=== PATIENT | female | born 1985 | race Caucasian/White ===

== ENCOUNTER 2017-07-01 09:30 | Outpatient (RCR) | payer MEDICAID, SELFPAY ==
--- NOTE | 2017-02-15 11:26 | HP.PTEVAL_ITS ---
Patient's Visit Information GLEN DESAI is a 31 year old F referred to Physical Therapy by Chela Sheridan DO with a diagnosis of L biceps tenodesis and subacromial decompression. Date of Evaluation: 02/15/17 Physical Therapist: Tamir Quesada PT, - Visit Plan Frequency: 2-3x /Week Duration: 2 Months Plan: L shoulder phase I protocal for 2 weeks, then progress to AROM and strengthening when appropriate. cp for pain - Subjective Subjective: DOS: 01/26/17. Pt reports having L shoulder pain since May of 2016. Pt reports she had multiple xrays and mRI's throughout. Pt notes she had multiple injections and PT prior to having this surgery. Pt reports she is glad to have had the surgery now. Pt reports only mild pain in the shoulder region. Most of her pain is in the L biceps region. Pt reports she has been doing nothing ex alves up to this point as she was given no HEP up to this point. Pt reports she has had a frozen shoulder in the past, and is worried to get another one. Pt has occasional T or N in L UE at this time, depending on how she moves her arm. Sig sleep diff secondary to pain. Pt is ambidextrious with UE 's. 4/10 at rest, 10/10 at worst (performing IADL's) - Pain L shoulder Pain Intensity (Out of 10): 4 Pain Intensity Range: 10 - Objective Neuro: Pt's L C6 and C6 dermatones are hyposensitive to light touch. Otherwise, B UE are WNL to light touch. ROM: R shoulder flex= 162, abd= 165, ER= 65, IR WNL. L shoulder PROM flex= 80, abd= 30, ER= 15. Observation: Incisions healing well. No signs of infection. MMT: R UE 5/5 throughout. L shoulder not tested - Goals Goal 1:: Decrease L shoulder pain x 50% to aid with sleep Goal Time Frame: 6-8 Weeks Goal 2:: Increase L shoulder strength x 1 grade to aid with IADL's Goal Time Frame: 6-8 Weeks Goal 3:: Increase L shoulder ROM flex and abd to equal R shoulder to aid with IADL's Goal Time Frame: 6-8 Weeks Goal 4:: I with HEP Goal Time Frame: 6-8 Weeks - Rehabilitation Potential Physical Therapy Diagnosis: L shoulder pain, weakness, and decreased ROM secondary to L biceps tenodesis Rehabilitation Potential: Good - Anticipated Interventions Patient/Client Instruction: Educate patient on: Condition, Plan of Care For the Purpose of:: To improve self management Therapeutic Exercise to Include: Strength training, Endurance training, Postural training, Flexibilty training, Passive ROM, Active ROM, Scapular Strength/Stabilization For the Purpose of:: To decrease pain, To increase ROM, To improve muscle performance and motor function Cryotherapy (ice pack, ice massage): Yes For the Purpose of:: To decrease pain Thank you for the opportunity to evaluate your patient. For Medicare and Medicare HMO plans, please review the plan of care and approve it. It will need to be FAXED BACK to us at [phone] for Medicare purposes. Please let me know if there are questions or concerns regarding this plan of care. Physician Signature: Date:
--- NOTE | 2017-07-01 10:15 | HP.PTDCSUM ---
HP - PT D/C Summary It has been my pleasure to treat GLEN DESAI under orders from Chela Sheridan DO, for the diagnosis of L biceps tenodesis and subacromial decompression for a total of 29 visit(s). Discharge Date: Please see the following information for a summary of their discharge status. - Subjective Subjective: Pt reports she had all of her testing done to confirm TOS this date. Pt reports no improvements through this date - Pain L shoulder Pain Intensity (Out of 10): 8 - Overall Improvement % Improvement: 50 - Objective Objective/Function: L shoulder pain is still 8/10. ROM is limited to 90 degrees with flex and abd in AROM. Strength is 2/5. Pt is I with HEP - Goals Goal 1:: Decrease L shoulder pain x 50% to aid with sleep Goal Progress: Not Progressing Goal 2:: Increase L shoulder strength x 1 grade to aid with IADL's Goal Progress: Not Progressing Goal 3:: Increase L shoulder ROM flex and abd to equal R shoulder to aid with IADL's Goal Progress: Not Progressing Goal 4:: I with HEP Goal Progress: Goal Met - Plan Plan: Discontinue - D/C Information If there are questions or concerns regarding this patient's physical therapy, please feel free to call me at [phone]. Thank you for the referral of this patient. Sincerely, Tamir Quesada, PT,
== END 2017-07-01 19:00 | disposition home or self-care (01) ==
LOC: PT 09:30
PROVIDERS: Family Provider Family Medicine; PCP Family Medicine; Visit Provider Orthopaedic Surgery
DX: M75.22 Bicipital tendinitis, left shoulder (principal)
CPT/HCPCS: 97110; 97140; 97161; 97530

== ENCOUNTER 2017-09-06 12:16 | Emergency (ER) | payer MEDICAID, SELFPAY ==
[2017-09-06 12:17] VITALS: BP 141/92; PULSE 72; RESP 16; TEMP 36.9; O2SAT 99; BMI 34.1
--- NOTE | 2017-09-06 12:30 | ED.VISSUMM ---
- ER Visit Summary Date of Service: 09/06/17 Chief Complaint: Left shoulder pain History of Present Illness: The patient is a 32 F who has left shoulder pain. She has had this chronically but recently has been getting worse. It sharp. She had a history of a biceps tendon tear that was repaired by Dr. Sheridan. She has had pain ever since then but today it is worse. She tried ibuprofen without any relief. She has seen multiple specialists after her surgery due to the continued pain but there is no diagnosis. Physical Examination: Vital signs reviewed. Left shoulder is tender over the bicipital groove. No bony tenderness. She has decreased range of motion secondary to pain. Color of the left arm is the same as the right. Sensation pulses are intact Test Results: None indicated Emergency Department Course and Treatment: She will be treated with Toradol here. I will give her Dolobid for home. She needs to follow-up with orthopedics for further testing. I do not feel any x-rays are needed as there is no new trauma. Treatment Plan: [] Disposition: Discharge Impression: Left shoulder pain This note was generated with [employer] dictation software. It may contain incorrect words, spelling, and punctuation that were not noted in review of the chart prior to signing ED Disposition - Plan for ED Patient: Chief Complaint: Upper Extremity Injury Referrals: Scot Hunt MD [Primary Care Provider] -
--- NOTE | 2017-09-06 12:31 | ED.DEP ---
ED Disposition - Plan for ED Patient: Disposition: Home or Assisted Living Chief Complaint: Upper Extremity Injury Instructions: ED Shoulder Pain [facility] Prescriptions: Diflunisal [Dolobid] 500 mg PO TID #21 tab Referrals: Scot Hunt MD [Primary Care Provider] -
[2017-09-06] MEDS: Ketorolac 60 MG/2 ML Vial IM (12:41)
== END 2017-09-06 13:41 | disposition home or self-care (01) ==
PROVIDERS: Emergency Provider Emergency Medicine; Family Provider Internal Medicine; PCP Internal Medicine
DX: M25.512 Pain in left shoulder (principal); G89.29 Other chronic pain; J45.909 Unspecified asthma, uncomplicated; E78.00 Pure hypercholesterolemia, unspecified; F43.10 Post-traumatic stress disorder, unspecified; Z79.899 Other long term (current) drug therapy
CPT/HCPCS: 96372; 99281

== ENCOUNTER 2017-11-23 10:00 | Outpatient (RCR) | payer MEDICAID, SELFPAY ==
--- NOTE | 2017-10-19 15:52 | HP.PTEVAL_ITS ---
Patient's Visit Information GLEN DESAI is a 32 year old F referred to Physical Therapy by Isiah Mcarthur MD with a diagnosis of L shoulder pain. Date of Evaluation: 10/19/17 Physical Therapist: Tamir Quesada PT, - Visit Plan Frequency: 2-3x /Week Duration: 4-6 Weeks Plan: L shoulder AROM ex's, pulleys, rot cuff strengthening, scap stab, UBE, and HEP - Subjective Subjective: Pt reports she has had L shoulder pain for 1 1/2 years. Pt reports she had surgery to repair a SLAP tear in L shoulder and arthroscopy to clean shoulder out. Pt reports she has never really gotten better from that. Pt reports she has been taking pain management for the past several months, but the meds have made her sick. R hand dom. occasional T or N in L shoulder depending on how she moves it. Pt reports she has an MRI on October 26 for her L shoulder. sleep diff secondary to pain. Pt reports she is limited from any overhead lifting. 8/10 at rest, and pain is constant - Pain L shoulder Pain Intensity (Out of 10): 8 - Objective Neuro: B UE sensation WNL to light touch. B bicepital reflex= 2/3. Palpation: Pt is very tender throughout the distribution of the rot cuff test. ROM: R shoulder flex= 165, abd= 170, ER= 65, IR WNL; L shoulder flex= 40, abd= 20, ER= 10, IR severely limited. MMT: L shoulder 2-/5 throughout and painful with all testing. R shoulder 5/5. Special tests: unable to perform secondary to limited ROM - Goals Goal 1:: Decrease L shoulder pain x 50% to aid with sleep Goal Time Frame: 4-6 Weeks Goal 2:: Increase L shoulder strength x 1 grade to aid with IADL's Goal Time Frame: 4-6 Weeks Goal 3:: Increase L shoulder flex and abd ROM x 50 degrees to aid with overhead lifting Goal Time Frame: 4-6 Weeks Goal 4:: I with HEP Goal Time Frame: 4-6 Weeks - Rehabilitation Potential Physical Therapy Diagnosis: L shoulder pain, weakness, and limited ROM secondary to rot cuff pathology Rehabilitation Potential: Good - Anticipated Interventions Patient/Client Instruction: Educate patient on: Condition, Plan of Care For the Purpose of:: To improve self management Therapeutic Exercise to Include: Strength training, Endurance training, Flexibilty training, Active ROM, Scapular Strength/Stabilization For the Purpose of:: To decrease pain, To increase ROM, To improve muscle performance and motor function Cryotherapy (ice pack, ice massage): Yes Thank you for the opportunity to evaluate your patient. For Medicare and Medicare HMO plans, please review the plan of care and approve it. It will need to be FAXED BACK to us at [phone] for Medicare purposes. Please let me know if there are questions or concerns regarding this plan of care. Physician Signature: Date:
--- NOTE | 2017-11-23 10:36 | HP.PTDCSUM ---
HP - PT D/C Summary It has been my pleasure to treat GLEN DESAI under orders from Isiah Mcarthur MD, for the diagnosis of L shoulder pain for a total of 11 visit(s). Discharge Date: Please see the following information for a summary of their discharge status. - Subjective Subjective: Pt feels like she is still the same. No improvements - Pain L shoulder Pain Intensity (Out of 10): 8 - Objective Objective/Function: L shoulder pain 8/10. L shoulder MMT: L shoulder is grossly 4-/5 in available range and is sore with all tests. L shoulder ROM: flex= 92, abd= 50, ER= 15, IR severely limited. I with HEP. Pt is not progressing well toward Rx goals - Goals Goal 1:: Decrease L shoulder pain x 50% to aid with sleep Goal Progress: Not Progressing Goal 2:: Increase L shoulder strength x 1 grade to aid with IADL's Goal Progress: Not Progressing Goal 3:: Increase L shoulder flex and abd ROM x 50 degrees to aid with overhead lifting Goal Progress: Not Progressing Goal 4:: I with HEP Goal Progress: Goal Met - Plan Plan: Discontinue and RTD - D/C Information If there are questions or concerns regarding this patient's physical therapy, please feel free to call me at [phone]. Thank you for the referral of this patient. Sincerely, Tamir Quesada, PT,
== END 2017-11-23 19:00 | disposition home or self-care (01) ==
LOC: PT 10:00
PROVIDERS: Family Provider Internal Medicine; PCP Internal Medicine; Visit Provider Anesthesiology
DX: M25.512 Pain in left shoulder (principal)
CPT/HCPCS: 97035; 97110; 97161; 97530

== ENCOUNTER 2018-02-03 09:38 | Emergency (ER) | payer MEDICAID, SELFPAY ==
[2018-02-03 09:39] VITALS: BP 141/87; PULSE 95; RESP 18; TEMP 36.4; O2SAT 100; BMI 34.2
--- NOTE | 2018-02-03 09:53 | ED.VISSUMM ---
- ER Visit Summary Date of Service: 02/03/18 Chief Complaint: Right shoulder injury History of Present Illness: The patient is a 32 F with history of complex regional pain syndrome and prior orthopedic injury presents with right shoulder injury. Patient states that she was wrestling with her children. She states that her son, who is 150 pounds, knocked her over. She landed on the bed directly on her right shoulder. She did not strike her head. She denies loss of consciousness. She does describe a lot of tenderness over the shoulder joint. She had diminished range of motion secondary to pain. Physical Examination: Exam is relatively unremarkable. There is a well being female no acute distress. Examination of the shoulder, patient does have some tenderness over the right AC joint. There is no tenderness on the clavicle. She does have diminished range of motion of the shoulder secondary to pain. There is no evidence of bicep injury. Her axillary nerve is preserved. There is no gross laxity of the shoulder. The skin is intact. Pulses are normal distally. Test Results: [] Emergency Department Course and Treatment: The patient is mostly tender over her AC joint. I did obtain plain films of the shoulder. There is no acute fracture. She does have some calcific tendinitis. I do feel that this is more likely an AC joint separation. The patient be placed in a sling. She will be given 2 days of analgesics and will be continued on anti-inflammatories. She will be given outpatient follow-up with orthopedics. Treatment Plan: [] Disposition: Discharge Impression: 1. Right AC joint separation This note was generated with [employer] dictation software. It may contain incorrect words, spelling, and punctuation that were not noted in review of the chart prior to signing ED Disposition - Plan for ED Patient: Chief Complaint: Upper Extremity Injury Instructions: ED Sprain AC Joint Prescriptions: Hydrocodone Bitart/Apap 5-325 [[place] 5MG-325MG] 1 tab PO Q6H PRN PRN 3 Days #6 tab PRN Reason: Pain Naproxen [Naprosyn] 500 mg PO BID PRN #20 tab Referrals: Meera Dietrich MD [Primary Care Provider] - Chela Sheridan DO [STAFF PHYSICIAN] -
[2018-02-03] MEDS: HYDROcodone Bitartrate/Apap 5/325 Tablet PO (10:02)
--- NOTE | 2018-02-03 10:20 | RAD_ITS ---
STUDY: X-RAY - RIGHT SHOULDER REASON FOR EXAM: Female, 32 years old. Pain status post trauma TECHNIQUE: 2 view(s) of the shoulder. COMPARISON: None. FINDINGS: Normal glenohumeral articulation. Normal acromioclavicular joint. Normal acromion. Normal humeral head and visualized proximal humerus. There is periarticular soft tissue calcification consistent with a calcific tendinitis. There is no demonstrated fracture. Normal visualized pulmonary apex. RAD/Shoulder min 2 Views IMPRESSION: No fracture. Calcific tendinopathy of the rotator cuff. Electronically Signed: Mitchel Gilbert MD at 11:00 EDT , Service support ,
== END 2018-02-03 11:12 | disposition home or self-care (01) ==
LOC: ED 10:03
PROVIDERS: Emergency Provider Emergency Medicine; Family Provider Internal Medicine; PCP Internal Medicine
DX: S43.101A Unspecified dislocation of right acromioclavicular joint, initial encounter (principal); M75.31 Calcific tendinitis of right shoulder; W03.XXXA Other fall on same level due to collision with another person, initial encounter; Y93.72 Activity, wrestling; Y92.9 Unspecified place or not applicable; J45.909 Unspecified asthma, uncomplicated; Z79.899 Other long term (current) drug therapy; Z72.0 Tobacco use
CPT/HCPCS: 73030; 99283

== ENCOUNTER → 2018-02-20 11:28 | Outpatient (CLI) | payer MEDICAID, SELFPAY ==
--- NOTE | 2018-02-20 11:30 | RAD_ITS ---
STUDY: X-RAY - RIGHT SHOULDER REASON FOR EXAM: Female, 32 years old. Shoulder pain. Axillary view only TECHNIQUE: 1 view(s) of the shoulder. COMPARISON: None. FINDINGS: No acute findings noted on single axillary view only. RAD/Shoulder One View IMPRESSION: As above Electronically Signed: Jas Lopez DO at 10:07 EDT Tel , Service support ,
== END ==
PROVIDERS: Family Provider Internal Medicine; PCP Internal Medicine; Referring Provider Physician Assistant; Visit Provider Physician Assistant
DX: M25.511 Pain in right shoulder (principal)
CPT/HCPCS: 73020

== ENCOUNTER 2018-03-13 10:30 | Outpatient (RCR) | payer MEDICAID, SELFPAY ==
--- NOTE | 2018-03-01 10:20 | HP.PTEVAL_ITS ---
Patient's Visit Information GLEN DESAI is a 32 year old F referred to Physical Therapy by HOLLI Conn with a diagnosis of R rot cuff calcific tendonits. Date of Evaluation: 03/01/18 Physical Therapist: Tamir Quesada, PT, - Visit Plan Frequency: 2x /Week Duration: 2 Weeks Plan: Postural edu, rot cuff strengthening, scap stab ex's, UBE - Subjective Subjective: Pt reports she fell on her r shoulder 4 weeks ago after being tackled by her speciql needs child. Pt reports she went to the ER and had an xray. Pt reports the xrays revealed AC sprain and calcific tendinosis of the R rot cuff. Pt reports her pain has not improved since the DOI. Pt reports she can not lift overhead, dry her hair, and has sig difficulty with lifting heavy objects or cleaning her house. Pt reports she has sleep diff secondary to R shoulder pain. Pt reports she uses MH, CP, and ibuprophen to aid with decreasing her pain. Pt reports she hopes to just be able to decrease some of her pain with Rx. - Pain R shoulder Pain Intensity (Out of 10): 6 Pain Intensity Range: 10 - Objective Neuro: B UE sensation is WNL to light touch. B bicepital reflex= 2/3. Palpation: Pt is very sore to the lateral aspect of R shoulder near supraspinatus insertion. No obvious deformity. ROM: L shoulder flex= 125, abd= 105, ER= 5, IR WNL; R shoulder flex= 65, abd= 55, ER= 30, IR Mod limited. MMT: B UE's are grossly 2-/5 throughout. Special testing: Pos empty can sign. - Goals Goal 1:: I with HEP Goal Time Frame: 2 Weeks - Rehabilitation Potential Physical Therapy Diagnosis: Pt has R shoulder pain, weakness, and limited ROM secondary to R shoulder calcific tendonitis Rehabilitation Potential: Good - Anticipated Interventions Patient/Client Instruction: Educate patient on: Condition, Plan of Care For the Purpose of:: To improve self management Therapeutic Exercise to Include: Strength training, Endurance training, Postural training, Scapular Strength/Stabilization For the Purpose of:: To decrease pain, To increase ROM, To improve muscle performance and motor function Cryotherapy (ice pack, ice massage): Yes Ultrasound (thermal/non thermal): Yes For the Purpose of:: To decrease pain Thank you for the opportunity to evaluate your patient. For Medicare and Medicare HMO plans, please review the plan of care and approve it. It will need to be FAXED BACK to us at [phone] for Medicare purposes. Please let me know if there are questions or concerns regarding this plan of care. Physician Signature: Da te:
--- NOTE | 2018-03-13 11:33 | HP.PTDCSUM ---
HP - PT D/C Summary It has been my pleasure to treat GLEN DESAI under orders from HOLLI Conn, for the diagnosis of R rot cuff calcific tendonits for a total of 4 visit(s). Discharge Date: Please see the following information for a summary of their discharge status. - Subjective Subjective: No changes at this time - Pain R shoulder Pain Intensity (Out of 10): 8 - Objective Objective/Function: R shoulder pain ranges from 8/10 to 10/10. R shoulder ROM: flex= 105, abd= 90, ER= 30, IR minimally limited. R shoulder MMT: flexion, abduction, and IR= 4-/5 in available ROM. ER= 3/5 in available ROM - Goals Goal 1:: I with HEP - Plan Plan: Discontinue secondary to lack of progress - D/C Information If there are questions or concerns regarding this patient's physical therapy, please feel free to call me at [phone]. Thank you for the referral of this patient. Sincerely, Tamir Quesada, PT,
== END 2018-03-13 19:00 | disposition home or self-care (01) ==
LOC: PT 10:30
PROVIDERS: Family Provider Internal Medicine; PCP Internal Medicine; Referring Provider Physician Assistant; Visit Provider Physician Assistant
DX: S43.51XD Sprain of right acromioclavicular joint, subsequent encounter (principal)
CPT/HCPCS: 97035; 97110; 97162; 97530

== ENCOUNTER → 2018-05-18 10:51 | Outpatient (CLI) | payer MEDICAID, SELFPAY ==
--- NOTE | 2018-05-18 11:03 | MRI_ITS ---
STUDY: MRI RIGHT SHOULDER REASON FOR EXAM: Right shoulder/arm pain for over a month, fall. TECHNIQUE: Standardized fat and water weighted pulse sequences were obtained in all 3 orthogonal planes. COMPARISON: None. FINDINGS: There is mild supraspinatus tendinosis (T2 coronal images 13-15) without discrete tendon tear. Normal infraspinatus tendon. Normal subscapularis tendon. Normal teres minor tendon. Normal supraspinatus muscle. Normal infraspinatus muscle. Normal subscapularis muscle. Normal teres minor muscle. There is a minimal volume of fluid in the glenohumeral joint extending into the bicipital tendon sheath. Normal humeral head and visualized proximal humerus. Normal biceps labral complex. Normal intracapsular long biceps tendon. Normal labrum. Normal capsulo- ligamentous complex. Normal acromioclavicular articulation. There is a Type I morphology (flat undersurface), with a neutral orientation. There is no subacromial-subdeltoid bursal fluid. Normal visualized coracohumeral and coracoacromial ligaments. Normal deltoid muscle. Normal trapezius muscle. MRI/Upper Ext Joint Only(Routine) IMPRESSION: Mild supraspinatus tendinosis without demonstrated rotator cuff tear. Electronically Signed: Gilmer Day MD at 12:36 EST Tel , Service support ,
== END ==
PROVIDERS: Family Provider Internal Medicine; PCP Internal Medicine; Referring Provider Physician Assistant; Visit Provider Physician Assistant
DX: M75.41 Impingement syndrome of right shoulder (principal)
CPT/HCPCS: 73221

== ENCOUNTER 2018-05-30 01:21 | Emergency (ER) | payer MEDICAID, SELFPAY ==
[2018-05-30 01:22] VITALS: BP 137/114; PULSE 94; RESP 16; TEMP 36.6; O2SAT 100; BMI 37.2
--- NOTE | 2018-05-30 01:23 | ED.RN ---
CALLED FOR EKG PER RN REQUEST, PULLED OLD EKGS FOR
--- NOTE | 2018-05-30 01:36 | EKG12_ITS ---
Test Reason : CP Blood Pressure : / mmHG Vent. Rate : 094 BPM Atrial Rate : 094 BPM P-R Int : 158 ms QRS Dur : 088 ms QT Int : 358 ms P-R-T Axes : 047 014 020 degrees QTc Int : 447 ms Normal sinus rhythm Normal ECG Confirmed by LELA NIXON, RUBI ([id number]), photographic editor SHARON MARTINEZ ([id number]) on 05/31/2018 1:39:32 PM Referred By: DANIE Confirmed By:RUBI VOGEL MD
--- NOTE | 2018-05-30 01:37 | RAD_ITS ---
STUDY: X-RAY CHEST REASON FOR EXAM: Female, 32 years old. Chest pain. TECHNIQUE: Frontal and lateral views of the chest. COMPARISON: 04/16/2014. FINDINGS: The lungs are clear and expanded. There is no demonstrated pleural abnormality. Normal size heart. Normal mediastinum and sherry. Normal visualized pulmonary arteries. Normal visualized aortic arch and descending thoracic aorta. There are mild multilevel degenerative changes of the visualized thoracic spine. Normal visualized ribs, clavicles, and shoulders. There is no demonstrated abnormality of the visualized soft tissue structures of the upper abdomen. RAD/Chest PA and Lateral IMPRESSION: No evidence for acute cardiopulmonary pathology. Electronically Signed: Junaid Stephen MD at 2:19 EST , Service support ,
[2018-05-30 01:45] LABS: Absolute Neutrophil Count 4.5 X10^3/uL (2.0-7.7); Basophil# 0.02 X10^3/uL; Basophil% 0.3 % (0-1); Eosinophil# 0.06 X10^3/uL; Eosinophils% 0.8 % (0-5); Hematocrit 42.5 % (37-47); Hemoglobin 13.7 g/dl (12.0-15.0); Lymphocyte % 32.8 % (19-41); Mean Corp Hgb Conc 32.2 g/gl (32-36); Mean Corpuscular Hgb 28.2 pg (27.0-32.0); Mean Corpuscular Volume 87.6 fL (81-99); Mean Platelet Vol. 10.7 fl (6.2-12.0); Monocyte# 0.35 X10^3/uL; Monocyte% 4.8 % (0-10); Neutrophil # 4.48 X10^3/uL (2.7-7.7); Neutrophil % 61.2 % (47-70); POSITIVE COUNT NO; POSITIVE DIFFERENTIAL NO; POSITIVE MORPHOLOGY NO; Platelet Count 165 K/mm3 (150-450); RBC Distribution Width CV 13.7 % (11.6-14.6); RBC Distribution Width SD 43.6 fl (35.1-43.9); Red Blood Count 4.85 M/mm3 (4.2-5.4); White Blood Count 7.3 K/mm3 (4.4-11.0)
[2018-05-30 01:46] VITALS: O2SAT 98
[2018-05-30] MEDS: Ondansetron 4 MG/2 ML Vial IV (01:46)
[2018-05-30] MEDS: Morphine 4 MG/ML Syringe IV (01:48)
[2018-05-30 01:58] LABS: Anion Gap 8 (5-15); BUN 7 mg/dL (7-18); BUN/Creat Ratio 9.3 RATIO (10-20); Calcium,Total 8.3 mg/dL (8.5-10.1); Chloride 105 mmol/L (98-107); Creatinine, Serum 0.75 mg/dL (0.55-1.02); EST Glomerular Filtration Rate 93 mL/min (>60); Est Glom Filt Rate - Afr Amer 113 mL/min (>60); Estimated Creatinine Clearance 95.11 ml/min; Glucose 140 mg/dL (74-106); Potassium 3.4 mmol/L (3.5-5.1); Sodium Level 138 mmol/L (136-145)
--- NOTE | 2018-05-30 02:39 | EKG12_ITS ---
Test Reason : REPEAT Blood Pressure : / mmHG Vent. Rate : 069 BPM Atrial Rate : 069 BPM P-R Int : 168 ms QRS Dur : 086 ms QT Int : 384 ms P-R-T Axes : 047 021 007 degrees QTc Int : 411 ms Sinus rhythm with marked sinus arrhythmia Otherwise normal ECG Confirmed by LELA NIXON, RUBI ([id number]), associate entertainment editor SHARON MARTINEZ ([id number]) on 05/31/2018 1:39:47 PM Referred By: DANIE Confirmed By:RUBI VOGEL MD
[2018-05-30] MEDS: Mag Hydrox/Al Hydrox/Simeth 30 ML UDC PO (02:50)
[2018-05-30 02:52] VITALS: BP 147/92; PULSE 77; RESP 18; O2SAT 96
--- NOTE | 2018-05-30 04:04 | ED.VISSUMM ---
- ER Visit Summary Date of Service: 05/30/18 Chief Complaint: Chest pain History of Present Illness: The patient is a 32 F who presents with chest pain. She states that she was having heartburn all day intermittently. About an hour ago she developed more of a pressure-like pain in the center of her chest radiating towards her left shoulder. She felt dizzy and nauseated. She states she felt a little bit short of breath. She also had some diarrhea. She took 2 nitroglycerin at home without relief. She also noted that her blood pressure was high. She called EMS and was given aspirin in route. She has a history of hyperlipidemia and anxiety and panic disorder. She had a cardiac catheterization in 2007 which she believes was normal. She has a history of tachycardia for which she is on beta-leonora for. Physical Examination: Initial blood pressure 137/114, improved on repeat, vitals otherwise normal Heart is regular rate and rhythm Lungs are clear Abdomen soft nontender nondistended Extremities nontender without edema 2+ symmetric radial pulses Test Results: EKG shows sinus rhythm at a rate of 94. No acute ischemic changes. This overall appears similar to prior with some inferior T wave flattening. Repeat EKG shows sinus rhythm with T wave inversions in lead III similar to prior no acute ischemic changes. Labs normal with negative troponin and negative delta troponin. Chest x-ray shows no acute pathology. Emergency Department Course and Treatment: Patient was initially given morphine and Zofran. She had mild improvement of symptoms. She was given a GI cocktail. Her MICHELINE risk score is 1. Heart score is 3. Given that she is complaining of heartburn all day I believe this is more likely related to a gastrointestinal pathology. She was advised to follow-up with her primary care physician. She is agreeable to this plan. She was instructed on signs and symptoms to monitor for and conditions which should prompt return here to the emergency department for reevaluation. Treatment Plan: [] Disposition: Discharge Impression: Chest pain This note was generated with [employer] dictation software. It may contain incorrect words, spelling, and punctuation that were not noted in review of the chart prior to signing ED Disposition - Plan for ED Patient: Chief Complaint: Chest Pain Referrals: Meera Dietrich MD [Primary Care Provider] -
--- NOTE | 2018-05-30 04:07 | ED.DCSUM_ITS ---
- ER Visit Summary Date of Service: 05/30/18 Chief Complaint: Chest pain History of Present Illness: The patient is a 32 F who presents with chest pain. She states that she was having heartburn all day intermittently. About an hour ago she developed more of a pressure-like pain in the center of her chest radiating towards her left shoulder. She felt dizzy and nauseated. She states she felt a little bit short of breath. She also had some diarrhea. She took 2 nitroglycerin at home without relief. She also noted that her blood pressure was high. She called EMS and was given aspirin in route. She has a history of hyperlipidemia and anxiety and panic disorder. She had a cardiac catheterizat ion in 2007 which she believes was normal. She has a history of tachycardia for which she is on beta-leonora for. Physical Examination: Initial blood pressure 137/114, improved on repeat, vitals otherwise normal Heart is regular rate and rhythm Lungs are clear Abdomen soft nontender nondistended Extremities nontender without edema 2+ symmetric radial pulses Test Results: EKG shows sinus rhythm at a rate of 94. No acute ischemic changes. This overall appears similar to prior with some inferior T wave flattening. Repeat EKG shows sinus rhythm with T wave inversions in lead III similar to prior no acute ischemic changes. Labs normal with negative troponin and negative delta troponin. Chest x-ray shows no acute pathology. Emergency Department Course and Treatment: Patient was initially given morphine and Zofran. She had mild improvement of symptoms. She was given a GI cocktail. Her MICHELINE risk score is 1. Heart score is 3. Given that she is complaining of heartburn all day I believe this is more likely related to a gastrointestinal pathology. She was advised to follow-up with her primary care physician. She is agreeable to this plan. She was instructed on signs and symptoms to monitor for and conditions which should prompt return here to the emergency department for reevaluation. Treatment Plan: [] Disposition: Discharge Impression: Chest pain This note was generated with [employer] dictation software. It may contain incorrect words, spelling, and punctuation that were not noted in review of the chart prior to signing ED Disposition - Plan for ED Patient: Chief Complaint: Chest Pain Referrals: Meera Dietrich MD [Primary Care Provider] -
--- NOTE | 2018-05-30 04:07 | ED.DEP ---
ED Disposition - Plan for ED Patient: Chief Complaint: Chest Pain Instructions: ED Chest Pain NonCardiac Referrals: Meera Dietrich MD [Primary Care Provider] -
[2018-05-30 04:11] VITALS: BP 109/75; PULSE 67; RESP 16; O2SAT 95
--- OUTSIDE RECORDS SUMMARY | 2018-08-01 06:16 | XMS RPT_ITS ---
:1985 Author Organization OHIP Support Name Relationship Address Phone [facility], JOSE M Unavailable [address] + [place] [address] UE Unavailable Unavailable Unavailable SCAGGS, JOSE M Unavailable [address] + [place] [address] UE Unavailable Unavailable Unavailable SCAGGS, JOSE M Unavailable [address] + [place] [address] UE Unavailable Unavailable Unavailable SCAGGS, JOSE M Unavailable [address] + [place] [address] UE Unavailable Unavailable Unavailable SCAGGS, JOSE M Unavailable [address] + [place] [address] UE Unavailable Unavailable Unavailable SCAGGS, JOSE M Unavailable [address] + [place] [address] UE Unavailable Unavailable Unavailable SCAGGS, JOSE M Unavailable [address] + [place] [address] UE Unavailable Unavailable Unavailable SCAGGS, JOSE M Unavailable [address] + [place] [address] UE Unavailable Unavailable Unavailable SCAGGS, JOSE M Unavailable [address] + [place] [address] UE Unavailable Unavailable Unavailable UE Unavailable Unavailable Unavailable SCAGGS, JOSE M Unavailable [address] + [place] [address] SCAGGS, JOSE M Unavailable [address] + [place] [address] UE Unavailable Unavailable Unavailable SCAGGS, JOSE M Unavailable Unavailable + [place] [address] SCAGGS, JOSE M Unavailable Unavailable + [place] [address] UE Unavailable Unavailable Unavailable SCHETS, JOSE M Unavailable [address] + [place] [address] UE Unavailable Unavailable Unavailable GORDON JOSE M Unavailable [address] + [place] [address] UE Unavailable Unavailable Unavailable Care Team Providers Name Role Phone ANTHONY COTA Attending Unavailable SEAN CHAIREZ Referring Unavailable ANTHONY COTA Referring Unavailable FARIVAR, RASHAUN (FEL) Referring Unavailable FARIVAR, RASHAUN (FEL) Attending Unavailable ANTHONY COTA Referring Unavailable LI, YUEBING Attending Unavailable FARIVAR, RASHAUN (FEL) Referring Unavailable LI, YUEBING Referring Unavailable GANTA, KOKI Attending Unavailable ROMERO DEGROOT Attending Unavailable GANTA, KOKI Referring Unavailable JENN DEMARCO ([facility]) Attending Unavailable FARZAD LATHAM Attending Unavailable GANTA, KOKI Attending Unavailable GANTA, KOKI Referring Unavailable ALLEN TOBAR Attending Unavailable TAWNYA COY ([facility]) Attending Unavailable GANTA, KOKI Referring Unavailable GANTA, KOKI Attending Unavailable AMBER BECKER Attending Unavailable DIGNA YADAV ([facility]) Referring Unavailable Wayt Eduardo Attending Unavailable Ganta, Koki Referring Unavailable Ganta, Koki Primary Care Unavailable Saurabh Humphreys Attending Unavailable Hasmukh Fofana Attending Unavailable Ganta, Koki Referring Unavailable Ganta, Koki Primary Care Unavailable Santana Duenas Attending Unavailable WaytEduardo Attending Unavailable Ganta, Koki Referring Unavailable Wayt, Eduardo Attending Unavailable Ganta, Koki Referring Unavailable Wayt, Eduardo Attending Unavailable Ganta, Koki Referring Unavailable Wayt, Eduardo Attending Unavailable Ganta, Koki Primary Care Unavailable Wayt, Eduardo Referring Unavailable Wayt, Eduardo Attending Unavailable Wayt, Eduardo Referring Unavailable Ganta, Koki Primary Care Unavailable Lyubov, Sameh Attending Unavailable Lyubov, Sameh Referring Unavailable Ganta, Koki Primary Care Unavailable Romulo Reynoso Attending Unavailable Ganta, Koki Primary Care Unavailable Chela Sheridan Attending Unavailable Marilee Scot Primary Care Unavailable WaytEduardo Attending Unavailable Wayt, Eduardo Referring Unavailable Ganta, Koki Primary Care Unavailable PROBLEMS PROBLEMS DATE TYPE CONDITION / CODE ATTENDING STATUS SOURCE 05/04/2018 Unknown G56.01 - Carpal tunnel Eduardo Naqvi Active [place] syndrome, right upper Community limb / G56.01(ICD-10) Hospital Repository 03/14/2018 Unknown S43.51XD - Sprain of Eduardo Naqvi Active [place] right Community acromioclavicular Hospital joint, subsequent Repository encounter / S43.51XD(ICD-10) 03/03/2018 Active Other assisted NA Active [facility] (current) drug therapy [facility] Main / Z79.899(ICD-10) [facility] Repository 02/20/2018 Unknown M25.511 - Pain in Eduardo Naqvi Active [place] right shoulder / Community M25.511(ICD-10) Hospital Repository 02/03/2018 Unknown S43.109A - Unspecified Yulissa, Active [place] dislocation of [facility] unspecified Hospital acromioclavicular Repository joint, initial encounter / S43.109A(ICD-10) 06/22/2013 Active 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, (HOSIERY KNITTER) Clinic Main unspecified cervical [facility] region / Repository M50.30(ICD-10) 06/22/2013 Active Other cervical disc TAWNYA COY Active [facility] displacement, ([facility] KNITTER) Clinic Main unspecified cervical [facility] region / Repository M50.20(ICD-10) 11/03/2010 Active Cervicalgia / TAWNYA COY Active [facility] M54.2(ICD-10) (HOSIERY KNITTER) Clinic Main [facility] Repository 11/24/2017 Unknown M25.512 - Pain in left Isiah Mcarthur Active [place] shoulder / Community M25.512(ICD-10) Hospital Repository 09/16/2017 Active Unknown / UNK(Unknown) SCARCELLA, Active [place] ROMERO B Clinic Main [facility] Repository 08/11/2017 Active Unspecified NA Active [place] disturbances of skin Clinic Main sensation / [facility] R20.9(ICD-10) Repository 07/07/2017 Unknown M75.22 - Bicipital Chicorelli, Active [place] tendinitis, left [facility] shoulder / Hospital M75.22(ICD-10) Repository 06/30/2017 Active Body mass index (bmi) NA Active [facility] 30.0-30.9, adult / Clinic Main Z68.30(ICD-10) [facility] Repository 06/30/2017 Active Brachial plexus NA Active [place] disorders / Clinic Main G54.0(ICD-10) [facility] Repository PROCEDURES PROCEDURES No Procedure Records FoundRESULTS RESULTS 12 LEAD ELECTROCARDIOGRAM Observed: 05/31/2018 Status: F Source: [place] 1:40 PM [facility] REPOSITORY [facility] Cardiovascular Services [address] [place] [address] 12 Lead EKG 05/30/18 0126 MR#: [id number] Acct: [id number] Name: BRIA WITT Rep #: [id number] : 1985 32 From: Andrez Ballesteros MD Attending Dr: Status: DEP ER Ordering Dr: Saurabh Humphreys MD Date: 05/30/18 Location: ED Sex: F C Admitted: Test Reason : CP Blood Pressure : / mmHG Vent. Rate : 094 BPM Atrial Rate : 094 BPM P-R Int : 158 ms QRS Dur : 088 ms QT Int : 358 ms P-R-T Axes : 047 014 020 degrees QTc Int : 447 ms Normal sinus rhythm Normal ECG Confirmed by LELA NIXON, ANDREZ ([id number]), supervising editor trailer SHARON MARTINEZ ([id number]) on 05/31/2018 1:39:32 PM Referred By: DANIE Confirmed By:ANDREZ BALLESTEROS MD 05/31/18 1339 Date Andrez Ballesteros MD CC: Koki Worthington MD; Saurabh Humphreys MD Signed 12 LEAD ELECTROCARDIOGRAM Observed: 05/31/2018 Status: F Source: [place] 1:40 PM [facility] REPOSITORY [facility] Cardiovascular Services [address] [place] [address] 12 Lead EKG 05/30/18 0258 MR#: [id number] Acct: [id number] Name: BRIA WITT Rep #: [id number] : 1985 32 From: Andrez Ballesteros MD Attending Dr: Status: DEP ER Ordering Dr: Saurabh Humphreys MD Date: 05/30/18 Location: ED Sex: F C Admitted: Test Reason : REPEAT Blood Pressure : / mmHG Vent. Rate : 069 BPM Atrial Rate : 069 BPM P-R Int : 168 ms QRS Dur : 086 ms QT Int : 384 ms P-R-T Axes : 047 021 007 degrees QTc Int : 411 ms Sinus rhythm with marked sinus arrhythmia Otherwise normal ECG Confirmed by LELA NIXON, ANDREZ ([id number]), supervising editor trailer SHARON MARTINEZ ([id number]) on 05/31/2018 1:39:47 PM Referred By: DANIE Confirmed By:ANDREZ BALLESTEROS MD 05/31/18 1339 Date Andrez Ballesteros MD CC: Koki Worthington MD; Saurabh Humphreys MD Signed DISCHARGE INSTRUCTION Observed: 05/30/2018 Status: F Source: [place] 4:07 AM [facility] REPOSITORY [facility] Medical Records Department [address] [place] [address] Discharge Instruction 05/30/18406 MR#: [id number] Acct: [id number] Name: BRIA WITT Rep #: [id number] : 1985 32 From: Saurabh Humphreys MD PCP: Koki Worthington MD Status: REG ER ED Disposition - Plan for ED Patient: Chief Complaint: Chest Pain Instructions: ED Chest Pain NonCardiac Referrals: Koki Worthington MD [Primary Care Provider] - What to do if you have Problems For any increased pain, shortness of breath, bleeding, nausea or vomiting, chest pain, or any unexpected problems, contact your Primary Care Provider. Call [facility] ([phone]) or report to the closest Emergency Room. Call 911 if necessary. 05/30/18406 <Electronically signed by Saurabh Humphreys MD> Date Saurabh Humphreys MD Cosigner Signature (If Indicated): Date CC: Koki Worthington MD EMERGENCY DEPARTMENT Observed: 05/30/2018 Status: F Source: [place] SUMMARY 4:07 AM [facility] REPOSITORY [facility] Medical Records Department [address] [place] [address] Emergency Department Summary 05/30/18 0404 MR#: [id number] Acct: [id number] Name: BRIA WITT Rep #: [id number] : 1985 32 From: Saurabh Humphreys MD PCP: Koki Worthington MD Status: REG ER - ER Visit Summary Date of Service: 05/30/18 Chief Complaint: Chest pain History of Present Illness: The patient is a 32 F who presents with chest pain. She states that she was having heartburn all day intermittently. About an hour ago she developed more of a pressure-like pain in the center of her chest radiating towards her left shoulder. She felt dizzy and nauseated. She states she felt a little bit short of breath. She also had some diarrhea. She took 2 nitroglycerin at home without relief. She also noted that her blood pressure was high. She called EMS and was given aspirin in route. She has a history of hyperlipidemia and anxiety and panic disorder. She had a cardiac catheterization in 2007 which she believes was normal. She has a history of tachycardia for which she is on beta-leonora for. Physical Examination: Initial blood pressure 137/114, improved on repeat, vitals otherwise normal Heart is regular rate and rhythm Lungs are clear Abdomen soft nontender nondistended Extremities nontender without edema 2+ symmetric radial pulses Test Results: EKG shows sinus rhythm at a rate of 94. No acute ischemic changes. This overall appears similar to prior with some inferior T wave flattening. Repeat EKG shows sinus rhythm with T wave inversions in lead III similar to prior no acute ischemic changes. Labs normal with negative troponin and negative delta troponin. Chest x-ray shows no acute pathology. Emergency Department Course and Treatment: Patient was initially given morphine and Zofran. She had mild improvement of symptoms. She was given a GI cocktail. Her MICHELINE risk score is 1. Heart score is 3. Given that she is complaining of heartburn all day I believe this is more likely related to a gastrointestinal pathology. She was advised to follow-up with her primary care physician. She is agreeable to this plan. She was instructed on signs and symptoms to monitor for and conditions which should prompt return here to the emergency department for reevaluation. Treatment Plan: [] Disposition: Discharge Impression: Chest pain This note was generated with [employer] dictation software. It may contain incorrect words, spelling, and punctuation that were not noted in review of the chart prior to signing ED Disposition - Plan for ED Patient: Chief Complaint: Chest Pain Referrals: Koki Worthington MD [Primary Care Provider] - What to do if you have Problems For any increased pain, shortness of breath, bleeding, nausea or vomiting, chest pain, or any unexpected problems, contact your Primary Care Provider. Call [facility] ([phone]) or report to the closest Emergency Room. Call 911 if necessary. 05/30/18 0407 <Electronically signed by Saurabh Humphreys MD> Date Saurabh Humphreys MD Cosigner Signature (If Indicated): Date CC: Koki Worthington MD TROPONIN-I Collected: 05/30/2018 Status: F Source: [place] 3:32 AM [facility] REPOSITORY TYPE CODE TESTS RESULT OUT OF RANGE REFERENCE UNITS LAB L501.4010 <0.045 ng/mL Normal < 0.015 TROPONIN-I Result Comment: TROPONIN-I EXPECTED VALUES <0.045 Negative 0.045 - 0.590 Consistent with Cardiac Damage > OR = 0.600 Critical Value Not every elevated troponin is indicative of NC. These values should be used with clinical judgement in examining the patient's clinical picture for diagnosis. To establish a diagnosis of NC versus myocardial injury, there must be a demonstrated rise and/or fall in the troponin values, in addition to ischemic symptoms, EKG changes, new regional wall motion abnormality, and/or angiographical evidence. PLEASE NOTE: REFERENCE RANGES EDITED 17 Performed By: #### L501.4010 #### [facility] Laboratory [address] [place], [address] CHEST PA AND LATERAL Observed: 05/30/2018 Status: F Source: [place] 1:37 AM [facility] REPOSITORY [facility] Imaging Services [address] [place] [address] Chest PA and Lateral MR#: [id number] Acct: [id number] Name: BRIA WITT Rep #: [id number] : 1985 F 32 From: Junaid Stephen MD PCP: Koki Worthington MD Status: REG ER Study: Chest PA and Lateral Date of Exam: 05/30/18 Exam# [id number] Ordering Dr: Saurabh Humphreys MD STUDY: X-RAY CHEST REASON FOR EXAM: Female, 32 years old. Chest pain. TECHNIQUE: Frontal and lateral views of the chest. COMPARISON: 04/16/2014. FINDINGS: The lungs are clear and expanded. There is no demonstrated pleural abnormality. Normal size heart. Normal mediastinum and sherry. Normal visualized pulmonary arteries. Normal visualized aortic arch and descending thoracic aorta. There are mild multilevel degenerative changes of the visualized thoracic spine. Normal visualized ribs, clavicles, and shoulders. There is no demonstrated abnormality of the visualized soft tissue structures of the upper abdomen. RAD/Chest PA and Lateral IMPRESSION: No evidence for acute cardiopulmonary pathology. Electronically Signed: Junaid Stephen MD at 2:19 EST , Service support , CC: Koki Worthington MD; Saurabh Humphreys MD Aids Social Worker: Signed CBC W/DIFF, AUTOMATED Collected: 05/30/2018 Status: F Source: [place] 1:30 AM [facility] REPOSITORY TYPE CODE TESTS RESULT OUT OF RANGE REFERENCE UNITS LAB L100.1000 4.4-11.0 K/mm3 Normal WBC 7.3 LAB L100.1200 4.2-5.4 M/mm3 Normal RBC 4.85 LAB L100.1300 12.0-15.0 g/dl Normal HGB 13.7 LAB L100.1400 37-47 % Normal HCT 42.5 LAB L100.1500 81-99 fL Normal MCV 87.6 LAB L100.1600 27.0-32.0 pg Normal MCH 28.2 LAB L100.1700 32-36 g/gl Normal MCHC 32.2 LAB L100.1810 11.6-14.6 % Normal RDW CV 13.7 LAB L100.1820 35.1-43.9 fl Normal RDW SD 43.6 LAB L100.1900 150-450 K/mm3 Normal PLT 165 LAB L100.2000 6.2-12.0 fl Normal MPV 10.7 LAB L100.2100 47-70 % Normal NEUT% 61.2 LAB L100.2200 19-41 % Normal LY% 32.8 LAB L100.2300 0-10 % Normal MONO% 4.8 LAB L100.2400 0-5 % Normal EO% 0.8 LAB L100.2500 0-1 % Normal BASO% 0.3 LAB L100.2550 0.0-0.9 % Normal IM GRAN % 0.100 Result Comment: IG% - Immature Granulocytes (promyelocytes, myelocytes and metamyelocytes) > 1% indicates that a LEFT SHIFT is Present. LAB L100.2620 2.0-7.7 X10 3/uL Normal Absolute Neut 4.5 LAB L100.2720 0.83-4.51 X10 3/ul Normal Absolute Lymph 2.40 Performed By: #### L100.0100 #### [facility] [address] [place], [place], [id number] BASIC METABOLIC Collected: 05/30/2018 Status: F Source: [place] PROFILE (BMP) 1:30 AM [facility] REPOSITORY TYPE CODE TESTS RESULT OUT OF RANGE REFERENCE UNITS LAB L501.0100 74-106 mg/dL High GLU 140 Result Comment: Fasting Glucose result greater than or equal to 126 mg/dL suggests DIABETES MELLITUS per A.D.A. criteria. Please note revised GLUCOSE reference range effective 2017. LAB L501.1000 7-18 mg/dL Normal BUN 7 LAB L501.1100 0.55-1.02 mg/dL Normal CREAT,SERUM 0.75 Result Comment: The validity of the calculated GFR AND GFRAA in patients over 70 years has not been determined. Clinical correlation is essential. LAB L501.1110 >60 mL/min Normal EST GFR 93 Result Comment: Non- GFR Calc LAB L501.1115 >60 mL/min Normal EST GFR - AA 113 Result Comment: GFR Calc LAB L501.1255 ml/min Normal Estimated CRCL 95.11 LAB L501.1300 10-20 RATIO Low BUN/CRE 9.3 LAB L501.2200 8.5-10 mg/dL Low .1 CA 8.3 LAB L501.5300 136-14 mmol/L Normal 5 NA 138 LAB L501.5600 3.5-5. mmol/L Low 1 K 3.4 LAB L501.5900 98-107 mmol/L Normal CL 105 LAB L501.6100 21.0-3 mmol/L Normal 2.0 CO2 25.0 LAB L501.6200 5-15 Normal GAP 8 Performed By: #### L500.2500, L501.4010 #### [facility] Laboratory [address] [place], [address] TROPONIN-I Collected: 05/30/2018 Status: F Source: [place] 1:30 AM [facility] REPOSITORY TYPE CODE TESTS RESULT OUT OF RANGE REFERENCE UNITS LAB L501.4010 <0.045 ng/mL Normal < 0.015 TROPONIN-I Result Comment: TROPONIN-I EXPECTED VALUES <0.045 Negative 0.045 - 0.590 Consistent with Cardiac Damage > OR = 0.600 Critical Value Not every elevated troponin is indicative of NC. These values should be used with clinical judgement in examining the patient's clinical picture for diagnosis. To establish a diagnosis of NC versus myocardial injury, there must be a demonstrated rise and/or fall in the troponin values, in addition to ischemic symptoms, EKG changes, new regional wall motion abnormality, and/or angiographical evidence. PLEASE NOTE: REFERENCE RANGES EDITED 17 Performed By: #### L500.2500, L501.4010 #### [facility] [address] [place], [address] ORTHOPEDIC VISIT Observed: 05/26/2018 Status: F Source: [place] REPORT 5:03 PM [facility] REPOSITORY [facility] [address] [place] [address] OFFICE VISIT Date of Service: 05/26/18 MR#: [id number] Acct: [id number] Name: BRIA WITT Rep #: [id number] : 1985 Provider: HOLLI Naqvi Age/Sex: 32/F Location: [facility] [place] Status: Signed Intake Intake Visit Reasons: RIGHT SHOULDER Is patient in pain?: Yes Allergies adenosine Allergy (Verified 03/23/18 11:58) Other bee venom protein (honey bee) Allergy (Verified 03/23/18 11:58) Unknown amoxicillin trihydrate [From Augmentin] Adverse Reaction (Verified 03/23/18 11:58) Nausea potassium clavulanate [From Augmentin] Adverse Reaction (Verified 03/23/18 11:58) Nausea Sulfa (Sulfonamide Antibiotics) Adverse Reaction (Verified 03/23/18 11:58) Nausea birds Allergy (Uncoded 02/03/18 09:41) Unknown steroids Allergy (Uncoded 02/03/18 09:41) Unknown stress test dye Allergy (Uncoded 02/03/18 09:41) Unknown Medications Clonazepam [Klonopin] 0.5 mg PO 4X/DAY PRN PRN 12/31/13 [History Confirmed 02/03/18] Pravastatin Sodium [Pravachol] 20 mg PO QHS 12/31/13 [History Confirmed 02/03/18] Nadolol [Corgard (Beta Leonora)] 5 - 10 mg PO DAILY PRN 07/27/14 [History Confirmed 02/03/18] Ibuprofen [Motrin] 800 mg PO TID PRN PRN 01/21/17 [History Confirmed 02/03/18] Levofloxacin [Levaquin] 500 mg PO DAILY 02/03/18 [History Confirmed 02/03/18] Naproxen [Naprosyn] 500 mg PO BID PRN #20 tab 02/03/18 [Rx] meloxicam 15 mg tablet 15 mg PO DAILY #21 tab 05/26/18 [Rx Confirmed 05/26/18] PFSH Medical History Acid reflux (Acute) Anemia (Acute) Arthritis (Acute) Asthma (Acute) Back pain (Acute) Chronic headaches (Acute) Depression (Acute) Heart disease (Acute) Hemorrhoids (Acute) Hyperlipidemia (Acute) Incontinence (Acute) Limb weakness (Acute) Lung disease (Acute) Ovarian cyst (Acute) Right axillary hidradenitis (Acute) Seasonal allergies (Acute) Shoulder pain (Acute) nonhealing hidradenitis ulcer right axillary area (Acute) HTN (hypertension) (Chronic) Surgical History Biceps muscle tear (Acute) History of shoulder surgery (Acute) S/P wrist surgery (Acute) removal of lymph nodes (Acute) Family History Other Cancer FH: mental illness Heart disease Lung disease Social History Smoking Status: Former smoker alcohol intake: never HPI RIGHT SHOULDER: Details: BRIA WITT is a 32 year old F here today for MRI f/u on right shoulder, she did have a recent fall but she landed on her left side. She continues to have pain all over the shoulder primarily in anterior shoulder with all ranges. Her MRI is here for review. Ortho Exam Right Shoulder Contralateral Normal: Yes Testing: Positive Hawkin's, Neer's, TTP Biceps, AROM-External Rotation at side 0-60 (40-45) and PROM-Forward Elevation 0-180 (160); negative TTP AC Joint, AROM-Forward Elevation 0-180 (140), Apprehension Test, Sulcus Sign or empty can Internal Rotation: L5 SHOULDER: Today in the office patient has no abnormalities on inspection of the shoulder. She has no localized or generalized swelling the shoulder. She has no ecchymosis/bruising, erythema, or other skin changes. Today in the office patient has a little better range of motion today (see above) than she did at her last visit. Abduction today in the office is 115-20 degrees. Passively can move for a little bit better today as well. There is still R impingement signs today. Biceps component has shown some improvement with some decrease in tenderness Assessment AND Plan Problems 1. Calcific tendinitis of right shoulder M75.31 2. Right supraspinatus tendinitis M75.91 Plan At this time we did discuss patient's MRI findings which show that she has some supra supraspinatus tendinosis as well as some small calcific tendinitis of the right shoulder. We discussed there is no evident tears in the rotator cuff and/or the labrum. At this time patient is too early to have an injection into the shoulder as it is not been 3 months yet. We are going to start her back in some physical therapy and will try a prescription strength anti-inflammatory at this time. I do need her to continue to ice and/or heat shoulder. Can use topical remedies such as Biofreeze or mineral ice in the meantime. We will see her back in 6-8 weeks after physical therapy. Could possibly go ahead with an injection at that time. All questions were answered at this time. This note was generated with [employer] software. It may contain incorrect words, spelling, and punctuation that were not noted in checking the note before signing. Medications New: Plan Detail Follow Up 6 Weeks Coding Level of Care Code Off vis,est,level 3 Diagnoses Calcific tendinitis of right shoulder M75.31 Right supraspinatus tendinitis M75.91 Laterality: right 05/26/18 1703 <Electronically signed by Eduardo DE LA GARZA> Date Eduardo DE LA GARZA Cosigner Signature: Date (if applicable) CC: UPPER EXT JOINT Observed: 05/18/2018 Status: F Source: [place] ONLY(ROUTINE) 11:03 AM [facility] REPOSITORY [facility] Imaging Services [address] [place] [address] Upper Ext Joint Only(Routine) MR#: [id number] Acct: [id number] Name: BRIA WITT Rep #: [id number] : 1985 F 32 From: Gilmer Day MD PCP: Koki Worthington MD Status: REG CLI Study: Upper Ext Joint Only(Routine) Date of Exam: 05/18/18 Exam# [id number] Ordering Dr: Eduardo Naqvi ADDENDUM by Gilmer Day MD on 05/23/18 at 1342 ADDENDUM Comparison radiographs dated 02/03/2018 and 02/20/2018 are now made available. There is a very small signal void in the distal supraspinatus tendon (proton-density coronal image 10) measuring 1 mm in length correlating with the very small focus of calcific tendinitis on radiographs. Electronically Signed: Gilmer Day MD at 13:42 EST Tel , Service support , 05/23/18 1342 Date cc: HOLLI Naqvi; Koki Worthington MD * Signed ADDENDUM by Gilmer Day MD on 05/23/18 at 1342 MRI/Upper Ext Joint Only(Routine) 05/23/18 1349 Date cc: HOLLI Naqvi; Koki Worthington MD * Signed STUDY: MRI RIGHT SHOULDER REASON FOR EXAM: Right shoulder/arm pain for over a month, fall. TECHNIQUE: Standardized fat and water weighted pulse sequences were obtained in all 3 orthogonal planes. COMPARISON: None. FINDINGS: There is mild supraspinatus tendinosis (T2 coronal images 13-15) without discrete tendon tear. Normal infraspinatus tendon. Normal subscapularis tendon. Normal teres minor tendon. Normal supraspinatus muscle. Normal infraspinatus muscle. Normal subscapularis muscle. Normal teres minor muscle. There is a minimal volume of fluid in the glenohumeral joint extending into the bicipital tendon sheath. Normal humeral head and visualized proximal humerus. Normal biceps labral complex. Normal intracapsular long biceps tendon. Normal labrum. Normal capsulo- ligamentous complex. Normal acromioclavicular articulation. There is a Type I morphology (flat undersurface), with a neutral orientation. There is no subacromial-subdeltoid bursal fluid. Normal visualized coracohumeral and coracoacromial ligaments. Normal deltoid muscle. Normal trapezius muscle. MRI/Upper Ext Joint Only(Routine) IMPRESSION: Mild supraspinatus tendinosis without demonstrated rotator cuff tear. Electronically Signed: Gilmer Day MD at 12:36 EST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 for Medicare purposes. Please let me know if there are questions or concerns regarding this plan of care. Physician Signature: Date: <Electronically signed by Tamir Quesada PT, ATC> 03/01/18 1020 CC: HOLLI Naqvi; Koki Worthington MD [facility] Signed For Medicare only, by signing this I certify the plan of care. Physicians Signature Date CNPTOUTREACH Observed: 02/28/2018 Status: COMPLETED Source: [place] 12:00 AM [facility] REPOSITORY Patient Outreach ([facility]) BRIA WITT ([id number]) 1985 F Date Time Provider Department 02/28/18 KOKI WORTHINGTON [facility] During your visit today, we recorded the following information about you: Allergies As of Date: 02/28/2018 Noted Allergy Reaction AUGMENTIN (AMOXICILLIN-POT CLAVUL*09/21/2010 11 - Vomiting ENVIRONMENTAL [Other] 01/06/2005 14 - Other: See Comments Comments: [employer] - hypersensitivity pneumonitis - Pulse Ox down to 50% FLAGYL (METRONIDAZOLE) 04/13/2012 2 - Rash PREDNISONE 01/01/2010 7 - Swelling Comments: Severe joint and spine pain and unable to move- able to have injections of joints, just not spine SILVADENE (SILVER SULFADIAZINE) 01/17/2008 5 - Intolerance Comments: Dizziness/nausea stress test IV liquid [Other] 09/14/2005 10 - Anaphylaxis Comments: HYPERVENTILATED, 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 adenosine SULFA (SULFONAMIDE ANTIBIOTICS) 02/20/2008 8 - GI Upset Date Reviewed: 12/29/2017 Reviewed by: Ev Ortez - Fully Assessed Visit Diagnosis:Medication management [Z79.899] Order(s):LIPID PANEL BASIC [SQLIPB] Order #: [id number] FUTURE Prescriptions as of 02/28/2018 Sig: NICOTINE 14 MG/24 HR DAILY TR* Apply 1 Patch as directed rashmi* VENTOLIN HFA 90 MCG/ACTUATION* Inhale 2 Puffs as instructed * NADOLOL 20 MG TABLET TAKE 1 TABLET BY MOUTH ONCE D* NITROGLYCERIN 0.4 MG SUBLINGU* Dissolve 1 tablet under the t* X AMITRIPTYLINE 10 MG TABLET Take 1 tablet by mouth daily * X TIZANIDINE 4 MG TABLET Take 1 tablet by mouth twice * PETROLATUM, WHITE-LANOLIN TOP* Apply 1 application to affect* X PRAVASTATIN 20 MG TABLET TAKE 1 TABLET BY MOUTH AT BED* NADOLOL 20 MG TABLET Take 20 mg by mouth as needed* SELENIUM SULFIDE 2.25 % SHAMP* Apply 1 application to affect* CLONAZEPAM 0.5 MG TABLET Take 1 tablet by mouth four t* LEVONORGESTREL 20 MCG/24 HR (* Inserted in office ALBUTEROL SULFATE 1.25 MG/3 M* Use 1 Ampule via nebulizer ev* COMPOUNDED PRESCRIPTION Mask and tubing to be used wi* CLARITIN ORAL Take by mouth. ALBUTEROL 90 MCG/ACTUATION AE* Inhale 2 Puffs as instructed * * VITAMIN,CALCIUM,MINE* TAKE ONE DAILY Problem List As Of Date 02/28/2018 Noted Resolved Asthma with exacerbation [J45.901] INVALID FOR* Dysthymic disorder [F34.1] More... Non-Healing Surgical Wound [T81.89XA] INVALID FOR*04/30/2009 Other Threatened Labor, Antepartum [O47.9] INVALID FOR*04/30/2009 Unspecified disorder of skin and subcutaneous t*INVALID FOR*07/15/2011 Benign neoplasm of skin of trunk, except scrotu*INVALID FOR*10/06/2010 Snoring [R06.83] INVALID FOR*07/15/2011 More... Anxiety State, Unspecified [F41.1] INVALID FOR* Genital warts [A63.0] INVALID FOR*07/15/2011 Thyroid nodule [E04.1] INVALID FOR* More... Cervical lymphadenopathy [R59.0] INVALID FOR*07/15/2011 Smoker [F17.200] INVALID FOR* Bronchitis [J40] INVALID FOR*09/03/2011 Hyperlipidemia, mixed [E78.2] INVALID FOR* More... Cervicalgia [M54.2] INVALID FOR* Pain in joint, shoulder region [M25.519] INVALID FOR* Headache [R51] INVALID FOR* Other and unspecified disc disorder of cervical*INVALID FOR*09/03/2011 More... Arrhythmia [I49.9] INVALID FOR* More... More... Obesity [E66.9] INVALID FOR* Iron deficiency anemia of [O99.019, D*INVALID FOR*02/18/2012 More... More... Vulvitis [N76.2] INVALID FOR* Vaginal discharge [N89.8] INVALID FOR*10/02/2013 Vaginitis and vulvovaginitis, unspecified [N76.*INVALID FOR* Abnormal uterine bleeding [N93.9] INVALID FOR* Cervical disc displacement [M50.20] INVALID FOR* DDD (degenerative disc disease), cervical [M50.*INVALID FOR* Chronic pain [G89.29] INVALID FOR* Hidradenitis [L73.2] Biliary dyskinesia [K82.8] INVALID FOR* Myofacial muscle pain [M79.18] INVALID FOR* GERD (gastroesophageal reflux disease) [K21.9] INVALID FOR* Palpitation [R00.2] INVALID FOR* Pain in left wrist [M25.532] INVALID FOR*02/17/2016 Pain in right wrist [M25.531] INVALID FOR*02/17/2016 Contusion of right wrist [S60.211A] INVALID FOR*02/17/2016 BMI 32.0-32.9,adult [Z68.32] INVALID FOR* Ulnar nerve compression [G56.20] INVALID FOR* DRUJ (distal radioulnar joint) sprain [S63.599A]INVALID FOR* Lateral epicondylitis of right elbow [M77.11] INVALID FOR* Encounter Status:Closed by SOPHIA PRODUSER on 03/31/18 ORTHOPEDIC VISIT Observed: 02/21/2018 Status: F Source: [place] REPORT 3:55 PM [facility] REPOSITORY [facility] Orthopaedics AND Sports Medicine [address] [place] [address] [address] [place] [address] OFFICE VISIT Date of Service: 02/20/18 MR#: [id number] Acct: [id number] Name: BRIA WITT Rep #: [id number] : 1985 Provider: HOLLI Naqvi Age/Sex: 32/F Location: [facility] Status: Signed Intake Intake Visit Reasons: RIGHT SHOULDER Allergies adenosine Allergy (Verified 02/03/18 09:41) Other bee venom protein (honey bee) Allergy (Verified 02/03/18 09:41) Unknown amoxicillin trihydrate [From Augmentin] Adverse Reaction (Verified 02/03/18 09:41) Nausea potassium clavulanate [From Augmentin] Adverse Reaction (Verified 02/03/18 09:41) Nausea Sulfa (Sulfonamide Antibiotics) Adverse Reaction (Verified 02/03/18 09:41) Nausea birds Allergy (Uncoded 02/03/18 09:41) Unknown steroids Allergy (Uncoded 02/03/18 09:41) Unknown stress test dye Allergy (Uncoded 02/03/18 09:41) Unknown Medications Clonazepam [Klonopin] 0.5 mg PO 4X/DAY PRN PRN 12/31/13 [History Confirmed 02/03/18] Pravastatin Sodium [Pravachol] 20 mg PO QHS 12/31/13 [History Confirmed 02/03/18] Nadolol [Corgard (Beta Leonora)] 5 - 10 mg PO DAILY PRN 07/27/14 [History Confirmed 02/03/18] Ibuprofen [Motrin] 800 mg PO TID PRN PRN 01/21/17 [History Confirmed 02/03/18] Levofloxacin [Levaquin] 500 mg PO DAILY 02/03/18 [History Confirmed 02/03/18] Naproxen [Naprosyn] 500 mg PO BID PRN #20 tab 02/03/18 [Rx] PFSH Medical History Acid reflux (Acute) Anemia (Acute) Arthritis (Acute) Asthma (Acute) Back pain (Acute) Chronic headaches (Acute) Depression (Acute) Heart disease (Acute) Hemorrhoids (Acute) Hyperlipidemia (Acute) Incontinence (Acute) Limb weakness (Acute) Lung disease (Acute) Ovarian cyst (Acute) Right axillary hidradenitis (Acute) Seasonal allergies (Acute) Shoulder pain (Acute) nonhealing hidradenitis ulcer right axillary area (Acute) HTN (hypertension) (Chronic) Surgical History Biceps muscle tear (Acute) History of shoulder surgery (Acute) S/P wrist surgery (Acute) removal of lymph nodes (Acute) Family History Other Cancer FH: mental illness Heart disease Lung disease Social History Smoking Status: Former smoker alcohol intake: never HPI RIGHT SHOULDER: Details: BRIA WITT is a 32 year old F here today for ED f/u on right shoulder pain, she states she was wrestling with her older son and landed directly on the lateral part of the right shoulder. She landed on her sons johnson size mattress (nothing hard). She has pain with all ranges and very little arom in any of them. She can passively flex to about 75. She has been using the sling nearly all the time other than when seated at rest and to drive. She states that she has burning sensation with elbow flexion but that she has been working on prom lying down and doing pendulums. No PT or injections. ROS Musc Reports joint pain, Reports stiffness, Reports limited joint movement, Reports as per HPI Ortho Exam Right Shoulder Contralateral Normal: No (She has decreased ROM in the left) Testing: Positive Hawkin's, Neer's, TTP Biceps and TTP AC Joint; negative AROM-Forward Elevation 0-180 (80), AROM-External Rotation at side 0-60 (30), PROM-Forward Elevation 0-180 (100) or PROM-External Rotation at 90 0-60 (45) Internal Rotation: Buttock SHOULDER: Patient has generalized pains in the shoulder. She is tender pretty much over the entire shoulder area (anterior, posterior, superior and lateral). There is no swelling in the shoulder and no other deformity or abnormalities noted. Assessment AND Plan Problems 1. Sprain of right acromioclavicular ligament, initial encounter S43.51XA 2. Acute pain of right shoulder M25.511 3. Impingement syndrome of right shoulder M75.41 Plan Patient has generalized tenderness of the shoulder with fall landing on a mattress. X-rays in the ER did not show any bony abnormalities at that time. She has limited ROM at this time (she has decreased ROM on the left as well from injury and RSD). 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 She needs to be icing and can take NSAID PRN. We will recheck her in 6-8 weeks after physical therapy. Can notify the office sooner with any changes or abnormalities. Orders Orders: Plan Detail Follow Up 6 Weeks Coding Level of Care Code Off vis,est,level 3 Diagnoses Sprain of right acromioclavicular ligament, initial encounter S43.51XA Encounter type: initial encounter Laterality: right Acute pain of right shoulder M25.511 Chronicity: acute Impingement syndrome of right shoulder M75.41 02/21/18 1555 <Electronically signed by Eduardo DE LA GARZA> Date Eduardo DE LA GARZA Cosigner Signature: Date (if applicable) CC: SHOULDER ONE VIEW Observed: 02/20/2018 Status: F Source: [place] 11:30 AM [facility] REPOSITORY [facility] Imaging Services [address] [place] [address] Shoulder One View MR#: [id number] Acct: [id number] Name: BRIA WITT Rep #: [id number] : 1985 F 32 From: Jas Lopez DO PCP: Koki Worthington MD Status: REG CLI Study: Shoulder One View Date of Exam: 02/20/18 Exam# [id number] Ordering Dr: Eduardo Naqvi STUDY: X-RAY - RIGHT SHOULDER REASON FOR EXAM: Female, 32 years old. Shoulder pain. Axillary view only TECHNIQUE: 1 view(s) of the shoulder. COMPARISON: None. FINDINGS: No acute findings noted on single axillary view only. RAD/Shoulder One View IMPRESSION: As above Electronically Signed: Jas Lopez DO at 10:07 EDT Tel , Service support , CC: HOLLI Naqvi; Koki Worthington MD Aids Social Worker: Signed EMERGENCY DEPARTMENT Observed: 02/03/2018 Status: F Source: [place] SUMMARY 3:26 PM [facility] Medical Records Department [address] [place] [address] Emergency Department Summary 02/03/18 0953 MR#: [id number] Acct: [id number] Name: BRIA WITT Rep #: [id number] : 1985 32 From: Santana Duenas MD PCP: Koki Worthington MD Status: DEP ER - ER Visit Summary Date of Service: 02/03/18 Chief Complaint: Right shoulder injury History of Present Illness: The patient is a 32 F with history of complex regional pain syndrome and prior orthopedic injury presents with right shoulder injury. Patient states that she was wrestling with her children. She states that her son, who is 150 pounds, knocked her over. She landed on the bed directly on her right shoulder. She did not strike her head. She denies loss of consciousness. She does describe a lot of tenderness over the shoulder joint. She had diminished range of motion secondary to pain. Physical Examination: Exam is relatively unremarkable. There is a well being female no acute distress. Examination of the shoulder, patient does have some tenderness over the right AC joint. There is no tenderness on the clavicle. She does have diminished range of motion of the shoulder secondary to pain. There is no evidence of bicep injury. Her axillary nerve is preserved. There is no gross laxity of the shoulder. The skin is intact. Pulses are normal distally. Test Results: [] Emergency Department Course and Treatment: The patient is mostly tender over her AC joint. I did obtain plain films of the shoulder. There is no acute fracture. She does have some calcific tendinitis. I do feel that this is more likely an AC joint separation. The patient be placed in a sling. She will be given 2 days of analgesics and will be continued on anti-inflammatories. She will be given outpatient follow- up with orthopedics. Treatment Plan: [] Disposition: Discharge Impression: 1. Right AC joint separation This note was generated with [employer] dictation software. It may contain incorrect words, spelling, and punctuation that were not noted in review of the chart prior to signing ED Disposition - Plan for ED Patient: Chief Complaint: Upper Extremity Injury Instructions: ED Sprain AC Joint Prescriptions: Hydrocodone Bitart/Apap 5-325 [Enola 5MG-325MG] 1 tab PO Q6H PRN PRN 3 Days #6 tab PRN Reason: Pain Naproxen [Naprosyn] 500 mg PO BID PRN #20 tab Referrals: Koki Worthington MD [Primary Care Provider] - Chela Sheridan DO [STAFF PHYSICIAN] - What to do if you have Problems For any increased pain, shortness of breath, bleeding, nausea or vomiting, chest pain, or any unexpected problems, contact your Primary Care Provider. Call [facility] ([phone]) or report to the closest Emergency Room. Call 911 if necessary. 02/03/18 2925 <Electronically signed by Santana Duenas MD> Date [facility] Signature (If Indicated): Date CC: Koki Worthington MD SHOULDER MIN 2 VIEWS Observed: 02/03/2018 Status: F Source: PETEY 9:48 AM [facility] REPOSITORY [facility] Imaging Services [address] [place] [address] Shoulder min 2 Views MR#: [id number] Acct: [id number] Name: BRIA WITT Rep #: [id number] : 1985 F 32 From: Mitchel Gilbert MD PCP: Koki Worthington MD Status: REG ER Study: Shoulder min 2 Views Date of Exam: 02/03/18 Exam# [id number] Ordering Dr: Santana Duenas MD STUDY: X-RAY - RIGHT SHOULDER REASON FOR EXAM: Female, 32 years old. Pain status post trauma TECHNIQUE: 2 view(s) of the shoulder. COMPARISON: None. FINDINGS: Normal glenohumeral articulation. Normal acromioclavicular joint. Normal acromion. Normal humeral head and visualized proximal humerus. There is periarticular soft tissue calcification consistent with a calcific tendinitis. There is no demonstrated fracture. Normal visualized pulmonary apex. RAD/Shoulder min 2 Views IMPRESSION: No fracture. Calcific tendinopathy of the rotator cuff. Electronically Signed: Mitchel Gilbert MD at 11:00 EDT , Service support , CC: Koki Worthington MD; Santana Duenas MD Aids Social Worker: Signed URGENT CARE VISIT Observed: 02/01/2018 Status: F Source: [place] REPORT 1:09 PM [facility] REPOSITORY [facility] [address] [place] [address] [address] [place] [address] OFFICE VISIT Date of Service: 02/01/18 MR#: [id number] Acct: [id number] Name: BRIA WITT Rep #: [id number] : 1985 Provider: Hasmukh DE LA GARZA Age/Sex: 32/F Location: [facility] Status: Signed Intake Vital Signs02/01/18 Height 5 ft 4 in Intake Visit Reasons: FEVER, COUGH, SORE THROAT Chief Complaint: Cough and fatigue Allergies adenosine Allergy (Verified 09/06/17 12:20) Other bee venom protein (honey bee) Allergy (Verified 02/01/18 12:08) Unknown amoxicillin trihydrate [From Augmentin] Adverse Reaction (Verified 09/06/17 12:20) Nausea potassium clavulanate [From Augmentin] Adverse Reaction (Verified 09/06/17 12:20) Nausea Sulfa (Sulfonamide Antibiotics) Adverse Reaction (Verified 09/06/17 12:20) Nausea birds Allergy (Uncoded 02/01/18 12:08) Unknown steroids Allergy (Uncoded 02/01/18 12:08) Unknown stress test dye Allergy (Uncoded 02/01/18 12:08) Unknown Medications Clonazepam [Klonopin] 0.5 mg PO 4X/DAY PRN PRN 12/31/13 [History Confirmed 02/01/18] Pravastatin Sodium [Pravachol] 20 mg PO QHS 12/31/13 [History Confirmed 02/01/18] Nadolol [Corgard (Beta Leonora)] 5 - 10 mg PO DAILY 07/27/14 [History Confirmed 02/01/18] Ibuprofen [Motrin] 800 mg PO TID PRN PRN 01/21/17 [History Confirmed 02/01/18] PFSH Medical History Acid reflux (Acute) Anemia (Acute) Arthritis (Acute) Asthma (Acute) Back pain (Acute) Chronic headaches (Acute) Depression (Acute) Heart disease (Acute) Hemorrhoids (Acute) Hyperlipidemia (Acute) Incontinence (Acute) Limb weakness (Acute) Lung disease (Acute) Ovarian cyst (Acute) Right axillary hidradenitis (Acute) Seasonal allergies (Acute) Shoulder pain (Acute) nonhealing hidradenitis ulcer right axillary area (Acute) HTN (hypertension) (Chronic) Surgical History Biceps muscle tear (Acute) History of shoulder surgery (Acute) S/P wrist surgery (Acute) removal of lymph nodes (Acute) Family History Other Cancer FH: mental illness Heart disease Lung disease Social History Smoking Status: Current every day smoker alcohol intake: never HPI HPI Chief Complaint: Cough and fatigue Details: BRIA WITT, is a 32 F who presents to the office today for initial evaluation approximately 1 week history of progressively worsening cough and fatigue. She has occasional chills and fever though states she does not have a thermometer at home to check her temperature. She notes having quit smoking approximately a month ago. She notes no dramatic weight gain or loss. She notes no complaints of sweats or rash or chest pains or shortness of breath, though reinforces her cough is persistent whether supine sitting or standing. She knows no other members and household smoke. She notes no other associated symptoms no other alleviating or aggravating factors. ROS Const Constitutional: No other (ROS negative x10 other than as noted above) Exam Const General: healthy appearing, no acute distress, cooperative (Though mildly warm to touch) Nutritional Appearance: obese Orientation: alert, awake, oriented x3 HENMT Head: normal to inspection Ears: hearing grossly normal bilaterally, external ears normal, TM's normal bilaterally, EAC's normal Nose: external nose normal, nares normal, septum normal, no nasal discharge Eyes General: appearance normal, both eyes and all related structures Neck Neck: normal visual inspection, full ROM, no lymphadenopathy, no meningeal signs, supple Neck mass: No Thyroid: thyroid normal Lymphatic: no lymphadenopathy noted Chest Chest palpation AND inspection: normal inspection of the chest Resp Effort AND Inspection: normal respiratory effort, able to speak in complete sentences, symmetric chest movement, cough Quality of cough: dry Auscultation: Bilateral: Clear to Auscultation, Inspiratory Wheezes, Expiratory Wheezes, Rhonchi (partially claering w/ cough) Cardio Palpation: normal PMI Rate: regular rate Rhythm: regular rhythm Heart Sounds: S1 normal, S2 normal, no gallops, no murmurs, no rubs Pulses: radial pulses present GI Inspection: normal to inspection Palpation: soft, no hepatosplenomegaly Skin General: no rashes or lesions noted Neuro General: alert, awake, oriented x3, gait normal Cognition: normal cognition Speech: speech normal Gait: normal gait Motor: muscle tone normal throughout Sensory Exam: no sensory deficits noted Psych Appearance: grossly normal Mental Status: mental status grossly normal Mood: congruent mood Affect: normal affect Speech and Movement: speech and movement normal Attitude: cooperative Thought Process: normal Thought Content: normal Judgment: judgment good Assessment AND Plan Problems 1. Asthmatic bronchitis with acute exacerbation J45.901 Plan Levaquin as prescribed today. Continue albuterol metered-dose inhaler as previously prescribed by PCP. Avoid tobacco smoke exposure. Follow-up PCP in 3-5 days should symptoms not improve emergency department sooner should symptoms worsen or any other concerns develop. Patient states acknowledging understanding all the above. This note was generated with [employer] software. It may contain incorrect words, spelling, and punctuation that were not noted in checking the note before signing. Medications Discontinued: Coding Level of Care Code Off vis,est,level 3 Diagnoses Asthmatic bronchitis with acute exacerbation J45.901 02/01/18 1309 <Electronically signed by Hasmukh DE LA GARZA> Date Hasmukh DE LA GARZA Cosigner Signature: Date (if applicable) CC: PROGRESS Observed: 12/29/2017 Status: COMPLETED Source: [place] 12:53 PM [facility] REPOSITORY HNO ID: [id number] Author: Tawnya Oseguera (Josef Coy Service: (none) Author Type: Nurse Practitioner Type: Progress Notes Filed: 12/29/2017 1:43 PM Note Text: SUBJECTIVE: Bria Witt presents to [facility] Pain Management Department for a followup appointment for Right arm pain. Since the last visit, Bria Oseguera Miryam states the pain has been constant. Current pain intensity is 8 on a scale of 0-10. Pain located in Right arm and Right shoulder area and radiates down the anterior arm. Pain described as radiating, sharp and shooting The patient Reports Weakness, numbness and tingling. Symptoms interfere with bathing, driving, cooking, household cleaning, reaching for shelves and lifting. Pain is exacerbated by unable to pinpoint exacerbating factors/positions. Pain is mitigated by medications, ice and heat. REVIEW OF SYSTEMS: Constitutional: (-) Fever (-) Night Sweats (-) Weight Gain (-) Weight Loss (-) Fatigue Cardiovascular: (-) Chest Pain (-) Palpitations (-) Lightheadedness (-) Swelling of Ankles (-) Hx Heart Surgery Respiratory: (-) Shortness of Breath (-) Cough (-) Wheezing (-) Snoring Gastrointestinal: (-) Incontinence (-) Abdominal Pain (-) Diarrhea (-) Constipation (-) Nausea/Vomiting (-) Heart Burn Endocrine: (-) Thyroid Disorder (-) Diabetes Hematologic: (-) Prolonged Bleeding (-) Easy Bruising Genitourinary: (-) Incontinence (-) Frequency (-) Urinary Urgency Skin: (-) Rashes (-) Itching (-) Other Lesions Neurologic: (-) Headache (-) Double Vision (-) Confusion (-) Paralysis Psychiatric: (-) Depression (-) Anxiety (-) Delusions (-) Hallucinations (-) Personal History of Alcohol or Substance Abuse (-) Family History of Alcohol or Substance Abuse OBJECTIVE: Pulse 78 Ht 5' 5 (1.65m) Wt 205 lb (93.0kg) SpO2 97% BMI 34.11 kg/(m2). PHYSICAL EXAMINATION: General appearance: Well appearing, in no acute distress, alert Skin: Skin color, texture, turgor normal, no rashes or lesions Neck: No pain to palpation over the cervical paraspinous muscles. No pain with neck flexion, extension, or lateral flexion Cardiovascular: Regular rate Lungs: Normal respiratory rate and rhythm Abdomen: Abdomen soft and non-tender. Back: Intact range of motion without pain reproduction. Spine: DeniesTenderness on palpation: Lumbar/Pelvic none Extremities: No deformities, edema, or skin discoloration. Good capillary refill. Left shoulder tenderness, decreased ROM in abduction and adduction Musculoskeletal: Bilateral upper and lower extremity strength is normal and symmetric. No atrophy or tone abnormalities are noted. Neuro: No loss of sensation is noted. Station and Gait: Normal stance, normal gait. Motor: Displays weakness of the left upper extremity Trigger points: none. ASSESSMENT: Assessment : Patient was diagnosed with CRPS in the left upper extremity by orthopedics He reports she had previous shoulder surgery and has developed a CRPS symptoms after She reports she is not a surgical candidate for any future surgeries on her left shoulder She is allergic to steroids therefore she cannot have any injections She is experienced numbness and tingling in the left upper extremity and also will have discoloration in the hand She has decreased range of motion and had done formal physical therapy in the past. She continues with home exercise program Patient reports her neck pain has been stable. Discussed the importance of daily exercise and stretching of the surgical region She has tried different medications in the past and reports that gabapentin, baclofen, Flexeril, Topamax, or ineffective Discussed a trial of Elavil and Zanaflex Discussed trying biofeedback. She has not tried acupuncture. Provided her with information on the integrative medicine program, discussed having her call the number listed to see if she would be a candidate for this program She reports she is involved in counseling and also takes Klonopin and Zoloft. She reports she is very fatigued Encounter Diagnosis ICD-10-CM 1. Cervical disc displacement M50.20 2. DDD (degenerative disc disease), cervical M50.30 3. Cervicalgia M54.2 PDMP website checked and validated. All prescriptions have been APPROPRIATELY filled. No suspicious activity was identified. 12/29/2017 by Ev Ortez Narcotic Agreement reviewed and signed?: N/A on December 29, 2017 Urine Panel: Lab Results Component Value Date Cannabinoid Quant, Urine <16 11/16/2012 Benzoylecognine Quant, Urine <24 11/16/2012 6-Acetylmorphine Quant, Urine <5 11/16/2012 Amphetamine Quant, Urine <11/16/2012 Methamphetamine Quant, Urine <8 11/16/2012 Buprenorphine Quant, Urine <11/16/2012 Norbuprenorphine Quant, Urine <11/16/2012 Methadone Quant, Urine <16 11/16/2012 EDDP Quant, Urine <11/16/2012 Tramadol Quant, Urine <25 11/16/2012 Desmethyltramadol Quant, Urine <11/16/2012 Fentanyl Quant, Urine <11/16/2012 Norfentanyl Quant, Urine <6 11/16/2012 Codeine Quant, Urine <11 11/16/2012 Morphine Quant, Urine <5 11/16/2012 Dihydrocodeine Quant, Urine 158 (H) 11/16/2012 Hydrocodone Quant, Urine 746 (H) 11/16/2012 Oxycodone Quant, Urine <5 11/16/2012 Hydromorphone Quant, Urine 280 (H) 11/16/2012 Oxymorphone Quant, Urine <5 11/16/2012 Creatinine,Ur Pain Stephens >50 11/16/2012 Urine pH, Pain Stephens 4-10 11/16/2012 Specific [place],Ur Pain Stephens 1.005-1.020 11/16/2012 Oxidants,Ur Negative 11/16/2012 Specimen Quality, Ur Pain Stephens Specimen quality results within acceptable limits. 11/16/2012 The pain panel was N/A PLAN: 1) start Elavil 10 mg at bedtime. Will trial ?1 month. Discussed that the medication can be titrated up 2) start Zanaflex 4 mg twice a day as needed. Will trial ?1 month 3) discussed that both Elavil and Zanaflex can cause drowsiness 4) patient has tried and failed gabapentin, baclofen, Flexeril, and Topamax 5) we discussed biofeedback and order has been placed. Will my chart message patient with a number to call to make an appointment 6) patient has completed physical therapy and continues with a home exercise program. 7) handout given for the integrative medicine program. Patient will call to see if she is a candidate 8) patient is allergic to steroids therefore no injections 9) RTC prn The above plan and management options were discussed at length with patient. Patient is in agreement with the above and verbalized understanding. Tawnya Coy, WENDY, HOSIERY KNITTER December 29, 2017 CNOV Observed: 12/29/2017 Status: COMPLETED Source: [place] 12:30 PM [facility] REPOSITORY Office Visit (PNMDNA) BRIA WITT ([id number]) 1985 F Date Time Provider Department 12/29/17 12:30 PM TAWNYA COY (VELVET) CHARISSE During your visit today, we recorded the following information about you: Pulse Weight Height 78/minute 93 kg 1.651 m Tawnya Oumar Coy APRN.CNP 12/29/2017 1:43 PM Signed SUBJECTIVE: Bria Witt presents to [facility] Pain [facility] Department for a followup appointment for Right arm pain. Since the last visit, Bria Witt states the pain has been constant. Current pain intensity is 8 on a scale of 0-10. Pain located in Right arm and Right shoulder area and radiates down the anterior arm. Pain described as radiating, sharp and shooting The patient Reports Weakness, numbness and tingling. Symptoms interfere with bathing, driving, cooking, household cleaning, reaching for shelves and lifting. Pain is exacerbated by unable to pinpoint exacerbating factors/positions. Pain is mitigated by medications, ice and heat. REVIEW OF SYSTEMS: Constitutional: (-) Fever (-) Night Sweats (-) Weight Gain (-) Weight Loss (-) Fatigue Cardiovascular: (-) Chest Pain (-) Palpitations (-) Lightheadedness (-) Swelling of Ankles (-) Hx Heart Surgery Respiratory: (-) Shortness of Breath (-) Cough (-) Wheezing (-) Snoring Gastrointestinal: (-) Incontinence (-) Abdominal Pain (-) Diarrhea (-) Constipation (-) Nausea/Vomiting (-) Heart Burn Endocrine: (-) Thyroid Disorder (-) Diabetes Hematologic: (-) Prolonged Bleeding (-) Easy Bruising Genitourinary: (-) Incontinence (-) Frequency (-) Urinary Urgency Skin: (-) Rashes (-) Itching (-) Other Lesions Neurologic: (-) Headache (-) Double Vision (-) Confusion (-) Paralysis Psychiatric: (-) Depression (-) Anxiety (-) Delusions (-) Hallucinations (-) Personal History of Alcohol or Substance Abuse (-) Family History of Alcohol or Substance Abuse OBJECTIVE: Pulse 78 Ht 5' 5 (1.65m) Wt 205 lb (93.0kg) SpO2 97% BMI 34.11 kg/(m2). PHYSICAL EXAMINATION: General appearance: Well appearing, in no acute distress, alert Skin: Skin color, texture, turgor normal, no rashes or lesions Neck: No pain to palpation over the cervical paraspinous muscles. No pain with neck flexion, extension, or lateral flexion Cardiovascular: Regular rate Lungs: Normal respiratory rate and rhythm Abdomen: Abdomen soft and non-tender. Back: Intact range of motion without pain reproduction. Spine: DeniesTenderness on palpation: Lumbar/Pelvic none Extremities: No deformities, edema, or skin discoloration. Good capillary refill. Left shoulder tenderness, decreased ROM in abduction and adduction Musculoskeletal: Bilateral upper and lower extremity strength is normal and symmetric. No atrophy or tone abnormalities are noted. Neuro: No loss of sensation is noted. Station and Gait: Normal stance, normal gait. Motor: Displays weakness of the left upper extremity Trigger points: none. ASSESSMENT: Assessment : Patient was diagnosed with CRPS in the left upper extremity by orthopedics He reports she had previous shoulder surgery and has developed a CRPS symptoms after She reports she is not a surgical candidate for any future surgeries on her left shoulder She is allergic to steroids therefore she cannot have any injections She is experienced numbness and tingling in the left upper extremity and also will have discoloration in the hand She has decreased range of motion and had done formal physical therapy in the past. She continues with home exercise program Patient reports her neck pain has been stable. Discussed the importance of daily exercise and stretching of the surgical region She has tried different medications in the past and reports that gabapentin, baclofen, Flexeril, Topamax, or ineffective Discussed a trial of Elavil and Zanaflex Discussed trying biofeedback. She has not tried acupuncture. Provided her with information on the integrative medicine program, discussed having her call the number listed to see if she would be a candidate for this program She reports she is involved in counseling and also takes Klonopin and Zoloft. She reports she is very fatigued Encounter Diagnosis ICD-10-CM 1. Cervical disc displacement M50.20 2. DDD (degenerative disc disease), cervical M50.30 3. Cervicalgia M54.2 PDMP website checked and validated. All prescriptions have been APPROPRIATELY filled. No suspicious activity was identified. 12/29/2017 by Ev Ortez Narcotic Agreement reviewed and signed?: N/A on December 29, 2017 Urine Panel: Lab Results Component Value Date Cannabinoid Quant, Urine <16 11/16/2012 Benzoylecognine Quant, Urine <24 11/16/2012 6-Acetylmorphine Quant, Urine <5 11/16/2012 Amphetamine Quant, Urine <5 11/16/2012 Methamphetamine Quant, Urine <8 11/16/2012 Buprenorphine Quant, Urine <20 11/16/2012 Norbuprenorphine Quant, Urine <20 11/16/2012 Methadone Quant, Urine <16 11/16/2012 EDDP Quant, Urine <6 11/16/2012 Tramadol Quant, Urine <25 11/16/2012 Desmethyltramadol Quant, Urine <20 11/16/2012 Fentanyl Quant, Urine <11/16/2012 Norfentanyl Quant, Urine <11/16/2012 Codeine Quant, Urine <11 11/16/2012 Morphine Quant, Urine <11/16/2012 Dihydrocodeine Quant, Urine 158 (H) 11/16/2012 Hydrocodone Quant, Urine 746 (H) 11/16/2012 Oxycodone Quant, Urine <11/16/2012 Hydromorphone Quant, Urine 280 (H) 11/16/2012 Oxymorphone Quant, Urine <11/16/2012 Creatinine,Ur Pain Stephens >50 11/16/2012 Urine pH, Pain Stephens 4-10 11/16/2012 Specific [place],Ur Pain Stephens 1.005-1.020 11/16/2012 Oxidants,Ur Negative 11/16/2012 Specimen Quality, Ur Pain Stephens Specimen quality results within acceptable limits. 11/16/2012 The pain panel was N/A PLAN: 1) start Elavil 10 mg at bedtime. Will trial ?1 month. Discussed that the medication can be titrated up 2) start Zanaflex 4 mg twice a day as needed. Will trial ?1 month 3) discussed that both Elavil and Zanaflex can cause drowsiness 4) patient has tried and failed gabapentin, baclofen, Flexeril, and Topamax 5) we discussed biofeedback and order has been placed. Will my chart message patient with a number to call to make an appointment 6) patient has completed physical therapy and continues with a home exercise program. 7) handout given for the integrative medicine program. Patient will call to see if she is a candidate 8) patient is allergic to steroids therefore no injections 9) RTC prn The above plan and management options were discussed at length with patient. Patient is in agreement with the above and verbalized understanding. Tawnya Coy APRN, HOSIERY KNITTER December 29, 2017 Referring Provider: SELF [[id number]] Allergies As of Date: 12/29/2017 Noted Allergy Reaction AUGMENTIN (AMOXICILLIN-POT CLAVUL*09/21/2010 11 - Vomiting ENVIRONMENTAL [Other] 01/06/2005 14 - Other: See Comments Comments: BIRD AND BEES - hypersensitivity pneumonitis - Pulse Ox down to 50% FLAGYL (METRONIDAZOLE) 04/13/2012 2 - Rash PREDNISONE 01/01/2010 7 - Swelling Comments: Severe joint and spine pain and unable to move- able to have injections of joints, just not spine SILVADENE (SILVER SULFADIAZINE) 01/17/2008 5 - Intolerance Comments: Dizziness/nausea stress test IV liquid [Other] 09/14/2005 10 - Anaphylaxis Comments: HYPERVENTILATED, 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Disp: 60 tabletRfl: 0 BIOFEEDBACK TRAINING,ANY MODALITY [11477OCD] Order #: [id number] Prescriptions as of 12/29/2017 Sig: NICOTINE 21 MG/24 HR DAILY TR* Apply 1 Patch as directed rashmi* DOXYCYCLINE MONOHYDRATE 100 M* Take 1 capsule by mouth twice* PETROLATUM, WHITE-LANOLIN TOP* Apply 1 application to affect* VENTOLIN HFA 90 MCG/ACTUATION* Inhale 2 Puffs as instructed * PRAVASTATIN 20 MG TABLET TAKE 1 TABLET BY MOUTH AT BED* NADOLOL 20 MG TABLET Take 20 mg by mouth as needed* SELENIUM SULFIDE 2.25 % SHAMP* Apply 1 application to affect* CLONAZEPAM 0.5 MG TABLET Take 1 tablet by mouth four t* NITROGLYCERIN 0.4 MG SUBLINGU* Dissolve 1 tablet under the t* LEVONORGESTREL 20 MCG/24 HR (* Inserted in office ALBUTEROL SULFATE 1.25 MG/3 M* Use 1 Ampule via nebulizer ev* COMPOUNDED PRESCRIPTION Mask and tubing to be used wi* CLARITIN ORAL Take by mouth. ALBUTEROL 90 MCG/ACTUATION AE* Inhale 2 Puffs as instructed * * VITAMIN,CALCIUM,MINE* TAKE ONE DAILY AMITRIPTYLINE 10 MG TABLET Take 1 tablet by mouth daily * TIZANIDINE 4 MG TABLET Take 1 tablet by mouth twice * Problem List As Of Date 12/29/2017 Noted Resolved Asthma with exacerbation [J45.901] INVALID FOR* Dysthymic disorder [F34.1] More... Non-Healing Surgical Wound [T81.89XA] INVALID FOR*04/30/2009 Other Threatened Labor, Antepartum [O47.9] INVALID FOR*04/30/2009 Unspecified disorder of skin and subcutaneous t*INVALID FOR*07/15/2011 Benign neoplasm of skin of trunk, except scrotu*INVALID FOR*10/06/2010 Snoring [R06.83] INVALID FOR*07/15/2011 More... Anxiety State, Unspecified [F41.1] INVALID FOR* Genital warts [A63.0] INVALID FOR*07/15/2011 Thyroid nodule [E04.1] INVALID FOR* More... Cervical lymphadenopathy [R59.0] INVALID FOR*07/15/2011 Smoker [F17.200] INVALID FOR* Bronchitis [J40] INVALID FOR*09/03/2011 Hyperlipidemia, mixed [E78.2] INVALID FOR* More... Cervicalgia [M54.2] INVALID FOR* Pain in joint, shoulder region [M25.519] INVALID FOR* Headache [R51] INVALID FOR* Other and unspecified disc disorder of cervical*INVALID FOR*09/03/2011 More... Arrhythmia [I49.9] INVALID FOR* More... More... Obesity [E66.9] INVALID FOR* Iron deficiency anemia of [O99.019, D*INVALID FOR*02/18/2012 More... More... Vulvitis [N76.2] INVALID FOR* Vaginal discharge [N89.8] INVALID FOR*10/02/2013 Vaginitis and vulvovaginitis, unspecified [N76.*INVALID FOR* Abnormal uterine bleeding [N93.9] INVALID FOR* Cervical disc displacement [M50.20] INVALID FOR* DDD (degenerative disc disease), cervical [M50.*INVALID FOR* Chronic pain [G89.29] INVALID FOR* Hidradenitis [L73.2] Biliary dyskinesia [K82.8] INVALID FOR* Myofacial muscle pain [M79.1] INVALID FOR* GERD (gastroesophageal reflux disease) [K21.9] INVALID FOR* Palpitation [R00.2] INVALID FOR* Pain in left wrist [M25.532] INVALID FOR*02/17/2016 Pain in right wrist [M25.531] INVALID FOR*02/17/2016 Contusion of right wrist [S60.211A] INVALID FOR*02/17/2016 BMI 32.0-32.9,adult [Z68.32] INVALID FOR* Ulnar nerve compression [G56.20] INVALID FOR* DRUJ (distal radioulnar joint) sprain [S63.599A]INVALID FOR* Lateral epicondylitis of right elbow [M77.11] INVALID FOR* Prescriptions ordered this encounter Disp Refills Start End AMITRIPTYLINE 10 MG TABLET 30 t* 0 12/29/2017 01/28/2018 Route: ORAL Sig: Take 1 tablet by mouth daily at bedtime. TIZANIDINE 4 MG TABLET 60 t* 0 12/29/2017 01/28/2018 Route: ORAL Sig: Take 1 tablet by mouth twice daily as needed. Encounter Status:Closed by TAWNYA COY on 12/29/17 PROGRESS Observed: 12/29/2017 Status: COMPLETED Source: [place] 9:33 AM [facility] [place] REPOSITORY HNO ID: [id number] Author: Allen Tobar Service: (none) Author Type: Physician Type: Progress Notes Filed: 12/29/2017 5:52 PM Note Text: PERTINENT CARDIAC HISTORY Palpitations - Ventricular arrhythmia HL Tobaccoism Chest pain - normal cath 2008 ADHERENCE TO GUIDELINES DONA-I or ARB for HF with prior LVEF<40 (NQF 0081) - N/A ASA or Plavix for ASHD (NQF 0067) - N/A Beta leonora for ASHD with prior NC or prior LVEF<40 (NQF 0070) - N/A Beta leonora for HF with prior LVEF<40 (NQF 0083) - N/A DONA-I or ARB for ASHD with DM or prior LVEF<40 (NQF 0066) - N/A Statin therapy for ASHD or FHL or DM - met BMI documented and plan if >25 (NQF 0421) - lifestyle recommendation form Tobacco use screening and referral (NQ 0028) - lifestyle recommendation form Recommendation for whole food, plant based diet - lifestyle recommendation form CLINICAL IMPRESSION/PLAN: Bria Witt is doing well. Her chest pain pattern is under good control. She's had fewer palpitations. I've encouraged her to use her nadolol on a more regular basis. She has been taking quarter of a tablet as needed. She states that she has eliminated junk food and fast food. She still drinking 3 coffees a day and I've asked her to cut down on this somewhat. This will help with palpitations. I will see her in 12 months, at which time she will have an echocardiogram for follow-up of her right ventricular abnormality. This was evaluated on MR and no pathology was found, but should be followed by echo as well. Written and verbal health teaching given to patient, patient verbalizes understanding and agrees with treatment plan. DIAGNOSIS FOR VISIT: Palpitations HISTORY OF PRESENT ILLNESS Bria Witt returns for follow-up of her palpitations. She reports that she has been doing relatively well. She is only used one nitroglycerin in the last year. She's had intermittent elevation of blood pressure and has been using her Corgard on a when necessary basis. Exercise tolerance has been stable. She's been under a lot of stress at home. She denies orthopnea. Her edema has been well controlled. She's had no syncope, TIAs, amaurosis or claudication. She has had minimal palpitations ALLERGIES: ALLERGIES Allergen Reactions - Augmentin [Amoxicil* Vomiting - Environmental [Othe* Other: See Comments BIRD AND BEES - hypersensitivity pneumonitis - Pulse Ox down to 50% - Flagyl [Metronidazo* Rash - Prednisone Swelling Severe joint and spine pain and unable to move- able to have injections of joints, just not spine - Silvadene [Silver S* Intolerance Dizziness/nausea - Stress Test Iv Liqu* Anaphylaxis HYPERVENTILATED, 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 adenosine - Sulfa (Sulfonamide * GI Upset CURRENT OUTPATIENT MEDICATIONS: nicotine (NICODERM CQ) 21 mg/24 hr Apply 1 Patch as directed every 24 hours. doxycycline monohydrate (MONODOX) 100 mg capsule Take 1 capsule by mouth twice daily. Petrolatum, White-Lanolin (VITAMIN A AND D DIAPER RASH) oint Apply 1 application to affected area three times daily. As needed to affected area. VENTOLIN HFA 90 mcg/actuation inhaler Inhale 2 Puffs as instructed every 4 hours as needed for Wheezing/Shortness of Breath. pravastatin (PRAVACHOL) 20 mg tablet TAKE 1 TABLET BY MOUTH AT BEDTIME nadolol (CORGARD) 20 mg tablet Take 20 mg by mouth as needed (as needed for elevated BP and HR). Selenium Sulfide 2.25 % sham Apply 1 application to affected area daily at bedtime. clonazePAM (KLONOPIN) 0.5 mg tablet Take 1 tablet by mouth four times daily. nitroglycerin sublingual (NITROQUICK) 0.4 mg SL tablet Dissolve 1 tablet under the tongue every 5 minutes as needed. levonorgestrel (MIRENA) 20 mcg/24 hr (5 years) IUD Inserted in office Albuterol Sulfate 1.25 mg/3 mL nebulizer solution Use 1 Ampule via nebulizer every 6 hours as needed. COMPOUNDED PRESCRIPTION Mask and tubing to be used with nebulizer machine. LORATADINE (CLARITIN ORAL) Take by mouth. albuterol 90 mcg/actuation Aero Inhale 2 Puffs as instructed every 4 hours as needed. [id number] TAB TAKE ONE DAILY PHYSICAL EXAMINATION: VITAL SIGNS: BP 106/75 Pulse 78 Wt 206 lb 11.2 oz (93.8kg) Chest: Clear to percussion and auscultation. Trachea is midline. Air entry is equal. Cardiac: Regular rhythm. S1 and S2 are normal. PMI is nondisplaced. There is a soft systolic ejection murmur. Carotids are brisk without bruits. JVP is less than 10 cm. Abdomen: Soft and nontender. There are no pulsatile masses or bruits. No liver enlargement. Bowel sounds are active. Extremities: No edema. Pulses are intact and symmetrical. Recent EKG showed sinus rhythm and was within normal limits. Recent labs were reviewed. Renal function is normal. LDL was 114. TSH is normal. Electronically Signed: Allen Tobar MD December 29, 2017 9:33 AM CC: KOKI WORTHINGTON MD CNOV Observed: 12/29/2017 Status: COMPLETED Source: [place] 8:45 AM [facility] REPOSITORY Office Visit (CAWSTR) MARYBELBRIA WESTFALL ([id number]) 1985 F Date Time Provider Department 12/29/17 8:45 AM ALLEN TOBARWSTR During your visit today, we recorded the following information about you: Pulse Blood pressure Weight 78/minute 106/75 93.8 kg Allen Tobar MD 12/29/2017 5:52 PM Signed PERTINENT CARDIAC HISTORY Palpitations - Ventricular arrhythmia HL Tobaccoism Chest pain - normal cath 2007 ADHERENCE TO GUIDELINES DONA-I or ARB for HF with prior LVEF<40 (NQF 0081) - N/A ASA or Plavix for ASHD (NQF 0067) - N/A Beta leonora for ASHD with prior NC or prior LVEF<40 (NQF 0070) - N/A Beta leonora for HF with prior LVEF<40 (NQF 0083) - N/A DONA-I or ARB for ASHD with DM or prior LVEF<40 (NQF 0066) - N/A Statin therapy for ASHD or FHL or DM - met BMI documented and plan if >25 (NQF 0421) - lifestyle recommendation form Tobacco use screening and referral (NQF 0028) - lifestyle recommendation form Recommendation for whole food, plant based diet - lifestyle recommendation form CLINICAL IMPRESSION/PLAN: Bria Witt is doing well. Her chest pain pattern is under good control. She's had fewer palpitations. I've encouraged her to use her nadolol on a more regular basis. She has been taking quarter of a tablet as needed. She states that she has eliminated junk food and fast food. She still drinking 3 coffees a day and I've asked her to cut down on this somewhat. This will help with palpitations. I will see her in 12 months, at which time she will have an echocardiogram for follow-up of her right ventricular abnormality. This was evaluated on MR and no pathology was found, but should be followed by echo as well. Written and verbal health teaching given to patient, patient verbalizes understanding and agrees with treatment plan. DIAGNOSIS FOR VISIT: Palpitations HISTORY OF PRESENT ILLNESS Bria Witt returns for follow-up of her palpitations. She reports that she has been doing relatively well. She is only used one nitroglycerin in the last year. She's had intermittent elevation of blood pressure and has been using her Corgard on a when necessary basis. Exercise tolerance has been stable. She's been under a lot of stress at home. She denies orthopnea. Her edema has been well controlled. She's had no syncope, TIAs, amaurosis or claudication. She has had minimal palpitations ALLERGIES: ALLERGIES Allergen Reactions - Augmentin [Amoxicil* Vomiting - Environmental [Othe* Other: See Comments BIRD AND BEES - hypersensitivity pneumonitis - Pulse Ox down to 50% - Flagyl [Metronidazo* Rash - Prednisone Swelling Severe joint and spine pain and unable to move- able to have injections of joints, just not spine - Silvadene [Silver S* Intolerance Dizziness/nausea - Stress Test Iv Liqu* Anaphylaxis HYPERVENTILATED, 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 adenosine - Sulfa (Sulfonamide * GI Upset CURRENT OUTPATIENT MEDICATIONS: nicotine (NICODERM CQ) 21 mg/24 hr Apply 1 Patch as directed every 24 hours. doxycycline monohydrate (MONODOX) 100 mg capsule Take 1 capsule by mouth twice daily. Petrolatum, White-Lanolin (VITAMIN A AND D DIAPER RASH) oint Apply 1 application to affected area three times daily. As needed to affected area. VENTOLIN HFA 90 mcg/actuation inhaler Inhale 2 Puffs as instructed every 4 hours as needed for Wheezing/Shortness of Breath. pravastatin (PRAVACHOL) 20 mg tablet TAKE 1 TABLET BY MOUTH AT BEDTIME nadolol (CORGARD) 20 mg tablet Take 20 mg by mouth as needed (as needed for elevated BP and HR). Selenium Sulfide 2.25 % sham Apply 1 application to affected area daily at bedtime. clonazePAM (KLONOPIN) 0.5 mg tablet Take 1 tablet by mouth four times daily. nitroglycerin sublingual (NITROQUICK) 0.4 mg SL tablet Dissolve 1 tablet under the tongue every 5 minutes as needed. levonorgestrel (MIRENA) 20 mcg/24 hr (5 years) IUD Inserted in office Albuterol Sulfate 1.25 mg/3 mL nebulizer solution Use 1 Ampule via nebulizer every 6 hours as needed. COMPOUNDED PRESCRIPTION Mask and tubing to be used with nebulizer machine. LORATADINE (CLARITIN ORAL) Take by mouth. albuterol 90 mcg/actuation Aero Inhale 2 Puffs as instructed every 4 hours as needed. [id number] TAB TAKE ONE DAILY PHYSICAL EXAMINATION: VITAL SIGNS: BP 106/75 Pulse 78 Wt 206 lb 11.2 oz (93.8kg) Chest: Clear to percussion and auscultation. Trachea is midline. Air entry is equal. Cardiac: Regular rhythm. S1 and S2 are normal. PMI is nondisplaced. There is a soft systolic ejection murmur. Carotids are brisk without bruits. JVP is less than 10 cm. Abdomen: Soft and nontender. There are no pulsatile masses or bruits. No liver enlargement. Bowel sounds are active. Extremities: No edema. Pulses are intact and symmetrical. Recent EKG showed sinus rhythm and was within normal limits. Recent labs were reviewed. Renal function is normal. LDL was 114. TSH is normal. Electronically Signed: Allen Tobar MD December 29, 2017 9:33 AM CC: MD Allen CANTRELL MD 12/29/2017 9:34 AM Signed LIFESTYLE CHANGE A healthy lifestyle is the most important component of your overall treatment plan. Please give serious thought to the following areas and commit to making assisted changes. EAT A WHOLE FOOD, PLANT BASED DIET The nutrition your body gets is more important than the medicine you take. What matters most is the overall way you eat. We encourage you to minimize the use of animal products (which include dairy and all meats except fatty fish) and use whole, unprocessed plant foods to provide your protein, vitamins and other nutrients. We have a lot of information to share with you on this topic. This is not a diet. It is a way of life that you will keep with you. EXERCISE REGULARLY It is not important to spend hours in the gym, lifting weights and perspiring heavily. A total of 2-3 hours per week of aerobic (causing you to be moderately short of breath) exercise is sufficient to improve your health. Talk to us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 2/5. Pt is I with HEP - Goals Goal 1:: Decrease L shoulder pain x 50% to aid with sleep Goal Progress: Not Progressing Goal 2:: Increase L shoulder strength x 1 grade to aid with IADL's Goal Progress: Not Progressing Goal 3:: Increase L shoulder ROM flex and abd to equal R shoulder to aid with IADL's Goal Progress: Not Progressing Goal 4:: I with HEP Goal Progress: Goal Met - Plan Plan: Discontinue - D/C Information If there are questions or concerns regarding this patient's physical therapy, please feel free to call me at [phone]. Thank you for the referral of this patient. Sincerely, Tamir Quesada PT, <Electronically signed by Tamir Quesada PT, ATC> 07/01/17 1016 CC: Chela Sheridan DO; Scot Chairez MD [facility] Signed PROGRESS Observed: 06/23/2017 Status: COMPLETED Source: [place] 11:23 AM [facility] REPOSITORY HNO ID: [id number] Author: Anthony Cota Service: (none) Author Type: Physician Type: Progress Notes Filed: 06/23/2017 11:47 AM Note Text: Anthony Cota MD, PhD, [facility] [address] [place], [place] [id number] , June 23, 2017 Note: This dictation was created using voice recognition software and using medical terminology intended to be used for medical purposes by other health skin care specialist. 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 Bria Witt is a 31 year old female who returns today with a new problem. She had left shoulder pain for over a year and was followed and posterior and eventually underwent arthroscopic surgery with Dr. Wong. She had a bicep tenodesis and decompression. She states that some of her discomfort improved but she had new problems. She is getting radiating pain emanating from the anterior part of the shoulder and brachium going down the anterior posterior sides of her arm at different times. She does blue discoloration. She describes of Wright of blood flow in her arm at times with hand positions. ASSESSMENT: G54.0 TOS (thoracic outlet syndrome) (primary encounter diagnosis) Z68.30 BMI 30.0-30.9,adult PLAN: She has some residual impingement. I think it's distinct and different from her other problems. She also has some tenderness in her biceps worsened with supination versus resistance. I believe she does have avascular TOS but we need to confirm this with objective studies. Her blood flow was cut off completely with an Adson maneuver on the left side and not on the right. Some of the symptoms she is describing her consistent with that and the visible discoloration noted today and swelling in her left hand. I do not think she has a CRPS. Ms. Bria Witt was advised as to contrast therapies and/or to take analgesics/anti-inflammatories as needed and all contraindications were reviewed. OBJECTIVE: Ms. Bria Witt is a pleasant 31 year old in no apparent distress. Body mass index is 30.79 kg/(m2). Right Shoulder: Impingement tests: - Neer's test is negative. - Hawkin's test is negative. - Subacromial tenderness is absent - AC Joint cross arm test is negative. Tenderness is absent. Active Range of Motion: (AROM): - forward elevation is 180 degrees. - external rotation is 60 degrees. - internal rotation is to the mid thoracic region. Passive range of motion (PROM): - forward elevation is 180 degrees. - external rotation is 60 degrees. Strength: - abduction is 5 out of 5 without pain. - external rotation is 5 out of 5 without pain. Special Tests: - Biceps load test negative - Lag test is negative. - Speed's test is negative. - Belly press (subscapularis muscle) test is negative. - Suprascapular and axillary nerve funtion are normal. Left Shoulder: Impingement tests: - Neer's test is positive. - Hawkin's test is positive. - Subacromial tenderness is present - AC Joint cross arm test is negative. Tenderness is absent. Active Range of Motion: (AROM): - forward elevation is 180 degrees. - external rotation is 60 degrees. - internal rotation is to the mid thoracic region. Passive range of motion (PROM): - forward elevation is 180 degrees. - external rotation is 60 degrees. Strength: - abduction is 5 out of 5 without pain. - external rotation is 5 out of 5 without pain. Special Tests: - Biceps load test negative - Lag test is negative. - Speed's test is negative. - Belly press (subscapularis muscle) test is negative. - Suprascapular and axillary nerve funtion are normal. Other: - Vascular exam is normal. Hand is warm. - Skin is normal - Neck is supple and Spurling's test is negative she has a positive Adson's Supporting Subjective Information Below: PAIN EVALUATION 06/23/2017 Pain Score: 8 Pain Location: Shoulder-Left Description: Aching Duration Units: Months Frequency: Continuous Intervention: Medication;Reposition;Relaxation ACTIVE PROBLEM LIST Asthma With Exacerbation Dysthymic Disorder Anxiety State, Unspecified Thyroid Nodule Smoker Hyperlipidemia, Mixed Cervicalgia Pain in Joint, Shoulder Region Headache(784.0) Arrhythmia Obesity Vulvitis Vaginitis and Vulvovaginitis, Unspecified Abnormal Uterine Bleeding Cervical Disc Displacement Ddd (Degenerative Disc Disease), Cervical Chronic Pain Hidradenitis Biliary Dyskinesia Myofacial Muscle Pain Gerd (Gastroesophageal Reflux Disease) Palpitation Bmi 32.0-32.9,Adult Ulnar Nerve Compression Druj (Distal Radioulnar Joint) Sprain Lateral Epicondylitis of Right Elbow Past Surgical History: PAST SURGICAL HISTORY Procedure Laterality Date - EGD W/O OR W/BRUSH/WASH 12/05/13 EGD - excision nevus [address] Brand. - I AND D VULVA /PERINEAL CYST 10/19/2010 - INCISION EARDRUM,ASPIR,GEN ANESTH Myringotomy/tubes - INSERT INTRAUTERINE DEVICE 02/25/2009 mirena - INSERTION OF IUD 04/16/2010 Paragard and removed - LAP CHOLECYSTECT/CHOLANGIOGRAPHY 02/12/14 normal IOC - PAST SURGICAL HISTORY OF LARYNGOSCOPY - PAST SURGICAL HISTORY OF LMPH NODE REMOVED FROM NECK - PAST SURGICAL HISTORY OF IANDD BREAST ABSCESS - PAST SURGICAL HISTORY OF Right 02/05/2015 PCP ulna - PAST SURGICAL HISTORY OF Right 09/10/2014 Right axilla excision of auto immune skin disease - PAST SURGICAL HISTORY OF Right 02/2015 surgery right wrist-ulnar fx - REMOVAL OF TONSILS,<10 Y/O Tonsillectomy - RT HEART CATH 2007 - SURGICAL EXTRACTION ERUPTED TOOTH 03/03/2009 had all top teeth removed - TUBAL LIGATION, 2011 - TYP MEMBR REP W OR W/O PATCH Tympanoplasty Social History: Social History Marital status: Spouse name: Adriana Years of education: 12 Number of children: 6 Occupational History 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 Lives with her 6 children. Medications: Current Outpatient Prescriptions: VENTOLIN HFA 90 mcg/actuation inhaler Inhale 2 Puffs as instructed every 4 hours as needed for Wheezing/Shortness of Breath. nabumetone (RELAFEN) 500 mg tablet Take 1 tablet by mouth twice daily. TAKE WITH FOOD Selenium Sulfide 2.25 % sham Apply 1 application to affected area daily at bedtime. clonazePAM (KLONOPIN) 0.5 mg tablet Take 1 tablet by mouth four times daily. nitroglycerin sublingual (NITROQUICK) 0.4 mg SL tablet Dissolve 1 tablet under the tongue every 5 minutes as needed. pravastatin (PRAVACHOL) 20 mg tablet Take 1 tablet by mouth daily at bedtime. levonorgestrel (MIRENA) 20 mcg/24 hr (5 years) IUD Inserted in office Albuterol Sulfate 1.25 mg/3 mL nebulizer solution Use 1 Ampule via nebulizer every 6 hours as needed. COMPOUNDED PRESCRIPTION Mask and tubing to be used with nebulizer machine. ALBUTEROL SULFATE (VENTOLIN ORAL) Take by mouth. LORATADINE (CLARITIN ORAL) Take by mouth. albuterol 90 mcg/actuation Aero Inhale 2 Puffs as instructed every 4 hours as needed. [id number]-[id number]-AVV-[id number] TAB TAKE ONE DAILY No current facility-administered medications for this visit. Allergies: Augmentin [Amoxicillin-Pot Clavulanate]; Environmental [Other]; Flagyl [Metronidazole]; Prednisone; Silvadene [Silver Sulfadiazine]; Sulfa (Sulfonamide Antibiotics); Stress Test Iv Liquid [Other] ROS: Completed within [facility] and I have personally reviewed. Consult Time: I spent 30 minutes in this visit, with more than 50% of the time devoted to patient counseling. ALLERGIES ALLERGIES DATE TYPE / CODE NAME / CODE REACTION SEVERITY SOURCE Drug amoxicillin Nausea Unknown [place] 9 Allergy/517630203( trihydrate/J35758 [facility]) 2707(RXNORM) Hospital Repository Drug potassium Nausea Unknown [place] 9 Allergy/491092598( clavulanate/F0000 [facility]) 96210(RXNORM) Hospital Repository Drug Sulfa Nausea Unknown [place] 9 Allergy/957247092( (Sulfonamide [facility] SN[facility]) Antibiotics)/F001 Hospital 085771(RXNORM) Repository Drug adenosine/F425058 Other Unknown [place] 9 Allergy/281298849( 603(RXNORM) [facility]) Hospital Repository Drug bee venom protein Unknown Unknown [place] 9 Allergy/031784647( (honey [facility] SN[facility]) bee)/G248670048( Hospital XNORM) Repository Miscellaneous birds Unknown Unknown [place] 9 Allergy/958975297( [facility] SNOMED [facility]) Hospital Repository Miscellaneous steroids Unknown Unknown [place] 9 Allergy/308864322( [facility] SNOMED CT) Hospital Repository Miscellaneous stress test dye Unknown Unknown [place] 9 Allergy/109031390( [facility] SNOMED CT) Hospital Repository DRUG METRONIDAZOLE RASH [place] 2 INGREDI/052671042( Clinic Main SNOMED [facility]) [place] [facility] DRUG/851451540(SNO AMOXICILLIN-POT Vomiting [place] [address]) CLAVULANATE Clinic Main [place] [facility] DRUG PREDNISONE SWELLING [place] 0 INGREDI/109161080( Clinic Main SNOMED [facility]) [place] [facility] Drug SULFA GI UPSET [place] 8 Class/822279561(SN (SULFONAMIDE Clinic Main OMED CT) ANTIBIOTICS) [place] Rep[facility] DRUG SILVER INTOLERANCE [place] 8 INGREDI/781244081( SULFADIAZINE Clinic Main SNOMED CT) [place] Rep[facility] Miscellaneous OTHER ANAPHYLAXIS [place] 6 Allergy/623118611( [facility] Main SNOMED CT) [place] [facility] Miscellaneous OTHER [place] 5 Allergy/526787233( [facility] Main SNOMED CT) [place] [facility] ENCOUNTERS ENCOUNTERS ADMIT/DISCHARGE ACCOUNT ADMITTING ENCOUNTER LOCATION SOURCE NUMBER CLASS 05/30/2018/05/30/19 [id number] Emergency [address] ing:ED Repository 05/26/2018/05/26/19 [id number] Ambulatory BMSBuilding:B [place] 19 [facility] Repository 05/18/2018 [id number] Ambulatory [facility] ing:MRI Repository 05/13/2018/05/13/19 [id number] Ambulatory [address] Repository 05/13/2018/05/15/19 [id number] Ambulatory [address] Repository 05/05/2018/05/07/20 [id number] Ambulatory [address] Repository 05/04/2018/05/04/20 [id number] Ambulatory BMSBuilding:B [place] 18 [facility] Repository 04/16/2018/04/18/20 [id number] Ambulatory [address] Main [place] Repository 04/05/2018/04/06/20 [id number] Ambulatory [address] Repository 03/23/2018/03/23/20 [id number] Ambulatory BMSBuilding:B [place] 18 [facility] Repository 03/16/2018/03/17/20 [id number] Ambulatory [address] Repository 03/13/2018/03/13/20 [id number] Amb[place] ing:PT Repository 03/10/2018/03/13/20 [id number] Ambulatory [address] Repository 03/03/2018/03/03/20 [id number] Ambulatory [address] Repository 02/20/2018 [id number] [facility] 02/20/2018/02/21/20 [id number] Ambulatory BMSBuilding:B [place] 18 [facility] Repository 02/03/2018/02/04/20 [id number] Emergency [place] ing:ED Repository 02/01/2018/02/02/20 [id number] Ambulatory BMSBuilding:B [place] 18 [facility] Repository 12/29/2017/12/31/19 [id number] Ambulatory [address] Repository 12/29/2017/01/03/20 [id number] Ambulatory [address] Repository 12/12/2017/12/14/19 [id number] Ambulatory [address] Repository 11/23/2017/11/24/19 [id number] Ambulatory [place] [facility] ing:PT Repository 11/02/2017/11/04/19 [id number] Ambulatory [address] Repository 09/26/2017/09/28/19 [id number] Ambulatory [address] Repository 09/16/2017/09/20/19 [id number] Ambulatory [address] Repository 09/08/2017/09/10/19 [id number] Ambulatory [address] Repository 09/06/2017/09/07/19 [id number] Emergency [place] ing:ED Repository 09/01/2017/09/03/19 [id number] Ambulatory [address] Repository 08/11/2017/08/12/19 [id number] Ambulatory [address] Repository 08/11/2017/08/12/19 [id number] Ambulatory [address] Repository 07/27/2017/07/29/19 [id number] Ambulatory [address] Repository 07/07/2017/07/16/19 [id number] Ambulatory [address] Repository 07/07/2017 [id number] Ambulatory [facility] Repository 07/01/2017/07/01/19 [id number] Ambulatory [address] ing:PT Repository 06/30/2017/06/30/19 [id number] Ambulatory [address] Repository 06/23/2017/06/23/19 [id number] Ambulatory [address] Repository PAYERS PAYERS ENCOUNTER GUARANTOR PAYER SUBSCRIBER SOURCE 05/30/2018 BRIA Oseguera Primary BRIA Angelo [id number] Insurance:CARESOURCEP SMEJKALDOB: [facility] Number: [id number], [place] [id number] Repository 00169Beh: ([phone]) Date:2018-05-30 O [phone] () [address]ATTN: [place] [address]JO: 05/30/2018 Secondary NOT GIVENUNK [place] Insurance:SELF PAY [facility] Number: Effective Repository Date:2018-05-30 05/26/2018 BRIA Oseguera Primary BRIA Angelo [id number] Insurance:CARESOURCEP EJKALDOB: [facility] Number: [id number], [place] [id number] Repository 406[address]Dki: (330) Date:2018-05-23P O [phone] (HP) [address]ATTN: [place] [address]DG: 05/26/2018 Secondary NOT GIVENUNK [place] Insurance:SELF PAY [facility] Number: Effective Repository Date:2018-05-25 05/18/2018 BRIA Oseguera Primary BRIA Oseguera [place] [id number] Insurance:CARESOURCEP SMEJKALDOB: [facility] Number: [id number], [place] [id number] Repository 760[address]Qsk: (330) Date:2018-05-11P O [phone] () [address]ATTN: [place] [address]PC: 05/18/2018 Secondary NOT GIVENUNK [place] Insurance:SELF PAY [facility] Number: Effective Repository Date:2018-05-11 05/04/2018 BRIA Oseguera Primary BRIA Bowmanoster [id number] Insurance:CARESOURCEP SMEJKALDOB: [facility] Number: [id number], [place] [id number] Repository 923[address]Kkj: (330) Date:2018-03-23P O [phone] () [address]ATTN: [place] [address]QZ: 05/04/2018 Secondary NOT GIVENUNK [place] Insurance:SELF PAY [facility] Number: Effective Repository Date:2018-05-03 03/23/2018 BRIA Oseguera Primary BRIA Oseguera [place] [id number] Insurance:CARESOURCEP SMEJKALDOB: [facility] Number: [id number], [place] [id number] Repository 18[address]Kde: (330) Date:2018-03-17P O [phone] () [address]ATTN: [place] [address]XQ: 03/23/2018 Secondary NOT GIVENUNK [place] Insurance:SELF PAY [facility] Number: Effective Repository Date:2018-03-23 03/13/2018 BRIA Oseguera Primary BRIA Oseguera [place] [id number] Insurance:CARESOURCEP SMEJKALDOB: [facility] Number: [id number], [place] [id number] Repository 16[address]Xnp: (330) Date:2018-02-21P O [phone] () [address]ATTN: [place] [address]SV: 03/13/2018 Secondary NOT GIVENUNK [place] Insurance:SELF PAY [facility] Number: Effective Repository Date:2018-02-21 02/20/2018 BRIA Oseguera Primary BRIA Oseguera [place] [id number] Insurance:CARESOURCEP SMEJKALDOB: [facility] Number: [id number], [place] [id number] Repository [address]Byo: (330) Date:2018-02-20P O [phone] () [address]ATTN: [place] [address]IA: 02/20/2018 Secondary NOT GIVENUNK [place] Insurance:SELF PAY [facility] Number: Effective Repository Date:2018-02-20 02/20/2018 BRIA Oseguera Primary BRIA Oseguera [place] [id number] Insurance:CARESOURCEP SMEJKALDOB: [facility] Number: [id number], [place] [id number] Repository 787[address]Lem: (330) Date:2018-02-13P O [phone] () [address]ATTN: [place] [address]DT: 02/20/2018 Secondary NOT GIVENUNK [place] Insurance:SELF PAY [facility] Number: Effective Repository Date:2018-02-20 02/03/2018 BRIA Oseguera Primary BRIA Bowmanoster [id number] Insurance:CARESOURCEP SMEJKALDOB: [facility] Number: [id number], [place] [id number] Repository [address]Rnt: (330) Date:2018-02-03P O [phone] () [address]ATTN: [place] [address]QA: 02/03/2018 Secondary NOT GIVENUNK [place] Insurance:SELF PAY [facility] Number: Effective Repository Date:2018-02-03 02/01/2018 BRIA Oseguera Primary BRIA Oseguera [place] [id number] Insurance:CARESOURCEP SMEJKALDOB: [facility] Number: [id number], [place] [id number] Repository [address]Zej: (330) Date:2018-02-01P O [phone] () [address]ATTN: [place] [address]PS: 02/01/2018 Secondary NOT GIVENUNK [place] Insurance:SELF PAY [facility] Number: Effective Repository Date:2018-02-01 11/23/2017 BRIA Oseguera Primary BRIA Oseguera [place] [id number] Insurance:CARESOURCEP SMEJKALDOB: [facility] Number: [id number], [place] [id number] Repository [address]94[address]Gyu: (330) Date:2012-11-06P O [phone] () [address]ATTN: [place] [address]CO: 11/23/2017 Secondary NOT GIVENUNK [place] Insurance:SELF PAY [facility] Number: Effective Repository Date:2017-10-14 09/06/2017 BRIA Oseguera Primary BRIA Oseguera [place] [id number] Insurance:CARESOURCEP SMEJKALDOB: [facility] Number: [id number], [place] [id number] Repository 16[address]Piv: (330) Date:2017-09-06P O [phone] () [address]ATTN: [place] [address]MN: 09/06/2017 Secondary NOT GIVENUNK [place] Insurance:SELF PAY [facility] Number: Effective Repository Date:2017-09-06 07/01/2017 BRIA Oseguera Primary BRIA Angelo [id number] Insurance:CARESOBOWEN PARADAOB: [facility] Number: [id number], [place] [id number] Repository [address]Lmn: 330) Date:2012-11-06P O [phone] (VJ) [address]ATTN: [place] [address]UT: 07/01/2017 Secondary NOT GIVENUNK [place] Insurance:SELF PAY [facility] Number: Effective Repository Date:2017-02-08
== END 2018-05-30 04:18 | disposition home or self-care (01) ==
LOC: ED 01:45
PROVIDERS: Emergency Provider Emergency Medicine; Family Provider Internal Medicine; PCP Internal Medicine
DX: R07.89 Other chest pain (principal); R06.00 Dyspnea, unspecified; R11.0 Nausea; R19.7 Diarrhea, unspecified; R51 Headache; R42 Dizziness and giddiness; R12 Heartburn; E78.00 Pure hypercholesterolemia, unspecified; F41.9 Anxiety disorder, unspecified; F41.0 Panic disorder [episodic paroxysmal anxiety]; Z79.899 Other long term (current) drug therapy; Z72.0 Tobacco use
CPT/HCPCS: 36415; 71046; 80048; 84484; 85025; 93005; 96374; 96375; 99285; A4216; J2405

== ENCOUNTER 2018-08-09 10:00 | Outpatient (RCR) | payer MEDICAID, SELFPAY ==
--- NOTE | 2018-06-05 11:22 | HP.PTEVAL ---
Patient's Visit Information GLEN DESAI is a 32 year old F referred to Physical Therapy by HOLLI Conn with a diagnosis of R shoulder tendonitis. Date of Evaluation: 06/05/18 Physical Therapist: Tamir Quesada PT, ATC - Visit Plan Frequency: 2-3x /Week Duration: 4-6 Weeks Plan: R shoulder rot cuff strengthening, scapular stab ex's, UBE, and HEP - Subjective Findings: Pt reports her R shoulder has been sore for many years. Pt reports she had L shoulder surgery secondary to a SLAP lesion and OA approximately one year ago. Pt reports she believes she may have overcompensated by using her R shoulder for all activity, and believes this may be what caused her pain. Pt reports her pain has progressively worsened over the past 2 months. Pt reports she had a cortisone injection approximately 1 month ago that provided her with 6 hours of relief, but then the pain came right back. Pt notes sleep difficulty at this time secondary to R shoulder pain. 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 Pt is R hand dom. Pt reports any type of reaching or overhead activity increases her pain. Pt has difficulty with washing her hair as well secondary to pain. 2/10 pain at rest, 10/10 at worst. - Pain R shoulder Pain Intensity (Out of 10): 2 Pain Intensity Range: 10 - Objective Neuro: B UE sensation is WNL to light touch. B bicepital reflex= 2/3. Palpation: Pt is very sore throughout the distribution of the supraspinatus tendon. ROM: L shoulder flex= 130, abd= 100, ER= 40, IR WNL: R shoulder flex= 90, abd= 90, ER= 40, IR minimally limited. MMT: L shoulder 5/5 throughout. R shoulder is 4/5 and painful. Special testing: positive empty can test - Goals Goal 1:: Decrease R shoulder pain x 50% to aid with sleep Goal Time Frame: 4-6 Weeks Goal 2:: Increase R shoulder strength x 1 grade to aid with IADL's Goal Time Frame: 4-6 Weeks Goal 3:: Increase R shoulder ROM flexion and abd x 20 degrees to aid with overhead activity Goal Time Frame: 4-6 Weeks Goal 4:: I with HEP Goal Time Frame: 4-6 Weeks - Rehabilitation Potential Physical Therapy Diagnosis: R shoulder pain, weakness, and limited ROM secondary to R shoulder supraspinatus tendonitis Rehabilitation Potential: Good - Anticipated Interventions Patient/Client Instruction: Educate patient on: Condition, Plan of Care For the Purpose of:: To improve self management Therapeutic Exercise to Include: Strength training, Endurance training, Flexibilty training, Active ROM, Scapular Strength/Stabilization For the Purpose of:: To decrease pain, To increase ROM, To improve muscle performance and motor function Cryotherapy (ice pack, ice massage): Yes For the Purpose of:: To decrease pain Thank you for the opportunity to evaluate your patient. For Medicare and Medicare HMO plans, please review the plan of care and approve it. It will need to be FAXED BACK to us at [phone] for Medicare purposes. For Medicare only, by signing this I certify the plan of care. Please let me know if there are questions or concerns regarding this plan of care. Physician Signature: Date:
--- NOTE | 2018-07-13 12:58 | HP.PTEVAL2 ---
Patient's Visit Information GLEN DESAI is a 33 year old F referred to Physical Therapy by HOLLI Conn with a diagnosis of L knee sprain. Date of Evaluation: 07/13/18 Physical Therapist: Tamir Quesada, PT, ATC - Visit Plan Frequency: 2x /Week Duration: 4 Weeks Plan: L knee strengthening (hip abd, VMO), core strengthening, balance and proprio, stretching, and HEP - Subjective Findings: Pt reports she slipped on ice approximately one month ago and fell on ice. Pt reports she injured her L knee. Pt reports she went and had xrays taken which revealed no fractures. Pt reports her pain and swelling have progressively worsened since the time of injury. L knee pops on occasion and will give out at times. Pt also notes she has a difficult time straightening out her L knee after she has squatted for a short period of time. Pt reports she has difficulty with prolonged ambulation as increased pain and swelling occurs. Pt notes her L LE wants to give out when she attempts stairs. No tingling or numbness in L LE, but her foot gets cold often. Pt reports occasional sleep difficulty secondary to pain. - Pain L knee Intensity: 4 Pain Intensity Range: 9 - Objective Objective: Neuro: B LE sensation is WNL to light touch. B achilles reflex= 2/3. Palpation: Pt has significant pain on the medial joint line of L knee. Minor swelling noted at this time. No obvious deformity at this time. Girth at joint line: R knee 41 cm, L knee 42.5 cm. ROM: L knee 0-80 degrees. K knee 0-140 degrees. MMT: R LE is grossly 5/5 throughout while L LE is 3/5 and painful. Special testing: Pain with McMurrys, but no palpable popping. No other positive tests this date - Goals Goal 1:: Decrease L knee pain x 50% to aid with sleep Goal Time Frame: 4-6 Weeks Goal 2:: Increase L knee strength x 1 grade to aid with stair negotiation Goal Time Frame: 4-6 Weeks Goal 3:: Increase L knee ROM x 1 grade to aid with squatting activity Goal Time Frame: 4-6 Weeks Goal 4:: I with HEP Goal Time Frame: 4-6 Weeks - Rehabilitation Potential Physical Therapy Diagnosis: L knee pain, weakness, and limited ROM seconday to pain Rehabilitation Potential: Good - Anticipated Interventions Patient/Client Instruction: Educate patient on: Condition, Plan of Care For the Purpose of:: To improve self management Therapeutic Exercise to Include: Strength training, Endurance training, Balance training, Flexibilty training, Gait and locomotor training, Active ROM, Dynamic Lumbar Stabilization For the Purpose of:: To decrease pain, To increase ROM, To improve muscle performance and motor function Cryotherapy (ice pack, ice massage): Yes For the Purpose of:: To decrease pain Thank you for the opportunity to evaluate your patient. For Medicare and Medicare HMO plans, please review the plan of care and approve it. It will need to be FAXED BACK to us at [phone] for Medicare purposes. For Medicare only, by signing this I certify the plan of care. Please let me know if there are questions or concerns regarding this plan of care. Physician Signature: Date:
--- NOTE | 2018-08-09 10:33 | HP.PTDCSUM ---
HP - PT D/C Summary It has been my pleasure to treat GLEN DESAI under orders from HOLLI Conn, for the diagnosis of R shoulder tendonitis for a total of 6 visit(s). Discharge Date: Please see the following information for a summary of their discharge status. - Subjective Subjective: Only minor improvements at this time - Pain R shoulder Pain Intensity (Out of 10): 7 - Overall Improvement % Improvement: 10 - Objective Objective/Function: R shoulder pain 7/10, increases to 10/10 at worst. R shoulder ROM: flex= 124, abd= 110, ER= 50, IR= WNL. R shoulder MMT: R shoulder flex/abd/ER= 4-/5. All other B UE measurements 5/5 throughout. I with HEP - Goals Goal 1:: Decrease R shoulder pain x 50% to aid with sleep Goal Progress: Not Progressing Goal 2:: Increase R shoulder strength x 1 grade to aid with IADL's Goal Progress: Goal Met Goal 3:: Increase R shoulder ROM flexion and abd x 20 degrees to aid with overhead activity Goal Progress: Progressing Goal 4:: I with HEP Goal Progress: Goal Met - Plan Plan: Discontinue, RTD - D/C Information If there are questions or concerns regarding this patient's physical therapy, please feel free to call me at [phone]. Thank you for the referral of this patient. Sincerely, Tamir Quesada, PT, ATC
--- NOTE | 2018-08-09 10:58 | HP.PTDCS(2) ---
HP - PT D/C Summary (2) It has been my pleasure to treat GLEN DESAI under orders from HOLLI Conn, for the diagnosis of L knee sprain for a total of 7 visit(s). Discharge Date: Please see the following information for a summary of their discharge status. - Subjective Subjective: Pain is nasty, achy today. - Overall Improvement % Improvement: 0 - Objective Objective/Function/Assessment: L knee pain 7/10 currently, 10/10 at worst. L knee MMT: flex= 4-/5, ext= 3+/5. L knee ROM: 0-115 degrees. I with HEP - Goals Patient Goals: Improve Mobility, Improve Function, Decrease Pain, Walk Normal, Sleep Normal Goal 1:: Decrease L knee pain x 50% to aid with sleep Goal Progress: Not Progressing Goal 2:: Increase L knee strength x 1 grade to aid with stair negotiation Goal Progress: Not Progressing Goal 3:: Increase L knee ROM x 1 grade to aid with squatting activity Goal Progress: Not Progressing Goal 4:: I with HEP Goal Progress: Goal Met - Plan Plan: Discontinue - D/C Information If there are questions or concerns regarding this patient's physical therapy, please feel free to call me at [phone]. Thank you for the referral of this patient. Sincerely, Tamir Quesada, PT, ATC
== END 2018-08-09 17:14 | disposition home or self-care (01) ==
LOC: PT 10:00
PROVIDERS: Family Provider Internal Medicine; PCP Internal Medicine; Referring Provider Physician Assistant; Visit Provider Physician Assistant
DX: M75.80 Other shoulder lesions, unspecified shoulder (principal); M75.31 Calcific tendinitis of right shoulder
CPT/HCPCS: 97110; 97161; 97530

== ENCOUNTER 2019-03-07 05:55 | Day surgery (SDC) | payer MEDICAID, SELFPAY ==
[2019-02-08 15:07] VITALS: BMI 37.2
--- NOTE | 2019-03-01 10:54 | EKG12_ITS ---
Test Reason : PREOP Blood Pressure : / mmHG Vent. Rate : 063 BPM Atrial Rate : 063 BPM P-R Int : 144 ms QRS Dur : 090 ms QT Int : 384 ms P-R-T Axes : 041 015 003 degrees QTc Int : 392 ms Normal sinus rhythm with sinus arrhythmia Normal ECG Confirmed by MODE NIXON, JENNIFER ([id number]), fashion editor SHARON MARTINEZ ([id number]) on 03/02/2019 1:24:27 PM Referred By: Chela Sheridan Confirmed By:LIAT COELLO MD
[2019-03-01 13:10] LABS: Hematocrit 43.8 % (37-47); Hemoglobin 13.6 g/dL (12.0-15.0); Mean Corp Hgb Conc 31.1 g/dL (32-36); Mean Corpuscular Hgb 27.8 pg (27.0-32.0); Mean Corpuscular Volume 89.4 fL (81-99); Mean Platelet Vol. 11.3 fl (6.2-12.0); Platelet Count 195 K/mm3 (150-450); RBC Distribution Width CV 13.6 % (11.6-14.6); RBC Distribution Width SD 44.7 fl (35.1-43.9); White Blood Count 7.8 K/mm3 (4.4-11.0)
[2019-03-01 13:48] LABS: Anion Gap 4 (5-15); BUN 8 mg/dL (7-18); BUN/Creat Ratio 11.6 RATIO (10-20); Calcium,Total 8.9 mg/dL (8.5-10.1); Chloride 107 mmol/L (98-107); Creatinine, Serum 0.69 mg/dL (0.55-1.02); EST Glomerular Filtration Rate 103 mL/min (>60); Est Glom Filt Rate - Afr Amer 125 mL/min (>60); Glucose 84 mg/dL (74-106); Potassium 4.2 mmol/L (3.5-5.1); Sodium Level 141 mmol/L (136-145); Thyroid Stim Hormone (TSH) 1.04 uIU/mL (0.358-3.74)
[2019-03-07] VITALS (11 sets, daily range): BP systolic 86–119; BP diastolic 48–84; PULSE 53–83; RESP 14–16; TEMP 35.9–36.6; O2SAT 97–100; BMI 34.3
[2019-03-07] MEDS: Lactated Ringers 1,000 ML 100 ML IV ×2 (06:36→09:54)
--- NOTE | 2019-03-07 07:10 | HP.PCM_ITS ---
History and Physical I have re-examined the patient. There are no clinical changes since date of exam. Intake Vital Signs 02/08/19 Body Mass Index (BMI) 37.2 Intake Visit Reasons: R. SHOULDER Is patient in pain?: Yes Allergies adenosine Allergy (Verified 02/08/19 15:07) Other bee venom protein (honey bee) Allergy (Verified 02/08/19 15:07) Unknown amoxicillin trihydrate [From Augmentin] Adverse Reaction (Verified 02/08/19 15:07) Nausea potassium clavulanate [From Augmentin] Adverse Reaction (Verified 02/08/19 15:07) Nausea Sulfa (Sulfonamide Antibiotics) Adverse Reaction (Verified 02/08/19 15:07) Nausea birds Allergy (Uncoded 01/26/19 11:37) Unknown steroids Allergy (Uncoded 01/26/19 11:37) Unknown stress test dye Allergy (Uncoded 01/26/19 11:37) Unknown [facility] Medical History (Updated 01/26/19 @ 11:38 by HOLLI Barnes) Acid reflux (Acute) Anemia (Acute) Arthritis (Acute) Asthma (Acute) Back pain (Acute) Chronic headaches (Acute) Depression (Acute) Heart disease (Acute) Hemorrhoids (Acute) Hyperlipidemia (Acute) Incontinence (Acute) Limb weakness (Acute) Lung disease (Acute) Ovarian cyst (Acute) Right axillary hidradenitis (Acute) Seasonal allergies (Acute) Shoulder pain (Acute) nonhealing hidradenitis ulcer right axillary area (Acute) HTN (hypertension) (Chronic) Surgical History (Updated 02/01/18 @ 12:13 by Elidia Hernandez) Biceps muscle tear (Acute) History of shoulder surgery (Acute) S/P wrist surgery (Acute) removal of lymph nodes (Acute) Family History (Updated 02/01/18 @ 12:14 by Elidia Hernandez) Other Cancer FH: mental illness Heart disease Lung disease Social History (Updated 02/09/19 @ 09:29 by Chela Sheridan DO) Smoking Status: Current every day smoker alcohol intake: never HPI R. SHOULDER : Details: Parts of this documentation were recorded by a scribe, this documentation accurately reflects the service provided and the decisions made by , Chela Sheridan DO 02/08/19 0959. GLEN DESAI is a 33 year old F here today for continued right shoulder pain. Patient notes that she has pain over her anterior shoulder and posterior shoulder/scapula. She states that she has numbness into her 5th finger and has had surgery and been seen by dr márquez at [facility] for this in past. Patient has been ambulating with her elbow flexed at all times. She complains about dropping items frequently and has known neck issues that she is not going to have addressed. She notes that she uses her arm. Patient had an injection on 10/10/18 which was helpful for a few hours. She has taken oral prednisone which gave her temporary relief. ROS Musc Reports joint pain, Reports limited joint movement, Reports muscle weakness, Reports stiffness Skin/Breast Reports system reviewed and no additional complaints, except as docu Neuro Yes system reviewed and no additional complaints, except as docu Ortho Exam Right Shoulder Testing: Positive Hawkin's, Neer's, Speed's, TTP Biceps and cross arm; negative AROM-Forward Elevation 0-180 No rales rhonchi wheezing, no audible bruits, no abdominal pain Assessment & Plan Problems 1. Calcific tendinitis of right shoulder M75.31 2. Subacromial impingement of right shoulder M75.41 3. Biceps tendinitis of right shoulder M75.21 Plan Explained that her treatment options are another injection or surgery for debridement of the calcific tendonitis and the options of needing an RTC repair from the removal of calcifications. Reviewed the pre-operative plans with the patient. Risks and benefits of the procedure were fully explained, including but not limited to infection, neurovascular injury, continued pain, arthritis, stiffness, need for further surgery, re-injury, DVT, PE, general risks of anesthesia, and loss of limb or life. The patient understands all the risks and does wish to proceed with written consent. Follow up post op or sooner if pain, swelling, numbness or associated symptoms, or concerns develop. All questions answered. Patient in agreement of plan. Coding Level of Care Code Off vis,est,level 4 Diagnoses Calcific tendinitis of right shoulder M75.31 Subacromial impingement of right shoulder M75.41 Biceps tendinitis of right shoulder M75.21
[2019-03-07] MEDS: Cefazolin 2 GM in 0.9% Normal Saline 100 ML IV (07:30)
--- NOTE | 2019-03-07 07:30 | TESH_PTH ---
PATIENT: GLEN DESAI LOC: [facility] – [place], [place] U#:[id number] AGE/SX: 33/F ROOM: RE03/07/[address]: Dr. Chela Sheridan DO : 1985 BED: DIS: 03/07/2019 SPEC #: [id number] RECD: 03/07/19 16:03 STATUS: MIESHA STACEY #: [id number] RY: 03/07/19 07:[address]: Chela Sheridan DEPT: SURGICAL PATHOLOGY RECD BY: Flavio Townsend ENTERED: 03/08/19 08:53 SP TYPE: TENDON OTHR DR: MD Dr. Meera Girard MD Tissues: Tendon and tendon sheath, NOS Procedures: Surgery Specimen Level III HEADER OPERATION: Arthroscopy, bicep tenodesis debridement and repair PRE-OP DIAGNOSIS: Calcific tendonitis of right shoulder M75.31; subacromial impingement of right shoulder M75.41 TISSUE SUBMITTED: Right bicep tendon MICROSCOPIC DIAGNOSIS Right biceps tendon, biopsy: Tendon with degenerative change. AM:millicent 03/09/19 MICROSCOPIC DESCRIPTION Slides are reviewed. GROSS DESCRIPTION Received in fixative is one container labeled with the patient's name and designated right biceps tendon. The specimen consists of a fragment of duncan-white tendon measuring 4 cm in length and 0.5 cm in average diameter. The specimen is sectioned and totally submitted in one cassette. / CARMELA:millicent 03/08/19 TC:5 CPT: 49411
--- NOTE | 2019-03-07 07:41 | PCM.DC.ORTHO ---
Discharge Diet: No Restrictions - sling to operative arm and may remove sling to elevate shoulder but do not flex/extend elbow; remove dressings in 4 days and apply bandaids to incision sites and may get incision wet at that time, follow up in 2 weeks, call with concerns Discharge Activity: May Not Drive May shower in (days): 1 Ice area for (Minutes): 20 - Every hour while awake. Weight Bearing Status: Weight bearing as tolerated Keep extremity elevated above heart level: Operative Extremity Call your doctor if your incision/area has: Continuous Slow Oozing, Sudden Increased Bleeding, Increased Pain/ Swelling, Increased Redness, Foul Smelling Discharge Call your doctor if you observe: Fever of 101 or Higher, Coldness, Increased Pain, Numbness or Tingling, Change in Color, Calf discomfort Allergies/Adverse Reactions: Allergies adenosine Allergy (Verified 03/07/19 06:17) Other bee venom protein (honey bee) Allergy (Verified 03/07/19 06:17) Unknown amoxicillin trihydrate [From Augmentin] Adverse Reaction (Verified 03/07/19 06:17) Nausea potassium clavulanate [From Augmentin] Adverse Reaction (Verified 03/07/19 06:17) Nausea Sulfa (Sulfonamide Antibiotics) Adverse Reaction (Verified 03/07/19 06:17) Nausea birds Allergy (Uncoded 03/07/19 06:17) Unknown steroids Allergy (Uncoded 03/07/19 06:17) Unknown stress test dye Allergy (Uncoded 03/07/19 06:17) Unknown Medications to take at Discharge Clonazepam [Klonopin] 0.5 mg PO 4X/DAY PRN PRN 12/31/13 Pravastatin Sodium [Pravachol] 20 mg PO QHS 12/31/13 Nadolol [Corgard (Beta Elxis)] 5 - 10 mg PO DAILY PRN 07/27/14 Ibuprofen [Motrin] 800 mg PO TID PRN PRN 01/21/17 Nitroglycerin (INPATIENT USE) [Nitrostat] 0.4 mg SUBLINGUAL Q5M PRN 05/30/18 Albuterol Inhaler [Ventolin Hfa (SP)] 2 puff INHALATION Q4H PRN PRN 03/01/19 Doxycycline Monohydrate 100 mg PO BID PRN 03/01/19 Fluticasone Propionate [Flovent Hfa] 2 puff IH DAILY PRN 03/01/19 Lansoprazole [Prevacid] 30 mg PO PRN PRN 03/01/19 Ondansetron [Zofran] 8 mg PO Q8H PRN PRN #20 tab 03/07/19 Oxycodone HCl/Acetaminophen [Percocet 5/325] 1 - 2 tab PO Q6H PRN PRN 5 Days #28 tab 03/07/19 The following prescriptions were given: Oxycodone HCl/Acetaminophen [Percocet 5/325] 1 - 2 tab PO Q6H PRN PRN 5 Days #28 tab PRN Reason: Pain Transmission Status: Received by [facility] Ondansetron [Zofran] 8 mg PO Q8H PRN PRN #20 tab PRN Reason: Nausea Transmission Status: Received by [facility] Orders to be completed after discharge: 12 Lead EKG [CVS] Time Frame: 03/01/19, Facility: [facility], Location: Cardiovascular Services Basic Metabolic Profile (BMP) Time Frame: 03/01/19, Facility: [facility], Location: Laboratory CBC-Complete Blood Cnt No Diff Time Frame: 03/01/19, Facility: [facility], Location: Laboratory Thyroid Stim Hormone (TSH) Time Frame: 03/01/19, Facility: [facility], Location: Laboratory Primary Care Physician: Meera Dietrich MD [Primary Care Provider] - Test Results: Test results from this visit will be discussed in further detail at your follow-up appointment, if applicable. Please Follow Up With: Chela Sheridan, - [phone]
--- NOTE | 2019-03-07 07:42 | OP.PCM_ITS ---
Report of Operation Date of Procedure: 03/07/19 Pre-Operative Diagnosis: right shoulder impingment syndrome, biceps tendon osis/labral fraying at biceps insertion Post-Operative Diagnosis: same Surgery/Procedure Performed:: sars, labral debridement, subacromial decompressi on/acromioplasty, open subpec biceps tenodesis industrial real estate agent: Eduardo Naqvi Type of Anesthesia:: General/Regional Anesthesiologist: Anand Escoto Estimated Blood Loss (mL): min Fluids Replaced: 1000ml lr Description of Procedure: Preop note Patient is a 33-year-old female well-known [facility]. Patient continued right shoulder pain recalcitrant to nonoperative treatment options including injections and therapy and anti-inflammatories. MRI confirms calcific tendinitis and bursitis and biceps tendinosis with a questionable labral insertional tear. Risk benefits and alternatives surgery were discussed with patient. Risks including but not limited to blood loss, blood clot, infection, neurovascular, failure procedure, loss of life and loss of limb. Patient is aware would like proceed with right shoulder arthroscopy repair as indicated. Operative note Patient seen and examined preoperative holding area. Right arm was marked. Patient received a preoperative block. Patient brought to the operating room placed supine on the operating table. Signed, anesthesia, antibiotics were ground water technician. All bony problems well-padded SCDs placed on her bilateral lower extremities. The right shoulder was prepped and draped usual sterile fashion after patient was placed in beachchair positioning. Please note the custodial through beachchair position we did recheck the blood pressure which was stable throughout. Again we prepped and draped the right shoulder marked out a bony [place] for portal placement. Timeout was performed. We then insufflated the glenohumeral joint from the posterior aspect. We then used an 11 blade to create a posterior and skin incision and then were able to visualize our glenohumeral joint evidence began a diagnostic arthroscopy. There was fraying at the insertion of the biceps and complete SLAP tear from the anterior to posterior aspect and unstable insertion of the biceps. There were no loose bodies in the inferior recess the subscap was intact she had a Carlos complex there was into we then created an anterior portal under direct visualization we then resected the biceps tendon at its insertion to the biceps tenotomy intra- articular. We released the biceps from its insertion on the labrum and then debrided some loose labral fraying/pieces posteriorly along the labral edge as well. we then moved to the subacromial space. Created a lateral portal under direct visualization. Patient had extensive bursitis throughout which was resected with a combination of shaver and ablator wand. We then gently debrided back the acromion as well and the leading anterior lateral edge. The moved our open biceps tenodesis after we irrigated the subacromial space with copious muscle sterile saline. We then reprepped the area used a 15 blade to create about a 2 cm incision right distal to the pec insertion. We then dissected the Bryan down to level the biceps tendon sheath biceps was then brought out of the incision truncated to proceed appropriately at the biceps and was sent to pathology for further evaluation. We then use our Arthrex pec button system in order to then insert the biceps tendon to the periosteum. We drilled unicortical he after whipstitching the distal remaining onto the biceps tendon. Placed the end of the sutures through the pec button and after drilled unicortical he flipped the button inside the humeral shaft we had good fixation we did again were only unicortical at this point protecting all neurovascular structures at all time. We then oversewed the tendon down the periosteum with a free needle. Irrigated the incision with copious muscle sterile saline. 2-0 Vicryl in a running 4 Monocryl and the portals were closed with interrupted nylon stitches. Sterile dressings were applied. Patient tied procedure well no comp occasions [facility] recovery room in stable condition. Next Postoperative note Pharmacy has prescriptions Discussed with mom we will give pictures in 2 weeks and discuss them with a diagram Call with increased pain numbness tingling or further issues arise sling may be removed for shoulder ROM but no arom of elbow until biceps heals This note was generated with [employer] software. It may contain incorrect words, spelling, and punctuation that were not noted in checking the note before signing.
[2019-03-07] MEDS: Epinephrine (1 mg/ml) 1 MG/ML VIAL (08:08)
[2019-03-07] MEDS: Mupirocin Ointment 22gm Tube 1 APPLIC (09:03)
== END 2019-03-07 11:50 | disposition home or self-care (01) ==
LOC: SDC 05:55 → AC 05:55
PROVIDERS: Family Provider Internal Medicine; PCP Internal Medicine; Referring Provider Orthopaedic Surgery; Visit Provider Orthopaedic Surgery
PROC: (CPT 29827; principal; 2019-03-07 07:10)
DX: M75.31 Calcific tendinitis of right shoulder (principal); M75.41 Impingement syndrome of right shoulder; M75.21 Bicipital tendinitis, right shoulder; K21.9 Gastro-esophageal reflux disease without esophagitis; M19.90 Unspecified osteoarthritis, unspecified site; J45.909 Unspecified asthma, uncomplicated; F32.9 Major depressive disorder, single episode, unspecified; I11.9 Hypertensive heart disease without heart failure; E78.00 Pure hypercholesterolemia, unspecified; L73.2 Hidradenitis suppurativa; F43.10 Post-traumatic stress disorder, unspecified; F41.9 Anxiety disorder, unspecified; Z86.2 Personal history of diseases of the blood and blood-forming organs and certain disorders involving the immune mechanism; Z79.899 Other long term (current) drug therapy; F17.200 Nicotine dependence, unspecified, uncomplicated
CPT/HCPCS: 01716; 23430; 29823; 29826; 36415; 80048; 84443; 85027; 88304; 93005; J7120; J2405

== ENCOUNTER 2019-06-11 17:35 | Emergency (ER) | payer MEDICAID, SELFPAY ==
[2019-05-31 09:43] VITALS: BMI 34.2
[2019-06-11 17:36] VITALS: BP 155/112; PULSE 90; RESP 16; TEMP 36.8; O2SAT 98; BMI 35.6
--- NOTE | 2019-06-11 18:03 | EKG12_ITS ---
Test Reason : DYSRHYTHMIA Blood Pressure : / mmHG Vent. Rate : 072 BPM Atrial Rate : 072 BPM P-R Int : 156 ms QRS Dur : 090 ms QT Int : 388 ms P-R-T Axes : 050 012 001 degrees QTc Int : 424 ms Normal sinus rhythm with sinus arrhythmia Normal ECG Confirmed by ANATOLIY VELZAQUEZ ([id number]), editorial cartoonist KATHLEEN MCGREGOR ([id number]) on 06/15/2019 9:25:44 AM Referred By: Confirmed By:ANATOLIY VELAZQUEZ
--- NOTE | 2019-06-11 18:04 | CT_ITS ---
STUDY: CTA HEAD AND NECK WITH CONTRAST REASON FOR EXAM: Female, 33 years old. UNSTEADY GAIT X SEVERAL MONTHS RADIATION DOSAGE (If Supplied By Facility): CTDIvol = ( 31.11 ) mGy, DLP = ( 1531.75 ) mGycm TECHNIQUE: CT angiography was performed with a multi-detector CT scanner. Data acquisition was obtained from the skull base through the vertex following intravenous administration of 100 CC ISOVUE 370. MIP images were reconstructed from the axial data set. Post-processing of the angiographic images was performed, with multiplanar reformation and 3D reconstruction. Individualized dose optimization techniques were used for this CT. COMPARISON: No relevant priors. FINDINGS: Normal bilateral petrous carotid arteries. Normal right cavernous carotid artery with a normal supraclinoid bifurcation. Normal left cavernous carotid artery with a normal supraclinoid bifurcation. Normal right A1 segments of the anterior cerebral artery. Normal left A1 segments of the anterior cerebral artery. Anterior communicating artery not visualized consistent with normal variant). Normal bilateral A2 segments of the anterior cerebral arteries. Normal right M1 and M2 segments of the middle cerebral arteries, with a normal M1 bifurcation. Normal left M1 and M2 segments of the middle cerebral arteries, with a normal M1 bifurcation. Posterior communicating arteries are not visualized consistent with normal variant Normal bilateral vertebral arteries. Normal basilar artery with a normal basilar bifurcation. The visualized bilateral superior cerebellar (SCA) arteries are normal. Normal bilateral P1, P2 and visualized P3 segments of the posterior cerebral arteries. There is no demonstrated aneurysm of the [place]. There is no demonstrated abnormality of the visualized brain. AORTIC ARCH: Normal visualized aortic arch. Normal origins of the brachiocephalic, left common carotid, and left subclavian arteries. RIGHT CAROTID ARTERIES: Normal right common carotid artery (CCA). Normal right common carotid bulb. Normal origin of the right internal carotid (ICA) artery without a hemodynamically significant stenosis. Normal visualized cervical portion of the right internal carotid artery. Normal origin of the right external carotid artery (ECA). LEFT CAROTID ARTERIES: Normal left common carotid artery (CCA). Normal left common carotid bulb. Normal origin of the left internal carotid (ICA) artery without a hemodynamically significant stenosis. Normal visualized cervical portion of the left internal carotid artery. Normal origin of the left external carotid artery (ECA). VERTEBRAL ARTERIES: Normal bilateral vertebral arteries. CT/CTA Head AND Neck W/ Contrast IMPRESSION: Normal CTA Head and neck with contrast. Electronically Signed: Scot Daigle MD at 19:42 EST , Service support ,
[2019-06-11] MEDS: 0.9% Normal Saline 1,000 ML 1000 ML IV (18:19)
[2019-06-11 18:34] LABS: Absolute Lymphocyte Count 2.07 X10^3/uL (0.83-4.51); Basophil# 0.05 X10^3/uL; Basophil% 0.8 % (0-1); Eosinophil# 0.06 X10^3/uL; Eosinophils% 0.9 % (0-5); Hematocrit 43.9 % (37-47); Hemoglobin 14.3 g/dL (12.0-15.0); Lymphocyte # 2.07 X10^3/ul (4.0); Lymphocyte % 31.6 % (19-41); Mean Corp Hgb Conc 32.6 g/dL (32-36); Mean Corpuscular Hgb 28.2 pg (27.0-32.0); Mean Corpuscular Volume 86.6 fL (81-99); Mean Platelet Vol. 11.3 fl (6.2-12.0); Monocyte# 0.36 X10^3/uL; Monocyte% 5.5 % (0-10); NRBC Flagged by Analyzer 0 % (0-5); Neutrophil # 3.99 X10^3/uL (2.7-7.7); Neutrophil % 60.9 % (47-70); Platelet Count 197 K/mm3 (150-450); RBC Distribution Width CV 13.5 % (11.6-14.6); RBC Distribution Width SD 42.8 fl (35.1-43.9); Red Blood Count 5.07 M/mm3 (4.2-5.4); White Blood Count 6.6 K/mm3 (4.4-11.0)
[2019-06-11 18:42] LABS: Internal QC Validated? YES +Cl - CLEAR BKGD; Pregnancy, Serum, hCG Quali. NEGATIVE Negative
[2019-06-11 18:50] LABS: Anion Gap 3 (5-15); BUN 10 mg/dL (7-18); BUN/Creat Ratio 12.4 RATIO (10-20); Calcium,Total 9.3 mg/dL (8.5-10.1); Chloride 111 mmol/L (98-107); Creatinine, Serum 0.81 mg/dL (0.55-1.02); EST Glomerular Filtration Rate 85 mL/min (>60); Est Glom Filt Rate - Afr Amer 103 mL/min (>60); Estimated Creatinine Clearance 87.23 ml/min; Glucose 93 mg/dL (74-106); Potassium 4.3 mmol/L (3.5-5.1); Sodium Level 139 mmol/L (136-145)
--- NOTE | 2019-06-11 19:24 | ED.DCSUM_ITS ---
- ER Visit Summary Date of Service: 06/11/19 Chief Complaint: Stumbling around x1 week, headache History of Present Illness: The patient is a 33 F presenting with intermittent headaches for the past 4 months. She states over the past week she has been stumbling around. She states she sometimes has tingling in both her feet and this causes her to stumble. Today she had tingling in her left arm. She has had this in the past secondary to neck problems. She denies weakness. Denies vision or speech changes. Denies confusion. Denies fever. Denies other complaints. Physical Examination: Vitals are stable. Patient is afebrile. Alert no acute distress. HEENT exam is unremarkable. Neck is supple, nontender Lungs are clear and equal bilaterally. Heart is regular rate and rhythm. Abdomen is soft nontender nondistended. Extremities are unremarkable. Normal distal pulses Skin is warm and dry. No focal neurologic deficit. Subjective paresthesia left forearm Remainder of exam is unremarkable. Emergency Department Course and Treatment: CBC, chemistries unremarkable. EKG sinus rhythm rate of 72 with no acute ischemic changes. Normal CTA Head and neck with contrast. She was given Reglan, Benadryl IV with improvement. On re evaluation, she is resting comfortably. Advised to follow-up with primary care physician. Advised return to ED for worsening complaints. Disposition: Discharge home Impression: Headache, improved; LUE paresthesia This note was generated with [place] [employer] dictation software. It may contain incorrect words, spelling, and punctuation that were not noted in review of the chart prior to signing ED Disposition - Plan for ED Patient: Instructions: HEADACHE, Unspecified Referrals: Meera Dietrich MD [Primary Care Provider] -
[2019-06-11 19:53] VITALS: BP 116/76; PULSE 62; RESP 15; O2SAT 98
[2019-06-11] MEDS: DiphenhydrAMINE 50 MG/ML Syringe 25 MG IV (21:08)
[2019-06-11] MEDS: Metoclopramide 10 MG/2 ML Vial 5 MG IV (21:08)
[2019-06-11 21:12] VITALS: BP 117/75; PULSE 66; RESP 13; O2SAT 98
--- NOTE | 2019-06-11 21:44 | ED.DEP ---
ED Disposition - Plan for ED Patient: Instructions: HEADACHE, Unspecified Referrals: Meera Dietrich MD [Primary Care Provider] -
== END 2019-06-11 22:00 | disposition home or self-care (01) ==
LOC: ED 18:19
PROVIDERS: Emergency Provider Emergency Medicine; PCP Internal Medicine
DX: R51 Headache (principal); R20.2 Paresthesia of skin; I10 Essential (primary) hypertension; K21.9 Gastro-esophageal reflux disease without esophagitis; Z72.0 Tobacco use; Z79.899 Other long term (current) drug therapy
CPT/HCPCS: 70496; 70498; 80048; 84703; 85025; 93005; 96361; 96374; 96375; 99283; J7030; Q9967; A4216

== ENCOUNTER → 2019-07-16 16:06 | Outpatient (CLI) | payer MEDICAID, SELFPAY ==
[2019-07-11 09:11] VITALS: BMI 35.7
[2019-07-16 17:05] LABS: Anion Gap 5 (5-15); BUN 5 mg/dL (7-18); BUN/Creat Ratio 6.7 RATIO (10-20); Calcium,Total 8.7 mg/dL (8.5-10.1); Chloride 104 mmol/L (98-107); Creatinine, Serum 0.75 mg/dL (0.55-1.02); EST Glomerular Filtration Rate 93 mL/min (>60); Est Glom Filt Rate - Afr Amer 113 mL/min (>60); Glucose 111 mg/dL (74-106); Potassium 3.5 mmol/L (3.5-5.1); Sodium Level 137 mmol/L (136-145)
== END ==
PROVIDERS: PCP Internal Medicine; Referring Provider Specialist; Visit Provider Specialist
DX: I49.3 Ventricular premature depolarization (principal); I10 Essential (primary) hypertension; E78.5 Hyperlipidemia, unspecified
CPT/HCPCS: 36415; 80048; 83735

== ENCOUNTER 2019-07-20 10:00 | Outpatient (RCR) | payer MEDICAID, SELFPAY ==
[2019-01-26 11:39] VITALS: BMI 37.2
[2019-02-08 15:07] VITALS: BMI 37.2
--- NOTE | 2019-02-14 14:14 | HP.PTEVAL_ITS ---
Patient's Visit Information GLEN DESAI is a 33 year old F referred to Physical Therapy by NITISH Rojas with a diagnosis of LBP. Date of Evaluation: 02/14/19 Physical Therapist: Tamir Quesada PT, ATC - Visit Plan Frequency: 2x /Week Duration: 3 Weeks Plan: Postural edu, core strengthening (neutral spine), postural edu, nustep - Subjective Findings: Pt reports chronic LBP for years, but notes tingling and numbness down her B legs has been present for one month. Pt reports prolonged sitting and standing result in her feet going numb. Pt reports she is scheduled to see a neurologist this week. Pt repeats forward bending increases her pain the most. Nothing really helps to alleviate her pain. Pt had xrays which revealed DDD and OA. Pt reports sleep difficulty secondary to LBP. Pt reports her LE radi culopathy is intermittent in nature. 6/10 at rest, 9/10 at worst. - Pain LBP Pain Intensity (Out of 10): 6 Pain Intensity Range: 8 - Objective Neuro: B LE sensation is WNL to light touch. B patellar reflex= 2/3. MMT: B LE's are grossly 5/5 throughout. L/S ROM: Pt is severely limited with ext ROM in L/S. All other motions are minimally limited. Repeated movement: not tolerated this date. Pt placed prone on elbows one minute which resulted in B feet going numb. - Goals Goal 1:: Decrease LBP x 50% to aid with sleep Goal Time Frame: 2-4 Weeks Goal 2:: Improve L/s ROM x 1 grade to aid with IADL's Goal Time Frame: 2-4 Weeks Goal 3:: I with HEP Goal Time Frame: 2-4 Weeks - Rehabilitation Potential Physical Therapy Diagnosis: Pt has LBP, LE radiculopathy, and difficulty with sleep secondary to DDD in L/S Rehabilitation Potential: Good - Anticipated Interventions Patient/Client Instruction: Educate patient on: Condition, Plan of Care For the Purpose of:: To improve self management Therapeutic Exercise to Include: Strength training, Endurance training, Body mechanics, Postural training, Dynamic Lumbar Stabilization For the Purpose of:: To decrease pain, To increase ROM, To improve muscle performance and motor function Cryotherapy (ice pack, ice massage): Yes For the Purpose of:: To decrease pain Thank you for the opportunity to evaluate your patient. For Medicare and Medicare HMO plans, please review the plan of care and approve it. It will need to be FAXED BACK to us at [phone] for Medicare purposes. For Medicare only, by signing this I certify the plan of care. Please let me know if there are questions or concerns regarding this plan of care. Physician Signature: Date:
--- NOTE | 2019-04-03 11:02 | HP.PTEVAL2 ---
Patient's Visit Information GLEN DESAI is a 33 year old F referred to Physical Therapy by NITISH Rojas with a diagnosis of R biceps tenodesis and labral debridement. 03/07/19. Date of Evaluation: 04/03/19 Physical Therapist: Tamir Quesada PT, ATC - Visit Plan Frequency: 2-3x /Week Duration: 4-6 Weeks Plan: No active elbow flexion untill 04/19/19. PROM and mobs at this time. - Subjective Findings: DOS: 03/07/19. Pt reports she had a biceps tenodesis and labral debridement. Pt reports she R shoulder pain had an insidious onset in nature. Pt reports she is in a lot of pain today. Pt is R hand dominant. Pt reports she has sleep difficulty secondary to pain. Pt reports she wears her brace at all times except for when she sits down. Pt reports she is currently unemployed. Pt reports she see's the doctor again on April 16. 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 4/10 pain at rest, 9/10 pain at worst (when someone startled her) - Pain R shoulder Intensity: 4 Pain Intensity Range: 9 - Objective Objective: Neuro: B UE sensation is WNL to light touch. Observation: Arthroscopic incisions healed at this time. Surgical cut for biceps is still healing and steri strips are still on. Pt has no signs of infection at this time. ROM: L shoulder AROM flex= 130, abd= 110, ER= 45, IR WNL; R shoulder PROM flex and abd= 110 degrees. R elbow has an extension lag of 45 degrees. MMT: L UE is 5/5 throughout. R UE is not tested this date - Goals Goal 1:: Decrease R shoulder pain x 50% to aid with sleep Goal Time Frame: 4-6 Weeks Goal 2:: Increase R shoulder flexion and abduction ROM x 30 degrees to aid with overhead activity Goal Time Frame: 4-6 Weeks Goal 3:: Increase R shoulder strength x 1 grade to aid with sleep Goal Time Frame: 4-6 Weeks Goal 4:: I with HEP Goal Time Frame: 4-6 Weeks - Rehabilitation Potential Physical Therapy Diagnosis: R shoulder pain, weakness, and limited ROM secondary to R shoulder surgery. Rehabilitation Potential: Good - Anticipated Interventions Patient/Client Instruction: Educate patient on: Condition, Plan of Care For the Purpose of:: To improve self management Therapeutic Exercise to Include: Strength training, Endurance training, Flexibilty training, Passive ROM, Active ROM, Scapular Strength/Stabilization For the Purpose of:: To decrease pain, To increase ROM, To improve muscle performance and motor function Cryotherapy (ice pack, ice massage): Yes For the Purpose of:: To decrease pain Thank you for the opportunity to evaluate your patient. For Medicare and Medicare HMO plans, please review the plan of care and approve it. It will need to be FAXED BACK to us at [phone] for Medicare purposes. For Medicare only, by signing this I certify the plan of care. Please let me know if there are questions or concerns regarding this plan of care. Physician Signature: Date:
--- NOTE | 2019-05-08 10:40 | HP.PTREVAL_ITS ---
Padmini Demarco, PRIVATE BRANCH EXCHANGE REPAIRER-C, It has been my pleasure to treat GLEN DESAI over the last 4 visits for LBP. Please see the progress note below for an update on the physical therapy plan of care! Subjective: Pt reports her LB is stiff today. Objective/Function: LBP is 4/10 this date. L/S ROM: flex is WNL, B SB is min limited, and ext is severely limited. Pt is relatively where she was prior to having shoulder surgery. Pt would benefit from skilled therpy to work on strengthening of L/S and ROM Plan Plan: Begin core stab ex's, LE strethcing and strengthening, postural edu, and HEP Goals Goal 1:: Decrease LBP x 50% to aid with sleep Goal Time Frame: 2-4 Weeks Goal Progress: Progressing Goal 2:: Improve L/s ROM x 1 grade to aid with IADL's Goal Time Frame: 2-4 Weeks Goal Progress: Progressing Goal 3:: I with HEP Goal Time Frame: 2-4 Weeks Goal Progress: Progressing Anticipated Interventions Patient/Client Instruction: Educate patient on: Condition, Plan of Care For the Purpose of:: To improve self management Therapeutic Exercise to Include: Strength training, Endurance training, Body mechanics, Postural training, Dynamic Lumbar Stabilization For the Purpose of:: To decrease pain, To increase ROM, To improve muscle performance and motor function Cryotherapy (ice pack, ice massage): Yes For the Purpose of:: To decrease pain Please do not hesitate to contact me at [phone] by phone or if you have questions or concerns regarding this new plan of care! Sincerely, Tamir Quesada, PT, ATC
--- NOTE | 2019-05-08 10:58 | HP.PTRE(2)_ITS ---
Padmini Demarco, DUANE-C, It has been my pleasure to treat GLEN DESAI over the last 6 visits for R biceps tenodesis and labral debridement. 03/07/19. Please see the progress note below for an update on the physical therapy plan of care! Subjective: I am sore today Objective/Function/Assessment: R shoulder pain ranges 7-9/10. R shoulder ROM: flex= 110, abd= 95, ER= 65, IR moderately limited. R shoulder MMT: 3-/5 throughout. Pt is progressing well at this time toward Rx goals Plan Plan: Progress P/AA/AROM as tolerated Right UE. Goals - Goals Goal 1:: Decrease R shoulder pain x 50% to aid with sleep Goal Time Frame: 4-6 Weeks Goal Progress: Progressing Goal 2:: Increase R shoulder flexion and abduction ROM x 30 degrees to aid with overhead activity Goal Time Frame: 4-6 Weeks Goal Progress: Progressing Goal 3:: Increase R shoulder strength x 1 grade to aid with sleep Goal Time Frame: 4-6 Weeks Goal Progress: Progressing Goal 4:: I with HEP Goal Time Frame: 4-6 Weeks Goal Progress: Progressing Anticipated Interventions Patient/Client Instruction: Educate patient on: Condition, Plan of Care For the Purpose of:: To improve self management Therapeutic Exercise to Include: Strength training, Endurance training, Flexibilty training, Passive ROM, Active ROM, Scapular Strength/Stabilization For the Purpose of:: To decrease pain, To increase ROM, To improve muscle performance and motor function Cryotherapy (ice pack, ice massage): Yes For the Purpose of:: To decrease pain Please do not hesitate to contact me at [phone] by phone or Fax: if you have questions or concerns regarding this new plan of care! Sincerely, Tamir Quesada, PT, ATC
--- NOTE | 2019-06-21 17:36 | HP.PTREVAL_ITS ---
Padmini Demarco, DRUG SAFETY ASSOCIATE-C, It has been my pleasure to treat GLEN DESAI over the last 8 visits for LBP. Please see the progress note below for an update on the physical therapy plan of care! Subjective: I was getting a little better until my R shoulder surgery Objective/Function: LBP is 5/10 this date. Pt has improved all ROM in L/s with exception to ext moderately limited. Pt is I with HEP. Pt is progressing toward Rx goals Plan Plan: Begin core stab ex's, LE strethcing and strengthening, postural edu, and HEP Goals Goal 1:: Decrease LBP x 50% to aid with sleep Goal Time Frame: 2-4 Weeks Goal Progress: Progressing Goal 2:: Improve L/s ROM x 1 grade to aid with IADL's Goal Time Frame: 2-4 Weeks Goal Progress: Progressing Goal 3:: I with HEP Goal Time Frame: 2-4 Weeks Goal Progress: Goal Met Anticipated Interventions Patient/Client Instruction: Educate patient on: Condition, Plan of Care For the Purpose of:: To improve self management Therapeutic Exercise to Include: Strength training, Endurance training, Body mechanics, Postural training, Dynamic Lumbar Stabilization For the Purpose of:: To decrease pain, To increase ROM, To improve muscle performance and motor function Cryotherapy (ice pack, ice massage): Yes For the Purpose of:: To decrease pain Please do not hesitate to contact me at [phone] by phone or if you have questions or concerns regarding this new plan of care! Sincerely, Tamir Quesada, PT, ATC
--- NOTE | 2019-06-21 17:58 | HP.PTRE(2)_ITS ---
Padmini Demarco, PATTERNMAKER HELPER-C, It has been my pleasure to treat GLEN DESAI over the last 9 visits for R biceps tenodesis and labral debridement. 03/07/19. Please see the progress note below for an update on the physical therapy plan of care! Subjective: Pt reports she is making slight and gradual improvements Objective/Function/Assessment: Pain ranges from 6-10/10. R shoulder ROM: flex= 140, abd= 120, ER= 80. R shoulder MMT: ER and abd= 4+/5. All other B UE MMT 5/5 throughout. Pt is progressing well towards Rx goals Plan Plan: Cont as dianna Goals - Goals Goal 1:: Decrease R shoulder pain x 50% to aid with sleep Goal Time Frame: 4-6 Weeks Goal Progress: Progressing Goal 2:: Increase R shoulder flexion and abduction ROM x 30 degrees to aid with overhead activity Goal Time Frame: 4-6 Weeks Goal Progress: Progressing Goal 3:: Increase R shoulder strength x 1 grade to aid with sleep Goal Time Frame: 4-6 Weeks Goal Progress: Progressing Goal 4:: I with HEP Goal Time Frame: 4-6 Weeks Goal Progress: Progressing Anticipated Interventions Patient/Client Instruction: Educate patient on: Condition, Plan of Care For the Purpose of:: To improve self management Therapeutic Exercise to Include: Strength training, Endurance training, Flexibilty training, Passive ROM, Active ROM, Scapular Strength/Stabilization For the Purpose of:: To decrease pain, To increase ROM, To improve muscle performance and motor function Cryotherapy (ice pack, ice massage): Yes For the Purpose of:: To decrease pain Please do not hesitate to contact me at [phone] by phone or Fax: [phone] if you have questions or concerns regarding this new plan of care! Sincerely, Tamir Quesada, PT, ATC
--- NOTE | 2019-08-23 10:28 | HP.PT.NRP ---
GLEN DESAI was seen in my office for initial evaluation on 02/14/19. The following Plan of Care was established for this patient: Initial Frequency: 2x /Week Initial Duration: 3 Weeks Patient/Client Instruction: Educate patient on: Condition, Plan of Care For the Purpose of:: To improve self management Therapeutic Exercise to Include: Strength training, Endurance training, Body mechanics, Postural training, Dynamic Lumbar Stabilization For the Purpose of:: To decrease pain, To increase ROM, To improve muscle performance and motor function Cryotherapy (ice pack, ice massage): Yes For the Purpose of:: To decrease pain This patient was last seen in our office . Pertinent comments regarding their Physical therapy will appear below: Pt was treated for 10 PT visits for LBP through the date of 07/20/2019. Pt has not returned through todays date and is discontinued at this time. At this point I will be discontinuing this patient from physical therapy. I would be happy to see this patient again in the future if found appropriate by the physician. Thank you! Tamir Quesada, PT, ATC
--- NOTE | 2019-08-23 10:30 | HP.PT.NRP(2) ---
GLEN DESAI was seen in my office for initial evaluation on 04/03/19. The following Plan of Care was established for this patient: Initial Frequency: 2-3x /Week Initial Duration: 4-6 Weeks Plan from Re-Evaluation: Cont as dianna Patient/Client Instruction: Educate patient on: Condition, Plan of Care For the Purpose of:: To improve self management Therapeutic Exercise to Include: Strength training, Endurance training, Flexibilty training, Passive ROM, Active ROM, Scapular Strength/Stabilization For the Purpose of:: To decrease pain, To increase ROM, To improve muscle performance and motor function Cryotherapy (ice pack, ice massage): Yes For the Purpose of:: To decrease pain This patient was last seen in our office . Pertinent comments regarding their Physical therapy will appear below: Pt was treated for 11 PT visits for R shoulder pain after surgery through the date of 07/20/2019. Pt has not returned through todays date and is discontinued at this time. At this point I will be discontinuing this patient from physical therapy. I would be happy to see this patient again in the future if found appropriate by the physician. Thank you! Tamir Quesada, PT, ATC
== END 2019-07-20 19:00 | disposition home or self-care (01) ==
LOC: PT 10:00
PROVIDERS: Family Provider Internal Medicine; PCP Internal Medicine; Referring Provider Clinical Nurse Specialist; Visit Provider Clinical Nurse Specialist
DX: M54.5 Low back pain (principal); Z98.890 Other specified postprocedural states
CPT/HCPCS: 97014; 97110; 97140; 97161; 97164; 97530; G0283

== ENCOUNTER → 2019-12-27 06:11 | Outpatient (CLI) | payer MEDICAID, SELFPAY ==
[2019-09-12 09:18] VITALS: BMI 35.6
[2019-12-27 15:11] LABS: Cholesterol 215 mg/dL (200); High Density Lipoprotein 31 mg/dL; Triglycerides 160 mg/dL; Very Low Density Lipoprotein 32 mg/dL (5-40)
[2019-12-28 08:22] LABS: SARS-COV-2 TOTAL ABS Nonreactive (Nonreactive)
== END ==
PROVIDERS: Specialist; PCP Internal Medicine; Referring Provider Nurse Practitioner Adult Health; Visit Provider Nurse Practitioner Adult Health
DX: E78.00 Pure hypercholesterolemia, unspecified (principal)
CPT/HCPCS: 36415; 80061; 86769

== ENCOUNTER → 2020-06-30 08:29 | Outpatient (CLI) | payer MEDICAID, SELFPAY ==
[2019-09-12 09:18] VITALS: BMI 35.6
[2020-06-30 10:49] LABS: AST(SGOT) 14 U/L (15-37); Alanine Aminotransfer ALT/SGPT 19 U/L (13-56); Albumin, Serum 3.6 g/dL (3.2-5.0); Alkaline Phosphatase 69 U/L (45-117); Bilirubin, Direct 0.09 mg/dL (0.00-0.30); Cholesterol 220 mg/dL (200); Globulin 3.7 g/dL (2.2-4.2); High Density Lipoprotein 33 mg/dL; Protein, Total 7.3 g/dL (6.4-8.2); Triglycerides 158 mg/dL; Very Low Density Lipoprotein 32 mg/dL (5-40)
== END ==
PROVIDERS: PCP Internal Medicine; Referring Provider Specialist; Visit Provider Specialist
DX: E78.00 Pure hypercholesterolemia, unspecified (principal)
CPT/HCPCS: 36415; 80061; 80076

== ENCOUNTER 2020-09-03 07:30 | Outpatient (RCR) | payer MEDICAID, SELFPAY ==
[2020-07-02 11:32] VITALS: BMI 36.4
--- NOTE | 2020-08-20 15:01 | HP.PTEVAL ---
Patient's Visit Information GLEN DESAI is a 35 year old F referred to Physical Therapy by NITISH Walters with a diagnosis of ACUTE RIGHT -SIDED LOW BACK PAIN WITH RIGHT SIDE SCIATICA. Date of Evaluation: 08/20/20 Physical Therapist: Checo Restrepo, PT, Cert MDT, OCS - Visit Plan Frequency: 2x /Week Duration: 4 Weeks Plan: PT INTERVENTIONS POSTURAL EX'S,DLS ABD/BACK ,LE FLEXABLITY AND MODALTIES - Subjective This 35 y/o female presents to physical therapy for back pain right . Patient has had LBP with radicular symptoms right leg ~ 3weeks dancing. Pain located right leg to foot with pins /needles and parathesia in foot. Recommeded ibuorofrin. Agrraveting factors walking,bending,lifting,sitting and standing . Alleviating factors colf/heat. Coughing/sneezing -. No abdnormal night pain. Bowel/blader -. Patient has been in pain management. Tried PT in past. Pateint has seen chiropractor Dr Mariscal adjustments.No recent x-rays past year h/o DDD per patient. Patient symptoms affects QOL and function. VOCATION: disablity. SOCIAL: 6 children - Pain Back Pain Intensity (Out of 10): 6 Right Lower Extremity Pain Intensity (Out of 10): 7 Pain Intensity Range: 10 - Objective POSTURE: rmild foward posture. GAIT: reciprocal pattern. NEURO: c/o parathesia needles right leg. PALAPTION: tender SI/LS R> L. SYMMTRIES : align. LUMBAR ROM: flexion mod/severe los flexion and extension,side glide min/mod loss. FLEXABLITY: hams min tight. MMT: quads/hams/hip 4-/5 right left 4/5,ankle 4/5 - Special Tests L/S Slump test right side: Positive L/S Left Straight Leg Raise: Negative L/S Right Straight Leg Raise: Negative Lumbar Standing: Flexion - Mechanical Response: No effect Lumbar Standing: Flexion - Symptoms During Testing: Increases Lumbar Standing: Flexion - Symptoms After Testing: Worse Lumbar Standing: Extension - Mechanical Response: No effect Lumbar Standing: Extension - Symptoms During Testing: Increases Lumbar Standing: Extension - Symptoms After Testing: No effect Lumbar Standing: Right Side Glides - Mechanical Response: No effect Lumbar Standing: Right Side [place] - Symptoms During Testing: No effect Lumbar Standing: Right Side [place] - Symptoms After Testing: No effect Lumbar Standing: Left Side [place] - Mechanical Response: No effect Lumbar Standing: Left Side [place] - Symptoms During Testing: No effect Lumbar Standing: Left Side [place] - Symptoms After Testing: No effect - Goals Goal 1:: Patient to be I with HEP Goal Time Frame: 4-6 Weeks Goal 2:: Patient to improve posture for ADLS' Goal Time Frame: 4-6 Weeks Goal 3:: Patient to decrease LBP with radicular symptoms right leg by 50% or > to improve funtion Goal Time Frame: 8-12 Weeks Goal 4:: Patient to improbe back owestry by 5 points or > to impove function Goal Time Frame: 4-6 Weeks Goal 5:: Patient to improve lumbar ROM for function of recovey. Goal Time Frame: 4-6 Weeks - Rehabilitation Potential Physical Therapy Diagnosis: This patient has right lumbar radicular symptoms with mod/severe blocked with pain ,weakness with posibble derrangement thus nancy baugh from skilled PT Rehabilitation Potential: Fair - Anticipated Interventions Patient/Client Instruction: Educate patient on: Condition, Plan of Care For the Purpose of:: To decrease pain, To increase ROM, To improve muscle performance and motor function, To improve ability to perform ADL's, To increase tolerance to activity/condition/position, To improve ability of physical actions for home/community/work/leisure, To improve health of tissue, To decrease soft tissue restriction, To increase flexibility/ROM, To improve ability to perform tasks related to life management Therapeutic Exercise to Include: Strength training, Body mechanics, Postural training, Flexibilty training, Dynamic Lumbar Stabilization For the Purpose of:: To decrease pain, To increase ROM, To improve muscle performance and motor function, To improve ability to perform ADL's, To increase tolerance to activity/condition/position, To improve ability of physical actions for home/community/work/leisure, To improve health of tissue, To decrease soft tissue restriction, To increase flexibility/ROM, To reduce risk of recurrence TENS: Yes IF ES: Yes Cryotherapy (ice pack, ice massage): Yes Thermo therapy (hot pack): Yes Ultrasound (thermal/non thermal): Yes For the Purpose of:: To decrease pain, To increase ROM, To improve health of tissue, To decrease soft tissue restriction Thank you for the opportunity to evaluate your patient. For Medicare and Medicare HMO plans, please review the plan of care and approve it. It will need to be FAXED BACK to us at [phone] for Medicare purposes. For Medicare only, by signing this I certify the plan of care. Please let me know if there are questions or concerns regarding this plan of care. Physician Signature: Date:
== END 2020-09-03 19:00 | disposition home or self-care (01) ==
LOC: PT 07:30
PROVIDERS: PCP Internal Medicine; Referring Provider Nurse Practitioner Primary Care; Visit Provider Nurse Practitioner Primary Care
DX: M54.41 Lumbago with sciatica, right side (principal)
CPT/HCPCS: 97110; 97162

== ENCOUNTER → 2021-01-14 | Outpatient (CLI) | payer MEDICAID, SELFPAY | END | disposition home or self-care (01) | PROVIDERS: PCP Internal Medicine; Visit Provider Physician Assistant | DX: Z20.822 Contact with and (suspected) exposure to COVID-19 (principal) | CPT/HCPCS: 87635; U0005; U0003 ==

== ENCOUNTER 2021-03-01 11:51 | Emergency (ER) | payer MEDICAID, SELFPAY ==
[2021-03-01 11:52] VITALS: BP 161/94; PULSE 83; RESP 18; TEMP 36.8; O2SAT 98; BMI 38.5
--- NOTE | 2021-03-01 12:37 | EKG12_ITS ---
Test Reason : LOSS OF VISION Blood Pressure : / mmHG Vent. Rate : 073 BPM Atrial Rate : 073 BPM P-R Int : 152 ms QRS Dur : 094 ms QT Int : 378 ms P-R-T Axes : 048 009 -03 degrees QTc Int : 416 ms Sinus rhythm with marked sinus arrhythmia Otherwise normal ECG Confirmed by RADHA NIXON, FRANSISCO ([id number]), editorial director JEIMY LYNN ([id number]) on 03/03/2021 10:56:49 AM Referred By: RAKESH Confirmed By:FRANSISCO GARCIA MD
--- NOTE | 2021-03-01 12:37 | EDS_ITS ---
HPI History of Present Illness Chief Complaint: Numb/Ting Informant: patient Onset/Context/Timing Onset: Today (abouat 30min prior to eval) Context: Sudden Onset Timing: Continuous Current Severity: Mild Maximum Severity: Severe Worsened by: nothing Relieved by: nothing Narrative Narrative: Patient states she sat in her car and was about to go run some errands, she suddenly felt her right lower eyelid start twitching, followed by numbness on the right half of her face including the forehead, and nowhere else. She then went inside of her house and started feeling like my whole body is pressurized. She cannot explain this further. She also states that her legs felt like she was floating on a cloud but denies any weakness or numbness there. She states she had a headache yesterday that was very unusual for her like nothing she has ever had but she cannot explain it at all further. She denies any photophobia today, but did feel nauseated with all of this. She denies any palpitations chest pain shortness of breath. No recent illness. No recent injury. No history of a stroke, no IV drug use, ex-smoker. 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 [facility] Medical History Anemia Arthritis Asthma Asthmatic bronchitis with acute exacerbation Back pain Chronic headaches Dental caries Depression Encounter for screening for COVID-19 Essential hypertension Gastroenteritis GERD (gastroesophageal reflux disease) Hemorrhoids History of anxiety History of bradycardia History of degenerative disc disease History of panic disorder History of tachycardia Hyperlipidemia Impetigo Incontinence Influenza A Limb weakness Lung disease Migraine nonhealing hidradenitis ulcer right axillary area Ovarian cyst Psoriasis of scalp PTSD (post-traumatic stress disorder) PVC's (premature ventricular contractions) Right axillary hidradenitis Scabies infestation Seasonal allergies Shoulder pain Sinusitis, acute Thrush of mouth and esophagus Vitamin D deficiency Home Medications nitroglycerin 0.4 mg SUBLINGUAL Q5M PRN 05/30/18 [History Last Taken Unknown] albuterol sulfate 2 puff INHALATION Q4H PRN PRN 03/01/19 [History Last Taken 03/07/19] clonazepam 0.5 mg tablet 0.5 mg PO 4X/DAY PRN tab 06/18/19 [History Last Taken Unknown] epinephrine 0.3 mg/0.3 mL injection, auto-injector 0.3 mg IM ONCE PRN ea 06/18/19 [History Last Taken Unknown] levonorgestrel 20 mcg/24 hours (7 yrs) 52 mg intrauterine device 1 device INTRAUTERINE ONCE 06/18/19 [History Last Taken Unknown] potassium chloride 20 mEq tablet,extended release 20 meq PO DAILY #90 tab 07/17/19 [Rx Last Taken Unknown] acetaminophen 500 mg capsule 1,000 mg PO Q6H PRN cap 08/29/19 [History Last Taken Unknown] ibuprofen 200 mg tablet 600 mg PO Q6H PRN tab 12/25/19 [History Last Taken Unknown] metoprolol succinate 25 mg tablet,extended release 24 hr 25 mg PO DAILY #30 tab 05/23/20 [Rx Last Taken Unknown] meclizine 25 mg tablet 25 mg PO BID PRN #60 tab 11/28/20 [Rx Last Taken Unknown] pravastatin 20 mg tablet 20 mg PO QHS #90 tab 12/24/20 [Rx Last Taken Unknown] oxaprozin 600 mg tablet 600 mg PO TID #30 tab 02/09/21 [Rx Last Taken Unknown] sertraline 100 mg tablet 100 mg PO DAILY tab 02/09/21 [History Last Taken Unknown] Allergy/AdvReac Type Severity Reaction Status Date / Time prednisone Allergy Intermediate Unknown Verified 03/01/21 11:56 silver sulfadiazine Allergy Intermediate Unknown Verified 03/01/21 11:56 [From Silvadene] bee venom protein (honey bee) Allergy Unknown Verified 03/01/21 11:56 amoxicillin trihydrate AdvReac Nausea Verified 03/01/21 11:56 [From Augmentin] potassium clavulanate AdvReac Nausea Verified 03/01/21 11:56 [From Augmentin] Sulfa (Sulfonamide AdvReac Nausea Verified 03/01/21 11:56 Antibiotics) birds Allergy Unknown Uncoded 03/01/21 11:56 steroids Allergy Unknown Uncoded 03/01/21 11:56 stress test dye Allergy Unknown Uncoded 03/01/21 11:56 Family History Mother Rheumatoid arthritis Heart disease CHF Father Diabetes Heart disease COPD (chronic obstructive pulmonary disease) Sister Asthma Diabetes Grandmother TIA (transient ischemic attack) Surgical History Biceps muscle tear History of arthroscopic surgery of shoulder History of cholecystectomy History of incision and drainage History of left heart catheterization (~11/2007) History of lymph node excision History of myringotomy History of open reduction and internal fixation (ORIF) procedure History of shoulder surgery History of tonsillectomy History of tubal ligation S/P wrist surgery Social History Smoking Status: Current every day smoker tobacco type: cigarettes quit status: considering quitting alcohol intake: never substance use type: does not use caffeine: Yes Type: coffee Number of servings: 2 ROS ROS ED Constitutional Constitutional ED: Denies chills or fever(s) Eyes Eyes: Denies change in vision or diplopia ENT ENT ED: Denies rhinorrhea or sore throat Cardiovascular Cardiovascular: Denies chest pain or palpitations Respiratory/Chest Respiratory/Chest: Denies cough or dyspnea Gastrointestinal Gastrointestinal: Reports nausea; Denies abdominal pain, diarrhea or vomiting Genitourinary Genitourinary ED: Denies dysuria or hematuria Musculoskeletal Musculoskeletal: Reports as per HPI and extremity pain; Denies back pain or neck pain Integumentary Denies abscess or rash Neurologic Neurologic: Reports as per HPI and paresthesias; Denies headache(s) or weakness Psychiatric Psychiatric: Denies anxiety or suicidal thoughts EXAM Physical Exam Const Vital Signs: 03/01/21 11:52 03/01/21 14:39 Temperature 98.3 F Temperature Source Temporal Pulse Rate 83 61 Respiratory Rate 18 15 Blood Pressure 161/94 H 113/74 Blood Pressure Mean 116 87 Pulse Ox 98 99 Oxygen Delivery Method Room Air Room Air Positive well nourished and well developed General Appearance ED: well developed and NAD HEENT Reports moist mucous membranes normocephalic and atraumatic Eyes PERRL and EOMs intact bilaterally Neck full ROM and supple Resp normal respiratory effort and clear to auscultation bilaterally Cardio regular rate, regular rhythm and no murmurs GI non-tender and non-distended Auscultation: normoactive bowel sounds Palpation: soft Back/Spine no CVA tenderness General Back: other FROM Extremity normal to inspection General Extremety ED: Negative for edema, pulses abnormal or tenderness General Extremity: Negative for edema or pulses abnormal Neuro oriented x3 and CN's II-XII intact bilaterally Neuro Narrative: Decreased sensation subjectively right side of face including forehead. No motor deficits in the face or any other cranial nerves or in the periphery. Clear speech. NIHSS 1. Sensorium / Orientation: awake and alert Motor Exam: strength 5/5 throughout Skin no rashes or lesions noted and no wounds MDM MDM MDM Narrative Medical decision making narrative: As below, lab work-up, EKG, CT head is all normal. Blood pressure is little elevated 161/94. She was given Reglan for nausea and to see if her neurologic symptoms would improve, they did not improve at all. She has some occasional mild right lower lid blepharospasm. The etiology of all of this is unknown, but stroke would be unlikely to give her blepharospasm. Her forehead is included with the partial sensory loss. Given all this, I obtained a stat [facility] neurology consult. The neurologist evaluated the patient and agrees this is less likely to be an acute vascular event, but since it is new and the patient has never had this before recommends admitting the patient with MRI/MRA, carotid Dopplers, and cardiac monitoring overnight. The patient wants to have this done but states that she cannot because she has 5 children at home, several of them are special needs children, and her mom is at home taking care of them and is unable to for long. She has the capacity to make this decision, she understands the risks involved, in case this was something vascular or more dangerous, and accepts these risks and will follow up with her doctor or return to the ER when she is able. Lab Data Attestation: I reviewed the patient's lab results. Labs: Laboratory Results - last 24 hr 03/01/21 03/01/21 12:42 12:42 WBC 6.2 RBC 4.97 Hgb 14.1 Hct 43.5 MCV 87.5 MCH 28.4 MCHC 32.4 RDW Std Deviation 43.0 RDW Coeff of Godwin 13.4 Plt Count 203 MPV 10.9 Immature Gran % (Auto) 0.500 Neut % (Auto) 62.9 Lymph % (Auto) 29.0 Mcintosh % (Auto) 5.5 Eos % (Auto) 1.5 Baso % (Auto) 0.6 Absolute Neuts (auto) 3.9 Absolute Lymphs (auto) 1.79 Nucleated RBC % 0 Sodium 139 Potassium 4.0 Chloride 106 Carbon Dioxide 28.0 Anion Gap 5 BUN 6 L Creatinine 0.72 Estim Creat Clear Calc 96.26 Est GFR (MDRD) Af Amer 117 Est GFR (MDRD) Non-Af 96 BUN/Creatinine Ratio 8.3 L Glucose 101 Calcium 9.0 Radiography Diagnostic Testing: Clinical Impression(s) from Imaging Studies Brain CT 03/01/21 12:37 IMPRESSION: Negative head/brain CT without intravenous contrast and unchanged since 06/11/2019. Electronically Signed: Teofilo Alexandre MD at 13:26 EDT , Service support , EKG Initial EKG: Attestation: I personally reviewed and interpreted this EKG as follows: Interpretation: No Acute Injury Pattern and Sinus Arrythmia Prior: Unchanged Discharge Plan Triage Chief Complaint: Numb/Ting ED Provider: Mitchel Dean Dx/Rx/DC Orders Clinical Impression: Facial paresthesia, Blepharospasm of right eye, Alteration in vision Instructions: ED Paraesthesias Prescriptions: No Action epinephrine 0.3 mg/0.3 mL auto-injector 0.3 mg IM ONCE PRN (Reason: Allergic Reaction) RF: 0 Mirena 20 mcg/24 hours (5 yrs) 52 mg intrauterine device 1 device intrauterine ONCE RF: 0 acetaminophen 500 mg capsule 1,000 mg PO Q6H PRN (Reason: Pain) RF: 0 ibuprofen 200 mg tablet 600 mg PO Q6H PRN (Reason: Breakthrough Pain) RF: 0 sertraline 100 mg tablet 100 mg PO DAILY RF: 0 oxaprozin 600 mg tablet 600 mg PO TID Qty: 30 RF: 0 clonazepam 0.5 mg tablet 0.5 mg PO 4X/DAY PRN (Reason: Anxiety) RF: 0 nitroglycerin 0.4 MG tablet 0.4 mg sublingual Q5M PRN (Reason: Chest Pain) RF: 0 albuterol sulfate 1 INHALER inhaler 2 puff inhalation Q4H PRN PRN (Reason: Asthma) RF: 0 potassium chloride 20 mEq tablet extended release 20 meq PO DAILY Qty: 90 RF: 3 metoprolol succinate 25 mg tablet extended release 24 hr 25 mg PO DAILY Qty: 30 RF: 11 meclizine 25 mg tablet 25 mg PO BID PRN (Reason: dizziness) Qty: 60 RF: 3 pravastatin 20 mg tablet 20 mg PO QHS Qty: 90 RF: 3 Primary Care Provider: Meera Dietrich Referrals: Meera Dietrich MD [Primary Care Provider] - As soon as possible Activity Restrictions/Additional Instructions: Take baby aspirin 81 mg once daily. Disposition Disposition: Against Medical Advice
--- NOTE | 2021-03-01 12:37 | CT_ITS ---
EXAM: CT HEAD WITHOUT INTRAVENOUS CONTRAST CLINICAL INDICATION: right facial numbness, headache TECHNIQUE: Multiple axial images were obtained of the head without intravenous contrast. This CT exam was performed using one or more of the following dose reduction techniques: automated exposure control, adjustment of the mA and/or kV according to patient size, and/or use of iterative reconstruction technique. This report was created using [employer] report generation technology. COMPARISON: CT head without contrast 06/11/2019. FINDINGS: BRAIN AND EXTRA-AXIAL SPACES: Unremarkable. No intra- or extra-axial hemorrhage. No evidence of acute infarct. No intracranial mass or mass effect. There is preservation of the nazario/white matter interface. Posterior fossa structures are unremarkable. Ventricles are appropriate for age. No hydrocephalus. Suprasellar cistern and basal cisterns are normal. BONES/JOINTS: Unremarkable. No discrete lytic or blastic abnormalities. SINUSES: Unremarkable as visualized. Clear. MASTOID AIR CELLS: Unremarkable. Clear. ORBITS: Visualized globes, extraocular muscles, optic nerves and retrobulbar fat appear unremarkable. CT/Brain/Head without Contrast IMPRESSION: Negative head/brain CT without intravenous contrast and unchanged since 06/11/2019. Electronically Signed: Teofilo Alexandre MD at 13:26 EDT , Service support ,
[2021-03-01] MEDS: Metoclopramide 10 MG/2 ML Vial 5 MG IV (12:51)
[2021-03-01 12:54] LABS: Absolute Lymphocyte Count 1.79 X10^3/uL (0.83-4.51); Absolute Neutrophil Count 3.9 X10^3/uL (2.0-7.7); Basophil# 0.04 X10^3/uL; Basophil% 0.6 % (0-1); Eosinophil# 0.09 X10^3/uL; Eosinophils% 1.5 % (0-5); Hematocrit 43.5 % (37-47); Hemoglobin 14.1 g/dL (12.0-15.0); Lymphocyte # 1.79 X10^3/ul (0.83-4.51); Mean Corp Hgb Conc 32.4 g/dL (32-36); Mean Corpuscular Hgb 28.4 pg (27.0-32.0); Mean Corpuscular Volume 87.5 fL (81-99); Mean Platelet Vol. 10.9 fl (6.2-12.0); Monocyte# 0.34 X10^3/uL; Monocyte% 5.5 % (0-10); NRBC Flagged by Analyzer 0 % (0-5); Neutrophil # 3.88 X10^3/uL (2.7-7.7); Neutrophil % 62.9 % (47-70); Platelet Count 203 K/mm3 (150-450); RBC Distribution Width CV 13.4 % (11.6-14.6); Red Blood Count 4.97 M/mm3 (4.2-5.4); White Blood Count 6.2 K/mm3 (4.4-11.0)
[2021-03-01 13:01] LABS: Anion Gap 5 (5-15); BUN 6 mg/dL (7-18); BUN/Creat Ratio 8.3 RATIO (10-20); Chloride 106 mmol/L (98-107); Creatinine, Serum 0.72 mg/dL (0.55-1.02); EST Glomerular Filtration Rate 96 mL/min (>60); Est Glom Filt Rate - Afr Amer 117 mL/min (>60); Estimated Creatinine Clearance 96.26 ml/min; Glucose 101 mg/dL (74-106); Sodium Level 139 mmol/L (136-145)
--- NOTE | 2021-03-01 14:26 | TELEMED_ITS ---
[facility] Telemed has confirmed receipt of a request for visit. This document confirms receipt of the order initiating the consult. To find the results of the consultation, please view the patient's reports for the scanned Telemed Consult.
[2021-03-01 14:39] VITALS: BP 113/74; PULSE 61; RESP 15; O2SAT 99
[2021-03-01] MEDS: Aspirin 81 MG TAB.CHEW PO (15:36)
== END 2021-03-01 15:51 | disposition left against medical advice (07) ==
PROVIDERS: Emergency Provider Emergency Medicine; PCP Internal Medicine
DX: R20.2 Paresthesia of skin (principal); G24.5 Blepharospasm; R20.0 Anesthesia of skin; H53.9 Unspecified visual disturbance; G90.512 Complex regional pain syndrome I of left upper limb; I10 Essential (primary) hypertension; E78.5 Hyperlipidemia, unspecified; J45.909 Unspecified asthma, uncomplicated; K21.9 Gastro-esophageal reflux disease without esophagitis; F43.10 Post-traumatic stress disorder, unspecified; F32.A Depression, unspecified; F17.210 Nicotine dependence, cigarettes, uncomplicated; Z79.899 Other long term (current) drug therapy
CPT/HCPCS: 36415; 70450; 80048; 85025; 93005; 96374; 99285; A4216

== ENCOUNTER → 2021-03-09 09:01 | Outpatient (CLI) | payer MEDICAID, SELFPAY ==
--- NOTE | 2021-03-09 09:05 | CDU_ITS ---
Reason For Study: VISUAL DISTURBANCE/ TIA Rt. Velocities/BP Lt. Velocities/BP Prox CCA 107.3/27.8 cm/sec. Prox CCA 133.0/32.0 cm/sec. Mid CCA 115.2/26.5 cm/sec. Mid CCA 126.4/38.6 cm/sec. Dist CCA 94.3/30.4 cm/sec. Dist CCA 111.0/36.4 cm/sec. Prox ICA 68.8/21.5 cm/sec. Prox ICA 79.6/26.7 cm/sec. Mid ICA 86.3/38.0 cm/sec. Mid ICA 97.9/39.5 cm/sec. Dist ICA 101.4/38.8 cm/sec. Dist ICA 99.7/48.6 cm/sec. Rt. ICA/CCA = .9. Lt. ICA/CCA = .8. Prox ECA 111.2/27.8 cm/sec. Prox ECA 108.9/38.5 cm/sec. Rt. Vert. 63.4/17.9 cm/sec. Lt. Vert. 46.8/10.2 cm/sec. Right Extracranial There is intimal thickening but no significant atherosclerotic plaque noted in the right common carotid artery. There is homogeneous, smooth atherosclerotic plaque noted in the right internal carotid artery. There is homogeneous, irregular atherosclerotic plaque noted in the right external carotid artery. Antegrade flow is noted in the right vertebral artery. There is homogeneous, smooth atherosclerotic plaque noted in the right bulb. Left Extracranial There is intimal thickening but no significant atherosclerotic plaque noted in the left common carotid artery. There is heterogeneous, smooth atherosclerotic plaque noted in the left internal carotid artery. There is no significant atherosclerotic plaque noted in the left external carotid artery. Antegrade flow is noted in the left vertebral artery. There is heterogeneous, smooth atherosclerotic plaque noted in the left bulb. Procedure Carotid Duplex 02241. Exam performed in department. VL/Carotid Duplex Ultrasound Interpretation Summary Mild (<50%) stenosis right extracranial internal carotid. Mild (<50%) stenosis left extracranial internal carotid. Flow within the vertebral arteries is antegrade bilaterally. Ordering Physician: Karlo Miller Referring Physician: KOKI WORTHINGTON Performed By: Amna Conde RDCS, RVT
== END ==
PROVIDERS: PCP Internal Medicine; Referring Provider Nurse Practitioner Family; Visit Provider Nurse Practitioner Family
DX: R20.2 Paresthesia of skin (principal); G24.5 Blepharospasm; H54.7 Unspecified visual loss; R42 Dizziness and giddiness; E78.5 Hyperlipidemia, unspecified
CPT/HCPCS: 93880

== ENCOUNTER 2021-03-25 07:00 | Outpatient (RCR) | payer MEDICAID, SELFPAY ==
--- NOTE | 2021-02-17 09:55 | HP.PTEVAL ---
Patient's Visit Information GLEN DESAI is a 35 year old F referred to Physical Therapy by HOLLI Conn with a diagnosis of R shoulder pain. Date of Evaluation: 02/17/21 Physical Therapist: Tamir Quesada, PT, ATC - Visit Plan Frequency: 3x /Week Duration: 4-6 Weeks Plan: R shoulder strengthening with focus on rot cuff, scap stab ex's, UBE, and HEP. CP for pain - Subjective Pt reports her R shoulder has been intermittently sore for several years. Pt notes she had surgery on her R shoulder in the past for a SLAP lesion and biceps tendonopathy. Pt reports this episode of pain occurred approximately 2 weeks ago with an insidious onset in nature. Pt reports she does have 6 kids and has to care for them which could have caused this episode. Pt notes her pain is a bad burning sensation in the anterior and posterior regions. Pt notes if she lays on her back for a long period of time, her R UE will become completely numb. Pt notes she is R hand dominant. Pt reports she has had a recent xray which revealed a medial to lateral downward sloping of the acromian of the R shoulder. Pt reports significant sleep difficulty secondary to pain. Pt reports she has significant difficulty with washing her hair and getting dressed secondary to pain. Pt also notes difficulty with overhead lifting secondary to pain. 6/10 pain at rest, 8/10 pain at worst - Pain R shoulder Pain Intensity (Out of 10): 6 Pain Intensity Range: 8 - Objective Neuro: R UE sensation is hyposensitive to light touch. L UE is WNL to light touch. B bicepital reflex= 2/3. Palpation: Pt is very sore along the distribution of the supraspinatus and LHB tendons. No obvious deformity. ROM: L shoulder flex= 165, abd= 165, ER= 80, IR WNL. R shoulder flex= 105, abd= 30, ER= 45, IR moderately limited. MMT: R shoulder is 3-/5 throughout and painful in all motions. L UE is 5/5 throughout. Special tests: Pos speeds and empty can test - Balance/Special Test Scores Quick DASH Score: 63.6350 - Goals Goal 1:: Decrease R shoulder pain x 50% to aid with sleep Goal Time Frame: 4-6 Weeks Goal 2:: Increase R shoulder strength x 1 grade to aid with IADL's Goal Time Frame: 4-6 Weeks Goal 3:: Increase R shoulder ROM flex and abd x 40 degrees to aid with overhead lifting activity Goal Time Frame: 4-6 Weeks Goal 4:: I with HEP Goal Time Frame: 4-6 Weeks - Rehabilitation Potential Physical Therapy Diagnosis: R shoulder pain, weakness, and limited ROM secondary to R shoulder impingement syndrome Rehabilitation Potential: Good - Anticipated Interventions Patient/Client Instruction: Educate patient on: Condition, Plan of Care For the Purpose of:: To improve self management Therapeutic Exercise to Include: Strength training, Endurance training, Active ROM, Scapular Strength/Stabilization For the Purpose of:: To decrease pain, To increase ROM, To improve muscle performance and motor function Cryotherapy (ice pack, ice massage): Yes For the Purpose of:: To decrease pain Thank you for the opportunity to evaluate your patient. For Medicare and Medicare HMO plans, please review the plan of care and approve it. It will need to be FAXED BACK to us at [phone] for Medicare purposes. For Medicare only, by signing this I certify the plan of care. Please let me know if there are questions or concerns regarding this plan of care. Physician Signature: Date:
--- NOTE | 2021-03-25 07:30 | HP.PTDCSUM ---
It has been my pleasure to treat GLEN DESAI referred by HOLLI Conn, with the diagnosis of R shoulder pain for a total of 8 visit(s). Discharge Date: Please see the following information for a summary of their discharge status. Subjective: Pt reports PT has not helped at all so far. R shoulder Pain Intensity (Out of 10): 7 % Improvement: 5 Objective/Function: R shoulder pain 7/10. Still having sleep difficulty secondary to pain. R shoulder ROM: abd and flex= 95 degrees. R shoulder MMT: 3-/5 and painful. Pt is not making any significant gains at this time Goal 1:: Decrease R shoulder pain x 50% to aid with sleep Goal Progress: Not Progressing Goal 2:: Increase R shoulder strength x 1 grade to aid with IADL's Goal Progress: Not Progressing Goal 3:: Increase R shoulder ROM flex and abd x 40 degrees to aid with overhead lifting activity Goal Progress: Not Progressing Goal 4:: I with HEP Goal Progress: Goal Met Plan: Discontinue, return to doctor If there are questions or concerns regarding this patient's physical therapy, please feel free to call me at [phone]. Thank you for the referral of this patient. Sincerely, Tamir Quesada, PT, ATC Balance/Gait/Functional tests - Balance/Special Test Scores Quick DASH Score: 59.0900
== END 2021-03-25 19:00 | disposition home or self-care (01) ==
LOC: PT 07:00
PROVIDERS: PCP Internal Medicine; Referring Provider Physician Assistant; Visit Provider Physician Assistant
DX: M25.511 Pain in right shoulder (principal); S43.431D Superior glenoid labrum lesion of right shoulder, subsequent encounter
CPT/HCPCS: 97110; 97161; 97164

== ENCOUNTER → 2021-04-27 08:35 | Outpatient (CLI) | payer MEDICAID, SELFPAY ==
[2021-04-27 09:35] LABS: AST(SGOT) 16 U/L (15-37); Alanine Aminotransfer ALT/SGPT 24 U/L (13-56); Albumin, Serum 3.7 g/dL (3.2-5.0); Alkaline Phosphatase 73 U/L (45-117); Bilirubin, Direct 0.07 mg/dL (0.00-0.30); Cholesterol 190 mg/dL (200); Globulin 3.8 g/dL (2.2-4.2); High Density Lipoprotein 29 mg/dL; Protein, Total 7.5 g/dL (6.4-8.2); Triglycerides 170 mg/dL; Very Low Density Lipoprotein 34 mg/dL (5-40)
[2021-04-27 16:41] LABS: CRP 7.55 mg/L (0.0-3.0); Thyroid Stim Hormone (TSH) 1.14 uIU/mL (0.358-3.74)
[2021-04-27 16:48] LABS: Erythrocyte Sedimentation Rate 16 mm/hr (0-30)
[2021-04-27 16:53] LABS: Vitamin B12 512 pg/mL (211-911)
[2021-04-29 16:34] LABS: ANTINUCLEAR ANTIBODIES DIRECT Negative (Negative)
== END ==
PROVIDERS: PCP Internal Medicine; Referring Provider Psychiatry & Neurology Neurology; Visit Provider Nurse Practitioner Family
DX: G62.9 Polyneuropathy, unspecified (principal); E78.00 Pure hypercholesterolemia, unspecified; E78.5 Hyperlipidemia, unspecified
CPT/HCPCS: 36415; 80061; 80076; 82607; 82746; 84443; 85652; 86038; 86140; 86225; 86235

== ENCOUNTER 2021-05-14 15:22 | Outpatient (CLI) | payer MEDICAID, SELFPAY ==
--- NOTE | 2021-05-14 15:23 | MRI_ITS ---
STUDY: MRI BRAIN WITH AND WITHOUT CONTRAST REASON FOR EXAM: Female, 35 years old. Trigeminal Neuropathy, Facial numbness - RIGHT TECHNIQUE: Standardized multiplanar fat and water weighted pulse sequences were obtained. 20ML IV DOTAREM was administered for the contrast portion of the examination. COMPARISON: 03/01/2021 FINDINGS: Normal size of the ventricles and extra-axial spaces for the patient''s age. Normal white matter tracts of the supratentorial brain. Normal bilateral basal ganglia. Normal thalami. There is no extra-axial fluid accumulation. There is no enhancing intra-axial or extra-axial abnormality. Normal sella turcica, pituitary gland, infundibular stalk, optic chiasm and hypothalamus. Normal tectal plate and pineal gland. Normal midbrain, belén and medulla. Normal cerebellum. Normal basal cisterns. MRI/Brain W/WO Contrast IMPRESSION: Unremarkable unenhanced and enhanced MRI of the brain. Electronically Signed: Toro Bradshaw MD at 11:03 EST Tel , Service support ,
--- NOTE | 2021-05-14 15:40 | MRI_ITS ---
STUDY: MRI RIGHT SHOULDER REASON FOR EXAM: Female, 35 years old. new onset of pain in joint anteriorly and along superior aspect of right shoulder. No known recent injury. Hx of previous surgery on right shoulder 2019 and MRI of Rt Shoulder in 2019. TECHNIQUE: Standardized fat and water weighted pulse sequences were obtained in all 3 orthogonal planes. COMPARISON: Right shoulder x-ray dated February 09, 2021. MRI of the right shoulder dated May 18, 2018 FINDINGS: There is mild to moderate supraspinatus tendinosis with tendon thickening at the greater tuberosity insertion site, in addition to some small areas of interstitial tearing. No full-thickness tear or retraction is present. A tiny glenohumeral joint effusion is also present. Normal infraspinatus tendon. Normal subscapularis tendon. Normal teres minor tendon. Normal supraspinatus muscle. Normal infraspinatus muscle. Normal subscapularis muscle. Normal teres minor muscle. Normal glenohumeral articulation. Normal humeral head and visualized proximal humerus. Normal biceps labral complex. Normal intracapsular long biceps tendon. A small linear tear is present in the posterior superior aspect of the glenoid labrum measuring 6.4 mm. Normal remaining aspects of the glenoid labrum. Normal capsulo- ligamentous complex. Normal rotator interval. Normal acromioclavicular articulation. There is a Type II morphology (curved), with a neutral orientation. There is no subacromial-subdeltoid bursal fluid. Normal visualized coracohumeral and coracoacromial ligaments. Normal quadrilateral space. Normal axillary space. Normal deltoid muscle. Normal trapezius muscle. MRI/Upper Ext Joint Only(Routine) IMPRESSION: 1. mild to moderate supraspinatus tendinosis with tendon thickening at the greater tuberosity insertion site, in addition to some small areas of interstitial tearing. 2. A small linear tear is present in the posterior superior aspect of the glenoid labrum measuring 6.4 mm. Normal remaining aspects of the glenoid labrum. Electronically Signed: Daniel Mustafa MD at 23:21 EST , Service support ,
[2021-05-14 15:50] LABS: CREATININE FINGERSTICK 0.8 mg/dL (0.55-1.02); EGFR FINGERSTICK > 60.0000 mL/min (>60)
== END 2021-05-14 23:59 | disposition short-term general hospital (02) ==
LOC: MRI 15:23
PROVIDERS: PCP Internal Medicine; Visit Provider Psychiatry & Neurology Neurology
DX: R20.0 Anesthesia of skin (principal); G50.9 Disorder of trigeminal nerve, unspecified
CPT/HCPCS: 70553; 73221; A9575

== ENCOUNTER 2021-06-05 07:18 | Outpatient (CLI) | payer MEDICAID, SELFPAY ==
--- NOTE | 2021-06-05 09:49 | NEURO ---
NCS and/or EMG Patient Report Ordering Doctor: Eduardo Naqvi DATE OF SERVICE: 06/05/21 Indication: Multiple neurological complaints including: numbness of the right 5th digit, poor dexterity, right shoulder pain, right shoulder numbness. History of prior shoulder surgeries and ulnar nerve transposition. Findings: Nerve conduction studies were performed in the right and left upper extremities. The right median motor study recording the abductor pollicis brevis showed a borderline amplitude, normal distal latency and normal conduction velocity. The right ulnar motor study recording the abductor digiti minimi showed a normal amplitude, normal distal latency and normal conduction velocity. No conduction block or focal slowing was present across the elbow. The right median sensory response recording digit two showed a normal amplitude, latency and conduction velocity. The right ulnar sensory response recording digit five showed a normal amplitude, latency and conduction velocity. The right radial sensory response recording over the extensor snuff box showed a normal amplitude, latency and conduction velocity. Right median-ulnar lumbrical / interosseous motor latencies showed a borderline normal median latency compared to the ulnar. The left median motor study recording the abductor pollicis brevis showed a normal amplitude, normal distal latency and normal conduction velocity. The left ulnar motor study recording the abductor digiti minimi showed a normal amplitude, normal distal latency and normal conduction velocity. No conduction block or focal slowing was present across the elbow. The left median sensory response recording digit two showed a normal amplitude, latency and conduction velocity. The left ulnar sensory response recording digit five showed a normal amplitude, latency and conduction velocity. The left radial sensory response recording over the extensor snuff box showed a normal amplitude, latency and conduction velocity. Left median-ulnar lumbrical / interosseous motor latencies showed a borderline normal median latency compared to the ulnar. Needle EMG of the right upper extremity and cervical paraspinal muscles was performed. No denervation was seen in any muscle. Activation of the deltoid was reduced due to pain. All other motor unit morphology, activation and recruitment patterns were normal. Needle EMG of the left upper extremity was omitted to the absence of symptoms in that limb and the paucity of findings in the right upper extremity. Impression: This is a borderline study. There is no definitive electrophysiologic evidence of entrapment neuropathy in either upper extremity. The borderline right median motor amplitude is of unclear significance. There is no active denervation or chronic reinnervation on needle EMG to suggest recent or remote axonal injury. In addition, there is no electrophysiologic evidence of cervical radiculopathy in the right upper extremity. Finally, compared to the prior study performed in 2016, there has been interval resolution of the focal slowing seen in the ulnar nerve across the left elbow. Jean Hliliard D.O. Multi Select Codes Neurology Neurology Interp Codes: 28291-57 [facility] [place] done w/n test comp (interp) and 80599-[facility] ([facility]p)
== END 2021-06-05 23:59 | disposition short-term general hospital (02) ==
LOC: PSN 07:19
PROVIDERS: PCP Internal Medicine; Referring Provider Physician Assistant; Visit Provider Physician Assistant
DX: R20.0 Anesthesia of skin (principal); G50.9 Disorder of trigeminal nerve, unspecified; G62.9 Polyneuropathy, unspecified
CPT/HCPCS: 95886; 95913

== ENCOUNTER 2021-09-11 22:10 | Emergency (ER) | payer MEDICAID, SELFPAY ==
[2021-09-11 22:12] VITALS: BP 132/76; PULSE 80; RESP 18; TEMP 36.9; O2SAT 99; BMI 38.4
[2021-09-11] MEDS: 0.9% Normal Saline 1,000 ML 1000 ML IV (22:35)
--- NOTE | 2021-09-11 22:35 | EKG12_ITS ---
Test Reason : DIZZINESS Blood Pressure : / mmHG Vent. Rate : 073 BPM Atrial Rate : 073 BPM P-R Int : 150 ms QRS Dur : 092 ms QT Int : 392 ms P-R-T Axes : 048 010 005 degrees QTc Int : 431 ms Sinus rhythm with frequent Premature ventricular complexes Otherwise normal ECG Confirmed by RADHA NIXON, FRANSISCO ([id number]), editor managing director JEIMY LYNN ([id number]) on 09/14/2021 1:25:54 PM Referred By: BAILEY Confirmed By:FRANSISCO GARCIA MD
--- NOTE | 2021-09-11 22:37 | EX.ED.DYSGE1 ---
HPI History of Present Illness Chief Complaint: Dizziness Informant: patient Onset/Context/Timing Onset: Today Context: Gradual Onset Current Severity: Mild Maximum Severity: Moderate Narrative Narrative: Patient presents secondary to lightheadedness and palpitations. She is a history of frequent PVCs and is currently on nadolol. Patient states she is just felt slightly off today. When trying to go to sleep tonight she noted more palpitations. She checked her blood pressure at home and her cuff was only reading her heart rate in the 30s. She denies chest pain but does admit to a slight amount of pressure. [facility] Medical History Anemia Arthritis Asthma Back pain Chronic headaches Dental caries Depression Essential hypertension GERD (gastroesophageal reflux disease) Hemorrhoids History of anxiety History of bradycardia History of degenerative disc disease History of panic disorder History of tachycardia Hyperlipidemia Impetigo Incontinence Influenza A Limb weakness Lung disease Migraine Ovarian cyst Psoriasis of scalp PTSD (post-traumatic stress disorder) PVC's (premature ventricular contractions) Right axillary hidradenitis Scabies infestation Seasonal allergies Shoulder pain Sinusitis, acute Thrush of mouth and esophagus Vitamin D deficiency Home Medications nitroglycerin 0.4 mg SUBLINGUAL Q5M PRN 05/30/18 [History Last Taken Unknown] albuterol sulfate 2 puff INHALATION Q4H PRN PRN 03/01/19 [History Last Taken 03/07/19] clonazepam 0.5 mg tablet 0.5 mg PO 4X/DAY PRN tab 06/18/19 [History Last Taken Unknown] epinephrine 0.3 mg/0.3 mL injection, auto-injector 0.3 mg IM ONCE PRN ea 06/18/19 [History Last Taken Unknown] levonorgestrel 20 mcg/24 hours (7 yrs) 52 mg intrauterine device 1 device INTRAUTERINE ONCE 06/18/19 [History Last Taken Unknown] acetaminophen 500 mg capsule 1,000 mg PO Q6H PRN cap 08/29/19 [History Last Taken Unknown] pravastatin 20 mg tablet 20 mg PO QHS #90 tab 12/24/20 [Rx Last Taken Unknown] sertraline 100 mg tablet 100 mg PO DAILY tab 02/09/21 [History Last Taken Unknown] meclizine 25 mg tablet See Rx Instructions .ROUTE .COMPLEX #60 tab 03/27/21 [Rx Last Taken Unknown] aspirin 81 mg chewable tablet 81 mg PO DAILY 04/08/21 [History Last Taken Unknown] doxycycline monohydrate 100 mg capsule 100 mg PO BID PRN cap 04/27/21 [History Last Taken Unknown] omeprazole 20 mg capsule,delayed release 20 mg PO DAILY cap 04/27/21 [History Last Taken Unknown] potassium chloride 20 mEq tablet,extended release 20 meq PO DAILY PRN tab 04/27/21 [History Last Taken Unknown] nadolol 20 mg tablet 10 mg PO DAILY #15 tab 08/17/21 [Rx Last Taken Unknown] ondansetron 4 mg PO Q8H PRN #10 tab 09/12/21 [Rx Last Taken Unknown] Allergy/AdvReac Type Severity Reaction Status Date / Time prednisone Allergy Intermediate Unknown Verified 09/11/21 22:16 silver sulfadiazine Allergy Intermediate Unknown Verified 09/11/21 22:16 [From Silvadene] bee venom protein (honey bee) Allergy Unknown Verified 09/11/21 22:16 amoxicillin trihydrate AdvReac Nausea Verified 09/11/21 22:16 [From Augmentin] potassium clavulanate AdvReac Nausea Verified 09/11/21 22:16 [From Augmentin] Sulfa (Sulfonamide AdvReac Nausea Verified 09/11/21 22:16 Antibiotics) birds Allergy Unknown Uncoded 09/11/21 22:16 steroids Allergy Unknown Uncoded 09/11/21 22:16 stress test dye Allergy Unknown Uncoded 09/11/21 22:16 Family History Mother Rheumatoid arthritis Heart disease CHF Father Diabetes Heart disease COPD (chronic obstructive pulmonary disease) Sister Asthma Diabetes Grandmother TIA (transient ischemic attack) Surgical History Biceps muscle tear History of arthroscopic surgery of shoulder History of cholecystectomy History of incision and drainage History of left heart catheterization (~11/2007) History of lymph node excision History of myringotomy History of open reduction and internal fixation (ORIF) procedure History of shoulder surgery History of tonsillectomy History of tubal ligation S/P wrist surgery Social History Smoking Status: Current every day smoker tobacco type: cigarettes quit status: considering quitting alcohol intake: never substance use type: does not use caffeine: Yes Type: coffee Number of servings: 2 ROS ROS ED Constitutional Constitutional ED: Denies chills or fever(s) Eyes Eyes: Denies change in vision ENT ENT ED: Denies sore throat Cardiovascular Cardiovascular: Reports chest pain and palpitations Respiratory/Chest Respiratory/Chest: Denies cough or dyspnea Gastrointestinal Gastrointestinal: Reports nausea; Denies abdominal pain or vomiting Genitourinary Genitourinary ED: Denies dysuria Musculoskeletal Musculoskeletal: Denies back pain or neck pain Integumentary Denies rash Neurologic Neurologic: Denies headache(s) or weakness Allergic/Immunologic Allergic/Immunologic ED: Denies urticaria EXAM Physical Exam Const Vital Signs: 09/11/21 22:12 09/11/21 22:26 09/11/21 22:49 Temperature 98.4 F Temperature Source Oral Pulse Rate 80 71 Respiratory Rate 18 16 Respiratory Effort Short of Breath Respiratory Pattern Normal Blood Pressure 132/76 H 118/77 Blood Pressure Mean 94 90 Pulse Ox 99 100 Oxygen Delivery Method Room Air Room Air 09/12/21 00:10 Temperature Temperature Source Pulse Rate 62 Respiratory Rate 11 L Respiratory Effort Respiratory Pattern Blood Pressure 113/77 Blood Pressure Mean 89 Pulse Ox 95 Oxygen Delivery Method Room Air Positive well nourished and well developed General Appearance ED: well developed HEENT Reports moist mucous membranes Eyes PERRL and EOMs intact bilaterally Neck supple Chest Wall inspection of chest normal and palpation of chest normal Resp normal respiratory effort and clear to auscultation bilaterally Cardio regular rate and regular rhythm GI non-tender Palpation: soft Extremity normal to inspection Neuro oriented x3 Sensorium / Orientation: alert Psych mental status grossly normal Skin no rashes or lesions noted MDM MDM MDM Narrative Medical decision making narrative: Patient placed on cardiac/vascular sonographer. EKG, lab work obtained. IV fluids ordered. Metoprolol initially ordered but held as frequency of PVCs decreased. Lab Data Attestation: I reviewed the patient's lab results. Labs: Laboratory Results - last 24 hr 09/11/21 09/11/21 09/11/21 22:03 22:03 22:03 WBC 12.3 H RBC 5.35 Hgb 15.1 H Hct 46.6 MCV 87.1 MCH 28.2 MCHC 32.4 RDW Std Deviation 43.4 RDW Coeff of Godwin 13.5 Plt Count 221 MPV 11.1 Immature Gran % (Auto) 0.600 Neut % (Auto) 53.5 Lymph % (Auto) 37.9 Saunders % (Auto) 6.3 Eos % (Auto) 1.2 Baso % (Auto) 0.5 Absolute Neuts (auto) 6.6 Absolute Lymphs (auto) 4.66 H Nucleated RBC % 0 Differential Comment SCANNED Atypical Lymphocytes 1+ Sodium 137 Potassium 3.6 Chloride 103 Carbon Dioxide 28.0 Anion Gap 6 BUN 10 Creatinine 0.71 Estim Creat Clear Calc 96.67 Est GFR (MDRD) Af Amer 119 Est GFR (MDRD) Non-Af 99 BUN/Creatinine Ratio 14.2 Glucose 97 Calcium 9.6 Magnesium 2.2 Troponin I High Sens < 3 L HCG, Quant < 1 Radiography Chest X-Ray - ED: 1 View, Read by ED Physician, Normal, Heart, Lungs and Mediastinum Diagnostic Testing: Clinical Impression(s) from Imaging Studies Chest X-Ray 09/11/21 22:50 IMPRESSION: No acute pulmonary disease. Electronically Signed: Ganesh Shi MD at 23:36 EDT , EKG Initial EKG: Attestation: I personally reviewed and interpreted this EKG as follows: Interpretation: Sinus Rhythm (Sinus at 73 with frequent PVCs. No acute ischemia.) Treatment and Re-Evaluation Narrative: With IV fluids patient's PVCs seem to decrease in frequency. Lab work obtained which revealed no significant electrolyte derangement. Chest x-ray per my interpretation unremarkable. After 1 L IV fluid patient states she felt slightly nauseated and still somewhat dizzy. She was given a dose of Zofran and additional 500 cc IV fluids. At this time patient feels significantly improved and states that she is rarely even noticing the PVCs at this time. She will be discharged home with a prescription for Zofran. She is to increase fluids neck several days and take her nadolol. Discharge Plan Triage Chief Complaint: Dizziness ED Provider: Nga Gann Dx/Rx/DC Orders Clinical Impression: Frequent PVCs Instructions: PVCs Prescriptions: New ondansetron 4 mg tablet,disintegrating 4 mg PO Q8H PRN (Reason: nausea and vomiting) Qty: 10 RF: 0 No Action epinephrine 0.3 mg/0.3 mL auto-injector 0.3 mg IM ONCE PRN (Reason: Allergic Reaction) RF: 0 Mirena 20 mcg/24 hours (5 yrs) 52 mg intrauterine device 1 device intrauterine ONCE RF: 0 acetaminophen 500 mg capsule 1,000 mg PO Q6H PRN (Reason: Pain) RF: 0 sertraline 100 mg tablet 100 mg PO DAILY RF: 0 doxycycline monohydrate 100 mg capsule 100 mg PO BID PRNRF: 0 potassium chloride 20 mEq tablet extended release 20 meq PO DAILY PRNRF: 0 omeprazole 20 mg capsule,delayed release(DR/EC) 20 mg PO DAILY RF: 0 aspirin 81 mg tablet,chewable 81 mg PO DAILY RF: 0 clonazepam 0.5 mg tablet 0.5 mg PO 4X/DAY PRN (Reason: Anxiety) RF: 0 nitroglycerin 0.4 MG tablet 0.4 mg sublingual Q5M PRN (Reason: Chest Pain) RF: 0 albuterol sulfate 1 INHALER inhaler 2 puff inhalation Q4H PRN PRN (Reason: Asthma) RF: 0 pravastatin 20 mg tablet 20 mg PO QHS Qty: 90 RF: 3 meclizine 25 mg tablet See Rx Instructions .ROUTE .COMPLEX Qty: 60 RF: 11 nadolol 20 mg tablet 10 mg PO DAILY Qty: 15 RF: 12 Primary Care Provider: Meera Dietrich Referrals: Meera Dietrich MD [Primary Care Provider] - Andrez Ballesteros MD [STAFF PHYSICIAN] - 10-14 Days if not better Disposition Disposition: Home, Self Care
[2021-09-11 22:49] VITALS: BP 118/77; PULSE 71; RESP 16; O2SAT 100
--- NOTE | 2021-09-11 22:50 | RAD_ITS ---
INDICATION: cp EXAMINATION: Frontal view of the chest COMPARISON: None. FINDINGS: Frontal view of the chest was obtained. The cardiac silhouette is not enlarged. No confluent airspace disease. No pneumothorax. No acute fracture identified. RAD/Chest 1 View (Portable) IMPRESSION: No acute pulmonary disease. Electronically Signed: Ganesh Shi MD at 23:36 EDT ,
[2021-09-11 22:55] LABS: Absolute Lymphocyte Count 4.66 X10^3/uL (0.83-4.51); Absolute Neutrophil Count 6.6 X10^3/uL (2.0-7.7); Basophil# 0.06 X10^3/uL; Basophil% 0.5 % (0-1); Eosinophil# 0.15 X10^3/uL; Eosinophils% 1.2 % (0-5); Hematocrit 46.6 % (37-47); Hemoglobin 15.1 g/dL (12.0-15.0); Lymphocyte # 4.66 X10^3/ul (0.83-4.51); Lymphocyte % 37.9 % (19-41); Mean Corp Hgb Conc 32.4 g/dL (32-36); Mean Corpuscular Hgb 28.2 pg (27.0-32.0); Mean Corpuscular Volume 87.1 fL (81-99); Mean Platelet Vol. 11.1 fl (6.2-12.0); Monocyte# 0.77 X10^3/uL; Monocyte% 6.3 % (0-10); NRBC Flagged by Analyzer 0 % (0-5); Neutrophil % 53.5 % (47-70); POSITIVE MORPHOLOGY YES; Platelet Count 221 K/mm3 (150-450); RBC Distribution Width CV 13.5 % (11.6-14.6); RBC Distribution Width SD 43.4 fl (35.1-43.9); Red Blood Count 5.35 M/mm3 (4.2-5.4); White Blood Count 12.3 K/mm3 (4.4-11.0)
[2021-09-11 23:04] LABS: Differential Indicated SCAN CRITERIA MET
[2021-09-11 23:16] LABS: Anion Gap 6 (5-15); BUN 10 mg/dL (7-18); BUN/Creat Ratio 14.2 RATIO (10-20); Calcium,Total 9.6 mg/dL (8.5-10.1); Chloride 103 mmol/L (98-107); Creatinine, Serum 0.71 mg/dL (0.55-1.02); EST Glomerular Filtration Rate 99 mL/min (>60); Est Glom Filt Rate - Afr Amer 119 mL/min (>60); Estimated Creatinine Clearance 96.67 ml/min; Glucose 97 mg/dL (74-106); Magnesium 2.2 mg/dL (1.6-2.6); Potassium 3.6 mmol/L (3.5-5.1); Sodium Level 137 mmol/L (136-145); Troponin-I HS < 3 pg/mL (3.0-54.0)
[2021-09-11 23:19] LABS: hCG Titer Quant., Serum < 1 mIU/mL (1-3)
[2021-09-11 23:44] LABS: Atypical Lymphocyte 1+ %; Differential Comment SCANNED
[2021-09-12 00:10] VITALS: BP 113/77; PULSE 62; RESP 11; O2SAT 95
[2021-09-12] MEDS: Ondansetron 4 MG/2 ML Vial IV (00:30)
[2021-09-12 01:19] VITALS: BP 105/65; PULSE 56; RESP 13; O2SAT 96
== END 2021-09-12 01:32 | disposition home or self-care (01) ==
PROVIDERS: Emergency Provider Emergency Medicine; PCP Internal Medicine; Visit Provider Emergency Medicine
DX: I49.3 Ventricular premature depolarization (principal); I10 Essential (primary) hypertension; E78.5 Hyperlipidemia, unspecified; J45.909 Unspecified asthma, uncomplicated; K21.9 Gastro-esophageal reflux disease without esophagitis; M19.90 Unspecified osteoarthritis, unspecified site; F32.A Depression, unspecified; F17.210 Nicotine dependence, cigarettes, uncomplicated; Z79.82 Long term (current) use of aspirin; Z79.899 Other long term (current) drug therapy
CPT/HCPCS: 71045; 80048; 83735; 84484; 84702; 85025; 93005; 96361; 96374; 99285; J2405

== ENCOUNTER → 2021-09-17 | Outpatient (CLI) | payer MEDICAID, SELFPAY | END | disposition home or self-care (01) | LOC: PSN 09:59 | PROVIDERS: PCP Internal Medicine; Referring Provider Nurse Practitioner Family; Visit Provider Nurse Practitioner Family | DX: R00.2 Palpitations (principal); I49.3 Ventricular premature depolarization; I10 Essential (primary) hypertension | CPT/HCPCS: 93225; 93226 ==

== ENCOUNTER → 2021-11-16 | Outpatient (CLI) | payer MEDICAID, SELFPAY ==
[2021-11-16 09:44] LABS: Absolute Lymphocyte Count 2.53 X10^3/uL (0.83-4.51); Absolute Neutrophil Count 3.6 X10^3/uL (2.0-7.7); Basophil# 0.05 X10^3/uL; Basophil% 0.7 % (0-1); Eosinophil# 0.06 X10^3/uL; Eosinophils% 0.9 % (0-5); Hematocrit 43.4 % (37-47); Lymphocyte # 2.53 X10^3/ul (0.83-4.51); Lymphocyte % 37.9 % (19-41); Mean Corp Hgb Conc 32.3 g/dL (32-36); Mean Corpuscular Hgb 28.6 pg (27.0-32.0); Mean Corpuscular Volume 88.8 fL (81-99); Mean Platelet Vol. 11.2 fl (6.2-12.0); Monocyte# 0.37 X10^3/uL; Monocyte% 5.5 % (0-10); NRBC Flagged by Analyzer 0 % (0-5); Neutrophil # 3.64 X10^3/uL (2.7-7.7); Neutrophil % 54.6 % (47-70); Platelet Count 201 K/mm3 (150-450); RBC Distribution Width CV 13.5 % (11.6-14.6); RBC Distribution Width SD 44.2 fl (35.1-43.9); Red Blood Count 4.89 M/mm3 (4.2-5.4); White Blood Count 6.7 K/mm3 (4.4-11.0)
[2021-11-16 10:18] LABS: CRP 7.27 mg/L (0.0-3.0)
[2021-11-16 10:33] LABS: AST(SGOT) 12 U/L (15-37); Alanine Aminotransfer ALT/SGPT 24 U/L (13-56); Albumin, Serum 3.5 g/dL (3.2-5.0); Alkaline Phosphatase 65 U/L (45-117); Bilirubin, Direct 0.08 mg/dL (0.00-0.30); Cholesterol 199 mg/dL (200); Globulin 3.6 g/dL (2.2-4.2); High Density Lipoprotein 32 mg/dL; Protein, Total 7.1 g/dL (6.4-8.2); Triglycerides 148 mg/dL; Very Low Density Lipoprotein 30 mg/dL (5-40)
== END | disposition home or self-care (01) ==
LOC: LAB 08:47
PROVIDERS: Nurse Practitioner Family; PCP Internal Medicine; Visit Provider Psychiatry & Neurology Neurology
DX: G50.9 Disorder of trigeminal nerve, unspecified (principal); E78.5 Hyperlipidemia, unspecified; E78.00 Pure hypercholesterolemia, unspecified
CPT/HCPCS: 36415; 80061; 80076; 85025; 86140

== ENCOUNTER 2022-01-25 12:00 | Outpatient (RCR) | payer MEDICAID, SELFPAY ==
--- NOTE | 2021-11-27 08:01 | HP.PTEVAL ---
Patient's Visit Information GLEN DESAI is a 36 year old F referred to Physical Therapy by Dr. Bright Coffey MD with a diagnosis of Cervicalgia, R shoulder pain. Date of Evaluation: 11/27/21 Physical Therapist: KT Gonsales - Visit Plan Frequency: 2-3x /Week Duration: 6 Weeks Plan: 2-3X/ week for 6 weeks for US to the upper paraspinals, postural exercises, shoulder AAROm/AROM, RC strengthening, c-spine isometrics, with a HEP - Subjective Dr wants her to do PT for her neck and R shoulder. If PT does not work, would like a neck MRI. She has CRP type 1 of the R shoulder that was just Dx recently. It started on Mar 01 and called the squad because she lost 1/2 feeling on the R side. She left the hospital AMA and went to Dr Coffey and her CRP was abnormal. does not know why her face is numb. She has pressure behind R eye and her brain MRI was normal. They are not sure why she is having all these symptoms. She has always had spinal issues. Her babinski test has always been positive on the L side. She is not DM. She has tremors L UE and B side gets numb but the R side will get weaker but she does not drop things on the R but does drop things on the L. She has chronic neck pain and it varies. She had HD and bulging discs and DDD and those were diagnosed 10 years ago and that is why the Dr wants the MRI after PT. She has decreased c-spine AROM. Driving is not good. She does have vertigo and balance issues. Pt has BOSE that start on base of the skull....ice back and tries to relax her head or laying on the L side with w pillow under her head and hot showers. - Pain c-spine Pain Intensity (Out of 10): 2 R shoulder pain Pain Intensity (Out of 10): 0 - Objective C-spine AROM: Ext 50%, Flexion 75%, Rot R 75% and L Rot 75%, R SB 50%, L SB 50%. Security Developer strength: R handed. R hand 71# and L hand 45#. UE AROM: R shoulder flexion 100 degrees and L shoulder flexion 150 degrees, R shoulder ABD 82 degrees, and L shoulder 180 degrees, and ABD L IR T12 and R IR L5, R ER 34, and L ER 55 degrees. UE MMT: R shoulder flex and ABD 3-/5 due to decrease AROM and L shoulder flex and abd 4/5, R shoulder ER 4-/5 and L 4/5, R shoulder IR 4-/5 and L 4/5. Posture: Tries to sit with upright posture but does have to correct self often.. - Balance/Special Test Scores Oswestry Neck Score: 26 - Goals Goal 1:: I HEP Goal 2:: Be able to raise R arm to 120 degrees elevation (flex and abd) to be able to use arm with functional activities with 50% less pain Goal Time Frame: 4-6 Weeks Goal 3:: Increase C-spine AROM by 25% each plane with no end range pain. (c-spine AROM at the time of the eval: C-spine AROM: Ext 50%, Flexion 75%, Rot R 75% and L Rot 75%, R SB 50%, L SB 50%). Goal Time Frame: 4-6 Weeks Goal 4:: Sit with upright posture with treatment sessions Goal Time Frame: 4-6 Weeks - Rehabilitation Potential Rehabilitation Potential: Good - Anticipated Interventions Patient/Client Instruction: Educate patient on: Condition, Plan of Care For the Purpose of:: To decrease pain, To increase ROM, To improve nutrient delivery to tissue, To improve muscle performance and motor function, To improve ability to perform ADL's, To increase tolerance to activity/condition/position, To improve performance and independence with ADL's, To decrease level of supervision to perform tasks, To improve ability of physical actions for home/community/work/leisure, To improve health of tissue, To decrease soft tissue restriction, To increase flexibility/ROM Therapeutic Exercise to Include: Strength training, Postural training, Flexibilty training, Neuromotor development, Passive ROM, Active ROM, Scapular Strength/Stabilization For the Purpose of:: To decrease pain, To increase ROM, To improve nutrient delivery to tissue, To improve muscle performance and motor function, To improve ability to perform ADL's, To increase tolerance to activity/condition/position, To improve performance and independence with ADL's, To improve ability of physical actions for home/community/work/leisure, To improve health of tissue, To decrease soft tissue restriction, To increase flexibility/ROM Manual Therapy Techniques to Include: Passive ROM, Soft tissue mobilization For the Purpose of:: To increase ROM, To improve nutrient delivery to tissue, To improve health of tissue, To decrease soft tissue restriction, To increase flexibility/ROM Thermo therapy (hot pack): Yes Ultrasound (thermal/non thermal): Yes For the Purpose of:: To decrease pain, To increase ROM, To improve nutrient delivery to tissue, To improve muscle performance and motor function, To improve health of tissue, To decrease soft tissue restriction, To increase flexibility/ROM Thank you for the opportunity to evaluate your patient. For Medicare and Medicare HMO plans, please review the plan of care and approve it. It will need to be FAXED BACK to us at [phone] for Medicare purposes. For Medicare only, by signing this I certify the plan of care. Please let me know if there are questions or concerns regarding this plan of care. Physician Signature: Date:
--- NOTE | 2022-01-25 12:19 | HP.PTDCSUM_ITS ---
It has been my pleasure to treat GLEN DESAI referred by Dr. Bright Coffey MD, with the diagnosis of Cervicalgia, R shoulder pain for a total of 6 visit(s). Discharge Date: 01/25/22 Please see the following information for a summary of their discharge status. Subjective: Pt reports that she hurts and no much better. They helped her to find the muscle knots but it did not feel good. Pt feels that PT gave her some temporary relief but PT soreness took 3-4 days to recoup from. c-spine Pain Intensity (Out of 10): 7 R shoulder pain Pain Intensity (Out of 10): 8 % Improvement: 10 Objective/Function: C-spine AROM: Ext 75%, Flexion 90%, Rot R 80% and L Rot 80%, R SB 75%, L SB 75%). R shoulder AROM: flex 113 degrees (increase pain). ABD 87 degrees (increase pain) Goal 1:: I HEP Goal Progress: Goal Met Goal 2:: Be able to raise R arm to 120 degrees elevation (flex and abd) to be able to use arm with functional activities with 50% less pain Goal Progress: Progressing Goal 3:: Increase C-spine AROM by 25% each plane with no end range pain. (c- spine AROM at the time of the eval: C-spine AROM: Ext 50%, Flexion 75%, Rot R 75% and L Rot 75%, R SB 50%, L SB 50%). Goal Progress: Progressing Goal 4:: Sit with upright posture with treatment sessions Goal Progress: Progressing Plan: DC PT to back to Dr for next step in the process due to lack of progress. Discharge Comments: DC PT back to physician referral. If there are questions or concerns regarding this patient's physical therapy, please feel free to call me at [phone]. Thank you for the referral of this patient. Sincerely, Nica More, MPT Balance/Gait/Functional tests - Balance/Special Test Scores Oswestry Neck Score: 26
== END 2022-01-25 19:00 | disposition home or self-care (01) ==
LOC: PT 12:00
PROVIDERS: PCP Internal Medicine; Referring Provider Psychiatry & Neurology Neurology; Visit Provider Psychiatry & Neurology Neurology
DX: M54.2 Cervicalgia (principal); M25.511 Pain in right shoulder
CPT/HCPCS: 97035; 97140; 97161; 97530

== ENCOUNTER → 2022-05-27 | Outpatient (CLI) | payer MEDICAID, SELFPAY | END | disposition home or self-care (01) | LOC: PSN 07:48 | PROVIDERS: PCP Internal Medicine; Visit Provider Psychiatry & Neurology Sleep Medicine | DX: F95.9 Tic disorder, unspecified (principal) | CPT/HCPCS: 95819 ==

== ENCOUNTER 2022-11-01 10:30 | Outpatient (RCR) | payer MEDICAID, SELFPAY ==
--- NOTE | 2022-09-30 13:01 | HP.PTEVAL_ITS ---
Patient's Visit Information GLEN DESAI is a 37 year old F referred to Physical Therapy by HOLLI Longo with a diagnosis of L knee pain. Date of Evaluation: 09/30/22 Physical Therapist: Tamir Quesada, PT, ATC - Visit Plan Frequency: 2-3x /Week Duration: 4-6 Weeks Plan: R LE strengthening, core stab ex's, balance and proprio, bike, and HEP - Subjective Pt reports she has had L pain for approximately 3 months now. Pt reports she had PT for 6 weeks down in [place], but experienced zero benefit from it. Pt notes her pain had an insidious onset in nature. Pt reports her L knee did pop one day, and has been sore since. Pt reports occasional tingling in her L foot. No other tingling or numbness. Pt reports she has had x-rays, but notes there were no significant findings. Pt reports she fell on ice and landed on her L knee in 2018, but that pain went away after approximately one year. Pt reports no stairs at home, but notes she is not able to negotiate them at this time. Pt reports L knee will pop and give out on her. Pt denies L knee locking up on her. Pt reports sleep difficulty at this time secondary to pain. Pt reports she likes to work outside, and is limited with that type of activity secondary to pain. Pt notes she is not able to run at this time. 2/10 pain in L knee while at rest, 10/10 pain while at worst - Pain L knee Pain Intensity (Out of 10): 2 Pain Intensity Range: 10 - Objective Neuro: B LE sensation is WNL to light touch other than L L3 is hyposensitive. B patellar tendon reflex= 1/3. Palpation: Pt is very tender along the medial and lateral joint line. Pt is also sore along patellar borders. Pt has minor swelling noted at this time. Crepitus present with ROM. ROM: R knee 0-135 degre es; L knee 0-130 degrees. MMT: R knee flex= 35, ext= 51 #F; L knee flex= 35, ext= 48 #F. Special tests: Pos McConnells sign - Balance/Special Test Scores Lower Extremity Functional Score: 24 - Goals Goal 1:: Decrease L knee pain x 50% to aid with sleep Goal Time Frame: 4-6 Weeks Goal 2:: Increase L knee flexion ROM x 5-10 degrees to aid with squatting type of activity Goal Time Frame: 4-6 Weeks Goal 3:: Pt will be able to negotiate a flight of stairs reciprocally without UE's to aid with community mobility Goal Time Frame: 4-6 Weeks Goal 4:: I with HEP Goal Time Frame: 4-6 Weeks - Rehabilitation Potential Physical Therapy Diagnosis: Pt has L knee pain, limited ROM, and difficulty with sleep secondary to L knee patellofemoral syndrome Rehabilitation Potential: Good - Anticipated Interventions Patient/Client Instruction: Educate patient on: Condition, Plan of Care For the Purpose of:: To improve self management Therapeutic Exercise to Include: Strength training, Endurance training, Balance training, Flexibilty training, Dynamic Lumbar Stabilization For the Purpose of:: To decrease pain, To increase ROM, To improve muscle performance and motor function Cryotherapy (ice pack, ice massage): Yes For the Purpose of:: To decrease pain Thank you for the opportunity to evaluate your patient. For Medicare and Medicare HMO plans, please review the plan of care and approve it. It will need to be FAXED BACK to us at [phone] for Medicare purposes. For Medicare only, by signing this I certify the plan of care. Please let me know if there are questions or concerns regarding this plan of care. Physician Signature: Date:_
--- NOTE | 2022-11-01 11:16 | HP.PTDCSUM ---
It has been my pleasure to treat GLEN DESAI referred by HOLLI Longo, with the diagnosis of L knee pain for a total of 6 visit(s). Discharge Date: Please see the following information for a summary of their discharge status. Subjective: I am not getting any better L knee Pain Intensity (Out of 10): 3 % Improvement: 95 Objective/Function: L knee pain ranges from 3-8/10. L knee ROM: 0-135 degrees. L knee MMT: flex= 32, ext= 52. ROM and strength are excellent, pain is not changed Goal 1:: Decrease L knee pain x 50% to aid with sleep Goal Progress: Not Progressing Goal 2:: Increase L knee flexion ROM x 5-10 degrees to aid with squatting type of activity Goal Progress: Goal Met Goal 3:: Pt will be able to negotiate a flight of stairs reciprocally without UE's to aid with community mobility Goal Progress: Goal Met Goal 4:: I with HEP Goal Progress: Goal Met Plan: Discontinue, RTD If there are questions or concerns regarding this patient's physical therapy, please feel free to call me at [phone]. Thank you for the referral of this patient. Sincerely, Tamir Quesada, PT, ATC Balance/Gait/Functional tests - Balance/Special Test Scores Lower Extremity Functional Score: 29
== END 2022-11-01 14:18 | disposition home or self-care (01) ==
LOC: PT 10:30
PROVIDERS: PCP Internal Medicine
DX: M22.2X2 Patellofemoral disorders, left knee (principal); M70.52 Other bursitis of knee, left knee; M25.562 Pain in left knee; M76.32 Iliotibial band syndrome, left leg
CPT/HCPCS: 97110; 97161; 97164

== ENCOUNTER → 2023-02-05 | Outpatient (CLI) | payer MEDICAID, SELFPAY ==
--- NOTE | 2023-02-05 09:34 | MRI_ITS ---
STUDY: MRI LEFT KNEE REASON FOR EXAM: Female, 37 years old. Knee pain, swelling, instability TECHNIQUE: Standardized fat and water weighted pulse sequences were obtained in all 3 orthogonal planes. COMPARISON: None. FINDINGS: Normal medial meniscus. Normal hyaline cartilage of the medial femorotibial compartment. Normal medial femoral condyle and tibial plateau. Normal medial collateral ligamentous complex (MCL). Normal distal semimembranosus, gracilis and semitendinosus tendons. Normal lateral meniscus. Normal hyaline cartilage of the lateral femorotibial compartment. Normal lateral femoral condyle and tibial plateau. Normal proximal tibiofibular articulation. Normal lateral collateral (fibular) ligament. Normal popliteus tendon. Normal biceps femoris tendon. Normal anterior cruciate ligament (ACL). Normal posterior cruciate ligament (PCL). Shallow trochlear groove with lateral subluxation of patella and edema superolateral Hoffa''s fat pad consistent with patellofemoral maltracking. Normal hyaline cartilage of the patellofemoral compartment. Normal medial and lateral patellar retinaculum. Normal quadriceps tendon. Normal patellar tendon. Normal Hoffa''s fat pad. There is a small volume joint effusion. The soft tissues are unremarkable. The otherwise visualized osseous structures are unremarkable. MRI/Lower Ext Joint Only (Routine) IMPRESSION: Patellofemoral maltracking with a small effusion. Electronically Signed: Conor Kidd MD at 22:55 EDT ,
== END | disposition home or self-care (01) ==
LOC: MRI 09:33
PROVIDERS: PCP Internal Medicine
DX: M25.562 Pain in left knee (principal)
CPT/HCPCS: 73721

== ENCOUNTER 2023-02-23 13:50 | Outpatient (RCR) | payer MEDICAID, SELFPAY | END 2023-03-08 23:59 | LOC: NS 13:50 | PROVIDERS: PCP Internal Medicine; Referring Provider Nurse Practitioner Family; Visit Provider Nurse Practitioner Family | DX: Z71.3 Dietary counseling and surveillance (principal); E66.01 Morbid (severe) obesity due to excess calories; Z68.39 Body mass index [BMI] 39.0-39.9, adult | CPT/HCPCS: 97802 ==

== ENCOUNTER 2023-03-28 08:00 | Outpatient (RCR) | payer MEDICAID, SELFPAY | END 2023-04-07 23:59 | LOC: NS 08:00 | PROVIDERS: PCP Internal Medicine; Referring Provider Nurse Practitioner Family; Visit Provider Nurse Practitioner Family | DX: Z71.3 Dietary counseling and surveillance (principal); E66.01 Morbid (severe) obesity due to excess calories | CPT/HCPCS: 97803 ==

== ENCOUNTER 2023-04-26 07:30 | Outpatient (RCR) | payer MEDICAID, SELFPAY | END 2023-05-08 23:59 | LOC: NS 07:30 | PROVIDERS: PCP Internal Medicine; Referring Provider Nurse Practitioner Family; Visit Provider Nurse Practitioner Family | DX: Z71.3 Dietary counseling and surveillance (principal); E66.01 Morbid (severe) obesity due to excess calories; Z68.38 Body mass index [BMI] 38.0-38.9, adult | CPT/HCPCS: 97803 ==

== ENCOUNTER 2023-05-05 07:30 | Outpatient (RCR) | payer MEDICAID, SELFPAY ==
--- NOTE | 2023-02-24 09:30 | HP.PTEVAL ---
Patient's Visit Information Visit Information Visit Information: GLEN DESAI is a 37 year old F referred to Physical Therapy by HOLLI Conn with a diagnosis of B patellofemoral syndrome. Date of Evaluation: 02/24/23 Physical Therapist: Hammad Asif DPT Visit Plan Frequency: 2x /Week Duration: 6 Weeks Plan: 1). Start with quad, glute, HS core strengthening. 2.) IT band and HS stretching, 3) functional strengthening of quads, HS and glutes. Subjective Subjective: Pt. is here today for her initial evaluation with diagnosis of patellofemoral maltracking of B knees. Pt. reports having pain in B knee both medially and laterally. Pt. reports no N/T in either LE. Pt. did have an MRI of L knee showing PFS with small effusion. No MRI on R side. Pt. reports mornings are better and pain increases throughout the day. No marked mech of injury noted. Pt. has greatest pain with stair negotiation. No giving out noted. pt. is hopeful to reduce her B knee pain. Pain L knee: Pain Intensity (Out of 10): 1 Pain Intensity Range: 1 and 5 Comment: stairs is the worst, (go up in bad) R knee: Pain Intensity (Out of 10): 1 Pain Intensity Range: 0 and 5 Comment: stairs is the worst, (go up in bad) Objective Objective: POSTURE: Pt. has slight FH posture. PALPATION: Pt. R medial joint line soreness, L lateral knee soreness. NEURO: Normal sensation in BLEs, Pt. has normal DTR in BLEs. ROM: R knee: 0-0-138deg, L knee: 0-0-133deg. MMT: LLE: knee: ext 48.3#, flex: 23.5#; L hip: 26.5#, abd 24.7# RLE: knee: ext: 44.4#, 22.1#; R hip; 19.9#, abd 29.2# GAIT: Pt. has fairly normal gait pattern. Slight femoral IR with slight genu valgum. SQUAT: Pt. has increased pronation bilaterally, increased genu valgum (but no severe). STAIRS: Pt. has increased pain with both ascending and descending. Special Tests R Knee Tasha - Meniscus: Negative R Knee Anterior Drawer - ACL: Negative R Knee Posterior Drawer - PCL: Negative R Knee Valgus - MCL: Negative R Knee Varus - LCL: Negative R Knee Patellar Apprehension - PFS: Negative R Knee Patellar Grind - PFS: Positive L Knee Tasha - Meniscus: Negative L Knee Anterior Drawer - ACL: Negative L Knee Posterior Drawer - PCL: Negative L Knee Valgus - MCL: Negative L Knee Varus - LCL: Negative L Knee Patellar Apprehension - PFS: Negative Balance/Special Test Scores Lower Extremity Functional Score: 45 Goals Goal 1:: Pt. to be I with HEP. Goal Time Frame: 4-6 Weeks Goal 2:: LTG: Pt. to have increased B quad, HS and glute medius strength by 10# throughout to increase stability with all functional mobility. Goal Time Frame: 4-6 Weeks Goal 3:: LTG: Pt. to have negative obers test and normal HS length in 90/90 positioning allowing for proper knee positioning during all recreational activities. Goal Time Frame: 4-6 Weeks Goal 4:: LTG: Pt. to be able to walking 500 meters in 6 MWT without increase in symptoms indicating increased tolerance to functional mobility. Goal Time Frame: 4-6 Weeks Goal 5:: LTG: Pt. to negotiate steps with 1 HR with reciprocal pattern without increase in B knee pain. Goal Time Frame: 4-6 Weeks Rehabilitation Potential Physical Therapy Diagnosis: Pt. has signs and symptoms consistent with B patellofemoral syndrome. She has marked quad weakness, tight HS, tight IT bands a well. Pt. would benefit from PT to address the above limitations progressing back to all recreational and home activities without increase in pain. Rehabilitation Potential: Good Anticipated Interventions Patient/Client Instruction: Educate patient on: Condition, Plan of Care, Risk Factors and Benefits of Fitness Program For the Purpose of:: To facilitate caregiver knowledge, To improve self management, To prevent re-injury, To improve ability to perform tasks related to life management and To improve tolerance to ADL's Therapeutic Exercise to Include: Strength training, Power training, Endurance training, Balance training, Postural training, Flexibilty training and Gait and locomotor training For the Purpose of:: To decrease pain, To improve nutrient delivery to tissue, To increase oxygenation perfusion, To improve muscle performance and motor function and To improve ability to perform ADL's Text: Thank you for the opportunity to evaluate your patient. For Medicare and Medicare HMO plans, please review the plan of care and approve it. It will need to be FAXED BACK to us at [phone] for Medicare purposes. For Medicare only, by signing this I certify the plan of care. Please let me know if there are questions or concerns regarding this plan of care. Physician Signature: Date:
--- NOTE | 2023-05-05 11:58 | HP.PTDCSUM ---
Discharge Summary D/C summary: It has been my pleasure to treat GLEN DESAI referred by HOLLI Conn, with the diagnosis of B patellofemoral syndrome for a total of 17 visit(s). Discharge Date: 05/05/23 Please see the following information for a summary of their discharge status. Subjective Subjective: Pt. reports overall doing much better. Pt. is I with her HEP in gym. Pt. reports overall being 85% better overall. Pain L knee: Pain Intensity (Out of 10): 0 R knee: Pain Intensity (Out of 10): 0 Overall Improvement % Improvement: 85 Objective Objective/Function: Pt. is now I with HEP for BLE strengthening in the gym. Pt. is ready to be DC from PT at this point in time. She has symmetrical strength. No issues with walking. Pt. reports being much stronger overall. She has 5/5 strength throughout BLEs. I gave her an exercise log and we reviewed all of her exercises. Pt. is I with all exercises currently. Goals Goal 1:: Pt. to be I with HEP. Goal Progress: Goal Met Goal 2:: LTG: Pt. to have increased B quad, HS and glute medius strength by 10# throughout to increase stability with all functional mobility. Goal Progress: Goal Met Goal 3:: LTG: Pt. to have negative obers test and normal HS length in 90/90 positioning allowing for proper knee positioning during all recreational activities. Goal Progress: Goal Met Goal 4:: LTG: Pt. to be able to walking 500 meters in 6 MWT without increase in symptoms indicating increased tolerance to functional mobility. Goal Progress: Goal Met Goal 5:: LTG: Pt. to negotiate steps with 1 HR with reciprocal pattern without increase in B knee pain. Goal Progress: Goal Met Plan Plan: Pt. to be DC from PT. D/C Information Discharge Comments: Pt. will be DC from PT at this point in time. Pt has progressed with her strengthening of BLEs. Pt. is now I with her program and will be DC to gym exercises at this point in time. d/c sentence: If there are questions or concerns regarding this patient's physical therapy, please feel free to call me at [phone]. Thank you for the referral of this patient. Sincerely, Hammad Mcintosh Sipos, DPT Balance/Gait/Functional tests Balance/Special Test Scores Lower Extremity Functional Score: 59 6 Minute Walk Test: 383 meters. Improvement % Improvement: 85
== END 2023-05-05 17:13 | disposition home or self-care (01) ==
LOC: PT 07:30
PROVIDERS: PCP Internal Medicine; Referring Provider Physician Assistant; Visit Provider Physician Assistant
DX: M22.2X1 Patellofemoral disorders, right knee (principal); M22.2X2 Patellofemoral disorders, left knee
CPT/HCPCS: 97110; 97161; 97164

== ENCOUNTER 2023-05-12 07:25 | Outpatient (RCR) | payer MEDICAID, SELFPAY | END 2023-06-08 23:59 | LOC: NS 07:25 | PROVIDERS: PCP Internal Medicine; Referring Provider Nurse Practitioner Family; Visit Provider Nurse Practitioner Family | DX: Z71.3 Dietary counseling and surveillance (principal); E66.01 Morbid (severe) obesity due to excess calories; Z68.38 Body mass index [BMI] 38.0-38.9, adult | CPT/HCPCS: 97803 ==

== ENCOUNTER 2023-06-23 07:18 | Outpatient (RCR) | payer MEDICAID, SELFPAY | END 2023-07-07 23:59 | LOC: NS 07:18 | PROVIDERS: PCP Internal Medicine; Referring Provider Nurse Practitioner Family; Visit Provider Nurse Practitioner Family | DX: Z71.3 Dietary counseling and surveillance (principal); E66.01 Morbid (severe) obesity due to excess calories | CPT/HCPCS: 97803 ==

== ENCOUNTER → 2023-07-01 | Outpatient (CLI) | payer MEDICAID, SELFPAY ==
--- OUTSIDE RECORDS SUMMARY | 2023-07-01 06:24 | XMS RPT_ITS | CCD ---
Author Name Unknown Address [address] [place] [address] Organization [facility] Care Team Providers Care Street Photographer Name Role Phone Brian Argueta Unavailable Karlo NIXON, Koki Primary Care Provider Moodispaw, Andrez F Unavailable Roof, Adore Unavailable Koki Worthington MD Primary Care Provider Moodispaw, Andrez F Unavailable Roof, Adore Unavailable Moodispaw, Andrez F Unavailable Roof, Adore Unavailable Koki Worthington MD Primary Care Provider Moodispamike, Andrez F Unavailable Roof, Adore Unavailable Koki Worthington MD Primary Care Provider UNGERER, REBECCA MANAGER RESEARCH Consulting Unavailable LUST, AMBER PA%C Admitting Unavailable LUST, AMBER PA%C Primary Care Unavailable LUST, AMBER PA%C Attending Unavailable PROVIDER, UNKNOWN Consulting Unavailable O'CHILDERS, ABBY MANAGER RESEARCH Primary Care Unavailable O'CHILDERS, ABBY MANAGER RESEARCH Attending Unavailable O'CHILDERS, ABBY MANAGER RESEARCH Admitting Unavailable UNGERER, REBECCA MANAGER RESEARCH Consulting Unavailable PROVIDER, UNKNOWN Consulting Unavailable O'CHILDERS, ABBY MANAGER RESEARCH Primary Care Unavailable O'CHILDERS, ABBY MANAGER RESEARCH Attending Unavailable O'CHILDERS, ABBY MANAGER RESEARCH Admitting Unavailable UNGERER, REBECCA MANAGER RESEARCH Consulting Unavailable PROVIDER, UNKNOWN Consulting Unavailable UNGERER, REBECCA MANAGER RESEARCH Consulting Unavailable O'CHILDERS, ABBY MANAGER RESEARCH Admitting Unavailable O'CHILDERS, ABBY MANAGER RESEARCH Primary Care Unavailable O'CHILDERS, ABBY MANAGER RESEARCH Attending Unavailable PROVIDER, UNKNOWN Consulting Unavailable UNGERER, REBECCA MANAGER RESEARCH Consulting Unavailable UNGERERREBECCA MANAGER RESEARCH Attending Unavailable UNGERERREBECCA MANAGER RESEARCH Admitting Unavailable UNGERER, REBECCA MANAGER RESEARCH Primary Care Unavailable PROVIDER, UNKNOWN Consulting Unavailable ADORE GAO MD Admitting Unavailable ADORE GAO MD Primary Care Unavailable ADORE GAO MD Attending Unavailable Andrez Ballesteros Unavailable RoofAdore Unavailable Andrez Ballesteros MD Unavailable Roof OIL WELL DRILLING MANAGER.VELVET, Adore Joiner Unavailable [phone] GANTA, KOKI Primary Care Unavailable EILEEN NAIK Attending Unavailable GANTA, KOKI Primary Care Unavailable RAMA ANGLIN Attending Unavail able BRIANA LEGGETT Attending Unavailable GANTA, KOKI Primary Care Unavailable NORM HERNANDEZ JR Attending Unavailable NORM HERNANDEZ JR Referring Unavailable GANTA, KOKI Primary Care Unavailable BRIANA LEGGETT Attending Unavailable GANTA, KOKI Primary Care Unavailable GANTA, KOKI Primary Care Unavailable CHELA SHERIDAN Referring Unavailab le GANTA, KOKI Primary Care Unavailable ADELE COSTA Attending Unavailable RE HOPKINS Attending Unavailable GANTA, KOKI Primary Care Unavailable GANTA, KOKI Primary Care Unavailable GANTA, KOKI Primary Care Unavailable FARZAD LATHAM Attending Unavailable Allergies Allergy Classification Reported Allergen(s) Allergy Type Date of Onset Reaction(s) Facility (20 sources) Adenosine; Translations: [ADENOSINE] Drug Allergy 05-30-19 19 Other: See Comments, Intolerance [facility] Work Phone: (20 sources) Amoxicillin / Clavulanate; Translations: [AMOXICILLIN-POT CLAVULANATE] Drug Allergy 09-22-[address] [facility] Work Phone: (20 sources) Clavulanate; Translations: [POTASSIUM CLAVULANATE] Drug Allergy 05-30-19 [address] [facility] Work Phone: (20 sources) Feather; Translations: [FEATHERS] Drug Allergy 05-30-19 19 Other: See Comments, Intolerance [facility] Work Phone: (4 sources) Glucocorticoid; Translations: [CORTICOSTEROIDS (GLUCOCORTICOIDS)] Drug Intolerance 05-30-19 19 Other: See Comments [facility] Work Phone: (20 sources) predniSONE; Translations: [PREDNISONE] Drug Allergy 01-02-[address] [facility] (20 sources) silver sulfADIAZINE; Translations: [SILVER SULFADIAZINE] Drug Allergy 01-17-[address] [facility] (20 sources) Sulfonamides (Antibiotic); Translations: [SULFA (SULFONAMIDE ANTIBIOTICS)] Drug Intolerance 02-20-20 [address] [facility] (20 sources) Bee Venom Protein (Honey Bee); Translations: [BEE VENOM PROTEIN (HONEY BEE)] Drug Allergy 05-30-19 [address] [facility] Work Phone: (20 sources) ENVIRONMENTAL [Other] Propensity to adverse reactions 01-07-20 05 Other: See Comments [facility] Work Phone: (20 sources) stress test IV liquid [Other] Propensity to adverse reactions 09-15-[address] [facility] Work Phone: (20 sources) Glucocorticoid preparation Drug Intolerance 05-30-19 19 Other: See Comments, Intolerance [facility] Work Phone: (20 sources) Amoxicillin; Translations: [AMOXICILLIN TRIHYDRATE] Drug Allergy 09-12-[address] [facility] (20 sources) Seasonal allergy; Translations: [SEASONAL ALLERGIES] Allergy to substance 09-12-[address] [facility] (20 sources) Other Straughn-3s; Translations: [OTHER OMEGA-3S] Drug Allergy 09-12-[address] [facility] (5 sources) Iodine; Translations: [IODINE] Drug Allergy 05-03-20 [address] [facility] Work Phone: (1 source) OTHER; Translations: [OTHER] Propensity to adverse reactions (disorder) 09-15-19 [facility] Repository Medications Current Medications Medication Drug Class(es) Dates Sig (Normalized) Sig (Original) benoxinate hydrochloride 4 mg/ml / fluorescein sodium 2.5 mg/ml ophthalmic solution (1 source) Diagnostic Dye Start: 12-02-2021 End: 12-02-2021 fluorescein-benox inate 0.25-0.4 % 1 Drop (FLURESS) clindamycin 150 mg oral capsule (3 sources) Lincosamide Antibacterial Start: 09-19-2021 End: 09-26-2021 take 2 capsules by mouth three times daily clindamycin (CLEOCIN) 150 mg capsule Take 2 capsules by mouth three times daily for 7 days. 42 capsule 0 09/19/2021 09/26/2021 Active Completed/Discontinued Medications Medication Drug Class(es) Dates Sig (Normalized) Sig (Original) acetaminophen 325 mg / HYDROcodone bitartrate 7.5 mg oral tablet (20 sources) Opioid Agonist End: 08-04-2022 take 1 tablet by mouth every eight hours as needed HYDROcodone-Acetami nophen (NORCO) 7.5-325 mg per tablet Take 1 tablet by mouth every 8 hours as needed for pain. 0 08/04/2022 Discontinued (Discontinued by Patient) Problems Active Problems Problem Classification Problem Date Documented Date Episodic/Chronic Anxiety disorders (20 sources) Posttraumatic stress disorder; Translations: [Post-traumatic stress disorder, unspecified] Onset: 10-10-2015 07-06-2020 Chronic Asthma (20 sources) Mild intermittent asthma; Translations: [Mild intermittent asthma, uncomplicated] Onset: 06-13-2018 06-13-2018 Chronic Blindness and vision defects (20 sources) Visual alteration; Translations: [Unspecified visual loss] Onset: 03-10-2021 03-10-2021 Chronic Blindness and vision defects (1 source) Visual disturbance; Translations: [Unspecified visual disturbance] Episodic Cardiac dysrhythmias (20 sources) Ventricular premature beats; Translations: [Ventricular premature depolarization] Onset: 09-03-2011 05-04-2021 Chronic Disorders of lipid metabolism (20 sources) Mixed hyperlipidemia; Translations: [Mixed hyperlipidemia] Onset: 10-06-2010 02-28-2017 Chronic Disorders of teeth and jaw (1 source) Toothache; Translations: [Other specified disorders of teeth and supporting structures] Episodic Disorders usually diagnosed in infancy, childhood, or adolescence (2 sources) Tic disorder; Translations: [Tic disorder, unspecified] Chronic Esophageal disorders (20 sources) Gastroesophageal reflux disease; Translations: [Gastro-esophageal reflux disease without esophagitis] Onset: 09-18-2014 09-18-2014 Chronic Essential hypertension (20 sources) Essential hypertension; Translations: [Essential (primary) hypertension] Onset: 07-06-2020 07-06-2020 Chronic Hemorrhoids (1 source) Hemorrhoids; Translations: [Unspecified hemorrhoids] 06-16-2023 Episodic Inflammatory diseases of female pelvic organs (1 source) Acute vaginitis; Translations: [Acute vaginitis] 06-16-2023 Episodic Nonspecific chest pain (1 source) Chest pain; Translations: [Chest pain, unspecified] Episodic Other connective tissue disease (2 sources) Tendonitis of right shoulder; Translations: [Other enthesopathies, not elsewhere classified] Episodic Other connective tissue disease (2 sources) Impingement syndrome of right shoulder region; Translations: [Impingement syndrome of right shoulder] Episodic Other connective tissue disease (2 sources) Mass of soft tissue; Translations: [Other specified soft tissue disorders] Episodic Other connective tissue disease (2 sources) Swelling of upper limb; Translations: [Other specified soft tissue disorders] Episodic Other female genital disorders (1 source) Other specified noninflammatory disorders of vagina; Translations: [Other specified noninflammatory disorders of vagina] Onset: 12-23-2022 Episodic Other hereditary and degenerative nervous system conditions (20 sources) Blepharospasm of right eyelid; Translations: [Blepharospasm] Onset: 03-10-2021 03-10-2021 Chronic Other lower respiratory disease (2 sources) Cough; Translations: [Cough] Episodic Other nervous system disorders (20 sources) Chronic pain; Translations: [Other chronic pain] Onset: 06-22-2013 06-22-2013 Chronic Other nervous system disorders (20 sources) Complex regional pain syndrome type I of right upper limb; Translations: [Complex regional pain syndrome I of right upper limb] Onset: 03-10-2018 03-10-2018 Chronic Other nervous system disorders (3 sources) Other chronic pain; Translations: [Other chronic pain] Onset: 07-09-2022 Chronic Other nervous system disorders (1 source) Disorder of the autonomic nervous system, unspecified; Translations: [Disorder of the autonomic nervous system, unspecified] Onset: 07-09-2022 Chronic Other nervous system disorders (1 source) Eyelid finding; Translations: [Fasciculation] Episodic Other nervous system disorders (3 sources) Intermittent tremor; Translations: [Tremor, unspecified] Episodic Other nervous system disorders (2 sources) Trigeminal nerve disorder; Translations: [Disorder of trigeminal nerve, unspecified] Episodic Other nervous system disorders (2 sources) Muscle twitch; Translations: [Fasciculation] Episodic Other non-traumatic joint disorders (2 sources) Joint finding; Translations: [Joint disorder, unspecified] Episodic Other non-traumatic joint disorders (1 source) Chronic pain of right upper limb; Translations: [Pain in right shoulder] Episodic Other non-traumatic joint disorders (1 source) Pain of right shoulder joint; Translations: [Pain in right shoulder] Episodic Other non-traumatic joint disorders (1 source) Pain in elbow; Translations: [Pain in left elbow] Episodic Other non-traumatic joint disorders (2 sources) Shoulder pain; Translations: [Pain in right shoulder] Episodic Other nutritional; endocrine; and metabolic disorders (20 sources) Obesity; Translations: [Obesity, unspecified] Onset: 09-03-2011 09-03-2011 Chronic Other nutritional; endocrine; and metabolic disorders (20 sources) Obese class II; Translations: [Obesity, unspecified] Onset: 07-09-2020 07-09-2020 Chronic Other nutritional; endocrine; and metabolic disorders (1 source) Body mass index (BMI) 38.0-38.9, adult; Translations: [Body mass index [BMI] 38.0-38.9, adult] Onset: 07-09-2022 Chronic Other upper respiratory disease (20 sources) Non-allergic rhinitis; Translations: [Chronic rhinitis] Onset: 12-13-2018 12-13-2018 Chronic Other upper respiratory infections (1 source) Bacterial sinusitis; Translations: [Chronic sinusitis, unspecified] Chronic Spondylosis; intervertebral disc disorders; other back problems (20 sources) Displacement of cervical intervertebral disc; Translations: [Other cervical disc displacement, unspecified cervical region] Onset: 06-22-2013 06-22-2013 Chronic Sprains and strains (2 sources) Traumatic rupture of rotator cuff; Translations: [Strain of muscle(s) and tendon(s) of the rotator cuff of right shoulder, initial encounter] Episodic Substance-related disorders (20 sources) Tobacco dependence in remission; Translations: [Nicotine dependence, unspecified, in remission] Onset: 01-22-2014 06-24-2021 Chronic Thyroid disorders (20 sources) Thyroid nodule; Translations: [Nontoxic single thyroid nodule] Onset: 03-16-2010 05-04-2021 Chronic Viral infection (1 source) Molluscum contagiosum infection; Translations: [Molluscum contagiosum] Episodic Past or Other Problems Problem Classification Problem Date Documented Da te Episodic/Chronic Cardiac dysrhythmias (20 sources) Palpitations; Translations: [Palpitations] Onset: 09-18-2014 07-06-2020 Episodic Conditions associated with dizziness or vertigo (20 sources) Dizziness; Translations: [Dizziness and giddiness] Onset: 03-10-2021 03-10-2021 Episodic E Codes: Fall (1 source) Fall on same level from slipping, tripping and stumbling with subsequent striking against furniture, initial encounter; Translations: [Fall on same level from slipping, tripping and stumbling with subsequent striking against furniture, initial encounter] Onset: 03-23-2022 Episodic Influenza (20 sources) Influenza due to Influenza A virus; Translations: [Influenza due to other identified influenza virus with other respiratory manifestations] Onset: 03-10-2021 03-10-2021 Episodic Mycoses (20 sources) Candidiasis of mouth and esophagus; Translations: [Candidal esophagitis] Onset: 03-10-2021 03-10-2021 Episodic Other connective tissue disease (3 sources) Iliotibial band syndrome, left leg; Translations: [Iliotibial band syndrome, left leg] Onset: 08-02-2022 Episodic Other connective tissue disease (1 source) Other bursitis of knee, left knee; Translations: [Other bursitis of knee, left knee] Onset: 08-02-2022 Episodic Other connective tissue disease (1 source) Other specified soft tissue disorders; Translations: [Arm swelling] Onset: 07-27-2022 Episodic Other gastrointestinal disorders (1 source) Other intra-abdominal and pelvic swelling, mass and lump; Translations: [Other intra-abdominal and pelvic swelling, mass and lump] Onset: 07-16-2022 Episodic Other injuries and conditions due to external causes (1 source) Unspecified injury of muscle(s) and tendon(s) of the rotator cuff of right shoulder, initial encounter; Translations: [Unspecified injury of muscle(s) and tendon(s) of the rotator cuff of right shoulder, initial encounter] Onset: 03-23-2022 Episodic Other nervous system disorders (20 sources) Facial paresthesia; Translations: [Paresthesia of skin] Onset: 03-10-2021 03-10-2021 Episodic Other non-traumatic joint disorders (20 sources) Shoulder joint pain; Translations: [Pain in unspecified shoulder] Onset: 01-25-2011 01-25-2011 Episodic Other non-traumatic joint disorders (1 source) Pain in left knee; Translations: [Pain in left knee] Onset: 08-02-2022 Episodic Other non-traumatic joint disorders (1 source) Effusion, left knee; Translations: [Effusion, left knee] Onset: 07-09-2022 Episodic Other non-traumatic joint disorders (2 sources) Pain in right shoulder; Translations: [Pain in right shoulder] Onset: 03-23-2022 Episodic Other screening for suspected conditions (not mental disorders or infectious disease) (20 sources) Echocardiogram abnormal; Translations: [Abnormal findings on diagnostic imaging of heart and coronary circulation] Onset: 12-29-2018 12-29-2018 Episodic Other upper respiratory infections (20 sources) Acute sinusitis; Translations: [Acute sinusitis, unspecified] Onset: 03-10-2021 03-10-2021 Episodic Superficial injury; contusion (1 source) Contusion of right shoulder, initial encounter; Translations: [Contusion of right shoulder, initial encounter] Onset: 03-23-2022 Episodic Results Test Name Value Interpretation Reference Range Facil ity Vital Signs Date Time Vital Sign Value Performing Clinician Sergey ga 06-16-2023 13:24-0500 Body weight 102.6 kg Adele Costa APRN.COURT OPERATIONS CLERK Work Phone: [facility] 06-16-2023 13:24-0500 Diastolic blood pressure 66 mm[Hg] Adele Costa APRN.CNP Work Phone: [facility] 06-16-2023 13:24-0500 Systolic blood pressure 108 mm[Hg] Adele Costa APRN.CNP Work Phone: [facility] 08-04-2022 09:40-0400 Body weight 109.77 kg Briana Leggett APRN.CNP Work Phone: [facility] 08-04-2022 09:40-0400 Diastolic blood pressure 82 mm[Hg] Briana Older OIL WELL DRILLING MANAGER.COURT OPERATIONS CLERK Work Phone: [facility] 08-04-2022 09:40-0400 Heart rate 72 /min Briana Older OIL WELL DRILLING MANAGER.COURT OPERATIONS CLERK Work Phone: [facility] 08-04-2022 09:40-0400 Respiratory rate 16 /min Briana Older OIL WELL DRILLING MANAGER.COURT OPERATIONS CLERK Work Phone: [facility] 08-04-2022 09:40-0400 Systolic blood pressure 124 mm[Hg] Briana Older OIL WELL DRILLING MANAGER.COURT OPERATIONS CLERK Work Phone: [facility] 05-07-2022 10:34-0500 Body temperature 98.49 [degF] Norm Hernandez Jr., MD Work Phone: [facility] 05-07-2022 10:34-0500 Body weight 108.32 kg Norm Hernandez Jr., MD Work Phone: [facility] 05-07-2022 10:34-0500 Diastolic blood pressure 89 mm[Hg] Norm Hernandez Jr., MD Work Phone: [facility] 05-07-2022 10:34-0500 Heart rate 97 /min Norm Hernandez Jr., MD Work Phone: [facility] 05-07-2022 10:34-0500 Respiratory rate 16 /min Norm Henrandez Jr., MD Work Phone: [facility] 05-07-2022 10:34-0500 SaO2% (BldA) [Mass fraction] 97 % Norm Hernandez Jr., MD Work Phone: [facility] 05-07-2022 10:34-0500 Systolic blood pressure 131 mm[Hg] Norm Hernandez Jr., MD Work Phone: [facility] 03-12-2022 10:02-0400 Body weight 106.59 kg Zayra Becker MD Work Phone: [facility] 03-12-2022 10:02-0400 Diastolic blood pressure 74 mm[Hg] Zayra Becker MD Work Phone: [facility] 03-12-2022 10:02-0400 Systolic blood pressure 120 mm[Hg] Zayra Becker MD Work Phone: [facility] 01-18-2022 09:32-0400 Body weight 105.69 kg Briana Older OIL WELL DRILLING MANAGER.COURT OPERATIONS CLERK Work Phone: [facility] 01-18-2022 09:32-0400 Diastolic blood pressure 74 mm[Hg] Briana Older OIL WELL DRILLING MANAGER.COURT OPERATIONS CLERK Work Phone: [facility] 01-18-2022 09:32-0400 Heart rate 76 /min Briana Older OIL WELL DRILLING MANAGER.COURT OPERATIONS CLERK Work Phone: [facility] 01-18-2022 09:32-0400 Respiratory rate 16 /min Briana Older OIL WELL DRILLING MANAGER.COURT OPERATIONS CLERK Work Phone: [facility] 01-18-2022 09:32-0400 Systolic blood pressure 118 mm[Hg] Briana Older OIL WELL DRILLING MANAGER.COURT OPERATIONS CLERK Work Phone: [facility] 12-04-2021 07:43-0400 Body temperature 96.91 [degF] Heber Lay MD Work Phone: [facility] 12-04-2021 07:43-0400 Body weight 102.42 kg Heber Lay MD Work Phone: [facility] 12-04-2021 07:43-0400 Diastolic blood pressure 72 mm[Hg] Heber Lay MD Work Phone: [facility] 12-04-2021 07:43-0400 Heart rate 88 /min Heber Lay MD Work Phone: [facility] 12-04-2021 07:43-0400 Respiratory rate 20 /min Heber Lay MD Work Phone: [facility] 12-04-2021 07:43-0400 SaO2% (BldA) [Mass fraction] 96 % Heber Lay MD Work Phone: [facility] 12-04-2021 07:43-0400 Systolic blood pressure 120 mm[Hg] Heber Lay MD Work Phone: [facility] 11-03-2021 09:59-0400 Body temperature 97.7 [degF] Sammy Yfn OIL WELL DRILLING MANAGER.COURT OPERATIONS CLERK Work Phone: [facility] 11-03-2021 09:59-0400 Body weight 104.87 kg Sammymaranda Coulter OIL WELL DRILLING MANAGER.COURT OPERATIONS CLERK Work Phone: [facility] 11-03-2021 09:59-0400 Diastolic blood pressure 88 mm[Hg] Sammy Yfn OIL WELL DRILLING MANAGER.COURT OPERATIONS CLERK Work Phone: [facility] 11-03-2021 09:59-0400 Heart rate 80 /min Sammy Coulter OIL WELL DRILLING MANAGER.COURT OPERATIONS CLERK Work Phone: [facility] 11-03-2021 09:59-0400 Respiratory rate 16 /min Sammy Coulter OIL WELL DRILLING MANAGER.COURT OPERATIONS CLERK Work Phone: [facility] 11-03-2021 09:59-0400 SaO2% (BldA) [Mass fraction] 98 % Sammy Coulter OIL WELL DRILLING MANAGER.COURT OPERATIONS CLERK Work Phone: [facility] 11-03-2021 09:59-0400 Systolic blood pressure 136 mm[Hg] Sammy Yfn OIL WELL DRILLING MANAGER.COURT OPERATIONS CLERK Work Phone: [facility] 10-16-2021 08:00-0400 Body weight 103.87 kg Briana Leggett OIL WELL DRILLING MANAGER.COURT OPERATIONS CLERK Work Phone: [facility] 10-16-2021 08:00-0400 Diastolic blood pressure 78 mm[Hg] Briana Older OIL WELL DRILLING MANAGER.COURT OPERATIONS CLERK Work Phone: [facility] 10-16-2021 08:00-0400 Heart rate 64 /min Briana Older OIL WELL DRILLING MANAGER.COURT OPERATIONS CLERK Work Phone: [facility] 10-16-2021 08:00-0400 Respiratory rate 16 /min Briana Older OIL WELL DRILLING MANAGER.COURT OPERATIONS CLERK Work Phone: [facility] 10-16-2021 08:00-0400 Systolic blood pressure 118 mm[Hg] Briana Leggett OIL WELL DRILLING MANAGER.COURT OPERATIONS CLERK Work Phone: [facility] 09-19-2021 08:30-0400 Body temperature 97 [degF] [facility] OIL WELL DRILLING MANAGER.COURT OPERATIONS CLERK Work Phone: [facility] 09-19-2021 08:30-0400 Body weight 104.6 [facility] OIL WELL DRILLING MANAGER.COURT OPERATIONS CLERK Work Phone: [facility] 09-19-2021 08:30-0400 Diastolic blood pressure 78 mm[Hg] [facility] OIL WELL DRILLING MANAGER.COURT OPERATIONS CLERK Work Phone: [facility] 09-19-2021 08:30-0400 Heart rate 83 /min [facility] OIL WELL DRILLING MANAGER.COURT OPERATIONS CLERK Work Phone: [facility] 09-19-2021 08:30-0400 Respiratory rate 18 /min [facility] OIL WELL DRILLING MANAGER.COURT OPERATIONS CLERK Work Phone: [facility] 09-19-2021 08:30-0400 SaO2% (BldA) [Mass fraction] 96 % [facility] OIL WELL DRILLING MANAGER.COURT OPERATIONS CLERK Work Phone: [facility] 09-19-2021 08:30-0400 Systolic blood pressure 110 mm[Hg] [facility] OIL WELL DRILLING MANAGER.COURT OPERATIONS CLERK Work Phone: [facility] Encounters Encounter Date Encounter Type Care Provider Facility Start: 06-24-2023 Telephone encounter Adele Huang natasha OIL WELL DRILLING MANAGER.COURT OPERATIONS CLERK Work Phone: OB/Gynecology Procedures Date Procedure Procedure Detail Performing Clinician Start: 05-11-2022 Mri any jt upper ext remity w/o contrast matrl Mitchel Staton MD Work Phone: Start: 01-18-2022 Ecg routine ecg w/le ast 12 lds w/i&r Briana Leggett OIL WELL DRILLING MANAGER.COURT OPERATIONS CLERK Work Phone: Start: 01-17-2022 Adult depression scr eening assessment Briana Leggett OIL WELL DRILLING MANAGER.COURT OPERATIONS CLERK Work Phone: Start: 12-02-2021 End: 12-02-2021 Visual field xm uni/bi w/interp extended exam Yo Segura MD Work Phone: Start: 10-14-2021 Adult depression scr eening assessment Briana Leggett OIL WELL DRILLING MANAGER.COURT OPERATIONS CLERK Work Phone: Start: 09-10-2021 Adult depression scr eening assessment Scot Carranza OIL WELL DRILLING MANAGER.COURT OPERATIONS CLERK Work Phone: Start: 07-31-2021 Arthrocentesis aspir &/inj major jt/bursa w/o us Vijayaantonia Sheridan DO Work Phone: Start: 06-14-2021 Adult depression scr eening assessment Chela Fatimah DO Work Phone: Plan of Treatment Date Care Activity Detail Author Start: 06-13-2028 Urine microalbumin profile [facility] Start: 03-12-2027 HPV TESTING HPV TESTING [facility] Start: 03-12-2027 PAP TESTING PAP TESTING [facility] Start: 03-12-2027 Screening for malign ant neoplasm of cervix [facility] Start: 09-15-2026 HPV TESTING HPV TESTING [facility] Start: 09-15-2026 PAP TESTING PAP TESTING [facility] Start: 07-21-2025 PAP TESTING PAP TESTING [facility] Start: 06-16-2024 BP Controlled (<130/80) BP Controlle d (<130/80) [facility] Start: 03-10-2024 BP Controlled (<130/80) BP Controlle d (<130/80) [facility] Start: 02-05-2024 Annual PCP Team Thermal Molder jacquie Disease Visit Annual PCP Team Chronic Disease Visit [facility] Start: 02-05-2024 BP Controlled (<130/80) BP Controlle d (<130/80) [facility] Start: 08-05-2023 ANNUAL PCP TEAM TRANSMISSION MECHANIC JACQUIE DISEASE VISIT ANNUAL PCP TEAM CHRONIC DISEASE VISIT [facility] Start: 08-05-2023 COVID-19 VACCINE (#1) COVID-19 VACCI NE (#1) [facility] Immunizations Immunization Date Immunization Notes Care Provider Fa cility 04-20-2022 influenza virus vacc ine, unspecified formulation Koki Worthington MD Work Phone: [facility] 03-02-2021 influenza, injectabl e, quadrivalent, contains preservative Chela Chicorelli DO Work Phone: [facility] Work Phone: 03-06-2020 influenza, injectabl e, quadrivalent, preservative free Chela Chicorelli DO Work Phone: [facility] Work Phone: 01-23-2020 influenza virus vacc ine, unspecified formulation Chela Chicorelli DO Work Phone: [facility] Work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 after antibiotic. KEEP REFRIGERATED potassium chloride 20 mEq TbER Take 1 tablet by mouth once daily as needed. pravastatin (PRAVACHOL) 20 mg tablet Take 20 mg by mouth daily at bedtime. nitroglycerin sublingual (NITROQUICK) 0.4 mg SL tablet Dissolve 1 tablet under the tongue every 5 minutes as needed. meclizine (ANTIVERT) 25 mg tab Take 25 mg by mouth twice daily as needed. sertraline (ZOLOFT) 100 mg tablet Take 100 mg by mouth twice daily. levonorgestrel (MIRENA) 20 mcg/24 hr (5 years) IUD Inserted in office No current facility-administered medications for this visit. Physical Exam Vitals: LMP 07/05/2020 Psych: Pleasant, good affect and mood General Appearance: Well appearing, alert, in no acute distress, well-hydrated, well nourished.. Skin: Skin color, texture, turgor normal, no suspicious rashes or lesions. Peripheral Pulses: Normal. Neurologic: Gait normal. Reflexes normal and symmetric. Sensation grossly intact.. Lymph Nodes: No cervical lymphadenopathy, No supraclavicular lymphadenopathy, No axillary lymphadenopathy. and No inguinal lymphadenopathy.. Respiratory: No recent pulmonary infection, hemoptysis, chronic cough, or shortness of breath at rest Rheumatologic: Joint deformities: Right shoulder pain Right Shoulder Exam Tenderness The patient is experiencing tenderness in the biceps tendon. Range of Motion Active abduction: abnormal Passive abduction: normal Extension: normal External rotation: normal Forward flexion: normal Internal rotation 0 degrees: normal Internal rotation 90 degrees: normal Muscle Strength Abduction: 5/5 Internal rotation: 5/5 External rotation: 5/5 Supraspinatus: 5/5 Subscapularis: 5/5 Biceps: 5/5 Tests Apprehension: negative Henriquez test: positive Cross arm: negative Impingement: positive Other Erythema: absent Sensation: normal Pulse: present Left Shoulder Exam Left shoulder exam is normal. Tenderness The patient is experiencing no tenderness. Range of Motion Active abduction: normal Passive abduction: normal Extension: normal External rotation: normal Forward flexion: normal Internal rotation 0 degrees: normal Internal rotation 90 degrees: normal Muscle Strength Abduction: 5/5 Internal rotation: 5/5 External rotation: 5/5 Supraspinatus: 5/5 Subscapularis: 5/5 Biceps: 5/5 Tests Apprehension: negative Henriquez test: negative Cross arm: negative Impingement: negative Other Erythema: absent Sensation: normal Pulse: present Assessment and Plan Radiographs: I have independently reviewed films and my findings are the same. Impression: Encounter Diagnosis ICD-10-CM 1. Multiple joint complaints M25.9 CONSULT TO RHEUM/IMMUN DISEASE Discussed emg findings- normal Consult rheum for multiple joint complaints/ swelling; discussed optho results/visit recommentdations patient is going to see a neuro optho for evaluation Injection right shoulder today Discussed optho visit- still having numbness on right side of the face Today, in detail, through a thorough evaluation, we discussed possible etiologies of pain and our plans for further diagnostic and therapeutic interventions. We discussed strategies for decreasing pain and improving strength, stability and motion. Patient's questions were answered in detailed. Patient verbalizes understanding and agrees with the treatment plan as discussed. Discussed with patient possible options for treatment. Patient elected proceed with injection. Patient told not to submerge the injected area for 24 hours in a hot tub, or bath, injection may take 2 weeks for improvement to be noticed, follow-up in 2 -6 weeks if symptoms do not resolve. All questions answered patient agreement of plan. Apply ice Limit activities as discussed Rest Do not submerge limb in water for 24 hours Cont current meds Watch sugars/decrease carbs Call if warm/hot/red Discussed with patient that if the injection does not work after 2 to 4 weeks to come back for reevaluation. Discussed the next 3 days may feel worse before it feels better. Discussed if having continued pain to return. May get injection every 3 months Large Joint Arthro/Inj: R subacromial bursa Informed Consent Consent Obtained: Verbal [place] Protocol A moment to CARE was completed. SIGN IN Sign in communication not applicable due to emergent procedure. Personnel directly involved with the procedure wore the appropriate PPE. Special Equipment: N/A Patient/Surrogate Stated/Verified: Patient name, Date of , Relevant allergies and Intended procedure TIME OUT Intended patient and procedure match the source document(s). Consent documented and matches the intended procedure. Relevant labs, photos, and/or imaging studies have been reviewed. No relevant labs, photos, and/or imaging studies were applicable for review. Correct side/site marked and visible. Medications required for procedure verified. No fire risk assessment and interventions applicable. No implant(s) inserted. 07/31/2021 7:30 PM The procedure site was prepped in the usual sterile fashion. Site: R subacromial bursa Medications: 6 mg betamethasone acetate-betamethasone sodium phosphate 6 mg/mL; 80 mg triamcinolone acetonide 40 mg/mL Anesthetics: 8 mL ropivacaine (PF) 5 mg/mL (0.5 %) Outcome: Tolerated well, no immediate complications Post-injection instructions were reviewed with the patient and the patient voiced understanding of these instructions. SIGN OUT All specimen containers correctly labeled. All instruments, equipment, possible retained foreign bodies accounted for. Post-procedure follow-up management communicated and Plan of Care Visit completed when applicable No allergic reaction/response to injection today Comment: Please note this report has been produced using speech recognition software and may contain errors related to that system including errors in grammar, punctuation, and spelling, as well as words and phrases that may be inappropriate. If there are any questions or concerns please feel free to contact the dictating provider for clarification. documented in this encounter [facility] documented as of this encounter (statuses as of 07/31/2021) [facility] History of Past illness Narrative* Problem Noted Date Resolved Date Contusion of right wrist 07/29/2015 016 Pain in left wrist 05/06/2015 02/17/2016 Pain in right wrist 05/06/2015 02/17/2016 Vaginitis and vulvovaginitis, unspecified 201206/13/2018 Vaginal discharge 12/07/2012 10/02/2013 Vulvitis 08/29/2012 06/13/2018 Iron deficiency anemia of 10/20/2011 02/18/2012 Overview: Start iron supplement Other and unspecified disc disorder of cervical region 08/05/2011 09/03/2011 Smoker 06/24/2010 06/24/2021 Bronchitis 06/24/2010 09/03/2011 Cervical lymphadenopathy 03/16/2010 012 Genital warts 12/02/2009 07/15/2011 Snoring 09/29/2009 07/15/2011 Overview: Sleep study completed 09/23/07 Benign neoplasm of skin of trunk, except scrotum 03/14/2009 10/06/2010 Unspecified disorder of skin and subcutaneous ti ssue 03/01/2009 07/15/2011 Other threatened labor, antepartum 11/19/2008 04/30/2009 Non-healing surgical wound 01/16/200804/30 documented as of this encounter (statuses as of 09/19/2021) [facility] History of Past illness Narrative* Problem Noted Date Resolved Date Contusion of right wrist 07/29/2015 016 Pain in left wrist 05/06/2015 02/17/2016 Pain in right wrist 05/06/2015 02/17/2016 Vaginitis and vulvovaginitis, unspecified 201206/13/2018 Vaginal discharge 12/07/2012 10/02/2013 Vulvitis 08/29/2012 06/13/2018 Iron deficiency anemia of 10/20/2011 02/18/2012 Overview: Start iron supplement Other and unspecified disc disorder of cervical region 08/05/2011 09/03/2011 Smoker 06/24/2010 06/24/2021 Bronchitis 06/24/2010 09/03/2011 Cervical lymphadenopathy 03/16/2010 012 Genital warts 12/02/2009 07/15/2011 Snoring 09/29/2009 07/15/2011 Overview: Sleep study completed 09/23/07 Benign neoplasm of skin of trunk, except scrotum 03/14/2009 10/06/2010 Unspecified disorder of skin and subcutaneous ti ssue 03/01/2009 07/15/2011 Other threatened labor, antepartum 11/19/2008 04/30/2009 Non-healing surgical wound 01/16/200804/30 documented as of this encounter (statuses as of 10/16/2021) [facility] History of Past illness Narrative* Problem Noted Date Resolved Date Contusion of right wrist 07/29/2015 016 Pain in left wrist 05/06/2015 02/17/2016 Pain in right wrist 05/06/2015 02/17/2016 Vaginitis and vulvovaginitis, unspecified 201206/13/2018 Vaginal discharge 12/07/2012 10/02/2013 Vulvitis 08/29/2012 06/13/2018 Iron deficiency anemia of 10/20/2011 02/18/2012 Overview: Start iron supplement Other and unspecified disc disorder of cervical region 08/05/2011 09/03/2011 Smoker 06/24/2010 06/24/2021 Bronchitis 06/24/2010 09/03/2011 Cervical lymphadenopathy 03/16/2010 012 Genital warts 12/02/2009 07/15/2011 Snoring 09/29/2009 07/15/2011 Overview: Sleep study completed 09/23/07 Benign neoplasm of skin of trunk, except scrotum 03/14/2009 10/06/2010 Unspecified disorder of skin and subcutaneous ti ssue 03/01/2009 07/15/2011 Other threatened labor, antepartum 11/19/2008 04/30/2009 Non-healing surgical wound 01/16/200804/30 documented as of this encounter (statuses as of 11/03/2021) [facility] History of Past illness Narrative* Problem Noted Date Resolved Date Contusion of right wrist 07/29/2015 016 Pain in left wrist 05/06/2015 02/17/2016 Pain in right wrist 05/06/2015 02/17/2016 Vaginitis and vulvovaginitis, unspecified 201206/13/2018 Vaginal discharge 12/07/2012 10/02/2013 Vulvitis 08/29/2012 06/13/2018 Iron deficiency anemia of 10/20/2011 02/18/2012 Overview: Start iron supplement Other and unspecified disc disorder of cervical region 08/05/2011 09/03/2011 Smoker 06/24/2010 06/24/2021 Bronchitis 06/24/2010 09/03/2011 Cervical lymphadenopathy 03/16/2010 012 Genital warts 12/02/2009 07/15/2011 Snoring 09/29/2009 07/15/2011 Overview: Sleep study completed 09/23/07 Benign neoplasm of skin of trunk, except scrotum 03/14/2009 10/06/2010 Unspecified disorder of skin and subcutaneous ti ssue 03/01/2009 07/15/2011 Other threatened labor, antepartum 11/19/2008 04/30/2009 Non-healing surgical wound 01/16/200804/30 documented as of this encounter (statuses as of 11/04/2021) [facility] History of Past illness Narrative* Problem Noted Date Resolved Date Contusion of right wrist 07/29/2015 016 Pain in left wrist 05/06/2015 02/17/2016 Pain in right wrist 05/06/2015 02/17/2016 Vaginitis and vulvovaginitis, unspecified 201206/13/2018 Vaginal discharge 12/07/2012 10/02/2013 Vulvitis 08/29/2012 06/13/2018 Iron deficiency anemia of 10/20/2011 02/18/2012 Overview: Start iron supplement Other and unspecified disc disorder of cervical region 08/05/2011 09/03/2011 Smoker 06/24/2010 06/24/2021 Bronchitis 06/24/2010 09/03/2011 Cervical lymphadenopathy 03/16/2010 012 Genital warts 12/02/2009 07/15/2011 Snoring 09/29/2009 07/15/2011 Overview: Sleep study completed 09/23/07 Benign neoplasm of skin of trunk, except scrotum 03/14/2009 10/06/2010 Unspecified disorder of skin and subcutaneous ti ssue 03/01/2009 07/15/2011 Other threatened labor, antepartum 11/19/2008 04/30/2009 Non-healing surgical wound 01/16/200804/30 documented as of this encounter (statuses as of 11/19/2021) [facility] History of Past illness Narrative* Problem Noted Date Resolved Date Contusion of right wrist 07/29/2015 016 Pain in left wrist 05/06/2015 02/17/2016 Pain in right wrist 05/06/2015 02/17/2016 Vaginitis and vulvovaginitis, unspecified 201206/13/2018 Vaginal discharge 12/07/2012 10/02/2013 Vulvitis 08/29/2012 06/13/2018 Iron deficiency anemia of 10/20/2011 02/18/2012 Overview: Start iron supplement Other and unspecified disc disorder of cervical region 08/05/2011 09/03/2011 Smoker 06/24/2010 06/24/2021 Bronchitis 06/24/2010 09/03/2011 Cervical lymphadenopathy 03/16/2010 012 Genital warts 12/02/2009 07/15/2011 Snoring 09/29/2009 07/15/2011 Overview: Sleep study completed 09/23/07 Benign neoplasm of skin of trunk, except scrotum 03/14/2009 10/06/2010 Unspecified disorder of skin and subcutaneous ti ssue 03/01/2009 07/15/2011 Other threatened labor, antepartum 11/19/2008 04/30/2009 Non-healing surgical wound 01/16/200804/30 documented as of this encounter (statuses as of 12/02/2021) [facility] History of Past illness Narrative* Problem Noted Date Resolved Date Contusion of right wrist 07/29/2015 016 Pain in left wrist 05/06/2015 02/17/2016 Pain in right wrist 05/06/2015 02/17/2016 Vaginitis and vulvovaginitis, unspecified 201206/13/2018 Vaginal discharge 12/07/2012 10/02/2013 Vulvitis 08/29/2012 06/13/2018 Iron deficiency anemia of 10/20/2011 02/18/2012 Overview: Start iron supplement Other and unspecified disc disorder of cervical region 08/05/2011 09/03/2011 Smoker 06/24/2010 06/24/2021 Bronchitis 06/24/2010 09/03/2011 Cervical lymphadenopathy 03/16/2010 012 Genital warts 12/02/2009 07/15/2011 Snoring 09/29/2009 07/15/2011 Overview: Sleep study completed 09/23/07 Benign neoplasm of skin of trunk, except scrotum 03/14/2009 10/06/2010 Unspecified disorder of skin and subcutaneous ti ssue 03/01/2009 07/15/2011 Other threatened labor, antepartum 11/19/2008 04/30/2009 Non-healing surgical wound 01/16/200804/30 documented as of this encounter (statuses as of 12/04/2021) [facility] History of Past illness Narrative* Problem Noted Date Resolved Date Contusion of right wrist 07/29/2015 016 Pain in left wrist 05/06/2015 02/17/2016 Pain in right wrist 05/06/2015 02/17/2016 Vaginitis and vulvovaginitis, unspecified 201206/13/2018 Vaginal discharge 12/07/2012 10/02/2013 Vulvitis 08/29/2012 06/13/2018 Iron deficiency anemia of 10/20/2011 02/18/2012 Overview: Start iron supplement Other and unspecified disc disorder of cervical region 08/05/2011 09/03/2011 Smoker 06/24/2010 06/24/2021 Bronchitis 06/24/2010 09/03/2011 Cervical lymphadenopathy 03/16/2010 012 Genital warts 12/02/2009 07/15/2011 Snoring 09/29/2009 07/15/2011 Overview: Sleep study completed 09/23/07 Benign neoplasm of skin of trunk, except scrotum 03/14/2009 10/06/2010 Unspecified disorder of skin and subcutaneous ti ssue 03/01/2009 07/15/2011 Other threatened labor, antepartum 11/19/2008 04/30/2009 Non-healing surgical wound 01/16/200804/30 documented as of this encounter (statuses as of 12/21/2021) [facility] History of Past illness Narrative* Problem Noted Date Resolved Date Contusion of right wrist 07/29/2015 016 Pain in left wrist 05/06/2015 02/17/2016 Pain in right wrist 05/06/2015 02/17/2016 Vaginitis and vulvovaginitis, unspecified 201206/13/2018 Vaginal discharge 12/07/2012 10/02/2013 Vulvitis 08/29/2012 06/13/2018 Iron deficiency anemia of 10/20/2011 02/18/2012 Overview: Start iron supplement Other and unspecified disc disorder of cervical region 08/05/2011 09/03/2011 Smoker 06/24/2010 06/24/2021 Bronchitis 06/24/2010 09/03/2011 Cervical lymphadenopathy 03/16/2010 012 Genital warts 12/02/2009 07/15/2011 Snoring 09/29/2009 07/15/2011 Overview: Sleep study completed 09/23/07 Benign neoplasm of skin of trunk, except scrotum 03/14/2009 10/06/2010 Unspecified disorder of skin and subcutaneous ti ssue 03/01/2009 07/15/2011 Other threatened labor, antepartum 11/19/2008 04/30/2009 Non-healing surgical wound 01/16/200804/30 documented as of this encounter (statuses as of 01/20/2022) [facility] History of Past illness Narrative* Problem Noted Date Resolved Date Contusion of right wrist 07/29/2015 016 Pain in left wrist 05/06/2015 02/17/2016 Pain in right wrist 05/06/2015 02/17/2016 Vaginitis and vulvovaginitis, unspecified 201206/13/2018 Vaginal discharge 12/07/2012 10/02/2013 Vulvitis 08/29/2012 06/13/2018 Iron deficiency anemia of 10/20/2011 02/18/2012 Overview: Start iron supplement Other and unspecified disc disorder of cervical region 08/05/2011 09/03/2011 Smoker 06/24/2010 06/24/2021 Bronchitis 06/24/2010 09/03/2011 Cervical lymphadenopathy 03/16/2010 012 Genital warts 12/02/2009 07/15/2011 Snoring 09/29/2009 07/15/2011 Overview: Sleep study completed 09/23/07 Benign neoplasm of skin of trunk, except scrotum 03/14/2009 10/06/2010 Unspecified disorder of skin and subcutaneous ti ssue 03/01/2009 07/15/2011 Other threatened labor, antepartum 11/19/2008 04/30/2009 Non-healing surgical wound 01/16/200804/30 documented as of this encounter (statuses as of 02/11/2022) [facility] History of Past illness Narrative* Problem Noted Date Resolved Date Contusion of right wrist 07/29/2015 016 Pain in left wrist 05/06/2015 02/17/2016 Pain in right wrist 05/06/2015 02/17/2016 Vaginitis and vulvovaginitis, unspecified 201206/13/2018 Vaginal discharge 12/07/2012 10/02/2013 Vulvitis 08/29/2012 06/13/2018 Iron deficiency anemia of 10/20/2011 02/18/2012 Overview: Start iron supplement Other and unspecified disc disorder of cervical region 08/05/2011 09/03/2011 Smoker 06/24/2010 06/24/2021 Bronchitis 06/24/2010 09/03/2011 Cervical lymphadenopathy 03/16/2010 012 Genital warts 12/02/2009 07/15/2011 Snoring 09/29/2009 07/15/2011 Overview: Sleep study completed 09/23/07 Benign neoplasm of skin of trunk, except scrotum 03/14/2009 10/06/2010 Unspecified disorder of skin and subcutaneous ti ssue 03/01/2009 07/15/2011 Other threatened labor, antepartum 11/19/2008 04/30/2009 Non-healing surgical wound 01/16/200804/30 documented as of this encounter (statuses as of 02/25/2022) [facility] History of Past illness Narrative* Problem Noted Date Resolved Date Contusion of right wrist 07/29/2015 016 Pain in left wrist 05/06/2015 02/17/2016 Pain in right wrist 05/06/2015 02/17/2016 Vaginitis and vulvovaginitis, unspecified 201206/13/2018 Vaginal discharge 12/07/2012 10/02/2013 Vulvitis 08/29/2012 06/13/2018 Iron deficiency anemia of 10/20/2011 02/18/2012 Overview: Start iron supplement Other and unspecified disc disorder of cervical region 08/05/2011 09/03/2011 Smoker 06/24/2010 06/24/2021 Bronchitis 06/24/2010 09/03/2011 Cervical lymphadenopathy 03/16/2010 012 Genital warts 12/02/2009 07/15/2011 Snoring 09/29/2009 07/15/2011 Overview: Sleep study completed 09/23/07 Benign neoplasm of skin of trunk, except scrotum 03/14/2009 10/06/2010 Unspecified disorder of skin and subcutaneous ti ssue 03/01/2009 07/15/2011 Other threatened labor, antepartum 11/19/2008 04/30/2009 Non-healing surgical wound 01/16/200804/30 documented as of this encounter (statuses as of 03/12/2022) [facility]-2016 History of Past illness Narrative* Problem Noted Date Resolved Date Contusion of right wrist 07/29/2015 016 Pain in left wrist 05/06/2015 02/17/2016 Pain in right wrist 05/06/2015 02/17/2016 Vaginitis and vulvovaginitis, unspecified 201206/13/2018 Vaginal discharge 12/07/2012 10/02/2013 Vulvitis 08/29/2012 06/13/2018 Iron deficiency anemia of 10/20/2011 02/18/2012 Overview: Start iron supplement Other and unspecified disc disorder of cervical region 08/05/2011 09/03/2011 Smoker 06/24/2010 06/24/2021 Bronchitis 06/24/2010 09/03/2011 Cervical lymphadenopathy 03/16/2010 012 Genital warts 12/02/2009 07/15/2011 Snoring 09/29/2009 07/15/2011 Overview: Sleep study completed 09/23/07 Benign neoplasm of skin of trunk, except scrotum 03/14/2009 10/06/2010 Unspecified disorder of skin and subcutaneous ti ssue 03/01/2009 07/15/2011 Other threatened labor, antepartum 11/19/2008 04/30/2009 Non-healing surgical wound 01/16/200804/30 documented as of this encounter (statuses as of 03/18/2022) [facility] History of Past illness Narrative* Problem Noted Date Resolved Date Contusion of right wrist 07/29/2015 016 Pain in left wrist 05/06/2015 02/17/2016 Pain in right wrist 05/06/2015 02/17/2016 Vaginitis and vulvovaginitis, unspecified 201206/13/2018 Vaginal discharge 12/07/2012 10/02/2013 Vulvitis 08/29/2012 06/13/2018 Iron deficiency anemia of 10/20/2011 02/18/2012 Overview: Start iron supplement Other and unspecified disc disorder of cervical region 08/05/2011 09/03/2011 Smoker 06/24/2010 06/24/2021 Bronchitis 06/24/2010 09/03/2011 Cervical lymphadenopathy 03/16/2010 012 Genital warts 12/02/2009 07/15/2011 Snoring 09/29/2009 07/15/2011 Overview: Sleep study completed 09/23/07 Benign neoplasm of skin of trunk, except scrotum 03/14/2009 10/06/2010 Unspecified disorder of skin and subcutaneous ti ssue 03/01/2009 07/15/2011 Other threatened labor, antepartum 11/19/2008 04/30/2009 Non-healing surgical wound 01/16/200804/30 documented as of this encounter (statuses as of 03/19/2022) [facility] History of Past illness Narrative* Problem Noted Date Resolved Date Contusion of right wrist 07/29/2015 016 Pain in left wrist 05/06/2015 02/17/2016 Pain in right wrist 05/06/2015 02/17/2016 Vaginitis and vulvovaginitis, unspecified 201206/13/2018 Vaginal discharge 12/07/2012 10/02/2013 Vulvitis 08/29/2012 06/13/2018 Iron deficiency anemia of 10/20/2011 02/18/2012 Overview: Start iron supplement Other and unspecified disc disorder of cervical region 08/05/2011 09/03/2011 Smoker 06/24/2010 06/24/2021 Bronchitis 06/24/2010 09/03/2011 Cervical lymphadenopathy 03/16/2010 012 Genital warts 12/02/2009 07/15/2011 Snoring 09/29/2009 07/15/2011 Overview: Sleep study completed 09/23/07 Benign neoplasm of skin of trunk, except scrotum 03/14/2009 10/06/2010 Unspecified disorder of skin and subcutaneous ti ssue 03/01/2009 07/15/2011 Other threatened labor, antepartum 11/19/2008 04/30/2009 Non-healing surgical wound 01/16/200804/30 documented as of this encounter (statuses as of 04/07/2022) [facility] History of Past illness Narrative* Problem Noted Date Resolved Date Contusion of right wrist 07/29/2015 016 Pain in left wrist 05/06/2015 02/17/2016 Pain in right wrist 05/06/2015 02/17/2016 Vaginitis and vulvovaginitis, unspecified 201206/13/2018 Vaginal discharge 12/07/2012 10/02/2013 Vulvitis 08/29/2012 06/13/2018 Iron deficiency anemia of 10/20/2011 02/18/2012 Overview: Start iron supplement Other and unspecified disc disorder of cervical region 08/05/2011 09/03/2011 Smoker 06/24/2010 06/24/2021 Bronchitis 06/24/2010 09/03/2011 Cervical lymphadenopathy 03/16/2010 012 Genital warts 12/02/2009 07/15/2011 Snoring 09/29/2009 07/15/2011 Overview: Sleep study completed 09/23/07 Benign neoplasm of skin of trunk, except scrotum 03/14/2009 10/06/2010 Unspecified disorder of skin and subcutaneous ti ssue 03/01/2009 07/15/2011 Other threatened labor, antepartum 11/19/2008 04/30/2009 Non-healing surgical wound 01/16/200804/30 documented as of this encounter (statuses as of 04/07/2022) [facility] History of Past illness Narrative* Problem Noted Date Resolved Date Contusion of right wrist 07/29/2015 016 Pain in left wrist 05/06/2015 02/17/2016 Pain in right wrist 05/06/2015 02/17/2016 Vaginitis and vulvovaginitis, unspecified 201206/13/2018 Vaginal discharge 12/07/2012 10/02/2013 Vulvitis 08/29/2012 06/13/2018 Iron deficiency anemia of 10/20/2011 02/18/2012 Overview: Start iron supplement Other and unspecified disc disorder of cervical region 08/05/2011 09/03/2011 Smoker 06/24/2010 06/24/2021 Bronchitis 06/24/2010 09/03/2011 Cervical lymphadenopathy 03/16/2010 012 Genital warts 12/02/2009 07/15/2011 Snoring 09/29/2009 07/15/2011 Overview: Sleep study completed 09/23/07 Benign neoplasm of skin of trunk, except scrotum 03/14/2009 10/06/2010 Unspecified disorder of skin and subcutaneous ti ssue 03/01/2009 07/15/2011 Other threatened labor, antepartum 11/19/2008 04/30/2009 Non-healing surgical wound 01/16/200804/30 documented as of this encounter (statuses as of 04/21/2022) [facility] History of Past illness Narrative* Problem Noted Date Resolved Date Contusion of right wrist 07/29/2015 016 Pain in left wrist 05/06/2015 02/17/2016 Pain in right wrist 05/06/2015 02/17/2016 Vaginitis and vulvovaginitis, unspecified 201206/13/2018 Vaginal discharge 12/07/2012 10/02/2013 Vulvitis 08/29/2012 06/13/2018 Iron deficiency anemia of 10/20/2011 02/18/2012 Overview: Start iron supplement Other and unspecified disc disorder of cervical region 08/05/2011 09/03/2011 Smoker 06/24/2010 06/24/2021 Bronchitis 06/24/2010 09/03/2011 Cervical lymphadenopathy 03/16/2010 012 Genital warts 12/02/2009 07/15/2011 Snoring 09/29/2009 07/15/2011 Overview: Sleep study completed 09/23/07 Benign neoplasm of skin of trunk, except scrotum 03/14/2009 10/06/2010 Unspecified disorder of skin and subcutaneous ti ssue 03/01/2009 07/15/2011 Other threatened labor, antepartum 11/19/2008 04/30/2009 Non-healing surgical wound 01/16/200804/30 documented as of this encounter (statuses as of 05/12/2022) [facility] History of Past illness Narrative* Problem Noted Date Resolved Date Contusion of right wrist 07/29/2015 016 Pain in left wrist 05/06/2015 02/17/2016 Pain in right wrist 05/06/2015 02/17/2016 Vaginitis and vulvovaginitis, unspecified 201206/13/2018 Vaginal discharge 12/07/2012 10/02/2013 Vulvitis 08/29/2012 06/13/2018 Iron deficiency anemia of 10/20/2011 02/18/2012 Overview: Start iron supplement Other and unspecified disc disorder of cervical region 08/05/2011 09/03/2011 Smoker 06/24/2010 06/24/2021 Bronchitis 06/24/2010 09/03/2011 Cervical lymphadenopathy 03/16/2010 012 Genital warts 12/02/2009 07/15/2011 Snoring 09/29/2009 07/15/2011 Overview: Sleep study completed 09/23/07 Benign neoplasm of skin of trunk, except scrotum 03/14/2009 10/06/2010 Unspecified disorder of skin and subcutaneous ti ssue 03/01/2009 07/15/2011 Other threatened labor, antepartum 11/19/2008 04/30/2009 Non-healing surgical wound 01/16/200804/30 documented as of this encounter (statuses as of 05/20/2022) [facility] History of Past illness Narrative* Problem Noted Date Resolved Date Contusion of right wrist 07/29/2015 016 Pain in left wrist 05/06/2015 02/17/2016 Pain in right wrist 05/06/2015 02/17/2016 Vaginitis and vulvovaginitis, unspecified 201206/13/2018 Vaginal discharge 12/07/2012 10/02/2013 Vulvitis 08/29/2012 06/13/2018 Iron deficiency anemia of 10/20/2011 02/18/2012 Overview: Start iron supplement Other and unspecified disc disorder of cervical region 08/05/2011 09/03/2011 Smoker 06/24/2010 06/24/2021 Bronchitis 06/24/2010 09/03/2011 Cervical lymphadenopathy 03/16/2010 012 Genital warts 12/02/2009 07/15/2011 Snoring 09/29/2009 07/15/2011 Overview: Sleep study completed 09/23/07 Benign neoplasm of skin of trunk, except scrotum 03/14/2009 10/06/2010 Unspecified disorder of skin and subcutaneous ti ssue 03/01/2009 07/15/2011 Other threatened labor, antepartum 11/19/2008 04/30/2009 Non-healing surgical wound 01/16/200804/30 documented as of this encounter (statuses as of 05/27/2022) [facility] History of Past illness Narrative* Problem Noted Date Resolved Date Contusion of right wrist 07/29/2015 016 Pain in left wrist 05/06/2015 02/17/2016 Pain in right wrist 05/06/2015 02/17/2016 Vaginitis and vulvovaginitis, unspecified 201206/13/2018 Vaginal discharge 12/07/2012 10/02/2013 Vulvitis 08/29/2012 06/13/2018 Iron deficiency anemia of 10/20/2011 02/18/2012 Overview: Start iron supplement Other and unspecified disc disorder of cervical region 08/05/2011 09/03/2011 Smoker 06/24/2010 06/24/2021 Bronchitis 06/24/2010 09/03/2011 Cervical lymphadenopathy 03/16/2010 012 Genital warts 12/02/2009 07/15/2011 Snoring 09/29/2009 07/15/2011 Overview: Sleep study completed 09/23/07 Benign neoplasm of skin of trunk, except scrotum 03/14/2009 10/06/2010 Unspecified disorder of skin and subcutaneous ti ssue 03/01/2009 07/15/2011 Other threatened labor, antepartum 11/19/2008 04/30/2009 Non-healing surgical wound 01/16/200804/30 documented as of this encounter (statuses as of 05/30/2022) [facility] History of Past illness Narrative* Problem Noted Date Resolved Date Contusion of right wrist 07/29/2015 016 Pain in left wrist 05/06/2015 02/17/2016 Pain in right wrist 05/06/2015 02/17/2016 Vaginitis and vulvovaginitis, unspecified 201206/13/2018 Vaginal discharge 12/07/2012 10/02/2013 Vulvitis 08/29/2012 06/13/2018 Iron deficiency anemia of 10/20/2011 02/18/2012 Overview: Start iron supplement Other and unspecified disc disorder of cervical region 08/05/2011 09/03/2011 Smoker 06/24/2010 06/24/2021 Bronchitis 06/24/2010 09/03/2011 Cervical lymphadenopathy 03/16/2010 012 Genital warts 12/02/2009 07/15/2011 Snoring 09/29/2009 07/15/2011 Overview: Sleep study completed 09/23/07 Benign neoplasm of skin of trunk, except scrotum 03/14/2009 10/06/2010 Unspecified disorder of skin and subcutaneous ti ssue 03/01/2009 07/15/2011 Other threatened labor, antepartum 11/19/2008 04/30/2009 Non-healing surgical wound 01/16/200804/30 documented as of this encounter (statuses as of 06/09/2022) [facility] History of Past illness Narrative* Problem Noted Date Resolved Date Contusion of right wrist 07/29/2015 016 Pain in left wrist 05/06/2015 02/17/2016 Pain in right wrist 05/06/2015 02/17/2016 Vaginitis and vulvovaginitis, unspecified 201206/13/2018 Vaginal discharge 12/07/2012 10/02/2013 Vulvitis 08/29/2012 06/13/2018 Iron deficiency anemia of 10/20/2011 02/18/2012 Overview: Start iron supplement Other and unspecified disc disorder of cervical region 08/05/2011 09/03/2011 Smoker 06/24/2010 06/24/2021 Bronchitis 06/24/2010 09/03/2011 Cervical lymphadenopathy 03/16/2010 012 Genital warts 12/02/2009 07/15/2011 Snoring 09/29/2009 07/15/2011 Overview: Sleep study completed 09/23/07 Benign neoplasm of skin of trunk, except scrotum 03/14/2009 10/06/2010 Unspecified disorder of skin and subcutaneous ti ssue 03/01/2009 07/15/2011 Other threatened labor, antepartum 11/19/2008 04/30/2009 Non-healing surgical wound 01/16/200804/30 documented as of this encounter (statuses as of 06/18/2022) [facility] History of Past illness Narrative* Problem Noted Date Resolved Date Contusion of right wrist 07/29/2015 016 Pain in left wrist 05/06/2015 02/17/2016 Pain in right wrist 05/06/2015 02/17/2016 Vaginitis and vulvovaginitis, unspecified 201206/13/2018 Vaginal discharge 12/07/2012 10/02/2013 Vulvitis 08/29/2012 06/13/2018 Iron deficiency anemia of 10/20/2011 02/18/2012 Overview: Start iron supplement Other and unspecified disc disorder of cervical region 08/05/2011 09/03/2011 Smoker 06/24/2010 06/24/2021 Bronchitis 06/24/2010 09/03/2011 Cervical lymphadenopathy 03/16/2010 012 Genital warts 12/02/2009 07/15/2011 Snoring 09/29/2009 07/15/2011 Overview: Sleep study completed 09/23/07 Benign neoplasm of skin of trunk, except scrotum 03/14/2009 10/06/2010 Unspecified disorder of skin and subcutaneous ti ssue 03/01/2009 07/15/2011 Other threatened labor, antepartum 11/19/2008 04/30/2009 Non-healing surgical wound 01/16/200804/30 documented as of this encounter (statuses as of 07/01/2022) [facility] History of Past illness Narrative* Problem Noted Date Resolved Date Contusion of right wrist 07/29/2015 016 Pain in left wrist 05/06/2015 02/17/2016 Pain in right wrist 05/06/2015 02/17/2016 Vaginitis and vulvovaginitis, unspecified 201206/13/2018 Vaginal discharge 12/07/2012 10/02/2013 Vulvitis 08/29/2012 06/13/2018 Iron deficiency anemia of 10/20/2011 02/18/2012 Overview: Start iron supplement Other and unspecified disc disorder of cervical region 08/05/2011 09/03/2011 Smoker 06/24/2010 06/24/2021 Bronchitis 06/24/2010 09/03/2011 Cervical lymphadenopathy 03/16/2010 012 Genital warts 12/02/2009 07/15/2011 Snoring 09/29/2009 07/15/2011 Overview: Sleep study completed 09/23/07 Benign neoplasm of skin of trunk, except scrotum 03/14/2009 10/06/2010 Unspecified disorder of skin and subcutaneous ti ssue 03/01/2009 07/15/2011 Other threatened labor, antepartum 11/19/2008 04/30/2009 Non-healing surgical wound 01/16/200804/30 documented as of this encounter (statuses as of 07/07/2022) [facility] History of Past illness Narrative* Problem Noted Date Resolved Date Contusion of right wrist 07/29/2015 016 Pain in left wrist 05/06/2015 02/17/2016 Pain in right wrist 05/06/2015 02/17/2016 Vaginitis and vulvovaginitis, unspecified 201206/13/2018 Vaginal discharge 12/07/2012 10/02/2013 Vulvitis 08/29/2012 06/13/2018 Iron deficiency anemia of 10/20/2011 02/18/2012 Overview: Start iron supplement Other and unspecified disc disorder of cervical region 08/05/2011 09/03/2011 Smoker 06/24/2010 06/24/2021 Bronchitis 06/24/2010 09/03/2011 Cervical lymphadenopathy 03/16/2010 012 Genital warts 12/02/2009 07/15/2011 Snoring 09/29/2009 07/15/2011 Overview: Sleep study completed 09/23/07 Benign neoplasm of skin of trunk, except scrotum 03/14/2009 10/06/2010 Unspecified disorder of skin and subcutaneous ti ssue 03/01/2009 07/15/2011 Other threatened labor, antepartum 11/19/2008 04/30/2009 Non-healing surgical wound 01/16/200804/30 documented as of this encounter (statuses as of 08/04/2022) [facility] History of Past illness Narrative* Problem Noted Date Resolved Date Contusion of right wrist 07/29/2015 016 Pain in left wrist 05/06/2015 02/17/2016 Pain in right wrist 05/06/2015 02/17/2016 Vaginitis and vulvovaginitis, unspecified 201206/13/2018 Vaginal discharge 12/07/2012 10/02/2013 Vulvitis 08/29/2012 06/13/2018 Iron deficiency anemia of 10/20/2011 02/18/2012 Overview: Start iron supplement Other and unspecified disc disorder of cervical region 08/05/2011 09/03/2011 Smoker 06/24/2010 06/24/2021 Bronchitis 06/24/2010 09/03/2011 Cervical lymphadenopathy 03/16/2010 012 Genital warts 12/02/2009 07/15/2011 Snoring 09/29/2009 07/15/2011 Overview: Sleep study completed 09/23/07 Benign neoplasm of skin of trunk, except scrotum 03/14/2009 10/06/2010 Unspecified disorder of skin and subcutaneous ti ssue 03/01/2009 07/15/2011 Other threatened labor, antepartum 11/19/2008 04/30/2009 Non-healing surgical wound 01/16/200804/30 documented as of this encounter (statuses as of 08/10/2022) [facility] History of Past illness Narrative* Problem Noted Date Resolved Date Contusion of right wrist 07/29/2015 016 Pain in left wrist 05/06/2015 02/17/2016 Pain in right wrist 05/06/2015 02/17/2016 Vaginitis and vulvovaginitis, unspecified 201206/13/2018 Vaginal discharge 12/07/2012 10/02/2013 Vulvitis 08/29/2012 06/13/2018 Iron deficiency anemia of 10/20/2011 02/18/2012 Overview: Start iron supplement Other and unspecified disc disorder of cervical region 08/05/2011 09/03/2011 Smoker 06/24/2010 06/24/2021 Bronchitis 06/24/2010 09/03/2011 Cervical lymphadenopathy 03/16/2010 012 Genital warts 12/02/2009 07/15/2011 Snoring 09/29/2009 07/15/2011 Overview: Sleep study completed 09/23/07 Benign neoplasm of skin of trunk, except scrotum 03/14/2009 10/06/2010 Unspecified disorder of skin and subcutaneous ti ssue 03/01/2009 07/15/2011 Other threatened labor, antepartum 11/19/2008 04/30/2009 Non-healing surgical wound 01/16/200804/30 documented as of this encounter (statuses as of 10/06/2022) [facility] History of Past illness Narrative* Problem Noted Date Resolved Date Contusion of right wrist 07/29/2015 016 Pain in left wrist 05/06/2015 02/17/2016 Pain in right wrist 05/06/2015 02/17/2016 Vaginitis and vulvovaginitis, unspecified 201206/13/2018 Vaginal discharge 12/07/2012 10/02/2013 Vulvitis 08/29/2012 06/13/2018 Iron deficiency anemia of 10/20/2011 02/18/2012 Overview: Start iron supplement Other and unspecified disc disorder of cervical region 08/05/2011 09/03/2011 Smoker 06/24/2010 06/24/2021 Bronchitis 06/24/2010 09/03/2011 Cervical lymphadenopathy 03/16/2010 012 Genital warts 12/02/2009 07/15/2011 Snoring 09/29/2009 07/15/2011 Overview: Sleep study completed 09/23/07 Benign neoplasm of skin of trunk, except scrotum 03/14/2009 10/06/2010 Unspecified disorder of skin and subcutaneous ti ssue 03/01/2009 07/15/2011 Other threatened labor, antepartum 11/19/2008 04/30/2009 Non-healing surgical wound 01/16/200804/30 documented as of this encounter (statuses as of 11/12/2022) [facility] History of Past illness Narrative* Problem Noted Date Diagnosed Date Resolved Date Contusion of right wrist 07/29/201503/2016 Pain in left wrist 05/06/2015 6 Pain in right wrist 05/06/2015 02/17/20 16 Vaginitis and vulvovaginitis, unspecified 04/26/2013 06/13/2018 Vaginal discharge 12/07/2012 10/02/2013 Vulvitis 08/29/2012 06/13/2018 Iron deficiency anemia of 10/20/2011 02/18/2012 Overview: Start iron supplement Other and unspecified disc d isorder of cervical region 08/05/2011 09/03/2011 Smoker 06/24/2010 06/24/2021 Bronchitis 06/24/2010 09/03/2011 Cervical lymphadenopathy 03/16/201012/2011 Genital warts 12/02/2009 07/15/2011 Snoring 09/29/2009 07/15/2011 Overview: Sleep study completed 09/23/07 Benign neoplasm of skin of t runk, except scrotum 03/14/2009 10/06/2010 Unspecified disorder of skin and subcutaneous tissue 03/01/2009 07/15/2011 Other threatened labor, antepartum 11/19/2008 04/30/2009 Non-healing surgical wound 01/16/2008 1 07/01/2008 documented as of this encounter (statuses as of 01/21/2023) [facility] History of Past illness Narrative* Problem Noted Date Diagnosed Date Resolved Date Contusion of right wrist 07/29/201503/2016 Pain in left wrist 05/06/2015 6 Pain in right wrist 05/06/2015 02/17/20 16 Vaginitis and vulvovaginitis, unspecified 04/26/2013 06/13/2018 Vaginal discharge 12/07/2012 10/02/2013 Vulvitis 08/29/2012 06/13/2018 Iron deficiency anemia of 10/20/2011 02/18/2012 Overview: Start iron supplement Other and unspecified disc d isorder of cervical region 08/05/2011 09/03/2011 Smoker 06/24/2010 06/24/2021 Bronchitis 06/24/2010 09/03/2011 Cervical lymphadenopathy 03/16/201012/2011 Genital warts 12/02/2009 07/15/2011 Snoring 09/29/2009 07/15/2011 Overview: Sleep study completed 09/23/07 Benign neoplasm of skin of t runk, except scrotum 03/14/2009 10/06/2010 Unspecified disorder of skin and subcutaneous tissue 03/01/2009 07/15/2011 Other threatened labor, antepartum 11/19/2008 04/30/2009 Non-healing surgical wound 01/16/2008 1 07/01/2008 documented as of this encounter (statuses as of 02/28/2023) [facility] History of Past illness Narrative* Problem Noted Date Diagnosed Date Resolved Date Contusion of right wrist 07/29/201503/2016 Pain in left wrist 05/06/2015 6 Pain in right wrist 05/06/2015 02/17/20 16 Vaginitis and vulvovaginitis, unspecified 04/26/2013 06/13/2018 Vaginal discharge 12/07/2012 10/02/2013 Vulvitis 08/29/2012 06/13/2018 Iron deficiency anemia of 10/20/2011 02/18/2012 Overview: Start iron supplement Other and unspecified disc d isorder of cervical region 08/05/2011 09/03/2011 Smoker 06/24/2010 06/24/2021 Bronchitis 06/24/2010 09/03/2011 Cervical lymphadenopathy 03/16/201012/2011 Genital warts 12/02/2009 07/15/2011 Snoring 09/29/2009 07/15/2011 Overview: Sleep study completed 09/23/07 Benign neoplasm of skin of t runk, except scrotum 03/14/2009 10/06/2010 Unspecified disorder of skin and subcutaneous tissue 03/01/2009 07/15/2011 Other threatened labor, antepartum 11/19/2008 04/30/2009 Non-healing surgical wound 01/16/2008 1 07/01/2008 documented as of this encounter (statuses as of 03/01/2023) [facility] History of Past illness Narrative* Problem Noted Date Diagnosed Date Resolved Date Contusion of right wrist 07/29/201503/2016 Pain in left wrist 05/06/2015 6 Pain in right wrist 05/06/2015 02/17/20 16 Vaginitis and vulvovaginitis, unspecified 04/26/2013 06/13/2018 Vaginal discharge 12/07/2012 10/02/2013 Vulvitis 08/29/2012 06/13/2018 Iron deficiency anemia of 10/20/2011 02/18/2012 Overview: Start iron supplement Other and unspecified disc d isorder of cervical region 08/05/2011 09/03/2011 Smoker 06/24/2010 06/24/2021 Bronchitis 06/24/2010 09/03/2011 Cervical lymphadenopathy 03/16/201012/2011 Genital warts 12/02/2009 07/15/2011 Snoring 09/29/2009 07/15/2011 Overview: Sleep study completed 09/23/07 Benign neoplasm of skin of t runk, except scrotum 03/14/2009 10/06/2010 Unspecified disorder of skin and subcutaneous tissue 03/01/2009 07/15/2011 Other threatened labor, antepartum 11/19/2008 04/30/2009 Non-healing surgical wound 01/16/2008 1 07/01/2008 documented as of this encounter (statuses as of 03/12/2023) [facility] History of Past illness Narrative* Problem Noted Date Diagnosed Date Resolved Date Contusion of right wrist 07/29/201503/2016 Pain in left wrist 05/06/2015 6 Pain in right wrist 05/06/2015 02/17/20 16 Vaginitis and vulvovaginitis, unspecified 04/26/2013 06/13/2018 Vaginal discharge 12/07/2012 10/02/2013 Vulvitis 08/29/2012 06/13/2018 Iron deficiency anemia of 10/20/2011 02/18/2012 Overview: Start iron supplement Other and unspecified disc d isorder of cervical region 08/05/2011 09/03/2011 Smoker 06/24/2010 06/24/2021 Bronchitis 06/24/2010 09/03/2011 Cervical lymphadenopathy 03/16/201012/2011 Genital warts 12/02/2009 07/15/2011 Snoring 09/29/2009 07/15/2011 Overview: Sleep study completed 09/23/07 Benign neoplasm of skin of t runk, except scrotum 03/14/2009 10/06/2010 Unspecified disorder of skin and subcutaneous tissue 03/01/2009 07/15/2011 Other threatened labor, antepartum 11/19/2008 04/30/2009 Non-healing surgical wound 01/16/2008 1 07/01/2008 documented as of this encounter (statuses as of 03/12/2023) [facility] History of Past illness Narrative* Problem Noted Date Diagnosed Date Resolved Date Contusion of right wrist 07/29/201503/2016 Pain in left wrist 05/06/2015 6 Pain in right wrist 05/06/2015 02/17/20 16 Vaginitis and vulvovaginitis, unspecified 04/26/2013 06/13/2018 Vaginal discharge 12/07/2012 10/02/2013 Vulvitis 08/29/2012 06/13/2018 Iron deficiency anemia of 10/20/2011 02/18/2012 Overview: Start iron supplement Other and unspecified disc d isorder of cervical region 08/05/2011 09/03/2011 Smoker 06/24/2010 06/24/2021 Bronchitis 06/24/2010 09/03/2011 Cervical lymphadenopathy 03/16/201012/2011 Genital warts 12/02/2009 07/15/2011 Snoring 09/29/2009 07/15/2011 Overview: Sleep study completed 09/23/07 Benign neoplasm of skin of t runk, except scrotum 03/14/2009 10/06/2010 Unspecified disorder of skin and subcutaneous tissue 03/01/2009 07/15/2011 Other threatened labor, antepartum 11/19/2008 04/30/2009 Non-healing surgical wound 01/16/2008 1 07/01/2008 documented as of this encounter (statuses as of 03/12/2023) [facility] History of Past illness Narrative* Problem Noted Date Diagnosed Date Resolved Date Contusion of right wrist 07/29/201503/2016 Pain in left wrist 05/06/2015 6 Pain in right wrist 05/06/2015 02/17/20 16 Vaginitis and vulvovaginitis, unspecified 04/26/2013 06/13/2018 Vaginal discharge 12/07/2012 10/02/2013 Vulvitis 08/29/2012 06/13/2018 Iron deficiency anemia of 10/20/2011 02/18/2012 Overview: Start iron supplement Other and unspecified disc d isorder of cervical region 08/05/2011 09/03/2011 Smoker 06/24/2010 06/24/2021 Bronchitis 06/24/2010 09/03/2011 Cervical lymphadenopathy 03/16/201012/2011 Genital warts 12/02/2009 07/15/2011 Snoring 09/29/2009 07/15/2011 Overview: Sleep study completed 09/23/07 Benign neoplasm of skin of t runk, except scrotum 03/14/2009 10/06/2010 Unspecified disorder of skin and subcutaneous tissue 03/01/2009 07/15/2011 Other threatened labor, antepartum 11/19/2008 04/30/2009 Non-healing surgical wound 01/16/2008 1 07/01/2008 documented as of this encounter (statuses as of 03/12/2023) [facility] History of Past illness Narrative* Problem Noted Date Diagnosed Date Resolved Date Contusion of right wrist 07/29/201503/2016 Pain in left wrist 05/06/2015 6 Pain in right wrist 05/06/2015 02/17/20 16 Vaginitis and vulvovaginitis, unspecified 04/26/2013 06/13/2018 Vaginal discharge 12/07/2012 10/02/2013 Vulvitis 08/29/2012 06/13/2018 Iron deficiency anemia of 10/20/2011 02/18/2012 Overview: Start iron supplement Other and unspecified disc d isorder of cervical region 08/05/2011 09/03/2011 Smoker 06/24/2010 06/24/2021 Bronchitis 06/24/2010 09/03/2011 Cervical lymphadenopathy 03/16/201012/2011 Genital warts 12/02/2009 07/15/2011 Snoring 09/29/2009 07/15/2011 Overview: Sleep study completed 09/23/07 Benign neoplasm of skin of t runk, except scrotum 03/14/2009 10/06/2010 Unspecified disorder of skin and subcutaneous tissue 03/01/2009 07/15/2011 Other threatened labor, antepartum 11/19/2008 04/30/2009 Non-healing surgical wound 01/16/2008 1 07/01/2008 documented as of this encounter (statuses as of 03/17/2023) [facility] History of Past illness Narrative* Problem Noted Date Diagnosed Date Resolved Date Contusion of right wrist 07/29/201503/2016 Pain in left wrist 05/06/2015 6 Pain in right wrist 05/06/2015 02/17/20 16 Vaginitis and vulvovaginitis, unspecified 04/26/2013 06/13/2018 Vaginal discharge 12/07/2012 10/02/2013 Vulvitis 08/29/2012 06/13/2018 Iron deficiency anemia of 10/20/2011 02/18/2012 Overview: Start iron supplement Other and unspecified disc d isorder of cervical region 08/05/2011 09/03/2011 Smoker 06/24/2010 06/24/2021 Bronchitis 06/24/2010 09/03/2011 Cervical lymphadenopathy 03/16/201012/2011 Genital warts 12/02/2009 07/15/2011 Snoring 09/29/2009 07/15/2011 Overview: Sleep study completed 09/23/07 Benign neoplasm of skin of t runk, except scrotum 03/14/2009 10/06/2010 Unspecified disorder of skin and subcutaneous tissue 03/01/2009 07/15/2011 Other threatened labor, antepartum 11/19/2008 04/30/2009 Non-healing surgical wound 01/16/2008 1 07/01/2008 documented as of this encounter (statuses as of 06/16/2023) [facility] History of Past illness Narrative* Problem Noted Date Diagnosed Date Resolved Date Contusion of right wrist 07/29/201503/2016 Pain in left wrist 05/06/2015 6 Pain in right wrist 05/06/2015 02/17/20 16 Vaginitis and vulvovaginitis, unspecified 04/26/2013 06/13/2018 Vaginal discharge 12/07/2012 10/02/2013 Vulvitis 08/29/2012 06/13/2018 Iron deficiency anemia of 10/20/2011 02/18/2012 Overview: Start iron supplement Other and unspecified disc d isorder of cervical region 08/05/2011 09/03/2011 Smoker 06/24/2010 06/24/2021 Bronchitis 06/24/2010 09/03/2011 Cervical lymphadenopathy 03/16/201012/2011 Genital warts 12/02/2009 07/15/2011 Snoring 09/29/2009 07/15/2011 Overview: Sleep study completed 09/23/07 Benign neoplasm of skin of t runk, except scrotum 03/14/2009 10/06/2010 Unspecified disorder of skin and subcutaneous tissue 03/01/2009 07/15/2011 Other threatened labor, antepartum 11/19/2008 04/30/2009 Non-healing surgical wound 01/16/2008 1 07/01/2008 documented as of this encounter (statuses as of 06/16/2023) [facility] History of Past illness Narrative* Problem Noted Date Diagnosed Date Resolved Date Contusion of right wrist 07/29/201503/2016 Pain in left wrist 05/06/2015 6 Pain in right wrist 05/06/2015 02/17/20 16 Vaginitis and vulvovaginitis, unspecified 04/26/2013 06/13/2018 Vaginal discharge 12/07/2012 10/02/2013 Vulvitis 08/29/2012 06/13/2018 Iron deficiency anemia of 10/20/2011 02/18/2012 Overview: Start iron supplement Other and unspecified disc d isorder of cervical region 08/05/2011 09/03/2011 Smoker 06/24/2010 06/24/2021 Bronchitis 06/24/2010 09/03/2011 Cervical lymphadenopathy 03/16/201012/2011 Genital warts 12/02/2009 07/15/2011 Snoring 09/29/2009 07/15/2011 Overview: Sleep study completed 09/23/07 Benign neoplasm of skin of t runk, except scrotum 03/14/2009 10/06/2010 Unspecified disorder of skin and subcutaneous tissue 03/01/2009 07/15/2011 Other threatened labor, antepartum 11/19/2008 04/30/2009 Non-healing surgical wound 01/16/2008 1 07/01/2008 documented as of this encounter (statuses as of 06/17/2023) [facility] History of Past illness Narrative* Problem Noted Date Diagnosed Date Resolved Date Contusion of right wrist 07/29/201503/2016 Pain in left wrist 05/06/2015 6 Pain in right wrist 05/06/2015 02/17/20 16 Vaginitis and vulvovaginitis, unspecified 04/26/2013 06/13/2018 Vaginal discharge 12/07/2012 10/02/2013 Vulvitis 08/29/2012 06/13/2018 Iron deficiency anemia of 10/20/2011 02/18/2012 Overview: Start iron supplement Other and unspecified disc d isorder of cervical region 08/05/2011 09/03/2011 Smoker 06/24/2010 06/24/2021 Bronchitis 06/24/2010 09/03/2011 Cervical lymphadenopathy 03/16/201012/2011 Genital warts 12/02/2009 07/15/2011 Snoring 09/29/2009 07/15/2011 Overview: Sleep study completed 09/23/07 Benign neoplasm of skin of t runk, except scrotum 03/14/2009 10/06/2010 Unspecified disorder of skin and subcutaneous tissue 03/01/2009 07/15/2011 Other threatened labor, antepartum 11/19/2008 04/30/2009 Non-healing surgical wound 01/16/2008 1 07/01/2008 documented as of this encounter (statuses as of 06/24/2023) [facility] Multiple joint complaints- Primary Unspecified joint disorder of multiple sites Chronic right shoulder pain Pain in joint, shoulder region Tendinitis of right shoulder Disorders of bursae and tendons in shoulder region, unspecified Impingement syndrome of right shoulder Other affections of shoulder region, not elsewhere classified [facility] this [facility] Diagnosis Pain, dental- Primary Unspecified disorder of the teeth and supporting structures [facility] Diagnosis Moderate persistent asthma, uncomplicated- Primary Unspecified asthma Essential hypertension Unspecified essential hypertension Hyperlipidemia, mixed Mixed hyperlipidemia Facial paresthesia Palpitations [facility] Diagnosis Bacterial sinusitis- Primary Unspecified sinusitis (chronic) [facility] Diagnosis Complex regional pain syndrome type 1 of right upper extremity- Primary Cervical disc displacement Displacement of cervical intervertebral disc without myelopathy Pain in joint of right shoulder Pain in joint, shoulder region Impingement syndrome of right shoulder Other affections of shoulder region, not elsewhere classified Multiple joint complaints Unspecified joint disorder of multiple sites Tendinitis of right shoulder Disorders of bursae and tendons in shoulder region, unspecified [facility] Diagnosis Alteration in vision- Primary Transient vision disturbance of right eye Unspecified visual disturbance Eyelid twitch Abnormal involuntary movements [facility] Diagnosis Elbow pain, left- Primary Pain in joint, upper arm [facility] Diagnosis Gastroesophageal reflux disease, unspecified whether esophagitis present Moderate persistent asthma, uncomplicated Unspecified asthma [facility]* Diagnosis Chest pain, unspecified type- Primary Facial paresthesia Intermittent tremor Abnormal involuntary movements Gastroesophageal reflux disease, unspecified whether esophagitis present Essential hypertension Unspecified essential hypertension Hyperlipidemia, mixed Mixed hyperlipidemia Molluscum contagiosum [facility]* Diagnosis Moderate persistent asthma with acute exacerbation Cough [facility]* Diagnosis Soft tissue mass- Primary Disorders of soft tissue, unspecified [facility]* Diagnosis Soft tissue mass- Primary Disorders of soft tissue, unspecified [facility] Diagnosis Acute pain of right shoulder- Primary Traumatic tear of right rotator cuff, unspecified tear extent, initial encounter [facility]* Diagnosis Facial paresthesia- Primary Trigeminal nerve disorder Trigeminal nerve disorder, unspecified Intermittent tremor Abnormal involuntary movements Twitch Abnormal involuntary movements Tic disorder Tic disorder, unspecified [facility]* Diagnosis Moderate persistent asthma, uncomplicated Unspecified asthma [facility]* Diagnosis Facial paresthesia- Primary Trigeminal nerve disorder Trigeminal nerve disorder, unspecified Twitch Abnormal involuntary movements Tic disorder Tic disorder, unspecified Intermittent tremor Abnormal involuntary movements [facility]* Diagnosis Arm swelling- Primary Swelling of limb Acute pain of right shoulder Traumatic tear of right rotator cuff, unspecified tear extent, initial encounter [facility] Diagnosis Essential hypertension- Primary Unspecified essential hypertension Hyperlipidemia, mixed Mixed hyperlipidemia Palpitations Gastroesophageal reflux disease, unspecified whether esophagitis present Post traumatic stress disorder (PTSD) Posttraumatic stress disorder [facility] Diagnosis Essential hypertension Unspecified essential hypertension Hyperlipidemia, mixed Mixed hyperlipidemia documented in this encounter [facility] note* Diagnosis Gastroesophageal reflux disease, unspecified whether esophagitis present documented in this encounter [facility] note* Diagnosis Moderate persistent asthma with acute exacerbation Cough documented in this encounter [facility] note* Diagnosis Arm swelling Swelling of limb documented in this encounter [facility] note* Diagnosis Moderate persistent asthma with acute exacerbation- Primary documented in this encounter [facility] note* Diagnosis Acute vaginitis- Primary Vaginitis and vulvovaginitis, unspecified Hemorrhoids, unspecified hemorrhoid type documented in this encounter [facility] for referral (narrative)* Diagnostic Procedure Only (Urgent) - Closed Specialty Diagnoses / Procedures Referred By Contac t Referred To Contact XR IMAGING Diagnoses Elbow pain, left Procedures XR ELBOW SPECIAL VIEWS AP/LAT/OTHER LEFT RADEX ELBOW COMPLETE MINIMUM 3 VIEWS Heber Lay MD [address] [place] [address] Xr Imaging Referral ID Status Reason Start Date Expiration Date V isits Requested Visits Authorized [id number] Closed Auto-Generate d Referral 12/04/2021 01/03/2023 1 1 [facility] for referral (narrative)* Outpatient Procedure (Routine) - Pending Review Specialty Diagnoses / Procedures Referred By Contac t Referred To Contact [facility] Diagnoses Twitch Tic disorder Procedures EPIL EEG ROUTINE ELECTROENCEPHALOGRAM REC COMA/SLEEP ONLY Norm Hernandez Jr., MD [address] [id number] [facility] [address] [place] [address] Referral ID Status Reason Start Date Expiration Date Visits Requested Visits Authorized [id number] Pending Review Auto-Generat ed Referral 2 05/07/2023 1 1 [facility] for referral (narrative)* Diagnostic Procedure Only (Routine) - Pending Review Specialty Diagnoses / Procedures Referred By Contac t Referred To Contact XR IMAGING Diagnoses Arm swelling Procedures XR CHEST 1V FRONTAL PORT RADIOLOGIC EXAM CHEST SINGLE VIEW Chela Sheridan, [address] [place] [address] Xr Imaging Referral ID Status Reason Start Date Expiration Date Visits Requested Visits Authorized [id number] Pending Review Auto-Generat ed Referral 06/18/2022 07/18/2023 1 1 * Diagnostic Procedure Only (Routine) - Pending Review Specialty Diagnoses / Procedures Referred By Contac t Referred To Contact US IMAGING Diagnoses Arm swelling Procedures US MUSCLE RT US LMTD JOINT/OTH NONVASC XTR STRUX R-T W/IMG Chela Sheridan DO [address] [place] [address] Us Imaging Referral ID Status Reason Start Date Expiration Date Visits Requested Visits Authorized [id number] Pending Review Auto-Generat ed Referral 06/18/2022 07/18/2023 [facility] Diagnostic Procedure Only (Routine) - Authorized Specialty Diagnoses / Procedures Referred By Contac t Referred To Contact XR IMAGING Diagnoses Arm swelling Procedures XR CHEST 1V FRONTAL PORT RADIOLOGIC EXAM CHEST SINGLE VIEW Chela Sheridan DO [facility] [place] [address] [place] [id number] Referral ID Status Reason Start Date Expiration Date Visits Requested Visits Authorized [id number] Authorized Auto-Generat ed Referral 06/18/2022 07/18/2023 [address] 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 Advance Directive(s) 12/31/2019 8:28 AM Advance Directive(s) 02/12/2014 7:36 AM Advance Directive(s) 02/12/2014 7:38 AM Documents on File Type Date Recorded 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 Advance Directive(s) 12/31/2019 8:28 AM Advance Directive(s) 02/12/2014 7:36 AM Advance Directive(s) 02/12/2014 7:38 AM Documents on File Type Date Recorded 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 Advance Directive(s) 02/12/2014 7:36 AM Advance Directive(s) 02/12/2014 7:38 AM Documents on File Type Date Recorded 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 Advance Directive(s) 02/12/2014 7:36 AM Advance Directive(s) 02/12/2014 7:38 AM Documents on File Type Date Recorded 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 Advance Directive(s) 02/12/2014 7:38 AM Advance Directive(s) 02/12/2014 7:36 AM Documents on File Type Date Recorded 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 Advance Directive(s) 02/12/2014 7:38 AM Advance Directive(s) 02/12/2014 7:36 AM Reason for Referral Specialty Diagnoses / Procedures Referred By Contac t Referred To Contact Rheumatology Diagnoses Multiple joint complaints Procedures CONSULT TO RHEUM/IMMUN DISEASE OFFICE/OUTPATIENT [facility] 60-74 MINUTES Chela Sheridan DO [address] [place] [address] Referral ID Status Reason Start Date Expiration Date Visits Requested Visits Authorized [id number] Authorized PCP Requested Referral 07/31/2021 07/31/2022 1 1 Specialty Diagnoses / Procedures Referred By Contac t Referred To Contact Neurology Diagnoses Facial paresthesia Intermittent tremor Procedures CONSULT TO NEUROLOGY OFFICE/OUTPATIENT [facility] 60-74 MINUTES Briana Leggett APRN.COURT OPERATIONS CLERK [address] [place] [address] Referral ID Status Reason Start Date Expiration Date Visits Requested Visits Authorized [id number] Authorized PCP Requested Referral 01/18/2022 01/18/2023 1 1 Specialty Diagnoses / Procedures Referred By Contac t Referred To Contact [facility] Diagnoses Chest pain, unspecified type Procedures ECG COMPLETE ECG ROUTINE ECG W/LEAST 12 LDS W/I&R Briana Leggett, OIL WELL DRILLING MANAGER.COURT OPERATIONS CLERK [address] [place] [address] [facility] [address] [place] [address] Referral ID Status Reason Start Date Expiration Date Visits Requested Visits Authorized [id number] Authorized Auto-Generat ed Referral 01/18/2022 01/18/2023 1 1 Specialty Diagnoses / Procedures Referred By Contac t Referred To Contact Diagnoses Moderate persistent asthma with acute exacerbation Cough Briana Leggett, OIL WELL DRILLING MANAGER.COURT OPERATIONS CLERK [address] [place] [address] Referral ID Status Reason Start Date Expiration Date Visits Re quested Visits Authorized [id number] Closed 1 1 Specialty Diagnoses / Procedures Referred By Contac t Referred To Contact CT IMAGING Diagnoses Soft tissue mass Procedures CT PELVIS W IVCON CT PELVIS W/CONTRAST MATERIAL Zayra Becker MD [address] [place] [address] Ct Imaging Referral ID Status Reason Start Date Expiration Date Visits Requested Visits Authorized [id number] Authorized Auto-Generat ed Referral 03/12/2022 05/11/2022 1 1 Specialty Diagnoses / Procedures Referred By Contac t Referred To Contact General Surgery Diagnoses Soft tissue mass Procedures CONSULT TO GENERAL SURGERY OFFICE/OUTPATIENT [facility] HIGH MDM 60-74 MINUTES Zayra Becker MD [address] [place] [address] Referral ID Status Reason Start Date Expiration Date Visits Requested Visits Authorized [id number] Authorized PCP Requested Referral 03/18/2023 1 1 Specialty Diagnoses / Procedures Referred By Contac t Referred To Contact MR IMAGING Diagnoses Acute pain of right shoulder Traumatic tear of right rotator cuff, unspecified tear extent, initial encounter Procedures MRI SHOULDER WO IVCON RT MRI ANY JT UPPER EXTREMITY W/O CONTRAST Mitchel Saleh MD [address] [facility] [place] [address] Mr Imaging Referral ID Status Reason Start Date Expiration Date Visits Requested Visits Authorized [id number] Additional Clinical Info Needed Auto-Generat ed Referral 04/12/2022 05/12/2023 1 1 Referral ID Status Reason Start Date Expiration Date Visits Re quested Visits Authorized [id number] Closed 1 1 Specialty Diagnoses / Procedures Referred By Rodolfo witt Referred To Contact Gastroenterology Diagnoses Hemorrhoids, unspecified hemorrhoid type Procedures CONSULT TO GASTROENTEROLOGY OFFICE/OUTPATIENT [facility] 60 MINUTES Adele Costa APRN.COURT OPERATIONS CLERK [address] [place] [address] Referral ID Status Reason Start Date Expiration Date Visits Requested Visits Authorized [id number] Authorized PCP Requested Referral 06/16/2023 06/15/2024 1 1 Medications Administered Section Inactive Administered Medications - up to 3 most recent administrations Medication Order MAR Action Action Date Dose Rate Site betamethasone acetate-betamethasone sodium phosphate 6 mg injection (CELESTONE) 6 mg, Injection - FOR ORTHO USE ONLY, ONE TIME INJECTION, 1 dose, Starting on Tue07/31/21 at 1930, Until Tue07/31/21 at 193 Given 07/31/2021 7:30 PM EDT 6 mg ropivacaine (PF) 5 mg/mL (0.5 %) 8 mL injection (NAROPIN) 8 mL, Injection - FOR ORTHO USE ONLY, ONE TIME INJECTION, 1 dose, Starting on Tue07/31/21 at 1930, Until Tue07/31/21 at 1930 Given 07/31/2021 7:30 PM EDT 8 mL triamcinolone acetonide 80 mg injection (KENALOG 40) 80 mg, Injection - FOR ORTHO USE ONLY, ONE TIME INJECTION, 1 dose, Starting on Tue07/31/21 at 1930, Until Tue07/31/21 at 1930 Given 07/31/2021 7:30 PM EDT 80 mg Active Administered Medications - up to 3 most recent administrations Medication Order MAR Action Action Date Dose Rate Site fluorescein-benoxinate 0.25-0.4 % 1 Drop (FLURESS) 1 Drop, BOTH EYES, DIRECTED, Starting on Tue12/02/21 at 0930, Until Tue12/02/21 at 2129, Administer for applanation tonometry. In the event of a Fluress shortage, administer Bethany-Fluor 1 drop into both eyes as directed for applanation tonometry Given 12/02/2021 9:04 AM EDT 1 Drop PHENYLephrine 2.5 % 1 Drop (AK-DILATE, SALBADOR-SYNEPHRINE) 1 Drop, BOTH EYES, DIRECTED, Starting on Tue12/02/21 at 0930, Until Tue12/02/21 at 2128, Administer for dilation PROTECT FROM LIGHT Given 12/02/2021 9:04 AM EDT 1 Drop proparacaine 0.5 % 1 Drop (ALCAINE) 1 Drop, BOTH EYES, DIRECTED, Starting on Tue12/02/21 at 0930, Until Tue12/02/21 at 2128, Administer for pneumo tonometry, tonopen tonometry, or pachymetry. In the event of a proparacaine shortage, administer tetracaine 0.5% ophthalmic drops 1 drop in the left eye as directed for pneumo tonometry, tonopen tonometry, or pachymetry Given 12/02/2021 9:04 AM EDT 1 Drop tropicamide 1 % 1 Drop (MYDRIACYL) 1 Drop, BOTH EYES, DIRECTED, Starting on Tue12/02/21 at 0930, Until Tue12/02/21 at 2128, Administer for dilation Given 12/02/2021 9:04 AM EDT 1 Drop Additional Source Comments INFORMATION SOURCE (unrecogn ized section and content) DATE CREATED AUTHOR AUTHOR'S ORGANIZ ATION 11/29/2019 [facility] DATE CREATED AUTHOR AUTHOR'S ORGANIZ ATION 01/15/2020 [facility] DATE CREATED AUTHOR AUTHOR'S ORGANIZ ATION 07/11/2020 [facility] DATE CREATED AUTHOR AUTHOR'S ORGANIZ ATION 12/24/2022 [facility] DATE CREATED AUTHOR AUTHOR'S ORGANIZ ATION 06/26/2023 [facility] Source Comments (unrecognize d section and content) In the event this informatio n is protected by the Federal Confidentiality of Alcohol and Drug Abuse Patient Records regulations: The Federal rules restrict any use of the information to criminally investigate or prosecute any alcohol or drug abuse patient.[facility] the event this information is protected by the Federal Confidentiality of Alcohol and Drug Abuse Patient Records regulations: The Federal rules restrict any use of the information to criminally investigate or prosecute any alcohol or drug abuse patient.[facility] the event this information is protected by the Federal Confidentiality of Alcohol and Drug Abuse Patient Records regulations: The Federal rules restrict any use of the information to criminally investigate or prosecute any alcohol or drug abuse patient.[facility] the event this information is protected by the Federal Confidentiality of Alcohol and Drug Abuse Patient Records regulations: The Federal rules restrict any use of the information to criminally investigate or prosecute any alcohol or drug abuse patient.[facility] the event this information is protected by the Federal Confidentiality of Alcohol and Drug Abuse Patient Records regulations: The Federal rules restrict any use of the information to criminally investigate or prosecute any alcohol or drug abuse patient.[facility] CenterIn the event this information is protected by the Federal Confidentiality of Alcohol and Drug Abuse Patient Records regulations: The Federal rules restrict any use of the information to criminally investigate or prosecute any alcohol or drug abuse patient.[facility] CenterIn the event this information is protected by the Federal Confidentiality of Alcohol and Drug Abuse Patient Records regulations: The Federal rules restrict any use of the information to criminally investigate or prosecute any alcohol or drug abuse patient.[facility] CenterIn the event this information is protected by the Federal Confidentiality of Alcohol and Drug Abuse Patient Records regulations: The Federal rules restrict any use of the information to criminally investigate or prosecute any alcohol or drug abuse patient.[facility] CenterIn the event this information is protected by the Federal Confidentiality of Alcohol and Drug Abuse Patient Records regulations: The Federal rules restrict any use of the information to criminally investigate or prosecute any alcohol or drug abuse patient.[facility] CenterIn the event this information is protected by the Federal Confidentiality of Alcohol and Drug Abuse Patient Records regulations: The Federal rules restrict any use of the information to criminally investigate or prosecute any alcohol or drug abuse patient.[facility] CenterIn the event this information is protected by the Federal Confidentiality of Alcohol and Drug Abuse Patient Records regulations: The Federal rules restrict any use of the information to criminally investigate or prosecute any alcohol or drug abuse patient.[facility] CenterIn the event this information is protected by the Federal Confidentiality of Alcohol and Drug Abuse Patient Records regulations: The Federal rules restrict any use of the information to criminally investigate or prosecute any alcohol or drug abuse patient.[facility] CenterIn the event this information is protected by the Federal Confidentiality of Alcohol and Drug Abuse Patient Records regulations: The Federal rules restrict any use of the information to criminally investigate or prosecute any alcohol or drug abuse patient.[facility] CenterIn the event this information is protected by the Federal Confidentiality of Alcohol and Drug Abuse Patient Records regulations: The Federal rules restrict any use of the information to criminally investigate or prosecute any alcohol or drug abuse patient.[facility] CenterIn the event this information is protected by the Federal Confidentiality of Alcohol and Drug Abuse Patient Records regulations: The Federal rules restrict any use of the information to criminally investigate or prosecute any alcohol or drug abuse patient.[facility] CenterIn the event this information is protected by the Federal Confidentiality of Alcohol and Drug Abuse Patient Records regulations: The Federal rules restrict any use of the information to criminally investigate or prosecute any alcohol or drug abuse patient.[facility] CenterIn the event this information is protected by the Federal Confidentiality of Alcohol and Drug Abuse Patient Records regulations: The Federal rules restrict any use of the information to criminally investigate or prosecute any alcohol or drug abuse patient.[facility] CenterIn the event this information is protected by the Federal Confidentiality of Alcohol and Drug Abuse Patient Records regulations: The Federal rules restrict any use of the information to criminally investigate or prosecute any alcohol or drug abuse patient.[facility] CenterIn the event this information is protected by the Federal Confidentiality of Alcohol and Drug Abuse Patient Records regulations: The Federal rules restrict any use of the information to criminally investigate or prosecute any alcohol or drug abuse patient.[facility] CenterIn the event this information is protected by the Federal Confidentiality of Alcohol and Drug Abuse Patient Records regulations: The Federal rules restrict any use of the information to criminally investigate or prosecute any alcohol or drug abuse patient.[facility] CenterIn the event this information is protected by the Federal Confidentiality of Alcohol and Drug Abuse Patient Records regulations: The Federal rules restrict any use of the information to criminally investigate or prosecute any alcohol or drug abuse patient.[facility] CenterIn the event this information is protected by the Federal Confidentiality of Alcohol and Drug Abuse Patient Records regulations: The Federal rules restrict any use of the information to criminally investigate or prosecute any alcohol or drug abuse patient.[facility] CenterIn the event this information is protected by the Federal Confidentiality of Alcohol and Drug Abuse Patient Records regulations: The Federal rules restrict any use of the information to criminally investigate or prosecute any alcohol or drug abuse patient.[facility] CenterIn the event this information is protected by the Federal Confidentiality of Alcohol and Drug Abuse Patient Records regulations: The Federal rules restrict any use of the information to criminally investigate or prosecute any alcohol or drug abuse patient.[facility] CenterIn the event this information is protected by the Federal Confidentiality of Alcohol and Drug Abuse Patient Records regulations: The Federal rules restrict any use of the information to criminally investigate or prosecute any alcohol or drug abuse patient.[facility] CenterIn the event this information is protected by the Federal Confidentiality of Alcohol and Drug Abuse Patient Records regulations: The Federal rules restrict any use of the information to criminally investigate or prosecute any alcohol or drug abuse patient.[facility] CenterIn the event this information is protected by the Federal Confidentiality of Alcohol and Drug Abuse Patient Records regulations: The Federal rules restrict any use of the information to criminally investigate or prosecute any alcohol or drug abuse patient.[facility] CenterIn the event this information is protected by the Federal Confidentiality of Alcohol and Drug Abuse Patient Records regulations: The Federal rules restrict any use of the information to criminally investigate or prosecute any alcohol or drug abuse patient.[facility] CenterIn the event this information is protected by the Federal Confidentiality of Alcohol and Drug Abuse Patient Records regulations: The Federal rules restrict any use of the information to criminally investigate or prosecute any alcohol or drug abuse patient.[facility] CenterIn the event this information is protected by the Federal Confidentiality of Alcohol and Drug Abuse Patient Records regulations: The Federal rules restrict any use of the information to criminally investigate or prosecute any alcohol or drug abuse patient.[facility] CenterIn the event this information is protected by the Federal Confidentiality of Alcohol and Drug Abuse Patient Records regulations: The Federal rules restrict any use of the information to criminally investigate or prosecute any alcohol or drug abuse patient.[facility] CenterIn the event this information is protected by the Federal Confidentiality of Alcohol and Drug Abuse Patient Records regulations: The Federal rules restrict any use of the information to criminally investigate or prosecute any alcohol or drug abuse patient.[facility] CenterIn the event this information is protected by the Federal Confidentiality of Alcohol and Drug Abuse Patient Records regulations: The Federal rules restrict any use of the information to criminally investigate or prosecute any alcohol or drug abuse patient.[facility] CenterIn the event this information is protected by the Federal Confidentiality of Alcohol and Drug Abuse Patient Records regulations: The Federal rules restrict any use of the information to criminally investigate or prosecute any alcohol or drug abuse patient.[facility] CenterIn the event this information is protected by the Federal Confidentiality of Alcohol and Drug Abuse Patient Records regulations: The Federal rules restrict any use of the information to criminally investigate or prosecute any alcohol or drug abuse patient.[facility] CenterIn the event this information is protected by the Federal Confidentiality of Alcohol and Drug Abuse Patient Records regulations: The Federal rules restrict any use of the information to criminally investigate or prosecute any alcohol or drug abuse patient.[facility] CenterIn the event this information is protected by the Federal Confidentiality of Alcohol and Drug Abuse Patient Records regulations: The Federal rules restrict any use of the information to criminally investigate or prosecute any alcohol or drug abuse patient.[facility] CenterIn the event this information is protected by the Federal Confidentiality of Alcohol and Drug Abuse Patient Records regulations: The Federal rules restrict any use of the information to criminally investigate or prosecute any alcohol or drug abuse patient.[facility] CenterIn the event this information is protected by the Federal Confidentiality of Alcohol and Drug Abuse Patient Records regulations: The Federal rules restrict any use of the information to criminally investigate or prosecute any alcohol or drug abuse patient.[facility] CenterIn the event this information is protected by the Federal Confidentiality of Alcohol and Drug Abuse Patient Records regulations: The Federal rules restrict any use of the information to criminally investigate or prosecute any alcohol or drug abuse patient.[facility] CenterIn the event this information is protected by the Federal Confidentiality of Alcohol and Drug Abuse Patient Records regulations: The Federal rules restrict any use of the information to criminally investigate or prosecute any alcohol or drug abuse patient.[facility] CenterIn the event this information is protected by the Federal Confidentiality of Alcohol and Drug Abuse Patient Records regulations: The Federal rules restrict any use of the information to criminally investigate or prosecute any alcohol or drug abuse patient.[facility] Reason for Visit (unrecogniz ed section and content) Reason Comments Toothache tooth;a;kelvin off and on for a long time Reason Comments Recheck 3 month follow up Reason Comments Sinus Problem pressure, drainage, headache x 1 week Reason Comments Follow Up Pain Reason Comments Patient Question Reason Comments 5 month F/u Transient vision disturbance Right eye Reason Comments Pain (Elbow Pain) L elbow pain radiati ng to L wrist x4 days Reason Onset Date Comments Refill Request 12/18/2021 Reason Comments Recheck 3 month follow up Reason Comments Vaginal Problem Reason Comments Orders Reason Onset Date Comments Refill Request 04/07/2022 Reason Comments New Pain Reason Comments New Patient Seeking second opini on; Facial paresthesia, intermittent tremor Specialty Diagnoses / Procedures Referred By Contac t Referred To Contact Neurology Diagnoses Facial paresthesia Intermittent tremor Procedures CONSULT TO NEUROLOGY OFFICE/OUTPATIENT NEW HIGH MDM 60-74 MINUTES Older, 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 [address] [place] [address] Referral ID Status Reason Start Date Expiration Date V isits Requested Visits Authorized [id number] Closed PCP Requested Referral 01/18/2022 01/18/2023 1 1 Reason Onset Date Comments Refill Request 05/27/2022 Reason Comments disk and report Reason Comments Pain (Shoulder Pain) Reason Comments Established Patient Reason Comments Established Patient Reason Comments Appointment Reason Comments Recheck 6 month follow up Reason Onset Date Comments Refill Request 10/03/2022 Reason Onset Date Comments Refill Request 11/11/2022 Reason Comments Refill Request Reason Onset Date Comments Refill Request 02/28/2023 Reason Comments Results Specialty Diagnoses / Procedures [facility] To Contact CT IMAGING Diagnoses Soft tissue mass Procedures CT PELVIS W IVCON CT PELVIS W/CONTRAST MATERIAL Zayra Becker MD [address] [place] [address] Ct Imaging [facility] Referral ID Status Reason Start Date Expiration Date V isits Requested Visits Authorized [id number] Closed Auto-Generate d Referral 03/12/2022 05/11/2022 1 1 Specialty Diagnoses / Procedures [facility] Referred To Contact MR IMAGING Diagnoses Acute pain of right shoulder Traumatic tear of right rotator cuff, unspecified tear extent, initial encounter Procedures MRI SHOULDER WO IVCON RT MRI ANY JT UPPER EXTREMITY W/O CONTRAST MATRL Mitchel Staton MD [address] [facility] [address] [place] [address] Referral ID Status Reason Start Date Expiration Date V isits Requested Visits Authorized [id number] Closed Auto-Generate d Referral 04/15/2022 06/14/2022 1 1 Reason Comments Insurance Authorization Reason Comments Patient Question BV Reason Comments Vaginal Discharge Reason Comments Vaginal Problem Care Teams (unrecognized sec tion and content) Street Photographer Relationship Specialty Start Date End Date Koki Worthington MD [address] [place] [address] PCP - General Internal Medicine 09/09/[address] [place] [place] [address] Specialty Ground [employer] 07/06/[address] [place] [place] [address] Specialty Ground Crewman [employer] 07/09/20 [address] Photographer Relationship Specialty Start Date End Date Koki Worthington MD [address] [place] [address] PCP - General Internal Medicine 09/09/[address] [place] [place] [place] [address] Specialty Ground [employer]man [employer] 07/06/[address] [place] [place] [address] Specialty Ground Crewman [employer] 07/09/20 [address] Photographer Relationship Specialty Start Date End Date Koki Worthington MD [address] [place] [address] PCP - General Internal Medicine 09/09/[address] [place] [place] [address] Specialty Ground [employer]man [employer] 07/06/[address] [place] [place] [address] Specialty Ground Crewman [employer] 07/09/20 [address] Photographer Relationship Specialty Start Date End Date Koki Worthington MD [address] [place] [address] PCP - General Internal Medicine 09/09/17 Andrez Ballesteros [address] [place] [place] [address] Specialty Ground [employer]man [employer] 07/06/[address] [place] [place] [address] Specialty Ground Crewman [employer] 07/09/20 [address] Photographer Relationship Specialty Start Date End Date Koki Worthington MD [address] [place] [address] PCP - General Internal Medicine 09/09/17 Andrez Ballesteros [address] [place] [place] [place] [address] Specialty Ground [employer]man [employer] 07/06/[address] [place] [place] [address] Specialty Ground Crewman [employer] 07/09/20 [address] Photographer Relationship Specialty Start Date End Date Koki Worthington MD [address] [place] [address] PCP - General Internal Medicine 09/09/[address] [place] [place] [place] [address] Specialty Ground [employer]man [employer] 07/06/[address] [place] [address] [place] [address] Specialty Ground Crewman [employer] 07/09/20 [address] Photographer Relationship Specialty Start Date End Date Koki Worthington MD [address] [place] [address] PCP - General Internal Medicine 09/09/17 Andrez Ballesteros [address] [place] [address] [place] [address] Specialty Ground [employer]man [employer] 07/06/[address] [place] [place] [address] Specialty Ground Crewman [employer] 07/09/20 [address] Photographer Relationship Specialty Start Date End Date Koki Worthington MD [address] [place] [address] PCP - General Internal Medicine 09/09/[address] [place] [place] [address] Specialty Ground Crewman [employer] 07/06/[address] [place] [place] [address] Specialty Ground Crewman [employer] 07/09/20 [address] Photographer Relationship Specialty Start Date End Date Koki Worthington MD [address] [place] [address] PCP - General Internal Medicine 09/09/17 Andrez Ballesteros [address] [place] [address] [place] [address] Specialty Ground [employer]man [employer] 07/06/[address] [place] [address] [address] Specialty Ground Crewman [employer] 07/09/20 [address] Photographer Relationship Specialty Start Date End Date Koki Worthington MD [address] [place] [address] PCP - General Internal Medicine 09/09/[address] [place] [address] [place] [address] Specialty Ground Crewman [employer] 07/06/[address] [place] [address] [place] [address] Specialty Ground Crewman [employer] 07/09/20 Street Photographer Relationship Specialty Start Date End Date Koki Worthington MD [address] [place] [address] PCP - General Internal Medicine 09/09/17 Andrez Ballesteros [address] [place] [address] [address] Specialty Ground Crewman [employer] 07/06/[address] [place] [address] [address] Specialty Ground Crewman [employer] 07/09/20 [address] Photographer Relationship Specialty Start Date End Date Koki Worthington MD [address] [place] [address] PCP - General Internal Medicine 09/09/17 Andrez Ballesteros [address] [place] [address] [address] Specialty Ground Crewman [employer] 07/06/[address] [place] [address] [address] Specialty Ground Crewman [employer] 07/09/20 Street Photographer Relationship Specialty Start Date End Date Koki Worthington MD [address] [place] [address] PCP - General Internal Medicine 09/09/17 Andrez Ballesteros [address] [place] [address] [place] [address] Specialty Ground [employer]man [employer] 07/06/[address] [place] [address] [address] Specialty Ground Crewman [employer] 07/09/20 [address] Photographer Relationship Specialty Start Date End Date Koki Worthington MD [address] [place] [address] PCP - General Internal Medicine 09/09/17 Andrez Ballesteros [address] [place] [address] [address] Specialty Ground Crewman [employer] 07/06/[address] [place] [address] [address] Specialty Ground Crewman [employer] 07/09/20 [address] Photographer Relationship Specialty Start Date End Date Koki Worthington MD [address] [place] [address] PCP - General Internal Medicine 09/09/17 Andrez Ballesteros [address] [place] [address] [address] Specialty Ground [employer]man [employer] 07/06/[address] [place] [address] [address] Specialty Ground Crewman [employer] 07/09/20 [address] Photographer Relationship Specialty Start Date End Date Koki Worthington MD [address] [place] [address] PCP - General Internal Medicine 09/09/17 Andrez Ballesteros [address] [place] [address] [address] Specialty Ground [employer]man [employer] 07/06/[address] [place] [address] [address] Specialty Ground Crewman [employer] 07/09/20 Street Photographer Relationship Specialty Start Date End Date Koki Worthington MD [address] [place] [address] PCP - General Internal Medicine 09/09/17 Andrez Ballesteros [address] [place] [address] Specialty Ground [employer]man [employer] 07/06/[address] [place] [address] [address] Specialty Ground Crewman [employer] 07/09/20 Street Photographer Relationship Specialty Start Date End Date Koki Worthington MD [address] [place] [address] PCP - General Internal Medicine 09/09/17 Andrez Ballesteros [address] [place] [address] [address] Specialty Ground [employer]man [employer] 07/06/20 Paul Adore [place] [address] [address] [place] [address] Specialty Ground Crewman [employer] 07/09/20 [address] Photographer Relationship Specialty Start Date End Date Koki Worthington MD [address] [place] [address] PCP - General Internal Medicine 09/09/17 Andrez Ballesteros [address] [place] [address] Specialty Ground [employer]man [employer] 07/06/[address] [place] [address] [address] Specialty Ground Crewman [employer] 07/09/20 [address] Photographer Relationship Specialty Start Date End Date Koki Worthington MD [address] [place] [address] PCP - General Internal Medicine 09/09/17 Andrez Ballesteros [address] [place] [address] [address] Specialty Ground [employer]man [employer] 07/06/20 Adore Miller [address] [place] [address] [address] Specialty Ground Crewman [employer] 07/09/20 [address] Photographer Relationship Specialty Start Date End Date Koki Worthington MD [address] [place] [address] PCP - General Internal Medicine 09/09/17 Andrez Ballesteros [address] [place] [address] [address] Specialty Ground [employer]man [employer] 07/06/20 Adore Miller [address] [place] [address] [address] Specialty Ground Crewman [employer] 07/09/20 [address] Photographer Relationship Specialty Start Date End Date Koki Worthington MD [address] [place] [address] PCP - General Internal Medicine 09/09/17 Andrez Ballesteros [address] [place] [address] [address] Specialty Ground Crewman [employer] 07/06/20 Adore Miller [address] [place] [address] [address] Specialty Ground Crewman [employer] 07/09/20 [address] Photographer Relationship Specialty Start Date End Date Koki Worthington MD [address] [place] [address] PCP - General Internal Medicine 09/09/17 Andrez Ballesteros [address] [place] [address] [address] Specialty Ground [employer]man [employer] 07/06/20 Adore Miller [address] [place] [address] Specialty Ground Crewman [employer] 07/09/20 [address] Photographer Relationship Specialty Start Date End Date Koki Worthington MD [address] [place] [address] PCP - General Internal Medicine 09/09/17 Andrez Ballesteros [address] [place] [place] [address] Specialty Ground [employer]man [employer] 07/06/20 Adore Miller [address] [place] [place] [address] Specialty Ground Crewman [employer] 07/09/20 [address] Photographer Relationship Specialty Start Date End Date Koki Worthington MD [address] [place] [address] PCP - General Internal Medicine 09/09/17 Andrez Ballesteros [address] [place] [address] Specialty Ground [employer]man [employer] 07/06/20 Adore Miller [address] [place] [place] [address] Specialty Ground Crewman [employer] 07/09/20 [address] Photographer Relationship Specialty Start Date End Date Koki Worthington MD [address] [place] [address] PCP - General Internal Medicine 09/09/17 Andrez Ballesteros [address] [place] [address] [place] [address] Specialty Ground [employer]man [employer] 07/06/20 Adore Miller [address] [place] [address] [employer]ty [employer] 07/09/20 Street Photographer Relationship Specialty Start Date End Date Koki Worthington MD [address] [place] [address] PCP - General Internal Medicine 09/09/17 Andrez Ballesteros MD [address] [place] [address] Specialty [employer] 07/06/20 Adore Miller [address] [place] [address] Specialty [employer] 07/09/20 [address] Photographer Relationship Specialty Start Date End Date Koki Worthington MD [address] [place] [address] PCP - General Internal Medicine 09/09/17 Anrdez Ballesteros MD [address] [place] [address] Specialty [employer] 07/06/20 Adore Miller [address] [place] [address] Specialty [employer] 07/09/20 [address] Photographer Relationship Specialty Start Date End Date Koki Worthington MD [address] [place] [address] PCP - General Internal Medicine 09/09/17 Andrez Ballesteros MD [address] [place] [address] [employer]ty [employer] 07/06/20 Adore Miller [address] [place] [address] [employer]ty [employer] 07/09/20 [address] Photographer Relationship Specialty Start Date End Date Koki Worthington MD [facility] [place] [address] PCP - General Internal Medicine 09/09/17 Andrez Ballesteros MD [address] [place] [address] Specialty [employer] 07/06/20 Adore Miller APRN.CNP [address] [place] [place], [place] [id number] 230- [employer]ty [employer] 07/09/20 FOR RECORDS PERTAINING TO PATIENTS WHO ARE OR HAVE BEEN ENROLLED IN A CHEMICAL DEPENDENCY/SUBSTANCEABUSE PROGRAM, SOME INFORMATION MAY BE OMITTED. This clinical summary was aggregated from multiple sources. Caution should be exercised in using it in the provision of clinical care. This summary normalizes information from multiple sources, and as a consequence, information in this document may materially change the coding, format and clinical context of patient data. In addition, data may be omitted in some cases. CLINICAL DECISIONS SHOULD BE BASED ON THE PRIMARY CLINICAL RECORDS. [facility]. provides no warranty or guarantee of the accuracy or completeness of information in this document.
[2023-07-01 07:54] LABS: AST(SGOT) 15 U/L (15-37); Alanine Aminotransfer ALT/SGPT 18 U/L (13-56); Albumin, Serum 3.5 g/dL (3.2-5.0); Alkaline Phosphatase 73 U/L (45-117); Cholesterol 165 mg/dL (200); Globulin 3.7 g/dL (2.2-4.2); High Density Lipoprotein 36 mg/dL; Protein, Total 7.2 g/dL (6.4-8.2); Triglycerides 120 mg/dL; Very Low Density Lipoprotein 24 mg/dL (5-40)
== END | disposition home or self-care (01) ==
PROVIDERS: PCP Internal Medicine; Referring Provider Nurse Practitioner Family; Visit Provider Nurse Practitioner Family
DX: E78.00 Pure hypercholesterolemia, unspecified (principal)
CPT/HCPCS: 36415; 80061; 80076

== ENCOUNTER 2023-07-21 07:20 | Outpatient (RCR) | payer MEDICAID, SELFPAY | END 2023-08-07 23:59 | LOC: NS 07:20 | PROVIDERS: PCP Internal Medicine; Referring Provider Nurse Practitioner Family; Visit Provider Nurse Practitioner Family | DX: Z71.3 Dietary counseling and surveillance (principal); E66.01 Morbid (severe) obesity due to excess calories | CPT/HCPCS: 97803 ==

== ENCOUNTER 2023-08-18 07:27 | Outpatient (RCR) | payer MEDICAID, SELFPAY | END 2023-09-06 23:59 | LOC: NS 07:27 | PROVIDERS: PCP Internal Medicine; Referring Provider Nurse Practitioner Family; Visit Provider Nurse Practitioner Family | DX: Z71.3 Dietary counseling and surveillance (principal); E66.01 Morbid (severe) obesity due to excess calories; Z68.37 Body mass index [BMI] 37.0-37.9, adult | CPT/HCPCS: 97803 ==

== ENCOUNTER 2023-10-12 07:47 | Outpatient (RCR) | payer MEDICAID, SELFPAY | END 2023-11-06 23:59 | LOC: NS 07:47 | PROVIDERS: PCP Internal Medicine; Referring Provider Nurse Practitioner Family; Visit Provider Nurse Practitioner Family | DX: Z71.3 Dietary counseling and surveillance (principal); E66.01 Morbid (severe) obesity due to excess calories | CPT/HCPCS: 97803 ==

== ENCOUNTER 2023-11-17 07:17 | Outpatient (RCR) | payer MEDICAID, SELFPAY | END 2023-12-07 23:59 | LOC: NS 07:17 | PROVIDERS: PCP Internal Medicine; Referring Provider Nurse Practitioner Family; Visit Provider Nurse Practitioner Family | DX: Z71.3 Dietary counseling and surveillance (principal); E66.01 Morbid (severe) obesity due to excess calories; Z68.36 Body mass index [BMI] 36.0-36.9, adult | CPT/HCPCS: 97803 ==

== ENCOUNTER 2023-12-19 07:50 | Outpatient (RCR) | payer MEDICAID, SELFPAY | END 2024-01-07 23:59 | LOC: NS 07:50 | PROVIDERS: PCP Internal Medicine; Referring Provider Nurse Practitioner Family; Visit Provider Nurse Practitioner Family | DX: Z71.3 Dietary counseling and surveillance (principal); E66.01 Morbid (severe) obesity due to excess calories; Z68.36 Body mass index [BMI] 36.0-36.9, adult | CPT/HCPCS: 97803 ==

== ENCOUNTER 2024-01-19 07:32 | Outpatient (RCR) | payer MEDICAID, SELFPAY | END 2024-02-06 23:59 | LOC: NS 07:32 | PROVIDERS: PCP Internal Medicine; Referring Provider Nurse Practitioner Family; Visit Provider Nurse Practitioner Family | DX: Z71.3 Dietary counseling and surveillance (principal); E66.01 Morbid (severe) obesity due to excess calories; Z68.35 Body mass index [BMI] 35.0-35.9, adult | CPT/HCPCS: 97803 ==

== ENCOUNTER → 2024-05-08 | Outpatient (CLI) | payer MEDICAID, SELFPAY | END | disposition home or self-care (01) | LOC: PSN 09:26 | PROVIDERS: PCP Internal Medicine; Referring Provider Internal Medicine Cardiovascular Disease; Visit Provider Internal Medicine Cardiovascular Disease | DX: I48.0 Paroxysmal atrial fibrillation (principal) | CPT/HCPCS: 93225; 93226 ==

== ENCOUNTER 2024-12-16 11:11 | Emergency (ER) | payer MEDICAID, SELFPAY ==
[2024-12-16 11:12] VITALS: BP 122/83; PULSE 75; RESP 16; TEMP 36.8; O2SAT 99; BMI 36.9
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
[2024-12-16 11:29] VITALS: BP 120/82; PULSE 77; RESP 16; TEMP 36.6; O2SAT 100
--- OUTSIDE RECORDS SUMMARY | 2024-12-16 11:35 | XMS RPT_ITS | CCD ---
Author Organization [facility] CliniSysd Care Team Providers Care Cork Slabs Sawyer Name Role Phone Kendall Brian Unavailable Koki Worthington MD Primary Care Provider Andrez Ballesteros Unavailable Adore Miller Unavailable Dr. Koki Worthington Primary Care Provider 1([facility])[phone] Dr. Koki Worthington Referring Provider 1([facility])[phone] HOLLI Levine Attending Provider HOLLI Bolden Attending Provider HOLLI Levine Referring Provider HOLLI Levine Other Provider 1([facility])[phone] Quinn Hilliard Attending Provider Dr. Bright Coffey Attending Provider Dr. Koki Worthington Primary Care Provider 1([facility])[phone] Dr. Koki Worthington Referring Provider 1([facility])[phone] Koki Worthington Primary Care Provider Dr. Koki Worthington Referring Provider Roof EXPERT MEDICAL WRITER, NITISH Joiner Attending Provider Dr. Bright Coffey Attending Provider Koki Worthington MD Primary Care Provider Andrez Ballesteros Unavailable Adore Miller Unavailable Andrez Ballesteros Unavailable Adore Miller Unavailable Koki Worthington MD Primary Care Provider Favian, Andrez F Unavailable Paul, Adore Unavailable Elin, Dr. Estes Primary Care Provider Elin, Dr. Estes Referring Provider Roof EXPERT MEDICAL WRITER, EXPERT MEDICAL WRITER-C Adore Joiner Attending Provider Elin, Dr. Estes Primary Care Provider Elin, Dr. Estes Referring Provider Lust PA, PA Amber Attending Provider [phone] Dr. Gio Holguin Attending Provider Koki Worthington MD Primary Care Provider UNGERER, ISABEL EXPERT MEDICAL WRITER Consulting Unavailable LUST, AMBER PA%C Admitting Unavailable LUST, AMBER PA%C Primary Care Unavailable LUST, AMBER PA%C Attending Unavailable PROVIDER, UNKNOWN Consulting Unavailable O'CHILDERS, ABBY EXPERT MEDICAL WRITER Primary Care Unavailable O'CHILDERS, ABBY EXPERT MEDICAL WRITER Attending Unavailable O'CHILDERS, ABBY EXPERT MEDICAL WRITER Admitting Unavailable UNGERER, ISABEL EXPERT MEDICAL WRITER Consulting Unavailable PROVIDER, UNKNOWN Consulting Unavailable O'CHILDERS, ABBY EXPERT MEDICAL WRITER Primary Care Unavailable O'CHILDERS, ABBY EXPERT MEDICAL WRITER Attending Unavailable O'CHILDERS, ABBY EXPERT MEDICAL WRITER Admitting Unavailable UNGERER, ISABEL EXPERT MEDICAL WRITER Consulting Unavailable PROVIDER, UNKNOWN Consulting Unavailable UNGERER, ISABEL EXPERT MEDICAL WRITER Consulting Unavailable O'CHILDERS, ABBY EXPERT MEDICAL WRITER Admitting Unavailable O'CHILDERS, ABBY EXPERT MEDICAL WRITER Primary Care Unavailable O'CHILDERS, ABBY EXPERT MEDICAL WRITER Attending Unavailable PROVIDER, UNKNOWN Consulting Unavailable UNGERER, ISABEL EXPERT MEDICAL WRITER Consulting Unavailable UNGERER, ISABEL EXPERT MEDICAL WRITER Attending Unavailable UNGERER, ISABEL EXPERT MEDICAL WRITER Admitting Unavailable UNGERER, ISABEL EXPERT MEDICAL WRITER Primary Care Unavailable PROVIDER, UNKNOWN Consulting Unavailable ADORE GAO MD Admitting Unavailable ADORE GAO MD Primary Care Unavailable ADORE GAO MD Attending Unavailable Favian, Andrez F Unavailable Roof, Adore Unavailable Dr. Koki Worthington Primary Care Provider [phone] [address]inDr[address] Estes Referring Provider HOLLI Crain Attending Provider Roof EXPERT MEDICAL WRITER, EXPERT MEDICAL WRITER-C Adore Joiner Attending Provider HOLLI Levine Attending Provider Andrez Ballesteros MD Unavailable Dr. Koki Worthington Primary Care Provider Dr. oKki Worthington Referring Provider Roof EXPERT MEDICAL WRITER, EXPERT MEDICAL WRITER-C Adore Joiner Attending Provider HOLLI Levine Attending Provider Dr. Koki Worthington Primary Care Provider Dr. Koki Worthington Referring Provider Roof RIDES ATTENDANT.Adore VERDIN Unavailable Elin, Dr. Estes Primary Care Provider Dr. Koki Worthington Referring Provider HOLLI Bolden Attending Provider Dr. Koki Worthington Primary Care Provider Dr. Koki Worthington Referring Provider HOLLI Bolden Attending Provider Koki Worthington MD Primary Care Provider Roof RIDES ATTENDANT.Adore VERDIN Unavailable Koki Worthington MD Primary Care Provider Heber Holbrook MD Unavailable ELIN, KOKI SARA Primary Care Unavailable GANDANNY, KOKI SARA Primary Care Unavailable GANDANNY, KOKI SARA Primary Care Unavailable MOISES PFEIFFER Attending Unavailable GANTA, KOKI SARA Primary Care Unavailable MOISES PFEIFFER Attending Unavailable GANTA, KOKI SARA Primary Care Unavailable Rossy Duenas PA-C Unavailable [phone] Older RIDES ATTENDANT.Briana VERDIN Unavailable Surya Bishop PA-C Unavailable Kendall NIXON, Brian Unavailable Koki Worthington MD Primary Care Provider Aye DAWN, Estela Unavailable GENOVEVA JOSEPH Referring Unavailable GENOVEVA JOSEPH Attending Unavailable GANTA, KOKI C Primary Care Unavailable Yulissa MCKEON, Rossy L Unavailable [phone] Meaghan MCKEON, Surya Unavailable Elin NIXON, Dr. Estes Primary Care Provider Dr. Koki Worthington MD Referring Provider Kailey Cortez Attending Provider [phone] Chelsie, Gio Attending Unavailable Ganta, Koki Referring Unavailable Ganta, Koki Primary Care Unavailable Chelsie, Gio Attending Unavailable Ganta, Koki Primary Care Unavailable Ganta, Koki Referring Unavailable Kailey Fairbanks Attending Unavailabl e Ganta, Koki Referring Unavailable Ganta, Koki Primary Care Unavailable Eduardo Bolden Attending Unavailable Ganta, Koki Referring Unavailable Ganta, Koki Primary Care Unavailable Hasmukh Hernandez Attending Unavailable Ganta, Koki Referring Unavailable Ganta, Koki Primary Care Unavailable Roof, Adore H Attending Unavailable Roof, Adore H Referring Unavailable Ganta, Koki Primary Care Unavailable Roof, Adore H Attending Unavailable Roof, Adore H Referring Unavailable Ganta, Koki Primary Care Unavailable Roof, Adore H Attending Unavailable Roof, Adore H Referring Unavailable Ganta, Koki Primary Care Unavailable Roof, Adore H Attending Unavailable Roof, Adore H Referring Unavailable Ganta, Koki Primary Care Unavailable Chelsie, Gio Attending Unavailable Chelsie, Gio Referring Unavailable Ganta, Koki Primary Care Unavailable Chelsie, Gio Attending Unavailable Chelsie, Gio Referring Unavailable Ganta, Koki Primary Care Unavailable OLDER, BRIANA Attending Unavailable GANTA, KOKI Primary Care Unavailable OLDER, BRIANA Referring Unavailable GANTA, KOKI Primary Care Unavailable OLDER, BRIANA Attending Unavailable GANTA, KOKI Primary Care Unavailable ADRIANA COULTER Referring Unavailable GANTA, KOKI Primary Care Unavailable GANTA, KOKI Primary Care Unavailable ADELE COSTA Attending Unavailable OLDER, BRIANA Attending Unavailable GANTA, KOKI Primary Care Unavailable GANTA, KOKI Referring Unavailable GANTA, KOKI Primary Care Unavailable GANTA, KOKI Primary Care Unavailable BOGNER, SURYA Referring Unavailable GANTA, KOKI Primary Care Unavailable BOGNER, SURYA Referring Unavailable GANTA, KOKI Primary Care Unavailable SELF Referring Unavailable GANTA, KOKI Primary Care Unavailable NGA MICHEL Attending Unavailable HAURY, ADELE Referring Unavailable GANTA, KOKI Primary Care Unavailable SELF Referring Unavailable GANTA, KOKI Primary Care Unavailable OLDER, BRIANA Referring Unavailable GANTA, KOKI Primary Care Unavailable OLDER, BRIANA Attending Unavailable GANTA, KOKI Primary Care Unavailable OLDER, BRIANA Referring Unavailable GANTA, KOKI Primary Care Unavailable BETHALNGA Attending Unavailable GANTA, KOKI Primary Care Unavailable GANTA, KOKI Attending Unavailable GANTA, KOKI Primary Care Unavailable BETHALNGA Attending Unavailable GANTA, KOKI Primary Care Unavailable GANTA, KOKI Primary Care Unavailable BOGNER, SURYA Attending Unavailable GANTA, KOKI Primary Care Unavailable GANTA, KOKI Primary Care Unavailable GANTA, KOKI Primary Care Unavailable Chelsie NIXON, Gio Thompson Unavailable CLIFTON SCHNEIDER Attending Unavailable OLDER, BRIANA Referring Unavailable GANTA, KOKI Primary Care Unavailable Allergies Allergy Classification Reported Allergen(s) Allergy Type Date of Onset Reaction(s) Facility Adenosine (2 sources) Adenosine Drug Allergy 05-30-19 19 Intolerance [facility] Work Phone: Amoxicillin / Clavulanate (2 sources) Amoxicillin / Clavulanate Drug Allergy 09-22-19 11 Vomiting [facility] Clavulanate (2 sources) Clavulanate Drug Allergy 05-30-19 19 GI Upset [facility] Corticosteroids (2 sources) predniSONE Drug Allergy 01-02-20 10 Swelling [facility] Feathers (2 sources) Feather Substance Allergy 05-30-19 19 Intolerance [facility] Iodine (and Iodine containting drugs) (2 sources) Iodine Drug Allergy 05-03-20 23 Anaphylaxis [facility] Penicillins (antibiotic) (2 sources) Amoxicillin Drug Allergy 09-12-19 22 Vomiting [facility] Sulfonamides (antibiotic) (4 sources) silver sulfADIAZINE Drug Allergy 01-17-20 08 Intolerance, GI Upset [facility] (20 sources) Adenosine; Translations: [ADENOSINE] Drug Allergy 05-30-19 19 Other: See Comments, Intolerance, Other [facility] Work Phone: (20 sources) Amoxicillin / Clavulanate; Translations: [AMOXICILLIN-POT CLAVULANATE] Drug Allergy 09-22-19 11 Vomiting, Nausea/vomitin g [facility] Work Phone: (20 sources) Clavulanate; Translations: [POTASSIUM CLAVULANATE] Drug Allergy 05-30-19 19 GI Upset [facility] Work Phone: (20 sources) Feather; Translations: [FEATHERS] Drug Allergy 05-30-19 19 Other: See Comments, Intolerance, Unknown [facility] Work Phone: [phone] (7 sources) Glucocorticoid; Translations: [CORTICOSTEROIDS (GLUCOCORTICOIDS)] Drug Intolerance 01-02-20 10 Other: See Comments [facility] Work Phone: [phone] (20 sources) predniSONE; Translations: [PREDNISONE] Drug Allergy 01-02-20 10 Swelling [facility] (20 sources) silver sulfADIAZINE; Translations: [SILVER SULFADIAZINE] Drug Allergy 01-17-20 08 Intolerance, Other [facility] (20 sources) Sulfonamides (Antibiotic); Translations: [SULFA (SULFONAMIDE ANTIBIOTICS)] Drug Intolerance 02-20-20 08 GI Upset [facility] (20 sources) Bee Venom Protein (Honey Bee); Translations: [BEE VENOM PROTEIN (HONEY BEE)] Drug Allergy 05-30-19 19 Anaphylaxis [facility] Work Phone: [phone] (20 sources) ENVIRONMENTAL [Other] Propensity to adverse reactions 01-07-20 05 Other: See Comments [facility] Work Phone: (20 sources) stress test IV liquid [Other] Propensity to adverse reactions 09-15-19 06 Anaphylaxis [facility] Work Phone: (20 sources) Amoxicillin; Translations: [amoxicillin trihydrate] Drug Allergy 09-12-19 22 Vomiting [facility] (4 sources) Corticosteroids Allergy to substance 09-12-19 22 Unknown [facility] Work Phone: (4 sources) birds Allergy to substance 09-12-19 22 Unknown [facility] Work Phone: (5 sources) stress test dye Allergy to substance 09-12-19 22 Unknown [facility] (20 sources) Glucocorticoid preparation Drug Intolerance 01-02-20 10 Other: See Comments, Intolerance, Unknown, Swelling [facility] Work Phone: (20 sources) Seasonal allergy Allergy to substance 09-12-19 22 Unknown [facility] (20 sources) Other [place] Drug Allergy 09-12-19 22 Unknown [facility] (12 sources) Sulfonamides (Antibiotic) Propensity to adverse reactions 11-13-19 22 Nausea [facility] (11 sources) Glucocorticoid Receptor Agonists Allergy to substance 04-26-20 22 NEEDS FOLLOW-UP [facility] (12 sources) Environmental Allergies: Uncoded; Translations: [Environmental Allergies: Uncoded] Allergy to substance 04-26-20 NEEDS FOLLOW-UP [facility] Comment on above: BIRDS (10 sources) regadenoson Drug Allergy 09-16-19 23 NEEDS FOLLOW-UP [facility] Comment on above: from stress test (20 sources) Iodine; Translations: [IODINE] Drug Allergy 05-03-20 23 Anaphylaxis [facility] Work Phone: (1 source) Corticosteroids Drug allergy (disorder) 10-20-19 25 [facility] (1 source) Potassium Drug Allergy 10-20-19 25 [facility] (1 source) predniSONE Drug Allergy 10-20-19 25 [facility] (1 source) regadenoson Drug Allergy 10-20-19 25 [facility] (1 source) silver sulfADIAZINE Drug Allergy 10-20-19 25 [facility] (1 source) Sulfonamides (Antibiotic) Drug allergy (disorder) 10-20-19 25 [facility] (1 source) bee venom protein (honey bee) Drug allergy (disorder) 10-20-19 25 [facility] Medications Current Medications Medication Drug Class(es) Dates Sig (Normalized) Sig (Original) acetaminophen 500 mg oral capsule (15 sources) Start: 08-29-2019 take 2 capsules by mouth every six hours as needed for pain Acetaminophen 500 mg capsule Active 1000 mg PO EVERY 6 HOURS as needed for Pain August 29, 2019 12:00am Start: 08-29-2019 take 1000 mg by mout h every six hours Acetaminophen Active 1000 MG PO EVERY 6 HOURS August 29, 2019 12:00am [id number] 200 actuat albuterol 0.09 mg/actuat metered dose inhaler (20 sources) beta2-Adrenergic Agonist Start: 05-11-2024 End: 09-04-2024 take 2 puff(s) by inhalation every four hours as needed albuterol HFA (PROVENTIL HFA, VENTOLIN HFA) 90 mcg/actuation inhaler Indications: Moderate persistent asthma, uncomplicated (HCC) Inhale 2 puffs as instructed every 4 hours as needed. 18 g 3 09/04/2024 Active Start: 04-16-2024 Albuterol Sulf ate 90 mcg/actuation HFA aerosol inhaler Active 2 NMA INHALATION EVERY 6 HOURS as needed for shortness of breath or wheezing 8.5 April 16, 2024 1:00am Start: 02-06-2024 take 2.5 mg by inhal ation every four hours as needed albuterol 2.5 mg /3 mL (0.083 %) nebulizer solution Inhale 3 mL (2.5 mg) every 4 hours if needed. 02/06/2024 Active Start: 08-05-2023 End: 05-08-2024 take 2 puff(s) by inhalation every four hours as needed albuterol HFA (PROVENTIL HFA, VENTOLIN HFA) 90 mcg/actuation inhaler Indications: Moderate persistent asthma, uncomplicated Inhale 2 Puffs as instructed every 4 hours as needed. 18 g 3 12/07/2023 05/08/2024 Discontinued Start: 03-16-2023 End: 02-06-2024 albuterol (PROVENTIL) 2.5 mg /3 mL (0.083 %) nebulizer solution Indications: Moderate persistent asthma with acute exacerbation (HCC) Use 3 mL via nebulizer every 4 hours as needed for wheezing/shortness of breath. Use over 5-15minutes. 90 mL 3 02/06/2024 Active Start: 02-24-2022 End: 03-16-2023 Albuterol Sulfate 1.25 mg/3 mL nebulizer solution Indications: Moderate persistent asthma with acute exacerbation , Cough Use 1 Ampule via nebulizer every 6 hours as needed. 150 mL 3 02/28/2023 03/16/2023 Discontinued Start: 12-21-2021 End: 05-27-2022 take 2 puff(s) by inhalation every four hours as needed albuterol HFA (PROVENTIL HFA, VENTOLIN HFA) 90 mcg/actuation inhaler Indications: Moderate persistent asthma, uncomplicated Inhale 2 Puffs as instructed every 4 hours as needed. 18 g 3 05/27/2022 Active Start: 06-24-2021 End: 12-18-2021 take 2 puff(s) by inhalation every four hours as needed albuterol HFA (PROVENTIL HFA, VENTOLIN HFA) 90 mcg/actuation inhaler Indications: Moderate persistent asthma, uncomplicated Inhale 2 Puffs as instructed every 4 hours as needed. 18 g 5 06/24/2021 12/18/2021 Discontinued Start: 06-18-2019 End: 02-26-2021 take 1.25 mg by inhalation every six hours as needed Albuterol Sulfate 1.25 mg/3 mL solution for nebulization Discontinued 1.25 mg INHALATION EVERY 6 HOURS as needed June 18, 2019 1:00am February 26, 2021 12:52pm Start: 03-01-2019 End: 05-01-2024 Albuterol Sulfate 1 INHALER inhaler Discontinued 2 NMA INHALATION EVERY 4 HOURS NEEDED as needed for Asthma March 01, 2019 12:00am May 01, 2024 10:49am Start: 03-01-2019 take 1 puff(s) by in halation every four hours as needed Albuterol Sulfate Active 2 PUFF INHALATION EVERY 4 HOURS NEEDED March 01, 2019 12:00am Start: 01-18-2019 End: 01-18-2019 albuterol sulfate Discontinu ed 2.5 MG continuous nebulization ONCE 1 January 18, 2019 1:23pm January 18, 2019 1:42pm Start: 01-21-2017 End: 02-01-2018 take 2.5 mg by inhalation every six hours as needed for wheezing Albuterol Sulfate 2.5 MG/3 ML solution for nebulization Discontinued 2.5 mg INHALATION EVERY 6 HOURS NEEDED as needed for Sob &/Or Wheezing January 21, 2017 12:00am February 01, 2018 12:09pm Start: 12-31-2013 End: 02-01-2018 Albuterol Sulfate Discontinu ed 18 GM IH NEEDED December 31, 2013 8:09pm February 01, 2018 12:09pm Start: 12-31-2013 End: 02-01-2018 Albuterol Sulfate 18 GM HFA aerosol inhaler Discontinued 18 g IH NEEDED as needed for Sob &/Or Wheezing December 31, 2013 12:00am February 01, 2018 12:09pm Start: 12-31-2013 End: 02-01-2018 Albuterol Sulfate Discontinu ed 18 GM IH NEEDED December 31, 2013 12:00am February 01, 2018 12:09pm take 2 puff(s) by in halation every four hours albuterol 90 mcg/actuation inhaler Inhale 2 puffs every 4 hours if needed. Active Comment on above: Inhale 2 Puffs as in structed every 4 hours as needed. Use 1 Ampule via neb ulizer every 6 hours as needed. Use 3 mL via nebuliz er every 4 hours as needed for wheezing/shortness of breath. Use over 5-15minutes. benoxinate hydrochloride 4 mg/ml / fluorescein sodium 2.5 mg/ml ophthalmic solution (1 source) Diagnostic Dye Start: 12-03-19 End: 12-03-19 fluorescein-benoxi ramu 0.25-0.4 % 1 Drop (FLURESS) cephalexin 500 mg oral capsule (17 sources) Cephalosporin Antibacterial Start: 03-17-20 End: 03-24-20 24 take 1 capsule by mouth four times daily cephALEXin (KEFLEX) 500 mg capsule Indications: Urinary frequency Take 1 capsule by mouth four times daily for 7 days. 28 capsule 03/17/2024 03/24/2024 Active Start: 04-16-2019 End: 04-26-2019 take 1 capsule by mouth every twelve hours Cephalexin 500 mg capsule Discontinued 500 mg PO Q12H 20 April 16, 2019 1:00am April 25, 2019 1:00am April 26, 2019 1:09am clindamycin 150 mg oral capsule (20 sources) Lincosamide Antibacterial Start: 09-19-2021 End: 09-26-2021 take 2 capsules by mouth three times daily clindamycin (CLEOCIN) 150 mg capsule Take 2 capsules by mouth three times daily for 7 days. 42 capsule 0 09/19/2021 09/26/2021 Active Start: 09-04-2021 End: 10-16-2021 take 1 capsule by mouth four times daily clindamycin (CLEOCIN) 150 mg capsule Take 150 mg by mouth four times daily. 0 09/04/2021 10/16/2021 Discontinued (Course of therapy completed) Start: 10-08-2020 End: 02-09-2021 take 1 capsule by mouth three times daily Clindamycin Hcl 300 mg capsule Discontinued 300 mg PO THREE TIMES A DAY October 08, 2020 12:00am February 09, 2021 10:50am Start: 12-25-2019 End: 2020 take 1 capsule by mouth three times daily Clindamycin Hcl 300 mg capsule Discontinued 300 mg PO THREE TIMES A DAY December 25, 2019 12:00am 2020 12:44pm Start: 09-11-2014 End: 10-24-2014 take 1 capsule by mouth three times daily Clindamycin Hcl 300 MG capsule Discontinued 300 mg PO THREE TIMES A DAY September 11, 2014 12:24pm October 24, 2014 1:29pm Start: 09-11-2014 End: 09-11-2014 take 1 capsule by mouth four times daily Clindamycin Hcl 300 MG capsule Discontinued 300 mg PO 4 TIMES DAILY September 11, 2014 12:00am September 11, 2014 12:24pm Comment on above: Take 2 capsules by m outh three times daily for 7 days. Take 150 mg by mouth four times daily. clonazePAM 0.5 mg oral tablet (20 sources) Benzodiazepine Start: 2 End: take 1 tablet by mouth every six hours as needed clonazePAM (KLONOPIN) 0.5 mg tablet Take 1 tablet by mouth four times daily as needed. 01/19/2012 Active Start: 01-19-2012 clonazepam (KL ONOPIN ORAL) Comment on above: Take 1 tablet by toby four times daily as needed. doxycycline hyclate 100 mg oral tablet (20 sources) Tetracycline-clas s Drug Start: 07-23-2024 End: 08-02-2024 take 1 tablet by mouth twice daily doxycycline (VIBRA-TABS) 100 mg tablet Take 1 tablet by mouth two times a day for 10 days. 20 tablet 07/23/2024 08/02/2024 Active Start: 04-17-2024 End: 04-24-2024 take 1 tablet by mouth twice daily doxycycline monohydrate 100 mg tablet Indications: Community acquired pneumonia of left lung, unspecified part of lung Take 1 tablet by mouth two times a day for 7 days. 14 tablet 04/17/2024 04/24/2024 Active Start: 12-22-2023 End: 01-01-2024 take 1 tablet by mouth twice daily doxycycline (Adoxa) 100 mg tablet TAKE 1 TABLET BY MOUTH TWICE DAILY for TEN days 12/22/2023 Active Start: 11-22-2023 End: 11-29-2023 take 1 tablet by mouth twice daily doxycycline monohydrate 100 mg tablet Indications: Skin infection Take 1 tablet by mouth two times a day for 7 days. 14 tablet 0 11/22/2023 11/29/2023 Active Start: 08-16-2023 End: 08-23-2023 take 1 tablet by mouth twice daily doxycycline (VIBRA-TABS) 100 mg tablet Take 1 tablet by mouth two times a day for 7 days. 14 tablet 0 08/16/2023 08/23/2023 Active Start: 11-03-2021 End: 11-10-2021 take 1 tablet by mouth twice daily doxycycline monohydrate 100 mg tablet Indications: Bacterial sinusitis Take 1 tablet by mouth twice daily for 7 days. 14 tablet 0 11/03/2021 11/10/2021 Active Start: 04-28-2021 End: 10-16-2021 take 1 capsule by mouth twice daily doxycycline hyclate (VIBRAMYCIN) 100 mg capsule Take 1 capsule by mouth twice daily. 20 capsule 0 04/28/2021 10/16/2021 Discontinued (Course of therapy completed) Start: 03-16-2021 End: 01-21-2023 take 1 capsule by mouth twice daily as needed Doxycycline Monohydrate 100 mg capsule Discontinued 100 mg PO TWICE A DAY as needed April 27, 2021 10:08am January 21, 2023 10:15am Start: 02-20-2020 End: 02-09-2021 take 1 capsule by mouth twice daily Doxycycline Hyclate 100 mg capsule Discontinued 100 mg PO TWICE A DAY 60 February 20, 2020 12:00am February 09, 2021 10:49am Start: 01-18-2019 End: 06-18-2019 take 1 capsule by mouth twice daily as needed Doxycycline Monohydrate 100 MG capsule Discontinued 100 mg PO TWICE A DAY as needed for skin March 01, 2019 9:50am June 18, 2019 10:54am Start: 01-21-2017 End: 04-12-2017 take 1 capsule by mouth twice daily Doxycycline Monohydrate 100 MG capsule Discontinued 100 mg PO TWICE A DAY January 21, 2017 12:00am April 12, 2017 3:29pm Comment on above: Take 1 capsule by [facility] twice daily. Take 1 tablet by [facility] twice daily for 7 days. [facility] for 7 days. enteric contrast (will be provided with radiology test) (1 source) Start: 03-12-2022 End: 03-13-2022 enteric contrast (will be provided with radiology test) Indications: Soft tissue mass For CT PELVIS W IVCON order Administer, As Directed One Time Only, via Oral, Rectal, both Oral and Rectal, Enteric Tube, Stoma or Indwelling Catheter, Enteric Contrast as designated per enteric contrast guidelines 1 Each 0 03/12/2022 03/13/2022 Active Comment on above: For CT PELVIS W IVCO N order Administer, As Directed One Time Only, via Oral, Rectal, both Oral and Rectal, Enteric Tube, Stoma or Indwelling Catheter, Enteric Contrast as designated per enteric contrast guidelines [id number] 0.3 ml EPINEPHrine 1 mg/ml auto-injector (20 sources) alpha-Adrenergic Agonist, beta-Adrenergic Agonist, Catecholamine Start: 02-03-2021 EPINEPHrine (EPIPEN) 0.3 mg/0.3 mL auto-injector Use as directed for allergic reaction. Seek emergent medical care immediately after use. 1 Each 02/03/2021 Active Start: 06-18-2019 Epinephrine 0. 3 mg/0.3 mL auto-injector Active 0.3 mg IM ONCE as needed for Allergic Reaction June 18, 2019 1:00am Comment on above: Use as directed for allergic reaction. Seek emergent medical care immediately after use. fluconazole 150 mg oral tablet (1 source) Azole Antifungal Start: 4 End: 4 take 1 tablet by mouth once fluconazole (DIFLUCAN) 150 mg tablet Take 1 tablet by mouth one time only for 1 dose. 1 tablet 0 06/24/2023 06/24/2023 Active Comment on above: Take 1 tablet by toby th one time only for 1 dose. 120 actuat fluticasone propionate 0.22 mg/actuat metered dose inhaler (20 sources) Corticosteroid Start: End: take 1 puff(s) by mouth twice daily fluticasone (FLOVENT) 220 mcg/actuation inhaler Inhale 1 Puff as instructed two times a day. Shake well before use. Rinse mouth after use. 3 Each 3 08/02/2024 Active Start: 04-20-2022 End: 02-06-2024 take 1 puff(s) by inhalation twice daily FLOVENT HFA 110 mcg/actuation inhaler Inhale 1 Puff as instructed twice daily. 04/20/2022 02/06/2024 Discontinued Start: 11-03-2021 End: 08-04-2022 take 2 spray(s) by mouth once daily fluticasone (FLONASE) 50 mcg/actuation nasal spray Indications: Bacterial sinusitis Use 2 Sprays in each nostril once daily. Rinse mouth after use. 1 Each 11/03/2021 08/04/2022 Discontinued (Discontinued by Patient) Start: 10-27-2021 Fluticasone Pr opionate (Flovent Hfa) 220 mcg/actuation HFA aerosol inhaler Active 1 NMA INHALATION TWICE A DAY October 27, 2021 12:00am Start: 10-27-2021 take 1 puff(s) by in halation twice daily Fluticasone Propionate (Flovent Hfa) 220 mcg/actuation HFA aerosol inhaler Active 1 PUFF INHALATION TWICE A DAY October 27, 2021 12:00am Start: 10-16-2021 End: 11-15-2021 take 1 puff(s) by inhalation twice daily fluticasone (FLOVENT HFA) 220 mcg/actuation inhaler Inhale 1 Puff as instructed twice daily. 0.0132 g 0 10/16/2021 11/15/2021 Active Start: 06-18-2019 End: 06-18-2019 Fluticasone Propionate 50 mcg/actuation spray,suspension Discontinued INTRANASAL June 18, 2019 1:00am June 18, 2019 3:56pm Start: 03-01-2019 End: 06-18-2019 Fluticasone Propionate 12 GM HFA aerosol inhaler Discontinued 2 NMA IH DAILY as needed for Asthma March 01, 2019 12:00am June 18, 2019 10:51am Start: 03-01-2019 End: 06-18-2019 take 1 puff(s) by inhalation once daily Fluticasone Propionate Discontinued 2 PUFF IH DAILY March 01, 2019 12:00am June 18, 2019 10:51am Comment on above: Inhale 1 Puff as ins tructed twice daily. Use 2 Sprays in each nostril once daily. Rinse mouth after use. ibuprofen 800 mg oral tablet (20 sources) Nonsteroidal Anti-inflammatory Drug Start: 08-07-2023 take 1 tablet by mouth every eight hours as needed ibuprofen (MOTRIN) 800 mg tablet Take 1 tablet by mouth every 8 hours as needed for pain. Take with food. 30 tablet 08/07/2023 Active Start: 12-25-2019 End: 05-22-2021 take 3 tablets by mouth every six hours as needed for pain Ibuprofen 200 mg tablet Discontinued 600 mg PO EVERY 6 HOURS as needed for Breakthrough Pain December 25, 2019 12:00am May 22, 2021 11:28am Start: 12-25-2019 End: 05-22-2021 take 600 mg by mouth every six hours Ibuprofen Discontinued 600 MG PO EVERY 6 HOURS December 25, 2019 12:00am May 22, 2021 11:28am Start: 06-18-2019 End: 08-29-2019 take 3 tablets by mouth every six hours as needed Ibuprofen 200 mg tablet Discontinued 600 mg PO EVERY 6 HOURS as needed June 18, 2019 1:00am August 29, 2019 10:59am Start: 06-18-2019 End: 08-29-2019 take 600 mg by mouth every six hours Ibuprofen Discontinued 600 MG PO EVERY 6 HOURS June 18, 2019 1:00am August 29, 2019 10:59am Start: 01-21-2017 End: 06-18-2019 take 1 tablet by mouth three times daily as needed for pain Ibuprofen 800 MG tablet Discontinued 800 mg PO 3 TIMES DAILY NEEDED as needed for Pain January 21, 2017 12:00am June 18, 2019 10:54am Comment on above: Take 1 tablet by toby th every 8 hours as needed for pain. Take with food. iv contrast (will be provided with radiology test) (1 source) Start: 03-12-2022 End: 03-13-2022 iv contrast (will be provided with radiology test) Indications: Soft tissue mass CT PELVIS W -Inject, intravenously, once for [...] in the CT contrast administration guidelines link. 1 Each 0 03/12/2022 03/13/2022 Active Comment on above: CT PELVIS W -Inject, intravenously, once for [...] in the CT contrast administration guidelines link. lactobacillus acidophilus 460 mg oral capsule (20 sources) Start: 09-19-2021 End: 05-01-2024 Lactobacillus acidophilus (FLORAJEN ACIDOPHILUS) 20 billion cell cap Take 460 mg by mouth once daily. 30 capsule 09/19/2021 Active Comment on above: Take 460 mg by mouth once daily. levonorgestrel 0.964868 mg/hr intrauterine system (20 sources) Progestin, Progestin-containing Intrauterine Device Start: 01-13-2024 End: 01-11-2029 levonorgestrel (Mirena) 21 mcg/24 hr (8 yrs) 52 mg IUD 52 mg by intrauterine route. 01/13/2024 01/11/2029 Active Start: 01-13-2024 End: 01-11-2029 levonorgestrel (MIRENA) 21 m cg/24 hr (8 yrs) 52 mg IUD Indications: Encounter for IUD insertion 1 Each by INTRAUTERINE route as directed. 1 Each 01/13/2024 01/11/2029 Active Start: 06-18-2019 End: 01-21-2023 Levonorgestrel (Mirena) 20 m cg/24 hours (5 yrs) 52 mg intrauterine device Discontinued 1 NMA INTRA-UTER ONCE June 18, 2019 1:00am January 21, 2023 10:16am as a single dose Start: 08-02-2016 End: 03-10-2023 levonorgestrel (MIRENA) 20 m cg/24 hr (5 years) IUD Inserted in office 1 Each 08/02/2016 03/10/2023 Discontinued (Patient chooses alternative therapy) Comment on above: Inserted in office meclizine hydrochloride 25 mg oral tablet (20 sources) Antiemetic Start: 08-29-19 End: 03-22-20 take 1 tablet by mouth every twelve hours as needed meclizine (ANTIVERT) 25 mg tab Take 25 mg by mouth twice daily as needed. 09/05/2019 Active Comment on above: Take 25 mg by mouth twice daily as needed. metroNIDAZOLE 0.0075 mg/mg vaginal gel (20 sources) Nitroimidazole Antimicrobial Start: 03-05-20 metroNIDAZOLE (METROGEL VAGINAL) 0.75 % (37.5mg/5 gram) Vaginal Gel Use 1 applicator vaginally twice per week. 70 g 2 03/05/2024 Active Start: 12-15-2023 End: 12-22-2023 take 1 tablet by mouth twice daily metroNIDAZOLE (FLAGYL) 500 mg tablet Take 1 tablet by mouth two times a day for 7 days. 14 tablet 0 12/15/2023 12/22/2023 Active Start: 06-17-2023 End: 02-06-2024 metroNIDAZOLE (METROGEL VAGI NAL) 0.75 % (37.5mg/5 gram) Vaginal Gel Use 1 applicator vaginally twice per week. 70 g 2 06/17/2023 02/06/2024 Discontinued Start: 03-11-2023 End: 03-18-2023 take 1 tablet by mouth twice daily metroNIDAZOLE (FLAGYL) 500 mg tablet Take 1 tablet by mouth two times a day for 7 days. 14 tablet 0 03/11/2023 03/18/2023 Active Comment on above: Take 1 tablet by toby th two times a day for 7 days. Use 1 applicator vag inally twice per week. montelukast 10 mg oral tablet (20 sources) Leukotriene Receptor Antagonist Start: take 1 tablet by mouth once daily at bedtime montelukast (SINGULAIR) 10 mg tablet Take 1 tablet by mouth daily at bedtime. 90 tablet 1 11/21/2024 Active Start: 05-08-2024 End: 11-19-2024 take 1 tablet by mouth once daily at bedtime montelukast (SINGULAIR) 10 mg tablet Take 1 tablet by mouth daily at bedtime. 90 tablet 1 05/08/2024 11/19/2024 Discontinued Start: 04-26-2022 End: 02-06-2024 take 1 tablet by mouth once daily at bedtime montelukast (SINGULAIR) 10 mg tablet Take 1 tablet by mouth daily at bedtime. 90 tablet 1 05/08/2024 Active Comment on above: Take 1 tablet by toby th once daily. Nebulizer Accessories misc (20 sources) Start: 09-30-2023 Nebulizer Accessories misc Indications: Mild intermittent asthma without complication (HCC) 1 Each as needed. 12 Each 1 09/30/2023 Active Start: 09-30-2023 Nebulizer Acce ssories misc Indications: Mild intermittent asthma without complication 1 Each as needed. 12 Each 1 09/30/2023 Active Nebulizers (20 sources) Start: 02-28-2023 Nebulizers 1 E ach as needed. Nebulizer with accessories/tubing 1 Each 02/28/2023 Active Start: 02-28-2023 Nebulizers 1 E ach as needed. Nebulizer with accessories/tubing 1 Each 0 02/28/2023 Active Start: 02-25-2022 End: 02-28-2023 Nebulizers 1 Each as needed. Nebulizer with accessories/tubing 1 Each 0 02/25/2022 02/28/2023 Discontinued Start: 02-25-2022 Nebulizers 1 E ach as needed. Nebulizer with accessories/tubing 1 Each 0 02/25/2022 Active Comment on above: 1 Each as needed. Ne bulizer with accessories/tubing nitroglycerin 0.4 mg sublingual tablet (20 sources) Nitrate Vasodilator Start: 2018 End: 2021 nitroglycerin sublingual (NITROQUICK) 0.4 mg SL tablet Dissolve 1 tablet under the tongue every 5 minutes as needed. 25 tablet 3 04/28/2020 Active Comment on above: Dissolve 1 tablet un annemarie the tongue every 5 minutes as needed. omeprazole 20 mg delayed release oral capsule (20 sources) Proton Pump Inhibitor Start: 2021 End: 2022 take 1 tablet by mouth once daily before breakfast Omeprazole Magnesium (PRILOSEC OTC) 20 mg tablet Indications: Gastroesophageal reflux disease, unspecified whether esophagitis present Take 1 tablet by mouth daily before breakfast. 1/2 hr before meal. 30 tablet 5 06/24/2021 12/18/2021 Discontinued Start: 04-27-2021 End: 05-01-2024 take 1 capsule by mouth before breakfast omeprazole (PRILOSEC) 20 mg capsule Indications: Gastroesophageal reflux disease, unspecified whether esophagitis present TAKE 1 CAPSULE BY MOUTH 1/2 HOUR before breakfast 30 capsule 5 02/28/2023 Active Comment on above: Take 1 tablet by toby th daily before breakfast. 1/2 hr before meal. TAKE 1 CAPSULE BY MO [facility] 1/2 HOUR before breakfast phenylephrine hydrochloride 25 mg/ml ophthalmic solution (1 source) alpha-1 Adrenergic Agonist Start: 12-02-2021 End: 12-02-2021 PHENYLephrine 2.5 % 1 Drop (AK-DILATE, SALBAD[place]-SYNEPHRINE) pravastatin sodium 20 mg oral tablet (20 sources) HMG-CoA Reductase Inhibitor Start: 01-02-2020 End: 04-17-2024 pravastatin (PRAVACHOL) 20 mg tablet Take 20 mg by mouth. 02/01/2024 Active Start: 12-31-2013 End: 12-25-2019 take 2 tablets by mouth at bedtime Pravastatin 10 MG tablet Discontinued 20 mg PO AT BEDTIME December 31, 2013 12:00am December 25, 2019 10:53am Start: 12-31-2013 End: 12-25-2019 take 20 mg by mouth at bedtime Pravastatin Discontinue d 20 MG PO AT BEDTIME December 31, 2013 12:00am December 25, 2019 10:53am Comment on above: Take 20 mg by mouth daily at bedtime. proparacaine hydrochloride 5 mg/ml ophthalmic solution (1 source) Local Anesthetic Start: End: proparacaine 0.5 % 1 Drop (ALCAINE) pyrroloquinoline quinone disod ([id number] QUINONE ORAL) (4 sources) Start: 08-01-2 023 pyrroloquinoline quinone disod ([id number] QUINONE ORAL) 12/07/2022 Active sertraline 100 mg oral tablet (20 sources) Serotonin Reuptake Inhibitor Start: 021 take 1 tablet by mouth once daily Sertraline 100 mg tablet Active 100 mg PO DAILY February 09, 2021 12:00am Start: 12-19-2016 End: 02-01-2018 take 1 tablet by mouth once daily Sertraline 100 MG tablet Discontinued 100 mg PO DAILY December 19, 2016 12:00am February 01, 2018 12:09pm take 1 tablet by toby twice daily sertraline (ZOLOFT) 100 mg tablet Take 100 mg by mouth twice daily. Active take 2 tablets by mo inh once daily sertraline (Zoloft) 100 mg tablet Take 2 Tablet By Oral Route Per daily Active Comment on above: Take 100 mg by mouth twice daily. tropicamide 10 mg/ml ophthalmic solution (1 source) Anticholinergic Start: 12-03-19 End: 12-03-19 22 tropicamide 1 % 1 Drop (MYDRIACYL) ubidecarenone 10 mg oral capsule (9 sources) Start: 12-17-19 23 Coenzyme Q10 10 mg capsule Active 10 mg PO ONCE December 16, 2022 12:00am ubidecarenone (H2Q COQ10 ORAL) (20 sources) take 50 mg by mouth once daily ubidecarenone (H2Q COQ10 ORAL) Take by mouth. 50mg x1 daily Active take 50 mg by mouth once daily u bidecarenone (H2Q COQ10 ORAL) Take by mouth. 50mg x1 daily 0 Active Comment on above: Take by mouth. 50mg x1 daily Completed/Discontinued Medications Medication Drug Class(es) Dates Sig (Normalized) Sig (Original) acetaminophen 325 mg / HYDROcodone bitartrate 5 mg oral tablet (20 sources) Opioid Agonist Start: 02-03-2018 End: 02-06-2018 Hydrocodone-Acetami nophen 1 TABLET tablet Discontinued 1 {tbl} PO EVERY 6 HOURS NEEDED as needed for Pain 6 3 February 03, 2018 12:00am February 05, 2018 12:00am February 06, 2018 12:10am Start: 02-03-2018 End: 02-06-2018 take 1 tablet by mouth every six hours as needed Hydrocodone-Acetaminophen Discontinued 1 TABLET PO EVERY 6 HOURS NEEDED 6 3 February 03, 2018 12:00am February 06, 2018 12:10am Start: 01-26-2017 End: 04-12-2017 Hydrocodone-Acetaminophen 1 TABLET tablet Discontinued 1 - 2 {tbl} PO EVERY 6 HOURS NEEDED as needed for Pain January 26, 2017 12:00am April 12, 2017 3:30pm Start: 01-26-2017 End: 04-12-2017 take 1 tablet by mouth every six hours as needed Hydrocodone-Acetaminophen Discontinued 1 - 2 TABLET PO EVERY 6 HOURS NEEDED January 26, 2017 12:00am April 12, 2017 3:30pm End: 08-04-2022 take 1 tablet by mouth every eight hours as needed HYDROcodone-Acetaminophen (NORCO) 7.5-32 5 mg per tablet Take 1 tablet by mouth every 8 hours as needed for pain. 08/04/2022 Discontinued (Discontinued by Patient) Comment on above: Take 1 tablet by toby th every 8 hours as needed for pain. acetaminophen 325 mg / oxyCODONE hydrochloride 5 mg oral tablet (20 sources) Opioid Agonist Start: 04-26-2022 End: 12-22-2023 Oxycodone-Acetaminophen (Percocet) 5-325 mg tablet Discontinued 1 {tbl} PO Q8H as needed April 26, 2022 1:00am December 22, 2023 6:25am Start: 04-01-2022 End: 11-08-2024 take 1-2 tablets by mouth every four to six hours as needed for pain oxyCODONE-acetaminophen (PERCOCET) 5-325 mg tablet Take 1-2 tablets by mouth as directed. Every 4-6 hours as needed for pain. 04/01/2022 11/08/2024 Discontinued (Other) Start: 04-01-2022 oxyCODONE-acet aminophen (Percocet) 5-325 mg tablet Take 1-2 tablets by mouth. 04/01/2022 Active Start: 06-18-2019 End: 06-18-2019 Oxycodone-Acetaminophen 5-32 5 mg tablet Discontinued 1 {tbl} PO Q8H as needed June 18, 2019 1:00am June 18, 2019 3:58pm Start: 06-18-2019 End: 06-18-2019 take 1 tablet by mouth every eight hours Oxycodone-Acetaminophen Discontinued 1 TABLET PO Q8H June 18, 2019 1:00am June 18, 2019 3:58pm Start: 03-07-2019 End: 03-18-2019 take 1-2 tablets by mouth every six hours as needed for pain Oxycodone-Acetaminophen 1 TABLET tablet Discontinued 1 - 2 {tbl} PO EVERY 6 HOURS NEEDED as needed for Pain 03 10March 07, 2019 March 11, 2019 12:00am March 18, 2019 1:09am stop all other narcotics and tylenol products Start: 03-07-2019 End: 03-18-2019 take 1-2 tablets by mouth every six hours as needed Oxycodone-Acetaminophen Discontinued 1 - 2 TABLET PO EVERY 6 HOURS NEEDED 03 10March 07, 2019 March 18, 2019 1:09am stop all other narcotics and tylenol products Comment on above: Take 1-2 tablets by mouth as directed. Every 4-6 hours as needed for pain. amoxicillin 875 mg / clavulanate 125 mg oral tablet (15 sources) Penicillin-class Antibacterial Start: 05-29-2021 End: 06-08-2021 Amoxicillin-Pot Clavulanate 875-125 mg tablet Discontinued 1 {tbl} PO Q12H 25 02May 29, 2021 1:00am June 07, 2021 1:00am June 08, 2021 1:02am Start: 05-29-2021 End: 06-08-2021 take 1 tablet by mouth every twelve hours Amoxicillin-Pot Clavulanate Discontinued 1 TABLET PO Q12H 20 May 29, 2021 1:00am June 08, 2021 1:02am aspirin 81 mg chewable tablet (20 sources) Platelet Aggregation Inhibitor, Nonsteroidal Anti-inflammatory Drug Start: 10-27-2021 End: 04-26-2022 take 1 tablet by mouth every other day Aspirin 81 mg tablet,chewable Discontinued 81 mg PO .Every other day October 27, 2021 9:23am April 26, 2022 12:46pm Start: 04-08-2021 End: 10-27-2021 take 1 tablet by mouth once daily Aspirin 81 mg tablet,chewable Discontinued 81 mg PO DAILY April 08, 2021 1:00am October 27, 2021 9:23am End: 03-29-2023 aspirin 81 mg cap Indication s: Facial paresthesia , Transient vision disturbance of right eye , Blepharospasm of right eye Take 81 mg by mouth. 08/04/2022 Discontinued (Discontinued by Patient) Comment on above: Take 81 mg by mouth. azithromycin 250 mg oral tablet (16 sources) Macrolide Antimicrobial Start: 10-04-2023 End: 12-22-2023 Azithromycin 250 mg tablet Discontinued 250 mg PO .COMPLEX October 04, 2023 12:00am December 22, 2023 6:25am 2 tablets (500 mg) on day 1, then 1 tablet daily on days 2 through 11 Start: 09-10-2018 End: 10-24-2018 take 2-5 tablets by mouth once daily Azithromycin 250 mg tablet Discontinued 0 PO .COMPLEX September 10, 2018 12:00am October 24, 2018 1:09pm take 500 mg today (day 1), then 250 mg for 4 days (days 2-5) PO benzonatate 100 mg oral capsule (14 sources) Non-narcotic Antitussive Start: 07-23-2024 End: 11-07-2024 take 2 capsules by mouth every eight hours as needed benzonatate (TESSALON PERLE) 100 mg capsule Take 2 capsules by mouth three times a day as needed. 30 capsule 07/23/2024 11/07/2024 Discontinued (Course of therapy completed) Start: 04-16-2024 End: 05-01-2024 take 1 capsule by mouth three times daily as needed for cough Benzonatate 200 mg capsule Discontinued 200 mg PO THREE TIMES A DAY as needed for cough April 16, 2024 1:00am May 01, 2024 10:49am Start: 10-04-2023 End: 12-22-2023 take 1 capsule by mouth at bedtime as needed for cough Benzonatate 200 mg capsule Discontinued 200 mg PO AT BEDTIME as needed for cough October 04, 2023 12:00am December 22, 2023 6:25am betamethasone 3 mg/ml / betamethasone acetate 3 mg/ml injectable suspension (1 source) Corticosteroid Start: 07-31-2021 End: 07-31-2021 betamethasone acetate-betamethasone sodium phosphate 6 mg injection (CELESTONE) Start: 07-31-2021 End: 07-31-2021 betamethasone acetate-betame thasone sodium phosphate 6 mg injection (CELESTONE) betamethasone 0.5 mg/ml / clotrimazole 10 mg/ml topical cream (2 sources) Azole Antifungal, Corticosteroid Start: 03-10-2023 clotrimazole-betamethasone (LOTRISONE) cream Apply 1 application to affected area two times a day. 45 g 0 03/10/2023 Active Comment on above: Apply 1 application to affected area two times a day. Bifidobacteri Bifid.And Longum (14 sources) Start: 06-18-2019 End: 02-09-2021 take 1 capsule by mouth once daily Bifidobacteri Bifid.And Longum Discontinued 1 CAP PO DAILY June 18, 2019 10:53am February 09, 2021 10:50am Start: 06-18-2019 End: 02-09-2021 take 1 capsule by mouth once daily Bifidobacteri Bifid.And Longum Discontinued 1 CAP PO DAILY June 18, 2019 12:00am February 09, 2021 9:50am Start: 06-18-2019 End: 02-09-2021 take 1 capsule by mouth once daily Bifidobacteri Bifid.And Longum Discontinued 1 CAP PO DAILY June 18, 2019 1:00am February 09, 2021 10:50am Bifidobacteri Bifid.And Longum 460 mg (9-1 bill.cell) capsule (1 source) Start: 06-18-2019 End: 02-09-2021 take 1 capsule by mouth once daily Bifidobacteri Bifid.And Longum 460 mg (9-1 bill.cell) capsule Discontinued 1 NMA PO DAILY June 18, 2019 1:00am February 09, 2021 10:50am brompheniramine maleate 0.4 mg/ml / dextromethorphan hydrobromide 2 mg/ml / pseudoephedrine hydrochloride 6 mg/ml oral solution (16 sources) alpha-Adrenergic Agonist, Uncompetitive B-bqyzxj-P-asparta te Receptor Antagonist, Sigma-1 Agonist Start: 08-07-2023 End: 12-15-2023 take 5-10 mL by mouth every six hours as needed Brompheniramine-Pse udoeph-DM (BROMFED DM) 2-30-10 mg/5 mL syrup Take 5-10 ml po q6h prn 120 mL 0 08/07/2023 12/15/2023 Discontinued Comment on above: Take 5-10 ml po q6h prn cholecalciferol 1.25 mg oral capsule (15 sources) Vitamin D Start: 08-29-2019 End: 12-25-2019 take 1 capsule by mouth every week Cholecalciferol (Vitamin D3) 1,250 mcg (50,000 unit) capsule Discontinued 45887 U PO EVERY WEEK August 29, 2019 12:00am December 25, 2019 10:49am diflunisal 500 mg oral tablet (15 sources) Nonsteroidal Anti-inflammatory Drug Start: 09-06-2017 End: 02-01-2018 take 1 tablet by mouth three times daily Diflunisal 500 MG tablet Discontinued 500 mg PO THREE TIMES A DAY September 06, 2017 12:00am February 01, 2018 12:09pm Foam Bandage (Aquacel Foam) 1 EACH Bandage (15 sources) Start: 09-11-2014 End: 09-11-2014 Foam Bandage (Aquacel Foam) 1 EACH Bandage Discontinued 1 EACH TP DAILY September 11, 2014 5:38pm September 11, 2014 6:02pm size of right axillary wound - 9 x 5 x 3 cm. ICD-9 code - 880.12, 705.83. Start: 09-11-2014 End: 09-11-2014 Foam Bandage (Aquacel Foam) 1 EACH Bandage Discontinued 1 NMA TP DAILY September 11, 2014 12:00am September 11, 2014 6:02pm size of right axillary wound - 9 x 5 x 3 cm. ICD-9 code - 880.12, 705.83. Start: 09-11-2014 End: 09-11-2014 Foam Bandage (Aquacel Foam) 1 EACH Bandage Discontinued 1 EACH TP DAILY September 10, 2014 11:00pm September 11, 2014 5:02pm size of right axillary wound - 9 x 5 x 3 cm. ICD-9 code - 880.12, 705.83. Start: 09-11-2014 End: 09-11-2014 Foam Bandage (Aquacel Foam) 1 EACH Bandage Discontinued 1 EACH TP DAILY September 11, 2014 12:00am September 11, 2014 6:02pm size of right axillary wound - 9 x 5 x 3 cm. ICD-9 code - 880.12, 705.83. 12 hr guaiFENesin 600 mg extended release oral tablet (20 sources) Start: 03-25-2021 End: 02-06-2024 take 2 tablets by mouth twice daily guaiFENesin (MUCINEX) 600 mg 12 hr tablet Take 2 tablets by mouth twice daily. 24 tablet 03/25/2021 02/06/2024 Discontinued Start: 06-18-2019 End: 02-09-2021 take 1 tablet by mouth twice daily as needed Guaifenesin 600 mg tablet extended release 12hr Discontinued 1200 mg PO TWICE A DAY as needed June 18, 2019 3:57pm February 09, 2021 10:49am Start: 06-18-2019 End: 02-09-2021 take 1200 mg by mouth twice daily Guaifenesin Discontinued 1200 MG PO TWICE A DAY June 18, 2019 3:57pm February 09, 2021 10:49am Comment on above: Take 2 tablets by mo ut twice daily. hydrocortisone 10 mg/ml / neomycin 3.5 mg/ml / polymyxin b [id number] unt/ml otic suspension (3 sources) Aminoglycoside Antibacterial, Polymyxin-class Antibacterial, Corticosteroid Start: 03-17-20 24 End: 04-17-20 24 neomycin-polymyxin- hydrocortisone (CORTISPORIN) 3.5-10,000-1 mg/mL-unit/mL-% otic suspension Indications: Acute otitis externa of left ear, unspecified type Use 3 Drops in both ears four times daily. 10 mL 03/17/2024 04/17/2024 Discontinued (Course of therapy completed) ketoconazole 20 mg/ml medicated shampoo (15 sources) Azole Antifungal Start: 05-08-20 19 End: 06-05-19 20 Ketoconazole (Nizoral) 2 % shampoo Discontinued 1 NMA TOPICAL TWICE A WEEK 120 May 08, 2019 1:00am June 04, 2019 1:00am June 05, 2019 1:07am L. acidophilus-L. rhamnosus 15 billion cell cap (3 sources) Start: 07-23-19 21 End: 10-17-19 22 take 1 capsule by mouth once daily L. acidophilus-L. rhamnosus 15 billion cell cap Indications: BV (bacterial vaginosis) Take 1 capsule by mouth once daily. FLORAJEN WOMEN. If on antibiotic, take at least 1-2 hours before or after antibiotic. KEEP REFRIGERATED 30 capsule 11 07/22/2020 10/16/2021 Discontinued (Clinical Decision) Start: 07-22-2020 take 1 capsule by [facility] once daily L. acidophilus-L. rhamnosus 15 billion cell cap Indications: BV (bacterial vaginosis) Take 1 capsule by mouth once daily. FLORAJEN WOMEN. If on antibiotic, take at least 1-2 hours before or after antibiotic. KEEP REFRIGERATED 30 capsule 11 07/22/2020 Active Comment on above: Take 1 capsule by [facility] once daily. FLORAJEN WOMEN. If on antibiotic, take at least 1-2 hours before or after antibiotic. KEEP REFRIGERATED lansoprazole 30 mg delayed release oral capsule (20 sources) Proton Pump Inhibitor Start: 03-01-20 End: 07-02-19 take 1 capsule by mouth once daily Lansoprazole 30 mg capsule,delayed release(DR/EC) Discontinued 30 mg PO DAILY June 18, 2019 10:47am 2020 12:45pm loratadine 10 mg oral tablet (15 sources) Start: 06-18-19 End: 12-25-19 20 take 1 tablet by mouth once daily Loratadine 10 mg tablet Discontinued 10 mg PO DAILY June 18, 2019 1:00am December 25, 2019 10:51am meloxicam 15 mg oral tablet (2 sources) Nonsteroidal Anti-inflammatory Drug Start: 12-05-19 End: 12-20-19 take 1 tablet by mouth once daily at mealtime meloxicam (MOBIC) 15 mg tablet Indications: Elbow pain, left Take 1 tablet by mouth once daily for 15 days. Take with food. 15 tablet 0 12/04/2021 12/19/2021 Comment on above: Take 1 tablet by [facility] once daily for 15 days. Take with food. 24 hr metoprolol succinate 25 mg extended release oral tablet (20 sources) beta-Adrenergic Leonora Start: 06-18-19 End: 04-20-20 21 take 1 tablet by mouth once daily Metoprolol Succinate 25 mg tablet extended release 24 hr Discontinued 25 mg PO DAILY May 23, 2020 4:56pm April 20, 2021 9:54am miconazole nitrate 20 mg/ml vaginal cream (20 sources) Azole Antifungal Start: 12 End: 02-06-20 24 miconazole (MONISTAT 7) 2 % vaginal cream Use 1 Applicator vaginally daily at bedtime. 45 g 05/03/2023 02/06/2024 Discontinued Comment on above: Use 1 Applicator vag inally daily at bedtime. nadolol 20 mg oral tablet (20 sources) beta-Adrenergic Leonora Start: 01-22-20 End: 11-09-19 take 1 tablet by mouth once daily nadolol (CORGARD) 20 mg tablet Take 1 tablet by mouth once daily. 05/08/2024 11/08/2024 Discontinued (Other) Start: 01-18-2022 take 0.5 tablet by m outh twice daily nadolol (CORGARD) 20 mg tablet Take 0.5 tablets by mouth twice daily. 01/18/2022 Active Start: 10-27-2021 End: 01-21-2023 take 1 tablet by mouth twice daily Nadolol 20 mg tablet Discontinued 10 mg PO TWICE A DAY October 27, 2021 9:10am January 21, 2023 10:42am Start: 10-27-2021 End: 01-21-2023 Nadolol Discontinued 10 MG P O .PRN January 21, 2023 10:41am January 21, 2023 10:49am Start: 08-17-2021 End: 01-18-2022 take 0.5 tablet by mouth once daily nadolol (CORGARD) 20 mg tablet TAKE 1/2 (ONE-HALF) OF A TABLET BY MOUTH DAILY 08/17/2021 01/18/2022 Discontinued Start: 04-20-2021 End: 10-27-2021 take 1 tablet by mouth once daily Nadolol 20 mg tablet Discontinued 20 mg PO DAILY September 21, 2021 9:26am October 27, 2021 9:10am Start: 04-20-2021 End: 09-21-2021 take 10 mg by mouth once daily Nadolol Discontinued 10 MG PO DAILY August 17, 2021 12:54pm September 21, 2021 9:26am Start: 07-27-2014 End: 06-18-2019 take 1 tablet by mouth once daily as needed Nadolol 20 mg tablet Discontinued 20 mg PO DAILY as needed for TACHYCARDIA OR HTN June 18, 2019 3:57pm June 18, 2019 4:38pm Comment on above: TAKE 1/2 (ONE-HALF) OF A TABLET BY MOUTH DAILY Take 0.5 tablets by mouth twice daily. nebivolol 2.5 mg oral tablet (2 sources) Start: 10-19-2024 End: 11-08-2024 nebivolol (BYSTOLIC) 2.5 mg tablet 2.5 mg. 10/19/2024 11/08/2024 Discontinued (Other) nystatin [id number] unt/ml oral suspension (20 sources) Polyene Antifungal Start: 05-06-2023 End: 04-17-2024 nystatin (MYCOSTATIN) 100,000 unit/mL suspension Take 5 mL by mouth four times daily. 1tsp swish in mouth for several minutes, then swallow (or expectorate) 4 times daily until gone. 200 mL 05/06/2023 04/17/2024 Discontinued (Course of therapy completed) Start: 10-24-2018 End: 11-07-2018 Nystatin 100,000 unit/mL maritza pension Discontinued [id number] U PO DAILY 14 October 24, 2018 12:00am November 06, 2018 12:00am November 07, 2018 12:06am administer 1/2 of dose in each side of the mouth Comment on above: Take 5 mL by mouth f our times daily. 1tsp swish in mouth for several minutes, then swallow (or expectorate) 4 times daily until gone. ondansetron 4 mg disintegrating oral tablet (20 sources) Serotonin-3 Receptor Antagonist Start: 09-13-19 End: 10-28-19 take 1 tablet by mouth every eight hours as needed for nausea and vomiting Ondansetron 4 mg tablet,disintegrati ng Discontinued 4 mg PO Q8H as needed for nausea and vomiting September 12, 2021 12:00am October 27, 2021 8:42am Start: 06-18-2019 End: 08-29-2019 take 1 tablet by mouth every six hours as needed Ondansetron 4 mg tablet,disintegrating Discontinued 4 mg PO EVERY 6 HOURS as needed June 18, 2019 1:00am August 29, 2019 11:01am Start: 03-07-2019 End: 06-18-2019 take 1 tablet by mouth every eight hours as needed for nausea Ondansetron Hcl 8 MG tablet Discontinued 8 mg PO EVERY 8 HOURS NEEDED as needed for Nausea March 07, 2019 12:00am June 18, 2019 10:49am 12 hr orphenadrine citrate 100 mg extended release oral tablet (13 sources) Muscle Relaxant Start: 11-15-2021 End: 01-21-2023 take 1 tablet by mouth twice daily as needed for pain Orphenadrine Citrate 100 mg tablet extended release Discontinued 100 mg PO TWICE A DAY as needed for neck pain/muscle pain November 15, 2021 12:00am January 21, 2023 10:17am oseltamivir 75 mg oral capsule (20 sources) Neuraminidase Inhibitor Start: 07-11-2019 End: 07-16-2019 take 1 capsule by mouth twice daily Oseltamivir 75 mg capsule Discontinued 75 mg PO TWICE A DAY 10 July 11, 2019 1:00am July 15, 2019 1:00am July 16, 2019 12:09am Start: 06-21-2018 End: 06-26-2018 take 1 capsule by mouth twice daily Oseltamivir 75 mg capsule Discontinued 75 mg PO TWICE A DAY 10 June 21, 2018 1:00am June 25, 2018 1:00am June 26, 2018 1:09am oxaprozin 600 mg oral tablet (15 sources) Nonsteroidal Anti-inflammatory Drug Start: 02-09-2021 End: 04-27-2021 take 1 tablet by mouth three times daily Oxaprozin 600 mg tablet Discontinued 600 mg PO THREE TIMES A DAY February 09, 2021 12:00am April 27, 2021 10:09am potassium chloride 20 meq extended release oral tablet (20 sources) Start: 07-17-2019 End: 01-21-2023 take 1 tablet by mouth once daily Potassium Chloride 20 mEq tablet extended release Discontinued 20 meq PO DAILY July 17, 2019 4:21pm April 27, 2021 10:09am Comment on above: Take 1 tablet by toby once daily as needed. promethazine hydrochloride 25 mg oral tablet (15 sources) Phenothiazine Start: 01-26-2017 End: 04-12-2017 take 1 tablet by mouth every eight hours as needed for nausea Promethazine 25 MG tablet Discontinued 25 mg PO EVERY 8 HOURS NEEDED as needed for Nausea January 26, 2017 12:00am April 12, 2017 3:31pm 20 ml ropivacaine hydrochloride 5 mg/ml injection (1 source) Amide Local Anesthetic Start: 07-31-2021 End: 07-31-2021 ropivacaine (PF) 5 mg/mL (0.5 %) 8 mL injection (NAROPIN) Start: 07-31-2021 End: 07-31-2021 ropivacaine (PF) 5 mg/mL (0. 5 %) 8 mL injection (NAROPIN) selenium sulfide 22.5 mg/ml medicated shampoo (20 sources) Start: 02-04-2023 End: 07-23-2024 Selenium Sulfide 2.25 % sham Apply to affected area once daily. 180 mL 3 05/08/2024 07/23/2024 Discontinued Start: 10-06-2022 Selenium Sulfi de 2.25 % sham Apply to affected area once daily. 180 mL 3 10/06/2022 Active Start: 10-27-2021 Selenium Sulfi de 2.25 % shampoo Active 1 NMA TOPICAL TWICE A WEEK October 27, 2021 12:00am Start: 06-24-2021 End: 10-03-2022 Selenium Sulfide 2.25 % sham Apply to affected area once daily. 180 mL 3 06/24/2021 04/07/2022 Discontinued Comment on above: Apply to affected ar ea once daily. triamcinolone acetonide 0.001 mg/mg topical ointment (20 sources) Corticosteroid Start: 05-03-2023 End: 04-17-2024 triamcinolone acetonide (KENALOG) 0.1 % ointment Apply to affected area two times a day. 30 g 05/03/2023 04/17/2024 Discontinued (Course of therapy completed) Start: 07-31-2021 End: 07-31-2021 triamcinolone acetonide 80 m g injection (KENALOG 40) Start: 10-10-2018 End: 10-10-2018 Kenalog (triamcinolone aceto nide) 40 mg/mL suspension for injection Discontinued 80 MG INTRAARTIC ONCE 2 October 10, 2018 2:12pm October 10, 2018 2:52pm Comment on above: Apply to affected ar ea two times a day. urinary tract infection test ( ESSENTIALS UTI MISC) (20 sources) End: 02-06-2024 urinary tract infection test ( ESSENTIALS UTI MISC) Cranberry supplement 02/06/2024 Discontinued urinary tract in fection test ( ESSENTIALS UTI MISC) Cranberry supplement Active urinary tract in fection test (VH ESSENTIALS UTI MISC) Cranberry supplement 0 Active Comment on above: Cranberry supplement Problems Active Problems Problem Classification Problem Date Documented Date Episodic/Chronic Acute bronchitis (15 sources) Acute bronchitis; Translations: [Acute bronchitis, unspecified] 09-11-2021 Episodic Anal and rectal conditions (1 source) Anal fissure; Translations: [Anal fissure, unspecified] 07-15-2023 Episodic Anxiety disorders (20 sources) Posttraumatic stress disorder; [...] [Ventricular premature depolarization] Onset: 09-03-2011 05-04-2021 Chronic Conduction disorders (1 source) Ventricular bigeminy 10-06-2024 Chronic Contraceptive and procreative management (1 source) Intrauterine contraceptive device in situ; Translations: [Encounter for routine checking of intrauterine contraceptive device] 02-15-2024 Episodic Disorders of lipid metabolism (20 sources) Mixed hyperlipidemia; Translations: [Mixed hyperlipidemia] Onset: 10-06-2010 02-28-2017 Chronic Disorders of teeth and jaw (16 sources) Dental caries; Translations: [Dental caries, unspecified] Episodic Disorders usually diagnosed in infancy, childhood, or adolescence (17 sources) Motor tic disorder; Translations: [Tourette's disorder] Chronic Esophageal disorders (20 sources) Gastroesophageal reflux disease; Translations: [Gastro-esophageal reflux disease without esophagitis] Onset: 09-18-2014 09-18-2014 Chronic Essential hypertension (20 sources) Essential hypertension; Translations: [Essential (primary) hypertension] Onset: 07-06-2020 07-06-2020 Chronic Genitourinary symptoms and ill-defined conditions (5 sources) Increased frequency of urination; Translations: [Frequency of micturition] 03-17-2024 Episodic Hemorrhoids (2 sources) Hemorrhoids; Translations: [Unspecified hemorrhoids] 06-16-2023 Episodic Immunizations and screening for infectious disease (20 sources) Patient encounter status; Translations: [Encounter for screening for COVID-19] 09-11-2021 Episodic Joint disorders and dislocations; trauma-related (20 sources) Patellofemoral disorders, left knee; Translations: [Unspecified disorder of joint, lower leg] 09-15-2022 Chronic Joint disorders and dislocations; trauma-related (4 sources) Patellofemoral disorders, right knee; Translations: [Pain in joint, lower leg] 02-15-2023 Chronic Malaise and fatigue (3 sources) Fatigue; Translations: [Other fatigue] Onset: 09-06-2024 09-06-2024 Episodic Menstrual disorders (1 source) Dysmenorrhea; Translations: [Dysmenorrhea, unspecified] 12-14-2023 Chronic Mood disorders (1 source) Mood disorders; Translations: [Anxiety and depression] Onset: 11-05-2024 Noninfectious gastroenteritis (15 sources) Gastroenteritis; Translations: [Noninfective gastroenteritis and colitis, unspecified] 09-11-2021 Episodic Nonmalignant breast conditions (5 sources) Discharge from nipple; Translations: [Nipple discharge] 09-07-2023 Episodic Nonspecific chest pain (1 source) Chest pain; Translations: [Chest pain, unspecified] Episodic Nutritional deficiencies (2 sources) Vitamin D deficiency; Translations: [Vitamin D deficiency, unspecified] Onset: 09-06-2024 09-06-2024 Chronic Other connective tissue disease (2 sources) Tendonitis of right shoulder; Translations: [Other enthesopathies, not elsewhere classified] Episodic Other connective tissue disease (2 sources) Impingement syndrome of right shoulder region; Translations: [Impingement syndrome of right shoulder] Episodic Other connective tissue disease (15 sources) Lateral epicondylitis; Translations: [Lateral epicondylitis, unspecified elbow] 01-10-2015 Episodic Other connective tissue disease (2 sources) Mass of soft tissue; Translations: [Other specified soft tissue disorders] Episodic Other connective tissue disease (2 sources) Swelling of upper limb; Translations: [Other specified soft tissue disorders] Episodic Other connective tissue disease (5 sources) Iliotibial band syndrome, left leg; Translations: [Other disorders of muscle, ligament, and fascia] Onset: 08-02-2022 07-27-2022 Episodic Other connective tissue disease (4 sources) Other bursitis of knee, left knee; Translations: [Pes anserinus tendinitis or bursitis] Onset: 08-02-2022 07-27-2022 Episodic Other connective tissue disease (9 sources) Iliotibial band friction syndrome of left knee; Translations: [Iliotibial band syndrome, left leg] 07-27-2022 Episodic Other ear and sense organ disorders (1 source) Acute otitis externa of left ear; Translations: [Unspecified acute noninfective otitis externa, left ear] 03-17-2024 Episodic Other female genital disorders (1 source) Other specified noninflammatory disorders of vagina; Translations: [Other specified noninflammatory disorders of vagina] Onset: 12-23-2022 Episodic Other female genital disorders (1 source) Pruritus of vagina; Translations: [Other specified noninflammatory disorders of vagina] 12-14-2023 Episodic Other female genital disorders (1 source) Vulval irritation; Translations: [Other specified noninflammatory disorders of vulva and perineum] 12-14-2023 Episodic Other hereditary and degenerative nervous system conditions (20 sources) Blepharospasm of right eyelid; Translations: [Blepharospasm] Onset: 03-10-2021 03-10-2021 Chronic Other infections; including parasitic (15 sources) Infestation by Sarcoptes scabiei tiffanie hominis; Translations: [Scabies] 06-18-2019 Episodic Other inflammatory condition of skin (15 sources) Scalp psoriasis; Translations: [Psoriasis, unspecified] 06-18-2019 Chronic Other lower respiratory disease (2 sources) Cough; Translations: [Cough] Episodic Other lower respiratory disease (3 sources) Cough; Translations: [Acute cough] 04-17-2024 Episodic Other lower respiratory disease (3 sources) Wheezing; Translations: [Wheezing] 07-23-2024 Episodic Other lower respiratory disease (3 sources) Dyspnea; Translations: [Shortness of breath] 07-23-2024 Episodic Other nervous system disorders (20 sources) Chronic pain; Translations: [Other chronic pain] Onset: 06-22-2013 06-22-2013 Chronic Other nervous system disorders (20 sources) Complex regional pain syndrome type I of right upper limb; Translations: [Complex regional pain syndrome I of right upper limb] Onset: 03-10-2018 03-10-2018 Chronic Other nervous system disorders (7 sources) Ulnar neuropathy; Translations: [Lesion of ulnar nerve, right upper limb] 07-15-2021 Chronic Other nervous system disorders (19 sources) Neuropathy; Translations: [Polyneuropathy, unspecified] Onset: 11-07-2024 04-27-2021 Chronic Other nervous system disorders (3 sources) Other chronic pain; Translations: [Other chronic pain] Onset: 07-09-2022 Chronic Other nervous system disorders (1 source) Disorder of the autonomic nervous system, unspecified; Translations: [Disorder of the autonomic nervous system, unspecified] Onset: 07-09-2022 Chronic Other nervous system disorders (8 sources) Lesion of ulnar nerve, right upper limb; Translations: [Ulnar neuropathy at elbow of right upper extremity] 07-15-2021 Chronic Other nervous system disorders (1 source) Complex regional pain syndrome I of right upper limb; Translations: [Complex regional pain syndrome type 1 of right upper extremity] Onset: 03-10-2018 Chronic Other nervous system disorders (4 sources) Disorder of autonomic nervous system; Translations: [Disorder of the autonomic nervous system, unspecified] Onset: 12-27-2018 11-07-2024 Chronic Other nervous system disorders (15 sources) Numbness; Translations: [Anesthesia of skin] 04-27-2021 Episodic Other nervous system disorders (17 sources) Trigeminal nerve disorder; Translations: [Disorder of trigeminal nerve, unspecified] Episodic Other nervous system disorders (4 sources) Disorder of trigeminal nerve, unspecified; Translations: [Trigeminal nerve disorder, unspecified] Episodic Other nervous system disorders (1 source) Eyelid [...] right shoulder] Episodic Other non-traumatic joint disorders (7 sources) Shoulder pain; Translations: [Pain in right shoulder] Episodic Other non-traumatic joint disorders (13 sources) Pain in right shoulder; Translations: [Pain in joint, shoulder region] Onset: 03-23-2022 Episodic Other non-traumatic joint disorders (1 source) Pain of right shoulder joint; Translations: [Pain in right shoulder] Episodic Other non-traumatic joint disorders (2 sources) Pain in elbow; Translations: [Pain in left elbow] Episodic Other non-traumatic joint disorders (4 sources) Pain in left knee; Translations: [Pain in joint, lower leg] Onset: 08-02-2022 07-27-2022 Episodic Other nutritional; endocrine; and metabolic disorders (20 sources) Obesity; Translations: [Obesity, unspecified] Onset: 09-03-2011 09-03-2011 Chronic Other nutritional; endocrine; and metabolic disorders (20 sources) Obese class II; Translations: [Obesity, unspecified] Onset: 07-09-2020 07-09-2020 Chronic Other nutritional; endocrine; and metabolic disorders (1 source) Body mass index (BMI) 38.0-38.9, adult; Translations: [Body mass index [BMI] 38.0-38.9, adult] Onset: 07-09-2022 Chronic Other nutritional; endocrine; and metabolic disorders (9 sources) Morbid obesity; Translations: [Morbid (severe) obesity due to excess calories] 01-26-2023 Chronic Other skin disorders (2 sources) Hidradenitis suppurativa; Translations: [Hidradenitis suppurativa] 08-16-2023 Episodic Other upper respiratory disease (20 sources) Non-allergic rhinitis; Translations: [Chronic rhinitis] Onset: 12-13-2018 12-13-2018 Chronic Other upper respiratory disease (4 sources) Hoarse; Translations: [Dysphonia] Onset: 02-14-2024 02-14-2024 Episodic Other upper respiratory disease (3 sources) Contact ulcer of vocal folds; Translations: [Other diseases of vocal cords] Onset: 02-14-2024 02-14-2024 Episodic Other upper respiratory disease (4 sources) Other diseases of vocal cords; Translations: [Other diseases of vocal cords] Onset: 02-14-2024 Episodic Other upper respiratory disease (4 sources) Dysphonia; Translations: [Dysphonia] Onset: 02-14-2024 Episodic Other upper respiratory disease (1 source) Lesion of vocal cord; Translations: [Other diseases of vocal cords] 04-03-2024 Episodic Other upper respiratory disease (1 source) Nasal congestion; Translations: [Nasal congestion] 07-01-2024 Episodic Other upper respiratory infections (1 source) Bacterial sinusitis; Translations: [Chronic sinusitis, unspecified] Chronic Residual codes; unclassified (2 sources) FH: Congenital anomaly; Translations: [Family history of other congenital malformations, deformations and chromosomal abnormalities] 05-25-2024 Episodic Residual codes; unclassified (1 source) Tobacco user; Translations: [Tobacco use] 11-05-2024 Episodic Residual codes; unclassified (1 source) Tobacco use; Translations: [Tobacco abuse] Onset: 11-05-2024 Episodic Skin and subcutaneous tissue infections (16 sources) Impetigo; Translations: [Impetigo, unspecified] 10-08-2020 Episodic Spondylosis; intervertebral disc disorders; other back problems (20 sources) Displacement of cervical intervertebral disc; Translations: [Other cervical disc displacement, unspecified cervical region] Onset: 08-05-2011 Resolved: 09-03-2011 06-22-2013 Chronic Spondylosis; intervertebral disc disorders; other back problems (15 sources) Neck pain; Translations: [Cervicalgia] Episodic Sprains and strains (2 sources) Traumatic rupture of rotator cuff; Translations: [Strain of muscle(s) and tendon(s) of the rotator cuff of right shoulder, initial encounter] Episodic Syncope (8 sources) Near syncope; Translations: [Syncope and collapse] Onset: 09-20-2024 09-06-2024 Episodic Thyroid disorders (20 sources) Thyroid nodule; Translations: [Nontoxic single thyroid nodule] Onset: 03-16-2010 05-04-2021 Chronic Unclassified (2 sources) Hoarseness; Translations: [Hoarseness] Onset: 03-20-2024 Unclassified (1 source) Acute cough; Translations: [Acute cough] Onset: 07-23-2024 Past or Other Problems Problem Classification Problem Date Documented Da te Episodic/Chronic Cardiac dysrhythmias (20 sources) Palpitations; Translations: [Palpitations] Onset: 09-18-2014 07-06-2020 Episodic Chronic obstructive pulmonary disease and bronchiectasis (20 sources) Bronchitis; Translations: [Bronchitis, not specified as acute or chronic] Onset: 06-24-2010 Resolved: 09-03-2011 09-03-2011 Episodic Complications of surgical procedures or medical care (20 sources) Non-healing surgical wound; Translations: [Other complications of procedures, not elsewhere classified, initial encounter] Onset: 01-16-2008 Resolved: 04-30-2009 04-30-2009 Episodic Conditions associated with dizziness or vertigo (20 sources) Dizziness; Translations: [Dizziness and giddiness] Onset: 03-10-2021 03-10-2021 Episodic E Codes: Fall (1 source) Fall on same level from slipping, tripping and stumbling with subsequent striking against furniture, initial encounter; Translations: [Fall on same level from slipping, tripping and stumbling with subsequent striking against furniture, initial encounter] Onset: 03-23-2022 Episodic Early or threatened labor (20 sources) False labor; Translations: [False labor, unspecified] Onset: 11-19-2008 Resolved: 04-30-2009 04-30-2009 Episodic Inflammatory diseases of female pelvic organs (20 sources) Acute vaginitis; Translations: [Acute vaginitis] Onset: 08-29-2012 Resolved: 06-13-2018 06-16-2023 Episodic Influenza (20 sources) Influenza due to Influenza A virus; Translations: [Influenza due to other identified influenza virus with other respiratory manifestations] Onset: 03-10-2021 03-10-2021 Episodic Lymphadenitis (20 sources) Cervical lymphadenopathy; Translations: [Localized enlarged lymph nodes] Onset: 03-16-2010 Resolved: 07-15-2011 07-15-2011 Episodic Mycoses (20 sources) Candidiasis of mouth and esophagus; Translations: [Candidal esophagitis] Onset: 03-10-2021 Resolved: 11-07-2024 03-10-2021 Episodic Other and unspecified benign neoplasm (20 sources) Benign neoplasm of skin of trunk; Translations: [Other benign neoplasm of skin of trunk] Onset: 03-14-2009 Resolved: 10-06-2010 10-06-2010 Episodic Other complications of (20 sources) Iron deficiency anemia of ; Translations: [Anemia complicating , unspecified trimester] Onset: 10-20-2011 Resolved: 02-18-2012 05-04-2021 Chronic Other connective tissue disease (2 sources) Iliotibial band friction syndrome; Translations: [Iliotibial band syndrome, left leg] Onset: 08-02-2022 07-27-2022 Episodic Other female genital disorders (20 sources) Vaginal discharge; Translations: [Other specified noninflammatory disorders of vagina] Onset: 12-07-2012 Resolved: 10-02-2013 10-02-2013 Episodic Other gastrointestinal disorders (1 source) Other [...] shoulder, initial encounter] Onset: 03-23-2022 Episodic Other lower respiratory disease (20 sources) Snoring; Translations: [Snoring] Onset: 09-29-2009 Resolved: 07-15-2011 07-15-2011 Episodic Other lower respiratory disease (1 source) Wheezing; Translations: [Wheezing] Onset: 07-23-2024 Episodic Other lower respiratory disease (1 source) Shortness of breath; Translations: [Shortness of breath] Onset: 07-23-2024 Episodic Other nervous system disorders (20 sources) Facial paresthesia; Translations: [Paresthesia of skin] Onset: 03-10-2021 03-10-2021 Episodic Other non-traumatic joint disorders (20 sources) Shoulder joint pain; Translations: [Pain in unspecified shoulder] Onset: 01-25-2011 01-25-2011 Episodic Other non-traumatic joint disorders (1 source) Effusion, left knee; Translations: [Effusion, left knee] Onset: 07-09-2022 Episodic Other non-traumatic joint disorders (20 sources) Pain of left wrist; Translations: [Pain in left wrist] Onset: 05-06-2015 Resolved: 02-17-2016 02-17-2016 Episodic Other non-traumatic joint disorders (20 sources) Pain of right wrist; Translations: [Pain in right wrist] Onset: 05-06-2015 Resolved: 02-17-2016 02-17-2016 Episodic Other screening for suspected conditions (not mental disorders or infectious disease) (20 sources) Echocardiogram abnormal; Translations: [Abnormal findings on diagnostic imaging of heart and coronary circulation] Onset: 12-29-2018 12-29-2018 Episodic Other skin disorders (20 sources) Disorder of skin and/or subcutaneous tissue; Translations: [Disorder of the skin and subcutaneous tissue, unspecified] Onset: 03-01-2009 Resolved: 07-15-2011 07-15-2011 Episodic Other upper respiratory infections (20 sources) Acute sinusitis; Translations: [Acute sinusitis, unspecified] Onset: 03-10-2021 03-10-2021 Episodic Pneumonia (except that caused by tuberculosis or sexually transmitted disease) (4 sources) Community acquired pneumonia; Translations: [Pneumonia, unspecified organism] Onset: 05-23-2024 04-17-2024 Episodic Residual codes; unclassified (15 sources) History of cardiac catheterization; Translations: [Other specified postprocedural states] Onset: 05-09-2007 06-18-2019 Episodic Substance-related disorders (20 sources) Tobacco dependence in remission; Translations: [Nicotine dependence, unspecified, in remission] Onset: 06-24-2010 Resolved: 11-05-2024 06-24-2021 Chronic Superficial injury; contusion (20 sources) Contusion of right shoulder, initial encounter; Translations: [Right wrist contusion] Onset: 07-29-2015 Resolved: 02-17-2016 02-17-2016 Episodic Unclassified (2 sources) Onset: 02-15-2024 Resolved: 03-20-2024 02-15-2024 Viral infection (20 sources) Molluscum contagiosum infection; Translations: [Molluscum contagiosum] Onset: 12-02-2009 Resolved: 07-15-2011 Episodic Results Test Name Value Interpretation Reference Range Facility [facility] 12-13-2024 IRA Telephone (AGCARDPOB ) MIRYAMBRIA ([id number]) 1985 F Date Time Provider Department 12/13/24 CLIFTON SCHNEIDER During your visit today, we recorded the following information about you: Terese Mcneil 12/13/2024 2:43 PM Addendum Patient is scheduled for an ILR Implant on 01/[address] Schneider The hospital will call the day before between 2-5pm with your arrival time. Patient will go home same day. Patient would like to be sedated for procedure. We discussed that she will need someone to drive her home after the procedure. Spoke with Bria Witt on December 13, 2024. Informed of instructions as stated above. Patient verbalized understanding. Terese Mcneil Allergies As of Date: 12/13/2024 Noted Allergy Reaction BEE VENOM PROTEIN (HONEY BEE) 05/30/2018 10 - Anaphylaxis Comments: none IV DYE (IODINE) 05/03/2023 10 - Anaphylaxis ADENOSINE 05/30/2018 5 - Intolerance Comments: paralyzed for 8 hours AMOXICILLIN TRIHYDRATE 09/11/2021 11 - Vomiting AUGMENTIN (AMOXICILLIN-POT CLAVUL*09/21/2010 11 - Vomiting CORTICOSTEROIDS (GLUCOCORTICOIDS) 05/30/2018 5 - Intolerance Comments: Joint swelling FEATHERS 05/30/2018 5 - Intolerance Comments: Allergic to bird dander POTASSIUM CLAVULANATE 05/30/2018 8 - GI Upset PREDNISONE 01/01/2010 7 - Swelling Comments: Severe joint and spine pain and unable to move- able to have injections of joints, just not spine SILVADENE (SILVER SULFADIAZINE) 01/17/2008 5 - Intolerance Comments: Dizziness/nausea SULFA (SULFONAMIDE ANTIBIOTICS) 02/20/2008 8 - GI Upset Date Reviewed: 11/08/2024 Reviewed by: Clifton Schneider MD - Fully Assessed Reason for Visit: Preparations For Procedures [899] Prescriptions as of 12/13/2024 - montelukast (SINGULAIR) 10 mg tablet Take 1 tablet by mouth daily at bedtime. - pravastatin (PRAVACHOL) 20 mg tablet Take 20 mg by mouth. - pyrroloquinoline quinone disod (XLO04-[id number] QUINONE ORAL) - albuterol HFA (PROVENTIL HFA, VENTOLIN HFA) 90 mcg/actuation inhaler Inhale 2 puffs as instructed every 4 hours as needed. - fluticasone (FLOVENT) 220 mcg/actuation inhaler Inhale 1 Puff as instructed two times a day. Shake well before use. Rinse mouth after use. - metroNIDAZOLE (METROGEL VAGINAL) 0.75 % (37.5mg/5 gram) Vaginal Gel Use 1 applicator vaginally twice per week. - albuterol (PROVENTIL) 2.5 mg /3 mL (0.083 %) nebulizer solution Use 3 mL via nebulizer every 4 hours as needed for wheezing/shortness of breath. Use over 5-15minutes. - levonorgestrel (MIRENA) 21 mcg/24 hr (8 yrs) 52 mg IUD 1 Each by INTRAUTERINE route as directed. - Nebulizer Accessories misc 1 Each as needed. - ibuprofen (MOTRIN) 800 mg tablet Take 1 tablet by mouth every 8 hours as needed for pain. Take with food. - omeprazole (PRILOSEC) 20 mg capsule TAKE 1 CAPSULE BY MOUTH 1/2 HOUR before breakfast - Nebulizers 1 Each as needed. Nebulizer with accessories/tubing - ubidecarenone (H2Q COQ10 ORAL) Take by mouth. 50mg x1 daily - nadolol (CORGARD) 20 mg tablet Take 0.5 tablets by mouth twice daily. - Lactobacillus acidophilus (FLORAJEN ACIDOPHILUS) 20 billion cell cap Take 460 mg by mouth once daily. - clonazePAM (KLONOPIN) 0.5 mg tablet Take 1 tablet by mouth four times daily as needed. - EPINEPHrine (EPIPEN) 0.3 mg/0.3 mL auto-injector Use as directed for allergic reaction. Seek emergent medical care immediately after use. - nitroglycerin sublingual (NITROQUICK) 0.4 mg SL tablet Dissolve 1 tablet under the tongue every 5 minutes as needed. - meclizine (ANTIVERT) 25 mg tab Take 25 mg by mouth twice daily as needed. - sertraline (ZOLOFT) 100 mg tablet Take 100 mg by mouth twice daily. Meds Comments as of 11/03/2009: Problem List As Of Date 12/13/2024 Noted Resolved Non-Healing Surgical Wound [T81.89XA] 01/16/2008 [...] 06/13/2018 Cervical disc displacement [M50.20] 06/22/2013 DDD (degen (more content not included)... Normal [facility] Jadon 11-28-2024 [facility] Telephone (ELISA ) BRIA WITT ([id number]) 1985 F Date Time Provider Department 11/28/24 LCIFTON SCHNEIDER During your visit today, we recorded the following information about you: Nga Adams LPN 11/28/2024 10:14 AM Signed Patient called [facility] to report she would like to move forward with implantable loop recorder. FREDDY Jimenez Robert A, MD 11/29/2024 5:43 PM Signed [facility] (EP) Procedure request submitted for implantable cardiac loop recorder insertion. I seem to recall that she would prefer sedation for the procedure but check with her and see. If she is okay being awake with just local anesthetic, which is what we do with majority of patients, then we can schedule that way. For now I requested anesthesiology support to provide moderate sedation. Clifton Schneider MD November 29, 2024 5:43 PM Clifton Schneider MD 11/29/2024 5:43 PM Signed Addended by: CLIFTON SCHNEIDER on: 11/29/2024 05:43 PM Modules accepted: Heike Concepcion LPN 11/30/2024 9:27 AM Signed Spoke to Ms. Witt about procedure request. Patient would prefer sedation as she feels it is to stressful for her to have the procedure and be fully awake for it with just local anesthetic. Heike Moore LPN Allergies As of Date: 11/28/2024 Noted Allergy Reaction BEE VENOM PROTEIN (HONEY BEE) 05/30/2018 10 - Anaphylaxis Comments: none IV DYE (IODINE) 05/03/2023 10 - Anaphylaxis ADENOSINE 05/30/2018 5 - Intolerance Comments: paralyzed for 8 hours AMOXICILLIN TRIHYDRATE 09/11/2021 11 - Vomiting AUGMENTIN (AMOXICILLIN-POT CLAVUL*09/21/2010 11 - Vomiting CORTICOSTEROIDS (GLUCOCORTICOIDS) 05/30/2018 5 - Intolerance Comments: Joint swelling FEATHERS 05/30/2018 5 - Intolerance Comments: Allergic to bird dander POTASSIUM CLAVULANATE 05/30/2018 8 - GI Upset PREDNISONE 01/01/2010 7 - Swelling Comments: Severe joint and spine pain and unable to move- able to have injections of joints, just not spine SILVADENE (SILVER SULFADIAZINE) 01/17/2008 5 - Intolerance Comments: Dizziness/nausea SULFA (SULFONAMIDE ANTIBIOTICS) 02/20/2008 8 - GI Upset Date Reviewed: 11/08/2024 Reviewed by: Clifton Schneider MD - Fully Assessed Reason for Visit: Patient Update [1234] Primary Visit Diagnosis:Palpitations [R00.2] Other Visit Diagnoses:Paroxysmal tachycardia (HCC) [I47.9] PVC (premature ventricular contraction) [I49.3] Dizziness [R42] Near syncope [R55] Order(s):SURGICAL REQUEST - ELECTIVE (12/2019) [[id number]] Order #: [id number]: 1 Prescriptions as of 11/30/2024 - montelukast (SINGULAIR) 10 mg tablet Take 1 tablet by mouth daily at bedtime. - pravastatin (PRAVACHOL) 20 mg tablet Take 20 mg by mouth. - pyrroloquinoline quinone disod (FKL03-[id number] QUINONE ORAL) - albuterol HFA (PROVENTIL HFA, VENTOLIN HFA) 90 mcg/actuation inhaler Inhale 2 puffs as instructed every 4 hours as needed. - fluticasone (FLOVENT) 220 mcg/actuation inhaler Inhale 1 Puff as instructed two times a day. Shake well before use. Rinse mouth after use. - metroNIDAZOLE (METROGEL VAGINAL) 0.75 % (37.5mg/5 gram) Vaginal Gel Use 1 applicator vaginally twice per week. - albuterol (PROVENTIL) 2.5 mg /3 mL (0.083 %) nebulizer solution Use 3 mL via nebulizer every 4 hours as needed for wheezing/shortness of breath. Use over 5-15minutes. - levonorgestrel (MIRENA) 21 mcg/24 hr (8 yrs) 52 mg IUD 1 Each by INTRAUTERINE route as directed. - Nebulizer Accessories misc 1 Each as needed. - ibuprofen (MOTRIN) 800 mg tablet Take 1 tablet by mouth every 8 hours as needed for pain. Take with food. - omeprazole (PRILOSEC) 20 mg capsule TAKE 1 CAPSULE BY MOUTH 1/2 HOUR before breakfast - Nebulizers 1 Each as needed. Nebulizer with accessories/tubing - ubidecarenone (H2Q COQ10 ORAL) Take by mouth. 50mg x1 daily - nadolol (CORGARD) 20 mg tablet Take 0.5 tablets by mouth twice daily. - Lactobacillus acidophilus (FLORAJEN ACIDOPHILUS) 20 billion cell cap Take 460 mg by mouth once daily. - clonazePAM (KLONOPIN) 0.5 mg tablet Take 1 tablet by mouth four times daily as needed. - EPINEPHrine (EPIPEN) 0.3 mg/0.3 mL auto-injector Use as directed for allergic reaction. Seek emergent medical care immediately after use. - nitroglycerin sublingual (NITROQUICK) 0.4 mg SL tablet Dissolve 1 tablet under the tongue every 5 minutes as needed. - meclizine (ANTIVERT) 25 mg tab Take 25 mg by mouth twice daily as needed. - sertraline (ZOLOFT) 100 mg tablet Take 100 mg by mouth twice daily. Meds Comments as of 11/03/2009: Problem List As Of Date 11/28/2024 Noted Resolved Non-Healing Surgical Wound [T81.89XA] 01/16/2008 04/30/2009 Other Threatened Labor, Antepartum [O47.9] 11/19/2008 04/30/2009 Unspecified disorder of skin and subcutaneous t*03/01/2009 (more content not included)... Normal [facility] CNOVon 11-08-2024 CNOV Office Visit (AGCARD POB) BRIA WITT ([id number]) 1985 F Date Time Provider Department 11/08/24 2:20 PM CLIFTON SCHNEIDER AGCARDPOCristian During your visit today, we recorded the following information about you: Pulse Blood pressure Weight 83/minute 116/80 98 kg Clifton Schneider MD 11/08/2024 6:15 PM Signed PRIMARY CARE PHYSICIAN: Koki Worthington [address] [place] [address] Patient Care Team: Koki Worthington MD as PCP - General (Internal Medicine) Adore Miller APRN.VELVET as Specialty Eyelet Row Marker (Cardiology) Briana Leggett APRN.VELVET as Clean Rice Broker (Internal Medicine) Gio Holguin MD as Specialty Eyelet Row Marker (Cardiology) CHIEF COMPLAINT: Follow up for arrhythmia HISTORY OF PRESENT ILLNESS: Ms. Witt is a 39 year old female who presents today for a cardiovascular medicine follow-up visit. 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 Patient/authorized sales representative public utilities agreed to proceed History from previous notes, edited as needed and/or generated by dictation with use of AI.: Patient Overview: Ms. Witt presents for repeat consultation for palpitations and intermittent tachycardia. She was evaluated by Dr. Schneider in the [facility] office outpatient clinic in July 2020 for the same issue. She is referred by the [facility]. When she was evaluated in 2020, she reported experiencing intermittent palpitations and tachycardia since about 2003 when she was approximately 18 years of age. She also experienced intermittent chest discomfort or pain. She reported rapid irregular heartbeats, sometimes associated with shortness of breath and feeling of anxiety. She acknowledged that anxiety probably plays a role in the episodes in one form or another. Potential triggering or exacerbating factors for her symptoms included stress and anxiety. There was some potential trigger from other factors, including caffeinated beverages and lack of sufficient sleep. She was experiencing symptoms frequently a couple of times a week. She was treated with a beta leonora, nadolol, and then over time switched to metoprolol. She considered the metoprolol to be somewhat helpful, but dosages were limited by low blood pressure and bradycardia. There was discussion during that visit as to the various arrhythmias that might have been recorded. Review of extensive medical records indicated that her symptoms of, skipped beats or, flutter beats seem to correlate with PVCs or premature ventricular contractions. Other symptoms, particularly chest discomfort, did not correlate with substantial arrhythmia. There were times that sinus tachycardia was recorded although an atrial tachycardia could not be entirely excluded. there was consideration of considering flecainide antiarrhythmic drug if optimal tolerated doses of the beta leonora were ineffective. She was evaluated by her primary care physician, Dr. Worthington, 11/05/2024. Her office notes indicate that Ms. Witt has been taking nadolol as needed for palpitations, it seems that metoprolol was discontinued over time due to inefficacy. Evidently, Ms. Witt reported that she had resumed smoking. reported daily pain. Evidently, she has complex regional pain syndrome. Diagnostic Results: - Echocardiogram (09/20/2024): - Normal left ventricular systolic function - LVEF: 56% - Mild concentric LVH - Normal atrial dimensions - No significant valvular abnormalities - Cardiac Monitoring (09/06/2024 - 09/20/2024): - Predominantly sinus rhythm - Minimum heart rate: 47 bpm - Maximum heart rate: 167 bpm - Average heart rate: 78 bpm - Two supraventricular tachycardia runs, fastest one being 5 beats duration with a maximum rate of 167 bpm, average 149 bpm - Supraventricular tachycardia detected within ?45 seconds of symptomatic patient events - Rare PACs and rare PVCs Items for Follow-Up Today: - Evaluation for arrhythmia by electrophysiology Interim History Dr. Schneider 11/08/2024: The patient is a 39-year-old female with a history of palpitations and intermittent tachycardia, presenting for repeat consultation. The patient was previously evaluated in 2020 for similar symptoms, which she has experienced since approximately 2003. At that time, she reported rapid, irregular heartbeats, sometimes associated with dyspnea and anxiety. Potential triggers included stress, anxiety, caffeine, and insufficient sleep. Cardiac testing, including an echocardiogram and stress testing, was unremarkable. She was treated with nadolol and later switched to metoprolol, which was somewhat helpful but limited by hypotension and bradycardia. Her symptoms of skipped beats or flutter beats (more content not included)... Normal [facility] ECG B/O W INTERP (MED OFFICE )on 11-08-2024 Sinus rhythm 77 bpm; normal conduction intervals (UT 140 ms, QRS 84 ms); QTc 418 ms; inferior T wave abnormality similar to previous EKGs [facility] CNOVon 11-05-2024 CNOV Office Visit (INTMWS ) MIRYAMBRIA ([id number]) 1985 F Date Time Provider Department 11/05/24 8:20 AM KOKI WORTHINGTON During your visit today, we recorded the following information about you: Pulse Blood pressure Weight 61/minute 108/63 100.1 kg Koki Worthington MD 11/05/2024 1:23 PM Signed Reason for Visit Follow up HPI Bria Witt is a 39-year-old female with a history of asthma, complex regional pain syndrome, and tachycardia, presenting for follow-up. Bria reports a series of illnesses since March, including three episodes of COVID-19, influenza A, and a gastrointestinal virus. She attributes these infections to increased exposure in hospital settings and the [facility], where she has spent significant time due to her grandson's NICU stay. She has been taking Emergen-C daily and has not experienced any illnesses in the past two months. She denies being immunocompromised but notes that her mother is, due to cancer and chemotherapy treatment. Bria reports daily pain from complex regional pain syndrome, which sometimes limits her ability to perform daily activities. She describes the pain as constant but variable in intensity, worsening with overexertion. She is currently taking nadolol as needed for tachycardia, initially prescribed by Dr. Harvey. She was previously on metoprolol, which was ineffective for her irregular heartbeats. The nadolol has caused her heart rate to drop below 60 bpm, with her watch recording a low of 41 bpm. She denies current symptoms of tachycardia. Bria has resumed smoking, with variable consumption. She reports daily use of her inhaler, especially in the mornings and during the summer due to heat and humidity. She experiences wheezing and chest tightness, triggered by strong smells, a sensitivity that developed in the past year. On good days, she only uses her Proventil inhaler. She is actively working on weight loss and strength training to better care for her medically complex grandson, who has multiple diagnoses, including a tracheostomy and G-tube. She reports a weight of 220 lbs, down from a high of 250 lbs, and notes that her clothes fit differently, suggesting muscle gain from her gym activities. Social History Tobacco Use Smoking status: Former Current packs/day: 0.00 Average packs/day: 0.5 packs/day for 20.4 years (10.2 ttl pk-yrs) Types: Cigarettes Start date: 01/24/2000 Quit date: 07/03/2020 Years since quittin.3 Smokeless tobacco: Former Quit date: 08/18/2018 Vaping Use Vaping status: Some Days Start date: 07/03/2020 Substances: Nicotine, Flavoring Devices: Pre-filled or refillable cartridge Substance Use Topics Alcohol use: Not Currently Comment: None since 2011 Drug use: Not Currently Types: Marijuana Comment: Not currrently- hx pot and opoids- none since age 15 Past medical history, appointments, medications, allergies reviewed. Pertinent Lab/Diagnostic Studies are reviewed and discussed today Current Outpatient Medications: albuterol HFA (PROVENTIL HFA, VENTOLIN HFA) 90 mcg/actuation inhaler fluticasone (FLOVENT) 220 mcg/actuation inhaler nadolol (CORGARD) 20 mg tablet montelukast (SINGULAIR) 10 mg tablet metroNIDAZOLE (METROGEL VAGINAL) 0.75 % (37.5mg/5 gram) Vaginal Gel albuterol (PROVENTIL) 2.5 mg /3 mL (0.083 %) nebulizer solution levonorgestrel (MIRENA) 21 mcg/24 hr (8 yrs) 52 mg IUD Nebulizer Accessories misc ibuprofen (MOTRIN) 800 mg tablet omeprazole (PRILOSEC) 20 mg capsule Nebulizers ubidecarenone (H2Q COQ10 ORAL) nadolol (CORGARD) 20 mg tablet Lactobacillus acidophilus (FLORAJEN ACIDOPHILUS) 20 billion cell cap clonazePAM (KLONOPIN) 0.5 mg tablet EPINEPHrine (EPIPEN) 0.3 mg/0.3 mL auto-injector nitroglycerin sublingual (NITROQUICK) 0.4 mg SL tablet meclizine (ANTIVERT) 25 mg tab sertraline (ZOLOFT) 100 mg tablet benzonatate (TESSALON PERLE) 100 mg capsule oxyCODONE-acetaminophen (PERCOCET) 5-325 mg tablet Health Maintenance Depression Screening Hepatitis B Vaccine(2 of 3 - 19+ 3-dose series) Mammogram Screening@ Review Of Systems Constitutional: (+) sleep disturbance Respiratory: (+) wheezing, (+) chest tightness Musculoskeletal: (+) musculoskeletal pain Physical Exam BP 108/63 (BP Site: Left Arm, BP Position: Sitting, BP Cuff Size: Regular Adult) Pulse 61 Wt 100.1 kg (220 lb 9.6 oz) LMP (LMP Unknown) SpO2 98% BMI 36.71 kg/m? GENERAL: NAD, alert and oriented. SKIN: Unremarkable, no rash or skin lesions. HEAD: Normocephalic. EYES: PERRLA, EOMI, conjunctiva clear. EARS: External ears normal, canals clear, TM's normal. NOSE/SINUSES: Nares normal. Septum midline. OROPHARYNX: Lips, mucosa, and tongue normal, good dentition. No oral lesions noted. NECK: Supple, no lymphadenopathy, normal thyroid, no carotid bruits. LUNGS: Clear (more content not included)... Normal [facility] Lipid 1996 panelon 5 Cholesterol [Mass/Vol] 189 mg/dL Normal <200 [facility] Comment on above: Order Comment: Speci men Type: BLOOD SPECIMENOrdering Facility: [facility] Address: [address] [place] [address] Result Comment: <200 mg/dL, Desirable 200-239 mg/dL, Borderline high >239 mg/dL, High Performed By: #### 2 4331-1 ####[facility] [id number] [address] [place] Cholesterol in HDL [Mass/Vol] 30 mg/dL Low >39 [facility] Comment on above: Order Comment: [facility] Type: BLOOD SPECIMENOrdering Facility: [facility] Address: [address] [place] [address] Result Comment: 40-5 9 mg/dL, Acceptable >59 mg/dL, High: Negative risk factor for coronary heart disease <40 mg/dL, Low: Positive risk factor for coronary heart disease Performed By: #### 2 4331-1 ####[facility] [id number] [place] [address] [place] Cholesterol in LDL [Mass/Vol] 142 mg/dL High <100 [facility] Comment on above: Order Comment: Speci men Type: BLOOD SPECIMENOrdering Facility: [facility] Address: [address] [place] [address] Result Comment: <100 mg/dL, Optimal 100-129 mg/dL, Near optimal/above optimal 130-159 mg/dL, Borderline high 160-189 mg/dL, High >189 mg/dL, Very high Secondary prevention optimal LDL Cholesterol levels are recommended to be <70 mg/dL LDL cholesterol is calculated using the Valdez-NIH equation. Performed By: #### 2 4331-1 ####[facility] LABIA [id number] [place] [address] [place] Cholesterol in LDL/Cholesterol in HDL [Mass ratio] 4.73 {ratio} High <2.54 [facility] Comment on above: Order Comment: Speci men Type: BLOOD SPECIMENOrdering Facility: [facility] Address: [address] [place] [address] Result Comment: Refe saniya: 1. National Cholesterol Education Program ATP III Guideline At-A-Glance Quick Desk Reference: National Heart, Lung, and Blood [place]. National Institutes of Health. 2001: NIH Publication No. 01-3305. 2. An International Atherosclerosis Society position paper: global recommendations for the management of dyslipidemia: executive summary, Atherosclerosis. 2014: 232(2):410-413. Performed By: #### 2 4331-1 ####[facility] LABIA [id number] [place] [address] [place] Cholesterol in VLDL [Mass/Vol] 17 mg/dL Normal <30 [facility] Comment on above: Order Comment: Speci men Type: BLOOD SPECIMENOrdering Facility: [facility] Address: [address] [place] [address] Performed By: #### 2 4331-1 ####[facility] LABIA [id number] [place] [id number] [place] Cholesterol non HDL [Mass/Vol] 159 mg/dL High <130 [facility] Comment on above: Order Comment: Speci men Type: BLOOD SPECIMENOrdering Facility: [facility] Address: [address] [place] [address] Result Comment: <130 mg/dL, Optimal 130-159 mg/dL, Near optimal/above optimal 160-189 mg/dL, Borderline high 190-219 mg/dL, High >219 mg/dL, Very high Secondary prevention optimal non HDL Cholesterol levels are recommended to be <100 mg/dL Performed By: #### 2 4331-1 ####[facility] LABCL[facility] [id number] [address] [place] [address] [place] Cholesterol.total/C holesterol in HDL [Mass ratio] 6.30 {ratio} High <5.10 [facility] Comment on above: Order Comment: Speci men Type: BLOOD SPECIMENOrdering Facility: [facility] Address: [address] [place] [address] Performed By: #### 2 4331-1 ####[facility] LABCL[facility] [id number] [address] [address] [place] FASTING TIME 10 hrs Normal [facility] Comment on above: Order Comment: Speci men Type: BLOOD SPECIMENOrdering Facility: [facility] Address: [address] [place] [address] Performed By: #### 2 4331-1 ####[facility] LABCL[facility] [id number] [place] [id number] [place] Triglyceride [Mass/Vol] 93 mg/dL Normal <150 [facility] Comment on above: Order Comment: Speci men Type: BLOOD SPECIMENOrdering Facility: [facility] Address: [address] [place] [address] Result Comment: <150 mg/dL, Normal 150-199 mg/dL, Borderline high 200-499 mg/dL, High >499 mg/dL, Very high Performed By: #### 2 4331-1 ####[facility] LABCLIA [id number] [address] [address] [place] Cardiology Visit Reporton Cardiology Visit Report [facility] [address] [place], [place] [id number] OFFICE VISIT Date of Service: 10/19/24 MR#: [id number] Acct: [id number] Name: BRIA WITT Rep #: [id number] : 1985 Provider: HOLLI Davis Age/Sex: 39/F Location: [facility] Status: Signed with Addenda ADDENDUM by HOLLI Broussard on 10/19/24 at 1238 Cardiology Exam Const Appearance: cooperative, healthy appearing, comfortable and no acute distress Nutritional Appearance: well nourished and obese Orientation: alert, awake and oriented x3 Head Head: normal to inspection Ears: hearing grossly normal bilaterally Nose: external nose normal Face and Sinus: face symmetric Mouth: moist mucous membranes Eyes General: appearance normal, both eyes and all related structures Eyelids: eyelids normal EOM: EOM intact bilaterally Neck Neck: normal visual inspection and no JVD Carotids: normal carotid upstroke Chest Chest inspection: normal inspection of the chest, symmetric chest movement and normal respiratory effort; Negative cough Auscultation: Bilateral: Clear to Auscultation Cardio Rate: regular rate Rhythm: regular rhythm Heart sounds: S1 normal and S2 normal; Negative rub, gallop or murmur GI GI: normal to inspection and obese Neuro General: patient alert, patient awake, patient oriented x3 and CN's II-XI intact bilaterally Skin Skin: no rashes or lesions noted Extremities Pulses: Normal: Right Posterior Tibial Pulse, Left Posterior Tibial Pulse, Right Radial Pulse and Left Radial Pulse Lower Extremity Edema: None: Bilateral Psych Psychological: normal affect Assessment and Plan Assessment and Plan (1) Palpitations: Status: Chronic (2) PVC's (premature ventricular contractions): Status: Chronic (3) Hyperlipidemia: Status: Chronic Qualifiers: Hyperlipidemia type: unspecified Qualified Code(s): E78.5 - Hyperlipidemia, unspecified (4) Essential hypertension: Status: Chronic Medications: New nebivolol (Bystolic) 2.5 mg PO QDAY 30 tabs 10RF Discontinued nadolol Discontinued Reason: Order Completed 10 mg (1/2 x 20 mg) PO .PRN PRN 30 tabs 12RF Palpitations Plan Details Follow Up: 10/19/24 (keep as is) 10/19/24 1238 A> Date Kailey Fairbanks cc: Dr. Koki Worthington MD * Signed HPI HPI History of Present Illness Details: This is a a 39-year old white female who presents for outpatient cardiovascular follow-up of a history of PVCs, palpitations, hypertension and hyperlipidemia. She has been evaluated by [facility] electrophysiology-Dr. Schneider. He recommended medical therapy. Pt is having fast HRs. This is almost daily. She is aware that this can be stress induced.She does use the nadolol as needed. She does not take this routinely d/t low Bp. She is has had near syncope with tunnel vision. This occurs with no reason that she can identify. She did not feel that her HR was elevated at this time. She did feel a squeezing sensation. She does try to keep herself hydrated. She has been dealing with a grandson who is medically complicated and has been in the NICU for the past 4 months. He should be coming home soon. PCP has worked this up with event monitor. She did have a 45 second run of SVT. PCP wanted her to see EP at [facility]. She is requesting to be seen here. I reviewed event monitor, do not see SVT Ducey sinus tachycardia. Intake Vital Signs 05/01/24 09:45 10/19/24 10:31 Height 5 ft 5 in 5 ft 5 in Weight: 222 lb 222 lb BMI 36.9 36.9 BP 120/85 H 126/79 H Blood Pressure Location Lt brachial Lt brachial Position Sitting Sitting Respiration 16 16 Pulse 79 60 Pulse Source Monitor Monitor Intake Visit Reasons: ABN HOLTER Social Work Coordinator Required: No Accompanied by: Self Allergies prednisone Allergy (Intermediate, Verified 10/19/24 10:33) Unknown silver sulfadiazine (From Silvadene) Allergy (Intermediate, Verified 10/19/24 10:33) Unknown bee venom protein (honey bee) Allergy (Verified 10/19/24 10:33) Unknown Corticosteroids (Glucocorticoids) (steriods) Allergy (Verified 10/19/24 10:33) NEEDS FOLLOW-UP Environmental Allergies: Uncoded Allergy (Verified 10/19/24 10:33) NEEDS FOLLOW-UP regadenoson Allergy (Verified 10/19/24 10:33) NEEDS FOLLOW-UP amoxicillin trihydrate (From Augmentin) Adverse Reaction (Verified 10/19/24 10:33) Nausea potassium clavulanate (From Augmentin) Adverse Reaction (Verified 10/19/24 10:33) Nausea Sulfa (Sulfonamide Antibiotics) Adverse Reaction (Verified 10/19/24 10:33) Nausea Medications ???Medication ???Instructions ???Recorded ???Confirmed ???Type clonazepam 0.5 mg tablet 0.5 mg PO 4X/DAY PRN Anxiety 06/1810/19/24 History (more content not included)... 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 Thank you. KIMBERLY Daly Joy, APRN.VELVET 10/05/2024 7:56 AM Signed There was a lot of symptomatic PVCs which are early ventricular contractions. These are not life threatening, but with the symptoms, I want her to follow up with cardiology. I know she has seen one in the past. Who is her antique jewelry repairer and when did she last see them? Thank you Briana Leggett APRN.Shawnee Rocha RN 10/05/2024 9:46 AM Signed Pt called and is notified of providers results and instructions. Pt voices understanding. She states she sees Adore Miller EXPERT MEDICAL WRITER with [facility]. She states he doesn't listen to her when she talks, and it's hard to get into them. She was asking if there was anyone the provider would recommend she go to. I let her know we have [employer] here, but they are only here on Mondays and it takes a long time to get in. KIMBERLY Varma Joy, APRN.VELVET 10/05/2024 1:01 PM Signed I have put in a cardiology consult. If she is willing to travel, she may be able to see a [facility] antique jewelry repairer sooner then waiting to see one in [place]. Thank you Briana Leggett APRN.VELVET ShahJed cruzie 10/06/2024 9:05 AM Signed Scheduled with Leslie on 11/08/2024 Allergies As of Date: 10/03/2024 Noted Allergy Reaction BEE VENOM PROTEIN (HONEY BEE) 05/30/2018 10 - Anaphylaxis Comments: none IV DYE (IODINE) 05/03/2023 10 - Anaphylaxis ADENOSINE 05/30/2018 5 - Intolerance Comments: paralyzed for 8 hours AMOXICILLIN TRIHYDRATE 09/11/2021 11 - Vomiting AUGMENTIN (AMOXICILLIN-POT CLAVUL*09/21/2010 11 - Vomiting CORTICOSTEROIDS (GLUCOCORTICOIDS) 05/30/2018 5 - Intolerance Comments: Joint swelling FEATHERS 05/30/2018 5 - Intolerance Comments: Allergic to bird dander POTASSIUM CLAVULANATE 05/30/2018 8 - GI Upset PREDNISONE 01/01/2010 7 - Swelling Comments: Severe joint and spine pain and unable to move- able to have injections of joints, just not spine SILVADENE (SILVER SULFADIAZINE) 01/17/2008 5 - Intolerance Comments: Dizziness/nausea SULFA (SULFONAMIDE ANTIBIOTICS) 02/20/2008 8 - GI Upset Date Reviewed: 09/06/2024 Reviewed by: Briana Leggett APRN.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 - Fully Assessed Reason for Visit: Results [95] Primary Visit Diagnosis:Pre-syncope [R55] Other Visit Diagnoses:Paroxysmal tachycardia (HCC) [I47.9] Bigeminy [I49.8] Order(s):CONSULT TO CARDIOLOGY [9004] Order #: [id number]: 1 FUTURE Prescriptions as of 10/06/2024 - albuterol HFA (PROVENTIL HFA, VENTOLIN HFA) 90 mcg/actuation inhaler Inhale 2 puffs as instructed every 4 hours as needed. - fluticasone (FLOVENT) 220 mcg/actuation inhaler Inhale 1 Puff as instructed two times a day. Shake well before use. Rinse mouth after use. - benzonatate (TESSALON PERLE) 100 mg capsule Take 2 capsules by mouth three times a day as needed. - nadolol (CORGARD) 20 mg tablet Take 1 tablet by mouth once daily. - montelukast (SINGULAIR) 10 mg tablet Take 1 tablet by mouth daily at bedtime. - metroNIDAZOLE (METROGEL VAGINAL) 0.75 % (37.5mg/5 gram) Vaginal Gel Use 1 applicator vaginally twice per week. - albuterol (PROVENTIL) 2.5 mg /3 mL (0.083 %) nebulizer solution Use 3 mL via nebulizer every 4 hours as needed for wheezing/shortness of breath. Use over 5-15minutes. - levonorgestrel (MIRENA) 21 mcg/24 hr (8 yrs) 52 mg IUD 1 Each by INTRAUTERINE route as directed. - Nebulizer Accessories misc 1 Each as needed. - ibuprofen (MOTRIN) 800 mg tablet Take 1 tablet by mouth every 8 hours as needed for pain. Take with food. - omeprazole (PRILOSEC) 20 mg capsule TAKE 1 CAPSULE BY MOUTH 1/2 HOUR before breakfast - Nebulizers 1 Each as needed. Nebulizer with accessories/tubing - ubidecarenone (H2Q COQ10 ORAL) Take by mouth. 50mg x1 daily - oxyCODONE-acetaminophen (PERCOCET) 5-325 mg tablet Take 1-2 tablets by mouth as directed. Every 4-6 hours as needed for pain. - nadolol (CORGARD) 20 mg tablet Take 0.5 tablets by mouth twice daily. - Lactobacillus acidophilus (FLORAJEN ACIDOPHILUS) 20 billion cell cap Take 460 mg by mouth once daily. - clonazePAM (KLONOPIN) 0.5 mg tablet Take 1 tablet by mouth four times daily as needed. - EPINEPHrine (EPIPEN) 0.3 mg/0.3 mL auto-injector Use as directed for allergic reaction. Seek emergent medical care immediately after use. - nitroglycerin sublingual (NITROQUICK) 0.4 mg SL tablet Dissolve 1 tablet under the tongue every 5 minutes as needed. - meclizine (ANTIVERT) 25 mg tab Take 25 mg by mouth twice daily as needed. - sertraline (ZOLOFT) 100 mg tablet Take 100 mg by mouth twi (more content not included)... Normal [facility] ECHOon 09-20-2024 Echocardiography Echocardiography Rep ort: Transthoracic Echo [facility] Date of service: 09/20/2024 7:54:12 AM MACHINE OPERATOR Ordering physician: BRIANA LEGGETT Indication: Palpitations Technologist: Cinthya Chaidez [facility] Interpreting physician: Scot Lowe MD PATIENT: Name: MISS BRIA WITT : 1985 Age: 39 years Gender: F History of dyslipidemia. Primary rhythm: sinus. Height: 165.10 cm BSA: 2.14 m Weight: 99.79 kg BMI: 36.6 kg/m Heart rate 83 bpm Blood pressure 136/82 mmHg Color Doppler was utilized to interrogate the cardiac valves assessed and spectral Doppler was utilized to determine the flow velocities and pressure gradients reported in this exam. Myocardial strain analysis was performed in this exam to aid in the assessment of cardiac function. MEASUREMENTS: Value Indexed Normal Max aortic dimension 3.4 cm Ao < 3.8 Left atrial volume 62 ml (biplane A-L) 29 ml/m Rhonda <= 34 LV ID (diastole) 4.6 cm (2D) 2.16 cm/m LV ID (systole) 3.2 cm (2D) 1.52 cm/m IVS, leaflet tips 1.2 cm (2D) Posterior wall thickness 1.2 cm (2D) Left ventricular mass 198 g (2D) 92 g/m Global peak long strain -17.7 % LV stroke volume 76 ml (2D biplane) LV end diastolic volume 136 ml (2D biplane) 63.4 ml/m 29<=EDVi<62 LV end systolic volume 60 ml (2D biplane) 27.9 ml/m Ejection Fraction 56 % (2D biplane) EF > 54 FINDINGS: LEFT VENTRICLE The left ventricle is mildly dilated. There is mild concentric left ventricular hypertrophy. Left ventricular systolic function is normal. Global LV myocardial strain is normal. Normal left ventricular diastolic function. Mitral annular lateral E/e': 5.0. Mitral annular septal E/e': 8.8. Wall Motion: All scored segments are normal. RIGHT VENTRICLE The right ventricle is normal in size. Right ventricular systolic function is normal. RV systolic tissue Doppler velocity is 11.0 cm/s. Tricuspid annular displacement is 2.2 cm. Estimated right atrial pressure is 3 mmHg (although IVC not seen). LEFT ATRIUM The left atrial cavity is normal in size. Pulmonary Veins: The pulmonary venous pattern showed normal systolic flow. RIGHT ATRIUM The right atrial cavity is normal in size. Inferior Vena Cava: The inferior vena cava appears normal measuring 1.8 cm. MITRAL VALVE The mitral valve leaflets are structurally normal. There is no mitral valve regurgitation. The pressure half time is 57 msec. The peak mitral E/A ratio is 1.18. The average mitral E/e' ratio is 6.9. The mitral flow deceleration time is 196 msec. TRICUSPID VALVE The tricuspid valve leaflets are structurally normal. There is no tricuspid valve regurgitation. AORTIC VALVE The aortic valve cusps are structurally normal. There is no aortic valve regurgitation. The peak gradient is 13 mmHg (peak velocity = 177.5 cm/s). PULMONIC VALVE The pulmonic valve cusps are structurally normal. There is no pulmonic valve regurgitation. AORTA The visualized aorta is normal in size. Measurements - Mid ascending aorta 3.4 cm. INTERATRIAL SEPTUM The interatrial septum is mobile. There is no evidence of intracardiac shunting as detected by Doppler. PERICARDIUM There is no pericardial effusion. There is an epicardial fat pad. CONCLUSIONS: - Exam indication: Palpitations - The left ventricle is mildly dilated. There is mild concentric left ventricular hypertrophy. Left ventricular systolic function is normal. EF = 56 5% (2D biplane) Normal left ventricular diastolic function. - The right ventricle is normal in size. Right ventricular systolic function is normal. - There are no significant valvular abnormalities. - Exam was compared with the prior echocardiographic exam performed on 01/16/2019, no significant change. * * * Final * * * [employer] Medical Image : [id number] Normal [facility] 25(OH)D3 [facility] 2024 25-hydroxyvitamin D3 [Mass/Vol] 29.2 ng/mL Low 31.0-80.0 [facility] Comment on above: Order Comment: Speci men Type: BLOOD SPECIMENOrdering Facility: [facility] Address: [address] [place] [address] [place] [address] Result Comment: Clas sification of 25 OH Vitamin D status: Deficiency/Insufficiency: < or = 30 ng/ml. Sufficiency/Optimal Levels: 31-80 ng/mL Toxicity: > 100 ng/mL. Test performed by chemiluminescent immunoassay. Performed By: #### 1 989-3 ####[facility] LABCLIA [id number] [address] [place] Bacteria Ur Culton Bacteria identified Cx Nom (U) ORGANISM ID: 1 10,000 -<50,000 CFU/ml Normal urogenital wilian Normal [facility] Comment on above: Performed By: #### 6 30-4 ####[facility] LABIA [id number] [address] [place] [facility] CBC W Auto Differential pane l (Bld)on 09-06-2024 Basophils (Bld) [#/Vol] 0.05 10*3/uL [facility] Basophils/100 WBC (Bld) 0.4 % [facility] Differential cell count method Nom (Bld) Auto [facility] Eosinophils (Bld) [#/Vol] 0.05 10*3/uL [facility] Eosinophils/100 WBC (Bld) 0.4 % [facility] Erythrocyte distribution width (RBC) [Ratio] 14.7 % 11.5 - 15.0 % [facility] Hematocrit (Bld) [Volume fraction] 42.6 % 36.0 - 46.0 % [facility] Hemoglobin (Bld) [Mass/Vol] 13.5 g/dL 11.5 - 15.5 g/dL [facility] Immature granulocytes (Bld) [#/Vol] 0.04 10*3/uL [facility] Immature granulocytes/100 WBC (Bld) 0.3 % [facility] Interpretation and review of laboratory results Abnormal [facility] Lymphocytes (Bld) [#/Vol] 2.01 10*3/uL [facility] Lymphocytes/100 WBC (Bld) 17.4 % [facility] MCH (RBC) [Entitic mass] 27.6 pg 26.0 - 34.0 pg [facility] MCHC (RBC) [Mass/Vol] 31.7 g/dL 30.5 - 36.0 g/dL [facility] MCV (RBC) [Entitic vol] 86.9 fL 80.0 - 100.0 fL [facility] Monocytes (Bld) [#/Vol] 0.63 10*3/uL [facility] Monocytes/100 WBC (Bld) 5.5 % [facility] Neutrophils (Bld) [#/Vol] 8.76 10*3/uL High [facility] Neutrophils/100 WBC (Bld) 76 % [facility] Nucleated RBC (Bld) [#/Vol] [facility] Nucleated RBC/100 WBC (Bld) [Ratio] 0 % /100 WBC [facility] Platelet mean volume (Bld) [Entitic vol] 11.5 fL 9.0 - 12.7 fL [facility] Platelets (Bld) [#/Vol] 204 10*3/uL [facility] RBC (Bld) [#/Vol] 4.9 10*6/uL 3.90 - 5.2 0 m/uL [facility] WBC (Bld) [#/Vol] 11.54 10*3/uL High [facility] Basophils (Bld) [#/Vol] 0.05 10*3/uL Normal <0.11 [facility] Comment on above: Order Comment: Speci men Type: BLOOD SPECIMENOrdering Facility: [facility] Address: [address] [place] [address] Performed By: #### 5 7021-8 ####[facility] LABCLIA [id number] [address] [place] Basophils/100 WBC (Bld) 0.4 % Normal [facility] Comment on above: Order Comment: Speci men Type: BLOOD SPECIMENOrdering Facility: [facility] Address: [address] [place] [address] Performed By: #### 5 7021-8 ####[facility] LABCLIA [id number] [place] [address] [place] Differential cell count method Nom (Bld) Auto Normal [facility] Comment on above: Order Comment: Speci men Type: BLOOD SPECIMENOrdering Facility: [facility] Address: [address] [place] [address] Performed By: #### 5 7021-8 ####[facility] LABCLIA [id number] [place] [address] [place] Eosinophils (Bld) [#/Vol] 0.05 10*3/uL Normal <0.46 [facility] Comment on above: Order Comment: Speci men Type: BLOOD SPECIMENOrdering Facility: [facility] Address: [address] [place] [address] Performed By: #### 5 7021-8 ####[facility] LABCLIA [id number] [place] [address] [place] Eosinophils/100 WBC (Bld) 0.4 % Normal [facility] Comment on above: Order Comment: Speci men Type: BLOOD SPECIMENOrdering Facility: [facility] Address: [address] [place] [address] Performed By: #### 5 7021-8 ####[facility] LABCLIA [id number] [place] [address] [place] Erythrocyte distribution width (RBC) [Ratio] 14.7 % Normal 11.5-15.0 [facility] Comment on above: Order Comment: Speci men Type: BLOOD SPECIMENOrdering Facility: [facility] Address: [address] [place] [address] Performed By: #### 5 7021-8 ####[facility] LABCLIA [id number] [place] [id number] [place] Hematocrit (Bld) [Volume fraction] 42.6 % Normal 36.0-46.0 [facility] Comment on above: Order Comment: Speci men Type: BLOOD SPECIMENOrdering Facility: [facility] Address: [address] [place] [address] Performed By: #### 5 7021-8 ####[facility] LABCLIA [id number] [place] [address] [place] Hemoglobin (Bld) [Mass/Vol] 13.5 g/dL Normal 11.5-15.5 [facility] Comment on above: Order Comment: Speci men Type: BLOOD SPECIMENOrdering Facility: [facility] Address: [address] [place] [address] Performed By: #### 5 7021-8 ####[facility] LABCLIA [id number] [place] [address] [place] Immature granulocytes (Bld) [#/Vol] 0.04 10*3/uL Normal <0.10 [facility] Comment on above: Order Comment: Speci men Type: BLOOD SPECIMENOrdering Facility: [facility] Address: [address] [place] [address] Performed By: #### 5 7021-8 ####[facility] LABIA [id number] [place] [address] [place] Immature granulocytes/100 WBC (Bld) 0.3 % Normal [facility] Comment on above: Order Comment: Speci men Type: BLOOD SPECIMENOrdering Facility: [facility] Address: [address] [place] [address] Performed By: #### 5 7021-8 ####[facility] LABCLIA [id number] [place] [address] [place] Lymphocytes (Bld) [#/Vol] 2.01 10*3/uL Normal 1.00-4.00 [facility] Comment on above: Order Comment: Speci men Type: BLOOD SPECIMENOrdering Facility: [facility] Address: [address] [place] [address] Performed By: #### 5 7021-8 ####[facility] LABCLIA [id number] [place] [address] [place] Lymphocytes/100 WBC (Bld) 17.4 % Normal [facility] Comment on above: Order Comment: Speci men Type: BLOOD SPECIMENOrdering Facility: [facility] Address: [address] [place] [address] Performed By: #### 5 7021-8 ####[facility] LABIA [id number] [place] [address] [place] MCH (RBC) [Entitic mass] 27.6 pg Normal 26.0-34.0 [facility] Comment on above: Order Comment: Speci men Type: BLOOD SPECIMENOrdering Facility: [facility] Address: [address] [place] [address] Performed By: #### 5 7021-8 ####[facility] LABIA [id number] [place] [address] [place] MCHC (RBC) [Mass/Vol] 31.7 g/dL Normal 30.5-36.0 [facility] Comment on above: Order Comment: Speci men Type: BLOOD SPECIMENOrdering Facility: [facility] Address: [address] [place] [address] Performed By: #### 5 7021-8 ####[facility] LABIA [id number] [place] [address] [place] MCV (RBC) [Entitic vol] 86.9 fL Normal 80.0-100.0 [facility] Comment on above: Order Comment: Speci men Type: BLOOD SPECIMENOrdering Facility: [facility] Address: [address] [place] [address] Performed By: #### 5 7021-8 ####[facility] LABIA [id number] [place] [address] [place] Monocytes (Bld) [#/Vol] 0.63 10*3/uL Normal <0.87 [facility] Comment on above: Order Comment: Speci men Type: BLOOD SPECIMENOrdering Facility: [facility] Address: [address] [place] [address] Performed By: #### 5 7021-8 ####[facility] LABCLIA [id number] [facility] [place] [address] [place] Monocytes/100 WBC (Bld) 5.5 % Normal [facility] Comment on above: Order Comment: Speci men Type: BLOOD SPECIMENOrdering Facility: [facility] Address: [address] [place] [address] Performed By: #### 5 7021-8 ####[facility] LABCLIA [id number] [facility] [address], [place] [address] [place] Neutrophils (Bld) [#/Vol] 8.76 10*3/uL High 1.45-7.50 [facility] Comment on above: Order Comment: Speci men Type: BLOOD SPECIMENOrdering Facility: [facility] Address: [address] [place] [address] Performed By: #### 5 7021-8 ####[facility] LABCLIA [id number] [facility] [place] [address] [place] Neutrophils/100 WBC (Bld) 76.0 % Normal [facility] Comment on above: Order Comment: Speci men Type: BLOOD SPECIMENOrdering Facility: [facility] Address: [address] [place] [address] Performed By: #### 5 7021-8 ####[facility] LABCLIA [id number] [place] [address] [place] Nucleated RBC (Bld) [#/Vol] 10*3/uL Normal <0.01 [facility] Comment on above: Order Comment: Speci men Type: BLOOD SPECIMENOrdering Facility: [facility] Address: [address] [place] [address] Performed By: #### 5 7021-8 ####[facility] LABCLIA [id number] [address] [place] [address] [place] Nucleated RBC/100 WBC (Bld) [Ratio] 0.0 /100 WBC Normal [facility] Comment on above: Order Comment: Speci men Type: BLOOD SPECIMENOrdering Facility: [facility] Address: [address] [place] [address] Performed By: #### 5 7021-8 ####[facility] LABCLIA [id number] [address], [facility]95 [place] Platelet mean volume (Bld) [Entitic vol] 11.5 fL Normal 9.0-12.7 [facility] Comment on above: Order Comment: Speci men Type: BLOOD SPECIMENOrdering Facility: [facility] Address: [address] [place] [address] Performed By: #### 5 7021-8 ####[facility] LABIA [id number] [address], [facility]95 [place] Platelets (Bld) [#/Vol] 204 10*3/uL Normal 150-400 [facility] Comment on above: Order Comment: Speci men Type: BLOOD SPECIMENOrdering Facility: [facility] Address: [address] [place] [address] Performed By: #### 5 7021-8 ####[facility] LABCLIA [id number] [address] [place] [address] [place] RBC (Bld) [#/Vol] 4.90 10*6/uL Normal 3.90-5.20 [facility] Comment on above: Order Comment: Speci men Type: BLOOD SPECIMENOrdering Facility: [facility] Address: [address] [place] [address] Performed By: #### 5 7021-8 ####[facility] LABIA [id number] [address] [place] [address] [place] WBC (Bld) [#/Vol] 11.54 10*3/uL High 3.70-11.00 [facility] Comment on above: Order Comment: Speci men Type: BLOOD SPECIMENOrdering Facility: [facility] Address: [address] [place] [address] Performed By: #### 5 7021-8 ####[facility] LABCLIA [id number] [facility]ENTERCarrie RAMIREZ [address] OF [facility] CNOVon 09-06-2024 CNOV Office Visit (INTMWS ) MIRYAMSONNYBRIA ([id number]) 1985 F Date Time Provider Department 09/06/24 8:20 AM BRIANA LEGGETT During your visit today, we recorded the following information about you: Pulse Respiration Blood pressure Weight 78/minute 16/minute 124/68 99.8 kg Briana Leggett APRN.[facility] 09/06/2024 12:26 PM Signed CC: Patient presents with: Recheck: Follow up fatigue, continuing to get worse HPI Bria Fieldsleeleetrinidad is a 39 year old female who presents today for fatigue and almost passed out a week ago. Recording using [employer] software for draft documentation of the visit was discussed with the patient/authorized sales representative public utilities; all questions welcomed and answered. Patient/authorized sales representative public utilities agreed to proceed Fatigue: - Extreme fatigue x3 weeks, with 3-5 hour naps during the day despite sleeping through the night. - No recent illnesses since 3 different back to back respiratory illnesses in May through July. - No new medication changes; taking nadolol PRN for her paroxysmal tachycardia. - Denies snoring or observed apneic episodes during sleep. Near-Syncope: - Near-syncope episode within the last 7 days while bent over petting a cat. Unsure exactly what day - Experienced tunnel vision but was able to walk back to room and drink apple juice, which improved symptoms. - Suspects low blood sugar during the episode; has a history of low blood sugar with similar symptoms but unsure on exact cause Denies other symptoms during episode of chest pain, headaches, confusion, palpitations, dyspnea or other concerns. Paroxysmal Tachycardia: - History of paroxysmal tachycardia, managed with nadolol PRN. - No increase in palpitations or new cardiac symptoms. - No increase in respiratory symptom from asthnma; attributes recent mild symptoms to high pollen levels. - Denies increased coughing, wheezing, or dyspnea. - Occasional constipation, usually not an issue due to regular coffee consumption. - Darker urine noted, attributed to decreased water intake. - Chronic mild swelling in the left ankle, no new edema. . REVIEW OF SYSTEMS See HPI PAST MEDICAL HISTORY Diagnosis Date Abnormal uterine [...] prior urine tox screens negative. 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 Normal [facility] Comprehensive metabolic 2000 panelon 09-06-2024 Albumin [Mass/Vol] 4.4 g/dL Normal 3.9-4.9 [facility] Comment on above: Order Comment: Speci men Type: BLOOD SPECIMENOrdering Facility: [facility] Address: [address] [place] [address] Performed By: #### 2 4323-8, 9, 09369-5, 6-3 ####[facility] LABCLIA [id number] [address] [address] [place] ALP [Catalytic activity/Vol] 64 U/L Normal 34-123 [facility] Comment on above: Order Comment: Speci men Type: BLOOD SPECIMENOrdering Facility: [facility] Address: [address] [place] [address] Performed By: #### 2 4323-8, 2131-9, 21695-6, 6-3 ####[facility] LABCLIA [id number] [address] [address] [place] ALT [Catalytic activity/Vol] 16 U/L Normal 7-38 [facility] Comment on above: Order Comment: Speci men Type: BLOOD SPECIMENOrdering Facility: [facility] Address: [address] [place] [address] Performed By: #### 2 4323-8, 9, 53486-9, 6-3 ####[facility] LABCLIA [id number] [place] [address] [place] Anion gap [Moles/Vol] 9 mmol/L Normal 8-15 [facility] Comment on above: Order Comment: Speci men Type: BLOOD SPECIMENOrdering Facility: [facility] Address: [address] [place] [address] Performed By: #### 2 4323-8, 9, , 6-3 ####[facility] LABCLIA [id number] [place] [address] [place] AST [Catalytic activity/Vol] 16 U/L Normal 13-35 [facility] Comment on above: Order Comment: Speci men Type: BLOOD SPECIMENOrdering Facility: [facility] Address: [address] [place] [address] Performed By: #### 2 4323-8, 9, 06752-1, 6-3 ####[facility] LABCLIA [id number] [place] [address] [place] Bilirubin [Mass/Vol] mg/dL Low 0.2-1.3 [facility] Comment on above: Order Comment: Speci men Type: BLOOD SPECIMENOrdering Facility: [facility] Address: [address] [place] [address] Performed By: #### 2 4323-8, 9, 00734-7, 6-3 ####[facility] LABCLIA [id number] [address] [address] [place] Calcium [Mass/Vol] 9.2 mg/dL Normal 8.5-10.2 [facility] Comment on above: Order Comment: Speci men Type: BLOOD SPECIMENOrdering Facility: [facility] Address: [address] [place], [place] [address] Performed By: #### 2 4323-8, 9, 01543-8, 6-3 ####[facility] LABCLIA [id number] [place] [id number] [place] Chloride [Moles/Vol] 105 mmol/L Normal 98-107 [facility] Comment on above: Order Comment: Speci men Type: BLOOD SPECIMENOrdering Facility: [facility] Address: [address] [place] [address] Performed By: #### 2 4323-8, 9, , 6-3 ####[facility] LABCLIA [id number] [place] [address] [place] CO2 [Moles/Vol] 27 mmol/L Normal 22-30 [facility] Comment on above: Order Comment: Speci men Type: BLOOD SPECIMENOrdering Facility: [facility] Address: [address] [place] [address] Performed By: #### 2 4323-8, 9, , 6-3 ####[facility] LABCLIA [id number] [place] [address] [place] Creatinine [Mass/Vol] 0.60 mg/dL Normal 0.58-0.96 [facility] Comment on above: Order Comment: Speci men Type: BLOOD SPECIMENOrdering Facility: [facility] Address: [address] [place] [address] Performed By: #### 2 4323-8, 9, 01609-6, 6-3 ####[facility] LABCLIA [id number] [address] [address] OF [facility] Creatinine and Glomerular filtration rate.predicted panel (S/P/Bld) 116 mL/min/1.73m??? Normal >=60 [facility] Comment on above: Order Comment: Val sarmiento Type: BLOOD SPECIMENOrdering Facility: [facility] Address: [address] [place] [address] Result Comment: Denise mated Glomerular Filtration Rate (eGFR) is calculated using the 2020 CKD-EPI creatinine equation. This equation utilizes serum creatinine, sex, and age as parameters. The creatinine assay has traceable calibration to isotope dilution-mass spectrometry. Refer to KDIGO guidelines for clinical interpretation. In patients with unstable renal function, e.g. those with acute kidney injury, the eGFR may not accurately reflect actual GFR. Performed By: #### 2 4323-8, 9, , 3015-3 ####[facility] LABCLIA [id number] [place] [address] [place] Glucose [Mass/Vol] 90 mg/dL Normal 74-99 [facility] Comment on above: Order Comment: Val sarmiento Type: BLOOD SPECIMENOrdering Facility: [facility] Address: [address] [place] [address] Result Comment: The [place] Diabetes Association (ADA) provides guidance for cutoff values for fasting glucose and random glucose. The ADA defines fasting as no caloric intake for at least 8 hours. Fasting plasma glucose results between 100 to 125 mg/dL indicate increased risk for diabetes (prediabetes). Fasting plasma glucose results greater than or equal to 126 mg/dL meet the criteria for diagnosis of diabetes. In the absence of unequivocal hyperglycemia, results should be confirmed by repeat testing. In a patient with classic symptoms of hyperglycemia or hyperglycemic crisis, random plasma glucose results greater than or equal to 200 mg/dL meet the criteria for diagnosis of diabetes. Reference: Standards of Medical Care in Diabetes 2016, [place] Diabetes Association. Diabetes Care. 2016.39(Suppl 1). Performed By: #### 2 4323-8, 9, 47122-2, 6-3 ####[facility] LABCLIA [id number] [place] [id number] [address] [place] Potassium [Moles/Vol] 4.0 mmol/L Normal 3.7-5.1 [facility] Comment on above: Order Comment: Speci men Type: BLOOD SPECIMENOrdering Facility: [facility] Address: [address] [place], [place] [address] Performed By: #### 2 4323-8, 9, 15103-2, 6-3 ####[facility] LABCLIA [id number] [place] [place] AVENUECOTTAGE CHILDREN'S HOSPITALK [address] [place] [address] [place] Protein [Mass/Vol] 7.3 g/dL Normal 6.3-8.0 [facility] Comment on above: Order Comment: Speci men Type: BLOOD SPECIMENOrdering Facility: [facility] Address: [address] [place] [address] Performed By: #### 2 4323-8, 9, , 6-3 ####[facility] LABCLIA [id number] [facility] [address] [place] [address] [place] Sodium [Moles/Vol] 141 mmol/L Normal 136-144 [facility] Comment on above: Order Comment: Speci men Type: BLOOD SPECIMENOrdering Facility: [facility] Address: [address] [place], [place] [address] Performed By: #### 2 4323-8, 9, , 3015-3 ####[facility] LABCLIA [id number] [facility] [address] [place] [address] [place] Urea nitrogen [Mass/Vol] 8 mg/dL Normal 7-21 [facility] Comment on above: Order Comment: Speci men Type: BLOOD SPECIMENOrdering Facility: [facility] Address: [address] [place], [place] [address] Performed By: #### 2 4323-8, 9, 47320-8, 6-3 ####[facility] LABCLIA [id number] [facility] [id number] [facility] ECG COMPLETEon 09-06-2024 ECG COMPLETE Ventricular Rate : 6 9 BPM Atrial Rate : 69 BPM P-R Interval : 150 ms QRS Duration : 90 ms Q-T Interval : 370 ms QTC Calculation(Bazett) : 396 ms Calculated P Custer : 39 degrees Calculated R Custer : 15 degrees Calculated T Custer : 0 degrees NORMAL SINUS RHYTHM WITH SINUS ARRHYTHMIA NORMAL ECG Confirmed by ANATOLIY PÉREZ MD ([id number]) on 09/07/2024 6:02:23 PM NAME : BRIA WITT PID : [id number] : 1985 Gender : Female Race : ORD : [id number] Procedure Date : Sep 06 2024 08:47:49 Edit Date : Sep 07 2024 18:02:27 Diagnosis: NORMAL SINUS RHYTHM WITH SINUS ARRHYTHMIA NORMAL ECG Confirmed by ANATOLIY PÉREZ MD ([id number]) on 09/07/2024 6:02:23 PM Test Reason : R55 Pre-syncope Location : 185 : [facility] Overread By : ANATOLIY PÉREZ MD Edited By : ANATOLIY PÉREZ MD Referred By : , Acquired by : [id number], Normal [facility] Magnesium SerPl-mCncon 09-06 Magnesium [Mass/Vol] 2.0 mg/dL Normal 1.7-2.3 [facility] Comment on above: Order Comment: Speci men Type: BLOOD SPECIMENOrdering Facility: [facility] Address: [address] [place] [address] Performed By: #### 2 4323-8, 2132-9, 79190-5, 3016-3 ####[facility] LABCLIA [id number] [place] [id number] [facility] TSH SerPl-aCncon 09-06-2024 TSH Qn 0.822 m[IU]/L Normal 0.270-4.200 [facility] Comment on above: Order Comment: Pauloi men Type: BLOOD SPECIMENOrdering Facility: [facility] Address: [address] [place] [address] Result Comment: If t he patient is , TSH reference range varies by gestational period: First Trimester (weeks 9-12): 0.180-2.990 mIU/L Second Trimester: 0.110-3.980 mIU/L Third Trimester: 0.480-4.710 mIU/L Homero Mcintosh et al. A Practical Approach for the Verifications and Determination of Site- and Trimester-Specific Reference Intervals for Thyroid Function tests in . Thyroid, 2019:29:3:412-420. Ramsey Knight, et al. 2017 Guidelines of the [place] Thyroid Association for the Diagnosis and Management of Thyroid Disease during and the . Thyroid, 2017:27:3:315-389. Performed By: #### 2 4323-8, 2132-9, 07268-2, 3016-3 ####[facility] LABCLIA [id number] [place] [address] [place] UA DIP, URINE (POC)on 2024 BILIRUBIN UA (POCT) Negative Negative [facility] CLARITY UA (POCT) Clear [facility] COLOR UA (POCT) Yellow [facility] GLUCOSE UA (POCT) Negative Negative mg/dL [facility] Hemoglobin Ql (U) Trace-lysed Abnormal Negative [facility] Interpretation and review of laboratory results Abnormal [facility] KETONE UA (POCT) Negative Negative mg/dL [facility] LEUKOCYTES UA (POCT) Negative Negative [facility] NITRITE UA (POCT) Negative Negative [facility] PH UA (POCT) 7 4.5 - 8.0 [facility] Protein Ql (U) Negative Negative mg/dL [facility] SPECIFIC GRAVITY UA (POCT) 1.015 1.005 - 1.030 [facility] UROBILINOGEN UA (POCT) 0.2 Normal E.U./dL [facility] Location:[address], [place], [place], [address] [place] [address] POINT OF CARE [facility] Urinalysis complete panel (U )on 09-06-2024 Bacteria LM.HPF (Urine sed) [#/Area] Negative Normal Negative [facility] Comment on above: Order Comment: Speci men Type: URINE SPECIMENOrdering Facility: [facility] Address: [address] [place] [address] Performed By: #### 2 4356-8 ####[facility] LABCLIA [id number] [address] [place] [address] [place] Bilirubin Ql (U) Negative Normal Negative [facility] Comment on above: Order Comment: Speci men Type: URINE SPECIMENOrdering Facility: [facility] Address: [address] [place] [address] Performed By: #### 2 4356-8 ####[facility] LABCLIA [id number] [address] [place] [address] [place] Clarity (Unsp spec) Clear Normal Clear [facility] Comment on above: Order Comment: Speci men Type: URINE SPECIMENOrdering Facility: [facility] Address: [address] [place] [address] Performed By: #### 2 4356-8 ####[facility] LABCLIA [id number] [place] [id number] [place] [facility] Color (U) Yellow Normal Yellow [facility] Comment on above: Order Comment: Speci men Type: URINE SPECIMENOrdering Facility: [facility] Address: [address] [place] [address] Performed By: #### 2 4356-8 ####[facility] LABCLIA [id number] [address] [place] [address] [place] Epithelial cells LM.HPF (Urine sed) [#/Area] None Seen Normal [facility] Comment on above: Order Comment: Speci men Type: URINE SPECIMENOrdering Facility: [facility] Address: [address] [place], [place] [address] Performed By: #### 2 4356-8 ####[facility] LABCLIA [id number] [address] [place] [address] [place] Glucose Test strip (U) [Mass/Vol] Negative Normal Negative [facility] Comment on above: Order Comment: Speci men Type: URINE SPECIMENOrdering Facility: [facility] Address: [address] [place], [place] [address] Performed By: #### 2 4356-8 ####[facility] LABCLIA [id number] [address], [place] [address] [place] Hemoglobin Ql (U) Negative Normal Negative [facility] Comment on above: Order Comment: Speci men Type: URINE SPECIMENOrdering Facility: [facility] Address: [address] [place] [address] Performed By: #### 2 4356-8 ####[facility] LABCLIA [id number] [address], [place] [address] [place] Hyaline casts (Urine sed) [#/Area] 0 /[LPF] Normal 0 /LPF [facility] Comment on above: Order Comment: Speci men Type: URINE SPECIMENOrdering Facility: [facility] Address: [address] [place] [address] Performed By: #### 2 4356-8 ####[facility] LABCLIA [id number] [place] [address] [place] Ketones Ql (U) Negative Normal Negative [facility] Comment on above: Order Comment: Speci men Type: URINE SPECIMENOrdering Facility: [facility] Address: [address] [place] [address] Performed By: #### 2 4356-8 ####[facility] LABCLIA [id number] [place] [address] [place] Leukocyte esterase Test strip Ql (U) Negative Normal Negative [facility] Comment on above: Order Comment: Speci men Type: URINE SPECIMENOrdering Facility: [facility] Address: [address] [place] [address] Performed By: #### 2 4356-8 ####[facility] LABCLIA [id number] [address], [facility] [place] Nitrite Ql (U) Negative Normal Negative [facility] Comment on above: Order Comment: Speci men Type: URINE SPECIMENOrdering Facility: [facility] Address: [address] [place] [address] Performed By: #### 2 4356-8 ####[facility] LABIA [id number] [place] [address] [place] pH (U) 6.5 [pH] Normal <8.5 [facility] Comment on above: Order Comment: Speci men Type: URINE SPECIMENOrdering Facility: [facility] Address: [address] [place] [address] Performed By: #### 2 4356-8 ####[facility] LABIA [id number] [place] [address] [place] Protein (U) [Mass/Vol] Negative Normal Negative [facility] Comment on above: Order Comment: Speci men Type: URINE SPECIMENOrdering Facility: [facility] Address: [address] [place] [address] Performed By: #### 2 4356-8 ####[facility] LABIA [id number] [place] [address] [place] RBC LM.HPF (Urine sed) [#/Area] 0-2 /HPF Normal 0-2 /HPF [facility] Comment on above: Order Comment: Speci men Type: URINE SPECIMENOrdering Facility: [facility] Address: [address] [place] [address] Performed By: #### 2 4356-8 ####[facility] LABIA [id number] [place] [id number] [place] Specific gravity (U) [Rel density] 1.010 Normal 1.005-1.030 [facility] Comment on above: Order Comment: Speci men Type: URINE SPECIMENOrdering Facility: [facility] Address: [address] [place] [address] Performed By: #### 2 4356-8 ####[facility] LABIA [id number] [place] [address] [place] Urobilinogen Ql (U) 0.2 EU/dL Normal 0.2-1.0 EU/dL [facility] Comment on above: Order Comment: Speci men Type: URINE SPECIMENOrdering Facility: [facility] Address: [address] [place] [address] Performed By: #### 2 4356-8 ####[facility] LABIA [id number] [place] [address] [place] WBC LM.HPF (Urine sed) [#/Area] 0-5 /HPF Normal 0-5 /HPF [facility] Comment on above: Order Comment: Speci men Type: URINE SPECIMENOrdering Facility: [facility] Address: [address] [place] [address] Performed By: #### 2 4356-8 ####[facility] [id number] [place] [address] [place] Vit B12 SerPl-ncon 05-01-2 025 Cobalamin (Vitamin B12) [Mass/Vol] 486 pg/mL Normal 232-1245 [facility] Comment on above: Order Comment: Speci men Type: BLOOD SPECIMENOrdering Facility: [facility] Address: [address] [place] [address] Performed By: #### 2 4323-8, 2132-9, 10454-1, 3016-3 ####[facility] LABIA [id number] [address] [place] CNOVon 08-02-2024 CNOV Office Visit (INTMWS ) BRIA WITT ([id number]) 1985 F Date Time Provider Department 08/02/24 2:00 PM BRIANA LEGGETT During your visit today, we recorded the following information about you: Temperature Pulse Respiration Blood pressure 98 degrees 76/minute 16/minute 108/64 Weight 99.3 kg Briana Leggett APRN.CNP 08/02/2024 3:24 PM Signed CC: Patient presents with: Recheck: 1 week follow up HPI Bria Witt is a 39 year old female who presents today for follow up on respiratory infection with wheezing. Unable to tolerate prednisone, placed on doxycycline. CXR negative for pneumonia. Finishing the doxycyline as ordered and feeling better. Last fever was when last seen. Cough is now producing white to clear sputum with less wheezing. Shortness of breath is mainly with exertion. Fatigue and weakness is getting closer back to baseline. Using albuterol inhaler less. No chest pain, syncope, or chills. 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 - right arm surgery SHOULDER SURGERY HX Left 01/26/2017 [facility] - Left shoulder surgery - repair of slap tear and arthroscopy SURGICAL EXTRACTION ERUPTED TOOTH 03/03/2009 had all top teeth removed TONSILLECTOMY PRIMARY/SECONDARY Tonsillectomy TUBAL LIGATION, 2012 TYMPANIC MEMB RPR W/WO PREPJ PERFOR PATCH Tympanoplasty WRIST SURGERY HX Right 02/2015 surgery right (more content not included)... Normal [facility] Bacteria Ur Culton 5 Bacteria identified Cx Nom (U) ORGANISM ID: 1 50,000-<100,000 CFU/ml Normal urogenital wilian Streptococcus agalactiae (Group B streptococcus) was identified in this specimen, which is clinically relevant if the individual is . Normal [facility] Comment on above: Performed By: #### 6 30-4 ####[facility] LABCLIA [id number] [address] OF [facility] CNOVon 07-23-2024 CNOV Office Visit (INTMWS ) MIRYAMBRIA ([id number]) 1985 F Date Time Provider Department 07/23/24 10:20 AM BRIANA LEGGETT During your visit today, we recorded the following information about you: Temperature Pulse Respiration Blood pressure 99.2 degrees 68/minute 16/minute 117/78 Weight 98.9 kg Briana Leggett APRN.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 07/23/2024 1:05 PM Signed CC: Patient presents with: Recheck: Follow up, Flu A on 07/15 cough HPI Bria Witt is a 39 year old female who presents today for continued respiratory illness. Started 1.5-2 weeks ago with scratchy throat then had bady aches and fever. Went to express care on 07/15 and positive for Flu A and past timeline for tamiflu. Has not felt any improvement. Currently with non-productive rattly cough, wheezing, shortness of breath, dizziness, exhaustion, O2 sat in the mid 90s, generalized weakness, decreased appetite, nausea, diarrhea, pain/difficulty urinating, stress incontinence, and sinus congestion. Last month was positive for COVID and had a GI bug. Has been using her albuterol inhaler more often over the last few weeks as well. Does not tolerate prednisone and avoids unless absolutely necessary. Denies syncope, current fever, chills, ear pain, vomiting, chest pain, edema, or new palpitations. Taking tylenol mucinex and ibuprofen over the counter. 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 (more content not included)... Normal [facility] Jadon 07-23-2024 CNPN Telephone (INTMWS) BRIA WITT ([id number]) 1985 F Date Time Provider Department 07/23/24 KOKI WORTHINGTON During your visit today, we recorded the following information about you: Oumar Barahona RN 07/23/2024 8:59 AM Signed Pt reports she tested positive for flu A on 07/15/24. No fever for the last 4 days. Today pt has cough, productive in the morning, as the day goes on cough is dry, increased SOB, and a rattle in chest- no wheeze. Using her inhaler more than she should. Has decreased appetite and feeling tired. Muscles are sore from coughing. Pt has concern for pneumonia since had pneumonia on Mar 15 as well as covid. States her s/s feel the same as when she had pneumonia then. 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 States she will wear a mask. Allergies As of Date: 07/23/2024 Noted Allergy Reaction BEE VENOM PROTEIN (HONEY BEE) 05/30/2018 10 - Anaphylaxis Comments: none IV DYE (IODINE) 05/03/2023 10 - Anaphylaxis ADENOSINE 05/30/2018 5 - Intolerance Comments: paralyzed for 8 hours AMOXICILLIN TRIHYDRATE 09/11/2021 11 - Vomiting AUGMENTIN (AMOXICILLIN-POT CLAVUL*09/21/2010 11 - Vomiting CORTICOSTEROIDS (GLUCOCORTICOIDS) 05/30/2018 5 - Intolerance Comments: Joint swelling FEATHERS 05/30/2018 5 - Intolerance Comments: Allergic to bird dander POTASSIUM CLAVULANATE 05/30/2018 8 - GI Upset PREDNISONE 01/01/2010 7 - Swelling Comments: Severe joint and spine pain and unable to move- able to have injections of joints, just not spine SILVADENE (SILVER SULFADIAZINE) 01/17/2008 5 - Intolerance Comments: Dizziness/nausea SULFA (SULFONAMIDE ANTIBIOTICS) 02/20/2008 8 - GI Upset Date Reviewed: 07/15/2024 Reviewed by: Irma Cardenas MA - Fully Assessed Reason for Visit: Concern for pneumonia [Other] Prescriptions as of 07/23/2024 - albuterol HFA (PROVENTIL HFA, VENTOLIN HFA) 90 mcg/actuation inhaler Inhale 2 Puffs as instructed every 4 hours as needed. - nadolol (CORGARD) 20 mg tablet Take 1 tablet by mouth once daily. - montelukast (SINGULAIR) 10 mg tablet Take 1 tablet by mouth daily at bedtime. - Selenium Sulfide 2.25 % sham Apply to affected area once daily. - metroNIDAZOLE (METROGEL VAGINAL) 0.75 % (37.5mg/5 gram) Vaginal Gel Use 1 applicator vaginally twice per week. - albuterol (PROVENTIL) 2.5 mg /3 mL (0.083 %) nebulizer solution Use 3 mL via nebulizer every 4 hours as needed for wheezing/shortness of breath. Use over 5-15minutes. - fluticasone (FLOVENT) 220 mcg/actuation inhaler Inhale 1 Puff as instructed two times a day. Shake well before use. Rinse mouth after use. - levonorgestrel (MIRENA) 21 mcg/24 hr (8 yrs) 52 mg IUD 1 Each by INTRAUTERINE route as directed. - Nebulizer Accessories misc 1 Each as needed. - ibuprofen (MOTRIN) 800 mg tablet Take 1 tablet by mouth every 8 hours as needed for pain. Take with food. - omeprazole (PRILOSEC) 20 mg capsule TAKE 1 CAPSULE BY MOUTH 1/2 HOUR before breakfast - Nebulizers 1 Each as needed. Nebulizer with accessories/tubing - ubidecarenone (H2Q COQ10 ORAL) Take by mouth. 50mg x1 daily - oxyCODONE-acetaminophen (PERCOCET) 5-325 mg tablet Take 1-2 tablets by mouth as directed. Every 4-6 hours as needed for pain. - nadolol (CORGARD) 20 mg tablet Take 0.5 tablets by mouth twice daily. - Lactobacillus acidophilus (FLORAJEN ACIDOPHILUS) 20 billion cell cap Take 460 mg by mouth once daily. - clonazePAM (KLONOPIN) 0.5 mg tablet Take 1 tablet by mouth four times daily as needed. - EPINEPHrine (EPIPEN) 0.3 mg/0.3 mL auto-injector Use as directed for allergic reaction. Seek emergent medical care immediately after use. - nitroglycerin sublingual (NITROQUICK) 0.4 mg SL tablet Dissolve 1 tablet under the tongue every 5 minutes as needed. - meclizine (ANTIVERT) 25 mg tab Take 25 mg by mouth twice daily as needed. - sertraline (ZOLOFT) 100 mg tablet Take 100 mg by mouth twice daily. Meds Comments as of 11/03/2009: Problem List As Of Date 07/23/2024 Noted Resolved Non-Healing Surgical Wound [T81.89XA] 01/16/2008 [...] Iron deficiency anemia of [O99.019, D*10/20/2011 02/18/2012 [facility] (more content not included)... Normal [facility] UA DIP, URINE (POC)on 2024 BILIRUBIN UA (POCT) Negative Negative [facility] CLARITY UA (POCT) Clear [facility] COLOR UA (POCT) Yellow [facility] GLUCOSE UA (POCT) Negative Negative mg/dL [facility] Hemoglobin Ql (U) Negative Negative [facility] Interpretation and review of laboratory results Abnormal [facility] KETONE UA (POCT) Negative Negative mg/dL [facility] LEUKOCYTES UA (POCT) Small Abnormal Negative [facility] NITRITE UA (POCT) Negative Negative [facility] PH UA (POCT) 6.5 4.5 - 8.0 [facility] Protein Ql (U) Trace Abnormal Negative mg/dL [facility] SPECIFIC GRAVITY UA (POCT) 1.02 1.005 - 1.030 [facility] UROBILINOGEN UA (POCT) 1 Normal E.U./dL [facility] Location:[facility] [place], [address] [facility] [address] [facility] [address], [place], [address] [facility] POINT OF CARE [facility] Urinalysis complete panel (U )on 07-23-2024 BACTERIA UL 1323.5 uL High Negative [facility] Comment on above: Order Comment: Speci men Type: URINE SPECIMENOrdering Facility: [facility] Address: [address] [place] [address] Performed By: #### 2 4356-8 ####[facility] LABCLIA [id number] [place] [address] [place] Bilirubin Ql (U) Negative Normal Negative [facility] Comment on above: Order Comment: Speci men Type: URINE SPECIMENOrdering Facility: [facility] Address: [address] [place] [address] Performed By: #### 2 4356-8 ####[facility] LABCLIA [id number] [place] [address] [place] Clarity (Unsp spec) Clear Normal Clear [facility] Comment on above: Order Comment: Speci men Type: URINE SPECIMENOrdering Facility: [facility] Address: [address] [place] [address] Performed By: #### 2 4356-8 ####[facility] LABCLIA [id number] [place] [address] [place] Color (U) Yellow Normal Yellow [facility] Comment on above: Order Comment: Speci men Type: URINE SPECIMENOrdering Facility: [facility] Address: [address] [place] [address] Performed By: #### 2 4356-8 ####[facility] LABCLIA [id number] [place] [id number] [place] Epithelial cells LM.HPF (Urine sed) [#/Area] Moderate Normal [facility] Comment on above: Order Comment: Speci men Type: URINE SPECIMENOrdering Facility: [facility] Address: [address] [place] [address] Performed By: #### 2 4356-8 ####[facility] LABCLIA [id number] [address], [place] [address] [place] Glucose Test strip (U) [Mass/Vol] Negative Normal Negative [facility] Comment on above: Order Comment: Speci men Type: URINE SPECIMENOrdering Facility: [facility] Address: [address] [place] [address] Performed By: #### 2 4356-8 ####[facility] LABCLIA [id number] [address], [place] [address] [place] Hemoglobin Ql (U) Negative Normal Negative [facility] Comment on above: Order Comment: Speci men Type: URINE SPECIMENOrdering Facility: [facility] Address: [address] [place] [address] Performed By: #### 2 4356-8 ####[facility] LABCLIA [id number] [address], [place] [address] [place] Hyaline casts (Urine sed) [#/Area] 0 /[LPF] Normal 0 /LPF [facility] Comment on above: Order Comment: Speci men Type: URINE SPECIMENOrdering Facility: [facility] Address: [address] [place] [address] Performed By: #### 2 4356-8 ####[facility] LABCLIA [id number] [place] [id number] [place] Ketones Ql (U) Negative Normal Negative [facility] Comment on above: Order Comment: Speci men Type: URINE SPECIMENOrdering Facility: [facility] Address: [address] [place] [address] Performed By: #### 2 4356-8 ####[facility] LABCLIA [id number] [address], [facility] [place] Leukocyte esterase Test strip Ql (U) 3+ Abnormal Negative [facility] Comment on above: Order Comment: Speci men Type: URINE SPECIMENOrdering Facility: [facility] Address: [address] [place] [address] Performed By: #### 2 4356-8 ####[facility] LABCLIA [id number] [place] [address] [place] Nitrite Ql (U) Negative Normal Negative [facility] Comment on above: Order Comment: Speci men Type: URINE SPECIMENOrdering Facility: [facility] Address: [address] [place] [address] Performed By: #### 2 4356-8 ####[facility] LABCLIA [id number] [place] [address] [place] pH (U) 6.5 [pH] Normal <8.5 [facility] Comment on above: Order Comment: Speci men Type: URINE SPECIMENOrdering Facility: [facility] Address: [address] [place] [address] Performed By: #### 2 4356-8 ####[facility] LABCLIA [id number] [place] [address] [place] Protein (U) [Mass/Vol] Trace Abnormal Negative [facility] Comment on above: Order Comment: Speci men Type: URINE SPECIMENOrdering Facility: [facility] Address: [address] [place] [address] Performed By: #### 2 4356-8 ####[facility] LABCLIA [id number] [place] [id number] [place] RBC LM.HPF (Urine sed) [#/Area] 0-2 /HPF Normal 0-2 /HPF [facility] Comment on above: Order Comment: Speci men Type: URINE SPECIMENOrdering Facility: [facility] Address: [address] [place] [address] Performed By: #### 2 4356-8 ####[facility] LABCLIA [id number] [place] [address] [place] Specific gravity (U) [Rel density] 1.022 Normal 1.005-1.030 [facility] Comment on above: Order Comment: Speci men Type: URINE SPECIMENOrdering Facility: [facility] Address: [address] [place] [address] Performed By: #### 2 4356-8 ####[facility] LABIA [id number] [place] [id number] [place] Urobilinogen Ql (U) 0.2 EU/dL Normal 0.2-1.0 EU/dL [facility] Comment on above: Order Comment: Speci men Type: URINE SPECIMENOrdering Facility: [facility] Address: [address] [place] [address] Performed By: #### 2 4356-8 ####[facility] LABIA [id number] [address] [place] WBC LM.HPF (Urine sed) [#/Area] 0-5 /HPF Normal 0-5 /HPF [facility] Comment on above: Order Comment: Speci men Type: URINE SPECIMENOrdering Facility: [facility] Address: [address] [place] [address] Performed By: #### 2 4356-8 ####[facility] LABIA [id number] [place] [id number] [place] XR CHEST 2V FRONTAL/LATon XR CHEST 2V FRONTAL/LAT * * *Final Report* * * DATE OF EXAM: Jul 23 2024 11:32AM WOX [id number] - XR CHEST 2V FRONTAL/LAT / PROCEDURE REASON: multiple diagnoses * * * * Physician Interpretation * * * * EXAMINATION: CHEST RADIOGRAPH (2 VIEW FRONTAL and LATERAL) CLINICAL HISTORY: Wheezing Shortness of breath MQ: XC2_6 EXAM DATE/TIME: 07/23/2024 11:32 AM COMPARISON: Chest x-ray dated 05/23/2024 RESULT: Lines, tubes, and devices: None. Lungs and pleura: No consolidation. No lung mass. No pleural effusion. No pneumothorax. Cardiomediastinal silhouette: Normal cardiomediastinal silhouette. Bones and soft tissues: Degenerative changes are present within the thoracic spine. IMPRESSION: No acute radiographic abnormality. Steel Pourer Helper: EDWARD Transcribe Date/Time: Jul 23 2024 4:03P Dictated by : DORON HAND MD This examination was interpreted and the report reviewed and electronically signed by: DORON HAND MD on Jul 23 2024 4:03PM EST [id number] Normal [facility] XR Chest PA and Lateralon IMPRESSION: No acute radiographic abnormality. Steel Pourer Helper: [facility] Transcribe Date/Time: Jul 23 2024 4:03P Dictated by : DORON HAND MD This examination was interpreted and the report reviewed and electronically signed by: DORON HAND MD on Jul 23 2024 4:03PM EST DIVISION OF RADIOLOGY * * *Final Report* * * DATE OF EXAM: Jul 23 2024 11:32AM WOX [id number] - XR CHEST 2V FRONTAL/LAT / PROCEDURE REASON: multiple diagnoses * * * * Physician Interpretation * * * * EXAMINATION: CHEST RADIOGRAPH (2 VIEW FRONTAL & LATERAL) CLINICAL HISTORY: Wheezing Shortness of breath MQ: XC2_6 EXAM DATE/TIME: 07/23/2024 11:32 AM COMPARISON: Chest x-ray dated 05/23/2024 RESULT: Lines, tubes, and devices: None. Lungs and pleura: No consolidation. No lung mass. No pleural effusion. No pneumothorax. Cardiomediastinal silhouette: Normal cardiomediastinal silhouette. Bones and soft tissues: Degenerative changes are present within the thoracic spine. DIVISION OF RADIOLOGY [facility] * * *Final Report* * * DATE OF EXAM: Jul 23 2024 11:32AM WOX [id number] - XR CHEST 2V FRONTAL/LAT / PROCEDURE REASON: multiple diagnoses * * * * Physician Interpretation * * * * EXAMINATION: CHEST RADIOGRAPH (2 VIEW FRONTAL & LATERAL) CLINICAL HISTORY: Wheezing Shortness of breath MQ: XC2_6 EXAM DATE/TIME: 07/23/2024 11:32 AM COMPARISON: Chest x-ray dated 05/23/2024 RESULT: Lines, tubes, and devices: None. Lungs and pleura: No consolidation. No lung mass. No pleural effusion. No pneumothorax. Cardiomediastinal silhouette: Normal cardiomediastinal silhouette. Bones and soft tissues: Degenerative changes are present within the thoracic spine. IMPRESSION IMPRESSION: No acute radiographic abnormality. Steel Pourer Helper: PSCB Transcribe Date/Time: Jul 23 2024 4:03P Dictated by : DORON HAND MD This examination was interpreted and the report reviewed and electronically signed by: DORON HAND MD on Jul 23 2024 4:03PM EST [facility] Radiology Study observation (narrative) [facility] XR Chest PA and LateralOrder ed By: [facility] Provider on 07-23-2024 [facility] CNOVon 07-15-2024 CNOV Office Visit (UCWSTR ) BRIA WITT ([id number]) 1985 F Date Time Provider Department 07/15/24 2:30 PM KOLE CAMERON WSTR During your visit today, we recorded the following information about you: Temperature Pulse Respiration Blood pressure 100.2 degrees 108/minute 18/minute 120/72 Weight 101.7 kg Kole Cameron, PA 07/15/2024 2:25 PM Signed Cough You have been seen for your cough. There are many possible causes of cough. Most are not dangerous. Your doctor has determined that it is OK for you to go home today. Antibiotics are not necessary for your cough at this time. If your cough was caused by a virus, asthma, or lung irritation, then antibiotics will not help. The doctor may have prescribed some medicine to help with your cough. Use the medicine as directed. YOU SHOULD SEEK MEDICAL ATTENTION IMMEDIATELY, EITHER HERE OR AT THE NEAREST EMERGENCY DEPARTMENT, IF ANY OF THE FOLLOWING OCCURS: You wheeze or have trouble breathing. You cough up mucous or lose weight for no reason. You have a fever (temperature higher than 100.4?F / 38?C) that lasts more than 5 days. You have chest pain. Your symptoms get worse or do not get better in 2 or 3 days. You have any new problems or concerns. Kole Cameron PA 07/15/2024 2:29 PM Signed [facility] Subjective Bria Witt is a 39 year old female. Patient presents with: Cough: congestion, fever, bodyaches, chills and fatigue x 2 days HPI 39-year-old female presents for cough, congestion, fever, body aches, chills, fatigue x 3 days. Patient states starting cough about 3 days ago. Started getting fever last night around 101 ?F. She states she has a dry cough, postnasal drainage, nasal congestion. She denies any chest pain or shortness of breath. Has been taking Tylenol and Motrin for the fevers, Vicks vapor rub and Mucinex without much improvement. 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 Normal [facility] CNNURSEon 07-09-2024 CNNURSE Nurse Visit (FAMPWS) BRIA WITT ([id number]) 1985 F Date Time Provider Department 07/09/24 8:15 AM RI NURSE AMY During your visit today, we recorded the following information about you: ANNA LEONARD 07/09/2024 8:15 AM Signed Patient presents for Pneumococcal and Hepatitis B vaccines. Denies any problems at this time. Tolerated injections well. Anna Leonard LPN Referring Provider: SELF [200] Allergies As of Date: 07/09/2024 Noted Allergy Reaction BEE VENOM PROTEIN (HONEY BEE) 05/30/2018 10 - Anaphylaxis Comments: none IV DYE (IODINE) 05/03/2023 10 - Anaphylaxis ADENOSINE 05/30/2018 5 - Intolerance Comments: paralyzed for 8 hours AMOXICILLIN TRIHYDRATE 09/11/2021 11 - Vomiting AUGMENTIN (AMOXICILLIN-POT CLAVUL*09/21/2010 11 - Vomiting CORTICOSTEROIDS (GLUCOCORTICOIDS) 05/30/2018 5 - Intolerance Comments: Joint swelling FEATHERS 05/30/2018 5 - Intolerance Comments: Allergic to bird dander POTASSIUM CLAVULANATE 05/30/2018 8 - GI Upset PREDNISONE 01/01/2010 7 - Swelling Comments: Severe joint and spine pain and unable to move- able to have injections of joints, just not spine SILVADENE (SILVER SULFADIAZINE) 01/17/2008 5 - Intolerance Comments: Dizziness/nausea SULFA (SULFONAMIDE ANTIBIOTICS) 02/20/2008 8 - GI Upset Date Reviewed: 07/01/2024 Reviewed by: Malka Moulton APRN.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 - Fully Assessed Reason for Visit: Imm/Inj [58] Primary Visit Diagnosis:Encounter for immunization [Z23] Prescriptions as of 07/09/2024 - albuterol HFA (PROVENTIL HFA, VENTOLIN HFA) 90 mcg/actuation inhaler Inhale 2 Puffs as instructed every 4 hours as needed. - nadolol (CORGARD) 20 mg tablet Take 1 tablet by mouth once daily. - montelukast (SINGULAIR) 10 mg tablet Take 1 tablet by mouth daily at bedtime. - Selenium Sulfide 2.25 % sham Apply to affected area once daily. - metroNIDAZOLE (METROGEL VAGINAL) 0.75 % (37.5mg/5 gram) Vaginal Gel Use 1 applicator vaginally twice per week. - albuterol (PROVENTIL) 2.5 mg /3 mL (0.083 %) nebulizer solution Use 3 mL via nebulizer every 4 hours as needed for wheezing/shortness of breath. Use over 5-15minutes. - fluticasone (FLOVENT) 220 mcg/actuation inhaler Inhale 1 Puff as instructed two times a day. Shake well before use. Rinse mouth after use. - levonorgestrel (MIRENA) 21 mcg/24 hr (8 yrs) 52 mg IUD 1 Each by INTRAUTERINE route as directed. - Nebulizer Accessories misc 1 Each as needed. - ibuprofen (MOTRIN) 800 mg tablet Take 1 tablet by mouth every 8 hours as needed for pain. Take with food. - omeprazole (PRILOSEC) 20 mg capsule TAKE 1 CAPSULE BY MOUTH 1/2 HOUR before breakfast - Nebulizers 1 Each as needed. Nebulizer with accessories/tubing - ubidecarenone (H2Q COQ10 ORAL) Take by mouth. 50mg x1 daily - oxyCODONE-acetaminophen (PERCOCET) 5-325 mg tablet Take 1-2 tablets by mouth as directed. Every 4-6 hours as needed for pain. - nadolol (CORGARD) 20 mg tablet Take 0.5 tablets by mouth twice daily. - Lactobacillus acidophilus (FLORAJEN ACIDOPHILUS) 20 billion cell cap Take 460 mg by mouth once daily. - clonazePAM (KLONOPIN) 0.5 mg tablet Take 1 tablet by mouth four times daily as needed. - EPINEPHrine (EPIPEN) 0.3 mg/0.3 mL auto-injector Use as directed for allergic reaction. Seek emergent medical care immediately after use. - nitroglycerin sublingual (NITROQUICK) 0.4 mg SL tablet Dissolve 1 tablet under the tongue every 5 minutes as needed. - meclizine (ANTIVERT) 25 mg tab Take 25 mg by mouth twice daily as needed. - sertraline (ZOLOFT) 100 mg tablet Take 100 mg by mouth twice daily. Meds Comments as of 11/03/2009: Problem List As Of Date 07/09/2024 Noted Resolved Non-Healing Surgical Wound [T81.89XA] 01/16/2008 [...] [M50.*06/22/2013 Chronic pain [G89.29] 06/22/2013 GERD (gastroesophageal re (more content not included)... Normal [facility] BRI[facility] ([id number]) 1985 F Date Time Provider Department 07/02/24 KOKI WORTHINGTON INTMWS During your visit today, we recorded the following information about you: ANNA LEONARD 2024 9:29 AM Signed Patient scheduled for nurse visit 07/09/24 to receive Hepatitis B and Pneumococcal vaccines. Please place order at this time. Anna Leonard LPN Allergies As of Date: 2024 Noted Allergy Reaction BEE VENOM PROTEIN (HONEY BEE) 05/30/2018 10 - Anaphylaxis Comments: none IV DYE (IODINE) 05/03/2023 10 - Anaphylaxis ADENOSINE 05/30/2018 5 - Intolerance Comments: paralyzed for 8 hours AMOXICILLIN TRIHYDRATE 09/11/2021 11 - Vomiting AUGMENTIN (AMOXICILLIN-POT CLAVUL*09/21/2010 11 - Vomiting CORTICOSTEROIDS (GLUCOCORTICOIDS) 05/30/2018 5 - Intolerance Comments: Joint swelling FEATHERS 05/30/2018 5 - Intolerance Comments: Allergic to bird dander POTASSIUM CLAVULANATE 05/30/2018 8 - GI Upset PREDNISONE 01/01/2010 7 - Swelling Comments: Severe joint and spine pain and unable to move- able to have injections of joints, just not spine SILVADENE (SILVER SULFADIAZINE) 01/17/2008 5 - Intolerance Comments: Dizziness/nausea SULFA (SULFONAMIDE ANTIBIOTICS) 02/20/2008 8 - GI Upset Date Reviewed: 07/01/2024 Reviewed by: Malka Moulton APRN.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 - Fully Assessed Reason for Visit: Orders [681] Primary Visit Diagnosis:Need for vaccination [Z23] Other Visit Diagnosis:Encounter for immunization [Z23] Order(s):HEP B VACCINE, 3-DOSE, AGE 20+ YR (ENGERIX-B, RECOMBIVAX HB) [[id number]] Order #: [id number] HEP B VACCINE, 3-DOSE, AGE 20+ YR (ENGERIX-B, RECOMBIVAX HB) [[id number]] Order #: [id number] FUTURE HEP B VACCINE, 3-DOSE, AGE 20+ YR (ENGERIX-B, RECOMBIVAX HB) [[id number]] Order #: [id number] FUTURE PNEUMOCOCCAL VACCINE, 20 VALENT (PREVNAR 20) [[id number]] Order #: [id number] Prescriptions as of 07/03/2024 - albuterol HFA (PROVENTIL HFA, VENTOLIN HFA) 90 mcg/actuation inhaler Inhale 2 Puffs as instructed every 4 hours as needed. - nadolol (CORGARD) 20 mg tablet Take 1 tablet by mouth once daily. - montelukast (SINGULAIR) 10 mg tablet Take 1 tablet by mouth daily at bedtime. - Selenium Sulfide 2.25 % sham Apply to affected area once daily. - metroNIDAZOLE (METROGEL VAGINAL) 0.75 % (37.5mg/5 gram) Vaginal Gel Use 1 applicator vaginally twice per week. - albuterol (PROVENTIL) 2.5 mg /3 mL (0.083 %) nebulizer solution Use 3 mL via nebulizer every 4 hours as needed for wheezing/shortness of breath. Use over 5-15minutes. - fluticasone (FLOVENT) 220 mcg/actuation inhaler Inhale 1 Puff as instructed two times a day. Shake well before use. Rinse mouth after use. - levonorgestrel (MIRENA) 21 mcg/24 hr (8 yrs) 52 mg IUD 1 Each by INTRAUTERINE route as directed. - Nebulizer Accessories misc 1 Each as needed. - ibuprofen (MOTRIN) 800 mg tablet Take 1 tablet by mouth every 8 hours as needed for pain. Take with food. - omeprazole (PRILOSEC) 20 mg capsule TAKE 1 CAPSULE BY MOUTH 1/2 HOUR before breakfast - Nebulizers 1 Each as needed. Nebulizer with accessories/tubing - ubidecarenone (H2Q COQ10 ORAL) Take by mouth. 50mg x1 daily - oxyCODONE-acetaminophen (PERCOCET) 5-325 mg tablet Take 1-2 tablets by mouth as directed. Every 4-6 hours as needed for pain. - nadolol (CORGARD) 20 mg tablet Take 0.5 tablets by mouth twice daily. - Lactobacillus acidophilus (FLORAJEN ACIDOPHILUS) 20 billion cell cap Take 460 mg by mouth once daily. - clonazePAM (KLONOPIN) 0.5 mg tablet Take 1 tablet by mouth four times daily as needed. - EPINEPHrine (EPIPEN) 0.3 mg/0.3 mL auto-injector Use as directed for allergic reaction. Seek emergent medical care immediately after use. - nitroglycerin sublingual (NITROQUICK) 0.4 mg SL tablet Dissolve 1 tablet under the tongue every 5 minutes as needed. - meclizine (ANTIVERT) 25 mg tab Take 25 mg by mouth twice daily as needed. - sertraline (ZOLOFT) 100 mg tablet Take 100 mg by mouth twice daily. Meds Comments as of 11/03/2009: Problem List As Of Date 2024 Noted Resolved Non-Healing Surgical Wound [T81.89XA] 01/16/2008 [...] (premature ventricular contraction) [I49.3] 09/03/2011 Obesity [E66.9] (more content not included)... Normal [facility] CNOVon 07-01-2024 CNOV Office Visit (UCWSTR ) BRIA WITT ([id number]) 1985 F Date Time Provider Department 07/01/24 10:45 AM MALKA MOULTON WSTR During your visit today, we recorded the following information about you: Temperature Pulse Respiration Blood pressure 98.2 degrees 90/minute 20/minute 120/64 Weight 102.2 kg Mogriselda, Malka, RIDES ATTENDANT.VELVET 07/01/2024 11:01 AM Signed This note was created using [employer]. Subjective Bria Witt is a 38 year old female. HPI For the last 7 days patient complains of sinus congestion and bilateral ear pain and congestion. She also notes a mild cough. Denies any fever or sore throat. Review of Systems As above Objective BP 120/64 Pulse 90 Temp 36.8 ?C (98.2 ?F) Resp 20 Wt 102.2 kg (225 lb 5 oz) LMP (LMP Unknown) SpO2 99% BMI 37.49 kg/m? Physical Exam Vitals and nursing note reviewed. Constitutional: General: She is not in acute distress. Appearance: Normal appearance. She is not ill-appearing. HENT: Head: Normocephalic. Right Ear: Tympanic membrane and ear canal normal. Left Ear: Tympanic membrane and ear canal normal. Mouth/Throat: Mouth: Mucous membranes are moist. Pharynx: No posterior oropharyngeal erythema. Eyes: Conjunctiva/sclera: Conjunctivae normal. Cardiovascular: Rate and Rhythm: Normal rate and regular rhythm. Pulmonary: Effort: Pulmonary effort is normal. Breath sounds: Normal breath sounds. Musculoskeletal: General: Normal range of motion. Cervical back: Normal range of motion. Skin: General: Skin is warm and dry. Neurological: General: No focal deficit present. Mental Status: She is alert. Psychiatric: Mood and Affect: Mood normal. Behavior: Behavior normal. Assessment and Plan ASSESSMENT/PLAN: 1. Nasal congestion - ICD9: 478.19, ICD10: R09.81 No sign of otitis media noted. Due to patient's complicated medical history and medication list she will only be able to use Flonase for probable mild eustachian tube dysfunction. She was tested for influenza and COVID as she is currently visiting a grandchild at [facility] but due to length of symptoms there is no specific treatment indicated. She will follow-up with PCP if symptoms not improving. - COVID AND INFLUENZA A/B AND RSV PCR, ROUTINE Malka Moulton APRN.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 Referring Provider: SELF [200] Allergies As of Date: 07/01/2024 Noted Allergy Reaction BEE VENOM PROTEIN (HONEY BEE) 05/30/2018 10 - Anaphylaxis Comments: none IV DYE (IODINE) 05/03/2023 10 - Anaphylaxis ADENOSINE 05/30/2018 5 - Intolerance Comments: paralyzed for 8 hours AMOXICILLIN TRIHYDRATE 09/11/2021 11 - Vomiting AUGMENTIN (AMOXICILLIN-POT CLAVUL*09/21/2010 11 - Vomiting CORTICOSTEROIDS (GLUCOCORTICOIDS) 05/30/2018 5 - Intolerance Comments: Joint swelling FEATHERS 05/30/2018 5 - Intolerance Comments: Allergic to bird dander POTASSIUM CLAVULANATE 05/30/2018 8 - GI Upset PREDNISONE 01/01/2010 7 - Swelling Comments: Severe joint and spine pain and unable to move- able to have injections of joints, just not spine SILVADENE (SILVER SULFADIAZINE) 01/17/2008 5 - Intolerance Comments: Dizziness/nausea SULFA (SULFONAMIDE ANTIBIOTICS) 02/20/2008 8 - GI Upset Date Reviewed: 07/01/2024 Reviewed by: Malka Moulton APRN.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 - Fully Assessed Reason for Visit: Ear Problem [38] Cmt: Left ear pain, congestion x 1 week Primary Visit Diagnosis:Nasal congestion [R09.81] Order(s):COVID AND INFLUENZA A/B AND RSV PCR, ROUTINE [SQCVFLRS] Order #: [id number]. #:[id number] Prescriptions as of 07/01/2024 - albuterol HFA (PROVENTIL HFA, VENTOLIN HFA) 90 mcg/actuation inhaler Inhale 2 Puffs as instructed every 4 hours as needed. - nadolol (CORGARD) 20 mg tablet Take 1 tablet by mouth once daily. - montelukast (SINGULAIR) 10 mg tablet Take 1 tablet by mouth daily at bedtime. - Selenium Sulfide 2.25 % sham Apply to affected area once daily. - metroNIDAZOLE (METROGEL VAGINAL) 0.75 % (37.5mg/5 gram) Vaginal Gel Use 1 applicator vaginally twice per week. - albuterol (PROVENTIL) 2.5 mg /3 mL (0.083 %) nebulizer solution Use 3 mL via nebulizer every 4 hours as needed for wheezing/shortness of breath. Use over 5-15minutes. - fluticasone (FLOVENT) 220 mcg/actuation inhaler Inhale 1 Puff as instructed two times a day. Shake well before use. Rinse mouth after use. - levonorgestrel (MIRENA) 21 mcg/24 hr (8 yrs) 52 mg IUD 1 Each by INTRAUTERINE route as directed. - Nebulizer Accessories misc 1 Each as needed. - ibuprofen (MOTRIN) 800 mg tablet Take 1 tablet by mouth every 8 hours as needed for pain. Take with food. - omeprazole (PRILOSEC) 20 mg capsule TAKE 1 CAPSULE BY MOUTH 1/2 HOUR before breakfast - Nebulizers 1 Each as needed. Nebulizer with accessories/tubing - ubidecarenone (H2Q COQ10 ORAL) Take by mouth. 50mg x1 daily - oxyCODONE-acetaminophen (PERCOCET) (more content not included)... Normal [facility] GENETIC SENDOUTon 05-25-2024 Genetic Test Name Whole Exome Sequencing Invalid Interpretation Code [facility] Comment on above: Order Comment: Landon nd:Mian pedersen) Billing type:->Direct Billing type:->Direct CPT Code:->n/a Test code:->561d Specimen requirements:->3-5ml EDTA Date of Service:->05/25/24 Name of Test:->Grandparent sample for whole exome sequencing What is the sendout facility name, if known?->[facility] Genetic Test Reference Lab [facility] Invalid Interpretation Code [facility] Comment on above: Order Comment: Landon nd:Mian pedersen) Billing type:->Direct Billing type:->Direct CPT Code:->n/a Test code:->561d Specimen requirements:->3-5ml EDTA Date of Service:->05/25/24 Name of Test:->Grandparent sample for whole exome sequencing What is the sendout facility name, if known?->[facility] Miscellaneous Results Invalid Interpretation Code [facility] Comment on above: Order Comment: Carisaa nd:Mian pedersen) Billing type:->Direct Billing type:->Direct CPT Code:->n/a Test code:->561d Specimen requirements:->3-5ml EDTA Date of Service:->05/25/24 Name of Test:->Grandparent sample for whole exome sequencing What is the sendout facility name, if known?->[facility] Result Comment: Dalia dparent specimen - results incorporated into proband's report. [facility] MARYBELBRIA WESTFALL ([id number]) 1985 F Date Time Provider Department 05/23/24 [facility] During your visit today, we recorded the following information about you: Surya Bishop PA-C 05/23/2024 10:11 AM Signed Please let patient know that her CXR is clearing. Follow up if symptoms not resolved or any returning or worsening symptoms. Surya Bishop PA-C 05/23/2024 Kailey Barr LPN 05/23/2024 2:14 PM Signed Telephone call placed to patient. Message left to call office back for update. FREDDY Land M Robin, RN 05/23/2024 2:27 PM Signed Pt returned call and given provider's message below with verbalized understanding. Pt agreeable. Allergies As of Date: 05/23/2024 Noted Allergy Reaction BEE VENOM PROTEIN (HONEY BEE) 05/30/2018 10 - Anaphylaxis Comments: none IV DYE (IODINE) 05/03/2023 10 - Anaphylaxis ADENOSINE 05/30/2018 5 - Intolerance Comments: paralyzed for 8 hours AMOXICILLIN TRIHYDRATE 09/11/2021 11 - Vomiting AUGMENTIN (AMOXICILLIN-POT CLAVUL*09/21/2010 11 - Vomiting CORTICOSTEROIDS (GLUCOCORTICOIDS) 05/30/2018 5 - Intolerance Comments: Joint swelling FEATHERS 05/30/2018 5 - Intolerance Comments: Allergic to bird dander POTASSIUM CLAVULANATE 05/30/2018 8 - GI Upset PREDNISONE 01/01/2010 7 - Swelling Comments: Severe joint and spine pain and unable to move- able to have injections of joints, just not spine SILVADENE (SILVER SULFADIAZINE) 01/17/2008 5 - Intolerance Comments: Dizziness/nausea SULFA (SULFONAMIDE ANTIBIOTICS) 02/20/2008 8 - GI Upset Date Reviewed: 05/08/2024 Reviewed by: Zee Abrams LPN - Fully Assessed Reason for Visit: Results [95] Prescriptions as of 05/23/2024 - albuterol HFA (PROVENTIL HFA, VENTOLIN HFA) 90 mcg/actuation inhaler Inhale 2 Puffs as instructed every 4 hours as needed. - nadolol (CORGARD) 20 mg tablet Take 1 tablet by mouth once daily. - montelukast (SINGULAIR) 10 mg tablet Take 1 tablet by mouth daily at bedtime. - Selenium Sulfide 2.25 % sham Apply to affected area once daily. - metroNIDAZOLE (METROGEL VAGINAL) 0.75 % (37.5mg/5 gram) Vaginal Gel Use 1 applicator vaginally twice per week. - albuterol (PROVENTIL) 2.5 mg /3 mL (0.083 %) nebulizer solution Use 3 mL via nebulizer every 4 hours as needed for wheezing/shortness of breath. Use over 5-15minutes. - fluticasone (FLOVENT) 220 mcg/actuation inhaler Inhale 1 Puff as instructed two times a day. Shake well before use. Rinse mouth after use. - levonorgestrel (MIRENA) 21 mcg/24 hr (8 yrs) 52 mg IUD 1 Each by INTRAUTERINE route as directed. - Nebulizer Accessories misc 1 Each as needed. - ibuprofen (MOTRIN) 800 mg tablet Take 1 tablet by mouth every 8 hours as needed for pain. Take with food. - omeprazole (PRILOSEC) 20 mg capsule TAKE 1 CAPSULE BY MOUTH 1/2 HOUR before breakfast - Nebulizers 1 Each as needed. Nebulizer with accessories/tubing - ubidecarenone (H2Q COQ10 ORAL) Take by mouth. 50mg x1 daily - oxyCODONE-acetaminophen (PERCOCET) 5-325 mg tablet Take 1-2 tablets by mouth as directed. Every 4-6 hours as needed for pain. - nadolol (CORGARD) 20 mg tablet Take 0.5 tablets by mouth twice daily. - Lactobacillus acidophilus (FLORAJEN ACIDOPHILUS) 20 billion cell cap Take 460 mg by mouth once daily. - clonazePAM (KLONOPIN) 0.5 mg tablet Take 1 tablet by mouth four times daily as needed. - EPINEPHrine (EPIPEN) 0.3 mg/0.3 mL auto-injector Use as directed for allergic reaction. Seek emergent medical care immediately after use. - nitroglycerin sublingual (NITROQUICK) 0.4 mg SL tablet Dissolve 1 tablet under the tongue every 5 minutes as needed. - meclizine (ANTIVERT) 25 mg tab Take 25 mg by mouth twice daily as needed. - sertraline (ZOLOFT) 100 mg tablet Take 100 mg by mouth twice daily. Meds Comments as of 11/03/2009: Problem List As Of Date 05/23/2024 Noted Resolved Non-Healing Surgical Wound [T81.89XA] 01/16/2008 [...] 08/29/2012 06/13/2018 Vaginal discharge [N89.8] 12/07/2012 10/02/2013 Vagin (more content not included)... Normal [facility] XR CHEST 2V FRONTAL/LATon XR CHEST 2V FRONTAL/LAT * * *Final Report* * * DATE OF EXAM: May 23 2024 8:20AM [id number] - XR CHEST 2V FRONTAL/LAT / PROCEDURE REASON: Bacterial pneumonia * * * * Physician Interpretation * * * * EXAMINATION: CHEST RADIOGRAPH (2 VIEW FRONTAL and LATERAL) CLINICAL HISTORY: Bacterial pneumonia MQ: XC2_6 EXAM DATE/TIME: 05/23/2024 8:20 AM COMPARISON: Chest radiograph(s) dated 04/17/2024 RESULT: Lines, tubes, and devices: None. Lungs and pleura: Interval near total resolution of hazy opacities in the left lung. No new consolidation. No lung mass. No pleural effusion. No pneumothorax. Cardiomediastinal silhouette: Normal cardiomediastinal silhouette. Bones and soft tissues: Unremarkable. IMPRESSION: Interval near total resolution of hazy opacities in the left lung. Steel Pourer Helper: EDWARD Transcribe Date/Time: May 23 2024 8:22A Dictated by : GREG CARSON MD This examination was interpreted and the report reviewed and electronically signed by: GREG CARSON MD on May 23 2024 8:24AM EST [id number] Normal [facility] XR Chest PA and Lateralon IMPRESSION: Interval near total resolution of hazy opacities in the left lung. Steel Pourer Helper: EDWARD Transcribe Date/Time: May 23 2024 8:22A Dictated by : GREG CARSON MD This examination was interpreted and the report reviewed and electronically signed by: GREG CARSON MD on May 23 2024 8:24AM EST DIVISION OF RADIOLOGY * * *Final Report* * * DATE OF EXAM: May 23 2024 8:20AM [id number] - XR CHEST 2V FRONTAL/LAT / PROCEDURE REASON: Bacterial pneumonia * * * * Physician Interpretation * * * * EXAMINATION: CHEST RADIOGRAPH (2 VIEW FRONTAL & LATERAL) CLINICAL HISTORY: Bacterial pneumonia MQ: XC2_6 EXAM DATE/TIME: 05/23/2024 8:20 AM COMPARISON: Chest radiograph(s) dated 04/17/2024 RESULT: Lines, tubes, and devices: None. Lungs and pleura: Interval near total resolution of hazy opacities in the left lung. No new consolidation. No lung mass. No pleural effusion. No pneumothorax. Cardiomediastinal silhouette: Normal cardiomediastinal silhouette. Bones and soft tissues: Unremarkable. DIVISION OF RADIOLOGY Provider, aMrvin Rasheed - 05/23/2024 * * *Final Report* * * DATE OF EXAM: May 23 2024 8:20AM [id number] - XR CHEST 2V FRONTAL/LAT / PROCEDURE REASON: Bacterial pneumonia * * * * Physician Interpretation * * * * EXAMINATION: CHEST RADIOGRAPH (2 VIEW FRONTAL & LATERAL) CLINICAL HISTORY: Bacterial pneumonia MQ: XC2_6 EXAM DATE/TIME: 05/23/2024 8:20 AM COMPARISON: Chest radiograph(s) dated 04/17/2024 RESULT: Lines, tubes, and devices: None. Lungs and pleura: Interval near total resolution of hazy opacities in the left lung. No new consolidation. No lung mass. No pleural effusion. No pneumothorax. Cardiomediastinal silhouette: Normal cardiomediastinal silhouette. Bones and soft tissues: Unremarkable. IMPRESSION IMPRESSION: Interval near total resolution of hazy opacities in the left lung. Steel Pourer Helper: PSCB Transcribe Date/Time: May 23 2024 8:22A Dictated by : GREG CARSON MD This examination was interpreted and the report reviewed and electronically signed by: GREG CARSON MD on May 23 2024 8:24AM EST [facility] Radiology Study observation (narrative) [facility] XR Chest PA and LateralOrder ed By: [facility] Provider on 05-23-2024 [facility] CBC W Auto Differential pane l (Bld)on 05-11-2024 Basophils (Bld) [#/Vol] 0.06 10*3/uL Normal <0.11 [facility] Comment on above: Order Comment: Speci men Type: BLOOD SPECIMENOrdering Facility: [facility] Address: [address] [place] [address] Performed By: #### 5 7021-8 ####[facility] [id number] [place] [address] [place] Basophils/100 WBC (Bld) 0.7 % Normal [facility] Comment on above: Order Comment: Speci men Type: BLOOD SPECIMENOrdering Facility: [facility] Address: [address] [place] [address] Performed By: #### 5 7021-8 ####[facility]PITALEBONIELIA [id number] [place] [address] [place] Differential cell count method Nom (Bld) Auto Normal [facility] Comment on above: Order Comment: Speci men Type: BLOOD SPECIMENOrdering Facility: [facility] Address: [address] [place] [address] Performed By: #### 5 7021-8 ####[facility]PITALJORDINA [id number] [place] [address] [place] Eosinophils (Bld) [#/Vol] 0.08 10*3/uL Normal <0.46 [facility] Comment on above: Order Comment: Speci men Type: BLOOD SPECIMENOrdering Facility: [facility] Address: [address] [place] [address] Performed By: #### 5 7021-8 ####[facility] [id number] [place] [address] [place] Eosinophils/100 WBC (Bld) 0.9 % Normal [facility] Comment on above: Order Comment: Speci men Type: BLOOD SPECIMENOrdering Facility: [facility] Address: [address] [place] [address] Performed By: #### 5 7021-8 ####[facility]OSPITALNCA [id number] [place] [address] [place] Erythrocyte distribution width (RBC) [Ratio] 13.8 % Normal 11.5-15.0 [facility] Comment on above: Order Comment: Speci men Type: BLOOD SPECIMENOrdering Facility: [facility] Address: [address] [place] [address] Performed By: #### 5 7021-8 ####[facility] DARRELLSIDNEY & LOIS ESKENAZI HOSPITALLIA [id number] [place] [address] [place] Hematocrit (Bld) [Volume fraction] 40.1 % Normal 36.0-46.0 [facility] Comment on above: Order Comment: Speci men Type: BLOOD SPECIMENOrdering Facility: [facility] Address: [address] [place] [address] Performed By: #### 5 7021-8 ####[facility] [id number] [place] [address] [place] Hemoglobin (Bld) [Mass/Vol] 12.9 g/dL Normal 11.5-15.5 [facility] Comment on above: Order Comment: Speci men Type: BLOOD SPECIMENOrdering Facility: [facility] Address: [address] [place] [address] Performed By: #### 5 7021-8 ####[facility] [id number] [place] [address] [place] Immature granulocytes (Bld) [#/Vol] 10*3/uL Normal <0.10 [facility] Comment on above: Order Comment: Speci men Type: BLOOD SPECIMENOrdering Facility: [facility] Address: [address] [place] [address] Performed By: #### 5 7021-8 ####[facility] [id number] [place] [address] [place] Immature granulocytes/100 WBC (Bld) 0.2 % Normal [facility] Comment on above: Order Comment: Speci men Type: BLOOD SPECIMENOrdering Facility: [facility] Address: [address] [place] [address] Performed By: #### 5 7021-8 ####[facility]ITALL[facility] [id number] [place] [address] [place] Lymphocytes (Bld) [#/Vol] 3.37 10*3/uL Normal 1.00-4.00 [facility] Comment on above: Order Comment: Speci men Type: BLOOD SPECIMENOrdering Facility: [facility] Address: [address] [place] [address] Performed By: #### 5 7021-8 ####[facility]ITALNCMOUNT[facility] [id number] [place] [address] [place] Lymphocytes/100 WBC (Bld) 39.3 % Normal [facility] Comment on above: Order Comment: Speci men Type: BLOOD SPECIMENOrdering Facility: [facility] Address: [address] [place] [address] Performed By: #### 5 7021-8 ####[facility]ITALNCMOUNT[facility] [id number] [place] [address] [place] MCH (RBC) [Entitic mass] 27.0 pg Normal 26.0-34.0 [facility] Comment on above: Order Comment: Speci men Type: BLOOD SPECIMENOrdering Facility: [facility] Address: [address] [place] [address] Performed By: #### 5 7021-8 ####[facility]OSPITALNCLI [id number] [place] [address] [place] MCHC (RBC) [Mass/Vol] 32.2 g/dL Normal 30.5-36.0 [facility] Comment on above: Order Comment: Speci men Type: BLOOD SPECIMENOrdering Facility: [facility] Address: [address] [place] [address] Performed By: #### 5 7021-8 ####[facility]ITALNCLI [id number] [place] [address] [place] MCV (RBC) [Entitic vol] 84.1 fL Normal 80.0-100.0 [facility] Comment on above: Order Comment: Speci men Type: BLOOD SPECIMENOrdering Facility: [facility] Address: [address] [place] [address] Performed By: #### 5 7021-8 ####[facility] VETO CRISTY [id number] [place] [address] [place] Monocytes (Bld) [#/Vol] 0.41 10*3/uL Normal <0.87 [facility] Comment on above: Order Comment: Speci men Type: BLOOD SPECIMENOrdering Facility: [facility] Address: [address] [place] [address] Performed By: #### 5 7021-8 ####[facility] [id number] [place] [address] [place] Monocytes/100 WBC (Bld) 4.8 % Normal [facility] Comment on above: Order Comment: Speci men Type: BLOOD SPECIMENOrdering Facility: [facility] Address: [address] [place] [address] Performed By: #### 5 7021-8 ####[facility] [id number] [place] [address] [place] Neutrophils (Bld) [#/Vol] 4.64 10*3/uL Normal 1.45-7.50 [facility] Comment on above: Order Comment: Speci men Type: BLOOD SPECIMENOrdering Facility: [facility] Address: [address] [place] [address] Performed By: #### 5 7021-8 ####[facility] [id number] [place] [address] [place] Neutrophils/100 WBC (Bld) 54.1 % Normal [facility] Comment on above: Order Comment: Speci men Type: BLOOD SPECIMENOrdering Facility: [facility] Address: [address] [place] [address] Performed By: #### 5 7021-8 ####[facility]PITALNCLIA [id number] [place] [address] [place] Nucleated RBC (Bld) [#/Vol] 10*3/uL Normal <0.01 [facility] Comment on above: Order Comment: Speci men Type: BLOOD SPECIMENOrdering Facility: [facility] Address: [address] [place] [address] Performed By: #### 5 7021-8 ####[facility] [id number] [place] [address] [place] Nucleated RBC/100 WBC (Bld) [Ratio] 0.0 /100 WBC Normal [facility] Comment on above: Order Comment: Speci men Type: BLOOD SPECIMENOrdering Facility: [facility] Address: [address] [place] [address] Performed By: #### 5 7021-8 ####[facility] [id number] [place] [address] [place] Platelet mean volume (Bld) [Entitic vol] 10.3 fL Normal 9.0-12.7 [facility] Comment on above: Order Comment: Speci men Type: BLOOD SPECIMENOrdering Facility: [facility] Address: [address] [place] [address] Performed By: #### 5 7021-8 ####[facility] [id number] [place] [address] [place] Platelets (Bld) [#/Vol] 200 10*3/uL Normal 150-400 [facility] Comment on above: Order Comment: Speci men Type: BLOOD SPECIMENOrdering Facility: [facility] Address: [address] [place] [address] Performed By: #### 5 7021-8 ####[facility]ITALNCM[facility] [id number] [place] [address] [place] RBC (Bld) [#/Vol] 4.77 10*6/uL Normal 3.90-5.20 [facility] Comment on above: Order Comment: Speci men Type: BLOOD SPECIMENOrdering Facility: [facility] Address: [address] [place] [address] Performed By: #### 5 7021-8 ####[facility] JACKSONVILLERACHAELA [id number] [place] [address] [place] WBC (Bld) [#/Vol] 8.58 10*3/uL Normal 3.70-11.00 [facility] Comment on above: Order Comment: Speci men Type: BLOOD SPECIMENOrdering Facility: [facility] Address: [address] [place] [address] Performed By: #### 5 7021-8 ####[facility]PITALOCTAVIANO [id number] [place] [address] [place] Comprehensive metabolic 2000 panelon 05-11-2024 Albumin [Mass/Vol] 4.3 g/dL Normal 3.9-4.9 [facility] Comment on above: Order Comment: Speci men Type: BLOOD SPECIMENOrdering Facility: [facility] Address: [address] [place] [address] Performed By: #### 2 4323-8 ####[facility] JACKSONVILLERACHAELA [id number] [place] [address] [place] ALP [Catalytic activity/Vol] 62 U/L Normal 34-123 [facility] Comment on above: Order Comment: Speci men Type: BLOOD SPECIMENOrdering Facility: [facility] Address: [address] [place] [address] Performed By: #### 2 4323-8 ####[facility] JACKSONVILLEWNCLIA [id number] [place] [address] [place] ALT [Catalytic activity/Vol] 11 U/L Normal 7-38 [facility] Comment on above: Order Comment: Speci men Type: BLOOD SPECIMENOrdering Facility: [facility] Address: [address] [place] [address] Performed By: #### 2 4323-8 ####[facility]ACKSONVILLEWNCLIA [id number] [place] [address] [place] Anion gap [Moles/Vol] 10 mmol/L Normal 8-15 [facility] Comment on above: Order Comment: Speci men Type: BLOOD SPECIMENOrdering Facility: [facility] Address: [address] [place] [address] Performed By: #### 2 4323-8 ####[facility] [id number] [place] [address] [place] AST [Catalytic activity/Vol] 12 U/L Low 13-35 [facility] Comment on above: Order Comment: Speci men Type: BLOOD SPECIMENOrdering Facility: [facility] Address: [address] [place] [address] Performed By: #### 2 4323-8 ####[facility] [id number] [place] [address] [place] Bilirubin [Mass/Vol] mg/dL Low 0.2-1.3 [facility] Comment on above: Order Comment: Speci men Type: BLOOD SPECIMENOrdering Facility: [facility] Address: [address] [place] [address] Performed By: #### 2 4323-8 ####[facility]ILLEWNCLIA [id number] [place] [address] [place] Calcium [Mass/Vol] 9.4 mg/dL Normal 8.5-10.2 [facility] Comment on above: Order Comment: Speci men Type: BLOOD SPECIMENOrdering Facility: [facility] Address: [address] [place] [address] Performed By: #### 2 4323-8 ####[facility] MILLWNCLIA [id number] [place] [address] [place] Chloride [Moles/Vol] 102 mmol/L Normal 98-107 [facility] Comment on above: Order Comment: Speci men Type: BLOOD SPECIMENOrdering Facility: [facility] Address: [address] [place] [address] Performed By: #### 2 4323-8 ####[facility] [id number] [place] [address] [place] CO2 [Moles/Vol] 25 mmol/L Normal 22-30 [facility] Comment on above: Order Comment: Speci men Type: BLOOD SPECIMENOrdering Facility: [facility] Address: [address] [place] [address] Performed By: #### 2 4323-8 ####[facility] [id number] [place] [address] [place] Creatinine [Mass/Vol] 0.58 mg/dL Normal 0.58-0.96 [facility] Comment on above: Order Comment: Speci men Type: BLOOD SPECIMENOrdering Facility: [facility] Address: [address] [place] [address] Performed By: #### 2 4323-8 ####[facility] [id number] [address] [place] Creatinine and Glomerular filtration rate.predicted panel (S/P/Bld) 117 mL/min/1.73m??? Normal >=60 [facility] Comment on above: Order Comment: Speci men Type: BLOOD SPECIMENOrdering Facility: [facility] Address: [address] [place] [address] Result Comment: Denise mated Glomerular Filtration Rate (eGFR) is calculated using the 2020 CKD-EPI creatinine equation. This equation utilizes serum creatinine, sex, and age as parameters. The creatinine assay has traceable calibration to isotope dilution-mass spectrometry. Refer to KDIGO guidelines for clinical interpretation. In patients with unstable renal function, e.g. those with acute kidney injury, the eGFR may not accurately reflect actual GFR. Performed By: #### 2 4323-8 ####[facility] ROYAWNCLIA [id number] [place] [address] [place] Glucose [Mass/Vol] 111 mg/dL High 74-99 [facility] Comment on above: Order Comment: Speci men Type: BLOOD SPECIMENOrdering Facility: [facility] Address: [address] [place], [place] [id number] Result Comment: The [place] Diabetes Association (ADA) provides guidance for cutoff values for fasting glucose and random glucose. The ADA defines fasting as no caloric intake for at least 8 hours. Fasting plasma glucose results between 100 to 125 mg/dL indicate increased risk for diabetes (prediabetes). Fasting plasma glucose results greater than or equal to 126 mg/dL meet the criteria for diagnosis of diabetes. In the absence of unequivocal hyperglycemia, results should be confirmed by repeat testing. In a patient with classic symptoms of hyperglycemia or hyperglycemic crisis, random plasma glucose results greater than or equal to 200 mg/dL meet the criteria for diagnosis of diabetes. Reference: Standards of Medical Care in Diabetes 2016, [place] Diabetes Association. Diabetes Care. 2016.39(Suppl 1). Performed By: #### 2 4323-8 ####[facility]LEWSCLIA [id number] [place] [address] [place] Potassium [Moles/Vol] 3.9 mmol/L Normal 3.7-5.1 [facility] Comment on above: Order Comment: Speci men Type: BLOOD SPECIMENOrdering Facility: [facility] Address: [address] [place] [address] Performed By: #### 2 4323-8 ####[facility]LEWNCLIA [id number] [place] [address] [place] Protein [Mass/Vol] 7.0 g/dL Normal 6.3-8.0 [facility] Comment on above: Order Comment: Speci men Type: BLOOD SPECIMENOrdering Facility: [facility] Address: [address] [place] [address] Performed By: #### 2 4323-8 ####[facility]ITALNCCALLIE [id number] [place] [address] [place] Sodium [Moles/Vol] 137 mmol/L Normal 136-144 [facility] Comment on above: Order Comment: Speci men Type: BLOOD SPECIMENOrdering Facility: [facility] Address: [address] [place] [address] Performed By: #### 2 4323-8 ####[facility] [id number] [place] [address] [place] Urea nitrogen [Mass/Vol] 10 mg/dL Normal 7-21 [facility] Comment on above: Order Comment: Speci men Type: BLOOD SPECIMENOrdering Facility: [facility] Address: [address] [place] [address] Performed By: #### 2 4323-8 ####[facility] [id number] [place] [address] [place] Ferritin SerPl-mCncon 2024 Ferritin [Mass/Vol] 33.5 ng/mL Normal 14.7-205.1 [facility] Comment on above: Order Comment: Speci men Type: BLOOD SPECIMENOrdering Facility: [facility] Address: [address] [place] [address] Performed By: #### 2 276-4 ####[facility] LABCLIA [id number] [place] [address] [place] Iron and Iron binding capaci ty panelon 05-11-2024 Iron [Mass/Vol] 58 ug/dL Normal 41-186 [facility] Comment on above: Order Comment: Speci men Type: BLOOD SPECIMENOrdering Facility: [facility] Address: [address] [place] [address] Performed By: #### 3 016-3, 45114-6, 3024-7, 305-0 ####[facility] LABCLIA [id number] [place] [address] [place] Iron binding capacity [Mass/Vol] 338 ug/dL Normal 232-386 [facility] Comment on above: Order Comment: Speci men Type: BLOOD SPECIMENOrdering Facility: [facility] Address: [address] [place] [address] Performed By: #### 3 016-3, 63431-2, 302-7, 305-0 ####[facility] LABIA [id number] [place] [address] [place] Iron/TIBC [Molar ratio] 17.2 % Normal 15.0-57.0 [facility] Comment on above: Order Comment: Speci men Type: BLOOD SPECIMENOrdering Facility: [facility] Address: [address] [place] [address] Performed By: #### 3 016-3, 33125-7, 3024-7, 305-0 ####[facility] LABIA [id number] [place] [address] [place] T3Free SerPl-mCncon 20 25 Free T3 [Mass/Vol] 3.5 pg/mL Normal 2.3-4.1 [facility] Comment on above: Order Comment: Speci men Type: BLOOD SPECIMENOrdering Facility: [facility] Address: [address] [place] [address] Performed By: #### 3 016-3, 79355-3, 3024-7, 305-0 ####[facility] LABIA [id number] [place] [address] [place] T4 Free SerPl-mCncon 05-11-2 025 Free T4 [Mass/Vol] 1.0 ng/dL Normal 0.9-1.7 [facility] Comment on above: Order Comment: Val sarmiento Type: BLOOD SPECIMENOrdering Facility: [facility] Address: [address] [place] [address] Performed By: #### 3 016-3, 15547-2, 4-7, 305-0 ####[facility] LABCLIA [id number] [place] [address] [place] TSH SerPl-aCncon 05-11-2024 TSH Qn 1.040 m[IU]/L Normal 0.270-4.200 [facility] Comment on above: Order Comment: Specmonico sarmiento Type: BLOOD SPECIMENOrdering Facility: [facility] Address: [address] [place] [address] Result Comment: If t he patient is , TSH reference range varies by gestational period: First Trimester (weeks 9-12): 0.180-2.990 mIU/L Second Trimester: 0.110-3.980 mIU/L Third Trimester: 0.480-4.710 mIU/L Homero Mcintosh et al. A Practical Approach for the Verifications and Determination of Site- and Trimester-Specific Reference Intervals for Thyroid Function tests in . Thyroid, 2019:29:3:412-420. Ramsey Knight, et al. 2017 Guidelines of the [place] Thyroid Association for the Diagnosis and Management of Thyroid Disease during and the . Thyroid, 2017:27:3:315-389. Performed By: #### 3 016-3, 79897-7, 3023-7, 305-0 ####[facility] LABIA [id number] [place] [id number] [place] CNOVon 05-08-2024 CNOV Office Visit (FAMPWS ) BRIA WITT ([id number]) 1985 F Date Time Provider Department 05/08/24 8:00 AM SURYA BISHOP During your visit today, we recorded the following information about you: Pulse Respiration Blood pressure Weight 78/minute 14/minute 120/70 100.7 kg Height 1.651 m Surya Bishop PA-C 05/08/2024 9:54 AM Signed 05/08/2024 Patient presents with: Follow Up: 3 month follow up SUBJECTIVE: This is a 38 year old that is here today for follow up asthma and palpitations. Patient was diagnosed with COVID and pneumonia on 04/17/24 in . Treated with doxycycline, overall improving. Using albuterol 1-2 x day. She is on flovent for asthma, but admits to not using regularly. Denies fever/chills,cough improving. 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 She is now d/c to follow with [facility] per patient. She continues to have palpitations at times, prescribed Nadolol to use prn. Following with [facility]-cardiology. 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 Melvin palpitations in office today. Had ECG and then took nadolol. Denies Chest pain, pleuritic chest pain, leg swelling, calf pain. Notes some intermittent SOB, but had had this since the pneumonia, and overall slightly improved. Denies dizziness. 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/2015 Unspecified asthma(493.90) Unspecified drug dependence Not since 2000 Drug dependence/opium and marjuana use Ventricular premature depolarization ALLERGIES Bee Venom Protein (Honey Bee), Iv Dye [Iodine], Adenosine, Amoxicillin Trihydrate, Augmentin [Amoxicillin-Pot Clavulanate], Corticosteroids (Glucocorticoids), Feathers, Potassium Clavulanate, Prednisone, Silvadene [Silver Sulfadiazine], and Sulfa (Sulfonamide Antibiotics) MEDICATIONS Current Outpatient Medications Medication Sig metroNIDAZOLE (METROGEL VAGINAL) 0.75 % (37.5mg/5 gram) Vaginal Gel Use 1 applicator vaginally twice per week. albuterol (PROVENTIL) 2.5 mg /3 mL (0.083 %) nebulizer solution Use 3 mL via nebulizer every 4 hours as needed for wheezing/shortness of breath. Use over 5-15minutes. fluticasone (FLOVENT) 220 mcg/actuation inhaler Inhale 1 Puff as instructed two times a day. Shake well before use. Rinse mouth after use. levonorgestrel (MIRENA) 21 mcg/24 hr (8 yrs) 52 mg IUD 1 Each by INTRAUTERINE route as directed. albuterol HFA (PROVENTIL HFA, VENTOLIN HFA) 90 mcg/actuation inhaler Inhale 2 Puffs as instructed every 4 hours as needed. Selenium Sulfide 2.25 % sham Apply to affected area once daily (more content not included)... Normal [facility] Cardiology Visit Reporton Cardiology Visit Report [facility] [place] [address] OFFICE VISIT Date of Service: 05/01/24 MR#: [id number] Acct: [id number] Name: BRIA WITT Rep #: [id number] : 1985 Provider: Dr. Gio Holguin MD Age/Sex: 38/F Location[facility] Status: Signed HPI HPI History of Present Illness Details: This is a a 38-year old white female who presents for outpatient cardiovascular follow-up of a history of PVCs and palpitations superimposed on hyperlipidemia and hypertension. She has been evaluated by [facility] electrophysiology-Dr. Schneider. He recommended medical therapy. She denies chest, arm, jaw, or neck discomfort. She tells me that she is recovering from COVID and pneumonia at this time. She acknowledges occasional palpitations that she describes as irregular. She denies bilateral lower extremity edema, but acknowledges left lower extremity edema due to knee related issues. She denies claudication. She denies shortness of breath with activity, shortness of breath at rest, orthopnea, or PND. She denies chronic cough. She denies significant, sudden weight gain. She denies lightheadedness, dizziness, near-syncope, or syncope. She denies blood in urine, blood in stool, or epistaxis. He denies fever with chills. She denies myalgia. She denies fatigue. Her exercise level has remained stable. Intake Vital Signs 01/19/24 07:30 05/01/24 09:45 Height 5 ft 5 in 5 ft 5 in Weight: 222 lb BMI 36.9 BP 120/85 H Blood Pressure Location Lt brachial Position Sitting Respiration 16 Pulse 79 Pulse Source Monitor Intake Visit Reasons: 1 Y FU Social Work Coordinator Required: No Accompanied by: Self Is patient in pain?: No Allergies prednisone Allergy (Intermediate, Verified 05/01/24 09:48) Unknown silver sulfadiazine (From Silvadene) Allergy (Intermediate, Verified 05/01/24 09:48) Unknown bee venom protein (honey bee) Allergy (Verified 05/01/24 09:48) Unknown Corticosteroids (Glucocorticoids) (steriods) Allergy (Verified 05/01/24 09:48) NEEDS FOLLOW-UP Environmental Allergies: Uncoded Allergy (Verified 05/01/24 09:48) NEEDS FOLLOW-UP regadenoson Allergy (Verified 05/01/24 09:48) NEEDS FOLLOW-UP amoxicillin trihydrate (From Augmentin) Adverse Reaction (Verified 05/01/24 09:48) Nausea potassium clavulanate (From Augmentin) Adverse Reaction (Verified 05/01/24 09:48) Nausea Sulfa (Sulfonamide Antibiotics) Adverse Reaction (Verified 05/01/24 09:48) Nausea Medications ???Medication ???Instructions ???Recorded ???Confirmed ???Type clonazepam 0.5 mg tablet 0.5 mg PO 4X/DAY PRN Anxiety 06/18/19 05/01/24 History epinephrine 0.3 mg/0.3 mL 0.3 mg IM ONCE PRN Allergic 06/18/19 05/01/24 History injection, auto-injector Reaction acetaminophen 500 mg capsule 1,000 mg PO Q6H PRN Pain 08/29/19 05/01/24 History sertraline 100 mg tablet 100 mg PO DAILY 02/09/21 05/01/24 History fluticasone propionate 220 1 puff inhalation BID 10/27/21 05/01/24 History mcg/actuation HFA aerosol inhaler (Flovent HFA) selenium sulfide 2.25 % shampoo 1 applic topical 2XW 10/27/21 05/01/24 History nitroglycerin 0.4 mg sublingual 0.4 mg sublingual Q5M PRN Chest 04/12/22 05/01/24 Rx tablet Pain #25 tabs montelukast 10 mg tablet 10 mg PO DAILY 04/26/22 05/01/24 History (Singulair) coenzyme Q10 10 mg capsule 10 mg PO ONCE 12/16/22 05/01/24 History pravastatin 20 mg tablet See Rx Instructions .Route 01/23/24 05/01/24 Rx .COMPLEX #90 tabs meclizine 25 mg tablet See Rx Instructions .Route 03/22/24 05/01/24 Rx .COMPLEX #60 tabs albuterol sulfate 90 mcg/actuation 2 puff inhalation Q6H PRN 04/16/24 05/01/24 Rx aerosol inhaler shortness of breath or wheezing #8.5 grams nadolol 20 mg tablet 10 mg (1/2 x 20 mg) PO .PRN PRN 04/30/24 05/01/24 Rx Palpitations #30 tabs Lactobacillus acidophilus 20 20,000 mmu cells PO DAILY PRN 05/01/24 05/01/24 History billion cell capsule (Florajen Acidophilus) omeprazole 20 mg capsule,delayed 20 mg PO DAILY #90 caps 05/01/24 05/01/24 Rx release Have you fallen in the past year?: No [facility] Medical History CRPS (complex regional pain syndrome type I) Impetigo Dental caries Migraine Vitamin D deficiency History of bradycardia History of tachycardia History of panic disorder History of anxiety PVC's (premature ventricular contractions) PTSD (post-traumatic stress disorder) History of degenerative disc disease Essential hypertension GERD (gastroesophageal reflux disease) Psoriasis of scalp Sinusitis, acute Scabies infestation Thrush of mouth and esophagus Influenza A Incontinence Back pain Limb weakness Shoulder pain Lung disease Hemorrhoids Ovarian cyst Right a (more content not included)... Normal [facility] CNOVon 04-17-2024 [facility] Office Visit ([facility] ) BRIA WITT ([id number]) 1985 F Date Time Provider Department 04/17/24 10:15 AM ADRIANA COULTER [facility] During your visit today, we recorded the following information about you: Temperature Pulse Respiration Blood pressure 98.3 degrees 87/minute 20/minute 129/85 Weight 101.7 kg Adriana Coulter APRN.CNP 04/17/2024 11:07 AM Signed Subjective HPI HPI Bria Witt is a 38 year old female who presents today for CC of cough, congestion, sob, fever. This started 4 days ago. Has tried otc medication for relief. Symptoms are worsened by nothing. Risk factors sick exposures at home. 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 - right arm surgery SHOULDER SURGERY HX Left 01/26/2017 [facility] - Left shoulder surgery - repair [...] Augmentin [Amoxicillin-Pot Clavulanate], Corticosteroids (Glucocorticoids), Feathers, Potassium (more content not included)... Normal [facility] COVID AND INFLUENZA A/B AND RSV PCR, ROUTINEon 04-17-2024 SARS-CoV-2 (COVID-19) RNA RISHABH+probe Ql (Unsp spec) SARS-COV-2 (AGENT OF COVID-19) RNA: Detected INFLUENZA A RNA: Not detected INFLUENZA B RNA: Not detected RESPIRATORY SYNCYTIAL VIRUS (RSV) RNA: Not detected Abnormal [facility] Comment on above: Performed By: #### C VFLRS ####[facility] LABCLIA [id number] [place] STREP A MOLECULAR (POC)on Procedural Control Valid [facility] Strep A (POCT) Negative Negative [facility] XR CHEST 2V FRONTAL/LATon XR CHEST 2V FRONTAL/LAT * * *Final Report* * * DATE OF EXAM: Apr 17 2024 10:43AM WOX [id number] - XR CHEST 2V FRONTAL/LAT / PROCEDURE REASON: Acute cough * * * * Physician Interpretation * * * * EXAMINATION: CHEST RADIOGRAPH (2 VIEW FRONTAL and LATERAL) PATIENT/TECHNOLOGIST PROVIDED HISTORY: cough, congestion and low grade fever for 4 days CLINICAL HISTORY: 38 years old Female with Acute cough MQ: XC2_6 EXAM DATE/TIME: 04/17/2024 10:43 AM COMPARISON: Chest radiograph(s) dated 07/21/2019 RESULT: Lines, tubes, and devices: None. Lungs and pleura: Possible vague opacity LEFT perihilar region which may be infectious/inflammatory. No apparent consolidation. No pleural effusion or pneumothorax. Cardiomediastinal silhouette: Normal cardiomediastinal silhouette. Bones and soft tissues: Mild endplate degenerative changes in the thoracic spine. IMPRESSION: Possible vague opacity LEFT perihilar region which may be infectious/inflammatory. Steel Pourer Helper: PSCB Transcribe Date/Time: Apr 17 2024 10:44A Dictated by : BRIAN GRAVES DO This examination was interpreted and the report reviewed and electronically signed by: BRIAN GRAVES DO on Apr 17 2024 10:49AM EST [id number] Normal [facility] XR Chest PA and Lateralon IMPRESSION: Possible vague opacity LEFT perihilar region which may be infectious/inflammatory. Steel Pourer Helper: EDWARD Transcribe Date/Time: Apr 17 2024 10:44A Dictated by : BRIAN GRAVES DO This examination was interpreted and the report reviewed and electronically signed by: BRIAN GRAVES DO on Apr 17 2024 10:49AM EST DIVISION OF RADIOLOGY * * *Final Report* * * DATE OF EXAM: Apr 17 2024 10:43AM WOX [id number] - XR CHEST 2V FRONTAL/LAT / PROCEDURE REASON: Acute cough * * * * Physician Interpretation * * * * EXAMINATION: CHEST RADIOGRAPH (2 VIEW FRONTAL & LATERAL) PATIENT/TECHNOLOGIST PROVIDED HISTORY: cough, congestion and low grade fever for 4 days CLINICAL HISTORY: 38 years old Female with Acute cough MQ: XC2_6 EXAM DATE/TIME: 04/17/2024 10:43 AM COMPARISON: Chest radiograph(s) dated 07/21/2019 RESULT: Lines, tubes, and devices: None. Lungs and pleura: Possible vague opacity LEFT perihilar region which may be infectious/inflammatory. No apparent consolidation. No pleural effusion or pneumothorax. Cardiomediastinal silhouette: Normal cardiomediastinal silhouette. Bones and soft tissues: Mild endplate degenerative changes in the thoracic spine. DIVISION OF RADIOLOGY Provider, [facility] - 04/17/2024 * * *Final Report* * * DATE OF EXAM: Apr 17 2024 10:43AM WOX [id number] - XR CHEST 2V FRONTAL/LAT / PROCEDURE REASON: Acute cough * * * * Physician Interpretation * * * * EXAMINATION: CHEST RADIOGRAPH (2 VIEW FRONTAL & LATERAL) PATIENT/TECHNOLOGIST PROVIDED HISTORY: cough, congestion and low grade fever for 4 days CLINICAL HISTORY: 38 years old Female with Acute cough MQ: XC2_6 EXAM DATE/TIME: 04/17/2024 10:43 AM COMPARISON: Chest radiograph(s) dated 07/21/2019 RESULT: Lines, tubes, and devices: None. Lungs and pleura: Possible vague opacity LEFT perihilar region which may be infectious/inflammatory. No apparent consolidation. No pleural effusion or pneumothorax. Cardiomediastinal silhouette: Normal cardiomediastinal silhouette. Bones and soft tissues: Mild endplate degenerative changes in the thoracic spine. IMPRESSION IMPRESSION: Possible vague opacity LEFT perihilar region which may be infectious/inflammatory. Steel Pourer Helper: PSCB Transcribe Date/Time: Apr 17 2024 10:44A Dictated by : BRIAN GRAVES DO This examination was interpreted and the report reviewed and electronically signed by: BRIAN GRAVES DO on Apr 17 2024 10:49AM EST [facility] Radiology Study observation (narrative) [facility] XR Chest PA and LateralOrder ed By: Ccf Provider on 04-17-2024 [facility] Urgent Care Visit Reporton 1 06-17-2023 Urgent Care Visit Report [facility] [address], [address] [place] [address] OFFICE VISIT Date of Service: 04/16/24 MR#: [id number] Acct: [id number] Name: BRIA WITT Rep #: [id number] : 1985 Provider: HOLLI Caruso Age/Sex: 38/F Location[facility] Status: Signed Intake Vital Signs 01/19/24 07:30 04/16/24 07:32 Height 5 ft 5 in BP 120/78 Blood Pressure Location Lt brachial Position Sitting Respiration 12 Pulse 112 H Pulse Source NIBP Temp 98.7 F Temp Source Oral Pulse Oximetry (%) 98 Oxygen Delivery Method room air Intake Visit Reasons: COUGH/ST Chief Complaint: cough, sore throat, congestion x4 days Social Work Coordinator Required: No Is patient in pain?: No Allergies prednisone Allergy (Intermediate, Verified 04/16/24 07:33) Unknown silver sulfadiazine (From Silvadene) Allergy (Intermediate, Verified 04/16/24 07:33) Unknown bee venom protein (honey bee) Allergy (Verified 04/16/24 07:33) Unknown Corticosteroids (Glucocorticoids) (steriods) Allergy (Verified 04/16/24 07:33) NEEDS FOLLOW-UP Environmental Allergies: Uncoded Allergy (Verified 04/16/24 07:33) NEEDS FOLLOW-UP regadenoson Allergy (Verified 04/16/24 07:33) NEEDS FOLLOW-UP amoxicillin trihydrate (From Augmentin) Adverse Reaction (Verified 04/16/24 07:33) Nausea potassium clavulanate (From Augmentin) Adverse Reaction (Verified 04/16/24 07:33) Nausea Sulfa (Sulfonamide Antibiotics) Adverse Reaction (Verified 04/16/24 07:33) Nausea Is last menstrual period known: No Post menopausal: No Patient : No Have you fallen in the past year?: No Nurse's Note: patient here for cough, sore throat, congestion x4 days. [facility] Medical History CRPS (complex regional pain syndrome type I) Impetigo Dental caries Migraine Vitamin D deficiency History of bradycardia History of tachycardia History of panic disorder History of anxiety PVC's (premature ventricular contractions) PTSD (post-traumatic stress disorder) History of degenerative disc disease Essential hypertension GERD (gastroesophageal reflux disease) Psoriasis of scalp Sinusitis, acute Scabies infestation Thrush of mouth and esophagus Influenza A Incontinence Back pain Limb weakness Shoulder pain Lung disease Hemorrhoids Ovarian cyst Right axillary hidradenitis Depression Hyperlipidemia Chronic headaches Asthma Arthritis Anemia Seasonal allergies Surgical History History of left heart catheterization ( 11/2007) History of tubal ligation History of tonsillectomy History of arthroscopic surgery of shoulder History of open reduction and internal fixation (ORIF) procedure History of lymph node excision History of cholecystectomy History of myringotomy History of incision and drainage S/P wrist surgery History of shoulder surgery Biceps muscle tear Family History Mother Rheumatoid arthritis Heart disease CHF Father Diabetes Heart disease COPD (chronic obstructive pulmonary disease) Sister Asthma Diabetes Grandmother TIA (transient ischemic attack) Social History Smoking Status: Former smoker how long ago did patient quit smokin year ago second hand exposure: No alcohol intake: never substance use type: does not use caffeine: Yes Type: coffee Number of servings: 2 what type of physical activity do you participate in: none and walking frequency: daily uday/congregation: None seatbelt use: always HPI HPI Chief Complaint: cough, sore throat, congestion x4 days Details: BRIA WITT, is a 38 F who presents to the office today for initial evaluation in the [facility] for approximately 4 days h/o cough, congestion, and irritated/ sore throat. Patient notes no complaints of chest pain or shortness of breath or dyspnea on exertion. Several close contacts recently dx???d w/ similar URI complaints. Ex-smoker x 2 years. Declines POC screening upon offering. No nzjn-hjj-ebhtthy taken to assist. No other associated symptoms and no other alleviating/aggravating factors. ROS Const Constitutional: No other (As above) Exam Const General: cooperative, healthy appearing and no acute distress Orientation: alert, awake and oriented x3 HENMT Head: normal to inspection Ears: hearing grossly normal bilaterally, external ears normal, TM's normal bilaterally and EAC's normal Nose: external nose normal, nares normal, septum normal and clear nasal discharge Face and sinus: normal facial exam, sinuses nontender and face symmetric Mouth: oral mucosae normal, lip normal, tongue normal and oropharynx normal Throat: posterior orophar (more content not included)... Normal [facility] 03-19-2024 [facility] Telephone ([facility]) BRIA WITT ([id number]) 1985 F Date Time Provider Department 03/19/24 HEBER FERRELL [facility] During your visit today, we recorded the following information about you: Heber Ferrell MD 03/19/2024 7:15 AM Signed Urine was not a clean sample so culture did not show a clear infection. Finish antibiotic and follow up with PCP, urology, or DISTILLERY WORKER GENERAL if symptoms persist. Irma Cardenas MA 03/19/2024 7:23 AM Signed Patient given results and verbalized understanding of instructions given. Irma Cardenas MA Allergies As of Date: 03/19/2024 Noted Allergy Reaction BEE VENOM PROTEIN (HONEY BEE) 05/30/2018 10 - Anaphylaxis Comments: none IV DYE (IODINE) 05/03/2023 10 - Anaphylaxis ADENOSINE 05/30/2018 5 - Intolerance Comments: paralyzed for 8 hours AMOXICILLIN TRIHYDRATE 09/11/2021 11 - Vomiting AUGMENTIN (AMOXICILLIN-POT CLAVUL*09/21/2010 11 - Vomiting CORTICOSTEROIDS (GLUCOCORTICOIDS) 05/30/2018 5 - Intolerance Comments: Joint swelling FEATHERS 05/30/2018 5 - Intolerance Comments: Allergic to bird dander POTASSIUM CLAVULANATE 05/30/2018 8 - GI Upset PREDNISONE 01/01/2010 7 - Swelling Comments: Severe joint and spine pain and unable to move- able to have injections of joints, just not spine SILVADENE (SILVER SULFADIAZINE) 01/17/2008 5 - Intolerance Comments: Dizziness/nausea SULFA (SULFONAMIDE ANTIBIOTICS) 02/20/2008 8 - GI Upset Date Reviewed: 03/17/2024 Reviewed by: Deloris Whittaker MA - Fully Assessed Reason for Visit: Results [95] Cmt: Urine Cx mixed Prescriptions as of 03/19/2024 - cephALEXin (KEFLEX) 500 mg capsule Take 1 capsule by mouth four times daily for 7 days. - fmlsdhxt-eyrbronzd-rnpogybv tisone (CORTISPORIN) 3.5-10,000-1 mg/mL-unit/mL-% otic suspension Use 3 Drops in both ears four times daily. - metroNIDAZOLE (METROGEL VAGINAL) 0.75 % (37.5mg/5 gram) Vaginal Gel Use 1 applicator vaginally twice per week. - albuterol (PROVENTIL) 2.5 mg /3 mL (0.083 %) nebulizer solution Use 3 mL via nebulizer every 4 hours as needed for wheezing/shortness of breath. Use over 5-15minutes. - fluticasone (FLOVENT) 220 mcg/actuation inhaler Inhale 1 Puff as instructed two times a day. Shake well before use. Rinse mouth after use. - levonorgestrel (MIRENA) 21 mcg/24 hr (8 yrs) 52 mg IUD 1 Each by INTRAUTERINE route as directed. - albuterol HFA (PROVENTIL HFA, VENTOLIN HFA) 90 mcg/actuation inhaler Inhale 2 Puffs as instructed every 4 hours as needed. - Selenium Sulfide 2.25 % sham Apply to affected area once daily. - Nebulizer Accessories misc 1 Each as needed. - ibuprofen (MOTRIN) 800 mg tablet Take 1 tablet by mouth every 8 hours as needed for pain. Take with food. - nystatin (MYCOSTATIN) 100,000 unit/mL suspension Take 5 mL by mouth four times daily. 1tsp swish in mouth for several minutes, then swallow (or expectorate) 4 times daily until gone. - triamcinolone acetonide (KENALOG) 0.1 % ointment Apply to affected area two times a day. - omeprazole (PRILOSEC) 20 mg capsule TAKE 1 CAPSULE BY MOUTH 1/2 HOUR before breakfast - Nebulizers 1 Each as needed. Nebulizer with accessories/tubing - ubidecarenone (H2Q COQ10 ORAL) Take by mouth. 50mg x1 daily - oxyCODONE-acetaminophen (PERCOCET) 5-325 mg tablet Take 1-2 tablets by mouth as directed. Every 4-6 hours as needed for pain. - nadolol (CORGARD) 20 mg tablet Take 0.5 tablets by mouth twice daily. - Lactobacillus acidophilus (FLORAJEN ACIDOPHILUS) 20 billion cell cap Take 460 mg by mouth once daily. - clonazePAM (KLONOPIN) 0.5 mg tablet Take 1 tablet by mouth four times daily as needed. - EPINEPHrine (EPIPEN) 0.3 mg/0.3 mL auto-injector [...] Take 100 mg by mouth twice daily. Meds Comments as of 11/03/2009: Problem List As Of Date 03/19/2024 Noted Resolved Non-Healing Surgical Wound [T81.89XA] 01/16/2008 [...] region [M25.519] 01/25/2011 Other and unspecified disc dis (more content not included)... Normal [facility] Bacteria Ur Culton Bacteria identified Cx Nom (U) ORGANISM ID: 1 10,000 -<50,000 CFU/ml Normal urogenital wilian Normal [facility] Comment on above: Performed By: #### 6 30-4 ####[facility] LABCLIA [id number] [place] [address] [place] CNOVon 03-17-2024 CNOV Office Visit (UCWSTR ) BRIA WITT ([id number]) 1985 F Date Time Provider Department 03/17/24 1:45 PM DERIC LATHAM [facility] During your visit today, we recorded the following information about you: Temperature Pulse Respiration Blood pressure 98.2 degrees 90/minute 21/minute 118/62 Weight 100.1 kg Deric Latham APRN.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 03/17/2024 1:56 PM Signed CC: Patient presents with: Urinary Problem: Frequency x 2 days Left ear pain x 4 days HPI: Bria Witt is a 38 year old female who presents to the office with complaint of ear symptoms for a few days. Symptoms are staying the same. Associated symptoms includes sore throat, cough, and urinary frequency. Denies fever, nausea, vomiting , and diarrhea. Treatments tried include nothing so far. with no relief of symptoms. Sick contacts: unknown. History of asthma, frequent episodes of bronchitis, chronic bronchitis, bronchiectasis or COPD: No Smoker: No Seasonal/environmental allergies: No The ROS is otherwise negative. The patient's pmh, medications, allergies, and past visits are reviewed. PHYSICAL EXAM: BP 118/62 Pulse 90 Temp 36.8 ?C (98.2 ?F) Resp 21 Wt 100.1 kg (220 lb 10.9 oz) LMP 01/13/2024 (Exact Date) SpO2 98% BMI 36.72 kg/m? General appearance: alert, cooperative, pleasant, in no acute distress Head: Normocephalic Eyes: EOM's intact, conjunctiva pink and moist, no icterus, sclera white, non-injected Ears: Right ear: External ear/canal- Normal, TM - clear with good landmarks. Left ear: External ear/canal- Normal, TM - erythematous Oropharynx:moist without lesions, uvula midline, tonsils surgically absent Heart: Negative. RRR without obvious murmur, gallop, or rubs. No ectopy. 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 Normal [facility] UA DIP, URINE (POC)on 2023 BILIRUBIN UA (POCT) Negative Negative [facility] CLARITY UA (POCT) Clear [facility] COLOR UA (POCT) Yellow [facility] GLUCOSE UA (POCT) Negative Negative mg/dL [facility] Hemoglobin Ql (U) Trace-lysed Abnormal Negative [facility] Interpretation and review of laboratory results Abnormal [facility] KETONE UA (POCT) Negative Negative mg/dL [facility] LEUKOCYTES UA (POCT) Trace Abnormal Negative [facility] NITRITE UA (POCT) Negative Negative [facility] PH UA (POCT) 7.0 4.5 - 8.0 [facility] Protein Ql (U) Negative Negative mg/dL [facility] SPECIFIC GRAVITY UA (POCT) 1.020 1.005 - 1.030 [facility] UROBILINOGEN UA (POCT) 0.2 Normal E.U./dL [facility] Location:[address], [id number] [place] [address] POINT OF CARE [facility] BACTERIAL VAGINOSIS NAATon 1 Lactobacillus crispatus+gasseri+j ensenii + Gardnerella vaginalis + Atopobium vaginae rRNA RISHABH+probe Ql (Vag fld) Positive Abnormal Negative for bacterial vaginosis [facility] Comment on above: Order Comment: Speci men Type: SWABOrdering Facility: [facility] Address: [address] [place] [address] Performed By: #### C VTV, BVAMP ####[facility] LABCLIA [id number] [place] [address] [place] MARTÍN/TRICHOMONAS NAATon 1 C. glabrata RNA RISHABH+probe Ql (Vag fld) Negative Normal Negative for Martín glabrata [facility] Comment on above: Order Comment: Speci men Type: SWABOrdering Facility: [facility] Address: [address] [place] [address] Performed By: #### C VTV, BVAMP ####[facility] LABCLIA [id number] [place] [address] [place] Martín sp DNA RISHABH+probe Ql (Vag fld) Negative Normal Negative for Martín species [facility] Comment on above: Order Comment: Speci men Type: SWABOrdering Facility: [facility] Address: [address] [place] [address] Performed By: #### C VTV, BVAMP ####[facility] LABCLIA [id number] [place] [address] [place] T. vaginalis DNA RISHABH+probe Ql (Unsp spec) Negative Normal Negative for Trichomonas vaginalis by amplification [facility] Comment on above: Order Comment: Speci men Type: SWABOrdering Facility: [facility] Address: [address] [place] [address] Performed By: #### C VTV, BVAMP ####[facility] LABCLIA [id number] [place] [address] [place] CNOVon 03-05-2024 CNOV Office Visit (OBGYWM ) DEBRABRIA VINES ([id number]) 1985 F Date Time Provider Department 03/05/24 8:20 AM NGA MICHEL During your visit today, we recorded the following information about you: Blood pressure Weight Height Last Period 104/70 98.3 kg 1.651 m 01/13/24 Nga Michel MD 03/05/2024 12:31 PM Signed BVAChaperone offered: Radha Fraser is a 38 year old who presents for an annual gynecologic exam with complaints, vaginal discharge, vaginal itching, and vulvar irritation. Gets frequent BV infections. Prefers metrogel Menses: no menses - Mirena IUD. Contraception: IUD HPV vaccine: No Last Pap: 03/18/2022 normal HPV: 03/18/2022 negative History of abnormal pap: Yes Last mammogram: 09/14/2023 Sexually active: No OB History T5 L6 SAB2 IAB0 Ectopic0 Multiple0 Live Births4 Denture Model Maker History LMP: 01/13/2024 (Exact Date), IUD Age at Menarche: Age at First : Age at Menopause: Denture Model Maker History Comments: Sexual Activity: Yes; Male Contraception: Tubal Ligation, I.U.D. 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 - right arm surgery SHOULDER SURGERY HX Left 01/26/2017 [facility] - Left shoulder surgery - repair of slap tear and arthroscopy SURGICAL EXTRACTION ERUPTED TOOTH 03/03/2009 had all top teeth removed TONSILLECTOMY PRIMARY/SECONDARY Tonsillectomy TUBAL LIGATION, 2011 TYMPANIC MEMB (more content not included)... 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 Bria Witt presents today for IUD check. She had a Mirena placed on 01/13/24. She has had spotting since placement. REVIEW OF SYSTEMS: GENERAL: No weight loss, malaise or fevers : No history of dysuria, frequency or incontinence DISTILLERY WORKER GENERAL: Negative for abnormal vaginal bleeding, abnormal vaginal discharge SENSITIVE EXAM: The sensitive examination was discussed with the Patient or Patient's Authorized Bottling Room Worker. As applicable, any other physician, advance practice provider, medical student, or other health professional student that will be observing or involved in the sensitive examination for educational or training purposes was discussed with the Patient or Authorized Bottling Room Worker. The Patient or Authorized Bottling Room Worker has agreed to proceed with the sensitive examination. (Sensitive examination includes inspection and/or palpation of the breasts, pelvis, prostate and anorectal regions). PHYSICAL EXAMINATION: LMP 11/26/2023 ABDOMEN:soft, non-tender, no masses, no hepatosplenomegaly, and no lymphadenopathy EXTERNAL GENITALIA: Normal genitalia and Bartholins, Urethra, Sken'e normal CERVIX: smooth, no lesions. IUD strings visible. UTERUS: normal size ADNEXA: negative for tenderness or masses IMPRESSION/PLAN: IUD correctly positioned. Allergies As of Date: 02/15/2024 Noted Allergy Reaction BEE VENOM PROTEIN (HONEY BEE) 05/30/2018 10 - Anaphylaxis Comments: none IV DYE (IODINE) 05/03/2023 10 - Anaphylaxis ADENOSINE 05/30/2018 5 - Intolerance Comments: paralyzed for 8 hours AMOXICILLIN TRIHYDRATE 09/11/2021 11 - Vomiting AUGMENTIN (AMOXICILLIN-POT CLAVUL*09/21/2010 11 - Vomiting CORTICOSTEROIDS (GLUCOCORTICOIDS) 05/30/2018 5 - Intolerance Comments: Joint swelling FEATHERS 05/30/2018 5 - Intolerance Comments: Allergic to bird dander POTASSIUM CLAVULANATE 05/30/2018 8 - GI Upset PREDNISONE 01/01/2010 7 - Swelling Comments: Severe joint and spine pain and unable to move- able to have injections of joints, just not spine SILVADENE (SILVER SULFADIAZINE) 01/17/2008 5 - Intolerance Comments: Dizziness/nausea SULFA (SULFONAMIDE ANTIBIOTICS) 02/20/2008 8 - GI Upset Date Reviewed: 02/15/2024 Reviewed by: Nga Michel MD - Fully Assessed Reason for Visit: IUD [60] Primary Visit Diagnosis:Surveillance of previously prescribed intrauterine contraceptive device [Z30.431] Prescriptions as of 02/15/2024 - albuterol (PROVENTIL) 2.5 mg /3 mL (0.083 %) nebulizer solution Use 3 mL via nebulizer every 4 hours as needed for wheezing/shortness of breath. Use over 5-15minutes. - fluticasone (FLOVENT) 220 mcg/actuation inhaler Inhale 1 Puff as instructed two times a day. Shake well before use. Rinse mouth after use. - levonorgestrel (MIRENA) 21 mcg/24 hr (8 yrs) 52 mg IUD 1 Each by INTRAUTERINE route as directed. - albuterol HFA (PROVENTIL HFA, VENTOLIN HFA) 90 mcg/actuation inhaler Inhale 2 Puffs as instructed every 4 hours as needed. - Selenium Sulfide 2.25 % sham Apply to affected area once daily. - Nebulizer Accessories misc 1 Each as needed. - ibuprofen (MOTRIN) 800 mg tablet Take 1 tablet by mouth every 8 hours as needed for pain. Take with food. - nystatin (MYCOSTATIN) 100,000 unit/mL suspension Take 5 mL by mouth four times daily. 1tsp swish in mouth for several minutes, then swallow (or expectorate) 4 times daily until gone. - triamcinolone acetonide (KENALOG) 0.1 % ointment Apply to affected area two times a day. - omeprazole (PRILOSEC) 20 mg capsule TAKE 1 CAPSULE BY MOUTH 1/2 HOUR before breakfast - Nebulizers 1 Each as needed. Nebulizer with accessories/tubing - ubidecarenone (H2Q COQ10 ORAL) Take by mouth. 50mg x1 daily - oxyCODONE-acetaminophen (PERCOCET) 5-325 mg tablet Take 1-2 tablets by mouth as directed. Every 4-6 hours as needed for pain. - nadolol (CORGARD) 20 mg tablet Take 0.5 tablets by mouth twice daily. - Lactobacillus acidophilus (FLORAJEN ACIDOPHILUS) 20 billion cell cap Take 460 mg by mouth once daily. - clonazePAM (KLONOPIN) 0.5 mg tablet Take 1 tablet by mouth four times daily as needed. - EPINEPHrine (EPIPEN) 0.3 mg/0.3 mL auto-injector [...] mg by mouth twice daily as needed. (more content not included)... Normal [facility] CNOVon 02-06-2024 CNOV Office Visit (INTMWS ) MIRYAMBRIA ([id number]) 1985 F Date Time Provider Department 02/06/24 9:20 AM BRIANA LEGGETT INTMWS During your visit today, we recorded the following information about you: Pulse Respiration Blood pressure Weight 72/minute 16/minute 122/68 98 kg Briana Leggett APRN.CNP 02/06/2024 9:37 AM Signed CC: Patient presents with: Recheck: 6 month follow up HPI Bria Marybelantoniatamika is a 38 year old female who presents today for routine follow up. Paroxysmal tachycardia/palpitations - uses her nadolol as needed which is usually in a stressful situation. Has not even needed weekly: Ms. Witt indicates that she is feeling well and denies any symptoms referable to elevated blood pressure. Specifically denies headache, chest pain, palpitations, dyspnea (outside of asthma) , and peripheral edema. Patient denies any side effects of her medication(s) and is compliant with their regimen. She does not check BP's generally. Bria works out regularly 2 times per week with going to gym. She watches her diet for sodium, low fat and low cholesterol most of the time. Last 3 Encounter BP Readings: Date: BP: 02/06/2024 122/68 01/13/2024 104/62 12/14/2023 108/68 Asthma: Uses her albuterol daily for months but continues her flovent. Does not take her montelukast. Unsure if it is related to her issue with a polyp on her vocal chords. Has productive cough of clear sputum, wheezing, slight dyspnea on exertion, and feels like she is noticing more triggers. Does not smoke. No fever or chills. 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 Normal [facility] CNOVon 01-13-2024 CNOV Office Visit (OBGYWM ) BRIA WITT ([id number]) 1985 F Date Time Provider Department 01/13/24 9:00 AM NGA MICHEL During your visit today, we recorded the following information about you: Blood pressure Weight 104/62 97.1 kg Nga Michel MD 01/13/2024 10:02 AM Signed Bria presents today for IUD insertion for dysmenorrhea, menstrual dysfunction. Patient's last menstrual period was 11/26/2023 (exact date). GC/chlamydia: Negative on 12/14/23 test: negative Side effects including irregular bleeding were discussed with the patient. The patient understands that it should be removed in 8 years or sooner if the patient desires a . IUD source: office provided IUD lot #: [id number] Exp date: 01/06/2026 UNIVERSAL PROTOCOL / SAFETY CHECKLIST Procedure to be Performed: IUD insertion Sign In: A Moment of CARE was completed. Personnel directly involved with the procedure wore the appropriate PPE (Personal Protective Equipment). Patient/Surrogate Stated/Verified: PATIENT VERIFIED(optional for EMERGENT procedures): Patient name, Date of , Relevant allergies, and The intended procedure Time Out Communication: Intended patient and procedure match the source documents. Consent documented and matches the intended procedure. Sign Out: SIGN OUT (optional for EMERGENT procedures): No specimen collected. Nga Michel MD The cervix was prepped with betadine. The uterus sounded to 8 cm and the uterus is Midposition.. Using sterile technique, the Mirena IUD was inserted without difficulty and the string was cut to 3 cm from the external os of the cervix. Patient tolerated procedure well. PLAN: Patient was advised to observe for signs and symptoms of infection including but not limited to fever, malodorous vaginal discharge and/or pain. The patient was told to check the string monthly for accurate placement. Bleeding expectations were reviewed. Follow up for next annual exam or sooner as needed. MD Brook Cam Tabatha, MA 01/13/2024 9:08 AM Signed POST IUD INSTRUCTIONS You may have irregular bleeding during the first 3 months of use. You may have mild-severe cramping for the next 48 hours. You may use over the counter medication (Motrin, Tylenol) as needed. Your IUD must be removed or replaced based on the following table: IUD Type Removed or replaced within: Kristy 3 years Kyleena 5 years Mirena 8 years Liletta 8 years Paragard 10 years Call the office for signs/symptoms of infection such as severe cramping, fever, or unusual bleeding. Check for string placement as instructed by your doctor. If you have any additional questions, please contact the office. Referring Provider: ADELE COSTA [[id number]] Allergies As of Date: 01/13/2024 Noted Allergy Reaction BEE VENOM PROTEIN (HONEY BEE) 05/30/2018 10 - Anaphylaxis Comments: none IV DYE (IODINE) 05/03/2023 10 - Anaphylaxis ADENOSINE 05/30/2018 5 - Intolerance Comments: paralyzed for 8 hours AMOXICILLIN TRIHYDRATE 09/11/2021 11 - Vomiting AUGMENTIN (AMOXICILLIN-POT CLAVUL*09/21/2010 11 - Vomiting CORTICOSTEROIDS (GLUCOCORTICOIDS) 05/30/2018 5 - Intolerance Comments: Joint swelling FEATHERS 05/30/2018 5 - Intolerance Comments: Allergic to bird dander POTASSIUM CLAVULANATE 05/30/2018 8 - GI Upset PREDNISONE 01/01/2010 7 - Swelling Comments: Severe joint and spine pain and unable to move- able to have injections of joints, just not spine SILVADENE (SILVER SULFADIAZINE) 01/17/2008 5 - Intolerance Comments: Dizziness/nausea SULFA (SULFONAMIDE ANTIBIOTICS) 02/20/2008 8 - GI Upset Date Reviewed: 01/13/2024 Reviewed by: Nga Michel MD - Fully Assessed Reason for Visit: Insertion Of IUD [291] Primary Visit Diagnosis:Encounter for IUD insertion [Z30.430] Order(s):levonorgestrel 21 mcg/24 hr (8 yrs) 52 mg 1 Each intrauterine device (MIRENA)Disp: Rfl: levonorgestrel (MIRENA) 21 mcg/24 hr (8 yrs) 52 mg IUD1 Each by INTRAUTERINE route as directed.Disp: 1 EachRfl: 0 UA DIP,URINE HCG (POC) [[id number]] Order #: [id number]. #:[id number] -LAB Prescriptions as of 01/13/2024 - levonorgestrel (MIRENA) 21 mcg/24 hr (8 yrs) 52 mg IUD 1 Each by INTRAUTERINE route as directed. - albuterol HFA (PROVENTIL HFA, VENTOLIN HFA) 90 mcg/actuation inhaler Inhale 2 Puffs as instructed every 4 hours as needed. - Selenium Sulfide 2.25 % sham Apply to affected area once daily. - Nebulizer Accessories misc 1 Each as needed. - ibuprofen (MOTRIN) 800 mg tablet Take 1 tablet by mouth every 8 hours as needed for pain. Take with food. - metroNIDAZOLE (METROGEL VAGINAL) 0.75 % (37.5mg/5 gram) Vaginal Gel Use 1 applicator vaginally twice per week. - urinary tract infection test ([facility] ESSENTIALS UTI MISC) Cranberry supplement - nystatin (MYCOSTATIN) 100,000 unit/mL suspens (more content not included)... Normal [facility] UA DIP,URINE HCG (POC)on Beta HCG ( test) Ql (U) Negative Negative [facility] Comment on above: Location:[facility], [address], [place], [facility] Fermenter (POCT) Internal QC [facility] Location:[facility], [address], [address] POINT OF CARE [facility] Urgent Care Visit Reporton 0 12-22-2023 Urgent Care Visit Report [facility] [address], [address] [place] [address] OFFICE VISIT Date of Service: 12/22/23 MR#: [id number] Acct: [id number] Name: BRIA WITT Rep #: [id number] : 1985 Provider: HOLLI Barnes Age/Sex: 38/F Location: [facility] Status: Signed Intake Vital Signs 12/19/23 08:00 12/22/23 06:24 Height 5 ft 5 in BP 110/66 Blood Pressure Location Lt brachial Position Sitting Respiration 16 Pulse 86 Pulse Source NIBP Temp 99.2 F H Temp Source Temporal Pulse Oximetry (%) 96 Oxygen Delivery Method room air Intake Visit Reasons: ABSCESS IN GROIN AREA Chief Complaint: right groin abscess Social Work Coordinator Required: No Is patient in pain?: Yes Allergies prednisone Allergy (Intermediate, Verified 12/22/23 06:25) Unknown silver sulfadiazine (From Silvadene) Allergy (Intermediate, Verified 12/22/23 06:25) Unknown bee venom protein (honey bee) Allergy (Verified 12/22/23 06:25) Unknown Corticosteroids (Glucocorticoids) (steriods) Allergy (Verified 12/22/23 06:25) NEEDS FOLLOW-UP Environmental Allergies: Uncoded Allergy (Verified 12/22/23 06:25) NEEDS FOLLOW-UP regadenoson Allergy (Verified 12/22/23 06:25) NEEDS FOLLOW-UP amoxicillin trihydrate (From Augmentin) Adverse Reaction (Verified 12/22/23 06:25) Nausea potassium clavulanate (From Augmentin) Adverse Reaction (Verified 12/22/23 06:25) Nausea Sulfa (Sulfonamide Antibiotics) Adverse Reaction (Verified 12/22/23 06:25) Nausea Medications ???Medication ???Instructions ???Recorded ???Confirmed ???Type albuterol sulfate 90 mcg/actuation 2 puff inhalation Q4H PRN PRN 03/01/19 10/04/23 History aerosol inhaler Asthma clonazepam 0.5 mg tablet 0.5 mg PO 4X/DAY PRN Anxiety 06/18/19 10/04/23 History epinephrine 0.3 mg/0.3 mL 0.3 mg IM ONCE PRN Allergic 06/18/19 10/04/23 History injection, auto-injector Reaction acetaminophen 500 mg capsule 1,000 mg PO Q6H PRN Pain 08/29/19 10/04/23 History sertraline 100 mg tablet 100 mg PO DAILY 02/09/21 10/04/23 History omeprazole 20 mg capsule,delayed 20 mg PO DAILY 04/27/21 10/04/23 History release Lactobacillus acidophilus 20 20,000 mmu cells PO DAILY 10/27/21 10/04/23 History billion cell capsule (Florajen Acidophilus) fluticasone propionate 220 1 puff inhalation BID 10/27/21 10/04/23 History mcg/actuation HFA aerosol inhaler (Flovent HFA) selenium sulfide 2.25 % shampoo 1 applic topical 2XW 10/27/21 10/04/23 History nitroglycerin 0.4 mg sublingual 0.4 mg sublingual Q5M PRN Chest 04/12/22 10/04/23 Rx tablet Pain #25 tabs montelukast 10 mg tablet 10 mg PO DAILY 04/26/22 10/04/23 History (Singulair) coenzyme Q10 10 mg capsule 10 mg PO ONCE 12/16/22 10/04/23 History nadolol 20 mg tablet 10 mg (1/2 x 20 mg) PO .PRN PRN 01/21/23 10/04/23 Rx Palpitations #30 tabs pravastatin 20 mg tablet See Rx Instructions .Route 02/07/23 10/04/23 Rx .COMPLEX #90 tabs meclizine 25 mg tablet See Rx Instructions .Route 04/04/23 10/04/23 Rx .COMPLEX #60 tabs doxycycline monohydrate 100 mg 100 mg PO BID 10 days #20 tabs 12/22/23 12/22/23 Rx tablet Is last menstrual period known: No Post menopausal: No Patient : No Have you fallen in the past year?: No Nurse's Note: right groin abscess x 10 days. hx of hidradenitis in groins and axillas. denies drainage/fever at this time. doxycycline is typically ATB given per pt. [facility] Medical History CRPS (complex regional pain syndrome type I) Impetigo Dental caries Migraine Vitamin D deficiency History of bradycardia History of tachycardia History of panic disorder History of anxiety PVC's (premature ventricular contractions) PTSD (post-traumatic stress disorder) History of degenerative disc disease Essential hypertension GERD (gastroesophageal reflux disease) Psoriasis of scalp Sinusitis, acute Scabies infestation Thrush of mouth and esophagus Influenza A Incontinence Back pain Limb weakness Shoulder pain Lung disease Hemorrhoids Ovarian cyst Right axillary hidradenitis Depression Hyperlipidemia Chronic headaches Asthma Arthritis Anemia Seasonal allergies Surgical History History of left heart catheterization ( 11/2007) History of tubal ligation History of tonsillectomy History of arthroscopic surgery of shoulder History of open reduction and internal fixation (ORIF) procedure History of lymph node excision History of cholecystectomy History of myringotomy History of incision and drainage S/P wrist surgery History of shoulder surgery Biceps muscle tear Family History Mother Rheumatoid arthritis Heart disease (more content not included)... [facility] 12-15-2023 VELVETN Telephone (OBGYWM) BRIA WITT ([id number]) 1985 F Date Time Provider Department 12/15/23 ADELE COSTA OBKRISTYWOumar During your visit today, we recorded the following information about you: Adele Costa APRN.CNP 12/15/2023 7:28 AM Signed Please notify patient: + for BV again. She has recurrent BV. Is she using the Flagyl gel twice a week? Is she taking a Women's Health probiotic? MEL Hernandez Emily, APRN.CNP 12/15/2023 7:29 AM Signed Rx sent for Flagyl pill, take BID for 7 days. MEL Hernandez Jennifer, RN 12/15/2023 8:13 AM Signed If patient is using the Metrogel should she continue or stop and take the Flagyl? KIMBERLY Patel Emily, APRN.CNP 12/15/2023 8:14 AM Signed Can stop during oral treatment and then restart after. MEL Hernandez Jennifer, RN 12/15/2023 8:18 AM Signed Left message for patient to call office. Please see below. BV+ KIMBERLY Patel Jennifer, RN 12/15/2023 8:57 AM Signed Patient notified. She has not been using the Metrogel regularly. Maybe used it last week. Advised to start the Flagyl and then restart the Metrogel once finished with the Flagyl. Not taking a probiotic. Recommended Florajen. Patient took this before. She's unsure if she has refills of Metrogel left. Will check with pharmacy. Advised RX sent with x2 refills in June. KIMBERLY Patel Emily, APRN.VELVET 12/15/2023 9:37 AM Signed Thank you, recommend follow in 12-16 weeks to assess recurrent BV with maintenance therapy or sooner as needed. Adele Costa APRN.VELVET Allergies As of Date: 12/15/2023 Noted Allergy Reaction BEE VENOM PROTEIN (HONEY BEE) 05/30/2018 10 - Anaphylaxis Comments: none IV DYE (IODINE) 05/03/2023 10 - Anaphylaxis ADENOSINE 05/30/2018 5 - Intolerance Comments: paralyzed for 8 hours AMOXICILLIN TRIHYDRATE 09/11/2021 11 - Vomiting AUGMENTIN (AMOXICILLIN-POT CLAVUL*09/21/2010 11 - Vomiting CORTICOSTEROIDS (GLUCOCORTICOIDS) 05/30/2018 5 - Intolerance Comments: Joint swelling FEATHERS 05/30/2018 5 - Intolerance Comments: Allergic to bird dander POTASSIUM CLAVULANATE 05/30/2018 8 - GI Upset PREDNISONE 01/01/2010 7 - Swelling Comments: Severe joint and spine pain and unable to move- able to have injections of joints, just not spine SILVADENE (SILVER SULFADIAZINE) 01/17/2008 5 - Intolerance Comments: Dizziness/nausea SULFA (SULFONAMIDE ANTIBIOTICS) 02/20/2008 8 - GI Upset Date Reviewed: 12/14/2023 Reviewed by: Adele Costa APRN.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 - Fully Assessed Reason for Visit: Results [95] Primary Visit Diagnosis:Bacterial vaginosis [N76.0, B96.89] Order(s):metroNIDAZOLE (FLAGYL) 500 mg tabletTake 1 tablet by mouth two times a day for 7 days.Disp: 14 tabletRfl: 0 Prescriptions as of 12/15/2023 - metroNIDAZOLE (FLAGYL) 500 mg tablet Take 1 tablet by mouth two times a day for 7 days. - albuterol HFA (PROVENTIL HFA, VENTOLIN HFA) 90 mcg/actuation inhaler Inhale 2 Puffs as instructed every 4 hours as needed. - Selenium Sulfide 2.25 % sham Apply to affected area once daily. - Nebulizer Accessories misc 1 Each as needed. - ibuprofen (MOTRIN) 800 mg tablet Take 1 tablet by mouth every 8 hours as needed for pain. Take with food. - metroNIDAZOLE (METROGEL VAGINAL) 0.75 % (37.5mg/5 gram) Vaginal Gel Use 1 applicator vaginally twice per week. - urinary tract infection test ( ESSENTIALS UTI [facility]) Cranberry supplement - nystatin (MYCOSTATIN) 100,000 unit/mL suspension Take 5 mL by mouth four times daily. 1tsp swish in mouth for several minutes, then swallow (or expectorate) 4 times daily until gone. - miconazole (MONISTAT 7) 2 % vaginal cream Use 1 Applicator vaginally daily at bedtime. - triamcinolone acetonide (KENALOG) 0.1 % ointment Apply to affected area two times a day. - albuterol (PROVENTIL) 2.5 mg /3 mL (0.083 %) nebulizer solution Use 3 mL via nebulizer every 4 hours as needed for wheezing/shortness of breath. Use over 5-15minutes. - omeprazole (PRILOSEC) 20 mg capsule TAKE 1 CAPSULE BY MOUTH 1/2 HOUR before breakfast - Nebulizers 1 Each as needed. Nebulizer with accessories/tubing - ubidecarenone (H2Q COQ10 ORAL) Take by mouth. 50mg x1 daily - oxyCODONE-acetaminophen (PERCOCET) 5-325 mg tablet Take 1-2 tablets by mouth as directed. Every 4-6 hours as needed for pain. - FLOVENT HFA 110 mcg/actuation inhaler Inhale 1 Puff as instructed twice daily. - montelukast (SINGULAIR) 10 mg tablet Take 1 tablet by mouth once daily. - nadolol (CORGARD) 20 mg tablet Take 0.5 tablets by mouth twice daily. - Lactobacillus acidophilus (FLORAJEN ACIDOPHILUS) 20 billion cell cap Take 460 mg by mouth once daily. - clonazePAM (KLONOPIN) 0.5 mg tablet Take 1 tablet by mouth four times daily as needed. - guaiFENesin (MUCINEX) 600 mg 12 hr tablet Take 2 tablets by mouth twice daily. - EP (more content not included)... Normal [facility] BACTERIAL VAGINOSIS NAATon 0 12-14-2023 Lactobacillus crispatus+gasseri+j ensenii + Gardnerella vaginalis + Atopobium vaginae rRNA RISHABH+probe Ql (Vag fld) Positive Abnormal Negative for bacterial vaginosis [facility] Comment on above: Order Comment: Speci men Type: SWABOrdering Facility: [facility] Address: [address] [place] [address] Performed By: #### B VAMP, CVTV ####[facility] LABCLIA [id number] [place] [address] [place] C. trachomatis+N. gonorrhoea e DNA RISHABH+probe Ql (Unsp spec)on 12-14-2023 C. trachomatis rRNA RISHABH+probe Ql (Unsp spec) Negative Normal Negative for Chlamydia trachomatis by amplificaton [facility] Comment on above: Order Comment: Speci men Type: SWABOrdering Facility: [facility] Address: [address] [place] [address] Performed By: #### 3 6902-5 ####[facility] LABIA [id number] [place] [address] [place] N. gonorrhoeae rRNA RISHABH+probe Ql (Unsp spec) Negative Normal Negative for Neisseria gonorrhoeae by amplification [facility] Comment on above: Order Comment: Speci men Type: SWABOrdering Facility: [facility] Address: [address] [place] [address] Performed By: #### 3 6902-5 ####[facility] LABCLIA [id number] [place] [address] [place] MARTÍN/TRICHOMONAS NAATon 0 12-14-2023 C. glabrata RNA RISHABH+probe Ql (Vag fld) Negative Normal Negative for Martín glabrata [facility] Comment on above: Order Comment: Speci men Type: SWABOrdering Facility: [facility] Address: [address] [place] [address] Performed By: #### B VAMP, CVTV ####[facility]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 [facility] Comment on above: Performed By: #### 2 60532 #### [facility],[address] [place] [address] Hemoglobin (Bld) [Mass/Vol] 14.0 g/dL Normal 12.0 - 16.0 [facility] Comment on above: Performed By: #### 2 66332 #### [facility],[address] [place] [address] Lymph # 1.70 x10EE3/UL Normal 0.80 - 2.80 [facility] Comment on above: Performed By: #### 2 43386 #### [facility],[address] [place] [address] Lymphocytes/100 WBC (Bld) 26.5 % Normal 20.0 - 45.0 [facility] Comment on above: Performed By: #### 2 73231 #### [facility],[address] [place] [address] MANUAL DIFF N/A Normal [facility] Comment on above: Performed By: #### 2 29285 #### [facility],[address] [place] [address] MCH (RBC) [Entitic mass] 28 pg Normal 27 - 33 [facility] Comment on above: Performed By: #### 2 02908 #### [facility],[address] [place] [address] MCHC 33 X10 3 Normal 32 - 36 [facility] Comment on above: Performed By: #### 2 74054 #### [facility],[address] [place] [address] MCV (RBC) [Entitic vol] 86 fL Normal 80 - 99 [facility] Comment on above: Performed By: #### 2 90844 #### [facility],[address] [place] [address] Clay # 0.40 x10EE3/UL Normal 0.20 - 1.00 [facility] Comment on above: Performed By: #### 2 26505 #### [facility],[address] [place] [address] MONOS % 6.5 % Normal 0.0 - 10.0 [facility] Comment on above: Performed By: #### 2 07853 #### [facility],[address] [place], [place] [id number] Morphology Cale (Bld) [Interp] N/A Normal [facility] Comment on above: Performed By: #### 2 99768 #### [facility],[address] [place] [address] Neut # 4.10 x10EE3/UL Normal 1.50 - 7.10 [facility] Comment on above: Performed By: #### 2 81697 #### [facility],[address] [place] [address] Neutrophils/100 WBC (Bld) 65.0 % Normal 46.0 - 76.0 [facility] Comment on above: Performed By: #### 2 95069 #### [facility],[address] [place] [address] PLATELET 205 x10EE3/UL Normal 150 - 450 [facility] Comment on above: Performed By: #### 2 15488 #### [facility],[address] [place] [address] Platelet mean volume (Bld) [Entitic vol] 9.2 fL Normal 6.6 - 10.5 [facility] Comment on above: Result Comment: AUTO MATED DIFFERENTIAL Performed By: #### 2 66756 #### [address] [address] RBC 5.01 x 10EE6/UL Normal 4.10 - 5.30 [facility] Comment on above: Performed By: #### 2 75889 #### [facility],[address] [place], [place] [id number] WBC 6.3 x 10EE3/UL Normal 4.5 - 10.8 [facility] Comment on above: Performed By: #### 2 03666 #### [facility],[address] [place] [address] CMP with eGFRon 07-09-2022 AGE 37 years Normal [facility] Comment on above: Performed By: #### 2 13410 #### [facility],[address] [place] [address] Albumin [Mass/Vol] 3.8 g/dL Normal 3.4 - 5.0 [facility] Comment on above: Performed By: #### 2 38376 #### [facility],[address] [place] [address] Albumin/Globulin [Mass ratio] 1.0 {ratio} Normal 0.9 - 1.6 [facility] Comment on above: Performed By: #### 2 63264 #### [facility],[address] [place] [address] ALK PHOS 78 U/L Normal 46 - 116 [facility] Comment on above: Performed By: #### 2 71486 #### [facility],[address] [place] [address] ALT [Catalytic activity/Vol] 40 U/L Normal 14 - 59 [facility] Comment on above: Performed By: #### 2 84867 #### [facility],[address] [place] [address] Anion gap [Moles/Vol] 12 mmol/L Normal 10 - 20 [facility] Comment on above: Performed By: #### 2 59187 #### [facility],[address] [place] [address] AST [Catalytic activity/Vol] 24 U/L Normal 13 - 39 [facility] Comment on above: Performed By: #### 2 27664 #### [facility],[address] [place] [address] B/C RATIO 11 ratio Normal 0 - 30 [facility] Comment on above: Performed By: #### 2 45692 #### [facility],[address] [place] [address] Bilirubin [Mass/Vol] 0.4 mg/dL Normal 0.2 - 1.0 [facility] Comment on above: Performed By: #### 2 50311 #### [facility],[address] [place], [place] [id number] Calcium [Mass/Vol] 9.2 mg/dL Normal 8.5 - 10.1 [facility] Comment on above: Performed By: #### 2 56387 #### [facility],[address] [place], [place] [address] Chloride [Moles/Vol] 104 mmol/L Normal 98 - 107 [facility] Comment on above: Performed By: #### 2 82142 #### [facility],[address] [place], [place] [id number] CMP with eGFR Normal [facility] Comment on above: Result Comment: COMP REHENSIVE METABOLIC PANEL Performed By: #### 2 95022 #### [facility],[address] [place] [address] CO2 [Moles/Vol] 30.4 mmol/L Normal 21.0 - 32.0 [facility] Comment on above: Performed By: #### 2 32850 #### [facility],[address] [place], [place] [id number] Creatinine [Mass/Vol] 0.74 mg/dL Normal 0.55 - 1.02 [facility] Comment on above: Performed By: #### 2 78453 #### [facility],[address] [place], [place] [address] GFR/1.73 sq M.predicted among non-blacks MDRD (S/P/Bld) [Vol rate/Area] mL/min/{1.73_m2} Normal 60 - 999 [facility] Comment on above: Performed By: #### 2 50715 #### [facility],[address] [place] [address] Result Comment: ACCO RDING TO THE NATIONAL KIDNEY DISEASE EDUCATION PROGRAM(NKDE), A NORMAL eGFR IS A VALUE GREATER THAN OR EQUAL TO 60 ML/MIN/1.73 SQ METERS. CHRONIC KIDNEY DISEASE: <60mL/MIN/1.73 SQ METERS KIDNEY FAILURE: <15mL/MIN/1.73 SQ METERS THIS TEST SHOULD ONLY BE USED FOR PATIENTS 18 YEARS OF AGE AND OLDER. Globulin (S) [Mass/Vol] 3.7 g/dL Normal 1.5 - 3.8 [facility] Comment on above: Performed By: #### 2 60329 #### [facility],[address] [place] [address] Glucose [Mass/Vol] 115 mg/dL High 74 - 106 [facility] Comment on above: Performed By: #### 2 61711 #### [facility],[address] [place] [address] Potassium [Moles/Vol] 4.1 mmol/L Normal 3.5 - 5.1 [facility] Comment on above: Performed By: #### 2 59763 #### [facility],[address] [place] [address] Protein [Mass/Vol] 7.5 g/dL Normal 6.4 - 8.2 [facility] Comment on above: Performed By: #### 2 35113 #### [facility],[address] [place] [address] Sodium [Moles/Vol] 142 mmol/L Normal 136 - 145 [facility] Comment on above: Performed By: #### 2 53930 #### [facility],[address] [place] [address] Urea nitrogen [Mass/Vol] 8 mg/dL Normal 7 - 18 [facility] Comment on above: Performed By: #### 2 27353 #### [facility],[address] [place] [address] KNEE COMPLETE LT MIN 4 VIEWS on 07-09-2022 KNEE COMPLETE LT MIN 4 VIEWS [place] [address] Patient: BRIA WITT Phone#: : 1985 Age: 37 Gender: F Pt. Type: Out Account: [id number] Location: [facility] Ordering: ISABEL RITCHIE Exam Date: 07/09/2022/7:27 Family Phys: Charge Code: 488758 Physician: [place] Order #: [id number] Dose#: PROCEDURE: X-RAY KNEE LT COMPLETE 4 VIEWS COMPARISON: None. INDICATIONS: Pain. FINDINGS: BONES: No fracture or dislocation. Joint spaces are maintained. There is lateral patellar tilt measuring 11.4. SOFT TISSUES: Negative. No visible soft tissue swelling. EFFUSION: None visible. OTHER: Negative. CONCLUSION: 1. Lateral patellar tilt Dictated by: Jessica Nunez MD on 07/09/2022 at 8:31 Approved by: Jessica Nunez MD on 07/09/2022 at 8:34 Normal [facility] SEDRATEon 07-09-2022 SEDRATE 18 mm/hr Normal 0 - 30 [facility] Comment on above: Performed By: #### 2 [id number] #### [place] [address] T4-FREE (FREE THYROXINE)on 0 07-09-2022 Free T4 [Mass/Vol] 0.76 ng/dL Normal 0.76 - 1.46 [facility] Comment on above: Result Comment: P otential of falsely elevated results when biotin concentrations are > 10 ng/mL. Performed By: #### 2 [id number] #### [facility],[address] [place] [address] TSHon 07-09-2022 TSH Qn 1.15 m[IU]/L Normal 0.35 - 3.74 [facility] Comment on above: Performed By: #### 2 [id number] #### [facility],[address] [place] [address] URIC ACIDon 07-09-2022 Urate [Mass/Vol] 4.6 mg/dL Normal 2.6 - 6.0 [facility] Comment on above: Performed By: #### 2 [id number] #### [facility],[address] [place], [place] [id number] MRI SHOULDER WO IVCON RTon 0 05-11-2022 [facility] EMERGENCY REPORTon 2 EMERGENCY REPORT [facility] EMERGENCY ROOM REPORT NAME ACCOUNT SEX AGE ADMIT DISCHARGE PT MED. RECORD# NUMBER DATE DATE TYPE MIRYAM [id number] F 36 03/23/22 03/23/22 3 BRIA [id number] ROOM: ER DATE OF : 1985 DICTATING PHYSICIAN: Adore Gao ADDENDUM DIAGNOSTIC DATA: X-ray studies of the right shoulder and humerus were negative for any fracture or dislocation. EMERGENCY DEPARTMENT COURSE AND TREATMENT: The patient received Percocet one tablet p.o. and was reexamined. It seems her symptoms are related to an AC joint injury and possible rotator cuff tear, as no fracture or dislocation was present. A sling was administered. DIAGNOSES: 1. Right shoulder contusion. 2. Acromioclavicular joint injury. 3. Right rotator cuff injury. PLAN/DISPOSITION: Ice to the affected area, Percocet for pain, sling, and follow up with [facility] this week. Dictated By: Adore Gao MD 03/23/22 18:25 JOB #: [id number] Transcribed By: cachorro 03/25/22 06:55 Electronically signed by: Adore Gao M.D. 04/13/22 08:29 Page 1 of 1 BRIA WITT Emergency Room Report Normal [facility] EMERGENCY REPORT [facility] EMERGENCY ROOM REPORT NAME ACCOUNT SEX AGE ADMIT DISCHARGE PT MED. RECORD# NUMBER DATE DATE TYPE MIRYAM [id number] F 36 03/23/22 03/23/22 3 BRIA [id number] ROOM: ER DATE OF : 1985 DICTATING PHYSICIAN: Adore Gao CHIEF COMPLAINT: Fall. HISTORY OF PRESENT ILLNESS: This is a 36-year-old who was playing with her children and apparently she tripped and fell. She bumped her left hip on the edge of the bed frame, but hyperextended her right arm and complains of pain in the right shoulder, as well as the right arm. She denied any head or neck trauma or loss of consciousness. She presents now with right arm pain. There are no other alleviating or worsening conditions. It is worse with movement. PAST MEDICAL HISTORY: She has a history of a previous left biceps tendon tear. SOCIAL HISTORY: Negative for any smoking or drug usage. REVIEW OF SYSTEMS: GENERAL: No fever or chills. ENT: No head or neck injury. PULMONARY: No rib injury. CARDIAC: No chest pain. GI: No nausea or vomiting. MUSCULOSKELETAL: Right shoulder and right arm pain. NEUROLOGIC: No paresthesias or paralysis. No numbness or tingling. SKIN: There are no bruising or lacerations. All other review of systems are normal or negative. PHYSICAL EXAMINATION: GENERAL: She is awake, alert, coherent and cooperative in some minimal discomfort. HEENT: Head is normocephalic without evidence of trauma. Ears are clear without hemotympanum. Oropharynx shows moist mucous membranes. Eyes are equal, round, and reactive. NECK: Neck shows full range of motion without tenderness. LUNGS: Lungs are clear to auscultation and percussion. HEART: Heart showed regular rate and rhythm. Chest wall shows no rib tenderness or crepitus. ABDOMEN: Abdomen is soft, pliable and nontender. SKIN: Skin shows no bruising or laceration or ecchymosis. NEUROLOGIC: Cranial nerves II-XII, motor, sensory, and cerebellar function are all intact. Radial, ulnar, and median nerve motor and sensory function are intact. MUSCULOSKELETAL: Right shoulder shows tenderness over the humeral head. There is no obvious fracture or subluxation. There is AC joint tenderness. There is some laxity of the biceps tendon also with some mid humerus tenderness at this time. There is no pelvic instability. There is no lower extremity injury or trauma. LYMPHATICS: Lymphatics without any lymph node enlargement. PSYCHIATRIC: Normal affect. This concludes a temporary dictation on this patient. Page 1 of 2 BRIA WITT Emergency Room Report BRIA WITT : 1985 Dictated By: Adore Gao MD 03/23/22 17:12 JOB #: [id number] Transcribed By: am 03/25/22 06:38 Electronically signed by: Adore Gao M.D. 04/13/22 08:29 Page 2 of 2 BRIA WITT Emergency Room Report Normal [facility] HUMERUS RTon 03-23-2022 HUMERUS [place] [address] Patient: BRIA WITT Phone#: : 1985 Age: 36 Gender: F Pt. Type: ER Account: [id number] Location: 052 Ordering: DR. ADORE GAO Exam Date: 03/23/2022/17:35 Family Phys: Charge Code: 504109 Physician: [place] Order #: [id number] Dose#: PROCEDURE: X-RAY HUMERUS RT MIN 2 VIEWS COMPARISON: None. INDICATIONS: Trauma. FINDINGS: BONES: Normal. No significant arthropathy or acute abnormality. SOFT TISSUES: Negative. No visible soft tissue swelling. EFFUSION: None visible. OTHER: Negative. CONCLUSION: No acute disease. Dictated by: Zunilda Man MD on 03/23/2022 at 17:57 Approved by: Zunilda Man MD on 03/23/2022 at 17:58 Normal [facility] SHOULDER COMPLETE RTon 03-23 SHOULDER COMPLETE RT [place] [address] Patient: BRIA WITT Phone#: : 1985 Age: 36 Gender: F Pt. Type: ER Account: [id number] Location: 052 Ordering: DR. ADORE GAO Exam Date: 03/23/2022/17:40 Family Phys: Charge Code: 313295 Physician: [place] Order #: [id number] Dose#: PROCEDURE: X-RAY SHOULDER COMPLETE RT MIN 2 VIEWS COMPARISON: None. INDICATIONS: Trauma. FINDINGS: BONES: Surgical artifact is present overlying the proximal humeral shaft. SOFT TISSUES: Negative. No visible soft tissue swelling. EFFUSION: None visible. OTHER: Negative. CONCLUSION: No acute disease. Dictated by: Zunilda Man MD on 03/23/2022 at 17:58 Approved by: Zunilda Man MD on 03/23/2022 at 17:59 Normal [facility] Basic metabolic 2000 panelon 03-12-2022 Anion gap [Moles/Vol] 8 mmol/L Low 9 - 18 mmol/L [facility] Calcium [Mass/Vol] 9.4 mg/dL 8.5 - 10. 2 mg/dL [facility] Chloride [Moles/Vol] 102 mmol/L 97 - 105 mmol/L [facility] CO2 [Moles/Vol] 26 mmol/L 22 - 30 mmol/L [facility] Creatinine [Mass/Vol] 0.58 mg/dL 0.58 - 0.96 mg/dL [facility] Estimated Glomerular Filtration Rate 119 mL/min/1.73m >=60 mL/min/1.73m [facility] Glucose [Mass/Vol] 94 mg/dL 74 - 99 mg/dL [facility] Potassium [Moles/Vol] 4.2 mmol/L 3.7 - 5.1 mmol/L [facility] Sodium [Moles/Vol] 136 mmol/L 136 - 144 mmol/L [facility] Urea nitrogen [Mass/Vol] 9 mg/dL 7 - 21 mg/dL [facility] ECG COMPLETEon 01-19-2022 Atrial Rate 65 BPM [facility] Calculated P Custer 49 degrees [facility] Calculated R Custer 8 degrees [facility] Calculated T Custer -11 degrees [facility] P-R Interval 154 ms [facility] QRS Duration 88 ms [facility] QT Interval 376 ms [facility] QTC Calculation (Bazett) 391 ms [facility] Ventricular Rate 65 BPM [facility] XR ELBOW SPECIAL VIEWS AP/LA T/OTHER LEFTon 12-04-2021 [facility] XR Elbow - left AP and Later al and obliqueon 12-04-2021 IMPRESSION: No acute fracture or dislocation of the left elbow Steel 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 Helper: [facility] Transcribe Date/Time: Dec 04 2021 8:28A Dictated by : ANNA OTTO MD This examination was interpreted and the report reviewed and electronically signed by: ANNA OTTO MD on Dec 04 2021 8:29AM EST ZZZ_DO_NOT _USE_DIVIS ION OF RADIOLOGY * * *Final Report* * * DATE OF EXAM: Dec 04 2021 8:11AM WOX 5324 - XR ELBOW 3V AP/LAT/OTHER LT / PROCEDURE REASON: Elbow pain, left * * * * Physician Interpretation * * * * EXAMINATION: XR ELBOW 3V AP/LAT/OTHER LT CLINICAL HISTORY: Left elbow pain Technique: XR ELBOW 3V AP/LAT/OTHER LT -- LEFT with 3 views on 3 images Comparison: None RESULT: No acute fracture or dislocation. Joint spaces are maintained. ZZZ_DO_NOT _USE_DIVIS ION OF RADIOLOGY Provider, Marvin Rasheed - 12/04/2021 * * *Final Report* * * DATE OF EXAM: Dec 04 2021 8:11AM WOX 5324 - XR ELBOW 3V AP/LAT/OTHER LT / PROCEDURE REASON: Elbow pain, left * * * * Physician Interpretation * * * * EXAMINATION: XR ELBOW 3V AP/LAT/OTHER LT CLINICAL HISTORY: Left elbow pain Technique: XR ELBOW 3V AP/LAT/OTHER LT -- LEFT with 3 views on 3 images Comparison: None RESULT: No acute fracture or dislocation. Joint spaces are maintained. IMPRESSION IMPRESSION: No acute fracture or dislocation of the left elbow Steel Pourer Helper: EDWARD Transcribe Date/Time: Dec 04 2021 8:28A Dictated by : ANNA OTTO MD This examination was interpreted and the report reviewed and electronically signed by: ANNA OTTO MD on Dec 04 2021 8:29AM EST [facility] Radiology Study observation (narrative) [facility] XR Elbow - left AP and Later al and obliqueOrdered By: Ccf Provider on 12-04-2021 [facility] Absolute lymphocyte counton 11-16-2021 Lymphocytes Auto (Unsp spec) [#/Vol] 2.53 10*3/uL 0.83-4.51 [facility] Work Phone: Basophil percentageon 2021 Bilirubin [Mass/Vol] 0.30 mg/dL 0.20-1.00 [facility] Work Phone: Comment on above: For patients on eltr ombopag therapy, use of Dimension [place] TBIL is not recommended. Cholesterol [Mass/Vol] 199 mg/dL <200 [facility] Work Phone: Comment on above: <200 mg/dL Desirable 200-240 mg/dL Borderline >240 mg/dL High Risk Protein [Mass/Vol] 7.1 g/dL 6.4-8.2 [facility] Work Phone: Triglyceride [Mass/Vol] 148 mg/dL <199 [facility] Work Phone: [phone] Comment on above: The drugs N-Acetylcy steine and Metamizole may falsely depress this assay.Serum Triglycerides Reference Interval Normal <150 mg/dL Borderline high 150 - 199 mg/dL High 200 - 499 mg/dL Very High > or = 500 mg/dL Basophils/100 WBC (Bld) 0.7 % 0-1 [facility] Work Phone: Eosinophils/100 WBC (Bld) 0.9 % 0-5 [facility] Work Phone: Neutrophils (Bld) [#/Vol] 3.6 10*3/uL 2.0-7.7 [facility] Work Phone: Neutrophils/100 WBC (Bld) 54.6 % 47-70 [facility] Work Phone: WBC (Bld) [#/Vol] 6.7 10*3/uL 4.4-11.0 [facility] Work Phone: Blood erythrocytes count (nu mber/volume)on 11-16-2021 RBC (Bld) [#/Vol] 4.89 10*6/uL 4.2-5.4 [facility] Work Phone: Blood hemoglobin measurement (mass/volume)on 11-16-2021 Hemoglobin (Bld) [Mass/Vol] 14.0 g/dL 12.0-15.0 [facility] Work Phone: Blood lymphocytes/100 leukoc yteson 11-16-2021 Lymphocytes/100 WBC (Bld) 37.9 % 19-41 [facility] Work Phone: Blood monocytes/100 leukocyt eson 11-16-2021 Monocytes/100 WBC (Bld) 5.5 % 0-10 [facility] Work Phone: Blood platelet mean volumeon 11-16-2021 Platelet mean volume (Bld) [Entitic vol] 11.2 fL 6.2-12.0 [facility] Work Phone: [phone] Determination of erythrocyte mean corpuscular volume (MCV)on 11-16-2021 MCV (RBC) [Entitic vol] 88.8 fL 81-99 [facility] Work Phone: Direct bilirubinon Bilirubin.direct [Mass/Vol] 0.08 mg/dL 0.00-0.30 [facility] Work Phone: Hematocrit Auto (Bld) [Volum e fraction]on 11-16-2021 Hematocrit (Bld) [Volume fraction] 43.4 % 37-47 [facility] Work Phone: [phone] Laboratory - Chemistry and C hemistry - challengeon 11-16-2021 ALP [Catalytic activity/Vol] 65 U/L 45-117 [facility] Work Phone: [phone] ALT [Catalytic activity/Vol] 24 U/L 13-56 [facility] Work Phone: [phone] Globulin (S) [Mass/Vol] 3.6 g/dL 2.2-4.2 [facility] Work Phone: [phone] Laboratory - Hematology and Cell countson 11-16-2021 Erythrocyte distribution width (RBC) [Entitic vol] 44.2 fL 35.1-43.9 [facility] Work Phone: [phone] Erythrocyte distribution width (RBC) [Ratio] 13.5 % 11.6-14.6 [facility] Work Phone: [phone] Immature granulocytes/100 WBC (Bld) 0.400 % 0.0-0.9 [facility] Work Phone: [phone] Comment on above: IG% - Immature Granu locytes (promyelocytes, myelocytes and metamyelocytes) > 1% indicates that a LEFT SHIFT is Present. MCH (RBC) [Entitic mass] 28.6 pg 27.0-32.0 [facility] Work Phone: [phone] Nucleated RBC/100 WBC (Bld) [Ratio] 0 % 0-5 [facility] Work Phone: [phone] MCHC Auto (RBC) [Mass/Vol]on 11-16-2021 MCHC (RBC) [Mass/Vol] 32.3 g/dL 32-36 [facility] Work Phone: Platelets bldon 11-16-2021 Platelets (Bld) [#/Vol] 201 10*3/uL 150-450 [facility] Work Phone: Serum or plasma C reactive p rotein measurement (mass/volume)on 11-16-2021 CRP [Mass/Vol] 7.27 mg/L 0.0-3.0 [facility] Work Phone: Comment on above: C-Reactive Protein ( CRP) provides useful information for thediagnosis, therapy and monitoring of inflammatory processesand associated diseases. For the evaluation of Relative Riskfor Cardiovascular Disease, a High Sensitivity CRP (HSCRP)should be ordered. Serum or plasma albumin hunter urement (mass/volume)on 11-16-2021 Albumin [Mass/Vol] 3.5 g/dL 3.2-5.0 [facility] Work Phone: Serum or plasma cholesterol in HDL measurement (mass/volume)on 11-16-2021 Cholesterol in HDL [Mass/Vol] 32 mg/dL >40 [facility] Work Phone: Comment on above: The drugs N-Acetylcy steine and Metamizole may falsely depress this assay. Reference Range HDL <40 mg/dL Low HDL Cholesterol HDL >or= 60 mg/dL High HDL Cholesterol Serum or plasma cholesterol in VLDL measurement (mass/volume)on 11-16-2021 Cholesterol in VLDL [Mass/Vol] 30 mg/dL 5-40 [facility] Work Phone: Serum or plasma low density lipoprotein (LDL) cholesterol measurement (mass/volume)on 11-16-2021 Cholesterol in LDL [Mass/Vol] 137 mg/dL 0-130 [facility] Work Phone: Thin prep Papanicolaou smear with manual screeningon 11-16-2021 Thin prep Papanicolaou smear with manual screening 12 U/L 15-37 [facility] Work Phone: Absolute lymphocyte counton 09-11-2021 Lymphocytes Auto (Unsp spec) [#/Vol] 4.66 10*3/uL 0.83-4.51 [facility] Work Phone: Basophil percentageon 2021 Basophils/100 WBC (Bld) 0.5 % 0-1 [facility] Work Phone: Chloride [Moles/Vol] 103 mmol/L 98-107 [facility] Work Phone: Eosinophils/100 WBC (Bld) 1.2 % 0-5 [facility] Work Phone: Glucose [Mass/Vol] 97 mg/dL 74-106 [facility] Work Phone: Neutrophils (Bld) [#/Vol] 6.6 10*3/uL 2.0-7.7 [facility] Work Phone: Neutrophils/100 WBC (Bld) 53.5 % 47-70 [facility] Work Phone: Potassium [Moles/Vol] 3.6 mmol/L 3.5-5.1 [facility] Work Phone: Sodium [Moles/Vol] 137 mmol/L 136-145 [facility] Work Phone: WBC (Bld) [#/Vol] 12.3 10*3/uL 4.4-11.0 [facility] Work Phone: Blood erythrocytes count (nu mber/volume)on 09-11-2021 RBC (Bld) [#/Vol] 5.35 10*6/uL 4.2-5.4 [facility] Work Phone: Blood hemoglobin measurement (mass/volume)on 09-11-2021 Hemoglobin (Bld) [Mass/Vol] 15.1 g/dL 12.0-15.0 [facility] Work Phone: Blood lymphocytes/100 leukoc yteson 09-11-2021 Lymphocytes/100 WBC (Bld) 37.9 % 19-41 [facility] Work Phone: Blood manual differential co mment interpretation (narrative result)on 09-11-2021 Manual differential comment Cael (Bld) [Interp] SCANNED [facility] Work Phone: Blood monocytes/100 leukocyt eson 09-11-2021 Monocytes/100 WBC (Bld) 6.3 % 0-10 [facility] Work Phone: Blood platelet mean volumeon 09-11-2021 Platelet mean volume (Bld) [Entitic vol] 11.1 fL 6.2-12.0 [facility] Work Phone: Determination of erythrocyte mean corpuscular volume (MCV)on 09-11-2021 MCV (RBC) [Entitic vol] 87.1 fL 81-99 [facility] Work Phone: [phone] Hematocrit Auto (Bld) [Volum e fraction]on 09-11-2021 Hematocrit (Bld) [Volume fraction] 46.6 % 37-47 [facility] Work Phone: [phone] Laboratory - Chemistry and C hemistry - challengeon 09-11-2021 CO2 [Moles/Vol] 28.0 mmol/L 21.0-32.0 [facility] Work Phone: [phone] Magnesium [Mass/Vol] 2.2 mg/dL 1.6-2.6 [facility] Work Phone: [phone] Urea nitrogen/Creatinine [Mass ratio] 14.2 mg/mg 10-20 [facility] Work Phone: Laboratory - Hematology and Cell countson 09-11-2021 Erythrocyte distribution width (RBC) [Entitic vol] 43.4 fL 35.1-43.9 [facility] Work Phone: [phone] Erythrocyte distribution width (RBC) [Ratio] 13.5 % 11.6-14.6 [facility] Work Phone: [phone] Immature granulocytes/100 WBC (Bld) 0.600 % 0.0-0.9 [facility] Work Phone: [phone] Comment on above: IG% - Immature Granu locytes (promyelocytes, myelocytes and metamyelocytes) > 1% indicates that a LEFT SHIFT is Present. MCH (RBC) [Entitic mass] 28.2 pg 27.0-32.0 [facility] Work Phone: Nucleated RBC/100 WBC (Bld) [Ratio] 0 % 0-5 [facility] Work Phone: MCHC Auto (RBC) [Mass/Vol]on 09-11-2021 MCHC (RBC) [Mass/Vol] 32.4 g/dL 32-36 [facility] Work Phone: No Panel Informationon 09-11 Atypical Lymphocytes 1+ % [facility] Work Phone: Estimated Creatinine Clearance Calc 96.67 ml/min [facility] Work Phone: Estimated GFR (MDRD) Amer 119 mL/min >60 [facility] Work Phone: Comment on above: GFR Calc Estimated GFR (MDRD) Non-Af Amer 99 mL/min >60 [facility] Work Phone: Comment on above: Non- GFR Calc Troponin I High Sensitivity < 3 pg/mL 3.0-54.0 [facility] Work Phone: Comment on above: Please Note: New Mary t Units and Gender Specific Reference Ranges. For more information see Policy Stat Procedure [place] High Sensitivity Troponin (TNIH) and attachments. Platelets bldon 09-11-2021 Platelets (Bld) [#/Vol] 221 10*3/uL 150-450 [facility] Work Phone: Serum or plasma calcium hunter urement (mass/volume)on 09-11-2021 Calcium [Mass/Vol] 9.6 mg/dL 8.5-10.1 [facility] Work Phone: Serum or plasma choriogonado tropin detectionon 09-11-2021 HCG ( test) Ql < 1 mIU/mL <4 [facility] Work Phone: Comment on above: hCG levels with Gest ational AgeGestational Age hCG mIU/mL (IU/L)0.2 - 1 week 5 - 501-2 weeks 50 - 5002-3 weeks 100 - 45596-8 weeks 500 - 937780-8 weeks 1000 - 221173-2 weeks 16291 - 100,0006-8 weeks 55796 - 200,0002-3 months 65622 - 100,000 Serum or plasma creatinine m easurement (mass/volume)on 09-11-2021 Creatinine [Mass/Vol] 0.71 mg/dL 0.55-1.02 [facility] Work Phone: Comment on above: The validity of the calculated GFR & GFRAA in patients over 70 years has not been determined. Clinical correlation is essential. Serum or plasma urea nitroge n measurement (mass/volume)on 09-11-2021 Urea nitrogen [Mass/Vol] 10 mg/dL 7-18 [facility] Work Phone: Thin prep Papanicolaou smear with manual screeningon 09-11-2021 Thin prep Papanicolaou smear with manual screening 6 5-15 [facility] Work Phone: No Panel Informationon 05-29 POC SARS CoV-2 Antigen Negative [facility] Work Phone: XR UPPER GI W SMALL BOWEL SE RIESon 11-07-2019 XR UPPER GI W SMALL BOWEL SERIES * * *Final Report* * * DATE OF EXAM: Nov 07 2019 11:43AM MDX 5381 - XR UPPER GI W SMALL BOWEL SERIES / PROCEDURE REASON: R13.10-Dysphagia, unspecified type * * * * Physician Interpretation * * * * Study: Upper GI and Small bowel seires single contrast study. HISTORY: Indication: Dysphagia, unspecified type TECHNIQUE: Radiation time: 4:31 Images obtained: Multiple spot film images under fluoroscopic guidance. Comparison: NONE. RESULT: Findings: Esophagus: Swallowing function unremarkable.. No hiatal hernia is seen. No gastroesophageal reflux identified. Stomach: The stomach showed no evidence of persistent filling defects,ulceration or mass lesions. Small bowel findings: The duodenal bulb. They have deformity which may be related to previous ulcer with scarring. An acute ulcer cannot be completely excluded on this exam. Normal transit time. Terminal ileum was unremarkable IMPRESSION: 1. Some deformity of the duodenal bulb which may relate to previous ulcer disease with scarring. Acute ulcer cannot be completely excluded on this exam. Correlation with endoscopy recommended 2. Esophagus was unremarkableb. No evidence of reflux was seen. 3. The remainder the small bowel is unremarkable Steel Pourer Helper: [facility] Transcribe Date/Time: Nov 07 2019 12:29P Dictated by : RUDDY HUSSEIN DO This examination was interpreted and the report reviewed and electronically signed by: RUDDY HUSSEIN DO on Nov 07 2019 12:31PM EST [id number] Normal [facility] Clonazepam / Met, Uron 08-04 7-Amino Clonaz Metab 87 Normal [facility] Reference Lab Comment on above: Performed By: #### U TOX2 #### [facility] Routine Lab [address] [place] [address] #### UBENZC #### [facility] Chemistry [address] [place] [phone] #### UCLONO #### [facility] Reference [address] [place] [phone] Clonazepam, Urine 17 Normal [facility] Reference Lab Comment on above: Performed By: #### U TOX2 #### [facility] Routine Lab [address] [place] [address] #### UBENZC #### [facility] Chemistry [address] [place] [phone] #### UCLONO #### [facility] Reference [address] [place] [address] Benzo Confirm, Urineon 08-02 7aminoclonazepam, Ur 189 ng/mL High <40 [facility] Comment on above: Performed By: #### U TOX2 #### [facility] Routine Lab [address] [place] [phone] #### UBENZC #### [facility] Chemistry [address] [place] [phone] #### UCLONO #### [facility] Reference [address] [place] [address] Alpha hydroxyalp, Ur <60 Normal <60 [facility] Comment on above: Performed By: #### U TOX2 #### [facility] Routine Lab [phone] #### UBENZC #### [facility] Chemistry [address] [place], [place] [phone] #### UCLONO #### [facility] Reference [facility] [place] [phone] Alpha hydroxytri, Ur <40 Normal <40 [facility] Comment on above: Performed By: #### U TOX2 #### [facility] Routine Lab [facility] [place] [phone] #### UBENZC #### [facility] Chemistry [address] [place], [place] [phone] #### UCLONO #### [facility] Reference [address] [place] [address] Benzo Confirm, Note Normal [facility] Comment on above: Result Comment: This test is This test was developed and its performance characteristics determined by [facility] [place] ([facility]). It has not been cleared or approved by the FDA. [facility] is regulated under CLIA as qualified to perform high-complexity testing. This test is used for clinical purposes. It should not be regarded as investigational or for research. for Medical use This test was developed and its performance characteristics determined by [facility] [place] ([facility] [facility] It has not been cleared or approved by the FDA. [facility] is regulated under CLIA as qualified to perform high-complexity testing. This test is used for clinical purposes. It should not be regarded as investigational or for research. only. This test was developed and its performance characteristics determined by [facility] [place] ([facility]). It has not been cleared or approved by the FDA. [facility] is regulated under CLIA as qualified to perform high-complexity testing. This test is used for clinical purposes. It should not be regarded as investigational or for research. Performed By: #### U TOX2 #### [facility] Routine Lab [address] [place] [address] #### UBENZC #### [facility] [address] [phone] #### UCLONO #### [facility] Reference [address] [place], [place] [address] Lorazepam, Urine <40 Normal <40 [facility] [place] Reference Lab Comment on above: Performed By: #### U TOX2 #### [facility] [address] [phone] #### UBENZC #### [facility] [address] [phone] #### UCLONO #### [facility] [address] [phone] Nordiazepam, Urine <40 Normal <40 [facility] Reference Lab Comment on above: Performed By: #### U TOX2 #### [facility] [address] [phone] #### UBENZC #### [facility] [address] [address] #### UCLONO #### [facility] Reference [address] [address] Oxazepam, Urine <40 Normal <40 [facility] Reference Lab Comment on above: Performed By: #### U TOX2 #### [facility]ine [facility] [address] [phone] #### UBENZC #### [facility] [address] [address] #### UCLONO #### [facility] Reference [address] [place], [place] [address] Temazepam, Urine <40 Normal <40 [facility] [place] Reference Lab Comment on above: Performed By: #### U TOX2 #### [facility]ine [facility] [address] [place], [place] [address] #### UBENZC #### [facility] [address] [place], [place] [address] #### UCLONO #### [facility] [address] [place], [place] [address] Benzo Confirm, Urineon 07-26 CHROMATE,URINE <10 Normal <50 [facility] Reference Lab Comment on above: Performed By: #### U TOX2 #### [facility]ine [facility] [address] [address] #### UBENZC #### [facility] [address] [place], [place] [address] #### UCLONO #### [facility] Reference [address] [place], [place] [id number] CREATININE,URINE 149.9 mg/dL Normal 42.2-237.9 [facility] Reference Lab Comment on above: Performed By: #### U TOX2 #### [facility] Routine [facility] [address] [place], [place] [address] #### UBENZC #### [facility] [address] [place], [place] [address] #### UCLONO #### [facility] Reference [address] [place], [place] [id number] NITRITES,URINE 75 mg/L High <51 [facility] Reference Lab Comment on above: Performed By: #### U TOX2 #### [facility] Routine Lab [address] [place], [place] [id number] #### UBENZC #### [facility] [address] [place], [place] [id number] #### UCLONO #### [facility] Reference [address] [place], [place] [id number] OXIDANTS,URINE 157 mg/L Normal <200 [facility] Reference Lab Comment on above: Performed By: #### U TOX2 #### [facility]ine [facility] [address] [place], [place] [address] #### UBENZC #### [facility] [address] [place], [place] [address] #### UCLONO #### [facility] [address] [place], [place] [address] pH (U) 6.6 [pH] Normal 4.5-8.0 [facility] Reference Lab Comment on above: Performed By: #### U TOX2 #### [facility]ine [facility] [address] [place], [place] [address] #### UBENZC #### [facility] [address] [place], [place] [id number] #### UCLONO #### [facility] [address] [place], [place] [id number] QUALITY,URINE NOADUL Normal [facility] Reference Lab Comment on above: Performed By: #### U TOX2 #### [facility]ine [facility] [address] [place], [place] [address] #### UBENZC #### [facility] [address] [place], [place] [address] #### UCLONO #### [facility] [address] [place], [place] [address] SPEC GRAVITY,UR 1.018 Normal 1.002-1.030 [facility] [place] Reference Lab Comment on above: Performed By: #### U TOX2 #### [facility] Routine [facility] [address] [place], [place] [address] [phone] #### UBENZC #### [facility] [address] [place], [place] [address] [phone] #### UCLONO #### [facility] Reference [address] [place], [place] [address] [phone] Toxicology Screen,Uron 07-26 Amphetamines, Urine Negative Normal Negative [facility] Reference Lab Comment on above: Performed By: #### U TOX2 #### [facility]ine [facility] [address] [phone] #### UBENZC #### [facility] [address] [phone] #### UCLONO #### [facility] [address] [place], [place] [address] [phone] Barbiturates, Urine Negative Normal Negative [facility] Reference Lab Comment on above: Performed By: #### U TOX2 #### [facility]ine [facility] [address] [place], [place] [address] [phone] #### UBENZC #### [facility] [address] [phone] #### UCLONO #### [facility] [address] [place], [place] [address] Benzodiazepines, Ur Abnormal Negative [facility] Reference Lab Comment on above: Result Comment: Prel iminary Cutoff threshold at 200 ng/mL. positive. Cutoff threshold at 200 ng/mL. Performed By: #### U TOX2 #### [facility] Routine [facility] [address] [place], [place] [address] #### UBENZC #### [facility] [address] [place], [place] [address] #### UCLONO #### [facility] Reference [address], [place] [address] Cannabinoids, Urine Negative Normal Negative [facility] Reference Lab Comment on above: Performed By: #### U TOX2 #### [facility] Routine [facility] [address] [place], [place] [address] #### UBENZC #### [facility] [address] [place], [place] [address] #### UCLONO #### [facility] [address] [place], [place] [address] Cocaine, Urine Negative Normal Negative [facility] Reference Lab Comment on above: Performed By: #### U TOX2 #### [facility] Routine [facility] [address] [place], [place] [address] #### UBENZC #### [facility] [address] [place], [place] [address] #### UCLONO #### [facility] Reference [address] [place], [place] [address] Ethanol, Urine <11 Normal <11 [facility] Reference Lab Comment on above: Performed By: #### U TOX2 #### [facility] Routine [facility] [address] [place], [place] [address] #### UBENZC #### [facility] [address] [place], [place] [address] #### UCLONO #### [facility] Reference [address], [place] [address] Opiates, Urine Negative Normal Negative [facility] Reference Lab Comment on above: Performed By: #### U TOX2 #### [facility]ine [facility] [address] [place], [place] [address] #### UBENZC #### [facility] [address] [place], [place] [address] #### UCLONO #### [facility] Reference [address] [place], [place] [address] Oxycodone, Urine Negative Normal Negative [facility] [place] Reference Lab Comment on above: Performed By: #### U TOX2 #### [facility] Routine [facility] [address] [address] #### UBENZC #### [facility] [address] [address] #### UCLONO #### [facility] [address] [place], [place] [address] Phencyclidine, Urine Negative Normal Negative [facility] Reference Lab Comment on above: Performed By: #### U TOX2 #### [facility] Routine [facility] [address] [address] #### UBENZC #### [facility] [address] [place], [place] [address] #### UCLONO #### [facility] Reference [address] [place], [place] [address] No Panel Information [facility] Vital Signs Date Time Vital Sign Value Performing Clinician Facility 11-08-2024 14:15-040 Body mass index (BMI) [Ratio] 35.94 kg/m2 Clifton Schneider MD Work Phone: [facility] 11-08-2024 14:15-040 Body weight 97.98 kg Clifton Schneider MD Work Phone: [facility] 11-08-2024 14:15-040 Diastolic blood pressure 80 mm[Hg] Clifton Schneider MD Work Phone: [facility] 11-08-2024 14:15-040 Heart rate 83 /min Clifton Schneider MD Work Phone: [facility] 11-08-2024 14:15-0400 SaO2% (BldA) [Mass fraction] 98 % Clifton Schneider MD Work Phone: [facility] 11-08-2024 14:15-0400 Systolic blood pressure 116 mm[Hg] Clifton Schneider MD Work Phone: [facility] 11-05-2024 08:23-0400 Body mass index (BMI) [Ratio] 36.71 kg/m2 Koki Worthington MD Work Phone: [facility] 11-05-2024 08:23-0400 Body weight 100.06 kg Koki Worthington MD Work Phone: [facility] 11-05-2024 08:23-0400 Diastolic blood pressure 63 mm[Hg] Koki Worthington MD Work Phone: [facility] Comment on above: bp machine 11-05-2024 08:23-0400 Heart rate 61 /min Koki Worthington MD Work Phone: [facility] 11-05-2024 08:23-0400 SaO2% (BldA) [Mass fraction] 98 % Koki Worthington MD Work Phone: [facility] 11-05-2024 08:23-0400 Systolic blood pressure 108 mm[Hg] Koki Worthington MD Work Phone: [facility] Comment on above: bp machine 10-19-2024 10:31-0400 Body height 165.[address] Koki Worthington MD Work Phone: [facility] 10-19-2024 10:31-0400 Body mass index (BMI) [Ratio] 36.9 kg/m2 Dr. Koki Worthington MD Work Phone: [facility] 10-19-2024 10:31-0400 Body weight 100.[address] Koki Worthington MD Work Phone: [facility] 10-19-2024 10:31-0400 Diastolic blood pressure 79 mm[Hg] Dr. Koki Worthington MD Work Phone: [facility] 10-19-2024 10:31-0400 Heart rate 60 /min Dr. Koki Worthington MD Work Phone: [facility] 10-19-2024 10:31-0400 Respiratory rate 16 /min Dr. Koki Worthington MD Work Phone: [facility] 10-19-2024 10:31-0400 Systolic blood pressure 126 mm[Hg] Dr. Koki Worthington MD Work Phone: [facility] 09-06-2024 08:22-0400 Body mass index (BMI) [Ratio] 36.61 kg/m2 Briana Older RIDES ATTENDANT.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 Work Phone: [facility] 09-06-2024 08:22-0400 Body weight 99.79 kg Briana Older RIDES ATTENDANT.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 Work Phone: [facility] 09-06-2024 08:22-0400 Diastolic blood pressure 68 mm[Hg] Briana Older RIDES ATTENDANT.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 Work Phone: [facility] 09-06-2024 08:22-0400 Heart rate 78 /min Briana Older RIDES ATTENDANT.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 Work Phone: [facility] 09-06-2024 08:22-0400 Respiratory rate 16 /min Briana Older RIDES ATTENDANT.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 Work Phone: [facility] 09-06-2024 08:22-0400 SaO2% (BldA) [Mass fraction] 98 % Briana Older RIDES ATTENDANT.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 Work Phone: [facility] 09-06-2024 08:22-0400 Systolic blood pressure 124 mm[Hg] Briana Older RIDES ATTENDANT.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 Work Phone: [facility] 08-02-2024 14:08-0400 Body mass index (BMI) [Ratio] 36.44 kg/m2 Briana Older RIDES ATTENDANT.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 Work Phone: [facility] 08-02-2024 14:08-0400 Body temperature 98.01 [degF] Briana Older RIDES ATTENDANT.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 Work Phone: [facility] 08-02-2024 14:08-0400 Body weight 99.34 kg Briana Older RIDES ATTENDANT.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 Work Phone: [facility] 08-02-2024 14:08-0400 Diastolic blood pressure 64 mm[Hg] Briana Older RIDES ATTENDANT.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 Work Phone: [facility] 08-02-2024 14:08-0400 Heart rate 76 /min Briana Older RIDES ATTENDANT.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 Work Phone: [facility] 08-02-2024 14:08-0400 Respiratory rate 16 /min Briana Older RIDES ATTENDANT.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 Work Phone: [facility] 08-02-2024 14:08-0400 SaO2% (BldA) [Mass fraction] 97 % Briana Older RIDES ATTENDANT.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 Work Phone: [facility] 08-02-2024 14:08-0400 Systolic blood pressure 108 mm[Hg] Briana Older RIDES ATTENDANT.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 Work Phone: [facility] 07-23-2024 10:16-0400 Body mass index (BMI) [Ratio] 36.28 kg/m2 Briana Older RIDES ATTENDANT.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 Work Phone: [facility] 07-23-2024 10:16-0400 Body temperature 99.19 [degF] Briana Older RIDES ATTENDANT.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 Work Phone: [facility] 07-23-2024 10:16-0400 Body weight 98.88 kg Briana Older RIDES ATTENDANT.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 Work Phone: [facility] 07-23-2024 10:16-0400 Diastolic blood pressure 78 mm[Hg] Briana Older RIDES ATTENDANT.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 Work Phone: [facility] 07-23-2024 10:16-0400 Heart rate 68 /min Briana Older RIDES ATTENDANT.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 Work Phone: [facility] 07-23-2024 10:16-0400 Respiratory rate 16 /min Briana Older RIDES ATTENDANT.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 Work Phone: [facility] 07-23-2024 10:16-0400 SaO2% (BldA) [Mass fraction] 98 % Briana Older RIDES ATTENDANT.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 Work Phone: [facility] 07-23-2024 10:16-0400 Systolic blood pressure 117 mm[Hg] Briana Older RIDES ATTENDANT.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 Work Phone: [facility] 07-15-2024 14:19-0400 Body mass index (BMI) [Ratio] 37.31 kg/m2 Krislyn Aberegg PA Work Phone: [facility] 07-15-2024 14:19-0400 Body temperature 100.2 [degF] Krislyn Aberegg PA Work Phone: [facility] 07-15-2024 14:19-0400 Body weight 101.7 kg Krislyn Aberegg PA Work Phone: [facility] 07-15-2024 14:19-0400 Diastolic blood pressure 72 mm[Hg] Krislyn Aberegg PA Work Phone: [facility] 07-15-2024 14:19-0400 Heart rate 108 /min Krislyn Aberegg PA Work Phone: [facility] 07-15-2024 14:19-0400 Respiratory rate 18 /min Krislyn Aberegg PA Work Phone: [facility] 07-15-2024 14:19-0400 SaO2% (BldA) [Mass fraction] 97 % Krislyn Aberegg PA Work Phone: [facility] 07-15-2024 14:19-0400 Systolic blood pressure 120 mm[Hg] Krislyn Aberegg PA Work Phone: [facility] 07-01-2024 10:50-0500 Body mass index (BMI) [Ratio] 37.49 kg/m2 Malka Moomaw RIDES ATTENDANT.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 Work Phone: [facility] 07-01-2024 10:50-0500 Body temperature 98.2 [degF] Malka Moomaw RIDES ATTENDANT.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 Work Phone: [facility] 07-01-2024 10:50-0500 Body weight 102.2 kg Malka Moomaw RIDES ATTENDANT.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 Work Phone: [facility] 07-01-2024 10:50-0500 Diastolic blood pressure 64 mm[Hg] Malka Moomaw RIDES ATTENDANT.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 Work Phone: [facility] 07-01-2024 10:50-0500 Heart rate 90 /min Malka Moomaw RIDES ATTENDANT.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 Work Phone: [facility] 07-01-2024 10:50-0500 Respiratory rate 20 /min Malka Moomaw RIDES ATTENDANT.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 Work Phone: [facility] 07-01-2024 10:50-0500 SaO2% (BldA) [Mass fraction] 99 % Malka Moomaw RIDES ATTENDANT.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 Work Phone: [facility] 07-01-2024 10:50-0500 Systolic blood pressure 120 mm[Hg] Malka Moomaw RIDES ATTENDANT.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 Work Phone: [facility] 05-08-2024 09:12-0500 Diastolic blood pressure 70 mm[Hg] Surya Bogner PA-C Work Phone: [facility] 05-08-2024 09:12-0500 Heart rate 78 /min Surya Bogner PA-C Work Phone: [facility] Comment on above: 78-100 05-08-2024 09:12-0500 Systolic blood pressure 120 mm[Hg] Surya Bogner PA-C Work Phone: [facility] 05-08-2024 08:13-0500 Body height 165.1 cm Surya Bogner PA-C Work Phone: [facility] 05-08-2024 08:13-0500 Body mass index (BMI) [Ratio] 36.94 kg/m2 Surya Bogner PA-C Work Phone: [facility] 05-08-2024 08:13-0500 Body weight 100.7 kg Surya Bogner PA-C Work Phone: [facility] 05-08-2024 08:13-0500 Respiratory rate 14 /min Surya Bogner PA-C Work Phone: [facility] 05-08-2024 08:13-0500 SaO2% (BldA) [Mass fraction] 98 % Surya Bogner PA-C Work Phone: [facility] 04-17-2024 10:21-0500 Body mass index (BMI) [Ratio] 37.31 kg/m2 Adriana Coulter RIDES ATTENDANT.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 Work Phone: [facility] 04-17-2024 10:21-0500 Body temperature 98.29 [degF] Adriana Coulter RIDES ATTENDANT.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 Work Phone: [facility] 04-17-2024 10:21-0500 Body weight 101.7 kg Adriana Coulter RIDES ATTENDANT.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 Work Phone: [facility] 04-17-2024 10:21-0500 Diastolic blood pressure 85 mm[Hg] Adriana Coulter RIDES ATTENDANT.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 Work Phone: [facility] 04-17-2024 10:21-0500 Heart rate 87 /min Adriana Coulter RIDES ATTENDANT.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 Work Phone: [facility] 04-17-2024 10:21-0500 Respiratory rate 20 /min Adriana Coulter RIDES ATTENDANT.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 Work Phone: [facility] 04-17-2024 10:21-0500 SaO2% (BldA) [Mass fraction] 96 % Adriana Coulter RIDES ATTENDANT.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 Work Phone: [facility] 04-17-2024 10:21-0500 Systolic blood pressure 129 mm[Hg] Adriana Coulter RIDES ATTENDANT.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 Work Phone: [facility] 03-17-2024 13:42-0500 Body mass index (BMI) [Ratio] 36.72 kg/m2 Deric Latham RIDES ATTENDANT.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 Work Phone: [facility] 03-17-2024 13:42-0500 Body temperature 98.2 [degF] Deric Latham APRN.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 Work Phone: [facility] 03-17-2024 13:42-0500 Body weight 100.1 kg Deric Latham APRN.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 Work Phone: [facility] 03-17-2024 13:42-0500 Diastolic blood pressure 62 mm[Hg] Deric Latham APRN.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 Work Phone: [facility] 03-17-2024 13:42-0500 Heart rate 90 /min Deric Latham APRN.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 Work Phone: [facility] 03-17-2024 13:42-0500 Respiratory rate 21 /min Deric Latham APRN.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 Work Phone: [facility] 03-17-2024 13:42-0500 SaO2% (BldA) [Mass fraction] 98 % Deric Latham APRN.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 Work Phone: [facility] 03-17-2024 13:42-0500 Systolic blood pressure 118 mm[Hg] Deric Latham APRN.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 Work Phone: [facility] 03-05-2024 08:20-0400 Body height 165.1 cm Nga Michel MD Work Phone: [facility] 03-05-2024 08:20-0400 Body mass index (BMI) [Ratio] 36.08 kg/m2 Nga Michel MD Work Phone: [facility] 03-05-2024 08:20-0400 Body weight 98.34 kg Nga Michel MD Work Phone: [facility] 03-05-2024 08:20-0400 Diastolic blood pressure 70 mm[Hg] Nga Michel MD Work Phone: [facility] 03-05-2024 08:20-0400 Systolic blood pressure 104 mm[Hg] Nga Michel MD Work Phone: [facility] 02-15-2024 11:20-0400 Body mass index (BMI) [Ratio] 36.5 kg/m2 Nga Michel MD Work Phone: [facility] 02-15-2024 11:20-0400 Body weight 97.98 kg Nga Michel MD Work Phone: [facility] 02-15-2024 11:20-0400 Diastolic blood pressure 74 mm[Hg] Nga Michel MD Work Phone: [facility] 02-15-2024 11:20-0400 Systolic blood pressure 116 mm[Hg] Nga Michel MD Work Phone: [facility] 02-14-2024 15:44-0400 Body height 165.1 cm Moises Pfeiffer MD Work Phone: [facility] 02-14-2024 15:44-0400 Body mass index (BMI) [Ratio] 35.81 kg/m2 Moises Pfeiffer MD Work Phone: [facility] 02-14-2024 15:44-0400 Body temperature 97.81 [degF] Moises Pfeiffer MD Work Phone: [facility] 02-14-2024 15:44-0400 Body weight 97.61 kg Moises Pfeiffer MD Work Phone: [facility] 02-06-2024 09:14-0400 Body mass index (BMI) [Ratio] 36.5 kg/m2 Briana Older RIDES ATTENDANT.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 Work Phone: [facility] 02-06-2024 09:14-0400 Body weight 97.98 kg Briana Older RIDES ATTENDANT.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 Work Phone: [facility] 02-06-2024 09:14-0400 Diastolic blood pressure 68 mm[Hg] Briana Older RIDES ATTENDANT.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 Work Phone: [facility] 02-06-2024 09:14-0400 Heart rate 72 /min Briana Older RIDES ATTENDANT.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 Work Phone: [facility] 02-06-2024 09:14-0400 Respiratory rate 16 /min Briana Older RIDES ATTENDANT.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 Work Phone: [facility] 02-06-2024 09:14-0400 SaO2% (BldA) [Mass fraction] 96 % Briana Older RIDES ATTENDANT.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 Work Phone: [facility] 02-06-2024 09:14-0400 Systolic blood pressure 122 mm[Hg] Briana Older RIDES ATTENDANT.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 Work Phone: [facility] 01-13-2024 09:11-0400 Body mass index (BMI) [Ratio] 36.17 kg/m2 Nga Michel MD Work Phone: [facility] 01-13-2024 09:11-0400 Body weight 97.07 kg Nga Michel MD Work Phone: [facility] 01-13-2024 09:11-0400 Diastolic blood pressure 62 mm[Hg] Nga Michel MD Work Phone: [facility] 01-13-2024 09:11-0400 Systolic blood pressure 104 mm[Hg] Nga Michel MD Work Phone: [facility] 12-14-2023 10:57-0400 Body height 163.8 cm Adele Haury RIDES ATTENDANT.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 Work Phone: [facility] 12-14-2023 10:57-0400 Body mass index (BMI) [Ratio] 36.5 kg/m2 Adele Haury RIDES ATTENDANT.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 Work Phone: [facility] 12-14-2023 10:57-0400 Body weight 97.98 kg Adele Haury RIDES ATTENDANT.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 Work Phone: [facility] 12-14-2023 10:57-0400 Diastolic blood pressure 68 mm[Hg] Adele Haury RIDES ATTENDANT.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 Work Phone: [facility] 12-14-2023 10:57-0400 Heart rate 70 /min Adele Haury RIDES ATTENDANT.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 Work Phone: [facility] 12-14-2023 10:57-0400 Respiratory rate 14 /min Adele Costa APRN.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 Work Phone: [facility] 12-14-2023 10:57-0400 SaO2% (BldA) [Mass fraction] 97 % Adele Costa APRN.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 Work Phone: [facility] 12-14-2023 10:57-0400 Systolic blood pressure 108 mm[Hg] Adele Costa APRN.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 Work Phone: [facility] 11-22-2023 07:49-0400 Body mass index (BMI) [Ratio] 36.1 kg/m2 Deric Latham APRN.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 Work Phone: [facility] 11-22-2023 07:49-0400 Body temperature 98.1 [degF] Deric Latham APRN.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 Work Phone: [facility] 11-22-2023 07:49-0400 Body weight 98.4 kg Deric Latham APRN.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 Work Phone: [facility] 11-22-2023 07:49-0400 Diastolic blood pressure 72 mm[Hg] Deric Latham APRN.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 Work Phone: [facility] 11-22-2023 07:49-0400 Heart rate 78 /min Deric Latham APRN.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 Work Phone: [facility] 11-22-2023 07:49-0400 Respiratory rate 16 /min Deric Latham APRN.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 Work Phone: [facility] 11-22-2023 07:49-0400 SaO2% (BldA) [Mass fraction] 98 % Deric Latham APRN.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 Work Phone: [facility] 11-22-2023 07:49-0400 Systolic blood pressure 122 mm[Hg] Deric Latham APRN.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 Work Phone: [facility] 10-21-2023 09:54-0400 Body height 165.1 cm Conor Brand MD Work Phone: [facility] 10-21-2023 09:54-0400 Body mass index (BMI) [Ratio] 36.34 kg/m2 Conor Brand MD Work Phone: [facility] 10-21-2023 09:54-0400 Body temperature 98.29 [degF] Conor Brand MD Work Phone: [facility] 10-21-2023 09:54-0400 Body weight 99.07 kg Conor Brand MD Work Phone: [facility] 10-21-2023 09:54-0400 Diastolic blood pressure 72 mm[Hg] Conor Brand MD Work Phone: [facility] 10-21-2023 09:54-0400 Heart rate 99 /min Conor Brand MD Work Phone: [facility] 10-21-2023 09:54-0400 SaO2% (BldA) [Mass fraction] 97 % Conor Brand MD Work Phone: [facility] 10-21-2023 09:54-0400 Systolic blood pressure 112 mm[Hg] Conor Brand MD Work Phone: [facility] 09-23-2023 08:47-0400 Body mass index (BMI) [Ratio] 36.69 kg/m2 Deric Latham APRN.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 Work Phone: [facility] 09-23-2023 08:47-0400 Body temperature 97.3 [degF] Deric Latham APRN.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 Work Phone: [facility] 09-23-2023 08:47-0400 Body weight 100 kg Deric Latham APRN.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 Work Phone: [facility] 09-23-2023 08:47-0400 Diastolic blood pressure 86 mm[Hg] Deric Latham APRN.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 Work Phone: [facility] 09-23-2023 08:47-0400 Heart rate 72 /min Deric Latham APRN.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 Work Phone: [facility] 09-23-2023 08:47-0400 Respiratory rate 18 /min Deric Latham APRN.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 Work Phone: [facility] 09-23-2023 08:47-0400 SaO2% (BldA) [Mass fraction] 99 % Deric Latham APRN.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 Work Phone: [facility] 09-23-2023 08:47-0400 Systolic blood pressure 141 mm[Hg] Deric Latham APRN.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 Work Phone: [facility] 09-07-2023 11:28-0400 Body mass index (BMI) [Ratio] 36.61 kg/m2 Isabel Morales APRN.CNM Work Phone: [facility] 09-07-2023 11:28-0400 Body weight 99.79 kg Isabel Morales APRN.CNM Work Phone: [facility] 09-07-2023 11:28-0400 Diastolic blood pressure 72 mm[Hg] Isabel Morales APRN.CNM Work Phone: [facility] 09-07-2023 11:28-0400 Systolic blood pressure 116 mm[Hg] Isabel Morales APRN.CNM Work Phone: [facility] 08-18-2023 07:30-0400 Body height 165.[address] Koki Worthington Work Phone: [facility] 08-18-2023 07:30-0400 Body weight 101.[address] Koki Worthington Work Phone: [facility] 08-16-2023 14:13-0400 Body temperature 98.8 [degF] Isabel Martinez APRN.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 Work Phone: [facility] 08-16-2023 14:13-0400 Body weight 102.6 kg Isabel Martinez APRN.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 Work Phone: [facility] 08-16-2023 14:13-0400 Diastolic blood pressure 76 mm[Hg] Isabel Martinez RIDES ATTENDANT.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 Work Phone: [facility] 08-16-2023 14:13-0400 Heart rate 72 /min Isabel Martinez RIDES ATTENDANT.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 Work Phone: [facility] 08-16-2023 14:13-0400 Respiratory rate 18 /min Isabel Martinez RIDES ATTENDANT.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 Work Phone: [facility] 08-16-2023 14:13-0400 SaO2% (BldA) [Mass fraction] 97 % Isabel Martinez RIDES ATTENDANT.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 Work Phone: [facility] 08-16-2023 14:13-0400 Systolic blood pressure 118 mm[Hg] Isabel Martinez RIDES ATTENDANT.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 Work Phone: [facility] 07-21-2023 07:30-0400 Body height 165.[address] Koki Worthington Work Phone: [facility] 07-21-2023 07:30-0400 Body weight 102.[address] Koki Worthington Work Phone: [facility] 07-15-2023 08:32-0500 Body height 165.1 cm Conor Brand MD Work Phone: [facility] 07-15-2023 08:32-0500 Body temperature 97.9 [degF] Conor Brand MD Work Phone: [facility] 07-15-2023 08:32-0500 Body weight 102.51 kg Conor Brand MD Work Phone: [facility] 07-15-2023 08:32-0500 Diastolic blood pressure 60 mm[Hg] Conor Brand MD Work Phone: [facility] 07-15-2023 08:32-0500 Heart rate 111 /min Conor Brand MD Work Phone: [facility] 07-15-2023 08:32-0500 SaO2% (BldA) [Mass fraction] 99 % Conor Brand MD Work Phone: [facility] 07-15-2023 08:32-0500 Systolic blood pressure 116 mm[Hg] Conor Brand MD Work Phone: [facility] 06-23-2023 09:23-0500 Body height 165.[address] Koki Worthington Work Phone: [facility] 06-23-2023 09:23-0500 Body mass index (BMI) [Ratio] 37.3 kg/m2 Dr. Koki Worthington Work Phone: [facility] 06-23-2023 09:23-0500 Body temperature 101.4 [degF] Dr. Koki Worthington Work Phone: 2(112)150-134798 [place] [address] 06-23-2023 09:23-0500 Body weight 101.[address] Koki Worthington Work Phone: 9(056)877-929848 [place] [address] 06-23-2023 09:23-0500 Diastolic blood pressure 86 mm[Hg] Dr. Koki Worthington Work Phone: 8(637)894-183798 [place] [address] 06-23-2023 09:23-0500 Heart rate 101 /min Dr. Koki Worthington Work Phone: 5(016)278-426898 [place] [address] 06-23-2023 09:23-0500 Respiratory rate 16 /min Dr. Koki Worthington Work Phone: [facility] 06-23-2023 09:23-0500 SaO2% (BldA) [Mass fraction] 98 % Dr. Koki Worthington Work Phone: [facility] 06-23-2023 09:23-0500 Systolic blood pressure 128 mm[Hg] Dr. Koki Worthington Work Phone: 3(900)484-677898 [place] [address] 06-23-2023 07:59-0500 Body weight 103.[address] Koki Worthington Work Phone: 7(785)835-981648 [place] [address] 06-23-2023 07:30-0500 Body weight 103.[address] Koki Worthington Work Phone: 2(647)575-441598 [place] [address] 06-16-2023 13:24-0500 Body weight 102.6 kg Adele Lauleslie RIDES ATTENDANT.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 Work Phone: 7(519)121-815246 [place] [address] 06-16-2023 13:24-0500 Diastolic blood pressure 66 mm[Hg] Adele Costa RIDES ATTENDANT.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 Work Phone: 0(513)035-927446 [place] [address] 06-16-2023 13:24-0500 Systolic blood pressure 108 mm[Hg] Adele Lauleslie RIDES ATTENDANT.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 Work Phone: 3(527)461-164246 [place] [address] 05-12-2023 07:30-0500 Body height 165.[address] Koki Worthington Work Phone: 9(111)891-567398 [place] [address] 05-12-2023 07:30-0500 Body weight 104.[address] Koki Worthington Work Phone: 4(174)838-512498 [place] [address] 04-26-2023 07:30-0500 Body height 165.[address] Koki Worthington Work Phone: 7(572)639-333898 [place] [address] 04-26-2023 07:30-0500 Body weight 104.[address] Koki Worthington Work Phone: 8(239)931-073298 [place] [address] 04-11-2023 08:30-0500 Body height 165.[address] Koki Worthington Work Phone: 5(960)848-194198 [place] [address] 04-11-2023 08:30-0500 Body weight 106.[address] Koki Worthington Work Phone: 2(893)504-926598 [place] [address] 03-28-2023 08:00-0500 Body weight 106.[address] Koki Worthington Work Phone: 4(734)960-082398 [place] [address] 02-23-2023 14:00-0400 Body height 165.[address] Koki Worthington Work Phone: 7(952)121-578098 [place] [address] 02-23-2023 14:00-0400 Body weight 107.[address] Koki Worthington Work Phone: 8(513)939-158298 [place] [address] 01-21-2023 10:13-0400 Body mass index (BMI) [Ratio] 39.9 kg/m2 Dr. Koki Worthington Work Phone: [facility] 01-21-2023 10:13-0400 Body weight 108.[address] Koki Worthington Work Phone: [facility] 01-21-2023 10:13-0400 Diastolic blood pressure 80 mm[Hg] Dr. Koki Worthington Work Phone: [facility] 01-21-2023 10:13-0400 Heart rate 74 /min Dr. Koki Worthington Work Phone: [facility] 01-21-2023 10:13-0400 Respiratory rate 16 /min Dr. Koki Worthington Work Phone: [facility] 01-21-2023 10:13-0400 Systolic blood pressure 127 mm[Hg] Dr. Koki Worthington Work Phone: [facility] 08-04-2022 09:40-0400 Body weight 109.77 kg Briana Older RIDES ATTENDANT.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 Work Phone: [facility] 08-04-2022 09:40-0400 Diastolic blood pressure 82 mm[Hg] Briana Older RIDES ATTENDANT.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 Work Phone: [facility] 08-04-2022 09:40-0400 Heart rate 72 /min Briana Older RIDES ATTENDANT.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 Work Phone: [facility] 08-04-2022 09:40-0400 Respiratory rate 16 /min Briana Older RIDES ATTENDANT.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 Work Phone: [facility] 08-04-2022 09:40-0400 Systolic blood pressure 124 mm[Hg] Briana Older RIDES ATTENDANT.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 Work Phone: [facility] 05-07-2022 10:34-0500 Body temperature 98.49 [degF] Norm Hernandez Jr., MD Work Phone: [facility] 05-07-2022 10:34-0500 Body weight 108.32 kg Norm Hernandez Jr., MD Work Phone: [facility] 05-07-2022 10:34-0500 Diastolic blood pressure 89 mm[Hg] Norm Hernandez Jr., MD Work Phone: [facility] 05-07-2022 10:34-0500 Heart rate 97 /min Norm Hernandez Jr., MD Work Phone: [facility] 05-07-2022 10:34-0500 Respiratory rate 16 /min Norm Hernandez Jr., MD Work Phone: [facility] 05-07-2022 10:34-0500 SaO2% (BldA) [Mass fraction] 97 % Norm Hernandez Jr., MD Work Phone: [facility] 05-07-2022 10:34-0500 Systolic blood pressure 131 mm[Hg] Norm Hernandez Jr., MD Work Phone: [facility] 04-26-2022 11:13-0500 Body height 165.[address] Koki Worthington Work Phone: [facility] 04-26-2022 11:13-0500 Body mass index (BMI) [Ratio] 39.4 kg/m2 Dr. Koki Worthington Work Phone: [facility] 04-26-2022 11:13-0500 Body weight 107.[address] Koki Worthington Work Phone: [facility] 04-26-2022 11:13-0500 Diastolic blood pressure 87 mm[Hg] Dr. Koki Worthington Work Phone: [facility] 04-26-2022 11:13-0500 Heart rate 68 /min Dr. Koki Worthington Work Phone: [facility] 04-26-2022 11:13-0500 Respiratory rate 18 /min Dr. Koki Worthington Work Phone: [facility] 04-26-2022 11:13-0500 SaO2% (BldA) [Mass fraction] 95 % Dr. Koki Worthington Work Phone: [facility] 04-26-2022 11:13-0500 Systolic blood pressure 129 mm[Hg] Dr. Koki Worthington Work Phone: [facility] 03-12-2022 10:02-0400 Body weight 106.59 kg Zayra Becker MD Work Phone: [facility] 03-12-2022 10:02-0400 Diastolic blood pressure 74 mm[Hg] Zayra Becker MD Work Phone: [facility] 03-12-2022 10:02-0400 Systolic blood pressure 120 mm[Hg] Zayra Bekcer MD Work Phone: [facility] 01-18-2022 09:32-0400 Body weight 105.69 kg Briana Older RIDES ATTENDANT.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 Work Phone: [facility] 01-18-2022 09:32-0400 Diastolic blood pressure 74 mm[Hg] Briana Older RIDES ATTENDANT.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 Work Phone: [facility] 01-18-2022 09:32-0400 Heart rate 76 /min Briana Older RIDES ATTENDANT.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 Work Phone: [facility] 01-18-2022 09:32-0400 Respiratory rate 16 /min Briana Older RIDES ATTENDANT.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 Work Phone: [facility] 01-18-2022 09:32-0400 Systolic blood pressure 118 mm[Hg] Briana Older RIDES ATTENDANT.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 Work Phone: [facility] 12-04-2021 07:43-0400 Body temperature 96.91 [degF] Heber Ferrell MD Work Phone: [facility] 12-04-2021 07:43-0400 Body weight 102.42 kg Heber Ferrell MD Work Phone: [facility] 12-04-2021 07:43-0400 Diastolic blood pressure 72 mm[Hg] Heber Ferrell MD Work Phone: [facility] 12-04-2021 07:43-0400 Heart rate 88 /min Heber Ferrell MD Work Phone: [facility] 12-04-2021 07:43-0400 Respiratory rate 20 /min Heber Ferrell MD Work Phone: [facility] 12-04-2021 07:43-0400 SaO2% (BldA) [Mass fraction] 96 % Heber Ferrell MD Work Phone: [facility] 12-04-2021 07:43-0400 Systolic blood pressure 120 mm[Hg] Heber Ferrell MD Work Phone: [facility] 11-12-2021 14:03-0400 Body height 165.[address] Koki Worthington Work Phone: [facility] Work Phone: 11-12-2021 14:03-0400 Body mass index (BMI) [Ratio] 38.1 kg/m2 Dr. Koki Worthington Work Phone: [facility] Work Phone: 11-12-2021 14:03-0400 Body temperature 98.7 [degF] Dr. Koki Worthington Work Phone: [facility] Work Phone: 11-12-2021 14:03-0400 Body weight 104.[address] Koki Worthington Work Phone: [facility] Work Phone: 11-12-2021 14:03-0400 Diastolic blood pressure 81 mm[Hg] Dr. Koki Worthington Work Phone: [facility] Work Phone: 11-12-2021 14:03-0400 Heart rate 78 /min Dr. Koki Worthington Work Phone: [facility] Work Phone: 11-12-2021 14:03-0400 Respiratory rate 16 /min Dr. Koki Worthington Work Phone: [facility] Work Phone: 11-12-2021 14:03-0400 SaO2% (BldA) [Mass fraction] 98 % Dr. Koki Worthington Work Phone: [facility] Work Phone: 11-12-2021 14:03-0400 Systolic blood pressure 156 mm[Hg] Dr. Koki Worthington Work Phone: [facility] Work Phone: 11-03-2021 09:59-0400 Body temperature 97.7 [degF] Adriana Yfn RIDES ATTENDANT.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 Work Phone: [facility] 11-03-2021 09:59-0400 Body weight 104.87 kg Adriana Yfn RIDES ATTENDANT.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 Work Phone: [facility] 11-03-2021 09:59-0400 Diastolic blood pressure 88 mm[Hg] Adriana Yfn RIDES ATTENDANT.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 Work Phone: [facility] 11-03-2021 09:59-0400 Heart rate 80 /min Adriana Yfn RIDES ATTENDANT.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 Work Phone: [facility] 11-03-2021 09:59-0400 Respiratory rate 16 /min Adriana Yfn RIDES ATTENDANT.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 Work Phone: [facility] 11-03-2021 09:59-0400 SaO2% (BldA) [Mass fraction] 98 % Adriana Yfn RIDES ATTENDANT.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 Work Phone: [facility] 11-03-2021 09:59-0400 Systolic blood pressure 136 mm[Hg] Adriana Yfn RIDES ATTENDANT.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 Work Phone: [facility] 10-27-2021 08:38-0400 Body mass index (BMI) [Ratio] 37.9 kg/m2 Dr. Koki Worthington Work Phone: [facility] Work Phone: 10-27-2021 08:38-0400 Body weight 103.[address] Koki Worthington Work Phone: [facility] Work Phone: 10-27-2021 08:38-0400 Diastolic blood pressure 74 mm[Hg] Dr. Koki Worthington Work Phone: [facility] Work Phone: 10-27-2021 08:38-0400 Heart rate 79 /min Dr. Koki Worthington Work Phone: [facility] Work Phone: 10-27-2021 08:38-0400 Respiratory rate 18 /min Dr. Koki Worthington Work Phone: [facility] Work Phone: 10-27-2021 08:38-0400 Systolic blood pressure 117 mm[Hg] Dr. Koki Worthington Work Phone: [facility] Work Phone: 10-16-2021 08:00-0400 Body weight 103.87 kg Briana Older RIDES ATTENDANT.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 Work Phone: [facility] 10-16-2021 08:00-0400 Diastolic blood pressure 78 mm[Hg] Briana Older RIDES ATTENDANT.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 Work Phone: [facility] 10-16-2021 08:00-0400 Heart rate 64 /min Briana Older RIDES ATTENDANT.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 Work Phone: [facility] 10-16-2021 08:00-0400 Respiratory rate 16 /min Briana Older RIDES ATTENDANT.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 Work Phone: [facility] 10-16-2021 08:00-0400 Systolic blood pressure 118 mm[Hg] Briana Older RIDES ATTENDANT.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 Work Phone: [facility] 09-19-2021 08:30-0400 Body temperature 97 [degF] [facility] RIDES ATTENDANT.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 Work Phone: [facility] 09-19-2021 08:30-0400 Body weight 104.6 kg [facility] RIDES ATTENDANT.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 Work Phone: [facility] 09-19-2021 08:30-0400 Diastolic blood pressure 78 mm[Hg] [facility] RIDES ATTENDANT.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 Work Phone: [facility] 09-19-2021 08:30-0400 Heart rate 83 /min [facility] RIDES ATTENDANT.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 Work Phone: [facility] 09-19-2021 08:30-0400 Respiratory rate 18 /min [facility] RIDES ATTENDANT.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 Work Phone: [facility] 09-19-2021 08:30-0400 SaO2% (BldA) [Mass fraction] 96 % [facility] RIDES ATTENDANT.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 Work Phone: [facility] 09-19-2021 08:30-0400 Systolic blood pressure 110 mm[Hg] [facility] RIDES ATTENDANT.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 Work Phone: [facility] 09-12-2021 01:19-0400 Diastolic blood pressure 65 mm[Hg] Dr. Koki Worthington Work Phone: [facility] Work Phone: 09-12-2021 01:19-0400 Heart rate 56 /min Dr. Koki Worthington Work Phone: [facility] Work Phone: 09-12-2021 01:19-0400 Respiratory rate 13 /min Dr. Koki Worthington Work Phone: [facility] Work Phone: 09-12-2021 01:19-0400 SaO2% (BldA) [Mass fraction] 96 % Dr. Koki Worthington Work Phone: [facility] Work Phone: 09-12-2021 01:19-0400 Systolic blood pressure 105 mm[Hg] Dr. Koki Worthington Work Phone: [facility] Work Phone: 09-11-2021 22:12-0400 Body height 165.[address] Koki Worthington Work Phone: [facility] Work Phone: 09-11-2021 22:12-0400 Body mass index (BMI) [Ratio] 38.4 kg/m2 Dr. Koki Worthington Work Phone: [facility] Work Phone: 09-11-2021 22:12-0400 Body temperature 98.4 [degF] Dr. Koki Worthington Work Phone: [facility] Work Phone: 09-11-2021 22:12-0400 Body weight 104.[address] Koki Worthington Work Phone: [facility] Work Phone: 07-14-2021 12:58-0500 Body temperature 99.1 [degF] Dr. Koki Worthington Work Phone: [facility] Work Phone: 07-14-2021 12:58-0500 Diastolic blood pressure 80 mm[Hg] Dr. Koki Worthington Work Phone: [facility] Work Phone: 07-14-2021 12:58-0500 Heart rate 88 /min Dr. Koki Worthington Work Phone: [facility] Work Phone: 07-14-2021 12:58-0500 Respiratory rate 18 /min Dr. Koki Worthington Work Phone: [facility] Work Phone: 07-14-2021 12:58-0500 SaO2% (BldA) [Mass fraction] 97 % Dr. Koki Worthington Work Phone: [facility] Work Phone: 07-14-2021 12:58-0500 Systolic blood pressure 120 mm[Hg] Dr. Koki Worthington Work Phone: [facility] Work Phone: 05-29-2021 11:27-0500 Body temperature 98.1 [degF] Dr. Koki Worthington Work Phone: [facility] Work Phone: 05-29-2021 11:27-0500 Diastolic blood pressure 78 mm[Hg] Dr. Koki Worthington Work Phone: [facility] Work Phone: 05-29-2021 11:27-0500 Heart rate 94 /min Dr. Koki Worthington Work Phone: [facility] Work Phone: 05-29-2021 11:27-0500 Respiratory rate 15 /min Dr. Koki Worthington Work Phone: [facility] Work Phone: 05-29-2021 11:27-0500 SaO2% (BldA) [Mass fraction] 98 % Dr. Koki Worthington Work Phone: [facility] Work Phone: 05-29-2021 11:27-0500 Systolic blood pressure 120 mm[Hg] Dr. Koki Worthington Work Phone: [facility] Work Phone: Encounters Encounter Date Encounter Type Care Provider Facility Start: 11-28-2024 End: 11-28-2024 Telephone encounter Clifton Schneider MD Work Phone: [facility] Comment on above: Patient Update Start: 11-27-2024 End: 11-28-2024 Get Medical Advice Clifton Schneider MD Work Phone: [facility] Comment on above: Loop recorder questi on Start: 11-19-2024 End: 11-21-2024 Refill Koki Worthington MD Work Phone: [facility] [place] Comment on above: Refill Request Start: 11-08-2024 End: 11-08-2024 Office outpatient new 45 minutes Clifton Schneider MD Work Phone: [facility] Comment on above: Palpitations (Primar y Dx); Paroxysmal tachycardia (HCC); PVC (premature ventricular contraction); Pre-syncope; Bigeminy; Supraventricular tachycardia (HCC) Start: 11-08-2024 End: 11-08-2024 ambulatory CLIFTON SCHNEIDER Facility:[facility] Start: 11-05-2024 End: 11-05-2024 Office outpatient visit 25 minutes Koki Worthington MD Work Phone: [facility] [place] Comment on above: Essential hypertensi on (Primary Dx); Paroxysmal tachycardia (HCC); Mild intermittent asthma without complication (HCC); Gastroesophageal reflux disease, unspecified whether esophagitis present; Tobacco abuse; Complex regional pain syndrome type 1 of right upper extremity; Anxiety and depression Start: 11-05-2024 End: 11-05-2024 ambulatory KOKI WORTHINGTON Facility:[facility] Start: 10-23-2024 End: 10-23-2024 ambulatory [facility] Facility:[facility] Start: 10-19-2024 End: 10-19-2024 Patient encounter procedure [facility] Work Phone: Start: 10-19-2024 End: 10-19-[address] Koki Worthington MD Work Phone: [facility] Work Phone: Start: 10-16-2024 End: 10-19-2024 ambulatory Koki Worthington MD Work Phone: [facility] [place] [phone] Start: 10-03-2024 End: 10-06-2024 Telephone encounter Koki Worthington MD Work Phone: [facility] [place] Comment on above: Results Start: 09-20-2024 End: 09-20-2024 ambulatory BRIANA LEGGETT Facility:[facility] Start: 09-07-2024 End: 09-07-2024 Follow-up encounter Briana Leggett APRN.CNP Work Phone: [facility] [place] Comment on above: Results Start: 09-06-2024 End: 09-06-2024 ambulatory BRIANA LEGGETT Facility:[facility] Start: 09-06-2024 End: 09-06-2024 Office outpatient visit 25 minutes Briana Leggett RIDES ATTENDANT.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 Work Phone: [facility] [place] Comment on above: Pre-syncope (Primary Dx); Other fatigue; Hematuria, unspecified type; Paroxysmal tachycardia (HCC); Vitamin D deficiency Start: 09-06-2024 [facility] Facility:[facility] Start: 09-04-2024 End: 09-04-2024 Refill Briana Leggett RIDES ATTENDANT.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 Work Phone: [facility] [place] Comment on above: Refill Request Start: 08-02-2024 End: 08-02-2024 [facility] Facility:[facility] Start: 08-02-2024 End: 08-02-2024 Patient encounter procedure Briana Leggett RIDES ATTENDANT.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 Work Phone: [facility] [place] Comment on above: Moderate persistent asthma, uncomplicated (Primary Dx); Wheezing; Shortness of breath Start: 07-25-2024 End: 09-24-2024 Follow-up encounter Briana Leggett APRN.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 Work Phone: [facility] [place] Start: 07-23-2024 End: 07-23-2024 Telephone encounter Koki Worthington MD Work Phone: [facility] [place] Comment on above: Concern for pneumoni a Start: 07-23-2024 End: 07-23-2024 Subsequent hospital visit by physician Xr [facility] [place] Work Phone: Radiology Comment on above: Wheezing [R06.2] Start: 07-23-2024 End: 07-23-2024 [facility] Facility:[facility] Start: 07-23-2024 End: 07-23-2024 Patient encounter procedure Briana Leggett RIDES ATTENDANT.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 Work Phone: [facility] [place] Comment on above: Wheezing (Primary Dx ); Shortness of breath; Acute cough; Dysuria; Leukocytes in urine; Proteinuria, unspecified type Start: 07-16-2024 End: 09-15-2024 Follow-up encounter Kole DE LA GARZA Work Phone: [facility] Start: 07-15-2024 End: 07-15-2024 ambulatory KOKI WORTHINGTON Facility:[facility] Start: 07-15-2024 End: 07-15-2024 Patient encounter procedure Kole DE LA GARZA Work Phone: [facility] Comment on above: URI, acute (Primary Dx) Start: 07-09-2024 End: 07-09-2024 ambulatory SELF Facility:[facility] Start: 07-09-2024 End: 07-09-2024 Nursing evaluation of patient and report Mi Nurse Work Phone: [facility] [place] Comment on above: Encounter for immuni zation (Primary Dx) Start: 2024 End: 07-03-2024 Telephone encounter Koki Worthington MD Work Phone: [facility] [place] Comment on above: Orders Start: 07-01-2024 End: 07-01-2024 ambulatory SELF Facility:[facility] Start: 07-01-2024 End: 07-01-2024 Patient encounter procedure Malka Moulton RIDES ATTENDANT.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 Work Phone: [facility] Comment on above: Nasal congestion (Pr imary Dx) Start: 05-25-2024 End: 05-25-2024 Subsequent hospital visit by physician Genoveva Joseph MD Work Phone: [facility] Comment on above: Family history of bi rth defect Start: 05-25-2024 End: 05-25-2024 ambulatory GENOVEVA JOSEPH [facility] Start: 05-23-2024 End: 05-23-2024 Telephone encounter Surya Bishop PA-C Work Phone: [facility] [place] Comment on above: Results Start: 05-23-2024 End: 05-23-2024 ambulatory SURYA BISHOP Facility:[facility] Start: 05-23-2024 End: 05-23-2024 Subsequent hospital visit by physician Elsi crystal Rojas Work Phone: Radiology Comment on above: Bacterial pneumonia [J15.9] Start: 05-11-2024 End: 05-11-2024 ambulatory SURYA BISHOP Facility:[facility] Start: 05-08-2024 End: 05-08-2024 Office outpatient visit 25 minutes Surya Bishop PA-C Work Phone: Family [facility] [place] Comment on above: Paroxysmal tachycard ia (HCC) (Primary Dx); Bacterial pneumonia; Mild intermittent asthma without complication Start: 05-08-2024 End: 05-11-2024 Refill Briana Leggett APRN.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 Work Phone: Internal Medicine [place] Comment on above: Refill Request Start: 05-08-2024 End: 05-08-[address] [facility] Facility:[facility] Start: 05-01-2024 End: 05-01-[address] [facility] Start: 04-17-2024 End: 04-17-2024 Subsequent hospital visit by physician Xr [facility] [place] Work Phone: Radiology Comment on above: Acute cough [R05.1] Start: 04-17-2024 End: 04-17-2024 [facility] Facility:[facility] Start: 04-17-2024 End: 04-17-2024 Patient encounter procedure Adriana Coulter APRN.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 Work Phone: [place] [email or web address] Comment on above: Community acquired p neumonia of left lung, unspecified part of lung (Primary Dx); Sore throat; Acute cough; URI, acute Start: 04-16-2024 End: 04-16-2024 ambulatory Hasmukh DE LA GARZA Facility[facility] Start: 03-20-2024 End: 03-20-2024 Patient encounter procedure Moises Pfeiffer MD Work Phone: [facility] Comment on above: Hoarseness of voice (Primary Dx); Lesion of vocal cord Start: 03-20-2024 End: 03-20-2024 [facility] Start: 03-19-2024 End: 03-19-2024 Telephone encounter Heber Ferrell MD Work Phone: [facility] Comment on above: Results (Urine Cx mi xed) Start: 03-17-2024 End: 03-17-2024 ambulatory [facility] Facility:[facility] Start: 03-17-2024 End: 03-17-2024 Patient encounter procedure Deric Latham APRN.CNP Work Phone: [facility] Comment on above: Urinary frequency (P rimary Dx); Acute otitis externa of left ear, unspecified type Start: 03-13-2024 ambulatory Gio Holguin Facility[facility] Start: 03-05-2024 End: 03-05-2024 ambulatory NGA MICHEL Facility:[facility] Start: 03-05-2024 End: 03-05-2024 Patient encounter status Nga Michel MD Work Phone: [facility] Start: 03-05-2024 End: 03-05-2024 Periodic preventive med est patient 40-64yrs Nga Michel MD Work Phone: OB/Gynecology Comment on above: Encounter for gyneco logical examination (general) (routine) without abnormal findings (Primary Dx); Encounter for screening mammogram for malignant neoplasm of breast; Vaginal discharge Start: 03-01-2024 End: 03-01-2024 ambulatory [facility] Start: 02-22-2024 ambulatory Adore Miller Facility[facility] Start: 02-15-2024 End: 02-15-2024 ambulatory NGA MICHEL Facility:[facility] Start: 02-15-2024 End: 02-15-2024 Office outpatient visit 15 minutes Nga Michel MD Work Phone: OB/Gynecology Comment on above: Surveillance of prev iously prescribed intrauterine contraceptive device (Primary Dx) Start: 02-14-2024 End: 02-15-2024 ambulatory [facility] Start: 02-14-2024 End: 02-14-2024 Office outpatient new 45 minutes Moises Pfeiffer MD Work Phone: [facility] Comment on above: Hoarseness of voice (Primary Dx); Contact ulcer of vocal cord Start: 02-14-2024 End: 02-14-2024 ambulatory [facility] Start: 02-06-2024 End: 02-06-2024 ambulatory BRIANA LEGGETT Facility:[facility] Start: 02-06-2024 End: 02-06-2024 Patient encounter procedure Briana Leggett APRN.CNP Work Phone: Internal [facility] [place] Comment on above: Palpitations (Primar y Dx); Paroxysmal tachycardia (HCC); Moderate persistent asthma with acute exacerbation Start: 01-19-2024 End: 02-06-2024 ambulatory [facility] Facility:[facility] Start: 01-13-2024 End: 01-13-2024 ambulatory NGA MICHEL Facility:[facility] Start: 01-13-2024 End: 01-13-2024 Patient encounter procedure Nga Michel MD Work Phone: OB/Gynecology Comment on above: Encounter for IUD in sertion (Primary Dx) Start: 12-22-2023 End: 12-22-2023 ambulatory Eduardo Brooke [place] [facility] Start: 12-19-2023 End: 01-07-2024 ambulatory [facility] Facility:[facility] Start: 12-15-2023 Telephone encounter Adele kaur APRN.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 Work Phone: OB/Gynecology Comment on above: Results Start: 12-14-2023 End: 12-14-2023 ambulatory [facility] Facility:[facility] Start: 12-14-2023 End: 12-14-2023 Patient encounter procedure Adele Costa APRN.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 Work Phone: OB/Gynecology Comment on above: Vaginal itching (Jonelle niko Dx); Vulvar irritation; Encounter for IUD insertion; Dysmenorrhea Start: 12-06-2023 Refill Briana Leggett APRN, .CNP Work Phone: Internal Medicine [place] Comment on above: Refill Request Start: 11-22-2023 End: 11-22-2023 ambulatory [facility] Facility:[facility] Start: 11-22-2023 End: 11-22-2023 Patient encounter procedure Deric Latham APRN.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 Work Phone: [facility] Comment on above: Skin infection (Prim maribell Dx) Start: 11-17-2023 End: 12-07-2023 ambulatory Adore Miller Facility:[facility] Start: 11-01-2023 Admission to [facility] Conor Brand MD Work Phone: General Surgery Comment on above: Cytology results Start: 11-01-2023 E-mail encounter fro m caregiver Conor Brand MD Work Phone: General Surgery Start: 11-01-2023 Telephone encounter Conor Brand MD Work Phone: General Surgery Start: 10-25-2023 Refill Briana Cantrell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 Work Phone: Internal Medicine [place] Comment on above: Refill Request Start: 10-21-2023 End: 10-21-2023 Patient encounter procedure Conor Brand MD Work Phone: General Surgery Comment on above: Nipple discharge Start: 09-29-2023 ambulatory Briana Cantrell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 Work Phone: Internal Medicine [place] Comment on above: Nebulizer Start: 09-23-2023 End: 09-23-2023 Patient encounter procedure Deric Latham APRN.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 Work Phone: [facility] Comment on above: URI, acute (Primary Dx); Sore throat Start: 09-14-2023 End: 09-14-2023 Orders Only Pauline Puentes MD Work Phone: OB/Gynecology Comment on above: Nipple discharge (Pr imary Dx) Nipple discharge [N6 4.52] Start: 09-07-2023 End: 09-07-2023 Patient encounter procedure Isabel Morales APRN.CNM Work Phone: OB/Gynecology Comment on above: Nipple discharge (Pr imary Dx) Start: 08-29-2023 Refill Surya trevizo PA-C Work Phone: Internal Medicine [place] Comment on above: Refill Request Start: 08-18-2023 End: 09-06-[address] Koki Worthington Work Phone: [facility] Work Phone: Start: 08-18-2023 End: 09-06-[address] [facility] Work [facility]: Start: 08-16-2023 End: 08-16-2023 Patient encounter procedure Isabel Martinez APRN.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 Work Phone: [facility] Comment on above: Hidradenitis suppura tiva (Primary Dx) Start: 07-21-2023 End: 08-07-[address] Koki Worthington Work Phone: [facility] Work Phone: Start: 07-21-2023 End: 08-07-[address] Koki Worthington [facility] Work [facility]: Start: 07-19-2023 ambulatory Koki Butler Work Phone: [facility] [place] Start: 07-15-2023 End: 07-15-2023 Patient encounter procedure Conor Brand MD Work Phone: General Surgery Comment on above: Anal fissure (Primar y Dx); Hemorrhoids, unspecified hemorrhoid type Start: 07-01-2023 End: 07-01-[address] Koki Worthington Work Phone: [facility] Work Phone: Start: 07-01-2023 End: 07-01-[address] Koki Worthington Work Phone: [facility] Work Phone: Start: 06-24-2023 Telephone encounter Adele kaur APRN.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 Work Phone: OB/Gynecology Comment on above: Vaginal Problem Start: 06-23-2023 End: 06-23-[address] Koki Worthington Work Phone: [facility] Work Phone: Start: 06-23-2023 End: 07-07-[address] Koki Worthington Work Phone: [facility] Work Phone: Start: 06-23-2023 End: 07-07-[address] Koki Worthington [facility]: Start: 06-23-[address] Dell Worthington Work Phone: [facility] Work Phone: Start: 06-17-2023 Telephone encounter Adele kaur APRN.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 Work Phone: OB/Gynecology Comment on above: Results Start: 06-16-2023 Telephone encounter Re simpson APRN.CNM Work Phone: OB/Gynecology Comment on above: Patient Question (BV ) Start: 06-16-2023 End: 06-16-2023 Patient encounter procedure Adele Costa APRN.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 Work Phone: OB/Gynecology Comment on above: Acute vaginitis (Jonelle niko Dx); Hemorrhoids, unspecified hemorrhoid type Start: 05-12-2023 End: 06-08-[address] Koki Worthington Work Phone: [facility] Work Phone: Start: 05-12-2023 End: 06-08-[address] Koki Worthington Work Phone: [facility] Work Phone: Start: 05-05-2023 End: 05-05-[address] Koki Worthington Work Phone: [facility] Work Phone: Start: 05-05-2023 End: 05-05-[address] [facility]: Start: 04-26-2023 End: 05-08-[address] Koki Worthington Work Phone: [facility] Work Phone: Start: 04-26-2023 End: 05-08-[address] Koki Worthington [facility] Work [facility]: Start: 04-26-[address] Dell Worthington Work Phone: [facility]: Start: 03-28-2023 End: 04-07-[address] Koki Worthington Work Phone: [facility] Work Phone: Start: 03-15-2023 Telephone encounter Koki singletary MD Work Phone: Internal Medicine [place] Comment on above: Insurance Authorizat ion Start: 03-11-2023 Telephone encounter Eileen crespo RIDES ATTENDANT.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 Work Phone: OB/Gynecology Comment on above: Results Start: 02-28-2023 Refill Briana Older RIDES ATTENDANT .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 Work Phone: Internal Medicine [place] Comment on above: Refill Request Start: 02-28-2023 Refill Briana Older RIDES ATTENDANT .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 Work Phone: Internal Medicine [place] Comment on above: Refill Request Start: 02-24-[address] Dell Worthington [facility] Start: 02-23-2023 End: 03-08-[address] Koki Worthington Work Phone: [facility] Work Phone: Start: 02-23-2023 End: 03-08-[address] Koki Worthington [facility] Work [facility]: Start: 02-15-2023 End: 02-15-[address] Koki Worthington Work Phone: [facility] Work Phone: Start: 02-05-2023 End: 02-05-[address] Koki Worthington Work Phone: [facility] Work Phone: Start: 01-26-2023 Non-patient / Non-visit Dr. Edilson Worthington Work Phone: [facility] Start: 01-21-2023 End: 01-21-[address] Koki Worthington Work Phone: [facility] Work Phone: Start: 01-18-2023 ambulatory Koki Butler Work Phone: Internal Medicine [facility] Start: 12-23-2022 End: 12-23-2022 ambulatory ABBY ZEPEDA [facility] Start: 12-16-2022 End: 12-16-[address] Koki Worthington Work Phone: [facility] Work Phone: Start: 11-11-2022 Refill Briana Leggett APRN, .CNP Work Phone: Internal Medicine [place] Comment on above: Refill Request Start: 11-01-2022 End: 11-01-[address] Koki Worthington Work Phone: [facility] Work Phone: Start: 11-01-2022 End: 11-01-[address] Koki Worthington Work Phone: [facility] Start: 10-03-2022 Refill Briana Oleksandr RIDES ATTENDANT .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 Work Phone: Internal Medicine [place] Comment on above: Refill Request Start: 09-15-2022 End: 09-15-[address] Koki Worthington Work Phone: [facility] Start: 08-04-2022 Telephone encounter Gilmer kennedy DO Work Phone: Orthopaedics Comment on above: Appointment Start: 08-04-2022 End: 08-04-2022 Patient encounter procedure Briana Leggett RIDES ATTENDANT.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 Work Phone: Internal Medicine [place] Comment on above: Essential hypertensi on (Primary Dx); Hyperlipidemia, mixed; Palpitations; Gastroesophageal reflux disease, unspecified whether esophagitis present; Post traumatic stress disorder (PTSD) Start: 08-02-2022 End: 10-11-2022 ambulatory ISABEL EXPERT MEDICAL WRITER [facility] Start: 07-29-2022 End: 07-29-2022 ambulatory ABBY EXPERT MEDICAL WRITER [facility] Start: 07-27-2022 End: 07-27-2022 Subsequent hospital visit by physician Elsi [facility] Bob Work Phone: Radiology Comment on above: Canceled (CC cx: Err or or Template Change) Start: 07-27-2022 End: 07-27-[address] Koki Worthington Work Phone: [facility] Start: 07-16-2022 End: 07-16-2022 ambulatory ISABEL EXPERT MEDICAL WRITER [facility] Start: 07-09-2022 End: 07-09-2022 ambulatory ISABEL EXPERT MEDICAL WRITER [facility] Start: 07-01-2022 Telephone encounter Clem García Radiology Comment on above: Appointment Start: 06-18-2022 End: 06-18-2022 ambulatory Chela Sheridan DO Work Phone: Orthopaedics Comment on above: Arm swelling (Primar y Dx); Acute pain of right shoulder; Traumatic tear of right rotator cuff, unspecified tear extent, initial encounter Start: 06-18-2022 End: 06-18-2022 Telemedicine consultation with patient Chela Sheridan DO Work Phone: [facility] Start: 06-16-2022 End: 06-16-2022 [facility] Norm Hernandez MD Work Phone: Neurology Comment on above: Facial paresthesia ( Primary Dx); Trigeminal nerve disorder; Twitch; Tic disorder; Intermittent tremor Start: 05-27-2022 End: 05-27-2022 Refill Briana Leggett APRN.CNP Work Phone: Internal Medicine [place] Comment on above: Refill Request disk and report Start: 05-27-2022 End: 05-27-[address] Koki Worthington Work Phone: [facility] Services/Neurology Start: 05-19-2022 Telephone encounter Chela Sheridan DO Work Phone: Podiatry Comment on above: Patient Question Start: 05-14-2022 Telephone encounter Mitchel sarmiento MD Work Phone: Orthopaedics Comment on above: Pain (Shoulder Pain) Start: 05-11-2022 End: 05-11-2022 Subsequent hospital visit by physician Mri [employer] [facility] (I-Stat/1.5t) Work Phone: Radiology Comment on above: Acute pain of right shoulder [M25.511] Start: 05-07-2022 End: 05-07-2022 Patient encounter procedure Norm Hernandez MD Work Phone: Neurology Comment on above: Facial paresthesia ( Primary Dx); Trigeminal nerve disorder; Intermittent tremor; Twitch; Tic disorder Start: 04-26-2022 End: 04-26-[address] Koki Worthington Work Phone: [facility] Start: 04-12-2022 End: 04-12-2022 Patient encounter procedure Mitchel Staton MD Work Phone: Orthopaedics Comment on above: Acute pain of right shoulder (Primary Dx); Traumatic tear of right rotator cuff, unspecified tear extent, initial encounter Start: 04-07-2022 Refill Mario Camara DO Work Phone: Cardiology Comment on above: Refill Request Start: 03-23-2022 End: 03-23-2022 Emergency department patient visit ADORE NIXON [facility] Start: 03-19-2022 ambulatory [facility] Provider OB/Gynecol gurwinder Comment on above: Test Results Start: 03-19-2022 E-mail encounter carmen davis caregiver [facility] Provider [facility] DARRELLTOWLeeann Start: 03-18-2022 Telephone encounter Zayra griggs MD Work Phone: OB/Gynecology Comment on above: Orders Start: 03-17-2022 End: 03-17-2022 Subsequent hospital visit by physician Ct Prep [facility] Cat Scan Comment on above: Other specified soft tissue disorders [M79.89] Start: 03-12-2022 End: 03-12-2022 Patient encounter procedure Zayra Becker MD Work Phone: OB/Gynecology Comment on above: Soft tissue mass (Pr imary Dx) Start: 02-23-2022 ambulatory Briana Cantrell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 Work Phone: Internal Medicine [place] Comment on above: Nebulizer machine Start: 02-10-2022 ambulatory Briana Leggett APRN, .CNP Work Phone: Internal Medicine [place] Comment on above: Paperwork Start: 01-25-2022 End: 01-25-[address] Koki Worthington Work Phone: [facility] Work Phone: Start: 01-25-2022 End: 01-25-[address] Koki Worthington Work Phone: [facility] Start: 01-18-2022 End: 01-18-2022 Patient encounter procedure Briana Leggett APRN.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 Work Phone: Internal Medicine [place] Comment on above: Chest pain, unspecif ied type (Primary Dx); Facial paresthesia; Intermittent tremor; Gastroesophageal reflux disease, unspecified whether esophagitis present; Essential hypertension; Hyperlipidemia, mixed; Molluscum contagiosum Start: 12-18-2021 Refill Koki Butler Work Phone: Internal Medicine [place] Comment on above: Refill Request Start: 12-04-2021 End: 12-04-2021 Subsequent hospital visit by physician [facility] Work Phone: Radiology Comment on above: Elbow pain, left [M2 5.522] Start: 12-04-2021 End: 12-04-2021 Patient encounter procedure Heber Ferrell MD Work Phone: [facility] Comment on above: Elbow pain, left (Pr imary Dx) Start: 12-02-2021 End: 12-02-2021 Patient encounter procedure Yo Segura MD Work Phone: Ophthalmology Comment on above: Alteration in vision (Primary Dx); Transient vision disturbance of right eye; Eyelid twitch Start: 11-16-2021 End: 11-16-[address] Koki Worthington Work Phone: [facility] Start: 11-12-2021 End: 11-12-[address] 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 Koki Worthington Work Phone: [facility] Start: 10-19-2021 Telephone encounter Briana Leggett APRN.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 Work Phone: Internal Medicine [place] Comment on above: Patient Question Start: 10-16-2021 End: 10-16-2021 Patient encounter procedure Briana Leggett APRN.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 Work Phone: Internal Medicine [place] Comment on above: Moderate persistent asthma, uncomplicated (Primary Dx); Essential hypertension; Hyperlipidemia, mixed; Facial paresthesia; Palpitations Start: 09-19-2021 End: 09-19-2021 Patient encounter procedure Scot Carranza RIDES ATTENDANT.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 Work Phone: [facility] Comment on above: Pain, dental (Primar y Dx) Start: 09-17-2021 End: 09-17-[address] Koki Worthington Work Phone: [facility] Services/Neurology Start: 09-11-2021 End: 09-12-2021 Emergency department patient visit Dr. Koki Worthington Work Phone: [facility]Emergency Department Start: 07-31-2021 End: 07-31-2021 Patient encounter procedure Chela Sheridan DO Work Phone: Orthopaedics Comment on above: Multiple joint compl aints (Primary Dx); Chronic right shoulder pain; Tendinitis of right shoulder; Impingement syndrome of right shoulder Start: 07-14-2021 End: 07-14-[address] Koki Worthington Work Phone: [facility] Start: 06-05-2021 Non-patient / Non-visit Dr. Edilson Worthington Work Phone: [facility] Start: 06-05-2021 End: 06-05-[address] Koki Worthington Work Phone: [facility]/Neurology Start: 05-29-2021 End: 05-29-[address] Koki Worthington Work Phone: [facility] Start: 05-22-2021 End: 05-22-[address] Koki Worthington Work Phone: [facility] Start: 12-28-2019 End: 12-28-2019 Subsequent hospital visit by physician Brian Argueta Work Phone: [facility] Comment on above: Arrived Procedures Date Procedure Procedure Detail Performing Clinician Start: 11-08-2024 Ecg routine ecg w/le ast 12 lds w/i&r Clifton Schneider MD Work Phone: Start: 09-06-2024 Urnls dip stick/tabl et rgnt auto w/o microscopy Briana Leggett RIDES ATTENDANT.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 Work Phone: Start: 09-06-2024 Ecg routine ecg w/le ast 12 lds i&r only Briana Older RIDES ATTENDANT.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 Work Phone: Start: 07-23-2024 Radiologic exam ches t 2 views Briana Older RIDES ATTENDANT.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 Work Phone: Start: 07-23-2024 Urnls dip stick/tabl et rgnt auto w/o microscopy Briana Leggett RIDES ATTENDANT.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 Work Phone: Start: 05-23-2024 Radiologic exam ches t 2 views Surya Bishop PA-C Work Phone: Start: 04-17-2024 Radiologic exam ches t 2 views Adriana Coulter RIDES ATTENDANT.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 Work Phone: Start: 04-17-2024 STREP A MOLECULAR (POC) Adriana Coulter RIDES ATTENDANT.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 Work Phone: Start: 03-17-2024 Urnls dip stick/tabl et rgnt auto w/o microscopy Isabel Martinez RIDES ATTENDANT.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 Work Phone: Start: 01-13-2024 UA DIP,URINE HCG (POC) Nga Michel MD Work Phone: Start: 09-23-2023 STREP A MOLECULAR (POC) [facility] Provider Start: 09-14-2023 Us breast uni real t cady with image limited Isabel Morales RIDES ATTENDANT.CNM Work Phone: Start: 09-14-2023 End: 09-14-2023 Digital breast tomosynthesis bilateral Isabel Morales RIDES ATTENDANT.CNM Work Phone: Start: 02-05-2023 MRI of joint of lowe r extremity Dr. Koki Worthington Work Phone: Start: 07-27-2022 Radiologic examinati on of knee Dr. Koki Worthington Work Phone: Start: 05-11-2022 Mri any jt upper ext remity w/o contrast matrl Mitchel Staton MD Work Phone: Start: 03-12-2022 Microscopic observat ion [Identifier] in Cervix by Cyto stain Moises Pfeiffer MD Work Phone: Start: 01-18-2022 Ecg routine ecg w/le ast 12 lds w/i&r Briana Older RIDES ATTENDANT.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 Work Phone: Start: 01-17-2022 Adult depression scr eening assessment Briana Older RIDES ATTENDANT.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 Work Phone: Start: 12-04-2021 Radex elbow complete minimum 3 views Heber Ferrell MD Work Phone: Start: 12-02-2021 End: 12-02-2021 Visual field xm uni/bi w/interp extended exam Yo Segura MD Work Phone: Start: 10-14-2021 Adult depression scr eening assessment Briana Older RIDES ATTENDANT.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 Work Phone: Start: 09-11-2021 Plain chest X-ray Dr. Crystal Worthington Work Phone: Start: 09-10-2021 Adult depression scr eening assessment Scot Carranza RIDES ATTENDANT.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 Work Phone: Start: 07-31-2021 Arthrocentesis aspir &/inj major jt/bursa w/o us Chela Sheridan DO Work Phone: Start: 06-14-2021 Adult depression scr eening assessment Chela Fatimah DO Work Phone: Plan of Treatment Date Care Activity Detail Author Start: 2033 Zoster Vaccines (1 of 2) Zoste r Vaccines (1 of 2) [facility] Start: 06-13-2028 DTaP/Tdap/Td Vaccine s (2 - Td or Tdap) DTaP/Tdap/Td Vaccines (2 - Td or Tdap) [facility] Start: 06-13-2028 Urine microalbumin profile [facility] Start: 03-12-2027 HPV TESTING HPV TESTING [facility] Start: 03-12-2027 PAP TESTING PAP TESTING [facility] Start: 03-12-2027 Screening for malign ant neoplasm of cervix [facility] Start: 09-15-2026 HPV TESTING HPV TESTING [facility] Start: 09-15-2026 PAP TESTING PAP TESTING [facility] Start: 11-05-2025 Annual PCP Team Supervisor Clam Bed jacquie Disease Visit Annual PCP Team Chronic Disease Visit [facility] Start: 09-06-2025 Annual PCP Team Supervisor Clam Bed jacquie Disease Visit Annual PCP Team Chronic Disease Visit [facility] Start: 09-06-2025 BP Controlled (<130/80) BP Controlle d (<130/80) [facility] Start: 08-02-2025 Annual PCP Team Supervisor Clam Bed jacquie Disease Visit Annual PCP Team Chronic Disease Visit [facility] Start: 08-02-2025 BP Controlled (<130/80) BP Controlle d (<130/80) [facility] Start: 07-23-2025 Annual PCP Team Supervisor Clam Bed jacquie Disease Visit Annual PCP Team Chronic Disease Visit [facility] Start: 07-23-2025 BP Controlled (<130/80) BP Controlle d (<130/80) [facility] Start: 07-21-2025 PAP TESTING PAP TESTING [facility] Start: 07-15-2025 BP Controlled (<130/80) BP Controlle d (<130/80) [facility] Start: 07-01-2025 BP Controlled (<130/80) BP Controlle d (<130/80) [facility] Start: 05-08-2025 Annual PCP Team Supervisor Clam Bed jacquie Disease Visit Annual PCP Team Chronic Disease Visit [facility] Start: 05-08-2025 BP Controlled (<130/80) BP Controlle d (<130/80) [facility] Start: 05-07-2025 End: 05-07-2025 Patient encounter procedure 05/07/2025 11:20 AM EST Office Visit [facility] [place] [address] [place] [address] Koki Worthington MD [address] [facility] [place] [id number] 6 month follow up [facility] Comment on above: 6 month follow up Start: 03-17-2025 BP Controlled (<130/80) BP Controlle d (<130/80) [facility] Start: 03-12-2025 Screening for malign ant neoplasm of cervix [facility] Start: 03-08-2025 End: 03-08-2025 Patient encounter procedure Mammogram Comment on above: Encounter for screen ing mammogram for malignant neoplasm of breast [Z12.31] annual Start: 03-05-2025 BP Controlled (<130/80) BP Controlle d (<130/80) [facility] Start: 02-14-2025 BP Controlled (<130/80) BP Controlle d (<130/80) [facility] Start: 02-05-2025 Annual PCP Team Supervisor Clam Bed jacquie Disease Visit Annual PCP Team Chronic Disease Visit [facility] Start: 02-05-2025 BP Controlled (<130/80) BP Controlle d (<130/80) [facility] Start: 01-12-2025 BP Controlled (<130/80) BP Controlle d (<130/80) [facility] Start: 01-09-2025 End: 01-09-2025 Nursing evaluation of patient and report 01/09/2025 8:00 AM EDT Nurse Visit [facility] [address] [facility] [place] [id number] Nurse, [place] [address] [place], [place] [id number] Hepatitis B #3 [facility] Comment on above: Hepatitis B #3 Start: 01-07-2025 Influenza vaccination [facility] Start: 08-23-2025 Hepb vaccine adult 3 dose schedule for im use HEP B VACCINE, 3-DOSE, AGE 20+ YR (ENGERIX-B, RECOMBIVAX HB) Immunization/Injection Routine Need for vaccination Expected: 12/29/2024 (Approximate) [facility] Comment on above: Expected: 12/29/2024 (Approximate) Start: 12-13-2024 BP Controlled (<130/80) BP Controlle d (<130/80) [facility] Start: 11-21-2024 BP Controlled (<130/80) BP Controlle d (<130/80) [facility] Start: 11-08-2024 End: 11-08-2024 Patient encounter procedure [facility] Comment on above: Pre-syncope [R55] ReEst for Paroxysmal tachycardia MARISELA 2020 EKG/eo Start: 11-05-2024 Influenza vaccination Influenza Vacc ine (#1) [facility] Comment on above: Postponed from 01/07 (Declined at this time) Start: 11-02-2024 End: 11-02-2024 Patient encounter procedure 11/02/2024 1:40 PM EDT Office Visit [facility] [place] [address] [place] [address] Koki Worthington MD [address] [place], [place] [address] 3 month follow up [facility] [place] Comment on above: 3 month follow up Start: 10-20-2024 BP Controlled (<130/80) BP Controlle d (<130/80) [facility] Start: 10-16-2024 End: 01-15-2025 Lipid 1996 panel - Serum or Plasma LIPID PANEL, FASTING Lab Routine Hyperlipidemia, mixed Expected: 10/16/2024, Expires: 01/15/2025 [facility] Work Phone: Comment on above: Expected: 10/16/2024 , Expires: 01/15/2025 Start: 09-20-2024 End: 09-20-2024 Patient encounter procedure 09/20/2024 8:00 AM EDT Office Visit Cardiology [address] [place], [place] [id number] Pre-syncope [R55] Cardiology Comment on above: Pre-syncope [R55] Start: 09-13-2024 Screening for malign ant neoplasm of breast [facility] Start: 09-06-2024 End: 12-06-2024 25-hydroxyvitamin D3 [Mass/volume] in Serum or Plasma [facility] Comment on above: Expected: 09/06/2024 , Expires: 12/06/2024 Start: 09-06-2024 BP Controlled (<130/80) BP Controlle d (<130/80) [facility] Start: 09-06-2024 End: 12-06-2024 Cobalamin (Vitamin B12) [Mass/volume] in Serum or Plasma [facility] Comment on above: Expected: 09/06/2024 , Expires: 12/06/2024 Start: 09-06-2024 End: 12-06-2024 Comprehensive metabolic 2000 panel - Serum or Plasma [facility] Comment on above: Expected: 09/06/2024 , Expires: 12/06/2024 Start: 09-06-2024 End: 12-06-2024 Magnesium [Mass/volume] in Serum or Plasma [facility] Comment on above: Expected: 09/06/2024 , Expires: 12/06/2024 Start: 09-06-2024 End: 12-06-2024 Thyrotropin [Units/volume] in Serum or Plasma [facility] Comment on above: Expected: 09/06/2024 , Expires: 12/06/2024 Start: 08-15-2024 BP Controlled (<130/80) BP Controlle d (<130/80) [facility] Start: 08-09-2024 End: 08-09-2024 Nursing evaluation of patient and report 08/09/2024 8:00 AM EDT Nurse Visit [facility] [address] [place] [address] Nurse, [place] [address] [place] [address] Hep B #2 [facility] Comment on above: Hep B #2 Start: 08-06-2024 Hepatitis B Vaccine (2 of 3 - 19+ 3-dose series) Hepatitis B Vaccine (2 of 3 - 19+ 3-dose series) [facility] Start: 08-04-2024 Annual PCP Team Supervisor Clam Bed jacquie Disease Visit Annual PCP Team Chronic Disease Visit [facility] Start: 08-02-2024 End: 08-02-2024 Patient encounter procedure 08/02/2024 2:00 PM EDT Office Visit Internal Medicine [place] [address] [place] [address] Briana Leggett APRN.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 [address] [place] [address] 1 week follow up [facility] Comment on above: 1 week follow up Start: 07-30-2024 Hepb vaccine adult 3 dose schedule for im use HEP B VACCINE, 3-DOSE, AGE 20+ YR (ENGERIX-B, RECOMBIVAX HB) Immunization/Injection Routine Need for vaccination Expected: 07/30/2024 (Approximate) [facility] Comment on above: Expected: 07/30/2024 (Approximate) Start: 07-14-2024 BP Controlled (<130/80) BP Controlle d (<130/80) [facility] Start: 07-09-2024 End: 07-09-2024 Nursing evaluation of patient and report 07/09/2024 8:15 AM EST Nurse Visit [facility] [place] [address] [facility] [place] [address] Nurse, [place] [address] [place] [address] Hep B and Pneumonia shot [facility] [place] Comment on above: Hep B and Pneumonia shot Start: 06-16-2024 BP Controlled (<130/80) BP Controlle d (<130/80) [facility] Start: 05-22-2024 End: 05-22-2024 Patient encounter procedure 05/22/2024 8:00 AM EST Appointment Radiology [address] [facility] [place] [address] Radiology Start: 05-08-2024 End: 08-07-2024 CBC W Auto Differential panel - Blood COMPLETE BLOOD COUNT AND DIFFERENTIAL Lab Routine Paroxysmal tachycardia (HCC) Expected: 05/08/2024, Expires: 08/07/2024 [facility] Comment on above: Expected: 05/08/2024 , Expires: 08/07/2024 Start: 05-08-2024 End: 08-07-2024 Comprehensive metabolic 2000 panel - Serum or Plasma COMPREHENSIVE METABOLIC PANEL Lab Routine Paroxysmal tachycardia (HCC) Expected: 05/08/2024, Expires: 08/07/2024 [facility] Comment on above: Expected: 05/08/2024 , Expires: 08/07/2024 Start: 05-08-2024 End: 08-07-2024 Ferritin [Mass/volume] in Serum or Plasma FERRITIN Lab Routine Paroxysmal tachycardia ([facility]) Expected: 05/08/2024, Expires: 08/07/2024 [facility] Comment on above: Expected: 05/08/2024 , Expires: 08/07/2024 Start: 05-08-2024 End: 08-07-2024 Iron and Iron binding capacity panel - Serum or Plasma IRON AND TIBC Lab Routine Paroxysmal tachycardia ([facility]) Expected: 05/08/2024, Expires: 08/07/2024 [facility] Comment on above: Expected: 05/08/2024 , Expires: 08/07/2024 Start: 05-08-2024 End: 08-07-2024 Thyrotropin [Units/volume] in Serum or Plasma THYROID STIMULATING HORMONE Lab Routine Paroxysmal tachycardia ([facility]) Expected: 05/08/2024, Expires: 08/07/2024 [facility] Comment on above: Expected: 05/08/2024 , Expires: 08/07/2024 Start: 05-08-2024 End: 08-07-2024 Thyroxine (T4) free [Mass/volume] in Serum or Plasma T4 FREE/FREE THYROXINE Lab Routine Paroxysmal tachycardia ([facility]) Expected: 05/08/2024, Expires: 08/07/2024 [facility] Comment on above: Expected: 05/08/2024 , Expires: 08/07/2024 Start: 05-08-2024 End: 08-07-2024 Triiodothyronine (T3) Free [Mass/volume] in Serum or Plasma T3, FREE Lab Routine Paroxysmal tachycardia ([facility]) Expected: 05/08/2024, Expires: 08/07/2024 [facility] Comment on above: Expected: 05/08/2024 , Expires: 08/07/2024 Start: 05-08-2024 End: 05-08-2024 Patient encounter procedure 05/08/2024 8:00 AM EST Office Visit [facility] [place] [address] [place] [address] Surya Bishop PA-C [address] [place] [address] 3 month follow up [facility] [place] Comment on above: 3 month follow up Start: 05-07-2024 End: 05-07-2024 Patient encounter procedure 05/07/2024 8:40 AM EST Office Visit Internal Medicine [place] [address] [place] [address] Koki Worthington MD [address] [place] [address] 3 month follow up [facility] Comment on above: 3 month follow up Start: 04-12-2024 End: 04-12-2024 ambulatory 04/12/2024 9:00 AM EST Treatment [facility] [address] [place] [phone] Hue Rucker PROBATION OFFICER [address] [place] [address] [facility] Start: 03-20-2024 End: 03-20-2024 Patient encounter procedure 03/20/2024 11:15 AM EST Office Visit [facility] [address] [place] [address] [place] [address] [place] [address] [facility] Start: 03-10-2024 BP Controlled (<130/80) BP Controlle d (<130/80) [facility] Start: 03-01-2024 End: 03-01-2024 Telemedicine consultation with patient 03/01/2024 9:00 AM EDT Telemedicine Clinical Support [facility] [address] [place] [phone] Hue Rucker, PROBATION OFFICER [address] [facility] [address] [place] [address] [facility] Start: 02-28-2024 End: 02-28-2024 Patient encounter procedure 02/28/2024 8:20 AM EDT Office Visit OB/Gynecology [address] [place] [address] Nga Michel MD [address] [place] [address] Annual OB/Gynecology Comment on above: Annual Start: 02-15-2024 End: 02-15-2024 Patient encounter procedure 02/15/2024 10:50 AM EDT Office Visit OB/Gynecology [address] [place] [address] Nga Michel MD [address] [place] [address] check iud OB/Gynecology Comment on above: check iud Start: 02-06-2024 End: 02-06-2024 Patient encounter procedure 02/06/2024 9:20 AM EDT Office Visit [facility] [place] [address] [place] [address] Briana Lgegett APRN.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 [address] [facility] [place] [address] 6 month follow up [facility] [place] Comment on above: 6 month follow up Start: 02-05-2024 Annual PCP Team Supervisor Clam Bed jacquie Disease Visit Annual PCP Team Chronic Disease Visit [facility] Start: 02-05-2024 BP Controlled (<130/80) BP Controlle d (<130/80) [facility] Start: 01-13-2024 End: 01-13-2024 Patient encounter procedure 01/13/2024 9:00 AM EDT Office Visit OB/Gynecology [address] [place] [address] Nga Michel MD [address] [place] [address] Dysmenorrhea [N94.6] OB/Gynecology Comment on above: Dysmenorrhea [N94.6] Start: 01-08-2024 COVID-19 (2023-2 5 season) COVID-19 ( season) [facility] Start: 01-08-2024 COVID-19 Vaccine ( season) COVID-19 Vaccine ( season) [facility] Start: 01-08-2024 COVID-19 Vaccine () COVID-19 Vaccine () [facility] Start: 01-08-2024 FLU (#1) FLU (#1) [facility] Start: 01-08-2024 Influenza vaccination C [facility] Start: 12-14-2023 End: 03-14-2024 Herpes simplex virus+Varicella zoster virus DNA [Presence] in Unspecified specimen by RISHABH with probe detection [facility] Work Phone: Comment on above: Expected: 12/14/2023 , Expires: 03/14/2024 Start: 10-21-2023 End: 10-21-2023 Patient encounter procedure 10/21/2023 9:45 AM EDT Office Visit [facility] [address] [facility] [place] [address] Conor Brand MD [address] [address] Nipple discharge [N64.52] General Surgery Comment on above: Nipple discharge [N6 4.52] Start: 09-23-2023 End: 10-07-2023 COVID & INFLUENZA A/B & RSV NAAT, ROUTINE [facility] Work Phone: Comment on above: Expected: 09/23/2023 , Expires: 10/07/2023 Start: 09-14-2023 End: 09-14-2023 Patient encounter procedure 09/14/2023 9:00 AM EDT Appointment Mammogram [address] [place] [address] Nipple discharge [N64.52] Mammogram Comment on above: Nipple discharge [N6 4.52] Start: 09-07-2023 End: 12-07-2023 Prolactin [Mass/volume] in Serum or Plasma PROLACTIN Lab Routine Nipple discharge Expected: 09/07/2023, Expires: 12/07/2023 [facility] Comment on above: Expected: 09/07/2023 , Expires: 12/07/2023 Start: 08-05-2023 ANNUAL PCP TEAM DRAFTER PATENT JACQUIE DISEASE VISIT ANNUAL PCP TEAM CHRONIC DISEASE VISIT [facility] Start: 08-05-2023 COVID-19 VACCINE (#1) COVID-19 VACCI NE (#1) [facility] Comment on above: Postponed from 12/30 (Declined at this time) Start: 08-05-2023 HEPATITIS B (1 of 3 - 3-dose series) HEPATITIS B (1 of 3 - 3-dose series) [facility] Comment on above: Postponed from 07/02 (Declined at this time) Start: 08-05-2023 Hepatitis B Vaccine (1 of 3 - 19+ 3-dose series) Hepatitis B Vaccine (1 of 3 - 19+ 3-dose series) [facility] Comment on above: Postponed from 07/02 (Declined at this time) Start: 08-05-2023 Hepatitis B Vaccine (1 of 3 - 3-dose series) Hepatitis B Vaccine (1 of 3 - 3-dose series) [facility] Comment on above: Postponed from 07/02 (Declined at this time) Start: 08-05-2023 PNEUMOCOCCAL (2 - PCV) PNEUMOCOCCAL (2 - PCV) [facility] Comment on above: Postponed from 01/03 (Declined at this time) Start: 08-05-2023 Pneumococcal vaccination [facility] Comment on above: Postponed from 01/03 (Declined at this time) Postponed from 04/20 (Declined at this time) Start: 07-19-2023 End: 10-18-2023 Basic metabolic 2000 panel - Serum or Plasma BASIC METABOLIC PNL Lab Routine Essential hypertension Expected: 07/19/2023, Expires: 10/18/2023 [facility] Work Phone: Comment on above: Expected: 07/19/2023 , Expires: 10/18/2023 Start: 07-19-2023 End: 10-18-2023 Lipid 1996 panel - Serum or Plasma LIPID PANEL BASIC Lab Routine Hyperlipidemia, mixed Expected: 07/19/2023, Expires: 10/18/2023 [facility] Work Phone: Comment on above: Expected: 07/19/2023 , Expires: 10/18/2023 Start: 07-10-2023 Diabetes mellitus screening Diabetes Screening [facility] Start: 2023 Screening for malign ant neoplasm of breast Mammogram Screening [facility] Start: 05-09-2023 Behavioral Health Screening Behavioral Health Screening [facility] Start: 05-09-2023 Depression Assessment Depression Ass essment [facility] Start: 04-20-2023 Pneumococcal vaccination Pneum ococcal Vaccine (2 of 2 - PCV) [facility] Start: 04-20-2023 Pneumococcal Vaccine : Pediatrics (0 to 5 Years) and At-Risk Patients (6 to 64 Years) (2 of 2 - PCV) Pneumococcal Vaccine: Pediatrics (0 to 5 Years) and At-Risk Patients (6 to 64 Years) (2 of 2 - PCV) [facility] Start: 03-12-2023 BP CONTROLLED (<130/80) BP CONTROLLE D (<130/80) [facility] Start: 01-26-2023 Patient referral [facility] Work Phone: Start: 01-18-2023 ANNUAL PCP TEAM DRAFTER PATENT JACQUIE DISEASE VISIT ANNUAL PCP TEAM CHRONIC DISEASE VISIT [facility] Start: 01-18-2023 End: 03-20-2023 Basic metabolic 2000 panel - Serum or Plasma BASIC METABOLIC PNL Lab Routine Essential hypertension Expected: 01/18/2023, Expires: 03/20/2023 [facility] Work Phone: Comment on above: Expected: 01/18/2023 , Expires: 03/20/2023 Start: 01-18-2023 BP CONTROLLED (<130/80) BP CONTROLLE D (<130/80) [facility] Start: 01-18-2023 End: 03-20-2023 Lipid 1996 panel - Serum or Plasma LIPID PANEL BASIC Lab Routine Hyperlipidemia, mixed Expected: 01/18/2023, Expires: 03/20/2023 [facility] Work Phone: Comment on above: Expected: 01/18/2023 , Expires: 03/20/2023 Start: 01-17-2023 Adult depression scr eening assessment DEPRESSION SCREENING [facility] Start: 01-07-2023 Covid-19 Vaccine () Covid-19 Vaccine () [facility] Start: 01-07-2023 Influenza vaccination C [facility] Start: 12-04-2022 BP CONTROLLED (<130/80) BP CONTROLLE D (<130/80) [facility] Start: 10-16-2022 ANNUAL PCP TEAM DRAFTER PATENT JACQUIE DISEASE VISIT ANNUAL PCP TEAM CHRONIC DISEASE VISIT [facility] Start: 10-16-2022 BP CONTROLLED (<130/80) BP CONTROLLE D (<130/80) [facility] Start: 10-14-2022 Adult depression scr eening assessment DEPRESSION SCREENING [facility] Start: 09-19-2022 BP CONTROLLED (<130/80) BP CONTROLLE D (<130/80) [facility] Start: 09-15-2022 Patient referral [facility] Work Phone: Start: 09-10-2022 Adult depression scr eening assessment DEPRESSION SCREENING [facility] Start: 08-04-2022 End: 10-04-2022 Comprehensive metabolic 2000 panel - Serum or Plasma COMP METABOLIC PANEL Lab Routine Essential hypertension Hyperlipidemia, mixed Expected: 08/04/2022, Expires: 10/04/2022 [facility] Work Phone: Comment on above: Expected: 08/04/2022 , Expires: 10/04/2022 Start: 06-24-2022 ANNUAL PCP TEAM DRAFTER PATENT JACQUIE DISEASE VISIT ANNUAL PCP TEAM CHRONIC DISEASE VISIT [facility] Start: 06-14-2022 Adult depression scr eening assessment DEPRESSION SCREENING [facility] Start: 05-09-2022 DEPRESSION ASSESSMENT DEPRESSION ASS ESSMENT [facility] Start: 01-07-2022 Influenza vaccination INFLUENZA (#1) [facility] Start: 11-25-2021 COVID-19 VACCINE (#1) COVID-19 VACCI NE (#1) [facility] Comment on above: Postponed from 07/02 (Declined at this time) Postponed from 12/30 (Declined at this time) Start: 11-25-2021 COVID-19 VACCINE (1) COVID-19 VACCIN E (1) [facility] Comment on above: Postponed from 07/02 (Declined at this time) Start: 11-15-2021 Patient referral [facility] Work Phone: Start: 05-09-2021 DEPRESSION ASSESSMENT DEPRESSION ASS ESSMENT [facility] Start: 06-10-2020 HPV TESTING HPV TESTING [facility] Start: 01-08-2020 FLU (#1) FLU (#1) [facility] Start: 01-03-2013 PNEUMOCOCCAL (2 - PCV) PNEUMOCOCCAL (2 - PCV) [facility] Start: 2004 Microscopic observat ion Cyto stain Nom (Cvx) Pap Smear [facility] Start: 2004 Screening for malign ant neoplasm of cervix HPV/Cotest [facility] Start: 2002 Hepatitis B (1 of 3 - Risk 3-dose series) [facility] Start: 2002 Hepatitis B Vaccine (1 of 3 - 19+ 3-dose series) Hepatitis B Vaccine (1 of 3 - 19+ 3-dose series) [facility] Start: 2002 Hepatitis B Vaccines (1 of 3 - 19+ 3-dose series) Hepatitis B Vaccines (1 of 3 - 19+ 3-dose series) [facility] Start: 2001 BP CONTROLLED (<130/80) BP CONTROLLE D (<130/80) [facility] Start: 2001 Depression Screening Depression Scre ening [facility] Start: 2001 Hepatitis C [facility] Start: 1999 MenB (1 of 2 - MenB 2-Dose Series Bexsero) MenB (1 of 2 - MenB 2-Dose Series Bexsero) [facility] Start: 1999 MenB (1 of 2 - MenB 2-Dose Series) MenB (1 of 2 - MenB 2-Dose Series) [facility] Start: 1996 Varicella (1 of 2 - 13+ 2-dose series) Varicella (1 of 2 - 13+ 2-dose series) [facility] Start: 1996 Varicella vaccination Varicell a Vaccines (1 of 2 - 13+ 2-dose series) [facility] Start: 1990 Tetanus Diphtheria a nd Pertussis Vaccines (1 - Tdap) Tetanus Diphtheria and Pertussis Vaccines (1 - Tdap) [facility] Start: 1984 Hepatitis A (1 of 2 - Risk 2-dose series) Hepatitis A (1 of 2 - Risk 2-dose series) [facility] Start: 1984 MMR (1 of 1 - Standa rd series) MMR (1 of 1 - Standard series) [facility] Start: 1984 Varicella (1 of 2 - 2-dose childhood series) Varicella (1 of 2 - 2-dose childhood series) [facility] Start: 1983 COVID-19 VACCINE (#1) COVID-19 VACCI NE (#1) [facility] Start: 1983 HEPATITIS B (1 of 3 - 3-dose series) HEPATITIS B (1 of 3 - 3-dose series) [facility] Start: 1983 HIV screening HIV Screening [facility] Start: 1983 Lipid panel Lipid Panel [facility] Start: 1983 [facility] B[facility] identified in Urine by Culture URINE CULTURE Microbiology Routine Urinary frequency Ordered: 03/17/2024 [facility] Work Phone: Comment on above: Ordered: 03/17/2024 Bacteria identified in Urine by Culture BACTERIAL CULTURE, URINE Microbiology Routine Dysuria Proteinuria, unspecified type 07/23/2024 1:09 PM EDT [facility] Bacteria identified in Urine by Culture BACTERIAL CULTURE, URINE Microbiology Routine Pre-syncope Other fatigue Hematuria, unspecified type 09/06/2024 9:45 AM EDT [facility] BACTERIAL VAGINOSIS NAAT BACTERI AL VAGINOSIS NAAT Lab Routine Acute vaginitis 06/16/2023 1:[address] [facility] Work Phone: BACTERIAL VAGINOSIS NAAT BACTERI AL VAGINOSIS NAAT Lab Routine Vaginal itching 12/14/2023 11:18 AM EDT [facility] BACTERIAL VAGINOSIS NAAT BACTERI AL VAGINOSIS NAAT Lab Routine Vaginal discharge 03/05/2024 9:48 AM EDT [facility] MARTÍN/TRICHOMONAS NAAT MARTÍN /TRICHOMONAS NAAT Lab Routine Acute vaginitis 06/16/2023 1:[address] [facility] Work Phone: MARTÍN/TRICHOMONAS NAAT MARTÍN /TRICHOMONAS NAAT Lab Routine Vaginal itching 12/14/2023 11:18 AM EDT [facility] MARTÍN/TRICHOMONAS NAAT MARTÍN /TRICHOMONAS NAAT Lab Routine Vaginal discharge 03/05/2024 9:48 AM T [facility] Chlamydia trachomatis+Neisseria gonorrhoeae DNA [Presence] in Unspecified specimen by RISHABH with probe detection GONORRHEA/CHLAMYDIA NAAT Lab Routine Acute vaginitis 06/16/2023 1:[address] [facility] Work Phone: Chlamydia trachomatis+Neisseria gonorrhoeae DNA [Presence] in Unspecified specimen by RISHABH with probe detection GONORRHEA/CHLAMYDIA NAAT Lab Routine Vaginal itching 12/14/2023 11:18 AM [facility] COVID & INFLUENZA A/ B & RSV PCR, ROUTINE COVID & INFLUENZA A/B & RSV PCR, ROUTINE Microbiology Routine URI, acute Ordered: 04/17/2024 [facility] Work Phone: Comment on above: Ordered: 04/17/2024 COVID & INFLUENZA A/ B & RSV PCR, ROUTINE COVID & INFLUENZA A/B & RSV PCR, ROUTINE Microbiology Routine Nasal congestion Ordered: 07/01/2024 [facility] Work Phone: Comment on above: Ordered: 07/01/2024 COVID & INFLUENZA A/ B & RSV PCR, ROUTINE COVID & INFLUENZA A/B & RSV PCR, ROUTINE Microbiology Routine URI, acute 07/15/2024 2:32 PM [facility] Work Phone: End: 04-11-2023 Ct pelvis w/contrast material CT PELVIS W IVCON Radiology STAT Soft tissue mass 1 Occurrences starting 03/12/2022 until 04/11/2023 [facility] Work Phone: Comment on above: 1 Occurrences starti ng 03/12/2022 until 04/11/2023 End: 12-28-2019 Cytogenomic Microarray Analysis of Blood Cytogenomic Microarray Analysis of Blood Lab Routine For lab collect this frequency defaults to the next routine lab draw time. Routine times: 0600; 1100; 1400; 1900; 2200 for 1 Occurrences starting 12/28/2019 until 12/28/2019 [facility] Comment on above: For lab collect this frequency defaults to the next routine lab draw time. Routine times: 0600; 1100; 1400; 1900; 2200 for 1 Occurrences starting 12/28/2019 until 12/28/2019 CYTOLOGY NON-DISTILLERY WORKER GENERAL CYTOLOGY NON-GY N Lab Routine Nipple discharge 10/21/2023 10:47 AM EDT [facility] Work Phone: End: 04-04-2025 DBT Breast - bilateral screening BELEN SCREENING W SANTINO Radiology Routine Encounter for screening mammogram for malignant neoplasm of breast 1 Occurrences starting 03/05/2024 until 04/04/2025 [facility] Work Phone: Comment on above: 1 Occurrences starti ng 03/05/2024 until 04/04/2025 ECG COMPLETE ECG COMPLETE ECG Routine Pre-syncope Other fatigue 09/06/2024 8:47 AM EDT [facility] End: 09-06-2025 Echocardiography ECHO Cardiology Routine Pre-syncope 1 Occurrences starting 09/06/2024 until 09/06/2025 [facility] Work Phone: Comment on above: 1 Occurrences starti ng 09/06/2024 until 09/06/2025 End: 05-07-2023 EPIL EEG ROUTINE EPIL EEG ROUTINE NEUROLOGY Routine Twitch Tic disorder 1 Occurrences starting 05/07/2022 until 05/07/2023 [facility] Work Phone: Comment on above: 1 Occurrences starti ng 05/07/2022 until 05/07/2023 End: 05-25-2024 Genetic Sendout: Grandparent sample for whole exome sequencing [facility] Work Phone: Comment on above: 1 Occurrences starti ng 05/25/2024 until 05/25/2024 Hepb vaccine adult 3 dose schedule for im use HEP B VACCINE, 3-DOSE, AGE 20+ YR (ENGERIX-B, RECOMBIVAX HB) Immunization/Injection Routine Need for vaccination Ordered: 2024 [facility] Work Phone: Comment on above: Ordered: 2024 Insertion intrauteri ne device iud INSERT INTRAUTERINE DEVICE Procedures Routine Dysmenorrhea Ordered: 12/14/2023 [facility] Comment on above: Ordered: 12/14/2023 End: 10-06-2024 MG Breast - bilateral Diagnostic BELEN DIAGNOSTIC BILATERAL Radiology Routine Nipple discharge 1 Occurrences starting 09/07/2023 until 10/06/2024 [facility] Comment on above: 1 Occurrences starti ng 09/07/2023 until 10/06/2024 Mri any jt upper ext remity w/o contrast matrl MRI SHOULDER WO IVCON RT Radiology Routine Acute pain of right shoulder Traumatic tear of right rotator cuff, unspecified tear extent, initial encounter Ordered: 04/12/2022 [facility] Work Phone: Comment on above: Ordered: 04/12/2022 OUTSIDE VENDOR CARDI AC OUTPATIENT EXTENDED RHYTHM RECORDING (WITHOUT TELEMETRY) OUTSIDE VENDOR CARDIAC OUTPATIENT EXTENDED RHYTHM RECORDING (WITHOUT TELEMETRY) Holter Routine Pre-syncope Paroxysmal tachycardia (HCC) Ordered: 09/06/2024 [facility] Comment on above: Ordered: 09/06/2024 PAP FLUID CERVICAL SCREENING PAP FLUID CERVICAL SCREENING Lab Routine Soft tissue mass 03/12/2022 1:17 PM EDT [facility] Work Phone: Patient Education PVCs [facility] Work Phone: Patient referral [facility] Work Phone: Pneumococcal vaccination PNEUMOC OCCAL VACCINE, 20 VALENT (PREVNAR 20) Immunization/Injection Routine Encounter for immunization Ordered: 2024 [facility] Comment on above: Ordered: 2024 Urinalysis complete panel - Urine URINALYSIS, WITH MICROSCOPIC Lab Routine Dysuria Proteinuria, unspecified type 07/23/2024 1:09 PM EDT [facility] Work Phone: Urinalysis complete panel - Urine URINALYSIS, WITH MICROSCOPIC Lab Routine Pre-syncope Other fatigue Hematuria, unspecified type 09/06/2024 9:45 AM EDT [facility] End: 10-07-2024 US Breast - right limited US BREAST LTD RIGHT Radiology Routine Nipple discharge 1 Occurrences starting 09/07/2023 until 10/07/2024 [facility] Work Phone: Comment on above: 1 Occurrences starti ng 09/07/2023 until 10/07/2024 End: 07-18-2023 US MUSCLE RT US MUSCLE RT Radiology Routine Arm swelling 1 Occurrences starting 06/18/2022 until 07/18/2023 [facility] Work Phone: Comment on above: 1 Occurrences starti ng 06/18/2022 until 07/18/2023 End: 07-18-2023 XR CHEST 1V FRONTAL PORT XR CHEST 1V FRONTAL PORT Radiology Routine Arm swelling 1 Occurrences starting 06/18/2022 until 07/18/2023 [facility] Work Phone: Comment on above: 1 Occurrences starti ng 06/18/2022 until 07/18/2023 End: 06-07-2025 XR Chest PA and Lateral XR CHEST 2V FRONTAL/LAT Radiology Routine Bacterial pneumonia 1 Occurrences starting 05/08/2024 until 06/07/2025 [facility] Work Phone: Comment on above: 1 Occurrences starti ng 05/08/2024 until 06/07/2025 [facility] Immunizations Immunization Date Immunization Notes Care Provider Jazmyn florian 07-09-2024 hepatitis B vaccine, adult dosage Mi Nurse Work Phone: [facility] 07-09-2024 pneumococcal conjuga te (PCV20) vaccine, 20 valent (PREVNAR 20) Phuong Nurse Work Phone: [facility] 04-20-2022 influenza, injectabl e, quadrivalent, preservative free Clifton Schneider MD Work Phone: [facility] 04-20-2022 pneumococcal polysaccharide vaccine, 23 valent Clifton Schneider MD Work Phone: [facility] 04-20-2022 influenza virus vacc ine, unspecified formulation Koki Worthington MD Work Phone: [facility] 03-02-2021 influenza, injectabl e, quadrivalent, contains preservative Chela Chicorelli DO Work Phone: [facility] Work Phone: 03-06-2020 influenza, injectabl e, quadrivalent, preservative free Chela Chicorelli DO Work Phone: [facility] Work Phone: 01-23-2020 influenza virus vacc ine, unspecified formulation Chela Chicorelli DO Work Phone: [facility] Work Phone: 06-13-2018 influenza, injectabl e, quadrivalent, contains preservative Chela Chicorelli DO Work Phone: [facility] 06-13-2018 tetanus toxoid, redu yoshi diphtheria toxoid, and acellular pertussis vaccine, adsorbed Chela Chicorelli DO Work Phone: [facility] 02-26-2015 influenza, injectabl e, quadrivalent, preservative free Chela Chicorelli DO Work Phone: [facility] 02-15-2013 influenza virus vacc ine, unspecified formulation Chela Chicorelli DO Work Phone: [facility] 01-04-2012 pneumococcal polysaccharide vaccine, 23 valent Chela Skeltonorelli DO Work Phone: [facility] Work Phone: 01-04-[address] Rubio Worthington Work Phone: [facility] Work Phone: 01-04-2012 pneumococcal vaccine , unspecified formulation Dr. Koki Worthington Work Phone: [facility] 03-08-2011 influenza virus vacc ine, unspecified formulation Chela Sheridan DO Work Phone: [facility] 02-04-2010 influenza virus vacc ine, unspecified formulation Chelaantonia Skeltonorelli DO Work Phone: [facility] Work Phone: 11-07-2008 tuberculin skin test ; purified protein derivative solution, intradermal Nga Michel MD Work Phone: [facility] Work Phone: 12-20-1995 measles, mumps and rubella virus vaccine [facility] Work Phone: [facility] Work Phone: Payers Date Payer Category Payer Self-pay [id number] 2023 Medicaid (Managed Care) [facility] AGED BLIND AND DISABLED [id number] 2022 Unknown [id number]. [id number] 2012 Unknown [id number] 2012 Unknown [id number] 2010 Medicaid [facility] [id number] 2010-Present [phone] [address] [place] [address] Medicaid [id number] 2010 Medicaid [id number] 1983 Unknown [id number] 2.16.840.1.757917.3.579.2. 651 1983 Unknown [id number] 2.16.840.1.583953.3.579.2. 651 1983 Unknown [id number] 2.16840.1.858773.3.579.2. 651 1983 Unknown [id number] 2.16.840.1.967231.3.579.2. 651 1983 Unknown [id number] 2.16.840.1.506419.3.579.2. 651 1983 Unknown [id number] 2.16.840.1.437916.3.579.2. 651 1983 Unknown [id number] 2.16.840.1.677874.3.579.2. 1245 1983 Unknown [id number] 2.16.840.1.214830.3.579.2. 1245 1983 Unknown [id number] 2.16.840.1.575012.3.579.2. 1245 1983 Unknown [id number] 2.16.840.1.560185.3.579.2. 1244 1983 Unknown [id number] 2.16.840.1.267082.3.579.2. 1244 1983 Unknown [id number] 2.16.840.1.629224.3.579.2. 479 Unknown [id number] 2.840.1.429066.3.579.2. 462 Unknown [id number] 2.16840.1.204862.3.579.2. 462 Unknown [id number] 2.840.1.855653.3.579.2. 462 Unknown [id number] 2.840.1.472808.3.579.2. 462 Unknown [id number] 2.840.1.814362.3.579.2. 462 Unknown [id number] 2.840.1.803394.3.579.2. 462 Unknown [id number] 2.840.1.940858.3.579.2. 462 Unknown [id number] 2.0.1.336141.3.579.2. 462 Unknown [id number] 2.840.1.793893.3.579.2. 462 Unknown [id number] 2.840.1.544605.3.579.2. 462 Unknown [id number] 2.840.1.071483.3.579.2. 462 Social History Date Type Detail Facility Tobacco smoking stat [facility] Unknown if ever smoked [facility] Start: 1985 Sex Assigned At Not on file [facility] Start: 07-21-2021 End: 03-20-2024 Exposure to SARS-CoV-2 (event) Not sure [facility] Start: 10-18-2018 End: 11-08-2024 Tobacco smoking status KYIS Ex-smoker [facility] Work Phone: Start: 01-24-2000 End: 07-03-2020 History of tobacco use Current smoker [facility] Work Phone: Start: 01-24-2000 End: 07-03-2020 History of tobacco use Cigarette Smoker [facility] Work Phone: Start: 10-18-2018 End: 08-02-2024 Cigarettes smoked current (pack per day) - Reported 0.5 [facility] Start: 10-18-2018 End: 02-15-2024 Tobacco use and exposure Former smokeless tobacco user [facility] Work Phone: End: 08-18-2018 History of tobacco use User of smokeless tobacco [facility] Work Phone: Start: 07-31-2021 End: 12-04-2021 Alcohol intake Current non-drinker of alcohol (finding) [facility] Start: 12-31-2019 End: 08-03-2022 History SDOH Alcohol Frequency 1 [facility] Start: 04-15-2015 History SDOH Alcohol Comment None since 2011 [facility] Start: 06-21-2019 End: 08-03-2022 History SDOH Social Connections Phone 2 [facility] Start: 06-21-2019 End: 10-31-2019 History SDOH Social Connections Meetings 98 [facility] Start: 06-21-2019 End: 11-01-2019 History SDOH Social Connections Living 4 [facility] Start: 07-21-2020 End: 08-03-2022 History SDOH Physical Activity DPW 0 [facility] Start: 06-20-2019 Education 21 [facility] Start: 07-09-2020 End: 03-12-2022 Tobacco Comment vapes 3 mg of nicotine [facility] Start: 1985 Sex Assigned At Female [facility] Start: 09-11-2021 End: 06-23-2023 Tobacco smoking status NHIS Unknown if ever smoked [facility] Start: 12-05-2014 None [facility] Start: 12-05-2014 None;- [facility] Start: 12-05-2014 Spouse/ Significant Other [facility] Start: 03-01-2019 Cigarettes [facility] Start: 10-06-2021 End: 01-18-2022 Exposure to SARS-CoV-2 (event) Unable to assess [facility] Start: 08-03-2022 History SDOH Physical Activity MPS 3 [facility] Start: 08-03-2022 End: 08-02-2024 Social connection and isolation panel [facility] Do you belong to any clubs or organizations such as presybeterian groups, unions, fraternal or athletic groups, or school groups? No [facility] Attends Club or Organization Meetings Not on file [facility] Are you now , , , , never or living with a partner? [facility] How often to you hav e a drink containing alcohol? Never [facility] How hard is it for y ou to pay for the very basics like food, housing, medical care, and heating Not very hard [facility] (I/We) worried wheth er (my/our) food would run out before (I/we) got money to buy more. Never true [facility] Start: 09-01-2018 Gender identity Identifies as female gender (finding) [facility] Start: 07-05-2020 Sexual orientation Choose not to disclose [facility] Do you feel stress - tense, restless, nervous, or anxious, or unable to sleep at night because your mind is troubled all the time - these days [OSQ] Rather much [facility] (I/We) worried wheth er (my/our) food would run out before (I/we) got money to buy more. Sometimes true [facility] How hard is it for y ou to pay for the very basics like food, housing, medical care, and heating Somewhat hard [facility] In the past 12 month s, was there a time when you were not able to pay the mortgage or rent on time? Yes [facility] Start: 12-14-2023 End: 11-08-2024 Alcohol intake Ex-drinker (finding) [facility] Start: 02-14-2024 Tobacco smoking status NHIS Smokes tobacco daily [facility] Work Phone: Start: 02-14-2024 End: 11-08-2024 Tobacco use and exposure Smokeless tobacco non-user [facility] Work Phone: How hard is it for y ou to pay for the very basics like food, housing, medical care, and heating Hard [facility] Medical Equipment Procedure Code Equipment Code Equipment Origin al Text Equipment Identifier Dates KIT,PROX TENODESIS FDA Start: 03-07-2019 KIT,PROX TENODESIS FDA Start: 03-07-2019 KIT,PROX TENODESIS FDA Start: 03-07-2019 KIT,PROX TENODESIS FDA Start: 03-07-2019 KIT,PROX TENODESIS FDA Start: 03-07-2019 KIT,PROX TENODESIS FDA Start: 03-07-2019 KIT,PROX TENODESIS FDA Start: 03-07-2019 KIT,PROX TENODESIS FDA Start: 03-07-2019 KIT,PROX TENODESIS FDA Start: 03-07-2019 KIT,PROX TENODESIS FDA Start: 03-07-2019 KIT,PROX TENODESIS FDA Start: 03-07-2019 KIT,PROX TENODESIS FDA Start: 03-07-2019 KIT,PROX TENODESIS FDA Start: 03-07-2019 KIT,PROX TENODESIS FDA Start: 03-07-2019 KIT,PROX TENODESIS FDA Start: 03-07-2019 Goals Date Patient Goal Desired Activity /State Personal health goal Functional Status Date Assessment Result Facility 11-26-2014 Are you deaf, or do you have serious difficulty hearing No 11/26/2014 10:58 AM [facility] 11-26-2014 Are you blind, or do you have serious difficulty seeing, even when wearing glasses No 11/26/2014 10:58 AM [facility] 11-26-2014 Do you have serious difficulty walking or climbing stairs No 11/26/2014 10:58 AM [facility] 11-26-2014 Do you have difficul ty dressing or bathing No 11/26/2014 10:58 AM [facility] 11-26-2014 Because of a physica l, mental, or emotional condition, do you have difficulty doing errands alone such as visiting a physician's office or shopping No 11/26/2014 10:58 AM [facility] Mental Status Date Assessment Result Facility 09-11-2021 Cognitive function Level Of Cons ciousness Awake;Alert;Appropriate;Fol lows Commands [facility] Work Phone: 11-26-2014 Because of a physica l, mental, or emotional condition, do you have serious difficulty concentrating, remembering, or making decisions No 11/26/2014 10:58 AM EDT Marko Dan, Isabel Ochoa [facility] Clinical Notes 07-29-2015 to 11-28-2024 Telephone Encounter - Nga Adams LPN - 11/28/2024 10:09 AM EDTTelephone Encounter - gNa Adams LPN - 11/28/2024 10:09 AM EDTPatient InstructionsPatient InstructionsPatient Instructions Note Date & Type Note Facility 11-28-2024 Telephone encounter Note Patient called [facility] to report she would like to move forward with implantable loop recorder. Nga Adams LPN [facility] 11-28-2024 Miscellaneous Notes Patient called [facility] to report she would like to move forward with implantable loop recorder. Nga Adams LPN documented in this encounter [facility] 11-19-2024 Telephone encounter Note The patient has been identified by name and date of : Yes Caregiver verified no other encounters exist for this prescription request: Yes Caregiver confirmed with patient/requestor that no other refills are due, in the near future, with this provider at this time: Yes The last office visit in the department: 11/05/2024 Does the patient have a future office visit with this provider/department: Yes 05/07/2025 Requested Prescriptions Pending Prescriptions Disp Refills montelukast (SINGULAIR) 10 mg tablet 90 tablet 1 Sig: Take 1 tablet by mouth daily at bedtime. Cinthya Ackerman RN November 19, 2024 4:25 PM [facility] 11-19-2024 Miscellaneous Notes The patient has been identified by name and date of : Yes Caregiver verified no other encounters exist for this prescription request: Yes Caregiver confirmed with patient/requestor that no other refills are due, in the near future, with this provider at this time: Yes The last office visit in the department: 11/05/2024 Does the patient have a future office visit with this provider/department: Yes 05/07/2025 Requested Prescriptions Pending Prescriptions Disp Refills montelukast (SINGULAIR) 10 mg tablet 90 tablet 1 Sig: Take 1 tablet by mouth daily at bedtime. Cinthya Ackerman RN November 19, 2024 4:25 PM documented in this encounter [facility] 11-08-2024 Instructions Clifton Schneider MD - 11/08/2024 3:12 PM EDT We discussed your palpitations, intermittent tachycardia, and related symptoms: - Your symptoms, including rapid irregular heartbeats, skipped beats, and occasional lightheadedness, have been ongoing and worsening over the past 1-2 months. You also reported near-fainting episodes and difficulty with daily activities such as walking and driving. - Your cardiac monitoring from September 06-2024, showed predominantly normal sinus rhythm with rare premature beats (PACs and PVCs) and two brief episodes of supraventricular tachycardia (SVT). Your echocardiogram from September 20, 2024, showed normal heart function with no significant abnormalities. - We discussed potential triggers for your symptoms, including stress, anxiety, caffeine, and low sleep. Please continue to avoid smoking, limit caffeine intake, and focus on managing stress and anxiety as much as possible. - You are currently taking nadolol (beta leonora) as needed for irregular heartbeats. While it helps, you noted that it sometimes lowers your heart rate and blood pressure too much, causing additional symptoms. We discussed treatment options moving forward: - I recommend considering flecainide, an antiarrhythmic medication, to help suppress rapid and irregular heartbeats. This can be taken as needed at a low dose (50 mg). Flecainide is safe for you based on your heart function and lack of coronary artery disease. I will review your case further and send a prescription if I determine it is appropriate. - If your symptoms persist or worsen, we may consider an implantable cardiac loop recorder. This small device is placed under the skin and provides continuous heart monitoring for up to 4 years. It can help us better understand your symptoms, including palpitations, rapid heartbeats, and lightheadedness, by capturing your heart rhythm during these episodes. Please think about whether you would like to pursue this option, and we can schedule the procedure if you decide to move forward. Next steps: - I will review your case and send a prescription for flecainide if appropriate. - Please monitor your symptoms and note any patterns or triggers. If your symptoms worsen or you experience severe lightheadedness, vision changes, or fainting, please seek medical attention immediately. - Consider whether you would like to proceed with the implantable cardiac loop recorder. If you decide to move forward, we can schedule the procedure here. If you have any questions or concerns, please contact our office. documented in this encounter [facility] 11-08-2024 History of Present illness Narrative PRIMARY CARE PHYSICIAN: Koki Worthington [address] [place] [address] Patient Care Team: Koki Worthington MD as PCP - General (Internal Medicine) Adore Miller APRN.CNP as Specialty Eyelet Row Marker (Cardiology) Briana Leggett APRN.CNP as Clean Rice Broker (Internal Medicine) Gio Holguin MD as Specialty Eyelet Row Marker (Cardiology) CHIEF COMPLAINT: Follow up for arrhythmia HISTORY OF PRESENT ILLNESS: Ms. Witt is a 39 year old female who presents today for a cardiovascular medicine follow-up visit. 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 Patient/authorized sales representative public utilities agreed to proceed History from previous notes, edited as needed and/or generated by dictation with use of AI.: Patient Overview: Ms. Witt presents for repeat consultation for palpitations and intermittent tachycardia. She was evaluated by Dr. Schneider in the [facility] office outpatient clinic in July 2020 for the same issue. She is referred by the [facility]. When she was evaluated in 2020, she reported experiencing intermittent palpitations and tachycardia since about 2003 when she was approximately 18 years of age. She also experienced intermittent chest discomfort or pain. She reported rapid irregular heartbeats, sometimes associated with shortness of breath and feeling of anxiety. She acknowledged that anxiety probably plays a role in the episodes in one form or another. Potential triggering or exacerbating factors for her symptoms included stress and anxiety. There was some potential trigger from other factors, including caffeinated beverages and lack of sufficient sleep. She was experiencing symptoms frequently a couple of times a week. She was treated with a beta leonora, nadolol, and then over time switched to metoprolol. She considered the metoprolol to be somewhat helpful, but dosages were limited by low blood pressure and bradycardia. There was discussion during that visit as to the various arrhythmias that might have been recorded. Review of extensive medical records indicated that her symptoms of, skipped beats or, flutter beats seem to correlate with PVCs or premature ventricular contractions. Other symptoms, particularly chest discomfort, did not correlate with substantial arrhythmia. There were times that sinus tachycardia was recorded although an atrial tachycardia could not be entirely excluded. there was consideration of considering flecainide antiarrhythmic drug if optimal tolerated doses of the beta leonora were ineffective. She was evaluated by her primary care physician, Dr. Worthington, 11/05/2024. Her office notes indicate that Ms. Witt has been taking nadolol as needed for palpitations, it seems that metoprolol was discontinued over time due to inefficacy. Evidently, Ms. Witt reported that she had resumed smoking. reported daily pain. Evidently, she has complex regional pain syndrome. Diagnostic Results: - Echocardiogram (09/20/2024): - Normal left ventricular systolic function - LVEF: 56% - Mild concentric LVH - Normal atrial dimensions - No significant valvular abnormalities - Cardiac Monitoring (09/06/2024 - 09/20/2024): - Predominantly sinus rhythm - Minimum heart rate: 47 bpm - Maximum heart rate: 167 bpm - Average heart rate: 78 bpm - Two supraventricular tachycardia runs, fastest one being 5 beats duration with a maximum rate of 167 bpm, average 149 bpm - Supraventricular tachycardia detected within 45 seconds of symptomatic patient events - Rare PACs and rare PVCs Items for Follow-Up Today: - Evaluation for arrhythmia by electrophysiology Interim History Dr. Schneider 11/08/2024: The patient is a 39-year-old female with a history of palpitations and intermittent tachycardia, presenting for repeat consultation. The patient was previously evaluated in 2020 for similar symptoms, which she has experienced since approximately 2003. At that time, she reported rapid, irregular heartbeats, sometimes associated with dyspnea and anxiety. Potential triggers included stress, anxiety, caffeine, and insufficient sleep. Cardiac testing, including an echocardiogram and stress testing, was unremarkable. She was treated with nadolol and later switched to metoprolol, which was somewhat helpful but limited by hypotension and bradycardia. Her symptoms of skipped beats or flutter beats were correlated with PVCs, and she was reassured that her arrhythmias were benign. A TTE on 09/20/2024 revealed normal LV systolic function (LVEF 56%), mild concentric LVH, normal atrial dimensions, and no significant valvular abnormalities. Cardiac monitoring from 09/06/2024 to 09/20/2024 showed predominantly sinus rhythm with rare PACs and PVCs, and two SVT runs. She was evaluated by her PCP on 11/05/2024 and was noted to be taking nadolol as needed for palpitations. Metoprolol was discontinued due to inefficacy. Over the past 1.5-2 months, she reports worsening symptoms, including more frequent episodes of rapid heartbeats and near-syncope, which impede her driving and walking. She describes episodes where her heart feels like it is going blah, blah, blah, accompanied by vision changes. She notes that nadolol helps but sometimes lowers her heart rate and blood pressure too much, causing additional issues. She manages hypotension by drinking cold water and low heart rates by consuming caffeine. She has stopped going to the gym due to fear of passing out during exercise. She denies any recent surgeries. She has resumed smoking and reports daily pain due to complex regional pain syndrome. 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 Family history is significant for stroke in her mother, who is on blood thinners, and multiple strokes in her grandmother. A cousin was recently found to have >90% coronary artery blockage at a young age. Her half-sister has diabetes. I have confirmed and edited as necessary, the PFSH and ROS obtained by others. PAST MEDICAL HISTORY Diagnosis Date Abnormal uterine [...] prior urine tox screens negative. 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 Smoker 06/24/2010 Snoring 09/29/2009 Sleep study completed [...] INSERTION OF IUD 04/16/2010 Paragard and removed INSERTION OF IUD 01/13/2024 MIRENA LAPS SURG CHOLECYSTECTOMY W/CHOLANGIOGRAPHY 02/12/2014 normal IOC LARYNGOSCOPY LARYNGOSCOPY LEFT HEART CATH,PERCUTANEOUS 2008 MIRENA 08/02/2016 Placed in office- due for removal 2023 MYRINGOTOMY ASPIR&/EUSTACHIAN TUBE NFLTJ ANES Myringotomy/tubes PAST SURGICAL HISTORY OF Right 02/05/2015 ulnar pinning X2 PAST SURGICAL HISTORY OF Right 09/10/2014 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 - Left shoulder surgery - repair of slap tear and arthroscopy SURGICAL EXTRACTION ERUPTED TOOTH 03/03/2009 had all top teeth removed TONSILLECTOMY PRIMARY/SECONDARY <AGE 10 Tonsillectomy TUBAL LIGATION, 2011 TYMPANIC MEMB RPR W/WO PREPJ PERFOR PATCH Tympanoplasty WRIST SURGERY HX Right 02/2015 surgery right wrist-ulnar fx SOCIAL HISTORY Social History Tobacco Use Smoking status: Former Current packs/day: 0.00 Average packs/day: 0.5 packs/day for 20.4 years (10.2 ttl pk-yrs) Types: Cigarettes Start date: 01/24/2000 Quit date: 07/03/2020 Years since quittin.3 Smokeless tobacco: Never Vaping Use Vaping status: Some Days Start date: 07/03/2020 Substances: Nicotine, Flavoring Devices: Pre-filled or refillable cartridge Substance Use Topics Alcohol use: Not Currently Comment: None since 2011 Drug use: Not Currently Types: Marijuana Comment: Not currrently- hx pot and opoids- none since age 15 FAMILY HISTORY Problem Relation Age of Onset Allergies Mother Rheumatoid Lipids Mother COPD Mother other (HYPOGLYCEMIA) Mother other (CHRONIC BRONCHITIS) Mother 46 other (Rheumatoid Arthritis) Mother Hypertension Mother Hyperlipidemia Mother Rheumatologic disease Mother Unknown type Depression Mother Stroke Mother takes an anticoagulant Diabetes Father Heart Father COPD Father Hypertension Father Hyperlipidemia Father Post-Traumatic Stress Disorder Father Asthma Sister Thyroid Sister Bipolar disorder Sister Diabetes Sister Hypertension Maternal Grandmother Stroke Maternal Grandmother [...] No Family History Aneurysm No Family History ALLERGIES: ALLERGIES Allergen Reactions Bee Venom Protein (* Anaphylaxis none Iv Dye [Iodine] Anaphylaxis Adenosine Intolerance paralyzed for 8 hours Amoxicillin Trihydr* Vomiting Augmentin [Amoxicil* Vomiting Corticosteroids (Gl* Intolerance Joint swelling Feathers Intolerance Allergic to bird dander Potassium Clavulana* GI Upset Prednisone Swelling Severe joint and spine pain and unable to move- able to have injections of joints, just not spine Silvadene [Silver S* Intolerance Dizziness/nausea Sulfa (Sulfonamide * GI Upset MEDICATIONS: pravastatin (PRAVACHOL) 20 mg tablet Take 20 mg by mouth. pyrroloquinoline quinone disod ([id number] QUINONE ORAL) albuterol HFA (PROVENTIL HFA, VENTOLIN HFA) 90 mcg/actuation inhaler Inhale 2 puffs as instructed every 4 hours as needed. fluticasone (FLOVENT) 220 mcg/actuation inhaler Inhale 1 Puff as instructed two times a day. Shake well before use. Rinse mouth after use. montelukast (SINGULAIR) 10 mg tablet Take 1 tablet by mouth daily at bedtime. metroNIDAZOLE (METROGEL VAGINAL) 0.75 % (37.5mg/5 gram) Vaginal Gel Use 1 applicator vaginally twice per week. albuterol (PROVENTIL) 2.5 mg /3 mL (0.083 %) nebulizer solution Use 3 mL via nebulizer every 4 hours as needed for wheezing/shortness of breath. Use over 5-15minutes. levonorgestrel (MIRENA) 21 mcg/24 hr (8 yrs) 52 mg IUD 1 Each by INTRAUTERINE route as directed. Nebulizer Accessories misc 1 Each as needed. ibuprofen (MOTRIN) 800 mg tablet Take 1 tablet by mouth every 8 hours as needed for pain. Take with food. omeprazole (PRILOSEC) 20 mg capsule TAKE 1 CAPSULE BY MOUTH 1/2 HOUR before breakfast Nebulizers 1 Each as needed. Nebulizer with accessories/tubing ubidecarenone (H2Q COQ10 ORAL) Take by mouth. 50mg x1 daily nadolol (CORGARD) 20 mg tablet Take 0.5 tablets by mouth twice daily. (Patient taking differently: Take 10 mg by mouth two times a day. She takes 1/2 or even 1/4 tablet as needed for palpitations) Lactobacillus acidophilus (FLORAJEN ACIDOPHILUS) 20 billion cell cap Take 460 mg by mouth once daily. clonazePAM (KLONOPIN) 0.5 mg tablet Take 1 tablet by mouth four times daily as needed. EPINEPHrine (EPIPEN) 0.3 mg/0.3 mL auto-injector Use as directed for allergic reaction. Seek emergent medical care immediately after use. nitroglycerin sublingual (NITROQUICK) 0.4 mg SL tablet Dissolve 1 tablet under the tongue every 5 minutes as needed. meclizine (ANTIVERT) 25 mg tab Take 25 mg by mouth twice daily as needed. sertraline (ZOLOFT) 100 mg tablet Take 100 mg by mouth twice daily. Review of Systems Constitutional: Positive for malaise/fatigue. Negative for chills and fever. Respiratory: Positive for shortness of breath. Negative for cough, hemoptysis and sputum production. Cardiovascular: Positive for chest pain and palpitations. Negative for orthopnea, claudication, leg swelling and PND. Gastrointestinal: Negative for abdominal pain, blood in stool, melena, nausea and vomiting. Genitourinary: Negative for dysuria, flank pain and hematuria. Skin: Negative for rash. Neurological: Positive for dizziness, loss of consciousness and weakness. Negative for focal weakness and seizures. PHYSICAL EXAMINATION: BP 116/80 Pulse 83 Wt 216 lb (98.0kg) SpO2 98% Physical Exam Vitals reviewed. Constitutional: General: She is not in acute distress. Appearance: Normal appearance. HENT: Head: Normocephalic and atraumatic. Cardiovascular: Rate and Rhythm: Normal rate and regular rhythm. Heart sounds: Normal heart sounds, S1 normal and S2 normal. No murmur heard. No friction rub. Pulmonary: Effort: Pulmonary effort is normal. No respiratory distress. Breath sounds: Normal breath sounds. No wheezing, rhonchi or rales. Musculoskeletal: Cervical back: Neck supple. Right lower leg: No edema. Left lower leg: No edema. Skin: General: Skin is warm and dry. Neurological: General: No focal deficit present. Mental Status: She is alert and oriented to person, place, and time. Psychiatric: Mood and Affect: Mood normal. Behavior: Behavior normal. Thought Content: Thought content normal. CARDIOVASCULAR MEDICINE TESTING: Electrocardiogram: Sinus rhythm 77 bpm; normal conduction intervals (UT 140 ms, QRS 84 ms); QTc 418 ms; inferior T wave abnormality similar to previous EKGs I have personally reviewed the Electrocardiogram. I spent a total of 45 minutes on the date of the service which included preparing to see the patient, [id number] patient care, completing clinical documentation, obtaining and/or reviewing separately obtained history, performing a medically appropriate examination, counseling and educating the patient/family/caregiver, ordering medications, tests, or procedures, communicating with other HCPs (not separately reported), independently interpreting results (not separately reported), communicating results to the patient/family/caregiver, and care coordination (not separately reported). 1. Palpitations - ICD9: 785.1, ICD10: R00.2 (primary diagnosis) 2. Paroxysmal tachycardia (HCC) - ICD9: 427.2, ICD10: I47.9 3. PVC (premature ventricular contraction) - ICD9: 427.69, ICD10: I49.3 4. Pre-syncope - ICD9: 780.2, ICD10: R55 5. Bigeminy - ICD9: 427.89, ICD10: I49.8 6. Supraventricular tachycardia (HCC) - ICD9: 427.89, ICD10: I47.10 IMPRESSION: 1. Palpitations (R00.2) Paroxysmal tachycardia (HCC) (I47.9) PVC (premature ventricular contraction) (I49.3) Pre-syncope (R55) Bigeminy (I49.8) Supraventricular tachycardia (HCC) (I47.10) Palpitations and intermittent tachycardia have been ongoing since 2003, with recent worsening over the past 1-2 months. Previous evaluations included unremarkable echocardiogram and cardiac stress testing. Symptoms include rapid irregular heartbeats, shortness of breath, and anxiety. Recent echocardiogram on 09/20/2024 showed normal LVEF of 56% and mild concentric LVH. Cardiac monitoring from 09/06/2024 to 09/20/2024 revealed predominantly sinus rhythm with rare PACs and PVCs, and two SVT runs. Patient has been taking nadolol as needed, but reports side effects of low heart rate and blood pressure. Metoprolol was discontinued due to inefficacy. Patient has a family history of stroke and heart disease. - Discussed potential triggers and exacerbating factors, including stress, anxiety, caffeine, and lack of sleep. - Consider initiating flecainide 50 mg as needed for irregular and rapid heartbeats. - Discussed the option of an implantable cardiac loop recorder for continuous monitoring. - Will send a note to the [facility] regarding the consideration of flecainide and implantable monitor. - Patient to monitor symptoms and report any changes or worsening. PLAN AND RECOMMENDATIONS: As above. The SVT documented by recent cardiac monitoring is probably an atrial tachycardia versus sinus tachycardia. There are times when there is abrupt onset of the arrhythmia that would be more consistent with atrial tachycardia than sinus tachycardia. But she likely also has sinus tachycardia that might represent response to anxiety. PSVT does not seem to be consistent with a reentrant SVT that is easily approached with catheter ablation, such as AVNRT or AVRT. So I think that an EP study with the goal of curative catheter ablation might not have very high yield at this point. Consider flecainide 50 mg twice daily PRN palpitations, to take with the atenolol (perhaps atenolol dosage can be reduced if the addition of flecainide is working) An implantable cardiac loop recorder might have substantial benefit for obtaining symptom-rhythm correlation for the symptoms (palpitations as well as the intermittent lightheadedness, near syncope). She will give this some thought. Directed her to educational materials on the Internet in this regard. I had a detailed discussion with Ms. Witt regarding my evaluation and recommendations. After our discussion, Ms. Witt expressed her understanding and I answered all her questions to her apparent satisfaction. Return for follow up will depend on plan of care. Clifton Schneider MD 11/08/2024 Medical Decision Making: Problems: Moderate: 1+ chronic illnesses with change Data: Unique source(s) for external note(s) reviewed: 3+ Unique test result(s) reviewed: 3+ Unique test(s) ordered: 1 Risk: Moderate: Moderate risk from testing/treatment, Drug management and Decision on minor surgery w/ risk factors Medical Decision Making Level: 4 - Moderate documented in this encounter [facility] 11-08-2024 Note HNO ID: [id number] Author: CLIFTON SCHNEIDER MD Service: ? Author Type: Physician Type: Progress Notes Filed: 11/08/2024 18:15 Note Text: PRIMARY CARE PHYSICIAN: Koki Worthington [address] [place] [address] Patient Care Team: Koki Worthington MD as PCP - General (Internal Medicine) Adore Miller APRN.CNP as Specialty Eyelet Row Marker (Cardiology) Briana Leggett APRN.CNP as Clean Rice Broker (Internal Medicine) Gio Holguin MD as Specialty Eyelet Row Marker (Cardiology) CHIEF COMPLAINT: Follow up for arrhythmia HISTORY OF PRESENT ILLNESS: Ms. Witt is a 39 year old female who presents today for a cardiovascular medicine follow-up visit. 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 Patient/authorized sales representative public utilities agreed to proceed History from previous notes, edited as needed and/or generated by dictation with use of AI.: Patient Overview: Ms. Witt presents for repeat consultation for palpitations and intermittent tachycardia. She was evaluated by Dr. Schneider in the [facility] EP office outpatient clinic in July 2020 for the same issue. She is referred by the [facility]. When she was evaluated in 2020, she reported experiencing intermittent palpitations and tachycardia since about 2003 when she was approximately 18 years of age. She also experienced intermittent chest discomfort or pain. She reported rapid irregular heartbeats, sometimes associated with shortness of breath and feeling of anxiety. She acknowledged that anxiety probably plays a role in the episodes in one form or another. Potential triggering or exacerbating factors for her symptoms included stress and anxiety. There was some potential trigger from other factors, including caffeinated beverages and lack of sufficient sleep. She was experiencing symptoms frequently a couple of times a week. She was treated with a beta leonora, nadolol, and then over time switched to metoprolol. She considered the metoprolol to be somewhat helpful, but dosages were limited by low blood pressure and bradycardia. There was discussion during that visit as to the various arrhythmias that might have been recorded. Review of extensive medical records indicated that her symptoms of, skipped beats or, flutter beats seem to correlate with PVCs or premature ventricular contractions. Other symptoms, particularly chest discomfort, did not correlate with substantial arrhythmia. There were times that sinus tachycardia was recorded although an atrial tachycardia could not be entirely excluded. there was consideration of considering flecainide antiarrhythmic drug if optimal tolerated doses of the beta leonora were ineffective. She was evaluated by her primary care physician, Dr. Worthington, 11/05/2024. Her office notes indicate that Ms. Witt has been taking nadolol as needed for palpitations, it seems that metoprolol was discontinued over time due to inefficacy. Evidently, Ms. Witt reported that she had resumed smoking. reported daily pain. Evidently, she has complex regional pain syndrome. Diagnostic Results: - Echocardiogram (09/20/2024): - Normal left ventricular systolic function - LVEF: 56% - Mild concentric LVH - Normal atrial dimensions - No significant valvular abnormalities - Cardiac Monitoring (09/06/2024 - 09/20/2024): - Predominantly sinus rhythm - Minimum heart rate: 47 bpm - Maximum heart rate: 167 bpm - Average heart rate: 78 bpm - Two supraventricular tachycardia runs, fastest one being 5 beats duration with a maximum rate of 167 bpm, average 149 bpm - Supraventricular tachycardia detected within ?45 seconds of symptomatic patient events - Rare PACs and rare PVCs Items for Follow-Up Today: - Evaluation for arrhythmia by electrophysiology Interim History Dr. Schneider 11/08/2024: The patient is a 39-year-old female with a history of palpitations and intermittent tachycardia, presenting for repeat consultation. The patient was previously evaluated in 2020 for similar symptoms, which she has experienced since approximately 2003. At that time, she reported rapid, irregular heartbeats, sometimes associated with dyspnea and anxiety. Potential triggers included stress, anxiety, caffeine, and insufficient sleep. Cardiac testing, including an echocardiogram and stress testing, was unremarkable. She was treated with nadolol and later switched to metoprolol, which was somewhat helpful but limited by hypotension and bradycardia. Her symptoms of skipped beats or flutter beats were correlated with PVCs, and she was reassured that her arrhythmias were benign. A TTE on 09/20/2024 revealed normal LV systolic function (LVEF 56%), mild concentric LVH, normal atrial dimensions, and no significant valvular abnormalities. Cardiac mon (more content not included)... [facility] 11-05-2024 Instructions Koki Worthington MD - 11/05/2024 8:59 AM EDT We discussed your recent health concerns and overall well-being: - You have experienced multiple infections since March, including COVID-19 (three times), influenza A, and a stomach virus. These were likely due to increased exposure at the hospital and [facility], as well as stress. You have been infection-free for the past two months. - Continue taking Emergen-C daily to support your immune system. - Start taking [id number] Vitamin D2 with food to help prevent infections. Your previous labs showed low Vitamin D levels, and replenishing this will be beneficial. We discussed your asthma: - You are using your inhaler daily, especially in the mornings or during humid weather. Strong smells are also triggering symptoms. - Avoid smoking, as it worsens asthma and can affect your grandson, who has significant respiratory issues. Even smoking outside can leave residue on your clothing that may impact him. Please consider quitting for your health and his. We discussed your complex regional pain syndrome (CRPS): - You are experiencing daily pain, with some days being worse than others. Overexertion can worsen your symptoms. Continue managing your activity levels to avoid flare-ups. We discussed your weight and exercise: - You have lost weight over the past two years, going from 241 lbs to 220 lbs. Your clothes are fitting differently, which may be due to building muscle at the gym. Keep up the good work with your exercise routine. - Regular exercise and weight loss can help improve your HDL cholesterol levels, which were slightly low on your last labs. We discussed your tachycardia and blood pressure: - You are taking Nadolol as needed for irregular heartbeats, but it has caused your heart rate to drop too low at times. Continue monitoring your symptoms and follow up with your antique jewelry repairer as needed. - Your blood pressure is currently well-controlled. Follow-Up: - No immediate follow-up is needed unless your symptoms worsen or new concerns arise. - Continue your current care plan, including taking Vitamin D2, using your inhaler as needed, and maintaining your exercise routine. - If you experience worsening asthma symptoms, increased pain, or other health concerns, please contact our office. documented in this encounter [facility] 11-05-2024 Note HNO ID: [id number] Author: KOKI WORTHINGTON MD Service: ? Author Type: Physician Type: Progress Notes Filed: 11/05/2024 13:23 Note Text: Reason for Visit Follow up HPI Bria Witt is a 39-year-old female with a history of asthma, complex regional pain syndrome, and tachycardia, presenting for follow-up. Bria reports a series of illnesses since March, including three episodes of COVID-19, influenza A, and a gastrointestinal virus. She attributes these infections to increased exposure in hospital settings and the [facility], where she has spent significant time due to her grandson's NICU stay. She has been taking Emergen-C daily and has not experienced any illnesses in the past two months. She denies being immunocompromised but notes that her mother is, due to cancer and chemotherapy treatment. Bria reports daily pain from complex regional pain syndrome, which sometimes limits her ability to perform daily activities. She describes the pain as constant but variable in intensity, worsening with overexertion. She is currently taking nadolol as needed for tachycardia, initially prescribed by Dr. Harvey. She was previously on metoprolol, which was ineffective for her irregular heartbeats. The nadolol has caused her heart rate to drop below 60 bpm, with her watch recording a low of 41 bpm. She denies current symptoms of tachycardia. Bria has resumed smoking, with variable consumption. She reports daily use of her inhaler, especially in the mornings and during the summer due to heat and humidity. She experiences wheezing and chest tightness, triggered by strong smells, a sensitivity that developed in the past year. On good days, she only uses her Proventil inhaler. She is actively working on weight loss and strength training to better care for her medically complex grandson, who has multiple diagnoses, including a tracheostomy and G-tube. She reports a weight of 220 lbs, down from a high of 250 lbs, and notes that her clothes fit differently, suggesting muscle gain from her gym activities. Social History Tobacco Use Smoking status: Former Current packs/day: 0.00 Average packs/day: 0.5 packs/day for 20.4 years (10.2 ttl pk-yrs) Types: Cigarettes Start date: 01/24/2000 Quit date: 07/03/2020 Years since quittin.3 Smokeless tobacco: Former Quit date: 08/18/2018 Vaping Use Vaping status: Some Days Start date: 07/03/2020 Substances: Nicotine, Flavoring Devices: Pre-filled or refillable cartridge Substance Use Topics Alcohol use: Not Currently Comment: None since 2011 Drug use: Not Currently Types: Marijuana Comment: Not currrently- hx pot and opoids- none since age 15 Past medical history, appointments, medications, allergies reviewed. Pertinent Lab/Diagnostic Studies are reviewed and discussed today Current Outpatient Medications: albuterol HFA (PROVENTIL HFA, VENTOLIN HFA) 90 mcg/actuation inhaler fluticasone (FLOVENT) 220 mcg/actuation inhaler nadolol (CORGARD) 20 mg tablet montelukast (SINGULAIR) 10 mg tablet metroNIDAZOLE (METROGEL VAGINAL) 0.75 % (37.5mg/5 gram) Vaginal Gel albuterol (PROVENTIL) 2.5 mg /3 mL (0.083 %) nebulizer solution levonorgestrel (MIRENA) 21 mcg/24 hr (8 yrs) 52 mg IUD Nebulizer Accessories misc ibuprofen (MOTRIN) 800 mg tablet omeprazole (PRILOSEC) 20 mg capsule Nebulizers ubidecarenone (H2Q COQ10 ORAL) nadolol (CORGARD) 20 mg tablet Lactobacillus acidophilus (FLORAJEN ACIDOPHILUS) 20 billion cell cap clonazePAM (KLONOPIN) 0.5 mg tablet EPINEPHrine (EPIPEN) 0.3 mg/0.3 mL auto-injector nitroglycerin sublingual (NITROQUICK) 0.4 mg SL tablet meclizine (ANTIVERT) 25 mg tab sertraline (ZOLOFT) 100 mg tablet benzonatate (TESSALON PERLE) 100 mg capsule oxyCODONE-acetaminophen (PERCOCET) 5-325 mg tablet Health Maintenance Depression Screening Hepatitis B Vaccine(2 of 3 - 19+ 3-dose series) Mammogram Screening@ Review Of Systems Constitutional: (+) sleep disturbance Respiratory: (+) wheezing, (+) chest tightness Musculoskeletal: (+) musculoskeletal pain Physical Exam BP 108/63 (BP Site: Left Arm, BP Position: Sitting, BP Cuff Size: Regular Adult) Pulse 61 Wt 100.1 kg (220 lb 9.6 oz) LMP (LMP Unknown) SpO2 98% BMI 36.71 kg/m? GENERAL: NAD, alert and oriented. SKIN: Unremarkable, no rash or skin lesions. HEAD: Normocephalic. EYES: PERRLA, EOMI, conjunctiva clear. EARS: External ears normal, canals clear, TM's normal. NOSE/SINUSES: Nares normal. Septum midline. OROPHARYNX: Lips, mucosa, and tongue normal, good dentition. No oral lesions noted. NECK: Supple, no lymphadenopathy, normal thyroid, no carotid bruits. LUNGS: Clear to auscultation bilaterally, no wheezes/rhonchi/rales. HEART: Regular rate and rhythm, no murmurs. No ectopy. EXTREMITIES: Normal, no deformities, no skin discoloration, no edema. NEURO: Awake, alert and oriented x3, cranial nerves II-XII hemant (more content not included)... [facility] 11-05-2024 History of Present illness Narrative Reason for Visit Follow up HPI Bria Witt is a 39-year-old female with a history of asthma, complex regional pain syndrome, and tachycardia, presenting for follow-up. Bria reports a series of illnesses since March, including three episodes of COVID-19, influenza A, and a gastrointestinal virus. She attributes these infections to increased exposure in hospital settings and the [facility], where she has spent significant time due to her grandson's NICU stay. She has been taking Emergen-C daily and has not experienced any illnesses in the past two months. She denies being immunocompromised but notes that her mother is, due to cancer and chemotherapy treatment. Brai reports daily pain from complex regional pain syndrome, which sometimes limits her ability to perform daily activities. She describes the pain as constant but variable in intensity, worsening with overexertion. She is currently taking nadolol as needed for tachycardia, initially prescribed by Dr. Harvey. She was previously on metoprolol, which was ineffective for her irregular heartbeats. The nadolol has caused her heart rate to drop below 60 bpm, with her watch recording a low of 41 bpm. She denies current symptoms of tachycardia. Bria has resumed smoking, with variable consumption. She reports daily use of her inhaler, especially in the mornings and during the summer due to heat and humidity. She experiences wheezing and chest tightness, triggered by strong smells, a sensitivity that developed in the past year. On good days, she only uses her Proventil inhaler. She is actively working on weight loss and strength training to better care for her medically complex grandson, who has multiple diagnoses, including a tracheostomy and G-tube. She reports a weight of 220 lbs, down from a high of 250 lbs, and notes that her clothes fit differently, suggesting muscle gain from her gym activities. Social History Tobacco Use Smoking status: Former Current packs/day: 0.00 Average packs/day: 0.5 packs/day for 20.4 years (10.2 ttl pk-yrs) Types: Cigarettes Start date: 01/24/2000 Quit date: 07/03/2020 Years since quittin.3 Smokeless tobacco: Former Quit date: 08/18/2018 Vaping Use Vaping status: Some Days Start date: 07/03/2020 Substances: Nicotine, Flavoring Devices: Pre-filled or refillable cartridge Substance Use Topics Alcohol use: Not Currently Comment: None since 2011 Drug use: Not Currently Types: Marijuana Comment: Not currrently- hx pot and opoids- none since age 15 Past medical history, appointments, medications, allergies reviewed. Pertinent Lab/Diagnostic Studies are reviewed and discussed today Current Outpatient Medications: albuterol HFA (PROVENTIL HFA, VENTOLIN HFA) 90 mcg/actuation inhaler fluticasone (FLOVENT) 220 mcg/actuation inhaler nadolol (CORGARD) 20 mg tablet montelukast (SINGULAIR) 10 mg tablet metroNIDAZOLE (METROGEL VAGINAL) 0.75 % (37.5mg/5 gram) Vaginal Gel albuterol (PROVENTIL) 2.5 mg /3 mL (0.083 %) nebulizer solution levonorgestrel (MIRENA) 21 mcg/24 hr (8 yrs) 52 mg IUD Nebulizer Accessories misc ibuprofen (MOTRIN) 800 mg tablet omeprazole (PRILOSEC) 20 mg capsule Nebulizers ubidecarenone (H2Q COQ10 ORAL) nadolol (CORGARD) 20 mg tablet Lactobacillus acidophilus (FLORAJEN ACIDOPHILUS) 20 billion cell cap clonazePAM (KLONOPIN) 0.5 mg tablet EPINEPHrine (EPIPEN) 0.3 mg/0.3 mL auto-injector nitroglycerin sublingual (NITROQUICK) 0.4 mg SL tablet meclizine (ANTIVERT) 25 mg tab sertraline (ZOLOFT) 100 mg tablet benzonatate (TESSALON PERLE) 100 mg capsule oxyCODONE-acetaminophen (PERCOCET) 5-325 mg tablet Health Maintenance Depression Screening Hepatitis B Vaccine(2 of 3 - 19+ 3-dose series) Mammogram Screening@ Review Of Systems Constitutional: (+) sleep disturbance Respiratory: (+) wheezing, (+) chest tightness Musculoskeletal: (+) musculoskeletal pain Physical Exam BP 108/63 (BP Site: Left Arm, BP Position: Sitting, BP Cuff Size: Regular Adult) Pulse 61 Wt 100.1 kg (220 lb 9.6 oz) LMP (LMP Unknown) SpO2 98% BMI 36.71 kg/m GENERAL: NAD, alert and oriented. SKIN: Unremarkable, no rash or skin lesions. HEAD: Normocephalic. EYES: PERRLA, EOMI, conjunctiva clear. EARS: External ears normal, canals clear, TM's normal. NOSE/SINUSES: Nares normal. Septum midline. OROPHARYNX: Lips, mucosa, and tongue normal, good dentition. No oral lesions noted. NECK: Supple, no lymphadenopathy, normal thyroid, no carotid bruits. LUNGS: Clear to auscultation bilaterally, no wheezes/rhonchi/rales. HEART: Regular rate and rhythm, no murmurs. No ectopy. EXTREMITIES: Normal, no deformities, no skin discoloration, no edema. NEURO: Awake, alert and oriented x3, cranial nerves II-XII grossly intact, normal gait, no involuntary motions. Labs: - Lipid Panel: - Total cholesterol: Within normal limits - HDL: Decreased - Vitamin D: Low Assessment and Plan 1. Essential hypertension (I10) Paroxysmal tachycardia (HCC) (I47.9) Blood pressure is well-controlled. Patient is currently taking nadolol as needed for paroxysmal tachycardia, previously trialed on metoprolol without success. Reports episodes of bradycardia with heart rates as low as 41 bpm. - Continue nadolol as needed. - Follow-up with electrophysiology for further evaluation of tachycardia. 2. Mild intermittent asthma without complication (HCC) (J45.20) Asthma is exacerbated by environmental triggers such as humidity and strong odors. Patient uses inhaler daily, particularly in the morning. - Ensure pneumococcal vaccination is up to date. - Advised to avoid known triggers and continue using inhaler as needed. 3. Gastroesophageal reflux disease, unspecified whether esophagitis present (K21.9) 4. Tobacco abuse (Z72.0) Patient has resumed smoking, albeit minimally. Acknowledges the potential impact on asthma and the health of her grandchild with respiratory issues. - Advised on the risks of smoking, especially in relation to asthma and secondhand exposure to her grandchild. - Encouraged smoking cessation. 5. Complex regional pain syndrome type 1 of right upper extremity (G90.511) Chronic pain is persistent and impacts daily activities. Pain severity varies, with some days being more debilitating than others. - Continue current pain management strategies. - Monitor for any changes in pain patterns or severity. 6. Anxiety and depression (F41.9) Voice recognition software was used to compose this office note. Please excuse any unintended typographical errors. Recording using [employer] software for draft documentation of the visit was discussed with the patient/authorized sales representative public utilities; all questions welcomed and answered. Patient/authorized sales representative public utilities agreed to proceed Koki Worthington MD documented in this encounter [facility] 10-16-2024 Note Patient Outreach (IN [facility]) ---- DEBRABRIA VINES ([id number]) 1985 F Date Time Provider Department 10/16/24 KOKI WORTHINGTON During your visit today, we recorded the following information about you: Allergies As of Date: 10/16/2024 Noted Allergy Reaction BEE VENOM PROTEIN (HONEY BEE) 05/30/2018 10 - Anaphylaxis Comments: none IV DYE (IODINE) 05/03/2023 10 - Anaphylaxis ADENOSINE 05/30/2018 5 - Intolerance Comments: paralyzed for 8 hours AMOXICILLIN TRIHYDRATE 09/11/2021 11 - Vomiting AUGMENTIN (AMOXICILLIN-POT CLAVUL*09/21/2010 11 - Vomiting CORTICOSTEROIDS (GLUCOCORTICOIDS) 05/30/2018 5 - Intolerance Comments: Joint swelling FEATHERS 05/30/2018 5 - Intolerance Comments: Allergic to bird dander POTASSIUM CLAVULANATE 05/30/2018 8 - GI Upset PREDNISONE 01/01/2010 7 - Swelling Comments: Severe joint and spine pain and unable to move- able to have injections of joints, just not spine SILVADENE (SILVER SULFADIAZINE) 01/17/2008 5 - Intolerance Comments: Dizziness/nausea SULFA (SULFONAMIDE ANTIBIOTICS) 02/20/2008 8 - GI Upset Date Reviewed: 09/06/2024 Reviewed by: Briana Leggett APRN.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 - Fully Assessed Visit Diagnosis:Hyperlipidemia, mixed [E78.2] Order(s):LIPID PANEL, FASTING [SQLIPB] Order #: [id number] FUTURE Prescriptions as of 10/19/2024 - albuterol HFA (PROVENTIL HFA, VENTOLIN HFA) 90 mcg/actuation inhaler Inhale 2 puffs as instructed every 4 hours as needed. - fluticasone (FLOVENT) 220 mcg/actuation inhaler Inhale 1 Puff as instructed two times a day. Shake well before use. Rinse mouth after use. - benzonatate (TESSALON PERLE) 100 mg capsule Take 2 capsules by mouth three times a day as needed. - nadolol (CORGARD) 20 mg tablet Take 1 tablet by mouth once daily. - montelukast (SINGULAIR) 10 mg tablet Take 1 tablet by mouth daily at bedtime. - metroNIDAZOLE (METROGEL VAGINAL) 0.75 % (37.5mg/5 gram) Vaginal Gel Use 1 applicator vaginally twice per week. - albuterol (PROVENTIL) 2.5 mg /3 mL (0.083 %) nebulizer solution Use 3 mL via nebulizer every 4 hours as needed for wheezing/shortness of breath. Use over 5-15minutes. - levonorgestrel (MIRENA) 21 mcg/24 hr (8 yrs) 52 mg IUD 1 Each by INTRAUTERINE route as directed. - Nebulizer Accessories misc 1 Each as needed. - ibuprofen (MOTRIN) 800 mg tablet Take 1 tablet by mouth every 8 hours as needed for pain. Take with food. - omeprazole (PRILOSEC) 20 mg capsule TAKE 1 CAPSULE BY MOUTH 1/2 HOUR before breakfast - Nebulizers 1 Each as needed. Nebulizer with accessories/tubing - ubidecarenone (H2Q COQ10 ORAL) Take by mouth. 50mg x1 daily - oxyCODONE-acetaminophen (PERCOCET) 5-325 mg tablet Take 1-2 tablets by mouth as directed. Every 4-6 hours as needed for pain. - nadolol (CORGARD) 20 mg tablet Take 0.5 tablets by mouth twice daily. - Lactobacillus acidophilus (FLORAJEN ACIDOPHILUS) 20 billion cell cap Take 460 mg by mouth once daily. - clonazePAM (KLONOPIN) 0.5 mg tablet Take 1 tablet by mouth four times daily as needed. - EPINEPHrine (EPIPEN) 0.3 mg/0.3 mL auto-injector Use as directed for allergic reaction. Seek emergent medical care immediately after use. - nitroglycerin sublingual (NITROQUICK) 0.4 mg SL tablet Dissolve 1 tablet under the tongue every 5 minutes as needed. - meclizine (ANTIVERT) 25 mg tab Take 25 mg by mouth twice daily as needed. - sertraline (ZOLOFT) 100 mg tablet Take 100 mg by mouth twice daily. Meds Comments as of 11/03/2009: Problem List As Of Date 10/16/2024 Noted Resolved Non-Healing Surgical Wound [T81.89XA] 01/16/2008 [...] [R00.2] 09/18/2014 Pain in left wrist [M25.532] 05/06/2015 02/17/2016 Pain in right wrist [M25.531] 05/06/2015 1 (more content not included)... [facility] 10-06-2024 Telephone encounter Note Scheduled with Leslie on 11/08/2024 [facility] 10-06-2024 Miscellaneous Notes Scheduled with Leslie on 11/08/2024 I have put in a cardiology consult. If she is willing to travel, she may be able to see a [facility] antique jewelry repairer sooner then waiting to see one in [place]. Thank you Briana Leggett APRN.VELVET Pt called and is notified of providers results and instructions. Pt voices understanding. She states she sees Adore Miller EXPERT MEDICAL WRITER with [facility]. She states he doesn't listen to her when she talks, and it's hard to get into them. She was asking if there was anyone the provider would recommend she go to. I let her know we have [employer] here, but they are only here on Mondays and it takes a long time to get in. Shawnee Sifuentes RN There was a lot of symptomatic PVCs which are early ventricular contractions. These are not life threatening, but with the symptoms, I want her to follow up with cardiology. I know she has seen one in the past. Who is her antique jewelry repairer and when did she last see them? 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 Thank you. Cady Torres RN documented in this encounter [facility] 10-05-2024 Telephone encounter Note I have put in a cardiology consult. If she is willing to travel, she may be able to see a [facility] antique jewelry repairer sooner then waiting to see one in [place]. Thank you Briana Leggett APRN.CNP [facility] 10-05-2024 Telephone encounter Note Pt called and is notified of providers results and instructions. Pt voices understanding. She states she sees Adoer Miller EXPERT MEDICAL WRITER with [facility]. She states he doesn't listen to her when she talks, and it's hard to get into them. She was asking if there was anyone the provider would recommend she go to. I let her know we have [employer] here, but they are only here on Mondays and it takes a long time to get in. Shawnee Sifuentes RN [facility] 10-05-2024 Telephone encounter Note There was a lot of symptomatic PVCs which are early ventricular contractions. These are not life threatening, but with the symptoms, I want her to follow up with cardiology. I know she has seen one in the past. Who is her antique jewelry repairer and when did she last see them? 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 Thank you. Cady Torres RN [facility] 09-07-2024 Telephone encounter Note Pt returned call and given provider's message below with verbalized understanding. Pt agreeable. [facility] 09-07-2024 Miscellaneous Notes Pt returned call and given provider's message below with verbalized understanding. Pt agreeable. Left message for return call. Blood work and urine so far in acceptable ranges nad without concern. Vitamin d slightly low. Does she take a vitamin d supplement regularly or a multivitamin? If not I recommend taking a multivitamin daily that contains vitamin d. Take care Briana Leggett APRN.CNP documented in this encounter [facility] 09-07-2024 Telephone encounter Note Left message for return call. [facility] 09-07-2024 Telephone encounter Note Blood work and urine so far in acceptable ranges nad without concern. Vitamin d slightly low. Does she take a vitamin d supplement regularly or a multivitamin? If not I recommend taking a multivitamin daily that contains vitamin d. Take care Briana Leggett APRN.CNP [facility] 09-06-2024 Note HNO ID: [id number] Author: RAVEN MINA MA Service: ? Author Type: [employer] [place] Type: Progress Notes Filed: 09/06/2024 12:26 Note Text: EVENT MONITOR DISPOSABLE PATCH INSTRUCTIONS Patient Name: Bria Witt [facility] Number: [id number] Skin prepped and cleansed with alcohol Patch secured to prepped area Monitor Activated Serial #: [id number] Patient Instructed: Prescribed order timeframe Bathing guidelines Usage of event button and diary documentation Return of monitor at the end of prescribed order Call with problems [phone] or [phone]. [phone] Patient expresses a good understanding of instructions Raven Mina MA [facility] 09-06-2024 History of Present illness Narrative EVENT MONITOR DISPOSABLE PATCH INSTRUCTIONS Patient Name: Bria Witt [facility] Number: [id number] Skin prepped and cleansed with alcohol Patch secured to prepped area Monitor Activated Serial #: [id number] Patient Instructed: Prescribed order timeframe Bathing guidelines Usage of event button and diary documentation Return of monitor at the end of prescribed order Call with problems [phone] or [phone]. [phone] Patient expresses a good understanding of instructions Raven Mina MA CC: Patient presents with: Recheck: Follow up fatigue, continuing to get worse HPI Bria Witt is a 39 year old female who presents today for fatigue and almost passed out a week ago. Recording using [employer] software for draft documentation of the visit was discussed with the patient/authorized sales representative public utilities; all questions welcomed and answered. Patient/authorized sales representative public utilities agreed to proceed Fatigue: - Extreme fatigue x3 weeks, with 3-5 hour naps during the day despite sleeping through the night. - No recent illnesses since 3 different back to back respiratory illnesses in May through July. - No new medication changes; taking nadolol PRN for her paroxysmal tachycardia. - Denies snoring or observed apneic episodes during sleep. Near-Syncope: - Near-syncope episode within the last 7 days while bent over petting a cat. Unsure exactly what day - Experienced tunnel vision but was able to walk back to room and drink apple juice, which improved symptoms. - Suspects low blood sugar during the episode; has a history of low blood sugar with similar symptoms but unsure on exact cause Denies other symptoms during episode of chest pain, headaches, confusion, palpitations, dyspnea or other concerns. Paroxysmal Tachycardia: - History of paroxysmal tachycardia, managed with nadolol PRN. - No increase in palpitations or new cardiac symptoms. - No increase in respiratory symptom from asthnma; attributes recent mild symptoms to high pollen levels. - Denies increased coughing, wheezing, or dyspnea. - Occasional constipation, usually not an issue due to regular coffee consumption. - Darker urine noted, attributed to decreased water intake. - Chronic mild swelling in the left ankle, no new edema. . REVIEW OF SYSTEMS See HPI PAST MEDICAL HISTORY Diagnosis Date Abnormal uterine [...] prior urine tox screens negative. 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 Smoker 06/24/2010 Snoring 09/29/2009 Sleep study completed [...] INSERTION OF IUD 04/16/2010 Paragard and removed INSERTION OF IUD 01/13/2024 MIRENA LAPS SURG CHOLECYSTECTOMY W/CHOLANGIOGRAPHY 02/12/2014 normal IOC LARYNGOSCOPY LARYNGOSCOPY LEFT HEART CATH,PERCUTANEOUS 2007 MIRENA 08/02/2016 Placed in office- due for removal 2023 MYRINGOTOMY ASPIR&/EUSTACHIAN TUBE NFLTJ ANES Myringotomy/tubes PAST SURGICAL HISTORY OF Right 02/05/2015 ulnar pinning X2 PAST SURGICAL HISTORY OF Right 09/10/2014 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 - right arm surgery SHOULDER SURGERY HX Left 01/26/2017 [facility] - Left shoulder surgery - repair [...] [Silver Sulfadiazine], and Sulfa (Sulfonamide Antibiotics) MEDICATIONS albuterol HFA (PROVENTIL HFA, VENTOLIN HFA) 90 mcg/actuation inhaler Inhale 2 puffs as instructed every 4 hours as needed. fluticasone (FLOVENT) 220 mcg/actuation inhaler Inhale 1 Puff as instructed two times a day. Shake well before use. Rinse mouth after use. benzonatate (TESSALON PERLE) 100 mg capsule Take 2 capsules by mouth three times a day as needed. nadolol (CORGARD) 20 mg tablet Take 1 tablet by mouth once daily. montelukast (SINGULAIR) 10 mg tablet Take 1 tablet by mouth daily at bedtime. metroNIDAZOLE (METROGEL VAGINAL) 0.75 % (37.5mg/5 gram) Vaginal Gel Use 1 applicator vaginally twice per week. albuterol (PROVENTIL) 2.5 mg /3 mL (0.083 %) nebulizer solution Use 3 mL via nebulizer every 4 hours as needed for wheezing/shortness of breath. Use over 5-15minutes. levonorgestrel (MIRENA) 21 mcg/24 hr (8 yrs) 52 mg IUD 1 Each by INTRAUTERINE route as directed. Nebulizer Accessories misc 1 Each as needed. ibuprofen (MOTRIN) 800 mg tablet Take 1 tablet by mouth every 8 hours as needed for pain. Take with food. omeprazole (PRILOSEC) 20 mg capsule TAKE 1 CAPSULE BY MOUTH 1/2 HOUR before breakfast Nebulizers 1 Each as needed. Nebulizer with accessories/tubing ubidecarenone (H2Q COQ10 ORAL) Take by mouth. 50mg x1 daily oxyCODONE-acetaminophen (PERCOCET) 5-325 mg tablet Take 1-2 tablets by mouth as directed. Every 4-6 hours as needed for pain. nadolol (CORGARD) 20 mg tablet Take 0.5 tablets by mouth twice daily. Lactobacillus acidophilus (FLORAJEN ACIDOPHILUS) 20 billion cell cap Take 460 mg by mouth once daily. clonazePAM (KLONOPIN) 0.5 mg tablet Take 1 tablet by mouth four times daily as needed. EPINEPHrine (EPIPEN) 0.3 mg/0.3 mL auto-injector Use as directed for allergic reaction. Seek emergent medical care immediately after use. nitroglycerin sublingual (NITROQUICK) 0.4 mg SL tablet Dissolve 1 tablet under the tongue every 5 minutes as needed. meclizine (ANTIVERT) 25 mg tab Take 25 mg by mouth twice daily as needed. sertraline (ZOLOFT) 100 mg tablet Take 100 mg by mouth twice daily. FAMILY HISTORY Problem Relation Age [...] Social History Tobacco Use Smoking status: Former Current packs/day: 0.00 Average packs/day: 0.5 packs/day for 20.4 years (10.2 ttl pk-yrs) Types: Cigarettes Start date: 01/24/2000 Quit date: 07/03/2020 Years since quittin.1 Smokeless tobacco: Former Quit date: 08/18/2018 Vaping Use Vaping status: Some Days Start date: 07/03/2020 Substances: Nicotine, Flavoring Devices: Pre-filled or refillable cartridge Substance Use Topics Alcohol use: Not Currently Comment: None since 2011 Drug use: Not Currently Types: Marijuana Comment: Not currrently- hx pot and opoids- none since age 15 PHYSICAL EXAM BP 124/68 Pulse 78 Resp 16 Wt 99.8 kg (220 lb) LMP (LMP Unknown) SpO2 98% BMI 36.61 kg/m General Appearance: tired appearing, in no acute distress, alert Eyes: PERRLA, EOM's intact, conjunctiva pink and moist, no icterus, sclera white, non-injected Neck: Thyroid normal size and symmetric without palpable nodules, Neck supple, No adenopathy Lymph nodes: No cervical lymphadenopathy and No supraclavicular lymphadenopathy Lungs: Lungs clear to auscultation. No wheezing, rhonchi, rales. Heart: RRR without murmur, gallop, or rubs. No ectopy Abdomen: Abdomen soft, non-tender. Bowel sounds normal. No masses, organomegaly Neurological: Gait normal. Reflexes normal and symmetric. Sensation intact., speech normal, mental status intact, muscle tone normal, muscle strength normal Health maintenance reviewed with patient: Depression Screening Never done Hepatitis B Vaccine(2 of 3 - 19+ 3-dose series) due on 08/06/2024 Mammogram Screening due on 09/13/2024 Influenza Vaccine(Season Ended) due on 01/07/2025 Annual PCP Team Chronic Disease Visit due on 09/06/2025 BP Controlled (<130/80) due on 09/06/2025 Cervical Cancer Screening due on 03/12/2027 DTaP,Tdap,Td Vaccine(2 - Td or Tdap) due on 06/13/2028 Hepatitis C Screening Completed HIV Screening Completed Pneumococcal Vaccine Completed Covid-19 Vaccine Discontinued DATA REVIEWED: No new labs Assessment/Plan 1. Pre-syncope (R55) - Recent episode of near syncope within the last 7 days, associated with bending over; symptoms improved after consuming apple juice, suggesting possible hypoglycemia. - Ordered EKG to assess for any cardiac changes. - NSR with sinus arrhythmia - Ordered 2-week Holter monitor to evaluate for arrhythmias; monitor to be placed in the office today. - concern is that she has a history of paroxysmal tachycardia and has not had a recent cardiac workup. Needs examined further for possible cardiac cauase - Scheduled echocardiogram to assess cardiac function. - Advised patient to seek emergency care if further syncope episodes occur. 2. Other fatigue (R53.83) - Severe fatigue over the last 3 weeks, sleeping 3-5 hours during the day in addition to nighttime sleep. - Ordered comprehensive blood work including CBC, B12, thyroid function tests, liver and kidney function tests, and magnesium levels. - Discussed potential for sleep apnea if other causes are ruled out; will consider sleep study if symptoms persist. - Follow-up in 4 weeks to review results; earlier follow-up if any abnormalities are found. 3. Hematuria, unspecified type (R31.9) - History of abnormal urine in July; recent urine described as darker, possibly due to decreased fluid intake. - Ordered urinalysis and urine culture to rule out UTI. 4. Paroxysmal tachycardia (HCC) (I47.9) - History of paroxysmal tachycardia, currently managed with nadolol as needed. - Ordered EKG, 2-week Holter monitor, and echocardiogram to evaluate current cardiac status. Since now with presyncopal episode and extreme fatigue - Advised patient on the importance of regular monitoring and follow-up. 5. Vitamin D deficiency (E55.9) - Patient reports taking emergency supplements containing vitamin D. - Will monitor levels as part of comprehensive blood work. Prescription instructions reviewed with patient as applicable. Potential red flag symptoms discussed with the patient. Reviewed appropriate action plan to take if red flag symptoms occur. Patient agreeable to treatment plan. Briana Leggett APRN.CNP documented in this encounter [facility] 09-06-2024 Instructions Briana Leggett APRN.CNP - 09/06/2024 9:03 AM EDT An EKG was performed today in the office to check your heart rhythm. A heart monitor was placed in the office today--please follow the instructions provided with the monitor. Do not take a shower or engage in heavy sweating for 24 hours after placement. Complete blood work was done today; this includes tests for B12, thyroid function, complete blood counts, liver and kidney function, and magnesium levels. A urine sample was collected and sent for a microscopic evaluation and culture to check for a potential urinary tract issue. An echocardiogram will be scheduled to obtain an ultrasound of your heart. Expect a follow-up appointment in about 4 weeks to review the results from your heart monitor, echocardiogram, blood tests, and urine studies. If you experience any new or worsening symptoms (such as recurrent near-fainting, significant chest pain, or increased shortness of breath), please go directly to the emergency room. documented in this encounter [facility] 09-06-2024 Note HNO ID: [id number] Author: BRIANA LEGGETT APRN.CNP Service: ? Author Type: Nurse Practitioner Type: Progress Notes Filed: 09/06/2024 12:26 Note Text: CC: Patient presents with: Recheck: Follow up fatigue, continuing to get worse HPI Bria Witt is a 39 year old female who presents today for fatigue and almost passed out a week ago. 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 Patient/authorized sales representative public utilities agreed to proceed Fatigue: - Extreme fatigue x3 weeks, with 3-5 hour naps during the day despite sleeping through the night. - No recent illnesses since 3 different back to back respiratory illnesses in May through July. - No new medication changes; taking nadolol PRN for her paroxysmal tachycardia. - Denies snoring or observed apneic episodes during sleep. Near-Syncope: - Near-syncope episode within the last 7 days while bent over petting a cat. Unsure exactly what day - Experienced tunnel vision but was able to walk back to room and drink apple juice, which improved symptoms. - Suspects low blood sugar during the episode; has a history of low blood sugar with similar symptoms but unsure on exact cause Denies other symptoms during episode of chest pain, headaches, confusion, palpitations, dyspnea or other concerns. Paroxysmal Tachycardia: - History of paroxysmal tachycardia, managed with nadolol PRN. - No increase in palpitations or new cardiac symptoms. - No increase in respiratory symptom from asthnma; attributes recent mild symptoms to high pollen levels. - Denies increased coughing, wheezing, or dyspnea. - Occasional constipation, usually not an issue due to regular coffee consumption. - Darker urine noted, attributed to decreased water intake. - Chronic mild swelling in the left ankle, no new edema. . REVIEW OF SYSTEMS See HPI PAST MEDICAL HISTORY Diagnosis Date Abnormal uterine [...] prior urine tox screens negative. 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 Brnad. I AND D VULVA /PERINEAL CYST 10/19/2010 INSERT INTRAUTERINE DEVICE 02/25/2009 mirena INSERTION OF IUD 04/16/2010 Paragard and removed INSERTIO (more content not included)... [facility] 09-06-2024 Note HNO ID: [id number] Author: ZACH PERRY MD Service: ? Author Type: Physician Type: Procedures Filed: 09/27/2024 09:52 Note Text: Patient Name: Bria Witt : 1985 Ordering Provider: BRIANA LEGGETT Indication: R55 Syncope and collapse Type of Monitor: Extended Monitoring-Zio Patch Enrollment Dates: 09/06/2024-09/20/2024 IRHYTHM FINDINGS: Patient had a min HR of 47 bpm, max HR of 167 bpm, and avg HR of 78 bpm. Predominant underlying rhythm was Sinus Rhythm. 2 Supraventricular Tachycardia runs occurred, the run with the fastest interval lasting 5 beats with a max rate of 167 bpm (avg 149 bpm); the run with the fastest interval was also the longest. Supraventricular Tachycardia was detected within +/- 45 seconds of symptomatic patient event(s). Isolated SVEs were rare (<1.0%), SVE Couplets were rare (<1.0%), and SVE Triplets were rare (<1.0%). Isolated VEs were rare (<1.0%), VE Couplets were rare (<1.0%), and no VE Triplets were present. Ventricular Bigeminy and Trigeminy were present. [facility] 09-04-2024 Telephone encounter Note Patient MyChart message requesting the following refill Refill(s) Requested: Requested Prescriptions Pending Prescriptions Disp Refills albuterol HFA (PROVENTIL HFA, VENTOLIN HFA) 90 mcg/actuation inhaler 18 g 3 Sig: Inhale 2 puffs as instructed every 4 hours as needed. ALLERGIES Allergen Reactions Bee Venom Protein (* Anaphylaxis none Iv Dye [Iodine] Anaphylaxis Adenosine Intolerance paralyzed for 8 hours Amoxicillin Trihydr* Vomiting Augmentin [Amoxicil* Vomiting Corticosteroids (Gl* Intolerance Joint swelling Feathers Intolerance Allergic to bird dander Potassium Clavulana* GI Upset Prednisone Swelling Severe joint and spine pain and unable to move- able to have injections of joints, just not spine Silvadene [Silver S* Intolerance Dizziness/nausea Sulfa (Sulfonamide * GI Upset (home) [phone] (cell) Last Office Visit Date: 08/02/2024 Last [facility] Visit: Visit date not found Future Appointment: 11/02/2024 The patients preferred pharmacy has been captured for this encounter? yes Request is for script(s) to be escript to pharmacy. Niko Leigh LPN [facility] 09-04-2024 Miscellaneous Notes Patient MyChart message requesting the following refill Refill(s) Requested: Requested Prescriptions Pending Prescriptions Disp Refills albuterol HFA (PROVENTIL HFA, VENTOLIN HFA) 90 mcg/actuation inhaler 18 g 3 Sig: Inhale 2 puffs as instructed every 4 hours as needed. ALLERGIES Allergen Reactions Bee Venom Protein (* Anaphylaxis none Iv Dye [Iodine] Anaphylaxis Adenosine Intolerance paralyzed for 8 hours Amoxicillin Trihydr* Vomiting Augmentin [Amoxicil* Vomiting Corticosteroids (Gl* Intolerance Joint swelling Feathers Intolerance Allergic to bird dander Potassium Clavulana* GI Upset Prednisone Swelling Severe joint and spine pain and unable to move- able to have injections of joints, just not spine Silvadene [Silver S* Intolerance Dizziness/nausea Sulfa (Sulfonamide * GI Upset (home) [phone] (cell) Last Office Visit Date: 08/02/2024 Last [facility] Visit: Visit date not found Future Appointment: 11/02/2024 The patients preferred pharmacy has been captured for this encounter? yes Request is for script(s) to be escript to pharmacy. Niko Leigh LPN documented in this encounter [facility] 08-02-2024 History of Present illness Narrative CC: Patient presents with: Recheck: 1 week follow up HPI Bria Witt is a 39 year old female who presents today for follow up on respiratory infection with wheezing. Unable to tolerate prednisone, placed on doxycycline. CXR negative for pneumonia. Finishing the doxycyline as ordered and feeling better. Last fever was when last seen. Cough is now producing white to clear sputum with less wheezing. Shortness of breath is mainly with exertion. Fatigue and weakness is getting closer back to baseline. Using albuterol inhaler less. No chest pain, syncope, or chills. 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 Smoker 06/24/2010 Snoring 09/29/2009 Sleep study completed [...] INSERTION OF IUD 04/16/2010 Paragard and removed INSERTION OF IUD 01/13/2024 MIRENA LAPS SURG CHOLECYSTECTOMY W/CHOLANGIOGRAPHY 02/12/2014 normal IOC LARYNGOSCOPY LARYNGOSCOPY LEFT HEART CATH,PERCUTANEOUS 2007 MIRENA 08/02/2016 Placed in office- due for removal 2023 MYRINGOTOMY ASPIR&/EUSTACHIAN TUBE NFLTJ ANES Myringotomy/tubes PAST SURGICAL HISTORY OF Right 02/05/2015 ulnar pinning X2 PAST SURGICAL HISTORY OF Right 09/10/2014 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 - Left shoulder surgery - repair [...] [Silver Sulfadiazine], and Sulfa (Sulfonamide Antibiotics) MEDICATIONS doxycycline (VIBRA-TABS) 100 mg tablet Take 1 tablet by mouth two times a day for 10 days. benzonatate (TESSALON PERLE) 100 mg capsule Take 2 capsules by mouth three times a day as needed. albuterol HFA (PROVENTIL HFA, VENTOLIN HFA) 90 mcg/actuation inhaler Inhale 2 Puffs as instructed every 4 hours as needed. nadolol (CORGARD) 20 mg tablet Take 1 tablet by mouth once daily. montelukast (SINGULAIR) 10 mg tablet Take 1 tablet by mouth daily at bedtime. metroNIDAZOLE (METROGEL VAGINAL) 0.75 % (37.5mg/5 gram) Vaginal Gel Use 1 applicator vaginally twice per week. albuterol (PROVENTIL) 2.5 mg /3 mL (0.083 %) nebulizer solution Use 3 mL via nebulizer every 4 hours as needed for wheezing/shortness of breath. Use over 5-15minutes. fluticasone (FLOVENT) 220 mcg/actuation inhaler Inhale 1 Puff as instructed two times a day. Shake well before use. Rinse mouth after use. levonorgestrel (MIRENA) 21 mcg/24 hr (8 yrs) 52 mg IUD 1 Each by INTRAUTERINE route as directed. Nebulizer Accessories misc 1 Each as needed. ibuprofen (MOTRIN) 800 mg tablet Take 1 tablet by mouth every 8 hours as needed for pain. Take with food. omeprazole (PRILOSEC) 20 mg capsule TAKE 1 CAPSULE BY MOUTH 1/2 HOUR before breakfast Nebulizers 1 Each as needed. Nebulizer with accessories/tubing ubidecarenone (H2Q COQ10 ORAL) Take by mouth. 50mg x1 daily oxyCODONE-acetaminophen (PERCOCET) 5-325 mg tablet Take 1-2 tablets by mouth as directed. Every 4-6 hours as needed for pain. nadolol (CORGARD) 20 mg tablet Take 0.5 tablets by mouth twice daily. Lactobacillus acidophilus (FLORAJEN ACIDOPHILUS) 20 billion cell cap Take 460 mg by mouth once daily. clonazePAM (KLONOPIN) 0.5 mg tablet Take 1 tablet by mouth four times daily as needed. EPINEPHrine (EPIPEN) 0.3 mg/0.3 mL auto-injector Use as directed for allergic reaction. Seek emergent medical care immediately after use. nitroglycerin sublingual (NITROQUICK) 0.4 mg SL tablet Dissolve 1 tablet under the tongue every 5 minutes as needed. meclizine (ANTIVERT) 25 mg tab Take 25 mg by mouth twice daily as needed. sertraline (ZOLOFT) 100 mg tablet Take 100 mg by mouth twice daily. FAMILY HISTORY Problem Relation Age [...] Social History Tobacco Use Smoking status: Former Current packs/day: 0.00 Average packs/day: 0.5 packs/day for 20.4 years (10.2 ttl pk-yrs) Types: Cigarettes Start date: 01/24/2000 Quit date: 07/03/2020 Years since quittin.0 Smokeless tobacco: Former Quit date: 08/18/2018 Vaping Use Vaping status: Some Days Start date: 07/03/2020 Substances: Nicotine, Flavoring Devices: Pre-filled or refillable cartridge Substance Use Topics Alcohol use: Not Currently Comment: None since 2011 Drug use: Not Currently Types: Marijuana Comment: Not currrently- hx pot and opoids- none since age 15 PHYSICAL EXAM BP 108/64 Pulse 76 Temp 36.7 C (98 F) (Temporal) Resp 16 Wt 99.3 kg (219 lb) LMP (LMP Unknown) SpO2 97% BMI 36.44 kg/m General Appearance: well appearing, in no acute distress, alert Eyes: conjunctiva pink and moist, no icterus, sclera white, non-injected Lungs: Lungs clear to auscultation. No wheezing, rhonchi, rales. Heart: RRR without murmur, gallop, or rubs. No ectopy Health maintenance reviewed with patient: Depression Screening Never done Hepatitis B Vaccine(2 of 3 - 19+ 3-dose series) due on 08/06/2024 Mammogram Screening due on 09/13/2024 Influenza Vaccine(1) due on 11/05/2024 BP Controlled (<130/80) due on 07/23/2025 Annual PCP Team Chronic Disease Visit due on 08/02/2025 Cervical Cancer Screening due on 03/12/2027 DTaP,Tdap,Td Vaccine(2 - Td or Tdap) due on 06/13/2028 Spirometry Completed Hepatitis C Screening Completed HIV Screening Completed Pneumococcal Vaccine Completed Covid-19 Vaccine Discontinued DATA REVIEWED: Most recent labs and imaging results. ASSESSMENT/PLAN: 1. Moderate persistent asthma, uncomplicated - ICD9: 493.90, ICD10: J45.40 (primary diagnosis) - Mild persistent asthma stable - Continue current medications - Avoidance of triggers recommended Exacerbation resolved 2. Wheezing - ICD9: 786.07, ICD10: R06.2 Back to baseline 3. Shortness of breath - ICD9: 786.05, ICD10: R06.02 Improving Follow up for any further concerns Prescription instructions reviewed with patient as applicable. Potential red flag symptoms discussed with the patient. Reviewed appropriate action plan to take if red flag symptoms occur. Patient agreeable to treatment plan. Briana Leggett APRN.CNP documented in this encounter [facility] 08-02-2024 Note HNO ID: [id number] Author: BRIANA LEGGETT APRN.CNP Service: ? Author Type: Nurse Practitioner Type: Progress Notes Filed: 08/02/2024 15:24 Note Text: CC: Patient presents with: Recheck: 1 week follow up HPI Bria Witt is a 39 year old female who presents today for follow up on respiratory infection with wheezing. Unable to tolerate prednisone, placed on doxycycline. CXR negative for pneumonia. Finishing the doxycyline as ordered and feeling better. Last fever was when last seen. Cough is now producing white to clear sputum with less wheezing. Shortness of breath is mainly with exertion. Fatigue and weakness is getting closer back to baseline. Using albuterol inhaler less. No chest pain, syncope, or chills. 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 - right arm surgery SHOULDER SURGERY HX Left 01/26/2017 [facility] - Left shoulder surgery - repair [...] Clavulanate, Prednisone, Silvadene [Silver Sulfadiazine], and Sulfa (Gao (more content not included)... [facility] 07-23-2024 History of Present illness Narrative Radiology Service Progress Note PATIENT NAME: Bria Witt DATE OF SERVICE: July 23, 2024 TIME: 11:23 AM PATIENT IDENTITY VERIFICATION COMPLETED USING TWO (2) IDENTIFIERS: Name and Date of confirmed by patient verbally. FALL SCREENING: Has the patient had 2 falls in the last year or 1 fall with injury or currently using an Ambulatory Assistive Device (Walker, Cane, Wheelchair, Crutches, etc.)? No PATIENT GENDER DATA: Assigned female at . status: : No status: NO. PATIENT RELEVANT IMPLANT DATA REVIEWED: Yes PATIENT PRESENTS WITH AN IMPLANTABLE OR ATTACHED SECTION LABORER: No RADIOLOGY DEPARTMENT: General X-ray: Exam(s) Completed: Chest X-Ray PERIPHERAL IV DATA: Not applicable SIGNED BY: JENNIFER Hung) July 23, 2024 11:23 AM documented in this encounter [facility] 07-23-2024 Note HNO ID: [id number] Author: LIMA NICHOLAS RT(R) Service: ? Author Type: Generator Man Type: Progress Notes Filed: 07/23/2024 11:31 Note Text: Radiology Service Progress Note PATIENT NAME: Bria Witt DATE OF SERVICE: July 23, 2024 TIME: 11:23 AM PATIENT IDENTITY VERIFICATION COMPLETED USING TWO (2) IDENTIFIERS: Name and Date of confirmed by patient verbally. FALL SCREENING: Has the patient had 2 falls in the last year or 1 fall with injury or currently using an Ambulatory Assistive Device (Walker, Cane, Wheelchair, Crutches, etc.)? No PATIENT GENDER DATA: Assigned female at . status: : No status: NO. PATIENT RELEVANT IMPLANT DATA REVIEWED: Yes PATIENT PRESENTS WITH AN IMPLANTABLE OR ATTACHED SECTION LABORER: No RADIOLOGY DEPARTMENT: General X-ray: Exam(s) Completed: Chest X-Ray PERIPHERAL IV DATA: Not applicable SIGNED BY: JENNIFER Hung) July 23, 2024 11:23 AM [facility] 07-23-2024 Note HNO ID: [id number] Author: BRIANA LEGGETT APRN.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 Service: ? Author Type: Nurse Practitioner Type: Progress Notes Filed: 07/23/2024 13:05 Note Text: CC: Patient presents with: Recheck: Follow up, Flu A on 07/15 cough HPI Bria Witt is a 39 year old female who presents today for continued respiratory illness. Started 1.5-2 weeks ago with scratchy throat then had bady aches and fever. Went to express care on 07/15 and positive for Flu A and past timeline for tamiflu. Has not felt any improvement. Currently with non-productive rattly cough, wheezing, shortness of breath, dizziness, exhaustion, O2 sat in the mid 90s, generalized weakness, decreased appetite, nausea, diarrhea, pain/difficulty urinating, stress incontinence, and sinus congestion. Last month was positive for COVID and had a GI bug. Has been using her albuterol inhaler more often over the last few weeks as well. Does not tolerate prednisone and avoids unless absolutely necessary. Denies syncope, current fever, chills, ear pain, vomiting, chest pain, edema, or new palpitations. Taking tylenol mucinex and ibuprofen over the counter. 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 - right arm surgery SHOULDER SURGERY HX Left 01/26/2017 [facility] - Left shoulder surgery - repair of slap tear and arthroscopy SURGICAL EXTRACTION ERUPTED TOOTH 03/03/2009 had all top teeth removed TONSILLECTOMY PRIMARY/SECONDARY Tonsillectomy TUBAL LIGATION,POSTPA (more content not included)... [facility] 07-23-2024 History of Present illness Narrative CC: Patient presents with: Recheck: Follow up, Flu A on 3/9 cough HPI Bria Witt is a 39 year old female who presents today for continued respiratory illness. Started 1.5-2 weeks ago with scratchy throat then had bady aches and fever. Went to express care on 07/15 and positive for Flu A and past timeline for tamiflu. Has not felt any improvement. Currently with non-productive rattly cough, wheezing, shortness of breath, dizziness, exhaustion, O2 sat in the mid 90s, generalized weakness, decreased appetite, nausea, diarrhea, pain/difficulty urinating, stress incontinence, and sinus congestion. Last month was positive for COVID and had a GI bug. Has been using her albuterol inhaler more often over the last few weeks as well. Does not tolerate prednisone and avoids unless absolutely necessary. Denies syncope, current fever, chills, ear pain, vomiting, chest pain, edema, or new palpitations. Taking tylenol mucinex and ibuprofen over the counter. 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 - right arm surgery SHOULDER SURGERY HX Left 01/26/2017 [facility] - Left shoulder surgery - repair [...] [Silver Sulfadiazine], and Sulfa (Sulfonamide Antibiotics) MEDICATIONS albuterol HFA (PROVENTIL HFA, VENTOLIN HFA) 90 mcg/actuation inhaler Inhale 2 Puffs as instructed every 4 hours as needed. nadolol (CORGARD) 20 mg tablet Take 1 tablet by mouth once daily. montelukast (SINGULAIR) 10 mg tablet Take 1 tablet by mouth daily at bedtime. Selenium Sulfide 2.25 % sham Apply to affected area once daily. metroNIDAZOLE (METROGEL VAGINAL) 0.75 % (37.5mg/5 gram) Vaginal Gel Use 1 applicator vaginally twice per week. albuterol (PROVENTIL) 2.5 mg /3 mL (0.083 %) nebulizer solution Use 3 mL via nebulizer every 4 hours as needed for wheezing/shortness of breath. Use over 5-15minutes. fluticasone (FLOVENT) 220 mcg/actuation inhaler Inhale 1 Puff as instructed two times a day. Shake well before use. Rinse mouth after use. levonorgestrel (MIRENA) 21 mcg/24 hr (8 yrs) 52 mg IUD 1 Each by INTRAUTERINE route as directed. Nebulizer Accessories misc 1 Each as needed. ibuprofen (MOTRIN) 800 mg tablet Take 1 tablet by mouth every 8 hours as needed for pain. Take with food. omeprazole (PRILOSEC) 20 mg capsule TAKE 1 CAPSULE BY MOUTH 1/2 HOUR before breakfast Nebulizers 1 Each as needed. Nebulizer with accessories/tubing ubidecarenone (H2Q COQ10 ORAL) Take by mouth. 50mg x1 daily oxyCODONE-acetaminophen (PERCOCET) 5-325 mg tablet Take 1-2 tablets by mouth as directed. Every 4-6 hours as needed for pain. nadolol (CORGARD) 20 mg tablet Take 0.5 tablets by mouth twice daily. Lactobacillus acidophilus (FLORAJEN ACIDOPHILUS) 20 billion cell cap Take 460 mg by mouth once daily. clonazePAM (KLONOPIN) 0.5 mg tablet Take 1 tablet by mouth four times daily as needed. EPINEPHrine (EPIPEN) 0.3 mg/0.3 mL auto-injector Use as directed for allergic reaction. Seek emergent medical care immediately after use. nitroglycerin sublingual (NITROQUICK) 0.4 mg SL tablet Dissolve 1 tablet under the tongue every 5 minutes as needed. meclizine (ANTIVERT) 25 mg tab Take 25 mg by mouth twice daily as needed. sertraline (ZOLOFT) 100 mg tablet Take 100 mg by mouth twice daily. FAMILY HISTORY Problem Relation Age [...] Social History Tobacco Use Smoking status: Former Current packs/day: 0.00 Average packs/day: 0.5 packs/day for 20.4 years (10.2 ttl pk-yrs) Types: Cigarettes Start date: 01/24/2000 Quit date: 07/03/2020 Years since quittin.0 Smokeless tobacco: Former Quit date: 08/18/2018 Vaping Use Vaping status: Some Days Start date: 07/03/2020 Substances: Nicotine, Flavoring Devices: Pre-filled or refillable cartridge Substance Use Topics Alcohol use: Not Currently Comment: None since 2011 Drug use: Not Currently Types: Marijuana Comment: Not currrently- hx pot and opoids- none since age 15 PHYSICAL EXAM BP 117/78 Pulse 68 Temp 37.3 C (99.2 F) (Oral) Resp 16 Wt 98.9 kg (218 lb) LMP (LMP Unknown) SpO2 98% BMI 36.28 kg/m General Appearance: well appearing, in no acute distress, alert Eyes: conjunctiva pink and moist, no icterus, sclera white, non-injected Lungs: Lungs with inspiratory and expiratory wheezes throughout posteriorly. No rhonchi, rales. Heart: RRR without murmur, gallop, or rubs. No ectopy Abdomen: Abdomen soft, non-tender. Bowel sounds normal. No masses, organomegaly Health maintenance reviewed with patient: Depression Screening Never done Influenza Vaccine(1) due on 01/08/2024 Hepatitis B Vaccine(2 of 3 - 19+ 3-dose series) due on 08/06/2024 Mammogram Screening due on 09/13/2024 Annual PCP Team Chronic Disease Visit due on 05/08/2025 BP Controlled (<130/80) due on 07/15/2025 Cervical Cancer Screening due on 03/12/2027 DTaP,Tdap,Td Vaccine(2 - Td or Tdap) due on 06/13/2028 Spirometry Completed Hepatitis C Screening Completed HIV Screening Completed Pneumococcal Vaccine Completed Covid-19 Vaccine Discontinued DATA REVIEWED: No new labs ASSESSMENT/PLAN: 1. Wheezing - ICD9: 786.07, ICD10: R06.2 (primary diagnosis) Dicyclomine as ordered. No prednisone at this time but may need it if no improvement. Go to ER for any worsening symptoms. Follow up in 1 week. - XR CHEST 2V FRONTAL/LAT 2. Shortness of breath - ICD9: 786.05, ICD10: R06.02 As above - XR CHEST 2V FRONTAL/LAT 3. Acute cough - ICD9: 786.2, ICD10: R05.1 See #1 Tessalon as ordered - XR CHEST 2V FRONTAL/LAT 4. Dysuria - ICD9: 788.1, ICD10: R30.0 With the symptoms and leuks in urine will send for culture - UA DIP, URINE (POC) - URINALYSIS, WITH MICROSCOPIC - BACTERIAL CULTURE, URINE 5. Leukocytes in urine - ICD9: 791.7, ICD10: R82.998 As above 6. Proteinuria, unspecified type - ICD9: 791.0, ICD10: R80.9 Trace protein in dip. Will send for microanalysis to verify and further analyze this. - URINALYSIS, WITH MICROSCOPIC - BACTERIAL CULTURE, URINE Prescription instructions reviewed with patient as applicable. Potential red flag symptoms discussed with the patient. Reviewed appropriate action plan to take if red flag symptoms occur. Patient agreeable to treatment plan. Briana Leggett APRN.VELVET documented in this encounter [facility] 07-23-2024 Telephone encounter Note Pt reports she tested positive for flu A on 07/15/24. No fever for the last 4 days. Today pt has cough, productive in the morning, as the day goes on cough is dry, increased SOB, and a rattle in chest- no wheeze. Using her inhaler more than she should. Has decreased appetite and feeling tired. Muscles are sore from coughing. Pt has concern for pneumonia since had pneumonia on Mar 15 as well as covid. States her s/s feel the same as when she had pneumonia then. 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 States she will wear a mask. [facility] 07-23-2024 Miscellaneous Notes Pt reports she tested positive for flu A on 07/15/24. No fever for the last 4 days. Today pt has cough, productive in the morning, as the day goes on cough is dry, increased SOB, and a rattle in chest- no wheeze. Using her inhaler more than she should. Has decreased appetite and feeling tired. Muscles are sore from coughing. Pt has concern for pneumonia since had pneumonia on Mar 15 as well as covid. States her s/s feel the same as when she had pneumonia then. 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 States she will wear a mask. documented in this encounter [facility] 07-15-2024 Note SARS-COV-2 (AGENT OF COVID-19) RNA: Not detected INFLUENZA A RNA: Detected INFLUENZA B RNA: Not detected RESPIRATORY SYNCYTIAL VIRUS (RSV) RNA: Not detected [facility] Comment on above: Performed By: #### [id number] ####[facility] LABCLIA [id number] [address] OF [facility] 07-15-2024 Note HNO ID: [id number] Author: KOLE CAMERON PA Service: ? Author Type: Physician Top Spotter Type: Progress Notes Filed: 07/15/2024 14:29 Note Text: [facility] Subjective Bria Witt is a 39 year old female. Patient presents with: Cough: congestion, fever, bodyaches, chills and fatigue x 2 days HPI 39-year-old female presents for cough, congestion, fever, body aches, chills, fatigue x 3 days. Patient states starting cough about 3 days ago. Started getting fever last night around 101 ?F. She states she has a dry cough, postnasal drainage, nasal congestion. She denies any chest pain or shortness of breath. Has been taking Tylenol and Motrin for the fevers, Vicks vapor rub and Mucinex without much improvement. 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 - right arm surgery SHOULDER SURGERY HX Left 01/26/2017 [facility] - Left shoulder surgery - repair [...] Prednisone, Silvadene [Silver Sulfadiazine], and Sulfa (Sulfonamide Antibiot (more content not included)... [facility] 07-15-2024 History of Present illness Narrative [facility] Subjective Bria Witt is a 39 year old female. Patient presents with: Cough: congestion, fever, bodyaches, chills and fatigue x 2 days HPI 39-year-old female presents for cough, congestion, fever, body aches, chills, fatigue x 3 days. Patient states starting cough about 3 days ago. Started getting fever last night around 101 F. She states she has a dry cough, postnasal drainage, nasal congestion. She denies any chest pain or shortness of breath. Has been taking Tylenol and Motrin for the fevers, Vicks vapor rub and Mucinex without much improvement. 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 Smoker 06/24/2010 Snoring 09/29/2009 Sleep study completed [...] INSERTION OF IUD 04/16/2010 Paragard and removed INSERTION OF IUD 01/13/2024 MIRENA LAPS SURG CHOLECYSTECTOMY W/CHOLANGIOGRAPHY 02/12/2014 normal IOC LARYNGOSCOPY LARYNGOSCOPY LEFT HEART CATH,PERCUTANEOUS 2007 MIRENA 08/02/2016 Placed in office- due for removal 2023 MYRINGOTOMY ASPIR&/EUSTACHIAN TUBE NFLTJ ANES Myringotomy/tubes PAST SURGICAL HISTORY OF Right 02/05/2015 ulnar pinning X2 PAST SURGICAL HISTORY OF Right 09/10/2014 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 - Left shoulder surgery - repair [...] [Silver Sulfadiazine], and Sulfa (Sulfonamide Antibiotics) MEDICATIONS albuterol HFA (PROVENTIL HFA, VENTOLIN HFA) 90 mcg/actuation inhaler Inhale 2 Puffs as instructed every 4 hours as needed. nadolol (CORGARD) 20 mg tablet Take 1 tablet by mouth once daily. montelukast (SINGULAIR) 10 mg tablet Take 1 tablet by mouth daily at bedtime. Selenium Sulfide 2.25 % sham Apply to affected area once daily. metroNIDAZOLE (METROGEL VAGINAL) 0.75 % (37.5mg/5 gram) Vaginal Gel Use 1 applicator vaginally twice per week. albuterol (PROVENTIL) 2.5 mg /3 mL (0.083 %) nebulizer solution Use 3 mL via nebulizer every 4 hours as needed for wheezing/shortness of breath. Use over 5-15minutes. fluticasone (FLOVENT) 220 mcg/actuation inhaler Inhale 1 Puff as instructed two times a day. Shake well before use. Rinse mouth after use. levonorgestrel (MIRENA) 21 mcg/24 hr (8 yrs) 52 mg IUD 1 Each by INTRAUTERINE route as directed. Nebulizer Accessories misc 1 Each as needed. ibuprofen (MOTRIN) 800 mg tablet Take 1 tablet by mouth every 8 hours as needed for pain. Take with food. omeprazole (PRILOSEC) 20 mg capsule TAKE 1 CAPSULE BY MOUTH 1/2 HOUR before breakfast Nebulizers 1 Each as needed. Nebulizer with accessories/tubing ubidecarenone (H2Q COQ10 ORAL) Take by mouth. 50mg x1 daily oxyCODONE-acetaminophen (PERCOCET) 5-325 mg tablet Take 1-2 tablets by mouth as directed. Every 4-6 hours as needed for pain. nadolol (CORGARD) 20 mg tablet Take 0.5 tablets by mouth twice daily. Lactobacillus acidophilus (FLORAJEN ACIDOPHILUS) 20 billion cell cap Take 460 mg by mouth once daily. clonazePAM (KLONOPIN) 0.5 mg tablet Take 1 tablet by mouth four times daily as needed. EPINEPHrine (EPIPEN) 0.3 mg/0.3 mL auto-injector Use as directed for allergic reaction. Seek emergent medical care immediately after use. nitroglycerin sublingual (NITROQUICK) 0.4 mg SL tablet Dissolve 1 tablet under the tongue every 5 minutes as needed. meclizine (ANTIVERT) 25 mg tab Take 25 mg by mouth twice daily as needed. sertraline (ZOLOFT) 100 mg tablet Take 100 mg by mouth twice daily. FAMILY HISTORY Problem Relation Age [...] Social History Tobacco Use Smoking status: Former Current packs/day: 0.00 Average packs/day: 0.5 packs/day for 20.4 years (10.2 ttl pk-yrs) Types: Cigarettes Start date: 01/24/2000 Quit date: 07/03/2020 Years since quittin.0 Smokeless tobacco: Former Quit date: 08/18/2018 Vaping Use Vaping status: Some Days Start date: 07/03/2020 Substances: Nicotine, Flavoring Devices: Pre-filled or refillable cartridge Substance Use Topics Alcohol use: Not Currently Comment: None since 2011 Drug use: Not Currently Types: Marijuana Comment: Not currrently- hx pot and opoids- none since age 15 Review of Systems Constitutional: Positive for chills and fever. HENT: Positive for congestion and postnasal drip. Negative for ear pain and sore throat. Respiratory: Positive for cough. Negative for shortness of breath. Cardiovascular: Negative for chest pain. Gastrointestinal: Negative for diarrhea and vomiting. Musculoskeletal: Positive for myalgias. Objective BP 120/72 Pulse 108 Temp 37.9 C (100.2 F) Resp 18 Wt 101.7 kg (224 lb 3.3 oz) LMP (LMP Unknown) SpO2 97% BMI 37.31 kg/m Physical Exam Vitals and nursing note reviewed. Constitutional: General: She is not in acute distress. Appearance: Normal appearance. She is not toxic-appearing. HENT: Right Ear: Tympanic membrane and ear canal normal. Left Ear: Tympanic membrane and ear canal normal. Nose: Congestion present. Mouth/Throat: Mouth: Mucous membranes are moist. Pharynx: Oropharynx is clear. Eyes: Conjunctiva/sclera: Conjunctivae normal. Cardiovascular: Rate and Rhythm: Normal rate and regular rhythm. Pulmonary: Effort: Pulmonary effort is normal. Breath sounds: Normal breath sounds. No wheezing, rhonchi or rales. Skin: General: Skin is warm and dry. Neurological: Mental Status: She is alert. ASSESSMENT/PLAN: 1. URI, acute - ICD9: 465.9, ICD10: J06.9 - Discussed viral etiology and rationale for treatment. - Symptomatic treatment with prn analgesia - Supportive care with fluids and rest - COVID & INFLUENZA A/B & RSV PCR, ROUTINE -Out of window for Tamiflu Diagnosis and treatment plan were discussed and questions were answered to the patient's satisfaction. Pt acknowledged understanding of concepts and follow up plan. Specific signs and symptoms that would indicate the need for higher level of care were discussed in detail warranting prompt ER evaluation. HOLLI Solorzano History and Record Review Systemic symptoms present included: Fever, chills Differential Diagnoses - Viral URI is more likely for the following reason(s): suggested by H&P - Pneumonia is less likely for the following reason(s): H&P not suggestive Disposition The patient was discharged. OTC Medications were advised: Tylenol/Motrin Procedures documented in this encounter [facility] 07-15-2024 Instructions Kole Cameron PA - 07/15/2024 2:25 PM EDT Cough You have been seen for your cough. There are many possible causes of cough. Most are not dangerous. Your doctor has determined that it is OK for you to go home today. Antibiotics are not necessary for your cough at this time. If your cough was caused by a virus, asthma, or lung irritation, then antibiotics will not help. The doctor may have prescribed some medicine to help with your cough. Use the medicine as directed. YOU SHOULD SEEK MEDICAL ATTENTION IMMEDIATELY, EITHER HERE OR AT THE NEAREST EMERGENCY DEPARTMENT, IF ANY OF THE FOLLOWING OCCURS: You wheeze or have trouble breathing. You cough up mucous or lose weight for no reason. You have a fever (temperature higher than 100.4 F / 38 C) that lasts more than 5 days. You have chest pain. Your symptoms get worse or do not get better in 2 or 3 days. You have any new problems or concerns. documented in this encounter [facility] 07-09-2024 Note HNO ID: [id number] Author: ?, ?, ? Service: ? Author Type: LICENSED NURSE Type: Progress Notes Filed: 07/09/2024 08:15 Note Text: Patient presents for Pneumococcal and Hepatitis B vaccines. Denies any problems at this time. Tolerated injections well. Anna Leonard LPN [facility] 07-09-2024 History of Present illness Narrative Patient presents for Pneumococcal and Hepatitis B vaccines. Denies any problems at this time. Tolerated injections well. Anna Leonard LPN documented in this encounter [facility] 2024 Telephone encounter Note Patient scheduled for nurse visit 07/09/24 to receive Hepatitis B and Pneumococcal vaccines. Please place order at this time. Anna Leonard LPN [facility] 2024 Miscellaneous Notes Patient scheduled for nurse visit 07/09/24 to receive Hepatitis B and Pneumococcal vaccines. Please place order at this time. Anna Leonard LPN documented in this encounter [facility] 07-01-2024 Note SARS-COV-2 (AGENT OF COVID-19) RNA: Not detected INFLUENZA A RNA: Not detected INFLUENZA B RNA: Not detected RESPIRATORY SYNCYTIAL VIRUS (RSV) RNA: Not detected [facility] Comment on above: Performed By: #### [id number] ####[facility] LABCLIA [id number] [address] [place] 07-01-2024 Note HNO ID: [id number] Author: MALKA MOULTON APRN.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 Service: ? Author Type: Nurse Practitioner Type: Progress Notes Filed: 07/01/2024 11:01 Note Text: This note was created using [employer]. Samantha Witt is a 38 year old female. HPI For the last 7 days patient complains of sinus congestion and bilateral ear pain and congestion. She also notes a mild cough. Denies any fever or sore throat. Review of Systems As above Objective BP 120/64 Pulse 90 Temp 36.8 ?C (98.2 ?F) Resp 20 Wt 102.2 kg (225 lb 5 oz) LMP (LMP Unknown) SpO2 99% BMI 37.49 kg/m? Physical Exam Vitals and nursing note reviewed. Constitutional: General: She is not in acute distress. Appearance: Normal appearance. She is not ill-appearing. HENT: Head: Normocephalic. Right Ear: Tympanic membrane and ear canal normal. Left Ear: Tympanic membrane and ear canal normal. Mouth/Throat: Mouth: Mucous membranes are moist. Pharynx: No posterior oropharyngeal erythema. Eyes: Conjunctiva/sclera: Conjunctivae normal. Cardiovascular: Rate and Rhythm: Normal rate and regular rhythm. Pulmonary: Effort: Pulmonary effort is normal. Breath sounds: Normal breath sounds. Musculoskeletal: General: Normal range of motion. Cervical back: Normal range of motion. Skin: General: Skin is warm and dry. Neurological: General: No focal deficit present. Mental Status: She is alert. Psychiatric: Mood and Affect: Mood normal. Behavior: Behavior normal. Assessment and Plan ASSESSMENT/PLAN: 1. Nasal congestion - ICD9: 478.19, ICD10: R09.81 No sign of otitis media noted. Due to patient's complicated medical history and medication list she will only be able to use Flonase for probable mild eustachian tube dysfunction. She was tested for influenza and COVID as she is currently visiting a grandchild at [facility] but due to length of symptoms there is no specific treatment indicated. She will follow-up with PCP if symptoms not improving. - COVID AND INFLUENZA A/B AND RSV PCR, ROUTINE Malka Moulton APRN.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 [facility] 07-01-2024 History of Present illness Narrative This note was created using [employer]. Samantha Witt is a 38 year old female. HPI For the last 7 days patient complains of sinus congestion and bilateral ear pain and congestion. She also notes a mild cough. Denies any fever or sore throat. Review of Systems As above Objective BP 120/64 Pulse 90 Temp 36.8 C (98.2 F) Resp 20 Wt 102.2 kg (225 lb 5 oz) LMP (LMP Unknown) SpO2 99% BMI 37.49 kg/m Physical Exam Vitals and nursing note reviewed. Constitutional: General: She is not in acute distress. Appearance: Normal appearance. She is not ill-appearing. HENT: Head: Normocephalic. Right Ear: Tympanic membrane and ear canal normal. Left Ear: Tympanic membrane and ear canal normal. Mouth/Throat: Mouth: Mucous membranes are moist. Pharynx: No posterior oropharyngeal erythema. Eyes: Conjunctiva/sclera: Conjunctivae normal. Cardiovascular: Rate and Rhythm: Normal rate and regular rhythm. Pulmonary: Effort: Pulmonary effort is normal. Breath sounds: Normal breath sounds. Musculoskeletal: General: Normal range of motion. Cervical back: Normal range of motion. Skin: General: Skin is warm and dry. Neurological: General: No focal deficit present. Mental Status: She is alert. Psychiatric: Mood and Affect: Mood normal. Behavior: Behavior normal. Assessment and Plan ASSESSMENT/PLAN: 1. Nasal congestion - ICD9: 478.19, ICD10: R09.81 No sign of otitis media noted. Due to patient's complicated medical history and medication list she will only be able to use Flonase for probable mild eustachian tube dysfunction. She was tested for influenza and COVID as she is currently visiting a grandchild at [facility] but due to length of symptoms there is no specific treatment indicated. She will follow-up with PCP if symptoms not improving. - COVID & INFLUENZA A/B & RSV PCR, ROUTINE Malka Moulton APRN.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 documented in this encounter [facility] 05-23-2024 Telephone encounter Note Pt returned call and given provider's message below with verbalized understanding. Pt agreeable. [facility] 05-23-2024 Miscellaneous Notes Pt returned call and given provider's message below with verbalized understanding. Pt agreeable. Telephone call placed to patient. Message left to call office back for update. Kailey Barr LPN Please let patient know that her CXR is clearing. Follow up if symptoms not resolved or any returning or worsening symptoms. Surya Bishop PA-C 05/23/2024 documented in this encounter [facility] 05-23-2024 Telephone encounter Note Telephone call placed to patient. Message left to call office back for update. Kailey Barr LPN [facility] 05-23-2024 Telephone encounter Note Please let patient know that her CXR is clearing. Follow up if symptoms not resolved or any returning or worsening symptoms. Surya Bishop PA-C 05/23/2024 [facility] 05-11-2024 Telephone encounter Note Patient [employer] message requesting the following refill Refill(s) Requested: Requested Prescriptions Pending Prescriptions Disp Refills albuterol HFA (PROVENTIL HFA, VENTOLIN HFA) 90 mcg/actuation inhaler 18 g 3 Sig: Inhale 2 Puffs as instructed every 4 hours as needed. ALLERGIES Allergen Reactions Bee Venom Protein (* Anaphylaxis none Iv Dye [Iodine] Anaphylaxis Adenosine Intolerance paralyzed for 8 hours Amoxicillin Trihydr* Vomiting Augmentin [Amoxicil* Vomiting Corticosteroids (Gl* Intolerance Joint swelling Feathers Intolerance Allergic to bird dander Potassium Clavulana* GI Upset Prednisone Swelling Severe joint and spine pain and unable to move- able to have injections of joints, just not spine Silvadene [Silver S* Intolerance Dizziness/nausea Sulfa (Sulfonamide * GI Upset (home) [phone] (cell) Last Office Visit Date: 02/06/2024 Last Distance Health Visit: Visit date not found Future Appointment: Visit date not found The patients preferred pharmacy has been captured for this encounter? yes Request is for script(s) to be escript to pharmacy. Niko Leigh LPN [facility] 05-11-2024 Miscellaneous Notes Patient [employer]t message requesting the following refill Refill(s) Requested: Requested Prescriptions Pending Prescriptions Disp Refills albuterol HFA (PROVENTIL HFA, VENTOLIN HFA) 90 mcg/actuation inhaler 18 g 3 Sig: Inhale 2 Puffs as instructed every 4 hours as needed. ALLERGIES Allergen Reactions Bee Venom Protein (* Anaphylaxis none Iv Dye [Iodine] Anaphylaxis Adenosine Intolerance paralyzed for 8 hours Amoxicillin Trihydr* Vomiting Augmentin [Amoxicil* Vomiting Corticosteroids (Gl* Intolerance Joint swelling Feathers Intolerance Allergic to bird dander Potassium Clavulana* GI Upset Prednisone Swelling Severe joint and spine pain and unable to move- able to have injections of joints, just not spine Silvadene [Silver S* Intolerance Dizziness/nausea Sulfa (Sulfonamide * GI Upset (home) [phone] (cell) Last Office Visit Date: 02/06/2024 Last Distance Health Visit: Visit date not found Future Appointment: Visit date not found The patients preferred pharmacy has been captured for this encounter? yes Request is for script(s) to be escript to pharmacy. Niko Leigh LPN documented in this encounter [facility] 05-08-2024 Note HNO ID: [id number] Author: SURYA BISHOP PA-C Service: ? Author Type: Physician Top Spotter Type: Progress Notes Filed: 05/08/2024 09:54 Note Text: 05/08/2024 Patient presents with: Follow Up: 3 month follow up SUBJECTIVE: This is a 38 year old that is here today for follow up asthma and palpitations. Patient was diagnosed with COVID and pneumonia on 04/17/24 in . Treated with doxycycline, overall improving. Using albuterol 1-2 x day. She is on flovent for asthma, but admits to not using regularly. Denies fever/chills,cough improving. 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 She is now d/c to follow with [facility] per patient. She continues to have palpitations at times, prescribed Nadolol to use prn. Following with [facility]-cardiology. 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 Melvin palpitations in office today. Had ECG and then took nadolol. Denies Chest pain, pleuritic chest pain, leg swelling, calf pain. Notes some intermittent SOB, but had had this since the pneumonia, and overall slightly improved. Denies dizziness. 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 Smoker 06/24/2010 Snoring 09/29/2009 Sleep study completed 09/23/07 Subacromial impingement of right shoulder 03/07/2019 Supervision of other high-risk (V23.89) 07/09/2009 Trigeminal neuropathy RIGHT SIDE OF FACE Ulnar nerve compression 07/29/2015 Unspecified asthma(493.90) Unspecified drug dependence Not since 2000 Drug dependence/opium and marjuana use Ventricular premature depolarization ALLERGIES Bee Venom Protein (Honey Bee), Iv Dye [Iodine], Adenosine, Amoxicillin Trihydrate, Augmentin [Amoxicillin-Pot Clavulanate], Corticosteroids (Glucocorticoids), Feathers, Potassium Clavulanate, Prednisone, Silvadene [Silver Sulfadiazine], and Sulfa (Sulfonamide Antibiotics) MEDICATIONS Current Outpatient Medications Medication Sig metroNIDAZOLE (METROGEL VAGINAL) 0.75 % (37.5mg/5 gram) Vaginal Gel Use 1 applicator vaginally twice per week. albuterol (PROVENTIL) 2.5 mg /3 mL (0.083 %) nebulizer solution Use 3 mL via nebulizer every 4 hours as needed for wheezing/shortness of breath. Use over 5-15minutes. fluticasone (FLOVENT) 220 mcg/actuation inhaler Inhale 1 Puff as instructed two times a day. Shake well before use. Rinse mouth after use. levonorgestrel (MIRENA) 21 mcg/24 hr (8 yrs) 52 mg IUD 1 Each by INTRAUTERINE route as directed. albuterol HFA (PROVENTIL HFA, VENTOLIN HFA) 90 mcg/actuation inhaler Inhale 2 Puffs as instructed every 4 hours as needed. Selenium Sulfide 2.25 % sham Apply to affected area once daily. Nebulizer Accessories misc 1 Each as needed. ibuprofen (MOTRIN) 800 mg tablet Take 1 tablet by mouth every 8 hours as needed for pain. Take with food. omeprazole (PRILOSEC) 20 mg capsule TAKE 1 CAPSULE BY MOUTH 1/2 HOUR before breakfast Nebulizers 1 Each as needed. Nebuli (more content not included)... [facility] 05-08-2024 History of Present illness Narrative 05/08/2024 Patient presents with: Follow Up: 3 month follow up SUBJECTIVE: This is a 38 year old that is here today for follow up asthma and palpitations. Patient was diagnosed with COVID and pneumonia on 04/17/24 in . Treated with doxycycline, overall improving. Using albuterol 1-2 x day. She is on flovent for asthma, but admits to not using regularly. Denies fever/chills,cough improving. 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 She is now d/c to follow with [facility] per patient. She continues to have palpitations at times, prescribed Nadolol to use prn. Following with [facility]-card[facility]. 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 Melvin palpitations in office today. Had ECG and then took nadolol. Denies Chest pain, pleuritic chest pain, leg swelling, calf pain. Notes some intermittent SOB, but had had this since the pneumonia, and overall slightly improved. Denies dizziness. 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/2015 Unspecified asthma(493.90) Unspecified drug dependence Not since 2000 Drug dependence/opium and marjuana use Ventricular premature depolarization ALLERGIES Bee Venom Protein (Honey Bee), Iv Dye [Iodine], Adenosine, Amoxicillin Trihydrate, Augmentin [Amoxicillin-Pot Clavulanate], Corticosteroids (Glucocorticoids), Feathers, Potassium Clavulanate, Prednisone, Silvadene [Silver Sulfadiazine], and Sulfa (Sulfonamide Antibiotics) MEDICATIONS Current Outpatient Medications Medication Sig metroNIDAZOLE (METROGEL VAGINAL) 0.75 % (37.5mg/5 gram) Vaginal Gel Use 1 applicator vaginally twice per week. albuterol (PROVENTIL) 2.5 mg /3 mL (0.083 %) nebulizer solution Use 3 mL via nebulizer every 4 hours as needed for wheezing/shortness of breath. Use over 5-15minutes. fluticasone (FLOVENT) 220 mcg/actuation inhaler Inhale 1 Puff as instructed two times a day. Shake well before use. Rinse mouth after use. levonorgestrel (MIRENA) 21 mcg/24 hr (8 yrs) 52 mg IUD 1 Each by INTRAUTERINE route as directed. albuterol HFA (PROVENTIL HFA, VENTOLIN HFA) 90 mcg/actuation inhaler Inhale 2 Puffs as instructed every 4 hours as needed. Selenium Sulfide 2.25 % sham Apply to affected area once daily. Nebulizer Accessories misc 1 Each as needed. ibuprofen (MOTRIN) 800 mg tablet Take 1 tablet by mouth every 8 hours as needed for pain. Take with food. omeprazole (PRILOSEC) 20 mg capsule TAKE 1 CAPSULE BY MOUTH 1/2 HOUR before breakfast Nebulizers 1 Each as needed. Nebulizer with accessories/tubing ubidecarenone (H2Q COQ10 ORAL) Take by mouth. 50mg x1 daily oxyCODONE-acetaminophen (PERCOCET) 5-325 mg tablet Take 1-2 tablets by mouth as directed. Every 4-6 hours as needed for pain. nadolol (CORGARD) 20 mg tablet Take 0.5 tablets by mouth twice daily. (Patient taking differently: Take 10 mg by mouth as needed.) Lactobacillus acidophilus (FLORAJEN ACIDOPHILUS) 20 billion cell cap Take 460 mg by mouth once daily. clonazePAM (KLONOPIN) 0.5 mg tablet Take 1 tablet by mouth four times daily as needed. EPINEPHrine (EPIPEN) 0.3 mg/0.3 mL auto-injector Use [...] for this visit. SOCIAL HISTORY Social History Tobacco Use Smoking status: Former Current packs/day: 0.00 Average packs/day: 0.5 packs/day for 20.4 years (10.2 ttl pk-yrs) Types: Cigarettes Start date: 01/24/2000 Quit date: 07/03/2020 Years since quittin.8 Smokeless tobacco: Former Quit date: 08/18/2018 Vaping Use Vaping status: Some Days Start date: 07/03/2020 Substances: Nicotine, Flavoring Devices: Pre-filled or refillable cartridge Substance Use Topics Alcohol use: Not Currently Comment: None since 2011 Drug use: Not Currently Types: Marijuana Comment: Not currrently- hx pot and opoids- none since age 15 REVIEW OF SYSTEMS See HPI OBJECTIVE: BP 120/70 (BP Site: Left Arm, BP Position: Sitting, BP Cuff Size: Large Adult) Pulse 78 Resp 14 Ht 165.1 cm (5' 5) Wt 100.7 kg (222 lb 0.1 oz) LMP (LMP Unknown) SpO2 98% BMI 36.94 kg/m APPEARANCE Well appearing, alert, in no acute distress, well-hydrated, well nourished. THROAT normal, no erythema NECK Supple, no adenopathy; thyroid symmetric, normal size, no bruits HEART RRR with normal S1 and S2, LUNG clear to auscultation, No wheezing, rhonchi, rales. ASSESSMENT/PLAN: 1. Paroxysmal tachycardia (HCC) - ICD9: 427.2, ICD10: I47.9 (primary diagnosis) Took nadolol in office, HR at 88 on repeat. ECG compared to previous, reviewed with supervising physician-Dr. 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 Bacterial pneumonia - ICD9: 482.9, ICD10: J15.9 Repeat CXR in 4-6 weeks to confirm resolution - XR CHEST 2V FRONTAL/LAT 3. Mild intermittent asthma without complication - ICD9: 493.90, ICD10: J45.20 - Mild persistent asthma worse - Continue current medications-Take Flovent regularly as prescribed F/u in 3 months, sooner if needed Stopped singulair- ordered refill. - Avoidance of triggers recommended Albuterol prn Reviewed red flags and when to seek care sooner. The patient indicates understanding of these issues and agrees with the plan. Surya Bishop PA-C documented in this encounter [facility] 04-17-2024 Note HNO ID: [id number] Author: ADRIANA COULTER APRN.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 Service: ? Author Type: Nurse Practitioner Type: Progress Notes Filed: 04/17/2024 11:07 Note Text: Subjective HPI HPI Bria Witt is a 38 year old female who presents today for CC of cough, congestion, sob, fever. This started 4 days ago. Has tried otc medication for relief. Symptoms are worsened by nothing. Risk factors sick exposures at home. 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 - right arm surgery SHOULDER SURGERY HX Left 01/26/2017 [facility] - Left shoulder surgery - repair [...] [Silver Sulfadiazine], and Sulfa (Sulfonamide Antibiotics) MEDICATIONS metroNIDAZOLE (METROGEL VAGINAL) 0.75 % (37.5mg/5 gram) Vaginal Gel Use 1 applicator vaginally twice per week. albuterol (PROVENTIL) 2.5 mg /3 mL (0.083 %) nebulizer solution Use 3 (more content not included)... [facility] 04-17-2024 History of Present illness Narrative Subjective HPI HPI Bria Witt is a 38 year old female who presents today for CC of cough, congestion, sob, fever. This started 4 days ago. Has tried otc medication for relief. Symptoms are worsened by nothing. Risk factors sick exposures at home. 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 Smoker 06/24/2010 Snoring 09/29/2009 Sleep study completed [...] INSERTION OF IUD 04/16/2010 Paragard and removed INSERTION OF IUD 01/13/2024 MIRENA LAPS SURG CHOLECYSTECTOMY W/CHOLANGIOGRAPHY 02/12/2014 normal IOC LARYNGOSCOPY LARYNGOSCOPY LEFT HEART CATH,PERCUTANEOUS 2007 MIRENA 08/02/2016 Placed in office- due for removal 2023 MYRINGOTOMY ASPIR&/EUSTACHIAN TUBE NFLTJ ANES Myringotomy/tubes PAST SURGICAL HISTORY OF Right 02/05/2015 ulnar pinning X2 PAST SURGICAL HISTORY OF Right 09/10/2014 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 - Left shoulder surgery - repair [...] [Silver Sulfadiazine], and Sulfa (Sulfonamide Antibiotics) MEDICATIONS metroNIDAZOLE (METROGEL VAGINAL) 0.75 % (37.5mg/5 gram) Vaginal Gel Use 1 applicator vaginally twice per week. albuterol (PROVENTIL) 2.5 mg /3 mL (0.083 %) nebulizer solution Use 3 mL via nebulizer every 4 hours as needed for wheezing/shortness of breath. Use over 5-15minutes. fluticasone (FLOVENT) 220 mcg/actuation inhaler Inhale 1 Puff as instructed two times a day. Shake well before use. Rinse mouth after use. levonorgestrel (MIRENA) 21 mcg/24 hr (8 yrs) 52 mg IUD 1 Each by INTRAUTERINE route as directed. albuterol HFA (PROVENTIL HFA, VENTOLIN HFA) 90 mcg/actuation inhaler Inhale 2 Puffs as instructed every 4 hours as needed. Selenium Sulfide 2.25 % sham Apply to affected area once daily. Nebulizer Accessories misc 1 Each as needed. ibuprofen (MOTRIN) 800 mg tablet Take 1 tablet by mouth every 8 hours as needed for pain. Take with food. omeprazole (PRILOSEC) 20 mg capsule TAKE 1 CAPSULE BY MOUTH 1/2 HOUR before breakfast Nebulizers 1 Each as needed. Nebulizer with accessories/tubing ubidecarenone (H2Q COQ10 ORAL) Take by mouth. 50mg x1 daily oxyCODONE-acetaminophen (PERCOCET) 5-325 mg tablet Take 1-2 tablets by mouth as directed. Every 4-6 hours as needed for pain. nadolol (CORGARD) 20 mg tablet Take 0.5 tablets by mouth twice daily. (Patient taking differently: Take 10 mg by mouth as needed.) Lactobacillus acidophilus (FLORAJEN ACIDOPHILUS) 20 billion cell cap Take 460 mg by mouth once daily. clonazePAM (KLONOPIN) 0.5 mg tablet Take 1 tablet by mouth four times daily as needed. EPINEPHrine (EPIPEN) 0.3 mg/0.3 mL auto-injector Use as directed for allergic reaction. Seek emergent medical care immediately after use. nitroglycerin sublingual (NITROQUICK) 0.4 mg SL tablet Dissolve 1 tablet under the tongue every 5 minutes as needed. meclizine (ANTIVERT) 25 mg tab Take 25 mg by mouth twice daily as needed. sertraline (ZOLOFT) 100 mg tablet Take 100 mg by mouth twice daily. doxycycline monohydrate 100 mg tablet Take 1 tablet by mouth two times a day for 7 days. FAMILY HISTORY Problem Relation Age of [...] Social History Tobacco Use Smoking status: Former Current packs/day: 0.00 Average packs/day: 0.5 packs/day for 20.4 years (10.2 ttl pk-yrs) Types: Cigarettes Start date: 01/24/2000 Quit date: 07/03/2020 Years since quittin.7 Smokeless tobacco: Former Quit date: 08/18/2018 Vaping Use Vaping status: Some Days Start date: 07/03/2020 Substances: Nicotine, Flavoring Devices: Pre-filled or refillable cartridge Substance Use Topics Alcohol use: Not Currently Comment: None since 2011 Drug use: Not Currently Types: Marijuana Comment: Not currrently- hx pot and opoids- none since age 15 Review of Systems Constitutional: Positive for fever and malaise/fatigue. HENT: Positive for congestion and sore throat. Negative for ear pain and nosebleeds. Respiratory: Positive for cough and sputum production. Negative for shortness of breath and wheezing. Cardiovascular: Positive for chest pain (with cough). Musculoskeletal: Negative for neck pain. Skin: Negative for itching and rash. Objective Blood pressure 129/85, pulse 87, temperature 36.8 C (98.3 F), resp. rate 20, weight 101.7 kg (224 lb 3.3 oz), SpO2 96%. Physical Exam Constitutional: General: She is not in acute distress. Appearance: She is ill-appearing. She is not toxic-appearing or diaphoretic. HENT: Head: Normocephalic and atraumatic. Right Ear: Hearing, tympanic membrane, ear canal and external ear normal. Left Ear: Hearing, tympanic membrane, ear canal and external ear normal. Nose: Nose normal. Mouth/Throat: Pharynx: Uvula midline. No pharyngeal swelling, oropharyngeal exudate, posterior oropharyngeal erythema or uvula swelling. Eyes: General: Lids are normal. No scleral icterus. Right eye: No discharge. Left eye: No discharge. Conjunctiva/sclera: Conjunctivae normal. Pupils: Pupils are equal, round, and reactive to light. Neck: Trachea: Trachea normal. Cardiovascular: Rate and Rhythm: Normal rate and regular rhythm. Heart sounds: Normal heart sounds. Pulmonary: Effort: Pulmonary effort is normal. Breath sounds: Normal breath sounds. Musculoskeletal: Cervical back: Normal range of motion and neck supple. Lymphadenopathy: Cervical: No cervical adenopathy. Right cervical: No superficial cervical adenopathy. Left cervical: No superficial cervical adenopathy. Skin: Findings: No rash. Neurological: Mental Status: She is alert and oriented to person, place, and time. ASSESSMENT/PLAN: 1. Community acquired pneumonia of left lung, unspecified part of lung - ICD9: 486, ICD10: J18.9 (primary diagnosis) - Discussed supportive care - Limit exposure to smoke and other inhaled irritants - Discussed possible red flags and when to seek medical attention - Follow up in 3-5 days or sooner if no better or worse -If you experience chest pain/shortness of breath go to ER - DOXYCYCLINE MONOHYDRATE 100 MG TABLET Negative. - STREP A MOLECULAR (POC) 3. Acute cough - ICD9: 786.2, ICD10: R05.1 - XR CHEST 2V FRONTAL/LAT IMPRESSION: Possible vague opacity LEFT perihilar region which may be infectious/inflammatory. Dictated by : BRIAN GRAVES DO 4. URI, acute - ICD9: 465.9, ICD10: J06.9 - Discussed viral etiology and rationale for treatment. - Symptomatic treatment with prn analgesia - Supportive care with fluids and rest - Follow up in 3-5 days if symptoms persist or sooner if worsening of symptoms - COVID & INFLUENZA A/B & RSV PCR, ROUTINE Adriana Coulter APRN.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 documented in this encounter [facility] 04-17-2024 History of Present illness Narrative Radiology Service Progress Note PATIENT NAME: Bria Witt DATE OF SERVICE: April 17, 2024 TIME: 10:36 AM PATIENT IDENTITY VERIFICATION COMPLETED USING TWO (2) IDENTIFIERS: Name and Date of confirmed by patient verbally. FALL SCREENING: Has the patient had 2 falls in the last year or 1 fall with injury or currently using an Ambulatory Assistive Device (Walker, Cane, Wheelchair, Crutches, etc.)? No PATIENT GENDER DATA: Female. status: : No status: NO. PATIENT RELEVANT IMPLANT DATA REVIEWED: Not Applicable PATIENT PRESENTS WITH AN IMPLANTABLE OR ATTACHED SECTION LABORER: No RADIOLOGY DEPARTMENT: General X-ray: Exam(s) Completed: Chest X-Ray PERIPHERAL IV DATA: Not applicable SIGNED BY: RT Oni(R) April 17, 2024 10:36 AM documented in this encounter [facility] 04-17-2024 Note HNO ID: [id number] Author: XIOMY MORENO RT(Kathleen) Service: Radiology Author Type: Technologist Type: Progress Notes Filed: 04/17/2024 10:43 Note Text: Radiology Service Progress Note PATIENT NAME: Bria Witt DATE OF SERVICE: April 17, 2024 TIME: 10:36 AM PATIENT IDENTITY VERIFICATION COMPLETED USING TWO (2) IDENTIFIERS: Name and Date of confirmed by patient verbally. FALL SCREENING: Has the patient had 2 falls in the last year or 1 fall with injury or currently using an Ambulatory Assistive Device (Walker, Cane, Wheelchair, Crutches, etc.)? No PATIENT GENDER DATA: Female. status: : No status: NO. PATIENT RELEVANT IMPLANT DATA REVIEWED: Not Applicable PATIENT PRESENTS WITH AN IMPLANTABLE OR ATTACHED SECTION LABORER: No RADIOLOGY DEPARTMENT: General X-ray: Exam(s) Completed: Chest X-Ray PERIPHERAL IV DATA: Not applicable SIGNED BY: RT Oni(R) April 17, 2024 10:36 AM [facility] 03-20-2024 History of Present illness Narrative Chief Complaint Chief Complaint Patient presents with Hoarseness Pertinent History: referred by Dr. 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 Interval History (02/2024): She reports no cough and has improved voice with voice rest. Exam: VOICE: Moderate variable hoarseness with improved volume and control. RESPIRATION: Breathing comfortably, no stridor. ORAL CAVITY/OROPHARYNX/LIPS: Normal mucous membranes, normal floor of mouth/tongue/OP, no masses or lesions are noted. SKIN: Neck skin is without scar or injury. PSYCH: Alert and oriented with appropriate mood and affect. PROCEDURE NOTE: Recommended flexible laryngoscopy. Risks, benefits, and alternatives were explained. They wished to proceed and provides verbal consent. PROCEDURE: Flexible Laryngoscopy with stroboscopy, CPT 58809 POSTPROCEDURE DIAGNOSIS: Voice INDICATIONS: Inability to tolerate mirror exam or abnormal findings on mirror, Flexible Laryngoscopy/Stroboscopy performed to assess one of the followin. Diagnosis of symptomatic disorder involving the voice, swallow, upper aerodigestive tract, including JOSE disorders, or 2. Preoperative evaluation of vocal cord function for individuals undergoing surgery where the RLN or vagus nerves are at risk of injury, or 3. Further evaluation of abnormalities of the upper aerodigestive tract discovered by another modality, such as CT, MRI, bronchoscopy or EGD Description of Procedure: After adequate afrin and lidocaine spray, I advanced the endoscope. Visualization of the nasopharynx, vallecula, posterior pharyngeal yadav, pyriform, epiglottis and post cricoid areas was unremarkable. The following laryngeal findings were noted: vocal cord movement was normal closure was incomplete Mucosal wave was improved bilaterally Erythema/edema was markedly improved interarytenoid edema none lesions were improved the subglottis was widely patent Pharyngeal wall squeeze was normal Procedure well tolerated. 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 She has now significantly modified her voice use which has helped her voicing considerably. Today's exam shows improved appearance of her larynx with decreased edema/erythema. Her lesions have decreased in size with voice rest. She was assured that at this time that surgical excision is not warranted due to marked improvement with conservative management with voice rest and improved laryngeal hygiene. We discussed: She will continue with decreasing her volume. She will follow up with speech therapy in one month. She will follow up with Dr. Holbrook for general ENT needs. The patient's questions were answered. Scribe Attestation By signing my name below, I, Jane Story , Scribe attest that this documentation has been prepared under the direction and in the presence of Moises Pfeiffer MD. documented in this encounter [facility] Work Phone: 03-19-2024 Telephone encounter Note Patient given results and verbalized understanding of instructions given. Irma Cardenas MA [facility] 03-19-2024 Miscellaneous Notes Patient given results and verbalized understanding of instructions given. Irma Cardenas MA Urine was not a clean sample so culture did not show a clear infection. Finish antibiotic and follow up with PCP, urology, or DISTILLERY WORKER GENERAL if symptoms persist. documented in this encounter [facility] 03-19-2024 Telephone encounter Note Urine was not a clean sample so culture did not show a clear infection. Finish antibiotic and follow up with PCP, urology, or DISTILLERY WORKER GENERAL if symptoms persist. [facility] Work Phone: 03-17-2024 Note HNO ID: [id number] Author: DERIC LATHAM APRN.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 Service: ? Author Type: Nurse Practitioner Type: Progress Notes Filed: 03/17/2024 13:56 Note Text: CC: Patient presents with: Urinary Problem: Frequency x 2 days Left ear pain x 4 days HPI: Bria Witt is a 38 year old female who presents to the office with complaint of ear symptoms for a few days. Symptoms are staying the same. Associated symptoms includes sore throat, cough, and urinary frequency. Denies fever, nausea, vomiting , and diarrhea. Treatments tried include nothing so far. with no relief of symptoms. Sick contacts: unknown. History of asthma, frequent episodes of bronchitis, chronic bronchitis, bronchiectasis or COPD: No Smoker: No Seasonal/environmental allergies: No The ROS is otherwise negative. The patient's pmh, medications, allergies, and past visits are reviewed. PHYSICAL EXAM: BP 118/62 Pulse 90 Temp 36.8 ?C (98.2 ?F) Resp 21 Wt 100.1 kg (220 lb 10.9 oz) LMP 01/13/2024 (Exact Date) SpO2 98% BMI 36.72 kg/m? General appearance: alert, cooperative, pleasant, in no acute distress Head: Normocephalic Eyes: EOM's intact, conjunctiva pink and moist, no icterus, sclera white, non-injected Ears: Right ear: External ear/canal- Normal, TM - clear with good landmarks. Left ear: External ear/canal- Normal, TM - erythematous Oropharynx:moist without lesions, uvula midline, tonsils surgically absent Heart: Negative. RRR without obvious murmur, gallop, or rubs. No ectopy. 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 [facility] 03-17-2024 History of Present illness Narrative CC: Patient presents with: Urinary Problem: Frequency x 2 days Left ear pain x 4 days HPI: Bria Witt is a 38 year old female who presents to the office with complaint of ear symptoms for a few days. Symptoms are staying the same. Associated symptoms includes sore throat, cough, and urinary frequency. Denies fever, nausea, vomiting , and diarrhea. Treatments tried include nothing so far. with no relief of symptoms. Sick contacts: unknown. History of asthma, frequent episodes of bronchitis, chronic bronchitis, bronchiectasis or COPD: No Smoker: No Seasonal/environmental allergies: No The ROS is otherwise negative. The patient's pmh, medications, allergies, and past visits are reviewed. PHYSICAL EXAM: BP 118/62 Pulse 90 Temp 36.8 C (98.2 F) Resp 21 Wt 100.1 kg (220 lb 10.9 oz) LMP 01/13/2024 (Exact Date) SpO2 98% BMI 36.72 kg/m General appearance: alert, cooperative, pleasant, in no acute distress Head: Normocephalic Eyes: EOM's intact, conjunctiva pink and moist, no icterus, sclera white, non-injected Ears: Right ear: External ear/canal- Normal, TM - clear with good landmarks. Left ear: External ear/canal- Normal, TM - erythematous Oropharynx:moist without lesions, uvula midline, tonsils surgically absent Heart: Negative. RRR without obvious murmur, gallop, or rubs. No ectopy. 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 - right arm surgery SHOULDER SURGERY HX Left 01/26/2017 [facility] - Left shoulder surgery - repair [...] [Silver Sulfadiazine], and Sulfa (Sulfonamide Antibiotics) MEDICATIONS metroNIDAZOLE (METROGEL VAGINAL) 0.75 % (37.5mg/5 gram) Vaginal Gel Use 1 applicator vaginally twice per week. albuterol (PROVENTIL) 2.5 mg /3 mL (0.083 %) nebulizer solution Use 3 mL via nebulizer every 4 hours as needed for wheezing/shortness of breath. Use over 5-15minutes. fluticasone (FLOVENT) 220 mcg/actuation inhaler Inhale 1 Puff as instructed two times a day. Shake well before use. Rinse mouth after use. levonorgestrel (MIRENA) 21 mcg/24 hr (8 yrs) 52 mg IUD 1 Each by INTRAUTERINE route as directed. albuterol HFA (PROVENTIL HFA, VENTOLIN HFA) 90 mcg/actuation inhaler Inhale 2 Puffs as instructed every 4 hours as needed. Selenium Sulfide 2.25 % sham Apply to affected area once daily. Nebulizer Accessories misc 1 Each as needed. ibuprofen (MOTRIN) 800 mg tablet Take 1 tablet by mouth every 8 hours as needed for pain. Take with food. omeprazole (PRILOSEC) 20 mg capsule TAKE 1 CAPSULE BY MOUTH 1/2 HOUR before breakfast Nebulizers 1 Each as needed. Nebulizer with accessories/tubing ubidecarenone (H2Q COQ10 ORAL) Take by mouth. 50mg x1 daily oxyCODONE-acetaminophen (PERCOCET) 5-325 mg tablet Take 1-2 tablets by mouth as directed. Every 4-6 hours as needed for pain. nadolol (CORGARD) 20 mg tablet Take 0.5 tablets by mouth twice daily. (Patient taking differently: Take 10 mg by mouth as needed.) Lactobacillus acidophilus (FLORAJEN ACIDOPHILUS) 20 billion cell cap Take 460 mg by mouth once daily. clonazePAM (KLONOPIN) 0.5 mg tablet Take 1 tablet by mouth four times daily as needed. EPINEPHrine (EPIPEN) 0.3 mg/0.3 mL auto-injector Use as directed for allergic reaction. Seek emergent medical care immediately after use. nitroglycerin sublingual (NITROQUICK) 0.4 mg SL tablet Dissolve 1 tablet under the tongue every 5 minutes as needed. meclizine (ANTIVERT) 25 mg tab Take 25 mg by mouth twice daily as needed. sertraline (ZOLOFT) 100 mg tablet Take 100 mg by mouth twice daily. nystatin (MYCOSTATIN) 100,000 unit/mL suspension Take 5 mL by mouth four times daily. 1tsp swish in mouth for several minutes, then swallow (or expectorate) 4 times daily until gone. (Patient not taking: Reported on 12/14/2023) triamcinolone acetonide (KENALOG) 0.1 % ointment Apply to affected area two times a day. (Patient not taking: Reported on 03/05/2024) pravastatin (PRAVACHOL) 20 mg tablet Take 20 mg by mouth daily at bedtime. (Patient not taking: Reported on 03/05/2024) FAMILY HISTORY Problem Relation Age of Onset [...] Social History Tobacco Use Smoking status: Former Current packs/day: 0.00 Average packs/day: 0.5 packs/day for 20.4 years (10.2 ttl pk-yrs) Types: Cigarettes Start date: 01/24/2000 Quit date: 07/03/2020 Years since quittin.7 Smokeless tobacco: Former Quit date: 08/18/2018 Vaping Use Vaping status: Some Days Start date: 07/03/2020 Substances: Nicotine, Flavoring Devices: Pre-filled or refillable cartridge Substance Use Topics Alcohol use: Not Currently Comment: None since 2011 Drug use: Not Currently Types: Marijuana Comment: Not currrently- hx pot and opoids- none since age 15 ASSESSMENT/PLAN: 1. Urinary frequency - ICD9: 788.41, ICD10: R35.0 (primary diagnosis) - UA DIP, URINE (POC) - URINE CULTURE - CEPHALEXIN 500 MG CAPSULE 2. Acute otitis externa of left ear, unspecified type - ICD9: 380.10, ICD10: H60.502 - [id number] 3.5 MG-10,000 UNIT/ML-1 % EAR DROPS,SUSP Prescription instructions reviewed with patient as applicable. Potential red flag symptoms discussed with the patient. Reviewed appropriate action plan to take if red flag symptoms occur. Patient agreeable to treatment plan. Deric Latham APRN.VELVET documented in this encounter [facility] 03-05-2024 Note HNO ID: [id number] Author: NGA MICHEL MD Service: ? Author Type: Physician Type: Progress Notes Filed: 03/05/2024 12:31 Note Text: BVAChaperone offered: Radha Fraser is a 38 year old who presents for an annual gynecologic exam with complaints, vaginal discharge, vaginal itching, and vulvar irritation. Gets frequent BV infections. Prefers metrogel Menses: no menses - Mirena IUD. Contraception: IUD HPV vaccine: No Last Pap: 03/18/2022 normal HPV: 03/18/2022 negative History of abnormal pap: Yes Last mammogram: 09/14/2023 Sexually active: No OB History T5 L6 SAB2 IAB0 Ectopic0 Multiple0 Live Births4 Denture Model Maker History LMP: 01/13/2024 (Exact Date), IUD Age at Menarche: Age at First : Age at Menopause: Denture Model Maker History Comments: Sexual Activity: Yes; Male Contraception: Tubal Ligation, I.U.D. 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 - right arm surgery SHOULDER SURGERY HX Left 01/26/2017 [facility] - Left shoulder surgery - repair [...] COPD Mother other (HYPOGLYCEMIA) Mother other (CHRONIC BRONCHI (more content not included)... [facility] 03-05-2024 History of Present illness Narrative BVAChaperone offered: Radha Fraser is a 38 year old who presents for an annual gynecologic exam with complaints, vaginal discharge, vaginal itching, and vulvar irritation. Gets frequent BV infections. Prefers metrogel Menses: no menses - Mirena IUD. Contraception: IUD HPV vaccine: No Last Pap: 03/18/2022 normal HPV: 03/18/2022 negative History of abnormal pap: Yes Last mammogram: 09/14/2023 Sexually active: No OB History T5 L6 SAB2 IAB0 Ectopic0 Multiple0 Live Births4 Denture Model Maker History LMP: 01/13/2024 (Exact Date), IUD Age at Menarche: Age at First : Age at Menopause: Denture Model Maker History Comments: Sexual Activity: Yes; Male Contraception: Tubal Ligation, I.U.D. 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 - right arm surgery SHOULDER SURGERY HX Left 01/26/2017 [facility] - Left shoulder surgery - repair [...] Social History Tobacco Use Smoking status: Former Current packs/day: 0.00 Average packs/day: 0.5 packs/day for 20.4 years (10.2 ttl pk-yrs) Types: Cigarettes Start date: 01/24/2000 Quit date: 07/03/2020 Years since quittin.6 Smokeless tobacco: Former Quit date: 08/18/2018 Vaping Use Vaping status: Some Days Start date: 07/03/2020 Substances: Nicotine, Flavoring Devices: Pre-filled or refillable cartridge Substance Use Topics Alcohol use: Not Currently Comment: None since 2011 Drug use: Not Currently Types: Marijuana Comment: Not currrently- hx pot and opoids- none since age 15 REVIEW OF SYSTEMS Abdomen: No abdominal pain, nausea, vomiting, diarrhea, or constipation. No bloating, early satiety, indigestion, or increased flatulence. Bladder: No dysuria, gross hematuria, urinary frequency, urinary urgency, or incontinence. Breast: No breast lumps, nipple d/c, overlying skin changes, redness or skin retraction. Allergies and current medication updated:Yes SENSITIVE EXAM: The sensitive examination was discussed with the Patient or Patient's Authorized Bottling Room Worker. As applicable, any other physician, advance practice provider, medical student, or other health professional student that will be observing or involved in the sensitive examination for educational or training purposes was discussed with the Patient or Authorized Bottling Room Worker. The Patient or Authorized Bottling Room Worker has agreed to proceed with the sensitive examination. (Sensitive examination includes inspection and/or palpation of the breasts, pelvis, prostate and anorectal regions). EXAM: BP 104/70 Ht 5' 5 (1.65m) Wt 216 lb 12.8 oz (98.3kg) LMP 01/13/2024 BMI 36.08 kg/(m^2). GENERAL: pleasant, female in no apparent distress HEENT: Normocephalic, atraumatic, mucus membranes moist, and no lesions NECK: Supple, full range of motion, no adenopathy, and thyroid normal DERMATOLOGY: Normal, without lesions, non-icteric, and non-hirsute BREAST: soft, non-tender, symmetric, no dominant mass, normal nipple-areolar complex, no lymphadenopathy, and no nipple discharge CHEST: Normal inspiratory effort ABDOMEN: soft, non-tender, and no masses PELVIC: external genitalia normal, normal Bartholin's glands, urethra, [place]'s glands, no vulvar lesions, no cervical lesions, good vaginal support, physiologic discharge present, normal appearing perineal body and perianal region BIMANUAL: uterus normal size, shape and consistency, no adnexal masses, and non-tender RECTOVAGINAL: patient declined. NEURO: alert and oriented x3,exam grossly non-focal EXTREMITIES: normal ASSESSMENT/PLAN: 1) Health maintenance: Pap/HPV up to date. Mammogram ordered. 2) Contraception: IUD. Contraceptive options reviewed and information provided. 3) STD screening: Declined STD check. 4) Follow up one year or sooner as needed Nga Michel MD documented in this encounter [facility] 02-15-2024 Note HNO ID: [id number] Author: NGA MICHEL MD Service: ? Author Type: Physician Type: Progress Notes Filed: 02/15/2024 19:40 Note Text: Cold Water Machine Operator offered: Patient declines. Bria Witt presents today for IUD check. She had a Mirena placed on 01/13/24. She has had spotting since placement. REVIEW OF SYSTEMS: GENERAL: No weight loss, malaise or fevers : No history of dysuria, frequency or incontinence DISTILLERY WORKER GENERAL: Negative for abnormal vaginal bleeding, abnormal vaginal discharge SENSITIVE EXAM: The sensitive examination was discussed with the Patient or Patient's Authorized Bottling Room Worker. As applicable, any other physician, advance practice provider, medical student, or other health professional student that will be observing or involved in the sensitive examination for educational or training purposes was discussed with the Patient or Authorized Bottling Room Worker. The Patient or Authorized Bottling Room Worker has agreed to proceed with the sensitive examination. (Sensitive examination includes inspection and/or palpation of the breasts, pelvis, prostate and anorectal regions). PHYSICAL EXAMINATION: LMP 11/26/2023 ABDOMEN:soft, non-tender, no masses, no hepatosplenomegaly, and no lymphadenopathy EXTERNAL GENITALIA: Normal genitalia and Bartholins, Urethra, Sken'e normal CERVIX: smooth, no lesions. IUD strings visible. UTERUS: normal size ADNEXA: negative for tenderness or masses IMPRESSION/PLAN: IUD correctly positioned. [facility] 02-15-2024 History of Present illness Narrative Cold Water Machine Operator offered: Patient declines. Bria Witt presents today for IUD check. She had a Mirena placed on 01/13/24. She has had spotting since placement. REVIEW OF SYSTEMS: GENERAL: No weight loss, malaise or fevers : No history of dysuria, frequency or incontinence DISTILLERY WORKER GENERAL: Negative for abnormal vaginal bleeding, abnormal vaginal discharge SENSITIVE EXAM: The sensitive examination was discussed with the Patient or Patient's Authorized Bottling Room Worker. As applicable, any other physician, advance practice provider, medical student, or other health professional student that will be observing or involved in the sensitive examination for educational or training purposes was discussed with the Patient or Authorized Bottling Room Worker. The Patient or Authorized Bottling Room Worker has agreed to proceed with the sensitive examination. (Sensitive examination includes inspection and/or palpation of the breasts, pelvis, prostate and anorectal regions). PHYSICAL EXAMINATION: LMP 11/26/2023 ABDOMEN:soft, non-tender, no masses, no hepatosplenomegaly, and no lymphadenopathy EXTERNAL GENITALIA: Normal genitalia and Bartholins, Urethra, Sken'e normal CERVIX: smooth, no lesions. IUD strings visible. UTERUS: normal size ADNEXA: negative for tenderness or masses IMPRESSION/PLAN: IUD correctly positioned. documented in this encounter [facility] 02-14-2024 History of Present illness Narrative Reason For Consult Chief Complaint Patient presents with vocal cord polyp Pt states that her ENT told her there was more wrong with her vocal cord other than the polyp HISTORY OF PRESENT ILLNESS: Bria Witt, who is a 38 y.o. female referred by Dr. 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 The patient reports hoarseness for the last 5 months. She has not performed voice rest. She has high voice demand at home as she has 5 kids. She sings for pleasure. Come on gradually and had been progressive. Evaluated by Dr Holbrook who noted bilateral lesions and normal moblity. No speech therapy yet. Past Medical History She has no past medical history on file. Surgical History She has no past surgical history on file. Social History She reports that she has been smoking cigarettes. She has never used smokeless tobacco. No history on file for alcohol use and drug use. Allergies Bee venom protein (honey bee), Iodine, Adenosine, Amoxicillin-pot clavulanate, Corticosteroids (glucocorticoids), Feathers, Potassium clavulanate, Silver sulfadiazine, and Sulfa (sulfonamide antibiotics) Review of Systems All 10 systems were reviewed and negative except for above. Physical Exam CONSTITUTIONAL: Well developed, well nourished. VOICE: severe hoarseness RESPIRATION: Breathing comfortably, no stridor. NEURO: Alert and oriented x3, cranial nerves II-XII intact and symmetric bilaterally. EARS: Normal external ears, external auditory canals, normal hearing to conversational voice. NOSE: External nose midline, anterior rhinoscopy is normal with limited visualization to the anterior aspect of the interior turbinates. No lesions noted. ORAL CAVITY/OROPHARYNX/LIPS: Normal mucous membranes, normal floor of mouth/tongue/OP, no masses or lesions are noted. SKIN: Neck skin is without scar or injury. PSYCH: Alert and oriented with appropriate mood and affect. Last Recorded Vitals Temperature 36.6 C (97.8 F), height 1.651 m (5' 5), weight 97.6 kg (215 lb 3.2 oz). Procedure PROCEDURE NOTE: Recommended stroboscopy. Risks, benefits, and alternatives were explained. They wish to proceed and provide verbal consent. PROCEDURE: Flexible laryngoscopy with stroboscopy, CPT 84319 POSTPROCEDURE DIAGNOSIS: voice INDICATIONS: Inability to tolerate mirror exam or abnormal findings on mirror, Stroboscopy performed to assess one of the followin. Diagnosis of symptomatic disorder involving the voice, swallow, upper aerodigestive tract, including JOSE disorders, or 2. Preoperative evaluation of vocal cord function for individuals undergoing surgery where the RLN or vagus nerves are at risk of injury, or 3. Further evaluation of abnormalities of the upper aerodigestive tract discovered by another modality, such as CT, MRI, bronchoscopy or EGD Description of Procedure: After adequate afrin and lidocaine spray, I advanced the endoscope. Visualization of the nasopharynx, vallecula, posterior pharyngeal yadav, pyriform, epiglottis and post cricoid areas was unremarkable. The following laryngeal findings were noted: vocal cord movement was normal bilaterally closure was incomplete due to bilateral lesions edema was moderate interarytenoid edema mild Large ulcerations on the medial surfaces of both vocal cords in the striking zone. the subglottis was widely patent Pharyngeal wall squeeze was normal Procedure well tolerated. ASSESSMENT AND PLAN: This is an initial visit for chronic hoarseness with clinical findings notable for ulcerative lesions on the medial surfaces of the bilateral vocal cords. Secondary issues identified and managed on this patient visit include: severe irritable larynx, cough and voice overuseage Diagnoses are exacerbated by: coughing and high voice demand We discussed the treatment options to include, medical and surgical options. We have decided to proceed as follows: She will perform strict voice rest for one month. She was advised to use whisper phonation and texting. She will work with speech therapy on laryngeal hygiene on voice recovery. She will follow up in 4 weeks. We may need to consider steroid injection in OR if recovery is delayed or incomplete Scribe Attestation By signing my name below, Monico Jane Sandhugayle , Scredwin attest that this documentation has been prepared under the direction and in the presence of Moises Pfeiffer MD. documented in this encounter [facility] Work Phone: 02-06-2024 Note HNO ID: [id number] Author: BRIANA LEGGETT APRN.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 Service: ? Author Type: Nurse Practitioner Type: Progress Notes Filed: 02/06/2024 09:37 Note Text: CC: Patient presents with: Recheck: 6 month follow up HPI Bria Witt is a 38 year old female who presents today for routine follow up. Paroxysmal tachycardia/palpitations - uses her nadolol as needed which is usually in a stressful situation. Has not even needed weekly: Ms. Witt indicates that she is feeling well and denies any symptoms referable to elevated blood pressure. Specifically denies headache, chest pain, palpitations, dyspnea (outside of asthma) , and peripheral edema. Patient denies any side effects of her medication(s) and is compliant with their regimen. She does not check BP's generally. Bria works out regularly 2 times per week with going to gym. She watches her diet for sodium, low fat and low cholesterol most of the time. Last 3 Encounter BP Readings: Date: BP: 02/06/2024 122/68 01/13/2024 104/62 12/14/2023 108/68 Asthma: Uses her albuterol daily for months but continues her flovent. Does not take her montelukast. Unsure if it is related to her issue with a polyp on her vocal chords. Has productive cough of clear sputum, wheezing, slight dyspnea on exertion, and feels like she is noticing more triggers. Does not smoke. No fever or chills. 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 - right arm surgery SHOULDER SURGERY HX Left 01/26/2017 [facility] - Left shoulder (more content not included)... [facility] 02-06-2024 History of Present illness Narrative CC: Patient presents with: Recheck: 6 month follow up HPI Bria Witt is a 38 year old female who presents today for routine follow up. Paroxysmal tachycardia/palpitations - uses her nadolol as needed which is usually in a stressful situation. Has not even needed weekly: Ms. Witt indicates that she is feeling well and denies any symptoms referable to elevated blood pressure. Specifically denies headache, chest pain, palpitations, dyspnea (outside of asthma) , and peripheral edema. Patient denies any side effects of her medication(s) and is compliant with their regimen. She does not check BP's generally. Bria works out regularly 2 times per week with going to gym. She watches her diet for sodium, low fat and low cholesterol most of the time. Last 3 Encounter BP Readings: Date: BP: 02/06/2024 122/68 01/13/2024 104/62 12/14/2023 108/68 Asthma: Uses her albuterol daily for months but continues her flovent. Does not take her montelukast. Unsure if it is related to her issue with a polyp on her vocal chords. Has productive cough of clear sputum, wheezing, slight dyspnea on exertion, and feels like she is noticing more triggers. Does not smoke. No fever or chills. 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 Sunday. I & D VULVA /PERINEAL CYST 10/19/2010 [...] disease PAST SURGICAL HISTORY OF Right 03/07/2019 [facility] - right arm surgery SHOULDER SURGERY HX Left 01/26/2017 [facility] - Left shoulder surgery - repair [...] [Silver Sulfadiazine], and Sulfa (Sulfonamide Antibiotics) MEDICATIONS levonorgestrel (MIRENA) 21 mcg/24 hr (8 yrs) 52 mg IUD^1 Each by INTRAUTERINE route as directed.^Disp: 1 Each^Rfl: 0 albuterol HFA (PROVENTIL HFA, VENTOLIN HFA) 90 mcg/actuation inhaler^Inhale 2 Puffs as instructed every 4 hours as needed.^Disp: 18 g^Rfl: 3 Selenium Sulfide 2.25 % sham^Apply to affected area once daily.^Disp: 180 mL^Rfl: 3 Nebulizer Accessories misc^1 Each as needed.^Disp: 12 Each^Rfl: 1 ibuprofen (MOTRIN) 800 mg tablet^Take 1 tablet by mouth every 8 hours as needed for pain. Take with food.^Disp: 30 tablet^Rfl: 0 urinary tract infection test (VH ESSENTIALS UTI MISC)^Cranberry supplement^Disp: ^Rfl: (Patient not taking: Reported on 10/21/2023) nystatin (MYCOSTATIN) 100,000 unit/mL suspension^Take 5 mL by mouth four times daily. 1tsp swish in mouth for several minutes, then swallow (or expectorate) 4 times daily until gone.^Disp: 200 mL^Rfl: 0 (Patient not taking: Reported on 12/14/2023) triamcinolone acetonide (KENALOG) 0.1 % ointment^Apply to affected area two times a day.^Disp: 30 g^Rfl: 0 albuterol (PROVENTIL) 2.5 mg /3 mL (0.083 %) nebulizer solution^Use 3 mL via nebulizer every 4 hours as needed for wheezing/shortness of breath. Use over 5-15minutes.^Disp: 90 mL^Rfl: 3 omeprazole (PRILOSEC) 20 mg capsule^TAKE 1 CAPSULE BY MOUTH 1/2 HOUR before breakfast^Disp: 30 capsule^Rfl: 5 Nebulizers^1 Each as needed. Nebulizer with accessories/tubing^Disp: 1 Each^Rfl: 0 ubidecarenone (H2Q COQ10 ORAL)^Take by mouth. 50mg x1 daily^Disp: ^Rfl: oxyCODONE-acetaminophen (PERCOCET) 5-325 mg tablet^Take 1-2 tablets by mouth as directed. Every 4-6 hours as needed for pain.^Disp: ^Rfl: FLOVENT HFA 110 mcg/actuation inhaler^Inhale 1 Puff as instructed twice daily.^Disp: ^Rfl: montelukast (SINGULAIR) 10 mg tablet^Take 1 tablet by mouth once daily.^Disp: ^Rfl: nadolol (CORGARD) 20 mg tablet^Take 0.5 tablets by mouth twice daily.^Disp: ^Rfl: (Patient taking differently: Take 10 mg by mouth as needed.) Lactobacillus acidophilus (FLORAJEN ACIDOPHILUS) 20 billion cell cap^Take 460 mg by mouth once daily.^Disp: 30 capsule^Rfl: 0 clonazePAM (KLONOPIN) 0.5 mg tablet^Take 1 tablet by mouth four times daily as needed.^Disp: ^Rfl: EPINEPHrine (EPIPEN) 0.3 mg/0.3 mL auto-injector^Use as directed for allergic reaction. Seek emergent medical care immediately after use.^Disp: 1 Each^Rfl: 0 pravastatin (PRAVACHOL) 20 mg tablet^Take 20 mg by mouth daily at bedtime.^Disp: ^Rfl: nitroglycerin sublingual (NITROQUICK) 0.4 mg SL tablet^Dissolve 1 tablet under the tongue every 5 minutes as needed.^Disp: 25 tablet^Rfl: 3 meclizine (ANTIVERT) 25 mg tab^Take 25 mg by mouth twice daily as needed. ^Disp: ^Rfl: sertraline (ZOLOFT) 100 mg tablet^Take 100 mg by mouth twice daily. ^Disp: ^Rfl: FAMILY HISTORY Problem Relation Age of Onset [...] Social History Tobacco Use Smoking status: Former Current packs/day: 0.00 Average packs/day: 0.5 packs/day for 20.4 years (10.2 ttl pk-yrs) Types: Cigarettes Start date: 01/24/2000 Quit date: 07/03/2020 Years since quittin.5 Smokeless tobacco: Former Quit date: 08/18/2018 Vaping Use Vaping status: Former Start date: 07/03/2020 Substances: Nicotine Substance Use Topics Alcohol use: Not Currently Comment: None since 2011 Drug use: Not Currently Types: Marijuana Comment: Not currrently- hx pot and opoids- none since age 15 PHYSICAL EXAM BP 122/68 Pulse 72 Resp 16 Wt 98 kg (216 lb) LMP 11/26/2023 (Exact Date) SpO2 96% BMI 36.50 kg/m General Appearance: well appearing, in no acute distress, alert Eyes: conjunctiva pink and moist, no icterus, sclera white, non-injected Lungs: Lungs clear to auscultation. No wheezing, rhonchi, rales. Heart: RRR without murmur, gallop, or rubs. No ectopy Health maintenance reviewed with patient: Depression Screening Never done Hepatitis B Vaccine(1 of 3 - 19+ 3-dose series) Never done Pneumococcal Vaccine(2 of 2 - PCV) due on 04/20/2023 Influenza Vaccine(1) due on 01/08/2024 Annual PCP Team Chronic Disease Visit due on 08/04/2024 Mammogram Screening due on 09/13/2024 BP Controlled (<130/80) due on 01/12/2025 Cervical Cancer Screening due on 03/12/2027 DTaP,Tdap,Td Vaccine(2 - Td or Tdap) due on 06/13/2028 Spirometry Completed Hepatitis C Screening Completed HIV Screening Completed HPV Vaccine Aged Out Covid-19 Vaccine Discontinued DATA REVIEWED: No new labs ASSESSMENT/PLAN: 1. Palpitations - ICD9: 785.1, ICD10: R00.2 (primary diagnosis) Controlled well with current treatment 2. Paroxysmal tachycardia (HCC) - ICD9: 427.2, ICD10: I47.9 As above 3. Moderate persistent asthma with acute exacerbation - ICD9: 493.92, ICD10: J45.41 - Moderate persistent asthma worse - Continue current medications but increasing flovent - after evaluation for polyp by ENT, will revaluate as she may need to see research support specialist and/or pulmonology. - Avoidance of triggers recommended - ALBUTEROL SULFATE 2.5 MG/3 ML (0.083 %) SOLUTION FOR NEBULIZATION Prescription instructions reviewed with patient as applicable. Potential red flag symptoms discussed with the patient. Reviewed appropriate action plan to take if red flag symptoms occur. Patient agreeable to treatment plan. Briana Leggett APRN.CNP documented in this encounter [facility] 01-13-2024 Instructions Hillary Doe MA - 01/13/2024 9:08 AM EDT POST IUD INSTRUCTIONS You may have irregular bleeding during the first 3 months of use. You may have mild-severe cramping for the next 48 hours. You may use over the counter medication (Motrin, Tylenol) as needed. Your IUD must be removed or replaced based on the following table: IUD Type Removed or replaced within: Kristy 3 years Kyleena 5 years Mirena 8 years Liletta 8 years Paragard 10 years Call the office for signs/symptoms of infection such as severe cramping, fever, or unusual bleeding. Check for string placement as instructed by your doctor. If you have any additional questions, please contact the office. documented in this encounter [facility] 01-13-2024 Note HNO ID: [id number] Author: NGA MICHEL MD Service: ? Author Type: Physician Type: Progress Notes Filed: 01/13/2024 10:02 Note Text: Bria presents today for IUD insertion for dysmenorrhea, menstrual dysfunction. Patient's last menstrual period was 11/26/2023 (exact date). GC/chlamydia: Negative on 12/14/23 test: negative Side effects including irregular bleeding were discussed with the patient. The patient understands that it should be removed in 8 years or sooner if the patient desires a . IUD source: office provided IUD lot #: [id number] Exp date: 01/06/2026 UNIVERSAL PROTOCOL / SAFETY CHECKLIST Procedure to be Performed: IUD insertion Sign In: A Moment of CARE was completed. Personnel directly involved with the procedure wore the appropriate PPE (Personal Protective Equipment). Patient/Surrogate Stated/Verified: PATIENT VERIFIED(optional for EMERGENT procedures): Patient name, Date of , Relevant allergies, and The intended procedure Time Out Communication: Intended patient and procedure match the source documents. Consent documented and matches the intended procedure. Sign Out: SIGN OUT (optional for EMERGENT procedures): No specimen collected. Nga Michel MD The cervix was prepped with betadine. The uterus sounded to 8 cm and the uterus is Midposition.. Using sterile technique, the Mirena IUD was inserted without difficulty and the string was cut to 3 cm from the external os of the cervix. Patient tolerated procedure well. PLAN: Patient was advised to observe for signs and symptoms of infection including but not limited to fever, malodorous vaginal discharge and/or pain. The patient was told to check the string monthly for accurate placement. Bleeding expectations were reviewed. Follow up for next annual exam or sooner as needed. Nga Michel MD [facility] 01-13-2024 History of Present illness Narrative Bria presents today for IUD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 provider at this time: Yes The last office visit in the department: 08/05/23 Does the patient have a future office visit with this provider/department: Yes Requested Prescriptions Pending Prescriptions Disp Refills Selenium Sulfide 2.25 % sham 180 mL 3 Sig: Apply to affected area once daily. Rossy Spears MA October 25, 2023 1:40 PM documented in this encounter [facility] 10-22-2023 History of Present illness Narrative HISTORY AND PHYSICAL - BREAST COMPLAINT Bria Miryam 1985 REFERRING PHYSICIAN: Pauline Puentes MD CHIEF COMPLAINT: Right nipple discharge HPI: The patient is a 38 year old female with a complaint of nipple discharge from the right breast. The patient has noticed this nipple discharge for the last few months. The discharge occurs when she squeezes the site. She notes that the discharge is sometimes blood or slightly purulent appearing. A mammogram and ultrasound were ordered obtained which demonstrated no abnormalities. The patient denies a history of breast masses. She does not perform a self breast exam routinely. She notes no skin changes. She notes no axillary masses. She notes no family history of breast problems. She notes no significant breast trauma or breast difficulties in the past. The patient had a previous breast abscess drained just lateral to the nipple and had a previous history of nipple piercings The patient has had 8 pregnancies with 6 live births . Her last mammogram was prior to this issue was screening mammography in July of this year. The patient is being seen by me today at the request of Pauline Puentes MD my opinion and advice regarding right nipple discharge. 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 - Left shoulder surgery - repair of slap tear and arthroscopy SURGICAL EXTRACTION ERUPTED TOOTH 03/03/2009 had all top teeth removed TONSILLECTOMY PRIMARY/SECONDARY <AGE 10 Tonsillectomy TUBAL LIGATION, 2011 TYMPANIC MEMB RPR W/WO PREPJ PERFOR PATCH Tympanoplasty WRIST SURGERY HX Right 02/2015 surgery right wrist-ulnar fx Current Outpatient Medications Medication Sig Dispense Refill Nebulizer Accessories misc 1 Each as needed. 12 Each 1 ibuprofen (MOTRIN) 800 mg tablet Take 1 tablet by mouth every 8 hours as needed for pain. Take with food. 30 tablet 0 albuterol HFA (PROVENTIL HFA, VENTOLIN HFA) 90 mcg/actuation inhaler Inhale 2 Puffs as instructed every 4 hours as needed. 18 g 3 metroNIDAZOLE (METROGEL VAGINAL) 0.75 % (37.5mg/5 gram) Vaginal Gel Use 1 applicator vaginally twice per week. 70 g 2 nystatin (MYCOSTATIN) 100,000 unit/mL suspension Take 5 mL by mouth four times daily. 1tsp swish in mouth for several minutes, then swallow (or expectorate) 4 times daily until gone. 200 mL 0 miconazole (MONISTAT 7) 2 % vaginal cream Use 1 Applicator vaginally daily at bedtime. 45 g 0 triamcinolone acetonide (KENALOG) 0.1 % ointment Apply to affected area two times a day. 30 g 0 albuterol (PROVENTIL) 2.5 mg /3 mL (0.083 %) nebulizer solution Use 3 mL via nebulizer every 4 hours as needed for wheezing/shortness of breath. Use over 5-15minutes. 90 mL 3 omeprazole (PRILOSEC) 20 mg capsule TAKE 1 CAPSULE BY MOUTH 1/2 HOUR before breakfast 30 capsule 5 Nebulizers 1 Each as needed. Nebulizer with accessories/tubing 1 Each 0 Selenium Sulfide 2.25 % sham Apply to affected area once daily. 180 mL 3 ubidecarenone (H2Q COQ10 ORAL) Take by mouth. 50mg x1 daily oxyCODONE-acetaminophen (PERCOCET) 5-325 mg tablet Take 1-2 [...] Take 460 mg by mouth once daily. 30 capsule 0 clonazePAM (KLONOPIN) 0.5 mg tablet Take 1 tablet by mouth four times daily as needed. guaiFENesin (MUCINEX) 600 mg 12 hr tablet Take 2 tablets by mouth twice daily. (Patient taking differently: Take 1,200 mg by mouth as needed.) 24 tablet 0 EPINEPHrine (EPIPEN) 0.3 mg/0.3 mL auto-injector Use as directed for allergic reaction. Seek emergent medical care immediately after use. 1 Each 0 pravastatin (PRAVACHOL) 20 mg tablet Take 20 mg by mouth daily at bedtime. nitroglycerin sublingual (NITROQUICK) 0.4 mg SL tablet Dissolve 1 tablet under the tongue every 5 minutes as needed. 25 tablet 3 meclizine (ANTIVERT) 25 mg tab Take 25 mg by mouth twice daily as needed. sertraline (ZOLOFT) 100 mg tablet Take 100 mg by mouth twice daily. Httlwappcgxjsqd-Uzfhdxvqu-FG (BROMFED DM) 2-30-10 mg/5 mL syrup Take 5-10 ml po q6h prn (Patient not taking: Reported on 10/21/2023) 120 mL 0 urinary tract infection test ( ESSENTIALS UTI MISC) Cranberry supplement (Patient not taking: Reported on 10/21/2023) No current facility-administered medications for this visit. ALLERGIES: Bee Venom Protein (Honey Bee), Iv Dye [Iodine], Adenosine, Amoxicillin Trihydrate, Augmentin [Amoxicillin-Pot Clavulanate], Corticosteroids (Glucocorticoids), Feathers, Potassium Clavulanate, Prednisone, Silvadene [Silver Sulfadiazine], and Sulfa (Sulfonamide Antibiotics) PERSONAL HISTORY: Social History Tobacco Use Smoking status: Former Packs/day: 0.50 Years: 14.00 Additional pack years: 0.00 Total pack years: 7.00 Types: Cigarettes Start date: 01/24/2000 Quit date: 07/03/2020 Years since quittin.3 Smokeless tobacco: Former Quit date: 08/18/2018 Vaping Use Vaping Use: Former Start date: 07/03/2020 Substances: Nicotine Substance Use Topics Alcohol use: No Comment: None since 2011 Drug use: Not Currently Types: Marijuana Comment: Not currrently- hx pot and opoids- none since age 15 FAMILY HISTORY: FAMILY HISTORY Problem Relation Age of Onset [...] No Family History Aneurysm No Family History REVIEW OF SYMPTOMS: The review of systems data was entered by the nurse and reviewed by [place] Nursing Notes: Thais Choudhary RN 10/21/2023 9:54 AM Signed REVIEW OF SYSTEMS: General: The patient NOTES fatigue, denies weight loss, denies weight gain, denies feeling hot, and denies feelings of cold. Eyes: The patient denies glaucoma, denies eye injury/surgery, wears glasses or contacts. Ear/Nose/Throat: The patient NOTES allergies, denies hayfever, denies ear infections, and denies bloody noses. Cardiovascular: The patient NOTES chest pain, NOTES heart disease, NOTES high blood pressure,denies cardiac stent, denies prior heart attack, NOTES irregular heart beat, NOTES high cholesterol, denies poor circulation, denies heart failure, other cardiac issues, denies claudication, denies cold feet, denies peripheral arterial stent. Respiratory: The patient denies tuberculosis, denies pneumonia, NOTES frequent cough, denies pulmonary embolism, NOTE shortness of breath, and denies coughing up blood. Gastrointestinal: The patient denies difficulty swallowing, NOTES acid reflux, denies ulcers, denies vomiting, denies jaundice/hepatitis, denies gallbladder problems, denies black or tarry stools, NOTES hemorrhoids, denies bleeding from rectum, denies diverticulitis, denies constipation, denies diarrhea, denies loss of stool control, and denies hernias. Kidney/Bladder: The patient denies kidney stones, denies urine infections, and denies bloody urine. Skin: The patient denies a history of skin cancer, denies bleeding/changing moles, and NOTES a history of skin rash. Neurologic: The patient denies a history of epilepsy/convulsions, denies headaches, denies head/spinal injuries, and denies stroke/TIA. Psychiatric: The patient NOTES psychiatric medications, NOTES depression, and denies voices, denies substance abuse. Endocrine: The patient denies thyroid disorders, denies diabetes, and denies hormonal problems. Hematologic: The patient denies a history of bruising, denies bleeding, and denies anemia, denies blood clots. Infections: The patient denies a history of measles and mumps, denies rheumatic fever, and denies sexually transmitted diseases. Musculoskeletal: The patient denies back pain/injury, NOTES back problems, denies sciatica, NOTES knee/foot trouble, denies arthritis, or denies gout. When was patient's last Mammogram screening? SEPTEMBER 2023 Last Colonoscopy: none Thais Choudhary RN PHYSICAL EXAMINATION: General: The patient is 38 year old female, well nourished, well hydrated in no acute distress. The patient is oriented to time, place, and person. VITALS: Blood pressure 112/72, pulse 99, temperature 36.8 C (98.3 F), height 165.1 cm (5' 5), weight 99.1 kg (218 lb 6.4 oz), last menstrual period 05/05/2023, SpO2 97%. Body mass index is 36.34 kg/m . HEENT: Normal cephalic, ataumatic, pupils are equally round, sclera are anicteric, mucous membranes are moist, oropharynx is clear. Neck has no masses, asymmetry or lymphadenopathy. Thyroid is unremarkable. Respiratory: Clear to auscultation and percussion. Normal respiratory excursion and pattern. Cardiac: Examination is regular rate and rhythm. Abdominal exam: Soft, nontender, with no palpable masses. No hepatosplenomegaly. No palpable hernias. Rectal exam: exam deferred Extremities: no clubbing, cyanosis or edema. No adenopathy. Breast: Visual inspection reveals no retractions, nipple inversion, or skin changes. Palpation of the right breast reveals no dominant or suspicious masses, but multiple benign-feeling nodules. Palpation of the left breast reveals no dominant or suspicious masses, but multiple benign-feeling nodules. Axillary exam demonstrates no suspicious masses in either the left or right axilla. There is no nipple discharge expressed from the left breast. With pressure on the right breast there is a small amount of material expressed. This appeared nonbloody today. This was placed on a glass slide and sent for cytology LABORATORY VALUES: As Noted RADIOLOGIC STUDIES: As Noted Assessment IMPRESSION: Right nipple discharge PLAN: The material from the right nipple was sent for cytology. The patient will be called with her pathology results as this material appeared nonworrisome. Diagnoses: (N64.52) Nipple discharge My findings have been communicated to Dr. Puentes via shared medical record. This note will be forwarded to Dr. Koki Worthington MD. Return to Clinic: The patient is instructed to follow-up with me as needed. Conor Brand MD documented in this encounter [facility] 10-21-2023 Nurse Note REVIEW OF SYSTEMS: General: The patient NOTES fatigue, denies weight loss, denies weight gain, denies feeling hot, and denies feelings of cold. Eyes: The patient denies glaucoma, denies eye injury/surgery, wears glasses or contacts. Ear/Nose/Throat: The patient NOTES allergies, denies hayfever, denies ear infections, and denies bloody noses. Cardiovascular: The patient NOTES chest pain, NOTES heart disease, NOTES high blood pressure,denies cardiac stent, denies prior heart attack, NOTES irregular heart beat, NOTES high cholesterol, denies poor circulation, denies heart failure, other cardiac issues, denies claudication, denies cold feet, denies peripheral arterial stent. Respiratory: The patient denies tuberculosis, denies pneumonia, NOTES frequent cough, denies pulmonary embolism, NOTE shortness of breath, and denies coughing up blood. Gastrointestinal: The patient denies difficulty swallowing, NOTES acid reflux, denies ulcers, denies vomiting, denies jaundice/hepatitis, denies gallbladder problems, denies black or tarry stools, NOTES hemorrhoids, denies bleeding from rectum, denies diverticulitis, denies constipation, denies diarrhea, denies loss of stool control, and denies hernias. Kidney/Bladder: The patient denies kidney stones, denies urine infections, and denies bloody urine. Skin: The patient denies a history of skin cancer, denies bleeding/changing moles, and NOTES a history of skin rash. Neurologic: The patient denies a history of epilepsy/convulsions, denies headaches, denies head/spinal injuries, and denies stroke/TIA. Psychiatric: The patient NOTES psychiatric medications, NOTES depression, and denies voices, denies substance abuse. Endocrine: The patient denies thyroid disorders, denies diabetes, and denies hormonal problems. Hematologic: The patient denies a history of bruising, denies bleeding, and denies anemia, denies blood clots. Infections: The patient denies a history of measles and mumps, denies rheumatic fever, and denies sexually transmitted diseases. Musculoskeletal: The patient denies back pain/injury, NOTES back problems, denies sciatica, NOTES knee/foot trouble, denies arthritis, or denies gout. When was patient's last Mammogram screening? SEPTEMBER 2023 Last Colonoscopy: none Thais Choudhary RN [facility] 10-21-2023 Nurse Note REVIEW OF SYSTEMS: General: The patient NOTES fatigue, denies weight loss, denies weight gain, denies feeling hot, and denies feelings of cold. Eyes: The patient denies glaucoma, denies eye injury/surgery, wears glasses or contacts. Ear/Nose/Throat: The patient NOTES allergies, denies hayfever, denies ear infections, and denies bloody noses. Cardiovascular: The patient NOTES chest pain, NOTES heart disease, NOTES high blood pressure,denies cardiac stent, denies prior heart attack, NOTES irregular heart beat, NOTES high cholesterol, denies poor circulation, denies heart failure, other cardiac issues, denies claudication, denies cold feet, denies peripheral arterial stent. Respiratory: The patient denies tuberculosis, denies pneumonia, NOTES frequent cough, denies pulmonary embolism, NOTE shortness of breath, and denies coughing up blood. Gastrointestinal: The patient denies difficulty swallowing, NOTES acid reflux, denies ulcers, denies vomiting, denies jaundice/hepatitis, denies gallbladder problems, denies black or tarry stools, NOTES hemorrhoids, denies bleeding from rectum, denies diverticulitis, denies constipation, denies diarrhea, denies loss of stool control, and denies hernias. Kidney/Bladder: The patient denies kidney stones, denies urine infections, and denies bloody urine. Skin: The patient denies a history of skin cancer, denies bleeding/changing moles, and NOTES a history of skin rash. Neurologic: The patient denies a history of epilepsy/convulsions, denies headaches, denies head/spinal injuries, and denies stroke/TIA. Psychiatric: The patient NOTES psychiatric medications, NOTES depression, and denies voices, denies substance abuse. Endocrine: The patient denies thyroid disorders, denies diabetes, and denies hormonal problems. Hematologic: The patient denies a history of bruising, denies bleeding, and denies anemia, denies blood clots. Infections: The patient denies a history of measles and mumps, denies rheumatic fever, and denies sexually transmitted diseases. Musculoskeletal: The patient denies back pain/injury, NOTES back problems, denies sciatica, NOTES knee/foot trouble, denies arthritis, or denies gout. When was patient's last Mammogram screening? SEPTEMBER 2023 Last Colonoscopy: none Thais Choudhary RN documented in this encounter [facility] 09-23-2023 History of Present illness Narrative CC: Patient presents with: Sore Throat: Nausea, diarrhea, bodyaches x1 day HPI: Bria Witt is a 38 year old female who presents to the office with complaint of head congestion and sore throat for the past day. Symptoms are staying the same. Associated symptoms includes sore throat. Denies headache, body aches, and ear pain. Treatments tried include nothing so far. with no relief of symptoms. Sick contacts: unknown. History of asthma, frequent episodes of bronchitis, chronic bronchitis, bronchiectasis or COPD: No Smoker: No Seasonal/environmental allergies: No The ROS is otherwise negative. The patient's pmh, medications, allergies, and past visits are reviewed. PHYSICAL EXAM: BP 141/86 Pulse 72 Temp 36.3 C (97.3 F) Resp 18 Wt 100 kg (220 lb 7.4 oz) LMP 05/05/2023 (Exact Date) SpO2 99% BMI 36.69 kg/m General appearance: alert, cooperative, pleasant, in no acute distress Head: Normocephalic Eyes: EOM's intact, conjunctiva pink and moist, no icterus, sclera white, non-injected Ears: Right ear: External ear/canal- Normal, TM - clear with good landmarks. Left ear: External ear/canal- Normal, TM - clear with good landmarks Oropharynx:moist without lesions, No erythema, exudates or tonsillar hypertrophy. Heart: Negative. RRR without obvious murmur, gallop, or rubs. No ectopy. 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 - right arm surgery SHOULDER SURGERY HX Left 01/26/2017 [facility] - Left shoulder surgery - repair [...] [Silver Sulfadiazine], and Sulfa (Sulfonamide Antibiotics) MEDICATIONS Ibdxjjdyqfympyd-Uiqioxgsv-EV (BROMFED DM) 2-30-10 mg/5 mL syrup Take 5-10 ml po q6h prn ibuprofen (MOTRIN) 800 mg tablet Take 1 tablet by mouth every 8 hours as needed for pain. Take with food. albuterol HFA (PROVENTIL HFA, VENTOLIN HFA) 90 mcg/actuation inhaler Inhale 2 Puffs as instructed every 4 hours as needed. metroNIDAZOLE (METROGEL VAGINAL) 0.75 % (37.5mg/5 gram) Vaginal Gel Use 1 applicator vaginally twice per week. urinary tract infection test ([facility] UTI MIS) Cranberry supplement nystatin (MYCOSTATIN) 100,000 unit/mL suspension [...] ORAL) Take by mouth. 50mg x1 daily oxyCODONE-acetaminophen (PERCOCET) 5-325 mg tablet Take 1-2 [...] Take 100 mg by mouth twice daily. FAMILY HISTORY Problem Relation Age [...] 07/03/2020 Years since quittin.2 Smokeless tobacco: Former Quit date: 08/18/2018 Vaping Use Vaping Use: Former Start date: 07/03/2020 Substances: Nicotine Substance Use Topics Alcohol use: No Comment: None since 2011 Drug use: Not Currently Types: Marijuana Comment: Not currrently- hx pot and opoids- none since age 15 ASSESSMENT/PLAN: 1. URI, acute - ICD9: 465.9, ICD10: J06.9 (primary diagnosis) - COVID & INFLUENZA A/B & RSV NAAT, ROUTINE 2. Sore throat - ICD9: 462, ICD10: J02.9 Strep neg . Potential red flag symptoms discussed with the patient. Reviewed appropriate action plan to take if red flag symptoms occur. Patient agreeable to treatment plan. Deric Latham APRN.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 documented in this encounter [facility] 09-14-2023 Note IMPRESSION: INCOMPLE TE: NEEDS ADDITIONAL IMAGING EVALUATION There is no abnormality seen in the right breast to correspond with the bloody discharge from the nipple, however, ultrasound is recommended. LIMITED ULTRASOUND OF RIGHT BREAST: 09/14/2023 RESULT: No prior exams were available for comparison. Real-time ultrasound of the right breast retroareolar was performed. Carrion scale images of the real-time examination were reviewed. IMPRESSION: NEGATIVE There is no sonographic evidence of malignancy. There is no abnormality seen in the right breast to correspond with the bloody discharge from the nipple, however, surgical consult is recommended. Return to annual mammogram screening schedule is recommended. Renata rodriguez/chetna:09/14/2023 09:57:14 Multiple national specialty organizations have released breast cancer screening guidelines for women at average risk for developing breast cancer - guidelines that are based on both evidence and opinion, yet differ on when to start and how often to screen for breast cancer. With representation from Breast Imaging, Internal Medicine, Women's Health, Family Medicine, and Medical/Surgical Oncology, the [facility] has carefully reviewed the data and reached the following consensus: 1) All women should engage in shared decision-making with their providers to decide when to start and how often to screen; 2) All women should have the opportunity to start screening mammography at age 40; 3) For women ages 45-55, we recommend annual screening mammograms; 4) For women ages 55 and over, we support both the transition from an annual to a biennial interval if this aligns more with patient's values and preferences, or continuation with annual screening; 5) All women should discuss with their providers when to stop screening mammograms. Assembler Unit(s): Sweetie Fenton, [facility]; Karol Gregg, [facility] OVERALL STUDY BIRADS: 1 Negative Steel Pourer Helper: Chetna Transcribe Date/Time: Sep 14 2023 9:04A Dictated by: RENATA DE LUNA MD This examination was interpreted and the report reviewed and electronically signed by: RENATA DE LUNA MD on Sep 14 2023 9:57AM [facility] DIVISION OF RADIOLOGY 09-14-2023 Note IMPRESSION: INCOMPLE TE: NEEDS ADDITIONAL IMAGING EVALUATION There is no abnormality seen in the right breast to correspond with the bloody discharge from the nipple, however, ultrasound is recommended. LIMITED ULTRASOUND OF RIGHT BREAST: 09/14/2023 RESULT: No prior exams were available for comparison. Real-time ultrasound of the right breast retroareolar was performed. Carrion scale images of the real-time examination were reviewed. IMPRESSION: NEGATIVE There is no sonographic evidence of malignancy. There is no abnormality seen in the right breast to correspond with the bloody discharge from the nipple, however, surgical consult is recommended. Return to annual mammogram screening schedule is recommended. Renata rodriguez/chetna:09/14/2023 09:57:14 Multiple national specialty organizations have released breast cancer screening guidelines for women at average risk for developing breast cancer - guidelines that are based on both evidence and opinion, yet differ on when to start and how often to screen for breast cancer. With representation from Breast Imaging, Internal Medicine, Women's Health, Family Medicine, and Medical/Surgical Oncology, the [facility] has carefully reviewed the data and reached the following consensus: 1) All women should engage in shared decision-making with their providers to decide when to start and how often to screen; 2) All women should have the opportunity to start screening mammography at age 40; 3) For women ages 45-55, we recommend annual screening mammograms; 4) For women ages 55 and over, we support both the transition from an annual to a biennial interval if this aligns more with patient's values and preferences, or continuation with annual screening; 5) All women should discuss with their providers when to stop screening mammograms. Assembler Unit(s): Sweetie Fenton, [facility]; Karol Gregg, [facility] OVERALL STUDY BIRADS: 1 Negative Steel Pourer Helper: Chetna Transcribe Date/Time: Sep 14 2023 9:04A Dictated by : RENATA DE LUNA MD This examination was interpreted and the report reviewed and electronically signed by: RENATA DE LUNA MD on Sep 14 2023 9:57AM [facility] DIVISION OF RADIOLOGY 09-14-2023 History of Present illness Narrative Radiology Service Progress Note PATIENT NAME: Bria Witt DATE OF SERVICE: September 14, 2023 TIME: 2:13 PM PATIENT IDENTITY VERIFICATION COMPLETED USING TWO (2) IDENTIFIERS: Name and Date of confirmed by patient verbally. FALL SCREENING: Has the patient had 2 falls in the last year or 1 fall with injury or currently using an Ambulatory Assistive Device (Walker, Cane, Wheelchair, Crutches, etc.)? No PATIENT GENDER DATA: Female. status: : No status: NO. PATIENT RELEVANT IMPLANT DATA REVIEWED: Not Applicable PATIENT PRESENTS WITH AN IMPLANTABLE OR ATTACHED SECTION LABORER: No RADIOLOGY DEPARTMENT: Ultrasound PERIPHERAL IV DATA: Not applicable SIGNED BY: Sweetie Fenton RDMS September 14, 2023 2:13 PM documented in this encounter [facility] 09-07-2023 History of Present illness Narrative Bria Witt is a 38 year old female who presents for problem visit nipple discharge. HPI: Presents today for nipple discharge in the last three weeks. Had area on right breast that was sore and red that had small amount of blood then pus come out. Nothing since initial time but wanted to get checked. Denies any new medications, trauma. No history of breast or ovarian cancers. 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 - right arm surgery SHOULDER SURGERY HX Left 01/26/2017 [facility] - Left shoulder surgery - repair [...] date: 01/24/2000 Quit date: 07/03/2020 Years since quittin.1 Smokeless tobacco: Former Quit date: 08/18/2018 Vaping Use Vaping Use: Former Start date: 07/03/2020 Substances: Nicotine Substance Use Topics Alcohol use: No Comment: None since 2011 Drug use: Not Currently Types: Marijuana Comment: Not currrently- hx pot and opoids- none since age 15 Current Outpatient Medications Medication Sig Kaawtrexwttuths-Bhqjssdsp-CO (BROMFED DM) 2-30-10 mg/5 mL syrup Take 5-10 ml po q6h prn ibuprofen (MOTRIN) 800 mg tablet Take 1 tablet by mouth every 8 hours as needed for pain. Take with food. albuterol HFA (PROVENTIL HFA, VENTOLIN HFA) 90 mcg/actuation inhaler Inhale 2 Puffs as instructed every 4 hours as needed. metroNIDAZOLE (METROGEL VAGINAL) 0.75 % (37.5mg/5 gram) Vaginal Gel Use 1 applicator vaginally twice per week. urinary tract infection test ([facility] UTI MIS) Cranberry supplement nystatin (MYCOSTATIN) 100,000 unit/mL suspension [...] ORAL) Take by mouth. 50mg x1 daily oxyCODONE-acetaminophen (PERCOCET) 5-325 mg tablet Take 1-2 [...] for this visit. Allergies As of Date: 09/07/2023 Allergen Noted Reaction BEE VENOM PROTEIN (HONEY BEE) 05/30/2018 Anaphylaxis IV DYE [IODINE] 05/03/2023 Anaphylaxis ADENOSINE 05/30/2018 Intolerance AMOXICILLIN TRIHYDRATE 09/11/2021 Vomiting AUGMENTIN [AMOXICILLIN-POT CLAVUL*09/21/2010 Vomiting CORTICOSTEROIDS (GLUCOCORTICOIDS) 05/30/2018 Intolerance FEATHERS 05/30/2018 Intolerance POTASSIUM CLAVULANATE 05/30/2018 GI Upset PREDNISONE 01/01/2010 Swelling SILVADENE [SILVER SULFADIAZINE] 01/17/2008 Intolerance SULFA (SULFONAMIDE ANTIBIOTICS) 02/20/2008 GI Upset Fully Assessed 09/07/2023 REVIEW OF SYSTEMS Abdomen: No bloating, early satiety, indigestion, or increased flatulence. No abdominal pain, nausea, vomiting, diarrhea, or constipation. Bladder: No dysuria, gross hematuria, urinary frequency, urinary urgency, or incontinence. Breast: No breast lumps, nipple d/c, overlying skin changes, redness or skin retraction. Expanded ROS: N/A Allergies and current medication updated:Yes EXAM: BP 116/72 Wt 220 lb (99.8kg) LMP 05/05/2023 GENERAL: pleasant, female in no apparent distress HEENT: Normocephalic and atraumatic NECK: Supple and full range of motion BREAST: soft, symmetric, no dominant mass, normal nipple-areolar complex, no lymphadenopathy, no nipple discharge, and small healing scabbed area on tip of nipple and side. Right breast near nipple tender with palpation. CHEST: Normal inspiratory effort NEURO: alert and oriented x3,exam grossly non-focal EXTREMITIES: normal ASSESSMENT AND PLAN: 1. Nipple discharge - ICD9: 611.79, ICD10: N64.52 - US BREAST LTD RIGHT - BELEN DIAGNOSTIC BILATERAL - PROLACTIN - No current nipple discharge, pictures presented show small pin drop size of blood and pus coming from area on nipples, not consistent with nipple discharge. Small ulceration likely pimple that expressed. Will complete testing but reassurance offered and likely normal. Isabel Morales APRN.CNM documented in this encounter [facility] 08-16-2023 History of Present illness Narrative This note was created using [employer]. Samantha Witt is a 38 year old female. 38 year old female with PMH hyperlipidemia, PVC's, HTN, GERD, and HS presents for My hidradenitis suppurativa is acting up. Acute onset of symptoms approximately one week ago Pubic area Painful lumps Squeezing pus out of them Denies fever or chills Denies malaise or fatigue Last outbreak was a year ago The history is provided by the patient. No language translator was used. Abscess This is a recurrent problem. The current episode started in the past 7 days. The problem occurs constantly. The problem has been gradually worsening. Pertinent negatives include no abdominal pain, anorexia, arthralgias, change in bowel habit, chest pain, chills, congestion, coughing, diaphoresis, fatigue, fever, headaches, joint swelling, myalgias, nausea, neck pain, numbness, rash, sore throat, swollen glands, urinary symptoms, vertigo, visual change, vomiting or weakness. Nothing aggravates the symptoms. She has tried nothing for the symptoms. The treatment provided no relief. 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 - right arm surgery SHOULDER SURGERY HX Left 01/26/2017 [facility] - Left shoulder surgery - repair [...] [Silver Sulfadiazine], and Sulfa (Sulfonamide Antibiotics) MEDICATIONS Yykwoqxsutdvqsv-Okeumiciq-VI (BROMFED DM) 2-30-10 mg/5 mL syrup Take 5-10 ml po q6h prn ibuprofen (MOTRIN) 800 mg tablet Take 1 tablet by mouth every 8 hours as needed for pain. Take with food. albuterol HFA (PROVENTIL HFA, VENTOLIN HFA) 90 mcg/actuation inhaler Inhale 2 Puffs as instructed every 4 hours as needed. metroNIDAZOLE (METROGEL VAGINAL) 0.75 % (37.5mg/5 gram) Vaginal Gel Use 1 applicator vaginally twice per week. urinary tract infection test ([facility] UTI MISC) Cranberry supplement nystatin (MYCOSTATIN) 100,000 [...] ORAL) Take by mouth. 50mg x1 daily oxyCODONE-acetaminophen (PERCOCET) 5-325 mg tablet Take 1-2 [...] Take 100 mg by mouth twice daily. doxycycline (VIBRA-TABS) 100 mg tablet Take 1 tablet by mouth two times a day for 7 days. FAMILY HISTORY Problem Relation Age of [...] date: 01/24/2000 Quit date: 07/03/2020 Years since quittin.1 Smokeless tobacco: Former Quit date: 08/18/2018 Vaping Use Vaping Use: Former Start date: 07/03/2020 Substances: Nicotine Substance Use Topics Alcohol use: No Comment: None since 2011 Drug use: Not Currently Types: Marijuana Comment: Not currrently- hx pot and opoids- none since age 15 Review of Systems Constitutional: Negative for chills, diaphoresis, fatigue and fever. HENT: Negative for congestion and sore throat. Eyes: Negative for pain, discharge and itching. Respiratory: Negative for cough. Cardiovascular: Negative for chest pain. Gastrointestinal: Negative for abdominal pain, anorexia, change in bowel habit, nausea and vomiting. Musculoskeletal: Negative for arthralgias, joint swelling, myalgias and neck pain. Skin: Negative for rash. Allergic/Immunologic: Negative for environmental allergies, food allergies and immunocompromised state. Neurological: Negative for vertigo, weakness, numbness and headaches. Hematological: Negative for adenopathy. Does not bruise/bleed easily. Psychiatric/Behavioral: Negative for agitation and behavioral problems. Objective BP 118/76 Pulse 72 Temp 37.1 C (98.8 F) (Tympanic) Resp 18 Wt 102.6 kg (226 lb 3.1 oz) LMP 05/05/2023 (Exact Date) SpO2 97% BMI 37.64 kg/m Physical Exam Vitals and nursing note reviewed. Constitutional: General: She is not in acute distress. Appearance: Normal appearance. She is normal weight. She is not ill-appearing, toxic-appearing or diaphoretic. HENT: Head: Normocephalic and atraumatic. Right Ear: Ear canal and external ear normal. Left Ear: Ear canal and external ear normal. Nose: Nose normal. No congestion or rhinorrhea. Mouth/Throat: Mouth: Mucous membranes are moist. Pharynx: No oropharyngeal exudate or posterior oropharyngeal erythema. Eyes: General: Right eye: No discharge. Left eye: No discharge. Extraocular Movements: Extraocular movements intact. Conjunctiva/sclera: Conjunctivae normal. Pupils: Pupils are equal, round, and reactive to light. Cardiovascular: Rate and Rhythm: Normal rate and regular rhythm. Pulses: Normal pulses. Heart sounds: Normal heart sounds. No murmur heard. No friction rub. Pulmonary: Effort: Pulmonary effort is normal. No respiratory distress. Breath sounds: Normal breath sounds. No stridor. No wheezing, rhonchi or rales. Chest: Chest wall: No tenderness. Abdominal: General: Abdomen is flat. There is no distension. Palpations: Abdomen is soft. There is no mass. Tenderness: There is no abdominal tenderness. There is no right CVA tenderness, left CVA tenderness, guarding or rebound. Hernia: No hernia is present. Musculoskeletal: General: No swelling, tenderness, deformity or signs of injury. Normal range of motion. Cervical back: Normal range of motion and neck supple. No rigidity. Right lower leg: No edema. Left lower leg: No edema. Lymphadenopathy: Cervical: No cervical adenopathy. Skin: General: Skin is warm and dry. Capillary Refill: Capillary refill takes less than 2 seconds. Coloration: Skin is not jaundiced or pale. Findings: No bruising, erythema, lesion or rash. Comments: Suprapic region noted to have deep seated nodule. Surrounding erythema Neurological: General: No focal deficit present. Mental Status: She is alert and oriented to person, place, and time. Cranial Nerves: No cranial nerve deficit. Sensory: No sensory deficit. Motor: No weakness. Coordination: Coordination normal. Gait: Gait normal. Psychiatric: Mood and Affect: Mood normal. Behavior: Behavior normal. Thought Content: Thought content normal. Judgment: Judgment normal. Assessment and Plan ASSESSMENT/PLAN: 1. 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 she has noticed anal pain with occasional bleeding for a prolonged period of time. She notes that this has been occurring for least the last few months. She notes pain when sitting and pain especially when she is working out the gym on a smaller size seat. She occasionally notes blood on the toilet paper and in her underwear. She denies true pain with bowel movements. While she denies diarrhea she notes she has slightly looser stools that are not always well-formed. She has between 1 and 4 bowel movements per day. She had thrombosed hemorrhoids over 10 years previously when she was . She has not had additional anal surgery procedures aside to the excision of the thrombosed hemorrhoid. The patient has tried sitz bath's with Epsom salts and uses a fiber gummy supplement. When she experiences the pain she notes that it occurs at the 12 and 6 o'clock position The patient is being seen by me today at the request of Adele Costa APRN.CNP my opinion and advice regarding anal symptoms. 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 - right arm surgery SHOULDER SURGERY HX Left 01/26/2017 [facility] - Left shoulder surgery - repair of slap tear and arthroscopy SURGICAL EXTRACTION ERUPTED TOOTH 03/03/2009 had all top teeth removed TONSILLECTOMY PRIMARY/SECONDARY <AGE 12 Tonsillectomy TUBAL LIGATION, 2011 TYMPANIC MEMB RPR W/WO PREPJ PERFOR PATCH Tympanoplasty WRIST SURGERY HX Right 02/2015 surgery right wrist-ulnar fx CURRENT MEDICATIONS: Current Outpatient Medications Medication Sig Dispense Refill metroNIDAZOLE (METROGEL VAGINAL) 0.75 % (37.5mg/5 gram) Vaginal Gel Use 1 applicator vaginally twice per week. 70 g 2 urinary tract infection test ( [facility] UTI MISC) Cranberry supplement nystatin (MYCOSTATIN) 100,000 unit/mL suspension Take 5 mL by mouth four times daily. 1tsp swish in mouth for several minutes, then swallow (or expectorate) 4 times daily until gone. 200 mL 0 miconazole (MONISTAT 7) 2 % vaginal cream Use 1 Applicator vaginally daily at bedtime. 45 g 0 triamcinolone acetonide (KENALOG) 0.1 % ointment Apply to affected area two times a day. 30 g 0 albuterol (PROVENTIL) 2.5 mg /3 mL (0.083 %) nebulizer solution Use 3 mL via nebulizer every 4 hours as needed for wheezing/shortness of breath. Use over 5-15minutes. 90 mL 3 omeprazole (PRILOSEC) 20 mg capsule TAKE 1 CAPSULE BY MOUTH 1/2 HOUR before breakfast 30 capsule 5 Nebulizers 1 Each as needed. Nebulizer with accessories/tubing 1 Each 0 Selenium Sulfide 2.25 % sham Apply to affected area once daily. 180 mL 3 ubidecarenone (H2Q COQ10 ORAL) Take by mouth. 50mg x1 daily albuterol HFA (PROVENTIL HFA, VENTOLIN HFA) 90 mcg/actuation inhaler Inhale 2 Puffs as instructed every 4 hours as needed. 18 g 3 oxyCODONE-acetaminophen (PERCOCET) 5-325 mg tablet Take 1-2 [...] Take 460 mg by mouth once daily. 30 capsule 0 clonazePAM (KLONOPIN) 0.5 mg tablet Take 1 tablet by mouth four times daily as needed. guaiFENesin (MUCINEX) 600 mg 12 hr tablet Take 2 tablets by mouth twice daily. (Patient taking differently: Take 1,200 mg by mouth as needed.) 24 tablet 0 EPINEPHrine (EPIPEN) 0.3 mg/0.3 mL auto-injector Use as directed for allergic reaction. Seek emergent medical care immediately after use. 1 Each 0 pravastatin (PRAVACHOL) 20 mg tablet Take 20 mg by mouth daily at bedtime. nitroglycerin sublingual (NITROQUICK) 0.4 mg SL tablet Dissolve 1 tablet under the tongue every 5 minutes as needed. 25 tablet 3 meclizine (ANTIVERT) 25 mg tab Take 25 mg by mouth twice daily as needed. sertraline (ZOLOFT) 100 mg tablet Take 100 mg by mouth twice daily. No current facility-administered medications for this visit. ALLERGIES: Bee Venom Protein (Honey Bee), Iv Dye [Iodine], Adenosine, Amoxicillin Trihydrate, Augmentin [Amoxicillin-Pot Clavulanate], Corticosteroids (Glucocorticoids), Feathers, Potassium Clavulanate, Prednisone, Silvadene [Silver Sulfadiazine], and Sulfa (Sulfonamide Antibiotics) PERSONAL HISTORY: Social History Tobacco Use Smoking status: Former Packs/day: 0.50 Years: 14.00 Additional pack years: 0.00 Total pack years: 7.00 Types: Cigarettes Start date: 01/24/2000 Quit date: 07/03/2020 Years since quittin.0 Smokeless tobacco: Former Quit date: 08/18/2018 Vaping Use Vaping Use: Former Start date: 07/03/2020 Substances: Nicotine Substance Use Topics Alcohol use: No Comment: None since 2011 Drug use: Not Currently Types: Marijuana Comment: Not currrently- hx pot and opoids- none since age 15 FAMILY HISTORY: FAMILY HISTORY Problem Relation Age of Onset [...] No Family History Aneurysm No Family History REVIEW OF SYMPTOMS: The review of systems data was entered by the nurse and reviewed by ky Nursing Notes: Leonela Sandoval RN 07/15/2023 8:38 AM Signed REVIEW OF SYSTEMS: General: The patient NOTES fatigue, denies weight loss, denies weight gain, denies feeling hot, and denies feelings of cold. Eyes: The patient denies glaucoma, denies eye injury/surgery, wears glasses or contacts. Ear/Nose/Throat: The patient NOTES allergies, denies hayfever, denies ear infections, and denies bloody noses. Cardiovascular: The patient denies chest pain, NOTES heart disease, NOTES high blood pressure,denies cardiac stent, denies prior heart attack, NOTES irregular heart beat, NOTES high cholesterol, denies poor circulation, NOTES heart failure, other cardiac issues, denies claudication, denies cold feet, denies peripheral arterial stent. Respiratory: The patient denies tuberculosis, denies pneumonia, NOTES frequent cough, denies pulmonary embolism, denies shortness of breath, and denies coughing up blood. Gastrointestinal: The patient denies difficulty swallowing, NOTES acid reflux, denies ulcers, denies vomiting, denies jaundice/hepatitis, denies gallbladder problems, denies black or tarry stools, NOTES hemorrhoids, denies bleeding from rectum, denies diverticulitis, denies constipation, denies diarrhea, denies loss of stool control, and denies hernias. Kidney/Bladder: The patient denies kidney stones, denies urine infections, and denies bloody urine. Skin: The patient denies a history of skin cancer, denies bleeding/changing moles, and NOTES a history of skin rash. Neurologic: The patient denies a history of epilepsy/convulsions, denies headaches, denies head/spinal injuries, and denies stroke/TIA. Psychiatric: The patient NOTES psychiatric medications, NOTES depression, and denies voices, denies substance abuse. Endocrine: The patient denies thyroid disorders, denies diabetes, and denies hormonal problems. Hematologic: The patient denies a history of bruising, denies bleeding, and denies anemia, denies blood clots. Infections: The patient denies a history of measles and mumps, denies rheumatic fever, and denies sexually transmitted diseases. Musculoskeletal: The patient NOTES back pain/injury, NOTES back problems, NOTES sciatica, denies knee/foot trouble, denies arthritis, or denies gout. When was patient's last Mammogram screening? Unknown Last Colonoscopy: Never Leonela Sandoval RN PHYSICAL EXAMINATION: General: The patient is 38 year old female, well nourished, well hydrated in no acute distress. The patient is oriented to time, place, and person. VITALS: Blood pressure 116/60, pulse 111, temperature 36.6 C (97.9 F), height 165.1 cm (5' 5), weight 102.5 kg (226 lb), last menstrual period 05/05/2023, SpO2 99%. Body mass index is 37.61 kg/m . HEENT: exam deferred Respiratory: exam deferred Cardiac: exam deferred. Abdominal exam: exam deferred Rectal exam: External exam -no obvious sentinal pile. An anterior fissure is visualized, she has no current posterior midline fissure did. She has lateral external hemorrhoids most significantly in the left lateral position . Digital rectal exam - deferred Extremities: exam deferred Other: LABORATORY VALUES: As Noted RADIOLOGIC STUDIES: As Noted Assessment IMPRESSION: ANAL FISSURE PLAN: Bria is instructed to perform sitz baths twice a day and after each bowel movement. Place dibucaine ointment on anus as needed and before all bowel movements. Keep stools soft and avoid straining if possible. Diltaizem ointment is prescribed, use twice a day. Note that this is different fron the dibucaine or pain ointment that you should use as often as needed Return if symptoms fail to improve. We discussed that regulation of stool is montoya to healing of the fissure. Most fissures heal with these measures. Return if symptoms fail to improve. Diagnoses: (K60.2) Anal fissure (primary encounter diagnosis) (K64.9) Hemorrhoids, unspecified hemorrhoid type My findings have been communicated to [place] via shared medical record. This note will be forwarded to Koki Worthington MD. Return to Clinic: The patient is instructed to follow-up with me as needed. Conor Brand MD documented in this encounter [facility] 07-15-2023 Instructions Conor Brand MD - 07/15/2023 9:12 AM EST The following instructions are important for you related to your office visit today with the [facility]. INSTRUCTIONS FOR AN ANAL FISSURE You have an anal fissure. An anal fissure is a small tear at at the edge of the anus. It is usually caused by straining with bowel movements, but sometime it occurs during periods of loose stools or diarrhea. 70% of the time, anal fissures will heal will regulation of the stools and conservative measures. Regulation of the bowel habits is most important - The fissure will not heal if there is continued straining. I usually recommend fiber for initial regularion. Add Miralax - now available over the counter, if fiber alone isn't helping the constipation. Healing of the fissure will not occur until bowel regulation is achieved I recommend that you avoid spicy foods and perform sitz baths three to four times per day and after bovel movements. A sitz bath is drawing luke warm water in the bathtub and soaking. The purpose is to relax the sphincter and rinse the anal area. DO NOT ADD EPSOM SALTS OR OTHER INGREDIENTS THIS CAN INCREASE THE BURNING. I will recommend a topical pain ointment, usually dibucaine or proctocream With each bowel movement, I recommend placing the topcial pain ointment prior to the bowel movements and use baby wipes and perform a sitz bath after each bowel movement. Dibucaine can be used between times as needed for anal pain. It the above measures are not helping within one week, call the office, and we may prescribe Diltiazem ointment. ( this is different from Dibucaine). If prescribed, it should be applied to the anal area twice a day. If you note any difficulties or concerns, you should contact our office immediately. If you note any additional difficulties, questions, or concerns, you should contact our office immediately @ [phone] and ask to be transferred to the General Surgery department. documented in this encounter [facility] 07-15-2023 Nurse Note REVIEW OF SYSTEMS: General: The patient NOTES fatigue, denies weight loss, denies weight gain, denies feeling hot, and denies feelings of cold. Eyes: The patient denies glaucoma, denies eye injury/surgery, wears glasses or contacts. Ear/Nose/Throat: The patient NOTES allergies, denies hayfever, denies ear infections, and denies bloody noses. Cardiovascular: The patient denies chest pain, NOTES heart disease, NOTES high blood pressure,denies cardiac stent, denies prior heart attack, NOTES irregular heart beat, NOTES high cholesterol, denies poor circulation, NOTES heart failure, other cardiac issues, denies claudication, denies cold feet, denies peripheral arterial stent. Respiratory: The patient denies tuberculosis, denies pneumonia, NOTES frequent cough, denies pulmonary embolism, denies shortness of breath, and denies coughing up blood. Gastrointestinal: The patient denies difficulty swallowing, NOTES acid reflux, denies ulcers, denies vomiting, denies jaundice/hepatitis, denies gallbladder problems, denies black or tarry stools, NOTES hemorrhoids, denies bleeding from rectum, denies diverticulitis, denies constipation, denies diarrhea, denies loss of stool control, and denies hernias. Kidney/Bladder: The patient denies kidney stones, denies urine infections, and denies bloody urine. Skin: The patient denies a history of skin cancer, denies bleeding/changing moles, and NOTES a history of skin rash. Neurologic: The patient denies a history of epilepsy/convulsions, denies headaches, denies head/spinal injuries, and denies stroke/TIA. Psychiatric: The patient NOTES psychiatric medications, NOTES depression, and denies voices, denies substance abuse. Endocrine: The patient denies thyroid disorders, denies diabetes, and denies hormonal problems. Hematologic: The patient denies a history of bruising, denies bleeding, and denies anemia, denies blood clots. Infections: The patient denies a history of measles and mumps, denies rheumatic fever, and denies sexually transmitted diseases. Musculoskeletal: The patient NOTES back pain/injury, NOTES back problems, NOTES sciatica, denies knee/foot trouble, denies arthritis, or denies gout. When was patient's last Mammogram screening? Unknown Last Colonoscopy: Never Leonela Sandoval RN documented in this encounter [facility] 06-24-2023 Miscellaneous Notes Patient notified Did not [...] Nga Hopkins, KIMBERLY documented in this encounter [facility] 06-17-2023 Miscellaneous Notes MyChart sent regarding negative cultures. 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 - right arm surgery SHOULDER SURGERY HX Left 01/26/2017 [facility] - Left shoulder surgery - repair [...] external genitalia normal, normal Bartholin's glands, urethra, [place]'s glands, no cervical lesions, good vaginal support, [...] measures - CONSULT TO GASTROENTEROLOGY Adele Costa APRN.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 Medical Decision Making: Problems: Moderate: New problem with uncertain prognosis and 1+ chronic illnesses with change Data: Unique test(s) ordered: 3+ Risk: Minimal: Minimal risk from testing/treatment Medical Decision Making Level: 4 - Moderate documented in this encounter [facility] 06-16-2023 Miscellaneous Notes Spoke with patient. Recently treated for BV. Symptoms cleared initially. Scheduled patient an appointment today. Nga Hopkins, RN Patient called she has another BV infection can you call her in something to the pharmacy? Patient can be reached at [phone] Please advise documented in this encounter [facility] 05-05-2023 Discharge summary Note Date/Time May 05, 2023 11:59am [facility] [address] [place] [address]. [address] [place] [address] / REHABILITATION SERVICES DISCHARGE SUMMARY MR#: [id number] Acct: [id number] Name: BRIA WITT Rep #: [id number] : 1985 37 From: Hammad Witt Referring Dr.: HOLLI Conn Status: REG RCR Insurance: [facility] SELF PAY INSURANCE Discharge Summary D/C summary: It has been my pleasure to treat BRIA WITT referred by HOLLI Conn, with the diagnosis of B patellofemoral syndrome for a total of 17 visit(s). Discharge Date: 05/05/23 Please see the following information for a summary of their discharge status. Subjective Subjective: Pt. reports overall doing much better. Pt. is I with her HEP in gym.Pt. reports overall being 85% better overall. Pain L knee: Pain Intensity (Out of 10): 0 R knee: Pain Intensity (Out of 10): 0 Overall Improvement % Improvement: 85 Objective Objective/Function: Pt. is now I with HEP for BLE strengthening in the gym. Pt. is ready to be DC from PT at this point in time. She has symmetrical strength. No issues with walking. Pt. reports being much stronger overall. She has 5/5 strength throughout BLEs. I gave her an exercise log and we reviewed all of her exercises. Pt. is I with all exercises currently. Goals Goal 1:: Pt. to be I with HEP. Goal Progress: Goal Met Goal 2:: LTG: Pt. to have increased B quad, HS and glute medius strength by 10# throughout to increase stability with all functional mobility. Goal Progress: Goal Met Goal 3:: LTG: Pt. to have negative obers test and normal HS length in 90/90 positioning allowing for proper knee positioning during all recreational activities. Goal Progress: Goal Met Goal 4:: LTG: Pt. to be able to walking 500 meters in 6 MWT without increase in symptoms indicating increased tolerance to functional mobility. Goal Progress: Goal Met Goal 5:: LTG: Pt. to negotiate steps with 1 HR with reciprocal pattern without increase in B knee pain. Goal Progress: Goal Met Plan Plan: Pt. to be DC from PT. D/C Information Discharge Comments: Pt. will be DC from PT at this point in time. Pt has progressed with her strengthening of BLEs. Pt. is now I with her program and will be DC to gym exercises at this point in time. d/c sentence: If there are questions or concerns regarding this patient's physical therapy, please feel free to call me at [phone]. Thank you for the referral of thispatient. Sincerely, Hammad Asif, PAMELAT Balance/Gait/Functional tests Balance/Special Test Scores Lower Extremity Functional Score: 59 6 Minute Walk Test: 383 meters. Improvement % Improvement: 85 <Electronically signed by Hammad Asif DPT> 05/05/23 1159 CC: Dr. Koki Worthington MD; HOLLI Conn ~ CLS Signed [facility] Work Phone: 1(883) 338-720311-08-2023 Miscellaneous Notes* Telephone Encounter - Briana Leggett APRN.CNP - 03/16/2023 1:29 PM EST Had refilled what was previously ordered. I have changed prescription to adult dose and sent. Briana Older, RIDES ATTENDANT.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 * Telephone Encounter - Maryjane Marinelli LPN - 03/15/2023 10:59 AM EST The office completed a PA for albuterol [...] pt at this time. [facility] Miscellaneous Notes* Telephone Encounter - Nga Hopkins RN - 03/11/2023 9:57 AM EDT Zaizher.im message sent. Will call if not viewed. * Telephone Encounter - Eileen Morales APRN.CNP - 03/11/2023 9:35 AM EDT DM pt BV positive. To treat with Flagyl 500mg PO BID for 7 days. 1) No alcohol during treatment and for 24 hours after last dose. 2) No intercourse during treatment. 3) Probiotic by mouth once daily for 30 days or as needed. Eileen Morales APRN.VELVET [facility] Miscellaneous Notes* Telephone Encounter - Zee Bryson - 02/28/2023 3:48 PM EDT Patient has been identified by name and [...] Thank you. Zee Bryson. [facility] Miscellaneous Notes* Telephone Encounter - Zee Bryson - 02/28/2023 12:19 PM EDT Patient has been identified by name and [...] Thank you. Zee Bryson. [facility] Miscellaneous Notes* Telephone Encounter - Fatou Begum LPN - 11/11/2022 3:24 PM EDT Spoke with pt and information listed below given. Pt verbalizes understanding. Fatou Begum LPN * Telephone Encounter - Briana Leggett APRN.CNP - 11/11/2022 9:08 AM EDT We have not prescribed nadolol since 2018. She needs to contact the prescriber of this medication for refills. Thank you Briana Leggett APRN.VELVET * Telephone Encounter - Jeanette Brooke LPN - 11/11/2022 8:50 AM EDT Patient has been identified by name and date of : Yes Patient phones for refill(s): Requested Prescriptions Pending Prescriptions Disp Refills nadolol (CORGARD) 20 mg tablet Sig: Take 0.5 tablets by mouth twice daily. Date of last office visit in primary care: 08/04/2022 Next appointment scheduled 02/04/2023 Please advise. Thank you. Jeanette Brooke LPN [facility] Discharge summary Author Tamir Quesada [facility] November 01, 2022 11:16am Note Date/Time November 01, 2022 11:1 6am [facility] [address] [place] [address] [address] [place] [id number] / REHABILITATION SERVICES DISCHARGE SUMMARY MR#: [id number] Acct: [id number] Name: BRIA WITT Rep #: [id number] : 1985 37 From: Tamir Quesada PT, ATC Referring DrÓscar: HOLLI Hou Status: REG RCR Insurance: [facility] SELF PAY INSURANCE It has been my pleasure to treat BRIA WITT referred by HOLLI Longo, with the diagnosis of L knee pain for a total of 6 visit(s). Discharge Date: Please see the following information for a summary of their discharge status. Subjective: I am not getting any better L knee Pain Intensity (Out of 10): 3 % Improvement: 95 Objective/Function: L knee pain ranges from 3-8/10. L knee ROM: 0-135 degrees. L knee MMT: flex= 32, ext= 52. ROM and strength are excellent, pain is not changed Goal 1:: Decrease L knee pain x 50% to aid with sleep Goal Progress: Not Progressing Goal 2:: Increase L knee flexion ROM x 5-10 degrees to aid with squatting type of activity Goal Progress: Goal Met Goal 3:: Pt will be able to negotiate a flight of stairs reciprocally without UE's to aid with community mobility Goal Progress: Goal Met Goal 4:: I with HEP Goal Progress: Goal Met Plan: Discontinue, RTD If there are questions or concerns regarding this patient's physical therapy, please feel free to call me at [phone]. Thank you for the referral of thispatient. Sincerely, Tamir Quesada, PT, ATC Balance/Gait/Functional tests - Balance/Special Test Scores Lower Extremity Functional Score: 29 <Electronically signed by Tamir Quesada PT, ATC> 11/01/22 1116 CC: HOLLI Hou; Dr. Koki Worthington MD ~ [facility] Signed [facility] Work Phone: 1(330) 225-667805-30-2023 Miscellaneous Notes* Telephone Encounter - Zee Chavez LPN - 10/05/2022 3:19 PM EDT Patient has been identified by name and [...] you. Zee Chavez LPN [facility]23 Miscellaneous Notes* Telephone Encounter - Raven Mina Ma - 08/06/2022 10:01 AM EDT Left message to return. * Telephone Encounter - Briana Leggett APRN.CNP - 08/06/2022 7:53 AM EDT I reviewed the ortho notes and am hesitant to order physical therapy until the US is completed as this looks for possible torn muscles and other concerns that would need identified before therapy. Thank you Briana Leggett APRN.CNP * Telephone Encounter - Oumar Barahona RN - 08/05/2022 9:47 AM EDT Patient phoned to report Dr. Rangel office cancelled the appt, stating they are unable to help her with the shoulder issue, but asking what about the scapula issue? Reports she wanted a 3rd opinion from Dr. Rangel. Reports she is having a pinching sensation in her scapula since last year. Given provider's message below. Patient states Dr. Rangel nurse already informed her [facility] does not do MSK US. States she is feeling very frustrated. Asking Tania Warren, to please advise, states she is at a loss. States noone has even asked her to do PT. * Telephone Encounter - Briana Leggett APRN.CNP - 08/04/2022 6:49 PM EDT Please let patient know she needs to get MSK ultrasound completed as ordered. If this is a transportation issue can [facility] perform this? Thank you Briana Leggett APRN.CNP * Telephone Encounter - Gill Arias RN - 08/04/2022 4:29 PM EDT Patient returned phone call. States appointment is for R arm pain that she has already been seen byDr. Staton and Dr. Sheridan for. Upon review of chart R arm pain was determined not to be surgical/orthopaedic in nature and patient was to be referred back to PCP. Furthermore Dr. Sheridan ordered an MSK Ultrasound to evaluate arm swelling that patient did not completed. Per patient she is unab le to complete due to transportation issues. Advised patient that she should refer back to PCP for evaluation of R arm pain since it is not orthopaedic in nature. Patient verbalized understanding. Note forward to PCP for FYI. * Telephone Encounter - Rajwinder Azul Ma - 08/04/2022 2:58 PM EDT I called and left a message for patient about upcoming appointment. Patient is scheduled for multiple joint complaints and chronic pain syndrome. Dr. Rangel asking for more specific information since the patient has already seen 2 ortho providersand pain management. He is not sure this is appropriate appointment for him. [facility] History of Present illness Narrative* Briana Leggett APRN.VELVET - 08/04/2022 9:44 AM EDT CC: Patient presents with: Recheck: 6 month [...] range. Bria works out regularly 2 times perweek with walking and and physical therapy. She [...] heat intolerance, no polyuria, no polyphagia, and nopolydipsia Neurologic: No headache, weakness, syncope. PAST MEDICAL [...] but patient was on Vicodin at that time.All prior urine tox screens negative. 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 - right arm surgery SHOULDER SURGERY HX Left 01/26/2017 [facility] - Left shoulder surgery - repair [...] Clavulanate], Corticosteroids (Glucocorticoids), Environmental [Other], Feathers, Other [place]-3s, Potassium Clavulanate, Prednisone, Seasonal Allergies, Silvadene [Silver Sulfadiazine], Stress Test Iv Liquid [Other], and Sulfa (Sulfonamide Antibiotics) MEDICATIONS albuterol HFA (PROVENTIL HFA, VENTOLIN HFA) 90 mcg/actuation inhaler Inhale 2 Puffs as instructed every 4 hours as needed. oxyCODONE-acetaminophen (PERCOCET) 5-325 mg tablet Take 1-2 tablets by mouth as directed. Every 4-6hours as needed for pain. FLOVENT HFA 110 [...] 1 tablet by mouth daily before breakfast. 1/2hr before meal. HYDROcodone-Acetaminophen (NORCO) 7.5-325 mg per [...] psychiatry. - Reviewed concept of neurochemical imbalance [facility] depression/anxiety, treatment options and benefits of counseling in combination with medication. Also reviewed benefits of sleep hygeine, diet and exercise - Instructed patient to contact office or [id number] after-hours promptly should condition worsen or any new symptoms appear. - Counseling Center [facility] and after hours crisis line Prescription instructions reviewed with patient as applicable. Potential red flag symptoms discussed with the patient. Reviewed appropriate action plan to take if red flag symptoms occur. Patient agreeable to treatment plan. Briana Leggett APRN.CNP documented in this encounterGlenbeigh Hospital03-01-2023 Miscellaneous Notes* Telephone Encounter - Clem García - 07/07/2022 8:23 AM EST PT scheduled for MSK US on 08/02/22 at 11:15 am at [facility]. * Telephone Encounter - Clem García - 07/06/2022 1:20 PM EST Called patient on 07/06/22 at 1:20 pm to schedule their MSK US exam. No answer, left VM, 2nd attempt. * Telephone Encounter - Clem García - 07/05/2022 12:44 PM EST Called patient on 07/05/22 at 12:45 pm to schedule their MSK US exam. No answer, left VM, 1st attempt. * Telephone Encounter - Clem Raquel - 07/01/2022 12:36 PM EST Visit Type: ANY MSK Visit Length: 45, 50 OR 60 MINUTES Order Name/Protocol: US EXTREMITY MASS/FLUID COLLECTION RT; EVAL RT HUMERUS/ARM FOR LOCALIZED AREA OF SWELLING. ORDER/PRTOCOL PER DR. SHERIDAN VIA SECURE CHAT Preferred Provider: N/A Comment: Please do not link the US MUSCLE RT to the appointment. An order correction was routed andis forthcoming. Location: ANY FACILITY Slot held: N/A documented in this encounterGlenbeigh Hospital02-10-2023 History of Present illness Narrative* Chela Sheridan, - 06/18/2022 1:17 PM EST VIRTUAL VISIT PROGRESS NOTE This is a virtual visit using commercetools video visit. It required patient-provider interaction for themedical decision making as documented below. Bria Witt is a 36 year old female seen for brain mri and eeg visit with pia.. HISTORY REVIEWED (electronic chart updated): PAST MEDICAL HISTORY Diagnosis Date Abnormal uterine bleeding 06/05/2013 Adjustment disorder with depressed mood Anxiety state, unspecified 10/07/2009 Asthma Benign neoplasm of skin of trunk, except scrotum 03/14/2009 Biceps tendinitis of right shoulder 03/07/2019 Biliary dyskinesia 01/23/2014 Calcific tendinitis of right shoulder 03/07/2019 Cervicalgia 11/03/2010 Chlamydia trachomatis infection of lower genitourinary sites - DDD (degenerative disc disease), cervical C4-7 herniat bulging discs Dizziness and giddiness DRUJ (distal radioulnar joint) sprain 11/11/2015 Esophageal reflux Gastroesophageal reflux Headache(784.0) 08/05/2011 Hidradenitis History of drug abuse (HCC) 09/03/2011 Random tox screen History opiate/marijuana use 02/07/17: Patient admits to past marijuana use, denies current use. Urine tox screen 11/2012 positive for opiates but patient was on Vicodin at that time.All prior urine tox screens negative. 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 - right arm surgery SHOULDER SURGERY HX Left 01/26/2017 [facility] - Left shoulder surgery - repair [...] 1-2 tablets by mouth as directed. Every 4-6hours as needed for pain. FLOVENT HFA 110 [...] 1 tablet by mouth daily before breakfast. 1/2hr before meal. HYDROcodone-Acetaminophen (NORCO) 7.5-325 mg per [...] See Comments Allergic to bird dander Other [place]-3s Unknown Potassium Clavulana* GI Upset Prednisone Swelling [...] torn and retracted. No rotator cuff tear. Steel Pourer Helper: EDWARD Transcribe Date/Time: May 11 2022 12:10P [...] which included preparing to see the patient, [id number] patient care, completing clinical documentation, obtaining and/or reviewing separately obtained history, counseling and educating the patient/family/caregiver, communicating with other HCPs (not separately reported), communicating results to the patient/family/caregiver, and care coordination (not separately reported) Rt arm swelling Us of arm ordered PCP sent note to [facility] for arm and pt will discuss [...] past Chela Sheridan DO documented in this encounterGlenbeigh Hospital02-08-2023 History of Present illness Narrative* Norm Hernandez Jr., MD - 06/16/2022 11:41 AM EST ESTABLISHED PATIENT VISIT (Virtual Visit with Video) For this virtual visit, the patient has been identified by name and (MRN and photo identification as well if available). Those taking part in visit: Patient and physician via [employer]. Consent for this visit received from patient. [...] also atypical and again need to consider possiblefunctional or somatoform disorder. EEG was performed at [facility] on 05/27/22 and was normal per report. Patient reports no change in facial numbness. Still describes as right side of face (midline over).Patient states she has had symptoms now well [...] long enough to point out to my mom. Pt does have spine problems, and is following with spine at [facility] and told not bad enough to do surgery. Pt wonders if twitching secondary to spine. [...] disturbance, mood disorder and recent psychosocial stressors. HEMATOLOGIC/LYMPHATIC/IMMUNOLOGIC:Negative for prolonged bleeding, bruising easily or swollen [...] 1-2 tablets by mouth as directed. Every 4-6hours as needed for pain. FLOVENT HFA 110 [...] 1 tablet by mouth daily before breakfast. 1/2hr before meal. HYDROcodone-Acetaminophen (NORCO) 7.5-325 mg per [...] but patient was on Vicodin at that time.All prior urine tox screens negative. 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 documented in this encounterGlenbeigh Hospital01-19-2023 Miscellaneous Notes* Telephone Encounter - Fatou Begum LPN - 05/27/2022 2:12 PM EST Pt out of medication. Fatou Begum LP Patient has been identified by name and [...] you. Fatou Begum LPN documented in this encounterGlenbeigh Hospital01-19-2023 Miscellaneous Notes* Telephone Encounter - BRITTANY Morocho - 05/27/2022 2:01 PM EST CD/report READY FOR PSYCHOLOGY PHYSICIAN AT [facility] * Telephone Encounter - Irma Vallejo - 05/27/2022 12:58 PM EST Patient requesting disk and report of 05/11 MRI. 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 documented in this encounterGlenbeigh Hospital01-19-[address] Hernandez [facility] May 27, 2022 8:49am Note Date/Time May 27, 2022 8 :50am [facility] Medical Records Department [address] [place] [id number] Telemedicine Confirmation Receipt 05/27/22 MR#: [id number] Acct: [id number] Name: BRIA WITT Rep #:[id number] : 1985 36 From: Norm Butler PCP: Dr. Koki Worthington MD Status:XOCHITL LEDESMA [facility] Telemed has confirmed receipt of a request for visit. This document confirms receipt of the order initiating the consult. To find the results of the consultation, please view the patient's reports for the scanned Telemed Consult. [facility] Work Phone: [phone]) 814-218501-12-2023 Miscellaneous Notes* Telephone Encounter - Heike Barnes - 05/20/2022 8:58 AM EST Scheduled patient for VV with Dr. Sheridan. * Telephone Encounter - Michela Soliman RN - 05/19/2022 1:30 PM EST Schedule a vv so I can see what is going on please Chela Sheridan DO * Telephone Encounter - Michela Soliman RN - 05/19/2022 12:57 PM EST Pt was calling to see if Dr Skelton could look at her latest MRI documented in this encounterGlenbeigh Hospital01-09-2023 Miscellaneous Notes* Telephone Encounter - Sophia Rich LPN - 05/17/2022 9:55 AM EST Mother calling (listed as contact on patient's chart) regarding pain medication. Advised that patient should contact Dr. Sheridan's office as suggested. She is asking if patient can be contacted re: MRI results. Please advise. Sophia Rich LPN * Telephone Encounter - Mitchel Staton MD - 05/17/2022 8:15 AM EST Her shoulder MRI looks normal other than [...] She cannot get narcotics from this office. * Telephone Encounter - Rajwinder Azul Ma - 05/14/2022 8:22 AM EST Patient called in crying stating right shoulder/upper [...] finished that prescription. I did confirm [facility] in [place]. Patient aware Dr. Staton is in surgery today and this may not get answered right away. documented in this encounterGlenbeigh Hospital01-03-2023 History of Present illness Narrative* Pam Travis RT(R) - 05/11/2022 10:00 AM EST Radiology Service Progress Note PATIENT NAME: Bria Witt DATE OF SERVICE: May 11, 2022 TIME: 10:30 AM PATIENT IDENTITY VERIFICATION COMPLETED USING TWO (2) IDENTIFIERS: Name and Date of confirmedby patient verbally. FALL SCREENING: Has the patient [...] 11, 2022 10:30 AM documented in this encounterGlenbeigh Hospital12-30-2022 History of Present illness Narrative* Norm Hernandez Jr., MD - 05/07/2022 10:52 AM EST NEW PATIENT (CONSULT) HISTORY AND PHYSICAL EXAM PRIMARY CARE PHYSICIAN: Koki Worthington MD REASON FOR CONSULT: Facial numbness REFERRING PHYSICIAN: Briana Leggett APRN.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 CHIEF COMPLAINT: Same as reason for referral. Consultation requested by Briana Leggett APRN.CNP for an opinion regarding chief complaint of Patient presents with: New Patient: Seeking second opinion; Facial paresthesia, intermittent tremor and my final recommendations will be communicated back to the requesting physician by way of sharedmedical record or letter via US mail. HISTORY OF PRESENT ILLNESS: Bria Witt is a 36 year old female, BMI 39.74 kg/m2 with a PMH significant for and per records: On 03/01/[address] [facility] ER for episode of sudden twich in R lowerreyelid and senses that legs were floating on cloud per ER report. LAU the day prior. ER workup unremarkable and pt did not stay overnight as recommended by [facility] neurologist for MRI brain with vascular imaging as well. Later was seen by Dr. Coffey, neurologist at [facility]. During visit on 04/27/21 complained of palpitations, but appears was already following with cardiology. At evaluation on 04/27/21 indicated that continued to have R eun facial numbness since ER evaluation. Ddx included vascular event vs MS vs trigeminal neuropathy per report. MRI brain wwo contast at [facility] on 05/14/21 was unremarkable pre report. Extensive records will be scanned into [employer]. Pt provides history of driving in car [...] neurology disorder. Pt states I don't know anymore. She states it feels like a red hot poker is now where her mask (standard) is touching her skin on her R face (maxillary and mandibular). Pt states she has vocal tics that she had as a teenager that resolved but noware back. Mother present and states no speech changes. When asked to describe vocal tic states sometimes cant speak words or that her head jerks looking like a mini seizure. States that as a teenager arm would shake so bad her food would fall of her silverware. She cannot tell me how frequent occur but states they have been returning over the past 6 weeks. Pt states does have headaches off and on but does not classify as migraines - she describes as tension headaches due to degenerative discsin her cervical area. When asked of medications, states she has been on so many different meds she cannot remember. Note she cannot take Cymbalta as results in headache and elevation in BP. Taking Naproxen is not pretty. Gabapentin makes my BP go high. I have been a medication trial and error. Pt does have history of anxiety and [...] and told you have the best sinus cavities. Adds that she has a weird gait [...] evidence of demyelination. Pt provides video of tics. While not video of this but states [...] lesions, rash, and itching. PSYCHIATRY: See HPI HEMATOLOGIC/LYMPHATIC/IMMUNOLOGIC:Negative for prolonged bleeding, bruising easily or swollen [...] 1-2 tablets by mouth as directed. Every 4-6hours as needed for pain. FLOVENT HFA 110 [...] 1 tablet by mouth daily before breakfast. 1/2hr before meal. albuterol HFA (PROVENTIL HFA, VENTOLIN [...] but patient was on Vicodin at that time.All prior urine tox screens negative. 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 If EEG unremarkable and persistence of symptoms then consider referral to functional neurology. Norm Hernandez MD I spent a total of 62 minutes on the date of the service which included preparing to see the patient, [id number] patient care, completing clinical documentation, obtaining and/or reviewing separately obtained history, performing a medically appropriate examination, counseling and educating the pat ient/family/caregiver, ordering medications, tests, or procedures, independently interpreting results (not separately reported), and communicating results to the patient/family/caregiver. documented in this encounterGlenbeigh Hospital12-05-2022 History of Present illness Narrative* Mitchel Staton MD - 04/12/2022 1:56 PM EST Mitchel Staton MD Department of Orthopaedics Orthopaedics [address] [facility] [address] Dept: [phone] Dept April 12, 2022 CHIEF COMPLAINT: New and Pain of the Right Shoulder HPI Patient here today for right shoulder injury. She tripped over a tote and fell on 03/21/2022. She was seen at [facility] after the injury. She is right hand [...] age, traumatic nature of the injury and functionalweakness, her rotator cuff needs to be evaluated. [...] but patient was on Vicodin at that time.All prior urine tox screens negative. 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 - Left shoulder surgery - repair [...] 1 tablet by mouth daily before breakfast. 1/2hr before meal. albuterol HFA (PROVENTIL HFA, VENTOLIN [...] Clavulanate], Corticosteroids (Glucocorticoids), Environmental [Other], Feathers, Other [place]-3s, Potassium Clavulanate, Prednisone, Seasonal Allergies, Silvadene [Silver Sulfadiazine], Stress Test Iv Liquid [Other], and Sulfa (Sulfonamide Antibiotics) ROS: General (negative for fatigue, malaise, weight loss/gain) HEENT (negative for headache, earache, recent vision changes, sinus pain, sore throat) Respiratory (no recent shortness of breath, hemoptysis) CV (negative for chest tightness, palpitations) Musculoskeletal (see HPI) Psych (no depression, anxiety) Mitchel Staton MD documented in this encounterGlenbeigh Hospital11-30-2022 Miscellaneous Notes* Telephone Encounter - Fernanda Mena MA - 04/07/2022 4:13 PM EST MARISELA mckeon/ Jax 12/29/18 Pt needs appt documented in this encounterGlenbeigh Hospital11-30-2022 Miscellaneous Notes* Telephone Encounter - Rupal Puentes LPN - 04/07/2022 3:59 PM EST Last office visit: 01/18/22 Next appointment scheduled: 07/19/22 Patient phones requesting refills as follows: Requested Prescriptions Pending Prescriptions Disp Refills Selenium Sulfide 2.25 % sham 180 mL 3 Sig: Apply to affected area once daily. Please review and advise. Rupal Puentes LPN documented in this encounterGlenbeigh Hospital11-10-2022 Miscellaneous Notes* Telephone Encounter - Zayra Becker MD - 03/18/2022 5:22 PM EST See result note General surgery referral placed - can see Dr. 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 Bria Witt is a [...] L6 SAB2 IAB0 Ectopic0 Multiple0 Live Births4 Denture Model Maker History LMP: 08/17/2021, IUD Age at Menarche: Age at First : Age at Menopause: Denture Model Maker History Comments: Sexual Activity: Not Currently; Male; [...] but patient was on Vicodin at that time.All prior urine tox screens negative. 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 - right arm surgery SHOULDER SURGERY HX Left 01/26/2017 [facility] - Left shoulder surgery - repair [...] 1 tablet by mouth daily before breakfast. 1/2hr before meal. albuterol HFA (PROVENTIL HFA, VENTOLIN [...] inspiratory effort PELVIC: normal Bartholin's glands, urethra, [place]'s glands, no vulvar lesions, no cervical lesions,good vaginal support, physiologic discharge present, normal appearing perineal body and perianal region. There is a 3x4 cm mass palpated in the left mons pubis with smooth regular borders. The mass is mobile and minimally tender. No skin changes noted over the mass. No erythema, drainage, swelling,induration. NEURO: exam grossly non-focal EXTREMITIES: normal ASSESSMENT [...] consistent with abscess based on exam. No fevers.Based on palpation today, feels to be a cyst? Will check CT pelvis. Discussed with patient reasons to call over weekend and before imaging: fevers, chills, malaise, increasing in size, worsened pain,redness, drainage, etc. Would recommend antibiotics at that time and possibly an I&D. Discussedmay need a consultation with general surgery - she states she has seen Dr. Brand for procedures before in the past. Scheduled CT and discussed with operations and maintenance supervisor providers over weekend. Zayra Becker DO Medical Decision Making: Problems: Moderate: New problem with uncertain prognosis Data: Unique test(s) ordered: 1 Risk: Low: Low risk from testing/treatment Medical Decision Making Level: 3 - Low documented in this encounterGlenbeigh Hospital10-20-2022 Miscellaneous Notes* Telephone Encounter - Raven Mina Ma - 02/25/2022 8:28 AM EDT Faxed. * Telephone Encounter - Briana Leggett APRN.CNP - 02/24/2022 8:19 AM EDT Please fax nebulizer order as requested. Thank you Briana Leggett APRN.CNP documented in this encounterGlenbeigh Hospital09-12-2022 History of Present illness Narrative* Briana Leggett APRN.CNP - 01/18/2022 9:35 AM EDT CC: Patient presents with: Recheck: 3 month follow up HPI Bria Witt is a 36 year old female who presents today for routine 6 month follow up. Right facial numbness and intermittent tremors continuation. Patient still following with neurologyDr. Coffey. Diagnosed with functional neurologic disorder, trigeminal neuropathy, and vocal and motor tic disorder. Per patient her CRP is elevated with him was 7.27 this past November but previously normal for us. Would like a second opinion with [facility] neurology. Is in physical therapy as ordered [...] this office with average BP's in the 110s/183n-88e-52u range. 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 She watches her diet for sodium, low fat and low cholesterol most of the time. Last 3 Encounter BP Readings: Date: BP: 01/18/2022 118/74 12/04/2021 120/72 11/03/2021 136/88 Sees [facility] for this. Last seen 3 months ago for routine exam. Had fasting lipid and other lab work completed. Total cholesterol 199 LDL 137 Triglycerides 148 and HDL 32. Has chronic palpitations which she takes nadolol for control. Had sharp sternal chest pain yesterday for a shortperiod yesterday morning while sitting outside. Had not [...] bends her thumb. Thinks the four year oldshe babysits may have something similar. REVIEW OF [...] but patient was on Vicodin at that time.All prior urine tox screens negative. 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 - right arm surgery SHOULDER SURGERY HX Left 01/26/2017 [facility] - Left shoulder surgery - repair [...] Clavulanate], Corticosteroids (Glucocorticoids), Environmental [Other], Feathers, Other [place]-3s, Potassium Clavulanate, Prednisone, Seasonal Allergies, Silvadene [Silver Sulfadiazine], Stress Test Iv Liquid [Other], and Sulfa (Sulfonamide Antibiotics) MEDICATIONS Omeprazole Magnesium (PRILOSEC OTC) 20 mg tablet Take 1 tablet by mouth daily before breakfast. 1/2hr before meal. albuterol HFA (PROVENTIL HFA, VENTOLIN [...] Completed DATA REVIEWED: Most recent labs From [facility]. EKG Interpretation: RHYTHM: Normal sinus rhythm at 65 beats per minute with sinus arrhythmia INTERVALS: Normal UT interval QRS COMPLEX: Normal ST SEGMENT: Normal [...] plan. Briana Leggett APRN.CNP documented in this encounterGlenbeigh Hospital08-13-2022 Miscellaneous Notes* Telephone Encounter - Lucila Recinos LPN - 12/19/2021 10:26 AM EDT Patient has been identified by name and [...] you. Lucila Recinos LPN documented in this encounterGlenbeigh Hospital07-29-2022 History of Present illness Narrative* Xiomy Moreno RT(R) - 12/04/2021 8:10 AM EDT Radiology Service Progress Note PATIENT NAME: Bria Witt DATE OF SERVICE: December 04, 2021 TIME: 8:04 AM PATIENT IDENTITY VERIFICATION COMPLETED USING TWO (2) IDENTIFIERS: Name and Date of confirmedby patient verbally. FALL SCREENING: Has the patient had 2 falls in the last year or 1 fall with injury or currently using an Ambulatory Assistive Device (Walker, Cane, Wheelchair, Crutches, etc.)? No PATIENT GENDER DATA: Female. status: : No status: NO. PATIENT RELEVANT IMPLANT DATA REVIEWED: Not Applicable RADIOLOGY DEPARTMENT: General X-ray: Exam(s) Completed: Upper Extremity X- Ray(s): Elbow, left PERIPHERAL IV DATA: Not applicable SIGNED BY: RT Oni(R) December 04, 2021 8:04 AM documented in this encounterGlenbeigh Hospital07-29-2022 History of Present illness Narrative* Heber Ferrell MD - 12/04/2021 7:52 AM EDT Patient presents with: Pain (Elbow Pain): L [...] but patient was on Vicodin at that time.All prior urine tox screens negative. 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 Brnad. I & D [...] disease PAST SURGICAL HISTORY OF Right 03/07/2019 [facility] right arm surgery SHOULDER SURGERY HX Left 01/26/2017 [facility] - Left shoulder surgery - repair [...] 1 tablet by mouth daily before breakfast. 1/2hr before meal. albuterol HFA (PROVENTIL HFA, VENTOLIN [...] See Comments Allergic to bird dander Other [place]-3s Unknown Potassium Clavulana* GI Upset Prednisone Swelling [...] up with orthopedics if not improving. Heber Ferrell MD documented in this encounterGlenbeigh Hospital07-27-2022 History of Present illness Narrative* Yo Segura MD - 12/02/2021 9:50 AM EDT Assessment and Plan 1. Transient vision disturbance [...] on repeat test -Saw neurology (Dr. Bright Coffey) for facial paresthesias: EMG, CT, and MRI done at [facility]: there is no explanation for her facial numbness. Diagnosed with trigeminal neuralgia? Plan: -Overall stable. No evidence of optic neuritis or neuropathy. Possible trace swelling of left opticnerve? Stable with no clear evidence on OCT and no support of IIH on testing so far with neurology -encouraged to see neuro-ophthalmology at [facility] if possible - unable to drive long [...] and plan as stated above and agree withall of its relevant components. Yo Segura MD documented in this encounterGlenbeigh Hospital06-29-2022 History of Present illness Narrative* Chela Sheridan, DO - 11/04/2021 9:24 AM EDT Images from the original note were not included. Follow Up Visit Chief Complaint Bria Witt is a 36 year old female who presents today for follow up office visit. Patient presents with: Right Shoulder - Follow Up, Pain History of Present Illness PAIN EVALUATION 11/04/2021 0921 Pain Level: 3 Pain Location: Shoulder-Right Description: Aching;Dull;Sore;Throbbing Duration Amount of Time: ongoing Frequency: Continuous Intervention/Comfort measure: Reposition;Relaxation;Medication;Cold;Other: See comment cortisone injection HPI: Bria Witt is a 36 year old female for a follow up visit right shoulder pain that is posterior around chicken wing. Had an injection at last vist which [...] a surgical candidate as well. Patient showed meimage of her shaking with her left upper [...] intolerance, new onset joint pain or swelling, newonset extremity weakness or numbness, new onset auditory [...] 1 tablet by mouth daily before breakfast. 1/2hr before meal. albuterol HFA (PROVENTIL HFA, VENTOLIN [...] medications for this visit. Physical Exam Vitals: [facility] 08/17/2021 Psych: Pleasant, good affect [...] but her most of her issues and complaintsare neurologic in nature. She is also complaining of some pain and she does have a history of chronic pain syndrome so at this point patient being treated and evaluated by chronic pain management is the next step in ameliorating in delineating how much of her neurological manifestations are from pain versus an underlying issue. [facility] History of Present illness Narrative* Adriana Coulter APRN.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 - 11/03/2021 11:06 AM EDT Subjective HPI HPI Bria Witt is a [...] but patient was on Vicodin at that time.All prior urine tox screens negative. 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 - right arm surgery SHOULDER SURGERY HX Left 01/26/2017 [facility] - Left shoulder surgery - repair [...] 1 tablet by mouth daily before breakfast. 1/2hr before meal. albuterol HFA (PROVENTIL HFA, VENTOLIN [...] 50 MCG/ACTUATION NASAL SPRAY,SUSPENSION Agrees to plan Adriana Coulter APRN.CNP documented in this encounterGlen[facility]06[facility]22 Miscellaneous Notes* Telephone Encounter - Raven Mina Ma - 10/26/2021 1:36 PM EDT Awaiting forms to be received. * Telephone Encounter - Briana Leggett APRN.CNP - 10/19/2021 4:22 PM EDT Once all forms are received please place them on my desk for review. Thank you Briana Leggett APRN.CNP * Telephone Encounter - Raven Mina Ma - 10/19/2021 2:01 PM EDT Spoke with patient, no forms have been completed before. Patient has been disabled since 2016, these forms are for her student loans. Patient states these are the only forms she received. School is looking for diagnosis and that patient is still considered disabled. Advised patient to try to get all forms so they can be completed. * Telephone Encounter - Briana Leggett APRN.CNP - 10/19/2021 9:14 AM EDT At end of appointment on Tuesday patient handed me a paper that she said had to be filled out yearly. I do not see a copy of paperwork filled out elsewhere in chart. Does she remember when it was lastfilled out? Also, I only have page 3 out of 8, I need other pages to review exactly what this is for I am filling out. Thank you Briana Leggett APRN.CNP documented in this encounterG[facility] History of Present illness Narrative* Briana Leggett APRN.CNP - 10/16/2021 7:55 AM EDT CC: Patient presents with: Recheck: 3 month [...] increased to 1/2 tab in am 1/2 to1/4 tab in PM. Patient denies any side [...] chest pain and shortness of breath with herexercise of walking. Asthma: Using emergency inhaler 2-3 [...] but patient was on Vicodin at that time.All prior urine tox screens negative. 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 - right arm surgery SHOULDER SURGERY HX Left 01/26/2017 [facility] - Left shoulder surgery - repair [...] 1 tablet by mouth daily before breakfast. 1/2hr before meal. albuterol HFA (PROVENTIL HFA, VENTOLIN [...] of breath, chest pain, or any other urgentconcerns. Prescription instructions reviewed with patient as applicable. Potential red flag symptoms discussed with the patient. Reviewed appropriate action plan to take if red flag symptoms occur. Patient agreeable to treatment plan. Briana Leggett APRN.CNP documented in this encounterG[facility]05-14-[facility]22 Instructions* Patient Instructions* Scot Carranza APRN.CNP - 09/19/2021 8:54 AM [...] or root canal work may be needed tosave your tooth. If the problem is severe, your tooth may need to be pulled. Please return here right away if you have a fever over 101F, can t swallow, or develop severe swelling. documented in this encounterG[facility]05-14-[facility] History of Present illness Narrative* Scot Carranza APRN.VELVET - 09/19/2021 8:40 AM EDT Images from the original note were not included. Subjective HPI Nontoxic-appearing female presents urgent care chief plaint dental infection. Duration of symptoms ongoing. Associated symptoms facial swelling pain. Patient states she has had on and off dental infections over the last few months. Was seen by me approximately 1 month ago. Did follow[facility]up with [facility]. Does have an oral surgery appointment this [...] but patient was on Vicodin at that time.All prior urine tox screens negative. 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 - right arm surgery SHOULDER SURGERY HX Left 01/26/2017 [facility] - Left shoulder surgery - repair [...] 1 tablet by mouth daily before breakfast. 1/2hr before meal. albuterol HFA (PROVENTIL HFA, VENTOLIN [...] 1 capsule by mouth once daily. FLORAJEN WOMEN.If on antibiotic, take at least 1-2 hours [...] neck. No erythema. No trismus. Mouth/Throat: Lips: Radar Base. Mouth: Mucous membranes are moist. Dentition: Abnormal dentition. Does not have dentures. Dental tenderness and dental caries present.No gingival swelling or dental abscesses. Pharynx: Oropharynx [...] of care. This note was generated using [employer] software. It may contain errors in wording, punctuation, or spelling. Scot Carranza APRN.VELVET documented in this encounterGlen[facility]03-25-[facility] History of Present illness Narrative* Chela Sheridan, - 07/31/2021 9:53 AM EDT Associated Order(s): Large Joint Arthro/Inj: R subacromial [...] Pain Level: 7 Pain Location: Shoulder-Right Description: Aching;Dull;Sore;Throbbing;Other: See comment Pinching Duration Amount of Time: Ongoing Frequency: Intermittent Intervention/Comfort measure: Reposition;Relaxation;Cold;Medication HPI: Bria Witt is a 36 year old female for a follow up visit right shoulder pain. Pain historyis noted as above. Denies numbness, tingling, fever, chills or other constitutional symptoms. Usingice packs, tens unit, chiropractor, still numbness on right side of face, still having twitches on right side of face as well. States random swelling of multiple joints for unknown reason, and timin g.stiffness and swelling at all times of the [...] intolerance, new onset joint pain or swelling, newonset extremity weakness or numbness, new onset auditory or visual disturbances, lightheadedness, dizziness, partial loss of consciousness or full loss of consciousness. Current Outpatient Medications Medication Sig Omeprazole Magnesium (PRILOSEC OTC) 20 mg tablet Take 1 tablet by mouth daily before breakfast. 1/2hr before meal. albuterol HFA (PROVENTIL HFA, VENTOLIN [...] 1 capsule by mouth once daily. [employer]ORAJEN WOMEN.If on antibiotic, take at least 1-2 hours [...] subacromial bursa Informed Consent Consent Obtained: Verbal [place] Protocol A moment to CARE was completed. [...] acetate-betamethasone sodium phosphate 6 mg/mL; 80 mg triamcinoloneacetonide 40 mg/mL Anesthetics: 8 mL ropivacaine (PF) [...] dictating provider for clarification. documented in this encounterG[facility]03[facility]22-[facility] History of Past illness Narrative* Problem Noted [...] of this encounter (statuses as of 07/31/2021) [facility] Narrative* Problem Noted [...] of this encounter (statuses as of 09/19/2021) [facility] N[facility]ative* Problem Noted [...] of this encounter (statuses as of 10/16/2021) [facility] N[facility]* Problem Noted [...] of this encounter (statuses as of 11/03/2021) [facility] N[facility]ative* Problem Noted [...] of this encounter (statuses as of 11/04/2021) [facility]* Problem Noted [...] of this encounter (statuses as of 11/19/2021) [facility]* Problem Noted [...] of this encounter (statuses as of 12/02/2021) [facility]* Problem Noted [...] of this encounter (statuses as of 12/04/2021) [facility]* Problem Noted [...] of this encounter (statuses as of 12/21/2021) [facility]* Problem Noted [...] of this encounter (statuses as of 01/20/2022) [facility]* Problem Noted [...] of this encounter (statuses as of 02/11/2022) [facility]* Problem Noted [...] of this encounter (statuses as of 02/25/2022) [facility]* Problem Noted [...] of this encounter (statuses as of 03/12/2022) [facility]* Problem Noted [...] of this encounter (statuses as of 03/18/2022) [facility]* Problem Noted [...] of this encounter (statuses as of 03/19/2022) [facility]* Problem Noted [...] of this encounter (statuses as of 04/07/2022) [facility]* Problem Noted [...] of this encounter (statuses as of 04/07/2022) [facility]* Problem Noted [...] of this encounter (statuses as of 04/21/2022) [facility]* Problem Noted [...] of this encounter (statuses as of 05/12/2022) [facility] Problem Noted [...] of this encounter (statuses as of 05/20/2022) [facility] Problem Noted [...] of this encounter (statuses as of 05/27/2022) [facility]* Problem Noted [...] of this encounter (statuses as of 05/30/2022) [facility]* Problem Noted [...] of this encounter (statuses as of 06/09/2022) [facility]* Problem Noted [...] of this encounter (statuses as of 06/18/2022) [facility]* Problem Noted [...] of this encounter (statuses as of 07/01/2022) [facility]* Problem Noted [...] of this encounter (statuses as of 07/07/2022) [facility] Problem Noted [...] of this encounter (statuses as of 08/04/2022) [facility] Problem Noted [...] of this encounter (statuses as of 08/10/2022) [facility]* Problem Noted [...] of this encounter (statuses as of 10/06/2022) [facility] Problem Noted [...] of this encounter (statuses as of 11/12/2022) [facility] Problem Noted [...] of this encounter (statuses as of 01/21/2023) [facility]* Problem Noted Date Diagnosed Date Resolved Date Contusion of right wrist 07/29/201503/2016 Pain in left wrist 05/06/2015 6 Pain in right wrist 05/06/2015 10/11/20 16 Vaginitis and vulvovaginitis, unspecified 04/26/2013 06/13/2018 [...] of this encounter (statuses as of 02/28/2023) [facility]* Problem Noted [...] of this encounter (statuses as of 03/01/2023) [facility] Problem Noted [...] of this encounter (statuses as of 03/12/2023) [facility] Problem Noted [...] of this encounter (statuses as of 03/12/2023) [facility] Problem Noted [...] of this encounter (statuses as of 03/12/2023) [facility] Problem Noted [...] of this encounter (statuses as of 03/12/2023) [facility] Problem Noted [...] of this encounter (statuses as of 03/17/2023) [facility] Problem Noted [...] of this encounter (statuses as of 06/16/2023) [facility] Problem Noted [...] of this encounter (statuses as of 06/16/2023) [facility] Problem Noted [...] of this encounter (statuses as of 06/17/2023) [facility] Problem Noted [...] of this encounter (statuses as of 06/24/2023) [facility] Problem Noted [...] as of this encounter (statuses as of 07/15/2023) [facility] Problem Noted [...] as of this encounter (statuses as of 07/22/2023) [facility]* Problem Noted [...] as of this encounter (statuses as of 08/17/2023) [facility] Diagnosis Multiple joint complaints- Primary Unspecified joint disorder of multiple sites Chronic right shoulder pain Pain in joint, shoulder region Tendinitis of right shoulder Disorders of bursae and tendons in shoulder region, unspecified Impingement syndrome of right shoulder Other affections of shoulder region, not elsewhere classified [facility]* Diagnosis Onset Date Resolution Status Right shoulder pain acute Acute sinusitis, unspecified acute Trigeminal neuropathy [facility] Work Phone: Evaluation note* Diagnosis Pain, dental- Primary Unspecified disorder of the teeth and supporting structures [facility] Diagnosis Onset Date Resolution Status Acute sinusitis, unspecified acute Trigeminal neuropathy [facility] Work Phone: Evaluation note* Diagnosis Moderate persistent asthma, uncomplicated- Primary Unspecified asthma Essential hypertension Unspecified essential hypertension Hyperlipidemia, mixed Mixed hyperlipidemia Facial paresthesia Palpitations [facility]* Diagnosis Bacterial sinusitis- Primary Unspecified sinusitis (chronic) [facility]* Diagnosis Complex regional pain syndrome type [...] shoulder region, unspecified [facility]* Diagnosis Onset Date Resolution Status Essential hypertension chron ic Hyperlipidemia chronic Palpitations chronic PVC's (premature ventricular contractions) chronic Motor and vocal tic disorder chronic Neck pain chronic Trigeminal neuropathy chroni c [facility] Work Phone: Evaluation note* Diagnosis Alteration in vision- Primary Transient vision disturbance of right eye Unspecified visual disturbance Eyelid twitch Abnormal involuntary movements [facility]* Diagnosis Elbow pain, left- Primary Pain in joint, upper arm [facility] Diagnosis Gastroesophageal reflux disease, unspecified whether esophagitis present Moderate persistent asthma, uncomplicated Unspecified asthma [facility]* Diagnosis Chest pain, unspecified type- Primary Facial paresthesia Intermittent tremor Abnormal involuntary movements Gastroesophageal reflux disease, unspecified whether esophagitis present Essential hypertension Unspecified essential hypertension Hyperlipidemia, mixed Mixed hyperlipidemia Molluscum contagiosum [facility]* Diagnosis Moderate persistent asthma with acute exacerbation Cough [facility]* Diagnosis Soft tissue mass- Primary Disorders of soft tissue, unspecified [facility] Diagnosis Soft tissue mass- Primary Disorders of soft tissue, unspecified [facility] Diagnosis Acute pain of right shoulder- Primary Traumatic tear of right rotator cuff, unspecified tear extent, initial encounter [facility]* Diagnosis Facial paresthesia- Primary Trigeminal nerve disorder Trigeminal nerve disorder, unspecified Intermittent tremor Abnormal involuntary movements Twitch Abnormal involuntary movements Tic disorder Tic disorder, unspecified [facility]* Diagnosis Moderate persistent asthma, uncomplicated Unspecified asthma [facility]* Diagnosis Onset Date Resolution Status Essential hypertension chron ic Hyperlipidemia chronic Palpitations chronic PVC's (premature ventricular contractions) chronic [facility] Work Phone: Evaluation note* Diagnosis Facial paresthesia- Primary Trigeminal nerve disorder Trigeminal nerve disorder, unspecified Twitch Abnormal involuntary movements Tic disorder Tic disorder, unspecified Intermittent tremor Abnormal involuntary movements [facility] Diagnosis Arm swelling- Primary Swelling of limb Acute pain of right shoulder Traumatic tear of right rotator cuff, unspecified tear extent, initial encounter [facility] Diagnosis Essential hypertension- Primary Unspecified essential hypertension Hyperlipidemia, mixed Mixed hyperlipidemia Palpitations Gastroesophageal reflux disease, unspecified whether esophagitis present Post traumatic stress disorder (PTSD) Posttraumatic stress disorder [facility]* Diagnosis Onset Date Resolution Status Iliotibial band syndrome, left leg acute Pes anserinus bursitis of left knee noneactive Left knee pain noneactive Iliotibial band syndrome, left leg acute Patellofemoral disorders, left knee noneactive Pes anserinus bursitis of left knee noneactive Left knee pain noneactive [facility] Work Phone: Evaluation note* Diagnosis Essential hypertension Unspecified essential hypertension Hyperlipidemia, mixed Mixed hyperlipidemia [facility]* Diagnosis Gastroesophageal reflux disease, unspecified whether esophagitis present [facility]* Diagnosis Moderate persistent asthma with acute exacerbation Cough documented [facility]* Diagnosis Onset Date Resolution Status Iliotibial band syndrome, left leg acute Patellofemoral disorders, left knee noneactive Pes anserinus bursitis of left knee noneactive Left knee pain noneactive Essential hypertension chron ic Hyperlipidemia chronic Palpitations chronic PVC's (premature ventricular contractions) chronic Patellofemoral maltracking a cute Patellofemoral syndrome of both knees acute [facility] Work Phone: Evaluation note* Diagnosis Arm swelling Swelling of limb [facility] Diagnosis Moderate persistent asthma with acute exacerbation- Primary [facility]* Diagnosis Onset Date Resolution Status Essential hypertension chron ic Hyperlipidemia chronic Palpitations chronic PVC's (premature ventricular contractions) chronic Patellofemoral maltracking a cute Patellofemoral syndrome of both knees acute [facility] Work Phone: Evaluation note* Diagnosis Onset Date Resolution Status Patellofemoral maltracking a cute Patellofemoral syndrome of both knees acute [facility] Work Phone: Evaluation note* Diagnosis Acute vaginitis- Primary Vaginitis and vulvovaginitis, unspecified Hemorrhoids, unspecified hemorrhoid type [facility] Diagnosis Onset Date Resolution Status Acute upper respiratory infection acute [facility]* Diagnosis Anal fissure- Primary Hemorrhoids, unspecified hemorrhoid type documented in this encounter [facility] note* Diagnosis Essential hypertension Unspecified essential hypertension Hyperlipidemia, mixed Mixed hyperlipidemia documented in this encounter [facility] note* Diagnosis Hidradenitis suppurativa- Primary Hidradenitis documented in this encounter [facility] note* Diagnosis Gastroesophageal reflux disease, unspecified whether esophagitis present documented in this encounter [facility] note* Diagnosis Nipple discharge- Primary Other sign and symptom in breast documented in this encounter [facility] note* Diagnosis Nipple discharge- Primary Other sign and symptom in breast documented in this encounter [facility] note* Diagnosis Nipple discharge Other sign and symptom in breast [facility]* Diagnosis Nipple discharge Other sign and symptom in breast [facility]* Diagnosis URI, acute- Primary Acute upper respiratory infections of unspecified site Sore throat Acute pharyngitis documented in this encounter [facility] note* Diagnosis Mild intermittent asthma without complication- Primary Unspecified asthma [facility]* Diagnosis Nipple discharge Other sign and symptom in breast documented in this encounter [facility] note* Diagnosis Skin infection- Primary Unspecified local infection of skin and subcutaneous tissue documented in this encounter [facility] note* Diagnosis Moderate persistent asthma, uncomplicated Unspecified asthma [facility] Diagnosis Vaginal itching- Primary Pruritus of genital organs Vulvar irritation Other specified noninflammatory disorder of vulva and perineum Encounter for IUD insertion Encounter for insertion of intrauterine contraceptive device Dysmenorrhea [facility] Diagnosis Bacterial vaginosis- Primary Vaginitis and vulvovaginitis, unspecified [facility]* Diagnosis Chronic left shoulder pain- Primary Pain in joint, shoulder region Hyperlipidemia, mixed Mixed hyperlipidemia Tear of left biceps muscle, subsequent encounter Left arm weakness Other musculoskeletal symptoms referable to limbs PTSD (post-traumatic stress disorder) Posttraumatic stress disorder Anxiety and depression Dysthymic disorder Encounter for IUD insertion- Primary Encounter for insertion of intrauterine contraceptive device [facility] Diagnosis Chronic left shoulder pain- Primary Pain in joint, shoulder region Hyperlipidemia, mixed Mixed hyperlipidemia Tear of left biceps muscle, subsequent encounter Left arm weakness Other musculoskeletal symptoms referable to limbs PTSD (post-traumatic stress disorder) Posttraumatic stress disorder Anxiety and depression Dysthymic disorder Elbow pain, left Pain in joint, upper arm [facility] Diagnosis Chronic left shoulder pain- Primary Pain in joint, shoulder region Hyperlipidemia, mixed Mixed hyperlipidemia Tear of left biceps muscle, subsequent encounter Left arm weakness Other musculoskeletal symptoms referable to limbs PTSD (post-traumatic stress disorder) Posttraumatic stress disorder Anxiety and depression Dysthymic disorder Palpitations- Primary Paroxysmal tachycardia (HCC) Paroxysmal tachycardia, unspecified Moderate persistent asthma with acute exacerbation [facility] Diagnosis Chronic left shoulder pain- Primary Pain in joint, shoulder region Hyperlipidemia, mixed Mixed hyperlipidemia Tear of left biceps muscle, subsequent encounter Left arm weakness Other musculoskeletal symptoms referable to limbs PTSD (post-traumatic stress disorder) Posttraumatic stress disorder Anxiety and depression Dysthymic disorder Surveillance of previously prescribed intrauterine contraceptive device- Primary [facility] Diagnosis Hoarseness of voice- Primary Dysphonia Contact ulcer of vocal cord Other diseases of vocal cords documented in this encounter [facility] Work Phone: Evaluation note* Diagnosis Chronic left shoulder pain- Primary Pain in joint, shoulder region Hyperlipidemia, mixed Mixed hyperlipidemia Tear of left biceps muscle, subsequent encounter Left arm weakness Other musculoskeletal symptoms referable to limbs PTSD (post-traumatic stress disorder) Posttraumatic stress disorder Anxiety and depression Dysthymic disorder Encounter for gynecological examination (general) (routine) without abnormal findings- Primary Encounter for screening mammogram for malignant neoplasm of breast Other screening mammogram Vaginal discharge Leukorrhea, not specified as infective [facility] Diagnosis Chronic left shoulder pain- Primary Pain in joint, shoulder region Hyperlipidemia, mixed Mixed hyperlipidemia Tear of left biceps muscle, subsequent encounter Left arm weakness Other musculoskeletal symptoms referable to limbs PTSD (post-traumatic stress disorder) Posttraumatic stress disorder Anxiety and depression Dysthymic disorder Urinary frequency- Primary Acute otitis externa of left ear, unspecified type [facility] Diagnosis Hoarseness of voice- Primary Dysphonia Lesion of vocal cord Other diseases of vocal cords documented in this encounter [facility] Work Phone: Evaluation note* Diagnosis Chronic left shoulder pain- Primary Pain in joint, shoulder region Hyperlipidemia, mixed Mixed hyperlipidemia Tear of left biceps muscle, subsequent encounter Left arm weakness Other musculoskeletal symptoms referable to limbs PTSD (post-traumatic stress disorder) Posttraumatic stress disorder Anxiety and depression Dysthymic disorder Community acquired pneumonia of left lung, unspecified part of lung- Primary Sore throat Acute pharyngitis Acute cough URI, acute Acute upper respiratory infections of unspecified site [facility] Diagnosis Chronic left shoulder pain- Primary Pain in joint, shoulder region Hyperlipidemia, mixed Mixed hyperlipidemia Tear of left biceps muscle, subsequent encounter Left arm weakness Other musculoskeletal symptoms referable to limbs PTSD (post-traumatic stress disorder) Posttraumatic stress disorder Anxiety and depression Dysthymic disorder Paroxysmal tachycardia (HCC)- Primary Paroxysmal tachycardia, unspecified Bacterial pneumonia Bacterial pneumonia, unspecified Mild intermittent asthma without complication Unspecified asthma [facility] Diagnosis Chronic left shoulder pain- Primary Pain in joint, shoulder region Hyperlipidemia, mixed Mixed hyperlipidemia Tear of left biceps muscle, subsequent encounter Left arm weakness Other musculoskeletal symptoms referable to limbs PTSD (post-traumatic stress disorder) Posttraumatic stress disorder Anxiety and depression Dysthymic disorder Moderate persistent asthma, uncomplicated Unspecified asthma [facility] Diagnosis Chronic left shoulder pain- Primary Pain in joint, shoulder region Hyperlipidemia, mixed Mixed hyperlipidemia Tear of left biceps muscle, subsequent encounter Left arm weakness Other musculoskeletal symptoms referable to limbs PTSD (post-traumatic stress disorder) Posttraumatic stress disorder Anxiety and depression Dysthymic disorder Bacterial pneumonia Bacterial pneumonia, unspecified [facility] Diagnosis Family history of defect Family history of congenital anomalies [facility] Chronic left shoulder pain- Primary Pain in joint, shoulder region Hyperlipidemia, mixed Mixed hyperlipidemia Tear of left biceps muscle, subsequent encounter Left arm weakness Other musculoskeletal symptoms referable to limbs PTSD (post-traumatic stress disorder) Posttraumatic stress disorder Anxiety and depression Dysthymic disorder Nasal congestion- Primary Other diseases of nasal cavity and sinuses [facility] Diagnosis Chronic left shoulder pain- Primary Pain in joint, shoulder region Hyperlipidemia, mixed Mixed hyperlipidemia Tear of left biceps muscle, subsequent encounter Left arm weakness Other musculoskeletal symptoms referable to limbs PTSD (post-traumatic stress disorder) Posttraumatic stress disorder Anxiety and depression Dysthymic disorder Need for vaccination- Primary Need for prophylactic vaccination and inoculation against unspecified single disease Encounter for immunization Need for other specified prophylactic vaccination against single bacterial disease [facility] Diagnosis Chronic left shoulder pain- Primary Pain in joint, shoulder region Hyperlipidemia, mixed Mixed hyperlipidemia Tear of left biceps muscle, subsequent encounter Left arm weakness Other musculoskeletal symptoms referable to limbs PTSD (post-traumatic stress disorder) Posttraumatic stress disorder Anxiety and depression Dysthymic disorder Encounter for immunization- Primary Need for other specified prophylactic vaccination against single bacterial disease [facility] Diagnosis Chronic left shoulder pain- Primary Pain in joint, shoulder region Hyperlipidemia, mixed Mixed hyperlipidemia Tear of left biceps muscle, subsequent encounter Left arm weakness Other musculoskeletal symptoms referable to limbs PTSD (post-traumatic stress disorder) Posttraumatic stress disorder Anxiety and depression Dysthymic disorder URI, acute- Primary Acute upper respiratory infections of unspecified site [facility] Diagnosis Chronic left shoulder pain- Primary Pain in joint, shoulder region Hyperlipidemia, mixed Mixed hyperlipidemia Tear of left biceps muscle, subsequent encounter Left arm weakness Other musculoskeletal symptoms referable to limbs PTSD (post-traumatic stress disorder) Posttraumatic stress disorder Anxiety and depression Dysthymic disorder Wheezing- Primary Shortness of breath Acute cough Dysuria Leukocytes in urine Other cells and casts in urine Proteinuria, unspecified type Wheezing Shortness of breath Acute cough [facility] Diagnosis Chronic left shoulder pain- Primary Pain in joint, shoulder region Hyperlipidemia, mixed Mixed hyperlipidemia Tear of left biceps muscle, subsequent encounter Left arm weakness Other musculoskeletal symptoms referable to limbs PTSD (post-traumatic stress disorder) Posttraumatic stress disorder Anxiety and depression Dysthymic disorder Wheezing Shortness of breath Acute cough [facility] Diagnosis Chronic left shoulder pain- Primary Pain in joint, shoulder region Hyperlipidemia, mixed Mixed hyperlipidemia Tear of left biceps muscle, subsequent encounter Left arm weakness Other musculoskeletal symptoms referable to limbs PTSD (post-traumatic stress disorder) Posttraumatic stress disorder Anxiety and depression Dysthymic disorder Moderate persistent asthma, uncomplicated- Primary Unspecified asthma Wheezing Shortness of breath [facility] Diagnosis Chronic left shoulder pain- Primary Pain in joint, shoulder region Hyperlipidemia, mixed Mixed hyperlipidemia Tear of left biceps muscle, subsequent encounter Left arm weakness Other musculoskeletal symptoms referable to limbs PTSD (post-traumatic stress disorder) Posttraumatic stress disorder Anxiety and depression Dysthymic disorder Moderate persistent asthma, uncomplicated (HCC) Unspecified asthma [facility] Diagnosis Chronic left shoulder pain- Primary Pain in joint, shoulder region Hyperlipidemia, mixed Mixed hyperlipidemia Tear of left biceps muscle, subsequent encounter Left arm weakness Other musculoskeletal symptoms referable to limbs PTSD (post-traumatic stress disorder) Posttraumatic stress disorder Anxiety and depression Dysthymic disorder Pre-syncope- Primary Syncope and collapse Other fatigue Hematuria, unspecified type Paroxysmal tachycardia (HCC) Paroxysmal tachycardia, unspecified Vitamin D deficiency Unspecified vitamin D deficiency [facility] Diagnosis Chronic left shoulder pain- Primary Pain in joint, shoulder region Hyperlipidemia, mixed Mixed hyperlipidemia Tear of left biceps muscle, subsequent encounter Left arm weakness Other musculoskeletal symptoms referable to limbs PTSD (post-traumatic stress disorder) Posttraumatic stress disorder Anxiety and depression Dysthymic disorder Pre-syncope- Primary Syncope and collapse Paroxysmal tachycardia (HCC) Paroxysmal tachycardia, unspecified Bigeminy Other specified cardiac dysrhythmias [facility] Diagnosis Chronic left shoulder pain- Primary Pain in joint, shoulder region Hyperlipidemia, mixed Mixed hyperlipidemia Tear of left biceps muscle, subsequent encounter Left arm weakness Other musculoskeletal symptoms referable to limbs PTSD (post-traumatic stress disorder) Posttraumatic stress disorder Anxiety and depression Dysthymic disorder Hyperlipidemia, mixed Mixed hyperlipidemia [facility]* Diagnosis Onset Date Resolution Status Admit Date Essential hypertension chronic Ju 2024 10:27am Hyperlipidemia chronic October 19, 2024 10:27am Palpitations chronic October 19, 2 025 10:27am PVC's (premature ventricular contractions) chronic October 19, 2024 10:27am [facility] Work Phone: Evaluation note* Diagnosis Chronic left shoulder pain- Primary Pain in joint, shoulder region Hyperlipidemia, mixed Mixed hyperlipidemia Tear of left biceps muscle, subsequent encounter Left arm weakness Other musculoskeletal symptoms referable to limbs PTSD (post-traumatic stress disorder) Posttraumatic stress disorder Anxiety and depression Dysthymic disorder Essential hypertension- Primary Unspecified essential hypertension Paroxysmal tachycardia (HCC) Paroxysmal tachycardia, unspecified Mild intermittent asthma without complication (HCC) Unspecified asthma Gastroesophageal reflux disease, unspecified whether esophagitis present Tobacco abuse Tobacco use disorder Complex regional pain syndrome type 1 of right upper extremity Anxiety and depression Dysthymic disorder [facility] Diagnosis Chronic left shoulder pain- Primary Pain in joint, shoulder region Hyperlipidemia, mixed Mixed hyperlipidemia Tear of left biceps muscle, subsequent encounter Left arm weakness Other musculoskeletal symptoms referable to limbs PTSD (post-traumatic stress disorder) Posttraumatic stress disorder Anxiety and depression Dysthymic disorder Palpitations- Primary Paroxysmal tachycardia (HCC) Paroxysmal tachycardia, unspecified PVC (premature ventricular contraction) Other premature beats Pre-syncope Syncope and collapse Bigeminy Other specified cardiac dysrhythmias Supraventricular tachycardia (HCC) Other specified cardiac dysrhythmias documented in this encounter [facility] for referral (narrative)* Diagnostic Procedure Only (Urgent) - Closed Specialty Diagnoses / Procedures Referred By Rodolfo witt Referred To Contact XR IMAGING Diagnoses Elbow pain, left Procedures XR ELBOW SPECIAL VIEWS AP/LAT/OTHER LEFT RADEX ELBOW COMPLETE MINIMUM 3 VIEWS Heber Ferrell MD [address] [place] [address] Xr Imaging Referral ID Status Reason Start Date Expiration Date V isits Requested Visits Authorized [id number] Closed Auto-Generate d Referral 12/04/2021 01/03/2023 1 1 [facility] for referral (narrative)* Outpatient Procedure (Routine) - Pending Review Specialty Diagnoses / Procedures Referred By Rodolfo witt Referred To Contact [facility] Diagnoses Twitch Tic disorder Procedures EPIL EEG ROUTINE ELECTROENCEPHALOGRAM REC COMA/SLEEP ONLY Norm Hernandez Jr., MD [address] [id number] [facility] [place] [address] [place] [address] Referral ID Status Reason Start Date Expiration Date Visits Requested Visits Authorized [id number] Pending Review Auto-Generat ed Referral 2 05/07/2023 1 [facility] Diagnostic Procedure Only (Routine) - Pending Review Specialty Diagnoses / Procedures Referred By Contac t Referred To Contact XR IMAGING Diagnoses Arm swelling Procedures XR CHEST 1V FRONTAL PORT RADIOLOGIC EXAM CHEST SINGLE VIEW Chela Sheridan [place] [address] Xr Imaging Referral ID Status Reason Start Date Expiration Date Visits Requested Visits Authorized [id number] Pending Review Auto-Generat ed Referral 06/18/2022 07/18/2023 1 1 * Diagnostic Procedure Only (Routine) - Pending Review Specialty Diagnoses / Procedures Referred By Contac t Referred To Contact US IMAGING Diagnoses Arm swelling Procedures US MUSCLE RT US LMTD JOINT/OTH NONVASC XTR STRUX R-T W/IMG Chela [place]idan [place] [facility] [address] Us Imaging Referral ID Status Reason Start Date Expiration Date Visits Requested Visits Authorized [id number] Pending Review Auto-Generat ed Referral 06/18/2022 07/18/2023 1 1 [facility] for referral (narrative)* Diagnostic Procedure Only (Routine) - Authorized Specialty Diagnoses / Procedures Referred By Contac t Referred To Contact BR IMAGING Diagnoses Nipple discharge Procedures BELEN DIAGNOSTIC BILATERAL DIAGNOSTIC MAMMOGRAPHY COMPUTER-AIDED DETCJ Isabel Haskins APRN.CNM [address] [place] [address] [facility] [address] [place] [address] Referral ID Status Reason Start Date Expiration Date Visits Requested Visits Authorized [id number] Authorized Auto-Generat ed Referral 09/07/2023 10/06/2024 1 1 * Diagnostic Procedure Only (Routine) - Pending Review Specialty Diagnoses / Procedures Referred By Contac t Referred To Contact BR IMAGING Diagnoses Nipple discharge Procedures US BREAST LTD RIGHT US BREAST UNI REAL TIME WITH IMAGE LIMITED Isabel Morales APRN.CNM [address] [place] [address] [facility] [address] [place] [phone] Referral ID Status Reason Start Date Expiration Date Visits Requested Visits Authorized [id number] Pending Review Auto-Generat ed Referral 09/07/2023 10/06/2024 1 1 [facility] for referral (narrative)* Diagnostic Procedure Only (Routine) - Closed Specialty Diagnoses / Procedures Referred By Contac t Referred To Contact BR IMAGING Diagnoses Nipple discharge Procedures US BREAST LTD RIGHT US BREAST UNI REAL TIME WITH IMAGE LIMITED Isabel Morales APRN.CNM [address] [place] [address] [facility] [address] [place] [phone] Referral ID Status Reason Start Date Expiration Date V isits Requested Visits Authorized [id number] Closed Auto-Generate d Referral 09/07/2023 10/06/2024 1 1 [facility] for referral (narrative)* Outpatient Procedure (Routine) - Pending Review Specialty Diagnoses / Procedures Referred By Contac t Referred To Contact [facility] Diagnoses Dysmenorrhea Procedures INSERT INTRAUTERINE DEVICE LEVONORGESTREL IU 52MG 5 YR INSERT INTRAUTERINE DEVICE Adele Costa APRN.CNP [address] [place] [address] [facility] [address] [place] [address] Referral ID Status Reason Start Date Expiration Date Visits Requested Visits Authorized [id number] Pending Review Auto-Generat ed Referral 12/14/2023 12/13/2024 1 1 [facility] for referral (narrative)* Diagnostic Procedure Only (Urgent) - Closed Specialty Diagnoses / Procedures Referred By Contac t Referred To Contact XR IMAGING Diagnoses Elbow pain, left Procedures XR ELBOW SPECIAL VIEWS AP/LAT/OTHER LEFT RADEX ELBOW COMPLETE MINIMUM 3 VIEWS Heber Ferrell MD [address] [place] [address] [place] [address] Referral ID Status Reason Start Date Expiration Date V isits Requested Visits Authorized [id number] Closed Auto-Generate d Referral 12/04/2021 01/03/2023 1 1 [facility] for referral (narrative)* Consultation (Routine) - Pending Review Specialty Diagnoses / Procedures [facility] To [facility] Speech Pathology / Speech Therapy Diagnoses [place] [address] [place] [address] Referral ID Status Reason Start Date Expiration Date Visits Requested Visits Authorized [id number] Pending Review Specialty Services Required 02/15/2025 1 1 [facility] Work Phone: [facility] for referral (narrative)* Diagnostic Procedure Only (Routine) - Authorized Specialty Diagnoses / Procedures Referred By Contac t Referred To Contact BR IMAGING Diagnoses Encounter for screening mammogram for malignant neoplasm of breast Procedures BELEN SCREENING W SANTINO SCREENING DIGITAL BREAST TOMOSYNTHESIS BI SCREENING MAMMOGRAPHY BI 2-VIEW BREAST INC CAD Nga Michel MD [address] [place] [address] [facility] [address] [place] [address] Referral ID Status Reason Start Date Expiration Date Visits Requested Visits Authorized [id number] Authorized Auto-Generat ed Referral 4 04/04/2025 1 1 [facility] for referral (narrative)No reason for [facility]: Reason for visit Narrative* Diagnostic Procedure Only (Routine) - Authorized Specialty Diagnoses / Procedures Referred By Contac t Referred To Contact XR IMAGING Diagnoses Arm swelling Procedures XR CHEST 1V FRONTAL PORT RADIOLOGIC EXAM CHEST SINGLE VIEW Chela Sheridan DO [address] [place] [address] [place] [address] Referral ID Status Reason Start Date Expiration Date Visits Requested Visits Authorized [id number] Authorized Auto-Generat ed Referral 06/18/2022 07/18/2023 1 1 [facility] for visit Narrative* Diagnostic Procedure Only (Routine) - Closed Specialty Diagnoses / Procedures Referred By Contac t Referred To Contact BR IMAGING Diagnoses Nipple discharge Procedures BELEN DIAGNOSTIC BILATERAL DIAGNOSTIC MAMMOGRAPHY COMPUTER-AIDED DETCJ Isabel Haskins APRN.[facility] [address] [place] [address] [facility] [address] [place] [address] Referral ID Status Reason Start Date Expiration Date V isits Requested Visits Authorized [id number] Closed Auto-Generate d Referral 09/07/2023 10/06/2024 1 1 [facility] for visit Narrative* Diagnostic Procedure Only (Urgent) - Closed Specialty Diagnoses / Procedures Referred By Contac t Referred To Contact XR IMAGING Diagnoses Elbow pain, left Procedures XR ELBOW SPECIAL VIEWS AP/LAT/OTHER LEFT RADEX ELBOW COMPLETE MINIMUM 3 VIEWS Heber Ferrell MD [address] [place] [address] [place] [address] Referral ID Status Reason Start Date Expiration Date V isits Requested Visits Authorized [id number] Closed Auto-Generate d Referral 12/04/2021 01/03/2023 1 1 [facility] for visit Narrative* Referral (Routine) - Open Specialty Diagnoses / Procedures Referred By Contac t Referred To Contact Diagnoses Family history of defect Procedures Genetic Sendout: Grandparent sample for whole exome sequencing [place] [address] Phone: tel: fax: Referral ID Status Reason Start Date Expiration Date Visits Re quested Visits Authorized [id number] Open 05/25/2024 05/25/2025 1 1 [facility] Summary Purpose Family History No Family History Records Found Relationship Condition Age at Onset Recorded Date/T cady mother Rheumatoid arthritis Unknown Cardiac disease Unknown father Diabetes mellitus Unknown Chronic obstructive pulmonary disease Unk nown sister Asthma Unknown Diabetes mellitus Unknown grandmother Transient ischemic attack Unknown Advance Directives No Advanced Directives Records FoundDocuments on File Type Date Recorded 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 Power of Tattoo Technician Documents on File Type Date Recorded 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 Advance Directive(s) 12/31/2019 8:28 AM Advance Directive(s) 02/12/2014 7:36 AM Advance Directive(s) 02/12/2014 7:38 AM Advance Directive Response Recorded Date/ Time Advance Directives No March 09, 2021 1:08pm Living Will Yes September 11, 2021 10 :22pm Power of Tattoo Technician No September 11, 2021 10:22pm Documents on File Type Date Recorded 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 Advance Directive(s) 12/31/2019 8:28 AM Advance Directive(s) 02/12/2014 7:36 AM Advance Directive(s) 02/12/2014 7:38 AM Documents on File Type Date Recorded 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 Advance Directive(s) 02/12/2014 7:36 AM Advance Directive(s) 02/12/2014 7:38 AM Documents on File Type Date Recorded 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 Advance Directive(s) 02/12/2014 7:36 AM Advance Directive(s) 02/12/2014 7:38 AM Advance Directive Response Recorded Date/ Time Advance Directives No March 09, 2021 12:08pm Living Will Yes September 11, 2021 9: 22pm Power of Tattoo Technician No September 11, 2021 9:22pm Documents on File Type Date Recorded 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 [address] Referral ID Status Reason Start Date Expiration Date Visits Requested Visits Authorized [id number] Authorized PCP Requested Referral 07/31/2021 07/31/2022 1 1 Specialty Diagnoses / Procedures Referred By Contac t Referred To Contact Neurology Diagnoses Facial paresthesia Intermittent tremor Procedures CONSULT TO NEUROLOGY OFFICE/OUTPATIENT [facility] 60-74 MINUTES Briana Leggett APRN.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 [address] [place] [address] Referral ID Status Reason Start Date Expiration Date Visits Requested Visits Authorized [id number] Authorized PCP Requested Referral 01/18/2022 01/18/2023 1 1 Specialty Diagnoses / Procedures Referred By Contac t Referred To Contact [facility] Diagnoses Chest pain, unspecified type Procedures ECG COMPLETE ECG ROUTINE ECG W/LEAST 12 LDS W/I&R Briana Leggett APRN.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 [address] [place] [address] [facility] [address] [place] [address] Referral ID Status Reason Start Date Expiration Date Visits Requested Visits Authorized [id number] Authorized Auto-Generat ed Referral 01/18/2022 01/18/2023 1 1 Specialty Diagnoses / Procedures Referred By Contac t Referred To Contact Diagnoses Moderate persistent asthma with acute exacerbation Cough Briana Leggett APRN.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 [address] [place] [address] Referral ID Status Reason Start Date Expiration Date Visits Re quested Visits Authorized [id number] Closed 1 1 Specialty Diagnoses / Procedures Referred By Contac t Referred To Contact CT IMAGING Diagnoses Soft tissue mass Procedures CT PELVIS W IVCON CT PELVIS W/CONTRAST MATERIAL Zayra Becker MD [address] [place] [address] Ct Imaging Referral ID Status Reason Start Date Expiration Date Visits Requested Visits Authorized [id number] Authorized Auto-Generat ed Referral 03/12/2022 05/11/2022 1 1 Specialty Diagnoses / Procedures Referred By Contac t Referred To Contact General Surgery Diagnoses Soft tissue mass Procedures CONSULT TO GENERAL SURGERY OFFICE/OUTPATIENT [facility] 60-74 MINUTES Zayra Becker MD [address] [place] [address] Referral ID Status Reason Start Date Expiration Date Visits Requested Visits Authorized [id number] Authorized PCP Requested Referral 03/18/2023 1 1 Specialty Diagnoses / Procedures Referred By Contac t Referred To Contact MR IMAGING Diagnoses Acute pain of right shoulder Traumatic tear of right rotator cuff, unspecified tear extent, initial encounter Procedures MRI SHOULDER WO IVCON RT MRI ANY JT UPPER EXTREMITY W/O CONTRAST MATRL Mitchel Staton MD [address] [place] [address] Mr Imaging Referral ID Status Reason Start Date Expiration Date Visits Requested Visits Authorized [id number] Additional Clinical Info Needed Auto-Generat ed Referral 04/12/2022 05/12/2023 1 1 Referral ID Status Reason Start Date Expiration Date Visits Re quested Visits Authorized [id number] Closed 1 1 Specialty Diagnoses / Procedures Referred By Contac t Referred To Contact Gastroenterology Diagnoses Hemorrhoids, unspecified hemorrhoid type Procedures CONSULT TO GASTROENTEROLOGY OFFICE/OUTPATIENT [facility] 60 MINUTES Adele Costa APRN.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 [address] [place] [address] Referral ID Status Reason Start Date Expiration Date Visits Requested Visits Authorized [id number] Authorized PCP Requested Referral 06/16/2023 06/15/2024 1 1 Specialty Diagnoses / Procedures Referred By Contac t Referred To Contact General Surgery Diagnoses Nipple discharge Procedures CONSULT TO GENERAL SURGERY OFFICE/OUTPATIENT [facility] 60 MINUTES Pauline Puentes MD [address] [place] [address] Referral ID Status Reason Start Date Expiration Date Visits Requested Visits Authorized [id number] Authorized PCP Requested Referral 09/14/2023 09/13/2024 1 1 Medications Administered Section Inactive Administered Medications - up to 3 most recent administrations Medication Order MAR Action Action Date Dose Rate Site betamethasone acetate-betamethasone sodium phosphate 6 mg injection (CELESTONE) 6 mg, Injection - FOR ORTHO USE ONLY, ONE TIME INJECTION, 1 dose, Starting on Tue07/31/21 at 1930, Until Tue07/31/21 at 1930 Given 07/31/2021 7:30 PM EDT 6 mg [...] 0930, Until Tue12/02/21 at 2128, Administer for applanation tonometry. In the event of a Fluress shortage, administer [place]-Fluor 1 drop into both eyes as directed [...] Given 12/02/2021 9:04 AM EDT 1 Drop Chief Complaint and Reason for Visit Chief Complaint right shoulder NASAL CONGESTION/PRESSURE/COVID TEST NUMBNESS NUMBNESS 3 M FU PRIORITY lightheaded Reason for Visit Right shoulder pain Acute sinusitis, unspecified Trigeminal neuropathy Chief Complaint NASAL CONGESTION/PRE SSURE/COVID TEST NUMBNESS NUMBNESS 3 M FU PRIORITY lightheaded FREQUENT PVC'S Reason for Visit Acute sinusitis, uns pecified Trigeminal neuropathy Chief Complaint lightheaded FREQUENT PVC'S 6 m fu 4 M FU E ORDER Reason for Visit Essential hypertensi on Hyperlipidemia Palpitations PVC's (premature ventricular contractions) Motor and vocal tic disorder Neck pain Trigeminal neuropathy Chief Complaint 6 m fu 4 M FU E ORDER CERVICALGIA, R SHOULDER PAIN. RX HERE Reason for Visit Essential hypertensi on Hyperlipidemia Palpitations PVC's (premature ventricular contractions) Motor and vocal tic disorder Neck pain Trigeminal neuropathy Chief Complaint 6 M FU TIC DISORDER Reason for Visit Essential hypertensi on Hyperlipidemia Palpitations PVC's (premature ventricular contractions) Chief Complaint LEFT KNEE Rm 2 LEFT KNEE ITBAND SYND L. L KNEE PAIN. RX HERE Reason for Visit Iliotibial band synd traci, left leg Pes anserinus bursitis of left knee Left knee pain Iliotibial band syndrome, left leg Patellofemoral disorders, left knee Pes anserinus bursitis of left knee Left knee pain Chief Complaint LEFT KNEE 1 Y FU LT KNEE PAIN LEFT KNEE F/U MORBID OBESITY PAIN IN BOTH KNEES RX HERE Reason for Visit Iliotibial band synd traci, left leg Patellofemoral disorders, left knee Pes anserinus bursitis of left knee Left knee pain Essential hypertension Hyperlipidemia Palpitations PVC's (premature ventricular contractions) Patellofemoral maltracking Patellofemoral syndrome of both knees Chief Complaint 1 Y FU LT KNEE PAIN LEFT KNEE F/U MORBID OBESITY MORBID OBESITY MORBID OBESITY PAIN IN BOTH KNEES RX HERE Reason for Visit Essential hypertensi on Hyperlipidemia Palpitations PVC's (premature ventricular contractions) Patellofemoral maltracking Patellofemoral syndrome of both knees Chief Complaint LEFT KNEE F/U MORBID OBESITY MORBID OBESITY MORBID OBESITY PAIN IN BOTH KNEES RX HERE MORBID OBESITY Reason for Visit Patellofemoral maltr acking Patellofemoral syndrome of both knees Chief Complaint MORBID OBESITY MORBID OBESITY PAIN IN BOTH KNEES RX HERE MORBID OBESITY MORBID OBESITY COUGH, LOW GRADE FEVER, FATIGUE INT LABS Reason for Visit Acute upper respirat ory infection Chief Complaint MORBID OBESITY PAIN IN BOTH KNEES RX HERE MORBID OBESITY MORBID OBESITY COUGH, LOW GRADE FEVER, FATIGUE INT LABS MORBID OBESITY Reason for Visit Acute upper respirat ory infection Chief Complaint MORBID OBESITY MORBID OBESITY COUGH, LOW GRADE FEVER, FATIGUE INT LABS MORBID OBESITY MORBID OBESITY Reason for Visit Acute upper respirat ory infection Chief Complaint Admit Date ABN HOLTER October 19, 2024 10:2 7am Reason for Visit Admit Date Essential hypertension October 19, 2024 1 0:27am Hyperlipidemia October 19, 2024 10:2 7am Palpitations October 19, 2024 10:2 7am PVC's (premature ventricular contraction s) October 19, 2024 10:27am Additional Source Comments INFORMATION SOURCE (unrecogn ized section and content) DATE CREATED AUTHOR 08/05/2018 [facility] DATE CREATED AUTHOR AUTHOR'S ORGANIZ ATION 11/29/2019 [facility] DATE CREATED AUTHOR AUTHOR'S ORGANIZ ATION 12/24/2022 [facility] DATE CREATED AUTHOR AUTHOR'S ORGANIZ ATION 03/26/2024 [facility] DATE CREATED AUTHOR AUTHOR'S ORGANIZ ATION 04/05/2024 [facility] DATE CREATED AUTHOR AUTHOR'S ORGANIZ ATION 06/24/2024 [facility] DATE CREATED AUTHOR AUTHOR'S ORGANIZ ATION 10/22/2024 [facility] DATE CREATED AUTHOR AUTHOR'S ORGANIZ ATION 11/06/2024 [facility] DATE CREATED AUTHOR AUTHOR'S MILY RÍOS 12/16/2024 [facility] Source Comments (unrecognize d section and content) In the event this informatio n is protected by the Federal Confidentiality of Alcohol and Drug Abuse Patient Records regulations: The Federal rules restrict any use of the information to criminally investigate or prosecute any alcohol or drug abuse patient.[facility] Hospital[facility] the event this information is protected by the Federal Confidentiality of Alcohol and Drug Abuse Patient Records regulations: The Federal rules restrict any use of the information to criminally investigate or prosecute any alcohol or drug abuse patient.[facility] HospitalIn the event this information is protected by the Federal Confidentiality of Alcohol and Drug Abuse Patient Records regulations: The Federal rules restrict any use of the information to criminally investigate or prosecute any alcohol or drug abuse patient.[facility] HospitalIn the event this information is protected by the Federal Confidentiality of Alcohol and Drug Abuse Patient Records regulations: The Federal rules restrict any use of the information to criminally investigate or prosecute any alcohol or drug abuse patient.[facility] HospitalIn the event this information is protected by the Federal Confidentiality of Alcohol and Drug Abuse Patient Records regulations: The Federal rules restrict any use of the information to criminally investigate or prosecute any alcohol or drug abuse patient.[facility] HospitalIn the event this information is protected by the Federal Confidentiality of Alcohol and Drug Abuse Patient Records regulations: The Federal rules restrict any use of the information to criminally investigate or prosecute any alcohol or drug abuse patient.[facility] HospitalIn the event this information is protected by the Federal Confidentiality of Alcohol and Drug Abuse Patient Records regulations: The Federal rules restrict any use of the information to criminally investigate or prosecute any alcohol or drug abuse patient.[facility] HospitalIn the event this information is protected by the Federal Confidentiality of Alcohol and Drug Abuse Patient Records regulations: The Federal rules restrict any use of the information to criminally investigate or prosecute any alcohol or drug abuse patient.[facility] HospitalIn the event this information is protected by the Federal Confidentiality of Alcohol and Drug Abuse Patient Records regulations: The Federal rules restrict any use of the information to criminally investigate or prosecute any alcohol or drug abuse patient.[facility] HospitalIn the event this information is protected by the Federal Confidentiality of Alcohol and Drug Abuse Patient Records regulations: The Federal rules restrict any use of the information to criminally investigate or prosecute any alcohol or drug abuse patient.[facility] HospitalIn the event this information is protected by the Federal Confidentiality of Alcohol and Drug Abuse Patient Records regulations: The Federal rules restrict any use of the information to criminally investigate or prosecute any alcohol or drug abuse patient.[facility] HospitalIn the event this information is protected by the Federal Confidentiality of Alcohol and Drug Abuse Patient Records regulations: The Federal rules restrict any use of the information to criminally investigate or prosecute any alcohol or drug abuse patient.[facility] HospitalIn the event this information is protected by the Federal Confidentiality of Alcohol and Drug Abuse Patient Records regulations: The Federal rules restrict any use of the information to criminally investigate or prosecute any alcohol or drug abuse patient.[facility] HospitalIn the event this information is protected by the Federal Confidentiality of Alcohol and Drug Abuse Patient Records regulations: The Federal rules restrict any use of the information to criminally investigate or prosecute any alcohol or drug abuse patient.[facility] HospitalIn the event this information is protected by the Federal Confidentiality of Alcohol and Drug Abuse Patient Records regulations: The Federal rules restrict any use of the information to criminally investigate or prosecute any alcohol or drug abuse patient.[facility] HospitalIn the event this information is protected by the Federal Confidentiality of Alcohol and Drug Abuse Patient Records regulations: The Federal rules restrict any use of the information to criminally investigate or prosecute any alcohol or drug abuse patient.[facility] HospitalIn the event this information is protected by the Federal Confidentiality of Alcohol and Drug Abuse Patient Records regulations: The Federal rules restrict any use of the information to criminally investigate or prosecute any alcohol or drug abuse patient.[facility] HospitalIn the event this information is protected by the Federal Confidentiality of Alcohol and Drug Abuse Patient Records regulations: The Federal rules restrict any use of the information to criminally investigate or prosecute any alcohol or drug abuse patient.[facility] HospitalIn the event this information is protected by the Federal Confidentiality of Alcohol and Drug Abuse Patient Records regulations: The Federal rules restrict any use of the information to criminally investigate or prosecute any alcohol or drug abuse patient.[facility] HospitalIn the event this information is protected by the Federal Confidentiality of Alcohol and Drug Abuse Patient Records regulations: The Federal rules restrict any use of the information to criminally investigate or prosecute any alcohol or drug abuse patient.[facility] HospitalIn the event this information is protected by the Federal Confidentiality of Alcohol and Drug Abuse Patient Records regulations: The Federal rules restrict any use of the information to criminally investigate or prosecute any alcohol or drug abuse patient.[facility] HospitalIn the event this information is protected by the Federal Confidentiality of Alcohol and Drug Abuse Patient Records regulations: The Federal rules restrict any use of the information to criminally investigate or prosecute any alcohol or drug abuse patient.[facility] HospitalIn the event this information is protected by the Federal Confidentiality of Alcohol and Drug Abuse Patient Records regulations: The Federal rules restrict any use of the information to criminally investigate or prosecute any alcohol or drug abuse patient.[facility] HospitalIn the event this information is protected by the Federal Confidentiality of Alcohol and Drug Abuse Patient Records regulations: The Federal rules restrict any use of the information to criminally investigate or prosecute any alcohol or drug abuse patient.[facility] HospitalIn the event this information is protected by the Federal Confidentiality of Alcohol and Drug Abuse Patient Records regulations: The Federal rules restrict any use of the information to criminally investigate or prosecute any alcohol or drug abuse patient.[facility] HospitalIn the event this information is protected by the Federal Confidentiality of Alcohol and Drug Abuse Patient Records regulations: The Federal rules restrict any use of the information to criminally investigate or prosecute any alcohol or drug abuse patient.[facility] HospitalIn the event this information is protected by the Federal Confidentiality of Alcohol and Drug Abuse Patient Records regulations: The Federal rules restrict any use of the information to criminally investigate or prosecute any alcohol or drug abuse patient.[facility] HospitalIn the event this information is protected by the Federal Confidentiality of Alcohol and Drug Abuse Patient Records regulations: The Federal rules restrict any use of the information to criminally investigate or prosecute any alcohol or drug abuse patient.[facility] HospitalIn the event this information is protected by the Federal Confidentiality of Alcohol and Drug Abuse Patient Records regulations: The Federal rules restrict any use of the information to criminally investigate or prosecute any alcohol or drug abuse patient.[facility] HospitalIn the event this information is protected by the Federal Confidentiality of Alcohol and Drug Abuse Patient Records regulations: The Federal rules restrict any use of the information to criminally investigate or prosecute any alcohol or drug abuse patient.[facility] HospitalIn the event this information is protected by the Federal Confidentiality of Alcohol and Drug Abuse Patient Records regulations: The Federal rules restrict any use of the information to criminally investigate or prosecute any alcohol or drug abuse patient.[facility] HospitalIn the event this information is protected by the Federal Confidentiality of Alcohol and Drug Abuse Patient Records regulations: The Federal rules restrict any use of the information to criminally investigate or prosecute any alcohol or drug abuse patient.[facility] HospitalIn the event this information is protected by the Federal Confidentiality of Alcohol and Drug Abuse Patient Records regulations: The Federal rules restrict any use of the information to criminally investigate or prosecute any alcohol or drug abuse patient.[facility] HospitalIn the event this information is protected by the Federal Confidentiality of Alcohol and Drug Abuse Patient Records regulations: The Federal rules restrict any use of the information to criminally investigate or prosecute any alcohol or drug abuse patient.[facility] HospitalIn the event this information is protected by the Federal Confidentiality of Alcohol and Drug Abuse Patient Records regulations: The Federal rules restrict any use of the information to criminally investigate or prosecute any alcohol or drug abuse patient.[facility] HospitalIn the event this information is protected by the Federal Confidentiality of Alcohol and Drug Abuse Patient Records regulations: The Federal rules restrict any use of the information to criminally investigate or prosecute any alcohol or drug abuse patient.[facility] HospitalIn the event this information is protected by the Federal Confidentiality of Alcohol and Drug Abuse Patient Records regulations: The Federal rules restrict any use of the information to criminally investigate or prosecute any alcohol or drug abuse patient.[facility] HospitalIn the event this information is protected by the Federal Confidentiality of Alcohol and Drug Abuse Patient Records regulations: The Federal rules restrict any use of the information to criminally investigate or prosecute any alcohol or drug abuse patient.[facility] HospitalIn the event this information is protected by the Federal Confidentiality of Alcohol and Drug Abuse Patient Records regulations: The Federal rules restrict any use of the information to criminally investigate or prosecute any alcohol or drug abuse patient.[facility] HospitalIn the event this information is protected by the Federal Confidentiality of Alcohol and Drug Abuse Patient Records regulations: The Federal rules restrict any use of the information to criminally investigate or prosecute any alcohol or drug abuse patient.[facility] HospitalIn the event this information is protected by the Federal Confidentiality of Alcohol and Drug Abuse Patient Records regulations: The Federal rules restrict any use of the information to criminally investigate or prosecute any alcohol or drug abuse patient.[facility] HospitalIn the event this information is protected by the Federal Confidentiality of Alcohol and Drug Abuse Patient Records regulations: The Federal rules restrict any use of the information to criminally investigate or prosecute any alcohol or drug abuse patient.[facility] HospitalIn the event this information is protected by the Federal Confidentiality of Alcohol and Drug Abuse Patient Records regulations: The Federal rules restrict any use of the information to criminally investigate or prosecute any alcohol or drug abuse patient.[facility] HospitalIn the event this information is protected by the Federal Confidentiality of Alcohol and Drug Abuse Patient Records regulations: The Federal rules restrict any use of the information to criminally investigate or prosecute any alcohol or drug abuse patient.[facility] HospitalIn the event this information is protected by the Federal Confidentiality of Alcohol and Drug Abuse Patient Records regulations: The Federal rules restrict any use of the information to criminally investigate or prosecute any alcohol or drug abuse patient.[facility] HospitalIn the event this information is protected by the Federal Confidentiality of Alcohol and Drug Abuse Patient Records regulations: The Federal rules restrict any use of the information to criminally investigate or prosecute any alcohol or drug abuse patient.[facility] HospitalIn the event this information is protected by the Federal Confidentiality of Alcohol and Drug Abuse Patient Records regulations: The Federal rules restrict any use of the information to criminally investigate or prosecute any alcohol or drug abuse patient.[facility] HospitalIn the event this information is protected by the Federal Confidentiality of Alcohol and Drug Abuse Patient Records regulations: The Federal rules restrict any use of the information to criminally investigate or prosecute any alcohol or drug abuse patient.[facility] HospitalIn the event this information is protected by the Federal Confidentiality of Alcohol and Drug Abuse Patient Records regulations: The Federal rules restrict any use of the information to criminally investigate or prosecute any alcohol or drug abuse patient.[facility] HospitalIn the event this information is protected by the Federal Confidentiality of Alcohol and Drug Abuse Patient Records regulations: The Federal rules restrict any use of the information to criminally investigate or prosecute any alcohol or drug abuse patient.[facility] HospitalIn the event this information is protected by the Federal Confidentiality of Alcohol and Drug Abuse Patient Records regulations: The Federal rules restrict any use of the information to criminally investigate or prosecute any alcohol or drug abuse patient.[facility] HospitalIn the event this information is protected by the Federal Confidentiality of Alcohol and Drug Abuse Patient Records regulations: The Federal rules restrict any use of the information to criminally investigate or prosecute any alcohol or drug abuse patient.[facility] HospitalIn the event this information is protected by the Federal Confidentiality of Alcohol and Drug Abuse Patient Records regulations: The Federal rules restrict any use of the information to criminally investigate or prosecute any alcohol or drug abuse patient.[facility] HospitalIn the event this information is protected by the Federal Confidentiality of Alcohol and Drug Abuse Patient Records regulations: The Federal rules restrict any use of the information to criminally investigate or prosecute any alcohol or drug abuse patient.[facility] HospitalIn the event this information is protected by the Federal Confidentiality of Alcohol and Drug Abuse Patient Records regulations: The Federal rules restrict any use of the information to criminally investigate or prosecute any alcohol or drug abuse patient.[facility] HospitalIn the event this information is protected by the Federal Confidentiality of Alcohol and Drug Abuse Patient Records regulations: The Federal rules restrict any use of the information to criminally investigate or prosecute any alcohol or drug abuse patient.[facility] HospitalIn the event this information is protected by the Federal Confidentiality of Alcohol and Drug Abuse Patient Records regulations: The Federal rules restrict any use of the information to criminally investigate or prosecute any alcohol or drug abuse patient.[facility] HospitalIn the event this information is protected by the Federal Confidentiality of Alcohol and Drug Abuse Patient Records regulations: The Federal rules restrict any use of the information to criminally investigate or prosecute any alcohol or drug abuse patient.[facility] HospitalIn the event this information is protected by the Federal Confidentiality of Alcohol and Drug Abuse Patient Records regulations: The Federal rules restrict any use of the information to criminally investigate or prosecute any alcohol or drug abuse patient.[facility] HospitalIn the event this information is protected by the Federal Confidentiality of Alcohol and Drug Abuse Patient Records regulations: The Federal rules restrict any use of the information to criminally investigate or prosecute any alcohol or drug abuse patient.[facility] HospitalIn the event this information is protected by the Federal Confidentiality of Alcohol and Drug Abuse Patient Records regulations: The Federal rules restrict any use of the information to criminally investigate or prosecute any alcohol or drug abuse patient.[facility] HospitalIn the event this information is protected by the Federal Confidentiality of Alcohol and Drug Abuse Patient Records regulations: The Federal rules restrict any use of the information to criminally investigate or prosecute any alcohol or drug abuse patient.[facility] HospitalIn the event this information is protected by the Federal Confidentiality of Alcohol and Drug Abuse Patient Records regulations: The Federal rules restrict any use of the information to criminally investigate or prosecute any alcohol or drug abuse patient.[facility] HospitalIn the event this information is protected by the Federal Confidentiality of Alcohol and Drug Abuse Patient Records regulations: The Federal rules restrict any use of the information to criminally investigate or prosecute any alcohol or drug abuse patient.[facility] HospitalIn the event this information is protected by the Federal Confidentiality of Alcohol and Drug Abuse Patient Records regulations: The Federal rules restrict any use of the information to criminally investigate or prosecute any alcohol or drug abuse patient.[facility] HospitalIn the event this information is protected by the Federal Confidentiality of Alcohol and Drug Abuse Patient Records regulations: The Federal rules restrict any use of the information to criminally investigate or prosecute any alcohol or drug abuse patient.[facility] HospitalIn the event this information is protected by the Federal Confidentiality of Alcohol and Drug Abuse Patient Records regulations: The Federal rules restrict any use of the information to criminally investigate or prosecute any alcohol or drug abuse patient.[facility] HospitalIn the event this information is protected by the Federal Confidentiality of Alcohol and Drug Abuse Patient Records regulations: The Federal rules restrict any use of the information to criminally investigate or prosecute any alcohol or drug abuse patient.[facility] HospitalIn the event this information is protected by the Federal Confidentiality of Alcohol and Drug Abuse Patient Records regulations: The Federal rules restrict any use of the information to criminally investigate or prosecute any alcohol or drug abuse patient.[facility] HospitalIn the event this information is protected by the Federal Confidentiality of Alcohol and Drug Abuse Patient Records regulations: The Federal rules restrict any use of the information to criminally investigate or prosecute any alcohol or drug abuse patient.[facility] HospitalIn the event this information is protected by the Federal Confidentiality of Alcohol and Drug Abuse Patient Records regulations: The Federal rules restrict any use of the information to criminally investigate or prosecute any alcohol or drug abuse patient.[facility] HospitalIn the event this information is protected by the Federal Confidentiality of Alcohol and Drug Abuse Patient Records regulations: The Federal rules restrict any use of the information to criminally investigate or prosecute any alcohol or drug abuse patient.[facility] HospitalIn the event this information is protected by the Federal Confidentiality of Alcohol and Drug Abuse Patient Records regulations: The Federal rules restrict any use of the information to criminally investigate or prosecute any alcohol or drug abuse patient.[facility] HospitalIn the event this information is protected by the Federal Confidentiality of Alcohol and Drug Abuse Patient Records regulations: The Federal rules restrict any use of the information to criminally investigate or prosecute any alcohol or drug abuse patient.[facility] HospitalIn the event this information is protected by the Federal Confidentiality of Alcohol and Drug Abuse Patient Records regulations: The Federal rules restrict any use of the information to criminally investigate or prosecute any alcohol or drug abuse patient.[facility] HospitalIn the event this information is protected by the Federal Confidentiality of Alcohol and Drug Abuse Patient Records regulations: The Federal rules restrict any use of the information to criminally investigate or prosecute any alcohol or drug abuse patient.[facility] HospitalIn the event this information is protected by the Federal Confidentiality of Alcohol and Drug Abuse Patient Records regulations: The Federal rules restrict any use of the information to criminally investigate or prosecute any alcohol or drug abuse patient.[facility] HospitalIn the event this information is protected by the Federal Confidentiality of Alcohol and Drug Abuse Patient Records regulations: The Federal rules restrict any use of the information to criminally investigate or prosecute any alcohol or drug abuse patient.[facility] HospitalIn the event this information is protected by the Federal Confidentiality of Alcohol and Drug Abuse Patient Records regulations: The Federal rules restrict any use of the information to criminally investigate or prosecute any alcohol or drug abuse patient.[facility] HospitalIn the event this information is protected by the Federal Confidentiality of Alcohol and Drug Abuse Patient Records regulations: The Federal rules restrict any use of the information to criminally investigate or prosecute any alcohol or drug abuse patient.[facility] HospitalIn the event this information is protected by the Federal Confidentiality of Alcohol and Drug Abuse Patient Records regulations: The Federal rules restrict any use of the information to criminally investigate or prosecute any alcohol or drug abuse patient.[facility] HospitalIn the event this information is protected by the Federal Confidentiality of Alcohol and Drug Abuse Patient Records regulations: The Federal rules restrict any use of the information to criminally investigate or prosecute any alcohol or drug abuse patient.[facility] HospitalIn the event this information is protected by the Federal Confidentiality of Alcohol and Drug Abuse Patient Records regulations: The Federal rules restrict any use of the information to criminally investigate or prosecute any alcohol or drug abuse patient.[facility] HospitalIn the event this information is protected by the Federal Confidentiality of Alcohol and Drug Abuse Patient Records regulations: The Federal rules restrict any use of the information to criminally investigate or prosecute any alcohol or drug abuse patient.[facility] HospitalIn the event this information is protected by the Federal Confidentiality of Alcohol and Drug Abuse Patient Records regulations: The Federal rules restrict any use of the information to criminally investigate or prosecute any alcohol or drug abuse patient.[facility] HospitalIn the event this information is protected by the Federal Confidentiality of Alcohol and Drug Abuse Patient Records regulations: The Federal rules restrict any use of the information to criminally investigate or prosecute any alcohol or drug abuse patient.[facility] HospitalIn the event this information is protected by the Federal Confidentiality of Alcohol and Drug Abuse Patient Records regulations: The Federal rules restrict any use of the information to criminally investigate or prosecute any alcohol or drug abuse patient.[facility] HospitalIn the event this information is protected by the Federal Confidentiality of Alcohol and Drug Abuse Patient Records regulations: The Federal rules restrict any use of the information to criminally investigate or prosecute any alcohol or drug abuse patient.[facility] HospitalIn the event this information is protected by the Federal Confidentiality of Alcohol and Drug Abuse Patient Records regulations: The Federal rules restrict any use of the information to criminally investigate or prosecute any alcohol or drug abuse patient.[facility] HospitalIn the event this information is protected by the Federal Confidentiality of Alcohol and Drug Abuse Patient Records regulations: The Federal rules restrict any use of the information to criminally investigate or prosecute any alcohol or drug abuse patient.[facility] HospitalIn the event this information is protected by the Federal Confidentiality of Alcohol and Drug Abuse Patient Records regulations: The Federal rules restrict any use of the information to criminally investigate or prosecute any alcohol or drug abuse patient.[facility] HospitalIn the event this information is protected by the Federal Confidentiality of Alcohol and Drug Abuse Patient Records regulations: The Federal rules restrict any use of the information to criminally investigate or prosecute any alcohol or drug abuse patient.[facility] HospitalIn the event this information is protected by the Federal Confidentiality of Alcohol and Drug Abuse Patient Records regulations: The Federal rules restrict any use of the information to criminally investigate or prosecute any alcohol or drug abuse patient.[facility] HospitalIn the event this information is protected by the Federal Confidentiality of Alcohol and Drug Abuse Patient Records regulations: The Federal rules restrict any use of the information to criminally investigate or prosecute any alcohol or drug abuse patient.[facility] Reason for Visit (unrecogniz ed section and content) Reason Comments Pain Follow Up Reason Comments Toothache tooth;a;kelvin off and on [...] tremor Specialty Diagnoses / Procedures Referred By Rodolfo t Referred To Contact Neurology Diagnoses Facial paresthesia Intermittent tremor Procedures CONSULT TO NEUROLOGY OFFICE/OUTPATIENT NEW HIGH MDM 60-74 MINUTES Oleksandr, WENDY Warren.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 [address] [place] [address] Referral ID Status Reason Start Date Expiration Date V isits Requested Visits Authorized [id number] Closed PCP Requested Referral 01/18/2022 01/18/2023 1 [...] Results Specialty Diagnoses / Procedures Referred By Contac t Referred To Contact CT IMAGING Diagnoses Soft tissue mass Procedures CT PELVIS W IVCON CT PELVIS W/CONTRAST MATERIAL Zayra Becker MD [address] [place] [address] [place] [address] Referral ID Status Reason Start Date Expiration Date V isits Requested Visits Authorized [id number] Closed Auto-Generate d Referral 03/12/2022 05/11/2022 1 1 Specialty Diagnoses / Procedures Referred By Contac t Referred To Contact MR IMAGING Diagnoses Acute pain of right shoulder Traumatic tear of right rotator cuff, unspecified tear extent, initial encounter Procedures MRI SHOULDER WO IVCON RT MRI ANY JT UPPER EXTREMITY W/O CONTRAST MATRL Mitchel Staton MD [address] [place] [address] Mr Imaging [facility] Referral ID Status Reason Start Date Expiration Date V isits Requested Visits Authorized [id number] Closed Auto-Generate d Referral 04/15/2022 06/14/2022 1 1 Reason Comments Insurance Authorization Reason Comments Patient Question BV Reason Comments Vaginal Discharge Reason Comments Vaginal Problem Reason Comments Consult Hemorrhoid consultat ion. Specialty Diagnoses / Procedures Referred By Contac t Referred To Contact Gastroenterology Diagnoses Hemorrhoids, unspecified hemorrhoid type Procedures CONSULT TO GASTROENTEROLOGY OFFICE/OUTPATIENT [facility] 60 MINUTES Adele Costa APRN.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 [address] [place] [address] Referral ID Status Reason Start Date Expiration Date V isits Requested Visits Authorized [id number] Closed PCP Requested Referral 06/16/2023 06/15/2024 1 1 Reason Comments hydradinitis flare up Reason Comments Breast Problem bloody discharge fro m right nipple Reason Comments Radiology US Specialty Diagnoses / Procedures Referred By Contac t Referred To Contact BR IMAGING Diagnoses Nipple discharge Procedures US BREAST LTD RIGHT US BREAST UNI REAL TIME WITH IMAGE LIMITED Isabel Morales APRN.CNM [address] [place] [address] Br Imaging [address] [place] [address] Referral ID Status Reason Start Date Expiration Date V isits Requested Visits Authorized [id number] Closed Auto-Generate d Referral 09/07/2023 10/06/2024 1 1 Reason Comments Sore Throat Nausea, diarrhea, delaney dyaches x1 day Reason Comments Consult Nipple discharge Specialty Diagnoses / Procedures Referred By Contac t Referred To Contact General Surgery Diagnoses Nipple discharge Procedures CONSULT TO GENERAL SURGERY OFFICE/OUTPATIENT [facility] 60 MINUTES Pauline Puentes MD [address] [place] [address] Referral ID Status Reason Start Date Expiration Date V isits Requested Visits Authorized [id number] Closed PCP Requested Referral 09/14/2023 09/13/2024 1 1 Reason Onset Date Comments Refill Request 10/25/2023 Reason Comments Rash itching x 3 weeks Reason Onset Date Comments Refill Request 12/06/2023 Reason Onset Date Comments Insertion Of IUD 01/13/2024 Specialty Diagnoses / Procedures Referred By [facility] Diagnoses Dysmenorrhea Encounter for insertion of intrauterine contraceptive device Encounter for removal of intrauterine contraceptive device Procedures INSERT INTRAUTERINE DEVICE LEVONORGESTREL IU 52MG 5 YR INSERT INTRAUTERINE DEVICE REMOVE INTRAUTERINE DEVICE Adele Costa, RIDES ATTENDANT.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 [address] 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 Reason Comments Urinary Problem Frequency x 2 daysLe ft ear pain x 4 days Reason Comments Results Urine Cx mixed Reason Comments Hoarseness Reason Comments Cough Chest congestion, lo w grade fever, fatigue, fatigue, sore throat, chest tightness, SOB, x 4 days Reason Comments Follow Up 3 month follow up Reason Onset Date Comments Refill Request 05/08/2024 Reason Comments Ear Problem Left ear pain, conge stion x 1 week Reason Comments Orders Reason Comments Imm/Inj Reason Comments Cough congestion, fever, b odyaches, chills and fatigue x 2 days Reason Comments Concern for pneumonia Reason Comments Recheck Follow up, Flu A on 07/15 cough Reason Comments Recheck 1 week follow up Reason Onset Date Comments Refill Request 09/04/2024 Reason Comments Recheck Follow up fatigue, c ontinuing to get worse Reason Onset Date Comments Results 09/07/2024 Reason Comments Results Reason Comments Follow Up Fatigue, pre-syncope , follows up with cardio 11/08 Reason Comments New Cardiac Patient Paroxysmal Tachycard ia Specialty Diagnoses / Procedures Referred By Contac t Referred To Contact Cardiology Diagnoses Pre-syncope Paroxysmal tachycardia (HCC) Bigeminy Procedures CONSULT TO CARDIOLOGY OFFICE/OUTPATIENT NEW HIGH MDM 60 MINUTES Briana Leggett APRN.VELVET [address] [place] [address] Phone: tel: fax: Referral ID Status Reason Start Date Expiration Date V isits Requested Visits Authorized [id number] Closed PCP Requested Referral 10/05/2024 10/05/2025 1 1 Reason Onset Date Comments Refill Request 11/19/2024 Reason Comments Patient Update Care Teams (unrecognized sec tion and content) Cork Slabs Sawyer Relationship Specialty Start Date End Date Koki Worthington MD [address] [place], [place] [address] PCP - General Internal Medicine 09/09/17 Andrez Ballesteros [address] [address] Specialty Eyelet Row Marker Cardiology 07/06/[address] [place] [address] Specialty Eyelet Row Marker Cardiology 07/09/20 Cork Slabs Sawyer Relationship Specialty Start Date End Date Koki Worthington MD [address] [facility] [place] [address] PCP - General Internal Medicine 09/09/[address] [place] [address] Specialty Eyelet Row Marker Cardiology 07/06/20 [address] SgYuliana [address] [place] [address] Specialty Eyelet Row Marker Cardiology 07/09/20 Cork Slabs Sawyer Relationship Specialty Start Date End Date Koki Worthington MD [address] [facility] [place] [address] PCP - General Internal Medicine 09/09/17 Andrez Ballesteros [address] [place] [address] Specialty Eyelet Row Marker Cardiology 07/06/[address]iana [address] [place] [address] Specialty Eyelet Row Marker Cardiology 07/09/20 Cork Slabs Sawyer Relationship Specialty Start Date End Date Koki Worthington MD [address] [facility] [place] [address] PCP - General Internal Medicine 09/09/[address] [place] [address] Specialty Eyelet Row Marker Cardiology 07/06/[address] [place] [address] Specialty Eyelet Row Marker Cardiology 07/09/20 Cork Slabs Sawyer Relationship Specialty Start Date End Date Koki Worthington MD [address] [facility] [place] [address] PCP - General Internal Medicine 09/09/[address] [place] [address] Specialty Eyelet Row Marker Cardiology 07/06/[address] [place] [address] Specialty Eyelet Row Marker Cardiology 07/09/20 Cork Slabs Sawyer Relationship Specialty Start Date End Date Koki Worthington MD [address] [facility] [place] [address] PCP - General Internal Medicine 09/09/17 Andrez Ballesteros [address] [place] [address] Specialty Eyelet Row Marker Cardiology 07/06/[address] [place] [address] Specialty Eyelet Row Marker Cardiology 07/09/20 Cork Slabs Sawyer Relationship Specialty Start Date End Date Koki Worthington MD [address] [facility] [place] [address] PCP - General Internal Medicine 09/09/17 Andrez Ballesteros [address] [place] [address] Specialty Eyelet Row Marker Cardiology 07/06/[address] [place] [address] Specialty Eyelet Row Marker Cardiology 07/09/20 Cork Slabs Sawyer Relationship Specialty Start Date End Date Koki Worthington MD [address] [facility] [place] [address] PCP - General Internal Medicine 09/09/[address] [place] [address] Specialty Eyelet Row Marker Cardiology 07/06/[address] [place] [address] Specialty Eyelet Row Marker Cardiology 07/09/20 Cork Slabs Sawyer Relationship Specialty Start Date End Date Koki Worthington MD [address] [facility] [place] [address] PCP - General Internal Medicine 09/09/17 Andrez Ballesteros [address] [place] [address] Specialty Eyelet Row Marker Cardiology 07/06/[address] [place] [address] Specialty Eyelet Row Marker Cardiology 07/09/20 Cork Slabs Sawyer Relationship Specialty Start Date End Date Koki Worthington MD [address] [facility] [place] [address] PCP - General Internal Medicine 09/09/17 Andrez Ballesteros [address] [place] [address] Specialty Eyelet Row Marker Cardiology 07/06/[address] [place] [address] Specialty Eyelet Row Marker Cardiology 07/09/20 Cork Slabs Sawyer Relationship Specialty Start Date End Date Koki Worthington MD [address] [facility] [place] [address] PCP - General Internal Medicine 09/09/17 Andrez Ballesteros [address] [place] [address] Specialty Eyelet Row Marker Cardiology 07/06/[address] [place] [address] Specialty Eyelet Row Marker Cardiology 07/09/20 Cork Slabs Sawyer Relationship Specialty Start Date End Date Koki Worthington MD [address] [facility] [place] [address] PCP - General Internal Medicine 09/09/17 Andrez Ballesteros [address] [place] [address] Specialty Eyelet Row Marker Cardiology 07/06/[address] [place] [address] Specialty Eyelet Row Marker Cardiology 07/09/20 Cork Slabs Sawyer Relationship Specialty Start Date End Date Koki Worthington MD [address] [facility] [place] [address] PCP - General Internal Medicine 09/09/17 Andrez Ballesteros [address] [place] [address] Specialty Eyelet Row Marker Cardiology 07/06/[address] [place] [address] Specialty Eyelet Row Marker Cardiology 07/09/20 Cork Slabs Sawyer Relationship Specialty Start Date End Date Koki Worthington MD [address] [facility] [place] [address] PCP - General Internal Medicine 09/09/17 Andrez Ballesteros [address] [place] [address] Specialty Eyelet Row Marker Cardiology 07/06/[address] [place] [address] Specialty Eyelet Row Marker Cardiology 07/09/20 Cork Slabs Sawyer Relationship Specialty Start Date End Date Koki Worthington MD [address] [facility] [place] [address] PCP - General Internal Medicine 09/09/17 nAdrez Ballesteros [address] [place] [address] Specialty Eyelet Row Marker Cardiology 07/06/[address] [place] [address] Specialty Eyelet Row Marker Cardiology 07/09/20 Cork Slabs Sawyer Relationship Specialty Start Date End Date Koki Worthington MD [address] [facility] [place] [address] PCP - General Internal Medicine 09/09/17 Andrez Ballesteros [address] [place] [address] Specialty Eyelet Row Marker Cardiology 07/06/[address] [place] [address] Specialty Eyelet Row Marker Cardiology 07/09/20 Cork Slabs Sawyer Relationship Specialty Start Date End Date Koki Worthington MD [address] [facility] [place] [address] PCP - General Internal Medicine 09/09/17 Andrez Ballesteros [address] [place] [address] Specialty Eyelet Row Marker Cardiology 07/06/[address] [place] [address] Specialty Eyelet Row Marker Cardiology 07/09/20 Team Status: Active Member Role Status Dates Dr. Koki Worthington MD Family Provider Active Dr. Koki Worthington MD Primary Care Provider Active Team Status: Inactive Member Role Status Dates Dr. Koki Worthington MD Primary Care Provider, Referring Provider Active Adore Miller EXPERT MEDICAL WRITER, EXPERT MEDICAL WRITER-C Attending Provider Active Team Status: Inactive Member Role Status Dates Dr. Koki Worthington MD Primary Care Provider Active Dr. Norm Hernandez MD Attending Provider Active Cork Slabs Sawyer Relationship Specialty Start Date End Date Koki Worthington MD [address] [facility] [place] [address] PCP - General Internal Medicine 09/09/17 Andrez Ballesteros [address] [place] [address] Specialty Eyelet Row Marker Cardiology 07/06/[address] [place] [address] Specialty Eyelet Row Marker Cardiology 07/09/20 Cork Slabs Sawyer Relationship Specialty Start Date End Date Koki Worthington MD [address] [facility] [place] [address] PCP - General Internal Medicine 09/09/17 Andrez Ballesteros [address] [place] [address] Specialty Eyelet Row Marker Cardiology 07/06/[address] [place] [address] Specialty Eyelet Row Marker Cardiology 07/09/20 Cork Slabs Sawyer Relationship Specialty Start Date End Date Koki Worthington MD [address] [facility] [place] [address] PCP - General Internal Medicine 09/09/[address] [place] [address] Specialty Eyelet Row Marker Cardiology 07/06/[address] [place] [address] Specialty Eyelet Row Marker Cardiology 07/09/20 Cork Slabs Sawyer Relationship Specialty Start Date End Date Koki Worthington MD [address] [facility] [place] [address] PCP - General Internal Medicine 09/09/17 Andrez Ballesteros [address] [place] [address] Specialty Eyelet Row Marker Cardiology 07/06/20 Paul Adore [address] [place] [address] Specialty Eyelet Row Marker Cardiology 07/09/20 Team Status: Inactive Member Role Status Dates Dr. Koki Worthington MD Primary Care Provider, Referring Provider Active HOLLI Cota Attending Provider Active Team Status: Inactive Member Role Status Dates Dr. Koki Worthington MD Primary Care Provider Active Dr. Gio Holguin MD Attending Provider Active Team Status: Inactive Member Role Status Dates Dr. Koki Worthington MD Primary Care Provider Active HOLLI Cota Attending Provider, Referring Provi annemarie Active Cork Slabs Sawyer Relationship Specialty Start Date End Date Koki Worthington MD [address] [facility] [place] [address] PCP - General Internal Medicine 09/09/17 Andrez Ballesteros [address] [place] [address] Specialty Eyelet Row Marker Cardiology 07/06/20 Paul Adore [address] [place] [address] Specialty Eyelet Row Marker Cardiology 07/09/20 Cork Slabs Sawyer Relationship Specialty Start Date End Date Koki Worthington MD [address] [facility] [place] [address] PCP - General Internal Medicine 09/09/17 Andrez Ballesteros [address] [place] [address]- Specialty Eyelet Row Marker Cardiology 07/06/20 Adore Miller [address] [place] [address] Specialty Eyelet Row Marker Cardiology 07/09/20 Cork Slabs Sawyer Relationship Specialty Start Date End Date Koki Worthington MD [address] [facility] [place] [address] PCP - General Internal Medicine 09/09/17 Andrez Ballesteros [address] [place] [address] Specialty Eyelet Row Marker Cardiology 07/06/20 Adore Miller [address] [place] [address] Specialty Eyelet Row Marker Cardiology 07/09/20 Team Status: Active Member Role Status Dates Dr. Koki Worthington MD Primary Care Provider Active Adore Miller EXPERT MEDICAL WRITER, EXPERT MEDICAL WRITER-C Attending Provider Active Team Status: Inactive Member Role Status Dates Dr. Koki Worthington MD Primary Care Provider, Referring Provider Active Eduardo DE LA GARZA, PA Attending Provider Active Team Status: Inactive Member Role Status Dates Dr. Koki Worthington MD Primary Care Provider Active Adore Miller EXPERT MEDICAL WRITER, EXPERT MEDICAL WRITER-C Attending Provider, Referring Pro vider Active Team Status: Active Member Role Status Dates Dr. Koki Worthington MD Primary Care Provider Active Eduardo DE LA GARZA, PA Attending Provider, Referring Prov ider Active Cork Slabs Sawyer Relationship Specialty Start Date End Date Koki Worthington MD [address] [facility] [address] PCP - General Internal Medicine 09/09/17 Andrez Ballesteros [address] [place] [address] Specialty Eyelet Row Marker Cardiology 07/06/20 Adore Miller [address] [place] [address] Specialty Eyelet Row Marker Cardiology 07/09/20 Cork Slabs Sawyer Relationship Specialty Start Date End Date Koki Worthington MD [address] [facility] [place] [address] PCP - General Internal Medicine 09/09/17 Andrez Ballesteros [address] [place] [address] Specialty Eyelet Row Marker Cardiology 07/06/20 Adore Miller [address] [place] [address] Specialty Eyelet Row Marker Cardiology 07/09/20 Cork Slabs Sawyer Relationship Specialty Start Date End Date Koki Worthington MD [address] [facility] [place] [address] PCP - General Internal Medicine 09/09/17 Andrez Ballesteros [address] [place] [address] Specialty Eyelet Row Marker Cardiology 07/06/20 Adore Miller [address] [place] [address] Specialty Eyelet Row Marker Cardiology 07/09/20 Cork Slabs Sawyer Relationship Specialty Start Date End Date Koki Worthington MD [address] [facility] [place] [address] PCP - General Internal Medicine 09/09/17 Andrez Ballesteros MD [address] [place] [address] Specialty Eyelet Row Marker Cardiology 07/06/20 Adore Miller [address] [place] [address] Specialty Eyelet Row Marker Cardiology 07/09/20 Team Status: Active Member Role Status Dates Dr. Koki Worthington MD Primary Care Provider Active Adore Miller EXPERT MEDICAL WRITER, EXPERT MEDICAL WRITER-C Attending Provider, Referring Pro vider Active Team Status: Inactive Member Role Status Dates Dr. Koki Worthington MD Primary Care Provider Active Eduardo DE AL GARZA, PA Attending Provider, Referring Prov ider Active Cork Slabs Sawyer Relationship Specialty Start Date End Date Koki Worthington MD [address] [facility] [place] [address] PCP - General Internal Medicine 09/09/17 Andrez Ballesteros MD [address] [place] [address], [place] [address] Specialty Eyelet Row Marker Cardiology 07/06/20 Adore Miller [address] [place] [address] Specialty Eyelet Row Marker Cardiology 07/09/20 Cork Slabs Sawyer Relationship Specialty Start Date End Date Koki Worthington MD [address] [place] [address] PCP - General Internal Medicine 09/09/17 Andrez Ballesteros MD [address] [place] [address] Specialty Eyelet Row Marker Cardiology 07/06/20 Adore Miller [address] [place] [address] Specialty Eyelet Row Marker Cardiology 07/09/20 Cork Slabs Sawyer Relationship Specialty Start Date End Date Koki Worthington MD [address] [facility] [place] [address] PCP - General Internal Medicine 09/09/17 Andrez Ballesteros MD [address] [place] [address] Specialty Eyelet Row Marker Cardiology 07/06/20 Adore Miller, RIDES ATTENDANT.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 [address] [place] [address] Specialty Eyelet Row Marker Cardiology 07/09/20 Team Status: Inactive Member Role Status Dates Dr. Koki Worthington MD Primary Care Provider, Referring Provider Active Eduardo DE LA GARZA, PA Attending Provider Active Cork Slabs Sawyer Relationship Specialty Start Date End Date Koki Worthington MD [address] [facility] [address] PCP - General Internal Medicine 09/09/17 Andrez Ballesteros MD [address] [place] [address] Specialty Eyelet Row Marker Cardiology 07/06/20 Adore Miller, RIDES ATTENDANT.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 [address] [place] [address] Specialty Eyelet Row Marker Cardiology 07/09/20 Cork Slabs Sawyer Relationship Specialty Start Date End Date Koki Worthington MD [address] [facility] [place] [address] PCP - General Internal Medicine 09/09/17 Andrez Ballesteros MD [address] [place] [address] Specialty Eyelet Row Marker Cardiology 07/06/20 Adore Miller RIDES ATTENDANT.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 [address] [place] [address] Specialty Eyelet Row Marker Cardiology 07/09/20 Cork Slabs Sawyer Relationship Specialty Start Date End Date Koki Worthington MD [address] [facility] [place] [address] PCP - General Internal Medicine 09/09/17 Andrez Ballesteros MD [address] [place] [address] Specialty Eyelet Row Marker Cardiology 07/06/20 Adore Miller RIDES ATTENDANT.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 [address] [place] [address] Specialty Eyelet Row Marker Cardiology 07/09/20 Cork Slabs Sawyer Relationship Specialty Start Date End Date Koki Worthingotn MD [address] [place] [address] PCP - General Internal Medicine 09/09/17 Andrez Ballesteros MD [address] [place] [address] Specialty Eyelet Row Marker Cardiology 07/06/20 Roof, Adore H, RIDES ATTENDANT.ROLLED OATS MILL OPERATOR [address] [place] [address] Specialty Eyelet Row Marker Cardiology 07/09/20 Cork Slabs Sawyer Relationship Specialty Start Date End Date Koki Worthington MD [address] [facility] [place] [address] PCP - General Internal Medicine 09/09/17 Andrez Ballesteros MD [address] [place] [address] Specialty Eyelet Row Marker Cardiology 07/06/20 Adore Miller, RIDES ATTENDANT.ROLLED OATS MILL OPERATOR [address] [place] [address] Specialty Eyelet Row Marker Cardiology 07/09/20 Cork Slabs Sawyer Relationship Specialty Start Date End Date Koki Worthington MD [address] [facility] [place] [address] PCP - General Internal Medicine 09/09/17 Andrez Ballesteros MD [address] [place] [address] Specialty Eyelet Row Marker Cardiology 07/06/20 Adore Miller, RIDES ATTENDANT.ROLLED OATS MILL OPERATOR [address] [place] [address] Specialty Eyelet Row Marker Cardiology 07/09/20 Cork Slabs Sawyer Relationship Specialty Start Date End Date Koki Worthington MD [address] [facility] [place] [address] PCP - General Internal Medicine 09/09/17 Andrez Ballesteros MD [address] [place] [address] Specialty Eyelet Row Marker Cardiology 07/06/20 Adore Miller RIDES ATTENDANT.ROLLED OATS MILL OPERATOR [address] [address] Specialty Eyelet Row Marker Cardiology 07/09/20 Cork Slabs Sawyer Relationship Specialty Start Date End Date Koki Worthington MD [address] [place] [address] PCP - General Internal Medicine 09/09/17 Andrez Ballesteros MD [address] [place] [address], [place] [address] Specialty Eyelet Row Marker Cardiology 07/06/20 Adore Miller RIDES ATTENDANT.ROLLED OATS MILL OPERATOR [address] [place] [address], [place] [address] Specialty Eyelet Row Marker Cardiology 07/09/20 Cork Slabs Sawyer Relationship Specialty Start Date End Date Koki Worthington MD [address] [place] [address] PCP - General Internal Medicine 09/09/17 Andrez Ballesteros MD [address] [place] [address], [place] [address] Specialty Eyelet Row Marker Cardiology 07/06/20 Adore Miller RIDES ATTENDANT.ROLLED OATS MILL OPERATOR [address] [place] [address] Specialty Eyelet Row Marker Cardiology 07/09/20 Cork Slabs Sawyer Relationship Specialty Start Date End Date Koki Worthington MD [address] [place] [address] PCP - General Internal Medicine 09/09/17 Andrez Ballesteros MD [address] [place] [address] Specialty Eyelet Row Marker Cardiology 07/06/20 Adore Miller, RIDES ATTENDANT.ROLLED OATS MILL OPERATOR [address] [place] [address] Specialty Eyelet Row Marker Cardiology 07/09/20 Cork Slabs Sawyer Relationship Specialty Start Date End Date Koki Worthington MD [address] [facility] [place] [address] PCP - General Internal Medicine 09/09/17 Andrez Ballesteros MD [address] [place] [address] Specialty Eyelet Row Marker Cardiology 07/06/20 Adore Miller, RIDES ATTENDANT.ROLLED OATS MILL OPERATOR [address] [place] [address] Specialty Eyelet Row Marker Cardiology 07/09/20 Cork Slabs Sawyer Relationship Specialty Start Date End Date Koki Worthington MD [address] [facility] [place] [address] PCP - General Internal Medicine 09/09/17 Andrez Ballesteros MD [address] [place] [address] Specialty Eyelet Row Marker Cardiology 07/06/20 Adore Miller, RIDES ATTENDANT.ROLLED OATS MILL OPERATOR [address] [place] [address] Specialty Eyelet Row Marker Cardiology 07/09/20 Cork Slabs Sawyer Relationship Specialty Start Date End Date Koki Worthington MD [address] [facility] [place] [address] PCP - General Internal Medicine 09/09/17 Andrez Ballesteros MD [address] [place] [address] Specialty Eyelet Row Marker Cardiology 07/06/20 Adore Miller RIDES ATTENDANT.ROLLED OATS MILL OPERATOR [address] [place] [address] Specialty Eyelet Row Marker Cardiology 07/09/20 Cork Slabs Sawyer Relationship Specialty Start Date End Date Koki Worthington MD [address] [facility] [place] [address] PCP - General Internal Medicine 09/09/17 Andrez Ballesteros MD [address] [place] [address] Specialty Eyelet Row Marker Cardiology 07/06/20 Adore Miller, RIDES ATTENDANT.ROLLED OATS MILL OPERATOR [address] [place] [address] Specialty Eyelet Row Marker Cardiology 07/09/20 Cork Slabs Sawyer Relationship Specialty Start Date End Date Koki Worthington MD [address] [facility] [place] [address] PCP - General Internal Medicine 09/09/17 Andrez Ballesteros MD [address] [place] [address] Specialty Eyelet Row Marker Cardiology 07/06/20 Adore Miller RIDES ATTENDANT.ROLLED OATS MILL OPERATOR [address] [place] [address] Specialty Eyelet Row Marker Cardiology 07/09/20 Cork Slabs Sawyer Relationship Specialty Start Date End Date Koki Worthington MD [address] [facility] [place] [address] PCP - General Internal Medicine 09/09/17 Andrez Ballesteros MD [address] [place] [address] Specialty Eyelet Row Marker Cardiology 07/06/20 Adore Miller, RIDES ATTENDANT.ROLLED OATS MILL OPERATOR [address] [place] [address] Specialty Eyelet Row Marker Cardiology 07/09/20 Cork Slabs Sawyer Relationship Specialty Start Date End Date Koki Worthington MD [address] [facility] [place] [address] PCP - General Internal Medicine 09/09/17 Andrez Ballesteros MD [address] [place] [address] Specialty Eyelet Row Marker Cardiology 07/06/20 Adore Miller, RIDES ATTENDANT.ROLLED OATS MILL OPERATOR [address] [place] [address] Specialty Eyelet Row Marker Cardiology 07/09/20 Cork Slabs Sawyer Relationship Specialty Start Date End Date Koki Worthington MD [address] [facility] [place] [address] PCP - General Internal Medicine 09/09/17 Andrez Ballesteros MD [address] [place] [address] Specialty Eyelet Row Marker Cardiology 07/06/20 Adore Miller RIDES ATTENDANT.ROLLED OATS MILL OPERATOR [address] [place] [address] Specialty Eyelet Row Marker Cardiology 07/09/20 Cork Slabs Sawyer Relationship Specialty Start Date End Date Koki Worthington MD [address] [facility] [place] [address] PCP - General Internal Medicine 09/09/17 Andrez Ballesteros MD [address] [place] [address] Specialty Eyelet Row Marker Cardiology 07/06/20 Adore Miller RIDES ATTENDANT.ROLLED OATS MILL OPERATOR [address] [place] [address] Specialty Eyelet Row Marker Cardiology 07/09/20 Cork Slabs Sawyer Relationship Specialty Start Date End Date Koki Worthington MD [address] [facility] [place] [address] PCP - General Internal Medicine 09/09/17 Andrez Ballesteros MD [address] [place] [address] Specialty Eyelet Row Marker Cardiology 07/06/20 Adore Miller RIDES ATTENDANT.ROLLED OATS MILL OPERATOR [address] [place] [address] Specialty Eyelet Row Marker Cardiology 07/09/20 Cork Slabs Sawyer Relationship Specialty Start Date End Date Koki Worthington MD [address] [place] [address] PCP - General Internal Medicine 01/13/24 Heber Holbrook MD [address] [facility] [place] [address] Referring Physician Otolaryngology 01/13/24 Cork Slabs Sawyer Relationship Specialty Start Date End Date Koki Worthington MD [address] [facility] [place] [address] PCP - General Internal Medicine 09/09/17 Andrez Ballesteros MD [address] [place] [address] Specialty Eyelet Row Marker Cardiology 07/06/20 Adore Miller RIDES ATTENDANT.ROLLED OATS MILL OPERATOR [address] [place] [address] Specialty Eyelet Row Marker Cardiology 07/09/20 Cork Slabs Sawyer Relationship Specialty Start Date End Date Koki Worthington MD [address] [facility] [place] [address] PCP - General Internal Medicine 09/09/17 Andrez Ballesteros MD [address] [place] [address] Specialty Eyelet Row Marker Cardiology 07/06/20 Adore Miller RIDES ATTENDANT.ROLLED OATS MILL OPERATOR [address] [place] [address] Specialty Eyelet Row Marker Cardiology 07/09/20 Cork Slabs Sawyer Relationship Specialty Start Date End Date Koki Worthington MD [address] [place] [address] PCP - General Internal Medicine 01/13/24 Heber Holbrook MD [address] [facility] Ear, [place] [address] Referring Physician Otolaryngology 01/13/24 Cork Slabs Sawyer Relationship Specialty Start Date End Date Koki Worthington MD [address] [place] [address] PCP - General Internal Medicine 09/09/17 Andrez Ballesteros MD [address] [address] Specialty Eyelet Row Marker Cardiology 07/06/20 Adore Miller APRN.ROLLED OATS MILL OPERATOR [address] [address] Specialty Eyelet Row Marker Cardiology 07/09/20 Rossy Duenas PA-C [address] [place] [address] [facility] 04/15/24 Briana Leggett APRN.ROLLED OATS MILL OPERATOR [address] [place] [address] [facility] Internal Medicine 04/15/24 Surya Bishop PA-C [address] [place] [address] [facility] Family [facility] 04/15/24 Cork Slabs Sawyer Relationship Specialty Start Date End Date Koki Worthington MD [address] [place] [address] PCP - General Internal Medicine 09/09/17 Andrez Ballestreos MD [address] [place] [address], [place] [address] Specialty Eyelet Row Marker Cardiology 07/06/20 Adore Miller RIDES ATTENDANT.ROLLED OATS MILL OPERATOR [address] [place] [address], [place] [address] Specialty Eyelet Row Marker Cardiology 07/09/20 Rossy Duenas PA-C [address] [place] [address] [facility] Family Medicine 04/15/24 Briana Leggett APRN.ROLLED OATS MILL OPERATOR [address] [place] [address] [facility] [employer] [facility] Internal Medicine 04/15/24 Surya Bishop PA-C [address] [facility] [place] [address] [facility] 04/15/24 Cork Slabs Sawyer Relationship Specialty Start Date End Date Koki Worthington MD [address] [place] [address] PCP - General Internal Medicine 09/09/17 Andrez Ballesteros MD [address] [place] [address], [place] [address] Specialty Eyelet Row Marker Cardiology 07/06/20 Adore Miller RIDES ATTENDANT.ROLLED OATS MILL OPERATOR [address] [place] [address], [place] [address] Specialty Eyelet Row Marker Cardiology 07/09/20 Rossy Duenas PA-C [address] [place] [address] Clean [facility] Family Medicine 04/15/24 Briana Leggett APRN.ROLLED OATS MILL OPERATOR [address] [place] [address] Clean [employer] [facility] Internal Medicine 04/15/24 Surya Bishop PA-C [address] [place] [address] [facility] 04/15/24 Cork Slabs Sawyer Relationship Specialty Start Date End Date Koki Worthington MD [address] [place] [address] PCP - General Internal Medicine 09/09/17 Andrez Ballesteros MD [address] [address] Specialty Eyelet Row Marker Cardiology 07/06/20 Adore Miller RIDES ATTENDANT.ROLLED OATS MILL OPERATOR [address] [address] Specialty Eyelet Row Marker Cardiology 07/09/20 Rossy Duenas PA-C [address] [place] [address] [facility] Family Medicine 04/15/24 Briana Leggett RIDES ATTENDANT.ROLLED OATS MILL OPERATOR [address] [place] [address] [facility] Internal Medicine 04/15/24 Surya Bishop PA-C [address] [place] [address] [facility] Family [facility] 04/15/24 Cork Slabs Sawyer Relationship Specialty Start Date End Date Koki Worthington MD [address] [facility] [place] [address] PCP - General Internal Medicine 09/09/17 Andrez Ballesteros MD [address] [place] [address] Specialty Eyelet Row Marker Cardiology 07/06/20 Adore Miller RIDES ATTENDANT.ROLLED OATS MILL OPERATOR [address] [place] [address] Specialty Eyelet Row Marker Cardiology 07/09/20 Rossy Duenas PA-C [address] [place] [address] [facility] 04/15/24 Briana Leggett APRN.ROLLED OATS MILL OPERATOR [address] [facility] [place] [address] Clean [employer] Broker Internal Medicine 04/15/24 Surya Bishop PA-C [address] [facility] [place] [address] Clean [facility] Family Medicine 04/15/24 Cork Slabs Sawyer Relationship Specialty Start Date End Date Koki Worthington MD [address] [facility] [place] [address] PCP - General Internal Medicine 09/09/17 Andrez Ballesteros MD [address] [place] [address] Specialty Eyelet Row Marker Cardiology 07/06/20 Adore Miller RIDES ATTENDANT.ROLLED OATS MILL OPERATOR [address] [place], [place] [address] Specialty Eyelet Row Marker Cardiology 07/09/20 Rossy Duenas PA-C [address] [place] [address] Clean Rice Broker Family [facility] 04/15/24 Briana Leggett APRN.CNP [address] [place], [place] [id number] [facility] Internal Medicine 04/15/24 Surya Bishop PA-C [address] [place], [place] [id number] [facility] 04/15/24 Cork Slabs Sawyer Relationship Specialty Start Date End Date Koki Worthington MD [address] [place], [place] [id number] PCP - General Internal Medicine 05/17/24 Brian Argueta MD [address] [place] [address], [facility] [address] [place], [place] [id number] Attending Provider Medical Clinical Genetics 12/28/19 Estela Griffiths [facility] [place], [place] [id number] Genetic Counselor Genetics 05/25/24 Cork Slabs Sawyer Relationship Specialty Start Date End Date Koki Worthington MD [address] [place], [place] [address] PCP - General Internal Medicine 09/09/17 Andrez Ballesteros MD [address] [address] Specialty Eyelet Row Marker Cardiology 07/06/20 Adore Miller APRN.ROLLED OATS MILL OPERATOR [address] [place] [address] Specialty Eyelet Row Marker Cardiology 07/09/20 Rossy Duenas PA-C [address] [place] [address] [facility] 04/15/24 Briana Leggett APRN.ROLLED OATS MILL OPERATOR [address] [facility] [place] [address] [facility] Internal Medicine 04/15/24 Surya Bishop PA-C [address] [place] [address] [facility] 04/15/24 Cork Slabs Sawyer Relationship Specialty Start Date End Date Koki Worthington MD [address] [facility] [place] [address] PCP - General Internal Medicine 09/09/17 Andrez Ballesteros MD [address] [place] [address] Specialty Eyelet Row Marker Cardiology 07/06/20 Adore Miller RIDES ATTENDANT.ROLLED OATS MILL OPERATOR [address] [place] [address] Specialty Eyelet Row Marker Cardiology 07/09/20 Rossy Duenas PA-C [address] [place] [address] Clean Rice Broker Family [facility] 04/15/24 Briana Leggett APRN.ROLLED OATS MILL OPERATOR [address] [place] [address] [facility] Internal Medicine 04/15/24 Surya Bishop PA-C [address] [facility] [place] [address] Clean [facility] Family Medicine 04/15/24 Cork Slabs Sawyer Relationship Specialty Start Date End Date Koki Worthington MD [address] [place] [address] PCP - General Internal Medicine 09/09/17 Andrez Ballesteros MD [address] [place] [address] Specialty [facility] Row Marker Cardiology 07/06/20 Adore Miller APRN.ROLLED OATS MILL OPERATOR [address] [address] Specialty Eyelet Row Marker Cardiology 07/09/20 Rossy Duenas PA-C [address] [place] [address] [facility] Family Medicine 04/15/24 Briana Leggett APRN.ROLLED OATS MILL OPERATOR [address] [place] [address] [facility] Internal Medicine 04/15/24 Surya Bishop PA-C [address] [place] [address] [facility] Family Medicine 04/15/24 Cork Slabs Sawyer Relationship Specialty Start Date End Date Koki Worthington MD [address] [facility] [place] [address] PCP - General Internal Medicine 09/09/17 Andrez Ballesteros MD [address] [place] [address] Specialty Eyelet Row Marker Cardiology 07/06/20 Adore Miller RIDES ATTENDANT.ROLLED OATS MILL OPERATOR [address] [place] [address] Specialty Eyelet Row Marker Cardiology 07/09/20 Briana Leggett APRN.ROLLED OATS MILL OPERATOR [address] [facility] [place] [address] [employer] [facility] Internal Medicine 04/15/24 Cork Slabs Sawyer Relationship Specialty Start Date End Date Koki Worthington MD [address] [facility] [place] [address] PCP - General Internal Medicine 09/09/17 Andrez Ballesteros MD [address] [place] [address] Specialty Eyelet Row Marker Cardiology 07/06/20 Adore Miller RIDES ATTENDANT.ROLLED OATS MILL OPERATOR [address] [place] [address] Specialty Eyelet Row Marker Cardiology 07/09/20 Briana Leggett APRN.ROLLED OATS MILL OPERATOR [address] [facility] [place] [address] [facility] [employer] [facility] Internal Medicine 04/15/24 Cork Slabs Sawyer Relationship Specialty Start Date End Date Koki Worthington MD [address] [facility] [place] [place] [address] PCP - General Internal Medicine 09/09/17 Andrez Ballesteros MD [address] [place] [address] Specialty Eyelet Row Marker Cardiology 07/06/20 Adore Miller RIDES ATTENDANT.ROLLED OATS MILL OPERATOR [address] [address] Specialty Eyelet Row Marker Cardiology 07/09/20 Briana Leggett APRN.ROLLED OATS MILL OPERATOR [address] [place] [address] [facility] Internal Medicine 04/15/24 Cork Slabs Sawyer Relationship Specialty Start Date End Date Koki Worthington MD [address] [place] [address] PCP - General Internal Medicine 09/09/17 Andrez Ballesteros MD [address] [place] [address] Specialty Eyelet Row Marker Cardiology 07/06/20 Adore Miller RIDES ATTENDANT.ROLLED OATS MILL OPERATOR [address] [place] [address] Specialty Eyelet Row Marker Cardiology 07/09/20 Rossy Duenas PA-C [address] [place] [address] [facility] Family Medicine 04/15/24 07/29/24 Briana Leggett, RIDES ATTENDANT.ROLLED OATS MILL OPERATOR [address] [place] [address] [facility] Internal Medicine 04/15/24 Surya Bishop PA-C [address] [place] [address] [facility] Family Medicine 04/15/24 07/29/24 Cork Slabs Sawyer Relationship Specialty Start Date End Date Koki Worthington MD [address] [place] [address] PCP - General Internal Medicine 09/09/17 Andrez Ballesteros MD [address] [place] [address] Specialty Eyelet Row Marker Cardiology 07/06/20 Adore Miller RIDES ATTENDANT.ROLLED OATS MILL OPERATOR [address] [place] [address] Specialty Eyelet Row Marker Cardiology 07/09/20 Briana Leggett APRN.ROLLED OATS MILL OPERATOR [address] [facility] [place] [address] [facility] Internal Medicine 04/15/24 Cork Slabs Sawyer Relationship Specialty Start Date End Date Koki Worthington MD [address] [place] [address] PCP - General Internal Medicine 09/09/17 Andrez Ballesteros MD [address] [place] [address] Specialty Eyelet Row Marker Cardiology 07/06/20 Adore Miller RIDES ATTENDANT.ROLLED OATS MILL OPERATOR [address] [place] [address] Specialty Eyelet Row Marker Cardiology 07/09/20 Briana Leggett APRN.ROLLED OATS MILL OPERATOR [address] [facility] [place] [address] [facility] Internal Medicine 04/15/24 Team Status: Inactive Member Role Status Dates Dr. Koki Worthington MD Primary Care Provider Active Start: October 19, 2024 End: October 19, 2024 Dr. oKki Worthington MD Referring Provider Active Start: October 19, 2024 End: October 19, 2024 Kailey Fairbanks PA, PA Attending Provider Active Start: October 19, 2024 End: October 19, 2024 Cork Slabs Sawyer Relationship Specialty Start Date End Date Koki Worthington MD [address] [facility] [place] [address] PCP - General Internal Medicine 09/09/17 Andrez Ballesteros MD [address] [place] [address] Specialty Eyelet Row Marker Cardiology 07/06/20 Adore Miller RIDES ATTENDANT.ROLLED OATS MILL OPERATOR [address] [place] [address] Specialty Eyelet Row Marker Cardiology 07/09/20 Briana Leggett, RIDES ATTENDANT.ROLLED OATS MILL OPERATOR [address] [facility] [place] [address] [employer] [facility] Internal Medicine 04/15/24 Cork Slabs Sawyer Relationship Specialty Start Date End Date Koki Worthington MD [address] [facility] [place] [address] PCP - General Internal Medicine 09/09/17 Adore Miller RIDES ATTENDANT.ROLLED OATS MILL OPERATOR [address] [place] [address] Specialty Eyelet Row Marker Cardiology 07/09/20 rBiana Leggett RIDES ATTENDANT.ROLLED OATS MILL OPERATOR [address] [facility] [place] [address] [employer] [facility] Internal Medicine 04/15/24 Gio Holguin MD [address] [place] [address] Specialty Eyelet Row Marker Cardiology 11/07/24 Cork Slabs Sawyer Relationship Specialty Start Date End Date Koki Worthington MD [address] [facility] [place] [address] PCP - General Internal Medicine 09/09/17 Adore Miller RIDES ATTENDANT.ROLLED OATS MILL OPERATOR [address] [place] [address] Specialty Eyelet Row Marker Cardiology 07/09/20 Briana Leggett APRN.ROLLED OATS MILL OPERATOR [address] [facility] [place] [address] [employer] Internal Medicine 04/15/24 Gio Holguin MD [address] [place] [address] Specialty Eyelet Row Marker Cardiology 11/07/24 Cork Slabs Sawyer Relationship Specialty Start Date End Date Koki Worthington MD [address] [facility] [place] [address] PCP - General Internal Medicine 09/09/17 Adore Miller RIDES ATTENDANT.ROLLED OATS MILL OPERATOR [address] [place] [address] Specialty Eyelet Row Marker Cardiology 07/09/20 Briana Leggett APRN.ROLLED OATS MILL OPERATOR [address] [place] [address] [employer] Internal Medicine 04/15/24 Gio Holguin MD [address] [place] [address] Specialty Eyelet Row Marker Cardiology 11/07/24 Cork Slabs Sawyer Relationship Specialty Start Date End Date Koki Worthington MD [address] [place], [place] [address] PCP - General Internal Medicine 09/09/17 Adore Miller APRN.ROLLED OATS MILL OPERATOR [address] [place], [place] [address] Specialty Eyelet Row Marker Cardiology 07/09/20 Briana Leggett APRN.ROLLED OATS MILL OPERATOR [address] [place], [place] [address] [employer] Internal Medicine 04/15/24 Gio Holguin MD [address] [place] [address] Specialty Eyelet Row Marker Cardiology 11/07/24 Goals (unrecognized section and content) Goals may be documented in a n alternate sectionGoals may be documented in an alternate sectionGoals may be documented in an alternate sectionGoals may be documented in an alternate sectionGoals may be documented in an alternate sectionGoals may be documented in an alternate sectionGoals may be documented in an alternate sectionGoals may be documented in an alternate sectionGoals may be documented in an alternate sectionGoals may be documented in an alternate sectionGoals may be documented in an alternate sectionGoals may be documented in an alternate sectionGoals may be documented in an alternate sectionGoals may be documented in an alternate sectionGoals may be documented in an alternate section FOR RECORDS PERTAINING TO PATIENTS WHO ARE [...] BE BASED ON THE PRIMARY CLINICAL RECORDS. [facility]. provides no warranty or guarantee of the accuracy or completeness of information in this document.
== END 2024-12-16 11:33 | disposition home or self-care (01) ==
LOC: ED 11:31
PROVIDERS: Emergency Provider Emergency Medicine; PCP Internal Medicine; Visit Provider Emergency Medicine
DX: S46.911A Strain of unspecified muscle, fascia and tendon at shoulder and upper arm level, right arm, initial encounter (principal); Z87.891 Personal history of nicotine dependence; Y92.481 Parking lot as the place of occurrence of the external cause; X58.XXXA Exposure to other specified factors, initial encounter
CPT/HCPCS: 99283

== ENCOUNTER 2025-02-10 13:01 | Emergency (ER) | payer MEDICAID, SELFPAY ==
[2025-02-10 13:03] VITALS: BP 135/78; PULSE 74; RESP 16; TEMP 36.7; O2SAT 99; BMI 35.6
--- NOTE | 2025-02-10 13:17 | EKG12_ITS ---
Test Reason : Blood Pressure : */* mmHG Vent. Rate : 86 BPM Atrial Rate : 86 BPM P-R Int : 150 ms QRS Dur : 86 ms QT Int : 360 ms P-R-T Axes : 69 4 -8 degrees QTcB Int : 430 ms Sinus rhythm with Premature supraventricular complexes Otherwise normal ECG Confirmed by RADHA NIXON, FRANSISCO ([id number]), field map editor IZABELLA GARCIA ([id number]) on 02/11/2025 8:36:15 AM Referred By: Confirmed By: FRANSISCO GARCIA MD
--- NOTE | 2025-02-10 13:18 | RAD_ITS ---
PROCEDURE: CHEST PA AND LATERAL 02/10/2025 REASON FOR EXAM: CHEST PAIN TECHNIQUE: Procedure Code: RADCXR Modality: DX Procedure: CHEST PA AND LATERAL COMPARISON: 09/11/2021 FINDINGS: Lungs: The lungs are symmetrically expanded. There is no consolidation. There is no peribronchial thickening. There is no pulmonary vascular redistribution. Pleura: No pleural effusion seen. There no evidence of pneumothorax. Heart and mediastinum: No mediastinal widening or mediastinal shift. The cardiac silhouette is not enlarged. Osseous: No acute fracture is seen. Mild multilevel degenerative disc disease identified. RAD/Chest PA and Lateral IMPRESSION: No acute cardiopulmonary disease. Reading Location: [id number]
--- NOTE | 2025-02-10 13:19 | EX.ED.DYSGE1 ---
HPI History of Present Illness Chief Complaint: Palpitations Informant: patient Onset/Context/Timing Onset: Yesterday Context: Gradual Onset Timing: Intermittent Quality: Racing, fluttering Location: Chest Worsened by: Nothing Relieved by: Nothing Narrative Narrative: Patient presents with palpitations that began last night. Patient states that she has had a history of palpitations. Patient states it feels like her heart races at times and flutters at times. Patient states nothing makes it better and nothing makes it worse. Patient states she took her medications at home with no improvement. Patient denies any cough but admits to occasional shortness of breath. Patient admits to some mild nausea but denies any vomiting. [facility] Medical History CRPS (complex regional pain syndrome type I) Impetigo Dental caries Migraine Vitamin D deficiency History of bradycardia History of tachycardia History of panic disorder History of anxiety PVC's (premature ventricular contractions) PTSD (post-traumatic stress disorder) History of degenerative disc disease Essential hypertension GERD (gastroesophageal reflux disease) Psoriasis of scalp Sinusitis, acute Scabies infestation Thrush of mouth and esophagus Influenza A Incontinence Back pain Limb weakness Shoulder pain Lung disease Hemorrhoids Ovarian cyst Right axillary hidradenitis Depression Hyperlipidemia Chronic headaches Asthma Arthritis Anemia Seasonal allergies Home Medications ?Medication ?Instructions ?Recorded ?Last Taken ?Type clonazepam 0.5 mg tablet 0.5 mg PO 4X/DAY PRN Anxiety 06/18/19 Unknown History epinephrine 0.3 mg/0.3 mL 0.3 mg IM ONCE PRN Allergic 06/18/19 Unknown History injection, auto-injector Reaction acetaminophen 500 mg capsule 1,000 mg PO Q6H PRN Pain 08/29/19 Unknown History sertraline 100 mg tablet 100 mg PO DAILY 02/09/21 Unknown History fluticasone propionate 220 1 puff inhalation BID 10/27/21 Unknown History mcg/actuation HFA aerosol inhaler (Flovent HFA) selenium sulfide 2.25 % shampoo 1 applic topical 2XW 10/27/21 Unknown History nitroglycerin 0.4 mg sublingual 0.4 mg sublingual Q5M PRN Chest 04/12/22 Unknown Rx tablet Pain #25 tabs montelukast 10 mg tablet 10 mg PO DAILY 04/26/22 Unknown History (Singulair) coenzyme Q10 10 mg capsule 10 mg PO ONCE 12/16/22 Unknown History meclizine 25 mg tablet See Rx Instructions .Route 03/22/24 Unknown Rx .COMPLEX #60 tabs albuterol sulfate 90 mcg/actuation 2 puff inhalation Q6H PRN 04/16/24 Unknown Rx aerosol inhaler shortness of breath or wheezing #8.5 grams Lactobacillus acidophilus 20 20,000 mmu cells PO DAILY PRN 05/01/24 Unknown History billion cell capsule (Florajen Acidophilus) omeprazole 20 mg capsule,delayed 20 mg PO DAILY #90 caps 05/01/24 Unknown Rx release nebivolol 2.5 mg tablet (Bystolic) 2.5 mg PO QDAY #30 tabs 10/19/24 Unknown Rx hydrocodone-acetaminophen 5-325mg 1 tab PO Q4H PRN PRN Pain 2 days 12/16/24 Unknown Rx 5mg-325mg #10 TABLETS pravastatin 20 mg tablet See Rx Instructions .Route 02/01/25 Unknown Rx .COMPLEX #90 tabs Allergy/AdvReac Type Severity Reaction Status Date / Time prednisone Allergy Intermediate Unknown Verified 02/10/25 13:03 silver sulfadiazine (From Allergy Intermediate Unknown Verified 02/10/25 13:03 Silvadene) bee venom protein (honey bee) Allergy Unknown Verified 02/10/25 13:03 Corticosteroids Allergy NEEDS Verified 02/10/25 13:03 (Glucocorticoids) (steriods) FOLLOW-UP Environmental Allergies: Allergy NEEDS Verified 02/10/25 13:03 Uncoded FOLLOW-UP regadenoson Allergy NEEDS Verified 02/10/25 13:03 FOLLOW-UP amoxicillin trihydrate (From AdvReac Nausea Verified 02/10/25 13:03 Augmentin) potassium clavulanate (From AdvReac Nausea Verified 02/10/25 13:03 Augmentin) Sulfa (Sulfonamide AdvReac Nausea Verified 02/10/25 13:03 Antibiotics) Family History Mother Rheumatoid arthritis Heart disease CHF Father Diabetes Heart disease COPD (chronic obstructive pulmonary disease) Sister Asthma Diabetes Grandmother TIA (transient ischemic attack) Surgical History History of left heart catheterization (~11/2007) History of tubal ligation History of tonsillectomy History of arthroscopic surgery of shoulder History of open reduction and internal fixation (ORIF) procedure History of lymph node excision History of cholecystectomy History of myringotomy History of incision and drainage S/P wrist surgery History of shoulder surgery Biceps muscle tear Social History Smoking Status: Current every day smoker tobacco type: cigarettes how long ago did patient quit smokin year ago second hand exposure: No alcohol intake: never substance use type: does not use caffeine: Yes Type: coffee Number of servings: 2 what type of physical activity do you participate in: none and walking frequency: daily uday/islam: None seatbelt use: always ROS ROS ED Constitutional Constitutional ED: Denies chills or fever(s) Eyes Eyes: Denies blurry vision or change in vision ENT ENT ED: Denies rhinorrhea or sore throat Cardiovascular Cardiovascular: Reports palpitations; Denies chest pain Respiratory/Chest Respiratory/Chest: Reports dyspnea; Denies cough Gastrointestinal Gastrointestinal: Reports nausea; Denies vomiting Genitourinary Genitourinary ED: Denies dysuria or hematuria Musculoskeletal Musculoskeletal: Denies back pain or neck pain Integumentary Denies abscess or rash Neurologic Neurologic: Denies headache(s) or weakness Allergic/Immunologic Allergic/Immunologic ED: Denies mouth swelling or urticaria EXAM Physical Exam Const Vital Signs: 02/10/25 13:03 02/10/25 13:17 02/10/25 13:36 Temperature 98.0 F Temperature Source Oral Pulse Rate 74 Respiratory Rate 16 Respiratory Effort Normal Non-Labored Blood Pressure 135/78 H Blood Pressure Mean 97 Pulse Ox 99 Oxygen Delivery Method Room Air Room Air 02/10/25 15:06 Temperature Temperature Source Pulse Rate 71 Respiratory Rate 13 Respiratory Effort Blood Pressure 150/87 H Blood Pressure Mean 108 Pulse Ox 99 Oxygen Delivery Method Room Air Positive well nourished and well developed Constitutional Narrative: BMI is 35.6 General Appearance ED: well developed and NAD HEENT Reports moist mucous membranes Neck supple and no JVD Resp normal respiratory effort and clear to auscultation bilaterally Cardio regular rate and regular rhythm GI non-tender and non-distended Palpation: soft Extremity normal to inspection General Extremety ED: Negative for edema or tenderness General Extremity: Negative for edema Neuro oriented x3, CN's II-XII intact bilaterally and no sensory deficits noted Sensorium / Orientation: alert Motor Exam: strength 5/5 throughout Psych mental status grossly normal MDM MDM MDM Narrative Medical decision making narrative: Differential diagnosis includes cardiac dysrhythmia, cardiac ischemia, electrolyte abnormality, dehydration, ectopic beats, gastroesophageal reflux disease, and anxiety. EKG will be obtained to assess for cardiac dysrhythmia and cardiac ischemia. Chest x-ray will be obtained to assess for pneumonia or bronchitis. CBC will be obtained to assess for leukocytosis and anemia. Basic metabolic profile will be obtained to assess for electrolyte abnormality and renal function. High-sensitivity troponin will be obtained to assess for cardiac ischemia. History & Record Review Additional record(s) reviewed:: Prior outpatient record, Prior ED visit and Prior labs Lab Data Attestation: I reviewed the patient's lab results. Lab results narrative: CBC was reviewed. There is a mild leukocytosis of 11.3. The remainder was within normal limits. Basic metabolic profile was reviewed and was essentially within normal limits. Initial high-sensitivity troponin was reviewed and was less than 6. Repeat high-sensitivity troponin was reviewed and was less than 6. Labs: Laboratory Results - last 24 hr 02/10/25 02/10/25 13:20 15:14 WBC 11.3 H RBC 5.20 Hgb 14.9 Hct 43.9 MCV 84.4 MCH 28.7 MCHC 33.9 RDW Std Deviation 41.5 RDW Coeff of Godwin 13.3 Plt Count 220 MPV 10.8 Immature Gran % (Auto) 0.200 Neut % (Auto) 70.2 H Lymph % (Auto) 24.2 Morgan % (Auto) 4.2 Eos % (Auto) 0.7 Baso % (Auto) 0.5 Absolute Neuts (auto) 7.9 H Absolute Lymphs (auto) 2.74 Nucleated RBC % 0 Sodium 138 Potassium 4.1 Chloride 102 Carbon Dioxide 22.1 Anion Gap 14 BUN 9 Creatinine 0.72 Estim Creat Clear Calc 118.54 Est GFR (MDRD) Non-Af 109 BUN/Creatinine Ratio 13.2 Glucose 98 Calcium 9.7 Troponin T High Sens < 6 Troponin T Hi Sens 2 Hr < 6 Radiography Chest X-Ray - ED: 2 View, Read by ED Physician, Read by Radiologist and No Acute Disease Diagnostic Testing: Clinical Impression(s) from Imaging Studies Chest X-Ray 10/05/25 13:18 IMPRESSION: No acute cardiopulmonary disease. Reading Location: [facility] PA and lateral chest x-ray was obtained. There are 2 views. On my independent interpretation, lung rubin are clear. There is normal cardiac silhouette. Bony thorax is normal. There is no acute process noted. Radiologist also interpreted the x-ray and agrees. EKG Initial EKG: Attestation: I personally reviewed and interpreted this EKG as follows: Interpretation: Sinus Rhythm (86) and No Acute Injury Pattern Comments: EKG was obtained. On my independent interpretation, it showed a normal sinus rhythm with occasional PVCs with a rate of 86. RI interval, QRS interval, and QTc intervals were all normal. [place] was normal. There are no acute ST or T wave changes. Prior EKG tracings: available for review Prior: Unchanged (09/06/2024) Treatment and Re-Evaluation :: Patient was advised of her findings. Patient had no further ectopic beats here in the emergency department. Patient was instructed to follow-up with her primary care physician in 5 to 7 days. Patient was instructed to return if worse in any way. Patient understood and was agreeable with the plan. All questions were answered. Discharge Plan Triage Chief Complaint: Palpitations ED Provider: Aaron Carter Dx/Rx/DC Orders Clinical Impression: Palpitations, PVC's (premature ventricular contractions) Instructions: ED Heart Palpitations Prescriptions: No Action epinephrine 0.3 mg/0.3 mL auto-injector 0.3 mg IM ONCE PRN (Reason: Allergic Reaction) acetaminophen 500 mg capsule 1,000 mg PO Q6H PRN (Reason: Pain) sertraline 100 mg tablet 100 mg PO DAILY Patient Comments: Take 2 Tablet By Oral Route Per daily fluticasone propionate [Flovent HFA] 220 mcg/actuation HFA aerosol inhaler 1 puff inhalation BID selenium sulfide 2.25 % shampoo 1 applic topical 2XW Florajen Acidophilus 20 billion cell capsule 20,000 mmu cells PO DAILY PRN Patient Comments: TAKE 1 CAPSULE BY MOUTH EVERY DAY montelukast [Singulair] 10 mg tablet 10 mg PO DAILY coenzyme Q10 10 mg capsule 10 mg PO ONCE omeprazole 20 mg capsule,delayed release(DR/EC) 20 mg PO DAILY Qty: 90 3RF albuterol sulfate 90 mcg/actuation HFA aerosol inhaler 2 puff inhalation Q6H PRN (Reason: shortness of breath or wheezing) Qty: 8.5 0RF nebivolol [Bystolic] 2.5 mg tablet 2.5 mg PO QDAY Qty: 30 10RF clonazepam 0.5 mg tablet 0.5 mg PO 4X/DAY PRN (Reason: Anxiety) Patient Comments: anxiety, insomnia hydrocodone-acetaminophen 5-325 mg tablet 1 tab PO Q4H PRN PRN (Reason: Pain) 2 Days Qty: 10 0RF nitroglycerin 0.4 mg tablet, sublingual 0.4 mg sublingual Q5M PRN (Reason: Chest Pain) Qty: 25 3RF meclizine 25 mg tablet See Rx Instructions .ROUTE .COMPLEX Qty: 60 11RF Dose Instruction: TAKE 1 TABLET BY MOUTH TWICE DAILY NEEDED for dizziness Rx Instructions: TAKE 1 TABLET BY MOUTH TWICE DAILY NEEDED for dizziness pravastatin 20 mg tablet See Rx Instructions .ROUTE .COMPLEX Qty: 90 3RF Dose Instruction: 20 MG orally at bedtime Rx Instructions: 20 MG orally at bedtime Primary Care Provider: Meera Dietrich Referrals: Meera Dietrich MD [Primary Care Provider, Internal Medicine] - 5-7 Days Print Language: Wolof Disposition Disposition: Home, Self Care
[2025-02-10 13:27] LABS: Hematocrit 43.9 % (37-47); Hemoglobin 14.9 g/dL (12.0-15.0); Immature Granulocytes Count 0.020 X10^3/uL (0.0-0.0); Mean Corp Hgb Conc 33.9 g/dL (32-36); Mean Corpuscular Volume 84.4 fL (81-99); Mean Platelet Vol. 10.8 fl (6.2-12.0); NRBC Flagged by Analyzer 0 % (0-5); Platelet Count 220 K/mm3 (150-450); RBC Distribution Width CV 13.3 % (11.6-14.6); RBC Distribution Width SD 41.5 fl (35.1-43.9); Red Blood Count 5.20 M/mm3 (4.2-5.4); White Blood Count 11.3 K/mm3 (4.4-11.0)
--- OUTSIDE RECORDS SUMMARY | 2025-02-10 13:27 | XMS RPT_ITS | CCD ---
Author Organization [facility] Care Team Providers Care Orthopaedic General Name Role Phone Brian Argueta Unavailable Koki Worthington MD Primary Care Provider Andrez Ballesteros Unavailable Adore Miller Unavailable Dr. Koki Worthington Primary Care Provider Dr. Koki Worthington Referring Provider HOLLI Levine Attending Provider HOLLI Bolden Attending Provider HOLLI Levine Referring Provider HOLLI Levine Other Provider Dr. Quinn Hilliard Attending Provider Dr. Bright Coffey Attending Provider Dr. Koki Worthington Primary Care Provider Dr. Koki Worthington Referring Provider Dr. Koki Worthington Primary Care Provider Dr. Koki Worthington Referring Provider Roof PHOTOGRAPHIC EQUIPMENT MECHANIC, NITISH Joiner Attending Provider Dr. Bright Coffey Attending Provider Koki Worthington MD Primary Care Provider Andrez Ballesteros Unavailable Adore Miller Unavailable Andrez Ballesteros Unavailable Adore Miller Unavailable Ganta MD, Koki Primary Care Provider Favian, Andrez F Unavailable Paul, Adore Unavailable Elin, Dr. Estes Primary Care Provider [phone] Elin, Dr. Estes Referring Provider [facility] PHOTOGRAPHIC EQUIPMENT MECHANIC, PHOTOGRAPHIC EQUIPMENT MECHANIC-C Adore Joiner Attending Provider [phone] Elin, Dr. Estes Primary Care Provider [phone] Dr. Koki Worthington Referring Provider Lust PA, PA Amber Attending Provider [phone] Dr. Gio Holguin Attending Provider [phone] Koki Worthington MD Primary Care Provider UNGERER, ISABEL PHOTOGRAPHIC EQUIPMENT MECHANIC Consulting Unavailable LUST, AMBER PA%C Admitting Unavailable LUST, AMBER PA%C Primary Care Unavailable LUST, AMBER PA%C Attending Unavailable PROVIDER, UNKNOWN Consulting Unavailable O'CHILDERS, ABBY PHOTOGRAPHIC EQUIPMENT MECHANIC Primary Care Unavailable O'CHILDERS, ABBY PHOTOGRAPHIC EQUIPMENT MECHANIC Attending Unavailable O'CHILDERS, ABBY PHOTOGRAPHIC EQUIPMENT MECHANIC Admitting Unavailable UNGERER, ISABEL PHOTOGRAPHIC EQUIPMENT MECHANIC Consulting Unavailable PROVIDER, UNKNOWN Consulting Unavailable O'CHILDERS, ABBY PHOTOGRAPHIC EQUIPMENT MECHANIC Primary Care Unavailable O'CHILDERS, ABBY PHOTOGRAPHIC EQUIPMENT MECHANIC Attending Unavailable O'CHILDERS, ABYB PHOTOGRAPHIC EQUIPMENT MECHANIC Admitting Unavailable UNGERER, ISABEL PHOTOGRAPHIC EQUIPMENT MECHANIC Consulting Unavailable PROVIDER, UNKNOWN Consulting Unavailable UNGERER, ISABEL PHOTOGRAPHIC EQUIPMENT MECHANIC Consulting Unavailable O'CHILDERS, ABBY PHOTOGRAPHIC EQUIPMENT MECHANIC Admitting Unavailable O'CHILDERS, ABBY PHOTOGRAPHIC EQUIPMENT MECHANIC Primary Care Unavailable O'CHILDERS, ABBY PHOTOGRAPHIC EQUIPMENT MECHANIC Attending Unavailable PROVIDER, UNKNOWN Consulting Unavailable UNGERER, ISABEL PHOTOGRAPHIC EQUIPMENT MECHANIC Consulting Unavailable UNGERER, ISABEL PHOTOGRAPHIC EQUIPMENT MECHANIC Attending Unavailable UNGERER, ISABEL PHOTOGRAPHIC EQUIPMENT MECHANIC Admitting Unavailable UNGERER, ISABEL PHOTOGRAPHIC EQUIPMENT MECHANIC Primary Care Unavailable PROVIDER, UNKNOWN Consulting Unavailable ADORE GAO MD Admitting Unavailable ADORE GAO MD Primary Care Unavailable ADORE GAO MD Attending Unavailable Favian, Andrez F Unavailable Roof, Aodre Unavailable Elin, Dr. Estes Primary Care Provider [phone] Dr. Koki Worthington Referring Provider HOLLI Crain Attending Provider Roof PHOTOGRAPHIC EQUIPMENT MECHANIC, PHOTOGRAPHIC EQUIPMENT MECHANIC-C Adore Joiner Attending Provider HOLLI Levine Attending Provider Favian NIXON, Andrez Jon Unavailable Elin, Dr. Estes Primary Care Provider Dr. Koki Worthington Referring Provider Roof PHOTOGRAPHIC EQUIPMENT MECHANIC, PHOTOGRAPHIC EQUIPMENT MECHANIC-C Adore Joiner Attending Provider HOLLI Levine Attending Provider Dr. Koki Worthington Primary Care Provider Elin, Dr. Estes Referring Provider Roof TOOLS PROGRAMMER.Adore VERDIN Unavailable Elin, Dr. Estes Primary Care Provider Dr. Koki Worthington Referring Provider HOLLI Bolden Attending Provider Dr. Koki Worthington Primary Care Provider Elin, Dr. Estes Referring Provider HOLLI Bolden Attending Provider Koki Worthington MD Primary Care Provider Roof TOOLS PROGRAMMER.Adore VERDIN Unavailable Koki Worthington MD Primary Care Provider Heber Holbrook MD Unavailable ELIN, KOKI SARA Primary Care Unavailable ELIN, KOKI SARA Primary Care Unavailable ELIN, KOKI SARA Primary Care Unavailable MOISES PFEIFFER Attending Unavailable GANTA, KKOI SARA Primary Care Unavailable MOISES PFEIFFER Attending Unavailable GANTA, KOKI SARA Primary Care Unavailable Rossy Duenas PA-C Unavailable Older TOOLS PROGRAMMER.VELVET, Briana Unavailable Bogner PA-C, Surya Unavailable Brian Argueta MD Unavailable Koki Worthington MD Primary Care Provider Estela Griffiths CGC Unavailable GENOVEVA JOSEPH Referring Unavailable GENOVEVA JOSEPH Attending Unavailable GANTA, KOKI C Primary Care Unavailable Yulissa MCKEON, Rossy L Unavailable Meaghan MCKEON, Surya Unavailable Dr. Koki Worthington MD Primary Care Provider Dr. Koki Worthington MD Referring Provider Kailey Cortez Attending Provider OLDER, BRIANA Attending Unavailable GANTA, KOKI Primary Care Unavailable OLDER, BRIANA Referring Unavailable GANTA, KOKI Primary Care Unavailable OLDER, BRIANA Attending Unavailable GANTA, KOKI Primary Care Unavailable ADRIANA COULTER Referring Unavailable GANTA, KOKI Primary Care Unavailable GANTA, KOKI Primary Care Unavailable HAURY, ADELE Attending Unavailable OLDER, BRIANA Attending Unavailable GANTA, KOKI Primary Care Unavailable GANTA, KOKI Referring Unavailable GANTA, KOKI Primary Care Unavailable GANTA, KOIK Primary Care Unavailable BOGNER, SURYA Referring Unavailable GANTA, KOKI Primary Care Unavailable BOGNER, SURYA Referring Unavailable GANTA, KOKI Primary Care Unavailable SELF Referring Unavailable GANTA, KOKI Primary Care Unavailable BETH NGA Attending Unavailable HAURY, ADELE Referring Unavailable GANTA, KOKI Primary Care Unavailable SELF Referring Unavailable GANTA, KOKI Primary Care Unavailable OLDER, BRIANA Referring Unavailable GANTA, KOKI Primary Care Unavailable OLDER, BRIANA Attending Unavailable GANTA, KOKI Primary Care Unavailable OLDER, BRIANA Referring Unavailable GANTA, KOKI Primary Care Unavailable BETH, NGA Attending Unavailable GANTA, KOKI Primary Care Unavailable GANTA, KOKI Attending Unavailable GANTA, KOKI Primary Care Unavailable BETH, NGA Attending Unavailable GANTA, KOKI Primary Care Unavailable GANTA, KOKI Primary Care Unavailable BOGNER, SURYA Attending Unavailable GANTA, KOKI Primary Care Unavailable GANTA, KOKI Primary Care Unavailable GANTA, KOKI Primary Care Unavailable Gio Holguin MD Unavailable Dr. Aline Lciona DO Emergency Provider [phone] Aline Licona Attending Unavailable Ganta, Koki Primary Care Unavailable Ganta, Koki Primary Care Unavailable Roof PHOTOGRAPHIC EQUIPMENT MECHANIC, Adore H Attending Unavailable Roof PHOTOGRAPHIC EQUIPMENT MECHANIC, Adore H Referring Unavailable Ganta, Koki Primary Care Unavailable Roof PHOTOGRAPHIC EQUIPMENT MECHANIC, Adore H Attending Unavailable Roof PHOTOGRAPHIC EQUIPMENT MECHANIC, Adore H Referring Unavailable Ganta, Koki Primary Care Unavailable Chelsie, [place] Attending Unavailable Ganta, Koki Referring Unavailable Chelsie, [place] Referring Unavailable Ganta, Koki Primary Care Unavailable Chelsie, Gio Attending Unavailable Kailey Cortez Attending Unavail able Ganta, Koki Referring Unavailable Ganta, Koki Primary Care Unavailable Ganta, Koki Referring Unavailable Ganta, Koki Primary Care Unavailable Hasmukh Hernandez Attending Unavailable Ganta, Koki Referring Unavailable Ganta, Koki Primary Care Unavailable Chelsie, Gio Attending Unavailable Chelsie, Gio Referring Unavailable Ganta, Koki Primary Care Unavailable Chelsie, [place] Attending Unavailable Favian NIXON, Andrez Jon Unavailable CLIFTON SCHNEIDER Attending Unavailable OLDER, BRIANA Referring Unavailable GANTA, KOKI Primary Care Unavailable Allergies Allergy Classification Reported Allergen(s) Allergy Type Date of Onset Reaction(s) Facility Adenosine (2 sources) Adenosine Drug Allergy 05-30-19 19 Intolerance [facility] Work Phone: Amoxicillin / Clavulanate (2 sources) Amoxicillin / Clavulanate Drug Allergy 09-22-19 11 Vomiting [facility] Clavulanate (2 sources) Clavulanate Drug Allergy 05-30-19 19 GI Upset [facility] Corticosteroids (2 sources) predniSONE Drug Allergy 01-02-20 10 Swelling [facility] Feathers (2 sources) Feather Substance Allergy 05-30-19 19 Intolerance [facility] Iodine (and Iodine containting drugs) (2 sources) Iodine Drug Allergy 05-03-20 23 Anaphylaxis [facility] Penicillins (antibiotic) (2 sources) Amoxicillin Drug Allergy 09-12-19 22 Vomiting [facility] Sulfonamides (antibiotic) (4 sources) silver sulfADIAZINE Drug Allergy 01-17-20 08 Intolerance, GI Upset [facility] (20 sources) Adenosine; Translations: [ADENOSINE] Drug Allergy 05-30-19 19 Other: See Comments, Intolerance, Other [facility] Work Phone: [phone] (20 sources) Amoxicillin / Clavulanate; Translations: [AMOXICILLIN-POT CLAVULANATE] Drug Allergy 09-22-19 11 Vomiting, Nausea/vomitin g [facility] Work Phone: (20 sources) Clavulanate; Translations: [POTASSIUM CLAVULANATE] Drug Allergy 05-30-19 19 GI Upset [facility] Work Phone: (20 sources) Feather; Translations: [FEATHERS] Drug Allergy 05-30-19 19 Other: See Comments, Intolerance, Unknown [facility] Work Phone: [phone] (7 sources) Glucocorticoid; Translations: [CORTICOSTEROIDS (GLUCOCORTICOIDS)] Drug Intolerance 01-02-20 10 Other: See Comments [facility] Work Phone: [phone] (20 sources) predniSONE; Translations: [PREDNISONE] Drug Allergy 01-02-20 10 Swelling [facility] (20 sources) silver sulfADIAZINE; Translations: [SILVER SULFADIAZINE] Drug Allergy 01-17-20 08 Intolerance, Other [facility] (20 sources) Sulfonamides (Antibiotic); Translations: [SULFA (SULFONAMIDE ANTIBIOTICS)] Drug Intolerance 02-20-20 08 GI Upset [facility] (20 sources) Bee Venom Protein (Honey Bee); Translations: [BEE VENOM PROTEIN (HONEY BEE)] Drug Allergy 05-30-19 19 Anaphylaxis [facility] Work Phone: [phone] (20 sources) ENVIRONMENTAL [Other] Propensity to adverse reactions 01-07-20 05 Other: See Comments [facility] Work Phone: (20 sources) stress test IV liquid [Other] Propensity to adverse reactions 09-15-19 06 Anaphylaxis [facility] Work Phone: [phone] (20 sources) Amoxicillin; Translations: [AMOXICILLIN TRIHYDRATE] Drug Allergy 09-12-19 22 Vomiting [facility] (4 sources) Corticosteroids Allergy to substance 09-12-19 22 Unknown [facility] Work Phone: (4 sources) birds Allergy to substance 09-12-19 Unknown [facility] Work Phone: (5 sources) stress test dye Allergy to substance 09-12-19 22 Unknown [facility] (20 sources) Glucocorticoid preparation Drug Intolerance 01-02-20 10 Other: See Comments, Intolerance, Unknown, Swelling [facility] Work Phone: (20 sources) Seasonal allergy Allergy to substance 09-12-19 Unknown [facility] (20 sources) Other [place] Drug Allergy 09-12-19 22 Unknown [facility] (13 sources) Sulfonamides (Antibiotic) Propensity to adverse reactions 11-13-19 22 Nausea [facility] (12 sources) Glucocorticoid Receptor Agonists Allergy to substance 04-26-20 NEEDS FOLLOW-UP [facility] (13 sources) Environmental Allergies: Uncoded; Translations: [Environmental Allergies: Uncoded] Allergy to substance 04-26-20 NEEDS FOLLOW-UP [facility] Comment on above: BIRDS (11 sources) regadenoson Drug Allergy 09-16-19 23 NEEDS FOLLOW-UP [facility] Comment on above: from stress test (20 sources) Iodine; Translations: [IODINE] Drug Allergy 05-03-20 23 Anaphylaxis [facility] Work Phone: (1 source) Corticosteroids Drug allergy (disorder) 12-17-19 25 [facility] Repository (1 source) Potassium Drug Allergy 12-17-19 25 [facility] (1 source) predniSONE Drug Allergy 12-17-19 25 [facility] (1 source) regadenoson Drug Allergy 12-17-19 25 [facility] (1 source) silver sulfADIAZINE Drug Allergy 12-17-19 25 [facility] (1 source) Sulfonamides (Antibiotic) Drug allergy (disorder) 12-17-19 25 [facility] (1 source) bee venom protein (honey bee) Drug allergy (disorder) 12-17-19 25 [facility] Repository Medications Current Medications Medication Drug Class(es) Dates Sig (Normalized) Sig (Original) acetaminophen 500 mg oral capsule (16 sources) Start: 08-29-2019 take 2 capsules by mouth every six hours as needed for pain Acetaminophen 500 mg capsule Active 1000 mg PO EVERY 6 HOURS as needed for Pain August 29, 2019 12:00am Start: 08-29-2019 take 1000 mg by mout h every six hours Acetaminophen Active 1000 MG PO EVERY 6 HOURS August 29, 2019 12:00am acetaminophen 325 mg / HYDROcodone bitartrate 5 mg oral tablet (20 sources) Opioid Agonist Start: 12-16-2024 take 1 tablet by mouth every four hours as needed for pain Hydrocodone-Acetaminophen 5-325 mg tablet Active 1 {tbl} PO EVERY 4 HOURS NEEDED as needed for Pain 10 2 0 December 16, 2024 Muscle strain of right upper arm Start: 02-03-2018 End: 02-06-2018 Hydrocodone-Acetaminophen 1 TABLET tablet Discontinued 1 {tbl} PO EVERY 6 HOURS NEEDED as needed for Pain 6 3 0 February 03, 2018 12:00am February 05, 2018 12:00am February 06, 2018 12:10am Acromioclavicular joint separation, type 2 Start: 02-03-2018 End: 02-06-2018 take 1 tablet by mouth every six hours as needed Hydrocodone-Acetaminophen Discontinued 1 TABLET PO EVERY 6 HOURS NEEDED 6 3 February 03, 2018 12:00am February 06, 2018 12:10am Start: 01-26-2017 End: 04-12-2017 Hydrocodone-Acetaminophen 1 TABLET tablet Discontinued 1 - 2 {tbl} PO EVERY 6 HOURS NEEDED as needed for Pain 30 0 January 26, 2017 12:00am April 12, 2017 [...] every 8 hours as needed for pain. [id number] 200 actuat albuterol 0.09 mg/actuat metered dose inhaler (20 sources) beta2-Adrenergic Agonist Start: 5 End: take 2 puff(s) by inhalation every four hours as needed albuterol HFA (PROVENTIL HFA, VENTOLIN HFA) 90 mcg/actuation inhaler Indications: Moderate persistent asthma, uncomplicated (HCC) Inhale 2 puffs as instructed every 4 hours as needed. 18 g 3 12/26/2024 Active Start: 04-16-2024 Albuterol Sulf ate 90 mcg/actuation HFA aerosol inhaler Active 2 NMA INHALATION EVERY 6 HOURS as needed for shortness of breath or wheezing 8.5 0 April 16, 2024 1:00am Start: 02-06-2024 take [...] Drop (FLURESS) cephalexin 500 mg oral capsule (18 sources) Cephalosporin Antibacterial Start: 03-17-20 End: 03-24-20 24 take 1 capsule by mouth four times daily cephALEXin (KEFLEX) 500 mg capsule Indications: Urinary frequency Take 1 capsule by mouth four times daily for 7 days. 28 capsule 03/17/2024 03/24/2024 Active Start: 04-16-2019 End: 04-26-2019 take 1 capsule by mouth every twelve hours Cephalexin 500 mg capsule Discontinued 500 mg PO Q12H 20 10 0 April 16, 2019 1:00am April 25, 2019 [...] 300 mg PO THREE TIMES A DAY 30 0 October 08, 2020 12:00am February 09, 2021 [...] 300 mg PO THREE TIMES A DAY 30 0 September 11, 2014 12:24pm October 24, 2014 1:29pm Start: 09-11-2014 End: 09-11-2014 take 1 capsule by mouth four times daily Clindamycin Hcl 300 MG capsule Discontinued 300 mg PO 4 TIMES DAILY 24 September 11, 2014 12:00am September 11, 2014 12:24pm Comment on above: Take 2 capsules by m outh three times daily for 7 days. Take 150 mg by mouth four times daily. clonazePAM 0.5 mg oral tablet (20 sources) Benzodiazepine Start: End: take 1 tablet by mouth every [...] take 1 tablet by mouth twice daily Doxycycline Monohydrate 100 mg tablet Discontinued 100 mg PO TWICE A DAY 20 10 0 December 22, 2023 12:00am December 31, 2023 12:00am January 01, 2024 12:04am Start: 11-22-2023 End: 11-29-2023 take 1 tablet [...] Comment on above: Take 1 capsule by [facility] twice daily. Take 1 tablet by [facility] twice daily for 7 days. Take 1 tablet by [facility] two times a day for 7 days. [...] Contrast as designated per enteric contrast guidelines [id number] 0.3 ml EPINEPHrine 1 mg/ml auto-injector (20 [...] Comment on above: Take 1 tablet by [facility] one time only for 1 dose. 120 actuat fluticasone propionate 0.22 mg/actuat metered dose inhaler (20 sources) Corticosteroid Start: 4 End: 5 take 1 puff(s) by mouth twice daily [...] 460 mg by mouth once daily. levonorgestrel 0.966968 mg/hr intrauterine system (20 sources) Progestin, Progestin-containing [...] on above: Take 1 tablet by [place] two times a day for 7 days. Use 1 applicator vag inally twice per week. montelukast 10 mg oral tablet (20 sources) Leukotriene Receptor Antagonist Start: End: take 1 tablet by mouth once daily at bedtime montelukast (SINGULAIR) 10 mg tablet Take 1 tablet by mouth daily at bedtime. 90 tablet 1 12/26/2024 Active Start: 04-26-2022 End: 11-19-2024 take 1 tablet by mouth once daily at bedtime montelukast (SINGULAIR) 10 mg tablet Take 1 tablet by mouth daily at bedtime. 90 tablet 1 05/08/2024 11/19/2024 Discontinued Comment on above: Take 1 tablet by [place] once daily. nebivolol 2.5 mg oral tablet (3 sources) Start: 10-19-2024 End: 11-08-2024 take 1 tablet by mouth once daily Nebivolol (Bystolic) 2.5 mg tablet Active 2.5 mg PO daily 07 03October 19, 2024 12:00am Nebulizer Accessories misc (20 sources) Start: 09-30-2023 [...] before meal. TAKE 1 CAPSULE BY MO UTH 1/2 HOUR before breakfast phenylephrine hydrochloride 25 [...] % 1 Drop (ALCAINE) pyrroloquinoline quinone disod (VIN38-[id number] QUINONE ORAL) (8 sources) Start: pyrroloquinoline quinone disod ([id number]-[id number] QUINONE ORAL) 12/07/2022 Active sertraline 100 mg oral tablet (20 sources) Serotonin Reuptake Inhibitor Start: take 1 tablet by mouth once daily Sertraline 100 mg tablet Active 100 mg PO DAILY February 09, 2021 12:00am Start: 12-19-2016 End: 02-01-2018 take 1 tablet by mouth once daily Sertraline 100 MG tablet Discontinued 100 mg PO DAILY December 19, 2016 12:00am February 01, 2018 12:09pm take 1 tablet by toby th twice daily sertraline (ZOLOFT) 100 mg tablet Take 100 mg by mouth twice daily. Active take 2 tablets by mo uth once daily sertraline (Zoloft) 100 mg tablet Take 2 Tablet By Oral Route Per daily Active Comment on above: Take 100 mg by mouth twice daily. tropicamide 10 mg/ml ophthalmic solution (1 source) Anticholinergic Start: 12-03-19 End: 12-03-19 tropicamide 1 % 1 Drop (MYDRIACYL) ubidecarenone 10 mg oral capsule (10 sources) Start: 12-17-19 Coenzyme Q10 10 mg capsule Active 10 [...] (Normalized) Sig (Original) acetaminophen 325 mg / oxyCODONE hydrochloride 5 mg oral tablet (20 sources) Opioid Agonist Start: 04-26-2022 End: 12-22-2023 Oxycodone-Acetamino phen (Percocet) 5-325 mg tablet Discontinued 1 {tbl} PO Q8H as needed 0 April 26, 2022 1:00am December 22, 2023 [...] Discontinued 1 {tbl} PO Q8H as needed 0 June 18, 2019 1:00am June 18, 2019 [...] 11, 2019 12:00am March 18, 2019 1:09am Postoperative pain Other acute postprocedural pain stop all other narcotics and tylenol products [...] mg / clavulanate 125 mg oral tablet (16 sources) Penicillin-class Antibacterial Start: 05-29-2021 End: 06-08-2021 Amoxicillin-Pot Clavulanate 875-125 mg tablet Discontinued 1 {tbl} PO Q12H 20 May 29, 2021 1:00am June 07, 2021 1:00am June 08, 2021 1:02am Acute sinusitis, unspecified Start: 05-29-2021 End: 06-08-2021 take 1 tablet by mouth every twelve hours Amoxicillin-Pot Clavulanate Discontinued 1 TABLET PO Q12H 25 02May 29, 2021 1:00am June 08, 2021 1:02am [...] 2021 1:00am October 27, 2021 9:23am End: 08-04-2022 aspirin 81 mg cap Indication s: Facial paresthesia , Transient vision disturbance of right eye , Blepharospasm of right eye Take 81 mg by mouth. 08/04/2022 Discontinued (Discontinued by Patient) Comment on above: Take 81 mg by mouth. azithromycin 250 mg oral tablet (18 sources) Macrolide Antimicrobial Start: 10-04-2023 End: 12-22-2023 Azithromycin 250 mg tablet Discontinued 250 mg PO .COMPLEX 12 0 October 04, 2023 12:00am December 22, 2023 6:25am 2 tablets (500 mg) on day 1, then 1 tablet daily on days 2 through 11 Start: 09-10-2018 End: 10-24-2018 take 2-5 tablets by mouth once daily Azithromycin 250 mg tablet Discontinued 0 PO .COMPLEX 6 0 September 10, 2018 12:00am October 24, 2018 1:09pm take 500 mg today (day 1), then 250 mg for 4 days (days 2-5) PO benzonatate 100 mg oral capsule (16 sources) Non-narcotic Antitussive Start: 07-23-2024 End: 11-07-2024 [...] TIMES A DAY as needed for cough 20 0 April 16, 2024 1:00am May 01, 2024 10:49am Start: 10-04-2023 End: 12-22-2023 take 1 capsule by mouth at bedtime as needed for cough Benzonatate 200 mg capsule Discontinued 200 mg PO AT BEDTIME as needed for cough 10 0 October 04, 2023 12:00am December 22, 2023 [...] Bifid.And Longum 460 mg (9-1 bill.cell) capsule (2 sources) Start: 06-18-2019 End: 02-09-2021 take 1 capsule by mouth once daily Bifidobacteri Bifid.And Longum 460 mg (9-1 bill.cell) capsule Discontinued 1 NMA PO DAILY June 18, 2019 1:00am February 09, 2021 10:50am brompheniramine maleate 0.4 mg/ml / dextromethorphan hydrobromide 2 mg/ml / pseudoephedrine hydrochloride 6 mg/ml oral solution (16 sources) alpha-Adrenergic Agonist, Uncompetitive M-hisrng-S-asparta te Receptor Antagonist, Sigma-1 Agonist Start: 08-07-2023 End: 12-15-2023 take 5-10 mL by mouth every six hours as needed Brompheniramine-Pse udoeph-DM (BROMFED DM) 2-30-10 mg/5 mL syrup Take 5-10 ml po q6h prn 120 mL 0 08/07/2023 12/15/2023 Discontinued Comment on above: Take 5-10 ml po q6h prn cholecalciferol 1.25 mg oral capsule (16 sources) Vitamin D Start: 08-29-2019 End: 12-25-2019 take 1 capsule by mouth every week Cholecalciferol (Vitamin D3) 1,250 mcg (50,000 unit) capsule Discontinued 51319 U PO EVERY WEEK August 29, 2019 12:00am December 25, 2019 10:49am diflunisal 500 mg oral tablet (16 sources) Nonsteroidal Anti-inflammatory Drug Start: 09-06-2017 End: 02-01-2018 take 1 tablet by mouth three times daily Diflunisal 500 MG tablet Discontinued 500 mg PO THREE TIMES A DAY September 06, 2017 12:00am February 01, 2018 12:09pm Foam Bandage (Aquacel Foam) 1 EACH Bandage (16 sources) Start: 09-11-2014 End: 09-11-2014 Foam Bandage (Aquacel Foam) 1 EACH Bandage Discontinued 1 EACH TP DAILY September 11, 2014 5:38pm September 11, 2014 6:02pm size of right axillary wound - 9 x 5 x 3 cm. ICD-9 code - 880.12, 705.83. Start: 09-11-2014 End: 09-11-2014 Foam Bandage (Aquacel Foam) 1 EACH Bandage Discontinued 1 NMA TP DAILY 30 September 11, 2014 12:00am September 11, 2014 [...] Comment on above: Take 2 tablets by [facility] twice daily. hydrocortisone 10 mg/ml / neomycin 3.5 mg/ml / polymyxin b [id number] unt/ml otic suspension (3 sources) Aminoglycoside Antibacterial, Polymyxin-class Antibacterial, Corticosteroid Start: 03-17-20 24 End: 04-17-20 24 neomycin-polymyxin- hydrocortisone (CORTISPORIN) 3.5-10,000-1 mg/mL-unit/mL-% otic suspension Indications: Acute otitis externa of left ear, unspecified type Use 3 Drops in both ears four times daily. 10 mL 03/17/2024 04/17/2024 Discontinued (Course of therapy completed) ketoconazole 20 mg/ml medicated shampoo (16 sources) Azole Antifungal Start: 05-08-20 End: 06-05-19 Ketoconazole (Nizoral) 2 % shampoo Discontinued 1 NMA TOPICAL TWICE A WEEK 120 28 0 May 08, 2019 1:00am June 04, 2019 1:00am June 05, 2019 1:07am Psoriasis, unspecified L. acidophilus-L. rhamnosus 15 billion cell cap (3 sources) Start: 07-23-19 End: 10-17-19 take 1 capsule by mouth once daily L. acidophilus-L. rhamnosus 15 billion cell cap Indications: BV (bacterial vaginosis) Take 1 capsule by mouth once daily. FLORAJEN WOMEN. If on antibiotic, take at least 1-2 hours before or after antibiotic. KEEP REFRIGERATED 30 capsule 11 07/22/2020 10/16/2021 Discontinued (Clinical Decision) Start: 07-22-2020 take 1 capsule by mo uth once daily L. acidophilus-L. rhamnosus 15 billion cell cap Indications: BV (bacterial vaginosis) Take 1 capsule by mouth once daily. FLORAJEN WOMEN. If on antibiotic, take at least 1-2 hours before or after antibiotic. KEEP REFRIGERATED 30 capsule 11 07/22/2020 Active Comment on above: Take 1 capsule by mo uth once daily. FLORAJEN WOMEN. If on antibiotic, take at least 1-2 hours before or after antibiotic. KEEP REFRIGERATED lansoprazole 30 mg delayed release oral capsule (20 sources) Proton Pump Inhibitor Start: 03-01-20 End: 07-02-19 take 1 capsule by mouth once daily Lansoprazole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 following information about you: Cady Torres RN 10/03/2024 9:40 AM Signed Patient asking if provider can advise on her recent school lunch monitor results when able. Thank you. KIMBERLY Daly Joy, APRN.CNP 10/05/2024 7:56 AM Signed There was a lot of symptomatic PVCs which are early ventricular contractions. These are not life threatening, but with the symptoms, I want her to follow up with cardiology. I know she has seen one in the past. Who is her rolling up machine operator and when did she last see them? Thank you Briana Leggett APRN.Shawnee Rocha RN 10/05/2024 9:46 AM Signed Pt called and is notified of providers results and instructions. Pt voices understanding. She states she sees Adore Miller PHOTOGRAPHIC EQUIPMENT MECHANIC with [facility]. She states he doesn't listen to her when she talks, and it's hard to get into them. She was asking if there was anyone the provider would recommend she go to. I let her know we have 2 Wireless Engineer here, but they are only here on Mondays and it takes a long time to get in. KIMBERLY Varma Joy, APRN.CNP 10/05/2024 1:01 PM Signed I have put in a cardiology consult. If she is willing to travel, she may be able to see a [facility] rolling up machine operator sooner then waiting to see one in [place]. Thank you Briana Leggett APRN.Baljinder Proctor 10/06/2024 9:05 AM Signed Scheduled with Leslie [...] Date Reviewed: 09/06/2024 Reviewed by: Briana Leggett APRN.MEDIA RELATIONS DIRECTOR - Fully Assessed Reason for Visit: Results [95] Primary Visit Diagnosis:Pre-syncope [R55] Other Visit Diagnoses:Paroxysmal tachycardia (HCC) [I47.9] Bigeminy [I49.8] Order(s):CONSULT TO CARDIOLOGY [9004] Order #: [id number]: 1 FUTURE Prescriptions as of 10/06/2024 - [...] mouth twi (more content not included)... Normal [facility] ECHOon 09-20-2024 Echocardiography Echocardiography Rep ort: Transthoracic Echo [facility] Date of service: 09/20/2024 7:54:12 AM [place] Ordering physician: BRIANA LEGGETT Indication: Palpitations Technologist: Cinthya Chaidez [facility] Interpreting physician: Scot Lowe MD PATIENT: Name: [...] * * * Final * * * [employer] [facility] : [id number] 9SyngoDynamicsSISUID Normal [facility] 25(OH)D3 SerPl-mCncon 2024 25-hydroxyvitamin D3 [Mass/Vol] 29.2 ng/mL Low 31.0-80.0 [facility] Comment on above: Order Comment: Speci men Type: BLOOD SPECIMENOrdering Facility: [facility] Address: [address] [place] [address] Result Comment: Clas sification of 25 [place] Vitamin D status: Deficiency/Insufficiency: < or = 30 ng/ml. Sufficiency/Optimal Levels: 31-80 ng/mL Toxicity: > 100 ng/mL. Test performed by chemiluminescent immunoassay. Performed By: #### 1 989-3 ####[facility]CL[facility] [id number] [place] [address] [place] Bacteria Ur Culton 5 Bacteria identified Cx Nom (U) ORGANISM ID: 1 10,000 -<50,000 CFU/ml Normal urogenital wilian Normal [facility] Comment on above: Performed By: #### 6 30-4 ####[facility] [id number] [place] [address] [place] CBC W Auto Differential pane l (Bld)on 09-06-2024 Basophils (Bld) [#/Vol] 0.05 10*3/uL [facility] Basophils/100 WBC (Bld) 0.4 % [facility] Differential cell count method Nom (Bld) Auto [facility] Eosinophils (Bld) [#/Vol] 0.05 10*3/uL [facility] Eosinophils/100 WBC (Bld) 0.4 % [facility] Erythrocyte distribution width (RBC) [Ratio] 14.7 % 11.5 - 15.0 % [facility] Hematocrit (Bld) [Volume fraction] 42.6 % 36.0 - 46.0 % [facility] Hemoglobin (Bld) [Mass/Vol] 13.5 g/dL 11.5 - 15.5 g/dL [facility] Immature granulocytes (Bld) [#/Vol] 0.04 10*3/uL [facility] Immature granulocytes/100 WBC (Bld) 0.3 % [facility] Interpretation and review of laboratory results Abnormal [facility] Lymphocytes (Bld) [#/Vol] 2.01 10*3/uL [facility] Lymphocytes/100 WBC (Bld) 17.4 % [facility] MCH (RBC) [Entitic mass] 27.6 pg 26.0 - 34.0 pg [facility] MCHC (RBC) [Mass/Vol] 31.7 g/dL 30.5 - 36.0 g/dL [facility] MCV (RBC) [Entitic vol] 86.9 fL 80.0 - 100.0 fL [facility] Monocytes (Bld) [#/Vol] 0.63 10*3/uL [facility] Monocytes/100 WBC (Bld) 5.5 % [facility] Neutrophils (Bld) [#/Vol] 8.76 10*3/uL High [facility] Neutrophils/100 WBC (Bld) 76 % [facility] Nucleated RBC (Bld) [#/Vol] [facility] Nucleated RBC/100 WBC (Bld) [Ratio] 0 % /100 WBC [facility] Platelet mean volume (Bld) [Entitic vol] 11.5 fL 9.0 - 12.7 fL [facility] Platelets (Bld) [#/Vol] 204 10*3/uL [facility] RBC (Bld) [#/Vol] 4.9 10*6/uL 3.90 - 5.2 0 m/uL [facility] WBC (Bld) [#/Vol] 11.54 10*3/uL [facility] Basophils (Bld) [#/Vol] 0.05 10*3/uL Normal <0.11 [facility] Comment on above: Order Comment: Speci men Type: BLOOD SPECIMENOrdering Facility: [facility] Address: [address] [place] [address] Performed By: #### 5 7021-8 ####[facility]CL[facility] [id number] [place] [address] [place] Basophils/100 WBC (Bld) 0.4 % Normal [facility] Comment on above: Order Comment: Speci men Type: BLOOD SPECIMENOrdering Facility: [facility] Address: [address] [place] [address] Performed By: #### 5 7021-8 ####[facility] [id number] [place] [address] [place] Differential cell count method Nom (Bld) Auto Normal [facility] Comment on above: Order Comment: Speci men Type: BLOOD SPECIMENOrdering Facility: [facility] Address: [address] [place] [address] Performed By: #### 5 7021-8 ####[facility] [id number] [place] [address] [place] Eosinophils (Bld) [#/Vol] 0.05 10*3/uL Normal <0.46 [facility] Comment on above: Order Comment: Speci men Type: BLOOD SPECIMENOrdering Facility: [facility] Address: [address] [place] [address] Performed By: #### 5 7021-8 ####[facility]CLIA [id number] [facility] [place] [address] [place] Eosinophils/100 WBC (Bld) 0.4 % Normal [facility] Comment on above: Order Comment: Speci men Type: BLOOD SPECIMENOrdering Facility: [facility] Address: [address] [place] [address] Performed By: #### 5 7021-8 ####[facility]CLIA [id number] [place] [address] [place] Erythrocyte distribution width (RBC) [Ratio] 14.7 % Normal 11.5-15.0 [facility] Comment on above: Order Comment: Speci men Type: BLOOD SPECIMENOrdering Facility: [facility] Address: [address] [place] [address] Performed By: #### 5 7021-8 ####[facility] LABIA [id number] [place] [address] [place] Hematocrit (Bld) [Volume fraction] 42.6 % Normal 36.0-46.0 [facility] Comment on above: Order Comment: Speci men Type: BLOOD SPECIMENOrdering Facility: [facility] Address: [address] [place] [address] Performed By: #### 5 7021-8 ####[facility] LABIA [id number] [place] [address] [place] Hemoglobin (Bld) [Mass/Vol] 13.5 g/dL Normal 11.5-15.5 [facility] Comment on above: Order Comment: Speci men Type: BLOOD SPECIMENOrdering Facility: [facility] Address: [address] [place] [address] Performed By: #### 5 7021-8 ####[facility] LABIA [id number] [place] [address] [place] Immature granulocytes (Bld) [#/Vol] 0.04 10*3/uL Normal <0.10 [facility] Comment on above: Order Comment: Speci men Type: BLOOD SPECIMENOrdering Facility: [facility] Address: [address] [place] [address] Performed By: #### 5 7021-8 ####[facility]CL[facility] [id number] [place] [address] [place] Immature granulocytes/100 WBC (Bld) 0.3 % Normal [facility] Comment on above: Order Comment: Speci men Type: BLOOD SPECIMENOrdering Facility: [facility] Address: [address] [place] [address] Performed By: #### 5 7021-8 ####[facility]CL[facility] [id number] [place] [address] [place] Lymphocytes (Bld) [#/Vol] 2.01 10*3/uL Normal 1.00-4.00 [facility] Comment on above: Order Comment: Speci men Type: BLOOD SPECIMENOrdering Facility: [facility] Address: [address] [place] [address] Performed By: #### 5 7021-8 ####[facility] LABIA [id number] [place] [address] [place] Lymphocytes/100 WBC (Bld) 17.4 % Normal [facility] Comment on above: Order Comment: Speci men Type: BLOOD SPECIMENOrdering Facility: [facility] Address: [address] [place] [address] Performed By: #### 5 7021-8 ####[facility]CL[facility] [id number] [place] [address] [place] MCH (RBC) [Entitic mass] 27.6 pg Normal 26.0-34.0 [facility] Comment on above: Order Comment: Speci men Type: BLOOD SPECIMENOrdering Facility: [facility] Address: [address] [place] [address] Performed By: #### 5 7021-8 ####[facility]CL[facility] [id number] [place] [address] [place] MCHC (RBC) [Mass/Vol] 31.7 g/dL Normal 30.5-36.0 [facility] Comment on above: Order Comment: Speci men Type: BLOOD SPECIMENOrdering Facility: [facility] Address: [address] [place] [address] Performed By: #### 5 7021-8 ####[facility] LABIA [id number] [place] [address] [place] MCV (RBC) [Entitic vol] 86.9 fL Normal 80.0-100.0 [facility] Comment on above: Order Comment: Speci men Type: BLOOD SPECIMENOrdering Facility: [facility] Address: [address] [place] [address] Performed By: #### 5 7021-8 ####[facility]IA [id number] [place] [address] [place] Monocytes (Bld) [#/Vol] 0.63 10*3/uL Normal <0.87 [facility] Comment on above: Order Comment: Speci men Type: BLOOD SPECIMENOrdering Facility: [facility] Address: [address] [place] [address] Performed By: #### 5 7021-8 ####[facility] LABIA [id number] [place] [address] [place] Monocytes/100 WBC (Bld) 5.5 % Normal [facility] Comment on above: Order Comment: Speci men Type: BLOOD SPECIMENOrdering Facility: [facility] Address: [address] [place] [address] Performed By: #### 5 7021-8 ####[facility]IA [id number] [place] [address] [place] Neutrophils (Bld) [#/Vol] 8.76 10*3/uL High 1.45-7.50 [facility] Comment on above: Order Comment: Speci men Type: BLOOD SPECIMENOrdering Facility: [facility] Address: [address] [place] [address] Performed By: #### 5 7021-8 ####[facility]CL[facility] [id number] [place] [address] [place] Neutrophils/100 WBC (Bld) 76.0 % Normal [facility] Comment on above: Order Comment: Speci men Type: BLOOD SPECIMENOrdering Facility: [facility] Address: [address] [place] [address] Performed By: #### 5 7021-8 ####[facility]CL[facility] [id number] [place] [address] [place] Nucleated RBC (Bld) [#/Vol] 10*3/uL Normal <0.01 [facility] Comment on above: Order Comment: Speci men Type: BLOOD SPECIMENOrdering Facility: [facility] Address: [address] [place] [address] Performed By: #### 5 7021-8 ####[facility]IA [id number] [place] [address] [place] Nucleated RBC/100 WBC (Bld) [Ratio] 0.0 /100 WBC Normal [facility] Comment on above: Order Comment: Speci men Type: BLOOD SPECIMENOrdering Facility: [facility] Address: [address] [place] [address] Performed By: #### 5 7021-8 ####[facility]IA [id number] [place] [address] [place] Platelet mean volume (Bld) [Entitic vol] 11.5 fL Normal 9.0-12.7 [facility] Comment on above: Order Comment: Speci men Type: BLOOD SPECIMENOrdering Facility: [facility] Address: [address] [place] [address] Performed By: #### 5 7021-8 ####[facility]IA [id number] [place] [address] [place] Platelets (Bld) [#/Vol] 204 10*3/uL Normal 150-400 [facility] Comment on above: Order Comment: Speci men Type: BLOOD SPECIMENOrdering Facility: [facility] Address: [address] [place] [address] Performed By: #### 5 7021-8 ####[facility]CL[facility] [id number] [place] [address] [place] RBC (Bld) [#/Vol] 4.90 10*6/uL Normal 3.90-5.20 [facility] Comment on above: Order Comment: Speci men Type: BLOOD SPECIMENOrdering Facility: [facility] Address: [address] [place] [address] Performed By: #### 5 7021-8 ####[facility]CL[facility] [id number] [place] [address] [place] WBC (Bld) [#/Vol] 11.54 10*3/uL High 3.70-11.00 [facility] Comment on above: Order Comment: Speci men Type: BLOOD SPECIMENOrdering Facility: [facility] Address: [address] [place] [address] Performed By: #### 5 7021-8 ####[facility] LABIA [id number] [place] [address] [place] CNOVon 09-06-2024 CNOV Office Visit (INTMWS ) BRIA WITT ([id number]) 1985 F Date Time Provider Department 09/06/24 8:20 AM BRIANA LEGGETT INTMWS During your visit today, we recorded the following information about you: Pulse Respiration Blood pressure Weight 78/minute 16/minute 124/68 99.8 kg Older, WENDY Warren.MEDIA RELATIONS DIRECTOR 09/06/2024 12:26 PM Signed CC: Patient presents with: Recheck: Follow up fatigue, continuing to get worse HPI Bria Witt is a 39 year old female who presents today for fatigue and almost passed out a week ago. Recording using [employer] software for draft documentation of the visit was discussed with the patient/authorized patient relations representative; all questions welcomed and answered. Patient/authorized patient relations representative agreed to proceed Fatigue: - Extreme fatigue [...] 02/03/2018 Sinus arrhythmia 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 seen on school lunch monitor Smoker 06/24/2010 Snoring 09/29/2009 Sleep study completed [...] normal [place] (more content not included)... Normal [facility] metabolic 2000 panelon 09-06-2024 Albumin [Mass/Vol] 4.4 g/dL Normal 3.9-4.9 [facility] Comment on above: Order Comment: Speci men Type: BLOOD SPECIMENOrdering Facility: [facility] Address: [address] [place], [place] [address] Performed By: #### 2 4323-8, 9, 36888-6, 6-3 ####[facility]CL[facility] [id number] [address] [address] [place] ALP [Catalytic activity/Vol] 64 U/L Normal 34-123 [facility] Comment on above: Order Comment: Speci men Type: BLOOD SPECIMENOrdering Facility: [facility] Address: [address] [place], [place] [address] Performed By: #### 2 4323-8, 2132-01, , 6-3 ####[facility]CL[facility] [id number] [place] [address] [place] ALT [Catalytic activity/Vol] 16 U/L Normal 7-38 [facility] Comment on above: Order Comment: Speci men Type: BLOOD SPECIMENOrdering Facility: [facility] Address: [address] [place] [address] Performed By: #### 2 4323-8, 2132-01, , 6-3 ####[facility] [id number] [place] [address] [place] Anion gap [Moles/Vol] 9 mmol/L Normal 8-15 [facility] Comment on above: Order Comment: Speci men Type: BLOOD SPECIMENOrdering Facility: [facility] Address: [address] [place], [place] [address] Performed By: #### 2 4323-8, 9, , 6-3 ####[facility]CL[facility] [id number] [facility] [address] [place] [address] [place] AST [Catalytic activity/Vol] 16 U/L Normal 13-35 [facility] Comment on above: Order Comment: Speci men Type: BLOOD SPECIMENOrdering Facility: [facility] Address: [address] [place] [address] Performed By: #### 2 4323-8, 2132-01, , 3015-3 ####[facility] [id number] [address] [address] [place] Bilirubin [Mass/Vol] mg/dL Low 0.2-1.3 [facility] Comment on above: Order Comment: Speci men Type: BLOOD SPECIMENOrdering Facility: [facility] Address: [address] [place] [address] Performed By: #### 2 432-8, 2132-01, , 3015-3 ####[facility] [id number] [place] [address] [place] Calcium [Mass/Vol] 9.2 mg/dL Normal 8.5-10.2 [facility] Comment on above: Order Comment: Speci men Type: BLOOD SPECIMENOrdering Facility: [facility] Address: [address] [place] [address] Performed By: #### 2 432-8, 2132-01, , 3015-3 ####[facility] [id number] [address] [address] [place] Chloride [Moles/Vol] 105 mmol/L Normal 98-107 [facility] Comment on above: Order Comment: Speci men Type: BLOOD SPECIMENOrdering Facility: [facility] Address: [address] [place] [address] Performed By: #### 2 4323-8, 2132-01, , 3015-3 ####[facility] [id number] [facility] [address] [address] [place] CO2 [Moles/Vol] 27 mmol/L Normal 22-30 [facility] Comment on above: Order Comment: Speci men Type: BLOOD SPECIMENOrdering Facility: [facility] Address: [address] [place], [place] [address] Performed By: #### 2 4323-8, 2132-01, , 3 ####[facility] [id number] [address] [address] [place] Creatinine [Mass/Vol] 0.60 mg/dL Normal 0.58-0.96 [facility] Comment on above: Order Comment: Speci men Type: BLOOD SPECIMENOrdering Facility: [facility] Address: [address] [place] [address] Performed By: #### 2 4323-8, 2132-01, , 3015-07 ####[facility] [id number] [place] [address] [place] Creatinine and Glomerular filtration rate.predicted panel (S/P/Bld) 116 mL/min/1.73m??? Normal >=60 [facility] Comment on above: Order Comment: Speci men Type: BLOOD SPECIMENOrdering Facility: [facility] Address: [address] [place] [address] Result Comment: Denise mated Glomerular Filtration Rate [...] actual GFR. Performed By: #### 2 4323-8, 2132-01, , 3 ####[facility] [id number] [address] [address] [place] Glucose [Mass/Vol] 90 mg/dL Normal 74-99 [facility] Comment on above: Order Comment: Speci men Type: BLOOD SPECIMENOrdering Facility: [facility] Address: [address] [place] [id number] Result Comment: The [place] Diabetes Association (ADA) provides guidance for cutoff [...] Standards of Medical Care in Diabetes 2016, [place] [employer]. Diabetes Care. 2016.39(Suppl 1). Performed By: #### 2 4323-8, 2132-01, , 6-3 ####[facility] [id number] [place] [address] [place] Potassium [Moles/Vol] 4.0 mmol/L Normal 3.7-5.1 [facility] Comment on above: Order Comment: Speci men Type: BLOOD SPECIMENOrdering Facility: [facility] Address: [address] [place] [address] Performed By: #### 2 4322-12, 2132-01, , 3015-3 ####[facility] [id number] [place] [address] [place] Protein [Mass/Vol] 7.3 g/dL Normal 6.3-8.0 [facility] Comment on above: Order Comment: Speci men Type: BLOOD SPECIMENOrdering Facility: [facility] Address: [address] [place], [place] [address] Performed By: #### 2 4322-12, 2132-01, , 3015-3 ####[facility] [id number] [place] [address] [place] Sodium [Moles/Vol] 141 mmol/L Normal 136-144 [facility] Comment on above: Order Comment: Speci men Type: BLOOD SPECIMENOrdering Facility: [facility] Address: [address] [place] [address] Performed By: #### 2 4323-8, 9, , 6-3 ####[facility] [id number] [place] [address] [place] Urea nitrogen [Mass/Vol] 8 mg/dL Normal 7-21 [facility] Comment on above: Order Comment: Speci men Type: BLOOD SPECIMENOrdering Facility: [facility] Address: [address] [place] [address] Performed By: #### 2 4323-8, 9, , 6-3 ####[facility] [id number] [address] [place] ECG COMPLETEon 09-06-2024 ECG COMPLETE Ventricular Rate : 6 9 BPM Atrial Rate : 69 BPM P-R Interval : 150 ms QRS Duration : 90 ms Q-T Interval : 370 ms QTC Calculation(Bazett) : 396 ms Calculated P Tillman : 39 degrees Calculated R Tillman : 15 degrees Calculated T Tillman : 0 degrees NORMAL SINUS RHYTHM WITH SINUS ARRHYTHMIA NORMAL ECG Confirmed by ANATOLIY PÉRZE MD ([id number]) on 09/07/2024 6:02:23 PM NAME : BRIA WITT PID : [id number] : 1985 Gender : Female Race : ORD : [id number] Procedure Date : Sep 06 2024 08:47:49 Edit Date : Sep 07 2024 18:02:27 Diagnosis: NORMAL SINUS RHYTHM WITH SINUS ARRHYTHMIA NORMAL ECG Confirmed by ANATOLIY PÉREZ MD ([id number]) on 09/07/2024 6:02:23 PM Test Reason : R55 Pre-syncope Location : 185 : [facility] Overread By : ANATOLIY PÉREZ MD Edited By : ANATOLIY PÉREZ MD Referred By : , Acquired by : [id number], Normal [facility] Magnesium SerPl-mCncon 05-01 -2025 Magnesium [Mass/Vol] 2.0 mg/dL Normal 1.7-2.3 [facility] Comment on above: Order Comment: Speci men Type: BLOOD SPECIMENOrdering Facility: [facility] Address: [address] [place], [place] [address] Performed By: #### 2 4323-8, 9, , 6-3 ####[facility] LABCLIA [id number] [place] [id number] [place] TSH SerPl-aCncon 09-06-2024 TSH Qn 0.822 m[IU]/L Normal 0.270-4.200 [facility] Comment on above: Order Comment: Speci men Type: BLOOD SPECIMENOrdering Facility: [facility] Address: [address] [place] [address] [place] [address] Result Comment: If t he patient is , TSH reference range varies by gestational period: First Trimester (weeks 9-12): 0.180-2.990 mIU/L Second Trimester: 0.110-3.980 mIU/L Third Trimester: 0.480-4.710 mIU/L Homero Mcintosh et al. A Practical Approach for the Verifications and Determination of Site- and Trimester-Specific Reference Intervals for Thyroid Function tests in . Thyroid, 2019:29:3:412-420. Ramsey Knight et al. 2017 Guidelines of the [place] Thy[employer] for the Diagnosis and Management of Thyroid Disease during and the . Thyroid, 2017:27:3:315-389. Performed By: #### 2 4323-8, 2132-01, , 3015-3 ####[facility]CLIA [id number] [address] [address] [place] UA DIP, URINE (POC)on 2024 BILIRUBIN UA (POCT) Negative Negative [facility] CLARITY UA (POCT) Clear [facility] COLOR UA (POCT) Yellow [facility] GLUCOSE UA (POCT) Negative Negative mg/dL [facility] Hemoglobin Ql (U) Trace-lysed Abnormal Negative [facility] Interpretation and review of laboratory results Abnormal [facility] KETONE UA (POCT) Negative Negative mg/dL [facility] LEUKOCYTES UA (POCT) Negative Negative [facility] NITRITE UA (POCT) Negative Negative [facility] PH UA (POCT) 7 4.5 - 8.0 [facility] Protein Ql (U) Negative Negative mg/dL [facility] SPECIFIC GRAVITY UA (POCT) 1.015 1.005 - 1.030 [facility] UROBILINOGEN UA (POCT) 0.2 Normal E.U./dL [facility] Location:[address], [place], [place], [id number] [place] [address] POINT OF CARE [facility] Urinalysis complete panel (U )on 09-06-2024 Bacteria LM.HPF (Urine sed) [#/Area] Negative Normal Negative [facility] Comment on above: Order Comment: Speci men Type: URINE SPECIMENOrdering Facility: [facility] Address: [address] [place] [address] Performed By: #### 2 4356-8 ####[facility]CL[facility] [id number] [place] [address] [place] Bilirubin Ql (U) Negative Normal Negative [facility] Comment on above: Order Comment: Speci men Type: URINE SPECIMENOrdering Facility: [facility] Address: [address] [place] [address] Performed By: #### 2 4356-8 ####[facility] [id number] [place] [address] [place] Clarity (Unsp spec) Clear Normal [facility] Comment on above: Order Comment: Speci men Type: URINE SPECIMENOrdering Facility: [facility] Address: [address] [place] [address] Performed By: #### 2 4356-8 ####[facility] [id number] [place] [address] [place] Color (U) Yellow Normal Yellow [facility] Comment on above: Order Comment: Speci men Type: URINE SPECIMENOrdering Facility: [facility] Address: [address] [place] [address] Performed By: #### 2 4356-8 ####[facility]CL[facility] [id number] [address] Epithelial cells LM.HPF (Urine sed) [#/Area] None Seen Normal [facility] Comment on above: Order Comment: Speci men Type: URINE SPECIMENOrdering Facility: [facility] Address: [address] [place] [address] Performed By: #### 2 4356-8 ####[facility] [id number] [address] Glucose Test strip (U) [Mass/Vol] Negative Normal Negative [facility] Comment on above: Order Comment: Speci men Type: URINE SPECIMENOrdering Facility: [facility] Address: [address] [place] [address] Performed By: #### 2 4356-8 ####[facility]CLIA [id number] [place] [address] [place] Hemoglobin Ql (U) Negative Normal Negative [facility] Comment on above: Order Comment: Speci men Type: URINE SPECIMENOrdering Facility: [facility] Address: [address] [place] [address] Performed By: #### 2 4356-8 ####[facility] [id number] [address] [place] Hyaline casts (Urine sed) [#/Area] 0 /[LPF] Normal 0 /LPF [facility] Comment on above: Order Comment: Speci men Type: URINE SPECIMENOrdering Facility: [facility] Address: [address] [place] [address] Performed By: #### 2 4356-8 ####[facility]CLIA [id number] [place] [address] [place] Ketones Ql (U) Negative Normal Negative [facility] Comment on above: Order Comment: Speci men Type: URINE SPECIMENOrdering Facility: [facility] Address: [address] [place] [address] Performed By: #### 2 4356-8 ####[facility]CLIA [id number] [facility] [address] [place] [address] [place] Leukocyte esterase Test strip Ql (U) Negative Normal Negative [facility] Comment on above: Order Comment: Speci men Type: URINE SPECIMENOrdering Facility: [facility] Address: [address] [place] [address] Performed By: #### 2 4356-8 ####[facility]CLIA [id number] [address], [place] [address] [place] Nitrite Ql (U) Negative Normal Negative [facility] Comment on above: Order Comment: Speci men Type: URINE SPECIMENOrdering Facility: [facility] Address: [address] [place] [address] Performed By: #### 2 4356-8 ####[facility]CLIA [id number] [place] [address] [place] pH (U) 6.5 [pH] Normal <8.5 [facility] Comment on above: Order Comment: Speci men Type: URINE SPECIMENOrdering Facility: [facility] Address: [address] [place] [address] Performed By: #### 2 4356-8 ####[facility] [id number] [facility] [address], [facility]95 [place] Protein (U) [Mass/Vol] Negative Normal Negative [facility] Comment on above: Order Comment: Speci men Type: URINE SPECIMENOrdering Facility: [facility] Address: [address] [place] [address] Performed By: #### 2 4356-8 ####[facility]CLIA [id number] [address] [place] RBC LM.HPF (Urine sed) [#/Area] 0-2 /HPF Normal 0-2 /HPF [facility] Comment on above: Order Comment: Speci men Type: URINE SPECIMENOrdering Facility: [facility] Address: [address] [place] [address] Performed By: #### 2 4356-8 ####[facility] LABIA [id number] [place] [address] [place] Specific gravity (U) [Rel density] 1.010 Normal 1.005-1.030 [facility] Comment on above: Order Comment: Speci men Type: URINE SPECIMENOrdering Facility: [facility] Address: [address] [place] [address] Performed By: #### 2 4356-8 ####[facility] LABIA [id number] [place] [address] [place] Urobilinogen Ql (U) 0.2 EU/dL Normal 0.2-1.0 EU/dL [facility] Comment on above: Order Comment: Speci men Type: URINE SPECIMENOrdering Facility: [facility] Address: [address] [place] [address] Performed By: #### 2 4356-8 ####[facility] [id number] [place] [address] [place] WBC LM.HPF (Urine sed) [#/Area] 0-5 /HPF Normal 0-5 /HPF [facility] Comment on above: Order Comment: Speci men Type: URINE SPECIMENOrdering Facility: [facility] Address: [address] [place] [address] Performed By: #### 2 4356-8 ####[facility] LABIA [id number] [place] [address] [place] Vit B12 [facility] 05-01-2 025 Cobalamin (Vitamin B12) [Mass/Vol] 486 pg/mL Normal 232-1245 [facility] Comment on above: Order Comment: Speci men Type: BLOOD SPECIMENOrdering Facility: [facility] Address: [address] [place] [address] Performed By: #### 2 4323-8, 2132-9, 99523-6, 3016-3 ####[facility] LABCLIA [id number] JENNIFER KELSEYK [id number] [place] [address] OF [facility] CNOVon 08-02-2024 CNOV Office Visit (INTMWS ) LLOYDBRIA ([id number]) 1985 F Date Time Provider Department 08/02/24 [...] 02/03/2018 Sinus arrhythmia 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 seen on school lunch monitor Smoker 06/24/2010 Snoring 09/29/2009 Sleep study completed [...] disease PAST SURGICAL HISTORY OF Right 03/07/2019 [facility] right arm surgery SHOULDER SURGERY HX Left 01/26/2017 [facility] shoulder surgery - repair of slap tear and arthroscopy SURGICAL EXTRACTION ERUPTED TOOTH 03/03/2009 had all top teeth removed TONSILLECTOMY PRIMARY/SECONDARY Tonsillectomy TUBAL LIGATION, 2011 TYMPANIC MEMB RPR W/WO PREPJ PERFOR PATCH Tympanoplasty WRIST SURGERY HX Right 02/2015 surgery right (more content not included)... Normal [facility] Bacteria Ur Culton 5 Bacteria identified Cx Nom (U) ORGANISM ID: 1 50,000-<100,000 CFU/ml Normal urogenital wilian Streptococcus agalactiae (Group B streptococcus) was identified in this specimen, which is clinically relevant if the individual is . Normal [facility] Comment on above: Performed By: #### 6 30-4 ####[facility]CLIA [id number] [address] [place] CNOVon 07-23-2024 CNOV Office Visit (INTMWS ) BRIA WITT ([id number]) 1985 F Date Time Provider Department 07/23/24 10:20 AM OLDER, BRIANA TORRES During your visit today, we recorded the following information about you: Temperature Pulse Respiration Blood pressure 99.2 degrees 68/minute 16/minute 117/78 Weight 98.9 kg Older, APRN. BrianaMEDIA RELATIONS DIRECTOR 07/23/2024 1:05 PM Signed CC: Patient presents [...] 02/03/2018 Sinus arrhythmia 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 seen on school lunch monitor Smoker 06/24/2010 Snoring 09/29/2009 Sleep study completed [...] SURGICAL HISTORY OF Right 03/07/2019 [facility] (more content not included)... Normal [facility] CNPNon 07-23-2024 CNPN Telephone (INTMWS) BRIA WITT ([id number]) 1985 F Date Time Provider Department 07/23/24 KOKI [place] INTMWS During your visit today, we recorded the following information about you: Oumar Barahona, RN 07/23/2024 8:59 AM Signed Pt reports [...] Pt has same day appt scheduled with Football Pad Repairer. States she will wear a mask. Allergies [...] 02/18/2012 [facility] (more content not included)... Normal [facility] UA DIP, URINE (POC)on 2024 BILIRUBIN UA (POCT) Negative Negative [facility] CLARITY UA (POCT) Clear [facility] COLOR UA (POCT) Yellow [facility] GLUCOSE UA (POCT) Negative Negative mg/dL [facility] Hemoglobin Ql (U) Negative Negative [facility] Interpretation and review of laboratory results Abnormal [facility] KETONE UA (POCT) Negative Negative mg/dL [facility] LEUKOCYTES UA (POCT) Small Abnormal Negative [facility] NITRITE UA (POCT) Negative Negative [facility] PH UA (POCT) 6.5 4.5 - 8.0 [facility] Protein Ql (U) Trace Abnormal Negative mg/dL [facility] SPECIFIC GRAVITY UA (POCT) 1.02 1.005 - 1.030 [facility] UROBILINOGEN UA (POCT) 1 Normal E.U./dL [facility] Location:[address], [id number] [place] [address] POINT OF CARE [facility] Urinalysis complete panel (U )on 07-23-2024 BACTERIA UL 1323.5 uL High Negative [facility] Comment on above: Order Comment: Speci men Type: URINE SPECIMENOrdering Facility: [facility] Address: [address] [place] [address] Performed By: #### 2 4356-8 ####[facility] LABCLIA [id number] [place] [address] [place] Bilirubin Ql (U) Negative Normal Negative [facility] Comment on above: Order Comment: Speci men Type: URINE SPECIMENOrdering Facility: [facility] Address: [address] [place] [address] Performed By: #### 2 4356-8 ####[facility]CLIA [id number] [place] [address] [place] Clarity (Unsp spec) Clear Normal [facility] Comment on above: Order Comment: Speci men Type: URINE SPECIMENOrdering Facility: [facility] Address: [address] [place] [address] Performed By: #### 2 4356-8 ####[facility]CLIA [id number] [facility] [address] [place] [address] [place] [facility] Color (U) Yellow Normal Yellow [facility] Comment on above: Order Comment: Speci men Type: URINE SPECIMENOrdering Facility: [facility] Address: [address] [place] [address] Performed By: #### 2 4356-8 ####[facility]CLIA [id number] [place] [address] [place] Epithelial cells LM.HPF (Urine sed) [#/Area] Moderate Normal [facility] Comment on above: Order Comment: Speci men Type: URINE SPECIMENOrdering Facility: [facility] Address: [address] [place] [address] Performed By: #### 2 4356-8 ####[facility]CLIA [id number] [address], [facility]95 [place] [facility] Glucose Test strip (U) [Mass/Vol] Negative Normal Negative [facility] Comment on above: Order Comment: Speci men Type: URINE SPECIMENOrdering Facility: [facility] Address: [address] [place] [address] Performed By: #### 2 4356-8 ####[facility]CLIA [id number] [facility] [address], [facility]95 [place] Hemoglobin Ql (U) Negative Normal Negative [facility] Comment on above: Order Comment: Speci men Type: URINE SPECIMENOrdering Facility: [facility] Address: [address] [place] [address] Performed By: #### 2 4356-8 ####[facility]CLIA [id number] [facility] [address], [facility]95 [place] Hyaline casts (Urine sed) [#/Area] 0 /[LPF] Normal 0 /LPF [facility] Comment on above: Order Comment: Speci men Type: URINE SPECIMENOrdering Facility: [facility] Address: [address] [place] [address] Performed By: #### 2 4356-8 ####[facility]CLIA [id number] [place] [address] [place] Ketones Ql (U) Negative Normal Negative [facility] Comment on above: Order Comment: Speci men Type: URINE SPECIMENOrdering Facility: [facility] Address: [address] [place] [address] Performed By: #### 2 4356-8 ####[facility]CLIA [id number] [place] [address] [place] Leukocyte esterase Test strip Ql (U) 3+ Abnormal Negative [facility] Comment on above: Order Comment: Speci men Type: URINE SPECIMENOrdering Facility: [facility] Address: [address] [place] [address] Performed By: #### 2 4356-8 ####[facility]CLIA [id number] [place] [address] [place] Nitrite Ql (U) Negative Normal Negative [facility] Comment on above: Order Comment: Speci men Type: URINE SPECIMENOrdering Facility: [facility] Address: [address] [place] [address] Performed By: #### 2 4356-8 ####[facility]CLIA [id number] [place] [address] [place] pH (U) 6.5 [pH] Normal <8.5 [facility] Comment on above: Order Comment: Speci men Type: URINE SPECIMENOrdering Facility: [facility] Address: [address] [place] [address] Performed By: #### 2 4356-8 ####[facility]CLIA [id number] [place] [address] [place] Protein (U) [Mass/Vol] Trace Abnormal Negative [facility] Comment on above: Order Comment: Speci men Type: URINE SPECIMENOrdering Facility: [facility] Address: [address] [place] [address] Performed By: #### 2 4356-8 ####[facility] LABIA [id number] [place] [address] [place] RBC LM.HPF (Urine sed) [#/Area] 0-2 /HPF Normal 0-2 /HPF [facility] Comment on above: Order Comment: Speci men Type: URINE SPECIMENOrdering Facility: [facility] Address: [address] [place] [address] Performed By: #### 2 4356-8 ####[facility] LABIA [id number] [place] [address] [place] Specific gravity (U) [Rel density] 1.022 Normal 1.005-1.030 [facility] Comment on above: Order Comment: Speci men Type: URINE SPECIMENOrdering Facility: [facility] Address: [address] [place] [address] Performed By: #### 2 4356-8 ####[facility] LABIA [id number] [place] [address] [place] Urobilinogen Ql (U) 0.2 EU/dL Normal 0.2-1.0 EU/dL [facility] Comment on above: Order Comment: Speci men Type: URINE SPECIMENOrdering Facility: [facility] Address: [address] [place] [address] Performed By: #### 2 4356-8 ####[facility] LABIA [id number] [place] [address] [place] WBC LM.HPF (Urine sed) [#/Area] 0-5 /HPF Normal 0-5 /HPF [facility] Comment on above: Order Comment: Speci men Type: URINE SPECIMENOrdering Facility: [facility] Address: [address] [place] [address] Performed By: #### 2 4356-8 ####[facility] LABCLIA [id number] [place] [address] [place] XR CHEST 2V [...] thoracic spine. IMPRESSION: No acute radiographic abnormality. Staff Nurse Anesthetist: EDWARD Transcribe Date/Time: Jul 23 2024 4:03P Dictated by : DORON HAND MD This examination was interpreted and the report reviewed and electronically signed by: DORON HAND MD on Jul 23 2024 4:03PM EST [id number] Normal [facility] XR Chest PA and Lateralon IMPRESSION: No acute radiographic abnormality. Staff Nurse Anesthetist: EDWARD Transcribe Date/Time: Jul 23 2024 4:03P [...] the thoracic spine. DIVISION OF RADIOLOGY Provider, Marvin Marie [facility] - 07/23/2024 * * *Final Report* [...] spine. IMPRESSION IMPRESSION: No acute radiographic abnormality. Staff Nurse Anesthetist: PSCB Transcribe Date/Time: Jul 23 2024 4:03P Dictated by : DORON HAND MD This examination was interpreted and the report reviewed and electronically signed by: DORON HAND MD on Jul 23 2024 4:03PM EST [facility] Radiology Study observation (narrative) [facility] XR Chest PA and LateralOrder ed By: Ccf Provider on 07-23-2024 [facility] CNOVon 07-15-2024 CNOV Office Visit (UCWSTR ) BRIA WITT ([id number]) 1985 F Date Time Provider Department 07/15/24 2:30 PM KOLE CAMERON [facility] During your visit today, we recorded the following information about you: Temperature Pulse Respiration Blood pressure 100.2 degrees 108/minute 18/minute 120/72 Weight 101.7 kg Kole Cameron PA 07/15/2024 2:25 PM Signed Cough You [...] 02/03/2018 Sinus arrhythmia 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 seen on school lunch monitor Smoker 06/24/2010 Snoring 09/29/2009 Sleep study completed [...] and removed (more content not included)... Normal [facility] CNNURSEon 07-09-2024 [facility] BRIA WITT ([id number]) 1985 F Date Time Provider Department 07/09/24 8:15 AM [place] NURSE FAMPWS During your visit today, we recorded the [...] Date Reviewed: 07/01/2024 Reviewed by: Malka Moulton APRN.CNP - Fully Assessed Reason for Visit: Imm/Inj [...] (gastroesophageal re (more content not included)... Normal [facility] CNPNon 2024 CNPN Telephone (INTMWS) BRIA WITT ([id number]) 1985 F Date Time Provider Department 07/02/24 [...] Date Reviewed: 07/01/2024 Reviewed by: Malka Moulton APRN.MEDIA RELATIONS DIRECTOR - Fully Assessed Reason for Visit: Orders [681] Primary Visit Diagnosis:Need for vaccination [Z23] Other Visit Diagnosis:Encounter for immunization [Z23] Order(s):HEP B VACCINE, 3-DOSE, AGE 20+ YR (ENGERIX-B, RECOMBIVAX HB) [[id number]] Order #: [id number] HEP B VACCINE, 3-DOSE, AGE 20+ YR (ENGERIX-B, RECOMBIVAX HB) [[id number]] Order #: [id number] FUTURE HEP B VACCINE, 3-DOSE, AGE 20+ YR (ENGERIX-B, RECOMBIVAX HB) [[id number]] Order #: [id number] FUTURE PNEUMOCOCCAL VACCINE, 20 VALENT (PREVNAR 20) [[id number]] Order #: [id number] Prescriptions as of 07/03/2024 - albuterol HFA [...] Obesity [E66.9] (more content not included)... Normal [facility] CNOVon 07-01-2024 CNOV Office Visit (UCWSTR ) BRIA WITT ([id number]) 1985 F Date Time Provider Department 07/01/24 10:45 AM MALKA MOULTON [facility] During your visit today, we recorded the following information about you: Temperature Pulse Respiration Blood pressure 98.2 degrees 90/minute 20/minute 120/64 Weight 102.2 kg Malka Moulton, TOOLS PROGRAMMER.MEDIA RELATIONS DIRECTOR 07/01/2024 11:01 AM Signed This note was created using [employer]. Subjective Bria Witt is a 38 year [...] she is currently visiting a grandchild at [facility] but due to length of symptoms there is no specific treatment indicated. She will follow-up with PCP if symptoms not improving. - COVID AND INFLUENZA A/B AND RSV PCR, ROUTINE Malka Moulton APRN.MEDIA RELATIONS DIRECTOR Referring Provider: SELF [200] Allergies As of [...] Date Reviewed: 07/01/2024 Reviewed by: Malka Moulton APRN.MEDIA RELATIONS DIRECTOR - Fully Assessed Reason for Visit: Ear Problem [38] Cmt: Left ear pain, congestion x 1 week Primary Visit Diagnosis:Nasal congestion [R09.81] Order(s):COVID AND INFLUENZA A/B AND RSV PCR, ROUTINE [SQCVFLRS] Order #: [id number]. #:[id number] Prescriptions as of 07/01/2024 - albuterol HFA [...] oxyCODONE-acetaminophen (PERCOCET) (more content not included)... Normal [facility] GENETIC SENDOUTon 05-25-2024 Genetic Test Name Whole Exome Sequencing Invalid Interpretation Code [facility] Comment on above: Order Comment: Landon nd:Mian Kunz (grandson) Billing type:->Direct Billing type:->Direct CPT Code:->n/a Test code:->561d Specimen requirements:->3-5ml EDTA Date of Service:->05/25/24 Name of Test:->Grandparent sample for whole exome sequencing What is the sendout facility name, if known?->[facility] Reference [facility] Invalid Interpretation Code [facility] Comment on above: Order Comment: Proba nd:Mian pedersen) Billing type:->Direct Billing type:->Direct CPT Code:->n/a Test code:->561d Specimen requirements:->3-5ml EDTA Date of Service:->05/25/24 Name of Test:->Grandparent sample for whole exome sequencing What is the sendout facility name, if known?->[facility] Miscellaneous Results Invalid Interpretation Code [facility] Comment on above: Order Comment: Proba nd:Mian pedersen) Billing type:->Direct Billing type:->Direct CPT Code:->n/a Test code:->561d Specimen requirements:->3-5ml EDTA Date of Service:->05/25/24 Name of Test:->Grandparent sample for whole exome sequencing What is the sendout facility name, if known?->[facility] Result Comment: Dalia zieglerrent specimen - results incorporated into proband's report. Jadon 05-23-2024 [facility] BRIA WITT ([id number]) 1985 F Date Time Provider Department 05/23/24 SURYA [facility]ISHOP [facility] During your visit today, we recorded [...] 10/02/2013 Vagin (more content not included)... Normal [facility] XR CHEST 2V FRONTAL/LATon XR CHEST [...] of hazy opacities in the left lung. Staff Nurse Anesthetist: EDWARD Transcribe Date/Time: May 23 2024 8:22A Dictated by : GREG CARSON MD This examination was interpreted and the report reviewed and electronically signed by: GREG CARSON MD on May 23 2024 8:24AM EST [id number] Normal [facility] XR Chest PA and Lateralon IMPRESSION: Interval near total resolution of hazy opacities in the left lung. Staff Nurse Anesthetist: EDWARD Transcribe Date/Time: May 23 2024 8:22A Dictated by : GREG CARSON MD This examination was interpreted and the report reviewed and electronically signed by: GREG CARSON MD on May 23 2024 8:24AM [facility] DIVISION OF RADIOLOGY * * *Final Report* [...] soft tissues: Unremarkable. DIVISION OF RADIOLOGY Provider, [facility] - 05/23/2024 * * *Final Report* * [...] of hazy opacities in the left lung. Staff Nurse Anesthetist: PSCB Transcribe Date/Time: May 23 2024 8:22A Dictated by : GREG CARSON MD This examination was interpreted and the report reviewed and electronically signed by: GREG CARSON MD on May 23 2024 8:24AM EST [facility] Radiology Study observation (narrative) [facility] XR Chest PA and LateralOrder ed By: Ccf Provider on 05-23-2024 [facility] CBC W Auto Differential pane l (Bld)on 05-11-2024 Basophils (Bld) [#/Vol] 0.06 10*3/uL Normal <0.11 [facility] Comment on above: Order Comment: Speci men Type: BLOOD SPECIMENOrdering Facility: [facility] Address: [address] [place] [address] Performed By: #### 5 7021-8 ####[facility] [id number] [place] [address] [place] Basophils/100 WBC (Bld) 0.7 % Normal [facility] Comment on above: Order Comment: Speci men Type: BLOOD SPECIMENOrdering Facility: [facility] Address: [address] [place] [address] Performed By: #### 5 7021-8 ####[facility] [id number] [place] [address] [place] Differential cell count method Nom (Bld) Auto Normal [facility] Comment on above: Order Comment: Speci men Type: BLOOD SPECIMENOrdering Facility: [facility] Address: [address] [place] [address] Performed By: #### 5 7021-8 ####[facility] [id number] [place] [address] [place] Eosinophils (Bld) [#/Vol] 0.08 10*3/uL Normal <0.46 [facility] Comment on above: Order Comment: Speci men Type: BLOOD SPECIMENOrdering Facility: [facility] Address: [address] [place] [address] Performed By: #### 5 7021-8 ####[facility] MILLWNCLIA [id number] [place] [address] [place] Eosinophils/100 WBC (Bld) 0.9 % Normal [facility] Comment on above: Order Comment: Speci men Type: BLOOD SPECIMENOrdering Facility: [facility] Address: [address] [place] [address] Performed By: #### 5 7021-8 ####[facility]ITALEBONIELIA [id number] [place] [address] [place] Erythrocyte distribution width (RBC) [Ratio] 13.8 % Normal 11.5-15.0 [facility] Comment on above: Order Comment: Speci men Type: BLOOD SPECIMENOrdering Facility: [facility] Address: [address] [place] [address] Performed By: #### 5 7021-8 ####[facility] [id number] [place] [address] [place] Hematocrit (Bld) [Volume fraction] 40.1 % Normal 36.0-46.0 [facility] Comment on above: Order Comment: Speci men Type: BLOOD SPECIMENOrdering Facility: [facility] Address: [address] [place] [address] Performed By: #### 5 7021-8 ####[facility] TR[facility] [id number] [place] [address] [place] Hemoglobin (Bld) [Mass/Vol] 12.9 g/dL Normal 11.5-15.5 [facility] Comment on above: Order Comment: Speci men Type: BLOOD SPECIMENOrdering Facility: [facility] Address: [address] [place] [address] Performed By: #### 5 7021-8 ####[facility]ITALEBONIELIA [id number] [place] [address] [place] Immature granulocytes (Bld) [#/Vol] 10*3/uL Normal <0.10 [facility] Comment on above: Order Comment: Speci men Type: BLOOD SPECIMENOrdering Facility: [facility] Address: [address] [place] [address] Performed By: #### 5 7021-8 ####[facility] [id number] [place] [address] [place] Immature granulocytes/100 WBC (Bld) 0.2 % Normal [facility] Comment on above: Order Comment: Speci men Type: BLOOD SPECIMENOrdering Facility: [facility] Address: [address] [place] [address] Performed By: #### 5 7021-8 ####[facility] [id number] [place] [address] [place] Lymphocytes (Bld) [#/Vol] 3.37 10*3/uL Normal 1.00-4.00 [facility] Comment on above: Order Comment: Speci men Type: BLOOD SPECIMENOrdering Facility: [facility] Address: [address] [place] [address] Performed By: #### 5 7021-8 ####[facility] [id number] [place] [address] [place] Lymphocytes/100 WBC (Bld) 39.3 % Normal [facility] Comment on above: Order Comment: Speci men Type: BLOOD SPECIMENOrdering Facility: [facility] Address: [address] [place] [address] Performed By: #### 5 7021-8 ####[facility] [id number] [place] [address] [place] MCH (RBC) [Entitic mass] 27.0 pg Normal 26.0-34.0 [facility] Comment on above: Order Comment: Speci men Type: BLOOD SPECIMENOrdering Facility: [facility] Address: [address] [place] [address] Performed By: #### 5 7021-8 ####[facility] CRISTY [id number] [place] [address] [place] MCHC (RBC) [Mass/Vol] 32.2 g/dL Normal 30.5-36.0 [facility] Comment on above: Order Comment: Speci men Type: BLOOD SPECIMENOrdering Facility: [facility] Address: [address] [place] [address] Performed By: #### 5 7021-8 ####[facility]ITALOCTAVIANO [id number] [place] [address] [place] MCV (RBC) [Entitic vol] 84.1 fL Normal 80.0-100.0 [facility] Comment on above: Order Comment: Speci men Type: BLOOD SPECIMENOrdering Facility: [facility] Address: [address] [place] [address] Performed By: #### 5 7021-8 ####[facility]ITALOCTAVIANO [id number] [place] [address] [place] Monocytes (Bld) [#/Vol] 0.41 10*3/uL Normal <0.87 [facility] Comment on above: Order Comment: Speci men Type: BLOOD SPECIMENOrdering Facility: [facility] Address: [address] [place] [address] Performed By: #### 5 7021-8 ####[facility]ITALNCLIA [id number] [place] [address] [place] Monocytes/100 WBC (Bld) 4.8 % Normal [facility] Comment on above: Order Comment: Speci men Type: BLOOD SPECIMENOrdering Facility: [facility] Address: [address] [place] [address] Performed By: #### 5 7021-8 ####[facility] MILLTOWNCLIA [id number] [place] [address] [place] Neutrophils (Bld) [#/Vol] 4.64 10*3/uL Normal 1.45-7.50 [facility] Comment on above: Order Comment: Speci men Type: BLOOD SPECIMENOrdering Facility: [facility] Address: [address] [place] [address] Performed By: #### 5 7021-8 ####[facility]ITALNCLIA [id number] [place] [address] [place] Neutrophils/100 WBC (Bld) 54.1 % Normal [facility] Comment on above: Order Comment: Speci men Type: BLOOD SPECIMENOrdering Facility: [facility] Address: [address] [place] [address] Performed By: #### 5 7021-8 ####[facility] [id number] [place] [address] [place] Nucleated RBC (Bld) [#/Vol] 10*3/uL Normal <0.01 [facility] Comment on above: Order Comment: Speci men Type: BLOOD SPECIMENOrdering Facility: [facility] Address: [address] [place] [address] Performed By: #### 5 7021-8 ####[facility] HOSPITALWNCLIA [id number] [place] [address] [place] Nucleated RBC/100 WBC (Bld) [Ratio] 0.0 /100 WBC Normal [facility] Comment on above: Order Comment: Speci men Type: BLOOD SPECIMENOrdering Facility: [facility] Address: [address] [place] [address] Performed By: #### 5 7021-8 ####[facility]ITALNCLIA [id number] [place] [address] [place] Platelet mean volume (Bld) [Entitic vol] 10.3 fL Normal 9.0-12.7 [facility] Comment on above: Order Comment: Speci men Type: BLOOD SPECIMENOrdering Facility: [facility] Address: [address] [place] [address] Performed By: #### 5 7021-8 ####[facility]ITALNCLIA [id number] [place] [address] [place] Platelets (Bld) [#/Vol] 200 10*3/uL Normal 150-400 [facility] Comment on above: Order Comment: Speci men Type: BLOOD SPECIMENOrdering Facility: [facility] Address: [address] [place] [address] Performed By: #### 5 7021-8 ####[facility] FL[facility] HOSPITALNCA [id number] [place] [address] [place] RBC (Bld) [#/Vol] 4.77 10*6/uL Normal 3.90-5.20 [facility] Comment on above: Order Comment: Speci men Type: BLOOD SPECIMENOrdering Facility: [facility] Address: [address] [place] [address] Performed By: #### 5 7021-8 ####[facility]ITALNCLIA [id number] [place] [address] [place] WBC (Bld) [#/Vol] 8.58 10*3/uL Normal 3.70-11.00 [facility] Comment on above: Order Comment: Speci men Type: BLOOD SPECIMENOrdering Facility: [facility] Address: [address] [place] [address] Performed By: #### 5 7021-8 ####[facility] HOSPITALWNCLIA [id number] [place] [address] [place] Comprehensive metabolic 2000 panelon 05-11-2024 Albumin [Mass/Vol] 4.3 g/dL Normal 3.9-4.9 [facility] Comment on above: Order Comment: Speci men Type: BLOOD SPECIMENOrdering Facility: [facility] Address: [address] [place] [address] Performed By: #### 2 4323-8 ####[facility]ITALNCLIA [id number] [place] [address] [place] ALP [Catalytic activity/Vol] 62 U/L Normal 34-123 [facility] Comment on above: Order Comment: Speci men Type: BLOOD SPECIMENOrdering Facility: [facility] Address: [address] [place] [address] Performed By: #### 2 4323-8 ####[facility] [id number] [place] [address] [place] ALT [Catalytic activity/Vol] 11 U/L Normal 7-38 [facility] Comment on above: Order Comment: Speci men Type: BLOOD SPECIMENOrdering Facility: [facility] Address: [address] [place] [address] Performed By: #### 2 4323-8 ####[facility] [id number] [place] [address] [place] Anion gap [Moles/Vol] 10 mmol/L Normal 8-15 [facility] Comment on above: Order Comment: Speci men Type: BLOOD SPECIMENOrdering Facility: [facility] Address: [address] [place] [address] Performed By: #### 2 4323-8 ####[facility] [id number] [place] [address] [place] AST [Catalytic activity/Vol] 12 U/L Low 13-35 [facility] Comment on above: Order Comment: Speci men Type: BLOOD SPECIMENOrdering Facility: [facility] Address: [address] [place] [address] Performed By: #### 2 4323-8 ####[facility] MILLTOWNCLIA [id number] [place] [address] [place] Bilirubin [Mass/Vol] mg/dL Low 0.2-1.3 [facility] Comment on above: Order Comment: Speci men Type: BLOOD SPECIMENOrdering Facility: [facility] Address: [address] [place] [address] Performed By: #### 2 4323-8 ####[facility] HOSPITALWNCLIA [id number] [place] [address] [place] Calcium [Mass/Vol] 9.4 mg/dL Normal 8.5-10.2 [facility] Comment on above: Order Comment: Speci men Type: BLOOD SPECIMENOrdering Facility: [facility] Address: [address] [place] [address] Performed By: #### 2 4323-8 ####[facility]ITALNCLIA [id number] [place] [address] [place] Chloride [Moles/Vol] 102 mmol/L Normal 98-107 [facility] Comment on above: Order Comment: Speci men Type: BLOOD SPECIMENOrdering Facility: [facility] Address: [address] [place] [address] Performed By: #### 2 4323-8 ####[facility] MILLWNCLIA [id number] [place] [address] [place] CO2 [Moles/Vol] 25 mmol/L Normal 22-30 [facility] Comment on above: Order Comment: Speci men Type: BLOOD SPECIMENOrdering Facility: [facility] Address: [address] [place] [address] Performed By: #### 2 4323-8 ####[facility] HOSPITALWNCLIA [id number] [place] [address] [place] Creatinine [Mass/Vol] 0.58 mg/dL Normal 0.58-0.96 [facility] Comment on above: Order Comment: Val sarmiento Type: BLOOD SPECIMENOrdering Facility: [facility] Address: [address] [place] [address] Performed By: #### 2 4323-8 ####[facility] [id number] [place] [address] [place] Creatinine and Glomerular filtration rate.predicted panel (S/P/Bld) 117 mL/min/1.73m??? Normal >=60 [facility] Comment on above: Order Comment: Val sarmiento Type: BLOOD SPECIMENOrdering Facility: [facility] Address: [address] [place] [address] Result Comment: Denise mated Glomerular Filtration Rate [...] actual GFR. Performed By: #### 2 4323-8 ####[facility] [id number] [place] [address] [place] Glucose [Mass/Vol] 111 mg/dL High 74-99 [facility] Comment on above: Order Comment: Val sarmiento Type: BLOOD SPECIMENOrdering Facility: [facility] Address: [address] [place] [address] Result Comment: The [place] Diabetes Association (ADA) provides guidance for cutoff [...] Standards of Medical Care in Diabetes 2016, [place] [employer] Association. Diabetes Care. 2016.39(Suppl 1). Performed By: #### 2 4323-8 ####[facility] VETO RAMÍREZELIZABETH [id number] [place] [address] [place] Potassium [Moles/Vol] 3.9 mmol/L Normal 3.7-5.1 [facility] Comment on above: Order Comment: Speci men Type: BLOOD SPECIMENOrdering Facility: [facility] Address: [address] [place], [place] [address] Performed By: #### 2 4323-8 ####[facility]ITALOCTAVIANO [id number] [place] [address] [place] Protein [Mass/Vol] 7.0 g/dL Normal 6.3-8.0 [facility] Comment on above: Order Comment: Speci men Type: BLOOD SPECIMENOrdering Facility: [facility] Address: [address] [place], [place] [address] Performed By: #### 2 4323-8 ####[facility] [id number] [place] [address] [place] Sodium [Moles/Vol] 137 mmol/L Normal 136-144 [facility] Comment on above: Order Comment: Speci men Type: BLOOD SPECIMENOrdering Facility: [facility] Address: [address] [place] [address] Performed By: #### 2 4323-8 ####[facility] HOSPITALNCLIBuddy [id number] [place] [address] [place] Urea nitrogen [Mass/Vol] 10 mg/dL Normal 7-21 [facility] Comment on above: Order Comment: Speci men Type: BLOOD SPECIMENOrdering Facility: [facility] Address: [address] [place] [address] Performed By: #### 2 4323-8 ####[facility] VETO MILLTOWNCLIA [id number] [place] [address] [place] Ferritin SerPl-mCncon 2024 Ferritin [Mass/Vol] 33.5 ng/mL Normal 14.7-205.1 [facility] Comment on above: Order Comment: Speci men Type: BLOOD SPECIMENOrdering Facility: [facility] Address: [address] [place] [address] Performed By: #### 2 276-4 ####[facility] LABIA [id number] [place] [address] [place] Iron and Iron binding capaci ty panelon 05-11-2024 Iron [Mass/Vol] 58 ug/dL Normal 41-186 [facility] Comment on above: Order Comment: Speci men Type: BLOOD SPECIMENOrdering Facility: [facility] Address: [address] [place] [address] Performed By: #### 3 016-3, 84043-3, 3024-7, 3051-0 ####[facility] LABIA [id number] [place] [address] [place] Iron binding capacity [Mass/Vol] 338 ug/dL Normal 232-386 [facility] Comment on above: Order Comment: Speci men Type: BLOOD SPECIMENOrdering Facility: [facility] Address: [address] [place] [address] Performed By: #### 3 016-3, 68515-8, 3024-7, 3051-0 ####[facility] LABIA [id number] [place] [id number] [place] Iron/TIBC [Molar ratio] 17.2 % Normal 15.0-57.0 [facility] Comment on above: Order Comment: Speci men Type: BLOOD SPECIMENOrdering Facility: [facility] Address: [address] [place] [address] Performed By: #### 3 016-3, 80764-4, 3023-7, 3051-0 ####[facility] LABCLIA [id number] [place] [address] [place] T3Free SerPl-mCncon 05-11-19 25 Free T3 [Mass/Vol] 3.5 pg/mL Normal 2.3-4.1 [facility] Comment on above: Order Comment: Speci men Type: BLOOD SPECIMENOrdering Facility: [facility] Address: [address] [place] [address] Performed By: #### 3 016-3, 07958-5, 4-7, 305-0 ####[facility] LABCLIA [id number] [place] [address] [place] T4 Free SerPl-mCncon 025 Free T4 [Mass/Vol] 1.0 ng/dL Normal 0.9-1.7 [facility] Comment on above: Order Comment: Speci guillermina Type: BLOOD SPECIMENOrdering Facility: [facility] Address: [address] [place] [address] Performed By: #### 3 016-3, 99201-9, 7, 305-0 ####[facility] LABIA [id number] [place] [address] [place] TSH SerPl-aCncon 05-11-2024 TSH Qn 1.040 m[IU]/L Normal 0.270-4.200 [facility] Comment on above: Order Comment: Val sarmiento Type: BLOOD SPECIMENOrdering Facility: [facility] Address: [address] [place] [address] Result Comment: If t he patient is , TSH reference range varies by gestational period: First Trimester (weeks 9-12): 0.180-2.990 mIU/L Second Trimester: 0.110-3.980 mIU/L Third Trimester: 0.480-4.710 mIU/L Homero Mcintosh et al. A Practical Approach for the Verifications and Determination of Site- and Trimester-Specific Reference Intervals for Thyroid Function tests in . Thyroid, 2019:29:3:412-420. Ramsey E, et al. 2017 Guidelines of the [place] Thyroid Association for the Diagnosis and Management of Thyroid Disease during and the . Thyroid, 2017:27:3:315-389. Performed By: #### 3 016-3, 42259-0, 3024-7, 3051-0 ####[facility] LABCLIA [id number] [place] [id number] [facility] CNOVon 05-08-2024 CNOV Office Visit (FAMPWS ) BRIA WITT ([id number]) 1985 F Date Time Provider Department 05/08/24 8:00 AM [facility] During your visit today, we recorded the [...] prescribed Nadolol to use prn. Following with [place]. Scheduled to picker and packer 48 hour holter monitor today. [place] palpitations in office today. Had ECG and [...] 02/03/2018 Sinus arrhythmia 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 seen on school lunch monitor Smoker 06/24/2010 Snoring 09/29/2009 Sleep study completed [...] once daily (more content not included)... Normal [facility] Cardiology Visit Reporton Cardiology Visit Report [facility] [address] [place] [address] OFFICE VISIT Date of Service: 05/01/24 MR#: [id number] Acct: [id number] Name: BRIA WITT Rep #: [id number] : 1985 Provider: Dr. Gio Holguin MD Age/Sex: 38/F Location[facility] Status: Signed HPI HPI History of Present Illness Details: This is a a 38-year old white female who presents for outpatient cardiovascular follow-up of a history of PVCs and palpitations superimposed on hyperlipidemia and hypertension. She has been evaluated by [facility] electrophysiology-Dr. Schneider. He recommended medical therapy. She [...] Monitor Intake Visit Reasons: 1 Y FU Paperback Machine Operator Required: No Accompanied by: Self Is patient [...] you fallen in the past year?: No PFSH Medical History CRPS (complex regional pain syndrome [...] Right a (more content not included)... Normal [facility] CNOVon 04-17-2024 [facility] Office Visit (UCWSTR ) LLOYDBRIA ([id number]) 1985 F Date Time Provider Department 04/17/24 10:15 AM ADRIANA COULTER [facility] During your visit today, we recorded the [...] 02/03/2018 Sinus arrhythmia 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 seen on school lunch monitor Smoker 06/24/2010 Snoring 09/29/2009 Sleep study completed [...] nevus [address] Sunday. I AND D VULVA /PERINEAL CYST 10/19/2010 [...] SURGICAL HISTORY OF Right 03/07/2019 [facility] - right arm surgery SHOULDER SURGERY HX Left 01/26/2017 [facility] - Left shoulder surgery - repair [...] Feathers, Potassium (more content not included)... Normal [facility] COVID AND INFLUENZA A/B AND RSV PCR, ROUTINEon 04-17-2024 SARS-CoV-2 (COVID-19) RNA RISHABH+probe Ql (Unsp spec) SARS-COV-2 (AGENT OF COVID-19) RNA: Detected INFLUENZA A RNA: Not detected INFLUENZA B RNA: Not detected RESPIRATORY SYNCYTIAL VIRUS (RSV) RNA: Not detected Abnormal [facility] Comment on above: Performed By: #### C VFLRS ####[facility] LABCLIA [id number] [place] [address] [place] STREP A MOLECULAR (POC)on Procedural Control Valid [facility] Strep A (POCT) Negative Negative [facility] XR CHEST 2V FRONTAL/LATon XR CHEST [...] LEFT perihilar region which may be infectious/inflammatory. Staff Nurse Anesthetist: EDWARD Transcribe Date/Time: Apr 17 2024 10:44A Dictated by : BRIAN GRAVES DO This examination was interpreted and the report reviewed and electronically signed by: BRIAN GRAVES DO on Apr 17 2024 10:49AM EST [id number] Normal [facility] XR Chest PA and Lateralon IMPRESSION: Possible vague opacity LEFT perihilar region which may be infectious/inflammatory. Staff Nurse Anesthetist: EDWARD Transcribe Date/Time: Apr 17 2024 10:44A [...] the thoracic spine. DIVISION [facility]OLOGY [facility] * * *Final Report* [...] LEFT perihilar region which may be infectious/inflammatory. Staff Nurse Anesthetist: PSCCristian Transcribe Date/Time: Apr 17 2024 10:44A Dictated by : BRIAN GRAVES DO This examination was interpreted and the report reviewed and electronically signed by: BRIAN GRAVES DO on Apr 17 2024 10:49AM EST [facility] Radiology Study observation (narrative) [facility] XR Chest PA and LateralOrder ed By: Ccf Provider on 04-17-2024 [facility] Urgent Care Visit Reporton 1 06-17-2023 Urgent Care Visit Report [facility] [address] , [address] [place], [place] [id number] OFFICE VISIT Date of Service: 04/16/24 MR#: [id number] Acct: [id number] Name: BRIA WTIT Rep #: [id number] : 1985 Provider: HOLLI Caruso Age/Sex: 38/F Location: [facility] Status: Signed Intake Vital Signs 01/19/24 07:30 04/16/24 07:32 Height 5 ft 5 in BP 120/78 Blood Pressure Location Lt brachial Position Sitting Respiration 12 Pulse 112 H Pulse Source NIBP Temp 98.7 F Temp Source Oral Pulse Oximetry (%) 98 Oxygen Delivery Method room air Intake Visit Reasons: COUGH/ST Chief Complaint: cough, sore throat, congestion x4 days Paperback Machine Operator Required: No Is patient in pain?: No [...] for cough, sore throat, congestion x4 days. [facility] Medical History CRPS (complex regional pain syndrome [...] participate in: none and walking frequency: daily uday/muslim: None seatbelt use: always HPI HPI Chief [...] years. Declines POC screening upon offering. No wilv-mio-sleyefb taken to assist. No other associated symptoms [...] posterior orophar (more content not included)... Normal [facility] CNPSunshine 03-19-2024 [facility] Telephone (UCTR) LLOYDBRIA ([id number]) 1985 F Date Time Provider Department 03/19/24 HEBER FERRELL [facility] During your visit today, we recorded the following information about you: Heber Ferrell MD 03/19/2024 7:15 AM Signed Urine was not a clean sample so culture did not show a clear infection. Finish antibiotic and follow up with PCP, urology, or TELESALES MANAGER if symptoms persist. Irma Cardenas MA 03/19/2024 [...] four times daily for 7 days. - hpskgddh-veqrmrxcy-nhbldwvu tisone (CORTISPORIN) 3.5-10,000-1 mg/mL-unit/mL-% otic suspension Use [...] disc dis (more content not included)... Normal [facility] Bacteria Ur Culton 4 Bacteria identified Cx Nom (U) ORGANISM ID: 1 10,000 -<50,000 CFU/ml Normal urogenital wilian Normal [facility] Comment on above: Performed By: #### 6 30-4 ####[facility] LABCLIA [id number] [place]ENNIFER [place]IREZ [id number] [id number] [place] CNOVon 03-17-2024 [facility] Office Visit (UCWSTR ) BRIA WITT ([id number]) 1985 F Date Time Provider Department 03/17/24 1:45 PM DERIC LATHAM [facility] During your visit today, we recorded the following information about you: Temperature Pulse Respiration Blood pressure 98.2 degrees 90/minute 21/minute 118/62 Weight 100.1 kg Deric Latham APRN.MEDIA RELATIONS DIRECTOR 03/17/2024 1:56 PM Signed CC: Patient presents [...] 02/03/2018 Sinus arrhythmia 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 seen on school lunch monitor Smoker 06/24/2010 Snoring 09/29/2009 Sleep study completed [...] MIRENA LAPS (more content not included)... Normal [facility] UA DIP, URINE (POC)on 2023 BILIRUBIN UA (POCT) Negative Negative [facility] CLARITY UA (POCT) Clear [facility] COLOR UA (POCT) Yellow [facility] GLUCOSE UA (POCT) Negative Negative mg/dL [facility] Hemoglobin Ql (U) Trace-lysed Abnormal Negative [facility] Interpretation and review of laboratory results Abnormal [facility] KETONE UA (POCT) Negative Negative mg/dL [facility] LEUKOCYTES UA (POCT) Trace Abnormal Negative [facility] NITRITE UA (POCT) Negative Negative [facility] PH UA (POCT) 7.0 4.5 - 8.0 [facility] Protein Ql (U) Negative Negative mg/dL [facility] SPECIFIC GRAVITY UA (POCT) 1.020 1.005 - 1.030 [facility] UROBILINOGEN UA (POCT) 0.2 Normal E.U./dL [facility] Location:[facility], [address] [place] [address], [place], [address] [facility] POINT OF CARE [facility] BACTERIAL VAGINOSIS NAATon 1 Lactobacillus crispatus+gasseri+j ensenii + Gardnerella vaginalis + Atopobium vaginae rRNA RISHABH+probe Ql (Vag fld) Positive Abnormal Negative for bacterial vaginosis [facility] Comment on above: Order Comment: Speci men Type: SWABOrdering Facility: [facility] Address: [address] [place] [address] Performed By: #### C VTV, BVAMP ####[facility] LABCLIA [id number] [place] [address] [place] MARTÍN/TRICHOMONAS NAATon 1 C. glabrata RNA RISHABH+probe Ql (Vag fld) Negative Normal Negative for Martín glabrata [facility] Comment on above: Order Comment: Speci men Type: SWABOrdering Facility: [facility] Address: [address] [place] [address] Performed By: #### C VTV, BVAMP ####[facility] LABCLIA [id number] [place] [address] [place] Martín sp DNA RISHABH+probe Ql (Vag fld) Negative Normal Negative for Martín species [facility] Comment on above: Order Comment: Speci men Type: SWABOrdering Facility: [facility] Address: [address] [place] [address] Performed By: #### C VTV, BVAMP ####[facility] LABCLIA [id number] [place] [address] [place] T. vaginalis DNA RISHABH+probe Ql (Unsp spec) Negative Normal Negative for Trichomonas vaginalis by amplification [facility] Comment on above: Order Comment: Speci men Type: SWABOrdering Facility: [facility] Address: [address] [place] [address] Performed By: #### C VTV, BVAMP ####[facility] LABCLIA [id number] [place] [address] [place] CNOVon 10-28-2024 [facility] Office Visit (OBGYWM ) MARYBELBRIA WESTFALL ([id number]) 1985 F Date Time Provider Department 03/05/24 8:20 AM NGA MICHEL OBGYWM During your visit today, we recorded the following information about you: Blood pressure Weight Height Last Period 98.3 kg 1.651 m 01/13/24 Nga Michel [...] L6 SAB2 IAB0 Ectopic0 Multiple0 Live Births4 Machine Tool Builder History LMP: 01/13/2024 (Exact Date), IUD Age at Menarche: Age at First : Age at Menopause: Machine Tool Builder History Comments: Sexual Activity: Yes; Male Contraception: [...] 02/03/2018 Sinus arrhythmia 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 seen on school lunch monitor Smoker 06/24/2010 Snoring 09/29/2009 Sleep study completed [...] MIRENA LAPS SURG CHOLECYSTECTOMY W/CHOLANGIOGRAPHY 02/12/2014 normal IO LARYNGOSCOPY LARYNGOSCOPY LEFT HEART CATH,PERCUTANEOUS 2007 MIRENA 08/02/2016 Placed in office- due for removal 2023 MYRINGOTOMY ASPIRAND/EUSTACHIAN TUBE NFLTJ ANES Myringotomy/tubes PAST SURGICAL HISTORY OF Right 02/05/2015 ulnar pinning X2 PAST SURGICAL HISTORY OF Right 09/10/2014 Right axilla excision of auto immune skin disease PAST SURGICAL HISTORY OF Right 03/07/2019 [facility] - right arm surgery SHOULDER SURGERY HX Left 01/26/2017 [facility] - [facility] shoulder surgery - repair of slap tear and arthroscopy SURGICAL EXTRACTION ERUPTED TOOTH 03/03/2009 had all top teeth removed TONSILLECTOMY PRIMARY/SECONDARY Tonsillectomy TUBAL LIGATION, 2011 TYMPANIC MEMB (more content not included)... Normal [facility] CNOVon 02-15-2024 CNOV Office Visit (OBGYWM ) DEBRASERGO ABDILEY ([id number]) 1985 F Date Time Provider Department 02/15/24 10:50 AM NGA MICHEL OBGYWM During your visit today, we recorded the following information about you: Blood pressure Weight 116/74 98 kg Nga Michel MD 02/15/2024 7:40 PM Signed Attorney Recruiter offered: Patient declines. Bria Marybelmich presents today for IUD check. She had a Mirena placed on 01/13/24. She has had spotting since placement. REVIEW OF SYSTEMS: GENERAL: No weight loss, malaise or fevers : No history of dysuria, frequency or incontinence TELESALES MANAGER: Negative for abnormal vaginal bleeding, abnormal vaginal discharge SENSITIVE EXAM: The sensitive examination was discussed with the Patient or Patient's Authorized Laundry Tech. As applicable, any other physician, advance practice provider, medical student, or other health professional student that will be observing or involved in the sensitive examination for educational or training purposes was discussed with the Patient or Authorized Laundry Tech. The Patient or Authorized Laundry Tech has agreed to proceed with the sensitive [...] as needed. (more content not included)... Normal [facility] CNOVon 02-06-2024 CNOV Office Visit (INTMWS ) BRIA WITT ([id number]) 1985 F Date Time Provider Department 02/06/24 9:20 AM BRIANA LEGGETT INTCHAR[place]OTTE During your visit today, we recorded the following information about you: Pulse Respiration Blood pressure Weight 72/minute 16/minute 122/68 98 kg Briana Leggett APRN.MEDIA RELATIONS DIRECTOR 02/06/2024 9:37 AM Signed CC: Patient presents [...] 02/03/2018 Sinus arrhythmia 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 seen on school lunch monitor Smoker 06/24/2010 Snoring 09/29/2009 Sleep study completed [...] ulnar pinni (more content not included)... Normal [facility] CNOVon 01-13-2024 CNOV Office Visit (OBGYWM ) BRIA WITT ([id number]) 1985 F Date Time Provider Department 01/13/24 9:00 AM NGA MICHEL OBDOROTHEA During your visit today, we recorded the [...] IUD source: office provided IUD lot #: [id number] Exp date: 01/06/2026 UNIVERSAL PROTOCOL / SAFETY [...] or sooner as needed. MD Brook [facility] MD 01/13/2024 9:08 AM Signed POST IUD INSTRUCTIONS [...] contact the office. Referring Provider: ADELE COSTA [[id number]] Allergies As of Date: 01/13/2024 Noted Allergy [...] 1 EachRfl: 0 UA DIP,URINE HCG (POC) [[id number]] Order #: [id number]. #:[id number] -LAB Prescriptions as of 01/13/2024 - levonorgestrel [...] test ( ESSENTIALS UTI MISC) Cranberry supplement - nystatin (MYCOSTATIN) 100,000 unit/mL suspens (more content not included)... Normal [facility] UA DIP,URINE HCG (POC)on Beta HCG ( test) Ql (U) Negative Negative [facility] Comment on above: Location:[facility], [address], [place], [address] Reweaver (POCT) Internal QC OK [facility] Location:[facility], [address], [place], [address] [facility] POINT OF CARE [facility] 12-15-2023 [place] Telephone (OBGYWM) BRIA WITT ([id number]) 1985 F Date Time Provider Department 12/15/23 ADELE COSTA During your visit today, we recorded the [...] Date Reviewed: 12/14/2023 Reviewed by: Adele Costa APRN.MEDIA RELATIONS DIRECTOR - Fully Assessed Reason for Visit: Results [...] urinary tract infection test ( ESSENTIALS UTI [facility]) Cranberry supplement - nystatin (MYCOSTATIN) 100,000 unit/mL [...] - EP (more content not included)... Normal [facility] BACTERIAL VAGINOSIS NAATon 0 12-14-2023 Lactobacillus crispatus+gasseri+j ensenii + Gardnerella vaginalis + Atopobium vaginae rRNA RISHABH+probe Ql (Vag fld) Positive Abnormal Negative for bacterial vaginosis [facility] Comment on above: Order Comment: Speci men Type: SWABOrdering Facility: [facility] Address: [address] [place] [address] Performed By: #### B VAMP, CVTV ####[facility] LABCLIA [id number] [place] [address] [place] C. trachomatis+N. gonorrhoea e DNA RISHABH+probe Ql (Unsp spec)on 12-14-2023 C. trachomatis rRNA RISHABH+probe Ql (Unsp spec) Negative Normal Negative for Chlamydia trachomatis by amplificaton [facility] Comment on above: Order Comment: Speci men Type: SWABOrdering Facility: [facility] Address: [address] [place] [address] Performed By: #### 3 6902-5 ####[facility] LABCLIA [id number] [place] [address] [place] N. gonorrhoeae rRNA RISHABH+probe Ql (Unsp spec) Negative Normal Negative for Neisseria gonorrhoeae by amplification [facility] Comment on above: Order Comment: Speci men Type: SWABOrdering Facility: [facility] Address: [address] [place] [address] Performed By: #### 3 6902-5 ####[facility] LABCLIA [id number] [place] [address] [place] MARTÍN/TRICHOMONAS NAATon 0 12-14-2023 C. glabrata RNA RISHABH+probe Ql (Vag fld) Negative Normal Negative for Martín glabrata [facility] Comment on above: Order Comment: Speci men Type: SWABOrdering Facility: [facility] Address: [address] [place] [address] Performed By: #### B VAMP, CVTV ####[facility] LABCLIA [id number] [place] [address] [place] Martín sp DNA RISHABH+probe Ql (Vag fld) Negative Normal Negative for Martín species [facility] Comment on above: Order Comment: Speci men Type: SWABOrdering Facility: [facility] Address: [address] [place] [address] Performed By: #### B VAMP, CVTV ####[facility] LABCLIA [id number] [place] [address] [place] T. vaginalis DNA RISHABH+probe Ql (Unsp spec) Negative Normal Negative for Trichomonas vaginalis by amplification [facility] Comment on above: Order Comment: Speci men Type: SWABOrdering Facility: [facility] Address: [address] [place] [address] Performed By: #### B VAMP, CVTV ####[facility] LABCLIA [id number] [place] [address] [place] CNOVon 12-14-2023 CNOV Office Visit (OBGYWM ) BRIA WITT ([id number]) 1985 F Date Time Provider Department 12/14/23 10:45 AM ADELE COSTA OBKRISTYWOumar During your visit today, we recorded the following information about you: Pulse Respiration Blood pressure Weight 70/minute 14/minute 108/68 98 kg Height Last Period 1.638 m 11/26/23 Adele Costa APRN.MEDIA RELATIONS DIRECTOR 12/14/2023 11:20 AM Signed Attorney Recruiter offered: Patient declines. Bria Witt is a 38 year old female who presents for problem visit of vaginal itching. HPI: Bria had had vaginal itching for 1 week. Thinks it may have been triggered by the Doxycyline she was prescribed for HS. Same sexual partner for 6 months. 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 LMP: 05/05/2023 (Exact Date), Having periods Age at Menarche: Age at First : Age at Menopause: Machine Tool Builder History Comments: Sexual Activity: Not Currently; Male [...] arrhythmia No date: 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 seen on school lunch monitor 06/24/2010: Smoker 09/29/2009: Snoring Comment: Sleep study [...] OF; Right (more content not included)... Normal [facility] HSV+VZV DNA RISHABH+probe Ql (Un sp spec)on 12-14-2023 HSV 1 DNA RISHABH+probe Ql (Unsp spec) Not detected Normal Not Detected [facility] Comment on above: Order Comment: Speci men Type: SWABOrdering Facility: [facility] Address: [address] [place] [address] Performed By: #### 3 3027-4 ####[facility] LABCLIA [id number] [address] [place] HSV 2 DNA RISHABH+probe Ql (Unsp spec) Not detected Normal Not Detected [facility] Comment on above: Order Comment: Speci men Type: SWABOrdering Facility: [facility] Address: [address] [place] [address] Performed By: #### 3 3027-4 ####[facility] LABCLIA [id number] [address] OF [facility] VZV DNA RISHABH+probe Ql (Unsp spec) Not detected Normal Not Detected [facility] Comment on above: Order Comment: Speci men Type: SWABOrdering Facility: [facility] Address: [address] [place] [address] Performed By: #### 3 3027-4 ####[facility] LABIA [id number] [address] OF [facility] CNOVon 11-22-2023 CNOV Office Visit (UCWSTR ) BRIA WITT ([id number]) 1985 F Date Time Provider Department 11/22/23 7:45 AM DERIC LATHAM [facility] During your visit today, we recorded the following information about you: Temperature Pulse Respiration Blood pressure 98.1 degrees 78/minute 16/minute 122/72 Weight 98.4 kg Deric Latham APRN.MEDIA RELATIONS DIRECTOR 11/22/2023 7:57 AM Signed Subjective Patient came [...] history is provided by the patient. No bilingual speech language pathologist was used. Rash Review of Systems Constitutional: [...] 02/03/2018 Sinus arrhythmia 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 seen on school lunch monitor Smoker 06/24/2010 Snoring 09/29/2009 Sleep study completed [...] SURGICAL HISTORY OF Right 03/07/2019 [facility] - right arm surgery SHOULDER SURGERY HX Left 01/26/2017 [facility] - Left shoulder surgery - repair of slap tear and arthroscopy SURGICAL EXTRACTION ERUPTED TOOTH 03/03/2009 had all top teeth removed TONSILLECTOMY PRIMARY/SECONDARY Tonsillecto (more content not included)... Normal [facility] STREP A MOLECULAR (POC)on Procedural Control Valid [facility] Strep A (POCT) Negative Negative [facility] DBT Breast - bilateral diagn ostic for implanton 09-14-2023 * * *Final Report* * * DATE OF EXAM: Sep 14 2023 9:36AM [facility] 0627 - [facility] DIAG W SANTINO KASHIF / PROCEDURE REASON: Nipple discharge * * * * Physician Interpretation * * * * RESULT: #[id number] - [facility] DIAG W SANTINO KASHIF #[id number] - [facility] [employer] RT BILATERAL DIGITAL DIAGNOSTIC MAMMOGRAM TOMOSYNTHESIS [...] in either breast. DIVISION OF RADIOLOGY Provider, [facility] - 09/14/2023 * * *Final Report* * * DATE OF EXAM: Sep 14 2023 9:36AM [facility] 0627 - [facility] [employer] W SANTINO KASHIF / PROCEDURE REASON: Nipple discharge * * * * Physician Interpretation * * * * RESULT: #[id number] - [facility] Easy [employer] W SANTINO KASHIF #[id number] - [facility] [employer] RT BILATERAL DIGITAL DIAGNOSTIC MAMMOGRAM TOMOSYNTHESIS WITH [...] Health, Family Medicine, and Medical/Surgical Oncology, the [facility] has carefully reviewed the data and [...] their providers when to stop screening mammograms. [employer] System Operator(s): Sweetie Fenton, [facility]; Karol Gregg, [facility] OVERALL STUDY BIRADS: 1 Negative Staff Nurse Anesthetist: Chetna Transcribe Date/Time: Sep 14 2023 9:04A Dictated by: RENATA DE LUNA MD This examination was interpreted and the report reviewed and electronically signed by: RENATA D ELUNA MD on Sep 14 2023 9:57AM EST [facility] No Panel InformationOrdered By: Ccf Provider on 09-14-2023 [facility] No Panel Informationon 09-13 Radiology Study observation (narrative) [facility] US Breast - right limitedon 09-14-2023 * * *Final Report* * * DATE OF EXAM: Sep 14 2023 9:41AM [facility] 0594 - [facility] US BREAST LTD RT / PROCEDURE REASON: Nipple discharge * * * * Physician Interpretation * * * * #[id number] - [facility] DIAG W SANTINO KASHIF #[id number] - [facility] US BREAST LTD RT BILATERAL DIGITAL DIAGNOSTIC MAMMOGRAM [...] in either breast. DIVISION OF RADIOLOGY Provider, [facility] - 09/14/2023 * * *Final Report* * * DATE OF EXAM: Sep 14 2023 9:41AM [facility] 0594 - [facility] [employer] BREAST LTD RT / PROCEDURE REASON: Nipple discharge * * * * Physician Interpretation * * * * #[id number] - [facility] DIAG W SANTINO KASHIF #[id number] - [facility] US BREAST LTD RT BILATERAL DIGITAL DIAGNOSTIC MAMMOGRAM [...] Health, Family Medicine, and Medical/Surgical Oncology, the [facility] has carefully reviewed the data and [...] their providers when to stop screening mammograms. [employer] System Operator(s): Sweetie Fenton, [facility]; Karol Gregg [facility] OVERALL STUDY BIRADS: 1 Negative Staff Nurse Anesthetist: Chetna Transcribe Date/Time: Sep 14 2023 9:04A Dictated by : RENATA DE LUNA MD This examination was interpreted and the report reviewed and electronically signed by: RENATA DE LUNA MD on Sep 14 2023 9:57AM EST [facility] Basophil percentageOrdered B y: Adore Miller on 07-01-2023 Bilirubin [Mass/Vol] 0.20 mg/dL 0.20-1.00 [facility] Comment on above: For patients on eltr ombopag therapy, use of Dimension [place] TBIL is not recommended. Cholesterol [Mass/Vol] 165 mg/dL <200 [facility] Comment on above: <200 mg/dL Desirable 200-240 mg/dL Borderline >240 mg/dL High Risk Protein [Mass/Vol] 7.2 g/dL 6.4-8.2 [facility] Triglyceride [Mass/Vol] 120 mg/dL <199 [facility] Comment on above: The drugs N-Acetylcy steine and Metamizole may falsely depress this assay.Serum Triglycerides Reference Interval Normal <150 mg/dL Borderline high 150 - 199 mg/dL High 200 - 499 mg/dL Very High > or = 500 mg/dL Direct bilirubinOrdered By: Adore Miller on 07-01-2023 Bilirubin.direct [Mass/Vol] 0.10 mg/dL 0.00-0.30 [facility] - Chemistry and C hemistry - challengeOrdered By: Adore Miller on 07-01-2023 ALP [Catalytic activity/Vol] 73 U/L 45-117 [facility] ALT [Catalytic activity/Vol] 18 U/L 13-56 [facility] Cholesterol in HDL [Mass/Vol] 36 mg/dL >40 [facility] Comment on above: The drugs N-Acetylcy steine and Metamizole may falsely depress this assay. Reference Range HDL <40 mg/dL Low HDL Cholesterol HDL >or= 60 mg/dL High HDL Cholesterol Cholesterol in LDL [Mass/Vol] 105 mg/dL 0-130 [facility] Globulin (S) [Mass/Vol] 3.7 g/dL 2.2-4.2 [facility] No Panel InformationOrdered By: Adore Miller on 07-01-2023 VLDL Cholesterol 24 mg/dL 5-40 [facility] Thin prep Papanicolaou smear with manual screeningOrdered By: Adoer Miller on 07-01-2023 Thin prep Papanicolaou smear with manual screening 3.5 g/dL 3.2-5.0 [facility] Thin prep Papanicolaou smear with manual screening 15 U/L 15-37 [facility] No Panel Informationon 06-23 Influenza Types A,B Rapid (Clinic) Negative [facility] POC SARS CoV-2 Antigen Negative [facility] GC/CHLAM AMPLIFICATION [CCL] on 12-24-2022 Chlamydia Amplification Negative Normal Negative for Chlamydia tr [facility] Comment on above: Result Comment: SOUR CE: Vaginal [facility] [address] [place] [address] Booker Treviño III, M.D. [id number] Performed By: #### 2 29023 #### [facility],[address] [place] [address] GCAMP Negative Normal Negative for Neisseria go [facility] Comment on above: Performed By: #### 2 36079 #### [facility],[address] [place] [address] US PELVIC (NON OB) LIMITEDon 07-29-2022 US PELVIC (NON OB) LIMITED [place] [address] Patient: BRIA WITT Phone#: : 1985 Age: 37 Gender: F Pt. Type: Out Account: [id number] Location: [facility] Ordering: ABBY BOLDEN Exam Date: 07/29/2022/7:36 Family Phys: ISABEL ROLONKathleen Charge Code: [id number] Physician: Antelope Order #: [id number] Dose#: PROCEDURE: PELVIC (NON OB) LIMITED ULTRASOUND [...] Man MD on 07/29/2022 at 16:40 Normal [facility] MARIBEL BY IFA SCREEN [CCL]on Nuclear Ab IF (S) [Titer] Negative Normal Negative [facility] Comment on above: Result Comment: Anti -nuclear antibody test is used as an aid in diagnosis of systemic autoimmune diseases. Where positive and clinically warranted, follow-up using disease-specific testing is recommended. Low positive titers are not uncommon with advanced age, certain chronic infections, and malignancies among others. Test methodology: Indirect fluorescence immunoassay (IFA) using HEp-2 cells. [place] [id number] Booker Treviño III, M.D. [id number] Performed By: #### 2 25468 #### [place] [id number] CYCLIC CITRULLINATED PEP AB IGG [CCL]on 07-12-2022 CCP ANTIBODY IGGQUALITATIVE Negative Normal Negative [facility] Comment on above: Performed By: #### 2 34280 #### [address] [address] CCP Antibody, IgG <15 Normal <20 [facility] Comment on above: Result Comment: This test is used as aid in diagnosis of Rheumatoid arthritis (RA). A negative result cannot rule out RA where clinically suspected. Clinical correlation is required. The following results were obtained with an [employer]ite CCP IgG DALTON. Cyclic Citrullinated Peptide IgG values obtained with different manufacturers' assay methods may not be used interchangeably. The magnitude of the reported IgG levels cannot be correlated to an endpoint titer. [address] [address] Booker Treviño III, M.D. [id number] Performed By: #### 2 39162 #### [address],[place] [address] HGB A1C [CCL]on 07-12-2022 HbA1c (Bld) [Mass fraction] 5.6 % Normal 4.3-5.6 [facility] Comment on above: Result Comment: Amer [place] Diabetes Association guidelines indicate that patients with HgbA1c in the range 5.7-6.4% are at increased risk for development of diabetes, and intervention by lifestyle modification may be beneficial. HgbA1c greater or equal to 6.5% is considered diagnostic of diabetes. Performed By: #### 2 05654 #### [place] [id number] Hemoglobin A0 114 mg/dL Normal [facility] Comment on above: Result Comment: eAG: (Estimated average glucose) is a calculated value from HgbA1c and is patient relations representative of the average blood glucose level in the last 2-3 month period. [facility] [address] [place] [address] Booker Treviño III, M.D. [id number] Performed By: #### 2 88303 #### [address] [address] RHEUMATOID FACTOR [CCL]on Rheumatoid Factor <10 Normal <16 [facility] Comment on above: Result Comment: [facility] [address] [place] [address] Booker Treviño III, M.D. [id number] Performed By: #### 2 38554 #### [address] [address] C-REACTIVE PROTEINon 023 CRP 0.80 mg/dl Normal 0.00 - 0.90 [facility] Comment on above: Performed By: #### 2 14153 #### [address] [address] CBC + DIFFon 07-09-2022 Baso # 0.00 x10EE3/UL Normal 0.00 - 0.10 [facility] Comment on above: Performed By: #### 2 71498 #### [facility],[address] [place] [address] Basophils/100 WBC (Bld) 0.7 % Normal 0.0 - 2.0 [facility] Comment on above: Performed By: #### 2 59942 #### [facility],[address] [place] [address] CBC + DIFF Normal [facility] Comment on above: Result Comment: CBC- COMPLETE BLOOD COUNT Performed By: #### 2 84513 #### [place] [address] EO # 0.10 x10EE3/UL Normal 0.00 - 0.50 [facility] Comment on above: Performed By: #### 2 52870 #### [place] [address] Eosinophils/100 WBC (Bld) 1.3 % Normal 0.0 - 7.0 [facility] Comment on above: Performed By: #### 2 27798 #### [place] [address] Erythrocyte distribution width (RBC) [Ratio] 14.2 % Normal 12.0 - 15.6 [facility] Comment on above: Performed By: #### 2 34976 #### [place] [address] Hematocrit (Bld) [Volume fraction] 43.0 % Normal 34.0 - 46.0 [facility] Comment on above: Performed By: #### 2 00331 #### [place] [address] Hemoglobin (Bld) [Mass/Vol] 14.0 g/dL Normal 12.0 - 16.0 [facility] Comment on above: Performed By: #### 2 77021 #### [facility],[address] [place] [address] Lymph # 1.70 x10EE3/UL Normal 0.80 - 2.80 [facility] Comment on above: Performed By: #### 2 40679 #### [facility],[address] [place] [address] Lymphocytes/100 WBC (Bld) 26.5 % Normal 20.0 - 45.0 [facility] Comment on above: Performed By: #### 2 66255 #### [facility],[address] [place] [address] MANUAL DIFF N/A Normal [facility] Comment on above: Performed By: #### 2 81260 #### [facility],[address] [place] [address] MCH (RBC) [Entitic mass] 28 pg Normal 27 - 33 [facility] Comment on above: Performed By: #### 2 48066 #### [facility],[address] [place] [address] MCHC 33 X10 3 Normal 32 - 36 [facility] Comment on above: Performed By: #### 2 32560 #### [place] [address] MCV (RBC) [Entitic vol] 86 fL Normal 80 - 99 [facility] Comment on above: Performed By: #### 2 25141 #### [facility],[address] [place] [address] [place] # 0.40 x10EE3/UL Normal 0.20 - 1.00 [facility] Comment on above: Performed By: #### 2 30646 #### [place] [address] MONOS % 6.5 % Normal 0.0 - 10.0 [facility] Comment on above: Performed By: #### 2 64944 #### [facility],[address] [place] [address] Morphology Cale (Bld) [Interp] N/A Normal [facility] Comment on above: Performed By: #### 2 35002 #### [facility],[address] [place] [address] Neut # 4.10 x10EE3/UL Normal 1.50 - 7.10 [facility] Comment on above: Performed By: #### 2 65365 #### [facility],[address] [place] [address] Neutrophils/100 WBC (Bld) 65.0 % Normal 46.0 - 76.0 [facility] Comment on above: Performed By: #### 2 51915 #### [facility],[address] [place] [address] PLATELET 205 x10EE3/UL Normal 150 - 450 [facility] Comment on above: Performed By: #### 2 35442 #### [facility],[address] [place] [address] Platelet mean volume (Bld) [Entitic vol] 9.2 fL Normal 6.6 - 10.5 [facility] Comment on above: Result Comment: AUTO MATED DIFFERENTIAL Performed By: #### 2 90377 #### [facility],[address] [place] [address] RBC 5.01 x 10EE6/UL Normal 4.10 - 5.30 [facility] Comment on above: Performed By: #### 2 68797 #### [facility],[address] [place] [address] WBC 6.3 x 10EE3/UL Normal 4.5 - 10.8 [facility] Comment on above: Performed By: #### 2 55493 #### [facility],[address] [place] [address] CMP with eGFRon 07-09-2022 AGE 37 years Normal [facility] Comment on above: Performed By: #### 2 92054 #### [facility],[address] [place], [place] [address] Albumin [Mass/Vol] 3.8 g/dL Normal 3.4 - 5.0 [facility] Comment on above: Performed By: #### 2 32792 #### [facility],[address] [place] [address] Albumin/Globulin [Mass ratio] 1.0 {ratio} Normal 0.9 - 1.6 [facility] Comment on above: Performed By: #### 2 46139 #### [facility],[address] [place] [address] ALK PHOS 78 U/L Normal 46 - 116 [facility] Comment on above: Performed By: #### 2 51194 #### [facility],[address] [place] [address] ALT [Catalytic activity/Vol] 40 U/L Normal 14 - 59 [facility] Comment on above: Performed By: #### 2 00220 #### [facility],[address] [place] [address] Anion gap [Moles/Vol] 12 mmol/L Normal 10 - 20 [facility] Comment on above: Performed By: #### 2 59802 #### [facility],[address] [place] [address] AST [Catalytic activity/Vol] 24 U/L Normal 13 - 39 [facility] Comment on above: Performed By: #### 2 41651 #### [facility],[address] [place] [address] B/C RATIO 11 ratio Normal 0 - 30 [facility] Comment on above: Performed By: #### 2 25428 #### [facility],[address] [place] [address] Bilirubin [Mass/Vol] 0.4 mg/dL Normal 0.2 - 1.0 [facility] Comment on above: Performed By: #### 2 61034 #### [facility],[address] [place] [address] Calcium [Mass/Vol] 9.2 mg/dL Normal 8.5 - 10.1 [facility] Comment on above: Performed By: #### 2 41244 #### [facility],[address] [place] [address] Chloride [Moles/Vol] 104 mmol/L Normal 98 - 107 [facility] Comment on above: Performed By: #### 2 31472 #### [facility],[address] [place] [address] CMP with eGFR Normal [facility] Comment on above: Result Comment: COMP REHENSIVE METABOLIC PANEL Performed By: #### 2 34288 #### [place] [address] CO2 [Moles/Vol] 30.4 mmol/L Normal 21.0 - 32.0 [facility] Comment on above: Performed By: #### 2 64248 #### [facility],[address] [place] [address] Creatinine [Mass/Vol] 0.74 mg/dL Normal 0.55 - 1.02 [facility] Comment on above: Performed By: #### 2 80276 #### [place] [address] GFR/1.73 sq M.predicted among non-blacks MDRD (S/P/Bld) [Vol rate/Area] mL/min/{1.73_m2} Normal 60 - 999 [facility] Comment on above: Performed By: #### 2 42093 #### [place] [address] Result Comment: ACCO RDING TO THE NATIONAL KIDNEY DISEASE EDUCATION PROGRAM(NKDE), A NORMAL eGFR IS A VALUE GREATER THAN OR EQUAL TO 60 ML/MIN/1.73 SQ METERS. CHRONIC KIDNEY DISEASE: <60mL/MIN/1.73 SQ METERS KIDNEY FAILURE: <15mL/MIN/1.73 SQ METERS THIS TEST SHOULD ONLY BE USED FOR PATIENTS 18 YEARS OF AGE AND OLDER. Globulin (S) [Mass/Vol] 3.7 g/dL Normal 1.5 - 3.8 [facility] Comment on above: Performed By: #### 2 22746 #### [facility],[address] [place] [address] Glucose [Mass/Vol] 115 mg/dL High 74 - 106 [facility] Comment on above: Performed By: #### 2 79056 #### [facility],[address] [place] [address] Potassium [Moles/Vol] 4.1 mmol/L Normal 3.5 - 5.1 [facility] Comment on above: Performed By: #### 2 34522 #### [facility],[address] [place] [address] Protein [Mass/Vol] 7.5 g/dL Normal 6.4 - 8.2 [facility] Comment on above: Performed By: #### 2 03427 #### [facility],[address] [place] [address] Sodium [Moles/Vol] 142 mmol/L Normal 136 - 145 [facility] Comment on above: Performed By: #### 2 80014 #### [facility],[address] [place] [address] Urea nitrogen [Mass/Vol] 8 mg/dL Normal 7 - 18 [facility] Comment on above: Performed By: #### 2 46252 #### [facility],[address] [place] [address] KNEE COMPLETE LT MIN 4 VIEWS on 07-09-2022 KNEE COMPLETE LT MIN 4 VIEWS [place] [address] Patient: BRIA WITT Phone#: : 1985 Age: 37 Gender: F Pt. Type: Out Account: [id number] Location: [facility] Ordering: ISABEL RITCHIE Exam Date: 07/09/2022/7:27 Family Phys: Charge Code: [id number] Physician: Antelope Order #: [id number] Dose#: PROCEDURE: X-RAY KNEE LT COMPLETE 4 [...] Nunez MD on 07/09/2022 at 8:34 Normal [facility] SEDRATEon 07-09-2022 SEDRATE 18 mm/hr Normal 0 - 30 [facility] Comment on above: Performed By: #### 2 51066 #### [facility],[address] [place] [address] T4-FREE (FREE THYROXINE)on 0 07-09-2022 Free T4 [Mass/Vol] 0.76 ng/dL Normal 0.76 - 1.46 [facility] Comment on above: Result Comment: P otential of falsely elevated results when biotin concentrations are > 10 ng/mL. Performed By: #### 2 79308 #### [facility],[address] [place], [place] [address] TSHon 07-09-2022 TSH Qn 1.15 m[IU]/L Normal 0.35 - 3.74 [facility] Comment on above: Performed By: #### 2 93584 #### [facility],[address] [place] [address] URIC ACIDon 07-09-2022 Urate [Mass/Vol] 4.6 mg/dL Normal 2.6 - 6.0 [facility] Comment on above: Performed By: #### 2 46899 #### [facility],[address] [place] [address] MRI SHOULDER WO IVCON RTon 0 05-11-2022 [facility] EMERGENCY REPORTon 2 EMERGENCY REPORT [facility] EMERGENCY ROOM REPORT NAME ACCOUNT SEX AGE ADMIT DISCHARGE PT MED. RECORD# NUMBER DATE DATE TYPE LLOYD [id number] F 36 03/23/22 03/23/22 3 BRIA [id number] ROOM: ER DATE OF : 1985 DICTATING [...] for pain, sling, and follow up with [facility] this week. Dictated By: Adore Gao MD 03/23/22 18:25 JOB #: [id number] Transcribed By: cachorro 03/25/22 06:55 Electronically signed by: Adore Gao M.D. 04/13/22 08:29 Page 1 of 1 BRIA WITT Emergency Room Report Normal [facility] EMERGENCY REPORT [facility] EMERGENCY ROOM REPORT NAME ACCOUNT SEX AGE ADMIT DISCHARGE PT MED. RECORD# NUMBER DATE DATE TYPE LLOYD [id number] F 36 03/23/22 03/23/22 3 BRIA [id number] ROOM: ER DATE OF : 1985 DICTATING [...] Adore Gao MD 03/23/22 17:12 JOB #: [id number] Transcribed By: am 03/25/22 06:38 Electronically signed by: Adore Gao M.D. 04/13/22 08:29 Page 2 of 2 BRIA WITT Emergency Room Report Normal [facility] HUMERUS RTon 03-23-2022 HUMERUS [place] [address] Patient: BRIA WITT Phone#: : 1985 Age: 36 Gender: F Pt. Type: ER Account: [id number] Location: 052 Ordering: DR. ADORE GAO Exam Date: 03/23/2022/17:35 Family Phys: Charge Code: [id number] Physician: Antelope Order #: [id number] Dose#: PROCEDURE: X-RAY HUMERUS RT MIN 2 VIEWS COMPARISON: None. INDICATIONS: Trauma. FINDINGS: BONES: Normal. No significant arthropathy or acute abnormality. SOFT TISSUES: Negative. No visible soft tissue swelling. EFFUSION: None visible. OTHER: Negative. CONCLUSION: No acute disease. Dictated by: Zunilda Man MD on 03/23/2022 at 17:57 Approved by: Zunilda Man MD on 03/23/2022 at 17:58 Normal [facility] SHOULDER COMPLETE RTon 03-23 SHOULDER COMPLETE RT [place] [address] Patient: BRIA WITT Phone#: : 1985 Age: 36 Gender: F Pt. Type: ER Account: [id number] Location: 052 Ordering: DR. ADORE GAO Exam Date: 03/23/2022/17:40 Family Phys: Charge Code: [id number] Physician: Antelope Order #: [id number] Dose#: PROCEDURE: X-RAY SHOULDER COMPLETE RT MIN 2 VIEWS COMPARISON: None. INDICATIONS: Trauma. FINDINGS: BONES: Surgical artifact is present overlying the proximal humeral shaft. SOFT TISSUES: Negative. No visible soft tissue swelling. EFFUSION: None visible. OTHER: Negative. CONCLUSION: No acute disease. Dictated by: Zunilda Man MD on 03/23/2022 at 17:58 Approved by: Zunilda Man MD on 03/23/2022 at 17:59 Normal [facility] Basic metabolic 2000 panelon 03-12-2022 Anion gap [Moles/Vol] 8 mmol/L Low 9 - 18 mmol/L [facility] Calcium [Mass/Vol] 9.4 mg/dL 8.5 - 10. 2 mg/dL [facility] Chloride [Moles/Vol] 102 mmol/L 97 - 105 mmol/L [facility] CO2 [Moles/Vol] 26 mmol/L 22 - 30 mmol/L [facility] Creatinine [Mass/Vol] 0.58 mg/dL 0.58 - 0.96 mg/dL [facility] Estimated Glomerular Filtration Rate 119 mL/min/1.73m >=60 mL/min/1.73m [facility] Glucose [Mass/Vol] 94 mg/dL 74 - 99 mg/dL [facility] Potassium [Moles/Vol] 4.2 mmol/L 3.7 - 5.1 mmol/L [facility] Sodium [Moles/Vol] 136 mmol/L 136 - 144 mmol/L [facility] Urea nitrogen [Mass/Vol] 9 mg/dL 7 - 21 mg/dL [facility] ECG COMPLETEon 01-19-2022 Atrial Rate 65 BPM [facility] Calculated P Tillman 49 degrees [facility] Calculated R Tillman 8 degrees [facility] Calculated T Tillman -11 degrees [facility] P-R Interval 154 ms [facility] QRS Duration 88 ms [facility] QT Interval 376 ms [facility] QTC Calculation (Bazett) 391 ms [facility] Ventricular Rate [address] [facility] XR ELBOW SPECIAL VIEWS AP/LA T/OTHER LEFTon 12-04-2021 [facility] XR Elbow - left AP and Later al and obliqueon 12-04-2021 IMPRESSION: No acute fracture or dislocation of the left elbow Staff Nurse Anesthetist: EDWARD Transcribe Date/Time: Dec 04 2021 8:28A [...] fracture or dislocation of the left elbow Staff Nurse Anesthetist: EDWARD Transcribe Date/Time: Dec 04 2021 8:28A Dictated by : ANNA OTTO MD This examination was interpreted and the report reviewed and electronically signed by: ANNA OTTO MD on Dec 04 2021 8:29AM EST [facility] Radiology Study observation (narrative) [facility] XR Elbow - left AP and Later al and obliqueOrdered By: Ccf Provider on 12-04-2021 [facility] Absolute lymphocyte counton 11-16-2021 Lymphocytes Auto (Unsp spec) [#/Vol] 2.53 10*3/uL 0.83-4.51 [facility] Work Phone: Basophil percentageon 2021 Bilirubin [Mass/Vol] 0.30 mg/dL 0.20-1.00 [facility] Work Phone: Comment on above: For patients on eltr ombopag therapy, use of Dimension [place] TBIL is not recommended. Cholesterol [Mass/Vol] 199 mg/dL <200 [facility] Work Phone: Comment on above: <200 mg/dL Desirable 200-240 mg/dL Borderline >240 mg/dL High Risk Protein [Mass/Vol] 7.1 g/dL 6.4-8.2 [facility] Work Phone: Triglyceride [Mass/Vol] 148 mg/dL <199 [facility] Work Phone: Comment on above: The drugs N-Acetylcy steine and Metamizole may falsely depress this assay.Serum Triglycerides Reference Interval Normal <150 mg/dL Borderline high 150 - 199 mg/dL High 200 - 499 mg/dL Very High > or = 500 mg/dL Basophils/100 WBC (Bld) 0.7 % 0-1 [facility] Work Phone: Eosinophils/100 WBC (Bld) 0.9 % 0-5 [facility] Work Phone: Neutrophils (Bld) [#/Vol] 3.6 10*3/uL 2.0-7.7 [facility] Work Phone: Neutrophils/100 WBC (Bld) 54.6 % 47-70 [facility] Work Phone: WBC (Bld) [#/Vol] 6.7 10*3/uL 4.4-11.0 [facility] Work Phone: [phone] Blood erythrocytes count (nu mber/volume)on 11-16-2021 RBC (Bld) [#/Vol] 4.89 10*6/uL 4.2-5.4 [facility] Work Phone: [phone] Blood hemoglobin measurement (mass/volume)on 11-16-2021 Hemoglobin (Bld) [Mass/Vol] 14.0 g/dL 12.0-15.0 [facility] Work Phone: Blood lymphocytes/100 leukoc yteson 11-16-2021 Lymphocytes/100 WBC (Bld) 37.9 % 19-41 [facility] Work Phone: Blood monocytes/100 leukocyt eson 11-16-2021 Monocytes/100 WBC (Bld) 5.5 % 0-10 [facility] Work Phone: Blood platelet mean volumeon 11-16-2021 Platelet mean volume (Bld) [Entitic vol] 11.2 fL 6.2-12.0 [facility] Work Phone: Determination of erythrocyte mean corpuscular volume (MCV)on 11-16-2021 MCV (RBC) [Entitic vol] 88.8 fL 81-99 [facility] Work Phone: [phone] Direct bilirubinon Bilirubin.direct [Mass/Vol] 0.08 mg/dL 0.00-0.30 [facility] Work Phone: Hematocrit Auto (Bld) [Volum e fraction]on 11-16-2021 Hematocrit (Bld) [Volume fraction] 43.4 % 37-47 [facility] Work Phone: [phone] Laboratory - Chemistry and C hemistry - challengeon 11-16-2021 ALP [Catalytic activity/Vol] 65 U/L 45-117 [facility] Work Phone: [phone] ALT [Catalytic activity/Vol] 24 U/L 13-56 [facility] Work Phone: [phone] Globulin (S) [Mass/Vol] 3.6 g/dL 2.2-4.2 [facility] Work Phone: [phone] Laboratory - Hematology and Cell countson 11-16-2021 Erythrocyte distribution width (RBC) [Entitic vol] 44.2 fL 35.1-43.9 [facility] Work Phone: [phone] Erythrocyte distribution width (RBC) [Ratio] 13.5 % 11.6-14.6 [facility] Work Phone: [phone] Immature granulocytes/100 WBC (Bld) 0.400 % 0.0-0.9 [facility] Work Phone: Comment on above: IG% - Immature Granu locytes (promyelocytes, myelocytes and metamyelocytes) > 1% indicates that a LEFT SHIFT is Present. MCH (RBC) [Entitic mass] 28.6 pg 27.0-32.0 [facility] Work Phone: [phone] Nucleated RBC/100 WBC (Bld) [Ratio] 0 % 0-5 [facility] Work Phone: [phone] MCHC Auto (RBC) [Mass/Vol]on 11-16-2021 MCHC (RBC) [Mass/Vol] 32.3 g/dL 32-36 [facility] Work Phone: Platelets bldon 11-16-2021 Platelets (Bld) [#/Vol] 201 10*3/uL 150-450 [facility] Work Phone: Serum or plasma C reactive p rotein measurement (mass/volume)on 11-16-2021 CRP [Mass/Vol] 7.27 mg/L 0.0-3.0 [facility] Work Phone: Comment on above: C-Reactive Protein ( CRP) provides useful information for thediagnosis, therapy and monitoring of inflammatory processesand associated diseases. For the evaluation of Relative Riskfor Cardiovascular Disease, a High Sensitivity CRP (HSCRP)should be ordered. Serum or plasma albumin hunter urement (mass/volume)on 11-16-2021 Albumin [Mass/Vol] 3.5 g/dL 3.2-5.0 [facility] Work Phone: Serum or plasma cholesterol in HDL measurement (mass/volume)on 11-16-2021 Cholesterol in HDL [Mass/Vol] 32 mg/dL >40 [facility] Work Phone: Comment on above: The drugs N-Acetylcy steine and Metamizole may falsely depress this assay. Reference Range HDL <40 mg/dL Low HDL Cholesterol HDL >or= 60 mg/dL High HDL Cholesterol Serum or plasma cholesterol in VLDL measurement (mass/volume)on 11-16-2021 Cholesterol in VLDL [Mass/Vol] 30 mg/dL 5-40 [facility] Work Phone: Serum or plasma low density lipoprotein (LDL) cholesterol measurement (mass/volume)on 11-16-2021 Cholesterol in LDL [Mass/Vol] 137 mg/dL 0-130 [facility] Work Phone: Thin prep Papanicolaou smear with manual screeningon 11-16-2021 Thin prep Papanicolaou smear with manual screening 12 U/L 15-37 [facility] Work Phone: Absolute lymphocyte counton 09-11-2021 Lymphocytes Auto (Unsp spec) [#/Vol] 4.66 10*3/uL 0.83-4.51 [facility] Work Phone: Basophil percentageon 2021 Basophils/100 WBC (Bld) 0.5 % 0-1 [facility] Work Phone: Chloride [Moles/Vol] 103 mmol/L 98-107 [facility] Work Phone: Eosinophils/100 WBC (Bld) 1.2 % 0-5 [facility] Work Phone: Glucose [Mass/Vol] 97 mg/dL 74-106 [facility] Work Phone: Neutrophils (Bld) [#/Vol] 6.6 10*3/uL 2.0-7.7 [facility] System Work Phone: Neutrophils/100 WBC (Bld) 53.5 % 47-70 [facility] Work Phone: Potassium [Moles/Vol] 3.6 mmol/L 3.5-5.1 [facility] Work Phone: Sodium [Moles/Vol] 137 mmol/L 136-145 [facility] Work Phone: WBC (Bld) [#/Vol] 12.3 10*3/uL 4.4-11.0 [facility] Work Phone: [phone] Blood erythrocytes count (nu mber/volume)on 09-11-2021 RBC (Bld) [#/Vol] 5.35 10*6/uL 4.2-5.4 [facility] Work Phone: Blood hemoglobin measurement (mass/volume)on 09-11-2021 Hemoglobin (Bld) [Mass/Vol] 15.1 g/dL 12.0-15.0 [facility] Work Phone: Blood lymphocytes/100 leukoc yteson 09-11-2021 Lymphocytes/100 WBC (Bld) 37.9 % 19-41 [facility] Work Phone: Blood manual differential co mment interpretation (narrative result)on 09-11-2021 Manual differential comment Cale (Bld) [Interp] SCANNED [facility] Work Phone: Blood monocytes/100 leukocyt eson 09-11-2021 Monocytes/100 WBC (Bld) 6.3 % 0-10 [facility] Work Phone: Blood platelet mean volumeon 09-11-2021 Platelet mean volume (Bld) [Entitic vol] 11.1 fL 6.2-12.0 [facility] Work Phone: Determination of erythrocyte mean corpuscular volume (MCV)on 09-11-2021 MCV (RBC) [Entitic vol] 87.1 fL 81-99 [facility] Work Phone: Hematocrit Auto (Bld) [Volum e fraction]on 09-11-2021 Hematocrit (Bld) [Volume fraction] 46.6 % 37-47 [facility] Work Phone: [phone] Laboratory - Chemistry and C hemistry - challengeon 09-11-2021 CO2 [Moles/Vol] 28.0 mmol/L 21.0-32.0 [facility] Work Phone: Magnesium [Mass/Vol] 2.2 mg/dL 1.6-2.6 [facility] Work Phone: Urea nitrogen/Creatinine [Mass ratio] 14.2 mg/mg 10-20 [facility] Work Phone: Laboratory - Hematology and Cell countson 09-11-2021 Erythrocyte distribution width (RBC) [Entitic vol] 43.4 fL 35.1-43.9 [facility] Work Phone: Erythrocyte distribution width (RBC) [Ratio] 13.5 % 11.6-14.6 [facility] Work Phone: Immature granulocytes/100 WBC (Bld) 0.600 % 0.0-0.9 [facility] Work Phone: Comment on above: IG% - Immature Granu locytes (promyelocytes, myelocytes and metamyelocytes) > 1% indicates that a LEFT SHIFT is Present. MCH (RBC) [Entitic mass] 28.2 pg 27.0-32.0 [facility] Work Phone: Nucleated RBC/100 WBC (Bld) [Ratio] 0 % 0-5 [facility] Work Phone: MCHC Auto (RBC) [Mass/Vol]on 09-11-2021 MCHC (RBC) [Mass/Vol] 32.4 g/dL 32-36 [facility] Work Phone: No Panel Informationon 09-11 Atypical Lymphocytes 1+ % [facility] Work Phone: Estimated Creatinine Clearance Calc 96.67 ml/min [facility] Work Phone: Estimated GFR (MDRD) Amer 119 mL/min >60 [facility] Work Phone: Comment on above: GFR Calc Estimated GFR (MDRD) Non-Af Amer 99 mL/min >60 [facility] Work Phone: Comment on above: Non- GFR Calc Troponin I High Sensitivity < 3 pg/mL 3.0-54.0 [facility] Work Phone: Comment on above: Please Note: New Mary t Units and Gender Specific Reference Ranges. For more information see Policy Stat Procedure [place] High Sensitivity Troponin (TNIH) and attachments. Platelets bldon 09-11-2021 Platelets (Bld) [#/Vol] 221 10*3/uL 150-450 [facility] Work Phone: Serum or plasma calcium hunter urement (mass/volume)on 09-11-2021 Calcium [Mass/Vol] 9.6 mg/dL 8.5-10.1 [facility] Work Phone: Serum or plasma choriogonado tropin detectionon 09-11-2021 HCG ( test) Ql < 1 mIU/mL <4 [facility] Work Phone: Comment on above: hCG levels with Gest ational AgeGestational Age hCG mIU/mL (IU/L)0.2 - 1 week 5 - 501-2 weeks 50 - 5002-3 weeks 100 - 01871-0 weeks 500 - 106183-5 weeks 1000 - 040596-1 weeks 25809 - 100,0006-8 weeks 44875 - 200,0002-3 months 08261 - 100,000 Serum or plasma creatinine m easurement (mass/volume)on 09-11-2021 Creatinine [Mass/Vol] 0.71 mg/dL 0.55-1.02 [facility] Work Phone: Comment on above: The validity of the calculated GFR & GFRAA in patients over 70 years has not been determined. Clinical correlation is essential. Serum or plasma urea nitroge n measurement (mass/volume)on 09-11-2021 Urea nitrogen [Mass/Vol] 10 mg/dL 7-18 [facility] Work Phone: Thin prep Papanicolaou smear with manual screeningon 09-11-2021 Thin prep Papanicolaou smear with manual screening 6 5-15 [facility] Work Phone: No Panel Informationon 05-29 POC SARS CoV-2 Antigen Negative [facility] Work Phone: XR UPPER GI W SMALL [...] The remainder the small bowel is unremarkable Staff Nurse Anesthetist: EDWARD Transcribe Date/Time: Nov 07 2019 12:29P Dictated by : RUDDY HUSSEIN DO This examination was interpreted and the report reviewed and electronically signed by: RUDDY HUSSEIN DO on Nov 07 2019 12:31PM EST [id number] Normal [facility] Clonazepam / Met, Uron 08-04 7-Amino Clonaz Metab 87 Normal [facility] Reference Lab Comment on above: Performed By: #### U TOX2 #### [facility] Routine Lab [address] [address] #### UBENZC #### [facility] Chemistry [address] [address] #### UCLONO #### [facility] Reference [address] [address] Clonazepam, Urine 17 Normal [facility] Reference Lab Comment on above: Performed By: #### U TOX2 #### [facility] Routine Lab [address] [address] #### UBENZC #### [facility] Chemistry [address] [address] #### UCLONO #### [facility] Reference [address] [place], [place] [address] Benzo Confirm, Urineon 08-02 7aminoclonazepam, Ur 189 ng/mL High <40 [facility] Reference Lab Comment on above: Performed By: #### U TOX2 #### [facility] Routine Lab [address] [place], [place] [address] #### UBENZC #### [facility] Laboratories Chemistry [address] [address] #### UCLONO #### [facility] Reference [address] [place], [place] [address] Alpha hydroxyalp, Ur <60 Normal <60 [facility] Reference Lab Comment on above: Performed By: #### U TOX2 #### [facility] Routine Lab [address] [phone] #### UBENZC #### [facility] Chemistry [address] [place], [place] [phone] #### UCLONO #### [facility] Laboratories Reference [address] [place], [place] [phone] Alpha hydroxytri, Ur <40 Normal <40 [facility] Reference Lab Comment on above: Performed By: #### U TOX2 #### [facility] Routine Lab [address] [place] [phone] #### UBENZC #### [facility] Chemistry [address] [place] [phone] #### UCLONO #### [facility] Reference [address] [place] [address] Benzo Confirm, Note Normal [facility] Reference Lab Comment on above: Result Comment: This test is This test was developed and its performance characteristics determined by [facility] [place] ([facility] It has not been cleared or approved by the FDA. [facility] is regulated under CLIA as qualified to perform high-complexity testing. This test is used for clinical purposes. It should not be regarded as investigational or for research. for Medical use This test was developed and its performance characteristics determined by [facility] Pathology and [facility] [place] ([facility]). It has not been cleared or approved by the FDA. [facility] is regulated under CLIA as qualified to perform high-complexity testing. This test is used for clinical purposes. It should not be regarded as investigational or for research. only. This test was developed and its performance characteristics determined by [facility] and Laboratory [facility] [place] ([facility]). It has not been cleared or approved by the FDA. [facility] is regulated under CLIA as qualified to perform high-complexity testing. This test is used for clinical purposes. It should not be regarded as investigational or for research. Performed By: #### U TOX2 #### [facility] Routine Lab [address] [place], [place] [address] #### UBENZC #### [facility] Chemistry [address] [place], [place] [address] #### UCLONO #### [facility] Reference [address] [place], [place] [address] Lorazepam, Urine <40 Normal <40 [facility] Reference Lab Comment on above: Performed By: #### U TOX2 #### [facility] Routine Lab [address] [place], [place] [address] [phone] #### UBENZC #### [facility] Chemistry [address] [place], [place] [address] #### UCLONO #### [facility] Reference [address] [place], [place] [address] Nordiazepam, Urine <40 Normal <40 [facility] Reference Lab Comment on above: Performed By: #### U TOX2 #### [facility] Routine Lab [address] [place], [place] [address] #### UBENZC #### [facility] Chemistry [address] [place], [place] [address] #### UCLONO #### [facility] Reference [address] [place], [place] [address] Oxazepam, Urine <40 Normal <40 [facility] Reference Lab Comment on above: Performed By: #### U TOX2 #### [facility] Routine Lab [address] [place], [place] [address] #### UBENZC #### [facility] Chemistry [address] [address] #### UCLONO #### [facility] Reference [address] [place], [place] [id number] Temazepam, Urine <40 Normal <40 [facility] Reference Lab Comment on above: Performed By: #### U TOX2 #### [facility] Routine Lab [address] [place], [place] [address] #### UBENZC #### [facility] Chemistry [address] [place] [address] #### UCLONO #### [facility] Reference [address] [place], [place] [address] Benzo Confirm, Urineon 07-26 CHROMATE,URINE <10 Normal <50 [facility] Reference Lab Comment on above: Performed By: #### U TOX2 #### [facility] Routine Lab [address] [place], [place] [address] #### UBENZC #### [facility] Chemistry [address] [place], [place] [address] #### UCLONO #### [facility] Reference [address] [place], [place] [address] CREATININE,URINE 149.9 mg/dL Normal 42.2-237.9 [facility] Reference Lab Comment on above: Performed By: #### U TOX2 #### [facility] Routine Lab [address] [place], [place] [address] #### UBENZC #### [facility] Chemistry [address] [place], [place] [address] #### UCLONO #### [facility] Reference [address] [place], [place] [address] NITRITES,URINE 75 mg/L High <51 [facility] Reference Lab Comment on above: Performed By: #### U TOX2 #### [facility] Routine Lab [address] [place], [place] [address] #### UBENZC #### [facility] Chemistry [address] [place], [place] [id number] #### UCLONO #### [facility] Reference [address] [place], [place] [address] OXIDANTS,URINE 157 mg/L Normal <200 [facility] Reference Lab Comment on above: Performed By: #### U TOX2 #### [facility] Routine Lab [address] [place], [place] [id number] #### UBENZC #### [facility] Chemistry [address] [place], [place] [address] #### UCLONO #### [facility] Reference [address] [place], [place] [id number] pH (U) 6.6 [pH] Normal 4.5-8.0 [facility] Reference Lab Comment on above: Performed By: #### U TOX2 #### [facility] Routine Lab [address] [place], [place] [id number] #### UBENZC #### [facility] Chemistry [address] [place], [place] [address] #### UCLONO #### [facility] Reference [address] [place], [place] [id number] QUALITY,URINE NOADUL Normal [facility] Reference Lab Comment on above: Performed By: #### U TOX2 #### [facility] Routine Lab [address] [place], [place] [address] #### UBENZC #### [facility] Chemistry [address] [place], [place] [address] #### UCLONO #### [facility] Reference [address] [place], [place] [id number] SPEC GRAVITY,UR 1.018 Normal 1.002-1.030 [facility] Reference Lab Comment on above: Performed By: #### U TOX2 #### [facility] Routine Lab [address] [place], [place] [address] #### UBENZC #### [facility] Chemistry [address] [place], [place] [address] #### UCLONO #### [facility] Reference [address] [place], [place] [address] Toxicology Screen,Uron 07-26 Amphetamines, Urine Negative Normal Negative [facility] Reference Lab Comment on above: Performed By: #### U TOX2 #### [facility] Routine Lab [address] [place], [place] [address] #### UBENZC #### [facility] Chemistry [address] [place], [place] [address] #### UCLONO #### [facility] Reference [address] [place], [place] [address] Barbiturates, Urine Negative Normal Negative [facility] Reference Lab Comment on above: Performed By: #### U TOX2 #### [facility] Routine Lab [address] [place], [place] [address] #### UBENZC #### [facility] Chemistry [address] [place], [place] [address] #### UCLONO #### [facility] Reference [address] [place], [place] [address] Benzodiazepines, Ur Abnormal Negative [facility] Reference Lab Comment on above: Result Comment: Prel iminary Cutoff threshold at 200 ng/mL. positive. Cutoff threshold at 200 ng/mL. Performed By: #### U TOX2 #### [facility] Routine Lab [address] [place], [place] [address] #### UBENZC #### [facility] Chemistry [address] [place], [place] [address] #### UCLONO #### [facility] Reference [address] [place], [place] [address] Cannabinoids, Urine Negative Normal Negative [facility] Reference Lab Comment on above: Performed By: #### U TOX2 #### [facility] Routine Lab [address] [place], [place] [address] #### UBENZC #### [facility] Chemistry [address] [place] [address] #### UCLONO #### [facility] Reference [address] [place], [place] [address] Cocaine, Urine Negative Normal Negative [facility] Reference Lab Comment on above: Performed By: #### U TOX2 #### [facility] Routine Lab [address] [place], [place] [address] #### UBENZC #### [facility] Chemistry [address] [place], [place] [address] #### UCLONO #### [facility] Reference [address] [place], [place] [address] Ethanol, Urine <11 Normal <11 [facility] Reference Lab Comment on above: Performed By: #### U TOX2 #### [facility] Routine Lab [address] [place], [place] [address] #### UBENZC #### [facility] Chemistry [address] [place], [place] [address] #### UCLONO #### [facility] Reference [address] [place], [place] [address] Opiates, Urine Negative Normal Negative [facility] Reference Lab Comment on above: Performed By: #### U TOX2 #### [facility] Routine Lab [address] [place], [place] [address] #### UBENZC #### [facility] Chemistry [address] [place], [place] [address] #### UCLONO #### [facility] Reference [address] [place], [place] [address] Oxycodone, Urine Negative Normal Negative [facility] Reference Lab Comment on above: Performed By: #### U TOX2 #### [facility] Routine Lab [address] [place], [place] [address] #### UBENZC #### [facility] Chemistry [address] [place], [place] [address] #### UCLONO #### [facility] Reference [address] [place], [place] [address] Phencyclidine, Urine Negative Normal Negative [facility] Reference Lab Comment on above: Performed By: #### U TOX2 #### [facility] Routine Lab [address] [place] [address] #### UBENZC #### [facility] Chemistry [address] [place], [place] [address] #### UCLONO #### [facility] Reference [address] [place], [place] [id number] No Panel Information [facility] Vital Signs Date Time Vital Sign Value Performing Clinician Facility 12-16-2024 11:290400 Body temperature 97.9 [degF] Dr. Koki Worthington MD Work Phone: [facility] 12-16-2024 11:29-0400 Diastolic blood pressure 82 mm[Hg] Dr. Koki Worthington MD Work Phone: [facility] 12-16-2024 11:29-0400 Heart rate 77 /min Dr. Koki Worthington MD Work Phone: [facility] 12-16-2024 11:29-0400 Respiratory rate 16 /min Dr. Koki Worthington MD Work Phone: [facility] 12-16-2024 11:29-0400 SaO2% (BldA) [Mass fraction] 100 % Dr. Koki Worthington MD Work Phone: [facility] 12-16-2024 11:29-0400 Systolic blood pressure 120 mm[Hg] Dr. Koki Worthington MD Work Phone: [facility] 12-16-2024 11:12-0400 Body height 165.[address] Koki Worthington MD Work Phone: [facility] 12-16-2024 11:12-0400 Body mass index (BMI) [Ratio] 36.9 kg/m2 Dr. Koki Worthington MD Work Phone: [facility] 12-16-2024 11:12-0400 Body weight 100.[address] Koki Worthington MD Work Phone: [facility] 11-08-2024 14:15-0400 Body mass index (BMI) [Ratio] 35.94 kg/m2 Clifton Schneider MD Work Phone: [facility] 11-08-2024 14:15-0400 Body weight 97.98 kg Clifton Schneider MD Work Phone: [facility] 11-08-2024 14:15-0400 Diastolic blood pressure 80 mm[Hg] Clifton Schneider MD Work Phone: [facility] 11-08-2024 14:15-0400 Heart rate 83 /min Clifton Schneider MD Work Phone: [facility] 11-08-2024 14:15-0400 SaO2% (BldA) [Mass fraction] 98 % Clifton Schneider MD Work Phone: [facility] 11-08-2024 14:15-0400 Systolic blood pressure 116 mm[Hg] Clifton Schneider MD Work Phone: [facility] 11-05-2024 08:23-0400 Body mass index (BMI) [Ratio] 36.71 kg/m2 Koki Worthington MD Work Phone: [facility] 11-05-2024 08:23-0400 Body weight 100.06 kg Koki Worthington MD Work Phone: [facility] 11-05-2024 08:23-0400 Diastolic blood pressure 63 mm[Hg] Koki Worthington MD Work Phone: [facility] Comment on above: bp machine 11-05-2024 08:23-0400 Heart rate 61 /min Koki Worthington MD Work Phone: [phone] [place] [address] 11-05-2024 08:23-0400 SaO2% (BldA) [Mass fraction] 98 % Koki Worthington MD Work Phone: [phone])[phone] [place] [address] 11-05-2024 08:23-0400 Systolic blood pressure 108 mm[Hg] Koki Worthington MD Work Phone: [phone])746-920880 [place] [address] Comment on above: bp machine 10-19-2024 10:31-0400 Body height 165.[address] Koki Worthington MD Work Phone: [phone])874-875496 [place] [address] 10-19-2024 10:31-0400 Body mass index (BMI) [Ratio] 36.9 kg/m2 Dr. Koki Worthington MD Work Phone: [phone])[phone] [place] [address] 10-19-2024 10:31-0400 Body weight 100.[address] Koki Worthington MD Work Phone: 8(574)075-712296 [place] [address] 10-19-2024 10:31-0400 Diastolic blood pressure 79 mm[Hg] Dr. Koki Worthington MD Work Phone: [phone])963-490196 [place] [address] 10-19-2024 10:31-0400 Heart rate 60 /min Dr. Koki Worthingotn MD Work Phone: 1(632)208-409996 [place] [address] 10-19-2024 10:31-0400 Respiratory rate 16 /min Dr. Koki Worthington MD Work Phone: [phone])[phone] [place] [address] 10-19-2024 10:31-0400 Systolic blood pressure 126 mm[Hg] Dr. Koki Worthington MD Work Phone: [phone] [place] [address] 09-06-2024 08:22-0400 Body mass index (BMI) [Ratio] 36.61 kg/m2 Briana Older TOOLS PROGRAMMER.MEDIA RELATIONS DIRECTOR Work Phone: [facility] 09-06-2024 08:22-0400 Body weight 99.79 kg Briana Older TOOLS PROGRAMMER.MEDIA RELATIONS DIRECTOR Work Phone: [facility] 09-06-2024 08:22-0400 Diastolic blood pressure 68 mm[Hg] Briana Older TOOLS PROGRAMMER.MEDIA RELATIONS DIRECTOR Work Phone: [facility] 09-06-2024 08:22-0400 Heart rate 78 /min Briana Older TOOLS PROGRAMMER.MEDIA RELATIONS DIRECTOR Work Phone: [facility] 09-06-2024 08:22-0400 Respiratory rate 16 /min Briana Older TOOLS PROGRAMMER.MEDIA RELATIONS DIRECTOR Work Phone: [facility] 09-06-2024 08:22-0400 SaO2% (BldA) [Mass fraction] 98 % Briana Older TOOLS PROGRAMMER.MEDIA RELATIONS DIRECTOR Work Phone: [facility] 09-06-2024 08:22-0400 Systolic blood pressure 124 mm[Hg] Briana Older TOOLS PROGRAMMER.MEDIA RELATIONS DIRECTOR Work Phone: [facility] 08-02-2024 14:08-0400 Body mass index (BMI) [Ratio] 36.44 kg/m2 Briana Older TOOLS PROGRAMMER.MEDIA RELATIONS DIRECTOR Work Phone: [facility] 08-02-2024 14:08-0400 Body temperature 98.01 [degF] Briana Older TOOLS PROGRAMMER.MEDIA RELATIONS DIRECTOR Work Phone: [facility] 08-02-2024 14:08-0400 Body weight 99.34 kg Briana Older TOOLS PROGRAMMER.MEDIA RELATIONS DIRECTOR Work Phone: [facility] 08-02-2024 14:08-0400 Diastolic blood pressure 64 mm[Hg] Briana Older TOOLS PROGRAMMER.MEDIA RELATIONS DIRECTOR Work Phone: [facility] 08-02-2024 14:08-0400 Heart rate 76 /min Briana Older TOOLS PROGRAMMER.MEDIA RELATIONS DIRECTOR Work Phone: [facility] 08-02-2024 14:08-0400 Respiratory rate 16 /min Briana Older TOOLS PROGRAMMER.MEDIA RELATIONS DIRECTOR Work Phone: [facility] 08-02-2024 14:08-0400 SaO2% (BldA) [Mass fraction] 97 % Briana Older TOOLS PROGRAMMER.MEDIA RELATIONS DIRECTOR Work Phone: [facility] 08-02-2024 14:08-0400 Systolic blood pressure 108 mm[Hg] Briana Older TOOLS PROGRAMMER.MEDIA RELATIONS DIRECTOR Work Phone: [facility] 07-23-2024 10:16-0400 Body mass index (BMI) [Ratio] 36.28 kg/m2 Briana Older TOOLS PROGRAMMER.MEDIA RELATIONS DIRECTOR Work Phone: [facility] 07-23-2024 10:16-0400 Body temperature 99.19 [degF] Briana Older TOOLS PROGRAMMER.MEDIA RELATIONS DIRECTOR Work Phone: [facility] 07-23-2024 10:16-0400 Body weight 98.88 kg Briana Older TOOLS PROGRAMMER.MEDIA RELATIONS DIRECTOR Work Phone: [facility] 07-23-2024 10:16-0400 Diastolic blood pressure 78 mm[Hg] Briana Older TOOLS PROGRAMMER.MEDIA RELATIONS DIRECTOR Work Phone: [facility] 07-23-2024 10:16-0400 Heart rate 68 /min Briana Older TOOLS PROGRAMMER.MEDIA RELATIONS DIRECTOR Work Phone: [facility] 07-23-2024 10:16-0400 Respiratory rate 16 /min Briana Older TOOLS PROGRAMMER.MEDIA RELATIONS DIRECTOR Work Phone: [facility] 07-23-2024 10:16-0400 SaO2% (BldA) [Mass fraction] 98 % Briana Older TOOLS PROGRAMMER.MEDIA RELATIONS DIRECTOR Work Phone: [facility] 07-23-2024 10:16-0400 Systolic blood pressure 117 mm[Hg] Briana Older TOOLS PROGRAMMER.MEDIA RELATIONS DIRECTOR Work Phone: [facility] 07-15-2024 14:19-0400 Body mass index (BMI) [Ratio] 37.31 kg/m2 Kole DE LA GARZA Work Phone: [facility] 07-15-2024 14:190400 Body temperature 100.2 [degF] Krislyn Aberegg PA Work Phone: [facility] 07-15-2024 14:190400 Body weight 101.7 kg Krislyn Aberegg PA Work Phone: [facility] 07-15-2024 14:19-0400 Diastolic blood pressure 72 mm[Hg] Krislyn Aberegg PA Work Phone: [facility] 07-15-2024 14:190400 Heart rate 108 /min Krislyn Aberegg PA Work Phone: [facility] 07-15-2024 14:190400 Respiratory rate 18 /min Krislyn Aberegg PA Work Phone: [facility] 07-15-2024 14:19-0400 SaO2% (BldA) [Mass fraction] 97 % Krislyn Aberegg PA Work Phone: [facility] 07-15-2024 14:190400 Systolic blood pressure 120 mm[Hg] Krislyn Aberegg PA Work Phone: [facility] 07-01-2024 10:50-0500 Body mass index (BMI) [Ratio] 37.49 kg/m2 Malka Moomaw TOOLS PROGRAMMER.MEDIA RELATIONS DIRECTOR Work Phone: [facility] 07-01-2024 10:50-0500 Body temperature 98.2 [degF] Malka Moomaw TOOLS PROGRAMMER.MEDIA RELATIONS DIRECTOR Work Phone: [facility] 07-01-2024 10:50-0500 Body weight 102.2 kg Malka Moomaw TOOLS PROGRAMMER.MEDIA RELATIONS DIRECTOR Work Phone: [facility] 07-01-2024 10:50-0500 Diastolic blood pressure 64 mm[Hg] Malka Moomaw TOOLS PROGRAMMER.MEDIA RELATIONS DIRECTOR Work Phone: [facility] 07-01-2024 10:50-0500 Heart rate 90 /min Malka Moomaw TOOLS PROGRAMMER.MEDIA RELATIONS DIRECTOR Work Phone: [facility] 07-01-2024 10:50-0500 Respiratory rate 20 /min Malka Moomaw TOOLS PROGRAMMER.MEDIA RELATIONS DIRECTOR Work Phone: [facility] 07-01-2024 10:50-0500 SaO2% (BldA) [Mass fraction] 99 % Malka Moomaw TOOLS PROGRAMMER.MEDIA RELATIONS DIRECTOR Work Phone: [facility] 07-01-2024 10:50-0500 Systolic blood pressure 120 mm[Hg] Malka Moomaw TOOLS PROGRAMMER.MEDIA RELATIONS DIRECTOR Work Phone: [facility] 05-08-2024 09:12-0500 Diastolic blood pressure 70 mm[Hg] Surya Bogner PA-C Work Phone: [facility] 05-08-2024 09:12-0500 Heart rate 78 /min Surya Bogner PA-C Work Phone: [facility] Comment on above: [id number] 05-08-2024 09:12-0500 Systolic blood pressure 120 mm[Hg] Surya Bogner PA-C Work Phone: [facility] 05-08-2024 08:13-0500 Body height 165.1 cm Surya Bogner PA-C Work Phone: [facility] 05-08-2024 08:13-0500 Body mass index (BMI) [Ratio] 36.94 kg/m2 Surya Bogner PA-C Work Phone: [facility] 05-08-2024 08:13-0500 Body weight 100.7 kg Surya Bogner PA-C Work Phone: [facility] 05-08-2024 08:13-0500 Respiratory rate 14 /min Surya Bogner PA-C Work Phone: [facility] 05-08-2024 08:13-0500 SaO2% (BldA) [Mass fraction] 98 % Surya Bogner PA-C Work Phone: [facility] 04-17-2024 10:21-0500 Body mass index (BMI) [Ratio] 37.31 kg/m2 Adriana Coulter TOOLS PROGRAMMER.MEDIA RELATIONS DIRECTOR Work Phone: [facility] 04-17-2024 10:21-0500 Body temperature 98.29 [degF] Adriana Coulter TOOLS PROGRAMMER.MEDIA RELATIONS DIRECTOR Work Phone: [facility] 04-17-2024 10:21-0500 Body weight 101.7 kg Adriana Coulter TOOLS PROGRAMMER.MEDIA RELATIONS DIRECTOR Work Phone: [facility] 04-17-2024 10:21-0500 Diastolic blood pressure 85 mm[Hg] Adriana Coulter TOOLS PROGRAMMER.MEDIA RELATIONS DIRECTOR Work Phone: [facility] 04-17-2024 10:21-0500 Heart rate 87 /min Adriana Coulter TOOLS PROGRAMMER.MEDIA RELATIONS DIRECTOR Work Phone: [facility] 04-17-2024 10:21-0500 Respiratory rate 20 /min Adriana Coulter TOOLS PROGRAMMER.MEDIA RELATIONS DIRECTOR Work Phone: [facility] 04-17-2024 10:21-0500 SaO2% (BldA) [Mass fraction] 96 % Adriana Coulter TOOLS PROGRAMMER.MEDIA RELATIONS DIRECTOR Work Phone: [facility] 04-17-2024 10:21-0500 Systolic blood pressure 129 mm[Hg] Adriana Coulter TOOLS PROGRAMMER.MEDIA RELATIONS DIRECTOR Work Phone: [facility] 03-17-2024 13:42-0500 Body mass index (BMI) [Ratio] 36.72 kg/m2 Deric Latham TOOLS PROGRAMMER.MEDIA RELATIONS DIRECTOR Work Phone: [facility] 03-17-2024 13:42-0500 Body temperature 98.2 [degF] Deric Latham TOOLS PROGRAMMER.MEDIA RELATIONS DIRECTOR Work Phone: [facility] 03-17-2024 13:42-0500 Body weight 100.1 kg Deric Latham APRN.MEDIA RELATIONS DIRECTOR Work Phone: [facility] 03-17-2024 13:42-0500 Diastolic blood pressure 62 mm[Hg] Deric Latham TOOLS PROGRAMMER.MEDIA RELATIONS DIRECTOR Work Phone: [facility] 03-17-2024 13:42-0500 Heart rate 90 /min Deric Latham APRN.MEDIA RELATIONS DIRECTOR Work Phone: [facility] 03-17-2024 13:42-0500 Respiratory rate 21 /min Deric Latham APRN.MEDIA RELATIONS DIRECTOR Work Phone: [facility] 03-17-2024 13:42-0500 SaO2% (BldA) [Mass fraction] 98 % Deric Latham APRN.MEDIA RELATIONS DIRECTOR Work Phone: [facility] 03-17-2024 13:42-0500 Systolic blood pressure 118 mm[Hg] Deric Latham APRN.MEDIA RELATIONS DIRECTOR Work Phone: [facility] 03-05-2024 08:20-0400 Body height 165.1 cm Nga Michel MD Work Phone: [facility] 03-05-2024 08:20-0400 Body mass index (BMI) [Ratio] 36.08 kg/m2 Nga Michel MD Work Phone: [facility] 03-05-2024 08:20-0400 Body weight 98.34 kg Nga Michel MD Work Phone: [facility] 03-05-2024 08:20-0400 Diastolic blood pressure 70 mm[Hg] Nga Michel MD Work Phone: [facility] 03-05-2024 08:20-0400 Systolic blood pressure 104 mm[Hg] Nga Michel MD Work Phone: [facility] 02-15-2024 11:20-0400 Body mass index (BMI) [Ratio] 36.5 kg/m2 Nga Michel MD Work Phone: [facility] 02-15-2024 11:20-0400 Body weight 97.98 kg Nga Michle MD Work Phone: [facility] 02-15-2024 11:20-0400 Diastolic blood pressure 74 mm[Hg] Nga Michel MD Work Phone: [facility] 02-15-2024 11:20-0400 Systolic blood pressure 116 mm[Hg] Nga Michel MD Work Phone: [facility] 02-14-2024 15:44-0400 Body height 165.1 cm Moises Pfeiffer MD Work Phone: [facility] 02-14-2024 15:44-0400 Body mass index (BMI) [Ratio] 35.81 kg/m2 Moises Pfeiffer MD Work Phone: [facility] 02-14-2024 15:44-0400 Body temperature 97.81 [degF] Moises Pfeiffer MD Work Phone: [facility] 02-14-2024 15:44-0400 Body weight 97.61 kg Moises Pfeiffer MD Work Phone: [facility] 02-06-2024 09:14-0400 Body mass index (BMI) [Ratio] 36.5 kg/m2 Briana Older TOOLS PROGRAMMER.MEDIA RELATIONS DIRECTOR Work Phone: [facility] 02-06-2024 09:14-0400 Body weight 97.98 kg Briana Older TOOLS PROGRAMMER.MEDIA RELATIONS DIRECTOR Work Phone: [facility] 02-06-2024 09:14-0400 Diastolic blood pressure 68 mm[Hg] Briana Older TOOLS PROGRAMMER.MEDIA RELATIONS DIRECTOR Work Phone: [facility] 02-06-2024 09:14-0400 Heart rate 72 /min Briana Older TOOLS PROGRAMMER.MEDIA RELATIONS DIRECTOR Work Phone: [facility] 02-06-2024 09:14-0400 Respiratory rate 16 /min Briana Older TOOLS PROGRAMMER.MEDIA RELATIONS DIRECTOR Work Phone: [facility] 02-06-2024 09:14-0400 SaO2% (BldA) [Mass fraction] 96 % Briana Older TOOLS PROGRAMMER.MEDIA RELATIONS DIRECTOR Work Phone: [facility] 02-06-2024 09:14-0400 Systolic blood pressure 122 mm[Hg] Briana Older TOOLS PROGRAMMER.MEDIA RELATIONS DIRECTOR Work Phone: [facility] 01-13-2024 09:11-0400 Body mass index (BMI) [Ratio] 36.17 kg/m2 Nga Michel MD Work Phone: [facility] 01-13-2024 09:11-0400 Body weight 97.07 kg Nga Michel MD Work Phone: [facility] 01-13-2024 09:11-0400 Diastolic blood pressure 62 mm[Hg] Nga Michel MD Work Phone: [facility] 01-13-2024 09:11-0400 Systolic blood pressure 104 mm[Hg] Nga Michel MD Work Phone: [facility] 12-14-2023 10:57-0400 Body height 163.8 cm Adele Haury TOOLS PROGRAMMER.MEDIA RELATIONS DIRECTOR Work Phone: [facility] 12-14-2023 10:57-0400 Body mass index (BMI) [Ratio] 36.5 kg/m2 Adele Haury TOOLS PROGRAMMER.MEDIA RELATIONS DIRECTOR Work Phone: [facility] 12-14-2023 10:57-0400 Body weight 97.98 kg Adele Haury TOOLS PROGRAMMER.MEDIA RELATIONS DIRECTOR Work Phone: [facility] 12-14-2023 10:57-0400 Diastolic blood pressure 68 mm[Hg] Adele Haury TOOLS PROGRAMMER.MEDIA RELATIONS DIRECTOR Work Phone: [facility] 12-14-2023 10:57-0400 Heart rate 70 /min Adele Haury TOOLS PROGRAMMER.MEDIA RELATIONS DIRECTOR Work Phone: [facility] 12-14-2023 10:57-0400 Respiratory rate 14 /min Adele Haury TOOLS PROGRAMMER.MEDIA RELATIONS DIRECTOR Work Phone: [facility] 12-14-2023 10:57-0400 SaO2% (BldA) [Mass fraction] 97 % Adele Haury TOOLS PROGRAMMER.MEDIA RELATIONS DIRECTOR Work Phone: [facility] 12-14-2023 10:57-0400 Systolic blood pressure 108 mm[Hg] Adele Haury TOOLS PROGRAMMER.MEDIA RELATIONS DIRECTOR Work Phone: [facility] 11-22-2023 07:49-0400 Body mass index (BMI) [Ratio] 36.1 kg/m2 Deric Latham APRN.MEDIA RELATIONS DIRECTOR Work Phone: [facility] 11-22-2023 07:49-0400 Body temperature 98.1 [degF] Deric Latham APRN.MEDIA RELATIONS DIRECTOR Work Phone: [facility] 11-22-2023 07:49-0400 Body weight 98.4 kg Deric Latham APRN.MEDIA RELATIONS DIRECTOR Work Phone: [facility] 11-22-2023 07:49-0400 Diastolic blood pressure 72 mm[Hg] Deric Latham APRN.MEDIA RELATIONS DIRECTOR Work Phone: [facility] 11-22-2023 07:49-0400 Heart rate 78 /min Deric Latham APRN.MEDIA RELATIONS DIRECTOR Work Phone: [facility] 11-22-2023 07:49-0400 Respiratory rate 16 /min Deric Latham APRN.MEDIA RELATIONS DIRECTOR Work Phone: [facility] 11-22-2023 07:49-0400 SaO2% (BldA) [Mass fraction] 98 % Deric Latham APRN.MEDIA RELATIONS DIRECTOR Work Phone: [facility] 11-22-2023 07:49-0400 Systolic blood pressure 122 mm[Hg] Deric Latham APRN.MEDIA RELATIONS DIRECTOR Work Phone: [facility] 10-21-2023 09:54-0400 Body height 165.1 cm Conor Brand MD Work Phone: [facility] 10-21-2023 09:54-0400 Body mass index (BMI) [Ratio] 36.34 kg/m2 Conor Brand MD Work Phone: [facility] 10-21-2023 09:54-0400 Body temperature 98.29 [degF] Conor Brand MD Work Phone: [facility] 10-21-2023 09:54-0400 Body weight 99.07 kg Conor Brand MD Work Phone: [facility] 10-21-2023 09:54-0400 Diastolic blood pressure 72 mm[Hg] Conor Brand MD Work Phone: [facility] 10-21-2023 09:54-0400 Heart rate 99 /min Conor Brand MD Work Phone: [facility] 10-21-2023 09:54-0400 SaO2% (BldA) [Mass fraction] 97 % Conor Brand MD Work Phone: [facility] 10-21-2023 09:54-0400 Systolic blood pressure 112 mm[Hg] Conor Brand MD Work Phone: [facility] 09-23-2023 08:47-0400 Body mass index (BMI) [Ratio] 36.69 kg/m2 Deric Latham APRN.MEDIA RELATIONS DIRECTOR Work Phone: [facility] 09-23-2023 08:47-0400 Body temperature 97.3 [degF] Deric Latham APRN.MEDIA RELATIONS DIRECTOR Work Phone: [facility] 09-23-2023 08:47-0400 Body weight 100 kg Deric Latham APRN.MEDIA RELATIONS DIRECTOR Work Phone: [facility] 09-23-2023 08:47-0400 Diastolic blood pressure 86 mm[Hg] Deric Latham APRN.MEDIA RELATIONS DIRECTOR Work Phone: [facility] 09-23-2023 08:47-0400 Heart rate 72 /min Deric Latham APRN.MEDIA RELATIONS DIRECTOR Work Phone: [facility] 09-23-2023 08:47-0400 Respiratory rate 18 /min Deric Latham APRN.MEDIA RELATIONS DIRECTOR Work Phone: [facility] 09-23-2023 08:47-0400 SaO2% (BldA) [Mass fraction] 99 % Deric Latham APRN.MEDIA RELATIONS DIRECTOR Work Phone: [facility] 09-23-2023 08:47-0400 Systolic blood pressure 141 mm[Hg] Deric Checo TOOLS PROGRAMMER.MEDIA RELATIONS DIRECTOR Work Phone: [facility] 09-07-2023 11:28-0400 Body mass index (BMI) [Ratio] 36.61 kg/m2 Isabel Morales TOOLS PROGRAMMER.CNM Work Phone: [facility] 09-07-2023 11:28-0400 Body weight 99.79 kg Isabel Morales TOOLS PROGRAMMER.CNM Work Phone: [facility] 09-07-2023 11:28-0400 Diastolic blood pressure 72 mm[Hg] Isabel Morales TOOLS PROGRAMMER.CNM Work Phone: [facility] 09-07-2023 11:28-0400 Systolic blood pressure 116 mm[Hg] Isabel Morales TOOLS PROGRAMMER.CNM Work Phone: [facility] 08-18-2023 07:30-0400 Body height 165.[address] Koki Worthington Work Phone: [facility] 08-18-2023 07:30-0400 Body weight 101.[address] Koki Worthington Work Phone: [facility] 08-16-2023 14:13-0400 Body temperature 98.8 [degF] Isabelcipriano Martinez TOOLS PROGRAMMER.MEDIA RELATIONS DIRECTOR Work Phone: [facility] 08-16-2023 14:13-0400 Body weight 102.6 kg Isabel Martinez TOOLS PROGRAMMER.MEDIA RELATIONS DIRECTOR Work Phone: [facility] 08-16-2023 14:13-0400 Diastolic blood pressure 76 mm[Hg] Isabel Martinez TOOLS PROGRAMMER.MEDIA RELATIONS DIRECTOR Work Phone: [facility] 08-16-2023 14:13-0400 Heart rate 72 /min Isabel Martinez TOOLS PROGRAMMER.MEDIA RELATIONS DIRECTOR Work Phone: [facility] 08-16-2023 14:13-0400 Respiratory rate 18 /min Isabel Martinez TOOLS PROGRAMMER.MEDIA RELATIONS DIRECTOR Work Phone: [facility] 08-16-2023 14:13-0400 SaO2% (BldA) [Mass fraction] 97 % Isabel Martinez TOOLS PROGRAMMER.MEDIA RELATIONS DIRECTOR Work Phone: [facility] 08-16-2023 14:13-0400 Systolic blood pressure 118 mm[Hg] Isabel Martinez TOOLS PROGRAMMER.MEDIA RELATIONS DIRECTOR Work Phone: [facility] 07-21-2023 07:30-0400 Body height 165.[address] Koki Worthington Work Phone: [facility] 07-21-2023 07:30-0400 Body weight 102.[address] Koki Worthington Work Phone: [facility] 07-15-2023 08:32-0500 Body height 165.1 cm Conor Brand MD Work Phone: [facility] 07-15-2023 08:32-0500 Body temperature 97.9 [degF] Conor Brand MD Work Phone: [facility] 07-15-2023 08:32-0500 Body weight 102.51 kg Conor Brand MD Work Phone: [facility] 07-15-2023 08:32-0500 Diastolic blood pressure 60 mm[Hg] Conor Brand MD Work Phone: [facility] 07-15-2023 08:32-0500 Heart rate 111 /min Conor Brand MD Work Phone: [facility] 07-15-2023 08:32-0500 SaO2% (BldA) [Mass fraction] 99 % Conor Brand MD Work Phone: [facility] 07-15-2023 08:32-0500 Systolic blood pressure 116 mm[Hg] Conor Brand MD Work Phone: [facility] 06-23-2023 09:23-0500 Body height 165.[address] Koki Worthington Work Phone: [facility] 06-23-2023 09:23-0500 Body mass index (BMI) [Ratio] 37.3 kg/m2 Dr. Koki Worthington Work Phone: 2(054)472-366965 [place] [address] 06-23-2023 09:23-0500 Body temperature 101.4 [degF] Dr. Koki Worthington Work Phone: 5(532)210-600696 [place] [address] 06-23-2023 09:23-0500 Body weight 101.[address] Koki Worthington Work Phone: 2(621)470-672596 [place] [address] 06-23-2023 09:23-0500 Diastolic blood pressure 86 mm[Hg] Dr. Koki Worthington Work Phone: 0(728)741-510796 [place] [address] 06-23-2023 09:23-0500 Heart rate 101 /min Dr. Koki Worthington Work Phone: 3(518)339-506896 [place] [address] 06-23-2023 09:23-0500 Respiratory rate 16 /min Dr. Koki Worthington Work Phone: 7(841)629-283196 [place] [address] 06-23-2023 09:23-0500 SaO2% (BldA) [Mass fraction] 98 % Dr. Koki Worthington Work Phone: 7(037)236-572096 [place] [address] 06-23-2023 09:23-0500 Systolic blood pressure 128 mm[Hg] Dr. Koki Worthington Work Phone: 5(779)357-099696 [place] [address] 06-23-2023 07:59-0500 Body weight 103.[address] Koki Worthington Work Phone: 5(445)091-204296 [place] [address] 06-23-2023 07:30-0500 Body weight 103.[address] Koki Worthington Work Phone: 1(927)526-770596 [place] [address] 06-16-2023 13:24-0500 Body weight 102.6 kg Adele Costa APRN.MEDIA RELATIONS DIRECTOR Work Phone: [facility] 06-16-2023 13:24-0500 Diastolic blood pressure 66 mm[Hg] Adele Costa APRN.MEDIA RELATIONS DIRECTOR Work Phone: [facility] 06-16-2023 13:24-0500 Systolic blood pressure 108 mm[Hg] Adele Costa APRN.MEDIA RELATIONS DIRECTOR Work Phone: 0(206)987-295180 [place] [address] 05-12-2023 07:30-0500 Body height 165.[address] Koki Worthington Work Phone: 3(181)622-155496 [place] [address] 05-12-2023 07:30-0500 Body weight 104.[address] Koki Worthington Work Phone: 8(090)100-997496 [place] [address] 04-26-2023 07:30-0500 Body height 165.[address] Koki Worthington Work Phone: 7(160)896-194596 [place] [address] 04-26-2023 07:30-0500 Body weight 104.[address] Koki Worthington Work Phone: 2(838)202-398696 [place] [address] 04-11-2023 08:30-0500 Body height 165.[address] Koki Worthington Work Phone: 7(069)533-212996 [place] [address] 04-11-2023 08:30-0500 Body weight 106.[address] Koki Worthington Work Phone: 0(670)406-806096 [place] [address] 03-28-2023 08:00-0500 Body weight 106.[address] Koki Worthington Work Phone: 2(231)569-225996 [place] [address] 02-23-2023 14:00-0400 Body height 165.[address] Koki Worthington Work Phone: 0(892)861-810696 [place] [address] 02-23-2023 14:00-0400 Body weight 107.[address] Koki Worthington Work Phone: 3(963)656-571296 [place] [address] 01-21-2023 10:13-0400 Body mass index (BMI) [Ratio] 39.9 kg/m2 Dr. Koki Worthington Work Phone: 6(936)010-685996 [place] [address] 01-21-2023 10:13-0400 Body weight 108.[address] Koki Worthington Work Phone: 2(442)219-223396 [place] [address] 01-21-2023 10:13-0400 Diastolic blood pressure 80 mm[Hg] Dr. Koki Worhtington Work Phone: 7(728)387-129096 [place] [address] 01-21-2023 10:13-0400 Heart rate 74 /min Dr. Koki Worthington Work Phone: [facility] 01-21-2023 10:13-0400 Respiratory rate 16 /min Dr. Koki Worthington Work Phone: [facility] 01-21-2023 10:13-0400 Systolic blood pressure 127 mm[Hg] Dr. Koki Worthington Work Phone: [facility] 08-04-2022 09:40-0400 Body weight 109.77 kg Briana Older TOOLS PROGRAMMER.MEDIA RELATIONS DIRECTOR Work Phone: [facility] 08-04-2022 09:40-0400 Diastolic blood pressure 82 mm[Hg] Briana Older TOOLS PROGRAMMER.MEDIA RELATIONS DIRECTOR Work Phone: [facility] 08-04-2022 09:40-0400 Heart rate 72 /min Briana Older TOOLS PROGRAMMER.MEDIA RELATIONS DIRECTOR Work Phone: [facility] 08-04-2022 09:40-0400 Respiratory rate 16 /min Briana Older TOOLS PROGRAMMER.MEDIA RELATIONS DIRECTOR Work Phone: [facility] 08-04-2022 09:40-0400 Systolic blood pressure 124 mm[Hg] Briana Older TOOLS PROGRAMMER.MEDIA RELATIONS DIRECTOR Work Phone: [facility] 05-07-2022 10:34-0500 Body temperature 98.49 [degF] Norm Hernandez Jr., MD Work Phone: [facility] 05-07-2022 10:34-0500 Body weight 108.32 kg Norm Hernandez Jr., MD Work Phone: [facility] 05-07-2022 10:34-0500 Diastolic blood pressure 89 mm[Hg] Norm Hernandez Jr., MD Work Phone: [facility] 05-07-2022 10:34-0500 Heart rate 97 /min Norm Hernandez Jr., MD Work Phone: [facility] 05-07-2022 10:34-0500 Respiratory rate 16 /min Norm Hernandez Jr., MD Work Phone: [facility] 05-07-2022 10:34-0500 SaO2% (BldA) [Mass fraction] 97 % Norm Hernandez Jr., MD Work Phone: [facility] 05-07-2022 10:34-0500 Systolic blood pressure 131 mm[Hg] Norm Hernandez Jr., MD Work Phone: [facility] 04-26-2022 11:13-0500 Body height 165.[address] Koki Worthington Work Phone: [facility] 04-26-2022 11:13-0500 Body mass index (BMI) [Ratio] 39.4 kg/m2 Dr. Koki Worthington Work Phone: [facility] 04-26-2022 11:13-0500 Body weight 107.[address] Koki Worthington Work Phone: [facility] 04-26-2022 11:13-0500 Diastolic blood pressure 87 mm[Hg] Dr. Koki Worthington Work Phone: [facility] 04-26-2022 11:13-0500 Heart rate 68 /min Dr. Koki Worthington Work Phone: [facility] 04-26-2022 11:13-0500 Respiratory rate 18 /min Dr. Koki Worthington Work Phone: [facility] 04-26-2022 11:13-0500 SaO2% (BldA) [Mass fraction] 95 % Dr. Koki Worthington Work Phone: [facility] 04-26-2022 11:13-0500 Systolic blood pressure 129 mm[Hg] Dr. Koki Worthington Work Phone: [facility] 03-12-2022 10:02-0400 Body weight 106.59 kg Zayra Becker MD Work Phone: [facility] 03-12-2022 10:02-0400 Diastolic blood pressure 74 mm[Hg] Zayra Becker MD Work Phone: [facility] 03-12-2022 10:02-0400 Systolic blood pressure 120 mm[Hg] Zayra Becker MD Work Phone: [facility] 01-18-2022 09:32-0400 Body weight 105.69 kg Briana Older TOOLS PROGRAMMER.MEDIA RELATIONS DIRECTOR Work Phone: [facility] 01-18-2022 09:32-0400 Diastolic blood pressure 74 mm[Hg] Briana Older TOOLS PROGRAMMER.MEDIA RELATIONS DIRECTOR Work Phone: [facility] 01-18-2022 09:32-0400 Heart rate 76 /min Briana Older TOOLS PROGRAMMER.MEDIA RELATIONS DIRECTOR Work Phone: [facility] 01-18-2022 09:32-0400 Respiratory rate 16 /min Briana Older TOOLS PROGRAMMER.MEDIA RELATIONS DIRECTOR Work Phone: [facility] 01-18-2022 09:32-0400 Systolic blood pressure 118 mm[Hg] Briana Older TOOLS PROGRAMMER.MEDIA RELATIONS DIRECTOR Work Phone: [facility] 12-04-2021 07:43-0400 Body temperature 96.91 [degF] Heber Ferrell MD Work Phone: [facility] 12-04-2021 07:43-0400 Body weight 102.42 kg Heber Ferrell MD Work Phone: [facility] 12-04-2021 07:43-0400 Diastolic blood pressure 72 mm[Hg] Heber Ferrell MD Work Phone: [facility] 12-04-2021 07:43-0400 Heart rate 88 /min Heber Ferrell MD Work Phone: [facility] 12-04-2021 07:43-0400 Respiratory rate 20 /min Heber Ferrell MD Work Phone: [facility] 12-04-2021 07:43-0400 SaO2% (BldA) [Mass fraction] 96 % Heber Ferrell MD Work Phone: [facility] 12-04-2021 07:43-0400 Systolic blood pressure 120 mm[Hg] Heber Ferrell MD Work Phone: [facility] 11-12-2021 14:03-0400 Body height 165.[address] Koki Worthington Work Phone: [facility] Work Phone: 11-12-2021 14:03-0400 Body mass index (BMI) [Ratio] 38.1 kg/m2 Dr. Koki Worthington Work Phone: [facility] Work Phone: 11-12-2021 14:03-0400 Body temperature 98.7 [degF] Dr. Koki Worthington Work Phone: [facility] Work Phone: 11-12-2021 14:03-0400 Body weight 104.[address] Koki Worthington Work Phone: [facility] Work Phone: 11-12-2021 14:03-0400 Diastolic blood pressure 81 mm[Hg] Dr. Koki Worthington Work Phone: [facility] Work Phone: 11-12-2021 14:03-0400 Heart rate 78 /min Dr. Koki Worthington Work Phone: [facility] Work Phone: 11-12-2021 14:03-0400 Respiratory rate 16 /min Dr. Koki Worthington Work Phone: [facility] Work Phone: 11-12-2021 14:03-0400 SaO2% (BldA) [Mass fraction] 98 % Dr. Koki Worthington Work Phone: [facility] Work Phone: 11-12-2021 14:03-0400 Systolic blood pressure 156 mm[Hg] Dr. Koki Worthington Work Phone: [facility] Work Phone: 11-03-2021 09:59-0400 Body temperature 97.7 [degF] Adriana Yfn TOOLS PROGRAMMER.MEDIA RELATIONS DIRECTOR Work Phone: [facility] 11-03-2021 09:59-0400 Body weight 104.87 kg Adriana Coulter TOOLS PROGRAMMER.MEDIA RELATIONS DIRECTOR Work Phone: [facility] 11-03-2021 09:59-0400 Diastolic blood pressure 88 mm[Hg] Adriana Coulter TOOLS PROGRAMMER.MEDIA RELATIONS DIRECTOR Work Phone: [facility] 11-03-2021 09:59-0400 Heart rate 80 /min Adrinaa Coulter TOOLS PROGRAMMER.MEDIA RELATIONS DIRECTOR Work Phone: [facility] [facility] 11-03-2021 09:59-0400 Respiratory rate 16 /min Adriana Coulter TOOLS PROGRAMMER.MEDIA RELATIONS DIRECTOR Work Phone: [facility] 11-03-2021 09:59-0400 SaO2% (BldA) [Mass fraction] 98 % Adriana Coulter TOOLS PROGRAMMER.MEDIA RELATIONS DIRECTOR Work Phone: [facility] 11-03-2021 09:59-0400 Systolic blood pressure 136 mm[Hg] Adriana Coulter TOOLS PROGRAMMER.MEDIA RELATIONS DIRECTOR Work Phone: [facility] 10-27-2021 08:38-0400 Body mass index (BMI) [Ratio] 37.9 kg/m2 Dr. Koki Worthington Work Phone: [facility] Work Phone: 10-27-2021 08:38-0400 Body weight 103.[address] Koki Worthington Work Phone: [facility] Work Phone: 10-27-2021 08:38-0400 Diastolic blood pressure 74 mm[Hg] Dr. Koki Worthington Work Phone: [facility] Work Phone: 10-27-2021 08:38-0400 Heart rate 79 /min Dr. Koki Worthington Work Phone: [facility] Work Phone: 10-27-2021 08:38-0400 Respiratory rate 18 /min Dr. Koki Worthington Work Phone: [facility] Work Phone: 10-27-2021 08:38-0400 Systolic blood pressure 117 mm[Hg] Dr. Koki Worthington Work Phone: [facility] Work Phone: 10-16-2021 08:00-0400 Body weight 103.87 kg Briana Older TOOLS PROGRAMMER.MEDIA RELATIONS DIRECTOR Work Phone: [facility] 10-16-2021 08:00-0400 Diastolic blood pressure 78 mm[Hg] Briana Older TOOLS PROGRAMMER.MEDIA RELATIONS DIRECTOR Work Phone: [facility] 10-16-2021 08:00-0400 Heart rate 64 /min Briana Older TOOLS PROGRAMMER.MEDIA RELATIONS DIRECTOR Work Phone: [facility] 10-16-2021 08:00-0400 Respiratory rate 16 /min Briana Older TOOLS PROGRAMMER.MEDIA RELATIONS DIRECTOR Work Phone: [facility] 10-16-2021 08:00-0400 Systolic blood pressure 118 mm[Hg] Briana Older TOOLS PROGRAMMER.MEDIA RELATIONS DIRECTOR Work Phone: [facility] 09-19-2021 08:30-0400 Body temperature 97 [degF] Scot [facility] TOOLS PROGRAMMER.MEDIA RELATIONS DIRECTOR Work Phone: [facility] 09-19-2021 08:30-0400 Body weight 104.6 kg [facility] TOOLS PROGRAMMER.MEDIA RELATIONS DIRECTOR Work Phone: [facility] 09-19-2021 08:30-0400 Diastolic blood pressure 78 mm[Hg] [facility] TOOLS PROGRAMMER.MEDIA RELATIONS DIRECTOR Work Phone: [facility] 09-19-2021 08:30-0400 Heart rate 83 /min [facility] TOOLS PROGRAMMER.MEDIA RELATIONS DIRECTOR Work Phone: [facility] 09-19-2021 08:30-0400 Respiratory rate 18 /min [facility] TOOLS PROGRAMMER.MEDIA RELATIONS DIRECTOR Work Phone: [facility] 09-19-2021 08:30-0400 SaO2% (BldA) [Mass fraction] 96 % Scot Carranza TOOLS PROGRAMMER.MEDIA RELATIONS DIRECTOR Work Phone: [facility] 09-19-2021 08:30-0400 Systolic blood pressure 110 mm[Hg] Scot Zimmermanmisa TOOLS PROGRAMMER.MEDIA RELATIONS DIRECTOR Work Phone: [facility] 09-12-2021 01:19-0400 Diastolic blood pressure 65 mm[Hg] Dr. Koki Worthington Work Phone: [facility] Work Phone: 09-12-2021 01:19-0400 Heart rate 56 /min Dr. Koki Worthington Work Phone: [facility] Work Phone: 09-12-2021 01:19-0400 Respiratory rate 13 /min Dr. Koki Worthington Work Phone: [facility] Work Phone: 09-12-2021 01:19-0400 SaO2% (BldA) [Mass fraction] 96 % Dr. Koki Worthington Work Phone: [facility] Work Phone: 09-12-2021 01:19-0400 Systolic blood pressure 105 mm[Hg] Dr. Koki Worthington Work Phone: [facility] Work Phone: 09-11-2021 22:12-0400 Body height 165.[address] Koki Worthington Work Phone: [facility] Work Phone: 09-11-2021 22:12-0400 Body mass index (BMI) [Ratio] 38.4 kg/m2 Dr. Koki Worthington Work Phone: [facility] Work Phone: 09-11-2021 22:12-0400 Body temperature 98.4 [degF] Dr. Koki Worthington Work Phone: [facility] Work Phone: 09-11-2021 22:12-0400 Body weight 104.[address] Koki Worthington Work Phone: [facility] Work Phone: 07-14-2021 12:58-0500 Body temperature 99.1 [degF] Dr. Koki Worthington Work Phone: [facility] Work Phone: 07-14-2021 12:58-0500 Diastolic blood pressure 80 mm[Hg] Dr. Koki Worthington Work Phone: [facility] Work Phone: 07-14-2021 12:58-0500 Heart rate 88 /min Dr. Koki Worthington Work Phone: [facility] Work Phone: 07-14-2021 12:58-0500 Respiratory rate 18 /min Dr. Koki Worthington Work Phone: [facility] Work Phone: 07-14-2021 12:58-0500 SaO2% (BldA) [Mass fraction] 97 % Dr. Koki Worthington Work Phone: [facility] Work Phone: 07-14-2021 12:58-0500 Systolic blood pressure 120 mm[Hg] Dr. Koki Worthington Work Phone: [facility] Work Phone: 05-29-2021 11:27-0500 Body temperature 98.1 [degF] Dr. Koki Worthington Work Phone: [facility] Work Phone: 05-29-2021 11:27-0500 Diastolic blood pressure 78 mm[Hg] Dr. Koki Worthington Work Phone: [facility] Work Phone: 05-29-2021 11:27-0500 Heart rate 94 /min Dr. Koki Worthington Work Phone: [facility] Work Phone: 05-29-2021 11:27-0500 Respiratory rate 15 /min Dr. Koki Worthington Work Phone: [facility] Work Phone: 05-29-2021 11:27-0500 SaO2% (BldA) [Mass fraction] 98 % Dr. Koki Worthington Work Phone: [facility] Work Phone: 05-29-2021 11:27-0500 Systolic blood pressure 120 mm[Hg] Dr. Koki Worthington Work Phone: [facility] Work Phone: Encounters Encounter Date Encounter Type Care Provider Facility Start: 01-08-2025 End: 01-09-2025 Get Medical Advice Clifton Schneider MD Work Phone: [facility] Comment on above: Loop recorder Start: 12-27-2024 End: 12-27-2024 Telephone encounter Clifton Schneider MD Work Phone: [facility] Start: 12-26-2024 End: 12-26-2024 Refill Koki Worthington MD Work Phone: [facility] [place] Comment on above: Refill Request Start: 12-16-2024 End: 12-16-2024 Emergency department patient visit Dr. Koki Worthington MD Work Phone: -Emergency Department Work Phone: Start: 11-28-2024 End: 11-28-2024 Telephone encounter Clifton Schneider MD Work Phone: [facility] Comment on above: Patient Update Start: 11-27-2024 End: 11-28-2024 Get Medical Advice Clifton Schneider MD Work Phone: [facility] Comment on above: Loop recorder questi on Start: 11-19-2024 End: 11-21-2024 Refill Koki Worthington MD Work Phone: [facility] [place] Comment on above: Refill Request Start: 11-08-2024 End: 11-08-2024 Office outpatient new 45 minutes Clifton Schneider MD Work Phone: [facility] [place] Comment on above: Palpitations (Primar y Dx); Paroxysmal tachycardia (HCC); PVC (premature ventricular contraction); Pre-syncope; Bigeminy; Supraventricular tachycardia (HCC) Start: 11-08-2024 End: 11-08-2024 ambulatory CLIFTON SCHNEIDER Facility[facility] [place] Start: 11-05-2024 End: 11-05-2024 Office outpatient visit 25 minutes Koki Worthington MD Work Phone: [facility] [place] Comment on above: Essential hypertensi on (Primary Dx); Paroxysmal tachycardia (HCC); Mild intermittent asthma without complication (HCC); Gastroesophageal reflux disease, unspecified whether esophagitis present; Tobacco abuse; Complex regional pain syndrome type 1 of right upper extremity; Anxiety and depression Start: 11-05-2024 End: 11-05-2024 ambulatory [facility] Facility:[facility] Start: 10-25-2024 End: 12-25-2024 Follow-up encounter Koki Worthington MD Work Phone: [facility] [place] Start: 10-23-2024 End: 10-23-2024 [facility] Facility:[facility] Start: 10-19-2024 End: 10-19-2024 Patient encounter procedure [facility] Work Phone: Start: 10-19-2024 End: 10-19-[address] Koki Worthington MD Work Phone: [facility] Work Phone: Start: 10-16-2024 End: 10-19-2024 ambulatory Koki Worthington MD Work Phone: Internal Medicine [facility] Start: 10-03-2024 End: 10-06-2024 Telephone encounter Koki Worthington MD Work Phone: [facility] [place] Comment on above: Results Start: 09-20-2024 End: 09-20-2024 [facility] Facility:[facility] Start: 09-07-2024 End: 09-07-2024 Follow-up encounter Briana Older TOOLS PROGRAMMER.MEDIA RELATIONS DIRECTOR Work Phone: [facility] [place] Comment on above: Results Start: 09-06-2024 End: 09-06-2024 [facility] Facility:[facility] Start: 09-06-2024 End: 09-06-2024 Office outpatient visit 25 minutes Briana Older TOOLS PROGRAMMER.MEDIA RELATIONS DIRECTOR Work Phone: [facility] [place] Comment on above: Pre-syncope (Primary Dx); Other fatigue; Hematuria, unspecified type; Paroxysmal tachycardia (HCC); Vitamin D deficiency Start: 09-06-2024 [facility] Facility:[facility] Start: 09-04-2024 End: 09-04-2024 Refill Briana Older TOOLS PROGRAMMER.MEDIA RELATIONS DIRECTOR Work Phone: [facility] [place] Comment on above: Refill Request Start: 08-02-2024 End: 08-02-2024 [facility] Facility:[facility] Start: 08-02-2024 End: 08-02-2024 Patient encounter procedure Briana [facility] TOOLS PROGRAMMER.MEDIA RELATIONS DIRECTOR Work Phone: Internal Medicine [place] Comment on above: Moderate persistent asthma, uncomplicated (Primary Dx); Wheezing; Shortness of breath Start: 07-25-2024 End: 09-24-2024 Follow-up encounter Briana Older TOOLS PROGRAMMER.MEDIA RELATIONS DIRECTOR Work Phone: [facility] [place] Start: 07-23-2024 End: 07-23-2024 Telephone encounter Koki Worthington MD Work Phone: Internal [facility] [place] Comment on above: Concern for pneumoni a Start: 07-23-2024 End: 07-23-2024 Subsequent hospital visit by physician [facility] [place] Work Phone: Radiology Comment on above: Wheezing [R06.2] Start: 07-23-2024 End: 07-23-2024 [facility] Facility:[facility] Start: 07-23-2024 End: 07-23-2024 Patient encounter procedure Briana Older TOOLS PROGRAMMER.MEDIA RELATIONS DIRECTOR Work Phone: [facility] [place] Comment on above: Wheezing (Primary Dx ); Shortness of breath; Acute cough; Dysuria; Leukocytes in urine; Proteinuria, unspecified type Start: 07-16-2024 End: 09-15-2024 Follow-up encounter Kole DE LA GARZA Work Phone: [place] [place] [facility] Start: 07-15-2024 End: 07-15-2024 ambulatory KOKI WORTHINGTON Facility:[facility] Start: 07-15-2024 End: 07-15-2024 Patient encounter procedure Kole DE LA GARZA Work Phone: [facility] Comment on above: URI, acute (Primary Dx) Start: 07-09-2024 End: 07-09-2024 ambulatory SELF Facility:[facility] Start: 07-09-2024 End: 07-09-2024 Nursing evaluation of patient and report Mi Nurse Work Phone: Family [facility] [place] Comment on above: Encounter for immuni zation (Primary Dx) Start: 2024 End: 07-03-2024 Telephone encounter Koki Worthington MD Work Phone: Internal Medicine [place] Comment on above: Orders Start: 07-01-2024 End: 07-01-2024 ambulatory SELF Facility:[facility] Start: 07-01-2024 End: 07-01-2024 Patient encounter procedure Malka Moulton WENDY.MEDIA RELATIONS DIRECTOR Work Phone: [facility] [place] [facility] Comment on above: Nasal congestion (Pr imary Dx) Start: 05-25-2024 End: 05-25-2024 Subsequent hospital visit by physician Genoveva Joseph MD Work Phone: [facility] Comment on above: Family history of bi rth defect Start: 05-25-2024 End: 05-25-2024 ambulatory GENOVEVA JOSEPH [facility] Start: 05-23-2024 End: 05-23-2024 Telephone encounter Surya Bishop PA-C Work Phone: Family [facility] [place] Comment on above: Results Start: 05-23-2024 End: 05-23-2024 ambulatory [facility] Facility:[facility] Start: 05-23-2024 End: 05-23-2024 Subsequent hospital visit by physician Xr [facility] Bob Work Phone: Radiology Comment on above: Bacterial pneumonia [J15.9] Start: 05-11-2024 End: 05-11-2024 ambulatory [facility] Facility:[facility] Start: 05-08-2024 End: 05-08-2024 Office outpatient visit 25 minutes Surya Bishop PA-C Work Phone: Family [facility] Comment on above: Paroxysmal tachycard ia (HCC) (Primary Dx); Bacterial pneumonia; Mild intermittent asthma without complication Start: 05-08-2024 End: 05-11-2024 Refill Briana Leggett APRN.MEDIA RELATIONS DIRECTOR Work Phone: Internal Medicine [place] Comment on above: Refill Request Start: 05-08-2024 End: 05-08-2024 ambulatory Gio [facility] Facility:[facility] Start: 05-01-2024 End: 05-01-2024 ambulatory [facility] Facility[facility] Start: 04-17-2024 End: 04-17-2024 [facility] Work Phone: [facility] Comment on above: Acute cough [R05.1] Start: 04-17-2024 End: 04-17-2024 [facility] Facility:[facility] Start: 04-17-2024 End: 04-17-2024 Patient encounter procedure Adriana Coulter APRN.MEDIA RELATIONS DIRECTOR Work Phone: [place] [place] [facility] Comment on above: Community acquired p neumonia of left lung, unspecified part of lung (Primary Dx); Sore throat; Acute cough; URI, acute Start: 04-16-2024 End: 04-16-2024 ambulatory [facility] Facility:[facility] Start: 03-20-2024 End: 03-20-2024 Patient encounter procedure Moises Pfeiffer MD Work Phone: [facility] Comment on above: Hoarseness of voice (Primary Dx); Lesion of vocal cord Start: 03-20-2024 End: 03-20-2024 [facility] Start: 03-19-2024 End: 03-19-2024 Telephone encounter Heber Ferrell MD Work Phone: [place] [place] [facility] Comment on above: Results (Urine Cx mi xed) Start: 03-17-2024 End: 03-17-2024 [facility] Facility:[facility] Start: 03-17-2024 End: 03-17-2024 Patient encounter procedure Deric Latham APRN.MEDIA RELATIONS DIRECTOR Work Phone: [facility] [place] [facility] Comment on above: Urinary frequency (P rimary Dx); Acute otitis externa of left ear, unspecified type Start: 03-13-2024 [facility] Facility:[facility] Start: 03-05-2024 End: 03-05-2024 ambulatory NGA MICHEL Facility:[facility] Start: 03-05-2024 End: 03-05-2024 Patient encounter status Nga Michel MD Work Phone: [facility] Start: 03-05-2024 End: 03-05-2024 Periodic preventive med est patient 40-64yrs Nga Michel MD Work Phone: OB/Gynecology Comment on above: Encounter for gyneco logical examination (general) (routine) without abnormal findings (Primary Dx); Encounter for screening mammogram for malignant neoplasm of breast; Vaginal discharge Start: 03-01-2024 End: 03-01-2024 [facility] Start: 02-22-2024 [facility] Facility:[facility] Start: 02-15-2024 End: 02-15-2024 ambulatory NGA MICHEL Facility:[facility] Start: 02-15-2024 End: 02-15-2024 Office outpatient visit 15 minutes Nga Michel MD Work Phone: OB/Gynecology Comment on above: Surveillance of prev iously prescribed intrauterine contraceptive device (Primary Dx) Start: 02-14-2024 End: 02-15-2024 ambulatory [facility] Start: 02-14-2024 End: 02-14-2024 Office outpatient new 45 minutes Moises Pfeiffer MD Work Phone: [facility] Comment on above: Hoarseness of voice (Primary Dx); Contact ulcer of vocal cord Start: 02-14-2024 End: 02-14-2024 ambulatory MOISES [facility] Start: 02-06-2024 End: 02-06-2024 ambulatory BRIANA [facility] Facility:[facility] Start: 02-06-2024 End: 02-06-2024 Patient encounter procedure Briana Leggett APRN.MEDIA RELATIONS DIRECTOR Work Phone: Internal Medicine [place] Comment on above: Palpitations (Primar y Dx); Paroxysmal tachycardia (HCC); Moderate persistent asthma with acute exacerbation Start: 01-19-2024 End: 02-06-2024 [facility] Facility:[facility] Start: 01-13-2024 End: 01-13-2024 ambulatory NGA MICHEL Facility:[facility] Start: 01-13-2024 End: 01-13-2024 Patient encounter procedure Nga Michel MD Work Phone: OB/Gynecology Comment on above: Encounter for IUD in sertion (Primary Dx) Start: 12-15-2023 Telephone encounter Adele kaur APRN.MEDIA RELATIONS DIRECTOR Work Phone: OB/Gynecology Comment on above: Results Start: 12-14-2023 End: 12-14-2023 ambulatory [facility] Facility:[facility] Start: 12-14-2023 End: 12-14-2023 Patient encounter procedure Adele Costa TOOLS PROGRAMMER.MEDIA RELATIONS DIRECTOR Work Phone: OB/Gynecology Comment on above: Vaginal itching (Jonelle niko Dx); Vulvar irritation; Encounter for IUD insertion; Dysmenorrhea Start: 12-06-2023 Refill Briana CantrellMEDIA RELATIONS DIRECTOR Work Phone: Internal Medicine [place] Comment on above: Refill Request Start: 11-22-2023 End: 11-22-2023 ambulatory [facility] Facility:[facility] Start: 11-22-2023 End: 11-22-2023 Patient encounter procedure Deric Latham APRN.MEDIA RELATIONS DIRECTOR Work Phone: [facility] Comment on above: Skin infection (Prim maribell Dx) Start: 11-01-2023 Admission to [facility] Conor Brand MD Work Phone: General Surgery Comment on above: Cytology results Start: 11-01-2023 E-mail encounter fro m caregiver Conor Barnd MD Work Phone: General Surgery Start: 11-01-2023 Telephone encounter Conor Brand MD Work Phone: General Surgery Start: 10-25-2023 Refill Briana Leggett APRN .MEDIA RELATIONS DIRECTOR Work Phone: Internal Medicine [place] Comment on above: Refill Request Start: 10-21-2023 End: 10-21-2023 Patient encounter procedure Conor Brand MD Work Phone: General Surgery Comment on above: Nipple discharge Start: 09-29-2023 ambulatory Briana Leggett APRN .MEDIA RELATIONS DIRECTOR Work Phone: Internal Medicine [place] Comment on above: Nebulizer Start: 09-23-2023 End: 09-23-2023 Patient encounter procedure Deric Latham APRN.MEDIA RELATIONS DIRECTOR Work Phone: [facility] Comment on [...] Surya trevizo PA-C Work Phone: Internal Medicine [place] Comment on above: Refill Request Start: 08-18-2023 End: 09-06-[address] Koki Worthington Work Phone: [facility] Work Phone: Start: 08-18-2023 End: 09-06-[address] [facility]thing[facility] Work [facility] Start: 08-16-2023 End: 08-16-2023 Patient encounter procedure Isabel Martinez APRN.MEDIA RELATIONS DIRECTOR Work Phone: [facility] Comment on above: Hidradenitis suppura tiva (Primary Dx) Start: 07-21-2023 End: 08-07-[address] Koki Worthington Work Phone: [facility] Work Phone: Start: 07-21-2023 End: 08-07-[address] Koki Worthington [facility] Work [facility]: Start: 07-19-2023 ambulatory Koki Butler Work Phone: Internal Medicine [facility] Start: 07-15-2023 End: 07-15-2023 Patient encounter procedure Conor Brand MD Work Phone: General Surgery Comment on above: Anal fissure (Primar y Dx); Hemorrhoids, unspecified hemorrhoid type Start: 07-01-2023 End: 07-01-[address] Koki Worthington Work Phone: [facility] Work Phone: Start: 07-01-2023 End: 07-01-[address] Koki Worthington Work Phone: [facility] Work Phone: Start: 06-24-2023 Telephone encounter Adele kaur APRN.MEDIA RELATIONS DIRECTOR Work Phone: OB/Gynecology Comment on above: Vaginal Problem Start: 06-23-2023 End: 06-23-[address] Koki Worthington Work Phone: [facility] Work Phone: Start: 06-23-2023 End: 07-07-[address] Koki Worthington Work Phone: [facility] Work Phone: Start: 06-23-2023 End: 07-07-[address] Koki Worthing[facility] Work [facility]: Start: 06-23-[address] Dell Worthington Work Phone: [facility] Work Phone: Start: 06-17-2023 Telephone encounter Adele kaur APRN.MEDIA RELATIONS DIRECTOR Work Phone: OB/Gynecology Comment on above: Results Start: 06-16-2023 Telephone encounter Re simpson APRN.CNM Work Phone: OB/Gynecology Comment on above: Patient Question (BV ) Start: 06-16-2023 End: 06-16-2023 Patient encounter procedure Adele Costa APRN.MEDIA RELATIONS DIRECTOR Work Phone: OB/Gynecology Comment on above: Acute vaginitis (Jonelle niko Dx); Hemorrhoids, unspecified hemorrhoid type Start: 05-12-2023 End: 06-08-[address] Koki Worthington Work Phone: [facility] Work Phone: Start: 05-12-2023 End: 06-08-[address] Koki Worthington Work Phone: [facility] Work Phone: Start: 05-05-2023 End: 05-05-[address] Koki Worthington Work Phone: [facility] Work Phone: Start: 05-05-2023 End: 05-05-[address] Koki Worthington [facility] Work [facility]: Start: 04-26-2023 End: 05-08-[address] Koki Worthington Work Phone: [facility] Work Phone: Start: 04-26-2023 End: 05-08-[address] Koki Worthington [facility] Work [facility]: Start: 04-26-[address] Dell Worthington [facility] Work [facility]: Start: 03-28-2023 End: 04-07-[address] Koki Worthington [facility] Work Phone: Start: 03-15-2023 Telephone encounter Koki singletary MD Work Phone: Internal Medicine [place] Comment on above: Insurance Authorizat ion Start: 03-11-2023 Telephone encounter Eileen crespo TOOLS PROGRAMMER.MEDIA RELATIONS DIRECTOR Work Phone: OB/Gynecology Comment on above: Results Start: 02-28-2023 Refill Briana Older TOOLS PROGRAMMER .MEDIA RELATIONS DIRECTOR Work Phone: Internal Medicine [place] Comment on above: Refill Request Start: 02-28-2023 Refill Briana Older TOOLS PROGRAMMER .MEDIA RELATIONS DIRECTOR Work Phone: Internal Medicine [place] Comment on above: Refill Request Start: 02-24-[address] Dell Worthington [facility] Work [facility]: Start: 02-23-2023 End: 03-08-[address] Koki Worthington Work Phone: [facility] Work Phone: Start: 02-23-2023 End: 03-08-[address] Koki Worthington [facility] Work [facility]: Start: 02-15-2023 End: 02-15-[address] Koki Worthington Work Phone: [facility] Work Phone: Start: 02-05-2023 End: 02-05-[address] Koki Worthington Work Phone: [facility] Work Phone: Start: 01-26-2023 Non-patient / Non-visit Dr. Edilson Worthington Work Phone: [facility] Start: 01-21-2023 End: 01-21-[address] Koki Worthington Work Phone: [facility] Work Phone: Start: 01-18-2023 ambulatory Koki Butler Work Phone: Internal Medicine [facility] Start: 12-23-2022 End: 12-23-2022 ambulatory [facility] Start: 12-16-2022 End: 12-16-[address] Koik Worthington Work Phone: [facility] Work Phone: Start: 11-11-2022 Refill Briana Leggett APRN, .CNP Work Phone: Internal [facility] Comment on above: Refill Request Start: 11-01-2022 End: 11-01-[address] Koki Worthington Work Phone: [facility] Work Phone: Start: 11-01-2022 End: 11-01-[address] Koki Worthington Work Phone: [facility]-Physical Therapy Start: 10-03-2022 Refill Briana Leggett APRN .MEDIA RELATIONS DIRECTOR Work Phone: Internal Medicine [place] Comment on above: Refill Request Start: 09-15-2022 End: 09-15-[address] Koki Worthington Work Phone: [facility] Start: 08-04-2022 Telephone encounter Gilmer kennedy DO Work Phone: Orthopaedics Comment on above: Appointment Start: 08-04-2022 End: 08-04-2022 Patient encounter procedure Briana Oleksandr NGUYEN.MEDIA RELATIONS DIRECTOR Work Phone: Internal Medicine [place] Comment on above: Essential hypertensi on (Primary Dx); Hyperlipidemia, mixed; Palpitations; Gastroesophageal reflux disease, unspecified whether esophagitis present; Post traumatic stress disorder (PTSD) Start: 08-02-2022 End: 10-11-2022 ambulatory ISABEL PHOTOGRAPHIC EQUIPMENT MECHANIC [facility] Start: 07-29-2022 End: 07-29-2022 ambulatory ABBY PHOTOGRAPHIC EQUIPMENT MECHANIC [facility] Start: 07-27-2022 End: 07-27-2022 Subsequent hospital visit by physician [facility] Work Phone: Radiology Comment on above: Canceled (CC cx: Err or or Template Change) Start: 07-27-2022 End: 07-27-[address] Koki Worthington Work Phone: [facility] Start: 07-16-2022 End: 07-16-2022 ambulatory ISABEL PHOTOGRAPHIC EQUIPMENT MECHANIC [facility] Start: 07-09-2022 End: 07-09-2022 ambulatory ISABEL PHOTOGRAPHIC EQUIPMENT MECHANIC [facility] Start: 07-01-2022 Telephone encounter Clem García Radiology Comment on above: Appointment Start: 06-18-2022 End: 06-18-2022 ambulatory Chela Sheridan DO Work Phone: Orthopaedics Comment on above: Arm swelling (Primar y Dx); Acute pain of right shoulder; Traumatic tear of right rotator cuff, unspecified tear extent, initial encounter Start: 06-18-2022 End: 06-18-2022 Telemedicine consultation with patient Chela Sheridan DO Work Phone: [facility] Start: 06-16-2022 End: 06-16-2022 [facility] Norm Hernandez MD Work Phone: Neurology Comment on above: Facial paresthesia ( Primary Dx); Trigeminal nerve disorder; Twitch; Tic disorder; Intermittent tremor Start: 05-27-2022 End: 05-27-2022 Refill Briana Leggett APRN.CNP Work Phone: Internal Medicine [place] Comment on above: Refill Request disk and report Start: 05-27-2022 End: 05-27-[address] Koki Worthington Work Phone: [facility]-P[facility] Services/Neurology Start: 05-19-2022 Telephone encounter Chela Sheridan DO Work Phone: Podiatry Comment on above: Patient Question Start: 05-14-2022 Telephone encounter Mitchel sarmiento MD Work Phone: Orthopaedics Comment on above: Pain (Shoulder Pain) Start: 05-11-2022 End: 05-11-2022 Subsequent hospital visit by physician [facility] (I-Stat/1.5t) Work Phone: Radiology Comment on above: Acute pain of right shoulder [M25.511] Start: 05-07-2022 End: 05-07-2022 Patient encounter procedure Norm Hernandez MD Work Phone: Neurology Comment on above: Facial paresthesia ( Primary Dx); Trigeminal nerve disorder; Intermittent tremor; Twitch; Tic disorder Start: 04-26-2022 End: 04-26-[address] Koki Worthington Work Phone: [facility] Start: 04-12-2022 End: 04-12-2022 Patient encounter procedure Mitchel Staton MD Work Phone: Orthopaedics Comment on above: Acute pain of right shoulder (Primary Dx); Traumatic tear of right rotator cuff, unspecified tear extent, initial encounter Start: 04-07-2022 Refill Mario Camara DO Work Phone: Cardiology Comment on above: Refill Request Start: 03-23-2022 End: 03-23-2022 Emergency department patient visit ADORE NIXON [facility] Start: 03-19-2022 ambulatory [facility] Provider OB/Gynecol gurwinder Comment on above: Test Results Start: 03-19-2022 E-mail encounter fro m caregiver [facility] Provider [facility] Start: 03-18-2022 Telephone encounter Zayra griggs MD Work Phone: OB/Gynecology Comment on above: Orders Start: 03-17-2022 End: 03-17-2022 Subsequent hospital visit by physician [facility] Comment on above: Other specified soft tissue disorders [M79.89] Start: 03-12-2022 End: 03-12-2022 Patient encounter procedure Zayra Becker MD Work Phone: OB/Gynecology Comment on above: Soft tissue mass (Pr imary Dx) Start: 02-23-2022 ambulatory Briana CantrellMEDIA RELATIONS DIRECTOR Work Phone: Internal Medicine [place] Comment on above: Nebulizer machine Start: 02-10-2022 ambulatory Briana Leggett APRN, .CNP Work Phone: Internal Medicine [place] Comment on above: Paperwork Start: 01-25-2022 End: 01-25-[address] Koki Worthington Work Phone: [facility] Work Phone: Start: 01-25-2022 End: 01-25-[address] Koki Worthington Work Phone: [facility] Start: 01-18-2022 End: 01-18-2022 Patient encounter procedure Briana Leggett APRN.MEDIA RELATIONS DIRECTOR Work Phone: Internal Medicine [place] Comment on above: Chest pain, unspecif ied type (Primary Dx); Facial paresthesia; Intermittent tremor; Gastroesophageal reflux disease, unspecified whether esophagitis present; Essential hypertension; Hyperlipidemia, mixed; Molluscum contagiosum Start: 12-18-2021 Refill Koki Butler Work Phone: Internal Medicine [place] Comment on above: Refill Request Start: 12-04-2021 End: 12-04-2021 Subsequent hospital visit by physician [facility] Work Phone: Radiology Comment on above: Elbow pain, left [M2 5.522] Start: 12-04-2021 End: 12-04-2021 Patient encounter procedure Heber Ferrell MD Work Phone: [facility] Comment on above: Elbow pain, left (Pr imary Dx) Start: 12-02-2021 End: 12-02-2021 Patient encounter procedure Yo Segura MD Work Phone: Ophthalmology Comment on above: Alteration in vision (Primary Dx); Transient vision disturbance of right eye; Eyelid twitch Start: 11-16-2021 End: 11-16-[address] Koki Worthington Work Phone: [facility] Start: 11-12-2021 End: 11-12-[address] Koki Worthington Work Phone: [facility] Neurology Start: 11-04-2021 End: 11-04-2021 Patient [...] encounter procedure Adriana Coulter APRN.CNP Work Phone: [facility] Comment on above: Bacterial sinusitis (Primary Dx) Start: 10-27-2021 End: 10-27-[address] Koki Worthington Work Phone: [facility] Start: 10-19-2021 Telephone encounter Briana Leggett APRN.MEDIA RELATIONS DIRECTOR Work Phone: Internal Medicine [place] Comment on above: Patient Question Start: 10-16-2021 End: 10-16-2021 Patient encounter procedure Briana Leggett APRN.MEDIA RELATIONS DIRECTOR Work Phone: Internal Medicine [place] Comment on above: Moderate persistent asthma, uncomplicated (Primary Dx); Essential hypertension; Hyperlipidemia, mixed; Facial paresthesia; Palpitations Start: 09-19-2021 End: 09-19-2021 Patient encounter procedure Scot Carranza APRN.MEDIA RELATIONS DIRECTOR Work Phone: [facility] Comment on above: Pain, dental (Primar y Dx) Start: 09-17-2021 End: 09-17-[address] Koki Worthington Work Phone: [facility] Services/Neurology Start: 09-11-2021 End: 09-12-2021 Emergency department patient visit Dr. Koki Worthington Work Phone: [facility]gency Department Start: 07-31-2021 End: 07-31-2021 Patient encounter procedure Chela Sheridan DO Work Phone: Orthopaedics Comment on above: Multiple joint compl aints (Primary Dx); Chronic right shoulder pain; Tendinitis of right shoulder; Impingement syndrome of right shoulder Start: 07-14-2021 End: 07-14-[address] Koki Worthington Work Phone: [facility] Neurology Start: 06-05-2021 Non-patient / Non-visit Dr. Edilson Worthington Work Phone: [facility] Start: 06-05-2021 End: 06-05-[address] Koki Worthington Work Phone: [facility] Services/Neurology Start: 05-29-2021 End: 05-29-[address] Koki Worthington Work Phone: [facility] Start: 05-22-2021 End: 05-22-[address] Koki Worthington Work Phone: [facility] Start: 12-28-2019 End: 12-28-2019 Subsequent hospital visit by physician Brian Argueta Work Phone: [facility] Comment on above: Arrived Procedures Date Procedure Procedure Detail Performing Clinician Start: 11-08-2024 Ecg routine ecg w/le ast 12 lds w/i&r Clifton Schneider MD Work Phone: Start: 09-06-2024 Urnls dip stick/tabl et rgnt auto w/o microscopy Briana Older TOOLS PROGRAMMER.MEDIA RELATIONS DIRECTOR Work Phone: Start: 09-06-2024 Ecg routine ecg w/le ast 12 lds i&r only Briana Older TOOLS PROGRAMMER.MEDIA RELATIONS DIRECTOR Work Phone: Start: 07-23-2024 Radiologic exam ches t 2 views Briana Older TOOLS PROGRAMMER.MEDIA RELATIONS DIRECTOR Work Phone: Start: 07-23-2024 Urnls dip stick/tabl et rgnt auto w/o microscopy Briana Older TOOLS PROGRAMMER.MEDIA RELATIONS DIRECTOR Work Phone: Start: 05-23-2024 Radiologic exam ches t 2 views Surya Bishop PA-C Work Phone: Start: 04-17-2024 Radiologic exam ches t 2 views Adriana Coulter TOOLS PROGRAMMER.MEDIA RELATIONS DIRECTOR Work Phone: Start: 04-17-2024 STREP A MOLECULAR (POC) Adriana Coulter TOOLS PROGRAMMER.MEDIA RELATIONS DIRECTOR Work Phone: Start: 03-17-2024 Urnls dip stick/tabl et rgnt auto w/o microscopy Isabel Martinez TOOLS PROGRAMMER.MEDIA RELATIONS DIRECTOR Work Phone: Start: 01-13-2024 UA DIP,URINE HCG (POC) Nga Michel MD Work Phone: Start: 09-23-2023 STREP A MOLECULAR (POC) [facility] Provider Start: 09-14-2023 Us breast uni real t cady with image limited Isabel Morales TOOLS PROGRAMMER.CNM Work Phone: Start: 09-14-2023 End: 09-14-2023 Digital breast tomosynthesis bilateral Isabel Morales TOOLS PROGRAMMER.CNM Work Phone: Start: 02-05-2023 MRI of joint [...] w/le ast 12 lds w/i&r Briana Older TOOLS PROGRAMMER.MEDIA RELATIONS DIRECTOR Work Phone: Start: 01-17-2022 Adult depression scr eening assessment Briana Older TOOLS PROGRAMMER.MEDIA RELATIONS DIRECTOR Work Phone: Start: 12-04-2021 Radex elbow complete minimum 3 views Heber Ferrell MD Work Phone: Start: 12-02-2021 End: 12-02-2021 Visual field xm uni/bi w/interp extended exam Yo Segura MD Work Phone: Start: 10-14-2021 Adult depression scr eening assessment Briana Older TOOLS PROGRAMMER.MEDIA RELATIONS DIRECTOR Work Phone: Start: 09-11-2021 Plain chest X-ray Dr. Crystal Worthington Work Phone: Start: 09-10-2021 Adult depression scr eening assessment Scot Carranza TOOLS PROGRAMMER.MEDIA RELATIONS DIRECTOR Work Phone: Start: 07-31-2021 Arthrocentesis aspir &/inj major jt/bursa w/o us Chela Sheridan DO Work Phone: Start: 06-14-2021 Adult depression scr eening assessment Chela Fatimah DO Work Phone: Plan of Treatment Date Care Activity Detail Author Start: 2033 Zoster Vaccines (1 of 2) Zoste r Vaccines (1 of 2) [facility] Start: 06-13-2028 DTaP/Tdap/Td Vaccine s (2 - Td or Tdap) DTaP/Tdap/Td Vaccines (2 - Td or Tdap) [facility] Start: 06-13-2028 Urine microalbumin profile [facility] Start: 03-12-2027 HPV TESTING HPV TESTING [facility] Start: 03-12-2027 PAP TESTING PAP TESTING [facility] Start: 03-12-2027 Screening for malign ant neoplasm of cervix [facility] Start: 09-15-2026 HPV TESTING HPV TESTING [facility] Start: 09-15-2026 PAP TESTING PAP TESTING [facility] Start: 11-05-2025 Annual PCP Team Entry Processor jacquie Disease Visit Annual PCP Team Chronic Disease Visit [facility] Start: 09-06-2025 Annual PCP Team Entry Processor jacquie Disease Visit Annual PCP Team Chronic Disease Visit [facility] Start: 09-06-2025 BP Controlled (<130/80) BP Controlle d (<130/80) [facility] Start: 08-02-2025 Annual PCP Team Entry Processor jacquie Disease Visit Annual PCP Team Chronic Disease Visit [facility] Start: 08-02-2025 BP Controlled (<130/80) BP Controlle d (<130/80) [facility] Start: 07-23-2025 Annual PCP Team Entry Processor jcaquie Disease Visit Annual PCP Team Chronic Disease Visit [facility] Start: 07-23-2025 BP Controlled (<130/80) BP Controlle d (<130/80) [facility] Start: 07-21-2025 PAP TESTING PAP TESTING [facility] Start: 07-15-2025 BP Controlled (<130/80) BP Controlle d (<130/80) [facility] Start: 07-01-2025 BP Controlled (<130/80) BP Controlle d (<130/80) [facility] Start: 05-08-2025 Annual PCP Team Entry Processor jacquie Disease Visit Annual PCP Team Chronic Disease Visit [facility] Start: 05-08-2025 BP Controlled (<130/80) BP Controlle d (<130/80) [facility] Start: 05-07-2025 End: 05-07-2025 Patient encounter procedure 05/07/2025 11:20 AM EST Office Visit Internal [facility] [address] [place] [id number] Koki Worthington MD [address] [place] [address] 6 month follow up [facility] Comment on above: 6 month follow up Start: 03-17-2025 BP Controlled (<130/80) BP Controlle d (<130/80) [facility] Start: 03-12-2025 Screening for malign ant neoplasm of cervix [facility] Start: 03-08-2025 End: 03-08-2025 Patient encounter procedure Mammogram Comment on above: Encounter for screen ing mammogram for malignant neoplasm of breast [Z12.31] annual Start: 03-05-2025 BP Controlled (<130/80) BP Controlle d (<130/80) [facility] Start: 02-14-2025 BP Controlled (<130/80) BP Controlle d (<130/80) [facility] Start: 02-05-2025 Annual PCP Team Entry Processor jacquie Disease Visit Annual PCP Team Chronic Disease Visit [facility] Start: 02-05-2025 BP Controlled (<130/80) BP Controlle d (<130/80) [facility] Start: 01-12-2025 BP Controlled (<130/80) BP Controlle d (<130/80) [facility] Start: 01-09-2025 End: 01-09-2025 Nursing evaluation of patient and report 01/09/2025 8:00 AM EDT Nurse Visit Family [facility] [address] [place], [place] [id number] Nurse, Phuong [address] [place], [place] [phone] Hepatitis B #3 [facility] Comment on above: Hepatitis B #3 Start: 01-08-2025 End: 01-08-2025 Admission to same day surgery center 01/08/2025 7:45 AM EDT - 01/08/2025 9:25 AM EDT Surgery [address] [address] Clifton Schneider MD [address] [place] [address] INSERTION SUBCUTANEIOUS CARDIAC RHYTHM MONITOR,INCL PROGRAMMNG [facility] Comment on above: INSERTION SUBCUTANEI OUS CARDIAC RHYTHM MONITOR,INCL PROGRAMMNG Start: 01-08-2025 End: 01-08-2025 Insertion subq cardiac rhythm monitor w/prgrmg INSERTION SUBCUTANEIOUS CARDIAC RHYTHM MONITOR,INCL PROGRAMMNG Paroxysmal tachycardia (HCC) Palpitations PVC (premature ventricular contraction) Dizziness Near syncope 01/08/2025 7:45 AM EDT [facility] Start: 01-08-2025 Subsequent hospital visit by physician 01/08/2025 7:45 AM EDT Hospital Encounter [address] [address] Clifton Schneider MD [address] [place] [address] Paroxysmal tachycardia (HCC) [I47.9], Palpitations [R00.2], PVC (premature ventricular contraction) [I49.3], Dizziness [R42], Near syncope [R55] [facility] Comment on above: Paroxysmal tachycard ia (HCC) [I47.9], Palpitations [R00.2], PVC (premature ventricular contraction) [I49.3], Dizziness [R42], Near syncope [R55] Start: 01-07-2025 Influenza vaccination C [facility] Start: 12-29-2024 Hepb vaccine adult 3 dose schedule for im use HEP B VACCINE, 3-DOSE, AGE 20+ YR (ENGERIX-B, RECOMBIVAX HB) Immunization/Injection Routine Need for vaccination Expected: 12/29/2024 (Approximate) [facility] Comment on above: Expected: 12/29/2024 (Approximate) Start: 12-16-2024 [facility] Start: 12-13-2024 BP Controlled (<130/80) BP Controlle d (<130/80) [facility] Start: 11-21-2024 BP Controlled (<130/80) BP Controlle d (<130/80) [facility] Start: 11-08-2024 End: 11-08-2024 Patient encounter procedure [facility] Comment on above: Pre-syncope [R55] ReEst for Paroxysmal tachycardia MARISELA 2020 EKG/eo Start: 11-05-2024 Influenza vaccination Influenza Vacc ine (#1) [facility] Comment on above: Postponed from 01/07 (Declined at this time) Start: 11-02-2024 End: 11-02-2024 Patient encounter procedure 11/02/2024 1:40 PM EDT Office Visit Internal Medicine [place] [address] [facility] [place] [id number] Koki Worthington MD [address] [place], [place] [phone] 3 month follow up [facility] Comment on above: 3 month follow up Start: 10-20-2024 BP Controlled (<130/80) BP Controlle d (<130/80) [facility] Start: 10-16-2024 End: 01-15-2025 Lipid 1996 panel - Serum or Plasma LIPID PANEL, FASTING Lab Routine Hyperlipidemia, mixed Expected: 10/16/2024, Expires: 01/15/2025 [facility] Work Phone: Comment on above: Expected: 10/16/2024 , Expires: 01/15/2025 Start: 09-20-2024 End: 09-20-2024 Patient encounter procedure 09/20/2024 8:00 AM EDT Office Visit Cardiology [address] [place], [place] [phone] Pre-syncope [R55] Cardiology Comment on above: Pre-syncope [R55] Start: 09-13-2024 Screening for malign ant neoplasm of breast [facility] Start: 09-06-2024 End: 12-06-2024 25-hydroxyvitamin D3 [Mass/volume] in Serum or Plasma [facility] Comment on above: Expected: 09/06/2024 , Expires: 12/06/2024 Start: 09-06-2024 BP Controlled (<130/80) BP Controlle d (<130/80) [facility] Start: 09-06-2024 End: 12-06-2024 Cobalamin (Vitamin B12) [Mass/volume] in Serum or Plasma [facility] Comment on above: Expected: 09/06/2024 , Expires: 12/06/2024 Start: 09-06-2024 End: 12-06-2024 Comprehensive metabolic 2000 panel - Serum or Plasma [facility] Comment on above: Expected: 09/06/2024 , Expires: 12/06/2024 Start: 09-06-2024 End: 12-06-2024 Magnesium [Mass/volume] in Serum or Plasma [facility] Comment on above: Expected: 09/06/2024 , Expires: 12/06/2024 Start: 09-06-2024 End: 12-06-2024 Thyrotropin [Units/volume] in Serum or Plasma [facility] Comment on above: Expected: 09/06/2024 , Expires: 12/06/2024 Start: 08-15-2024 BP Controlled (<130/80) BP Controlle d (<130/80) [facility] Start: 08-09-2024 End: 08-09-2024 Nursing evaluation of patient and report 08/09/2024 8:00 AM EDT Nurse Visit Family Medicine [place] [address] [facility] [place] [address] Nurse Al [address] [place] [address] Hep B #2 [facility] Comment on above: Hep B #2 Start: 08-06-2024 Hepatitis B Vaccine (2 of 3 - 19+ 3-dose series) Hepatitis B Vaccine (2 of 3 - 19+ 3-dose series) [facility] Start: 08-04-2024 Annual PCP Team Entry Processor jacquie Disease Visit Annual PCP Team Chronic Disease Visit [facility] Start: 08-02-2024 End: 08-02-2024 Patient encounter procedure 08/02/2024 2:00 PM EDT Office Visit Internal Medicine [place] [address] [place] [address] Briana Leggett APRN.MEDIA RELATIONS DIRECTOR [address] [facility] [place] [address] 1 week follow up [facility] Comment on above: 1 week follow up Start: 07-30-2024 Hepb vaccine adult 3 dose schedule for im use HEP B VACCINE, 3-DOSE, AGE 20+ YR (ENGERIX-B, RECOMBIVAX HB) Immunization/Injection Routine Need for vaccination Expected: 07/30/2024 (Approximate) [facility] Comment on above: Expected: 07/30/2024 (Approximate) Start: 07-14-2024 BP Controlled (<130/80) BP Controlle d (<130/80) [facility] Start: 07-09-2024 End: 07-09-2024 Nursing evaluation of patient and report 07/09/2024 8:15 AM EST Nurse Visit Family [facility] [address] [facility] [place] [address] Nurse, Al [address] [facility] [place] [address] Hep B and Pneumonia shot Family [facility] Comment on above: Hep B and Pneumonia shot Start: 06-16-2024 BP Controlled (<130/80) BP Controlle d (<130/80) [facility] Start: 05-22-2024 End: 05-22-2024 Patient encounter procedure 05/22/2024 8:00 AM EST Appointment Radiology [address] [facility] [place] [address] Radiology Start: 05-08-2024 End: 08-07-2024 CBC W Auto Differential panel - Blood COMPLETE BLOOD COUNT AND DIFFERENTIAL Lab Routine Paroxysmal tachycardia (HCC) Expected: 05/08/2024, Expires: 08/07/2024 [facility] Comment on above: Expected: 05/08/2024 , Expires: 08/07/2024 Start: 05-08-2024 End: 08-07-2024 Comprehensive metabolic 2000 panel - Serum or Plasma COMPREHENSIVE METABOLIC PANEL Lab Routine Paroxysmal tachycardia (HCC) Expected: 05/08/2024, Expires: 08/07/2024 [facility] Comment on above: Expected: 05/08/2024 , Expires: 08/07/2024 Start: 05-08-2024 End: 08-07-2024 Ferritin [Mass/volume] in Serum or Plasma FERRITIN Lab Routine Paroxysmal tachycardia (HCC) Expected: 05/08/2024, Expires: 08/07/2024 [facility] Comment on above: Expected: 05/08/2024 , Expires: 08/07/2024 Start: 05-08-2024 End: 08-07-2024 Iron and Iron binding capacity panel - Serum or Plasma IRON AND TIBC Lab Routine Paroxysmal tachycardia (HCC) Expected: 05/08/2024, Expires: 08/07/2024 [facility] Comment on above: Expected: 05/08/2024 , Expires: 08/07/2024 Start: 05-08-2024 End: 08-07-2024 Thyrotropin [Units/volume] in Serum or Plasma THYROID STIMULATING HORMONE Lab Routine Paroxysmal tachycardia (HCC) Expected: 05/08/2024, Expires: 08/07/2024 [facility] Comment on above: Expected: 05/08/2024 , Expires: 08/07/2024 Start: 05-08-2024 End: 08-07-2024 Thyroxine (T4) free [Mass/volume] in Serum or Plasma T4 FREE/FREE THYROXINE Lab Routine Paroxysmal tachycardia ([facility]) Expected: 05/08/2024, Expires: 08/07/2024 [facility] Comment on above: Expected: 05/08/2024 , Expires: 08/07/2024 Start: 05-08-2024 End: 08-07-2024 Triiodothyronine (T3) Free [Mass/volume] in Serum or Plasma T3, FREE Lab Routine Paroxysmal tachycardia (HCC) Expected: 05/08/2024, Expires: 08/07/2024 [facility] Comment on above: Expected: 05/08/2024 , Expires: 08/07/2024 Start: 05-08-2024 End: 05-08-2024 Patient encounter procedure 05/08/2024 8:00 AM EST Office Visit Family [facility] [address] [place], [place] [address] Surya Bishop PA-C [address] [place], [place] [phone] 3 month follow up [facility] Comment on above: 3 month follow up Start: 05-07-2024 End: 05-07-2024 Patient encounter procedure 05/07/2024 8:40 AM EST Office Visit Internal Medicine [place] [address] [place] [address] Koki Worthington MD [address] [place] [address] 3 month follow up Internal [facility] [place] Comment on above: 3 month follow up Start: 04-12-2024 End: 04-12-2024 ambulatory 04/12/2024 9:00 AM EST Treatment [facility] [address] [place] [address] Hue Rucker SLP [address] [place] [address] [facility] Start: 03-20-2024 End: 03-20-2024 Patient encounter procedure 03/20/2024 11:15 AM EST Office Visit [facility] [address] [place] [address] [place] [address] [place] [address] [facility] Start: 03-10-2024 BP Controlled (<130/80) BP Controlle d (<130/80) [facility] Start: 03-01-2024 End: 03-01-2024 Telemedicine consultation with patient 03/01/2024 9:00 AM EDT Telemedicine Clinical Support [facility] [address] [place] [address] Hue Rucker, LOTTERY OFFICE MANAGER [address] [place] [address] [facility] Start: 02-28-2024 End: 02-28-2024 Patient encounter procedure 02/28/2024 8:20 AM EDT Office Visit OB/Gynecology [address] [place] [address] Nga Michel MD [address] [place] [address] Annual OB/Gynecology Comment on above: Annual Start: 02-15-2024 End: 02-15-2024 Patient encounter procedure 02/15/2024 10:50 AM EDT Office Visit OB/Gynecology [address] [place] [address] Nga Michel MD [address] [place] [address] check iud OB/Gynecology Comment on above: check iud Start: 02-06-2024 End: 02-06-2024 Patient encounter procedure 02/06/2024 9:20 AM EDT Office Visit Internal Medicine [place] [address] [place] [address] Briana Leggett APRN.MEDIA RELATIONS DIRECTOR [address] [place] [address] 6 month follow up Internal Medicine [place] Comment on above: 6 month follow up Start: 02-05-2024 Annual PCP Team Entry Processor jacquie Disease Visit Annual PCP Team Chronic Disease Visit [facility] Start: 02-05-2024 BP Controlled (<130/80) BP Controlle d (<130/80) [facility] Start: 01-13-2024 End: 01-13-2024 Patient encounter procedure 01/13/2024 9:00 AM EDT Office Visit OB/Gynecology [address] [place] [address] Nga Michel MD [address] [place] [address] Dysmenorrhea [N94.6] OB/Gynecology Comment on above: Dysmenorrhea [N94.6] Start: 01-08-2024 COVID-19 (2023-2 5 season) COVID-19 ( season) [facility] Start: 01-08-2024 COVID-19 Vaccine ( season) COVID-19 Vaccine ( season) [facility] Start: 01-08-2024 COVID-19 Vaccine ( season) COVID-19 Vaccine ( season) [facility] Start: 01-08-2024 FLU (#1) FLU (#1) [facility] Start: 01-08-2024 Influenza vaccination C [facility] Start: 12-14-2023 End: 03-14-2024 Herpes simplex virus+Varicella zoster virus DNA [Presence] in Unspecified specimen by RISHABH with probe detection [facility] Work Phone: Comment on above: Expected: 12/14/2023 , Expires: 03/14/2024 Start: 10-21-2023 End: 10-21-2023 Patient encounter procedure 10/21/2023 9:45 AM EDT Office Visit General Surgery [address] [facility] [place] [place] [address] Conor Brand MD [address] [address] Nipple discharge [N64.52] General Surgery Comment on above: Nipple discharge [N6 4.52] Start: 09-23-2023 End: 10-07-2023 COVID & INFLUENZA A/B & RSV NAAT, ROUTINE [facility] Work Phone: Comment on above: Expected: 09/23/2023 , Expires: 10/07/2023 Start: 09-14-2023 End: 09-14-2023 Patient encounter procedure 09/14/2023 9:00 AM EDT Appointment Mammogram [address] [facility] [place] [address] Nipple discharge [N64.52] Mammogram Comment on above: Nipple discharge [N6 4.52] Start: 09-07-2023 End: 12-07-2023 Prolactin [Mass/volume] in Serum or Plasma PROLACTIN Lab Routine Nipple discharge Expected: 09/07/2023, Expires: 12/07/2023 [facility] Comment on above: Expected: 09/07/2023 , Expires: 12/07/2023 Start: 08-05-2023 ANNUAL PCP TEAM AMBULATORY ANALYST JACQUIE DISEASE VISIT ANNUAL PCP TEAM CHRONIC DISEASE VISIT [facility] Start: 08-05-2023 COVID-19 VACCINE (#1) COVID-19 VACCI NE (#1) [facility] Comment on above: Postponed from 12/30 (Declined at this time) Start: 08-05-2023 HEPATITIS B (1 of 3 - 3-dose series) HEPATITIS B (1 of 3 - 3-dose series) [facility] Comment on above: Postponed from 07/02 (Declined at this time) Start: 08-05-2023 Hepatitis B Vaccine (1 of 3 - 19+ 3-dose series) Hepatitis B Vaccine (1 of 3 - 19+ 3-dose series) [facility] Comment on above: Postponed from 07/02 (Declined at this time) Start: 08-05-2023 Hepatitis B Vaccine (1 of 3 - 3-dose series) Hepatitis B Vaccine (1 of 3 - 3-dose series) [facility] Comment on above: Postponed from 07/02 (Declined at this time) Start: 08-05-2023 PNEUMOCOCCAL (2 - PCV) PNEUMOCOCCAL (2 - PCV) [facility] Comment on above: Postponed from 01/03 (Declined at this time) Start: 08-05-2023 Pneumococcal vaccination [facility] Comment on above: Postponed from 01/03 (Declined at this time) Postponed from 04/20 (Declined at this time) Start: 07-19-2023 End: 10-18-2023 Basic metabolic 2000 panel - Serum or Plasma BASIC METABOLIC PNL Lab Routine Essential hypertension Expected: 07/19/2023, Expires: 10/18/2023 [facility] Work Phone: Comment on above: Expected: 07/19/2023 , Expires: 10/18/2023 Start: 07-19-2023 End: 10-18-2023 Lipid 1996 panel - Serum or Plasma LIPID PANEL BASIC Lab Routine Hyperlipidemia, mixed Expected: 07/19/2023, Expires: 10/18/2023 [facility] Work Phone: Comment on above: Expected: 07/19/2023 , Expires: 10/18/2023 Start: 07-10-2023 Diabetes mellitus screening Diabetes Screening [facility] Start: 2023 Screening for malign ant neoplasm of breast Mammogram Screening [facility] Start: 05-09-2023 Behavioral Health Screening Behavioral Health Screening [facility] Start: 05-09-2023 Depression Assessment Depression Ass essment [facility] Start: 04-20-2023 Pneumococcal vaccination Pneum ococcal Vaccine (2 of 2 - PCV) [facility] Start: 04-20-2023 Pneumococcal Vaccine : Pediatrics (0 to 5 Years) and At-Risk Patients (6 to 64 Years) (2 of 2 - PCV) Pneumococcal Vaccine: Pediatrics (0 to 5 Years) and At-Risk Patients (6 to 64 Years) (2 of 2 - PCV) [facility] Start: 03-12-2023 BP CONTROLLED (<130/80) BP CONTROLLE D (<130/80) [facility] Start: 01-26-2023 Patient referral [facility] Work Phone: Start: 01-18-2023 ANNUAL PCP TEAM AMBULATORY ANALYST JACQUIE DISEASE VISIT ANNUAL PCP TEAM CHRONIC DISEASE VISIT [facility] Start: 01-18-2023 End: 03-20-2023 Basic metabolic 2000 panel - Serum or Plasma BASIC METABOLIC PNL Lab Routine Essential hypertension Expected: 01/18/2023, Expires: 03/20/2023 [facility] Work Phone: Comment on above: Expected: 01/18/2023 , Expires: 03/20/2023 Start: 01-18-2023 BP CONTROLLED (<130/80) BP CONTROLLE D (<130/80) [facility] Start: 01-18-2023 End: 03-20-2023 Lipid 1996 panel - Serum or Plasma LIPID PANEL BASIC Lab Routine Hyperlipidemia, mixed Expected: 01/18/2023, Expires: 03/20/2023 [facility] Work Phone: Comment on above: Expected: 01/18/2023 , Expires: 03/20/2023 Start: 01-17-2023 Adult depression scr eening assessment DEPRESSION SCREENING [facility] Start: 01-07-2023 Covid-19 Vaccine ( season) Covid-19 Vaccine ( season) [facility] Start: 01-07-2023 Influenza vaccination C [facility] Start: 12-04-2022 BP CONTROLLED (<130/80) BP CONTROLLE D (<130/80) [facility] Start: 10-16-2022 ANNUAL PCP TEAM AMBULATORY ANALYST JACQUIE DISEASE VISIT ANNUAL PCP TEAM CHRONIC DISEASE VISIT [facility] Start: 10-16-2022 BP CONTROLLED (<130/80) BP CONTROLLE D (<130/80) [facility] Start: 10-14-2022 Adult depression scr eening assessment DEPRESSION SCREENING [facility] Start: 09-19-2022 BP CONTROLLED (<130/80) BP CONTROLLE D (<130/80) [facility] Start: 09-15-2022 Patient referral [facility] Work Phone: Start: 09-10-2022 Adult depression scr eening assessment DEPRESSION SCREENING [facility] Start: 08-04-2022 End: 10-04-2022 Comprehensive metabolic 2000 panel - Serum or Plasma COMP METABOLIC PANEL Lab Routine Essential hypertension Hyperlipidemia, mixed Expected: 08/04/2022, Expires: 10/04/2022 [facility] Work Phone: Comment on above: Expected: 08/04/2022 , Expires: 10/04/2022 Start: 06-24-2022 ANNUAL PCP TEAM AMBULATORY ANALYST JACQUIE DISEASE VISIT ANNUAL PCP TEAM CHRONIC DISEASE VISIT [facility] Start: 06-14-2022 Adult depression scr eening assessment DEPRESSION SCREENING [facility] Start: 05-09-2022 DEPRESSION ASSESSMENT DEPRESSION ASS ESSMENT [facility] Start: 01-07-2022 Influenza vaccination INFLUENZA (#1) [facility] Start: 11-25-2021 COVID-19 VACCINE (#1) COVID-19 VACCI NE (#1) [facility] Comment on above: Postponed from 07/02 (Declined at this time) Postponed from 12/30 (Declined at this time) Start: 11-25-2021 COVID-19 VACCINE (1) COVID-19 VACCIN E (1) [facility] Comment on above: Postponed from 07/02 (Declined at this time) Start: 11-15-2021 Patient referral [facility] Work Phone: Start: 05-09-2021 DEPRESSION ASSESSMENT DEPRESSION ASS ESSMENT [facility] Start: 06-10-2020 HPV TESTING HPV TESTING [facility] Start: 01-08-2020 FLU (#1) FLU (#1) [facility] Start: 01-03-2013 PNEUMOCOCCAL (2 - PCV) PNEUMOCOCCAL (2 - PCV) [facility] Start: 2010 HPV Vaccine (1 - 3-d ose SCDM series) HPV Vaccine (1 - 3-dose SCDM series) [facility] Start: 2004 Microscopic observat ion Cyto stain Nom (Cvx) Pap Smear [facility] Start: 2004 Screening for malign ant neoplasm of cervix HPV/Cotest [facility] Start: 2002 Hepatitis B (1 of 3 - Risk 3-dose series) [facility] Start: 2002 Hepatitis B Vaccine (1 of 3 - 19+ 3-dose series) Hepatitis B Vaccine (1 of 3 - 19+ 3-dose series) [facility] Start: 2002 Hepatitis B Vaccines (1 of 3 - 19+ 3-dose series) Hepatitis B Vaccines (1 of 3 - 19+ 3-dose series) [facility] Start: 2001 BP CONTROLLED (<130/80) BP CONTROLLE D (<130/80) [facility] Start: 2001 Depression Screening Depression Scre ening [facility] Start: 2001 Hepatitis C screening Hepatitis C Sc [facility] Start: 1999 MenB (1 of 2 - MenB 2-Dose Series Bexsero) MenB (1 of 2 - MenB 2-Dose Series Bexsero) [facility] Start: 1999 MenB (1 of 2 - MenB 2-Dose Series) MenB (1 of 2 - MenB 2-Dose Series) [facility] Start: 1996 Varicella (1 of 2 - 13+ 2-dose series) Varicella (1 of 2 - 13+ 2-dose series) [facility] Start: 1996 Varicella vaccination Varicell a Vaccines (1 of 2 - 13+ 2-dose series) [facility] Start: 1990 Tetanus Diphtheria a nd Pertussis Vaccines (1 - Tdap) Tetanus Diphtheria and Pertussis Vaccines (1 - Tdap) [facility] Start: 1984 Hepatitis A (1 of 2 - Risk 2-dose series) Hepatitis A (1 of 2 - Risk 2-dose series) [facility] Start: 1984 MMR (1 of 1 - Standa rd series) MMR (1 of 1 - Standard series) [facility] Start: 1984 Varicella (1 of 2 - 2-dose childhood series) Varicella (1 of 2 - 2-dose childhood series) [facility] Start: 1983 COVID-19 VACCINE (#1) COVID-19 VACCI NE (#1) [facility] Start: 1983 HEPATITIS B (1 of 3 - 3-dose series) HEPATITIS B (1 of 3 - 3-dose series) [facility] Start: 1983 HIV screening HIV Screening [facility] Start: 1983 Lipid panel Lipid Panel [facility] Start: 1983 Yearly Adult Physical Yearly Adult P [facility] Bacteria identified in Urine by Culture URINE CULTURE Microbiology Routine Urinary frequency Ordered: 03/17/2024 [facility] Work Phone: Comment on above: Ordered: 03/17/2024 Bacteria identified in Urine by Culture BACTERIAL CULTURE, URINE Microbiology Routine Dysuria Proteinuria, unspecified type 07/23/2024 1:09 PM EDT [facility] Bacteria identified in Urine by Culture BACTERIAL CULTURE, URINE Microbiology Routine Pre-syncope Other fatigue Hematuria, unspecified type 09/06/2024 9:45 AM EDT [facility] BACTERIAL VAGINOSIS NAAT BACTERI AL VAGINOSIS NAAT Lab Routine Acute vaginitis 06/16/2023 1:45 PM EST [facility] Work Phone: BACTERIAL VAGINOSIS NAAT BACTERI AL VAGINOSIS NAAT Lab Routine Vaginal itching 12/14/2023 11:18 AM EDT [facility] BACTERIAL VAGINOSIS NAAT BACTERI AL VAGINOSIS NAAT Lab Routine Vaginal discharge 03/05/2024 9:48 AM EDT [facility] MARTÍN/TRICHOMONAS NAAT MARTÍN /TRICHOMONAS NAAT Lab Routine Acute vaginitis 06/16/2023 1:45 PM [facility] Work Phone: MARTÍN/TRICHOMONAS NAAT MARTÍN /TRICHOMONAS NAAT Lab Routine Vaginal itching 12/14/2023 11:18 AM EDT [facility] MARTÍN/TRICHOMONAS NAAT MARTÍN /TRICHOMONAS NAAT Lab Routine Vaginal discharge 03/05/2024 9:48 AM EDT [facility] Chlamydia trachomatis+Neisseria gonorrhoeae DNA [Presence] in Unspecified specimen by RISHABH with probe detection GONORRHEA/CHLAMYDIA NAAT Lab Routine Acute vaginitis 06/16/2023 1:45 PM [facility] Work Phone: Chlamydia trachomatis+Neisseria gonorrhoeae DNA [Presence] in Unspecified specimen by RISHABH with probe detection GONORRHEA/CHLAMYDIA NAAT Lab Routine Vaginal itching 12/14/2023 11:18 AM EDT [facility] COVID & INFLUENZA A/ B & RSV PCR, ROUTINE COVID & INFLUENZA A/B & RSV PCR, ROUTINE Microbiology Routine URI, acute Ordered: 04/17/2024 [facility] Work Phone: Comment on above: Ordered: 04/17/2024 COVID & INFLUENZA A/ B & RSV PCR, ROUTINE COVID & INFLUENZA A/B & RSV PCR, ROUTINE Microbiology Routine Nasal congestion Ordered: 07/01/2024 [facility] Work Phone: Comment on above: Ordered: 07/01/2024 COVID & INFLUENZA A/ B & RSV PCR, ROUTINE COVID & INFLUENZA A/B & RSV PCR, ROUTINE Microbiology Routine URI, acute 07/15/2024 2:32 PM T [facility] Work Phone: End: 04-11-2023 Ct pelvis w/contrast material CT PELVIS W IVCON Radiology STAT Soft tissue mass 1 Occurrences starting 03/12/2022 until 04/11/2023 [facility] Work Phone: Comment on above: 1 Occurrences starti ng 03/12/2022 until 04/11/2023 End: 12-28-2019 Cytogenomic Microarray Analysis of Blood Cytogenomic Microarray Analysis of Blood Lab Routine For lab collect this frequency defaults to the next routine lab draw time. Routine times: 0600; 1100; 1400; 1900; 2200 for 1 Occurrences starting 12/28/2019 until 12/28/2019 [facility] Comment on above: For lab collect this frequency defaults to the next routine lab draw time. Routine times: 0600; 1100; 1400; 1900; 2200 for 1 Occurrences starting 12/28/2019 until 12/28/2019 CYTOLOGY NON-TELESALES MANAGER CYTOLOGY NON-GY N Lab Routine Nipple discharge 10/21/2023 10:47 AM EDT [facility] Work Phone: End: 04-04-2025 DBT Breast - bilateral screening BELEN SCREENING W SANTINO Radiology Routine Encounter for screening mammogram for malignant neoplasm of breast 1 Occurrences starting 03/05/2024 until 04/04/2025 [facility] Work Phone: Comment on above: 1 Occurrences starti ng 03/05/2024 until 04/04/2025 ECG COMPLETE ECG COMPLETE ECG Routine Pre-syncope Other fatigue 09/06/2024 8:47 AM EDT [facility] End: 09-06-2025 Echocardiography ECHO Cardiology Routine Pre-syncope 1 Occurrences starting 09/06/2024 until 09/06/2025 [facility] Work Phone: Comment on above: 1 Occurrences starti ng 09/06/2024 until 09/06/2025 End: 05-07-2023 EPIL EEG ROUTINE EPIL EEG ROUTINE NEUROLOGY Routine Twitch Tic disorder 1 Occurrences starting 05/07/2022 until 05/07/2023 [facility] Work Phone: Comment on above: 1 Occurrences starti ng 05/07/2022 until 05/07/2023 End: 05-25-2024 Genetic Sendout: Grandparent sample for whole exome sequencing [facility] Work Phone: Comment on above: 1 Occurrences starti ng 05/25/2024 until 05/25/2024 Hepb vaccine adult 3 dose schedule for im use HEP B VACCINE, 3-DOSE, AGE 20+ YR (ENGERIX-B, RECOMBIVAX HB) Immunization/Injection Routine Need for vaccination Ordered: 2024 [facility] Work Phone: Comment on above: Ordered: 2024 Insertion intrauteri ne device iud INSERT INTRAUTERINE DEVICE Procedures Routine Dysmenorrhea Ordered: 12/14/2023 [facility] Comment on above: Ordered: 12/14/2023 End: 10-06-2024 MG Breast - bilateral Diagnostic BELEN DIAGNOSTIC BILATERAL Radiology Routine Nipple discharge 1 Occurrences starting 09/07/2023 until 10/06/2024 [facility] Comment on above: 1 Occurrences starti ng 09/07/2023 until 10/06/2024 Mri any jt upper ext remity w/o contrast matrl MRI SHOULDER WO IVCON RT Radiology Routine Acute pain of right shoulder Traumatic tear of right rotator cuff, unspecified tear extent, initial encounter Ordered: 04/12/2022 [facility] Work Phone: Comment on above: Ordered: 04/12/2022 OUTSIDE VENDOR CARDI AC OUTPATIENT EXTENDED RHYTHM RECORDING (WITHOUT TELEMETRY) OUTSIDE VENDOR CARDIAC OUTPATIENT EXTENDED RHYTHM RECORDING (WITHOUT TELEMETRY) Holter Routine Pre-syncope Paroxysmal tachycardia (HCC) Ordered: 09/06/2024 [facility] Comment on above: Ordered: 09/06/2024 PAP FLUID CERVICAL SCREENING PAP FLUID CERVICAL SCREENING Lab Routine Soft tissue mass 03/12/2022 1:17 PM EDT [facility] Work Phone: Patient Education [facility] Work Phone: Patient referral [facility] Work Phone: Pneumococcal vaccination PNEUMOC OCCAL VACCINE, 20 VALENT (PREVNAR 20) Immunization/Injection Routine Encounter for immunization Ordered: 2024 [facility] Comment on above: Ordered: 2024 Urinalysis complete panel - Urine URINALYSIS, WITH MICROSCOPIC Lab Routine Dysuria Proteinuria, unspecified type 07/23/2024 1:09 PM EDT [facility] Work Phone: Urinalysis complete panel - Urine URINALYSIS, WITH MICROSCOPIC Lab Routine Pre-syncope Other fatigue Hematuria, unspecified type 09/06/2024 9:45 AM EDT [facility] End: 10-07-2024 US Breast - right limited US BREAST LTD RIGHT Radiology Routine Nipple discharge 1 Occurrences starting 09/07/2023 until 10/07/2024 [facility] Work Phone: Comment on above: 1 Occurrences starti ng 09/07/2023 until 10/07/2024 End: 07-18-2023 US MUSCLE RT US MUSCLE RT Radiology Routine Arm swelling 1 Occurrences starting 06/18/2022 until 07/18/2023 [facility] Work Phone: Comment on above: 1 Occurrences starti ng 06/18/2022 until 07/18/2023 End: 07-18-2023 XR CHEST 1V FRONTAL PORT XR CHEST 1V FRONTAL PORT Radiology Routine Arm swelling 1 Occurrences starting 06/18/2022 until 07/18/2023 [facility] Work Phone: Comment on above: 1 Occurrences starti ng 06/18/2022 until 07/18/2023 End: 06-07-2025 XR Chest PA and Lateral XR CHEST 2V FRONTAL/LAT Radiology Routine Bacterial pneumonia 1 Occurrences starting 05/08/2024 until 06/07/2025 [facility] Work Phone: Comment on above: 1 Occurrences starti ng 05/08/2024 until 06/07/2025 [facility] Immunizations Immunization Date Immunization Notes Care Provider Jazmyn florian 07-09-2024 hepatitis B vaccine, adult dosage Al Nurse Work Phone: [facility] 07-09-2024 pneumococcal conjuga te (PCV20) vaccine, 20 valent (PREVNAR 20) Al Nurse Work Phone: [facility] 04-20-2022 influenza, injectabl e, quadrivalent, preservative free Clifton Schneider MD Work Phone: [facility] 04-20-2022 pneumococcal polysaccharide vaccine, 23 valent Clifton Schneider MD Work Phone: [facility] 04-20-2022 influenza virus vacc ine, unspecified formulation Koki Worthington MD Work Phone: [facility] 03-02-2021 influenza, injectabl e, quadrivalent, contains preservative Chela Chicorelli DO Work Phone: [facility] Work Phone: 03-06-2020 influenza, injectabl e, quadrivalent, preservative free Chela Chicorelli DO Work Phone: [facility] Work Phone: 01-23-2020 influenza virus vacc ine, unspecified formulation Chela Chicorelli DO Work Phone: [facility] Work Phone: 06-13-2018 influenza, injectabl e, quadrivalent, contains preservative Chela Chicorelli DO Work Phone: [facility] 06-13-2018 tetanus toxoid, redu yoshi diphtheria toxoid, and acellular pertussis vaccine, adsorbed Chela Chicorelli DO Work Phone: [facility] 02-26-2015 influenza, injectabl e, quadrivalent, preservative free Chela Chicorelli DO Work Phone: [facility] 02-15-2013 influenza virus vacc ine, unspecified formulation Chela Chicorelli DO Work Phone: [facility] 01-04-2012 pneumococcal polysaccharide vaccine, 23 valent Chela Chicorelli DO Work Phone: [facility] Work Phone: 01-04-[address] Rubio Worthington Work Phone: [facility] Work Phone: 01-04-2012 pneumococcal vaccine , unspecified formulation Dr. Koki Worthington Work Phone: [facility] 03-08-2011 influenza virus vacc ine, unspecified formulation Chela Sheridan DO Work Phone: [facility] 02-04-2010 influenza virus vacc ine, unspecified formulation Chela Sheridan DO Work Phone: [facility] Work Phone: 11-07-2008 tuberculin skin test ; purified protein derivative solution, intradermal Nga Michel MD Work Phone: [facility] Work Phone: 12-20-1995 measles, mumps and rubella virus vaccine Chela Sheridan DO Work Phone: [facility] Work Phone: Payers Date Payer Category Payer Self-pay [id number] 2023 Medicaid (Managed Care) [facility] [employer] AND DISABLED [id number] 2022 Unknown [id number]. [id number] 2012 Unknown [id number] 2012 Unknown [id number] 2010 Medicaid [facility] MEDICAID [id number] 2010-Present [phone] [address] [place] [address] Medicaid [id number] 2010 Medicaid [id number] 1983 Unknown [id number] 2.16.840.1.425585.3.579.2. 651 1983 Unknown [id number] 2.16.840.1.478403.3.579.2. 651 1983 Unknown [id number] 2.16.840.1.254230.3.579.2. 651 1983 Unknown [id number] 2.16.840.1.580179.3.579.2. 651 1983 Unknown [id number] 2.16.840.1.792530.3.579.2. 651 1983 Unknown [id number] 2.16.840.1.969839.3.579.2. 651 1983 Unknown [id number] 2.16.840.1.043821.3.579.2. 1245 1983 Unknown [id number] 2.16.840.1.816828.3.579.2. 1245 1983 Unknown [id number] 2.16.840.1.844078.3.579.2. 1245 1983 Unknown [id number] 2.16.840.1.192304.3.579.2. 1244 1983 Unknown [id number] 2.16.840.1.340005.3.579.2. 1244 1983 Unknown [id number] 2.16.840.1.666316.3.579.2. 479 Unknown [id number] 2.16.840.1.226627.3.579.2. 462 Unknown [id number] 2.16.840.1.641640.3.579.2. 462 Unknown [id number] 2.16.840.1.862384.3.579.2. 462 Unknown [id number] 2.16.840.1.753840.3.579.2. 462 Unknown [id number] 2.16.840.1.320849.3.579.2. 462 Unknown [id number] 2.16.840.1.877496.3.579.2. 462 Unknown [id number] 2.16.840.1.781644.3.579.2. 462 Unknown [id number] 2.16.840.1.112577.3.579.2. 462 Unknown [id number] 2.16840.1.154388.3.579.2. 462 Social History Date Type Detail Facility Tobacco smoking stat [facility] Unknown if ever smoked [facility] Start: 1983 Sex Assigned At Not on file [facility] Start: 07-21-2021 End: 03-20-2024 Exposure to SARS-CoV-2 (event) Not sure [facility] Start: 10-18-2018 End: 11-08-2024 Tobacco smoking status NVIS Ex-smoker [facility] Work Phone: Start: 01-24-2000 End: 07-03-2020 History of tobacco use Current smoker [facility] Work Phone: Start: 01-24-2000 End: 07-03-2020 History of tobacco use Cigarette Smoker [facility] Work Phone: Start: 10-18-2018 End: 08-02-2024 Cigarettes smoked current (pack per day) - Reported 0.5 [facility] Start: 10-18-2018 End: 02-15-2024 Tobacco use and exposure Former smokeless tobacco user [facility] Work Phone: End: 08-18-2018 History of tobacco use User of smokeless tobacco [facility] Work Phone: Start: 07-31-2021 End: 12-04-2021 Alcohol intake Current non-drinker of alcohol (finding) [facility] Start: 12-31-2019 End: 08-03-2022 History SDOH Alcohol Frequency 1 [facility] Start: 04-15-2015 History SDOH Alcohol Comment None since 2011 [facility] Start: 06-21-2019 End: 08-03-2022 History SDOH Social Connections Phone 2 [facility] Start: 06-21-2019 End: 10-31-2019 History SDOH Social Connections Meetings 98 [facility] Start: 06-21-2019 End: 11-01-2019 History SDOH Social Connections Living 4 [facility] Start: 07-21-2020 End: 08-03-2022 History SDOH Physical Activity DPW 0 [facility] Start: 06-20-2019 Education 21 [facility] Start: 07-09-2020 End: 03-12-2022 Tobacco Comment vapes 3 mg of nicotine [facility] Start: 1985 Sex Assigned At Female [facility] Start: 09-11-2021 End: 06-23-2023 Tobacco smoking status NHIS Unknown if ever smoked [facility] Start: 12-05-2014 None [facility] Start: 12-05-2014 None;- [facility] Start: 12-05-2014 Spouse/ Significant Other [facility] Start: 03-01-2019 Cigarettes [facility] Start: 10-06-2021 End: 01-18-2022 Exposure to SARS-CoV-2 (event) Unable to assess [facility] Start: 08-03-2022 History SDOH Physical Activity MPS 3 [facility] Start: 08-03-2022 End: 08-02-2024 Social connection and isolation panel [facility] Do you belong to any clubs or organizations such as denominational groups, unions, fraternal or athletic groups, or school groups? No [facility] Start: 04-09-2012 Attends Club or Organization Meetings Not on file [facility] Are you now , , , , never or living with a partner? [facility] How often to you hav e a drink containing alcohol? Never [facility] How hard is it for y ou to pay for the very basics like food, housing, medical care, and heating Not very hard [facility] (I/We) worried wheth er (my/our) food would run out before (I/we) got money to buy more. Never true [facility] Start: 09-01-2018 Gender identity Identifies as female gender (finding) [facility] Start: 07-05-2020 Sexual orientation Choose not to disclose [facility] Do you feel stress - tense, restless, nervous, or anxious, or unable to sleep at night because your mind is troubled all the time - these days [OSQ] Rather much [facility] (I/We) worried wheth er (my/our) food would run out before (I/we) got money to buy more. Sometimes true [facility] How hard is it for y ou to pay for the very basics like food, housing, medical care, and heating Somewhat hard [facility] In the past 12 month s, was there a time when you were not able to pay the mortgage or rent on time? Yes [facility] Start: 12-14-2023 End: 11-08-2024 Alcohol intake Ex-drinker (finding) [facility] Start: 02-14-2024 Tobacco smoking status NHIS Smokes tobacco daily [facility] Work Phone: Start: 02-14-2024 End: 11-08-2024 Tobacco use and exposure Smokeless tobacco non-user [facility] Work Phone: How hard is it for y ou to pay for the very basics like food, housing, medical care, and heating Hard [facility] Medical Equipment Procedure Code Equipment Code [...] Goal Desired Activity /State Personal health goal Personal health goal Functional Status Date Assessment Result Facility 11-02-2024 Total score [AUDIT-C] 0 11/03/19 9:12 AM EDT User Katherine [facility] 11-02-2024 How often to you hav e a drink containing alcohol? Never 11/02/2024 9:12 AM EDT User Katherine Never [facility] 11-02-2024 Functional status Patient does n ot drink 11/02/2024 9:12 AM EDT UserKatherine Patient does not drink [facility] 11-02-2024 How often do you hav e 6 or more drinks on 1 occasion? Never 11/02/2024 9:12 AM EDT User Katherine Never [facility] 11-26-2014 Are you deaf, or do you have serious difficulty hearing No 11/26/2014 10:58 AM Isabel Gay Ma No [facility] 11-26-2014 Are you blind, or do you have serious difficulty seeing, even when wearing glasses No 11/26/2014 10:58 AM Isabel Gay Ma [facility] 11-26-2014 Do you have serious difficulty walking or climbing stairs No 11/26/2014 10:58 AM Isabel Gay Ma [facility] 11-26-2014 Do you have difficul ty dressing or bathing No 11/26/2014 10:58 AM Isabel Gay Ma [facility] 11-26-2014 Because of a physica l, mental, or emotional condition, do you have difficulty doing errands alone such as visiting a physician's office or shopping No 11/26/2014 10:58 AM Isabel Gay Ma [facility] Mental Status Date Assessment Result Facility 09-11-2021 Cognitive function Level Of Cons ciousness Awake;Alert;Appropriate;Fol lows Commands [facility] Work Phone: 11-26-2014 Because of a physica l, mental, or emotional condition, do you have serious difficulty concentrating, remembering, or making decisions No 11/26/2014 10:58 AM EDT Isabel Zhu Ma No [facility] Clinical Notes 07-29-2015 to 12-26-2024 Telephone Encounter - Lucila Recinos LPN - 12/26/2024 1:25 PM EDTTelephone Encounter - Lucila Recinos LPN - 12/26/2024 1:25 PM EDTPatient InstructionsPatient Instructions Note Date & Type Note Facility 12-26-2024 Telephone encounter Note Patient asking to go to different pharmacy. Patient has been identified by name and date of : Yes Patient phones for refill(s): Requested Prescriptions Pending Prescriptions Disp Refills montelukast (SINGULAIR) 10 mg tablet 90 tablet 1 Sig: Take 1 tablet by mouth daily at bedtime. Date of last office visit in primary care: 11/05/2024 Date of next office visit in primary care: 12/26/2024 Please advise. Thank you. Lucila Recinos LPN. [facility] 12-26-2024 Miscellaneous Notes Patient asking to go to different pharmacy. Patient has been identified by name and date of : Yes Patient phones for refill(s): Requested Prescriptions Pending Prescriptions Disp Refills montelukast (SINGULAIR) 10 mg tablet 90 tablet 1 Sig: Take 1 tablet by mouth daily at bedtime. Date of last office visit in primary care: 11/05/2024 Date of next office visit in primary care: 12/26/2024 Please advise. Thank you. Lucila Recinos LPN. documented in this encounter [facility] 12-26-2024 Telephone encounter Note Patient has been identified by name and date of : Yes Patient phones for refill(s): Requested Prescriptions Pending Prescriptions Disp Refills albuterol HFA (PROVENTIL HFA, VENTOLIN HFA) 90 mcg/actuation inhaler 18 g 3 Sig: Inhale 2 puffs as instructed every 4 hours as needed. Date of last office visit in primary care: 11/05/2024 Date of next office visit in primary care: 05/07/2025 Please advise. Thank you. Lucila Recinos LPN. [facility] 12-26-2024 Miscellaneous Notes Patient has been identified by name and date of : Yes Patient phones for refill(s): Requested Prescriptions Pending Prescriptions Disp Refills albuterol HFA (PROVENTIL HFA, VENTOLIN HFA) 90 mcg/actuation inhaler 18 g 3 Sig: Inhale 2 puffs as instructed every 4 hours as needed. Date of last office visit in primary care: 11/05/2024 Date of next office visit in primary care: 05/07/2025 Please advise. Thank you. Lucila Recinos LPN. documented in this encounter [facility] 11-28-2024 Telephone encounter Note Patient called [facility] to report she would like to move forward with implantable loop recorder. Nga Adams LPN [facility] 11-28-2024 Miscellaneous Notes Patient called [facility] to report she would like to move forward with implantable loop recorder. Nag Adams LPN documented in this encounter [facility] 11-19-2024 Telephone encounter Note The patient [...] Ackerman RN November 19, 2024 4:25 PM [facility] 11-19-2024 Miscellaneous Notes The patient has [...] 2024 4:25 PM documented in this encounter [facility] 11-08-2024 Clifton Cage MD - 11/08/2024 3:12 PM EDT We [...] contact our office. documented in this encounter [facility] 11-08-2024 History of Presen t illness Narrative PRIMARY CARE PHYSICIAN: Koki Worthington [address] [place] [address] Patient Care Team: Koki Worthington MD as PCP - General (Internal Medicine) Adore Miller APRN.CNP as Specialty Service Secretary (Cardiology) Briana Leggett APRN.CNP as Lead Network Engineer (Internal Medicine) Gio Holguin MD as Specialty Service Secretary (Cardiology) CHIEF COMPLAINT: Follow up for arrhythmia HISTORY OF PRESENT ILLNESS: Ms. Witt is a 39 year old female who presents today for a cardiovascular medicine follow-up visit. Recording using ambient AI software for draft documentation of the visit was discussed with the patient/authorized patient relations representative; all questions welcomed and answered. Patient/authorized patient relations representative agreed to proceed History from previous notes, edited as needed and/or generated by dictation with use of AI.: Patient Overview: Ms. Witt presents for repeat consultation for palpitations and intermittent tachycardia. She was evaluated by Dr. Schneider in the [facility] office outpatient clinic in July 2020 for the same issue. She is referred by the [facility]. When she was evaluated in [...] 02/03/2018 Sinus arrhythmia 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 seen on school lunch monitor Smoker 06/24/2010 Snoring 09/29/2009 Sleep study completed [...] SURGICAL HISTORY OF Right 03/07/2019 [facility] - right arm surgery SHOULDER SURGERY HX Left 01/26/2017 [facility] - Left shoulder surgery - repair [...] 20 mg by mouth. pyrroloquinoline quinone disod ([id number] QUINONE ORAL) albuterol HFA (PROVENTIL HFA, VENTOLIN [...] Sinus rhythm 77 bpm; normal conduction intervals (VA 140 ms, QRS 84 ms); QTc 418 ms; inferior T wave abnormality similar to previous EKGs I have personally reviewed the Electrocardiogram. I spent a total of 45 minutes on the date of the service which included preparing to see the patient, emjr-ev-schu patient care, completing clinical documentation, obtaining and/or [...] - Will send a note to the [facility] regarding the consideration of flecainide [...] Moderate documented in this encounter [facility] 11-08-2024 Note HNO ID: [id number] Author: CLIFTON SCHNEIDER MD Service: ? Author Type: Physician Type: Progress Notes Filed: 12/26/2024 18:57 Note Text: PRIMARY CARE PHYSICIAN: Koki Worthington [address] [place] [address] Patient Care Team: Koki Worthington MD as PCP - General (Internal Medicine) Adore Miller APRN.VELVET as Specialty Service Secretary (Cardiology) Briana Leggett APRN.VELVET as Lead Network Engineer (Internal Medicine) Gio Holguin MD as Specialty Service Secretary (Cardiology) CHIEF COMPLAINT: Follow up for arrhythmia HISTORY OF PRESENT ILLNESS: Ms. Witt is a 39 year old female who presents today for a cardiovascular medicine follow-up visit. Recording using ambient AI software for draft documentation of the visit was discussed with the patient/authorized patient relations representative; all questions welcomed and answered. Patient/authorized patient relations representative agreed to proceed History from previous notes, edited as needed and/or generated by dictation with use of AI.: Patient Overview: Ms. Witt presents for repeat consultation for palpitations and intermittent tachycardia. She was evaluated by Dr. Schneider in the [facility] office outpatient clinic in July 2020 for the same issue. She is referred by the [facility]. When she was evaluated in [...] abnormalities. Cardiac mon (more content not included)... [facility] 11-05-2024 Instructions Koki Worthington MD - 11/05/2024 8:59 AM EDT We discussed your recent health concerns and overall well-being: - You have experienced multiple infections since March, including COVID-19 (three times), influenza A, and a stomach virus. These were likely due to increased exposure at the hospital and [facility], as well as stress. You have been infection-free for the past two months. - Continue taking Emergen-C daily to support your immune system. 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 - Your blood pressure is [...] contact our office. documented in this encounter [facility] 11-05-2024 Note HNO ID: [id number] Author: KOKI WORTHINGTON MD Service: ? Author Type: Physician Type: Progress Notes Filed: 11/05/2024 13:23 Note Text: Reason for Visit Follow up NGUYEN Witt is a 39-year-old female with a history of asthma, complex regional pain syndrome, and tachycardia, presenting for follow-up. Bria reports a series of illnesses since March, including three episodes of COVID-19, influenza A, and a gastrointestinal virus. She attributes these infections to increased exposure in hospital settings and the [facility], where she has spent significant time due [...] nerves II-XII hemant (more content not included)... [facility] 11-05-2024 History of Presen t illness Narrative Reason for Visit Follow up HPI Bria Witt is a 39-year-old female with a history of asthma, complex regional pain syndrome, and tachycardia, presenting for follow-up. Bria reports a series of illnesses since March, including three episodes of COVID-19, influenza A, and a gastrointestinal virus. She attributes these infections to increased exposure in hospital settings and the [facility], where she has spent significant time due [...] excuse any unintended typographical errors. Recording using ambient [employer] software for draft documentation of the visit was discussed with the patient/authorized patient relations representative; all questions welcomed and answered. Patient/authorized patient relations representative agreed to proceed Koki Worthington MD documented in this encounter [facility] 10-19-2024 Evaluation note Diagnosis Onset Date Resolution Essential hypertension chronic Ju 2024 10:27am Hyperlipidemia chronic October 19, 2024 10:27am Palpitations chronic October 19, 2 025 10:27am PVC's (premature ventricular contractions) chronic October 19, 2024 10:27am [facility] Work Phone: [phone]) 346-665806-10-2025 NotePatient Outreach (INTMMN) BRIA WITT ([id number]) 1985 F Date Time Provider Department 10/16/24 KOKI WORTHINGTON INTMMN During your visit today, we recorded the [...] Date Reviewed: 09/06/2024 Reviewed by: Briana Leggett APRN.MEDIA RELATIONS DIRECTOR - Fully Assessed Visit Diagnosis:Hyperlipidemia, mixed [E78.2] Order(s):LIPID PANEL, FASTING [SQLIPB] Order #: [id number] FUTURE Prescriptions as of 10/19/2024 - albuterol [...] [M25.531] 05/06/2015 1 (more content not included)... [facility]05-31-2025 Telephone encounter Note* Telephone Encounter - Baljinder Fernández - 10/06/2024 9:04 AM EDT Scheduled with Leslie on 11/08/2024 [facility]05-31-2025 Miscellaneous Notes* Telephone Encounter - Baljinder Fernández - 10/06/2024 9:04 AM EDT Scheduled with Leslie on 11/08/2024 * Telephone Encounter - Briana Leggett APRN.CNP - 10/05/2024 1:01 PM EDT I have put in a cardiology consult. If she is willing to travel, she may be able to see a [facility] rolling up machine operator sooner then waiting to see one in [place]. Thank you Briana Leggett APRN.CNP * Telephone Encounter - Shawnee Sifuentes RN - 10/05/2024 9:37 AM EDT Pt called and is notified of providers results and instructions. Pt voices understanding. She states she sees Adore Miller PHOTOGRAPHIC EQUIPMENT MECHANIC with [facility]. She states he doesn't listen to her when she talks, and it's hard to get into them. She was asking if there was anyone the provider would recommend she go to. I let her know we have 2 Wireless Engineer here, but they are only here on Mondays and it takes a long time to get in. Shawnee Sifuentes RN * Telephone Encounter - Briana Leggett APRN.CNP - 10/05/2024 7:55 AM EDT There was a lot of symptomatic PVCs which are early ventricular contractions. These are not life threatening, but with the symptoms, I want her to follow up with cardiology. I know she has seen one in the past. Who is her rolling up machine operator and when did she last see them? Thank you Briana Leggett APRN.VELVET * Telephone Encounter - Cady Torres RN - 10/03/2024 9:39 AM EDT Patient asking if provider can advise on her recent school lunch monitor results when able. Thank you. Cady Torres RN [facility] Telephone encounter Note * Telephone Encounter - Briana Leggett APRN.CNP - 10/05/2024 1:01 PM EDT I have put in a cardiology consult. If she is willing to travel, she may be able to see a [facility] rolling up machine operator sooner then waiting to see one in [place]. Thank you Briana Leggett APRN.CNP [facility]05-30-2025 Telephone encounter Note* Telephone Encounter - Shawnee Sifuentes RN - 10/05/2024 9:37 AM EDT Pt called and is notified of providers results and instructions. Pt voices understanding. She states she sees Adore Miller PHOTOGRAPHIC EQUIPMENT MECHANIC with [facility]. She states he doesn't listen to her when she talks, and it's hard to get into them. She was asking if there was anyone the provider would recommend she go to. I let her know we have 2 Wireless Engineer here, but they are only here on Mondays and it takes a long time to get in. Shawnee Sifuentes RN [facility]05-30-2025 Telephone encounter Note* Telephone Encounter - Briana Leggett APRN.CNP - 10/05/2024 7:55 AM EDT There was a lot of symptomatic PVCs which are early ventricular contractions. These are not life threatening, but with the symptoms, I want her to follow up with cardiology. I know she has seen one in the past. Who is her rolling up machine operator and when did she last see them? Thank you Briana Leggett APRN.VELVET [facility]05-28-2025 Telephone encounter Note* Telephone Encounter - Cady Torres RN - 10/03/2024 9:39 AM EDT Patient asking if provider can advise on her recent school lunch monitor results when able. Thank you. Cady Torres RN [facility]05-02-2025 Telephone encounter Note* Telephone Encounter - Oumar Barahona RN - 09/07/2024 10:48 AM EDT Pt returned call and given provider's message below with verbalized understanding. Pt agreeable. [facility]05-02-2025 Miscellaneous Notes* Telephone Encounter - Oumar Barahona RN - 09/07/2024 10:48 AM EDT Pt returned call and given provider's message below with verbalized understanding. Pt agreeable. * Telephone Encounter - Raven Mina MA - 09/07/2024 10:18 AM EDT Left message for return call. * Telephone Encounter - Briana Leggett APRN.CNP - 09/07/2024 9:48 AM EDT Blood work and urine so far in acceptable ranges nad without concern. Vitamin d slightly low. Does she take a vitamin d supplement regularly or a multivitamin? If not I recommend taking a multivitamin daily that contains vitamin d. Take care Briana Leggett APRN.CNP [facility] Telephone encounter Note * Telephone Encounter - Raven Mina MA - 09/07/2024 10:18 AM EDT Left message for return call. [facility]05-02-2025 Telephone encounter Note* Telephone Encounter - Briana Leggett APRN.CNP - 09/07/2024 9:48 AM EDT Blood work and urine so far in acceptable ranges nad without concern. Vitamin d slightly low. Does she take a vitamin d supplement regularly or a multivitamin? If not I recommend taking a multivitamin daily that contains vitamin d. Take care Briana Leggett APRN.CNP [facility]05-01-2025 NoteHNO ID: [id number] Author: RAVEN MINA MA Service: ? Author Type: Seo Analyst Type: Progress Notes Filed: 09/06/2024 12:26 Note Text: EVENT MONITOR DISPOSABLE PATCH INSTRUCTIONS Patient Name: Bria Witt [facility] Number: [id number] Skin prepped and cleansed with alcohol Patch secured to prepped area Monitor Activated Serial #: [id number] Patient Instructed: Prescribed order timeframe Bathing guidelines Usage of event button and diary documentation Return of monitor at the end of prescribed order Call with problems [phone] or [phone] ext. [phone] Patient expresses a good understanding of instructions [facility] of Present illness Narrative* Raven Mina MA - 09/06/2024 9:55 AM EDT EVENT MONITOR DISPOSABLE PATCH INSTRUCTIONS Patient Name: Bria Witt [facility] Number: [id number] Skin prepped and cleansed with alcohol Patch secured to prepped area Monitor Activated Serial #: [id number] Patient Instructed: Prescribed order timeframe Bathing guidelines Usage of event button and diary documentation Return of monitor at the end of prescribed order Call with problems [phone] or [phone]. [phone] Patient expresses a good understanding of instructions Raven Mina MA * Briana Leggett APRN.CNP - 09/06/2024 9:01 AM EDT CC: Patient presents with: Recheck: Follow up fatigue, continuing to get worse HPI Bria Witt is a 39 year old female who presents today for fatigue and almost passed out a week ago. Recording using [employer] software for draft documentation of the visit was discussed with the patient/authorized patient relations representative; all questions welcomed and answered. Patient/authorized patient relations representative agreed to proceed Fatigue: - Extreme fatigue [...] to room and drink apple juice, which improvedsymptoms. - Suspects low blood sugar during the [...] 02/03/2018 Sinus arrhythmia 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 seen on school lunch monitor Smoker 06/24/2010 Snoring 09/29/2009 Sleep study completed [...] disease PAST SURGICAL HISTORY OF Right 03/07/2019 [facility] right arm surgery SHOULDER SURGERY HX Left 01/26/2017 [facility] - Left shoulder surgery - repair [...] 8 hours as needed for pain. Take withfood. omeprazole (PRILOSEC) 20 mg capsule TAKE 1 CAPSULE BY MOUTH 1/2 HOUR before breakfast Nebulizers 1 Each as needed. Nebulizer with accessories/tubing ubidecarenone (H2Q COQ10 ORAL) Take by mouth. 50mg x1 daily oxyCODONE-acetaminophen (PERCOCET) 5-325 mg tablet Take 1-2 tablets by mouth as directed. Every 4-6hours as needed for pain. nadolol (CORGARD) 20 [...] plan. Briana Leggett APRN.CNP [facility] Instructions* Patient Instructions* Briana Leggett APRN.CNP - 09/06/2024 9:03 AM [...] new or worsening symptoms (such as recurrent near- fainting, significant chestpain, or increased shortness of breath), please go directly to the emergency room. documented in this encounterMer[facility]-2025 NoteHNO ID: [id number] Author: BRIANA LEGGETT APRN.CNP Service: ? Author Type: Nurse Practitioner Type: Progress Notes Filed: 09/06/2024 12:26 Note Text: CC: Patient presents with: Recheck: Follow up fatigue, continuing to get worse HPI Bria Witt is a 39 year old female who presents today for fatigue and almost passed out a week ago. Recording using [employer] software for draft documentation of the visit was discussed with the patient/authorized patient relations representative; all questions welcomed and answered. Patient/authorized patient relations representative agreed to proceed Fatigue: - Extreme fatigue [...] 02/03/2018 Sinus arrhythmia 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 seen on school lunch monitor Smoker 06/24/2010 Snoring 09/29/2009 Sleep study completed [...] Paragard and removed INSERTIO (more content not included)...[facility]05-01-2025 Note HNO ID: [id number] Author: ZACH PERRY MD Service: ? Author [...] were present. Ventricular Bigeminy and Trigeminy were present.[facility]04-29-2025 Telephone encounter Note* Telephone Encounter - Niko Leigh LPN - 09/04/2024 1:07 PM EDT Patient MyChart message requesting the following refill [...] Dizziness/nausea Sulfa (Sulfonamide * GI Upset (home) [phone] (cell) Last Office Visit Date: 08/02/2024 Last [facility] Health Visit: Visit date not found Future Appointment: 11/02/2024 The patients preferred pharmacy has been captured for this encounter? yes Request is for script(s) to be escript to pharmacy. Niko Leihg LPN [facility]04-29-2025 Miscellaneous Notes* Telephone Encounter - Niko Leigh LPN - 09/04/2024 1:07 PM EDT Patient MyChart message requesting the following refill [...] Dizziness/nausea Sulfa (Sulfonamide * GI Upset (home) [phone] (cell) Last Office Visit Date: 08/02/2024 Last [facility] Visit: Visit date not found Future Appointment: 11/02/2024 The patients preferred pharmacy has been captured for this encounter? yes Request is for script(s) to be escript to pharmacy. Niko Leigh LPN documented in this encounterMercy [facility]03-27-2025 History of Present illness Narrative* Briana Leggett APRN.MEDIA RELATIONS DIRECTOR - 08/02/2024 2:29 PM EDT CC: Patient presents with: Recheck: 1 week follow up HPI Bria Witt is a 39 year old female who presents today for follow up on respiratory infection with wheezing. Unable to tolerate prednisone, placed on doxycycline. CXR negative for pneumonia. Finishing the doxycyline as ordered and feeling better. Last fever was when last seen. Cough is nowproducing white to clear sputum with less wheezing. 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 Take withfood. omeprazole (PRILOSEC) 20 mg capsule TAKE 1 CAPSULE BY MOUTH 1/2 HOUR before breakfast Nebulizers 1 Each as needed. Nebulizer with accessories/tubing ubidecarenone (H2Q COQ10 ORAL) Take by mouth. 50mg x1 daily oxyCODONE-acetaminophen (PERCOCET) 5-325 mg tablet Take 1-2 tablets by mouth as directed. Every 4-6hours as needed for pain. nadolol (CORGARD) 20 [...] plan. Briana Leggett APRN.CNP documented in this encounterMercy Health [facility]03-27-2025 NoteHNO ID: [id number] Author: BRIANA LEGGETT APRN.CNP Service: ? Author [...] 02/03/2018 Sinus arrhythmia 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 seen on school lunch monitor Smoker 06/24/2010 Snoring 09/29/2009 Sleep study completed [...] SURGICAL HISTORY OF Right 03/07/2019 [facility] - right arm surgery SHOULDER SURGERY HX Left 01/26/2017 [facility] - Left shoulder surgery - repair [...] Sulfadiazine], and Sulfa (Gao (more content not included)...[facility]03-17-2025 History of Present illness Narrative* Lima Nicohlas RT(R) - 07/23/2024 10:50 AM EDT Radiology Service Progress Note PATIENT [...] Assigned female at . status: : No status:NO. PATIENT RELEVANT IMPLANT DATA REVIEWED: Yes PATIENT PRESENTS WITH AN IMPLANTABLE OR ATTACHED BED LASTER: No RADIOLOGY DEPARTMENT: General X-ray: Exam(s) Completed: Chest X-Ray PERIPHERAL IV DATA: Not applicable SIGNED BY: RT Anabell(R) July 23, 2024 11:23 AM documented in this encounterMercy Health Willard Hospital03-17-2025 NoteHNO ID: [id number] Author: LIMA NICHOLAS RT(Kathleen) Service: ? Author Type: Security Guard Type: Progress Notes Filed: 07/23/2024 11:31 Note [...] PATIENT PRESENTS WITH AN IMPLANTABLE OR ATTACHED BED LASTER: No RADIOLOGY DEPARTMENT: General X-ray: Exam(s) Completed: Chest X-Ray PERIPHERAL IV DATA: Not applicable SIGNED BY: RT Anabell(R) July 23, 2024 11:23 [facility]03-17-2025 NoteHNO ID: [id number] Author: BRIANA LEGGETT APRN.MEDIA RELATIONS DIRECTOR Service: ? Author Type: Nurse Practitioner Type: [...] 02/03/2018 Sinus arrhythmia 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 seen on school lunch monitor Smoker 06/24/2010 Snoring 09/29/2009 Sleep study completed [...] SURGICAL HISTORY OF Right 03/07/2019 [facility] - right arm surgery SHOULDER SURGERY HX Left 01/26/2017 [facility] - Left shoulder surgery - repair of slap tear and arthroscopy SURGICAL EXTRACTION ERUPTED TOOTH 03/03/2009 had all top teeth removed TONSILLECTOMY PRIMARY/SECONDARY Tonsillectomy TUBAL LIGATION,POSTPA (more content not included)...[facility] 07-23-2024 History of Present illness Narrative* Briana Leggett APRN.MEDIA RELATIONS DIRECTOR - 07/23/2024 10:21 AM EDT CC: Patient presents with: Recheck: Follow up, Flu A on 07/15 cough HPI Bria Witt is a 39 year old female who presents today for continued respiratory illness. Started 1.5-2 weeks ago with scratchy throat then had bady aches and fever. Went to express care on07/15 and positive for Flu A and past [...] 02/03/2018 Sinus arrhythmia 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 seen on school lunch monitor Smoker 06/24/2010 Snoring 09/29/2009 Sleep study completed [...] SURGICAL HISTORY OF Right 03/07/2019 [facility] - right arm surgery SHOULDER SURGERY HX Left 01/26/2017 [facility] - Left shoulder surgery - repair [...] 8 hours as needed for pain. Take withfood. omeprazole (PRILOSEC) 20 mg capsule TAKE 1 CAPSULE BY MOUTH 1/2 HOUR before breakfast Nebulizers 1 Each as needed. Nebulizer with accessories/tubing ubidecarenone (H2Q COQ10 ORAL) Take by mouth. 50mg x1 daily oxyCODONE-acetaminophen (PERCOCET) 5-325 mg tablet Take 1-2 tablets by mouth as directed. Every 4-6hours as needed for pain. nadolol (CORGARD) 20 [...] plan. Briana Leggett APRN.CNP documented in this encounterMercy Health Willard Hospital03-17-2025 Telephone encounter Note * Telephone Encounter - Oumar Barahona RN - 07/23/2024 8:55 AM EDT Pt reports she tested positive for flu A on 07/15/24. No fever for the last 4 days. Today pt has cough, productive in the morning, as the day goes on cough is dry, increased SOB, and a rattle in chest-no wheeze. Using her inhaler more than she should. Has decreased appetite and feeling tired. Muscles are sore from coughing. Pt has concern for pneumonia since had pneumonia on Mar 15 as well as covid. States her s/s feel the same as when she had pneumonia then. Pt has same day appt scheduled with Football Pad Repairer. States she will wear a mask. [facility]03-17[facility] Miscellaneous Notes* Telephone Encounter - Oumar Barahona RN - 07/23/2024 8:55 AM EDT Pt reports she tested positive for flu A on 07/15/24. No fever for the last 4 days. Today pt has cough, productive in the morning, as the day goes on cough is dry, increased SOB, and a rattle in chest-no wheeze. Using her inhaler more than she should. Has decreased appetite and feeling tired. Muscles are sore from coughing. Pt has concern for pneumonia since had pneumonia on Mar 15 as well as covid. States her s/s feel the same as when she had pneumonia then. Pt has same day appt scheduled with Football Pad Repairer. States she will wear a mask. documented in this encounterMercy Health Willard Hospital03-09-2025 [id number] (AGENT OF COVID-19) RNA: Not detected INFLUENZA A RNA: Detected INFLUENZA B RNA: Not detected RESPIRATORY SYNCYTIAL VIRUS (RSV) RNA: Not detectedEast [facility] City HospitalComment on above:Performed By: #### [id number] 1 ####[facility] LABCLIA [id number] [address] [place] [id number] NoteHNO ID: [id number] Author: KOLE CAMERON PA Service: ? Author Type: Physician Toppiece Cutter Type: Progress Notes Filed: 07/15/2024 14:29 Note Text: [employer] Subjective Bria Witt is a 39 year [...] 02/03/2018 Sinus arrhythmia 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 seen on school lunch monitor Smoker 06/24/2010 Snoring 09/29/2009 Sleep study completed [...] SURGICAL HISTORY OF Right 03/07/2019 [facility] - right arm surgery SHOULDER SURGERY HX Left 01/26/2017 [facility] - Left shoulder surgery - repair [...] and Sulfa (Sulfonamide Antibiot (more content not included)...[facility]03-09-2025 History of Present illness Narrative* Kole Cameron PA - 07/15/2024 2:25 PM EDT [facility] Subjective Bria Witt is a 39 year old female. Patient presents with: Cough: congestion, fever, bodyaches, chills and fatigue x 2 days HPI 39-year-old female presents for cough, congestion, fever, body aches, chills, fatigue x 3 days.Patient states starting cough about 3 days ago. [...] 02/03/2018 Sinus arrhythmia 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 seen on school lunch monitor Smoker 06/24/2010 Snoring 09/29/2009 Sleep study completed [...] SURGICAL HISTORY OF Right 03/07/2019 [facility] - right arm surgery SHOULDER SURGERY HX Left 01/26/2017 [facility] - Left shoulder surgery - repair [...] 8 hours as needed for pain. Take withfood. omeprazole (PRILOSEC) 20 mg capsule TAKE 1 CAPSULE BY MOUTH 1/2 HOUR before breakfast Nebulizers 1 Each as needed. Nebulizer with accessories/tubing ubidecarenone (H2Q COQ10 ORAL) Take by mouth. 50mg x1 daily oxyCODONE-acetaminophen (PERCOCET) 5-325 mg tablet Take 1-2 tablets by mouth as directed. Every 4-6hours as needed for pain. nadolol (CORGARD) 20 [...] were advised: Tylenol/Motrin Procedures documented in this encounterMercy Health Willard Hospital03-09-2025 Instructions* Patient Instructions* Kole Cameron PA - 07/15/2024 2:25 PM EDT Cough You have been seen for your cough. There are many possible causes of cough. Most are not dangerous. Your doctor has determined that itis OK for you to go home today. [...] new problems or concerns. documented in this encounterMercy Health Willard Hospital03-03-2025 NoteHNO ID: [id number] Author: ?, ?, ? Service: ? Author Type: LICENSED NURSE Type: Progress Notes Filed: 07/09/2024 08:15 Note Text: Patient presents for Pneumococcal and Hepatitis B vaccines. Denies any problems at this time. Tolerated injections well. [facility] History of Present illness Narrative* ANNA LEONARD - 07/09/2024 8:14 AM EST Patient presents for Pneumococcal and Hepatitis B vaccines. Denies any problems at this time. Tolerated injections well. Anna Leonard LPN documented in this encounterMercy Health Willard Hospital02-24-2025 Telephone encounter Note * Telephone Encounter - ANNA LEONARD - 2024 9:27 AM EST Patient scheduled for nurse visit 07/09/24 to receive Hepatitis B and Pneumococcal vaccines. Please place order at this time. Anna Leonard LPN [facility]02-24-2025 Miscellaneous Notes* Telephone Encounter - ANNA LEONARD - 2024 9:27 AM EST Patient scheduled for nurse visit 07/09/24 to receive Hepatitis B and Pneumococcal vaccines. Please place order at this time. Anna Leonard LPN documented in this encounterMercy Health Willard Hospital02-23-2025 [id number] (AGENT OF COVID-19) RNA: Not detected INFLUENZA A RNA: Not detected INFLUENZA B RNA: Not detected RESPIRATORY SYNCYTIAL VIRUS (RSV) RNA: Not detectedEast Liverpool City HospitalComment on above:Performed By: #### [id number] 1 ####[facility] LABCLIA [id number] [address] OF [id number] NoteHNO ID: [id number] Author: MOMALKA DACOSTA APRN.CNP Service: ? Author Type: Nurse Practitioner Type: Progress Notes Filed: 07/01/2024 11:01 Note Text: This note was created using [employer]. Subjective Bria Witt is a 38 year [...] she is currently visiting a grandchild at [facility] but due to length of symptoms there is no specific treatment indicated. She will follow-up with PCP if symptoms not improving. - COVID AND INFLUENZA A/B AND RSV PCR, ROUTINE Malka Moulton APRN.CNPEast [facility] City Hospital02-23-2025 History of Present illness Narrative* Malka Moulton APRN.VELVET - 07/01/2024 11:00 AM EST This note was created using [employer]. Subjective Bria Witt is a 38 year [...] patient's complicated medical history and medication list shewill only be able to use Flonase for probable mild eustachian tube dysfunction. She was tested for influenza and COVID as she is currently visiting a grandchild at [facility] but due to length of symptoms there is no specific treatment indicated. She will follow-up with PCP if symptom s not improving. - COVID & INFLUENZA A/B & RSV PCR, ROUTINE Malka Moulton APRN.MEDIA RELATIONS DIRECTOR documented in this encounterMercy Health Willard Hospital01-15-2025 Telephone encounter Note * Telephone Encounter - Oumar Barahona RN - 05/23/2024 2:27 PM EST Pt returned call and given provider's message below with verbalized understanding. Pt agreeable. [facility]01-15-2025 Miscellaneous Notes* Telephone Encounter - Oumar Barahona RN - 05/23/2024 2:27 PM EST Pt returned call and given provider's message below with verbalized understanding. Pt agreeable. * Telephone Encounter - Kailey Barr LPN - 05/23/2024 2:14 PM EST Telephone call placed to patient. Message left to call office back for update. Kailey Barr LPN * Telephone Encounter - Surya Bishop PA-C - 05/23/2024 10:01 AM EST Please let patient know that her CXR is clearing. Follow up if symptoms not resolved or any returning or worsening symptoms. Surya Bishop PA-C 05/23/2024 documented in this encounterMercy Health Willard Hospital01-15-2025 Telephone encounter Note * Telephone Encounter - Kailey Barr LPN - 05/23/2024 2:14 PM EST Telephone call placed to patient. Message left to call office back for update. Kailey Barr LPN [facility]01-15-2025 Telephone encounter Note* Telephone Encounter - Surya Bishop PA-C - 05/23/2024 10:01 AM EST Please let patient know that her CXR is clearing. Follow up if symptoms not resolved or any returning or worsening symptoms. Surya Bishop PA-C 05/23/2024 [facility]01-03-2025 Telephone encounter Note* Telephone Encounter - Niko Leigh LPN - 05/11/2024 10:52 AM EST Patient MyChart message requesting the following refill [...] Dizziness/nausea Sulfa (Sulfonamide * GI Upset (home) [phone] (cell) Last Office Visit Date: 02/06/2024 Last [facility] Health Visit: Visit date not found Future Appointment: Visit date not found The patients preferred pharmacy has been captured for this encounter? yes Request is for script(s) to be escript to pharmacy. Niko Leigh LPN [facility]01-03-2025 Miscellaneous Notes* Telephone Encounter - Niko Leigh LPN - 05/11/2024 10:52 AM EST Patient [place] message requesting the following refill Refill(s) Requested: [...] Dizziness/nausea Sulfa (Sulfonamide * GI Upset (home) [phone] (cell) Last Office Visit Date: 02/06/2024 Last [facility] Health Visit: Visit date not found Future Appointment: Visit date not found The patients preferred pharmacy has been captured for this encounter? yes Request is for script(s) to be escript to pharmacy. Niko Leigh LPN documented in this encounterMercy Health Willard Hospital12-31-2024 NoteHNO ID: [id number] Author: SURYA BISHOP PA-C Service: ? Author Type: Physician Toppiece Cutter Type: Progress Notes Filed: 05/08/2024 09:54 Note [...] prescribed Nadolol to use prn. Following with [place] [facility]. Scheduled to picker and packer 48 hour holter monitor today. [place] palpitations in office today. Had ECG and [...] 02/03/2018 Sinus arrhythmia 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 seen on school lunch monitor Smoker 06/24/2010 Snoring 09/29/2009 Sleep study completed [...] Each as needed. Nebuli (more content not included)...[facility]12-31-2024 History of Present illness Narrative* Surya Bishop PA-C - 05/08/2024 8:48 AM EST 05/08/2024 Patient presents with: Follow Up: 3 month follow up SUBJECTIVE: This is a 38 year old that is here today for follow up asthma and palpitations. Patient was diagnosed with COVID and pneumonia on 04/17/24 in . Treated with doxycycline, overallimproving. Using albuterol 1-2 x day. She is [...] prescribed Nadolol to use prn. Following with [facility]. Scheduled to picker and packer 48 hour holter monitor today. [place] palpitations in office today. Had ECG and then took nadolol. Denies Chest pain, pleuritic chest pain, leg swelling, calfpain. Notes some intermittent SOB, but had had [...] 02/03/2018 Sinus arrhythmia 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 seen on school lunch monitor Smoker 06/24/2010 Snoring 09/29/2009 Sleep study completed [...] 8 hours as needed for pain. Take withfood. omeprazole (PRILOSEC) 20 mg capsule TAKE 1 CAPSULE BY MOUTH 1/2 HOUR before breakfast Nebulizers 1 Each as needed. Nebulizer with accessories/tubing ubidecarenone (H2Q COQ10 ORAL) Take by mouth. 50mg x1 daily oxyCODONE-acetaminophen (PERCOCET) 5-325 mg tablet Take 1-2 tablets by mouth as directed. Every 4-6hours as needed for pain. nadolol (CORGARD) 20 [...] to previous, reviewed with supervising physician-Dr. Escalera supervisor electronics testing Holter, follow with cardiology Reviewed red flags [...] plan. Surya Bishop PA-C documented in this encounterMercy Health Willard Hospital12-10-2024 NoteHNO ID: [id number] Author: ADRIANA COULTER APRN.[facility] Service: ? Author Type: Nurse Practitioner Type: [...] 02/03/2018 Sinus arrhythmia 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 seen on school lunch monitor Smoker 06/24/2010 Snoring 09/29/2009 Sleep study completed [...] SURGICAL HISTORY OF Right 03/07/2019 [facility] - right arm surgery SHOULDER SURGERY HX Left 01/26/2017 [facility] - Left shoulder surgery - repair [...] nebulizer solution Use 3 (more content not included)...[facility]12-10-2024 History of Present illness Narrative* Adriana Coulter APRN.MEDIA RELATIONS DIRECTOR - 04/17/2024 11:05 AM EST Subjective HPI HPI Bria Witt is a [...] 02/03/2018 Sinus arrhythmia 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 seen on school lunch monitor Smoker 06/24/2010 Snoring 09/29/2009 Sleep study completed [...] SURGICAL HISTORY OF Right 03/07/2019 [facility] - right arm surgery SHOULDER SURGERY HX Left 01/26/2017 [facility] - Left shoulder surgery - repair [...] 8 hours as needed for pain. Take withfood. omeprazole (PRILOSEC) 20 mg capsule TAKE 1 CAPSULE BY MOUTH 1/2 HOUR before breakfast Nebulizers 1 Each as needed. Nebulizer with accessories/tubing ubidecarenone (H2Q COQ10 ORAL) Take by mouth. 50mg x1 daily oxyCODONE-acetaminophen (PERCOCET) 5-325 mg tablet Take 1-2 tablets by mouth as directed. Every 4-6hours as needed for pain. nadolol (CORGARD) 20 [...] COVID & INFLUENZA A/B & RSV PCR, CHILANGO Coulter APRN.MEDIA RELATIONS DIRECTOR documented in this encounterMercy Health Willard Hospital12-10-2024 History of Present illness Narrative* Xiomy Moreno RT(R) - 04/17/2024 10:40 AM EST Radiology Service Progress Note PATIENT [...] PATIENT PRESENTS WITH AN IMPLANTABLE OR ATTACHED BED LASTER: No RADIOLOGY DEPARTMENT: General X-ray: Exam(s) Completed: Chest X-Ray PERIPHERAL IV DATA: Not applicable SIGNED BY: RT Oni(Kathleen) April 17, 2024 10:36 AM documented in this encounterMercy Health Willard Hospital12-10-2024 NoteHNO ID: [id number] Author: XIOMY MORENO RT(R) Service: Radiology Author Type: Technologist Type: Progress [...] PATIENT PRESENTS WITH AN IMPLANTABLE OR ATTACHED BED LASTER: No RADIOLOGY DEPARTMENT: General X-ray: Exam(s) Completed: Chest X-Ray PERIPHERAL IV DATA: Not applicable SIGNED BY: RT Oni(R) April 17, 2024 10:36 [facility]11-12-2024 History of Present illness Narrative* Moises Pfeiffer MD - 03/20/2024 11:15 AM EST Chief Complaint Chief Complaint Patient presents with [...] membranes, normal floor of mouth/tongue/OP, no masses orlesions are noted. SKIN: Neck skin is without scar or injury. PSYCH: Alert and oriented with appropriate mood and affect. PROCEDURE NOTE: Recommended flexible laryngoscopy. Risks, benefits, and alternatives were explained. They wished to proceed and provides verbal consent. PROCEDURE: Flexible Laryngoscopy with stroboscopy, CPT 84435 POSTPROCEDURE DIAGNOSIS: Voice INDICATIONS: Inability to tolerate [...] at this time that surgical excision is notwarranted due to marked improvement with conservative management with voice rest and improved laryngeal hygiene. We discussed: She will continue with decreasing her volume. She will follow up with speech therapy in one month. She will follow up with Dr. Holbrook for general ENT needs. The patient's questions were answered. Scribe Attestation By signing my name below, I, Janeeugenie Story , Scribe attest that this documentation has been prepared under the direction and in the presence of Moises Pfeiffer MD. documented in this encounterProvidence Hospital Work Phone: 1(328) 524-549411-11-2024 Telephone encounter Note* Telephone Encounter - Irma Cardenas MA - 03/19/2024 7:23 AM EST Patient given results and verbalized understanding of instructions given. Irma Cardenas MA [facility]11-11-2024 Miscellaneous Notes* Telephone Encounter - Irma Cardenas MA - 03/19/2024 7:23 AM EST Patient given results and verbalized understanding of instructions given. Irma Cardenas MA * Telephone Encounter - Heber Ferrell MD - 03/19/2024 7:14 AM EST Urine was not a clean sample so culture did not show a clear infection. Finish antibiotic and follow up with PCP, urology, or TELESALES MANAGER if symptoms persist. documented in this encounterMercy Health Willard Hospital11-11-2024 Telephone encounter Note * Telephone Encounter - Heber Ferrell MD - 03/19/2024 7:14 AM EST Urine was not a clean sample so culture did not show a clear infection. Finish antibiotic and follow up with PCP, urology, or TELESALES MANAGER if symptoms persist. [facility] Work Phone: 1(985) 954-164511-09-2024 NoteHNO ID: [id number] Author: DERIC LATHAM APRN.[facility] Service: ? Author Type: Nurse Practitioner Type: [...] 02/03/2018 Sinus arrhythmia 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 seen on school lunch monitor Smoker 06/24/2010 Snoring 09/29/2009 Sleep study completed [...] SURGICAL HISTORY OF Right (more content not included)...[facility]11-09-2024 History of Present illness Narrative* Deric Latham APRN.MEDIA RELATIONS DIRECTOR - 03/17/2024 1:52 PM EST CC: Patient presents with: Urinary Problem: Frequency [...] 02/03/2018 Sinus arrhythmia 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 seen on school lunch monitor Smoker 06/24/2010 Snoring 09/29/2009 Sleep study completed [...] SURGICAL HISTORY OF Right 03/07/2019 [facility] - right arm surgery SHOULDER SURGERY HX Left 01/26/2017 [facility] - Left shoulder surgery - repair [...] 8 hours as needed for pain. Take withfood. omeprazole (PRILOSEC) 20 mg capsule TAKE 1 CAPSULE BY MOUTH 1/2 HOUR before breakfast Nebulizers 1 Each as needed. Nebulizer with accessories/tubing ubidecarenone (H2Q COQ10 ORAL) Take by mouth. 50mg x1 daily oxyCODONE-acetaminophen (PERCOCET) 5-325 mg tablet Take 1-2 tablets by mouth as directed. Every 4-6hours as needed for pain. nadolol (CORGARD) 20 [...] by mouth four times daily. 1tsp swish inmouth for several minutes, then swallow (or expectorate) [...] type - ICD9: 380.10, ICD10: H60.502 - PSACIPKM-ORDSMWCGM-BGLSCLVJW 3.5 MG-10,000 UNIT/ML-1 % EAR DROPS,SUSP Prescription instructions reviewed with patient as applicable. Potential red flag symptoms discussed with the patient. Reviewed appropriate action plan to take if red flag symptoms occur. Patient agreeable to treatment plan. Deric Latham APRN.MEDIA RELATIONS DIRECTOR documented in this encounterMer[facility]10-28-2024 NoteHNO ID: [id number] Author: NGA MICHEL MD Service: ? Author [...] L6 SAB2 IAB0 Ectopic0 Multiple0 Live Births4 Machine Tool Builder History LMP: 01/13/2024 (Exact Date), IUD Age at Menarche: Age at First : Age at Menopause: Machine Tool Builder History Comments: Sexual Activity: Yes; Male Contraception: [...] 02/03/2018 Sinus arrhythmia 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 seen on school lunch monitor Smoker 06/24/2010 Snoring 09/29/2009 Sleep study completed [...] SURGICAL HISTORY OF Right 03/07/2019 [facility] - right arm surgery SHOULDER SURGERY HX Left 01/26/2017 [facility] - Left shoulder surgery - repair [...] Mother other (CHRONIC BRONCHI (more content not included)...[facility] 03-05-2024 History of Present illness Narrative* Nga Michel MD - 03/05/2024 8:13 AM EDT BVAChaperone offered: Declines Bria is a 38 year old who presents [...] L6 SAB2 IAB0 Ectopic0 Multiple0 Live Births4 Machine Tool Builder History LMP: 01/13/2024 (Exact Date), IUD Age at Menarche: Age at First : Age at Menopause: Machine Tool Builder History Comments: Sexual Activity: Yes; Male Contraception: [...] 02/03/2018 Sinus arrhythmia 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 seen on school lunch monitor Smoker 06/24/2010 Snoring 09/29/2009 Sleep study completed [...] SURGICAL HISTORY OF Right 03/07/2019 [facility] - right arm surgery SHOULDER SURGERY HX Left 01/26/2017 [facility] - Left shoulder surgery - repair [...] discussed with the Patient or Patient's Authorized Laundry Tech. As applicable, any other physician, advance practice provider, medical student, or other health professional student that will be observing or involved in the sensitive examination for educational or training purposes was discussed with the Patient or Authorized Laundry Tech. The Patient or Authorized Laundry Tech has agreed to proceed with the sensitive [...] external genitalia normal, normal Bartholin's glands, urethra, Pateros's glands, no vulvar lesions, no cervical lesions, [...] needed Nga Michel MD documented in this encounterMercy [facility]10-09-2024 NoteHNO ID: [id number] Author: NGA MICHEL MD Service: ? Author Type: Physician Type: Progress Notes Filed: 02/15/2024 19:40 Note Text: Attorney Recruiter offered: Patient declines. Bria Witt presents today for IUD check. She had a Mirena placed on 01/13/24. She has had spotting since placement. REVIEW OF SYSTEMS: GENERAL: No weight loss, malaise or fevers : No history of dysuria, frequency or incontinence TELESALES MANAGER: Negative for abnormal vaginal bleeding, abnormal vaginal discharge SENSITIVE EXAM: The sensitive examination was discussed with the Patient or Patient's Authorized Laundry Tech. As applicable, any other physician, advance practice provider, medical student, or other health professional student that will be observing or involved in the sensitive examination for educational or training purposes was discussed with the Patient or Authorized Laundry Tech. The Patient or Authorized Laundry Tech has agreed to proceed with the sensitive examination. (Sensitive examination includes inspection and/or palpation of the breasts, pelvis, prostate and anorectal regions). PHYSICAL EXAMINATION: LMP 11/26/2023 ABDOMEN:soft, non-tender, no masses, no hepatosplenomegaly, and no lymphadenopathy EXTERNAL GENITALIA: Normal genitalia and Bartholins, Urethra, Sken'e normal CERVIX: smooth, no lesions. IUD strings visible. UTERUS: normal size ADNEXA: negative for tenderness or masses IMPRESSION/PLAN: IUD correctly positioned.[facility]10-09-2024 History of Present illness Narrative* Nga Michel MD - 02/15/2024 10:48 AM EDT Attorney Recruiter offered: Patient declines. Bria Witt presents today for IUD check. She had a Mirena placed on 01/13/24. She has had spotting since placement. REVIEW OF SYSTEMS: GENERAL: No weight loss, malaise or fevers : No history of dysuria, frequency or incontinence TELESALES MANAGER: Negative for abnormal vaginal bleeding, abnormal vaginal discharge SENSITIVE EXAM: The sensitive examination was discussed with the Patient or Patient's Authorized Laundry Tech. As applicable, any other physician, advance practice provider, medical student, or other health professional student that will be observing or involved in the sensitive examination for educational or training purposes was discussed with the Patient or Authorized Laundry Tech. The Patient or Authorized Laundry Tech has agreed to proceed with the sensitive [...] IMPRESSION/PLAN: IUD correctly positioned. documented in this encounterMercy [facility]10-08-2024 History of Present illness Narrative* Moises Pfeiffer MD - 02/14/2024 3:00 PM EDT Reason For Consult Chief Complaint Patient presents with vocal cord polyp Pt states that her ENT told her there was more wrong with her vocal cord other than the polyp HISTORY OF PRESENT ILLNESS: Bria Witt, who is a 38 y.o. female referred by Dr. 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 The patient [...] membranes, normal floor of mouth/tongue/OP, no masses orlesions are noted. SKIN: Neck skin is without [...] consent. PROCEDURE: Flexible laryngoscopy with stroboscopy, CPT 09397 POSTPROCEDURE DIAGNOSIS: voice INDICATIONS: Inability to tolerate [...] Scribe Attestation By signing my name below, Jane Phillip , Scribe attest that this documentation has been prepared under the direction and in the presence of Moises Pfeiffer MD. documented in this encounterProv[facility] Work Phone: 1(193) 402-493209-30-2024 NoteHNO ID: [id number] Author: BRIANA LEGGETT APRN.MEDIA RELATIONS DIRECTOR Service: ? Author Type: Nurse Practitioner Type: [...] 02/03/2018 Sinus arrhythmia 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 seen on school lunch monitor Smoker 06/24/2010 Snoring 09/29/2009 Sleep study completed [...] SURGICAL HISTORY OF Right 03/07/2019 [facility] - right arm surgery SHOULDER SURGERY HX Left 01/26/2017 [facility] - Left shoulder (more content not included)...[facility]09-30-2024 History of Present illness Narrative* Briana Leggett APRN.MEDIA RELATIONS DIRECTOR - 02/06/2024 9:20 AM EDT CC: Patient presents with: Recheck: [...] feels like she is noticing more triggers. Doesnot smoke. No fever or chills. REVIEW OF [...] 02/03/2018 Sinus arrhythmia 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 seen on school lunch monitor Smoker 06/24/2010 Snoring 09/29/2009 Sleep study completed [...] SURGICAL HISTORY OF Right 03/07/2019 [facility] - right arm surgery SHOULDER SURGERY HX Left 01/26/2017 [facility] - Left shoulder surgery - repair [...] 8 hours as needed for pain. Take withfood.^Disp: 30 tablet^Rfl: 0 urinary tract infection test ( ESSENTIALS UTI MISC)^Cranberry supplement^Disp: ^Rfl: (Patient nottaking: Reported on 10/21/2023) nystatin (MYCOSTATIN) 100,000 unit/mL suspension^Take 5 mL by mouth four times daily. 1tsp swish inmouth for several minutes, then swallow (or expectorate) 4 times daily until gone.^Disp: 200 mL^Rfl: 0 (Patient not taking: Reported on 12/14/2023) triamcinolone acetonide (KENALOG) 0.1 % ointment^Apply to affected area two times a day.^Disp: 30 g^Rfl: 0 albuterol (PROVENTIL) 2.5 mg /3 mL (0.083 %) nebulizer solution^Use 3 mL via nebulizer every 4 hours as needed for wheezing/shortness of breath. Use over 5- 15minutes.^Disp: 90 mL^Rfl: 3 omeprazole (PRILOSEC) 20 mg capsule^TAKE 1 CAPSULE BY MOUTH 1/2 HOUR before breakfast^Disp: 30 capsule^Rfl: 5 Nebulizers^1 Each as needed. Nebulizer with accessories/tubing^Disp: 1 Each^Rfl: 0 ubidecarenone (H2Q COQ10 ORAL)^Take by mouth. 50mg x1 daily^Disp: ^Rfl: oxyCODONE-acetaminophen (PERCOCET) 5-325 mg tablet^Take 1-2 tablets by mouth as directed. Every 4-6hours as needed for pain.^Disp: ^Rfl: FLOVENT HFA [...] revaluate as she may need to see market specialist and/or pulmonology. - Avoidance of triggers recommended - ALBUTEROL SULFATE 2.5 MG/3 ML (0.083 %) SOLUTION FOR NEBULIZATION Prescription instructions reviewed with patient as applicable. Potential red flag symptoms discussed with the patient. Reviewed appropriate action plan to take if red flag symptoms occur. Patient agreeable to treatment plan. Briana Leggett APRN.VELVET documented in this encounterMercy [facility]09-06-2024 Instructions* Patient Instructions* Hillary Doe MA - 01/13/2024 9:08 AM [...] please contact the office. documented in this encounterMercy Health Willard Hospital09-06-2024 NoteHNO ID: [id number] Author: NGA MICHEL MD Service: ? Author [...] IUD source: office provided IUD lot #: [id number] Exp date: 01/06/2026 UNIVERSAL PROTOCOL / SAFETY [...] annual exam or sooner as needed. Nga Michel, [facility]09-06-2024 History of Present illness Narrative* Nga Michel MD - 01/13/2024 9:07 AM EDT Bria presents today for IUD insertion for dysmenorrhea, menstrual dysfunction. Patient's last menstrual period was 11/26/2023 (exact date). GC/chlamydia: Negative on 12/14/23 test: negative Side effects including irregular bleeding were discussed with the patient. The patient understands that it should be removed in 8 years or sooner if the patient desires a . IUD source: office provided IUD lot #: [id number] Exp date: 01/06/2026 UNIVERSAL PROTOCOL / SAFETY [...] and the string was cut to 3 cmfrom the external os of the cervix. Patient tolerated procedure well. PLAN: Patient was advised to observe for signs and symptoms of infection including but not limited to fever, malodorous vaginal discharge and/or pain. The patient was told to check the string monthlyfor accurate placement. Bleeding expectations were reviewed. Follow up for next annual exam or sooner as needed. Nga Michel MD documented in this encounterMercy Health [facility] Hospital08-08-2024 Telephone encounter Note * Telephone Encounter - Adele Costa APRN.CNP - 12/15/2023 9:36 AM EDT Thank you, recommend follow in 12-16 weeks to assess recurrent BV with maintenance therapy or sooner as needed. Adele Costa APRN.VELVET [facility]08-08-2024 Miscellaneous Notes* Telephone Encounter - Adele Costa APRN.CNP - 12/15/2023 9:36 AM EDT Thank you, recommend follow in 12-16 weeks to assess recurrent BV with maintenance therapy or sooner as needed. Adele Costa APRN.CNP * Telephone Encounter - Nga Hopkins RN - 12/15/2023 8:55 AM EDT Patient notified. She has not been using [...] x2 refills in June. Nga Hopkins RN * Telephone Encounter - Nga Hopkins RN - 12/15/2023 8:17 AM EDT Left message for patient to call office. Please see below. BV+ Nga Hopkins RN * Telephone Encounter - Adele Costa APRN.CNP - 12/15/2023 8:14 AM EDT Can stop during oral treatment and then restart after. Adele Costa APRN.CNP * Telephone Encounter - Nga Hopkins RN - 12/15/2023 8:12 AM EDT If patient is using the Metrogel should she continue or stop and take the Flagyl? Nga Hopkins RN * Telephone Encounter - Adele Costa APRN.CNP - 12/15/2023 7:28 AM EDT Rx sent for Flagyl pill, take BID for 7 days. Adele Costa APRN.CNP * Telephone Encounter - Adele Costa APRN.CNP - 12/15/2023 7:22 AM EDT Please notify patient: + for BV again. She has recurrent BV. Is she using the Flagyl gel twice a week? Is she taking a Women's Health probiotic? Adele Costa APRN.CNP documented in this encounterMercy Health [facility] Hospital08-08-2024 Telephone encounter Note * Telephone Encounter - Nga Hopkins RN - 12/15/2023 8:55 AM EDT Patient notified. She has not been using [...] x2 refills in June. Nga Hopkins RN [facility]08-08-[facility]24 Telephone encounter Note* Telephone Encounter - Nga Hopkins RN - 12/15/2023 8:17 AM EDT Left message for patient to call office. Please see below. BV+ Nga Hopkins RN [facility]08-08-[facility]24 Telephone encounter Note* Telephone Encounter - Adele Costa APRN.CNP - 12/15/2023 8:14 AM EDT Can stop during oral treatment and then restart after. Adele Costa APRN.CNP [facility]08-08-20[facility] Telephone encounter Note* Telephone Encounter - Nga Hopkins RN - 12/15/2023 8:12 AM EDT If patient is using the Metrogel should she continue or stop and take the Flagyl? Nga Hopkins RN [facility]08-08-[facility] Telephone encounter Note* Telephone Encounter - Adele Costa APRN.CNP - 12/15/2023 7:28 AM EDT Rx sent for Flagyl pill, take BID for 7 days. Adele Costa APRN.CNP [facility]08-08-[facility] Telephone encounter Note* Telephone Encounter - Adele Costa APRN.CNP - 12/15/2023 7:22 AM EDT Please notify patient: + for BV again. She has recurrent BV. Is she using the Flagyl gel twice a week? Is she taking a Women's Health probiotic? Adele Costa APRN.MEDIA RELATIONS DIRECTOR [facility]08-07-2024 NoteHNO ID: [id number] Author: ADELE COSTA APRN.CNP Service: ? Author Type: Nurse Practitioner Type: Progress Notes Filed: 12/14/2023 11:20 Note Text: Attorney Recruiter offered: Patient declines. Bria Witt is a 38 year old female who presents for problem visit of vaginal itching. HPI: Bria had had vaginal itching for 1 week. Thinks it may have been triggered by the Doxycyline she was prescribed for HS. Same sexual partner for 6 months. 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 LMP: 05/05/2023 (Exact Date), Having periods Age at Menarche: Age at First : Age at Menopause: Machine Tool Builder History Comments: Sexual Activity: Not Currently; Male [...] pain No date: Nonsustained ventricular tachycardia (HCC) 2015: Numbness and tingling of right hand Comment: [...] arrhythmia No date: 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 seen on school lunch monitor 06/24/2010: Smoker 09/29/2009: Snoring Comment: Sleep study [...] SURGICAL HISTORY OF; Right Comment: [facility] - right arm surgery 01/26/2017: SHOULDER SURGERY HX; Left Comment: [facility] - Left shoulder surgery - repair of slap tear and arthroscopy 03/03/2009: SURGICAL EXTRACTION ERUPTED TOOTH Comment: had all top teeth removed No date: TONSILLECTOMY PRIMARY/S (more content not included)...[facility]08-07-2024 History of Present illness Narrative* Adele Costa, WENDY.MEDIA RELATIONS DIRECTOR - 12/14/2023 10:50 AM EDT Attorney Recruiter offered: Patient declines. Bria Witt is a 38 year old female who presents for problem visit of vaginal itching. HPI: Bria had had vaginal itching for 1 week. Thinks it may have been triggered by the Doxycylineshe was prescribed for HS. Same sexual partner for 6 months. 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 LMP: 05/05/2023 (Exact Date), Having periods Age at Menarche: Age at First : Age at Menopause: Machine Tool Builder History Comments: Sexual Activity: Not Currently; Male [...] arrhythmia No date: 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 seen on school lunch monitor 06/24/2010: Smoker 09/29/2009: Snoring Comment: Sleep study [...] 03/07/2019: PAST SURGICAL HISTORY OF; Right Comment: [facility] right arm surgery 01/26/2017: SHOULDER SURGERY HX; Left Comment: [facility] - Left shoulder surgery - repair [...] Nebulizer Accessories misc 1 Each as needed. Fedwrxulouhxmxr-Qwrfjtrec-OF (BROMFED DM) 2-30-10 mg/5 mL syrup Take 5-10 ml po q6h prn (Patient not taking: Reported on 10/21/2023) ibuprofen (MOTRIN) 800 mg tablet Take 1 tablet by mouth every 8 hours as needed for pain. Take withfood. metroNIDAZOLE (METROGEL VAGINAL) 0.75 % (37.5mg/5 gram) Vaginal Gel Use 1 applicator vaginally twice per week. urinary tract infection test ( ESSENTIALS UTI MISC) Cranberry supplement (Patient not taking: Reported on 10/21/2023) nystatin (MYCOSTATIN) 100,000 unit/mL suspension Take 5 mL by mouth four times daily. 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 GENERAL: pleasant, female in no apparent distress CHEST: Normal inspiratory effort PELVIC: several tiny lesions throughout vulva extending to anus, contact dermatitis in appearance, normal Bartholin's glands, urethra, Pateros's glands, no cervical lesions, good vaginal support, [...] she would like to proceed. Adele Costa APRN.CNP Medical Decision Making: Problems: Low: Acute, uncomplicated illness or injury Data: Unique test(s) ordered: 3+ Risk: Minimal: Minimal risk from testing/treatment Medical Decision Making Level: 3 - Low documented in this encounterMercy Health [facility] Hospital07-31-2024 Telephone encounter Note * Telephone Encounter - Lucila Recinos LPN - 12/07/2023 8:35 AM EDT Patient has been identified by [...] Please advise. Thank you. Lucila Recinos LPN. [facility]07-31-[facility]24 Miscellaneous Notes* Telephone Encounter - Lucila Recinos LPN - 12/07/2023 8:35 AM EDT Patient has been identified by [...] you. Lucila Recinos LPN. documented in this encounterMercy Health Willard Hospital07-16-2024 NoteHNO ID: [id number] Author: DERIC LATHAM APRN.VELVET Service: ? Author Type: Nurse Practitioner [...] history is provided by the patient. No bilingual speech language pathologist was used. Rash Review of Systems Constitutional: [...] 02/03/2018 Sinus arrhythmia 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 seen on school lunch monitor Smoker 06/24/2010 Snoring 09/29/2009 Sleep study completed [...] SURGICAL HISTORY OF Right 03/07/2019 [facility] - right arm surgery SHOULDER SURGERY HX Left 01/26/2017 [facility] - Left shoulder surgery - repair [...] Augmentin [Amoxicillin-Pot Clavulan (more content not included)... [facility]07-16-2024 History of Present illness Narrative* Deric Latham APRN.[facility] - 11/22/2023 7:55 AM EDT Images from the original note [...] history is provided by the patient. No bilingual speech language pathologist was used. Rash Review of Systems Constitutional: [...] 02/03/2018 Sinus arrhythmia 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 seen on school lunch monitor Smoker 06/24/2010 Snoring 09/29/2009 Sleep study completed [...] SURGICAL HISTORY OF Right 03/07/2019 [facility] - right arm surgery SHOULDER SURGERY HX Left 01/26/2017 [facility] - Left shoulder surgery - repair [...] 8 hours as needed for pain. Take withfood. albuterol HFA (PROVENTIL HFA, VENTOLIN HFA) 90 mcg/actuation inhaler Inhale 2 Puffs as instructed every 4 hours as needed. metroNIDAZOLE (METROGEL VAGINAL) 0.75 % (37.5mg/5 gram) Vaginal Gel Use 1 applicator vaginally twice per week. nystatin (MYCOSTATIN) 100,000 unit/mL suspension Take 5 mL by mouth four times daily. 1tsp swish inmouth for several minutes, then swallow (or expectorate) [...] two times a day for 7 days. Coupdcbqfwtjhtw-Kpwchjnpw-VX (BROMFED DM) 2-30-10 mg/5 mL syrup Take [...] with this care plan. She Deric Latham APRN.VELVET documented in this encounterMercy Health [facility] Hospital06-25-2024 Telephone encounter Note * Telephone Encounter - Leonela Sandoval RN - 11/01/2023 9:14 AM EDT Images from the original note were not included. Conor Brand MD [facility] General Surgery Pool Please let the patient know trhe cytology was negative. Thanks Rich My Chart message sent to patient. Leonela Sandoval RN November 01, 2023 9:14 AM [facility]06-25-2024 Miscellaneous Notes* Telephone Encounter - Leonela Sandoval RN - 11/01/2023 9:14 AM EDT Images from the original note were not included. Conor Brand MD [facility] General Surgery Pool Please let the patient know trhe cytology was negative. Thanks Rich My Chart message sent to patient. Leonela Sandoval RN November 01, 2023 9:14 AM documented in this encounterMercy Health [facility]ard Hospital06-18-2024 Telephone encounter Note * Telephone Encounter - Rossy Spears MA - 10/25/2023 1:39 PM EDT Prescription Refill Information The patient has been [...] Spears MA October 25, 2023 1:40 PM [facility]06-18-[facility]24 Miscellaneous Notes* Telephone Encounter - Rossy Spears MA - 10/25/2023 1:39 PM EDT Prescription Refill Information The patient has been [...] 25, 2023 1:40 PM documented in this encounterMercy Health [facility] Hospital06-15-2024 History of Present illness Narrative* Conor Brand MD - 10/22/2023 8:07 AM EDT HISTORY AND PHYSICAL - BREAST COMPLAINT Bria Witt 1985 REFERRING PHYSICIAN: Pauline Puentes MD CHIEF [...] no family history of breast problems. She notesno significant breast trauma or breast difficulties in [...] 02/03/2018 Sinus arrhythmia 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 seen on school lunch monitor Smoker 06/24/2010 Snoring 09/29/2009 Sleep study completed [...] disease PAST SURGICAL HISTORY OF Right 03/07/2019 [facility] right arm surgery SHOULDER SURGERY HX Left 01/26/2017 [facility] - Left shoulder surgery - repair [...] 8 hours as needed for pain. Take withfood. 30 tablet 0 albuterol HFA (PROVENTIL HFA, VENTOLIN HFA) 90 mcg/actuation inhaler Inhale 2 Puffs as instructed every 4 hours as needed. 18 g 3 metroNIDAZOLE (METROGEL VAGINAL) 0.75 % (37.5mg/5 gram) Vaginal Gel Use 1 applicator vaginally twice per week. 70 g 2 nystatin (MYCOSTATIN) 100,000 unit/mL suspension Take 5 mL by mouth four times daily. 1tsp swish inmouth for several minutes, then swallow (or expectorate) [...] needed for wheezing/shortness of breath. Use over 5- 15minutes. 90 mL 3 omeprazole (PRILOSEC) 20 mg [...] Take 100 mg by mouth twice daily. Uzvxfzphesyxsbh-Hhnibzewk-WG (BROMFED DM) 2-30-10 mg/5 mL syrup Take [...] entered by the nurse and reviewed by id Nursing Notes: Thais Choudhary RN 10/21/2023 9:54 AM Signed REVIEW OF SYSTEMS: General: The patient NOTES fatigue, denies weight loss, denies weight gain, denies feeling hot, anddenies feelings of cold. Eyes: The patient denies glaucoma, denies eye injury/surgery, wears glasses or contacts. Ear/Nose/Throat: The patient NOTES allergies, denies hayfever, denies ear infections, and denies bloody noses. Cardiovascular: The patient NOTES chest pain, NOTES heart disease, NOTES high blood pressure,deniescardiac stent, denies prior heart attack, NOTES irregular [...] psychiatric medications, NOTES depression, and denies voices, deniessubstance abuse. Endocrine: The patient denies thyroid disorders, [...] nourished, well hydrated in no acute distress. Thepatient is oriented to time, place, and person. VITALS: Blood pressure 112/72, pulse 99, temperature 36.8 C (98.3 F), height 165.1 cm (5' 5), weight 99.1 kg (218 lb 6.4 oz), last menstrual period 05/05/2023, SpO2 97%. Body mass index is 36.34 kg/m . HEENT: Normal cephalic, ataumatic, pupils are equally round, sclera are anicteric, mucous membranesare moist, oropharynx is clear. Neck has no [...] cytology. The patient will be called with herpathology results as this material appeared nonworrisome. Diagnoses: (N64.52) Nipple discharge My findings have been communicated to Dr. Puentes via shared medical record. This note will be forwarded to Dr. Koki Worthington MD. Return to Clinic: The patient is instructed to follow-up with me as needed. Conor Brand MD documented in this encounterMercy Health [facility]06-14-2024 Nurse Note* Thais Choudhary RN - 10/21/2023 9:52 AM EDT REVIEW OF SYSTEMS: General: The patient NOTES fatigue, denies weight loss, denies weight gain, denies feeling hot, anddenies feelings of cold. Eyes: The patient denies glaucoma, denies eye injury/surgery, wears glasses or contacts. Ear/Nose/Throat: The patient NOTES allergies, denies hayfever, denies ear infections, and denies bloody noses. Cardiovascular: The patient NOTES chest pain, NOTES heart disease, NOTES high blood pressure,deniescardiac stent, denies prior heart attack, NOTES irregular [...] psychiatric medications, NOTES depression, and denies voices, deniessubstance abuse. Endocrine: The patient denies thyroid disorders, [...] 2023 Last Colonoscopy: none Thais Choudhary RN [facility]06-14-2024 Nurse Note* Thais Choudhary RN - 10/21/2023 9:52 AM EDT REVIEW OF SYSTEMS: General: The patient NOTES fatigue, denies weight loss, denies weight gain, denies feeling hot, anddenies feelings of cold. Eyes: The patient denies glaucoma, denies eye injury/surgery, wears glasses or contacts. Ear/Nose/Throat: The patient NOTES allergies, denies hayfever, denies ear infections, and denies bloody noses. Cardiovascular: The patient NOTES chest pain, NOTES heart disease, NOTES high blood pressure,deniescardiac stent, denies prior heart attack, NOTES irregular [...] psychiatric medications, NOTES depression, and denies voices, deniessubstance abuse. Endocrine: The patient denies thyroid disorders, [...] none Thais Choudhary RN documented in this encounterMercy Health [facility]05-17-[facility] History of Present illness Narrative* Deric Latham, WENDY.MEDIA RELATIONS DIRECTOR - 09/23/2023 8:57 AM EDT CC: Patient presents with: Sore Throat: Nausea, diarrhea, bodyaches x1 day HPI: Bria Witt is a 38 year old female who presents to the office with complaint of head congestionand sore throat for the past day. Symptoms [...] 02/03/2018 Sinus arrhythmia 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 seen on school lunch monitor Smoker 06/24/2010 Snoring 09/29/2009 Sleep study completed [...] SURGICAL HISTORY OF Right 03/07/2019 [facility] - right arm surgery SHOULDER SURGERY HX Left 01/26/2017 [facility] - Left shoulder surgery - repair [...] [Silver Sulfadiazine], and Sulfa (Sulfonamide Antibiotics) MEDICATIONS Pmpuiqgrvlumznv-Ctqxnblqd-MA (BROMFED DM) 2-30-10 mg/5 mL syrup Take 5-10 ml po q6h prn ibuprofen (MOTRIN) 800 mg tablet Take 1 tablet by mouth every 8 hours as needed for pain. Take withfood. albuterol HFA (PROVENTIL HFA, VENTOLIN HFA) 90 mcg/actuation inhaler Inhale 2 Puffs as instructed every 4 hours as needed. metroNIDAZOLE (METROGEL VAGINAL) 0.75 % (37.5mg/5 gram) Vaginal Gel Use 1 applicator vaginally twice per week. urinary tract infection test ( ESSENTIALS UTI MIS) Cranberry supplement nystatin (MYCOSTATIN) 100,000 unit/mL suspension Take 5 mL by mouth four times daily. 1tsp swish inmouth for several minutes, then swallow (or expectorate) [...] Patient agreeable to treatment plan. Deric Latham APRN.CNP documented in this encounterMercy Health [facility]05-08-2024 NoteIMPRESSION: INCOMPLETE: NEEDS ADDITIONAL IMAGING EVALUATION There is no abnormality seen in the right breast to correspond with the bloody discharge from the nipple, however, ultrasound is recommended. LIMITED ULTRASOUND OF RIGHT BREAST: 09/14/2023 RESULT: No prior exams were available for comparison. Real-time ultrasound of the right breast retroareolar was performed. Carroin scale images of the real-time examination were [...] Health, Family Medicine, and Medical/Surgical Oncology, the [facility] has carefully reviewed the data and [...] their providers when to stop screening mammograms. [employer] System Operator(s): Sweetie Fenton, [facility]; Karol Gregg, [facility] OVERALL STUDY BIRADS: 1 Negative Staff Nurse Anesthetist: Chetna Transcribe Date/Time: Sep 14 2023 9:04A Dictated by: RENATA DE LUNA MD This examination was interpreted and the report reviewed and electronically signed by: RENATA DE LUNA MD on Sep 14 2023 9:57AM EST DIVISION OF [id number] NoteIMPRESSION: INCOMPLETE: NEEDS ADDITIONAL IMAGING EVALUATION There is [...] Health, Family Medicine, and Medical/Surgical Oncology, the [facility] has carefully reviewed the data and [...] their providers when to stop screening mammograms. [employer] System Operator(s): Sweetie Fenton, [facility]; Karol Gregg, [facility] OVERALL STUDY BIRADS: 1 Negative Staff Nurse Anesthetist: Chetna Transcribe Date/Time: Sep 14 2023 9:04A Dictated by : RENATA DE LUNA MD This examination was interpreted and the report reviewed and electronically signed by: RENATA DE LUNA MD on Sep 14 2023 9:57AM EST DIVISION OF [id number] History of Present illness Narrative* Sweetie Fenton RDMS - 09/14/2023 9:30 AM EDT Radiology Service Progress Note PATIENT [...] PATIENT PRESENTS WITH AN IMPLANTABLE OR ATTACHED BED LASTER: No RADIOLOGY DEPARTMENT: Ultrasound PERIPHERAL IV DATA: Not applicable SIGNED BY: Sweetie Fenton RDMS September 14, 2023 2:13 PM documented in this encounterMercy Health [facility]05-01-2024 History of Present illness Narrative* Isabel Morales APRN.CNM - 09/07/2023 11:27 AM EDT Bria Witt is a 38 year old female who presents for problem visit nipple discharge. HPI: Presents today for nipple discharge in the last three weeks. Had area on right breast that wassore and red that had small amount of blood then pus come out. Nothing since initial time but wanted to get checked. Denies any new medications, trauma. No history of breast or ovarian cancers. 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 LMP: 05/05/2023 (Exact Date), Having periods Age at Menarche: Age at First : Age at Menopause: Machine Tool Builder History Comments: Sexual Activity: Not Currently; Male [...] 02/03/2018 Sinus arrhythmia 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 seen on school lunch monitor Smoker 06/24/2010 Snoring 09/29/2009 Sleep study completed [...] SURGICAL HISTORY OF Right 03/07/2019 [facility] - right arm surgery SHOULDER SURGERY HX Left 01/26/2017 [facility] - Left shoulder surgery - repair [...] age 15 Current Outpatient Medications Medication Sig Lpglvwjyoszomxn-Iqgdbtyrk-BR (BROMFED DM) 2-30-10 mg/5 mL syrup Take 5-10 ml po q6h prn ibuprofen (MOTRIN) 800 mg tablet Take 1 tablet by mouth every 8 hours as needed for pain. Take withfood. albuterol HFA (PROVENTIL HFA, VENTOLIN HFA) 90 mcg/actuation inhaler Inhale 2 Puffs as instructed every 4 hours as needed. metroNIDAZOLE (METROGEL VAGINAL) 0.75 % (37.5mg/5 gram) Vaginal Gel Use 1 applicator vaginally twice per week. urinary tract infection test ( ESSENTIALS UTI MISC) Cranberry supplement nystatin (MYCOSTATIN) 100,000 unit/mL suspension Take 5 mL by mouth four times daily. 1tsp swish inmouth for several minutes, then swallow (or expectorate) [...] normal. Isabel Morales APRN.CNM documented in this encounterMercy [facility]04-[facility]-2024 History of Present illness Narrative* Isabel Martinez APRN.CNP - 08/16/2023 2:23 PM EDT This note was created using ActuatedMedicalriter. Subjective Bria Witt is a 38 year [...] history is provided by the patient. No bilingual speech language pathologist was used. Abscess This is a recurrent [...] 02/03/2018 Sinus arrhythmia 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 seen on school lunch monitor Smoker 06/24/2010 Snoring 09/29/2009 Sleep study completed [...] SURGICAL HISTORY OF Right 03/07/2019 [facility] - right arm surgery SHOULDER SURGERY HX Left 01/26/2017 [facility] - Left shoulder surgery - repair [...] [Silver Sulfadiazine], and Sulfa (Sulfonamide Antibiotics) MEDICATIONS Pavougunyancmla-Zzohxqlsh-QX (BROMFED DM) 2-30-10 mg/5 mL syrup Take 5-10 ml po q6h prn ibuprofen (MOTRIN) 800 mg tablet Take 1 tablet by mouth every 8 hours as needed for pain. Take withfood. albuterol HFA (PROVENTIL HFA, VENTOLIN HFA) 90 mcg/actuation inhaler Inhale 2 Puffs as instructed every 4 hours as needed. metroNIDAZOLE (METROGEL VAGINAL) 0.75 % (37.5mg/5 gram) Vaginal Gel Use 1 applicator vaginally twice per week. urinary tract infection test ([facility] UTI MIS) Cranberry supplement nystatin (MYCOSTATIN) 100,000 unit/mL suspension Take 5 mL by mouth four times daily. 1tsp swish inmouth for several minutes, then swallow (or expectorate) [...] with PCP for continued sx Isabel Martinez APRN.MEDIA RELATIONS DIRECTOR documented in this encounterMercy Health [facility] Hospital03-08-2024 History of Present illness Narrative* Conor Brand MD - 07/15/2023 9:35 AM EST HISTORY AND PHYSICAL Bria Fieldstamika 1985 REFERRING PHYSICIAN: Adele Costa APRN.MEDIA RELATIONS DIRECTOR CHIEF COMPLAINT: Anal Pain, HPI: Bria is a 38 year old female with a complaint of anal pain. she has noticed anal pain with occasional bleeding for a prolonged period of time. She notes that this has been occurring for least the last few months. She notes pain when sitting and pain especially when she is working out the gymon a smaller size seat. She occasionally notes [...] 02/03/2018 Sinus arrhythmia 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 seen on school lunch monitor Smoker 06/24/2010 Snoring 09/29/2009 Sleep study completed [...] SURGICAL HISTORY OF Right 03/07/2019 [facility] - right arm surgery SHOULDER SURGERY HX Left 01/26/2017 [facility] - Left shoulder surgery - repair [...] by mouth four times daily. 1tsp swish inmouth for several minutes, then swallow (or expectorate) [...] needed for wheezing/shortness of breath. Use over 5- 15minutes. 90 mL 3 omeprazole (PRILOSEC) 20 mg [...] entered by the nurse and reviewed by id Nursing Notes: Leonela Sandoval RN 07/15/2023 8:38 AM Signed REVIEW OF SYSTEMS: General: The patient NOTES fatigue, denies weight loss, denies weight gain, denies feeling hot, anddenies feelings of cold. Eyes: The patient denies [...] psychiatric medications, NOTES depression, and denies voices, deniessubstance abuse. Endocrine: The patient denies thyroid disorders, [...] nourished, well hydrated in no acute distress. Thepatient is oriented to time, place, and person. [...] An anterior fissure is visualized, she has nocurrent posterior midline fissure did. She has lateral [...] We discussed that regulation of stool is montoay to healing of the fissure. Most fissures heal with these measures. Return if symptoms fail to improve. Diagnoses: (K60.2) Anal fissure (primary encounter diagnosis) (K64.9) Hemorrhoids, unspecified hemorrhoid type My findings have been communicated to Julissa via shared medical record. This note will be forwarded to Koki Worthington MD. Return to Clinic: The patient is instructed to follow-up with me as needed. Conor Brand MD documented in this encounterMercy Health [facility]03-08-2024 Instructions* Patient Instructions* Conor Brand MD - 07/15/2023 9:12 AM EST The following instructions are important for you related to your office visit today with the [facility] General Surgeons. INSTRUCTIONS FOR AN ANAL FISSURE [...] three to four times per day and afterbovel movements. A sitz bath is drawing luke [...] you should contact our office immediately @ [phone] and ask to be transferred to the General Surgery department. documented in this encounterMercy Health [facility]03-08-2024 Nurse Note* Leonela Sandoval RN - 07/15/2023 8:36 AM EST REVIEW OF SYSTEMS: General: The patient NOTES fatigue, denies weight loss, denies weight gain, denies feeling hot, anddenies feelings of cold. Eyes: The patient denies [...] psychiatric medications, NOTES depression, and denies voices, deniessubstance abuse. Endocrine: The patient denies thyroid disorders, [...] Never Leonela Sandoval RN documented in this encounterMercy Health [facility] Hospital02-16-2024 Miscellaneous Notes* Telephone Encounter - Natalia Clayton LPN - 06/24/2023 12:27 PM EST Patient notified * Telephone Encounter - Adele Costa APRN.CNP - 06/24/2023 11:24 AM EST Did not have yeast infection with last culture, but rx sent in the event that Metrogel use caused one. To follow up in office if symptoms don't resolve. Do not take Diflucan with Percocet. Adele Costa APRN.VELVET * Telephone Encounter - Nga Hopkins RN - 06/24/2023 10:09 AM EST Patient called with c/o internal and external vaginal itching along with white discharge. She's been using Metrogel as directed. Do you want her to use Monistat or would you like to order Diflucan since she's using the Metrogel? Nga Hopkins RN documented in this encounterMercy Health [facility]02-09-2024 Miscellaneous Notes* Telephone Encounter - Adele Costa APRN.CNP - 06/17/2023 8:50 AM EST MyChart sent regarding negative cultures. Adele Costa APRN.CNP documented in this encounterMercy Health Willard Hospital02-08-2024 History of Present illness Narrative* Adele Costa APRN.CNP - 06/16/2023 1:23 PM EST Bria Witt is a 37 year old female who presents for problem visit of vaginitis. HPI: Patient has had recurrent bacterial vaginosis over the last year. She is not using scented products. Tries to wear only a robe throughout the house without underwear. Still had recurrent BV whenshe wasn't sexually active. Taking a probiotic. She is experiencing itching, discharge, and irritation today. 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 LMP: 05/05/2023 (Exact Date), Having periods Age at Menarche: Age at First : Age at Menopause: Machine Tool Builder History Comments: Sexual Activity: Not Currently; Male [...] 02/03/2018 Sinus arrhythmia 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 seen on school lunch monitor Smoker 06/24/2010 Snoring 09/29/2009 Sleep study completed [...] SURGICAL HISTORY OF Right 03/07/2019 [facility] - right arm surgery SHOULDER SURGERY HX Left 01/26/2017 [facility] - Left shoulder surgery - repair [...] Medications Medication Sig urinary tract infection test ([facility] ESSENTIALS UTI MISC) Cranberry supplement nystatin (MYCOSTATIN) 100,000 unit/mL suspension Take 5 mL by mouth four times daily. 1tsp swish inmouth for several minutes, then swallow (or expectorate) [...] external genitalia normal, normal Bartholin's glands, urethra, Pateros's glands, no cervical lesions, good vaginal support, [...] measures - CONSULT TO GASTROENTEROLOGY Adele Costa APRN.MEDIA RELATIONS DIRECTOR Medical Decision Making: Problems: Moderate: New problem with uncertain prognosis and 1+ chronic illnesses with change Data: Unique test(s) ordered: 3+ Risk: Minimal: Minimal risk from testing/treatment Medical Decision Making Level: 4 - Moderate documented in this encounterMercy Health [facility] Hospital02-08-2024 Miscellaneous Notes* Telephone Encounter - Nga Hopkins RN - 06/16/2023 9:31 AM EST Spoke with patient. Recently treated for BV. Symptoms cleared initially. Scheduled patient an appointment today. Nga Hopkins RN * Telephone Encounter - Luz Peterson - 06/16/2023 8:54 AM EST Patient called she has another BV infection can you call her in something to the pharmacy? Patient can be reached at [phone] Please advise documented in this encounterMercy Health [facility] Hospital12-28-2023 Discharge summary Author Hammad Asif [facility] May 05, 2023 11:59am Note Date/Time May 05, 2023 11:59am [facility] [address] [place] [address]. [address] [place] [address] / REHABILITATION SERVICES DISCHARGE SUMMARY MR#: [id number] Acct: [id number] Name: BRIA WITT Rep #: [id number] : 1985 37 From: Hammad Witt Referring Dr.: HOLLI Conn Status: REG RCR Insurance: [facility] [employer]URANCE Discharge Summary D/C [...] please feel free to call me at [phone]. Thank you for the referral of thispatient. Sincerely, Hammad Asif, DPT Balance/Gait/Functional tests Balance/Special Test Scores Lower Extremity Functional Score: 59 6 Minute Walk Test: 383 meters. Improvement % Improvement: 85 <Electronically signed by Hammad Asif DPT> 05/05/23 1159 CC: Dr. Koki Worthington MD; HOLLI Conn ~ CLS Signed [facility] Work Phone: 1(346) 202-614311-08-2023 Miscellaneous Notes* Telephone Encounter - Briana Leggett APRN.CNP - 03/16/2023 1:29 PM EST Had refilled what was previously ordered. I have changed prescription to adult dose and sent. Briana Leggett APRN.CNP * Telephone Encounter - Maryjane Marinelli LPN [...] pt at this time. documented in this encounterMercy Health [facility] Hospital11-03-2023 Miscellaneous Notes* Telephone Encounter - Nga Hopkins RN - 03/11/2023 9:57 AM EDT Mychart message sent. Will call if not viewed. [...] needed. Eileen Morales APRN.VELVET documented in this encounterMercy Health Willard Hospital10-23-2023 Miscellaneous Notes* Telephone Encounter - Zee [...] Thank you. Zee Bryson. documented in this encounterMercy Health Willard Hospital10-23-2023 Miscellaneous Notes* Telephone Encounter - Zee [...] Thank you. Zee Bryson. documented in this encounterMercy Health [facility] Hospital07-06-2023 Miscellaneous Notes* Telephone Encounter - Fatou [...] you. Jeanette Brooke LPN documented in this encounterMercy Health Willard Hospital06-26-2023 Discharge summary Author Tamir Quesada [facility] November 01, 2022 11:16am Note Date/Time November 01, 2022 11:1 6am [facility] [address] [place] [address] / REHABILITATION SERVICES DISCHARGE SUMMARY MR#: [id number] Acct: [id number] Name: BRIA WITT Rep #: [id number] : 1985 37 From: Tamir Quesada PT, ATC Referring Dr.: HOLLI Hou Status: REG RCR Insurance: [facility] [employer] PA[employer]URANCE It has been [...] please feel free to call me at [phone]. Thank you for the referral of thispatient. Sincerely, Tamir Quesada, PT, ATC Balance/Gait/Functional tests - Balance/Special Test Scores Lower Extremity Functional Score: 29 <Electronically signed by Tamir Quesada PT, ATC> 11/01/22 1116 CC: HOLLI Hou; Dr. Koki Worthington MD ~ [facility] Signed [facility] Work Phone: 1(848) 261-857905-30-2023 Miscellaneous Notes* Telephone Encounter - Zee Chavez [...] you. Zee Chavez LPN documented in this encounterMercy Health Willard Hospital03-31-2023 Miscellaneous Notes* Telephone Encounter - Raven [...] identified before therapy. Thank you Briana Leggett APRN.VELVET * Telephone Encounter - Oumar Barahona RN [...] Dr. Rangel nurse already informed her [facility] does not do MSK US. States she is feeling very frustrated. Asking Briana, Football Pad Repairer, to please advise, states she is at a loss. States noone has even asked her to do PT. * Telephone Encounter - Briana Leggett APRN.CNP - 08/04/2022 6:49 PM EDT Please let patient know she needs to get MSK ultrasound completed as ordered. If this is a transportation issue can [facility] perform this? Thank you Briana Leggett [...] appropriate appointment for him. documented in this encounterMercy Health Willard Hospital03-29-2023 History of Present illness Narrative* Briana Leggett APRN.CNP - 08/04/2022 9:44 AM EDT CC: Patient presents with: Recheck: 6 month follow up HPI Bria Witt is a 37 year old female who presents today for routine follow up. GERD: controlled with current treatment. Denies heartburn as long as she avoids tacos, no difficulty swallowing, no abdominal pain or nausea. Palpitations, HTN, and HLD: Sees [facility]. Controlled with Nadolol but does [...] 02/03/2018 Sinus arrhythmia 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 seen on school lunch monitor Smoker 06/24/2010 Snoring 09/29/2009 Sleep study completed [...] SURGICAL HISTORY OF Right 03/07/2019 [facility] - right arm surgery SHOULDER SURGERY HX Left 01/26/2017 [facility] - Left shoulder surgery - repair [...] Clavulanate], Corticosteroids (Glucocorticoids), Environmental [Other], Feathers, Other Ruthton-3s, Potassium Clavulanate, Prednisone, Seasonal Allergies, Silvadene [Silver [...] psychiatry. - Reviewed concept of neurochemical imbalance [facility] depression/anxiety, treatment options and benefits of counseling in combination with medication. Also reviewed benefits of sleep hygeine, diet and exercise - Instructed patient to contact office or dcvbd-pv-[id number] after-hours promptly should condition worsen or any new symptoms appear. - [facility] and after hours crisis line Prescription instructions reviewed with patient as applicable. Potential red flag symptoms discussed with the patient. Reviewed appropriate action plan to take if red flag symptoms occur. Patient agreeable to treatment plan. Briana Leggett APRN.CNP documented in this encounterMercy Health Willard Hospital03-01-2023 Miscellaneous Notes* Telephone Encounter - Clem García - 07/07/2022 8:23 AM EST PT scheduled for MSK US on 08/02/22 at 11:[address] [facility]. * Telephone Encounter - Clem García - [...] 1st attempt. * Telephone Encounter - Clem García - 07/01/2022 12:36 PM EST Visit Type: [...] FACILITY Slot held: N/A documented in this encounterMercy Health Willard Hospital02-10-2023 History of Present illness Narrative* Chela Sheridan, - 06/18/2022 1:17 PM EST VIRTUAL VISIT PROGRESS NOTE This is a virtual visit using [employer] video visit. It required patient-provider interaction for [...] 02/03/2018 Sinus arrhythmia 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 seen on school lunch monitor Smoker 06/24/2010 Snoring 09/29/2009 Sleep study completed [...] disease PAST SURGICAL HISTORY OF Right 03/07/2019 [facility] right arm surgery SHOULDER SURGERY HX Left 01/26/2017 [facility] - Left shoulder surgery - repair [...] See Comments Allergic to bird dander Other Ruthton-3s Unknown Potassium Clavulana* GI Upset Prednisone Swelling [...] torn and retracted. No rotator cuff tear. Staff Nurse Anesthetist: EDWARD Transcribe Date/Time: May 11 2022 12:10P [...] which included preparing to see the patient, xkur-sv-rpmr patient care, completing clinical documentation, obtaining and/or [...] past Chela Sheridan DO documented in this encounterMercy Health Willard Hospital02-08-2023 History of Present illness Narrative* Norm Hernandez Jr., MD - 06/16/2022 11:41 AM EST ESTABLISHED PATIENT VISIT (Virtual Visit with Video) For this virtual visit, the patient has been identified by name and (MRN and photo identification as well if available). Those taking part in visit: Patient and physician via [employer]. Consent for this visit received from patient. [...] somatoform disorder. EEG was performed at [facility] on 05/27/22 and was normal per [...] problems, and is following with spine at [place] and told not bad enough to do [...] 02/03/2018 Sinus arrhythmia 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 seen on school lunch monitor Smoker 06/24/2010 Snoring 09/29/2009 Sleep study completed [...] which included preparing to see the patient, ongy-qo-asca patient care, completing clinical documentation, obtaining and/or reviewing separately obtained history, performing a medically appropriate examination, counseling and educating the pa tient/family/caregiver, and communicating results to the patient/family/caregiver. documented in this encounterMercy Health Willard Hospital01-19-2023 Miscellaneous Notes* Telephone Encounter - Fatou Begum LPN - 05/27/2022 2:12 PM EST Pt out of medication. Fatou Lacy DE LEON Patient has been identified by name and [...] you. Fatou Begum LPN documented in this encounterMercy Health Willard Hospital01-19-2023 Miscellaneous Notes* Telephone Encounter - BRITTANY Morocho - 05/27/2022 2:01 PM EST CD/report READY FOR MILITARY COMMUNICATIONS SPECIALIST AT [facility] * Telephone Encounter - Irma Vallejo - 05/27/2022 12:58 PM EST Patient requesting disk and report of 05/11 MRI. 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 documented in this encounterMercy Health Willard Hospital01-19-[address] Hernandez [facility] May 27, 2022 8:49am Note Date/Time May 27, 2022 8 :50am [facility] Medical Records Department [address] [place] [address] Telemedicine Confirmation Receipt 05/27/22 MR#: [id number] Acct: [id number] Name: BRIA WITT Rep #:[id number] : 1985 36 From: Norm Butler PCP: Dr. Koki Worthington MD Status:[employer] [facility] Telemed has confirmed receipt of a request for visit. This document confirms receipt of the order initiating the consult. To find the results of the consultation, please view the patient's reports for the scanned Telemed Consult. [facility] Work Phone: 1(794) 930-956901-12-2023 Miscellaneous Notes* Telephone Encounter - Heike Barnes [...] at her latest MRI documented in this encounterMercy [facility]01-09-2023 Miscellaneous Notes* Telephone Encounter - Sophia [...] finished that prescription. I did confirm [facility] in [place]. Patient aware Dr. Staton is in surgery today and this may not get answered right away. documented in this encounterMercy Health Willard Hospital01-03-2023 History of Present illness Narrative* Pam Travis, RT(R) - 05/11/2022 10:00 AM EST Radiology [...] 11, 2022 10:30 AM documented in this encounterMercy Health Willard Hospital12-30-2022 History of Present illness Narrative* Norm [...] per records: On 03/01/[address] [facility] ER for episode of sudden twich in R lowerreyelid and senses that legs were floating on cloud per ER report. BOSE the day prior. ER workup unremarkable and pt did not stay overnight as recommended by [facility] neurologist for MRI brain with vascular imaging as well. Later was seen by Dr. Coffey, neurologist at [facility]. During visit on 04/27/21 complained of palpitations, but appears was already following with cardiology. At evaluation on 04/27/21 indicated that continued to have R eun facial numbness since ER evaluation. Ddx included vascular event vs MS vs trigeminal neuropathy per report. MRI brain wwo contast at [facility] on 05/14/21 was unremarkable pre report. [...] then states the last major one was 2016. Nothing pt can do to effect the [...] 02/03/2018 Sinus arrhythmia 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 seen on school lunch monitor Smoker 06/24/2010 Snoring 09/29/2009 Sleep study completed [...] which included preparing to see the patient, [id number] patient care, completing clinical documentation, obtaining and/or reviewing separately obtained history, performing a medically appropriate examination, counseling and educating the pat ient/family/caregiver, ordering medications, tests, or procedures, independently interpreting results (not separately reported), and communicating results to the patient/family/caregiver. documented in this encounterMercy Health Willard Hospital12-05-2022 History of Present illness Narrative* Mitchel Staton MD - 04/12/2022 1:56 PM EST Mitchel Staton MD Department of Orthopaedics Orthopaedics [address] [place] [address] Dept: [phone] Dept April 12, 2022 CHIEF COMPLAINT: New and Pain of the Right Shoulder HPI Patient here today for right shoulder injury. She tripped over a tote and fell on 03/21/2022. She was seen at [facility] after the injury. She is right hand [...] 02/03/2018 Sinus arrhythmia 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 seen on school lunch monitor Smoker 06/24/2010 Snoring 09/29/2009 Sleep study completed [...] SURGICAL HISTORY OF Right 03/07/2019 [facility] - right arm surgery SHOULDER SURGERY HX Left 01/26/2017 [facility] - Left shoulder surgery - repair [...] Clavulanate], Corticosteroids (Glucocorticoids), Environmental [Other], Feathers, Other Ruthton-3s, Potassium Clavulanate, Prednisone, Seasonal Allergies, Silvadene [Silver Sulfadiazine], Stress Test Iv Liquid [Other], and Sulfa (Sulfonamide Antibiotics) ROS: General (negative for fatigue, malaise, weight loss/gain) HEENT (negative for headache, earache, recent vision changes, sinus pain, sore throat) Respiratory (no recent shortness of breath, hemoptysis) CV (negative for chest tightness, palpitations) Musculoskeletal (see HPI) Psych (no depression, anxiety) Mitchel Staton MD documented in this encounterMercy Health Willard Hospital11-30-2022 Miscellaneous Notes* Telephone Encounter - Fernanda Mena MA - 04/07/2022 4:13 PM EST MARISELA mckeon/ Jax 12/29/18 Pt needs appt documented in this encounterMercy Health Willard Hospital11-30-2022 Miscellaneous Notes* Telephone Encounter - Rupal Puentes LPN - 04/07/2022 3:59 PM EST Last office visit: 01/18/22 Next appointment scheduled: 07/19/22 Patient phones requesting refills as follows: Requested Prescriptions Pending Prescriptions Disp Refills Selenium Sulfide 2.25 % sham 180 mL 3 Sig: Apply to affected area once daily. Please review and advise. Rupal Puentes LPN documented in this encounterMercy Health Willard Hospital11-10-2022 Miscellaneous Notes* Telephone Encounter - Zayra Becker MD - 03/18/2022 5:22 PM EST See result note General surgery referral placed - can see Dr. Fuchs in office thanks documented in this encounterMercy Health Willard Hospital11-04-2022 History of Present illness Narrative* Zayra Becker MD - 03/12/2022 9:54 AM EDT Attorney Recruiter offered: Patient declines. Bria Witt is a [...] L6 SAB2 IAB0 Ectopic0 Multiple0 Live Births4 Machine Tool Builder History LMP: 08/17/2021, IUD Age at Menarche: Age at First : Age at Menopause: Machine Tool Builder History Comments: Sexual Activity: Not Currently; Male; [...] 02/03/2018 Sinus arrhythmia 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 seen on school lunch monitor Smoker 06/24/2010 Snoring 09/29/2009 Sleep study completed [...] SURGICAL HISTORY OF Right 03/07/2019 [facility] - right arm surgery SHOULDER SURGERY HX Left 01/26/2017 [facility] - Left shoulder surgery - repair [...] inspiratory effort PELVIC: normal Bartholin's glands, urethra, Pateros's glands, no vulvar lesions, no cervical lesions,good [...] the past. Scheduled CT and discussed with outbound sales professional providers over weekend. Zayra Becker DO Medical Decision Making: Problems: Moderate: New problem with uncertain prognosis Data: Unique test(s) ordered: 1 Risk: Low: Low risk from testing/treatment Medical Decision Making Level: 3 - Low documented in this encounterMercy Health Willard Hospital10-20-2022 Miscellaneous Notes* Telephone Encounter - Raven Mina Ma - 02/25/2022 8:28 AM EDT Faxed. * Telephone Encounter - Briana Leggett APRN.CNP - 02/24/2022 8:19 AM EDT Please fax nebulizer order as requested. Thank you Briana Leggett APRN.CNP documented in this encounterMercy Health Willard Hospital09-12-2022 History of Present illness Narrative* Briana [...] us. Would like a second opinion with [facility] neurology. Is in physical therapy as [...] this office with average BP's in the 110s/[id number] range. 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 She watches her diet for sodium, low fat and low cholesterol most of the time. Last 3 Encounter BP Readings: Date: BP: 01/18/2022 118/74 12/04/2021 120/72 11/03/2021 136/88 Sees [facility] for this. Last seen 3 months [...] 02/03/2018 Sinus arrhythmia 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 seen on school lunch monitor Smoker 06/24/2010 Snoring 09/29/2009 Sleep study completed [...] disease PAST SURGICAL HISTORY OF Right 03/07/2019 [facility] right arm surgery SHOULDER SURGERY HX Left 01/26/2017 [facility] - Left shoulder surgery - repair [...] Clavulanate], Corticosteroids (Glucocorticoids), Environmental [Other], Feathers, Other Ruthton-3s, Potassium Clavulanate, Prednisone, Seasonal Allergies, Silvadene [Silver [...] per minute with sinus arrhythmia INTERVALS: Normal VA interval QRS COMPLEX: Normal ST SEGMENT: Normal [...] plan. Briana Leggett APRN.VELVET documented in this encounterMercy Health Willard Hospital08-13-2022 Miscellaneous Notes* Telephone Encounter - Lucila [...] you. Lucila Recinos LPN documented in this encounterMercy Health Willard Hospital07-29-2022 History of Present illness Narrative* Xiomy [...] 04, 2021 8:04 AM documented in this encounterMercy Health Willard Hospital07-29-2022 History of Present illness Narrative* Heber [...] 02/03/2018 Sinus arrhythmia 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 seen on school lunch monitor Smoker 06/24/2010 Snoring 09/29/2009 Sleep study completed [...] SURGICAL HISTORY OF Right 03/07/2019 [facility] - right arm surgery SHOULDER SURGERY HX Left 01/26/2017 [facility] - Left shoulder surgery - repair [...] See Comments Allergic to bird dander Other Ruthton-3s Unknown Potassium Clavulana* GI Upset Prednisone Swelling [...] improving. Heber Ferrell MD documented in this encounterMercy Health Willard Hospital07-27-2022 History of Present illness Narrative* Yo [...] -encouraged to see neuro-ophthalmology at [facility] if possible - unable to drive long [...] components. Yo Segura MD documented in this encounterMercy Health Willard Hospital06-29-2022 History of Present illness Narrative* Chela [...] for this visit. Physical Exam Vitals: LMP 08/17/2021 Psych: Pleasant, good affect and mood [...] versus an underlying issue. documented in this encounterMercy Health Willard Hospital06-28-2022 History of Present illness Narrative* Adriana Coulter APRN.MEDIA RELATIONS DIRECTOR - 11/03/2021 11:06 AM EDT Subjective HPI [...] 02/03/2018 Sinus arrhythmia 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 seen on school lunch monitor Smoker 06/24/2010 Snoring 09/29/2009 Sleep study completed [...] SURGICAL HISTORY OF Right 03/07/2019 [facility] - right arm surgery SHOULDER SURGERY HX Left 01/26/2017 [facility] - Left shoulder surgery - repair [...] plan Adriana Coulter APRN.CNP documented in this encounterMercy Health Willard Hospital06-20-2022 Miscellaneous Notes* Telephone Encounter - Raven [...] you Briana Leggett APRN.CNP documented in this encounterMercy Health Willard Hospital06-10-2022 History of Present illness Narrative* Briana [...] 02/03/2018 Sinus arrhythmia 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 seen on school lunch monitor Smoker 06/24/2010 Snoring 09/29/2009 Sleep study completed [...] disease PAST SURGICAL HISTORY OF Right 03/07/2019 [facility] right arm surgery SHOULDER SURGERY HX Left 01/26/2017 [facility] - Left shoulder surgery - repair [...] plan. Briana Leggett APRN.CNP documented in this encounterMercy Health Willard Hospital05-14-2022 Instructions* Patient Instructions* Scot Carranza APRN.CNP [...] or develop severe swelling. documented in this encounterMercy Health Willard Hospital05-14-2022 History of Present illness Narrative* Scot Carranza APRN.CNP - 09/19/2021 8:40 AM EDT Images from the original note were not included. Subjective HPI Nontoxic-appearing female presents urgent care chief plaint dental infection. Duration of symptoms ongoing. Associated symptoms facial swelling pain. Patient states she has had on and off dental infections over the last few months. Was seen by me approximately 1 month ago. Did follow-up with [facility]. Does have an oral surgery appointment [...] 02/03/2018 Sinus arrhythmia 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 seen on school lunch monitor Smoker 06/24/2010 Snoring 09/29/2009 Sleep study completed [...] SURGICAL HISTORY OF Right 03/07/2019 [facility] - right arm surgery SHOULDER SURGERY HX Left 01/26/2017 [facility] - Left shoulder surgery - repair [...] neck. No erythema. No trismus. Mouth/Throat: Lips: [place]. Mouth: Mucous membranes are moist. Dentition: Abnormal [...] of care. This note was generated using MeeDoc software. It may contain errors in wording, punctuation, or spelling. Scot Carranza APRN.VELVET documented in this encounterMercy Health Willard Hospital03-25-2022 History of Present illness Narrative* Chela [...] subacromial bursa Informed Consent Consent Obtained: Verbal Ama Protocol A moment to CARE was completed. [...] dictating provider for clarification. documented in this encounterMercy Health Willard Hospital03-22-2016 History of Past illness Narrative* Problem [...] encounter (statuses as of 07/31/2021) [facility]03[facility] of Past illness Narrative* Problem [...] encounter (statuses as of 09/19/2021) [facility] of Past illness Narrative* Problem [...] encounter (statuses as of 10/16/2021) [facility] of Past illness Narrative* Problem [...] encounter (statuses as of 11/03/2021) [facility] of Past illness Narrative* Problem [...] encounter (statuses as of 11/04/2021) [facility] of Past illness Narrative* Problem [...] encounter (statuses as of 11/19/2021) [facility] illness Narrative* Problem [...] encounter (statuses as of 12/02/2021) [facility] illness Narrative* Problem [...] encounter (statuses as of 12/04/2021) [facility] illness Narrative* Problem [...] encounter (statuses as of 12/21/2021) [facility] illness Narrative* Problem [...] encounter (statuses as of 01/20/2022) [facility] Narrative* Problem [...] encounter (statuses as of 02/11/2022) [facility] Narrative* Problem [...] encounter (statuses as of 02/25/2022) [facility] Narrative* Problem [...] encounter (statuses as of 03/12/2022) [facility] Narrative* Problem [...] encounter (statuses as of 03/18/2022) [facility] Narrative* Problem [...] encounter (statuses as of 03/19/2022) [facility] Narrative* Problem [...] encounter (statuses as of 04/07/2022) [facility] Narrative* Problem [...] encounter (statuses as of 04/07/2022) [facility] Narrative* Problem [...] encounter (statuses as of 04/21/2022) [facility] Narrative* Problem [...] encounter (statuses as of 05/12/2022) [facility] Narrative* Problem [...] encounter (statuses as of 05/20/2022) [facility] Narrative* Problem [...] encounter (statuses as of 05/27/2022) [facility] Narrative* Problem [...] encounter (statuses as of 05/30/2022) [facility] Narrative* Problem [...] encounter (statuses as of 06/09/2022) [facility] Narrative* Problem [...] encounter (statuses as of 06/18/2022) [facility] Narrative* Problem [...] encounter (statuses as of 07/01/2022) [facility] Narrative* Problem [...] encounter (statuses as of 07/07/2022) [facility] Narrative* Problem [...] encounter (statuses as of 08/04/2022) [facility] Narrative* Problem [...] encounter (statuses as of 08/10/2022) [facility] Narrative* Problem [...] encounter (statuses as of 10/06/2022) [facility] Narrative* Problem [...] encounter (statuses as of 11/12/2022) [facility] Narrative* Problem [...] encounter (statuses as of 01/21/2023) [facility]* Problem [...] encounter (statuses as of 02/28/2023) [facility]* Problem [...] encounter (statuses as of 03/01/2023) [facility]* Problem [...] encounter (statuses as of 03/12/2023) [facility] Narrative* Problem [...] encounter (statuses as of 03/12/2023) [facility] Narrative* Problem [...] encounter (statuses as of 03/12/2023) [facility]ative* Problem [...] encounter (statuses as of 03/12/2023) [facility] Narrative* Problem [...] encounter (statuses as of 03/17/2023) [facility]* Problem [...] encounter (statuses as of 06/16/2023) [facility]* Problem [...] encounter (statuses as of 06/16/2023) [facility]* Problem [...] encounter (statuses as of 06/17/2023) [facility]* Problem [...] encounter (statuses as of 06/24/2023) [facility]* Problem [...] of this encounter (statuses as of 07/15/2023) [facility]* Problem [...] of this encounter (statuses as of 07/22/2023) [facility] Narrative* Problem [...] of this encounter (statuses as of 08/17/2023) [facility] HospitalEvaluation [facility]* Diagnosis Multiple joint complaints- Primary Unspecified joint disorder of multiple sites Chronic right shoulder pain Pain in joint, shoulder region Tendinitis of right shoulder Disorders of bursae and tendons in shoulder region, unspecified Impingement syndrome of right shoulder Other affections of shoulder region, not elsewhere classified documented in this encounter [facility] HospitalEvaluation [facility]* Diagnosis Onset Date Resolution Status Right shoulder pain acute Acute sinusitis, unspecified acute Trigeminal neuropathy chroni c [facility] Work Phone: Evaluation note* Diagnosis Pain, dental- Primary Unspecified disorder of the teeth and supporting structures documented in this encounter [facility] HospitalEvaluation [facility]* Diagnosis Onset Date Resolution Status Acute sinusitis, unspecified acute Trigeminal neuropathy [facility] Work Phone: Evaluation note* Diagnosis Moderate persistent asthma, uncomplicated- Primary Unspecified asthma Essential hypertension Unspecified essential hypertension Hyperlipidemia, mixed Mixed hyperlipidemia Facial paresthesia Palpitations documented in this encounter [facility] [place] [facility]* Diagnosis Bacterial sinusitis- Primary Unspecified sinusitis (chronic) documented in this encounter [facility]* Diagnosis Complex regional pain syndrome type [...] shoulder region, unspecified documented in this encounter [facility] HospitalEval[facility] [place] [facility]* Diagnosis Onset Date Resolution Status Essential hypertension chron ic Hyperlipidemia chronic Palpitations chronic PVC's (premature ventricular contractions) chronic Motor and vocal tic disorder chronic Neck pain chronic Trigeminal neuropathy [facility] Work Phone: Evaluation note* Diagnosis Alteration in vision- Primary Transient vision disturbance of right eye Unspecified visual disturbance Eyelid twitch Abnormal involuntary movements documented in this encounter [facility] [place] [facility]* Diagnosis Elbow pain, left- Primary Pain in joint, upper arm documented in this encounter [facility] [place] [facility]* Diagnosis Gastroesophageal reflux disease, unspecified whether esophagitis present Moderate persistent asthma, uncomplicated Unspecified asthma documented in this encounter [facility] [place] [facility]* Diagnosis Chest pain, unspecified type- Primary Facial paresthesia Intermittent tremor Abnormal involuntary movements Gastroesophageal reflux disease, unspecified whether esophagitis present Essential hypertension Unspecified essential hypertension Hyperlipidemia, mixed Mixed hyperlipidemia Molluscum contagiosum documented in this encounter [facility] [place] [facility]* Diagnosis Moderate persistent asthma with acute exacerbation Cough documented in this encounter [facility] [place] [facility]* Diagnosis Soft tissue mass- Primary Disorders of soft tissue, unspecified documented in this encounter [facility] [place] [facility]* Diagnosis Soft tissue mass- Primary Disorders of soft tissue, unspecified documented in this encounter [facility]Eval[facility] [place] [facility]* Diagnosis Acute pain of right shoulder- Primary Traumatic tear of right rotator cuff, unspecified tear extent, initial encounter documented in this encounter [facility]* Diagnosis Facial paresthesia- Primary Trigeminal nerve disorder Trigeminal nerve disorder, unspecified Intermittent tremor Abnormal involuntary movements Twitch Abnormal involuntary movements Tic disorder Tic disorder, unspecified documented in this encounter [facility]Eval[facility] [place] [facility]* Diagnosis Moderate persistent asthma, uncomplicated Unspecified asthma documented in this encounter [facility] [place] [facility]* Diagnosis Onset Date Resolution Status Essential hypertension chron ic Hyperlipidemia chronic Palpitations chronic PVC's (premature ventricular contractions) chronic [facility] Work Phone: Evaluation note* Diagnosis Facial paresthesia- Primary Trigeminal nerve disorder Trigeminal nerve disorder, unspecified Twitch Abnormal involuntary movements Tic disorder Tic disorder, unspecified Intermittent tremor Abnormal involuntary movements documented in this encounter [facility] [place] [facility]* Diagnosis Arm swelling- Primary Swelling of limb Acute pain of right shoulder Traumatic tear of right rotator cuff, unspecified tear extent, initial encounter documented in this encounter [facility]* Diagnosis Essential hypertension- Primary Unspecified essential hypertension Hyperlipidemia, mixed Mixed hyperlipidemia Palpitations Gastroesophageal reflux disease, unspecified whether esophagitis present Post traumatic stress disorder (PTSD) Posttraumatic stress disorder documented in this encounter [facility]* Diagnosis Onset Date Resolution Status Iliotibial band syndrome, left leg acute Pes anserinus bursitis of left knee noneactive Left knee pain noneactive Iliotibial band syndrome, left leg acute Patellofemoral disorders, left knee noneactive Pes anserinus bursitis of left knee noneactive Left knee pain noneactive [facility] Work Phone: Evaluation note* Diagnosis Essential hypertension Unspecified essential hypertension Hyperlipidemia, mixed Mixed hyperlipidemia documented in this encounter [facility]Eval[facility] [place] [facility]* Diagnosis Gastroesophageal reflux disease, unspecified whether esophagitis present documented in this encounter [facility]* Diagnosis Moderate persistent asthma with acute exacerbation Cough documented in this encounter [facility]* Diagnosis Onset Date Resolution Status Iliotibial band syndrome, left leg acute Patellofemoral disorders, left knee noneactive Pes anserinus bursitis of left knee noneactive Left knee pain noneactive Essential hypertension chron ic Hyperlipidemia chronic Palpitations chronic PVC's (premature ventricular contractions) chronic Patellofemoral maltracking a cute Patellofemoral syndrome of both knees acute [facility] Work Phone: Evaluation note* Diagnosis Arm swelling Swelling of limb documented in this encounter [facility] note* Diagnosis Moderate persistent asthma with acute exacerbation- Primary documented in this encounter [facility] note* Diagnosis Onset Date Resolution Status Essential hypertension chron ic Hyperlipidemia chronic Palpitations chronic PVC's (premature ventricular contractions) chronic Patellofemoral maltracking a cute Patellofemoral syndrome of both knees acute [facility] Work Phone: Evaluation note* Diagnosis Onset Date Resolution Status Patellofemoral maltracking a cute Patellofemoral syndrome of both knees acute [facility] Work Phone: Evaluation note* Diagnosis Acute vaginitis- Primary Vaginitis and vulvovaginitis, unspecified Hemorrhoids, unspecified hemorrhoid type documented in this encounter [facility] note* Diagnosis Onset Date Resolution Status Acute upper respiratory infection acute [facility] Work Phone: Evaluation note* Diagnosis Anal fissure- Primary Hemorrhoids, unspecified hemorrhoid type documented in this encounter [facility] note* Diagnosis Essential hypertension Unspecified essential hypertension Hyperlipidemia, mixed Mixed hyperlipidemia documented in this encounter [facility] note* Diagnosis Hidradenitis suppurativa- Primary Hidradenitis documented in this encounter [facility] note* Diagnosis Gastroesophageal reflux disease, unspecified whether esophagitis present documented in this encounter [facility] note* Diagnosis Nipple discharge- Primary Other sign and symptom in breast documented in this encounter [facility] note* Diagnosis Nipple discharge- Primary Other sign and symptom in breast documented in this encounter [facility] note* Diagnosis Nipple discharge Other sign and symptom in breast [facility] [place] [facility] Diagnosis Nipple discharge Other sign and symptom in breast [facility] [place] [facility]* Diagnosis URI, acute- Primary Acute upper respiratory infections of unspecified site Sore throat Acute pharyngitis documented in this encounter [facility] note* Diagnosis Mild intermittent asthma without complication- Primary Unspecified asthma documented in this encounter [facility] note* Diagnosis Nipple discharge Other sign and symptom in breast documented in this encounter [facility] note* Diagnosis Skin infection- Primary Unspecified local infection of skin and subcutaneous tissue [facility] Moderate persistent asthma, uncomplicated Unspecified asthma [facility] Diagnosis Vaginal itching- Primary Pruritus of genital organs Vulvar irritation Other specified noninflammatory disorder of vulva and perineum Encounter for IUD insertion Encounter for insertion of intrauterine contraceptive device Dysmenorrhea [facility] Diagnosis Bacterial vaginosis- Primary Vaginitis and vulvovaginitis, unspecified [facility] Diagnosis Chronic left shoulder pain- Primary Pain in joint, shoulder region Hyperlipidemia, mixed Mixed hyperlipidemia Tear of left biceps muscle, subsequent encounter Left arm weakness Other musculoskeletal symptoms referable to limbs PTSD (post-traumatic stress disorder) Posttraumatic stress disorder Anxiety and depression Dysthymic disorder Encounter for IUD insertion- Primary Encounter for insertion of intrauterine contraceptive device [facility] Diagnosis Chronic left shoulder pain- Primary Pain in joint, shoulder region Hyperlipidemia, mixed Mixed hyperlipidemia Tear of left biceps muscle, subsequent encounter Left arm weakness Other musculoskeletal symptoms referable to limbs PTSD (post-traumatic stress disorder) Posttraumatic stress disorder Anxiety and depression Dysthymic disorder Elbow pain, left Pain in joint, upper arm [facility] Diagnosis Chronic left shoulder pain- Primary Pain in joint, shoulder region Hyperlipidemia, mixed Mixed hyperlipidemia Tear of left biceps muscle, subsequent encounter Left arm weakness Other musculoskeletal symptoms referable to limbs PTSD (post-traumatic stress disorder) Posttraumatic stress disorder Anxiety and depression Dysthymic disorder Palpitations- Primary Paroxysmal tachycardia (HCC) Paroxysmal tachycardia, unspecified Moderate persistent asthma with acute exacerbation [facility] Diagnosis Chronic left shoulder pain- Primary Pain in joint, shoulder region Hyperlipidemia, mixed Mixed hyperlipidemia Tear of left biceps muscle, subsequent encounter Left arm weakness Other musculoskeletal symptoms referable to limbs PTSD (post-traumatic stress disorder) Posttraumatic stress disorder Anxiety and depression Dysthymic disorder Surveillance of previously prescribed intrauterine contraceptive device- Primary [facility] Diagnosis Hoarseness of voice- Primary Dysphonia Contact ulcer of vocal cord Other diseases of vocal cords documented in this encounter [facility] Work Phone: Evaluation note* Diagnosis Chronic [...] specified as infective [facility] Diagnosis Chronic left shoulder pain- Primary Pain in joint, shoulder region Hyperlipidemia, mixed Mixed hyperlipidemia Tear of left biceps muscle, subsequent encounter Left arm weakness Other musculoskeletal symptoms referable to limbs PTSD (post-traumatic stress disorder) Posttraumatic stress disorder Anxiety and depression Dysthymic disorder Urinary frequency- Primary Acute otitis externa of left ear, unspecified type [facility] Diagnosis Hoarseness of voice- Primary Dysphonia Lesion of vocal cord Other diseases of vocal cords documented in this encounter [facility] Work Phone: Evaluation note* Diagnosis Chronic [...] of unspecified site [facility] Diagnosis Chronic left shoulder pain- [...] complication Unspecified asthma [facility] Diagnosis Chronic left shoulder pain- Primary Pain in joint, shoulder region Hyperlipidemia, mixed Mixed hyperlipidemia Tear of left biceps muscle, subsequent encounter Left arm weakness Other musculoskeletal symptoms referable to limbs PTSD (post-traumatic stress disorder) Posttraumatic stress disorder Anxiety and depression Dysthymic disorder Moderate persistent asthma, uncomplicated Unspecified asthma [facility] [place] [facility] Diagnosis Chronic left shoulder pain- Primary Pain in joint, shoulder region Hyperlipidemia, mixed Mixed hyperlipidemia Tear of left biceps muscle, subsequent encounter Left arm weakness Other musculoskeletal symptoms referable to limbs PTSD (post-traumatic stress disorder) Posttraumatic stress disorder Anxiety and depression Dysthymic disorder Bacterial pneumonia Bacterial pneumonia, unspecified [facility] Diagnosis Family history of defect Family history of congenital anomalies [facility] Diagnosis Chronic left shoulder pain- Primary Pain in joint, shoulder region Hyperlipidemia, mixed Mixed hyperlipidemia Tear of left biceps muscle, subsequent encounter Left arm weakness Other musculoskeletal symptoms referable to limbs PTSD (post-traumatic stress disorder) Posttraumatic stress disorder Anxiety and depression Dysthymic disorder Nasal congestion- Primary Other diseases of nasal cavity and sinuses [facility] Diagnosis Chronic left shoulder pain- [...] single bacterial disease [facility] Diagnosis Chronic left shoulder pain- Primary Pain in joint, shoulder region Hyperlipidemia, mixed Mixed hyperlipidemia Tear of left biceps muscle, subsequent encounter Left arm weakness Other musculoskeletal symptoms referable to limbs PTSD (post-traumatic stress disorder) Posttraumatic stress disorder Anxiety and depression Dysthymic disorder Encounter for immunization- Primary Need for other specified prophylactic vaccination against single bacterial disease [facility] [place] [facility]* Diagnosis Chronic left shoulder pain- Primary Pain in joint, shoulder region Hyperlipidemia, mixed Mixed hyperlipidemia Tear of left biceps muscle, subsequent encounter Left arm weakness Other musculoskeletal symptoms referable to limbs PTSD (post-traumatic stress disorder) Posttraumatic stress disorder Anxiety and depression Dysthymic disorder URI, acute- Primary Acute upper respiratory infections of unspecified site [facility] Chronic left shoulder pain- [...] breath Acute cough [facility] Diagnosis Chronic left shoulder pain- Primary Pain in joint, shoulder region Hyperlipidemia, mixed Mixed hyperlipidemia Tear of left biceps muscle, subsequent encounter Left arm weakness Other musculoskeletal symptoms referable to limbs PTSD (post-traumatic stress disorder) Posttraumatic stress disorder Anxiety and depression Dysthymic disorder Moderate persistent asthma, uncomplicated- Primary Unspecified asthma Wheezing Shortness of breath [facility] [place] [facility]* Diagnosis Chronic left shoulder pain- Primary Pain in joint, shoulder region Hyperlipidemia, mixed Mixed hyperlipidemia Tear of left biceps muscle, subsequent encounter Left arm weakness Other musculoskeletal symptoms referable to limbs PTSD (post-traumatic stress disorder) Posttraumatic stress disorder Anxiety and depression Dysthymic disorder Moderate persistent asthma, uncomplicated (HCC) Unspecified asthma [facility] Diagnosis Chronic left shoulder pain- [...] vitamin D deficiency [facility] [place] [facility] Diagnosis Chronic left shoulder pain- Primary [...] specified cardiac dysrhythmias [facility] Diagnosis Chronic left shoulder pain- Primary Pain in joint, shoulder region Hyperlipidemia, mixed Mixed hyperlipidemia Tear of left biceps muscle, subsequent encounter Left arm weakness Other musculoskeletal symptoms referable to limbs PTSD (post-traumatic stress disorder) Posttraumatic stress disorder Anxiety and depression Dysthymic disorder Hyperlipidemia, mixed Mixed hyperlipidemia [facility] [place] [facility]* Diagnosis Onset Date Resolution Status Admit Date Essential hypertension chronic Ju 2024 10:27am Hyperlipidemia chronic October 19, 2024 10:27am Palpitations chronic October 19, 2 025 10:27am PVC's (premature ventricular contractions) chronic October 19, 2024 10:27am [facility] Work Phone: Evaluation note* Diagnosis Chronic [...] depression Dysthymic disorder [facility] Diagnosis Chronic left shoulder pain- Primary [...] specified cardiac dysrhythmias [facility] Diagnosis Chronic left shoulder pain- Primary Pain in joint, shoulder region Hyperlipidemia, mixed Mixed hyperlipidemia Tear of left biceps muscle, subsequent encounter Left arm weakness Other musculoskeletal symptoms referable to limbs PTSD (post-traumatic stress disorder) Posttraumatic stress disorder Anxiety and depression Dysthymic disorder Moderate persistent asthma, uncomplicated (HCC) Unspecified asthma Paroxysmal tachycardia (HCC) Paroxysmal tachycardia, unspecified Palpitations PVC (premature ventricular contraction) Other premature beats Dizziness Dizziness and giddiness Near syncope Syncope and collapse documented in this encounter [facility] [place] for referral (narrative)* Diagnostic Procedure Only (Urgent) - Closed Specialty Diagnoses / Procedures Referred By Contac t Referred To Contact XR IMAGING Diagnoses Elbow pain, left Procedures XR ELBOW SPECIAL VIEWS AP/LAT/OTHER LEFT RADEX ELBOW COMPLETE MINIMUM 3 VIEWS Ferrell, Heber J, MD [address] [place] [address] Xr Imaging Referral ID Status Reason Start Date Expiration Date V isits Requested Visits Authorized [id number] Closed Auto-Generate d Referral 12/04/2021 01/03/2023 1 1 [facility] for referral (narrative)* Outpatient Procedure (Routine) - Pending Review Specialty Diagnoses / Procedures Referred By Contac t Referred To Contact [facility] Diagnoses Twitch Tic disorder Procedures EPIL EEG ROUTINE ELECTROENCEPHALOGRAM REC COMA/[place] [address] [place] [id number] [facility] [place] [address] [place] [address] Referral ID Status Reason Start Date Expiration Date Visits Requested Visits Authorized [id number] Pending Review Auto-Generat ed Referral 2 05/07/2023 1 1 [facility] [place] for referral (narrative)* Diagnostic Procedure Only (Routine) - Pending Review Specialty Diagnoses / Procedures Referred By Contac t Referred To Contact XR IMAGING Diagnoses Arm swelling Procedures XR CHEST 1V FRONTAL PORT RADIOLOGIC EXAM CHEST SINGLE VIEW Chela Sheridan DO [address] [place] [address] Xr Imaging Referral ID Status Reason Start Date Expiration Date Visits Requested Visits Authorized [id number] Pending Review Auto-Generat ed Referral 06/18/2022 07/18/2023 1 1 * Diagnostic Procedure Only (Routine) - Pending Review Specialty Diagnoses / Procedures Referred By Contac t Referred To Contact US IMAGING Diagnoses Arm swelling Procedures US MUSCLE RT US LMTD JOINT/OTH NONVASC XTR STRUX R-T W/IMG Chela Sheridan Marie, DO [address] [place] [address] Us Imaging Referral ID Status Reason Start Date Expiration Date Visits Requested Visits Authorized [id number] Pending Review Auto-Generat ed Referral 06/18/2022 07/18/2023 1 1 [facility] [place] for referral (narrative)* Diagnostic Procedure Only (Routine) - Authorized Specialty Diagnoses / Procedures Referred By Contac t Referred To Contact BR IMAGING Diagnoses Nipple discharge Procedures BELEN DIAGNOSTIC BILATERAL DIAGNOSTIC MAMMOGRAPHY COMPUTER-AIDED DETCJ BI Isabel Morales APRN.CNM [address] [place] [address] [facility] [address] [place] [address] Referral ID Status Reason Start Date Expiration Date Visits Requested Visits Authorized [id number] Authorized Auto-Generat ed Referral 09/07/2023 10/06/2024 1 1 * Diagnostic Procedure Only (Routine) - Pending Review Specialty Diagnoses / Procedures Referred By Contac t Referred To Contact BR IMAGING Diagnoses Nipple discharge Procedures US BREAST LTD RIGHT US BREAST UNI REAL TIME WITH IMAGE LIMITED Isabel Morales APRN.CNM [address] [place] [address] [facility] [address] [place] [address] Referral ID Status Reason Start Date Expiration Date Visits Requested Visits Authorized [id number] Pending Review Auto-Generat ed Referral 09/07/2023 10/06/2024 1 1 [facility] [place] for referral (narrative)* Diagnostic Procedure Only (Routine) - Closed Specialty Diagnoses / Procedures Referred By Contac t Referred To Contact BR IMAGING Diagnoses Nipple discharge Procedures US BREAST LTD RIGHT US BREAST UNI REAL TIME WITH IMAGE LIMITED Isabel Morales APRN.CNM [address] [place] [address] [facility] [address] [place] [address] Referral ID Status Reason Start Date Expiration Date V isits Requested Visits Authorized [id number] Closed Auto-Generate d Referral 09/07/2023 10/06/2024 1 1 [facility] for referral (narrative)* Outpatient Procedure (Routine) - Pending Review Specialty Diagnoses / Procedures Referred By Contac t Referred To Contact [facility] Diagnoses Dysmenorrhea Procedures INSERT INTRAUTERINE DEVICE LEVONORGESTREL IU 52MG 5 YR INSERT INTRAUTERINE DEVICE Adele Costa APRN.MEDIA RELATIONS DIRECTOR [address] [place] [address] [facility] [address] [place] [address] Referral ID Status Reason Start Date Expiration Date Visits Requested Visits Authorized [id number] Pending Review Auto-Generat ed Referral 12/14/2023 12/13/2024 1 1 T [facility] for referral (narrative)* Diagnostic Procedure Only (Urgent) - Closed Specialty Diagnoses / Procedures Referred By Contac t Referred To Contact XR IMAGING Diagnoses Elbow pain, left Procedures XR ELBOW SPECIAL VIEWS AP/LAT/OTHER LEFT RADEX ELBOW COMPLETE MINIMUM 3 VIEWS Heber Ferrell MD [address] [place] [address] [place] [address] Referral ID Status Reason Start Date Expiration Date V isits Requested Visits Authorized [id number] Closed Auto-Generate d Referral 12/04/2021 01/03/2023 1 1 [facility] for referral (narrative)* Consultation (Routine) - Pending Review Specialty Diagnoses / Procedures Referred By Contac t Referred To Contact Speech Pathology / Speech Therapy Diagnoses [place] [address] [place] [address] Referral ID Status Reason Start Date Expiration Date Visits Requested Visits Authorized [id number] Pending Review Specialty Services Required 4 02/15/2025 1 1 [facility] Work Phone: Reason for referral (narrative)* Diagnostic Procedure Only (Routine) - Authorized Specialty Diagnoses / Procedures Referred By Rodolfo witt Referred To Contact BR IMAGING Diagnoses Encounter for screening mammogram for malignant neoplasm of breast Procedures BELEN SCREENING W SANTINO SCREENING DIGITAL BREAST TOMOSYNTHESIS BI SCREENING MAMMOGRAPHY BI 2-VIEW BREAST INC CAD Nga Michel MD [address] [place] [address] [facility] [address] [place] [address] Referral ID Status Reason Start Date Expiration Date Visits Requested Visits Authorized [id number] Authorized Auto-Generat ed Referral 4 04/04/2025 1 1 T [facility] for referral (narrative)No [facility] for [facility] for [facility] Narrative* Diagnostic Procedure Only (Routine) - Authorized Specialty Diagnoses / Procedures Referred By Rodolfo witt Referred To Contact XR IMAGING Diagnoses Arm swelling Procedures XR CHEST 1V FRONTAL PORT RADIOLOGIC EXAM CHEST SINGLE VIEW Chela Sheridan DO [address] [place] [address] [place] [address] Referral ID Status Reason Start Date Expiration Date Visits Requested Visits Authorized [id number] Authorized Auto-Generat ed Referral 06/18/2022 07/18/2023 1 1 [facility] for visit Narrative* Diagnostic Procedure Only (Routine) - Closed Specialty Diagnoses / Procedures Referred By Contac t Referred To Contact BR IMAGING Diagnoses Nipple discharge Procedures BELEN DIAGNOSTIC BILATERAL DIAGNOSTIC MAMMOGRAPHY COMPUTER-AIDED DETCJ Isabel Haskins, WENDY.CNM [address] [place] [address] [facility] [address] [place] [address] Referral ID Status Reason Start Date Expiration Date V isits Requested Visits Authorized [id number] Closed Auto-Generate d Referral 09/07/2023 10/06/2024 1 1 [facility] for visit Narrative* Diagnostic Procedure Only (Urgent) - Closed Specialty Diagnoses / Procedures Referred By Contac t Referred To Contact XR IMAGING Diagnoses Elbow pain, left Procedures XR ELBOW SPECIAL VIEWS AP/LAT/OTHER LEFT RADEX ELBOW COMPLETE MINIMUM 3 VIEWS Heber Ferrell MD [address] [place] [address] [place] [address] Referral ID Status Reason Start Date Expiration Date V isits Requested Visits Authorized [id number] Closed Auto-Generate d Referral 12/04/2021 01/03/2023 1 1 [facility] for visit Narrative* Referral (Routine) - Open Specialty Diagnoses / Procedures Referred By Contac t Referred To Contact Diagnoses Family history of defect Procedures Genetic Sendout: Grandparent sample for whole exome sequencing [place] [address] Phone: tel: fax: Referral ID Status Reason Start Date Expiration Date Visits Re quested Visits Authorized [id number] Open 05/25/2024 05/25/2025 1 1 [facility] Summary Purpose Family History Relationship Condition Age at Onset Recorded Date/T cady mother Rheumatoid arthritis Unknown Cardiac disease Unknown father Diabetes mellitus Unknown Chronic obstructive pulmonary disease Unk nown sister Asthma Unknown Diabetes mellitus Unknown grandmother Transient ischemic attack Unknown Advance Directives Documents on File Type Date Recorded 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 Power of Exercise Equipment Specialist Documents on File Type Date Recorded 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 Advance Directive(s) 12/31/2019 8:28 AM Advance Directive(s) 02/12/2014 7:36 AM Advance Directive(s) 02/12/2014 7:38 AM Advance Directive Response Recorded Date/ Time Advance Directives No March 09, 2021 1:08pm Living Will Yes September 11, 2021 10 :22pm Power of Exercise Equipment Specialist No September 11, 2021 10:22pm Documents on File Type Date Recorded 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 Advance Directive(s) 12/31/2019 8:28 AM Advance Directive(s) 02/12/2014 7:36 AM Advance Directive(s) 02/12/2014 7:38 AM Documents on File Type Date Recorded 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 Advance Directive(s) 02/12/2014 7:36 AM Advance Directive(s) 02/12/2014 7:38 AM Documents on File Type Date Recorded 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 Advance Directive(s) 02/12/2014 7:36 AM Advance Directive(s) 02/12/2014 7:38 AM Advance Directive Response Recorded Date/ Time Advance Directives No March 09, 2021 12:08pm Living Will Yes September 11, 2021 9: 22pm Power of Exercise Equipment Specialist No September 11, 2021 9:22pm Documents on File Type Date Recorded 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 No December 16, 2024 11:28am Advance Directives No March 09, 2021 1:08pm Reason for Referral Specialty Diagnoses / Procedures Referred By Rodolfo witt Referred To Contact Rheumatology Diagnoses Multiple joint complaints Procedures CONSULT TO RHEUM/IMMUN DISEASE OFFICE/OUTPATIENT [facility] 60-74 MINUTES Chela Sheridan DO [facility] [address] Referral ID Status Reason Start Date Expiration Date Visits Requested Visits Authorized [id number] Authorized PCP Requested Referral 07/31/2021 07/31/2022 1 1 Specialty Diagnoses / Procedures Referred By Rodolfo witt Referred To Contact Neurology Diagnoses Facial paresthesia Intermittent tremor Procedures CONSULT TO NEUROLOGY OFFICE/OUTPATIENT [facility] 60-74 MINUTES Briana Leggett APRN.MEDIA RELATIONS DIRECTOR [address] [place] [address] Referral ID Status Reason Start Date Expiration Date Visits Requested Visits Authorized [id number] Authorized PCP Requested Referral 01/18/2022 01/18/2023 1 1 Specialty Diagnoses / Procedures Referred By Contac t Referred To [facility] Diagnoses Chest pain, unspecified type Procedures ECG COMPLETE ECG ROUTINE ECG W/LEAST 12 LDS W/I&R Briana Leggett APRN.MEDIA RELATIONS DIRECTOR [address] [place] [address] [facility] [address] [place] [address] Referral ID Status Reason Start Date Expiration Date Visits Requested Visits Authorized [id number] Authorized Auto-Generat ed Referral 01/18/2022 01/18/2023 1 1 Specialty Diagnoses / Procedures Referred By Contac t Referred To Contact Diagnoses Moderate persistent asthma with acute exacerbation Cough Briana Leggett APRN.MEDIA RELATIONS DIRECTOR [address] [place] [address] Referral ID Status Reason Start Date Expiration Date Visits Re quested Visits Authorized [id number] Closed 1 1 Specialty Diagnoses / Procedures Referred By Contac t Referred To Contact CT IMAGING Diagnoses Soft tissue mass Procedures CT PELVIS W IVCON CT PELVIS W/CONTRAST MATERIAL Zayra Becker MD [address] [place] [address] Ct Imaging Referral ID Status Reason Start Date Expiration Date Visits Requested Visits Authorized [id number] Authorized Auto-Generat ed Referral 03/12/2022 05/11/2022 1 1 Specialty Diagnoses / Procedures Referred By Contac t Referred To Contact General Surgery Diagnoses Soft tissue mass Procedures CONSULT TO GENERAL SURGERY OFFICE/OUTPATIENT [facility] 60-74 MINUTES Zayra Becker MD [address] [place] [address] Referral ID Status Reason Start Date Expiration Date Visits Requested Visits Authorized [id number] Authorized PCP Requested Referral 03/18/2023 1 1 Specialty Diagnoses / Procedures Referred By Belkisac t Referred To Contact MR IMAGING Diagnoses Acute pain of right shoulder Traumatic tear of right rotator cuff, unspecified tear extent, initial encounter Procedures MRI SHOULDER WO IVCON RT MRI ANY JT UPPER EXTREMITY W/O CONTRAST TERRENCEL Mitchel Staton MD [address] [place] [address] Mr Imaging Referral ID Status Reason Start Date Expiration Date Visits Requested Visits Authorized [id number] Additional Clinical Info Needed Auto-Generat ed Referral 04/12/2022 05/12/2023 1 1 Referral ID Status Reason Start Date Expiration Date Visits Re quested Visits Authorized [id number] Closed 1 1 Specialty Diagnoses / Procedures Referred By Rodolfo t Referred To Contact Gastroenterology Diagnoses Hemorrhoids, unspecified hemorrhoid type Procedures CONSULT TO GASTROENTEROLOGY OFFICE/OUTPATIENT [facility] 60 MINUTES Adele Costa APRN.MEDIA RELATIONS DIRECTOR [address] [place] [address] Referral ID Status Reason Start Date Expiration Date Visits Requested Visits Authorized [id number] Authorized PCP Requested Referral 06/16/2023 06/15/2024 1 1 Specialty Diagnoses / Procedures Referred By Rodolfo t Referred To Contact General Surgery Diagnoses Nipple discharge Procedures CONSULT TO GENERAL SURGERY OFFICE/OUTPATIENT [facility] 60 MINUTES Pauline Puentes MD [address] [place] [address] Referral ID Status Reason Start Date Expiration Date Visits Requested Visits Authorized [id number] Authorized PCP Requested Referral 09/14/2023 09/13/2024 1 [...] at 193 Given 07/31/2021 7:30 PM EDT 8 mL triamcinolone acetonide 80 mg injection (KENALOG 40) 80 mg, Injection - FOR ORTHO USE ONLY, ONE TIME INJECTION, 1 dose, Starting on Tue07/31/21 at 1930, Until Tue07/31/21 at 193 Given 07/31/2021 7:30 PM EDT 80 mg Active Administered Medications - up to 3 most recent administrations Medication Order MAR Action Action Date Dose Rate Site fluorescein-benoxinate 0.25-0.4 % 1 Drop (FLURESS) 1 Drop, BOTH EYES, DIRECTED, Starting on Tue12/02/21 at 0930, Until Tue12/02/21 at 2128, Administer for applanation tonometry. In the event of a Fluress shortage, administer [place]-Fluor 1 drop into both eyes as directed [...] Complaint and Reason for Visit Chief Complaint Admit Date ABN HOLTER October 19, 2024 10:2 7am upper extrmity December 16, 2024 11 :11am Reason for Visit Admit Date Essential hypertension October 19, 2024 1 0:27am Hyperlipidemia October 19, 2024 10:2 7am Palpitations October 19, 2024 10:2 7am PVC's (premature ventricular contraction s) October 19, 2024 10:27am Chief Complaint right shoulder NASAL CONGESTION/PRESSURE/COVID TEST [...] ABN HOLTER October 19, 2024 10:2 7am Additional Source Comments INFORMATION SOURCE (unrecogn ized section and content) DATE CREATED AUTHOR 08/05/2018 [facility] DATE CREATED AUTHOR AUTHOR'S ORGANIZ ATION 11/29/2019 [facility] DATE CREATED AUTHOR AUTHOR'S ORGANIZ ATION 12/24/2022 [facility] DATE CREATED AUTHOR AUTHOR'S ORGANIZ ATION 03/26/[address] [facility] DATE CREATED AUTHOR AUTHOR'S ORGANIZ ATION 04/05/2024 [facility] DATE CREATED AUTHOR AUTHOR'S ORGANIZ ATION 06/24/2024 [facility] DATE CREATED AUTHOR AUTHOR'S ORGANIZ ATION 11/06/2024 [facility] DATE CREATED AUTHOR AUTHOR'S ORGANIZ ATION 12/21/2024 [facility] DATE CREATED AUTHOR AUTHOR'S ORGANIZ ATION 12/28/2024 [facility] Source Comments (unrecognize d section and content) In the event this informatio n is protected by the Federal Confidentiality of Alcohol and Drug Abuse Patient Records regulations: The Federal rules restrict any use of the information to criminally investigate or prosecute any alcohol or drug abuse patient.[facility] HospitalIn the event this information is protected by the Federal Confidentiality of Alcohol and Drug Abuse Patient Records regulations: The Federal rules restrict any use of the information to criminally investigate or prosecute any alcohol or drug abuse patient.[facility] HospitalIn the event this information is protected by the Federal Confidentiality of Alcohol and Drug Abuse Patient Records regulations: The Federal rules restrict any use of the information to criminally investigate or prosecute any alcohol or drug abuse patient.[facility] HospitalIn the event this information is protected by the Federal Confidentiality of Alcohol and Drug Abuse Patient Records regulations: The Federal rules restrict any use of the information to criminally investigate or prosecute any alcohol or drug abuse patient.[facility] HospitalIn the event this information is protected by the Federal Confidentiality of Alcohol and Drug Abuse Patient Records regulations: The Federal rules restrict any use of the information to criminally investigate or prosecute any alcohol or drug abuse patient.[facility] HospitalIn the event this information is protected by the Federal Confidentiality of Alcohol and Drug Abuse Patient Records regulations: The Federal rules restrict any use of the information to criminally investigate or prosecute any alcohol or drug abuse patient.[facility] HospitalIn the event this information is protected by the Federal Confidentiality of Alcohol and Drug Abuse Patient Records regulations: The Federal rules restrict any use of the information to criminally investigate or prosecute any alcohol or drug abuse patient.[facility] HospitalIn the event this information is protected by the Federal Confidentiality of Alcohol and Drug Abuse Patient Records regulations: The Federal rules restrict any use of the information to criminally investigate or prosecute any alcohol or drug abuse patient.[facility] HospitalIn the event this information is protected by the Federal Confidentiality of Alcohol and Drug Abuse Patient Records regulations: The Federal rules restrict any use of the information to criminally investigate or prosecute any alcohol or drug abuse patient.[facility] HospitalIn the event this information is protected by the Federal Confidentiality of Alcohol and Drug Abuse Patient Records regulations: The Federal rules restrict any use of the information to criminally investigate or prosecute any alcohol or drug abuse patient.[facility] HospitalIn the event this information is protected by the Federal Confidentiality of Alcohol and Drug Abuse Patient Records regulations: The Federal rules restrict any use of the information to criminally investigate or prosecute any alcohol or drug abuse patient.[facility] HospitalIn the event this information is protected by the Federal Confidentiality of Alcohol and Drug Abuse Patient Records regulations: The Federal rules restrict any use of the information to criminally investigate or prosecute any alcohol or drug abuse patient.[facility] HospitalIn the event this information is protected by the Federal Confidentiality of Alcohol and Drug Abuse Patient Records regulations: The Federal rules restrict any use of the information to criminally investigate or prosecute any alcohol or drug abuse patient.[facility] HospitalIn the event this information is protected by the Federal Confidentiality of Alcohol and Drug Abuse Patient Records regulations: The Federal rules restrict any use of the information to criminally investigate or prosecute any alcohol or drug abuse patient.[facility] HospitalIn the event this information is protected by the Federal Confidentiality of Alcohol and Drug Abuse Patient Records regulations: The Federal rules restrict any use of the information to criminally investigate or prosecute any alcohol or drug abuse patient.[facility] HospitalIn the event this information is protected by the Federal Confidentiality of Alcohol and Drug Abuse Patient Records regulations: The Federal rules restrict any use of the information to criminally investigate or prosecute any alcohol or drug abuse patient.[facility] HospitalIn the event this information is protected by the Federal Confidentiality of Alcohol and Drug Abuse Patient Records regulations: The Federal rules restrict any use of the information to criminally investigate or prosecute any alcohol or drug abuse patient.[facility] HospitalIn the event this information is protected by the Federal Confidentiality of Alcohol and Drug Abuse Patient Records regulations: The Federal rules restrict any use of the information to criminally investigate or prosecute any alcohol or drug abuse patient.[facility] HospitalIn the event this information is protected by the Federal Confidentiality of Alcohol and Drug Abuse Patient Records regulations: The Federal rules restrict any use of the information to criminally investigate or prosecute any alcohol or drug abuse patient.[facility] HospitalIn the event this information is protected by the Federal Confidentiality of Alcohol and Drug Abuse Patient Records regulations: The Federal rules restrict any use of the information to criminally investigate or prosecute any alcohol or drug abuse patient.[facility] HospitalIn the event this information is protected by the Federal Confidentiality of Alcohol and Drug Abuse Patient Records regulations: The Federal rules restrict any use of the information to criminally investigate or prosecute any alcohol or drug abuse patient.[facility] HospitalIn the event this information is protected by the Federal Confidentiality of Alcohol and Drug Abuse Patient Records regulations: The Federal rules restrict any use of the information to criminally investigate or prosecute any alcohol or drug abuse patient.[facility] HospitalIn the event this information is protected by the Federal Confidentiality of Alcohol and Drug Abuse Patient Records regulations: The Federal rules restrict any use of the information to criminally investigate or prosecute any alcohol or drug abuse patient.[facility] HospitalIn the event this information is protected by the Federal Confidentiality of Alcohol and Drug Abuse Patient Records regulations: The Federal rules restrict any use of the information to criminally investigate or prosecute any alcohol or drug abuse patient.[facility] HospitalIn the event this information is protected by the Federal Confidentiality of Alcohol and Drug Abuse Patient Records regulations: The Federal rules restrict any use of the information to criminally investigate or prosecute any alcohol or drug abuse patient.[facility] HospitalIn the event this information is protected by the Federal Confidentiality of Alcohol and Drug Abuse Patient Records regulations: The Federal rules restrict any use of the information to criminally investigate or prosecute any alcohol or drug abuse patient.[facility] HospitalIn the event this information is protected by the Federal Confidentiality of Alcohol and Drug Abuse Patient Records regulations: The Federal rules restrict any use of the information to criminally investigate or prosecute any alcohol or drug abuse patient.[facility] HospitalIn the event this information is protected by the Federal Confidentiality of Alcohol and Drug Abuse Patient Records regulations: The Federal rules restrict any use of the information to criminally investigate or prosecute any alcohol or drug abuse patient.[facility] HospitalIn the event this information is protected by the Federal Confidentiality of Alcohol and Drug Abuse Patient Records regulations: The Federal rules restrict any use of the information to criminally investigate or prosecute any alcohol or drug abuse patient.[facility] HospitalIn the event this information is protected by the Federal Confidentiality of Alcohol and Drug Abuse Patient Records regulations: The Federal rules restrict any use of the information to criminally investigate or prosecute any alcohol or drug abuse patient.[facility] HospitalIn the event this information is protected by the Federal Confidentiality of Alcohol and Drug Abuse Patient Records regulations: The Federal rules restrict any use of the information to criminally investigate or prosecute any alcohol or drug abuse patient.[facility] HospitalIn the event this information is protected by the Federal Confidentiality of Alcohol and Drug Abuse Patient Records regulations: The Federal rules restrict any use of the information to criminally investigate or prosecute any alcohol or drug abuse patient.[facility] HospitalIn the event this information is protected by the Federal Confidentiality of Alcohol and Drug Abuse Patient Records regulations: The Federal rules restrict any use of the information to criminally investigate or prosecute any alcohol or drug abuse patient.[facility] HospitalIn the event this information is protected by the Federal Confidentiality of Alcohol and Drug Abuse Patient Records regulations: The Federal rules restrict any use of the information to criminally investigate or prosecute any alcohol or drug abuse patient.[facility] HospitalIn the event this information is protected by the Federal Confidentiality of Alcohol and Drug Abuse Patient Records regulations: The Federal rules restrict any use of the information to criminally investigate or prosecute any alcohol or drug abuse patient.[facility] HospitalIn the event this information is protected by the Federal Confidentiality of Alcohol and Drug Abuse Patient Records regulations: The Federal rules restrict any use of the information to criminally investigate or prosecute any alcohol or drug abuse patient.[facility] HospitalIn the event this information is protected by the Federal Confidentiality of Alcohol and Drug Abuse Patient Records regulations: The Federal rules restrict any use of the information to criminally investigate or prosecute any alcohol or drug abuse patient.[facility] HospitalIn the event this information is protected by the Federal Confidentiality of Alcohol and Drug Abuse Patient Records regulations: The Federal rules restrict any use of the information to criminally investigate or prosecute any alcohol or drug abuse patient.[facility] HospitalIn the event this information is protected by the Federal Confidentiality of Alcohol and Drug Abuse Patient Records regulations: The Federal rules restrict any use of the information to criminally investigate or prosecute any alcohol or drug abuse patient.[facility] HospitalIn the event this information is protected by the Federal Confidentiality of Alcohol and Drug Abuse Patient Records regulations: The Federal rules restrict any use of the information to criminally investigate or prosecute any alcohol or drug abuse patient.[facility] HospitalIn the event this information is protected by the Federal Confidentiality of Alcohol and Drug Abuse Patient Records regulations: The Federal rules restrict any use of the information to criminally investigate or prosecute any alcohol or drug abuse patient.[facility] HospitalIn the event this information is protected by the Federal Confidentiality of Alcohol and Drug Abuse Patient Records regulations: The Federal rules restrict any use of the information to criminally investigate or prosecute any alcohol or drug abuse patient.[facility] HospitalIn the event this information is protected by the Federal Confidentiality of Alcohol and Drug Abuse Patient Records regulations: The Federal rules restrict any use of the information to criminally investigate or prosecute any alcohol or drug abuse patient.[facility] HospitalIn the event this information is protected by the Federal Confidentiality of Alcohol and Drug Abuse Patient Records regulations: The Federal rules restrict any use of the information to criminally investigate or prosecute any alcohol or drug abuse patient.[facility] HospitalIn the event this information is protected by the Federal Confidentiality of Alcohol and Drug Abuse Patient Records regulations: The Federal rules restrict any use of the information to criminally investigate or prosecute any alcohol or drug abuse patient.[facility] HospitalIn the event this information is protected by the Federal Confidentiality of Alcohol and Drug Abuse Patient Records regulations: The Federal rules restrict any use of the information to criminally investigate or prosecute any alcohol or drug abuse patient.[facility] HospitalIn the event this information is protected by the Federal Confidentiality of Alcohol and Drug Abuse Patient Records regulations: The Federal rules restrict any use of the information to criminally investigate or prosecute any alcohol or drug abuse patient.[facility] HospitalIn the event this information is protected by the Federal Confidentiality of Alcohol and Drug Abuse Patient Records regulations: The Federal rules restrict any use of the information to criminally investigate or prosecute any alcohol or drug abuse patient.[facility] HospitalIn the event this information is protected by the Federal Confidentiality of Alcohol and Drug Abuse Patient Records regulations: The Federal rules restrict any use of the information to criminally investigate or prosecute any alcohol or drug abuse patient.[facility] HospitalIn the event this information is protected by the Federal Confidentiality of Alcohol and Drug Abuse Patient Records regulations: The Federal rules restrict any use of the information to criminally investigate or prosecute any alcohol or drug abuse patient.[facility] HospitalIn the event this information is protected by the Federal Confidentiality of Alcohol and Drug Abuse Patient Records regulations: The Federal rules restrict any use of the information to criminally investigate or prosecute any alcohol or drug abuse patient.[facility] HospitalIn the event this information is protected by the Federal Confidentiality of Alcohol and Drug Abuse Patient Records regulations: The Federal rules restrict any use of the information to criminally investigate or prosecute any alcohol or drug abuse patient.[facility] HospitalIn the event this information is protected by the Federal Confidentiality of Alcohol and Drug Abuse Patient Records regulations: The Federal rules restrict any use of the information to criminally investigate or prosecute any alcohol or drug abuse patient.[facility] HospitalIn the event this information is protected by the Federal Confidentiality of Alcohol and Drug Abuse Patient Records regulations: The Federal rules restrict any use of the information to criminally investigate or prosecute any alcohol or drug abuse patient.[facility] HospitalIn the event this information is protected by the Federal Confidentiality of Alcohol and Drug Abuse Patient Records regulations: The Federal rules restrict any use of the information to criminally investigate or prosecute any alcohol or drug abuse patient.[facility] HospitalIn the event this information is protected by the Federal Confidentiality of Alcohol and Drug Abuse Patient Records regulations: The Federal rules restrict any use of the information to criminally investigate or prosecute any alcohol or drug abuse patient.[facility] HospitalIn the event this information is protected by the Federal Confidentiality of Alcohol and Drug Abuse Patient Records regulations: The Federal rules restrict any use of the information to criminally investigate or prosecute any alcohol or drug abuse patient.[facility] HospitalIn the event this information is protected by the Federal Confidentiality of Alcohol and Drug Abuse Patient Records regulations: The Federal rules restrict any use of the information to criminally investigate or prosecute any alcohol or drug abuse patient.[facility] HospitalIn the event this information is protected by the Federal Confidentiality of Alcohol and Drug Abuse Patient Records regulations: The Federal rules restrict any use of the information to criminally investigate or prosecute any alcohol or drug abuse patient.[facility] HospitalIn the event this information is protected by the Federal Confidentiality of Alcohol and Drug Abuse Patient Records regulations: The Federal rules restrict any use of the information to criminally investigate or prosecute any alcohol or drug abuse patient.[facility] HospitalIn the event this information is protected by the Federal Confidentiality of Alcohol and Drug Abuse Patient Records regulations: The Federal rules restrict any use of the information to criminally investigate or prosecute any alcohol or drug abuse patient.[facility] HospitalIn the event this information is protected by the Federal Confidentiality of Alcohol and Drug Abuse Patient Records regulations: The Federal rules restrict any use of the information to criminally investigate or prosecute any alcohol or drug abuse patient.[facility] HospitalIn the event this information is protected by the Federal Confidentiality of Alcohol and Drug Abuse Patient Records regulations: The Federal rules restrict any use of the information to criminally investigate or prosecute any alcohol or drug abuse patient.[facility] HospitalIn the event this information is protected by the Federal Confidentiality of Alcohol and Drug Abuse Patient Records regulations: The Federal rules restrict any use of the information to criminally investigate or prosecute any alcohol or drug abuse patient.[facility] HospitalIn the event this information is protected by the Federal Confidentiality of Alcohol and Drug Abuse Patient Records regulations: The Federal rules restrict any use of the information to criminally investigate or prosecute any alcohol or drug abuse patient.[facility] HospitalIn the event this information is protected by the Federal Confidentiality of Alcohol and Drug Abuse Patient Records regulations: The Federal rules restrict any use of the information to criminally investigate or prosecute any alcohol or drug abuse patient.[facility] HospitalIn the event this information is protected by the Federal Confidentiality of Alcohol and Drug Abuse Patient Records regulations: The Federal rules restrict any use of the information to criminally investigate or prosecute any alcohol or drug abuse patient.[facility] HospitalIn the event this information is protected by the Federal Confidentiality of Alcohol and Drug Abuse Patient Records regulations: The Federal rules restrict any use of the information to criminally investigate or prosecute any alcohol or drug abuse patient.[facility] HospitalIn the event this information is protected by the Federal Confidentiality of Alcohol and Drug Abuse Patient Records regulations: The Federal rules restrict any use of the information to criminally investigate or prosecute any alcohol or drug abuse patient.[facility] HospitalIn the event this information is protected by the Federal Confidentiality of Alcohol and Drug Abuse Patient Records regulations: The Federal rules restrict any use of the information to criminally investigate or prosecute any alcohol or drug abuse patient.[facility] HospitalIn the event this information is protected by the Federal Confidentiality of Alcohol and Drug Abuse Patient Records regulations: The Federal rules restrict any use of the information to criminally investigate or prosecute any alcohol or drug abuse patient.[facility] HospitalIn the event this information is protected by the Federal Confidentiality of Alcohol and Drug Abuse Patient Records regulations: The Federal rules restrict any use of the information to criminally investigate or prosecute any alcohol or drug abuse patient.[facility] HospitalIn the event this information is protected by the Federal Confidentiality of Alcohol and Drug Abuse Patient Records regulations: The Federal rules restrict any use of the information to criminally investigate or prosecute any alcohol or drug abuse patient.[facility] HospitalIn the event this information is protected by the Federal Confidentiality of Alcohol and Drug Abuse Patient Records regulations: The Federal rules restrict any use of the information to criminally investigate or prosecute any alcohol or drug abuse patient.[facility] HospitalIn the event this information is protected by the Federal Confidentiality of Alcohol and Drug Abuse Patient Records regulations: The Federal rules restrict any use of the information to criminally investigate or prosecute any alcohol or drug abuse patient.[facility] HospitalIn the event this information is protected by the Federal Confidentiality of Alcohol and Drug Abuse Patient Records regulations: The Federal rules restrict any use of the information to criminally investigate or prosecute any alcohol or drug abuse patient.[facility] HospitalIn the event this information is protected by the Federal Confidentiality of Alcohol and Drug Abuse Patient Records regulations: The Federal rules restrict any use of the information to criminally investigate or prosecute any alcohol or drug abuse patient.[facility] HospitalIn the event this information is protected by the Federal Confidentiality of Alcohol and Drug Abuse Patient Records regulations: The Federal rules restrict any use of the information to criminally investigate or prosecute any alcohol or drug abuse patient.[facility] HospitalIn the event this information is protected by the Federal Confidentiality of Alcohol and Drug Abuse Patient Records regulations: The Federal rules restrict any use of the information to criminally investigate or prosecute any alcohol or drug abuse patient.[facility] HospitalIn the event this information is protected by the Federal Confidentiality of Alcohol and Drug Abuse Patient Records regulations: The Federal rules restrict any use of the information to criminally investigate or prosecute any alcohol or drug abuse patient.[facility] HospitalIn the event this information is protected by the Federal Confidentiality of Alcohol and Drug Abuse Patient Records regulations: The Federal rules restrict any use of the information to criminally investigate or prosecute any alcohol or drug abuse patient.[facility] HospitalIn the event this information is protected by the Federal Confidentiality of Alcohol and Drug Abuse Patient Records regulations: The Federal rules restrict any use of the information to criminally investigate or prosecute any alcohol or drug abuse patient.[facility] HospitalIn the event this information is protected by the Federal Confidentiality of Alcohol and Drug Abuse Patient Records regulations: The Federal rules restrict any use of the information to criminally investigate or prosecute any alcohol or drug abuse patient.[facility] HospitalIn the event this information is protected by the Federal Confidentiality of Alcohol and Drug Abuse Patient Records regulations: The Federal rules restrict any use of the information to criminally investigate or prosecute any alcohol or drug abuse patient.[facility] HospitalIn the event this information is protected by the Federal Confidentiality of Alcohol and Drug Abuse Patient Records regulations: The Federal rules restrict any use of the information to criminally investigate or prosecute any alcohol or drug abuse patient.[facility] HospitalIn the event this information is protected by the Federal Confidentiality of Alcohol and Drug Abuse Patient Records regulations: The Federal rules restrict any use of the information to criminally investigate or prosecute any alcohol or drug abuse patient.[facility] HospitalIn the event this information is protected by the Federal Confidentiality of Alcohol and Drug Abuse Patient Records regulations: The Federal rules restrict any use of the information to criminally investigate or prosecute any alcohol or drug abuse patient.[facility] HospitalIn the event this information is protected by the Federal Confidentiality of Alcohol and Drug Abuse Patient Records regulations: The Federal rules restrict any use of the information to criminally investigate or prosecute any alcohol or drug abuse patient.[facility] HospitalIn the event this information is protected by the Federal Confidentiality of Alcohol and Drug Abuse Patient Records regulations: The Federal rules restrict any use of the information to criminally investigate or prosecute any alcohol or drug abuse patient.[facility] HospitalIn the event this information is protected by the Federal Confidentiality of Alcohol and Drug Abuse Patient Records regulations: The Federal rules restrict any use of the information to criminally investigate or prosecute any alcohol or drug abuse patient.[facility] HospitalIn the event this information is protected by the Federal Confidentiality of Alcohol and Drug Abuse Patient Records regulations: The Federal rules restrict any use of the information to criminally investigate or prosecute any alcohol or drug abuse patient.[facility] HospitalIn the event this information is protected by the Federal Confidentiality of Alcohol and Drug Abuse Patient Records regulations: The Federal rules restrict any use of the information to criminally investigate or prosecute any alcohol or drug abuse patient.[facility] HospitalIn the event this information is protected by the Federal Confidentiality of Alcohol and Drug Abuse Patient Records regulations: The Federal rules restrict any use of the information to criminally investigate or prosecute any alcohol or drug abuse patient.[facility] HospitalIn the event this information is protected by the Federal Confidentiality of Alcohol and Drug Abuse Patient Records regulations: The Federal rules restrict any use of the information to criminally investigate or prosecute any alcohol or drug abuse patient.[facility] HospitalIn the event this information is protected by the Federal Confidentiality of Alcohol and Drug Abuse Patient Records regulations: The Federal rules restrict any use of the information to criminally investigate or prosecute any alcohol or drug abuse patient.[facility] HospitalIn the event this information is protected by the Federal Confidentiality of Alcohol and Drug Abuse Patient Records regulations: The Federal rules restrict any use of the information to criminally investigate or prosecute any alcohol or drug abuse patient.[facility] HospitalIn the event this information is protected by the Federal Confidentiality of Alcohol and Drug Abuse Patient Records regulations: The Federal rules restrict any use of the information to criminally investigate or prosecute any alcohol or drug abuse patient.[facility] HospitalIn the event this information is protected by the Federal Confidentiality of Alcohol and Drug Abuse Patient Records regulations: The Federal rules restrict any use of the information to criminally investigate or prosecute any alcohol or drug abuse patient.[facility] HospitalIn the event this information is protected by the Federal Confidentiality of Alcohol and Drug Abuse Patient Records regulations: The Federal rules restrict any use of the information to criminally investigate or prosecute any alcohol or drug abuse patient.[facility] Reason for Visit (unrecogniz ed section [...] Referred By Rodolfo witt Referred To Contact Neurology Diagnoses Facial paresthesia Intermittent tremor Procedures CONSULT TO NEUROLOGY OFFICE/OUTPATIENT NEW HIGH MDM 60-74 MINUTES Oleksandr, WENDY Warren.MEDIA RELATIONS DIRECTOR [address] [place] [address] Referral ID Status Reason Start Date Expiration Date V isits Requested Visits Authorized [id number] Closed PCP Requested Referral 01/18/2022 01/18/2023 1 [...] MATERIAL Zayra Becker MD [address] [place] [address] [place] [address] Referral ID Status Reason Start Date Expiration Date V isits Requested Visits Authorized [id number] Closed Auto-Generate d Referral 03/12/2022 05/11/2022 1 1 Specialty Diagnoses / Procedures Referred By Contac t Referred To Contact MR IMAGING Diagnoses Acute pain of right shoulder Traumatic tear of right rotator cuff, unspecified tear extent, initial encounter Procedures MRI SHOULDER WO IVCON RT MRI ANY JT UPPER EXTREMITY W/O CONTRAST MATRL Mitchel Staton MD [address] [place] [address] [place] [address] Referral ID Status Reason Start Date Expiration Date V isits Requested Visits Authorized [id number] Closed Auto-Generate d Referral 04/15/2022 06/14/2022 1 1 Reason Comments Insurance Authorization Reason Comments Patient Question BV Reason Comments Vaginal Discharge Reason Comments Vaginal Problem Reason Comments Consult Hemorrhoid consultat ion. Specialty Diagnoses / Procedures Referred By Contac t Referred To Contact Gastroenterology Diagnoses Hemorrhoids, unspecified hemorrhoid type Procedures CONSULT TO GASTROENTEROLOGY OFFICE/OUTPATIENT [facility] 60 MINUTES Adele Costa, TOOLS PROGRAMMER.MEDIA RELATIONS DIRECTOR [address] [place] [address] Referral ID Status Reason Start Date Expiration Date V isits Requested Visits Authorized [id number] Closed PCP Requested Referral 06/16/2023 06/15/2024 1 1 Reason Comments hydradinitis flare up Reason Comments Breast Problem bloody discharge fro m right nipple Reason Comments Radiology US Specialty Diagnoses / Procedures Referred By Contac t Referred To Contact BR IMAGING Diagnoses Nipple discharge Procedures US BREAST LTD RIGHT US BREAST UNI REAL TIME WITH IMAGE LIMITED Isabel Morales APRN.CNM [address] [place] [address] Br Imaging [address] [place] [address] Referral ID Status Reason Start Date Expiration Date V isits Requested Visits Authorized [id number] Closed Auto-Generate d Referral 09/07/2023 10/06/2024 1 1 Reason Comments Sore Throat Nausea, diarrhea, delaney dyaches x1 day Reason Comments Consult Nipple discharge Specialty Diagnoses / Procedures Referred By Contac t Referred To Contact General Surgery Diagnoses Nipple discharge Procedures CONSULT TO GENERAL SURGERY OFFICE/OUTPATIENT [facility] 60 MINUTES Pauline Puentes MD [address] [place] [address] Referral ID Status Reason Start Date Expiration Date V isits Requested Visits Authorized [id number] Closed PCP Requested Referral 09/14/2023 09/13/2024 1 1 Reason Onset Date Comments Refill Request 10/25/2023 Reason Comments Rash itching x 3 weeks Reason Onset Date Comments Refill Request 12/06/2023 Reason Onset Date Comments Insertion Of IUD 01/13/2024 Specialty Diagnoses / Procedures Referred By [facility] Referred [facility] Diagnoses Dysmenorrhea Encounter for insertion of intrauterine contraceptive device Encounter for removal of intrauterine contraceptive device Procedures INSERT INTRAUTERINE DEVICE LEVONORGESTREL IU 52MG 5 YR INSERT INTRAUTERINE DEVICE REMOVE INTRAUTERINE DEVICE Adele Costa, TOOLS PROGRAMMER.MEDIA RELATIONS DIRECTOR [address] 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 Reason Comments Urinary Problem [...] ia Specialty Diagnoses / Procedures Referred By Rodolfo t Referred To Contact Cardiology Diagnoses Pre-syncope Paroxysmal tachycardia (HCC) Bigeminy Procedures CONSULT TO CARDIOLOGY OFFICE/OUTPATIENT NEW HIGH MDM 60 MINUTES Oleksandr, WENDY Warren.VELVET [address] [place] [address] Phone: tel: fax: Referral ID Status Reason Start Date Expiration Date V isits Requested Visits Authorized [id number] Closed PCP Requested Referral 10/05/2024 10/05/2025 1 1 Reason Onset Date Comments Refill Request 11/19/2024 Reason Comments Patient Update Reason Onset Date Comments Refill Request 12/26/2024 Care Teams (unrecognized sec tion and content) Orthopaedic General Relationship Specialty Start Date End Date Koki Worthington MD [address] [place] [address] PCP - General Internal Medicine 09/09/17 Andrez Ballesteros [address] [place] [address] Specialty Service Secretary Cardiology 07/06/[address] [place] [address] Specialty Service Secretary Cardiology 07/09/20 Orthopaedic General Relationship Specialty Start Date End Date Koki Worthington MD [address] [facility] [place] [address] PCP - General Internal Medicine 09/09/17 Andrez Ballesteros [address] [place] [address] Specialty Service Secretary Cardiology 07/06/[address] [place] [address] Specialty Service Secretary Cardiology 07/09/20 Orthopaedic General Relationship Specialty Start Date End Date Koki Worthington MD [address] [facility] [place] [address] PCP - General Internal Medicine 09/09/[address] [place] [address] Specialty Service Secretary Cardiology 07/06/[address] [place] [address] Specialty Service Secretary Cardiology 07/09/20 Orthopaedic General Relationship Specialty Start Date End Date Koki Worthington MD [address] [facility] [place] [address] PCP - General Internal Medicine 09/09/17 Andrez Ballesteros [address] [place] [address] Specialty Service Secretary Cardiology 07/06/[address] [place] [address] Specialty Service Secretary Cardiology 07/09/20 Orthopaedic General Relationship Specialty Start Date End Date Koki Worthington MD [address] [facility] [place] [address] PCP - General Internal Medicine 09/09/17 Andrez Ballesteros [address] [place] [address] Specialty Service Secretary Cardiology 07/06/[address] [place] [address] Specialty Service Secretary Cardiology 07/09/20 Orthopaedic General Relationship Specialty Start Date End Date Koki Worthington MD [address] [facility] [place] [address] PCP - General Internal Medicine 09/09/17 Andrez Ballesteros [address] [place] [address] Specialty Service Secretary Cardiology 07/06/[address] [place] [address] Specialty Service Secretary Cardiology 07/09/20 Orthopaedic General Relationship Specialty Start Date End Date Koki Worthington MD [address] [facility] [place] [address] PCP - General Internal Medicine 09/09/17 Andrez Ballesteros [address] [place] [address] Specialty Service Secretary Cardiology 07/06/[address] [place] [address] Specialty Service Secretary Cardiology 07/09/20 Orthopaedic General Relationship Specialty Start Date End Date Koki Worthington MD [address] [facility] [place] [address] PCP - General Internal Medicine 09/09/[address] [place] [address] Specialty Service Secretary Cardiology 07/06/[address] [place] [address] Specialty Service Secretary Cardiology 07/09/20 Orthopaedic General Relationship Specialty Start Date End Date Koki Worthington MD [address] [facility] [place] [address] PCP - General Internal Medicine 09/09/[address] [place] [address] Specialty Service Secretary Cardiology 07/06/[address] [place] [address] Specialty Service Secretary Cardiology 07/09/20 Orthopaedic General Relationship Specialty Start Date End Date Koki Worthington MD [address] [facility] [place] [address] PCP - General Internal Medicine 09/09/[address] [place] [address] Specialty Service Secretary Cardiology 07/06/[address] [place] [address] Specialty Service Secretary Cardiology 07/09/20 Orthopaedic General Relationship Specialty Start Date End Date Koki Worthington MD [address] [facility] [place] [address] PCP - General Internal Medicine 09/09/17 Andrez Ballesteros [address] [place] [address] Specialty Service Secretary Cardiology 07/06/[address] [place] [address] Specialty Service Secretary Cardiology 07/09/20 Orthopaedic General Relationship Specialty Start Date End Date Koki Worthington MD [address] [facility] [place] [address] PCP - General Internal Medicine 09/09/17 Andrez Ballesteros [address] [place] [address] Specialty Service Secretary Cardiology 07/06/[address] [place] [address] Specialty Service Secretary Cardiology 07/09/20 Orthopaedic General Relationship Specialty Start Date End Date Koki Worthington MD [address] [facility] [place] [address] PCP - General Internal Medicine 09/09/17 Andrez Ballesteros [address] [place] [address] Specialty Service Secretary Cardiology 07/06/[address] [place] [address] Specialty Service Secretary Cardiology 07/09/20 Orthopaedic General Relationship Specialty Start Date End Date Koki Worthington MD [address] [facility] [place] [address] PCP - General Internal Medicine 09/09/17 Andrez Ballesteros [address] [place] [address] Specialty Service Secretary Cardiology 07/06/[address] [place] [address] Specialty Service Secretary Cardiology 07/09/20 Orthopaedic General Relationship Specialty Start Date End Date Koki Worthington MD [address] [facility] [place] [address] PCP - General Internal Medicine 09/09/[address] [place] [address] Specialty Service Secretary Cardiology 07/06/[address] [place] [address] Specialty Service Secretary Cardiology 07/09/20 Orthopaedic General Relationship Specialty Start Date End Date Koki Worthington MD [address] [facility] [place] [address] PCP - General Internal Medicine 09/09/[address] [place] [address] Specialty Service Secretary Cardiology 07/06/[address] [place] [address] Specialty Service Secretary Cardiology 07/09/20 Orthopaedic General Relationship Specialty Start Date End Date Koki Worthington MD [address] [facility] [place] [address] PCP - General Internal Medicine 09/09/[address] [place] [address] Specialty Service Secretary Cardiology 07/06/[address] [place] [address] Specialty Service Secretary Cardiology 07/09/20 Team Status: Active Member Role Status Dates Dr. Koki Worthington MD Family Provider Active Dr. Koki Worthington MD Primary Care Provider Active Team Status: Inactive Member Role Status Dates Dr. Koki Worthington MD Primary Care Provider, Referring Provider Active Adore Miller PHOTOGRAPHIC EQUIPMENT MECHANIC, PHOTOGRAPHIC EQUIPMENT MECHANIC-C Attending Provider Active Team Status: Inactive Member Role Status Dates Dr. Koki Worthington MD Primary Care Provider Active Dr. Norm Hernandez MD Attending Provider Active Orthopaedic General Relationship Specialty Start Date End Date Koki Worthington MD [address] [facility] [place] [address] PCP - General Internal Medicine 09/09/17 Andrez Ballesteros [address] [place] [address] Specialty Service Secretary Cardiology 07/06/20 Adore Miller [address] [place] [address] Specialty Service Secretary Cardiology 07/09/20 Orthopaedic General Relationship Specialty Start Date End Date Koki Worthington MD [address] [facility] [place] [address] PCP - General Internal Medicine 09/09/17 Andrez Ballesteros [address] [place] [address] Specialty Service Secretary Cardiology 07/06/20 Adore Miller [facility] [address] [place] [address] Specialty Service Secretary Cardiology 07/09/20 Orthopaedic General Relationship Specialty Start Date End Date Koki Worthington MD [address] [facility] [place] [address] PCP - General Internal Medicine 09/09/17 Andrez Ballesteros [address] [place] [address] Specialty Service Secretary Cardiology 07/06/20 [address]Ad[address] [place] [address] Specialty Service Secretary Cardiology 07/09/20 Orthopaedic General Relationship Specialty Start Date End Date Koki Worthington MD [address] [place] [address] PCP - General Internal Medicine 09/09/17 Andrez Ballesteros [address] [place] [address] Specialty Service Secretary Cardiology 07/06/20 Paul Adore [address] [place] [address] Specialty Service Secretary Cardiology 07/09/20 Team Status: Inactive Member Role [...] Cota Attending Provider, Referring Provi annemarie Active Orthopaedic General Relationship Specialty Start Date End Date Koki Worthington MD [address] [place] [address] PCP - General Internal Medicine 09/09/17 Andrez Ballesteros [address] [place] [address] Specialty Service Secretary Cardiology 07/06/20 Adore Miller [address] [place] [address] Specialty Service Secretary Cardiology 07/09/20 Orthopaedic General Relationship Specialty Start Date End Date Koki Worthington MD [address] [place] [address] PCP - General Internal Medicine 09/09/17 Andrez Ballesteros [address] [place] [address] Specialty Service Secretary Cardiology 07/06/20 Adore Miller [address] [place] [address] Specialty Service Secretary Cardiology 07/09/20 Orthopaedic General Relationship Specialty Start Date End Date Koki Worthington MD [address] [place] [address] PCP - General Internal Medicine 09/09/17 Andrez Ballesteros [address] [place] [address] Specialty Service Secretary Cardiology 07/06/20 Adore Miller [address] [place] [address] Specialty Service Secretary Cardiology 07/09/20 Team Status: Active Member Role Status Dates Dr. Koki Worthington MD Primary Care Provider Active Adore Miller PHOTOGRAPHIC EQUIPMENT MECHANIC, PHOTOGRAPHIC EQUIPMENT MECHANIC-C Attending Provider Active Team Status: Inactive Member Role Status Dates Dr. Koki Worthington MD Primary Care Provider, Referring Provider Active Eduardo DE LA GARZA PA Attending Provider Active Team Status: Inactive Member Role Status Dates Dr. Koki Worthington MD Primary Care Provider Active Adore Miller PHOTOGRAPHIC EQUIPMENT MECHANIC, PHOTOGRAPHIC EQUIPMENT MECHANIC-C Attending Provider, Referring Pro vider Active Team Status: Active Member Role Status Dates Dr. Koki Worthington MD Primary Care Provider Active Eduardo DE LA GARZA PA Attending Provider, Referring Prov ider Active Orthopaedic General Relationship Specialty Start Date End Date Koki Worthington MD [address] [facility] [place] [address] PCP - General Internal Medicine 09/09/17 Andrez Ballesteros [address] [place] [address] Specialty Service Secretary Cardiology 07/06/20 Adore Miller [address] [place] [address] Specialty Service Secretary Cardiology 07/09/20 Orthopaedic General Relationship Specialty Start Date End Date Koki Worthington MD [address] [facility] [place] [address] PCP - General Internal Medicine 09/09/17 Andrez Ballesteros [address] [place] [address] Specialty Service Secretary Cardiology 07/06/20 Adore Miller [address] [place] [address] Specialty Service Secretary Cardiology 07/09/20 Orthopaedic General Relationship Specialty Start Date End Date Koki Worthington MD [address] [facility] [place] [address] PCP - General Internal Medicine 09/09/17 Andrez Ballesteros [address] [place] [address] Specialty Service Secretary Cardiology 07/06/20 Adore Miller [address] [place] [address] Specialty Service Secretary Cardiology 07/09/20 Orthopaedic General Relationship Specialty Start Date End Date Koki Worthington MD [address] [place] [address] PCP - General Internal Medicine 09/09/17 Andrez Ballesteros MD [address] [place] [address] Specialty Service Secretary Cardiology 07/06/20 Adore Miller [address] [place] [address], [place] [address] Specialty Service Secretary Cardiology 07/09/20 Team Status: Active Member Role Status Dates Dr. Koki Worthington MD Primary Care Provider Active Adore Miller PHOTOGRAPHIC EQUIPMENT MECHANIC, PHOTOGRAPHIC EQUIPMENT MECHANIC-C Attending Provider, Referring Pro vider Active Team Status: Inactive Member Role Status Dates Dr. Koki Worthington MD Primary Care Provider Active Eduardo DE LA GARZA, PA Attending Provider, Referring Prov ider Active Orthopaedic General Relationship Specialty Start Date End Date Koki Worthington MD [address] [place] [address] PCP - General Internal Medicine 09/09/17 Andrez Ballesteros MD [address] [place] [address] Specialty Service Secretary Cardiology 07/06/20 Adore Miller [address] [place] [address] Specialty Service Secretary Cardiology 07/09/20 Orthopaedic General Relationship Specialty Start Date End Date Koki Worthington MD [address] [place] [address] PCP - General Internal Medicine 09/09/17 Andrez Ballesteros MD [address] [place] [address] Specialty Service Secretary Cardiology 07/06/20 Adore Miller [address] [place] [address] Specialty Service Secretary Cardiology 07/09/20 Orthopaedic General Relationship Specialty Start Date End Date Koki Worthington MD [address] [facility] [place] [address] PCP - General Internal Medicine 09/09/17 Andrez Ballesteros MD [address] [place] [address] Specialty Service Secretary Cardiology 07/06/20 Adore Miller TOOLS PROGRAMMER.MEDIA RELATIONS DIRECTOR [address] [place] [address] Specialty Service Secretary Cardiology 07/09/20 Team Status: Inactive Member Role Status Dates Dr. Koki Worthington MD Primary Care Provider, Referring Provider Active Eduardo DE LA GARZA, PA Attending Provider Active Orthopaedic General Relationship Specialty Start Date End Date Koki Worthington MD [address] [facility] [place] [address] PCP - General Internal Medicine 09/09/17 Andrez Ballesteros MD [address] [place] [address] Specialty Service Secretary Cardiology 07/06/20 Adore Miller TOOLS PROGRAMMER.MEDIA RELATIONS DIRECTOR [address] [place] [address] Specialty Service Secretary Cardiology 07/09/20 Orthopaedic General Relationship Specialty Start Date End Date Koki Worthington MD [address] [facility] [place] [address] PCP - General Internal Medicine 09/09/17 Andrez Ballesteros MD [address] [place] [address] Specialty Service Secretary Cardiology 07/06/20 Adore Miller, TOOLS PROGRAMMER.MEDIA RELATIONS DIRECTOR [address] [address] Specialty Service Secretary Cardiology 07/09/20 Orthopaedic General Relationship Specialty Start Date End Date Koki Worthington MD [address] [facility] [place] [address] PCP - General Internal Medicine 09/09/17 Andrez Ballesteros MD [address] [address] Specialty Service Secretary Cardiology 07/06/20 Adore Miller, TOOLS PROGRAMMER.MEDIA RELATIONS DIRECTOR [address] [address] Specialty Service Secretary Cardiology 07/09/20 Orthopaedic General Relationship Specialty Start Date End Date Koki Worthington MD [address] [facility] [place] [address] PCP - General Internal Medicine 09/09/17 Andrez Ballesteros MD [address] [place] [address] Specialty Service Secretary Cardiology 07/06/20 Adore Miller TOOLS PROGRAMMER.MEDIA RELATIONS DIRECTOR [address] [place] [address] Specialty Service Secretary Cardiology 07/09/20 Orthopaedic General Relationship Specialty Start Date End Date Koki Worthington MD [address] [place] [address] PCP - General Internal Medicine 09/09/17 Andrez Ballesteros MD [address] [place] [address] Specialty Service Secretary Cardiology 07/06/20 Adore Miller TOOLS PROGRAMMER.MEDIA RELATIONS DIRECTOR [address] [place] [address] Specialty Service Secretary Cardiology 07/09/20 Orthopaedic General Relationship Specialty Start Date End Date Koki Worthington MD [address] [place] [address] PCP - General Internal Medicine 09/09/17 Andrez Ballesteros MD [address] [place] [address] Specialty Service Secretary Cardiology 07/06/20 Adore Miller, TOOLS PROGRAMMER.MEDIA RELATIONS DIRECTOR [address] [place] [address] Specialty Service Secretary Cardiology 07/09/20 Orthopaedic General Relationship Specialty Start Date End Date Koki Worthington MD [address] [place] [address] PCP - General Internal Medicine 09/09/17 Andrez Ballesteros MD [address] [place] [address] Specialty Service Secretary Cardiology 07/06/20 Adore Miller TOOLS PROGRAMMER.MEDIA RELATIONS DIRECTOR [address] [place] [address] Specialty Service Secretary Cardiology 07/09/20 Orthopaedic General Relationship Specialty Start Date End Date Koki Worthington MD [address] [facility] [place] [address] PCP - General Internal Medicine 09/09/17 Andrez Ballesteros MD [address] [place] [address] Specialty Service Secretary Cardiology 07/06/20 Adore Miller TOOLS PROGRAMMER.MEDIA RELATIONS DIRECTOR [address] [place] [address] Specialty Service Secretary Cardiology 07/09/20 Orthopaedic General Relationship Specialty Start Date End Date Koki Worthington MD [address] [facility] [place] [address] PCP - General Internal Medicine 09/09/17 Andrez Ballesteros MD [address] [place] [address] Specialty Service Secretary Cardiology 07/06/20 Adore Miller TOOLS PROGRAMMER.MEDIA RELATIONS DIRECTOR [address] [place] [address] Specialty Service Secretary Cardiology 07/09/20 Orthopaedic General Relationship Specialty Start Date End Date Koki Worthington MD [address] [facility] [place] [address] PCP - General Internal Medicine 09/09/17 Andrez Ballesteros MD [address] [place] [address] Specialty Service Secretary Cardiology 07/06/20 Adore Miller TOOLS PROGRAMMER.MEDIA RELATIONS DIRECTOR [address] [place] [address] Specialty Service Secretary Cardiology 07/09/20 Orthopaedic General Relationship Specialty Start Date End Date Koki Worthington MD [address] [facility] [place] [address] PCP - General Internal Medicine 09/09/17 Andrez Ballesteros MD [address] [place] [address] Specialty Service Secretary Cardiology 07/06/20 Adore Miller TOOLS PROGRAMMER.MEDIA RELATIONS DIRECTOR [address] [place] [address] Specialty Service Secretary Cardiology 07/09/20 Orthopaedic General Relationship Specialty Start Date End Date Koki Worthington MD [address] [facility] [place] [address] PCP - General Internal Medicine 09/09/17 Andrez Ballesteros MD [address] [place] [address] Specialty Service Secretary Cardiology 07/06/20 Adore Miller, TOOLS PROGRAMMER.MEDIA RELATIONS DIRECTOR [address] [place] [address] Specialty Service Secretary Cardiology 07/09/20 Orthopaedic General Relationship Specialty Start Date End Date Koki Worthington MD [address] [facility] [place] [address] PCP - General Internal Medicine 09/09/17 Andrez Ballesteros MD [address] [place] [address] Specialty Service Secretary Cardiology 07/06/20 Adore Miller, TOOLS PROGRAMMER.MEDIA RELATIONS DIRECTOR [address] [place] [address] Specialty Service Secretary Cardiology 07/09/20 Orthopaedic General Relationship Specialty Start Date End Date Koki Worthington MD [address] [facility] [place] [address] PCP - General Internal Medicine 09/09/17 Andrez Ballesteros MD [address] [place] [address] Specialty Service Secretary Cardiology 07/06/20 Adore Miller, TOOLS PROGRAMMER.MEDIA RELATIONS DIRECTOR [address] [place] [address] Specialty Service Secretary Cardiology 07/09/20 Orthopaedic General Relationship Specialty Start Date End Date Koki Worthington MD [address] [facility] [place] [address] PCP - General Internal Medicine 09/09/17 Andrez Ballesteros MD [address] [place] [address] Specialty Service Secretary Cardiology 07/06/20 Adore Miller, TOOLS PROGRAMMER.MEDIA RELATIONS DIRECTOR [address] [place] [address] Specialty Service Secretary Cardiology 07/09/20 Orthopaedic General Relationship Specialty Start Date End Date Koki Worthington MD [address] [facility] [place] [address] PCP - General Internal Medicine 09/09/17 Andrez Ballesteros MD [address] [place] [address] Specialty Service Secretary Cardiology 07/06/20 Adore Miller, TOOLS PROGRAMMER.MEDIA RELATIONS DIRECTOR [address] [place] [address] Specialty Service Secretary Cardiology 07/09/20 Orthopaedic General Relationship Specialty Start Date End Date Koki Worthington MD [address] [facility] [place] [address] PCP - General Internal Medicine 09/09/17 Andrez Ballesteros MD [address] [place] [address] Specialty Service Secretary Cardiology 07/06/20 Adore Miller, TOOLS PROGRAMMER.MEDIA RELATIONS DIRECTOR [address] [place] [address] Specialty Service Secretary Cardiology 07/09/20 Orthopaedic General Relationship Specialty Start Date End Date Koki Worthington MD [address] [facility] [place] [address] PCP - General Internal Medicine 09/09/17 Andrez Ballesteros MD [address] [place] [address] Specialty Service Secretary Cardiology 07/06/20 Adore Miller TOOLS PROGRAMMER.MEDIA RELATIONS DIRECTOR [address] [place] [address] Specialty Service Secretary Cardiology 07/09/20 Orthopaedic General Relationship Specialty Start Date End Date Koki Worthington MD [address] [facility] [place] [address] PCP - General Internal Medicine 09/09/17 Andrez Ballesteros MD [address] [place] [address] Specialty Service Secretary Cardiology 07/06/20 Adore Miller TOOLS PROGRAMMER.MEDIA RELATIONS DIRECTOR [address] [place] [address] Specialty Service Secretary Cardiology 07/09/20 Orthopaedic General Relationship Specialty Start Date End Date Koki Worthington MD [address] [facility] [place] [address] PCP - General Internal Medicine 09/09/17 Andrez Ballesteros MD [address] [place] [address] Specialty Service Secretary Cardiology 07/06/20 Adore Miller TOOLS PROGRAMMER.MEDIA RELATIONS DIRECTOR [address] [place] [address] Specialty Service Secretary Cardiology 07/09/20 Orthopaedic General Relationship Specialty Start Date End Date Koki Worthington MD [address] [place] [address] PCP - General Internal Medicine 01/13/24 Heber Holbrook MD [address] [facility] [place] [address] Referring Physician Otolaryngology 01/13/24 Orthopaedic General Relationship Specialty Start Date End Date Koki Worthington MD [address] [place] [address] PCP - General Internal Medicine 09/09/17 Andrez Ballesteros MD [address] [place] [address] Specialty Service Secretary Cardiology 07/06/20 Adore Miller TOOLS PROGRAMMER.MEDIA RELATIONS DIRECTOR [address] [place] [address] Specialty Service Secretary Cardiology 07/09/20 Orthopaedic General Relationship Specialty Start Date End Date Koki Worthington MD [address] [place] [address] PCP - General Internal Medicine 09/09/17 Andrez Ballesteros MD [address] [place] [address] Specialty Service Secretary Cardiology 07/06/20 Adore Miller TOOLS PROGRAMMER.MEDIA RELATIONS DIRECTOR [address] [place] [address] Specialty Service Secretary Cardiology 07/09/20 Orthopaedic General Relationship Specialty Start Date End Date Koki Worthington MD [address] [place] [address] PCP - General Internal Medicine 01/13/24 Heber Holbrook MD [address] [facility] [place] [address] Referring Physician Otolaryngology 01/13/24 Orthopaedic General Relationship Specialty Start Date End Date Koki Wortihngton MD [address] [place] [address] PCP - General Internal Medicine 09/09/17 Andrez Ballesteros MD [address] [address] Specialty Service Secretary Cardiology 07/06/20 Adore Miller APRN.MEDIA RELATIONS DIRECTOR [address] [address] Specialty Service Secretary Cardiology 07/09/20 Rossy Duenas PA-C [address] [place] [address] Lead Network Engineer Family Medicine 04/15/24 Briana Leggett APRN.MEDIA RELATIONS DIRECTOR [address] [place] [address] Lead Network Engineer Internal Medicine 04/15/24 Surya Bishop PA-C [address] [place] [address] Lead Network Engineer Family Medicine 04/15/24 Orthopaedic General Relationship Specialty Start Date End Date Koki Worthington MD [address] [place] [address] PCP - General Internal Medicine 09/09/17 Andrez Ballesteros MD [address] [place] [address] Specialty Service Secretary Cardiology 07/06/20 Adore Miller, TOOLS PROGRAMMER.MEDIA RELATIONS DIRECTOR [address] [place] [address] Specialty Service Secretary Cardiology 07/09/20 Rossy Duenas PA-C [address] [place] [address] Formerly [facility] Family [facility] 04/15/24 Briana Leggett APRN.MEDIA RELATIONS DIRECTOR [address] [facility] [place] [address] Formerly [facility] Internal Medicine 04/15/24 Surya Bishop PA-C [address] [facility] [place] [address] [facility] 04/15/24 Orthopaedic General Relationship Specialty Start Date End Date Koki Worthington MD [address] [facility] [place] [address] PCP - General Internal Medicine 09/09/17 Andrez Ballesteros MD [address] [place] [address] Specialty Service Secretary Cardiology 07/06/20 Adore Miller, TOOLS PROGRAMMER.MEDIA RELATIONS DIRECTOR [address] [place] [address] Specialty Service Secretary Cardiology 07/09/20 Rossy Duenas PA-C [address] [place] [address] Lead Network Engineer Family Medicine 04/15/24 Briana Leggett APRN.MEDIA RELATIONS DIRECTOR [address] [place] [address] Lead Network Engineer Internal Medicine 04/15/24 Surya Bishop PA-C [address] [place] [address] [facility] 04/15/24 Orthopaedic General Relationship Specialty Start Date End Date Koki Worthington MD [address] [place] [address] PCP - General Internal Medicine 09/09/17 Andrez Ballesteros MD [address] [address] Specialty Service Secretary Cardiology 07/06/20 Adore Miller APRN.MEDIA RELATIONS DIRECTOR [address] [facility] [address] [address] Specialty Service Secretary Cardiology 07/09/20 Rossy Duenas PA-C [address] [place] [address] Formerly [facility] Family Medicine 04/15/24 Briana Leggett APRN.MEDIA RELATIONS DIRECTOR [address] [place] [address] Lead Network Engineer Internal Medicine 04/15/24 Surya Bishop PA-C [address] [place] [address] Formerly [facility] Family [facility] 04/15/24 Orthopaedic General Relationship Specialty Start Date End Date Koki Worthington MD [address] [place] [address] PCP - General Internal Medicine 09/09/17 Andrez Blalesteros MD [address] [place] [address], [place] [address] Specialty Service Secretary Cardiology 07/06/20 Adore Miller TOOLS PROGRAMMER.MEDIA RELATIONS DIRECTOR [address] [place] [address] Specialty Service Secretary Cardiology 07/09/20 Rossy Duenas PA-C [address] [place] [address] Formerly [facility] Family Medicine 04/15/24 Briana Leggett APRN.MEDIA RELATIONS DIRECTOR [address] [place] [address] [facility]ly [facility] Internal Medicine 04/15/24 Surya Bishop PA-C [address] [place] [address] [facility] 04/15/24 Orthopaedic General Relationship Specialty Start Date End Date Koki Worthington MD [address] [place] [address] PCP - General Internal Medicine 09/09/17 Andrez Ballestreos MD [address] [address] Specialty Service Secretary Cardiology 07/06/20 Adore Miller TOOLS PROGRAMMER.MEDIA RELATIONS DIRECTOR [address] [address] Specialty Service Secretary Cardiology 07/09/20 Rossy Duenas PA-C [address] [place] [address] Lead Network Engineer Family Medicine 04/15/24 Briana Leggett APRN.MEDIA RELATIONS DIRECTOR [address] [place] [address] Lead Network Engineer Internal Medicine 04/15/24 Surya Bishop PA-C [address] [place] [address] Lead Network Engineer Family [facility] 04/15/24 Orthopaedic General Relationship Specialty Start Date End Date Koki Worthington MD [address] [place], [place] [address] PCP - General Internal Medicine 05/17/24 Brian Argueta MD [address] [place] [address], [facility] [address] [place], [place] [id number] Attending Provider Medical Clinical Genetics 12/28/19 Estela Griffiths [facility] [place], [place] [id number] Genetic Counselor Genetics 05/25/24 Orthopaedic General Relationship Specialty Start Date End Date Koki Worthington MD [address] [place], [place] [address] PCP - General Internal Medicine 09/09/17 Andrez Ballesteros MD [address] [address] Specialty Service Secretary Cardiology 07/06/20 Adore Miller, TOOLS PROGRAMMER.MEDIA RELATIONS DIRECTOR [address] [address] Specialty Service Secretary Cardiology 07/09/20 Rossy Duenas PA-C [address] [place] [address] [facility] 04/15/24 Briana Leggett APRN.MEDIA RELATIONS DIRECTOR [address] [place] [address] Formerly [facility] Internal Medicine 04/15/24 Surya Bishop PA-C [address] [place] [address] [facility] 04/15/24 Orthopaedic General Relationship Specialty Start Date End Date Koki Worthington MD [address] [place] [address] PCP - General Internal Medicine 09/09/17 Andrez Ballesteros MD [address] [address] Specialty Service Secretary Cardiology 07/06/20 Adore Miller, TOOLS PROGRAMMER.MEDIA RELATIONS DIRECTOR [address] [address] Specialty Service Secretary Cardiology 07/09/20 Rossy Duenas PA-C [address] [place] [address] [facility] 04/15/24 Briana Leggett TOOLS PROGRAMMER.MEDIA RELATIONS DIRECTOR [address] [place] [address] Lead Network Engineer Internal Medicine 04/15/24 Surya Bishop PA-C [address] [place] [address] Lead Network Engineer Family Medicine 04/15/24 Orthopaedic General Relationship Specialty Start Date End Date Koki Worthington MD [address] [place] [address] PCP - General Internal Medicine 09/09/17 Andrez Ballesteros MD [address] [address] Specialty Service Secretary Cardiology 07/06/20 Adore Miller APRN.MEDIA RELATIONS DIRECTOR [address] [address] Specialty Service Secretary Cardiology 07/09/20 Rossy Duenas PA-C [address] [place] [address] Lead Network Engineer Family Medicine 04/15/24 Briana Leggett APRN.MEDIA RELATIONS DIRECTOR [address] [place] [address] Lead Network Engineer Internal Medicine 04/15/24 Surya Bishop PA-C [address] [place] [address] Lead Network Engineer Family Medicine 04/15/24 Orthopaedic General Relationship Specialty Start Date End Date Koki Worthington MD [address] [place] [address] PCP - General Internal Medicine 09/09/17 Andrez Ballesteros MD [address] [place] [address] Specialty Service Secretary Cardiology 07/06/20 Adore Miller, TOOLS PROGRAMMER.MEDIA RELATIONS DIRECTOR [address] [place] [address] Specialty Service Secretary Cardiology 07/09/20 Briana Leggett, TOOLS PROGRAMMER.MEDIA RELATIONS DIRECTOR [address] [facility] [place] [address] Lead Network Engineer Internal Medicine 04/15/24 Orthopaedic General Relationship Specialty Start Date End Date Koki Worthington MD [address] [facility] [place] [address] PCP - General Internal Medicine 09/09/17 Andrez Ballesteros MD [address] [place] [address] Specialty Service Secretary Cardiology 07/06/20 Adore Miller, TOOLS PROGRAMMER.MEDIA RELATIONS DIRECTOR [address] [place] [address] Specialty Service Secretary Cardiology 07/09/20 Briana Leggett, TOOLS PROGRAMMER.MEDIA RELATIONS DIRECTOR [address] [facility] [place] [address] Lead Network Engineer Internal Medicine 04/15/24 Orthopaedic General Relationship Specialty Start Date End Date Koki Worthington MD [address] [facility] [place] [address] PCP - General Internal Medicine 09/09/17 Andrez Ballesteros MD [address] [place] [address] Specialty Service Secretary Cardiology 07/06/20 Adore Miller APRN.MEDIA RELATIONS DIRECTOR [address] [place] [address] Specialty Service Secretary Cardiology 07/09/20 Briana Leggett APRN.MEDIA RELATIONS DIRECTOR [address] [facility] [place] [address] Lead Network Engineer Internal Medicine 04/15/24 Orthopaedic General Relationship Specialty Start Date End Date Koki Worthington MD [address] [place] [address] PCP - General Internal Medicine 09/09/17 Andrez Ballesteros MD [address] [place] [address] Specialty Service Secretary Cardiology 07/06/20 Adore Miller APRN.MEDIA RELATIONS DIRECTOR [address] [place] [address] Specialty Service Secretary Cardiology 07/09/20 Rossy Duenas PA-C [address] [place] [address] Lead Network Engineer Family Medicine 04/15/24 07/29/24 Briana Leggett APRN.MEDIA RELATIONS DIRECTOR [address] [facility] [place] [address] Lead Network Engineer Internal Medicine 04/15/24 Surya Bishop PA-C [address] [place] [address] Formerly [facility] Family [facility] 04/15/24 07/29/24 Orthopaedic General Relationship Specialty Start Date End Date Koki Worthington MD [address] [facility] [place] [address] PCP - General Internal Medicine 09/09/17 Andrez Ballesteros MD [address] [place] [address] Specialty Service Secretary Cardiology 07/06/20 Adore Miller TOOLS PROGRAMMER.MEDIA RELATIONS DIRECTOR [address] [place] [address] Specialty Service Secretary Cardiology 07/09/20 Briana Leggett APRN.MEDIA RELATIONS DIRECTOR [address] [facility] [place] [address] Formerly [facility] Internal Medicine 04/15/24 Orthopaedic General Relationship Specialty Start Date End Date Koki Worthington MD [address] [facility] [place] [address] PCP - General Internal Medicine 09/09/17 Andrez Ballesteros MD [address] [place] [address] Specialty Service Secretary Cardiology 07/06/20 Adore Miller TOOLS PROGRAMMER.MEDIA RELATIONS DIRECTOR [address] [place] [address] Specialty Service Secretary Cardiology 07/09/20 Briana Leggett APRN.MEDIA RELATIONS DIRECTOR [address] [facility] [place] [address] Formerly [facility] Internal Medicine 04/15/24 Team Status: Inactive Member Role Status Dates Dr. Koki Worthington MD Primary Care Provider Active Start: October 19, 2024 End: October 19, 2024 Dr. Koki Worthington MD Referring Provider Active Start: October 19, 2024 End: October 19, 2024 aKiley Fairbanks PA, PA Attending Provider Active Start: October 19, 2024 End: October 19, 2024 Orthopaedic General Relationship Specialty Start Date End Date Koki Worthington MD [address] [facility] [place] [address] PCP - General Internal Medicine 09/09/17 Andrez Ballesteros MD [address] [place] [address] Specialty Service Secretary Cardiology 07/06/20 Adore Miller TOOLS PROGRAMMER.MEDIA RELATIONS DIRECTOR [address] [place] [address] Specialty Service Secretary Cardiology 07/09/20 Briana Leggett APRN.MEDIA RELATIONS DIRECTOR [address] [facility] [place] [address] Formerly [facility] Internal Medicine 04/15/24 Orthopaedic General Relationship Specialty Start Date End Date Koki Worthington MD [address] [facility] [place] [address] PCP - General Internal Medicine 09/09/17 Adore Miller TOOLS PROGRAMMER.MEDIA RELATIONS DIRECTOR [address] [place] [address] Specialty Service Secretary Cardiology 07/09/20 Briana Leggett TOOLS PROGRAMMER.MEDIA RELATIONS DIRECTOR [address] [facility] [place] [address] Lead Network Engineer Internal Medicine 04/15/24 Gio Holguin MD [address] [place] [address] Specialty Service Secretary Cardiology 11/07/24 Orthopaedic General Relationship Specialty Start Date End Date Koki Worthington MD [address] [place] [address] PCP - General Internal Medicine 09/09/17 Adore Miller, TOOLS PROGRAMMER.MEDIA RELATIONS DIRECTOR [address] [place] [address] Specialty Service Secretary Cardiology 07/09/20 Briana Leggett APRN.MEDIA RELATIONS DIRECTOR [address] [facility] [place] [address] Lead Network Engineer Internal Medicine 04/15/24 Gio Holguin MD [address] [place] [address] Specialty Service Secretary Cardiology 11/07/24 Orthopaedic General Relationship Specialty Start Date End Date Koki Worthington MD [address] [facility] [place] [address] PCP - General Internal Medicine 09/09/17 Adore Miller TOOLS PROGRAMMER.MEDIA RELATIONS DIRECTOR [address] [facility] [place] [address] Specialty Service Secretary Cardiology 07/09/20 Briana Leggett TOOLS PROGRAMMER.MEDIA RELATIONS DIRECTOR [address] [facility] [place] [address] Lead Network Engineer Internal Medicine 04/15/24 Gio Holguin MD [address] [facility] [address] [place], [place] [address] Specialty Service Secretary Cardiology 11/07/24 Orthopaedic General Relationship Specialty Start Date End Date Koki Worthington MD [address] [facility], [place] [id number] PCP - General Internal Medicine 09/09/17 Adore Miller APRN.MEDIA RELATIONS DIRECTOR [address] [facility] [address] [place], [place] [address] Specialty Service Secretary Cardiology 07/09/20 Briana Leggett APRN.MEDIA RELATIONS DIRECTOR [address] [facility], [place] [address] Lead Network Engineer Internal Medicine 04/15/24 [facility]io Hol[facility]in MD [address] [facility] [address], [place] [address] Specialty Service Secretary Cardiology 11/07/24 Team Status: Active Member Role/Relationship Status Dates Dr. Koki Worthington MD Primary Care Provider Active Team Status: Inactive Member Role/Relationship Status Dates Dr. Koki Worthington MD Primary Care Provider Active Start: October 19, 2024 End: October 19, 2024 Dr. Koki Worthington MD Referring Provider Active Start: October 19, 2024 End: October 19, 2024 Kailey DE LA GARZA, PA Attending Provider Active Start: October 19, 2024 End: October 19, 2024 Team Status: Inactive Member Role/Relationship Status Dates Dr. Koki Worthington MD Primary Care Provider Active Start: December 16, 2024 End: December 16, 2024 Dr. Aline Licona DO Emergency Provider Active S tart: December 16, 2024 End: December 16, 2024 Orthopaedic General Relationship Specialty Start Date End Date Koki Worthington MD [address] [facility], [place] [phone] PCP - General Internal Medicine 09/09/17 Andrez Ballesteros MD [address] [place] [address] Specialty Service Secretary Cardiology 07/06/20 11/06/24 Adore Miller TOOLS PROGRAMMER.MEDIA RELATIONS DIRECTOR [address] [place] [address] Specialty Service Secretary Cardiology 07/09/20 Briana Leggett APRN.MEDIA RELATIONS DIRECTOR [address] [facility] [place] [address] Lead Network Engineer Internal Medicine 04/15/24 Gio Holguin MD [address] [address] Specialty Service Secretary Cardiology 11/07/24 Orthopaedic General Relationship Specialty Start Date End Date Koki Worthington MD [address] [facility] [place] [address] PCP - General Internal Medicine 09/09/17 Adore Miller, TOOLS PROGRAMMER.MEDIA RELATIONS DIRECTOR [address] [place] [address] Specialty Service Secretary Cardiology 07/09/20 Briana Leggett TOOLS PROGRAMMER.MEDIA RELATIONS DIRECTOR [address] [facility] [place] [address] Lead Network Engineer Internal Medicine 04/15/24 Gio Holguin MD [address] [place] [address] Specialty Service Secretary Cardiology 11/07/24 Orthopaedic General Relationship Specialty Start Date End Date Kkoi Worthington MD [address] [place], [place] [id number] PCP - General Internal Medicine 09/09/17 Adore Miller APRN.MEDIA RELATIONS DIRECTOR [address] [phone] Specialty Service Secretary Cardiology 07/09/20 Briana Leggett APRN.MEDIA RELATIONS DIRECTOR [address] [place], [place] [address] Lead Network Engineer Internal Medicine 04/15/24 [facility] Holguin MD [address] [facility] [address] [place], [place] [id number] Specialty Service Secretary Cardiology 11/07/24 Goals (unrecognized section and content) [...] BE BASED ON THE PRIMARY CLINICAL RECORDS. Contractually. provides no warranty or guarantee of the accuracy or completeness of information in this document.
[2025-02-10] MEDS: 0.9% Normal Saline (1000mL) 1,000 ML 999 ML IV (13:32)
[2025-02-10 14:05] LABS: Anion Gap 14 (5-15); BUN 9 mg/dL (4-19); BUN/Creat Ratio 13.2 RATIO (10-20); Calcium,Total 9.7 mg/dL (7.6-11.0); Carbon Dioxide 22.1 mmol/L (21.0-32.0); Chloride 102 mmol/L (98-108); Estimated Creatinine Clearance 118.54 ml/min (50-250); Glucose 98 mg/dL (70-99); Potassium 4.1 mmol/L (3.3-5.1); Troponin T High Sensitivity < 6 ng/L (<=14)
[2025-02-10 15:06] VITALS: BP 150/87; PULSE 71; RESP 13; O2SAT 99
[2025-02-10 15:50] LABS: Troponin T High Sens 2 HR < 6 ng/L (<=14)
[2025-02-10 16:01] VITALS: BP 132/83; PULSE 60; RESP 16; TEMP 36.6; O2SAT 99
== END 2025-02-10 16:07 | disposition home or self-care (01) ==
PROVIDERS: Emergency Provider Emergency Medicine; PCP Internal Medicine; Visit Provider Emergency Medicine
DX: I49.3 Ventricular premature depolarization (principal); R06.02 Shortness of breath; I10 Essential (primary) hypertension; E78.5 Hyperlipidemia, unspecified; F17.210 Nicotine dependence, cigarettes, uncomplicated; Z79.899 Other long term (current) drug therapy
CPT/HCPCS: 71046; 80048; 84484; 85025; 93005; 96360; 96361; 99285; A4216